=== PATIENT | female | born 1945 | race Caucasian/White ===

== ENCOUNTER → 2018-08-03 08:09 | Outpatient (CLI) | payer MEDICARE, OTHER, SELFPAY ==
[2018-08-03 09:37] LABS: Hemoglobin A1c 7.3 % (4.2-6.3)
[2018-08-03 10:04] LABS: ALB/GLOB Ratio 0.9 RATIO (0.9-2.4); AST(SGOT) 17 U/L (15-37); Alanine Aminotransfer ALT/SGPT 20 U/L (13-56); Albumin, Serum 3.6 g/dL (3.2-5.0); Alkaline Phosphatase 85 U/L (45-117); Anion Gap 10 (5-15); BUN 20 mg/dL (7-18); BUN/Creat Ratio 19.2 RATIO (10-20); Chloride 97 mmol/L (98-107); Cholesterol 151 mg/dL (200); Creatinine, Serum 1.04 mg/dL (0.55-1.02); EST Glomerular Filtration Rate 55 mL/min (>60); Est Glom Filt Rate - Afr Amer 67 mL/min (>60); Globulin 4.1 g/dL (2.2-4.2); Glucose 189 mg/dL (74-106); High Density Lipoprotein 61 mg/dL; Potassium 4.4 mmol/L (3.5-5.1); Protein, Total 7.7 g/dL (6.4-8.2); Sodium Level 135 mmol/L (136-145); Triglycerides 162 mg/dL; Very Low Density Lipoprotein 32 mg/dL (5-40)
== END ==
PROVIDERS: Family Provider Preventive Medicine Occupational Medicine; PCP Preventive Medicine Occupational Medicine; Referring Provider Preventive Medicine Occupational Medicine; Visit Provider Preventive Medicine Occupational Medicine
DX: E78.5 Hyperlipidemia, unspecified (principal); E11.9 Type 2 diabetes mellitus without complications; I10 Essential (primary) hypertension
CPT/HCPCS: 36415; 80053; 80061; 83036

== ENCOUNTER → 2018-08-27 09:27 | Outpatient (CLI) | payer MEDICARE, OTHER, SELFPAY ==
--- NOTE | 2018-08-27 09:50 | RAD_ITS ---
STUDY: X-RAY - ESOPHAGUS (BARIUM SWALLOW) WITH FLUOROSCOPY REASON FOR EXAM: Female, 73 years old. This patient. TECHNIQUE: 12 view(s) of the esophagus were obtained following swallowing of barium. FLUOROSCOPY TIME (if supplied): (0:47) minutes/seconds COMPARISON: Comparison is made with prior examination dated February 13, 2017. FINDINGS: There is no demonstrated esophageal foreign body. There is no demonstrated stricture or mucosal abnormality. Normal gastroesophageal junction, without a demonstrated hiatal hernia. The patient ingested a 12 mm tablet of barium without any difficulty. There is atherosclerotic calcification of the aortic arch with tortuosity of the descending aorta. Normal visualized pulmonary parenchyma. Normal visualized osseous structures of the thorax. RAD/Esophagus Only IMPRESSION: Normal plain film x-ray examination (barium swallow) of the esophagus. Electronically Signed: Holden Cruz MD at 14:11 EST Tel [phone], Service support ,
== END ==
PROVIDERS: Family Provider Preventive Medicine Occupational Medicine; PCP Preventive Medicine Occupational Medicine; Referring Provider Internal Medicine Gastroenterology; Visit Provider Internal Medicine Gastroenterology
DX: R13.10 Dysphagia, unspecified (principal)
CPT/HCPCS: 74220

== ENCOUNTER → 2018-10-26 07:43 | Outpatient (CLI) | payer MEDICARE, OTHER, SELFPAY ==
--- NOTE | 2018-10-26 17:30 | MRI_ITS ---
STUDY: MRI BRAIN WITHOUT CONTRAST REASON FOR EXAM: Female, 73 years old. Confusion and headaches for 2 months TECHNIQUE: Standardized multiplanar fat and water weighted pulse sequences were obtained. COMPARISON: January 09, 2012 FINDINGS: Mild atrophy and minor periventricular white matter ischemic changes without evidence for acute infarct.. Normal bilateral basal ganglia. Normal thalami. There is no extra-axial fluid accumulation. Normal flow voids within the major intracranial circulation suggesting patency by spin echo criteria. Normal sella turcica, pituitary gland, infundibular stalk, optic chiasm and hypothalamus. Normal tectal plate and pineal gland. Normal midbrain, bria and medulla. Normal cerebellum. Normal basal cisterns. Normal bilateral temporal bones. Normal bilateral internal auditory canals. Postsurgical changes of the orbits.. Minor mucosal thickening of the ethmoid air cells bilaterally. Incidental finding of mild mucosal thickening of the petrous apex Normal visualized soft tissue structures. Normal visualized upper cervical spine. No significant changes since prior study MRI/Brain without Contrast IMPRESSION: Minor periventricular white matter ischemic changes without evidence for acute infarct. Electronically Signed: Todd Jain MD at 18:29 EST , Service support ,
== END ==
PROVIDERS: Family Provider Preventive Medicine Occupational Medicine; PCP Preventive Medicine Occupational Medicine; Referring Provider Preventive Medicine Occupational Medicine; Visit Provider Preventive Medicine Occupational Medicine
DX: R41.0 Disorientation, unspecified (principal)
CPT/HCPCS: 70551

== ENCOUNTER → 2019-11-09 08:21 | Outpatient (CLI) | payer MEDICARE, OTHER, SELFPAY ==
[2019-11-09 09:12] LABS: Hematocrit 37.3 % (37-47); Hemoglobin 11.2 g/dL (12.0-15.0); Mean Corpuscular Hgb 30.4 pg (27.0-32.0); Mean Corpuscular Volume 101.1 fL (81-99); Mean Platelet Vol. 10.2 fl (6.2-12.0); Platelet Count 206 K/mm3 (150-450); RBC Distribution Width SD 51.6 fl (35.1-43.9); Red Blood Count 3.69 M/mm3 (4.2-5.4); White Blood Count 5.1 K/mm3 (4.4-11.0)
[2019-11-09 09:53] LABS: Hemoglobin A1c 6.4 % (4.2-6.3)
[2019-11-09 09:54] LABS: ALB/GLOB Ratio 0.9 RATIO (0.9-2.4); AST(SGOT) 12 U/L (15-37); Alanine Aminotransfer ALT/SGPT 14 U/L (13-56); Albumin, Serum 3.6 g/dL (3.2-5.0); Alkaline Phosphatase 75 U/L (45-117); Anion Gap 8 (5-15); BUN 39 mg/dL (7-18); BUN/Creat Ratio 16.5 RATIO (10-20); Calcium,Total 9.3 mg/dL (8.5-10.1); Chloride 107 mmol/L (98-107); Cholesterol 137 mg/dL (200); Creatinine, Serum 2.36 mg/dL (0.55-1.02); EST Glomerular Filtration Rate 21 mL/min (>60); Est Glom Filt Rate - Afr Amer 26 mL/min (>60); Globulin 3.8 g/dL (2.2-4.2); Glucose 73 mg/dL (74-106); High Density Lipoprotein 58 mg/dL; Potassium 4.9 mmol/L (3.5-5.1); Protein, Total 7.4 g/dL (6.4-8.2); Sodium Level 140 mmol/L (136-145); Thyroid Stim Hormone (TSH) 3.03 uIU/mL (0.358-3.74); Triglycerides 153 mg/dL; Very Low Density Lipoprotein 31 mg/dL (5-40)
== END ==
PROVIDERS: PCP Preventive Medicine Occupational Medicine; Referring Provider Preventive Medicine Occupational Medicine; Visit Provider Preventive Medicine Occupational Medicine
DX: E11.9 Type 2 diabetes mellitus without complications (principal); E78.5 Hyperlipidemia, unspecified; I10 Essential (primary) hypertension; R53.83 Other fatigue
CPT/HCPCS: 36415; 80053; 80061; 82043; 82570; 83036; 84443; 85027

== ENCOUNTER → 2019-12-22 13:50 | Outpatient (CLI) | payer MEDICARE, OTHER, SELFPAY ==
[2019-12-22 18:09] LABS: Albumin, Serum 3.6 g/dL (3.2-5.0); BUN 23 mg/dL (7-18); BUN/Creat Ratio 10.6 RATIO (10-20); Calcium,Total 8.7 mg/dL (8.5-10.1); Chloride 98 mmol/L (98-107); Creatinine, Serum 2.16 mg/dL (0.55-1.02); EST Glomerular Filtration Rate 24 mL/min (>60); Est Glom Filt Rate - Afr Amer 29 mL/min (>60); Glucose 440 mg/dL (74-106); Phosphorus 3.5 mg/dL (2.5-4.9); Potassium 5.5 mmol/L (3.5-5.1); Sodium Level 131 mmol/L (136-145)
== END ==
PROVIDERS: PCP Preventive Medicine Occupational Medicine; Visit Provider Internal Medicine Nephrology
DX: N17.9 Acute kidney failure, unspecified (principal)
CPT/HCPCS: 36415; 80069

== ENCOUNTER → 2020-01-04 08:08 | Outpatient (CLI) | payer MEDICARE, OTHER, SELFPAY ==
--- NOTE | 2020-01-04 08:53 | US_ITS ---
STUDY: RENAL ULTRASOUND - COMPLETE REASON FOR EXAM: Female, 74 years old. ACUTE ON CHRONIC RENAL FAILURE TECHNIQUE: Ultrasound evaluation of the kidneys was performed with real-time and static currie-scale imaging. COMPARISON: None. FINDINGS: RIGHT KIDNEY: Normal location of the right kidney, which is normal in size. The right kidney measures 10.5 cm x 5 cm x 4.4 cm. There is a normal cortex of the right kidney. The renal cortex measures 1.3 cm. There is no right renal mass or cyst. There are no right renal calculi. There is no right hydronephrosis. DISTAL RIGHT URETER: There is non-visualization of the distal right ureter. There is no demonstrated right ureterovesical junction calculus. There is no demonstrated right ureteral jet. LEFT KIDNEY: Normal location of the left kidney, which is normal in size. The left kidney measures 10.7 cm x 5.7 cm x 5.0 cm. There is a normal cortex of the left kidney. The renal cortex measures 1.3 cm. There is no left renal mass or cyst. There are no left renal calculi. There is no left hydronephrosis. DISTAL LEFT URETER: There is non-visualization of the distal left ureter. There is no demonstrated left ureterovesical junction calculus. There is no demonstrated left ureteral jet. BLADDER: The urinary bladder is not adequately distended for adequate visualization. US/Kidney and Bladder IMPRESSION: Normal ultrasound of the kidneys and urinary bladder. Electronically Signed: Holden Cruz, at 10:51 EDT , Service support ,
[2020-01-04 09:26] LABS: Anion Gap 9 (5-15); BUN 27 mg/dL (7-18); BUN/Creat Ratio 12.9 RATIO (10-20); Calcium,Total 9.3 mg/dL (8.5-10.1); Chloride 94 mmol/L (98-107); EST Glomerular Filtration Rate 25 mL/min (>60); Est Glom Filt Rate - Afr Amer 30 mL/min (>60); Glucose 398 mg/dL (74-106); Potassium 4.6 mmol/L (3.5-5.1); Sodium Level 130 mmol/L (136-145)
== END ==
PROVIDERS: PCP Preventive Medicine Occupational Medicine; Referring Provider Internal Medicine Nephrology; Visit Provider Internal Medicine Nephrology
DX: N17.9 Acute kidney failure, unspecified (principal); E87.5 Hyperkalemia
CPT/HCPCS: 36415; 76770; 80048

== ENCOUNTER 2020-01-16 17:24 | Inpatient (IN) | payer MEDICARE, OTHER, SELFPAY ==
[2020-01-16] VITALS (7 sets, daily range): BP systolic 114–213; BP diastolic 79–100; PULSE 95–105; RESP 16–18; TEMP 36.5–37.1; O2SAT 93–99; BMI 30.9; BMI 30.8
[2020-01-16 18:27] LABS: Bacteria 0 SEEN /hpf (None Seen); Mucous, Urine 0 SEEN /hpf (<or=2+); Red Blood Cells-Urine 0 SEEN /hpf (0-5); White Blood Cells 0 SEEN /hpf (0-5)
[2020-01-16 18:28] LABS: Absolute Lymphocyte Count 0.93 X10^3/uL (0.83-4.51); Absolute Neutrophil Count 7.2 X10^3/uL (2.0-7.7); Basophil# 0.03 X10^3/uL; Basophil% 0.3 % (0-1); Eosinophil# 0.11 X10^3/uL; Eosinophils% 1.2 % (0-5); Hematocrit 36.1 % (37-47); Hemoglobin 11.5 g/dL (12.0-15.0); Lymphocyte # 0.93 X10^3/ul (4.0); Lymphocyte % 10.4 % (19-41); Mean Corp Hgb Conc 31.9 g/dL (32-36); Mean Corpuscular Volume 97.3 fL (81-99); Mean Platelet Vol. 10.1 fl (6.2-12.0); Monocyte# 0.64 X10^3/uL; Monocyte% 7.1 % (0-10); NRBC Flagged by Analyzer 0 % (0-5); Neutrophil # 7.21 X10^3/uL (2.7-7.7); Neutrophil % 80.6 % (47-70); Platelet Count 214 K/mm3 (150-450); RBC Distribution Width CV 12.3 % (11.6-14.6); RBC Distribution Width SD 43.8 fl (35.1-43.9); Red Blood Count 3.71 M/mm3 (4.2-5.4)
[2020-01-16 18:39] LABS: Anion Gap 8 (5-15); BUN 23 mg/dL (7-18); BUN/Creat Ratio 11.4 RATIO (10-20); Calcium,Total 8.5 mg/dL (8.5-10.1); Chloride 85 mmol/L (98-107); Creatinine, Serum 2.01 mg/dL (0.55-1.02); EST Glomerular Filtration Rate 26 mL/min (>60); Est Glom Filt Rate - Afr Amer 31 mL/min (>60); Estimated Creatinine Clearance 24.24 ml/min; Glucose 224 mg/dL (74-106); Sodium Level 121 mmol/L (136-145)
[2020-01-16 18:51] LABS: Color, Urine Yellow (Yellow); Glucose, Dipstick 100 mg/dl (Normal); Ketone-Dipstick Negative (Negative); Leukocyte Esterase-Dipstick 25 /ul (Negative); Nitrite-Dipstick Negative (Negative); Occult Blood-Urine Negative /ul (Negative); Protein-Dipstick 15 mg/dl (Negative); Specific Gravity, Urine 1.005 (1.002-1.030); Urine Bilirubin Dipstick Negative (Negative); Urine Clarity Clear (Clear); Urine Urobilinogen Normal (Normal)
--- NOTE | 2020-01-16 19:11 | ED.DCSUM_ITS ---
- ER Visit Summary Date of Service: 01/16/20 Chief Complaint: Decreased urine output History of Present Illness: The patient is a 74 F with decreased urine output for several weeks. Her PCP told her she might end up on dialysis if she has continued kidney issues. She has no other associated symptoms currently. History of hypertension, hyperlipidemia, diabetes, GERD, COPD. Physical Examination: 213/100 otherwise vitals unremarkable. Alert and oriented. No acute distress. Otherwise exam normal. Test Results: Hemoglobin 11.5, sodium 121, chloride 85, glucose 224, BUN 23, creatinine 2.01. Urinalysis micro is still pending. Emergency Department Course and Treatment: Patient presents with chronic kidney disease and decreased urine output. Her BUN and creatinine were stable but her sodium was low, 121. Her previous low was 126. She has no other associated symptoms. She will need hospitalization and further evaluation. Hospitalist was contacted. Treatment Plan: As above Disposition: Admission Impression: CKD, hyponatremia This note was generated with [employer] dictation software. It may contain incorrect words, spelling, and punctuation that were not noted in review of the chart prior to signing ED Disposition - Plan for ED Patient: Referrals: Grady Mcekon DO [Primary Care Provider] -
--- NOTE | 2020-01-16 19:14 | HP.PCM_ITS ---
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 Diabetes mellitus complication status: with kidney complications (3) Hypertension Status: Chronic Qualifiers: Hypertension type: essential hypertension Qualified Code(s): I10 - Essential (primary) hypertension (4) Depression Status: Chronic Qualifiers: Depression Type: unspecified Qualified Code(s): F32.9 - Major depressive disorder, single episode, unspecified (5) CKD stage 4 due to type 1 diabetes mellitus Status: Chronic History of Present Illness Date of Admission: 01/16/20 Chief Complaint: Poor urine output - 1 and half weeks The patient is a 74 year old F with past medical history of CKD stage IV, follows with Dr. Jane Jay in the outpatient, hypertension, type II DM, depression who comes in with complains of poor urine output noted over the past 1 and half weeks. Patient, last saw Dr. Jay in December and a renal ultrasound was negative. She comes in because she has had very little urine output today. She denied any chest pain or dizziness or shortness of breath. She has a cough which feels like her allergies. No sick contact, no fevers or respiratory symptoms such as shortness of breath. Vitals in the ED showed temperature of 98.4F, heart rate 105, blood pressure was 213/100, respiratory rate was 17, SPO2 is 93% on room air. Her WBC is 9.0, Hb 11.5, Plt 214. Sodium was 121, down from 130, Potassium 5.0, chloride 85, bicarbonate 28, BUN 23, creatinine was 2.01 which was about her baseline. UA was unremarkable except for glucosuria. Past Medical History Past Medical History (Chronic Problems): Chronic Problems Diabetes mellitus (Chronic) Hypertension (Chronic) Depression (Chronic) CKD stage 4 due to type 1 diabetes mellitus (Chronic) Allergies No Known Allergies Allergy (Verified 01/16/20 17:26) Home Medications: Ambulatory Orders Medication Instructions Recorded Aspirin [Aspirin, Baby] 81 mg PO DAILY@0800 12/27/16 Bupropion HCl [Bupropion HCl Sr] 150 mg PO BID 12/27/16 Clopidogrel Bisulfate [Clopidogrel] 75 mg PO DAILY 12/27/16 Cyanocobalamin (Vitamin B-12) 1,000 mg PO DAILY 12/27/16 [Vitamin B-12] Ferrous Sulfate 140 mg PO DAILY 12/27/16 Glimepiride [Amaryl] 2 mg PO DAILY 12/27/16 Lovastatin 40 mg PO QHS 12/27/16 Montelukast [Singulair] 10 mg PO DAILY 12/27/16 Nabumetone [Relafen] 1,500 mg PO DAILY PRN 12/27/16 Pantoprazole Sodium [Protonix] 40 mg PO DAILY 12/27/16 Pioglitazone [Actos] 30 mg PO DAILY 12/27/16 Ranitidine [Zantac] 150 mg PO DAILY 12/27/16 Tiotropium [place] [Spiriva] 1 puff INHALATION DAILY 12/27/16 Trazodone HCl 150 mg PO QHS 12/27/16 Venlafaxine HCl [Venlafaxine HCl 225 mg PO DAILY 12/27/16 ER] metFORMIN HCl [Glucophage] 1,000 mg PO BID 12/27/16 metFORMIN HCl [Glucophage] 500 mg PO 1200 12/27/16 Albuterol Inhaler [Ventolin Hfa] 1 - 2 puff INHALATION Q4H PRN PRN 12/30/16 #1 inhaler Amlodipine [Norvasc] 2.5 mg PO DAILY #30 tablet 12/30/16 Docusate Sodium [Colace] 200 mg PO BID PRN PRN #30 capsule 12/30/16 Guaifenesin [Mucinex] 1,200 mg PO BID #14 tablet 12/30/16 Lidocaine [Lidoderm Patch] 1 patch TOPICAL DAILY #7 patch 12/30/16 Oxycodone HCl/Acetaminophen 1 tablet PO Q6H PRN PRN #10 tablet 12/30/16 [Percocet 5/325] Surgical History: - - in 1967 had iud infection with removal later 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 Denies: Anorexia, Chills, Fever, Malaise, Weakness, Weight Change Eyes: Denies: Blurred vision, Cataracts, Conjunctivae Inflammation, Pain, Redn ess, Vision Change HEENT: Denies: Difficulty Hearing, Difficulty Swallowing, Head Aches, Hearing Changes, Sinus Congestion, Sinus Drainage Cardiovascular: Denies: Chest Pain, Claudication, Orthopnea, Palpitations, Paroxysmal Noc. Dyspnea Respiratory: Reports: Cough. Denies: Hemoptysis, Shortness of breath at rest, Shortness of breath upon exertion, Sputum production Gastrointestinal: Denies: Abdominal Pain, Constipation, Hematemesis, Hematochezia, Nausea, Vomiting Genitourinary: Reports: - - poor urine output. Denies: Dysuria, Frequency Musculoskeletal: Denies: Joint Pain, Joint stiffness, Joint swelling, Joint Tenderness Skin: Denies: Rash, Wounds Neurological: Denies: Difficulty swallowing, Focal weakness, Numbness, Tingling Psychiatric: Denies: Anxiety, Depression, Homicidal Ideations, Suicidal Ideations Hematologic/ Lymphatic: Denies: Easy Bruising, Easy Bleeding VTE Information - Inpt Only VTE Present on Admission: No VTE Pharm Prophylaxis ordered?: Yes Patient Problems: Active and Suspected Problems Hyponatremia (Acute) - Physical Exam Vitals/I&O's: Vital Signs Temp Pulse Resp BP Pulse Ox 98.8 F 99 18 170/79 H 99 01/16/20 18:20 01/16/20 18:20 01/16/20 18:20 01/16/20 18:20 01/16/20 18:20 Oxygen Flow Rate (L/min) 3 Oxygen Delivery Method Nasal Cannula Weight: 89.4 kg Body Mass Index (BMI) 30.9 General: Alert, Oriented x3, Cooperative, No apparent distress HEENT: Atraumatic, PERRLA, EOMI, Normocephalic Oral: Moist Mucosa Neck: Supple Lungs: Clear to auscultation, Normal air movement Cardiovascular: Regular rate, Regular Rhythm, Normal S1, Normal S2, No murmurs Abdomen: Bowel Sounds Present, Soft, Non Tender, Non-Distended, No Hepato- splenomegaly Extremities: No edema Skin: No rashes, No breakdown Musculoskeletal: No Tenderness to Palpation of Joints or Extremities Lymphatic: No Cervical, Supraclavicular, or Inguinal Adenopathy Neurological: Cranial nerves II-XII grossly intact, Neuro grossly intact Psych/Mental Status: Normal Affect, Appropriate Laboratory Results 01/16/20 18:10: Urine Color Yellow, Urine Clarity Clear, Urine pH 7.0, Ur Specific [place] 1.005, Urine Protein 15 H, Urine Glucose (UA) 100 H, Urine Ketones Negative, Urine Occult Blood Negative, Urine Nitrite Negative, Urine Bilirubin Negative, Urine Urobilinogen Normal, Ur Leukocyte Esterase 25 H, Urine RBC Pending, Urine WBC Pending, Ur Squamous Epith Cells Pending, Urine Bacteria Pending, Urine Mucus Pending 01/16/20 18:16: WBC 9.0, RBC 3.71 L, Hgb 11.5 L, Hct 36.1 L, MCV 97.3, MCH 31.0, MCHC 31.9 L, RDW Std Deviation 43.8, RDW Coeff of Tessa 12.3, Plt Count 214, MPV 10.1, Immature Gran % (Auto) 0.400, Neut % (Auto) 80.6 H, Lymph % (Auto) 10.4 L, [place] % (Auto) 7.1, Eos % (Auto) 1.2, Baso % (Auto) 0.3, Absolute Neuts (auto) 7.2, Absolute Lymphs (auto) 0.93, Nucleated RBC % 0 01/16/20 18:16: Sodium 121 L, Potassium 5.0, Chloride 85 L, Carbon Dioxide 28.0, Anion Gap 8, BUN 23 H, Creatinine 2.01 H, Estim Creat Clear Calc 24.24, Est GFR (MDRD) Af Amer 31 L, Est GFR (MDRD) Non-Af 26 L, BUN/Creatinine Ratio 11.4, Gluc ose 224 H, Calcium 8.5 Assessment/Plan All Active Problems Hyponatremia (Acute) fall with rib pain (Acute) Bronchitis (Acute) 74 year old F with past medical history of CKD stage IV, follows with Dr. Jane Jay in the outpatient, hypertension, type II DM, depression who comes in with complains of poor urine output noted over the past 1 and half weeks. 1. Hyponatremia, admitting sodium is 121; serum sodium in December 2019 was 130 Associated with poor urine output, likely hypovolemic Recent renal ultrasound was unremarkable Will check a bladder scan Will check urine sodium, urine osmolarity, urine sodium, urine creatinine 2. CKD stage IV, Cr is 2.01, about the same, Nephrology consulted 3. Hypertension, initially elevated, likely due to anxiety, Controlled during cause of stay in ED Will continue home medications 4. Type DM, will hold home meds Continue on blood glucose checks with ISS 5. Depression, controlled, continue with home medications 6. DVT PPx -Lovenox Inpatient E&M: 63428 Init Hosp L2
[2020-01-16 19:16] LABS: Squamous Epithelial Cells - UA 0-5 SEEN /hpf (5-10)
--- NOTE | 2020-01-16 19:40 | RAD_ITS ---
HISTORY: cough, hyponatremia EXAM: XR Chest 1 View: COMPARISON: December 28, 2016 FINDINGS: # of images incl. 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 Lungs are adequately expanded. Some linear airspace disease at the left lung base is similar to the previous study and likely represents scar Heart is not enlarged. No acute osseous pathology perceived. Pulmonary vascularity is distinct. No effusions. RAD/Chest 1 View (Portable) IMPRESSION: No acute cardiopulmonary disease perceived. at 1956 Reported and signed by: Sarthak Kurtz MD Electronically Signed: Sarthak Kurtz MD at 19:56 EDT Tel , Service support ,
[2020-01-16 20:36] LABS: Osmolality, Serum 269 mOsm/KG (280-301)
[2020-01-16] MEDS: 0.9% Normal Saline 1,000 ML 75 ML IV (20:39)
[2020-01-16 20:53] LABS: Urine Sodium 27 mmol/L (Not Establ.)
[2020-01-16 21:20] LABS: Osmolality, Urine 144 mOsm/KG
[2020-01-16] MEDS: traZODone 50 MG Tablet 150 MG PO (22:04)
[2020-01-16] MEDS: Insulin Lispro 100 UNIT/ML INSULN.PEN SC (22:04)
[2020-01-16] MEDS: buPROPion (SR) 150 MG Tablet.SA PO (22:04)
[2020-01-16] MEDS: Montelukast 10 MG Tablet PO (22:04)
[2020-01-16 22:41] LABS: Bedside Glucose 229 mg/dL (70-110)
[2020-01-17] VITALS (12 sets, daily range): BP systolic 142–156; BP diastolic 59–73; PULSE 78–105; RESP 14–20; TEMP 36.6–36.8; O2SAT 95–98
--- NOTE | 2020-01-17 04:34 | NURSING ---
Completed straight cath at 0300 per orders. 1500 ml urine out. Pt tolerated procedure well. Raina,RN
[2020-01-17 06:04] LABS: Absolute Lymphocyte Count 1.26 X10^3/uL (0.83-4.51); Absolute Neutrophil Count 4.4 X10^3/uL (2.0-7.7); Basophil# 0.02 X10^3/uL; Basophil% 0.3 % (0-1); Eosinophil# 0.16 X10^3/uL; Eosinophils% 2.4 % (0-5); Hematocrit 34.6 % (37-47); Hemoglobin 11.2 g/dL (12.0-15.0); Lymphocyte # 1.26 X10^3/ul (4.0); Lymphocyte % 19.2 % (19-41); Mean Corp Hgb Conc 32.4 g/dL (32-36); Mean Corpuscular Hgb 31.5 pg (27.0-32.0); Mean Corpuscular Volume 97.2 fL (81-99); Mean Platelet Vol. 10.1 fl (6.2-12.0); Monocyte# 0.69 X10^3/uL; Monocyte% 10.5 % (0-10); NRBC Flagged by Analyzer 0 % (0-5); Neutrophil # 4.39 X10^3/uL (2.7-7.7); Neutrophil % 67.1 % (47-70); Platelet Count 193 K/mm3 (150-450); RBC Distribution Width CV 12.2 % (11.6-14.6); RBC Distribution Width SD 43.9 fl (35.1-43.9); Red Blood Count 3.56 M/mm3 (4.2-5.4); White Blood Count 6.6 K/mm3 (4.4-11.0)
[2020-01-17] MEDS: Insulin Lispro 100 UNIT/ML INSULN.PEN SC ×4 (06:31→22:39)
[2020-01-17 06:33] LABS: ALB/GLOB Ratio 0.9 RATIO (0.9-2.4); AST(SGOT) 17 U/L (15-37); Alanine Aminotransfer ALT/SGPT 14 U/L (13-56); Alkaline Phosphatase 97 U/L (45-117); Anion Gap 7 (5-15); BUN 22 mg/dL (7-18); BUN/Creat Ratio 12.9 RATIO (10-20); Calcium,Total 8.2 mg/dL (8.5-10.1); Chloride 96 mmol/L (98-107); EST Glomerular Filtration Rate 31 mL/min (>60); Est Glom Filt Rate - Afr Amer 38 mL/min (>60); Estimated Creatinine Clearance 28.66 ml/min; Globulin 3.4 g/dL (2.2-4.2); Glucose 172 mg/dL (74-106); Potassium 4.2 mmol/L (3.5-5.1); Protein, Total 6.4 g/dL (6.4-8.2); Sodium Level 130 mmol/L (136-145)
[2020-01-17 06:35] LABS: Bedside Glucose 180 mg/dL (70-110)
[2020-01-17] MEDS: Ipratropium 0.5 MG/2.5 ML SOLUTION INHALATION ×3 (07:16→18:52)
[2020-01-17] MEDS: Ferrous Sulfate 325 MG Tablet 650 MG PO (08:22)
[2020-01-17] MEDS: Aspirin 81 MG TAB.CHEW PO (08:22)
[2020-01-17] MEDS: Lactulose 20 GM/30 ML UDC 30 GM PO ×2 (09:35→11:03)
[2020-01-17] MEDS: 0.9% Normal Saline 1,000 ML 75 ML IV (09:38)
[2020-01-17] MEDS: Venlafaxine XR 75 MG Capsule 225 MG PO (09:38)
[2020-01-17] MEDS: Enoxaparin 30 MG/0.3 ML Syringe SC (09:38)
[2020-01-17] MEDS: amLODIPine 2.5 MG Tablet PO (09:38)
[2020-01-17] MEDS: Clopidogrel Bisulfate 75 MG Tablet PO (09:39)
[2020-01-17] MEDS: buPROPion (SR) 150 MG Tablet.SA PO ×2 (09:39→22:40)
[2020-01-17] MEDS: Cyanocobalamin 500 MCG Tablet 1000 MCG PO (09:39)
--- NOTE | 2020-01-17 10:13 | PN_ITS ---
Patient Problems: Active and Suspected Problems Hyponatremia (Acute) Subjective: Patient was seen and examined today, nursing approached me today and stated that the patient was retaining urine again, I have decided to place a Bangura in the patient and place her on Flomax. Patient states she drinks a great deal of water at home-she indicated to this examiner at least 6-24 ounce bottles of water. Patient's sodium today was 130, creatinine is now 1.7. - Physical Exam Vitals/I&O's: Vital Signs Temp Pulse Resp BP Pulse Ox 98.0 F 93 16 156/63 H 98 01/17/20 08:20 01/17/20 08:20 01/17/20 08:20 01/17/20 08:20 01/17/20 08:20 Oxygen Flow Rate (L/min) 3 Oxygen Delivery Method Nasal Cannula Weight: 87.3 kg Body Mass Index (BMI) 30.8 Intake and Output for Last 24 Hours 01/15/20 01/16/20 01/17/20 23:59 23:59 23:59 Intake Total 480 / 480 1213.75 / 1213.75 Output Total 300 / 300 1900 / 1900 Balance 180 / 180 -686.25 / -686.25 General: Alert, Oriented x3, Cooperative, No apparent distress, Well developed HEENT: Atraumatic, PERRLA, EOMI, Normocephalic Oral: Moist Mucosa Neck: Supple, No JVD, Trachea Midline, Thyroid Normal Size and Texture Lungs: Clear to auscultation, Normal air movement, No rhonchi, No wheeze Cardiovascular: Regular rate, Regular Rhythm, Normal S1, Normal S2, No murmurs, PMI Normal, No rub noted, No Gallop Abdomen: Bowel Sounds Present, Soft, Non Tender, Non-Distended Extremities: No clubbing, No cyanosis, No edema, Capillary Refill Less than 3 Seconds Skin: No rashes, No breakdown Musculoskeletal: No Tenderness to Palpation of Joints or Extremities Neurological: Cranial nerves II-XII grossly intact, Neuro grossly intact, Sensory exam intact to light touch and pain, Coordination normal Psych/Mental Status: Normal Affect, Appropriate, Alert and oriented to time, place, person, mood and affect Laboratory Results 01/16/20 18:10: Urine Color Yellow, Urine Clarity Clear, Urine pH 7.0, Ur Specific [place] 1.005, Urine Protein 15 H, Urine Glucose (UA) 100 H, Urine Ketones Negative, Urine Occult Blood Negative, Urine Nitrite Negative, Urine Bilirubin Negative, Urine Urobilinogen Normal, Ur Leukocyte Esterase 25 H, Urine RBC 0 SEEN, Urine WBC 0 SEEN, Ur Squamous Epith Cells 0-5 SEEN, Urine Bacteria 0 SEEN, Urine Mucus 0 SEEN 01/16/20 18:16: WBC 9.0, RBC 3.71 L, Hgb 11.5 L, Hct 36.1 L, MCV 97.3, MCH 31.0, MCHC 31.9 L, RDW Std Deviation 43.8, RDW Coeff of Tessa 12.3, Plt Count 214, MPV 10.1, Immature Gran % (Auto) 0.400, Neut % (Auto) 80.6 H, Lymph % (Auto) 10.4 L, [place] % (Auto) 7.1, Eos % (Auto) 1.2, Baso % (Auto) 0.3, Absolute Neuts (auto) 7.2, Absolute Lymphs (auto) 0.93, Nucleated RBC % 0 01/16/20 18:16: Sodium 121 L, Potassium 5.0, Chloride 85 L, Carbon Dioxide 28.0, Anion Gap 8, BUN 23 H, Creatinine 2.01 H, Estim Creat Clear Calc 24.24, Est GFR (MDRD) Af Amer 31 L, Est GFR (MDRD) Non-Af 26 L, BUN/Creatinine Ratio 11.4, Glucose 224 H, Calcium 8.5 01/16/20 18:16: Serum Osmolality 269 L 01/16/20 20:33: Ur Random Sodium 27 01/16/20 20:33: Urine Osmolality 144, Urine Creatinine 16.30 01/16/20 22:01: POC Glucose 229 H 01/17/20 05:30: WBC 6.6, RBC 3.56 L, Hgb 11.2 L, Hct 34.6 L, MCV 97.2, MCH 31.5, MCHC 32.4, RDW Std Deviation 43.9, RDW Coeff of [place] 12.2, Plt Count 193, MPV 10.1, Immature Gran % (Auto) 0.500, Neut % (Auto) 67.1, Lymph % (Auto) 19.2, [place] % (Auto) 10.5 H, Eos % (Auto) 2.4, Baso % (Auto) 0.3, Absolute Neuts (auto) 4.4, Absolute Lymphs (auto) 1.26, Nucleated RBC % 0 01/17/20 05:30: Sodium 130 L, Potassium 4.2, Chloride 96 L, Carbon Dioxide 27.0, Anion Gap 7, BUN 22 H, Creatinine 1.70 H, Estim Creat Clear Calc 28.66, Est GFR (MDRD) Af Amer 38 L, Est GFR (MDRD) Non-Af 31 L, BUN/Creatinine Ratio 12.9, Glucose 172 H, Calcium 8.2 L, Total Bilirubin 0.20, AST 17, ALT 14, Alkaline Phosphatase 97, Total Protein 6.4, Albumin 3.0 L, Globulin 3.4, Albumin/Globulin Ratio 0.9 01/17/20 06:30: POC Glucose 180 H Current Medications Acetaminophen (Tylenol) 650 mg PO Q6H PRN PRN PRN Reason: Pain Score 1-10/Temp > 100.7 F Amlodipine Besylate (Norvasc) 2.5 mg PO DAILY [facility] Last Admin: 01/17/20 09:38 Dose: 2.5 mg Documented by: Aspirin (Aspirin, Baby) 81 mg PO DAILY@0800 [facility] Last Admin: 01/17/20 08:22 Dose: 81 mg Documented by: Bupropion HCl (Wellbutrin Sr (150mg Tablets)) 150 mg PO BID [facility] Last Admin: 01/17/20 09:39 Dose: 150 mg Documented by: Clopidogrel Bisulfate (Plavix) 75 mg PO DAILY [facility] Last Admin: 01/17/20 09:39 Dose: 75 mg Documented by: Cyanocobalamin (Vitamin B12) 1,000 mcg PO DAILY [facility] Last Admin: 01/17/20 09:39 Dose: 1,000 mcg Documented by: Dextrose (D50w Syringe) 0 gm IV X1 PRN; Protocol PRN Reason: Hypoglycemia Enoxaparin Sodium (Lovenox) 30 mg SC DAILY [facility] Last Admin: 01/17/20 09:38 Dose: 30 mg Documented by: Ferrous Sulfate (Ferrous Sulfate) 650 mg PO DAILYCM [facility] Last Admin: 01/17/20 08:22 Dose: 650 mg Documented by: Glucagon () 1 mg IM .X1 PRN PRN Reason: Hypoglycemia Sodium Chloride () 1,000 mls @ 75 mls/hr IV .[id number] [facility] Stop: 01/17/20 15:46 Last Admin: 01/17/20 09:38 Dose: 75 mls/hr Documented by: Insulin Human Lispro (Humalog Kwikpen (Bkc)) 0 unit SC ACHS [facility]; Protocol Last Admin: 01/17/20 06:31 Dose: 1 units Documented by: Ipratropium [place] (Atrovent) 0.5 mg INHALATION Q6HWA.RT [facility] Last Admin: 01/17/20 07:16 Dose: 0.5 mg Documented by: Lactulose (Chronulac, Cephulac) 30 gm PO X1 ONE Stop: 01/17/20 11:31 Montelukast Sodium (Singulair) 10 mg PO QHS [facility] Last Admin: 01/16/20 22:04 Dose: 10 mg Documented by: Ondansetron HCl (Zofran) 4 mg IV Q8H PRN PRN PRN Reason: NAUSEA/VOMITING Sodium Chloride () 10 - 40 ml IV UD PRN PRN Reason: SALINE FLUSH Tamsulosin HCl (Flomax) 0.8 mg PO DAILY@1730 [facility] Trazodone HCl (Desyrel) 150 mg PO QHS [facility] Last Admin: 01/16/20 22:04 Dose: 150 mg Documented by: Venlafaxine HCl (Effexor Xr) 225 mg PO DAILY [facility] Last Admin: 01/17/20 09:38 Dose: 225 mg Documented by: Medical Necessity - Tobacco Use Smoking Status: Former smoker Assessment/Plan All Active Problems Hyponatremia (Acute) fall with rib pain (Resolved) Bronchitis (Resolved) #1 hyponatremia-possibly secondary to excessive water intake, continue present treatment at this time, nephrology will be seeing patient #2 chronic kidney disease stage III secondary to type 2 diabetes #3 type 2 diabetes-continue to monitor blood sugars #4 cerebrovascular disease-patient states that she has had a past history of a stroke, patient takes Plavix and aspirin #5 urinary retention-etiology unclear, I have placed the patient on Flomax, her Bangura will remain in at this time #6 chronic depression #7 chronic hypoxic respiratory failure secondary to COPD #8 COPD Inpatient E&M: [id number] [facility] Hosp L2
[2020-01-17 11:40] LABS: Bedside Glucose 434 mg/dL (70-110)
--- NOTE | 2020-01-17 11:56 | PCM.CONS.R ---
Consultation - Renal 01/17/20 PCP/ Referring MD: Requesting physician: Dr Ribeiro Primary care physician: Grady Mckeon DO Reason for Consultation:: hyponatremia, BENITO on ckd stage 3 - History of Present Illness History of Present Illness: The patient is a 74 year old F seen on initial consult in office on 12/22/19 for BENITO on CKD stage 3 admitted for decreased urine output for 4-5 days prior to admit. She has baseline creatinine 1.0 in 2018 increased to 2.36 on 11/09/19. Renal US from 01/05 did not show hydronephrosis. Sugars were elevated as outpt with thirst, urinary frequency, blurred vision. She was instructed to stop her nabumetone and meformin and f/u with pcp regarding elevatede sugars. Sodium was 130 on 01/03 with BS 398. Sodium down to 121 on admit improved to 130 today with saline drip. She admit to burning with urination. Denied fever, chills, change in appetite. Denies cough, shortness of breath but wears portable oxygen chronically. She has DM2, HTN, HPL, COPD and TIA x3. Her memory is poor. Creatinine on admit 2.0 down to 1.7 today with iv hydration. She has an indwelling bernstein for high residual of 1500cc with straight cath urine. - Allergies Allergies: Allergies No Known Allergies Allergy (Verified 01/16/20 17:26) - Current Medications Current Medications: Current Medications Acetaminophen (Tylenol) 650 mg PO Q6H PRN PRN PRN Reason: Pain Score 1-10/Temp > 100.7 F Amlodipine Besylate (Norvasc) 2.5 mg PO DAILY [facility] Last Admin: 01/17/20 09:38 Dose: 2.5 mg Documented by: Aspirin (Aspirin, Baby) 81 mg PO DAILY@0800 [facility] Last Admin: 01/17/20 08:22 Dose: 81 mg Documented by: Bupropion HCl (Wellbutrin Sr (150mg Tablets)) 150 mg PO BID [facility] Last Admin: 01/17/20 09:39 Dose: 150 mg Documented by: Clopidogrel Bisulfate (Plavix) 75 mg PO DAILY [facility] Last Admin: 01/17/20 09:39 Dose: 75 mg Documented by: Cyanocobalamin (Vitamin B12) 1,000 mcg PO DAILY [facility] Last Admin: 01/17/20 09:39 Dose: 1,000 mcg Documented by: Dextrose (D50w Syringe) 0 gm IV X1 PRN; Protocol PRN Reason: Hypoglycemia Enoxaparin Sodium (Lovenox) 30 mg SC DAILY [facility] Last Admin: 01/17/20 09:38 Dose: 30 mg Documented by: Ferrous Sulfate (Ferrous Sulfate) 650 mg PO DAILYCM [facility] Last Admin: 01/17/20 08:22 Dose: 650 mg Documented by: Glucagon () 1 mg IM .X1 PRN PRN Reason: Hypoglycemia Sodium Chloride () 1,000 mls @ 75 mls/hr IV .[id number] [facility] Stop: 01/17/20 15:46 Last Admin: 01/17/20 09:38 Dose: 75 mls/hr Documented by: Insulin Human Lispro (Humalog Kwikpen (Bkc)) 0 unit SC ACHS [facility]; Protocol Last Admin: 01/17/20 11:02 Dose: 4 units Documented by: Ipratropium [place] (Atrovent) 0.5 mg INHALATION Q6HWA.RT [facility] Last Admin: 01/17/20 07:16 Dose: 0.5 mg Documented by: Montelukast Sodium (Singulair) 10 mg PO QHS [facility] Last Admin: 01/16/20 22:04 Dose: 10 mg Documented by: Ondansetron HCl (Zofran) 4 mg IV Q8H PRN PRN PRN Reason: NAUSEA/VOMITING Sodium Chloride () 10 - 40 ml IV UD PRN PRN Reason: SALINE FLUSH Tamsulosin HCl (Flomax) 0.8 mg PO DAILY@1730 [facility] Trazodone HCl (Desyrel) 150 mg PO QHS [facility] Last Admin: 01/16/20 22:04 Dose: 150 mg Documented by: Venlafaxine HCl (Effexor Xr) 225 mg PO DAILY [facility] Last Admin: 01/17/20 09:38 Dose: 225 mg Documented by: - Past Medical History Past Medical History (Chronic Problems): Chronic Problems Diabetes mellitus (Chronic) Hypertension (Chronic) Depression (Chronic) CKD stage 4 due to type 1 diabetes mellitus (Chronic) - Past Surgical History Surgical History: - - in 1968 had iud infection with removal later - Social History Smoking Status: Former smoker - Family History Maternal History Items: Diabetes, Heart Disease Sibling History Items: - - sister with back cancer Paternal History Items: Diabetes, Heart Disease Review of Systems Constitutional: Reports: Weakness. Denies: Anorexia, Chills, Fever Eyes: Reports: Vision Change - recent blurred vision with elevated sugars HEENT: Denies: Head Aches Cardiovascular: Denies: Chest Pain, Syncope Respiratory: Reports: - - wears portable oxygen chronically. Denies: Cough, Shortness of Breath Gastrointestinal: Denies: Abdominal Pain, Nausea, Vomiting Genitourinary: Reports: Dysuria, - - decreased urine output Musculoskeletal: Reports: - - no swelling Skin: Denies: Rash Neurological: Reports: - - hx TIA. Denies: Tremor, Seizures Psychiatric: Reports: Anxiety, Depression Hematologic/ Lymphatic: Reports: Anemia Patient Problems: Active and Suspected Problems Hyponatremia (Acute) - Physical Exam Vitals/I&O's: Vital Signs Temp Pulse Resp BP Pulse Ox 98.0 F 93 16 156/63 H 98 01/17/20 08:20 01/17/20 08:20 01/17/20 08:20 01/17/20 08:20 01/17/20 08:20 Oxygen Flow Rate (L/min) 4 Oxygen Delivery Method Nasal Cannula Weight: 87.3 kg Body Mass Index (BMI) 30.8 Intake and Output for Last 24 Hours 01/15/20 01/16/20 01/17/20 23:59 23:59 23:59 Intake Total 480 / 480 1213.75 / 1213.75 Output Total 300 / 300 1900 / 1900 Balance 180 / 180 -686.25 / -686.25 General: Alert, Oriented x3, Cooperative, No apparent distress HEENT: PERRLA, EOMI Lungs: Clear to auscultation Cardiovascular: Regular rate Abdomen: Bowel Sounds Present, Soft, Non Tender, Non-Distended Extremities: No edema Laboratory Results 01/16/20 18:10: Urine Color Yellow, Urine Clarity Clear, Urine pH 7.0, Ur Specific [place] 1.005, Urine Protein 15 H, Urine Glucose (UA) 100 H, Urine Ketones Negative, Urine Occult Blood Negative, Urine Nitrite Negative, Urine Bilirubin Negative, Urine Urobilinogen Normal, Ur Leukocyte Esterase 25 H, Urine RBC 0 SEEN, Urine WBC 0 SEEN, Ur Squamous Epith Cells 0-5 SEEN, Urine Bacteria 0 SEEN, Urine Mucus 0 SEEN 01/16/20 18:16: WBC 9.0, RBC 3.71 L, Hgb 11.5 L, Hct 36.1 L, MCV 97.3, MCH 31.0, MCHC 31.9 L, RDW Std Deviation 43.8, RDW Coeff of Tessa 12.3, Plt Count 214, MPV 10.1, Immature Gran % (Auto) 0.400, Neut % (Auto) 80.6 H, Lymph % (Auto) 10.4 L, [place] % (Auto) 7.1, Eos % (Auto) 1.2, Baso % (Auto) 0.3, Absolute Neuts (auto) 7.2, Absolute Lymphs (auto) 0.93, Nucleated RBC % 0 01/16/20 18:16: Sodium 121 L, Potassium 5.0, Chloride 85 L, Carbon Dioxide 28.0, Anion Gap 8, BUN 23 H, Creatinine 2.01 H, Estim Creat Clear Calc 24.24, Est GFR (MDRD) Af Amer 31 L, Est GFR (MDRD) Non-Af 26 L, BUN/Creatinine Ratio 11.4, Glucose 224 H, Calcium 8.5 01/16/20 18:16: Serum Osmolality 269 L 01/16/20 20:33: Ur Random Sodium 27 01/16/20 20:33: Urine Osmolality 144, Urine Creatinine 16.30 01/16/20 22:01: POC Glucose 229 H 01/17/20 05:30: WBC 6.6, RBC 3.56 L, Hgb 11.2 L, Hct 34.6 L, MCV 97.2, MCH 31.5, MCHC 32.4, RDW Std Deviation 43.9, RDW Coeff of [place] 12.2, Plt Count 193, MPV 10.1, Immature Gran % (Auto) 0.500, Neut % (Auto) 67.1, Lymph % (Auto) 19.2, [place] % (Auto) 10.5 H, Eos % (Auto) 2.4, Baso % (Auto) 0.3, Absolute Neuts (auto) 4.4, Absolute Lymphs (auto) 1.26, Nucleated RBC % 0 01/17/20 05:30: Sodium 130 L, Potassium 4.2, Chloride 96 L, Carbon Dioxide 27.0, Anion Gap 7, BUN 22 H, Creatinine 1.70 H, Estim Creat Clear Calc 28.66, Est GFR (MDRD) Af Amer 38 L, Est GFR (MDRD) Non-Af 31 L, BUN/Creatinine Ratio 12.9, Glucose 172 H, Calcium 8.2 L, Total Bilirubin 0.20, AST 17, ALT 14, Alkaline Phosphatase 97, Total Protein 6.4, Albumin 3.0 L, Globulin 3.4, Albumin/Globulin Ratio 0.9 01/17/20 06:30: POC Glucose 180 H 01/17/20 11:00: POC Glucose 434 H Current Medications Acetaminophen (Tylenol) 650 mg PO Q6H PRN PRN PRN Reason: Pain Score 1-10/Temp > 100.7 F Amlodipine Besylate (Norvasc) 2.5 mg PO DAILY [facility] Last Admin: 01/17/20 09:38 Dose: 2.5 mg Documented by: Aspirin (Aspirin, Baby) 81 mg PO DAILY@0800 [facility] Last Admin: 01/17/20 08:22 Dose: 81 mg Documented by: Bupropion HCl (Wellbutrin Sr (150mg Tablets)) 150 mg PO BID [facility] Last Admin: 01/17/20 09:39 Dose: 150 mg Documented by: Clopidogrel Bisulfate (Plavix) 75 mg PO DAILY [facility] Last Admin: 01/17/20 09:39 Dose: 75 mg Documented by: Cyanocobalamin (Vitamin B12) 1,000 mcg PO DAILY [facility] Last Admin: 01/17/20 09:39 Dose: 1,000 mcg Documented by: Dextrose (D50w Syringe) 0 gm IV X1 PRN; Protocol PRN Reason: Hypoglycemia Enoxaparin Sodium (Lovenox) 30 mg SC DAILY [facility] Last Admin: 01/17/20 09:38 Dose: 30 mg Documented by: Ferrous Sulfate (Ferrous Sulfate) 650 mg PO DAILYCM [facility] Last Admin: 01/17/20 08:22 Dose: 650 mg Documented by: Glucagon () 1 mg IM .X1 PRN PRN Reason: Hypoglycemia Sodium Chloride () 1,000 mls @ 75 mls/hr IV .[id number] [facility] Stop: 01/17/20 15:46 Last Admin: 01/17/20 09:38 Dose: 75 mls/hr Documented by: Insulin Human Lispro (Humalog Kwikpen (Bkc)) 0 unit SC ACHS [facility]; Protocol Last Admin: 01/17/20 11:02 Dose: 4 units Documented by: Ipratropium [place] (Atrovent) 0.5 mg INHALATION Q6HWA.RT [facility] Last Admin: 01/17/20 07:16 Dose: 0.5 mg Documented by: Montelukast Sodium (Singulair) 10 mg PO QHS [facility] Last Admin: 01/16/20 22:04 Dose: 10 mg Documented by: Ondansetron HCl (Zofran) 4 mg IV Q8H PRN PRN PRN Reason: NAUSEA/VOMITING Sodium Chloride () 10 - 40 ml IV UD PRN PRN Reason: SALINE FLUSH Tamsulosin HCl (Flomax) 0.8 mg PO DAILY@1730 [facility] Trazodone HCl (Desyrel) 150 mg PO QHS [facility] Last Admin: 01/16/20 22:04 Dose: 150 mg Documented by: Venlafaxine HCl (Effexor Xr) 225 mg PO DAILY [facility] Last Admin: 01/17/20 09:38 Dose: 225 mg Documented by: Assessment/Plan All Active Problems Hyponatremia (Acute) fall with rib pain (Resolved) Bronchitis (Resolved) 1. BENITO on CKD Stage 3. Creatinine improved to 1.7 with iv hydration. off metformin and NSAID. Episode of high residual with straight cath urine 1500cc. Started on flomax 0.8mg daily. Repeat labs in am. Renal US on 01/03 without hydro and normal size kidneys. 2. Hyponatremia with urine sodium 27 on normal saline. Sodium improved from 121 to 130 today. Likely due to pseudohyponatremia from elevated sugars and urinary retention. 3. DM2 remain off metformin due to CKD 4. HTN stable on amlodipine. Currently off lisinopril. 6. Anemia hgb stable
--- NOTE | 2020-01-17 12:15 | CASEMGMT ---
MIRZA HODGES assessment: Face to Face with patient for initial transition planning/care coordination assessment. MIRZA HODGES introduced self and role at [facility], pt voices understanding and consents to assessment at this time. Pt is sitting up in bed in no distress at this time. Pt is A/Ox4 at this time and answers all questions appropriately at this time. Care providers, pharmacy, and demographics verified at this time. Presentation: Pt states no urge to [id number] and decreased output for at least the last week, pt very anxious Admitting dx: Hyponatremia PCP: Grady Mckeon Specialists: Pt states no current specialists. Preferred [facility]acy: [facility] Insurance: [facility] A/B, [employer] Prescription Benefit: [facility] D Living Will/HPOA: Pt states has LW/HPOA and is aware that they are not on file at [facility] at this time. Pt states that her , Jony Guardado, is HPOA. LNOK: Jony Guardado, Living Arrangements: Pt states lives with on main level of 2 story home and states no concerns at home at this time. Pt states is independent with ADL's. Transportation: Pt states drives self and states no transportation concerns at this time. DME/HHC: Pt states has the following DME: cane, walker, grab bars, shower chair, and 3liters home oxygen thru [facility]. pt states no need for any further DME at this time. Pt states no hx of HHC or SNF in the past. Pt states no concerns with going home at time of discharge. Pt states is retired. Pt states does not smoke or drink ETOH. Pt states no further concerns/needs at this time. CM to follow for any further discharge planning/needs. Advised pt to ask for CM if any further questions/concerns/needs arise, voices understanding. Pt Goal: Home Plan: [place] MIRZA HODGES
[2020-01-17] MEDS: Tamsulosin HCl 0.4 MG Capsule 0.8 MG PO (16:13)
[2020-01-17] MEDS: Acetaminophen 325 MG Tablet 650 MG PO (16:24)
[2020-01-17 16:51] LABS: Bedside Glucose 199 mg/dL (70-110)
[2020-01-17] MEDS: traZODone 50 MG Tablet 150 MG PO (22:39)
[2020-01-17] MEDS: Montelukast 10 MG Tablet PO (22:39)
[2020-01-17 23:16] LABS: Bedside Glucose 287 mg/dL (70-110)
[2020-01-18 02:59] VITALS: BP 142/69; PULSE 106; RESP 16; TEMP 36.6; O2SAT 95
[2020-01-18 03:04] VITALS: PULSE 101
[2020-01-18 06:05] LABS: Albumin, Serum 3.2 g/dL (3.2-5.0); BUN 16 mg/dL (7-18); BUN/Creat Ratio 9.9 RATIO (10-20); Calcium,Total 8.5 mg/dL (8.5-10.1); Chloride 98 mmol/L (98-107); Creatinine, Serum 1.61 mg/dL (0.55-1.02); EST Glomerular Filtration Rate 33 mL/min (>60); Est Glom Filt Rate - Afr Amer 40 mL/min (>60); Estimated Creatinine Clearance 30.26 ml/min; Glucose 255 mg/dL (74-106); Potassium 4.5 mmol/L (3.5-5.1); Sodium Level 131 mmol/L (136-145)
[2020-01-18] MEDS: Insulin Lispro 100 UNIT/ML INSULN.PEN SC (06:47)
[2020-01-18 06:53] VITALS: PULSE 104
[2020-01-18 07:41] VITALS: PULSE 102; RESP 18
[2020-01-18] MEDS: Ipratropium 0.5 MG/2.5 ML SOLUTION INHALATION (07:41)
--- NOTE | 2020-01-18 08:29 | DCINST_ITS ---
- Discharge Diagnoses Current Active Problems: Current Active and Chronic Problems Hyponatremia (Acute) Diabetes mellitus (Chronic) Hypertension (Chronic) Depression (Chronic) CKD stage 4 due to type 1 diabetes mellitus (Chronic) You will use the following diet at home:: Calorie/Carbohydrate Controlled (specify 1200, 1400, etc) - 1800 SAURABH Your food should be the consistency of: Regular Your liquids should be the consistency of: Regular/Thin Discharge Activity: Return to Normal Activity Weight Bearing Status: Full weight bearing Allergies/Adverse Reactions: Allergies No Known Allergies Allergy (Verified 01/16/20 17:26) Medications to take at Discharge Aspirin [Aspirin, Baby] 81 mg PO DAILY@0800 12/27/16 Bupropion HCl [Bupropion HCl Sr] 150 mg PO BID 12/27/16 Clopidogrel Bisulfate [Clopidogrel] 75 mg PO DAILY 12/27/16 Cyanocobalamin (Vitamin B-12) [Vitamin B-12] 1,000 mg PO DAILY 12/27/16 Ferrous Sulfate 140 mg PO DAILY 12/27/16 Glimepiride [Amaryl] 2 mg PO DAILY 12/27/16 Lovastatin 40 mg PO QHS 12/27/16 Montelukast [Singulair] 10 mg PO QHS 12/27/16 Tiotropium [place] [Spiriva] 1 puff INHALATION DAILY 12/27/16 Trazodone HCl 150 mg PO QHS 12/27/16 Venlafaxine HCl [Venlafaxine HCl ER] 225 mg PO DAILY 12/27/16 Albuterol Inhaler [Ventolin Hfa] 1 - 2 puff INHALATION Q4H PRN PRN #1 inhaler 12/30/16 Docusate Sodium [Colace] 200 mg PO BID PRN PRN #30 capsule 12/30/16 Amlodipine [Norvasc] 2.5 mg PO DAILY 01/16/20 Guaifenesin [Mucinex] 1,200 mg PO BID 01/16/20 Hydrocodon-Acetaminophen 5-325 1 tab PO 4X/DAY PRN 01/16/20 Montelukast [Singulair] 10 mg PO QHS tab 01/18/20 Pioglitazone [Actos] 15 mg PO DAILY@0800 #30 tab 01/18/20 Tamsulosin HCl [Flomax] 0.8 mg PO DAILY@1730 #60 cap 01/18/20 The following prescriptions were given: Pioglitazone [Actos] 15 mg PO DAILY@0800 #30 tab Transmission Status: Received by [facility]30 Tamsulosin HCl [Flomax] 0.8 mg PO DAILY@1730 #60 cap Transmission Status: Received by [facility] Primary Care Physician: Grady Mckeon DO [Primary Care Provider] - Please follow up with your Primary Care Physician in: IN 2 WEEKS Test Results: Test results from this visit will be discussed in further detail at your follow- up appointment, if applicable. Please Follow Up With: Jane Jay DO When: 1-2 WEEKS Please Follow Up With: Malik Berry MD When: NEXT WEEK DIRECTED
[2020-01-18 09:01] VITALS: BP 137/58; PULSE 101; RESP 18; TEMP 37.4; O2SAT 94
[2020-01-18] MEDS: amLODIPine 2.5 MG Tablet PO (09:06)
[2020-01-18] MEDS: Glimepiride 2 MG Tablet PO (09:06)
[2020-01-18] MEDS: Ferrous Sulfate 325 MG Tablet 650 MG PO (09:06)
[2020-01-18] MEDS: Pioglitazone Hydrochloride 15 MG Tablet PO (09:06)
[2020-01-18] MEDS: Cyanocobalamin 500 MCG Tablet 1000 MCG PO (09:06)
[2020-01-18] MEDS: Clopidogrel Bisulfate 75 MG Tablet PO (09:06)
[2020-01-18] MEDS: buPROPion (SR) 150 MG Tablet.SA PO (09:06)
[2020-01-18] MEDS: Aspirin 81 MG TAB.CHEW PO (09:06)
[2020-01-18] MEDS: Venlafaxine XR 75 MG Capsule 225 MG PO (09:06)
[2020-01-18] MEDS: Enoxaparin 30 MG/0.3 ML Syringe SC (09:07)
[2020-01-18 11:25] LABS: Bedside Glucose 244 mg/dL (70-110)
--- NOTE | 2020-01-18 17:20 | DS.PCM_ITS ---
Discharge Date and Diagnosis Date of Admission: 01/16/20 Date of Discharge: 01/18/20 - Primary Discharge Diagnosis #1 hyponatremia-etiology unknown #2 chronic kidney disease stage III secondary to type 2 diabetes #3 Acute kidney injury on a backdrop of chronic kidney disease stage III #4 cerebrovascular disease #5 urinary retention-etiology unclear #6 chronic depression #7 chronic hypoxic respiratory failure secondary to COPD #8 COPD #9 type 2 diabetes - Secondary Discharge Diagnosis Chronic Problems Diabetes mellitus (Chronic) Hypertension (Chronic) Depression (Chronic) CKD stage 4 due to type 1 diabetes mellitus (Chronic) Hospital Course and Treatment Operations: None Procedures: None Summary of Care Provided: The patient is a 74 year old F was seen in the emergency room at [facility] with complaints of decreased urinary output times several weeks. Work-up in the emergency room revealed a hemoglobin of 11.5, creatinine was elevated at 2, BUN was 23, glucose was 224, sodium was low at 121. Patient was admitted to PCU for hyponatremia and acute kidney injury on stage III chronic kidney disease. She was given IV fluids and her labs were monitored, she was seen in consultation by nephrology. The exact etiology of the hyponatremia was not definitely ascertained. Patient's sodium improved during her hospital stay, she had to have a [place] catheter placed due to urinary retention however. On 01/18/2020, patient was seen and examined: On examination she appeared in good health and spirits, she does not appear to be in any distress. Vital signs as documented. Skin warm and dry and without overt rashes. Neck without JVD, thyroid appears normal, trachea is midline, neck is supple. Lungs clear, normal air movement was noted. Heart exam notable for regular rhythm, normal sounds and absence of murmurs, rubs or gallops. Abdomen unremarkable and without evidence of organomegaly, masses, or abdominal aortic enlargement, bowel sounds are present in all 4 quadrants, no abdominal tenderness was noted. Extremities nonedematous, no cyanosis was noted, no clubbing was noted. Neuro: Cranial nerves II through XII are grossly intact, no focal motor deficits were noted, sensation to light touch and pinprick is intact, motor exam 5/5 throughout. Psych: Patient is alert and oriented x3, she does not appear anxious or depressed, she does not appear agitated. Patient appears stable for discharge on 01/18/2020, she was instructed to follow- up with urology and was discharged with a [place] catheter and a leg bag. - Physical Exam Vitals/I&O's: Vital Signs Temp Pulse Resp BP Pulse Ox 99.3 F H 101 H 18 137/58 H 94 01/18/20 09:01 01/18/20 09:01 01/18/20 09:01 01/18/20 09:01 01/18/20 09:01 Oxygen Flow Rate (L/min) 3 Oxygen Delivery Method Nasal Cannula Weight: 86.8 kg Body Mass Index (BMI) 30.8 Intake and Output for Last 24 Hours 01/16/20 01/17/20 01/18/20 23:59 23:59 23:59 Intake Total 480 / 480 2823.75 / 2823.75 760 / 760 Output Total 300 / 300 4950 / 4950 1450 / 1450 Balance 180 / 180 -2126.25 / -2126.25 -690 / -690 Microbiology Past 72 Hours 01/17/20 12:50 Urine Catheter - [place] Urine Culture - Preliminary Culture exhibits no growth. Laboratory Results 01/17/20 22:36: POC Glucose 287 H 01/18/20 05:12: Sodium 131 L, Potassium 4.5, Chloride 98, Carbon Dioxide 27.0, BUN 16, Creatinine 1.61 H, Estim Creat Clear Calc 30.26, Est GFR (MDRD) Af Amer 40 L, Est GFR (MDRD) Non-Af 33 L, BUN/Creatinine Ratio 9.9 L, Glucose 255 H, Calcium 8.5, Phosphorus 3.0, Albumin 3.2 01/18/20 06:46: POC Glucose 244 H Discharge Activity: Return to Normal Activity Weight Bearing Status: Full weight bearing Home Medications: Medications to take at Discharge Aspirin [Aspirin, Baby] 81 mg PO DAILY@0800 12/27/16 Bupropion HCl [Bupropion HCl Sr] 150 mg PO BID 12/27/16 Clopidogrel Bisulfate [Clopidogrel] 75 mg PO DAILY 12/27/16 Cyanocobalamin (Vitamin B-12) [Vitamin B-12] 1,000 mg PO DAILY 12/27/16 Ferrous Sulfate 140 mg PO DAILY 12/27/16 Glimepiride [Amaryl] 2 mg PO DAILY 12/27/16 Lovastatin 40 mg PO QHS 12/27/16 Montelukast [Singulair] 10 mg PO QHS 12/27/16 Tiotropium [place] [Spiriva] 1 puff INHALATION DAILY 12/27/16 Trazodone HCl 150 mg PO QHS 12/27/16 Venlafaxine HCl [Venlafaxine HCl ER] 225 mg PO DAILY 12/27/16 Albuterol Inhaler [Ventolin Hfa] 1 - 2 puff INHALATION Q4H PRN PRN #1 inhaler 12/30/16 Docusate Sodium [Colace] 200 mg PO BID PRN PRN #30 capsule 12/30/16 Amlodipine [Norvasc] 2.5 mg PO DAILY 01/16/20 Guaifenesin [Mucinex] 1,200 mg PO BID 01/16/20 Hydrocodon-Acetaminophen 5-325 1 tab PO 4X/DAY PRN 01/16/20 Montelukast [Singulair] 10 mg PO QHS tab 01/18/20 Pioglitazone [Actos] 15 mg PO DAILY@0800 #30 tab 01/18/20 Tamsulosin HCl [Flomax] 0.8 mg PO DAILY@1730 #60 cap 01/18/20 Following Prescrptions Were Given to Patient: Pioglitazone [Actos] 15 mg PO DAILY@0800 #30 tab Transmission Status: Received by [facility] [employer] #30 Tamsulosin HCl [Flomax] 0.8 mg PO DAILY@1730 #60 cap Transmission Status: Received by [facility] #30 Primary Care Physician: Grady Mckeon DO [Primary Care Provider] - Please follow up with your Primary Care Physician in: IN 2 WEEKS Please Follow Up With: Jane Jay DO When: 1-2 WEEKS Please Follow Up With: Grady Mckeon DO Please Follow Up With: Malik Berry MD When: NEXT WEEK DIRECTED Disposition: Home Minutes spent on discharge:: 31 Patient Condition:: Stable Medical Necessity - Tobacco Use Smoking Status: Former smoker Meaningful Use Info Meaningful Use Diagnoses (Choose all that apply): None applicable Inpatient E&M: [id number] [facility]
--- NOTE | 2020-01-19 14:49 | CASEMGMT ---
MIRZA HODGES Discharge Follow-Up Phone Call. Loli: Tal Strata: 3 Discharge Date: 01/18/20 Adm Dx: Hyponatremia Call to pt to inquire about how she has been doing since being discharged from the hospital. Pt stated, I've been doing good. No problems. Pt stated she has not picked up the new prescriptions from [facility] yet, but she plans on having someone pick those up today. She denies having any questions about any of her medications. She states someone reviewed the follow-up appts with her and she has no questions/concerns about the appts. She also denies having any questions about the discharge instructions and denies having any needs. MIRZA HODGES thanked pt for choosing [facility]. Suzette LOVE RN, CM
== END 2020-01-18 11:00 | disposition home or self-care (01) | DRG 641 ==
LOC: ED 17:53 → PCU 19:19
PROVIDERS: Internal Medicine Nephrology; Admitting Provider Internal Medicine; Emergency Provider Emergency Medicine; PCP Preventive Medicine Occupational Medicine; Visit Provider Internal Medicine
DX: E87.1 Hypo-osmolality and hyponatremia (principal); N17.9 Acute kidney failure, unspecified; J96.11 Chronic respiratory failure with hypoxia; I12.9 Hypertensive chronic kidney disease with stage 1 through stage 4 chronic kidney disease, or unspecified chronic kidney disease; E11.22 Type 2 diabetes mellitus with diabetic chronic kidney disease; N18.3 Chronic kidney disease, stage 3 (moderate); D63.1 Anemia in chronic kidney disease; I67.9 Cerebrovascular disease, unspecified; J44.9 Chronic obstructive pulmonary disease, unspecified; R33.9 Retention of urine, unspecified; E78.5 Hyperlipidemia, unspecified; K21.9 Gastro-esophageal reflux disease without esophagitis; F32.9 Major depressive disorder, single episode, unspecified; F41.9 Anxiety disorder, unspecified; Z79.02 Long term (current) use of antithrombotics/antiplatelets; Z79.84 Long term (current) use of oral hypoglycemic drugs; Z99.81 Dependence on supplemental oxygen; Z79.899 Other long term (current) drug therapy; Z87.891 Personal history of nicotine dependence; Z86.73 Personal history of transient ischemic attack (TIA), and cerebral infarction without residual deficits
CPT/HCPCS: 36415; 71045; 80048; 80053; 80069; 81001; 82570; 82962; 83930; 83935; 84300; 85025; 87086; 94640; 97161; 97166; 99284; J7030; A4216

== ENCOUNTER 2020-01-19 19:06 | Observation (INO) | payer MEDICARE, OTHER, SELFPAY ==
[2020-01-16 20:08] VITALS: BMI 30.8
[2020-01-19 19:07] VITALS: BP 198/66; PULSE 110; RESP 18; TEMP 36.7; O2SAT 90; BMI 29.7
[2020-01-19 19:36] VITALS: BP 161/66
[2020-01-19 20:28] LABS: Bacteria 0 SEEN /hpf (None Seen); Mucous, Urine 0 SEEN /hpf (<or=2+); White Blood Cells 0 SEEN /hpf (0-5)
[2020-01-19 20:36] LABS: Color, Urine Red (Yellow); Glucose, Dipstick 250 mg/dl (Normal); Ketone-Dipstick 5 mg/dl (Negative); Leukocyte Esterase-Dipstick Negative /ul (Negative); Nitrite-Dipstick Negative (Negative); Occult Blood-Urine 250 /ul (Negative); Protein-Dipstick 500 mg/dl (Negative); Urine Bilirubin Dipstick Negative (Negative); Urine Clarity Cloudy (Clear); Urine Urobilinogen Normal (Normal)
[2020-01-19 20:45] LABS: Absolute Lymphocyte Count 0.89 X10^3/uL (0.83-4.51); Basophil# 0.02 X10^3/uL; Basophil% 0.1 % (0-1); Eosinophil# 0.05 X10^3/uL; Eosinophils% 0.4 % (0-5); Hematocrit 34.3 % (37-47); Hemoglobin 10.9 g/dL (12.0-15.0); Lymphocyte # 0.89 X10^3/ul (4.0); Lymphocyte % 6.5 % (19-41); Mean Corp Hgb Conc 31.8 g/dL (32-36); Mean Corpuscular Hgb 31.6 pg (27.0-32.0); Mean Corpuscular Volume 99.4 fL (81-99); Mean Platelet Vol. 10.5 fl (6.2-12.0); Monocyte# 0.71 X10^3/uL; Monocyte% 5.2 % (0-10); NRBC Flagged by Analyzer 0 % (0-5); Neutrophil # 11.95 X10^3/uL (2.7-7.7); Neutrophil % 87.1 % (47-70); Platelet Count 204 K/mm3 (150-450); RBC Distribution Width CV 12.5 % (11.6-14.6); RBC Distribution Width SD 45.2 fl (35.1-43.9); Red Blood Count 3.45 M/mm3 (4.2-5.4); White Blood Count 13.7 K/mm3 (4.4-11.0)
[2020-01-19 20:56] LABS: Anion Gap 5 (5-15); BUN 21 mg/dL (7-18); BUN/Creat Ratio 10.9 RATIO (10-20); Calcium,Total 8.9 mg/dL (8.5-10.1); Chloride 92 mmol/L (98-107); Creatinine, Serum 1.92 mg/dL (0.55-1.02); EST Glomerular Filtration Rate 27 mL/min (>60); Est Glom Filt Rate - Afr Amer 33 mL/min (>60); Estimated Creatinine Clearance 25.38 ml/min; Glucose 296 mg/dL (74-106); Potassium 4.7 mmol/L (3.5-5.1); Sodium Level 125 mmol/L (136-145)
[2020-01-19 21:08] LABS: Amorphous Sediment 1+ URATE; Red Blood Cells-Urine > 100 SEEN /hpf (0-5); Squamous Epithelial Cells - UA 0-5 SEEN /hpf (5-10)
--- NOTE | 2020-01-19 21:52 | CT_ITS ---
STUDY: CT ABDOMEN AND PELVIS WITHOUT CONTRAST REASON FOR EXAM: Female, 74 years old. HEMATURIA, gross. Pt had bernstein catheter placed Friday. Hx of Type 1 diabetes, HTN, COPD and HLD RADIATION DOSAGE (If Supplied By Facility): CTDIvol = ( 21.87 ) mGy, DLP = ( 1516.15 ) mGycm TECHNIQUE: Transaxial images were obtained from the dome of the diaphragm to the symphysis pubis without oral contrast, and without intravenous contrast. Sagittal and coronal images were reconstructed. Individualized dose optimization techniques were used for this CT. COMPARISON: Chest radiograph 12/27/2016, prior renal ultrasound 01/04/2020. FINDINGS: There is scattered bilateral pulmonary scarring. There is a 4 mm pulmonary nodule within the right middle lobe. There is 4 mm left lower lobe pleural-based pulmonary nodule. This is a limited non-IV nonoral contrast study.. The visualized portions of the heart are within normal limits. Normal liver. Normal gallbladder and extrahepatic biliary system. Normal spleen. Normal pancreas. Normal bilateral adrenal glands. Normal right kidney. Normal left kidney. Normal visualized stomach. Normal small intestine. There is a large colonic fecal load with mild colonic distention within the cecum, ascending colon, transverse colon and proximal descending colon. The more distal colon is decompressed. The appendix is nonvisualized.. There are surgical clips in the pelvis. Moderate atherosclerotic plaques distal abdominal aorta and proximal common iliac arteries possible stenoses. Normal inferior vena cava. Normal retroperitoneum. Bernstein catheter within the bladder. Bladder is decompressed. There is fatty right inguinal hernia. Normal abdominal wall. There are significant multilevel degenerative changes lumbar spine, multilevel disc space narrowing, disc osteophyte complexes, central canal and foraminal stenosis. There is mild loss of height superior plate of L1 unchanged when compared to prior chest radiograph 12/27/2016. There are old right lower rib fractures. CT/Abdomen/Pelvis without Cont IMPRESSION: Limited non-IV and nonoral contrast study large colonic fecal load with mild colonic distention within the cecum, ascending colon, transverse colon and proximal descending colon likely secondary to fecal impaction. The more distal colon is decompressed Scattered pulmonary scarring Subcentimeter 4 mm pulmonary nodules right middle lobe and left lower lobe likely benign, six-month follow-up for stability recommended Surgical clips within the pelvis Moderate atherosclerotic plaques distal abdominal aorta and proximal common iliac arteries possible stenoses Bernstein within the catheter, the bladder is decompressed Fatty right inguinal hernia significant multilevel degenerative changes lumbar spine, multilevel disc space narrowing, disc osteophyte complexes, central canal and foraminal stenosis. There is mild loss of height superior plate of L1 unchanged when compared to prior chest radiograph 12/27/2016 Old right lower lateral rib fractures Electronically Signed: Grady Judge, at 22:37 EDT Tel , Service support ,
--- NOTE | 2020-01-19 22:01 | ED.VISSUMM ---
- ER Visit Summary Date of Service: 01/19/20 Chief Complaint: Hematuria History of Present Illness: The patient is a 74 F who presents with hematuria that began today. Patient states she was discharged from the hospital yesterday and had a catheter placed prior to being discharged. Patient states today she noted some bleeding from her catheter. Patient admits to some burning with her catheter. Patient denies any fevers or chills. Patient admits to a chronic cough but denies any shortness of breath. Patient admits to some chronic back pain. Patient denies any nausea or vomiting. Physical Examination: Vital signs are stable except for mild tachycardia of 110 and a slightly elevated blood pressure of 198/66. Patient is afebrile. Patient is in no acute distress. Oral mucosa is pink and moist. Neck is supple. Trachea is midline. There is no JVD. Heart was regular rate and rhythm. Lungs are clear and equal bilaterally. Abdomen is soft. Bowel sounds are normal. There is mild suprapubic tenderness. There is no rebound or guarding noted. Cranial nerves II through XII are intact. There are no focal motor or sensory deficits noted. Extremities are intact. There is no calf tenderness or edema. Test Results: CBC shows a leukocytosis of 13.7. Hemoglobin is 10.9 hematocrit is 34.3. Basic metabolic profile shows a sodium of 125 which is down from 131 when she was discharged. Chloride was 92. BUN was 21 and creatinine was 1.92. Urinalysis shows occult blood 250 with greater than [address] scan of the abdomen and pelvis was obtained. There is some constipation noted but there is no acute intra-abdominal process. This was interpreted by the radiologist and reviewed by myself. Emergency Department Course and Treatment: Patient was given IV fluids here. Patient was feeling better on reevaluation. However, given her increase in white blood cell count and decrease in sodium, I recommended admission to the hospital. Case was discussed with the hospitalist. Patient will be admitted for observation. Patient understood and was agreeable with the plan. All questions were answered. Disposition: Admit for observation Impression: 1. Hyponatremia 2. Leukocytosis This note was generated with [employer] software. It may contain incorrect words, spelling, and punctuation that were not noted in review of the chart prior to signing ED Disposition - Plan for ED Patient: Disposition: Acute Care Hospital [facility] Diagnosis: Hyponatremia, Leukocytosis Referrals: Grady Mckeon DO [Primary Care Provider] -
[2020-01-19] MEDS: 0.9% Normal Saline 1,000 ML 1000 ML IV (22:48)
[2020-01-19 22:55] VITALS: BP 153/102; PULSE 72; RESP 18; O2SAT 98
--- NOTE | 2020-01-19 23:05 | HP.PCM_ITS ---
Problem List (1) Hematuria Status: Acute Qualifiers: Hematuria type: unspecified type Qualified Code(s): R31.9 - Hematuria, unspecified (2) Hyponatremia Status: Acute (3) Urinary retention Status: Acute (4) Chronic constipation Status: Chronic (5) Chronic obstructive pulmonary disease (COPD) Status: Chronic Qualifiers: COPD type: unspecified COPD Qualified Code(s): J44.9 - Chronic obstructive pulmonary disease, unspecified (6) Chronic respiratory failure with hypoxia Status: Chronic (7) Former tobacco use Status: Chronic (8) CKD stage 4 due to type 1 diabetes mellitus Status: Chronic (9) Depression Status: Chronic Qualifiers: Depression Type: unspecified Qualified Code(s): F32.9 - Major depressive disorder, single episode, unspecified (10) Diabetes mellitus Status: Chronic Qualifiers: Diabetes mellitus type: type 2 Diabetes mellitus group home insulin use: without group home use Diabetes mellitus complication status: with kidney complications Chronic kidney disease stage: stage 4 (severe) (11) Hypertension Status: Chronic Qualifiers: Hypertension type: essential hypertension Qualified Code(s): I10 - Essential (primary) hypertension History of Present Illness Date of Admission: 01/19/20 Chief Complaint: Hematuria, Abdominal discomfort. The patient is a 74 y/o F w/ PMHx: Chronic Hypoxic Respiratory Failure with Chronic COPD (3L NC), Hx CVA on plavix, CKD stage IV, Chronic Hyponatremia, Chronic anemia, Obesity, Anxiety and Depression, Fe Deficiency anemia, Diabetes mellitus type II, Asthma with allergic rhinitis, HTN, HLD, GERD recently discharged 01/18/20 following evaluation for hyponatremia and BENITO on CKD stage IV with decreased urinary output with retention with bernstein catheter placed during this prior admission with onset worsening hematuria following discharge prompting return to the ED for evaluation. Patient notes chronic constipation issues and states that she has some abdominal cramping and discomfort associated with this. Work-up in the ED included T 98, heart rate initially 110 with improvement to 72, BP initially 198/66 with improvement to 153/102, respiratory rate initially 18 with 90% on 3 L nasal cannula with improvement to 98% on 3 L nasal cannula, CBC with WC 13.7, hemoglobin 10.9, platelet 204 with left shift with mild lymphopenia but absolute appropriate, BMP with sodium 125, chloride 92, BUN/creatinine 21/1.92, glucose 296, urinalysis with specific gravity 1.010, protein 500, glucose 250, ketone 5, occult blood 250, negative nitrite, negative leukocyte esterase, RBC greater than 100, 0 urine WBCs, [address] abdomen pelvis limited as a noncontrast study with large colonic fecal load with mild colonic distention within the cecum, ascending colon, transverse colon and proximal descending colon likely secondary to fecal impaction with the more distal colon decompressed, scattered pulmonary scarring with subcentimeter 4 6 mm pulmonary nodules right middle lobe and left lower lobe, surgical clips within the pelvis, moderate atherosclerotic plaques in the distal abdominal aorta and proximal common iliac arteries, Bernstein catheter in place with a decompressed bladder, fatty right inguinal hernia, significant multilevel generative disc disease in the lumbar spine with multilevel disc space narrowing, disc osteophyte complexes, central canal and foraminal stenosis, mild loss of height superior plate of L1 unchanged compared to prior, old right lower lateral rib fractures. In the ED patient ministered normal saline. Past Medical History Past Medical History (Chronic Problems): Chronic Problems Chronic obstructive pulmonary disease (COPD) (Chronic) Chronic respiratory failure with hypoxia (Chronic) Former tobacco use (Chronic) Chronic constipation (Chronic) Diabetes mellitus (Chronic) Hypertension (Chronic) Depression (Chronic) CKD stage 4 due to type 1 diabetes mellitus (Chronic) Allergies No Known Allergies Allergy (Verified 01/19/20 19:09) Home Medications: Ambulatory Orders Medication Instructions Recorded Aspirin [Aspirin, Baby] 81 mg PO DAILY@0800 12/27/16 Bupropion HCl [Bupropion HCl Sr] 150 mg PO BID 12/27/16 Clopidogrel Bisulfate [Clopidogrel] 75 mg PO DAILY 12/27/16 Cyanocobalamin (Vitamin B-12) 1,000 mg PO DAILY 12/27/16 [Vitamin B-12] Ferrous Sulfate 325 mg PO DAILY 12/27/16 Glimepiride [Amaryl] 2 mg PO DAILY 12/27/16 Lovastatin 40 mg PO QHS 12/27/16 Montelukast [Singulair] 10 mg PO QHS 12/27/16 Tiotropium [place] [Spiriva] 1 puff INHALATION DAILY 12/27/16 Trazodone HCl 150 mg PO QHS 12/27/16 Venlafaxine HCl [Venlafaxine HCl 150 mg PO DAILY 12/27/16 ER] Albuterol Inhaler [Ventolin Hfa] 1 - 2 puff INHALATION Q4H PRN PRN 12/30/16 #1 inhaler Docusate Sodium [Colace] 200 mg PO BID PRN PRN #30 capsule 12/30/16 Amlodipine [Norvasc] 2.5 mg PO DAILY 01/16/20 Guaifenesin [Mucinex] 1,200 mg PO BID 01/16/20 Hydrocodon-Acetaminophen 5-325 1 tab PO 4X/DAY PRN 01/16/20 Montelukast [Singulair] 10 mg PO QHS tab 01/18/20 Pioglitazone [Actos] 15 mg PO DAILY@0800 #30 tab 01/18/20 Tamsulosin HCl [Flomax] 0.8 mg PO DAILY@1730 #60 cap 01/18/20 Famotidine 20 mg PO BID 01/19/20 Surgical History: - - Remote history of an IUD with removal. Psychiatric History: Anxiety, Depression MARKETING COORDINATOR History: No pertinent MARKETING COORDINATOR history Lives: Spouse/ Significant Other - Patient lives at home with her . Smoking Status: Former smoker - Patient quit cigarette tobacco usage approximately 30 years prior with prior to this up to 2 pack/day cigarette tobacco usage since she was 17 years old. Tobacco Use: Non-smoker Alcohol: None Drugs: None - *Family History Maternal History Items: Diabetes, Heart Disease Sibling History Items: - - sister with back cancer Paternal History Items: Diabetes, Heart Disease Review of Systems Constitutional: Reports: Fatigue. Denies: Anorexia, Chills, Fever, Malaise, Weakness, Weight Change HEENT: Denies: Head Aches, Sinus Congestion, Sinus Drainage Cardiovascular: Denies: Chest Pain, Palpitations Respiratory: Reports: Shortness of breath upon exertion. Denies: Cough, Shortness of Breath, Shortness of breath at rest, Sputum production Gastrointestinal: Reports: Abdominal Pain, Constipation. Denies: Nausea, Vomiting Genitourinary: Reports: Hematuria. Denies: Dysuria Musculoskeletal: Reports: Joint Pain. Denies: Joint Tenderness Skin: Denies: Rash, Wounds Neurological: Denies: Numbness, Tingling, Focal weakness Psychiatric: Reports: Anxiety, Depression. Denies: Homicidal Ideations, Suicidal Ideations Hematologic/ Lymphatic: Reports: Anemia, Easy Bruising, Easy Bleeding VTE Information - Inpt Only VTE Present on Admission: No VTE Mechan Device Prophylaxis: SCD's VTE Pharm Prophylaxis ordered?: No Reason prophylaxis not ordered:: Medical Contraindication Patient Problems: Active and Suspected Problems Hematuria (Acute) Urinary retention (Acute) Subjective: Patient seated upright in ED bed, mildly fatigued appearance otherwise no acute distress. Objective: Physical Examination: General: awake, alert, oriented x 3 and cooperative, seated upright in the ED bed, no acute distress. Skin: normal color, turgor, no icterus, cyanosis. HEENT: AT/NC, EOMI, PERRLA, mildly dry MM, no carotid bruits or JVD noted. Lungs: Diminished breath sounds, greater bilateral bases, moderate effort, no rales, ronchi or wheezing. Heart: Regular rate and rhythm; no gallop, rub audible. Abdomen: soft, obese, mild generalized discomfort with palpation but no rebound or guarding, mildly hyperactive bowel sounds, not markedly distended, no HSM, Bernstein catheter in place with evident hematuria and some very small clots noted with decent urine output in the bag. Extremities: no cyanosis, clubbing, or edema. Neurological: patient awake, alert, oriented x 3; cognitive function is baseline intact; pupils equally reactive to light and accomodation; cranial nerves II- XII grossly normal, moving all 4 extremities, no focal deficits, strength mildly to moderately global decrease. Psychiatric: affect appears fatigued otherwise normal, no acute evidence of depressive or anxiety feelings. - Physical Exam Vitals/I&O's: Vital Signs Temp Pulse Resp BP Pulse Ox 98.0 F 72 18 153/102 H 98 01/19/20 19:07 01/19/20 22:55 01/19/20 22:55 01/19/20 22:55 01/19/20 22:55 Oxygen Flow Rate (L/min) 3 Oxygen Delivery Method Nasal Cannula Weight: 190 lb Body Mass Index (BMI) 29.7 Intake and Output for Last 24 Hours 01/17/20 01/18/20 01/19/20 23:59 23:59 23:59 Output Total 1500 / 1500 Balance -1500 / -1500 Laboratory Results 01/19/20 20:10: WBC 13.7 H, RBC 3.45 L, Hgb 10.9 L, Hct 34.3 L, MCV 99.4 H, MCH 31.6, MCHC 31.8 L, RDW Std Deviation 45.2 H, RDW Coeff of Tessa 12.5, Plt Count 204, MPV 10.5, Immature Gran % (Auto) 0.700, Neut % (Auto) 87.1 H, Lymph % (Auto) 6.5 L, [place] % (Auto) 5.2, Eos % (Auto) 0.4, Baso % (Auto) 0.1, Absolute Neuts (auto) 12.0 H, Absolute Lymphs (auto) 0.89, Nucleated RBC % 0 01/19/20 20:10: Sodium 125 L, Potassium 4.7, Chloride 92 L, Carbon Dioxide 28.0, Anion Gap 5, BUN 21 H, Creatinine 1.92 H, Estim Creat Clear Calc 25.38, Est GFR (MDRD) Af Amer 33 L, Est GFR (MDRD) Non-Af 27 L, BUN/Creatinine Ratio 10.9, Glucose 296 H, Calcium 8.9 01/19/20 20:20: Urine Color Red, Urine Clarity Cloudy, Urine pH 7.0, Ur Specific [place] 1.010, Urine Protein 500 H, Urine Glucose (UA) 250 H, Urine Ketones 5 H , Urine Occult Blood 250 H, Urine Nitrite Negative, Urine Bilirubin Negative, Urine Urobilinogen Normal, Ur Leukocyte Esterase Negative, Urine RBC > 100 SEEN, Urine WBC 0 SEEN, Ur Squamous Epith Cells 0-5 SEEN, Amorphous Sediment 1+ URATE, Urine Bacteria 0 SEEN, Urine Mucus 0 SEEN Current Medications Sodium Chloride () 1,000 mls @ 1,000 mls/hr IV .Q1H ONE Stop: 01/19/20 23:08 Last Admin: 01/19/20 22:48 Dose: 1,000 mls/hr Documented by: Assessment/Plan All Active Problems Hematuria (Acute) Urinary retention (Acute) Hyponatremia (Acute) fall with rib pain (Resolved) Bronchitis (Resolved) The patient is a 74 y/o F w/ PMHx: Chronic Hypoxic Respiratory Failure with Chronic COPD (3L NC), Hx CVA on plavix, CKD stage IV, Chronic Hyponatremia, Chronic anemia, Obesity, Anxiety and Depression, Fe Deficiency anemia, Diabetes mellitus type II, Asthma with allergic rhinitis, HTN, HLD, GERD recently discharged 01/18/20 following evaluation for hyponatremia and BENITO on CKD stage IV with decreased urinary output with retention with bernstein catheter placed during this prior admission with onset worsening hematuria following discharge prompting return to the ED for evaluation. 1. Acute hematuria status post recent Bernstein catheter placement with retention, unclear etiology: Urinalysis with evidence of hematuria, no obvious evidence of UTI, CT abdomen pelvis with no specific findings in the bladder, will admit to the medical surgical floor, noted small clots with flushing the ED however ongoing decent output with no retention but if any concerns and worsening clots will transition to 3-way catheter and continue irrigation to avoid recurrent retention, continue to monitor hematuria, hold her plavix and trend CBC, continue Flomax. PT/OT/case management consultations for discharge planning. 2. Acute on chronic hyponatremia, unclear etiology: Admission sodium 125, baseline appears 130-131, unclear specific etiology, will lightly hydrate and repeat BMP in the a.m, pending TSH, mag, recent evaluation during prior admission with urine osmolality 144, urine random sodium 27, urine creatinine 16.30. Patient follows with Dr. Jane Jay outpatient and may discuss case with her as unclear specific etiology for chronic mild hyponatremia sitter inpatient consultation if worsening. Recent renal ultrasound unremarkable. 3. Chronic constipation: Significant CT abdomen and pelvis findings, will maintain on aggressive bowel regimen, monitor I's and O's judiciously hydrating. 4. History CVA: We will hold patient Plavix given acute presentation as noted #1, continue hypertensive and diabetic regimen as well as statin therapy. 5. Chronic macrocytic anemia, iron deficiency anemia: Admission hemoglobin 10.9, baseline appears most recently 10-11, stable, trend with continued evaluation outpatient, continue iron supplementation. 6. Chronic Kidney Disease Stage III/IV: Admission BUN/Cr 21/1.92, baseline renal function most recently 1.6-2.1, appears similar, repeat BMP in AM. 7. Diabetes mellitus type II: Hold oral home regimen, ADA diet, accu checks w/ ISS. 8. Chronic Hypoxic Respiratory Failure with Chronic COPD: Will maintain on home oxygen supplementation, continue ATC duonebs, PRN albuterol, HOB, IS parameters. 9. Hypertension: Continue home regimen including Norvasc, PRN hydralazine. 10. Hyperlipidemia: Continue home statin regimen. 11. Anxiety and depression: We will continue patient home BuSpar, venlafaxine regimen. 12. GERD: We will maintain on famotidine. 13. Former tobacco use: Encouraged continued tobacco cessation. 14. DVT prophylaxis: SCDs, defer chemoprophylaxis given hematuria as noted. 15. CODE status: Patient HCPOA is not set up however living will is currently in place. Discussed CODE status at length including difference between FULL code, DNR-CCA and DNR-CC status. Following discussions about the differences in these status, requested DNR CCA, no intubation status. Advanced Care Planning Face to Face Time: 16 minutes. OBSV E&M: 05516 Initial observation care L3 Procedures: 60870 Advncd Care Plan 30 Min
[2020-01-20] VITALS (8 sets, daily range): BP systolic 137–156; BP diastolic 62–75; PULSE 80–101; RESP 12–20; TEMP 36.7–36.9; O2SAT 95–98; BMI 30.1
[2020-01-20] MEDS: 0.9% Normal Saline 1,000 ML 100 ML IV (06:21)
[2020-01-20] MEDS: Insulin Lispro 100 UNIT/ML INSULN.PEN SC ×2 (06:27→13:38)
[2020-01-20 06:36] LABS: Bedside Glucose 210 mg/dL (70-110)
[2020-01-20 06:53] LABS: Absolute Neutrophil Count 6.9 X10^3/uL (2.0-7.7); Basophil# 0.02 X10^3/uL; Basophil% 0.2 % (0-1); Eosinophil# 0.11 X10^3/uL; Eosinophils% 1.3 % (0-5); Hematocrit 32.6 % (37-47); Hemoglobin 10.4 g/dL (12.0-15.0); Lymphocyte % 9.5 % (19-41); Mean Corp Hgb Conc 31.9 g/dL (32-36); Monocyte# 0.61 X10^3/uL; Monocyte% 7.2 % (0-10); NRBC Flagged by Analyzer 0 % (0-5); Neutrophil # 6.85 X10^3/uL (2.7-7.7); Neutrophil % 81.4 % (47-70); Platelet Count 187 K/mm3 (150-450); RBC Distribution Width CV 12.4 % (11.6-14.6); RBC Distribution Width SD 44.6 fl (35.1-43.9); Red Blood Count 3.36 M/mm3 (4.2-5.4); White Blood Count 8.4 K/mm3 (4.4-11.0)
[2020-01-20] MEDS: Ipratropium/Albuterol Sulfate 3 ML AMPUL.NEB INHALATION ×2 (07:17→13:26)
[2020-01-20 07:40] LABS: ALB/GLOB Ratio 0.8 RATIO (0.9-2.4); AST(SGOT) 16 U/L (15-37); Alanine Aminotransfer ALT/SGPT 14 U/L (13-56); Alkaline Phosphatase 96 U/L (45-117); Anion Gap 5 (5-15); BUN 16 mg/dL (7-18); BUN/Creat Ratio 10.4 RATIO (10-20); Calcium,Total 8.5 mg/dL (8.5-10.1); Chloride 98 mmol/L (98-107); Creatinine, Serum 1.54 mg/dL (0.55-1.02); EST Glomerular Filtration Rate 35 mL/min (>60); Est Glom Filt Rate - Afr Amer 42 mL/min (>60); Estimated Creatinine Clearance 31.64 ml/min; Globulin 3.6 g/dL (2.2-4.2); Glucose 209 mg/dL (74-106); Potassium 4.3 mmol/L (3.5-5.1); Protein, Total 6.6 g/dL (6.4-8.2); Sodium Level 133 mmol/L (136-145)
[2020-01-20 08:14] LABS: Magnesium 2.1 mg/dL (1.6-2.6); Thyroid Stim Hormone (TSH) 1.74 uIU/mL (0.358-3.74)
[2020-01-20] MEDS: Famotidine 20 MG Tablet PO (09:55)
[2020-01-20] MEDS: Venlafaxine XR 150 MG Capsule PO (09:55)
[2020-01-20] MEDS: Glimepiride 4 MG Tablet PO (09:55)
[2020-01-20] MEDS: amLODIPine 2.5 MG Tablet PO (09:55)
[2020-01-20] MEDS: Pioglitazone Hydrochloride 30 MG Tablet PO (09:55)
[2020-01-20] MEDS: buPROPion (SR) 150 MG Tablet.SA PO (09:55)
--- NOTE | 2020-01-20 10:51 | PCM.DC ---
- Discharge Diagnoses Current Active Problems: Current Active and Chronic Problems Hematuria (Acute) Urinary retention (Acute) Chronic obstructive pulmonary disease (COPD) (Chronic) Chronic respiratory failure with hypoxia (Chronic) Former tobacco use (Chronic) Chronic constipation (Chronic) Hyponatremia (Acute) Leukocytosis (Acute) You will use the following diet at home:: Calorie/Carbohydrate Controlled (specify 1200, 1400, etc) - 1800 sam Your food should be the consistency of: Regular Your liquids should be the consistency of: Regular/Thin Discharge Activity: Return to Normal Activity Weight Bearing Status: Full weight bearing Allergies/Adverse Reactions: Allergies No Known Allergies Allergy (Verified 01/19/20 19:09) Medications to take at Discharge Aspirin [Aspirin, Baby] 81 mg PO DAILY@0800 12/27/16 Bupropion HCl [Bupropion HCl Sr] 150 mg PO BID 12/27/16 Cyanocobalamin (Vitamin B-12) [Vitamin B-12] 1,000 mg PO DAILY 12/27/16 Ferrous Sulfate 325 mg PO DAILY 12/27/16 Glimepiride [Amaryl] 2 mg PO DAILY 12/27/16 Lovastatin 40 mg PO QHS 12/27/16 Montelukast [Singulair] 10 mg PO QHS 12/27/16 Tiotropium [place] [Spiriva] 1 puff INHALATION DAILY 12/27/16 Trazodone HCl 150 mg PO QHS 12/27/16 Venlafaxine HCl [Venlafaxine HCl ER] 150 mg PO DAILY 12/27/16 Albuterol Inhaler [Ventolin Hfa] 1 - 2 puff INHALATION Q4H PRN PRN #1 inhaler 12/30/16 Docusate Sodium [Colace] 200 mg PO BID PRN PRN #30 capsule 12/30/16 Amlodipine [Norvasc] 2.5 mg PO DAILY 01/16/20 Guaifenesin [Mucinex] 1,200 mg PO BID 01/16/20 Hydrocodon-Acetaminophen 5-325 1 tab PO 4X/DAY PRN 01/16/20 Tamsulosin HCl [Flomax] 0.8 mg PO DAILY@1730 #60 cap 01/18/20 Famotidine 20 mg PO BID 01/19/20 Pioglitazone [Actos] 30 mg PO DAILY@0800 #0 tablet 01/20/20 Primary Care Physician: Grady Mckeon DO [Primary Care Provider] - Please follow up with your Primary Care Physician in: as scheduled Test Results: Test results from this visit will be discussed in further detail at your follow-up appointment, if applicable.
[2020-01-20 12:51] LABS: Bedside Glucose 359 mg/dL (70-110)
--- NOTE | 2020-01-20 13:22 | NURSING ---
spoke with Lisa on phone and went through d/c instructions per pts request. questions asked and answered.
--- NOTE | 2020-01-21 08:44 | PCM.DC.SUM ---
Discharge Date and Diagnosis Date of Admission: 01/19/20 Date of Discharge: 01/20/20 - Primary Discharge Diagnosis #1 hematuria secondary to indwelling Bangura catheter with an overlay of Plavix usage #2 hyponatremia-etiology unknown #3 type 2 diabetes #4 chronic hypoxic respiratory failure #5 chronic kidney disease stage III - Secondary Discharge Diagnosis Chronic Problems Chronic obstructive pulmonary disease (COPD) (Chronic) Chronic respiratory failure with hypoxia (Chronic) Former tobacco use (Chronic) Chronic constipation (Chronic) Diabetes mellitus (Chronic) Hypertension (Chronic) Depression (Chronic) CKD stage 4 due to type 1 diabetes mellitus (Chronic) Hospital Course and Treatment Operations: None Procedures: None Summary of Care Provided: The patient is a 74 year old F who was seen in the emergency room at [facility] with a chief complaint of hematuria, patient had recently been hospitalized at [facility] and had a Bangura catheter inserted due to urinary retention, she noted that there was blood in her Bangura bag and came to the emergency room for evaluation. Evaluation in the emergency room showed gross hematuria in her Bangura bag, this was felt to be secondary to her usage of Plavix at home and her Plavix was discontinued during her hospitalization. Patient was noted to be hyponatremic also. Patient was placed in observation status on PCU, she was given IV fluids and her sodium was rechecked and noted to be improved. Patient's hematuria improved, it was decided that we would try to remove her Bangura catheter and see if the patient could void without it-she had a good result with this with only minimal bladder residual after the Bangura was removed. On 01/20/2020, patient was seen and examined: On examination she appeared in good health and spirits, she does not appear to be in any distress. Vital signs as documented. Skin warm and dry and without overt rashes. Neck without JVD, thyroid appears normal, trachea is midline, neck is supple. Lungs clear, normal air movement was noted. Heart exam notable for regular rhythm, normal sounds and absence of murmurs, rubs or gallops. Abdomen unremarkable and without evidence of organomegaly, masses, or abdominal aortic enlargement, bowel sounds are present in all 4 quadrants, no abdominal tenderness was noted. Extremities nonedematous, no cyanosis was noted, no clubbing was noted. Neuro: Cranial nerves II through XII are grossly intact, no focal motor deficits were noted, sensation to light touch and pinprick is intact, motor exam 5/5 throughout. Psych: Patient is alert and oriented x3, she does not appear anxious or depressed, she does not appear agitated. On 01/20/2020, patient was seen and examined and felt to be in stable condition for discharge home - Physical Exam Vitals/I&O's: Vital Signs Temp Pulse Resp BP Pulse Ox 98.4 F 80 20 H 137/69 H 97 01/20/20 13:30 01/20/20 13:30 01/20/20 13:30 01/20/20 13:30 01/20/20 13:30 Oxygen Flow Rate (L/min) 3 Oxygen Delivery Method Nasal Cannula Weight: 87.1 kg Body Mass Index (BMI) 30.0 Intake and Output for Last 24 Hours 01/19/20 01/20/20 01/21/20 23:59 23:59 23:59 Intake Total 1565 / 1565 Output Total 1500 / 1500 2850 / 2850 Balance -1500 / -1500 -1285 / -1285 Laboratory Results 01/20/20 12:44: POC Glucose 359 H Discharge Activity: Return to Normal Activity Weight Bearing Status: Full weight bearing Home Medications: Medications to take at Discharge Aspirin [Aspirin, Baby] 81 mg PO DAILY@0800 12/27/16 Bupropion HCl [Bupropion HCl Sr] 150 mg PO BID 12/27/16 Cyanocobalamin (Vitamin B-12) [Vitamin B-12] 1,000 mg PO DAILY 12/27/16 Ferrous Sulfate 325 mg PO DAILY 12/27/16 Glimepiride [Amaryl] 2 mg PO DAILY 12/27/16 Lovastatin 40 mg PO QHS 12/27/16 Montelukast [Singulair] 10 mg PO QHS 12/27/16 Tiotropium [place] [Spiriva] 1 puff INHALATION DAILY 12/27/16 Trazodone HCl 150 mg PO QHS 12/27/16 Venlafaxine HCl [Venlafaxine HCl ER] 150 mg PO DAILY 12/27/16 Albuterol Inhaler [Ventolin Hfa] 1 - 2 puff INHALATION Q4H PRN PRN #1 inhaler 12/30/16 Docusate Sodium [Colace] 200 mg PO BID PRN PRN #30 capsule 12/30/16 Amlodipine [Norvasc] 2.5 mg PO DAILY 01/16/20 Guaifenesin [Mucinex] 1,200 mg PO BID 01/16/20 Hydrocodon-Acetaminophen 5-325 1 tab PO 4X/DAY PRN 01/16/20 Tamsulosin HCl [Flomax] 0.8 mg PO DAILY@1730 #60 cap 01/18/20 Famotidine 20 mg PO BID 01/19/20 Pioglitazone [Actos] 30 mg PO DAILY@0800 #0 tab 01/20/20 Primary Care Physician: Grady Mckeon DO [Primary Care Provider] - Please follow up with your Primary Care Physician in: as scheduled Disposition: Home Minutes spent on discharge:: 31 Patient Condition:: Stable Medical Necessity - Tobacco Use Smoking Status: Former smoker Tobacco Use: Non-smoker Meaningful Use Info Meaningful Use Diagnoses (Choose all that apply): None applicable OBSV E&M: 76978 Observation care discharge
== END 2020-01-20 10:52 | disposition home or self-care (01) ==
LOC: ED 23:18 → PCU 23:27
PROVIDERS: Admitting Provider Family Medicine; Emergency Provider Emergency Medicine; PCP Preventive Medicine Occupational Medicine; Visit Provider Internal Medicine
DX: R31.9 Hematuria, unspecified (principal); T45.525A Adverse effect of antithrombotic drugs, initial encounter; E87.1 Hypo-osmolality and hyponatremia; T83.83XA Hemorrhage due to genitourinary prosthetic devices, implants and grafts, initial encounter; Y73.8 Miscellaneous gastroenterology and urology devices associated with adverse incidents, not elsewhere classified; J96.11 Chronic respiratory failure with hypoxia; D72.829 Elevated white blood cell count, unspecified; J44.9 Chronic obstructive pulmonary disease, unspecified; E11.22 Type 2 diabetes mellitus with diabetic chronic kidney disease; N18.4 Chronic kidney disease, stage 4 (severe); Z87.891 Personal history of nicotine dependence; F32.9 Major depressive disorder, single episode, unspecified; I12.9 Hypertensive chronic kidney disease with stage 1 through stage 4 chronic kidney disease, or unspecified chronic kidney disease; Z79.899 Other long term (current) drug therapy; Z79.82 Long term (current) use of aspirin; Z79.02 Long term (current) use of antithrombotics/antiplatelets; Z79.84 Long term (current) use of oral hypoglycemic drugs; E66.9 Obesity, unspecified; Z68.30 Body mass index [BMI] 30.0-30.9, adult; Z71.3 Dietary counseling and surveillance; K59.09 Other constipation; D50.9 Iron deficiency anemia, unspecified
CPT/HCPCS: 36415; 74176; 80048; 80053; 81001; 82962; 83735; 84443; 85025; 94640; 96360; 96361; 97162; 97165; 99218; 99251; 99284; J7030; G0378; G0463

== ENCOUNTER → 2020-01-24 | Outpatient (CLI) | payer MEDICARE, OTHER, SELFPAY | END | disposition home or self-care (01) | LOC: LABSPEC 16:24 | PROVIDERS: PCP Preventive Medicine Occupational Medicine; Referring Provider Urology; Visit Provider Urology | DX: N39.0 Urinary tract infection, site not specified (principal) | CPT/HCPCS: 87077; 87086; 87088; 87186 ==

== ENCOUNTER → 2020-02-02 12:40 | Outpatient (CLI) | payer MEDICARE, OTHER, SELFPAY ==
[2020-02-02 13:26] LABS: Hemoglobin 9.9 g/dL (12.0-15.0); Mean Corp Hgb Conc 30.9 g/dL (32-36); Mean Corpuscular Hgb 31.1 pg (27.0-32.0); Mean Corpuscular Volume 100.6 fL (81-99); Mean Platelet Vol. 9.7 fl (6.2-12.0); Platelet Count 236 K/mm3 (150-450); RBC Distribution Width CV 12.7 % (11.6-14.6); RBC Distribution Width SD 47.3 fl (35.1-43.9); Red Blood Count 3.18 M/mm3 (4.2-5.4); White Blood Count 6.1 K/mm3 (4.4-11.0)
[2020-02-02 14:12] LABS: Albumin, Serum 3.3 g/dL (3.2-5.0); BUN 23 mg/dL (7-18); BUN/Creat Ratio 10.6 RATIO (10-20); Calcium,Total 8.2 mg/dL (8.5-10.1); Chloride 98 mmol/L (98-107); Creatinine, Serum 2.16 mg/dL (0.55-1.02); EST Glomerular Filtration Rate 24 mL/min (>60); Est Glom Filt Rate - Afr Amer 29 mL/min (>60); Glucose 349 mg/dL (74-106); Phosphorus 3.2 mg/dL (2.5-4.9); Potassium 5.5 mmol/L (3.5-5.1); Sodium Level 129 mmol/L (136-145)
== END ==
LOC: LAB.FUTURE 12:43 → LAB 02-03 03:05
PROVIDERS: PCP Preventive Medicine Occupational Medicine; Referring Provider Internal Medicine Nephrology; Visit Provider Internal Medicine Nephrology
DX: N17.9 Acute kidney failure, unspecified (principal)
CPT/HCPCS: 36415; 80069; 83970; 85027

== ENCOUNTER → 2020-02-23 07:39 | Outpatient (CLI) | payer MEDICARE, OTHER, SELFPAY ==
[2020-02-23 08:41] LABS: Protein:Creat Ratio 629 mg/g CRE (0-200)
[2020-02-23 08:56] LABS: Anion Gap 6 (5-15); BUN 23 mg/dL (7-18); BUN/Creat Ratio 13.2 RATIO (10-20); Calcium,Total 8.9 mg/dL (8.5-10.1); Chloride 90 mmol/L (98-107); Creatinine, Serum 1.74 mg/dL (0.55-1.02); EST Glomerular Filtration Rate 30 mL/min (>60); Est Glom Filt Rate - Afr Amer 37 mL/min (>60); Glucose 95 mg/dL (74-106); Sodium Level 126 mmol/L (136-145)
== END ==
PROVIDERS: PCP Preventive Medicine Occupational Medicine; Referring Provider Internal Medicine Nephrology; Visit Provider Internal Medicine Nephrology
DX: E11.22 Type 2 diabetes mellitus with diabetic chronic kidney disease (principal); N18.9 Chronic kidney disease, unspecified; E87.1 Hypo-osmolality and hyponatremia
CPT/HCPCS: 36415; 80048; 82570; 84156

== ENCOUNTER → 2020-03-23 08:02 | Outpatient (CLI) | payer MEDICARE, OTHER, SELFPAY ==
[2020-03-23 09:01] LABS: Anion Gap 6 (5-15); BUN 36 mg/dL (7-18); BUN/Creat Ratio 17.8 RATIO (10-20); Calcium,Total 9.1 mg/dL (8.5-10.1); Chloride 103 mmol/L (98-107); Creatinine, Serum 2.02 mg/dL (0.55-1.02); EST Glomerular Filtration Rate 26 mL/min (>60); Est Glom Filt Rate - Afr Amer 31 mL/min (>60); Glucose 172 mg/dL (74-106); Potassium 4.6 mmol/L (3.5-5.1); Sodium Level 139 mmol/L (136-145)
== END ==
PROVIDERS: PCP Preventive Medicine Occupational Medicine; Referring Provider Internal Medicine Nephrology; Visit Provider Internal Medicine Nephrology
DX: E87.1 Hypo-osmolality and hyponatremia (principal); E11.22 Type 2 diabetes mellitus with diabetic chronic kidney disease; N18.3 Chronic kidney disease, stage 3 (moderate)
CPT/HCPCS: 36415; 80048

== ENCOUNTER → 2020-04-19 07:49 | Outpatient (CLI) | payer MEDICARE, OTHER, SELFPAY ==
[2020-04-19 08:23] LABS: Albumin, Serum 3.2 g/dL (3.2-5.0); BUN 37 mg/dL (7-18); BUN/Creat Ratio 19.1 RATIO (10-20); Calcium,Total 8.7 mg/dL (8.5-10.1); Chloride 107 mmol/L (98-107); Creatinine, Serum 1.94 mg/dL (0.55-1.02); EST Glomerular Filtration Rate 27 mL/min (>60); Est Glom Filt Rate - Afr Amer 33 mL/min (>60); Glucose 82 mg/dL (74-106); Phosphorus 4.3 mg/dL (2.5-4.9); Potassium 4.6 mmol/L (3.5-5.1); Sodium Level 141 mmol/L (136-145)
[2020-04-19 09:29] LABS: Protein, Urine (Random) 6.3 mg/dL (<11.9); Protein:Creat Ratio 266 mg/g CRE (0-200)
== END ==
PROVIDERS: PCP Preventive Medicine Occupational Medicine; Referring Provider Internal Medicine Nephrology; Visit Provider Internal Medicine Nephrology
DX: E11.22 Type 2 diabetes mellitus with diabetic chronic kidney disease (principal); N18.3 Chronic kidney disease, stage 3 (moderate)
CPT/HCPCS: 36415; 80069; 82570; 84156

== ENCOUNTER 2020-07-19 09:47 | Emergency (ER) | payer MEDICARE, OTHER, SELFPAY ==
[2020-07-19 09:48] VITALS: BP 153/71; PULSE 79; RESP 16; TEMP 36.1; O2SAT 95; BMI 28.1
--- NOTE | 2020-07-19 10:02 | ED.VIS.INJ ---
History of Present Illness Chief Complaint: Lower Extremity Injury Informant: Patient Onset: Yesterday Mechanism/Context: Blunt Injury, Fall Quality of Pain: Dull, Aching Location: Anterior left knee Current Severity: Mild Maximum Severity: Severe Worsened by: Unable to bear weight Relieved by: Improved if elevated Associated Symptoms: Inability to ambulate. Negative for: Parasthesias, Weakness, Loss of function, Loss of consciousness, Amnesia Length of loss of consciousness: Not applicable Narrative: Patient elderly woman who states she was in the act of sitting down. Her daughter let the dog in. The dog hit her and she fell twisting her left knee. This occurred yesterday. She states she been unable to walk or bear weight and reason she presents. She denies head trauma. Denies neck pain. She denies paresthesia, anesthesia or motor weakness. She denies prior injury to the left lower extremity. She has no other complaints. Prior similar symptoms: No Recent Illness/Hospitalization: No - Past Medical History (1) CKD stage 4 due to type 1 diabetes mellitus Status: Chronic (2) Chronic obstructive pulmonary disease (COPD) Status: Chronic (3) Depression Status: Chronic (4) Hypertension Status: Chronic Past Medical History - Allergies and Home Meds Allergies/Adverse Reactions: Allergies No Known Allergies Allergy (Verified 07/19/20 09:48) Primary Care Physician: Grady Mckeon DO [Primary Care Provider] - Prior records reviewed: Yes Surgical History: - - Remote history of an IUD with removal. Lives: With Family Smoking Status: Former smoker Alcohol: Rare Drugs: None - Family History Maternal Family History: Reports: Diabetes, Heart Disease Sibling Family History: Reports: - - sister with back cancer Paternal Family History: Reports: Diabetes, Heart Disease Review of Systems Eyes: Denies: Visual changes - bilaterally, Blurred Vision - bilaterally ENT: Reports: - - No ringing in ears, drainage from ears or epistaxis. Cardiovascular: Denies: Chest pain, Palpitations Respiratory: Denies: Dyspnea, Dyspnea on exertion Gastrointestinal: Denies: Nausea, Vomiting, Diarrhea Genitourinary: Denies: Hematuria Musculoskeletal: Reports: Swelling, Extremity Pain. Denies: Neck pain, Back pain Neurological: Denies: Weakness, Parasthesia, Numbness Hematologic: Denies: Easy bruising, Easy bleeding Physical Exam Vital Signs/Narrative: Vital Signs Temp Pulse Resp BP Pulse Ox 07/19/20 09:48 97 F L 79 16 153/71 H 95 Inital Vital Signs reviewed: Yes General: Well nourished, Well developed Head: Normocephalic, Atraumatic Eyes: Perrl, EOMI. Negative for: Pale conjunctiva, Scleral icterus Neck: Nontender, Full ROM. Negative for: Spinal Tenderness, Paraspinal Tenderness Cardiovascular: Regular rate, Regular rhythm Respiratory: No distress Abdomen: - - There is no pain the patient the pelvis. Back: Nontender. Negative for: CVA Tenderness - Right, CVA Tenderness - Left, Spinal Tenderness Extremeties: Left knee is swollen compared to the right. The patella is not ballotable. There is no obvious effusion. There is joint line tenderness laterally. There is no pain the patient with the fibular head. She is able to extend to 180 degrees and flex to 90 degrees. Lockman's test is negative. Modified Ara's is negative. Skin: Normal color, No rash, No Trauma Neurological: Alert, Oriented x3, Cranial nerves II-XII grossly intact, Normal Strength, Normal Sensation Psychological: Normal affect - Glascow Coma Scale Eye Opening: Spontaneous Motor: Obeys Commands Verbal: Oriented Coma Scale Total: 15 Diagnostic/Tx/Re-eval Chest X-Ray - ED: Read by ED Physician, - - 4 view x-ray of the knee reveals no fracture, subluxation or dislocation. There is no effusion. There is no foreign body noted. 07/19/20 10:55 Knee 4 or More Views [RAD] Stat - Medical Decision Making Was obtained to evaluate for strain versus fracture. ED Disposition - Plan for ED Patient: Disposition: Home or Assisted Living Diagnosis: Strain of left knee and leg Instructions: ED Sprain Knee Referrals: Grady Mckeon DO [Primary Care Provider] - 3-5 Days if not improving Additional Instructions: 1. Elevate knee as needed 2. Apply ice 6-8 times per day. Apply ice for 20 to 30 minutes per application. 3. Take Tylenol for pain
--- NOTE | 2020-07-19 10:55 | RAD_ITS ---
STUDY: X-RAY - LEFT KNEE REASON FOR EXAM: Female, 74 years old. fell over dog, constant pain on lateral side of left knee, pt states feels like something moved in left knee TECHNIQUE: 4 view(s) of the knee. COMPARISON: None. FINDINGS: Normal visualized distal femur. Normal visualized proximal tibia and fibula. Normal proximal tibiofibular articulation. Normal medial femorotibial compartment. Normal lateral femorotibial compartment. Normal patellofemoral articulation. There is no demonstrated joint effusion. The soft tissue structures are unremarkable. RAD/Knee 4 or More Views IMPRESSION: No fracture or malalignment. Electronically Signed: Cisco Gamboa MD (Brooks) at 12:03 EDT , Service support ,
[2020-07-19 11:50] VITALS: BP 138/74; PULSE 71; RESP 18; O2SAT 96
== END 2020-07-19 11:51 | disposition home or self-care (01) ==
PROVIDERS: Emergency Provider Emergency Medicine; PCP Preventive Medicine Occupational Medicine
DX: S86.912A Strain of unspecified muscle(s) and tendon(s) at lower leg level, left leg, initial encounter (principal); Z87.892 Personal history of anaphylaxis; X50.1XXA Overexertion from prolonged static or awkward postures, initial encounter
CPT/HCPCS: 73564; 99282

== ENCOUNTER → 2020-08-24 08:01 | Outpatient (CLI) | payer MEDICARE, OTHER, SELFPAY ==
[2020-08-24 09:23] LABS: Albumin, Serum 3.5 g/dL (3.2-5.0); BUN 36 mg/dL (7-18); BUN/Creat Ratio 19.5 RATIO (10-20); Calcium,Total 8.9 mg/dL (8.5-10.1); Chloride 109 mmol/L (98-107); Creatinine, Serum 1.85 mg/dL (0.55-1.02); EST Glomerular Filtration Rate 28 mL/min (>60); Est Glom Filt Rate - Afr Amer 34 mL/min (>60); Glucose 59 mg/dL (74-106); Phosphorus 3.4 mg/dL (2.5-4.9); Potassium 4.7 mmol/L (3.5-5.1); Sodium Level 140 mmol/L (136-145)
== END ==
PROVIDERS: PCP Preventive Medicine Occupational Medicine; Referring Provider Internal Medicine Nephrology; Visit Provider Internal Medicine Nephrology
DX: N17.9 Acute kidney failure, unspecified (principal)
CPT/HCPCS: 36415; 80069

== ENCOUNTER 2020-12-19 15:44 | Outpatient (RCR) | payer MEDICARE, OTHER, SELFPAY ==
[2020-12-19] MEDS: COVID-19 VACC, MRNA(PFIZER)/PF 30 MCG/0.3 ML SYRINGE IM (16:32)
[2021-01-09] MEDS: COVID-19 VACC, MRNA(PFIZER)/PF 30 MCG/0.3 ML SYRINGE IM (15:23)
== END 2021-03-20 23:59 ==
LOC: IMMUN 15:44
PROVIDERS: PCP Preventive Medicine Occupational Medicine; Visit Provider Family Medicine
DX: Z23 Encounter for immunization (principal)
CPT/HCPCS: 0001A; 0002A; 91300

== ENCOUNTER → 2021-02-27 07:40 | Outpatient (CLI) | payer MEDICARE, OTHER, SELFPAY ==
[2021-02-27 08:35] LABS: Protein, Urine (Random) 34.4 mg/dL (<11.9); Protein:Creat Ratio 1284 mg/g CRE (0-200)
[2021-02-27 09:57] LABS: PTHIN 214.5 pg/mL (18.4-80.1)
== END ==
PROVIDERS: PCP Preventive Medicine Occupational Medicine; Referring Provider Internal Medicine Nephrology; Visit Provider Internal Medicine Nephrology
DX: E11.22 Type 2 diabetes mellitus with diabetic chronic kidney disease (principal); N18.4 Chronic kidney disease, stage 4 (severe)
CPT/HCPCS: 36415; 82570; 83970; 84156

== ENCOUNTER → 2021-03-07 11:40 | Outpatient (CLI) | payer MEDICARE, OTHER, SELFPAY ==
[2021-03-07 12:33] LABS: Albumin, Serum 3.1 g/dL (3.2-5.0); BUN 27 mg/dL (7-18); BUN/Creat Ratio 14.5 RATIO (10-20); Calcium,Total 8.3 mg/dL (8.5-10.1); Chloride 102 mmol/L (98-107); Creatinine, Serum 1.86 mg/dL (0.55-1.02); EST Glomerular Filtration Rate 28 mL/min (>60); Est Glom Filt Rate - Afr Amer 34 mL/min (>60); Glucose 258 mg/dL (74-106); Phosphorus 3.3 mg/dL (2.5-4.9); Potassium 5.6 mmol/L (3.5-5.1); Sodium Level 135 mmol/L (136-145)
== END ==
PROVIDERS: PCP Preventive Medicine Occupational Medicine; Visit Provider Internal Medicine Nephrology
DX: N18.4 Chronic kidney disease, stage 4 (severe) (principal)
CPT/HCPCS: 36415; 80069

== ENCOUNTER 2021-04-19 17:07 | Emergency (ER) | payer MEDICARE, OTHER, SELFPAY ==
[2021-04-19 17:08] VITALS: BP 161/84; PULSE 104; RESP 20; TEMP 36; O2SAT 94; BMI 32.7
[2021-04-19 17:45] LABS: Bedside Glucose 62 mg/dL (70-110)
--- NOTE | 2021-04-19 17:46 | EDS_ITS ---
HPI History of Present Illness Chief Complaint: Hypoglycemia Informant: patient Onset/Context/Timing Onset: Yesterday Context: Gradual Onset Timing: Waxes and wanes Quality: Shaky, facial numbness Location: Generalized Worsened by: Nothing Relieved by: Eating Associated Symptoms Associated Symptoms: Nausea Narrative Narrative: Patient presents with hyperglycemia that has been waxing and waning since yesterday. Patient states the lowest her blood sugar got was 54. Patient states she has been eating which helps. Patient states that sometime after she eats her blood sugar drops again. Patient denies any fevers or chills. Patient denies any recent infections. Patient admits to nausea but denies any vomiting. Patient states she is eating without difficulty. Patient denies any diarrhea. PFSH PFS Home Medications aspirin 81 mg PO DAILY@0800 12/27/16 [History Last Taken 01/19/20] bupropion HCl 150 mg PO BID 12/27/16 [History Last Taken 01/19/20] cyanocobalamin (vitamin B-12) [Vitamin B-12] 1,000 mg PO DAILY 12/27/16 [History Last Taken 01/19/20] glimepiride 2 mg PO BID 12/27/16 [History Last Taken 01/19/20] lovastatin 40 mg PO QHS 12/27/16 [History Last Taken 01/19/20] montelukast 10 mg PO DAILY 12/27/16 [History Last Taken 01/19/20] trazodone 150 mg PO QHS 12/27/16 [History Last Taken 01/19/20] venlafaxine 150 mg PO DAILY 12/27/16 [History Last Taken 01/19/20] albuterol sulfate [Ventolin HFA] 1 - 2 puff INHALATION Q4H PRN PRN #1 inhaler 12/30/16 [Rx Last Taken 01/19/20] Hydrocodon-Acetaminophen 5-325 1 tab PO 4X/DAY PRN 01/16/20 [History Last Taken Unknown] pioglitazone 30 mg PO DAILY@0800 #0 tab 01/20/20 [Rx Last Taken Unknown] bisoprolol fumarate 5 mg PO DINNER 04/19/21 [History Last Taken Unknown] ferrous sulfate [FeroSul] 325 mg PO DAILY 04/19/21 [History Last Taken Unknown] fluticasone furoate-vilanterol 1 inh INHALATION DAILY 04/19/21 [History Last Taken Unknown] [id number] [Trelegy Ellipta] 1 inh INHALATION DAILY 04/19/21 [History Last Taken Unknown] omeprazole 40 mg PO DAILY 04/19/21 [History Last Taken Unknown] Allergy/AdvReac Type Severity Reaction Status Date / Time No Known Allergies Allergy Verified 04/19/21 17:11 no surgical history Social History Smoking Status: Former smoker ROS ROS ED Constitutional Constitutional ED: Denies chills or fever(s) Eyes Eyes: Denies blurry vision or change in vision ENT ENT ED: Denies rhinorrhea or sore throat Cardiovascular Cardiovascular: Denies chest pain or palpitations Respiratory/Chest Respiratory/Chest: Denies cough or dyspnea Gastrointestinal Gastrointestinal: Reports nausea; Denies vomiting Genitourinary Genitourinary ED: Denies dysuria or hematuria Musculoskeletal Musculoskeletal: Reports back pain; Denies neck pain Integumentary Denies abscess or rash Neurologic Neurologic: Denies headache(s) or weakness Allergic/Immunologic Allergic/Immunologic ED: Denies mouth swelling or urticaria EXAM Physical Exam Const Vital Signs: 04/19/21 17:08 Temperature 96.8 F L Temperature Source Temporal Pulse Rate 104 H Respiratory Rate 20 H Blood Pressure 161/84 H Blood Pressure Mean 109 Pulse Ox 94 Oxygen Delivery Method Nasal Cannula Positive well nourished and well developed General Appearance ED: well developed HEENT Reports moist mucous membranes Neck supple and no JVD Resp normal respiratory effort and clear to auscultation bilaterally Cardio regular rate, regular rhythm and no murmurs GI normal to inspection, nondistended, normoactive bowel sounds and non-tender Palpation: soft Extremity normal to inspection General Extremety ED: Negative for edema or tenderness General Extremity: Negative for edema Neuro oriented x3, CN's II-XII intact bilaterally and no sensory deficits noted Sensorium / Orientation: alert Motor Exam: strength 5/5 throughout Psych mental status grossly normal Skin no rashes or lesions noted MDM MDM MDM Narrative Medical decision making narrative: Portable chest x-ray was obtained. There is one view. On my interpretation, there are some increased interstitial markings. There is borderline cardiomegaly. There is no effusion. Bony thorax is normal. Radiologist interpreted the x-ray and also notes that there could be interstitial markings due to pneumonia. Patient does not have any cough or fevers. Patient does not have any shortness of breath. CBC and comprehensive metabolic profile were obtained. Creatinine was slightly elevated at 1.40 but this is consistent with prior results. Glucose was 61. Patient was given a regular diet here. Urinalysis does not show any evidence of urinary tract infection. Patient was advised of her findings. Patient was instructed to eat a regular diet. Patient was instructed to stop taking her glimepiride since she is only on 2 mg daily. Patient was instructed to keep track of her blood sugars and follow-up with her primary care physician in 3 to 5 days. Patient understood and was agreeable with the plan. All questions were answered. Lab Data Labs: Laboratory Results - last 24 hr 04/19/21 04/19/21 04/19/21 17:26 17:40 17:40 WBC 6.3 RBC 4.16 L Hgb 12.2 Hct 41.4 MCV 99.5 H MCH 29.3 MCHC 29.5 L RDW Std Deviation 54.8 H RDW Coeff of Tessa 14.9 H Plt Count 225 MPV 9.8 Immature Gran % (Auto) 0.300 Neut % (Auto) 75.2 H Lymph % (Auto) 16.2 L [place] % (Auto) 7.3 Eos % (Auto) 0.8 Baso % (Auto) 0.2 Absolute Neuts (auto) 4.8 Absolute Lymphs (auto) 1.03 Nucleated RBC % 0 Sodium 133 L Potassium 4.8 Chloride 100 Carbon Dioxide 30.0 Anion Gap 3 L BUN 15 Creatinine 1.40 H Estim Creat Clear Calc 34.28 Est GFR (MDRD) Af Amer 47 L Est GFR (MDRD) Non-Af 39 L BUN/Creatinine Ratio 10.7 Glucose 61 L Calcium 8.3 L Total Bilirubin 0.30 AST 21 ALT 12 L Alkaline Phosphatase 94 Total Protein 7.5 Albumin 2.9 L Globulin 4.6 H Albumin/Globulin Ratio 0.6 L Urine Color Urine Clarity Urine pH Ur Specific [place] Urine Protein Urine Glucose (UA) Urine Ketones Urine Occult Blood Urine Nitrite Urine Bilirubin Urine Urobilinogen Ur Leukocyte Esterase Urine RBC Urine WBC Ur Squamous Epith Cells Amorphous Sediment Urine Bacteria Urine Mucus POC Glucose 62 L 07/08/21 07/08/21 18:25 18:39 WBC RBC Hgb Hct MCV MCH MCHC RDW Std Deviation RDW Coeff of [place]essa Plt Count MPV Immature Gran % (Auto) Neut % (Auto) Lymph % (Auto) [place] % (Auto) Eos % (Auto) Baso % (Auto) Absolute Neuts (auto) Absolute Lymphs (auto) Nucleated RBC % Sodium Potassium Chloride Carbon Dioxide Anion Gap BUN Creatinine Estim Creat Clear Calc Est GFR (MDRD) Af Amer Est GFR (MDRD) Non-Af BUN/Creatinine Ratio Glucose Calcium Total Bilirubin AST ALT Alkaline Phosphatase Total Protein Albumin Globulin Albumin/Globulin Ratio Urine Color Yellow Urine Clarity Clear Urine pH 7.0 Ur Specific [place] 1.005 Urine Protein 30 H Urine Glucose (UA) Normal Urine Ketones Negative Urine Occult Blood 10 H Urine Nitrite Negative Urine Bilirubin Negative Urine Urobilinogen Normal Ur Leukocyte Esterase Negative Urine RBC 0-5 SEEN Urine WBC 0 SEEN Ur Squamous Epith Cells 0-5 SEEN Amorphous Sediment 1+ PHOS Urine Bacteria 0 SEEN Urine Mucus 0 SEEN POC Glucose 101 Radiography Diagnostic Testing: Radiology Impression Chest X-Ray 04/19/21 17:55 IMPRESSION: Diffuse bilateral interstitial opacities may represent edema and/or infection. Left hilar adenopathy. Borderline cardiomegaly. Electronically Signed: Abdirizak Johnston MD at 18:38 EDT Tel , Service support , Discharge Plan Triage Chief Complaint: Hypoglycemia ED Provider: Santos Nolasco Dx/Rx/DC Orders Clinical Impression: Hypoglycemia Instructions: ED Hypoglycemia Oral Diabetic ... Prescriptions: No Action bupropion HCl 150 MG tablet sustained-release 12 hr 150 mg PO BID RF: 0 lovastatin 40 MG tablet 40 mg PO QHS RF: 0 venlafaxine 150 MG capsule,extended release 24hr 150 mg PO DAILY RF: 0 cyanocobalamin (vitamin B-12) [Vitamin B-12] 1,000 MCG tablet 1,000 mg PO DAILY RF: 0 glimepiride 2 MG tablet 2 mg PO BID RF: 0 trazodone 150 MG tablet 150 mg PO QHS RF: 0 aspirin 81 MG tablet,chewable 81 mg PO DAILY@0800 RF: 0 montelukast 10 MG tablet 10 mg PO DAILY RF: 0 albuterol sulfate [Ventolin HFA] 1 INHALER inhaler 1 - 2 puff inhalation Q4H PRN PRN (Reason: Sob &/Or Wheezing) Qty: 1 RF: 0 Hydrocodon-Acetaminophen 5-325 tablet 1 tab PO 4X/DAY PRN (Reason: back pain) RF: 0 pioglitazone 30 MG tablet 30 mg PO DAILY@0800 Qty: 0 RF: 0 omeprazole 40 mg capsule,delayed release(DR/EC) 40 mg PO DAILY RF: 0 bisoprolol fumarate 5 mg tablet 5 mg PO DINNER RF: 0 ferrous sulfate [FeroSul] 325 mg (65 mg iron) tablet 325 mg PO DAILY RF: 0 fluticasone furoate-vilanterol 100-25 mcg/dose Blister With Device 1 inh INHALATION DAILY RF: 0 Trelegy Ellipta 100-62.5-25 mcg blister with device 1 inh INHALATION DAILY RF: 0 Primary Care Provider: Grady Mckeon Referrals: Grady Mckeon DO [Primary Care Provider] - 3-5 Days Activity Restrictions/Additional Instructions: Stop taking your glimepiride. Check your blood sugars daily. Follow-up with your primary care physician in 3 to 5 days with results of your blood sugars. Disposition Disposition: Home, Self Care
--- NOTE | 2021-04-19 17:55 | RAD_ITS ---
INDICATION: Dyspnea EXAMINATION/TECHNIQUE: X-RAY - XR Chest 1 View COMPARISON: None. FINDINGS: Chronic lung changes. Diffuse bilateral interstitial opacities. Tortuous and calcified thoracic aorta. The heart is borderline enlarged. Left hilar adenopathy. No pleural effusion or pneumothorax. No acute osseous abnormalities. RAD/Chest 1 View (Portable) IMPRESSION: Diffuse bilateral interstitial opacities may represent edema and/or infection. Left hilar adenopathy. Borderline cardiomegaly. Electronically Signed: Abdirizak Johnston MD at 18:38 EDT Tel , Service support ,
[2021-04-19 18:10] LABS: Absolute Lymphocyte Count 1.03 X10^3/uL (0.83-4.51); Absolute Neutrophil Count 4.8 X10^3/uL (2.0-7.7); Basophil# 0.01 X10^3/uL; Basophil% 0.2 % (0-1); Eosinophil# 0.05 X10^3/uL; Eosinophils% 0.8 % (0-5); Hematocrit 41.4 % (37-47); Hemoglobin 12.2 g/dL (12.0-15.0); Lymphocyte # 1.03 X10^3/ul (0.83-4.51); Lymphocyte % 16.2 % (19-41); Mean Corp Hgb Conc 29.5 g/dL (32-36); Mean Corpuscular Hgb 29.3 pg (27.0-32.0); Mean Corpuscular Volume 99.5 fL (81-99); Mean Platelet Vol. 9.8 fl (6.2-12.0); Monocyte# 0.46 X10^3/uL; Monocyte% 7.3 % (0-10); NRBC Flagged by Analyzer 0 % (0-5); Neutrophil # 4.77 X10^3/uL (2.7-7.7); Neutrophil % 75.2 % (47-70); Platelet Count 225 K/mm3 (150-450); RBC Distribution Width CV 14.9 % (11.6-14.6); RBC Distribution Width SD 54.8 fl (35.1-43.9); Red Blood Count 4.16 M/mm3 (4.2-5.4); White Blood Count 6.3 K/mm3 (4.4-11.0)
[2021-04-19 18:11] LABS: ALB/GLOB Ratio 0.6 RATIO (0.9-2.4); AST(SGOT) 21 U/L (15-37); Alanine Aminotransfer ALT/SGPT 12 U/L (13-56); Albumin, Serum 2.9 g/dL (3.2-5.0); Alkaline Phosphatase 94 U/L (45-117); Anion Gap 3 (5-15); BUN 15 mg/dL (7-18); BUN/Creat Ratio 10.7 RATIO (10-20); Calcium,Total 8.3 mg/dL (8.5-10.1); Chloride 100 mmol/L (98-107); EST Glomerular Filtration Rate 39 mL/min (>60); Est Glom Filt Rate - Afr Amer 47 mL/min (>60); Estimated Creatinine Clearance 34.28 ml/min; Globulin 4.6 g/dL (2.2-4.2); Glucose 61 mg/dL (74-106); Potassium 4.8 mmol/L (3.5-5.1); Protein, Total 7.5 g/dL (6.4-8.2); Sodium Level 133 mmol/L (136-145)
[2021-04-19 18:40] LABS: Bacteria 0 SEEN /hpf (None Seen); Mucous, Urine 0 SEEN /hpf (<or=2+); White Blood Cells 0 SEEN /hpf (0-5)
[2021-04-19 18:42] LABS: Color, Urine Yellow (Yellow); Glucose, Dipstick Normal (Normal); Ketone-Dipstick Negative (Negative); Leukocyte Esterase-Dipstick Negative /ul (Negative); Nitrite-Dipstick Negative (Negative); Occult Blood-Urine 10 /ul (Negative); Protein-Dipstick 30 mg/dl (Negative); Specific Gravity, Urine 1.005 (1.002-1.030); Urine Bilirubin Dipstick Negative (Negative); Urine Clarity Clear (Clear); Urine Urobilinogen Normal (Normal)
[2021-04-19 18:46] LABS: Bedside Glucose 101 mg/dL (70-110)
[2021-04-19 19:04] LABS: Amorphous Sediment 1+ PHOS; Red Blood Cells-Urine 0-5 SEEN /hpf (0-5); Squamous Epithelial Cells - UA 0-5 SEEN /hpf (5-10)
[2021-04-19 19:30] VITALS: BP 172/81; PULSE 88; RESP 18; O2SAT 96
== END 2021-04-19 19:31 | disposition home or self-care (01) ==
PROVIDERS: Emergency Provider Emergency Medicine; PCP Preventive Medicine Occupational Medicine
DX: E16.2 Hypoglycemia, unspecified (principal); Z79.82 Long term (current) use of aspirin; Z79.84 Long term (current) use of oral hypoglycemic drugs; Z79.899 Other long term (current) drug therapy; Z87.891 Personal history of nicotine dependence
CPT/HCPCS: 71045; 80053; 81001; 82962; 85025; 99283; A4216

== ENCOUNTER → 2021-08-10 09:55 | Outpatient (CLI) | payer MEDICARE, OTHER, SELFPAY ==
[2021-08-10 10:36] LABS: Hematocrit 40.7 % (37-47); Hemoglobin 12.6 g/dL (12.0-15.0); Mean Corpuscular Hgb 30.7 pg (27.0-32.0); Mean Platelet Vol. 10.3 fl (6.2-12.0); Platelet Count 197 K/mm3 (150-450); RBC Distribution Width CV 14.8 % (11.6-14.6); RBC Distribution Width SD 53.7 fl (35.1-43.9); Red Blood Count 4.11 M/mm3 (4.2-5.4); White Blood Count 8.3 K/mm3 (4.4-11.0)
[2021-08-10 10:52] LABS: Protein, Urine (Random) 21.2 mg/dL (<11.9); Protein:Creat Ratio 981 mg/g CRE (0-200)
[2021-08-10 11:00] LABS: PTHIN 218.3 pg/mL (18.4-80.1)
[2021-08-10 11:05] LABS: Albumin, Serum 3.1 g/dL (3.2-5.0); BUN 32 mg/dL (7-18); Calcium,Total 8.8 mg/dL (8.5-10.1); Chloride 105 mmol/L (98-107); Creatinine, Serum 1.78 mg/dL (0.55-1.02); EST Glomerular Filtration Rate 30 mL/min (>60); Est Glom Filt Rate - Afr Amer 36 mL/min (>60); Ferritin 133 ng/mL (8-252); Glucose 75 mg/dL (74-106); Iron 85 ug/dL (50-170); Iron Binding Capacity,Total 239 ug/dL (250-450); Potassium 4.9 mmol/L (3.5-5.1); Sodium Level 139 mmol/L (136-145)
== END ==
PROVIDERS: PCP Preventive Medicine Occupational Medicine; Referring Provider Internal Medicine Nephrology; Visit Provider Internal Medicine Nephrology
DX: E11.22 Type 2 diabetes mellitus with diabetic chronic kidney disease (principal); N18.4 Chronic kidney disease, stage 4 (severe); D63.1 Anemia in chronic kidney disease
CPT/HCPCS: 36415; 80069; 82570; 82728; 83540; 83550; 83970; 84156; 85027

== ENCOUNTER → 2021-09-17 08:14 | Outpatient (CLI) | payer MEDICARE, OTHER, SELFPAY ==
[2021-09-17 09:17] LABS: Hemoglobin A1c 6.3 % (3.8-5.6)
[2021-09-17 09:46] LABS: Cholesterol 141 mg/dL (200); High Density Lipoprotein 52 mg/dL; Triglycerides 103 mg/dL; Very Low Density Lipoprotein 21 mg/dL (5-40)
== END ==
PROVIDERS: PCP Preventive Medicine Occupational Medicine; Referring Provider Internal Medicine Nephrology; Visit Provider Internal Medicine Nephrology
DX: E11.22 Type 2 diabetes mellitus with diabetic chronic kidney disease (principal); N18.9 Chronic kidney disease, unspecified; E78.5 Hyperlipidemia, unspecified
CPT/HCPCS: 36415; 80061; 83036

== ENCOUNTER 2022-01-26 16:00 | Inpatient (IN) | payer MEDICARE, SELFPAY ==
[2022-01-26] VITALS (7 sets, daily range): BP systolic 144–163; BP diastolic 62–88; PULSE 80–92; RESP 16–20; TEMP 35.9–36.4; O2SAT 90–99; BMI 33.5; BMI 32.3
[2022-01-26] MEDS: HYDROcodone Bitartrate/Apap 5/325 Tablet PO (16:24)
--- NOTE | 2022-01-26 16:30 | RAD_ITS ---
EXAM: XR LEFT ANKLE COMPLETE, 3 OR MORE VIEWS CLINICAL INDICATION: pain TECHNIQUE: Frontal, lateral and oblique views of the left ankle. This report was created using [employer] report generation technology. COMPARISON: None. FINDINGS: BONES/JOINTS: Obliquely oriented fracture of the distal fibula with approximately 5 mm of displacement and mild medial apical angulation. Transverse fractures at the base of the medial malleolus with approximately 6.8 mm of displacement. Longitudinal fracture of the distal, posterior tibia. Widening of the anterior medial tibiotalar articulation best seen on the oblique view. SOFT TISSUES: Diffuse soft tissue swelling. No radiopaque foreign body. RAD/Ankle min 3 Views IMPRESSION: Trimalleolar fracture with widening of the tibiotalar joint suggesting instability. Electronically Signed: Cisco Gamboa MD (Brooks) at 16:52 EDT Reading Location ID and State: [facility] / [place] , Service support ,
--- NOTE | 2022-01-26 16:43 | RAD_ITS ---
STUDY: X-RAY CHEST REASON FOR EXAM: Female, 76 years old. Ankle fracture, medical records TECHNIQUE: AP COMPARISON: 04/19/2021 FINDINGS: Pulmonary infiltrates evident on the prior study largely resolved with mild scattered fibrotic sequela. There is no demonstrated pleural abnormality. Normal size heart. Normal mediastinum and ninfa. Normal visualized pulmonary arteries. There is atherosclerotic calcification of the aortic arch with tortuosity. There is demineralization of the osseous structures. Normal visualized ribs, clavicles, and shoulders. There is no demonstrated abnormality of the visualized soft tissue structures of the upper abdomen. RAD/Chest 1 View (Portable) IMPRESSION: No acute cardiopulmonary process. Electronically Signed: Cisco Gamboa MD (Brooks) at 17:49 EDT ,
--- NOTE | 2022-01-26 16:44 | EKG12_ITS ---
Test Reason : CLEARANCE Blood Pressure : / mmHG Vent. Rate : 082 BPM Atrial Rate : 082 BPM P-R Int : 156 ms QRS Dur : 092 ms QT Int : 396 ms P-R-T Axes : 006 052 058 degrees QTc Int : 462 ms Normal sinus rhythm Normal ECG Confirmed by JULIAN MILLER, KEVIN ([id number]), movie editor JUDIE BARRIGA ([id number]) on 01/28/2022 12:55:04 PM Referred By: Confirmed By:KEVIN JORDAN MD
[2022-01-26 17:16] LABS: Absolute Lymphocyte Count 0.68 X10^3/uL (0.83-4.51); Absolute Neutrophil Count 5.8 X10^3/uL (2.0-7.7); Basophil# 0.02 X10^3/uL; Basophil% 0.3 % (0-1); Eosinophil# 0.09 X10^3/uL; Eosinophils% 1.3 % (0-5); Hematocrit 37.8 % (37-47); Lymphocyte # 0.68 X10^3/ul (0.83-4.51); Lymphocyte % 9.5 % (19-41); Mean Corp Hgb Conc 31.7 g/dL (32-36); Mean Corpuscular Hgb 31.5 pg (27.0-32.0); Mean Corpuscular Volume 99.2 fL (81-99); Mean Platelet Vol. 9.9 fl (6.2-12.0); Monocyte# 0.54 X10^3/uL; Monocyte% 7.5 % (0-10); NRBC Flagged by Analyzer 0 % (0-5); Neutrophil # 5.81 X10^3/uL (2.7-7.7); Neutrophil % 80.8 % (47-70); Platelet Count 235 K/mm3 (150-450); RBC Distribution Width CV 14.1 % (11.6-14.6); RBC Distribution Width SD 50.8 fl (35.1-43.9); Red Blood Count 3.81 M/mm3 (4.2-5.4); White Blood Count 7.2 K/mm3 (4.4-11.0)
--- NOTE | 2022-01-26 17:19 | EDS_ITS ---
HPI History of Present Illness Chief Complaint: Fall Narrative Narrative: 76-year-old female presenting with left ankle pain. She states she was walking in the yard and stepped into a hole she estimates to be about a foot and half deep. She felt a crack. She was unable to bear weight. She arrives by EMS. She denies any numbness or tingling. She denies other injury. No knee pain on the left. PFSH PFSH Home Medications aspirin 81 mg PO DAILY@0800 12/27/16 [History Last Taken 01/19/20] bupropion HCl 150 mg PO BID 12/27/16 [History Last Taken 01/19/20] cyanocobalamin (vitamin B-12) [Vitamin B-12] 1,000 mg PO DAILY 12/27/16 [History Last Taken 01/19/20] glimepiride 2 mg PO BID 12/27/16 [History Last Taken 01/19/20] lovastatin 40 mg PO QHS 12/27/16 [History Last Taken 01/19/20] montelukast 10 mg PO DAILY 12/27/16 [History Last Taken 01/19/20] trazodone 150 mg PO QHS 12/27/16 [History Last Taken 01/19/20] venlafaxine 150 mg PO DAILY 12/27/16 [History Last Taken 01/19/20] albuterol sulfate [Ventolin HFA] 1 - 2 puff INHALATION Q4H PRN PRN #1 inhaler 12/30/16 [Rx Last Taken 01/19/20] Hydrocodon-Acetaminophen 5-325 1 tab PO 4X/DAY PRN 01/16/20 [History Last Taken Unknown] pioglitazone 30 mg PO DAILY@0800 #0 tab 01/20/20 [Rx Last Taken Unknown] bisoprolol fumarate 5 mg PO DINNER 04/19/21 [History Last Taken Unknown] ferrous sulfate [FeroSul] 325 mg PO DAILY 04/19/21 [History Last Taken Unknown] fluticasone furoate-vilanterol 1 inh INHALATION DAILY 04/19/21 [History Last Taken Unknown] mgfzegnsklv-tdbftlpob-lcexueeb [Trelegy Ellipta] 1 inh INHALATION DAILY 04/19/21 [History Last Taken Unknown] omeprazole 40 mg PO DAILY 04/19/21 [History Last Taken Unknown] Allergy/AdvReac Type Severity Reaction Status Date / Time No Known Allergies Allergy Verified 04/19/21 17:11 Social History Smoking Status: Former smoker ROS ROS ED Constitutional Constitutional ED: Denies chills or fever(s) Eyes Eyes: Denies blurry vision or diplopia ENT ENT ED: Denies rhinorrhea Cardiovascular Cardiovascular: Denies chest pain or palpitations Respiratory/Chest Respiratory/Chest: Denies cough or dyspnea Gastrointestinal Gastrointestinal: Denies abdominal pain or nausea Genitourinary Genitourinary ED: Denies dysuria or hematuria Musculoskeletal Musculoskeletal: Reports other Details: Left ankle pain Integumentary Denies abscess or rash Neurologic Neurologic: Denies headache(s) or paresthesias Psychiatric Psychiatric: Denies anxiety or depression EXAM Physical Exam Const Vital Signs: 01/26/22 16:01 Temperature 97.6 F L Temperature Source Oral Pulse Rate 92 Respiratory Rate 16 Blood Pressure 149/88 H Blood Pressure Mean 108 Pulse Ox 93 Oxygen Delivery Method Nasal Cannula Oxygen Flow Rate (L/min) 3 Positive well nourished General Appearance ED: NAD HEENT Reports moist mucous membranes normocephalic and atraumatic Resp normal respiratory effort and clear to auscultation bilaterally Extremity Extremity Narrative: Tenderness palpation of the left ankle. There is swelling at the level of the medial and lateral malleolus. Most pain elicited anteriorly between the malleoli. DP/PT +2/4 and symmetric bilaterally. Sensation intact. No knee pain on the left. Psych mental status grossly normal Skin Rashes: no rashes MDM MDM MDM Narrative Medical decision making narrative: Patient with left ankle pain. Patient was given [place] for pain and she has obvious deformity of the left ankle with swelling. Left ankle x-ray on my interpretation shows a trimalleolar fracture. The radiologist does agree. Patient was initially given [place] and she has good control of her pain if she is resting. I spoke with Dr. Crump who felt the patient would likely benefit from surgery. At this point he plans to have the patient be admitted to the hospital to go to the OR on Friday. He did come to the emergency room and evaluated the patient bedside. I did obtain screening lab work which is unremarkable. Creatinine is baseline. No anemia or leukocytosis. I did obtain a CT of the lower extremity for surgical planning which does show a trimalleolar fracture. EKG on my interpretation shows normal sinus rhythm with a ventricular rate of 82 bpm without sign of ischemic change or dysrhythmia I performed conscious sedation with propofol for a total conscious sedation time of approximately 6 minutes. Patient tolerated this well. Lower extremity splinting was performed by Dr. Crump. Patient will be admitted to [facility] pending surgery. Impression: 1. Trimalleolar fracture 2. Mechanical fall Lab Data Attestation: I reviewed the patient's lab results. Labs: Laboratory Results - last 24 hr 01/26/22 01/26/22 17:10 17:10 WBC 7.2 RBC 3.81 L Hgb 12.0 Hct 37.8 MCV 99.2 H MCH 31.5 MCHC 31.7 L RDW Std Deviation 50.8 H RDW Coeff of Tessa 14.1 Plt Count 235 MPV 9.9 Immature Gran % (Auto) 0.600 Neut % (Auto) 80.8 H Lymph % (Auto) 9.5 L [place] % (Auto) 7.5 Eos % (Auto) 1.3 Baso % (Auto) 0.3 Absolute Neuts (auto) 5.8 Absolute Lymphs (auto) 0.68 L Nucleated RBC % 0 Sodium 135 L Potassium 5.3 H Chloride 103 Carbon Dioxide 27.0 Anion Gap 5 BUN 35 H Creatinine 2.05 H Estim Creat Clear Calc 23.06 Est GFR (MDRD) Af Amer 30 L Est GFR (MDRD) Non-Af 25 L BUN/Creatinine Ratio 17.1 Glucose 277 H Calcium 8.4 L Total Bilirubin 0.50 AST 14 L ALT 13 Alkaline Phosphatase 107 Total Protein 7.8 Albumin 3.0 L Globulin 4.8 H Albumin/Globulin Ratio 0.6 L Radiography Diagnostic Testing: Clinical Impression(s) from Imaging Studies Ankle X-Ray 01/26/22 16:30 IMPRESSION: Trimalleolar fracture with widening of the tibiotalar joint suggesting instability. Electronically Signed: Cisco Gamboa MD ([place]) at 16:52 EDT , Chest X-Ray 01/26/22 16:43 IMPRESSION: No acute cardiopulmonary process. Electronically Signed: Cisco Gamboa MD (Brooks) at 17:49 EDT , Lower Extremity CT 01/26/22 17:21 IMPRESSION: Trimalleolar fracture with tibiotalar joint widening. Electronically Signed: Cisco Gamboa MD (Brooks) at 18:26 EDT , Discharge Plan Triage Chief Complaint: Fall ED Provider: Nayan Veras Dx/Rx/DC Orders Primary Care Provider: Grady Mckeon
--- NOTE | 2022-01-26 17:21 | CT_ITS ---
EXAM: CT LEFT LOWER EXTREMITY WITHOUT INTRAVENOUS CONTRAST CLINICAL INDICATION: pain TECHNIQUE: Helically acquired images were obtained of the left lower extremity without intravenous contrast. 2-D reformats were performed by the technologist. This CT exam was performed using one or more of the following dose reduction techniques: automated exposure control, adjustment of the mA and/or kV according to patient size, and/or use of iterative reconstruction technique. This report was created using uTest report generation technology. RADIATION DOSE: CTDIvol = 15.35 mGy, DLP = 906.40 mGy-cm COMPARISON: Earlier today. FINDINGS: BONES/JOINTS: Obliquely oriented fracture of the distal fibula with approximately 11.1 mm of displacement and mild medial apical angulation. Transverse fractures at the base of the medial malleolus with approximately 5.6 mm of displacement. Longitudinal fracture of the distal, posterior tibia with approximately 9.2 mm of displacement. Widening of the anterior (image 40 series 601) and medial (image 43 series 602) tibiotalar articulation. No additional fracture of the tibia or fibula. SOFT TISSUES: Diffuse soft tissue swelling. No radiopaque foreign body. CT/Extremity Lower without Contra IMPRESSION: Trimalleolar fracture with tibiotalar joint widening. Electronically Signed: Cisco Gamboa MD (Brooks) at 18:26 EDT Reading Location ID and State: [facility] / MD , Service support ,
[2022-01-26 17:36] LABS: ALB/GLOB Ratio 0.6 RATIO (0.9-2.4); AST(SGOT) 14 U/L (15-37); Alanine Aminotransfer ALT/SGPT 13 U/L (13-56); Alkaline Phosphatase 107 U/L (45-117); Anion Gap 5 (5-15); BUN 35 mg/dL (7-18); BUN/Creat Ratio 17.1 RATIO (10-20); Calcium,Total 8.4 mg/dL (8.5-10.1); Chloride 103 mmol/L (98-107); Creatinine, Serum 2.05 mg/dL (0.55-1.02); EST Glomerular Filtration Rate 25 mL/min (>60); Est Glom Filt Rate - Afr Amer 30 mL/min (>60); Estimated Creatinine Clearance 23.06 ml/min; Globulin 4.8 g/dL (2.2-4.2); Glucose 277 mg/dL (74-106); Potassium 5.3 mmol/L (3.5-5.1); Protein, Total 7.8 g/dL (6.4-8.2); Sodium Level 135 mmol/L (136-145)
--- NOTE | 2022-01-26 18:09 | HP.PCM_ITS ---
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 She presents to ER with ankle pain and fracture. She has hx of diabetes and COPD. Patient declines any other injuries. No complaints of fever, chills, nausea or vomiting. PFSH Home Medications aspirin 81 mg PO DAILY@0800 12/27/16 [History Last Taken 01/19/20] bupropion HCl 150 mg PO BID 12/27/16 [History Last Taken 01/19/20] cyanocobalamin (vitamin B-12) [Vitamin B-12] 1,000 mg PO DAILY 12/27/16 [History Last Taken 01/19/20] glimepiride 2 mg PO BID 12/27/16 [History Last Taken 01/19/20] lovastatin 40 mg PO QHS 12/27/16 [History Last Taken 01/19/20] montelukast 10 mg PO DAILY 12/27/16 [History Last Taken 01/19/20] trazodone 150 mg PO QHS 12/27/16 [History Last Taken 01/19/20] venlafaxine 150 mg PO DAILY 12/27/16 [History Last Taken 01/19/20] albuterol sulfate [Ventolin HFA] 1 - 2 puff INHALATION Q4H PRN PRN #1 inhaler 12/30/16 [Rx Last Taken 01/19/20] Hydrocodon-Acetaminophen 5-325 1 tab PO 4X/DAY PRN 01/16/20 [History Last Taken Unknown] pioglitazone 30 mg PO DAILY@0800 #0 tab 01/20/20 [Rx Last Taken Unknown] bisoprolol fumarate 5 mg PO DINNER 04/19/21 [History Last Taken Unknown] ferrous sulfate [FeroSul] 325 mg PO DAILY 04/19/21 [History Last Taken Unknown] fluticasone furoate-vilanterol 1 inh INHALATION DAILY 04/19/21 [History Last Taken Unknown] [id number]-trrkjhbqv-egymcjxk [Trelegy Ellipta] 1 inh INHALATION DAILY 04/19/21 [History Last Taken Unknown] omeprazole 40 mg PO DAILY 04/19/21 [History Last Taken Unknown] Allergy/AdvReac Type Severity Reaction Status Date / Time No Known Allergies Allergy Verified 04/19/21 17:11 Social History Smoking Status: Former smoker Vital Signs Vital Signs Vital Signs: 01/26/22 16:01 Temperature 97.6 F L Temperature Source Oral Pulse Rate 92 Respiratory Rate 16 Blood Pressure 149/88 H Blood Pressure Mean 108 Pulse Ox 93 Oxygen Delivery Method Nasal Cannula Oxygen Flow Rate (L/min) 3 Weight Weight: 97 kg Body Mass Index (BMI) 33.5 Physical Exam Const alert, oriented x3 and no apparent distress Extremity Extremity Narrative: Left ankle fracture dislocation, no open lesions, no b listering, no cellulitis, no tissue loss, no erythema, no fluctuance, no visible abscess, no maloder, there is some ankle edema c/w normal findings from injury, calf is soft and supple, there is POP to the ankle c/w ankle fracture otherwise no other pain to the foot or ankle, no evidence of compartment syndrome, pedal pulses intact, CFT < 2 seconds to all toes with intact sensation, patient is abl e to move foot/ankle in all directions with intact muscles, but patient relates to ankle pain with this c/w injury. Results Lab / Micro Data Result Diagrams: 01/26/22 17:10 01/26/22 17:10 Labs: Laboratory Results - last 24 hr 01/26/22 17:10: WBC 7.2, RBC 3.81 L, Hgb 12.0, Hct 37.8, MCV 99.2 H, MCH 31.5, MCHC 31.7 L, RDW Std Deviation 50.8 H, RDW Coeff of Tessa 14.1, Plt Count 235, MPV 9.9, Immature Gran % (Auto) 0.600, Neut % (Auto) 80.8 H, Lymph % (Auto) 9.5 L, [place] % (Auto) 7.5, Eos % (Auto) 1.3, Baso % (Auto) 0.3, Absolute Neuts (auto) 5.8, Absolute Lymphs (auto) 0.68 L, Nucleated RBC % 0 01/26/22 17:10: Sodium 135 L, Potassium 5.3 H, Chloride 103, Carbon Dioxide 27.0, Anion Gap 5, BUN 35 H, Creatinine 2.05 H, Estim Creat Clear Calc 23.06, Est GFR (MDRD) Af Amer 30 L, Est GFR (MDRD) Non-Af 25 L, BUN/Creatinine Ratio 17.1, Glucose 277 H, Calcium 8.4 L, Total Bilirubin 0.50, AST 14 L, ALT 13, Alkaline Phosphatase 107, Total Protein 7.8, Albumin 3.0 L, Globulin 4.8 H, Albumin/Globulin Ratio 0.6 L Micro: Microbiology 01/26/22 16:59 Nasal Secretion SARS-CoV-2 Antigen (Rapid) - Final Radiology Impression Ankle X-Ray 01/26/22 16:30 IMPRESSION: Trimalleolar fracture with widening of the tibiotalar joint suggesting instability. Electronically Signed: Cisco Gamboa MD (Brooks) at 16:52 EDT , Chest X-Ray 01/26/22 16:43 IMPRESSION: No acute cardiopulmonary process. 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 Reviewed left ankle xrays and CT scan. After consent was obtained and patient reviewed and signed consent for and with Dr. Veras providing sedation left ankle closed reduction was preformed with application of well padded below knee posterior splint with heel offloaded. Keep clean, dry and intact. Will plan to admit patient for pain control and surgical intervention. Plan for surgery on left ankle on Friday or Friday this coming week pending medical clearance and OR availability. No weightbearing left foot. Keep left foot elevated. Pain management - Acetaminophen, Oxyir, Dilaudid. SCD right lower extremity. Lovenox 30mg subcutaneous daily. Consult medicine team for diabetes, COPD, and other medical problems.
[2022-01-26] MEDS: 0.9% Normal Saline 1,000 ML 999 ML IV (18:41)
[2022-01-26] MEDS: Propofol 200 MG/20 ML Vial IV BOLUS (18:41)
--- NOTE | 2022-01-26 18:54 | PN.HOSP_ITS ---
Subjective Subjective Patient is a 76-year-old female with a significant history of former smoker; CKD stage IIIb; COPD on home 3 to 4 L nasal cannula oxygen; type 2 diabetes; hypertension; depression and anxiety; previous CVA on aspirin who presents emergency department with left foot pain and diagnosed with a trimalleolar fracture of the left ankle. Reportedly patient was shoveling the whole in her yard. She stepped on the shovel to make a hole. She slipped and fell backwards and developed excruciating sharp pain in her left ankle. Her pain was so so severe that she could not move. Internal medicine service has been consulted by podiatry to help manage chronic medical conditions including diabetes mellitus type 2; COPD; hypertension; depression and anxiety. At the time of examination of patient's left ankle had been splinted and patient had received some pain medication. She reported the pain in her left ankle was tolerable. Objective Data Objective Data Vital Signs: Vital Signs Temp Pulse Resp BP Pulse Ox 97 F L 80 17 153/62 H 98 01/26/22 18:50 01/26/22 18:50 01/26/22 18:50 01/26/22 18:50 01/26/22 18:50 Oxygen Flow Rate (L/min) [4] 4 Oxygen Flow Rate (L/min) [3] 4 Oxygen Flow Rate (L/min) [1 ( 2 Initial Baseline)] Oxygen Flow Rate (L/min) 3 Oxygen Delivery Method [4] Nasal Cannula Oxygen Delivery Method [3] Nasal Cannula Oxygen Delivery Method [2] Nasal Cannula Oxygen Delivery Method [1 ( Nasal Cannula Initial Baseline)] Oxygen Delivery Method Nasal Cannula Weight: 97 kg Body Mass Index (BMI) 33.5 Lab / Micro Data Result Diagrams: 01/26/22 17:10 01/26/22 17:10 Labs: Laboratory Results - last 24 hr 01/26/22 17:10: WBC 7.2, RBC 3.81 L, Hgb 12.0, Hct 37.8, MCV 99.2 H, MCH 31.5, MCHC 31.7 L, RDW Std Deviation 50.8 H, RDW Coeff of Tessa 14.1, Plt Count 235, MPV 9.9, Immature Gran % (Auto) 0.600, Neut % (Auto) 80.8 H, Lymph % (Auto) 9.5 L, [place] % (Auto) 7.5, Eos % (Auto) 1.3, Baso % (Auto) 0.3, Absolute Neuts (auto) 5.8, Absolute Lymphs (auto) 0.68 L, Nucleated RBC % 0 01/26/22 17:10: Sodium 135 L, Potassium 5.3 H, Chloride 103, Carbon Dioxide 27.0, Anion Gap 5, BUN 35 H, Creatinine 2.05 H, Estim Creat Clear Calc 23.06, Est GFR (MDRD) Af Amer 30 L, Est GFR (MDRD) Non-Af 25 L, BUN/Creatinine Ratio 17.1, Glucose 277 H, Calcium 8.4 L, Total Bilirubin 0.50, AST 14 L, ALT 13, Alkaline Phosphatase 107, Total Protein 7.8, Albumin 3.0 L, Globulin 4.8 H, Albumin/Globulin Ratio 0.6 L Micro: Microbiology 01/26/22 16:59 Nasal Secretion SARS-CoV-2 Antigen (Rapid) - Final Radiography Diagnostic Testing: Radiology Impression Ankle X-Ray 01/26/22 16:30 IMPRESSION: Trimalleolar fracture with widening of the tibiotalar joint suggesting instability. Electronically Signed: Cisco Gamboa MD (Brooks) at 16:52 EDT , Chest X-Ray 01/26/22 16:43 IMPRESSION: No acute cardiopulmonary process. Electronically Signed: Cisco Gamboa MD (Brooks) at 17:49 EDT , Lower Extremity CT 01/26/22 17:21 IMPRESSION: Trimalleolar fracture with tibiotalar joint widening. Electronically Signed: Cisco Gamboa MD (Brooks) at 18:26 EDT , Physical Exam Narrative Physical exam: General: Well-nourished, well-developed. Head: Normocephalic, atraumatic, no tenderness Eyes: Vision is grossly intact. EOMI ENT, no trauma, moist mucous membranes, no rhinorrhea Neck: Nontender, full range of motion, no spinal tenderness, deformities, step- off CVS: Regular rate and rhythm. S1-S2 present. No murmur, gallop or rub. Respiratory : clear to auscultation bilaterally, chest wall nontender, no wheezing Abdomen: Soft, nontender, nondistended, normal bowel sounds, no masses : Deferred Back: Nontender, no CVA tenderness, no midline spinal tenderness, deformities, step-offs Extremities: Left ankle and left leg in a splint. Right leg and right foot with no edema, swelling or tenderness. Skin: Normal color, no trauma. Excoriation at the back of neck that patient attributes to scratching. Neuro: Alert, oriented, cranial nerves II through XII grossly intact. Psychiatry: Normal mood. Normal affect. Not depressed. Not anxious. Assessment & Plan Assessment/Plan (1) Trimalleolar fracture of ankle, closed: QUALIFIERS: Encounter type: initial encounter Laterality: left Qualified Code(s): S82.852A - Displaced trimalleolar fracture of left lower leg, initial encounter for closed fracture (2) Hypertension: QUALIFIERS: Hypertension type: essential hypertension Qualified Code(s): I10 - Essential (primary) hypertension (3) Diabetes mellitus: QUALIFIERS: Chronic kidney disease stage: stage 3 (moderate) Chronic kidney disease stage 3 subtype: stage 3b (GFR 30-44) Diabetes mellitus complication detail: with chronic kidney disease Diabetes mellitus complication status: with kidney complications Diabetes mellitus terminologist insulin use: without terminologist use Diabetes mellitus type: type 2 Qualified Code(s): E11.22 - Type 2 diabetes mellitus with diabetic chronic kidney disease; N18.32 - Chronic kidney disease, stage 3b PLAN: Trimalleolar fracture of left ankle, closed Left leg splinted by podiatry. Management by podiatry who is primary. EKG showed sinus rhythm; no ST or T wave abnormalities. Surgical score: Per ACS NSQIP surgical risk calculator patient is at the average risk of cardiac complications. Patient is above average risk of pneumonia; any complication or serious complication. Also patient is above average risk of surgical site infection; and readmission. Change level to telemetry MedSurg. Titrate pain medication by a pain score in the setting of chronic kidney disease. Started on oxycodone and Dilaudid as needed by podiatry. Home [place] for back pain on hold. Hyperkalemia Noted to have mildly elevated potassium of 5.3. Received IV saline bolus on presentation. Will trend BMP. Hypertension Blood pressure is not within goal Losartan continued. As needed hydralazine ordered. Trend blood pressure and adjust blood pressure medications. COPD on home 3 to 4 L nasal cannula oxygen. Home Trelegy continued. As needed albuterol continued. Continue oxygen supplementation to maintain oxygen saturation at least 90%. Diabetes mellitus type 2 with nephropathy. Patient with hyperglycemia on presentation Home oral hypoglycemic medication continued. Accu-Chek QA CHS with correction scale insulin ordered. CKD stage IIIb Stable. Trend BMP. DVT prophylaxis Lovenox for now per podiatry Charges/Coding Visit Charges Inpatient E&M: 24948 Subs Hosp L2
--- NOTE | 2022-01-26 19:00 | RAD_ITS ---
STUDY: X-RAY - LEFT ANKLE REASON FOR EXAM: Female, 76 years old. s/p closed reduction TECHNIQUE: 3 view(s) of the ankle. COMPARISON: Earlier today FINDINGS: Improved alignment of trimalleolar fracture as seen on x-ray/CT from earlier today. Lesser amount of tibiotalar joint widening. Normal visualized talus and calcaneus. The visualized subtalar, talonavicular, calcaneocuboid and tarsal articulations are normal. Diffuse soft tissue swelling. Cast material noted. RAD/Ankle min 3 Views IMPRESSION: Improved alignment of trimalleolar fracture. Electronically Signed: Cisco Gamboa MD (Brooks) at 19:18 EDT ,
[2022-01-26] MEDS: buPROPion (SR) 150 MG Tablet.SA PO (22:36)
[2022-01-26] MEDS: Atorvastatin Calcium 10 MG Tablet PO (22:36)
[2022-01-26] MEDS: traZODone 50 MG Tablet 150 MG PO (22:36)
[2022-01-26] MEDS: Acetaminophen 325 MG Tablet 650 MG PO (22:40)
[2022-01-26] MEDS: oxyCODONE 5 MG Tablet PO (22:40)
[2022-01-26] MEDS: Insulin Lispro 100 UNIT/ML INSULN.PEN SC (22:51)
[2022-01-26 23:00] LABS: Bedside Glucose 210 mg/dL (74-106)
[2022-01-27] VITALS (14 sets, daily range): BP systolic 135–157; BP diastolic 63–87; PULSE 75–98; RESP 17–18; TEMP 36.6–37.2; O2SAT 95–98
[2022-01-27] MEDS: oxyCODONE 5 MG Tablet PO ×5 (03:08→22:08)
[2022-01-27] MEDS: Enoxaparin 30 MG/0.3 ML Syringe SC (06:28)
[2022-01-27 06:30] LABS: Anion Gap 6 (5-15); BUN 31 mg/dL (7-18); BUN/Creat Ratio 18.8 RATIO (10-20); Calcium,Total 8.3 mg/dL (8.5-10.1); Chloride 107 mmol/L (98-107); Creatinine, Serum 1.65 mg/dL (0.55-1.02); EST Glomerular Filtration Rate 32 mL/min (>60); Est Glom Filt Rate - Afr Amer 39 mL/min (>60); Estimated Creatinine Clearance 28.65 ml/min; Glucose 78 mg/dL (74-106); Potassium 4.4 mmol/L (3.5-5.1); Sodium Level 137 mmol/L (136-145)
[2022-01-27 06:35] LABS: Bedside Glucose 87 mg/dL (74-106)
[2022-01-27] MEDS: Budesonide Respules 0.5 MG/2 ML AMPUL.NEB. INHALATION ×2 (07:11→19:50)
[2022-01-27] MEDS: Ipratropium/Albuterol Sulfate 3 ML AMPUL.NEB INHALATION ×3 (07:11→19:50)
[2022-01-27] MEDS: Acetaminophen 325 MG Tablet 650 MG PO ×2 (07:47→16:08)
[2022-01-27] MEDS: Glimepiride 2 MG Tablet PO (08:31)
[2022-01-27] MEDS: Cyanocobalamin 500 MCG Tablet 1000 MCG PO (08:31)
[2022-01-27] MEDS: Pantoprazole Sodium 40 MG Tablet PO (08:31)
[2022-01-27] MEDS: Montelukast 10 MG Tablet PO (08:31)
[2022-01-27] MEDS: Venlafaxine XR 150 MG Capsule PO (08:31)
[2022-01-27] MEDS: Losartan Potassium 25 MG Tablet PO (08:31)
[2022-01-27] MEDS: buPROPion (SR) 150 MG Tablet.SA PO ×2 (08:31→22:05)
[2022-01-27] MEDS: Loratadine 10 MG Tablet PO (08:31)
[2022-01-27] MEDS: Pioglitazone Hydrochloride 30 MG Tablet PO (08:31)
[2022-01-27] MEDS: Ferrous Sulfate 325 MG Tablet PO (08:31)
[2022-01-27] MEDS: Aspirin 81 MG TAB.CHEW PO (08:31)
[2022-01-27] MEDS: 0.9% Saline Lock 10 ML Syringe IV ×2 (10:11→18:46)
[2022-01-27] MEDS: HYDROmorphone 0.5 MG/0.5 ML SYRINGE IV (10:12)
--- NOTE | 2022-01-27 10:31 | PCM.PN.HOSP ---
Documented by User: Anthony BEAN 01/27/22 10:44 Subjective Subjective Patient is a 76-year-old female comfortably resting in bed, alert and oriented x3. Patient reports mild pain from her left ankle fracture, but reports that this is controlled. Denies chest pain, shortness of breath, palpitations, hemoptysis, sputum production, fever, chills, N/V/D. Objective Data Objective Data Vital Signs: Vital Signs Temp Pulse Resp BP Pulse Ox 99.0 F 97 18 157/87 H 95 01/27/22 07:46 01/27/22 07:46 01/27/22 07:46 01/27/22 07:46 01/27/22 07:46 Oxygen Flow Rate (L/min) [4] 4 Oxygen Flow Rate (L/min) [3] 4 Oxygen Flow Rate (L/min) [1 ( 2 Initial Baseline)] Oxygen Flow Rate (L/min) 3 Oxygen Delivery Method [4] Nasal Cannula Oxygen Delivery Method [3] Nasal Cannula Oxygen Delivery Method [2] Nasal Cannula Oxygen Delivery Method [1 ( Nasal Cannula Initial Baseline)] Oxygen Delivery Method Nasal Cannula Weight: 206 lb 5.643 oz Body Mass Index (BMI) 32.3 Intake & Output: Intake and Output for Last 24 Hours 01/25/22 01/26/22 01/27/22 23:59 23:59 23:59 Intake Total 1000 / 1000 Balance 1000 / 1000 Lab / Micro Data Result Diagrams: 01/26/22 17:10 01/27/22 05:20 Labs: Laboratory Results - last 24 hr 01/26/22 17:10: WBC 7.2, RBC 3.81 L, Hgb 12.0, Hct 37.8, MCV 99.2 H, MCH 31.5, MCHC 31.7 L, RDW Std Deviation 50.8 H, RDW Coeff of Tessa 14.1, Plt Count 235, MPV 9.9, Immature Gran % (Auto) 0.600, Neut % (Auto) 80.8 H, Lymph % (Auto) 9.5 L, [place] % (Auto) 7.5, Eos % (Auto) 1.3, Baso % (Auto) 0.3, Absolute Neuts (auto) 5.8, Absolute Lymphs (auto) 0.68 L, Nucleated RBC % 0 01/26/22 17:10: Sodium 135 L, Potassium 5.3 H, Chloride 103, Carbon Dioxide 27.0, Anion Gap 5, BUN 35 H, Creatinine 2.05 H, Estim Creat Clear Calc 23.06, Est GFR (MDRD) Af Amer 30 L, Est GFR (MDRD) Non-Af 25 L, BUN/Creatinine Ratio 17.1, Glucose 277 H, Calcium 8.4 L, Total Bilirubin 0.50, AST 14 L, ALT 13, Alkaline Phosphatase 107, Total Protein 7.8, Albumin 3.0 L, Globulin 4.8 H, Albumin/Globulin Ratio 0.6 L 01/26/22 22:32: POC Glucose 210 H 01/27/22 05:20: Sodium 137, Potassium 4.4, Chloride 107, Carbon Dioxide 24.0, Anion Gap 6, BUN 31 H, Creatinine 1.65 H, Estim Creat Clear Calc 28.65, Est GFR (MDRD) Af Amer 39 L, Est GFR (MDRD) Non-Af 32 L, BUN/Creatinine Ratio 18.8, Glucose 78, Calcium 8.3 L 01/27/22 05:20: Hemoglobin A1c 7.0 H 01/27/22 06:26: POC Glucose 87 Micro: Microbiology 01/26/22 16:59 Nasal Secretion SARS-CoV-2 Antigen (Rapid) - Final Radiography Diagnostic Testing: Radiology Impression Ankle X-Ray 01/26/22 16:30 IMPRESSION: Trimalleolar fracture with widening of the tibiotalar joint suggesting instability. Electronically Signed: Cisco Gamboa MD ([place]) at 16:52 EDT , Chest X-Ray 01/26/22 16:43 IMPRESSION: No acute cardiopulmonary process. Electronically Signed: Cisco Gamboa MD ([facility]) at 17:49 EDT , Lower Extremity CT 01/26/22 17:21 IMPRESSION: Trimalleolar fracture with tibiotalar joint widening. Electronically Signed: Cisco Gamboa MD ([facility]) at 18:26 EDT , Ankle X-Ray 01/26/22 19:00 IMPRESSION: Improved alignment of trimalleolar fracture. Electronically Signed: Cisco Gamboa MD ([facility]) at 19:18 EDT , Physical Exam Const alert, oriented x3 and no apparent distress HEENT head/scalp atraumatic and moist oral mucous membranes Head and Scalp: normocephalic Eyes PERRL and conjunctivae normal Neck no lymphadenopathy, supple and no JVD Resp normal respiratory effort, no retractions and no use of accessory muscles Resp Narrative: Currently satting 95% on 3 L via nasal cannula, which is patient baseline. Cardio regular rate, regular rhythm and no JVD GI normal to inspection, nondistended, normoactive bowel sounds and soft to palpation Extremity Extremity Narrative: Left lower extremity appropriately splinted and bandaged. Right lower extremity unremarkable. Skin no rashes or lesions noted, no wounds and no jaundice Neuro CN's II-XII intact bilaterally Psych affect normal Assessment & Plan Assessment/Plan (1) Trimalleolar fracture of ankle, closed: QUALIFIERS: Encounter type: initial encounter Laterality: left Qualified Code(s): S82.852A - Displaced trimalleolar fracture of left lower leg, initial encounter for closed fracture PLAN: Patient is a 76-year-old female who presents to the hospital medicine service on consult from podiatry who is the primary service for left trimalleolar ankle fracture. 1) COPD Not in acute exacerbation, currently satting 95% on 3 L via nasal cannula, which is patient baseline. Continue home montelukast and budesonide, bronchodilators ordered. Continue supplemental oxygen to maintain saturations above 90%. 2) HTN Elevated, not within goal. Continue losartan, as needed hydralazine ordered. 3) DM2 Home pioglitazone and glimepiride continued, Accu-Cheks with sliding-scale insulin ordered. 4) CKD stage IIIb Creatinine is 1.65, which is at baseline. 5) trimalleolar fracture of the left ankle Left leg splinted by podiatry in the ED. Plan is for left ankle surgery on 01/28 or 01/29, management per podiatry. DVT prophylaxis - Lovenox Patient seen by Anthony Hyde PA-C, under the supervision of Dr. Jay. Time spent on patient care: 9 minutes.. Documented by User: Dr. Ying Jay DO 01/27/22 13:03 Subjective Subjective This patient was seen in conjunction with GENEVA Hinkle. The following is representation my independent history and physical examination. Please see below for addendum above. Patient reports that her pain is controlled with the pain medication. She is on her baseline oxygen of 3 L. She denies any current respiratory issues. She has no history of heart issues. Surgical plans are for the next 24 to 48 hours. Objective Data Lab / Micro Data Result Diagrams: 01/26/22 17:10 01/27/22 05:20 Physical Exam Const Constitutional Narrative: Obese older white female sitting up in bed currently on 3 L nasal cannula, appears comfortable and nontoxic, eating breakfast and watching television. Exam Limitations: no limitations Nutritional Appearance: obese HEENT head/scalp atraumatic, moist oral mucous membranes and oropharynx normal HEENT Narrative: Dentures in place, Mallampati 2, no thrush Head and Scalp: normocephalic Resp normal respiratory effort, no retractions, no use of accessory muscles and clear to auscultation bilaterally Resp Narrative: Diffusely diminished without any adventitious sounds, no signs of respiratory distress Auscultation: Negative for crackles, rales, rhonchi or wheezes Cardio regular rate, regular rhythm, S1 normal heart sound, S2 normal heart sound, no murmurs, no rub, no gallops, no clicks and no JVD GI normal to inspection, nondistended, normoactive bowel sounds, soft to palpation, non-tender and non-distended; Negative for hepatosplenomegaly Extremity no clubbing, cyanosis or edema Extremity Narrative: Left lower extremity and posterior splint, cap refill is 2+ bilateral lower extremities Neuro oriented x3, moves all extremities and no focal motor deficits Sensorium / Orientation: awake and alert Speech: speech normal Assessment & Plan Assessment/Plan (1) Trimalleolar fracture of ankle, closed: QUALIFIERS: Encounter type: initial encounter Laterality: left Qualified Code(s): S82.852A - Displaced trimalleolar fracture of left lower leg, initial encounter for closed fracture PLAN: Assessment: Left lower extremity trimalleolar fracture DM-2 COPD with chronic O2 dependence Hypertension CKD stage IIIb Hyperlipidemia GERD Depression Plan: -Preoperative EKG reviewed without any ST-T wave changes and currently in normal sinus rhythm -Preoperative risk calculator performed and on chart -Patient is on baseline oxygen at 3 L -Continue oral diabetic meds -Hemoglobin A1c is 7.0 -Fasting blood sugar was 78 this morning -We will start sliding scale insulin with meals -PT/OT consultation -Anticipate patient will be nonweightbearing for some time after surgery -We will likely need placement at discharge as there is limited assistance at home and her is blind -Case management consult in place Charges/Coding Visit Charges Inpatient E&M: 60662 Subs Hosp L2
--- NOTE | 2022-01-27 11:01 | PCM.PROGNOTE ---
Subjective Subjective Patient was seen this morning for follow up on left ankle fracture. He is resting in bed, she relates there is pain to the ankle and the pain medication only helps for a little bit. No complaints of fever, chills, nausea, vomiting, or calf pain. Objective Data Objective Data Vital Signs: Vital Signs Temp Pulse Resp BP Pulse Ox 99.0 F 97 18 157/87 H 95 01/27/22 07:46 01/27/22 07:46 01/27/22 07:46 01/27/22 07:46 01/27/22 07:46 Oxygen Flow Rate (L/min) [4] 4 Oxygen Flow Rate (L/min) [3] 4 Oxygen Flow Rate (L/min) [1 ( 2 Initial Baseline)] Oxygen Flow Rate (L/min) 3 Oxygen Delivery Method [4] Nasal Cannula Oxygen Delivery Method [3] Nasal Cannula Oxygen Delivery Method [2] Nasal Cannula Oxygen Delivery Method [1 ( Nasal Cannula Initial Baseline)] Oxygen Delivery Method Nasal Cannula Weight: 93.6 kg Body Mass Index (BMI) 32.3 Intake & Output: Intake and Output for Last 24 Hours 01/25/22 01/26/22 01/27/22 23:59 23:59 23:59 Intake Total 1000 / 1000 Balance 1000 / 1000 Lab / Micro Data Result Diagrams: 01/26/22 17:10 01/27/22 05:20 Labs: Laboratory Results - last 24 hr 01/26/22 17:10: WBC 7.2, RBC 3.81 L, Hgb 12.0, Hct 37.8, MCV 99.2 H, MCH 31.5, MCHC 31.7 L, RDW Std Deviation 50.8 H, RDW Coeff of Tessa 14.1, Plt Count 235, MPV 9.9, Immature Gran % (Auto) 0.600, Neut % (Auto) 80.8 H, Lymph % (Auto) 9.5 L, [place] % (Auto) 7.5, Eos % (Auto) 1.3, Baso % (Auto) 0.3, Absolute Neuts (auto) 5.8, Absolute Lymphs (auto) 0.68 L, Nucleated RBC % 0 01/26/22 17:10: Sodium 135 L, Potassium 5.3 H, Chloride 103, Carbon Dioxide 27.0, Anion Gap 5, BUN 35 H, Creatinine 2.05 H, Estim Creat Clear Calc 23.06, Est GFR (MDRD) Af Amer 30 L, Est GFR (MDRD) Non-Af 25 L, BUN/Creatinine Ratio 17.1, Glucose 277 H, Calcium 8.4 L, Total Bilirubin 0.50, AST 14 L, ALT 13, Alkaline Phosphatase 107, Total Protein 7.8, Albumin 3.0 L, Globulin 4.8 H, Albumin/Globulin Ratio 0.6 L 01/26/22 22:32: POC Glucose 210 H 01/27/22 05:20: Sodium 137, Potassium 4.4, Chloride 107, Carbon Dioxide 24.0, Anion Gap 6, BUN 31 H, Creatinine 1.65 H, Estim Creat Clear Calc 28.65, Est GFR (MDRD) Af Amer 39 L, Est GFR (MDRD) Non-Af 32 L, BUN/Creatinine Ratio 18.8, Glucose 78, Calcium 8.3 L 01/27/22 05:20: Hemoglobin A1c 7.0 H 01/27/22 06:26: POC Glucose 87 Micro: Microbiology 01/26/22 16:59 Nasal Secretion SARS-CoV-2 Antigen (Rapid) - Final Radiography Diagnostic Testing: Radiology Impression Ankle X-Ray 01/26/22 16:30 IMPRESSION: Trimalleolar fracture with widening of the tibiotalar joint suggesting instability. Electronically Signed: Cisco Gamboa MD ([facility]) at 16:52 EDT , Chest X-Ray 01/26/22 16:43 IMPRESSION: No acute cardiopulmonary process. Electronically Signed: Cisco Gamboa MD (Brooks) at 17:49 EDT , Lower Extremity CT 01/26/22 17:21 IMPRESSION: Trimalleolar fracture with tibiotalar joint widening. Electronically Signed: Cisco Gamboa MD (Brooks) at 18:26 EDT , Ankle X-Ray 01/26/22 19:00 IMPRESSION: Improved alignment of trimalleolar fracture. Electronically Signed: Cisco Gamboa MD (Brooks) at 19:18 EDT , Physical Exam Const alert, oriented x3 and no apparent distress Extremity Extremity Narrative: Splint clean, dry and intact to the left foot/ankle/leg, CFT <2 seconds to all toes with intact sensation left foot, no calf pain bilateral. Assessment & Plan Assessment/Plan (1) Closed left trimalleolar fracture: (2) Ankle pain, left: (3) Diabetes mellitus: QUALIFIERS: Diabetes mellitus type: type 2 Diabetes mellitus senior care insulin use: without assisted living nursing director use Diabetes mellitus complication status: with kidney complications Diabetes mellitus complication detail: with chronic kidney disease Chronic kidney disease stage: stage 3 (moderate) Chronic kidney disease stage 3 subtype: stage 3b (GFR 30-44) Qualified Code(s): E11.22 - Type 2 diabetes mellitus with diabetic chronic kidney disease; N18.32 - Chronic kidney disease, stage 3b PLAN: Evaluation performed. Reviewed left ankle xrays and CT scan. Plan for surgery on left ankle on Friday or Friday this coming week pending OR availability. No weightbearing left foot. Keep left foot elevated. 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 SCD right lower extremity. Lovenox 30mg subcutaneous daily. Medicine team on consult - appreciate assistance.
[2022-01-27] MEDS: Insulin Lispro 100 UNIT/ML INSULN.PEN SC ×2 (11:20→17:20)
[2022-01-27] MEDS: Magnesium Hydroxide 30 ML UDC 15 ML PO (11:25)
[2022-01-27] MEDS: Docusate Sodium 100 MG Capsule PO ×2 (11:25→22:05)
[2022-01-27 11:26] LABS: Bedside Glucose 333 mg/dL (74-106)
[2022-01-27 16:16] LABS: Bedside Glucose 201 mg/dL (74-106)
[2022-01-27] MEDS: Bisoprolol Fumarate 5 MG Tablet PO (17:19)
[2022-01-27] MEDS: HYDROmorphone 1 MG/ML Syringe IV (18:46)
[2022-01-27] MEDS: traZODone 50 MG Tablet 150 MG PO (22:04)
[2022-01-27] MEDS: Atorvastatin Calcium 10 MG Tablet PO (22:04)
[2022-01-27 22:25] LABS: Bedside Glucose 185 mg/dL (74-106)
[2022-01-28] VITALS (12 sets, daily range): BP systolic 128–169; BP diastolic 62–76; PULSE 85–113; RESP 16–20; TEMP 36.6–37.5; O2SAT 91–95
[2022-01-28 05:20] LABS: Absolute Lymphocyte Count 0.94 X10^3/uL (0.83-4.51); Absolute Neutrophil Count 6.1 X10^3/uL (2.0-7.7); Basophil# 0.03 X10^3/uL; Basophil% 0.4 % (0-1); Eosinophil# 0.07 X10^3/uL; Eosinophils% 0.9 % (0-5); Hematocrit 34.4 % (37-47); Hemoglobin 10.4 g/dL (12.0-15.0); Lymphocyte # 0.94 X10^3/ul (0.83-4.51); Lymphocyte % 11.9 % (19-41); Mean Corp Hgb Conc 30.2 g/dL (32-36); Mean Corpuscular Hgb 30.7 pg (27.0-32.0); Mean Corpuscular Volume 101.5 fL (81-99); Monocyte% 10.1 % (0-10); NRBC Flagged by Analyzer 0 % (0-5); Neutrophil # 6.06 X10^3/uL (2.7-7.7); Neutrophil % 76.3 % (47-70); Platelet Count 220 K/mm3 (150-450); RBC Distribution Width CV 14.1 % (11.6-14.6); RBC Distribution Width SD 51.7 fl (35.1-43.9); Red Blood Count 3.39 M/mm3 (4.2-5.4); White Blood Count 7.9 K/mm3 (4.4-11.0)
[2022-01-28 05:46] LABS: Anion Gap 5 (5-15); BUN 26 mg/dL (7-18); BUN/Creat Ratio 15.9 RATIO (10-20); Calcium,Total 8.3 mg/dL (8.5-10.1); Chloride 102 mmol/L (98-107); Creatinine, Serum 1.64 mg/dL (0.55-1.02); EST Glomerular Filtration Rate 32 mL/min (>60); Est Glom Filt Rate - Afr Amer 39 mL/min (>60); Estimated Creatinine Clearance 28.82 ml/min; Glucose 195 mg/dL (74-106); Potassium 5.7 mmol/L (3.5-5.1); Sodium Level 134 mmol/L (136-145)
[2022-01-28] MEDS: 0.9% Saline Lock 10 ML Syringe IV (06:37)
[2022-01-28] MEDS: HYDROmorphone 1 MG/ML Syringe IV (06:38)
[2022-01-28] MEDS: Insulin Lispro 100 UNIT/ML INSULN.PEN SC ×3 (06:40→16:11)
[2022-01-28] MEDS: Enoxaparin 30 MG/0.3 ML Syringe SC (06:41)
[2022-01-28] MEDS: Budesonide Respules 0.5 MG/2 ML AMPUL.NEB. INHALATION ×2 (06:45→19:30)
[2022-01-28] MEDS: Ipratropium/Albuterol Sulfate 3 ML AMPUL.NEB INHALATION ×3 (06:45→19:30)
[2022-01-28 06:46] LABS: Bedside Glucose 228 mg/dL (74-106)
[2022-01-28 08:03] LABS: Vitamin D,25 Hydroxy 26.6 ng/mL
--- NOTE | 2022-01-28 08:30 | PCM.PROGNOTE ---
Subjective Subjective Patient was seen this morning for follow up on left ankle fracture. She is resting comfortably in bed, relates to some ankle pain, but does appear controlled at this time. She has no complaints of fever, chills, nausea, vomiting or calf pain. No new complaints. Objective Data Objective Data Vital Signs: Vital Signs Temp Pulse Resp BP Pulse Ox 98.4 F 93 16 142/65 H 91 01/28/22 06:00 01/28/22 06:45 01/28/22 06:45 01/28/22 06:00 01/28/22 06:45 Oxygen Flow Rate (L/min) [4] 4 Oxygen Flow Rate (L/min) [3] 4 Oxygen Flow Rate (L/min) [1 ( 2 Initial Baseline)] Oxygen Flow Rate (L/min) 4 Oxygen Delivery Method [4] Nasal Cannula Oxygen Delivery Method [3] Nasal Cannula Oxygen Delivery Method [2] Nasal Cannula Oxygen Delivery Method [1 ( Nasal Cannula Initial Baseline)] Oxygen Delivery Method Nasal Cannula Weight: 93.6 kg Body Mass Index (BMI) 32.3 Intake & Output: Intake and Output for Last 24 Hours 01/26/22 01/27/22 01/28/22 23:59 23:59 23:59 Intake Total 1000 / 1000 1500 / 1500 Output Total 950 / 1750 1350 / 1350 Balance 1000 / 1000 550 / -250 -1350 / -1350 Lab / Micro Data Result Diagrams: 01/28/22 04:56 01/28/22 04:56 Labs: Laboratory Results - last 24 hr 01/27/22 05:20: Hemoglobin A1c 7.0 H 01/27/22 05:20: Vitamin D 25-Hydroxy 26.6 01/27/22 11:18: POC Glucose 333 H 01/27/22 16:11: POC Glucose 201 H 01/27/22 22:03: POC Glucose 185 H 01/28/22 04:56: WBC 7.9, RBC 3.39 L, Hgb 10.4 L, Hct 34.4 L, MCV 101.5 H, MCH 30.7, MCHC 30.2 L, RDW Std Deviation 51.7 H, RDW Coeff of Tessa 14.1, Plt Count 220, MPV 10.0, Immature Gran % (Auto) 0.400, Neut % (Auto) 76.3 H, Lymph % (Auto) 11.9 L, [place] % (Auto) 10.1 H, Eos % (Auto) 0.9, Baso % (Auto) 0.4, Absolute Neuts (auto) 6.1, Absolute Lymphs (auto) 0.94, Nucleated RBC % 0 01/28/22 04:56: Sodium 134 L, Potassium 5.7 H, Chloride 102, Carbon Dioxide 27.0, Anion Gap 5, BUN 26 H, Creatinine 1.64 H, Estim Creat Clear Calc 28.82, Est GFR (MDRD) Af Amer 39 L, Est GFR (MDRD) Non-Af 32 L, BUN/Creatinine Ratio 15.9, Glucose 195 H, Calcium 8.3 L 01/28/22 06:31: POC Glucose 228 H Micro: Microbiology 01/26/22 16:59 Nasal Secretion SARS-CoV-2 Antigen (Rapid) - Final Physical Exam Const alert, oriented x3 and no apparent distress Extremity Extremity Narrative: Splint clean, dry and intact to the left foot/ankle/leg, CFT <2 seconds to all toes with intact sensation left foot, no calf pain bilateral. Assessment & Plan Assessment/Plan (1) Closed left trimalleolar fracture: (2) Ankle pain, left: (3) Diabetes mellitus: QUALIFIERS: Diabetes mellitus type: type 2 Diabetes mellitus salvage determiner insulin use: without skilled nursing use Diabetes mellitus complication status: with kidney complications Diabetes mellitus complication detail: with chronic kidney disease Chronic kidney disease stage: stage 3 (moderate) Chronic kidney disease stage 3 subtype: stage 3b (GFR 30-44) Qualified Code(s): E11.22 - Type 2 diabetes mellitus with diabetic chronic kidney disease; N18.32 - Chronic kidney disease, stage 3b PLAN: Re-evaluation performed. Reviewed left ankle xrays and CT scan. Plan for surgery Friday (tomorrow) early afternoon. No weightbearing left foot. Keep left foot elevated. Pain management - Acetaminophen, Oxyir, Dilaudid. SCD right lower extremity. Lovenox 30mg subcutaneous daily - hold Lovenox tomorrow AM. Medicine team on consult - appreciate assistance.
[2022-01-28] MEDS: oxyCODONE 5 MG Tablet PO (09:08)
[2022-01-28] MEDS: Acetaminophen 325 MG Tablet 650 MG PO (09:08)
[2022-01-28] MEDS: Loratadine 10 MG Tablet PO (09:11)
[2022-01-28] MEDS: Ferrous Sulfate 325 MG Tablet PO (09:11)
[2022-01-28] MEDS: Aspirin 81 MG TAB.CHEW PO (09:11)
[2022-01-28] MEDS: Venlafaxine XR 150 MG Capsule PO (09:12)
[2022-01-28] MEDS: Docusate Sodium 100 MG Capsule PO ×2 (09:12→22:03)
[2022-01-28] MEDS: Pantoprazole Sodium 40 MG Tablet PO (09:12)
[2022-01-28] MEDS: Cyanocobalamin 500 MCG Tablet 1000 MCG PO (09:13)
[2022-01-28] MEDS: Montelukast 10 MG Tablet PO (09:13)
[2022-01-28] MEDS: buPROPion (SR) 150 MG Tablet.SA PO ×2 (09:14→22:03)
--- NOTE | 2022-01-28 11:06 | PN.HOSP_ITS ---
Subjective Subjective Patient seen and Ament. She had no active complaints and had an uneventful night. Review of systems otherwise negative. Her potassium is 5.7 today. Objective Data Objective Data Vital Signs: Vital Signs Temp Pulse Resp BP Pulse Ox 97.8 F 92 17 128/62 H 94 01/28/22 09:40 01/28/22 09:40 01/28/22 09:40 01/28/22 09:40 01/28/22 09:40 Oxygen Flow Rate (L/min) [4] 4 Oxygen Flow Rate (L/min) [3] 4 Oxygen Flow Rate (L/min) [1 ( 2 Initial Baseline)] Oxygen Flow Rate (L/min) 4 Oxygen Delivery Method [4] Nasal Cannula Oxygen Delivery Method [3] Nasal Cannula Oxygen Delivery Method [2] Nasal Cannula Oxygen Delivery Method [1 ( Nasal Cannula Initial Baseline)] Oxygen Delivery Method Nasal Cannula Weight: 206 lb 5.643 oz Body Mass Index (BMI) 32.3 Intake & Output: Intake and Output for Last 24 Hours 01/26/22 01/27/22 01/28/22 23:59 23:59 23:59 Intake Total 1000 / 1000 1500 / 1500 Output Total 950 / 1750 1350 / 1350 Balance 1000 / 1000 550 / -250 -1350 / -1350 Lab / Micro Data Result Diagrams: 01/28/22 04:56 01/28/22 04:56 Labs: Laboratory Results - last 24 hr 01/27/22 05:20: Vitamin D 25-Hydroxy 26.6 01/27/22 11:18: POC Glucose 333 H 01/27/22 16:11: POC Glucose 201 H 01/27/22 22:03: POC Glucose 185 H 01/28/22 04:56: WBC 7.9, RBC 3.39 L, Hgb 10.4 L, Hct 34.4 L, MCV 101.5 H, MCH 30.7, MCHC 30.2 L, RDW Std Deviation 51.7 H, RDW Coeff of Tessa 14.1, Plt Count 220, MPV 10.0, Immature Gran % (Auto) 0.400, Neut % (Auto) 76.3 H, Lymph % (Auto) 11.9 L, [place] % (Auto) 10.1 H, Eos % (Auto) 0.9, Baso % (Auto) 0.4, Absolute Neuts (auto) 6.1, Absolute Lymphs (auto) 0.94, Nucleated RBC % 0 01/28/22 04:56: Sodium 134 L, Potassium 5.7 H, Chloride 102, Carbon Dioxide 27.0, Anion Gap 5, BUN 26 H, Creatinine 1.64 H, Estim Creat Clear Calc 28.82, Est GFR (MDRD) Af Amer 39 L, Est GFR (MDRD) Non-Af 32 L, BUN/Creatinine Ratio 15.9, Glucose 195 H, Calcium 8.3 L 01/28/22 06:31: POC Glucose 228 H Micro: Microbiology 01/26/22 16:59 Nasal Secretion SARS-CoV-2 Antigen (Rapid) - Final Physical Exam Const alert, oriented x3 and no apparent distress Exam Limitations: no limitations HEENT head/scalp atraumatic and moist oral mucous membranes Head and Scalp: normocephalic Eyes PERRL, EOMs intact bilaterally and conjunctivae normal Neck no lymphadenopathy and supple Resp Resp Narrative: Mildly diminished breath sounds bibasally, no wheezes or crackles. On 4L of oxygen by nasal canula, which is her baseline. Cardio regular rate, regular rhythm, S1 normal heart sound, S2 normal heart sound and no murmurs GI normal to inspection, nondistended, normoactive bowel sounds, soft to palpation, non-tender and non-distended Extremity Extremity Narrative: LLE wrapped in bandage. Peripheral Pulses: Yes pulses 2+ throughout Neuro oriented x3, CN's II-XII intact bilaterally and moves all extremities Sensorium / Orientation: awake and alert Psych affect normal Assessment & Plan Assessment/Plan (1) Trimalleolar fracture of ankle, closed: QUALIFIERS: Encounter type: initial encounter Laterality: left Qualified Code(s): S82.852A - Displaced trimalleolar fracture of left lower leg, initial encounter for closed fracture (2) Hyperkalemia: PLAN: #Left ankle fracture * podiatry on board. * for surgery tomorrow afternoon * to keep left foot elevated and nonweight bearing * fall precautions * on tylenol, oxycodone and dilaudid for pain * #Hyperkalemia * Potassium is 5.7. Not hemolyzed. Hold losartan and give Kayexalate. Will monitor potassium level * #Hypertension * losartan on hold due to hyperkalemia * DVT prophylaxis: SCDs * * Charges/Coding Visit Charges Inpatient E&M: 11317 Subs Hosp L2
[2022-01-28] MEDS: Sodium Polystyrene Sulfonate 15 GM/60 ML UDC 30 GM PO (11:36)
[2022-01-28 12:05] LABS: Bedside Glucose 212 mg/dL (74-106)
--- NOTE | 2022-01-28 15:23 | CASEMGMT ---
MIRZA HODGES Assessment: Face to Face with pt for initial transition planning/care coordination assessment. MIRZA HODGES introduced self and role at [facility], pt voices understanding and consents to assessment. Pt is A/O x4 and answers all questions appropriately at this time. Pt lying in bed with grandson at bedside. Pt agreeable to complete assessment with grandson present. Care providers, pharmacy, and demographics verified/updated. Admitting Dx: ankle fx PCP:Linda Specialists: noman Jay Pharmacy: [facility] Insurance: [facility] Prescription Benefit: yes LW/HPOA: Pt states she has a LW/DPOA and her DPOA is her , Jony Guardado. Pt aware this is not on file at [facility] and she may bring in to be scanned into her chart. LNOK: Jony Guardado, ; Abi Zamudio, dtr Living Arrangements: Pt lives with in a two story house with a ramp to enter. Pt reports she was I in ADL's prior to this fx and denies concerns at home. States her grandson and dtr are very involved and available when she needs. Transportation: Pt drives self and denies concerns with transportation. DME/HHC/SNF: Pt has a quad cane, 2-3 FWW's, O2 at 3-4L cont through [place], pt has portable tank at [facility]. Pt denies hx of HHC or SNF stays. Discussed options at dc. Pt to have OR tomorrow. Pt states she will see how she does after surgery to determine plan. Pt designates her dtr Abi to discuss dc plans with. Pt states no further concerns/needs. CM to follow. Advised pt to ask CM if any further question/concerns/needs arise, voices understanding. Pt Goal: TBD pending course post surgery Plan: TBD pending course post surgery
[2022-01-28] MEDS: Bisoprolol Fumarate 5 MG Tablet PO (16:12)
[2022-01-28 16:30] LABS: Bedside Glucose 216 mg/dL (74-106)
[2022-01-28] MEDS: hydrALAZINE 20 MG/ML Vial 10 MG IV (19:51)
[2022-01-28] MEDS: Atorvastatin Calcium 10 MG Tablet PO (22:03)
[2022-01-28] MEDS: traZODone 50 MG Tablet 150 MG PO (22:03)
[2022-01-28 22:10] LABS: Bedside Glucose 289 mg/dL (74-106)
[2022-01-29] VITALS (22 sets, daily range): BP systolic 134–186; BP diastolic 50–87; PULSE 96–111; RESP 10–24; TEMP 36.7–37.3; O2SAT 86–97; BMI 32.3
[2022-01-29 04:26] LABS: Bedside Glucose 181 mg/dL (74-106)
[2022-01-29] MEDS: Ipratropium/Albuterol Sulfate 3 ML AMPUL.NEB INHALATION ×3 (07:09→19:18)
[2022-01-29] MEDS: Budesonide Respules 0.5 MG/2 ML AMPUL.NEB. INHALATION ×2 (07:09→19:18)
[2022-01-29 08:55] LABS: Anion Gap 6 (5-15); BUN 35 mg/dL (7-18); BUN/Creat Ratio 19.9 RATIO (10-20); Calcium,Total 8.5 mg/dL (8.5-10.1); Chloride 105 mmol/L (98-107); Creatinine, Serum 1.76 mg/dL (0.55-1.02); EST Glomerular Filtration Rate 30 mL/min (>60); Est Glom Filt Rate - Afr Amer 36 mL/min (>60); Estimated Creatinine Clearance 26.86 ml/min; Glucose 199 mg/dL (74-106); Sodium Level 137 mmol/L (136-145)
[2022-01-29 09:10] LABS: Bedside Glucose 191 mg/dL (74-106)
--- NOTE | 2022-01-29 11:03 | PN.HOSP_ITS ---
Documented by User: Anthony BEAN 01/29/22 11:16 Subjective Subjective Patient is a 76-year-old female comfortably resting in bed, alert and orient x3. Patient denies development of any new symptoms overnight. Does not appear in acute distress. Objective Data Objective Data Vital Signs: Vital Signs Temp Pulse Resp BP Pulse Ox 98.3 F 100 18 134/70 H 94 01/29/22 08:29 01/29/22 08:29 01/29/22 08:29 01/29/22 08:29 01/29/22 08:29 Oxygen Flow Rate (L/min) [4] 4 Oxygen Flow Rate (L/min) [3] 4 Oxygen Flow Rate (L/min) [1 ( 2 Initial Baseline)] Oxygen Flow Rate (L/min) 3 Oxygen Delivery Method [4] Nasal Cannula Oxygen Delivery Method [3] Nasal Cannula Oxygen Delivery Method [2] Nasal Cannula Oxygen Delivery Method [1 ( Nasal Cannula Initial Baseline)] Oxygen Delivery Method Nasal Cannula Weight: 206 lb 5.643 oz Body Mass Index (BMI) 32.3 Intake & Output: Intake and Output for Last 24 Hours 01/27/22 01/28/22 01/29/22 23:59 23:59 23:59 Intake Total 1500 / 1500 300 / 300 Output Total 950 / 1750 1650 / 2050 800 / 800 Balance 550 / -250 -1650 / -1750 -500 / -500 Lab / Micro Data Result Diagrams: 01/28/22 04:56 01/29/22 08:17 Labs: Laboratory Results - last 24 hr 01/28/22 11:41: POC Glucose 212 H 01/28/22 16:09: POC Glucose 216 H 01/28/22 22:01: POC Glucose 289 H 01/29/22 04:21: POC Glucose 181 H 01/29/22 08:17: Sodium 137, Potassium 5.0, Chloride 105, Carbon Dioxide 26.0, Anion Gap 6, BUN 35 H, Creatinine 1.76 H, Estim Creat Clear Calc 26.86, Est GFR (MDRD) Af Amer 36 L, Est GFR (MDRD) Non-Af 30 L, BUN/Creatinine Ratio 19.9, Glucose 199 H, Calcium 8.5 01/29/22 08:36: POC Glucose 191 H Micro: Microbiology 01/26/22 16:59 Nasal Secretion SARS-CoV-2 Antigen (Rapid) - Final Physical Exam Const alert, oriented x3 and no apparent distress HEENT head/scalp atraumatic and moist oral mucous membranes Head and Scalp: normocephalic Eyes PERRL, EOMs intact bilaterally and conjunctivae normal Neck no lymphadenopathy, supple and no JVD Resp normal respiratory effort, no retractions and no use of accessory muscles Cardio regular rate, regular rhythm and no JVD GI normal to inspection, nondistended, normoactive bowel sounds Extremity normal to inspection Skin no rashes or lesions noted Neuro CN's II-XII intact bilaterally Psych affect normal Assessment & Plan Assessment/Plan (1) Trimalleolar fracture of ankle, closed: QUALIFIERS: Encounter type: initial encounter Laterality: left Qualified Code(s): S82.852A - Displaced trimalleolar fracture of left lower leg, initial encounter for closed fracture PLAN: Patient is a 76-year-old female who presents to the hospital medicine service on consult from podiatry who is the primary service for left trimalleolar ankle fracture. 1) COPD Not in acute exacerbation, currently satting 95% on 3 L via nasal cannula, which is patient baseline. Continue home montelukast and budesonide, bronchodilators ordered. Continue supplemental oxygen to maintain saturations above 90%. 2) HTN Stable. Continue losartan, as needed hydralazine ordered. 3) DM2 Home pioglitazone and glimepiride continued, Accu-Cheks with sliding-scale insulin ordered. 4) CKD stage IIIb Creatinine is 1.7, which is at baseline. 5) trimalleolar fracture of the left ankle Left leg splinted by podiatry in the ED. patient is to undergo surgery today. Perioperative care per podiatry. DVT prophylaxis - Lovenox Patient seen by Anthony Hyde PA-C, under the supervision of Dr. Kirkland. Time spent on patient care: 7 minutes.. Documented by User: Dr. Bharati Kirkland MD 01/29/22 12:58 Objective Data Lab / Micro Data Result Diagrams: 01/28/22 04:56 01/29/22 08:17 Charges/Coding Addendum Addendum: Patient seen by Anthony Hyde PA-C under my supervision Patient seen and examined. She had no active complaints and feels well. Review of systems is otherwise negative. She is going for surgery today. O/E: Const alert, oriented x3 and no apparent distress General Appearance: cooperative HEENT normocephalic, head/scalp atraumatic, hearing grossly normal bilaterally and moist oral mucous membranes Eyes PERRL, EOMs intact bilaterally and conjunctivae normal Neck no lymphadenopathy, supple and no JVD Resp normal respiratory effort and clear to auscultation bilaterally Cardio regular rate, regular rhythm, S1 normal heart sound, S2 normal heart sound and no murmurs GI normal to inspection, nondistended, normoactive bowel sounds and soft to palpation Extremity normal to inspection, left ankle wrapped in bandage Skin no rashes or lesions noted Neuro oriented x3, CN's II-XII intact bilaterally and moves all extremities Sensorium / Orientation: awake and alert Psych affect normal Assessment and plan #Left ankle fracture * for surgery today * podiatry is on board * to keep foot elevated and nonweight beariing * fall precautions * on tylenol, oxycodone and dilaudid for pain * #Hyperkalemia: resolved. Losartan remains on hold. Potassium is 5. #Hypertension: losartan on hold due to hyperkalemia, which has now resolved. DVT prophylaxis: SCDs, lovenox Rest as per Anthony Hyde PA-C's note, which I have reviewed and endorsed. Total time spent on care of patient today: 16 mins with Anthony Hyde PA-C spending 7 mins on the care of the patient, making a total of 23 mins. Visit Charges Inpatient E&M: 76355 Subs Hosp L2
--- NOTE | 2022-01-29 12:07 | CASEMGMT ---
TC to [facility], pt O2 script is 3L continuous.
[2022-01-29 12:15] LABS: Bedside Glucose 228 mg/dL (74-106)
--- NOTE | 2022-01-29 13:16 | NURSING ---
PT OFF UNIT VIA BED FOR SURGERY
--- NOTE | 2022-01-29 13:24 | SUR.PREOP ---
THIS RN CALLED DR. ASCENCIO TO VERIFY IF HE WANTS AN ANTIBIOTIC ORDERED FOR THE PT, NO ANSWER LEFT A MESSAGE AND A CALL BACK NUMBER.
[2022-01-29] MEDS: Bupivacaine 0.5% PF 10 ML VIAL (13:35)
[2022-01-29] MEDS: Cefazolin 2 GM in 0.9% Normal Saline 100 ML IV (14:00)
--- NOTE | 2022-01-29 14:31 | RAD_ITS ---
STUDY: INTRAOPERATIVE FLUOROSCOPY TECHNIQUE: The examination was performed with referring physician in attendance. Under fluoroscopic observation, fluoroscopic images were obtained. Radiologist was not present for the study. Radiologist did not perform the procedure. This dictation is for documentation of the radiation dosage only. There is no interpretation of the images. TOTAL NUMBER OF IMAGES: 1 COMPARISON: None RADIATION DOSE: 2.72 mGy FLUOROSCOPY TIME: 168.7 seconds REASON FOR EXAM: FX Female, 76 years old. FINDINGS: There is a metal sideplate transfixing the distal fibula. There are cortical screws holding the plate in place. K wires in the fracture of the medial malleolus. RAD/Ankle 2 Views IMPRESSION: Fluoroscopic assistance images were obtained. Dictation for documentation purposes only. Electronically Signed: Juan M Prather MD at 17:13 EDT ,
--- NOTE | 2022-01-29 17:00 | PCM.OPRPT ---
Report of Operation Date of Procedure: 01/29/22 Pre-Operative Diagnosis: Trimalleolus ankle fracture, left Post-Operative Diagnosis: Same Surgery/Procedure Performed:: Open reduction internal fixation of left ankle fracture Surgeon: Todd Crump delivery driver/customer service: Ila Type of Anesthesia: General and Local Specimen's removed: None Estimated Blood Loss (mL): 10mL Description of Procedure: Indications: This is a year old female who sustained a left ankle fracture. Xrays and CT scan obtained, there was displaced ankle trimalleolar fracture. Patient elected to proceed with open reduction internal fixation of the fracture. The procedure was reviewed with her in detail. The rationale of the procedure was reviewed with her. The goals and the expectations were discussed and reviewed with her. The possible benefits vs risks and all potential complications were discussed and reviewed with the patient. The patient was advised the risks include but are not limited to pain, swelling, blood clots, numbness, loss of function, arthritis, disability, infection, nonhealing, delayed healing, wounds, chronic pain, loss of function, loss of limb, loss of life. The patient expressed understanding and agreement, and elected to proceed forward with the procedure. All of her questions were answered. The consent forms were reviewed with her and she freely signed it. No guarantees were given or implied. Operative Procedure: The patient was brought back to the operating room and was placed on the operating room table in the supine position. The patient was carefully secured to the operating room table with a safety belt around her waist. The patient received 2gg of IV Ancef for antibiotic prophylaxis. A well padded pneumatic tourniquet was applied around the left thigh. The left lower extremity was scrubbed, prepped, and draped in the usual aseptic fashion. The left foot/ankle was elevated for 3 minutes and the thigh pneumatic tourniquet was inflated to 300mmHg. The ankle was noted to be unstable. Using a 15 blade, a skin incision was made overlying the lateral malleolus. Careful dissection was completed down to the lateral malleolus fracture. The periosteum was left intact. There was an oblique comminuted lateral malleolus fracture. The fibula was brought out to length and was rotated back to normal position, it was stabilized with a bone clamp. The fracture was fixated using rigid open reduction internal fixation technique with 1 Arthrex a titanium distal fibular plate, which was applied across the fracture site using a total of five 2.7mm locking screws distally and four 3.5mm locking screws and one 3.5mm cortical screw proximally through the plate. The clamp was removed. There fracture was reduced, very stable, and in good position. This was confirmed visually as well as using intra operative fluoroscopy. Attention was directed to the medial malleolus. A skin incision was made overlying the medial malleolus using a 15 scalpel blade. Careful blunt dissection was completed down to the medial malleolus where the fracture was identified, it was displaced and comminuted. There was soft tissue inter position between the fracture fragments. This was composed of periosteum. The periosteum was moved out from in between the fracture fragments and the medial malleolus was reduced back manually into normal position. The medial malleolus fracture site was fixated - first attempted with 2 screws but due to the soft bone and comminuted nature of the fracture it was not stable so the screws were removed and site was fixated with 2 kwires. There fracture was reduced, stable, and in good position. This was confirmed visually as well as using intra operative fluoroscopy. There was noted to be some mild instability of the distal syndesmosis, and the syndesmosis was reduced, and fixated using one Arthrex Tightrope and appropriately tensioned. At this time, the distal ankle syndesmosis was stressed as well as with dorsiflexion external rotation stress test, and it was noted be be stable with no gapping present. The posterior malleolus was intact, properly aligned, and did not need to be fixated. At this time there was noted to be excellent stability to the ankle joint, range of motion was smooth and gliding normally. There was no popping, clicking, or crepitus present. Intraoperative fluoroscopy was used to check the site and it was noted fibular length and tib fib overlap was normal, ankle mortise with medial and lateral gutters in normal position/alignment with good positioning of the plate, screws, and tight rope. There was good bone to bone alignment of the fracture sites. There was excellent stability to the ankle / fracture site. The ankle was stressed under fluoroscopy and negative anterior drawer, normal talar tilt, no medial gutter gapping with external stress test, and no gapping or instability with Cotton test as noted above. The surgical site was flushed out with copious amounts of normal saline solution. The subcutaneous tissue was reapproximated using 2-0 Vicryl, and the skin was 3-0 Nylon. A dressing was applied which consisted of Betadine soaked adaptic, 4x4 gauze, Kerlix, webril, jose bandages, and well padded below knee posterior splint w/ heel offloaded. The pneumatic tourniquet was deflated and it was noted all hemostasis was achieved. There was immediate return of vascular flow to the foot/ankle, CFT < 2 seconds, and normal temperature present. Total tourniquet time was 120 minutes. Also of note, all vital structures, including all vital neurovascular and tendon structures were properly identified, protected and retracted as necessary. The patient tolerated the above procedure well and anesthesia well with no complications. The patient was transported to the recovery room in good condition and vital signs stable. Post op orders were placed, no weightbearing right foot, keep foot elevated. Keep dressing/splint clean, dry and intact. Patient will be followed as inpatient. Grafts/Implants Used: 1 arthrex plate and screws, 2 Kwires, 1 tightrope Complications None
--- NOTE | 2022-01-29 17:25 | RAD_ITS ---
EXAM: XR LEFT ANKLE COMPLETE, 3 OR MORE VIEWS CLINICAL INDICATION: post op TECHNIQUE: Frontal, lateral and oblique views of the left ankle. This report was created using [employer] report generation technology. COMPARISON: None. FINDINGS: BONES/JOINTS: There is a metal sideplate transfixing the distal fibula. There are cortical screws holding the plate in place. K wires in the fracture of the medial malleolus. Preservation of the joint space. No sclerotic or destructive changes observed. SOFT TISSUES: Unremarkable. No soft tissue swelling or gas. No radiopaque foreign body. RAD/Ankle min 3 Views IMPRESSION: Successful ORIF. Electronically Signed: Juan M Prather MD at 17:57 EDT ,
[2022-01-29 18:15] LABS: Bedside Glucose 297 mg/dL (74-106)
[2022-01-29] MEDS: oxyCODONE 5 MG Tablet PO ×2 (19:02→23:09)
[2022-01-29] MEDS: Bisoprolol Fumarate 5 MG Tablet PO (19:02)
[2022-01-29] MEDS: hydrALAZINE 20 MG/ML Vial 10 MG IV (20:44)
[2022-01-29] MEDS: Acetaminophen 325 MG Tablet 650 MG PO (20:44)
[2022-01-29] MEDS: 0.9% Saline Lock 10 ML Syringe IV (20:45)
[2022-01-29 21:21] LABS: Bedside Glucose 321 mg/dL (74-106)
[2022-01-29] MEDS: traZODone 50 MG Tablet 150 MG PO (21:34)
[2022-01-29] MEDS: buPROPion (SR) 150 MG Tablet.SA PO (21:34)
[2022-01-29] MEDS: Atorvastatin Calcium 10 MG Tablet PO (21:34)
[2022-01-29] MEDS: Docusate Sodium 100 MG Capsule PO (21:34)
[2022-01-29] MEDS: Insulin Lispro 100 UNIT/ML INSULN.PEN SC (21:35)
[2022-01-30] VITALS (16 sets, daily range): BP systolic 121–171; BP diastolic 53–77; PULSE 100–119; RESP 16–20; TEMP 36.7–37.4; O2SAT 92–100
[2022-01-30] MEDS: oxyCODONE 5 MG Tablet PO ×2 (04:50→09:55)
[2022-01-30] MEDS: Ipratropium/Albuterol Sulfate 3 ML AMPUL.NEB INHALATION ×3 (06:40→19:30)
[2022-01-30] MEDS: Budesonide Respules 0.5 MG/2 ML AMPUL.NEB. INHALATION ×2 (06:40→19:30)
[2022-01-30 06:46] LABS: Bedside Glucose 205 mg/dL (74-106)
[2022-01-30] MEDS: Acetaminophen 325 MG Tablet 650 MG PO (06:50)
[2022-01-30] MEDS: Insulin Lispro 100 UNIT/ML INSULN.PEN SC ×4 (06:51→21:24)
[2022-01-30] MEDS: 0.9% Saline Lock 10 ML Syringe IV ×3 (06:55→21:20)
[2022-01-30] MEDS: hydrALAZINE 20 MG/ML Vial 10 MG IV (06:55)
[2022-01-30] MEDS: Enoxaparin 30 MG/0.3 ML Syringe SC (06:57)
[2022-01-30] MEDS: Ferrous Sulfate 325 MG Tablet PO (08:20)
[2022-01-30] MEDS: Aspirin 81 MG TAB.CHEW PO (08:20)
[2022-01-30] MEDS: Loratadine 10 MG Tablet PO (08:21)
[2022-01-30] MEDS: Docusate Sodium 100 MG Capsule PO ×2 (08:21→21:25)
[2022-01-30] MEDS: Losartan Potassium 25 MG Tablet PO (08:22)
[2022-01-30] MEDS: Montelukast 10 MG Tablet PO (08:22)
[2022-01-30] MEDS: Pantoprazole Sodium 40 MG Tablet PO (08:22)
[2022-01-30] MEDS: Venlafaxine XR 150 MG Capsule PO (08:22)
[2022-01-30] MEDS: buPROPion (SR) 150 MG Tablet.SA PO ×2 (08:23→21:26)
[2022-01-30] MEDS: Cyanocobalamin 500 MCG Tablet 1000 MCG PO (08:23)
[2022-01-30] MEDS: Cholecalciferol (Vit D3) 125 MCG CAPSULE (5,000 UNITS) PO (08:24)
--- NOTE | 2022-01-30 10:20 | CASEMGMT ---
Social Work Note SW updated that recommendation is SNF as pt is two assist. SW in to speak with pt. SW introduced self and role at [facility]. Pt confirms she will need a SNF. Patient was provided a list of SNF providers including quality and resource use data and consistent with the patient?s preferred geographic region, medical needs, and insurance network. Pt states that he daughter Abi will be in to [facility] today and she will discuss with her SNF options. SW informed pt that this worker will check back in with pt later today regarding SNF options and encouraged pt to have three options for SNF. Pt states understanding. Plan: SNF pending acceptance and pre-cert Danika Bills INSTRUMENT CHECKER, STRAPPER
--- NOTE | 2022-01-30 11:44 | PN.HOSP_ITS ---
Documented by User: Anthony BEAN 01/30/22 11:54 Subjective Subjective Patient is a 76-year-old female resting in a chair, alert and orient x3. Patient does report some postoperative pain in her foot, but denies any chest pain, shortness of breath or palpitations. Patient denies any fevers, chills, difficulty urinating or N/V/D. Objective Data Objective Data Vital Signs: Vital Signs Temp Pulse Resp BP Pulse Ox 99.3 F H 119 H 20 H 123/53 H 94 01/30/22 07:25 01/30/22 07:53 01/30/22 07:25 01/30/22 07:25 01/30/22 06:48 Oxygen Flow Rate (L/min) [4] 4 Oxygen Flow Rate (L/min) [3] 4 Oxygen Flow Rate (L/min) [1 ( 2 Initial Baseline)] Oxygen Flow Rate (L/min) 3 Oxygen Delivery Method [4] Nasal Cannula Oxygen Delivery Method [3] Nasal Cannula Oxygen Delivery Method [2] Nasal Cannula Oxygen Delivery Method [1 ( Nasal Cannula Initial Baseline)] Oxygen Delivery Method Nasal Cannula Weight: 206 lb 5.643 oz Body Mass Index (BMI) 32.3 Intake & Output: Intake and Output for Last 24 Hours 01/28/22 01/29/22 01/30/22 23:59 23:59 23:59 Intake Total 765 / 765 355 / 355 Output Total 0 / 2049 1500 / 1500 500 / 500 Balance -1650 / -1750 -735 / -735 -145 / -145 Lab / Micro Data Result Diagrams: 01/28/22 04:56 01/29/22 08:17 Labs: Laboratory Results - last 24 hr 01/29/22 11:52: POC Glucose 228 H 01/29/22 18:09: POC Glucose 297 H 01/29/22 20:57: POC Glucose 321 H 01/30/22 06:38: POC Glucose 205 H Micro: Microbiology 01/26/22 16:59 Nasal Secretion SARS-CoV-2 Antigen (Rapid) - Final Radiography Diagnostic Testing: Radiology Impression Ankle X-Ray 01/29/22 14:31 IMPRESSION: Fluoroscopic assistance images were obtained. Dictation for documentation purposes only. Electronically Signed: Juan M Prather MD at 17:13 EDT , Ankle X-Ray 01/29/22 17:25 IMPRESSION: Successful ORIF. Electronically Signed: Juan M Prather MD at 17:57 EDT , Physical Exam Const alert, oriented x3 and no apparent distress HEENT head/scalp atraumatic and moist oral mucous membranes Head and Scalp: normocephalic Eyes PERRL and conjunctivae normal Neck no lymphadenopathy, supple and no JVD Resp normal respiratory effort, no retractions and no use of accessory muscles Cardio regular rate, regular rhythm and no JVD GI normal to inspection, nondistended, normoactive bowel sounds Extremity normal to inspection, full ROM and no clubbing, cyanosis or edema Skin no rashes or lesions noted Neuro CN's II-XII intact bilaterally Psych affect normal Assessment & Plan Assessment/Plan (1) Hyperkalemia: (2) Trimalleolar fracture of ankle, closed: QUALIFIERS: Encounter type: initial encounter Laterality: left Qualified Code(s): S82.852A - Displaced trimalleolar fracture of left lower leg, initial encounter for closed fracture PLAN: Patient is a 76-year-old female who presents to the hospital medicine service on consult from podiatry who is the primary service for left trimalleolar ankle fracture. 1) Tachycardia Consistent tachycardia since about 6 AM this morning, believe it is related to postoperative foot pain as patient is reporting as much. Patient denies chest pain, shortness of breath, palpitations, hemoptysis, sputum production, fever, chills, difficulty urinating or N/V/D. Appropriate pain medications have been ordered by podiatry, will administer as scheduled and continue to monitor. 2) HTN Stable. Continue losartan, as needed hydralazine ordered. 3) DM2 Home pioglitazone and glimepiride continued, Accu-Cheks with sliding-scale insulin ordered. 4) CKD stage IIIb Creatinine is 1.7, which is at baseline. 5) trimalleolar fracture of the left ankle Left leg splinted by podiatry in the ED. patient is to undergo surgery today. Perioperative care per podiatry. 6) COPD Not in acute exacerbation, currently satting 95% on 3 L via nasal cannula, which is patient baseline. Continue home montelukast and budesonide, bronchodilators ordered. Continue supplemental oxygen to maintain saturations above 90%. DVT prophylaxis - Lovenox Patient seen by Anthony Hyde PA-C, under the supervision of Dr. Kirkland. Time spent on patient care: 7 minutes.. Documented by User: Dr. Bharati Kirkland MD 01/30/22 13:12 Objective Data Lab / Micro Data Result Diagrams: 01/28/22 04:56 01/29/22 08:17 Charges/Coding Addendum Addendum: Patient seen by Anthony Hyde PA-C under my supervision Patient seen and examined. Today is POD 1 for ORIF of left ankle fracture. She complained of some pain. Review of systems is otherwise negative. O/E: Const alert, oriented x3 and no apparent distress General Appearance: cooperative HEENT normocephalic, head/scalp atraumatic, hearing grossly normal bilaterally and moist oral mucous membranes Eyes PERRL, EOMs intact bilaterally and conjunctivae normal Neck no lymphadenopathy, supple and no JVD Resp normal respiratory effort and clear to auscultation bilaterally Cardio regular rate, regular rhythm, S1 normal heart sound, S2 normal heart sound and no murmurs GI normal to inspection, nondistended, normoactive bowel sounds and soft to palpation Extremity normal to inspection, left ankle wrapped in bandage Skin no rashes or lesions noted Neuro oriented x3, CN's II-XII intact bilaterally and moves all extremities Sensorium / Orientation: awake and alert Psych affect normal Assessment and plan #Left ankle fracture * s/p ORIF of left ankle fracture. Today is POD 1 * on tylenol, oxycodone and dilaudid prn for pain * PT/OT on board. * Fall precautions * #Hyperkalemia: resolved #Hypertension; losartan on hold due to hyperkalemia DVT prophylaxis; lovenox. Disposition: will need placement as she is a 2 person assist, and so will need placement. Total time I spent on the care of the patient today is 22 mins, with Anthony Hyde PA-C spending 7 mins on the care of the patient, making a total of 29 mins Visit Charges Inpatient E&M: 52516 Subs Hosp L2
--- NOTE | 2022-01-30 11:53 | PN_ITS ---
Subjective Subjective Patient seen today for follow up on s/p left ankle ORIF. She is doing well, pain is controlled. No complaints, no complaints of fever, chills, nausea or vomiting. She is sitting up in shair. Objective Data Objective Data Vital Signs: Vital Signs Temp Pulse Resp BP Pulse Ox 99.3 F H 119 H 20 H 123/53 H 93 01/30/22 07:25 01/30/22 07:53 01/30/22 07:25 01/30/22 07:25 01/30/22 07:25 Oxygen Flow Rate (L/min) [4] 4 Oxygen Flow Rate (L/min) [3] 4 Oxygen Flow Rate (L/min) [1 ( 2 Initial Baseline)] Oxygen Flow Rate (L/min) 3 Oxygen Delivery Method [4] Nasal Cannula Oxygen Delivery Method [3] Nasal Cannula Oxygen Delivery Method [2] Nasal Cannula Oxygen Delivery Method [1 ( Nasal Cannula Initial Baseline)] Oxygen Delivery Method Nasal Cannula Weight: 93.6 kg Body Mass Index (BMI) 32.3 Intake & Output: Intake and Output for Last 24 Hours 01/28/22 01/29/22 01/30/22 23:59 23:59 23:59 Intake Total 765 / 765 355 / 355 Output Total 1650 / 2050 1500 / 1500 500 / 500 Balance -1650 / -1750 -735 / -735 -145 / -145 Lab / Micro Data Result Diagrams: 01/28/22 04:56 01/29/22 08:17 Labs: Laboratory Results - last 24 hr 01/29/22 11:52: POC Glucose 228 H 01/29/22 18:09: POC Glucose 297 H 01/29/22 20:57: POC Glucose 321 H 01/30/22 06:38: POC Glucose 205 H Micro: Microbiology 01/26/22 16:59 Nasal Secretion SARS-CoV-2 Antigen (Rapid) - Final Radiography Diagnostic Testing: Radiology Impression Ankle X-Ray 01/29/22 14:31 IMPRESSION: Fluoroscopic assistance images were obtained. Dictation for documentation purposes only. Electronically Signed: Juan M Prather MD at 17:13 EDT , Ankle X-Ray 01/29/22 17:25 IMPRESSION: Successful ORIF. Electronically Signed: Juan M Prather MD at 17:57 EDT , Physical Exam Const alert, oriented x3 and no apparent distress Extremity Extremity Narrative: Splint clean, dry and intact to the left foot/ankle/leg with no strikethrough, CFT <2 seconds to all toes with intact sensation left foot, no calf pain bilateral. Assessment & Plan Assessment/Plan (1) Closed left trimalleolar fracture: (2) Ankle pain, left: (3) Diabetes mellitus: QUALIFIERS: Diabetes mellitus type: type 2 Diabetes mellitus history faculty member insulin use: without senior care use Diabetes mellitus complication status: with kidney complications Diabetes mellitus complication detail: with chronic kidney disease Chronic kidney disease stage: stage 3 (moderate) Chronic kidney disease stage 3 subtype: stage 3b (GFR 30-44) Qualified Code(s): E11.22 - Type 2 diabetes mellitus with diabetic chronic kidney disease; N18.32 - Chronic kidney disease, stage 3b PLAN: s/p left ankle ORIF on 01/29/2022 - doing well, no evidence of complication. Reviewed post op xrays. No weightbearing left foot. Keep left foot elevated. Pain management - Acetaminophen, Oxyir, Dilaudid. SCD right lower extremity. Lovenox 30mg subcutaneous daily. Medicine team on consult - appreciate assistance. Ok to discharge to nursing facility when approved by insurance.
[2022-01-30 11:55] LABS: Bedside Glucose 425 mg/dL (74-106)
--- NOTE | 2022-01-30 12:07 | CASEMGMT ---
MIRZA HODGES in to pt room as pt nurse asked RN TRACIE to stop in. Pt in chair with dtr at bedside. Pt states she does not have anyone to take care of her at home. States she would like to go to [facility] TCU. Notified Nia EDWARDS. Pt dtr in agreement.
--- NOTE | 2022-01-30 12:17 | CASEMGMT ---
Addendum entered by Danika Bills 01/30/22 14:50: SW received message from [facility] with TCU stating they can accept pt and will submit for pre-cert. SW in to speak with pt. SW updated pt that TCU can accept pt pending pre-cert. Pt states understanding. Plan: TCU pending pre-cert. Original Note: Social Work Note SW updated that pt is requesting TCU. SW placed a call to [facility] with TCU and left message regarding referral. Plan: TCU pending acceptance and pre-cert Danika Bills STRIP CUTTER, ELECTRIC SCREW DRIVER OPERATOR
--- NOTE | 2022-01-30 16:31 | MDS.RN ---
This RN at the bedside with nursing clinical director. Pts pulse ox decreased to 52%, pts oxygen not in place at this time, pt unsure how it was removed. 4L NC Oxygen placed back on the patient, Pt A&ox3, respirations even and unlabored. Pts pulse ox improving to 94% on 4L NC oxygen. Pts HR elevated 121 bpm, Primary RN updated about pts pulse ox and heart rate.
[2022-01-30 17:10] LABS: Bedside Glucose 263 mg/dL (74-106)
[2022-01-30] MEDS: Bisoprolol Fumarate 5 MG Tablet PO (17:24)
--- NOTE | 2022-01-30 17:47 | NURSING ---
1700-pt placed back to bed via therapy and cont pulse ox on d/t pt taking o2 off accidentally and hypoxia. pt denies any needs of pain meds at this time. lt leg up on pillows.
[2022-01-30] MEDS: Atorvastatin Calcium 10 MG Tablet PO (21:25)
[2022-01-30] MEDS: traZODone 50 MG Tablet 150 MG PO (21:25)
[2022-01-30 21:36] LABS: Bedside Glucose 296 mg/dL (74-106)
[2022-01-31] VITALS (10 sets, daily range): BP systolic 115–143; BP diastolic 56–62; PULSE 88–102; RESP 16–18; TEMP 36.3–36.9; O2SAT 92–97
[2022-01-31] MEDS: Insulin Lispro 100 UNIT/ML INSULN.PEN SC ×2 (06:45→11:07)
[2022-01-31] MEDS: Enoxaparin 30 MG/0.3 ML Syringe SC (06:46)
[2022-01-31] MEDS: Acetaminophen 325 MG Tablet 650 MG PO (06:48)
[2022-01-31 06:56] LABS: Bedside Glucose 157 mg/dL (74-106)
[2022-01-31] MEDS: Ipratropium/Albuterol Sulfate 3 ML AMPUL.NEB INHALATION ×2 (07:21→13:33)
[2022-01-31] MEDS: Budesonide Respules 0.5 MG/2 ML AMPUL.NEB. INHALATION (07:21)
[2022-01-31 08:09] LABS: Anion Gap 5 (5-15); BUN 37 mg/dL (7-18); BUN/Creat Ratio 21.3 RATIO (10-20); Calcium,Total 8.3 mg/dL (8.5-10.1); Chloride 104 mmol/L (98-107); Creatinine, Serum 1.74 mg/dL (0.55-1.02); EST Glomerular Filtration Rate 30 mL/min (>60); Est Glom Filt Rate - Afr Amer 37 mL/min (>60); Estimated Creatinine Clearance 27.17 ml/min; Glucose 148 mg/dL (74-106); Potassium 4.4 mmol/L (3.5-5.1); Sodium Level 136 mmol/L (136-145)
[2022-01-31] MEDS: Pantoprazole Sodium 40 MG Tablet PO (09:49)
[2022-01-31] MEDS: Losartan Potassium 25 MG Tablet PO (09:50)
[2022-01-31] MEDS: Montelukast 10 MG Tablet PO (09:50)
[2022-01-31] MEDS: Cyanocobalamin 500 MCG Tablet 1000 MCG PO (09:50)
[2022-01-31] MEDS: Loratadine 10 MG Tablet PO (09:50)
[2022-01-31] MEDS: Venlafaxine XR 150 MG Capsule PO (09:50)
[2022-01-31] MEDS: Ferrous Sulfate 325 MG Tablet PO (09:50)
[2022-01-31] MEDS: Cholecalciferol (Vit D3) 125 MCG CAPSULE (5,000 UNITS) PO (09:50)
[2022-01-31] MEDS: buPROPion (SR) 150 MG Tablet.SA PO (09:50)
[2022-01-31] MEDS: Docusate Sodium 100 MG Capsule PO (09:50)
[2022-01-31] MEDS: Aspirin 81 MG TAB.CHEW PO (09:50)
[2022-01-31 11:15] LABS: Bedside Glucose 309 mg/dL (74-106)
--- NOTE | 2022-01-31 11:16 | TREXTCAR_ITS ---
Diet 01/29/22 16:59 Diet: Carbohydrate Controlled Is pt able to select menu?: Yes Routine Orders/Code Status Enema Type: Fleetz Enema Frequency: Daily PRN Suppository Type: Dulcolax 10mg Suppository Frequency: Daily PRN O2 Liters per Minute: 3 O2 Frequency: Continuous Keep PO Greater than or Equal to (%): 90 Routine Lab Work: - (weekly CBC, BMP) Code Status: Full Code Wound(s) LLE: Wound Type: Surgical Incision right AC: Wound Type: Puncture Suggestions for Active Care Change Position every (hours): 2 Times a day to sit in chair: 3 Therapies Weight Bearing: Non weight bearing (LLE) Extremity Affected:: Left Lower Physical Therapy: Eval and Treat Occupational Therapy: Eval and Treat Problem/Diagnosis (1) Closed left trimalleolar fracture: Status: Acute (2) Ankle pain, left: Status: Acute (3) Diabetes mellitus: Status: Chronic (4) Hyperkalemia: Status: Acute Allergies/Procedures Done in Hospital Allergies No Known Allergies Allergy (Verified 04/19/21 17:11) Procedures: - ( s/p left ankle ORIF on 01/29/2022 ) Type of Care/Length of Stay Estimated LOS: Convalescent Care Less Than 30 days Type of Care Needed: Skilled Rehab Potential: Good Prognosis: Good Additional Orders/Day of Discharge H&P will serve as current which was dated: 01/26/22 Day of Discharge: 01/31/22 Discharge Plan Admission Admit Date/Time: 01/26/22 17:59 Primary Reason for Your Visit: Closed left trimalleolar fracture Attending Provider: Bharati Kirkland Primary Care Provider: Grady Mckeon Consulting Providers: Kavin Mcclain Discharge Orders/Prescriptions Prescriptions: New docusate sodium 100 mg Capsule 100 mg PO BID Qty: 0 RF: 0 cholecalciferol (vitamin D3) 125 mcg (5,000 unit) Capsule 125 mcg PO DAILY Qty: 0 RF: 0 enoxaparin 30 mg/0.3 mL Syringe 30 mg subcut DAILY@0600 Qty: 0 RF: 0 Continued bupropion HCl 150 MG tablet sustained-release 12 hr 150 mg PO BID RF: 0 lovastatin 40 MG tablet 40 mg PO QHS RF: 0 venlafaxine 150 MG capsule,extended release 24hr 150 mg PO DAILY RF: 0 cyanocobalamin (vitamin B-12) [Vitamin B-12] 1,000 MCG tablet 1,000 mg PO DAILY RF: 0 glimepiride 2 MG tablet 2 mg PO BID RF: 0 trazodone 150 MG tablet 150 mg PO QHS RF: 0 aspirin 81 MG tablet,chewable 81 mg PO DAILY@0800 RF: 0 montelukast 10 MG tablet 10 mg PO DAILY RF: 0 albuterol sulfate [Ventolin HFA] 1 INHALER inhaler 1 - 2 puff inhalation Q4H PRN PRN (Reason: Sob &/Or Wheezing) Qty: 1 RF: 0 Hydrocodon-Acetaminophen 5-325 tablet 1 tab PO 4X/DAY PRN (Reason: back pain) RF: 0 omeprazole 40 mg capsule,delayed release(DR/EC) 40 mg PO DAILY RF: 0 bisoprolol fumarate 5 mg tablet 5 mg PO DINNER RF: 0 ferrous sulfate [FeroSul] 325 mg (65 mg iron) tablet 325 mg PO DAILY RF: 0 Trelegy Ellipta 100-62.5-25 mcg blister with device 1 inh INHALATION DAILY RF: 0 losartan 25 mg tablet 25 mg PO DAILY RF: 0 loratadine 10 mg Tablet 10 mg PO DAILY RF: 0 pioglitazone 30 MG tablet 30 mg PO DAILY@0800 RF: 0 Referrals / Follow Up: Todd Crump DPM [STAFF PHYSICIAN] - Within 2 Weeks Grady Mckeon DO [Primary Care Provider] - In 1 Week Disposition Disposition (needs filled in before D/C Order can be placed): [facility]-Way [facility]
--- NOTE | 2022-01-31 11:27 | PN.HOSP_ITS ---
Documented by User: Alka Chan NP, CARDIOVASCULAR DISEASE SPECIALIST-C 01/31/22 11:42 Subjective Subjective Patient seen and examined. Denies significant pain this morning. Denies other symptoms or complaints. Plan for transitional care unit pending insurance approval. Objective Data Objective Data Vital Signs: Vital Signs Temp Pulse Resp BP Pulse Ox 97.3 F L 88 18 115/62 92 01/31/22 09:40 01/31/22 09:40 01/31/22 09:40 01/31/22 09:40 01/31/22 09:40 Oxygen Flow Rate (L/min) [4] 4 Oxygen Flow Rate (L/min) [3] 4 Oxygen Flow Rate (L/min) [1 ( 2 Initial Baseline)] Oxygen Flow Rate (L/min) 3 Oxygen Delivery Method [4] Nasal Cannula Oxygen Delivery Method [3] Nasal Cannula Oxygen Delivery Method [2] Nasal Cannula Oxygen Delivery Method [1 ( Nasal Cannula Initial Baseline)] Oxygen Delivery Method Nasal Cannula Weight: 206 lb 5.643 oz Body Mass Index (BMI) 32.3 Intake & Output: Intake and Output for Last 24 Hours 01/29/22 01/30/22 01/31/22 23:59 23:59 23:59 Intake Total 765 / 765 710 / 710 100 / 100 Output Total 1500 / 1500 2350 / 2350 400 / 400 Balance -735 / -735 -1640 / -1640 -300 / -300 Lab / Micro Data Result Diagrams: 01/28/22 04:56 01/31/22 07:45 Labs: Laboratory Results - last 24 hr 01/30/22 11:47: POC Glucose 425 H 01/30/22 17:06: POC Glucose 263 H 01/30/22 21:23: POC Glucose 296 H 01/31/22 06:44: POC Glucose 157 H 01/31/22 07:45: Sodium 136, Potassium 4.4, Chloride 104, Carbon Dioxide 27.0, Anion Gap 5, BUN 37 H, Creatinine 1.74 H, Estim Creat Clear Calc 27.17, Est GFR (MDRD) Af Amer 37 L, Est GFR (MDRD) Non-Af 30 L, BUN/Creatinine Ratio 21.3 H, Glucose 148 H, Calcium 8.3 L 01/31/22 11:05: POC Glucose 309 H Micro: Microbiology 04/16/22 16:59 Nasal Secretion SARS-CoV-2 Antigen (Rapid) - Final Physical Exam Const alert, oriented x3 and no apparent distress Orientation / Consciousness: awake, oriented to person, oriented to place and oriented to time HEENT normocephalic and moist oral mucous membranes Eyes PERRL, EOMs intact bilaterally and conjunctivae normal Neck no lymphadenopathy Resp clear to auscultation bilaterally Auscultation: diminished lung sounds Cardio regular rate, regular rhythm and no murmurs Peripheral Pulses: pulses 2+ throughout GI normal to inspection, nondistended, normoactive bowel sounds, non-tender and non-distended Extremity normal to inspection Skin no rashes or lesions noted Lesions: no lesions Rashes: no rashes Trauma: no lacerations or abrasions Neuro CN's II-XII intact bilaterally, no focal motor deficits, no sensory deficits noted and deep tendon reflexes 2+ bilaterally Neuro Narrative: Left lower extremity dressing intact Psych mental status grossly normal and affect normal Assessment & Plan Assessment/Plan (1) Trimalleolar fracture of ankle, closed: QUALIFIERS: Encounter type: initial encounter Laterality: left Qualified Code(s): S82.852A - Displaced trimalleolar fracture of left lower leg, initial encounter for closed fracture PLAN: 1. Acute traumatic closed trimalleolar fracture-secondary to mechanical injury. Management per podiatry. TCU for rehab. PT/OT. Pain currently well controlled. Continue as needed Kathryn. 2. Postoperative tachycardia-likely secondary to pain. Resolved. 3. Chronic kidney disease stage IIIb-at baseline. 4. Type 2 diabetes mellitus- continue home oral regimen. Accu-Cheks with sliding scale insulin. 5. Hypertension-stable, continue losartan. 6. Chronic COPD with chronic hypoxic respiratory failure-wears supplemental oxygen at baseline. Continue home inhaler regimen/supplemental oxygen to maintain O2 above 90% 7. Anxiety/depression-on bupropion, venlafaxine. 8. Hyperlipidemia- continue statin. 9. GERD- continue PPI. DVT prophylaxis-Lovenox subcu This patient was seen by LILI Landaverde under the supervision of Dr. Kirkland. Discharge planning: Approved for transitional care unit. Stable for discharge from medical standpoint. Time spent examining patient, reviewing data and subsequent management of care: 12 minutes Documented by User: Dr. Bharati Kirkland MD 01/31/22 12:02 Objective Data Lab / Micro Data Result Diagrams: 01/28/22 04:56 01/31/22 07:45 Charges/Coding Addendum Addendum: Patient seen by Alka BAC under my supervision Patient seen and examined. She had no active complaints. Pain is well controlled. Review of systems is otherwise negative. O/E: Const alert, oriented x3 and no apparent distress General Appearance: cooperative HEENT normocephalic, head/scalp atraumatic, hearing grossly normal bilaterally and moist oral mucous membranes Eyes PERRL, EOMs intact bilaterally and conjunctivae normal Neck no lymphadenopathy, supple and no JVD Resp normal respiratory effort and clear to auscultation bilaterally Cardio regular rate, regular rhythm, S1 normal heart sound, S2 normal heart sound and no murmurs GI normal to inspection, nondistended, normoactive bowel sounds and soft to palpation Extremity normal to inspection, left ankle wrapped in bandage Skin no rashes or lesions noted Neuro oriented x3, CN's II-XII intact bilaterally and moves all extremities Sensorium / Orientation: awake and alert Psych affect normal Assessment and plan #Left ankle fracture * S/p open reduction and internal fixation. Today's postop day 2. * On Tylenol, oxycodone and Dilaudid as needed for pain * PT OT on board. Fall precautions. * #Hyperkalemia: Resolved #Hypertension: We will resume losartan DVT prophylaxis: Lovenox Disposition: Awaiting placement. Rest as per LILI Landaverde's notes which I reviewed and endorsed. Total time I spent on clinical care of patient: 18 mins with Alka Chan spending 12 mins, making a total of 30 mins. Visit Charges Inpatient E&M: 13350 Subs Hosp L2
--- NOTE | 2022-01-31 12:10 | CASEMGMT ---
Social Work Received call from Elisa in TCU and precert has been obtained from insurance and pt can admit today. SW updated physicians and pt is ready for discharge. Orders faxed to TCU. Pt notified and agreeable to discharge to TCU. Pt stating she will notify family of d/c plan today and does not want SW to notify them. Nursing updated that pt needs negative covid test and can then be discharged to TCU. DARION Archer
--- NOTE | 2022-01-31 13:25 | PCM.DC.SUM ---
Providers Date of Admission: 01/26/22 Primary Care Physician: Dr. Grady Mckeon DO Consultations 01/26/22 18:03 Consult: Hospitalist Routine Consulting Provider: Kavin Mcclain Reason for Consult: diabetes and other medical problems EMERGENT Consult: No MD Notified: Yes Date Notified: 01/26/22 Time Notified: 19:00 Method of Notification: Text Reason For Visit: ANKLE FRACTURE Diagnosis Discharge Diagnosis (1) Trimalleolar fracture of ankle, closed: Status: Acute Code(s): S82.853A - Displaced trimalleolar fracture of unspecified lower leg, initial encounter for closed fracture Qualifiers: Encounter type: initial encounter Laterality: left Qualified Code(s): S82.852A - Displaced trimalleolar fracture of left lower leg, initial encounter for closed fracture Medications at Discharge Home Medications aspirin 81 mg PO DAILY@0800 12/27/16 bupropion HCl 150 mg PO BID 12/27/16 cyanocobalamin (vitamin B-12) [Vitamin B-12] 1,000 mg PO DAILY 12/27/16 glimepiride 2 mg PO BID 12/27/16 lovastatin 40 mg PO QHS 12/27/16 montelukast 10 mg PO DAILY 12/27/16 trazodone 150 mg PO QHS 12/27/16 venlafaxine 150 mg PO DAILY 12/27/16 albuterol sulfate [Ventolin HFA] 1 - 2 puff INHALATION Q4H PRN PRN #1 inhaler 12/30/16 Hydrocodon-Acetaminophen 5-325 1 tab PO 4X/DAY PRN 01/16/20 Trelegy Ellipta 1 inh INHALATION DAILY 04/19/21 bisoprolol fumarate 5 mg PO DINNER 04/19/21 ferrous sulfate [FeroSul] 325 mg PO DAILY 04/19/21 omeprazole 40 mg PO DAILY 04/19/21 loratadine 10 mg PO DAILY 01/26/22 losartan 25 mg PO DAILY 01/26/22 pioglitazone 30 mg PO DAILY@0800 01/26/22 cholecalciferol (vitamin D3) 125 mcg PO DAILY #0 cap 01/31/22 docusate sodium 100 mg PO BID #0 cap 01/31/22 enoxaparin 30 mg SUBCUT DAILY@0600 #0 ml 01/31/22 Hospital Course Operations - (Left ankle ORIF) Summary of Care Provided Hospital Course: Patient was admitted for painful left ankle triamlleolar fracture on 01/26/22, she underwent ORIF on 01/29/2022 without complication. She had unremarkable hospital course. She will be discharged to TCU for rehab. Physical Exam Const alert, oriented x3 and no apparent distress Extremity Extremity Narrative: Splint left foot/ankle/leg clean, dry and intact with no evidence of complication. Weight / BMI Weight Weight: 93.6 kg Body Mass Index (BMI) 32.3 ABG / Lab / Microbiology Data Result Diagrams: 01/28/22 04:56 01/31/22 07:45 Laboratory: Laboratory Results - last 24 hr 01/30/22 17:06: POC Glucose 263 H 01/30/22 21:23: POC Glucose 296 H 01/31/22 06:44: POC Glucose 157 H 01/31/22 07:45: Sodium 136, Potassium 4.4, Chloride 104, Carbon Dioxide 27.0, Anion Gap 5, BUN 37 H, Creatinine 1.74 H, Estim Creat Clear Calc 27.17, Est GFR (MDRD) Af Amer 37 L, Est GFR (MDRD) Non-Af 30 L, BUN/Creatinine Ratio 21.3 H, Glucose 148 H, Calcium 8.3 L 01/31/22 11:05: POC Glucose 309 H Microbiology: Microbiology 01/31/22 12:00 Nasal Secretion SARS-CoV-2 Antigen (Rapid) - Final 01/26/22 16:59 Nasal Secretion SARS-CoV-2 Antigen (Rapid) - Final D/C Instructions Weight Bearing Status: No weight bearing (No weightbearing left foot) Keep extremity elevated above heart level: Left Leg (Keep left foot elevate for at least 50 minutes of every hour) Call your doctor if your incision/area has: Continuous Slow Oozing, Sudden Increased Bleeding, Increased Pain/ Swelling and Foul Smelling Discharge Call your doctor if you observe: Fever of 101 or Higher, Shortness of breath, Chest pain, Increased palpitations (irregular heartbeat) and Uncontrolled pain Change Dressing in: do not change dressing Remove Dressing in: leave in place till F/U Cleanse incision/area with: Do not get Incision Wet and Keep Dressing Clean & Dry Meaningful Use Info Meaningful Use Diagnoses (Choose all that apply): None applicable Discharge Plan Admission Admit Date/Time: 01/26/22 17:59 Primary Reason for Your Visit: Closed left trimalleolar fracture Attending Provider: Bharati Kirkland Primary Care Provider: Grady Mckeon Consulting Providers: Kavin Mcclain Discharge Orders/Prescriptions Prescriptions: New docusate sodium 100 mg Capsule 100 mg PO BID Qty: 0 RF: 0 cholecalciferol (vitamin D3) 125 mcg (5,000 unit) Capsule 125 mcg PO DAILY Qty: 0 RF: 0 enoxaparin 30 mg/0.3 mL Syringe 30 mg subcut DAILY@0600 Qty: 0 RF: 0 Continued bupropion HCl 150 MG tablet sustained-release 12 hr 150 mg PO BID RF: 0 lovastatin 40 MG tablet 40 mg PO QHS RF: 0 venlafaxine 150 MG capsule,extended release 24hr 150 mg PO DAILY RF: 0 cyanocobalamin (vitamin B-12) [Vitamin B-12] 1,000 MCG tablet 1,000 mg PO DAILY RF: 0 glimepiride 2 MG tablet 2 mg PO BID RF: 0 trazodone 150 MG tablet 150 mg PO QHS RF: 0 aspirin 81 MG tablet,chewable 81 mg PO DAILY@0800 RF: 0 montelukast 10 MG tablet 10 mg PO DAILY RF: 0 albuterol sulfate [Ventolin HFA] 1 INHALER inhaler 1 - 2 puff inhalation Q4H PRN PRN (Reason: Sob &/Or Wheezing) Qty: 1 RF: 0 Hydrocodon-Acetaminophen 5-325 tablet 1 tab PO 4X/DAY PRN (Reason: back pain) RF: 0 omeprazole 40 mg capsule,delayed release(DR/EC) 40 mg PO DAILY RF: 0 bisoprolol fumarate 5 mg tablet 5 mg PO DINNER RF: 0 ferrous sulfate [FeroSul] 325 mg (65 mg iron) tablet 325 mg PO DAILY RF: 0 Trelegy Ellipta 100-62.5-25 mcg blister with device 1 inh INHALATION DAILY RF: 0 losartan 25 mg tablet 25 mg PO DAILY RF: 0 loratadine 10 mg Tablet 10 mg PO DAILY RF: 0 pioglitazone 30 MG tablet 30 mg PO DAILY@0800 RF: 0 Referrals / Follow Up: Todd Crump DPM [STAFF PHYSICIAN] - Within 2 Weeks Grady Mckeon DO [Primary Care Provider] - In 1 Week Disposition Disposition (needs filled in before D/C Order can be placed[facility]
--- NOTE | 2022-01-31 14:29 | NURSING ---
Report called to MIRZA Hook in TCU. Patient okay to be transferred to TCU room 10
== END 2022-01-31 14:55 | disposition skilled nursing facility (03) | DRG 493 ==
LOC: ED 18:01 → MS3 18:46
PROVIDERS: Anesthesiology; Hospitalist; Internal Medicine; Admitting Provider Podiatrist; Emergency Provider Student in an Organized Health Care Education/Training Program; PCP Preventive Medicine Occupational Medicine; Visit Provider Student in an Organized Health Care Education/Training Program
PROC: 0QSH0ZZ Reposition Left Tibia, Open Approach (ICD-10-PCS; principal; 2022-01-29 13:40)
DX: S82.852A Displaced trimalleolar fracture of left lower leg, initial encounter for closed fracture (principal); J96.11 Chronic respiratory failure with hypoxia; E11.21 Type 2 diabetes mellitus with diabetic nephropathy; E11.65 Type 2 diabetes mellitus with hyperglycemia; E11.22 Type 2 diabetes mellitus with diabetic chronic kidney disease; J43.9 Emphysema, unspecified; E11.29 Type 2 diabetes mellitus with other diabetic kidney complication; N18.32 Chronic kidney disease, stage 3b; E78.5 Hyperlipidemia, unspecified; E87.5 Hyperkalemia; I12.9 Hypertensive chronic kidney disease with stage 1 through stage 4 chronic kidney disease, or unspecified chronic kidney disease; F41.9 Anxiety disorder, unspecified; K21.9 Gastro-esophageal reflux disease without esophagitis; W17.2XXA Fall into hole, initial encounter; F32.A Depression, unspecified; E66.9 Obesity, unspecified; R00.0 Tachycardia, unspecified; Z68.32 Body mass index [BMI] 32.0-32.9, adult; Z99.81 Dependence on supplemental oxygen; Z79.82 Long term (current) use of aspirin; Z79.84 Long term (current) use of oral hypoglycemic drugs; Z79.899 Other long term (current) drug therapy; Z87.891 Personal history of nicotine dependence; Z86.73 Personal history of transient ischemic attack (TIA), and cerebral infarction without residual deficits
CPT/HCPCS: 36415; 71045; 73600; 73610; 73700; 76000; 80048; 80053; 82306; 82962; 83036; 85025; 87426; 87811; 93005; 94640; 97110; 97162; 97166; 97530; 97535; 99251; 99285; C1713; J7030; A4216; G0463; J2405; J3490

== ENCOUNTER 2022-01-31 15:07 | Inpatient (IN) | payer MEDICARE, SELFPAY ==
[2022-01-31 15:14] VITALS: BP 141/55; PULSE 103; RESP 18; TEMP 36.2; O2SAT 96; BMI 32.8
[2022-01-31 15:16] VITALS: PULSE 103; O2SAT 96
[2022-01-31] MEDS: Fluticasone/Salmeterol 232-14 Inhaler 1 PUFF INHALATION (17:51)
[2022-01-31] MEDS: Glimepiride 2 MG Tablet PO (17:52)
[2022-01-31] MEDS: buPROPion (SR) 150 MG Tablet.SA PO (17:52)
[2022-01-31] MEDS: Docusate Sodium 100 MG Capsule PO (17:52)
[2022-01-31] MEDS: Bisoprolol Fumarate 5 MG Tablet PO (17:53)
--- NOTE | 2022-01-31 19:39 | HP.PCM_ITS ---
HPI - General General Date of Admission: 01/31/22 HPI Narrative 01/26/2022 WING LIN, is a 76 Female who presents to [facility] Emergency Department with fall. 01/26/2022 EKG normal sinus rhythm, normal EKG. Walking in yard, stepped in hole she dug to plant gonzalez, hurt left ankle, felt a crack. Unable to bear weight. Gilbert given, X-ray showed left ankle trimalleolar fracture. Dr. Crump consulted, CT left ankle done. 01/26/2022 Admit to Hospital. Prepare for surgery. Tylenol, oxycodone, Dilaudid for pain. Lovenox for DVT prophylaxis. IV fluids for hyperkalemia. 01/27/2022 Mild left ankle pain. Creatinine 1.65, baseline. 01/28/2022 K 5.7, hold Losartan, given Kayexalate. 01/29/2022 Comfortable. K 5.0 today. 01/29/2022 Dr. Crump performed open reduction internal fixation left ankle fracture. 01/30/2022 No pain. PT/OT for TCU. 01/31/2022 Admit to TCU with debility, here for rehabilitation, strengthening, prior to discharge home with . [facility] Medical History (Updated 01/31/22 @ 19:[address] Manoj Villatoro MD) Anxiety CKD (chronic kidney disease) COPD (chronic obstructive pulmonary disease) Depression Diabetes Emphysema of lung Former smoker Hypertension Stroke/cerebrovascular accident Home Medications aspirin 81 mg PO DAILY@0800 12/27/16 [History Last Taken 01/26/22] bupropion HCl 150 mg PO BID 12/27/16 [History Last Taken 01/26/22] cyanocobalamin (vitamin B-12) [Vitamin B-12] 1,000 mg PO DAILY 12/27/16 [History Last Taken 01/26/22] glimepiride 2 mg PO BID 12/27/16 [History Last Taken 01/26/22] lovastatin 40 mg PO QHS 12/27/16 [History Last Taken 01/25/22] montelukast 10 mg PO DAILY 12/27/16 [History Last Taken 01/26/22] trazodone 150 mg PO QHS 12/27/16 [History Last Taken 01/25/22] venlafaxine 150 mg PO DAILY 12/27/16 [History Last Taken 01/26/22] albuterol sulfate [Ventolin HFA] 1 - 2 puff INHALATION Q4H PRN PRN #1 inhaler 12/30/16 [Rx Last Taken 01/19/20] Hydrocodon-Acetaminophen 5-325 1 tab PO 4X/DAY PRN 01/16/20 [History Last Taken Unknown] Trelegy Ellipta 1 inh INHALATION DAILY 04/19/21 [History Last Taken Unknown] bisoprolol fumarate 5 mg PO DINNER 04/19/21 [History Last Taken 01/25/22] ferrous sulfate [FeroSul] 325 mg PO DAILY 04/19/21 [History Last Taken 01/26/22] omeprazole 40 mg PO DAILY 04/19/21 [History Last Taken 01/26/22] loratadine 10 mg PO DAILY 01/26/22 [History Last Taken 01/26/22] losartan 25 mg PO DAILY 01/26/22 [History Last Taken 01/26/22] pioglitazone 30 mg PO DAILY@0800 01/26/22 [History Last Taken 01/26/22] cholecalciferol (vitamin D3) 125 mcg PO DAILY 01/31/22 [History Last Taken Unknown] docusate sodium 100 mg PO BID 01/31/22 [History Last Taken Unknown] enoxaparin 30 mg SUBCUT DAILY@0600 01/31/22 [History Last Taken Unknown] Allergy/AdvReac Type Severity Reaction Status Date / Time No Known Allergies Allergy Verified 04/19/21 17:11 Surgical History (Updated 01/31/22 @ 19:[address] Manoj Villatoro MD) Status post open reduction with internal fixation (ORIF) of fracture of ankle Social History (Updated 01/31/22 @ 19:[address] Manoj Villatoro MD) household members: spouse Smoking Status: Former smoker alcohol intake: never substance use type: does not use ROS Constitutional Constitutional: Denies chills, fever(s) or weight gain ENT HEENT: Denies headache(s), nasal congestion or nasal discharge Cardiovascular Cardiovascular: Denies chest pain or palpitations Respiratory/Chest Respiratory/Chest: Denies cough, excessive phlegm production or shortness of breath with exertion Gastrointestinal Gastrointestinal: Denies abdominal pain, nausea or vomiting Genitourinary Genitourinary: Denies dysuria Musculoskeletal Musculoskeletal: Denies joint pain or joint swelling Integumentary Integumentary: Denies rash or wounds Neurologic Neurologic: Denies focal weakness, numbness or tingling Psychiatric Psychiatric: Denies anxiety, auditory hallucinations, depression, homicidal ideation or suicidal ideation Vital Signs Vital Signs Vital Signs: 01/31/22 15:14 01/31/22 15:16 Temperature 97.1 F L Temperature Source Temporal Pulse Rate 103 H 103 H Pulse Rhythm Regular Pulse Strength Normal (2+) Respiratory Rate 18 Respiratory Effort Normal Non-Labored Respiratory Depth Normal Respiratory Pattern Normal Blood Pressure 141/55 H Blood Pressure Mean 83 Blood Pressure Source Monitor Blood Pressure Position Sitting Blood Pressure Location Right Arm Pulse Ox 96 96 Oxygen Delivery Method Nasal Cannula Nasal Cannula Oxygen Flow Rate (L/min) 3 3 Weight Weight: 95.164 kg Body Mass Index (BMI) 32.8 Physical Exam Const alert General Appearance: cooperative HEENT normocephalic Eyes PERRL and EOMs intact bilaterally Neck supple, no JVD and no carotid bruits Resp normal respiratory effort, normal air movement and clear to auscultation bilaterally Cardio regular rate and regular rhythm GI normal to inspection, nondistended, normoactive bowel sounds, non-tender and non-distended Extremity normal capillary refill Extremity Narrative: Left lower extremity splint. General Extremity: Negative for edema Skin no rashes or lesions noted General Skin Exam: no breakdown Psych affect normal Appearance: appropriate Assessment & Plan Assessment/Plan (1) Debility: (2) Trimalleolar fracture of ankle, closed: QUALIFIERS: Encounter type: initial encounter Laterality: left Qualified Code(s): S82.852A - Displaced trimalleolar fracture of left lower leg, initial encounter for closed fracture (3) Acute kidney injury: (4) Hyperkalemia: (5) Diabetes mellitus: (6) Vitamin B12 deficiency: (7) Hyperlipidemia: (8) Insomnia: (9) Depression: (10) Iron deficiency anemia: (11) Gastroesophageal reflux disease: (12) Chronic obstructive pulmonary disease: (13) Chronic kidney disease, stage 3b: (14) Stroke: PLAN: 76 year old female with below past medical history hospitalized for left trimalleolar fracture, underwent ORIF left ankle 01/29/[address] Chris linn, complicated by acute kidney injury, hyperkalemia, admitted to TCU with debility, here for rehabilitation, strengthening, prior to discharge home with . * Debility - PT/OT. * Pain - Gilbert 5/325mg 4x/day prn pain (1-10). * Bowel - Miralax 17gm daily, Senna/colace 1 tablet bid, Dulcolax 10mg pr daily prn. * Adult immunization - Administer pneumonia vaccine, flu vaccine, covid19 vaccine as appropriate. * DVT prophylaxis - Lovenox 30mg sc daily. * Left ankle fracture s/p ORIF - Consult Dr. Crump to follow. * COPD - Advair 1 puff q12h, Incruse 1 puff daily, Albuterol 1-2 puff q4h prn, oxygen 3-4 liters per nasal cannula. * Stroke - Aspirin 81mg daily. * Hyperlipidemia - Atorvastatin 10mg qhs. * Hypertension - Bisoprolol 5mg daily, Losartan 25mg daily. * Depression - Wellbutrin SR 150mg bid, Venlafaxine XR 150mg daily, stable chronic senior care use, GDR not recommended. * Vitamin D deficiency - D3 125mcg daily. * Vitamin B12 deficiency - B12 1000mcg daily. * Iron deficiency anemia - Ferrous sulfate 325mg daily. * Diabetes Mellitus II Glimepiride 2mg bid, Pioglitazone 30mg daily. * Allergic rhinitis - Loratadine 10mg daily, Singulair 10mg qhs. * GERD - Pantoprazole 40mg daily. * Insomnia - Trazodone 150mg qhs, stable chronic furnace helper use, GDR not recommended.
[2022-01-31] MEDS: traZODone 50 MG Tablet 150 MG PO (20:10)
[2022-01-31] MEDS: HYDROcodone Bitartrate/Apap 5/325 Tablet PO (20:10)
[2022-01-31] MEDS: Atorvastatin Calcium 10 MG Tablet PO (20:11)
[2022-01-31] MEDS: Montelukast 10 MG Tablet PO (20:11)
[2022-02-01] MEDS: Umeclidinium Bromide Inhaler 1 PUFF INHALATION (05:45)
[2022-02-01] MEDS: Enoxaparin 30 MG/0.3 ML Syringe SC (05:46)
[2022-02-01] MEDS: Loratadine 10 MG Tablet PO (05:48)
[2022-02-01] MEDS: Losartan Potassium 25 MG Tablet PO (05:48)
[2022-02-01] MEDS: Cholecalciferol (Vit D3) 125 MCG CAPSULE (5,000 UNITS) PO (05:48)
[2022-02-01] MEDS: Fluticasone/Salmeterol 232-14 Inhaler 1 PUFF INHALATION ×2 (05:48→18:10)
[2022-02-01] MEDS: Venlafaxine XR 150 MG Capsule PO (05:48)
[2022-02-01] MEDS: buPROPion (SR) 150 MG Tablet.SA PO ×2 (05:48→18:05)
[2022-02-01] MEDS: Pantoprazole Sodium 40 MG Tablet PO (05:48)
[2022-02-01] MEDS: Cyanocobalamin 500 MCG Tablet 1000 MCG PO (05:48)
[2022-02-01] MEDS: Senna/Docusate Sodium 1 Tablet PO ×2 (05:52→18:05)
[2022-02-01] MEDS: Polyethylene Glycol 3350 17 GM PACKET PO (05:52)
[2022-02-01 05:53] LABS: Absolute Lymphocyte Count 0.93 X10^3/uL (0.83-4.51); Absolute Neutrophil Count 4.2 X10^3/uL (2.0-7.7); Basophil# 0.01 X10^3/uL; Basophil% 0.2 % (0-1); Eosinophil# 0.25 X10^3/uL; Eosinophils% 4.1 % (0-5); Hematocrit 27.2 % (37-47); Hemoglobin 8.1 g/dL (12.0-15.0); Lymphocyte # 0.93 X10^3/ul (0.83-4.51); Lymphocyte % 15.3 % (19-41); Mean Corp Hgb Conc 29.8 g/dL (32-36); Mean Corpuscular Hgb 30.5 pg (27.0-32.0); Mean Corpuscular Volume 102.3 fL (81-99); Mean Platelet Vol. 10.2 fl (6.2-12.0); Monocyte# 0.67 X10^3/uL; NRBC Flagged by Analyzer 0 % (0-5); Neutrophil # 4.18 X10^3/uL (2.7-7.7); Neutrophil % 68.7 % (47-70); Platelet Count 202 K/mm3 (150-450); RBC Distribution Width CV 13.6 % (11.6-14.6); RBC Distribution Width SD 51.5 fl (35.1-43.9); Red Blood Count 2.66 M/mm3 (4.2-5.4); White Blood Count 6.1 K/mm3 (4.4-11.0)
[2022-02-01 06:17] LABS: Anion Gap 4 (5-15); BUN 43 mg/dL (7-18); BUN/Creat Ratio 24.2 RATIO (10-20); Calcium,Total 7.8 mg/dL (8.5-10.1); Chloride 105 mmol/L (98-107); Creatinine, Serum 1.78 mg/dL (0.55-1.02); EST Glomerular Filtration Rate 30 mL/min (>60); Est Glom Filt Rate - Afr Amer 36 mL/min (>60); Estimated Creatinine Clearance 26.56 ml/min; Glucose 72 mg/dL (74-106); Sodium Level 138 mmol/L (136-145)
[2022-02-01 06:26] LABS: Bedside Glucose 61 mg/dL (74-106)
--- NOTE | 2022-02-01 08:07 | PHA.CONS1_ITS ---
Progress Note - Pharmacy Subjective: TCU ADMISSION Objective: Allergies No Known Allergies Allergy (Verified 04/19/21 17:11) Current Medications Generic Name Dose Route Start Last Admin Trade Name Reeceq PRN Reason Stop Dose Admin Hydrocodone Bitart/Acetaminophen 1 tablet 01/31/22 16:12 01/31/22 20:10 Hydrocodone Bitartrate/Apap 5/325 Tablet PO 1 tablet 4X/DAY PRN Administration Pain Score 1-10 Albuterol Sulfate 1 - 2 puff 01/31/22 15:33 Albuterol Sulfate 8 Gm Inhaler (60 Puffs) INHALATION Q4H PRN PRN Sob &/Or Wheezing Aspirin 81 mg 02/01/22 08:00 Aspirin 81 Mg Tab.Chew PO BREAKFAST [facility] Atorvastatin Calcium 10 mg 01/31/22 22:00 01/31/22 20:11 Atorvastatin Calcium 10 Mg Tablet PO 10 mg QHS [facility] Administration Bisacodyl 10 mg 01/31/22 15:51 Bisacodyl 10 Mg Suppository RC DAILY PRN CONSTIPATION Bisoprolol Fumarate 5 mg 01/31/22 17:00 01/31/22 17:53 Bisoprolol Fumarate 5 Mg Tablet PO 5 mg DINNER [facility] Administration Bupropion HCl 150 mg 01/31/22 18:00 02/01/22 05:48 Bupropion (Sr) 150 Mg Tablet.Sa PO 150 mg BID REG Administration Cholecalciferol 125 mcg 02/01/22 06:00 02/01/22 05:48 Cholecalciferol (Vit D3) 125 Mcg Capsule (5,000 Units) PO 125 mcg DAILY REG Administration Cyanocobalamin 1,000 mcg 02/01/22 06:00 02/01/22 05:48 Cyanocobalamin 500 Mcg Tablet PO 1,000 mcg DAILY [facility] Administration Enoxaparin Sodium 30 mg 02/01/22 06:00 02/01/22 05:46 Enoxaparin 30 Mg/0.3 Ml Syringe SC 30 mg DAILY@0600 [facility] Administration Ferrous Sulfate 325 mg 02/01/22 08:00 Ferrous Sulfate 325 Mg Tablet PO BREAKFAST [facility] Glimepiride 1 mg 02/01/22 08:00 Glimepiride 1 Mg Tablet PO BIDCM [facility] Loratadine 10 mg 02/01/22 06:00 02/01/22 05:48 Loratadine 10 Mg Tablet PO 10 mg DAILY REG Administration Losartan Potassium 25 mg 02/01/22 06:00 02/01/22 05:48 Losartan Potassium 25 Mg Tablet PO 25 mg DAILY REG Administration Montelukast Sodium 10 mg 01/31/22 22:00 01/31/22 20:11 Montelukast 10 Mg Tablet PO 10 mg QHS REG Administration Pantoprazole Sodium 40 mg 02/01/22 06:00 02/01/22 05:48 Pantoprazole Sodium 40 Mg Tablet PO 40 mg DAILY REG Administration Pioglitazone HCl 30 mg 02/01/22 08:00 Pioglitazone Hydrochloride 30 Mg Tablet PO BREAKFAST REG Polyethylene Glycol 17 gm 02/01/22 06:00 02/01/22 05:52 Polyethylene Glycol 3350 17 Gm Packet PO 17 gm DAILY REG Administration Fluticasone/Salmeterol 1 puff 01/31/22 18:00 02/01/22 05:48 Fluticasone/Salmeterol 232-14 Inhaler INHALATION 1 puff Q12 REG Administration Senna/Docusate Sodium 1 tablet 02/01/22 06:00 02/01/22 05:52 Senna/Docusate Sodium 1 Tablet PO 1 tablet BID REG Administration Sodium Chloride 10 - 40 ml 01/31/22 15:54 0.9% Saline Lock 10 Ml Syringe IV UD PRN SALINE FLUSH Trazodone HCl 150 mg 01/31/22 22:00 01/31/22 20:10 Trazodone 50 Mg Tablet PO 150 mg QHS REG Administration Tuberculin PPD 0.1 ml 02/01/22 10:00 Tuberculin,Purif.Prot.Deriv. 50 Tu/Ml Vial ID 02/01/22 10:01 X1 ONE Tuberculin PPD 0.1 ml 02/08/22 10:00 Tuberculin,Purif.Prot.Deriv. 50 Tu/Ml Vial ID 02/08/22 10:01 X1 ONE Umeclidinium [place] 1 puff 02/01/22 06:00 02/01/22 05:45 Umeclidinium [place] Inhaler INHALATION 1 puff DAILY REG Administration Venlafaxine HCl 150 mg 02/01/22 06:00 02/01/22 05:48 Venlafaxine Xr 150 Mg Capsule PO 150 mg DAILY REG Administration Problem List (Last Reviewed 01/31/22 @ 19:[address] Manoj Villatoro MD) Stroke (Acute) Chronic kidney disease, stage 3b (Acute) Chronic obstructive pulmonary disease (Chronic) Gastroesophageal reflux disease (Acute) Iron deficiency anemia (Acute) Depression (Acute) Insomnia (Acute) Hyperlipidemia (Acute) Vitamin B12 deficiency (Acute) Diabetes mellitus (Acute) Hyperkalemia (Acute) Acute kidney injury (Acute) Debility (Acute) Trimalleolar fracture of ankle, closed (Acute) Vital Signs Temp Pulse Resp BP Pulse Ox 97.1 F L 103 H 18 141/55 H 96 01/31/22 15:14 01/31/22 15:16 01/31/22 15:14 01/31/22 15:14 01/31/22 15:16 Oxygen Flow Rate (L/min) 3 Oxygen Delivery Method Nasal Cannula Weight: 95.164 kg Body Mass Index (BMI) 32.8 Sodium 138 mmol/L (136-145) 02/01/22 05:15 Potassium 4.0 mmol/L (3.5-5.1) 02/01/22 05:15 Chloride 105 mmol/L (98-107) 02/01/22 05:15 Carbon Dioxide 29.0 mmol/L (21.0-32.0) 02/01/22 05:15 Anion Gap 4 (5-15) L 02/01/22 05:15 BUN 43 mg/dL (7-18) H 02/01/22 05:15 Creatinine 1.78 mg/dL (0.55-1.02) H 02/01/22 05:15 Est GFR (MDRD) Af Amer 36 mL/min (>60) L 02/01/22 05:15 Est GFR (MDRD) Non-Af 30 mL/min (>60) L 02/01/22 05:15 BUN/Creatinine Ratio 24.2 RATIO (10-20) H 02/01/22 05:15 Glucose 72 mg/dL (74-106) L 02/01/22 05:15 Assessment/Plan: 1. Pain: hydrocodone/acetaminophen 5/325mg PO 4x/day PRN pain 1-10. Please continue to monitor for increased pain, PRN usage, constipation and respiratory depression. 2. DVT prophylaxis: enoxaparin 30mg SC daily. Please continue to monitor for S/S of bleeding/DVT, renal function, platelets (last 202,000) and hemoglobin (last 8.1g/dL). 3. Stroke/hypertension: aspirin 81mg PO DAILYCM, bisoprolol 5mg PO DINNER and losartan 25mg PO daily. Please continue to monitor for S/S of bleeding, hemoglobin, HR (last 103), BP (last 141/55) and renal function. 4. Hyperlipidemia: atorvastatin 10mg PO QHS. Please continue to monitor for muscle pain and lipid panel (last 09/17/21). 5. COPD: Advair 232/14mcg 1puff Q12, Incruse ellipta 1puff daily and albuterol inhaler 1-2puff Q4H PRN SOB and/or wheezing. Please continue to monitor for SOB/wheezing, PRN usage and HR. Please rinse mouth with water and spit out following advair administration to decrease the risk of thrush. 6. Diabetes mellitus II: glimepiride 1mg PO BIDCM (dose decreased this morning) and pioglitazone 30mg PO BREAKFAST. Please continue to monitor for S/S of hypoglycemia, glucose (last 61mg/dL), and hemoglobin A1c (last 8.1%). Patient with low glucose this morning, glimepiride dose decreased. 7. GERD: pantoprazole 40mg PO daily. Please continue to monitor for S/S of GERD and diarrhea. 8. Iron deficiency anemia: ferrous sulfate 325mg PO daily. Please continue to monitor hemoglobin, constipation and for dark stools. 9. Allergic rhinitis: loratadine 10mg PO daily and montelukast 10mg PO QHS. Please continue to monitor for S/S of allergies. *10. Vitamin B12 and D deficiencies: cholecalciferol 125mcg PO daily and cyanocobalamin 1000mcg PO daily. Please consider ordering a vitamin B12 level if clinically appropriate. Last level from 07/2015. Please continue to monitor vitamin D levels. Thanks. Psychotropic Medications: 1. Depression: bupropion SR 150mg PO BID and venlafaxine XR 150mg PO daily. Please see physician note regarding GDR. Thanks. 2. Insomnia: trazodone 150mg PO QHS. Please see physician note regarding GDR. Thanks. Unnecessary Medications: None Bowel Regimen: Miralax 17gm PO daily, senna/docusate 1T PO BID and bisacodyl 10mg RC daily PRN constipation. Please continue to monitor for S/S of constipation and PRN usage. Date of Note:: 02/01/22
[2022-02-01] MEDS: Aspirin 81 MG TAB.CHEW PO (08:39)
[2022-02-01] MEDS: Glimepiride 1 MG Tablet PO ×2 (08:39→18:05)
[2022-02-01] MEDS: Ferrous Sulfate 325 MG Tablet PO (08:39)
[2022-02-01 08:46] LABS: Bedside Glucose 196 mg/dL (74-106)
[2022-02-01] MEDS: Pioglitazone Hydrochloride 30 MG Tablet PO (10:38)
[2022-02-01] MEDS: HYDROcodone Bitartrate/Apap 5/325 Tablet PO ×2 (10:42→18:10)
[2022-02-01] MEDS: Tuberculin,Purif.prot.deriv. 50 TU/ML Vial 0.1 ML ID (11:55)
[2022-02-01 15:26] VITALS: BP 131/52; PULSE 82; RESP 16; TEMP 35.6; O2SAT 96
--- NOTE | 2022-02-01 15:59 | CASEMGMT ---
Social Work Met with patient for initial assessment. Introduced self and role. Pt wishes to have daughter as primary contact and as secondary. Pt lives at home with , but he is blind and cannot physically assist pt. Discussed code status and MOLST form. Pt wishes to be DNR-CCA, no intubation. Nursing notified. DNR form and MOLST signed, communicated to and placed in chart. Pt has living will, but no HCPOA. Pt would like to complete HCPOA and name daughter. SW to complete as time allows prior to DC. [facility] and continued stay is not guaranteed. The goal is for pt to return home with . Inquired about whom can assist since cannot. Pt states her dtr works 7 days on and 7 days off, so she can assist on her off days. Encouraged to think about what she will do on the days her dtr is working. Pt is NWB on LLE. Pt agreed. Care plan meeting scheduled with dtr on 02/06 and IDT will discuss further. SW to continue to follow. Adelia Armijo, ARC CUTTER [employer] OPTICS JOINTER
[2022-02-01] MEDS: Bisoprolol Fumarate 5 MG Tablet PO (18:05)
[2022-02-01 18:11] LABS: Bedside Glucose 115 mg/dL (74-106)
[2022-02-01 18:13] VITALS: BP 113/65; PULSE 87
[2022-02-01 20:08] VITALS: PULSE 84; RESP 16; O2SAT 95
[2022-02-01] MEDS: traZODone 50 MG Tablet 150 MG PO (21:24)
[2022-02-01] MEDS: Atorvastatin Calcium 10 MG Tablet PO (21:24)
[2022-02-01] MEDS: Nystatin Powder 15gm Bottle 1 APPLIC TOPICAL (21:25)
[2022-02-01] MEDS: Montelukast 10 MG Tablet PO (21:25)
[2022-02-01 21:36] LABS: Bedside Glucose 79 mg/dL (74-106)
[2022-02-02] MEDS: Polyethylene Glycol 3350 17 GM PACKET PO (05:56)
[2022-02-02] MEDS: Umeclidinium Bromide Inhaler 1 PUFF INHALATION (05:58)
[2022-02-02] MEDS: Cholecalciferol (Vit D3) 125 MCG CAPSULE (5,000 UNITS) PO (05:59)
[2022-02-02] MEDS: Losartan Potassium 25 MG Tablet PO (05:59)
[2022-02-02] MEDS: buPROPion (SR) 150 MG Tablet.SA PO ×2 (05:59→17:19)
[2022-02-02] MEDS: Venlafaxine XR 150 MG Capsule PO (06:00)
[2022-02-02] MEDS: Pantoprazole Sodium 40 MG Tablet PO (06:00)
[2022-02-02] MEDS: Cyanocobalamin 500 MCG Tablet 1000 MCG PO (06:00)
[2022-02-02] MEDS: Loratadine 10 MG Tablet PO (06:01)
[2022-02-02] MEDS: Fluticasone/Salmeterol 232-14 Inhaler 1 PUFF INHALATION ×2 (06:01→17:17)
[2022-02-02] MEDS: Nystatin Powder 15gm Bottle 1 APPLIC TOPICAL ×2 (06:02→17:17)
[2022-02-02] MEDS: Enoxaparin 30 MG/0.3 ML Syringe SC (06:03)
[2022-02-02] MEDS: Senna/Docusate Sodium 1 Tablet PO ×2 (06:03→17:18)
[2022-02-02 06:21] LABS: Bedside Glucose 45 mg/dL (74-106)
[2022-02-02 06:36] LABS: Bedside Glucose 47 mg/dL (74-106)
--- NOTE | 2022-02-02 06:36 | NURSING ---
Blood sugar 45 this AM, re-check w/ different machine was 47. Patient awake and appropriate, denies any symptoms. Provided juice with peanut butter and crackers. Stat lab draw ordered to verify result. Will monitor.
[2022-02-02 06:38] LABS: Glucose 53 mg/dL (74-106)
[2022-02-02 06:51] LABS: Bedside Glucose 64 mg/dL (74-106)
[2022-02-02 06:55] VITALS: O2SAT 91
[2022-02-02] MEDS: Ferrous Sulfate 325 MG Tablet PO (09:10)
[2022-02-02] MEDS: Aspirin 81 MG TAB.CHEW PO (09:10)
[2022-02-02] MEDS: Pioglitazone Hydrochloride 30 MG Tablet PO (09:10)
[2022-02-02] MEDS: Glimepiride 1 MG Tablet PO (09:10)
[2022-02-02 09:45] VITALS: RESP 16; O2SAT 96
[2022-02-02 14:10] VITALS: BP 116/61; PULSE 86; RESP 16; TEMP 36.5; O2SAT 98
[2022-02-02] MEDS: Bisoprolol Fumarate 5 MG Tablet PO (16:10)
[2022-02-02 21:21] LABS: Bedside Glucose 87 mg/dL (74-106)
[2022-02-02] MEDS: Atorvastatin Calcium 10 MG Tablet PO (22:25)
[2022-02-02] MEDS: Montelukast 10 MG Tablet PO (22:25)
[2022-02-02] MEDS: HYDROcodone Bitartrate/Apap 5/325 Tablet PO (22:25)
[2022-02-02] MEDS: traZODone 50 MG Tablet 150 MG PO (22:26)
[2022-02-03] MEDS: Polyethylene Glycol 3350 17 GM PACKET PO (05:19)
[2022-02-03] MEDS: buPROPion (SR) 150 MG Tablet.SA PO ×2 (05:20→17:19)
[2022-02-03] MEDS: Cyanocobalamin 500 MCG Tablet 1000 MCG PO (05:20)
[2022-02-03] MEDS: Losartan Potassium 25 MG Tablet PO (05:20)
[2022-02-03] MEDS: Loratadine 10 MG Tablet PO (05:20)
[2022-02-03] MEDS: Pantoprazole Sodium 40 MG Tablet PO (05:21)
[2022-02-03] MEDS: Cholecalciferol (Vit D3) 125 MCG CAPSULE (5,000 UNITS) PO (05:21)
[2022-02-03] MEDS: Senna/Docusate Sodium 1 Tablet PO ×2 (05:21→17:20)
[2022-02-03] MEDS: Venlafaxine XR 150 MG Capsule PO (05:21)
[2022-02-03] MEDS: Enoxaparin 30 MG/0.3 ML Syringe SC (05:21)
[2022-02-03] MEDS: Nystatin Powder 15gm Bottle 1 APPLIC TOPICAL ×2 (05:22→17:23)
[2022-02-03] MEDS: Umeclidinium Bromide Inhaler 1 PUFF INHALATION (05:26)
[2022-02-03] MEDS: Fluticasone/Salmeterol 232-14 Inhaler 1 PUFF INHALATION ×2 (05:26→17:19)
[2022-02-03 05:56] VITALS: BP 134/77; PULSE 79
[2022-02-03 06:25] LABS: Bedside Glucose 58 mg/dL (74-106)
[2022-02-03] MEDS: Pioglitazone Hydrochloride 30 MG Tablet PO (07:58)
[2022-02-03] MEDS: Ferrous Sulfate 325 MG Tablet PO (07:59)
[2022-02-03] MEDS: Aspirin 81 MG TAB.CHEW PO (07:59)
[2022-02-03 11:51] LABS: Bedside Glucose 217 mg/dL (74-106)
[2022-02-03 14:23] VITALS: O2SAT 96
[2022-02-03 14:49] VITALS: BP 147/60; PULSE 76; RESP 20; TEMP 36.8; O2SAT 99
[2022-02-03] MEDS: Bisoprolol Fumarate 5 MG Tablet PO (18:06)
[2022-02-03 18:36] LABS: Bedside Glucose 153 mg/dL (74-106)
[2022-02-03] MEDS: HYDROcodone Bitartrate/Apap 5/325 Tablet PO (21:13)
[2022-02-03] MEDS: Montelukast 10 MG Tablet PO (21:13)
[2022-02-03] MEDS: Atorvastatin Calcium 10 MG Tablet PO (21:13)
[2022-02-03] MEDS: traZODone 50 MG Tablet 150 MG PO (21:13)
[2022-02-03 21:30] VITALS: O2SAT 95
[2022-02-03 21:30] LABS: Bedside Glucose 149 mg/dL (74-106)
[2022-02-04] MEDS: Cholecalciferol (Vit D3) 125 MCG CAPSULE (5,000 UNITS) PO (05:43)
[2022-02-04] MEDS: Venlafaxine XR 150 MG Capsule PO (05:43)
[2022-02-04] MEDS: Enoxaparin 30 MG/0.3 ML Syringe SC (05:43)
[2022-02-04] MEDS: Pantoprazole Sodium 40 MG Tablet PO (05:43)
[2022-02-04] MEDS: buPROPion (SR) 150 MG Tablet.SA PO ×2 (05:44→18:00)
[2022-02-04] MEDS: Nystatin Powder 15gm Bottle 1 APPLIC TOPICAL ×2 (05:44→18:01)
[2022-02-04] MEDS: Cyanocobalamin 500 MCG Tablet 1000 MCG PO (05:44)
[2022-02-04] MEDS: Loratadine 10 MG Tablet PO (05:44)
[2022-02-04] MEDS: Losartan Potassium 25 MG Tablet PO (05:45)
[2022-02-04] MEDS: Umeclidinium Bromide Inhaler 1 PUFF INHALATION (05:46)
[2022-02-04] MEDS: Fluticasone/Salmeterol 232-14 Inhaler 1 PUFF INHALATION ×2 (05:47→18:01)
[2022-02-04 05:49] VITALS: BP 132/50; PULSE 80
[2022-02-04 06:21] LABS: Bedside Glucose 143 mg/dL (74-106)
[2022-02-04] MEDS: Ferrous Sulfate 325 MG Tablet PO (07:54)
[2022-02-04] MEDS: Pioglitazone Hydrochloride 30 MG Tablet PO (07:54)
[2022-02-04] MEDS: Aspirin 81 MG TAB.CHEW PO (07:54)
[2022-02-04 15:58] VITALS: BP 142/58; PULSE 82; RESP 16; TEMP 36.1; O2SAT 92
[2022-02-04] MEDS: Senna/Docusate Sodium 1 Tablet PO (18:00)
[2022-02-04] MEDS: Bisoprolol Fumarate 5 MG Tablet PO (18:00)
[2022-02-04] MEDS: HYDROcodone Bitartrate/Apap 5/325 Tablet PO (18:00)
[2022-02-04] MEDS: traZODone 50 MG Tablet 150 MG PO (21:19)
[2022-02-04] MEDS: Atorvastatin Calcium 10 MG Tablet PO (21:19)
[2022-02-04] MEDS: Montelukast 10 MG Tablet PO (21:19)
[2022-02-04 21:21] LABS: Bedside Glucose 194 mg/dL (74-106)
[2022-02-05] MEDS: Enoxaparin 30 MG/0.3 ML Syringe SC (06:15)
[2022-02-05] MEDS: Umeclidinium Bromide Inhaler 1 PUFF INHALATION (06:16)
[2022-02-05] MEDS: Polyethylene Glycol 3350 17 GM PACKET PO (06:18)
[2022-02-05] MEDS: Losartan Potassium 25 MG Tablet PO (06:19)
[2022-02-05] MEDS: Senna/Docusate Sodium 1 Tablet PO ×2 (06:19→16:54)
[2022-02-05] MEDS: Venlafaxine XR 150 MG Capsule PO (06:19)
[2022-02-05 06:20] LABS: Bedside Glucose 151 mg/dL (74-106)
[2022-02-05] MEDS: Cholecalciferol (Vit D3) 125 MCG CAPSULE (5,000 UNITS) PO (06:20)
[2022-02-05] MEDS: Cyanocobalamin 500 MCG Tablet 1000 MCG PO (06:20)
[2022-02-05] MEDS: buPROPion (SR) 150 MG Tablet.SA PO ×2 (06:20→16:54)
[2022-02-05] MEDS: Loratadine 10 MG Tablet PO (06:20)
[2022-02-05] MEDS: Pantoprazole Sodium 40 MG Tablet PO (06:20)
[2022-02-05] MEDS: Fluticasone/Salmeterol 232-14 Inhaler 1 PUFF INHALATION ×2 (06:20→16:54)
[2022-02-05] MEDS: Nystatin Powder 15gm Bottle 1 APPLIC TOPICAL ×2 (06:21→16:54)
[2022-02-05 06:24] VITALS: BP 145/53; PULSE 80
[2022-02-05 06:38] VITALS: O2SAT 97
[2022-02-05] MEDS: Pioglitazone Hydrochloride 30 MG Tablet PO (08:07)
[2022-02-05] MEDS: Aspirin 81 MG TAB.CHEW PO (08:07)
[2022-02-05] MEDS: Ferrous Sulfate 325 MG Tablet PO (08:07)
[2022-02-05 10:56] LABS: Bedside Glucose 256 mg/dL (74-106)
--- NOTE | 2022-02-05 12:00 | PN_ITS ---
Subjective Subjective This is a 76-year-old female seen bedside resting comfortably in a reclining chair with feet elevated status post ORIF of the left ankle 01/29/2022. She denies any constitutional symptoms. She denies any pain to her left lower extremity. She denies any cramping in the calf muscle. She has no other complaints today. Objective Data Objective Data Vital Signs: Vital Signs Temp Pulse Resp BP Pulse Ox 96.9 F L 80 16 145/53 H 97 02/04/22 15:58 02/05/22 06:24 02/04/22 15:58 02/05/22 06:24 02/05/22 06:38 Oxygen Flow Rate (L/min) 3 Oxygen Delivery Method Nasal Cannula Weight: 92.986 kg Body Mass Index (BMI) 32.8 Intake & Output: Intake and Output for Last 24 Hours 02/03/22 02/04/22 02/05/22 23:59 23:59 23:59 Intake Total 720 / 720 960 / 960 360 / 360 Balance 720 / 720 960 / 960 360 / 360 Lab / Micro Data Result Diagrams: 02/01/22 05:15 02/02/22 06:15 Labs: Laboratory Results - last 24 hr 02/04/22 21:14: POC Glucose 194 H 02/05/22 06:14: POC Glucose 151 H 02/05/22 10:51: POC Glucose 256 H Physical Exam Const alert, oriented x3 and no apparent distress General Appearance: cooperative and comfortable HEENT normocephalic Eyes General Eye: normal appearance of both eyes Neck General: normal visual inspection Lymph Lymphatic: no lymphadenopathy noted and no lymphedema noted Resp normal respiratory effort Cardio regular rate and regular rhythm Extremity General Extremity: Negative for calf tenderness Peripheral Pulses: Yes posterior tibial pulses present and dorsalis pedis pulses present Skin no rashes or lesions noted and no jaundice Skin Narrative: Sutures intact at medial and lateral ankle surgical wounds well coapted with no localized signs of infection. Slight nonpitting edema to the dorsal aspect of the foot and rani-ankle. Neuro oriented x3 and moves all extremities Assessment & Plan Assessment/Plan (1) Ankle pain, left: (2) Diabetes mellitus: (3) Chronic obstructive pulmonary disease: (4) Chronic kidney disease, stage 3b: (5) Debility: (6) Depression: (7) Hyperlipidemia: (8) Displaced trimalleolar fracture of left lower leg, subsequent encounter for closed fracture with routine healing: PLAN: This is a 79-year-old female who is status post ORIF of the left ankle performed on 01/29/[address] Crump. POD# 7. She is admitted to TCU for rehabilitation prior to discharge home. Patient seen and evaluated Incision site inspected sutures intact and incision site well coapted. No localized signs of infection. No cramping in the calf muscle or shortness of breath. Surgical site of the left lower extremity demonstrates minimal edema and is progressing well in her healing progress. She is to continue to elevate the lower extremities for edema control and apply a pillow under her left leg. She is to keep her dressings clean dry and intact. She is to remain nonweightbearing to her left lower extremity with assistance of a walker for ambulation and transfer to bed. Dr. Villatoro is following for medical management, this is greatly appreciated. Podiatry will continue to follow during her postoperative period. When she is ready for discharge home she will follow-up in office with Dr. Crump for continued postsurgical care. Please call for any questions Dr. Jared Robert Jr. D.P.M. [facility] [phone] Note: Flamsred speech recognition papier mache' molder software was used to create portio ns of this document. Sound-alike and misspelled words, as well as other papier mache' molder errors may be contained in the documentation.
[2022-02-05 14:29] VITALS: BP 144/68; PULSE 78; RESP 16; TEMP 36.3; O2SAT 94
--- NOTE | 2022-02-05 15:49 | NURSING ---
pt consent for covid booster went over and signed per pt.
[2022-02-05 16:36] LABS: Bedside Glucose 205 mg/dL (74-106)
[2022-02-05] MEDS: Bisoprolol Fumarate 5 MG Tablet PO (16:53)
[2022-02-05] MEDS: COVID-19 VACC, MRNA(PFIZER)/PF 30 MCG/0.3 ML SYRINGE IM (16:53)
[2022-02-05] MEDS: traZODone 50 MG Tablet 150 MG PO (20:46)
[2022-02-05] MEDS: Montelukast 10 MG Tablet PO (20:46)
[2022-02-05] MEDS: Atorvastatin Calcium 10 MG Tablet PO (20:46)
[2022-02-05 20:49] VITALS: PULSE 78; RESP 16; O2SAT 95
[2022-02-05 21:06] LABS: Bedside Glucose 133 mg/dL (74-106)
[2022-02-06 05:29] VITALS: BP 159/72; PULSE 82
[2022-02-06] MEDS: Umeclidinium Bromide Inhaler 1 PUFF INHALATION (05:30)
[2022-02-06] MEDS: Enoxaparin 30 MG/0.3 ML Syringe SC (05:31)
[2022-02-06] MEDS: Polyethylene Glycol 3350 17 GM PACKET PO (05:32)
[2022-02-06] MEDS: Losartan Potassium 25 MG Tablet PO (05:33)
[2022-02-06] MEDS: Venlafaxine XR 150 MG Capsule PO (05:33)
[2022-02-06] MEDS: Loratadine 10 MG Tablet PO (05:33)
[2022-02-06] MEDS: buPROPion (SR) 150 MG Tablet.SA PO ×2 (05:34→17:51)
[2022-02-06] MEDS: Cyanocobalamin 500 MCG Tablet 1000 MCG PO (05:34)
[2022-02-06] MEDS: Pantoprazole Sodium 40 MG Tablet PO (05:34)
[2022-02-06] MEDS: Senna/Docusate Sodium 1 Tablet PO ×2 (05:34→17:51)
[2022-02-06] MEDS: Cholecalciferol (Vit D3) 125 MCG CAPSULE (5,000 UNITS) PO (05:34)
[2022-02-06] MEDS: Fluticasone/Salmeterol 232-14 Inhaler 1 PUFF INHALATION ×2 (05:34→17:51)
[2022-02-06] MEDS: Nystatin Powder 15gm Bottle 1 APPLIC TOPICAL ×2 (05:36→17:52)
[2022-02-06 06:20] LABS: Bedside Glucose 155 mg/dL (74-106)
[2022-02-06 06:43] VITALS: O2SAT 94
[2022-02-06] MEDS: Pioglitazone Hydrochloride 30 MG Tablet PO (08:04)
[2022-02-06] MEDS: Aspirin 81 MG TAB.CHEW PO (08:05)
[2022-02-06] MEDS: Ferrous Sulfate 325 MG Tablet PO (08:05)
--- NOTE | 2022-02-06 10:25 | CASEMGMT ---
Addendum entered by Adelia Armijo 02/06/22 13:37: Correction: NRD 02/07 Original Note: Social Work IDT met with patient and dtr for care plan meeting. Discussed patient's progress in PT/OT and nursing. Pt making progress. Explained [employer] insurance with NRD 03/09 and continued stay is not guaranteed. Pt has a ramp to enter. Lives at home with but is blind. Inquired about safe DC plan. Pt was seen by yesterday and is to continue with NWBS - time unknown. 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 Provided nonskilled HHC list to supplement. Offered therapy family with dtr and grandson. Dtr to contact to schedule after speaking with grandson. SW to continue to follow. BERE AlbarranW
--- NOTE | 2022-02-06 12:04 | NURSING ---
Completed pain interview for JOHNSON 02/07/22
--- NOTE | 2022-02-06 14:19 | NS ---
Completed Dietary MDS assessment for JOHNSON 02/07/22.
[2022-02-06 15:02] VITALS: BP 142/68; PULSE 68; RESP 16; TEMP 36.6; O2SAT 92
--- NOTE | 2022-02-06 15:17 | CASEMGMT ---
Social Work BIMS and PHQ-9 completed for MDS assessment. Adelia Armijo, TAX SPECIALIST GLOBAL CATEGORY MANAGER
[2022-02-06] MEDS: Bisoprolol Fumarate 5 MG Tablet PO (17:51)
[2022-02-06 17:54] VITALS: BP 162/70; PULSE 78
[2022-02-06] MEDS: Atorvastatin Calcium 10 MG Tablet PO (20:20)
[2022-02-06] MEDS: Montelukast 10 MG Tablet PO (20:20)
[2022-02-06] MEDS: traZODone 50 MG Tablet 150 MG PO (20:21)
[2022-02-06 21:31] LABS: Bedside Glucose 174 mg/dL (74-106)
[2022-02-07] MEDS: Umeclidinium Bromide Inhaler 1 PUFF INHALATION (05:46)
[2022-02-07] MEDS: Enoxaparin 30 MG/0.3 ML Syringe SC (05:46)
[2022-02-07] MEDS: Fluticasone/Salmeterol 232-14 Inhaler 1 PUFF INHALATION ×2 (05:46→17:06)
[2022-02-07] MEDS: Polyethylene Glycol 3350 17 GM PACKET PO (05:46)
[2022-02-07] MEDS: Cholecalciferol (Vit D3) 125 MCG CAPSULE (5,000 UNITS) PO (05:47)
[2022-02-07] MEDS: Cyanocobalamin 500 MCG Tablet 1000 MCG PO (05:47)
[2022-02-07] MEDS: Senna/Docusate Sodium 1 Tablet PO ×2 (05:47→17:06)
[2022-02-07] MEDS: buPROPion (SR) 150 MG Tablet.SA PO ×2 (05:47→17:06)
[2022-02-07] MEDS: Venlafaxine XR 150 MG Capsule PO (05:48)
[2022-02-07] MEDS: Losartan Potassium 25 MG Tablet PO (05:48)
[2022-02-07] MEDS: Pantoprazole Sodium 40 MG Tablet PO (05:48)
[2022-02-07] MEDS: Loratadine 10 MG Tablet PO (05:49)
[2022-02-07] MEDS: Nystatin Powder 15gm Bottle 1 APPLIC TOPICAL (05:57)
[2022-02-07 06:21] LABS: Bedside Glucose 188 mg/dL (74-106)
[2022-02-07] MEDS: Aspirin 81 MG TAB.CHEW PO (08:11)
[2022-02-07] MEDS: Pioglitazone Hydrochloride 30 MG Tablet PO (08:11)
[2022-02-07] MEDS: Ferrous Sulfate 325 MG Tablet PO (08:11)
[2022-02-07 15:09] VITALS: BP 156/65; PULSE 77; RESP 17; TEMP 36.4; O2SAT 97
[2022-02-07 16:52] VITALS: O2SAT 97
[2022-02-07] MEDS: Bisoprolol Fumarate 5 MG Tablet PO (17:06)
[2022-02-07] MEDS: traZODone 50 MG Tablet 150 MG PO (20:27)
[2022-02-07] MEDS: Atorvastatin Calcium 10 MG Tablet PO (20:27)
[2022-02-07] MEDS: Montelukast 10 MG Tablet PO (20:27)
[2022-02-07 21:50] LABS: Bedside Glucose 174 mg/dL (74-106)
[2022-02-07 22:59] VITALS: PULSE 85; RESP 16; O2SAT 92
[2022-02-08 05:59] LABS: Absolute Lymphocyte Count 1.09 X10^3/uL (0.83-4.51); Absolute Neutrophil Count 5.1 X10^3/uL (2.0-7.7); Basophil# 0.03 X10^3/uL; Basophil% 0.4 % (0-1); Eosinophil# 0.23 X10^3/uL; Eosinophils% 3.2 % (0-5); Hemoglobin 8.6 g/dL (12.0-15.0); Lymphocyte # 1.09 X10^3/ul (0.83-4.51); Lymphocyte % 15.2 % (19-41); Mean Corp Hgb Conc 30.7 g/dL (32-36); Mean Corpuscular Volume 97.6 fL (81-99); Mean Platelet Vol. 10.3 fl (6.2-12.0); Monocyte# 0.63 X10^3/uL; Monocyte% 8.8 % (0-10); NRBC Flagged by Analyzer 0 % (0-5); Neutrophil # 5.06 X10^3/uL (2.7-7.7); Neutrophil % 70.9 % (47-70); Platelet Count 313 K/mm3 (150-450); RBC Distribution Width CV 13.2 % (11.6-14.6); RBC Distribution Width SD 47.3 fl (35.1-43.9); Red Blood Count 2.87 M/mm3 (4.2-5.4); White Blood Count 7.2 K/mm3 (4.4-11.0)
[2022-02-08 06:15] LABS: Bedside Glucose 176 mg/dL (74-106)
[2022-02-08] MEDS: Umeclidinium Bromide Inhaler 1 PUFF INHALATION (06:22)
[2022-02-08] MEDS: Loratadine 10 MG Tablet PO (06:23)
[2022-02-08] MEDS: Enoxaparin 30 MG/0.3 ML Syringe SC (06:23)
[2022-02-08] MEDS: Fluticasone/Salmeterol 232-14 Inhaler 1 PUFF INHALATION ×2 (06:23→17:17)
[2022-02-08] MEDS: Senna/Docusate Sodium 1 Tablet PO ×2 (06:23→17:17)
[2022-02-08] MEDS: Pantoprazole Sodium 40 MG Tablet PO (06:23)
[2022-02-08] MEDS: Venlafaxine XR 150 MG Capsule PO (06:23)
[2022-02-08] MEDS: Cholecalciferol (Vit D3) 125 MCG CAPSULE (5,000 UNITS) PO (06:23)
[2022-02-08] MEDS: buPROPion (SR) 150 MG Tablet.SA PO ×2 (06:23→17:16)
[2022-02-08] MEDS: Cyanocobalamin 500 MCG Tablet 1000 MCG PO (06:23)
[2022-02-08] MEDS: Losartan Potassium 25 MG Tablet PO (06:23)
[2022-02-08] MEDS: Polyethylene Glycol 3350 17 GM PACKET PO (06:24)
[2022-02-08] MEDS: Nystatin Powder 15gm Bottle 1 APPLIC TOPICAL ×2 (06:33→17:17)
[2022-02-08 06:39] VITALS: BP 139/61; PULSE 72
[2022-02-08 07:01] LABS: Anion Gap 5 (5-15); BUN 46 mg/dL (7-18); Calcium,Total 8.7 mg/dL (8.5-10.1); Chloride 103 mmol/L (98-107); Glucose 191 mg/dL (74-106); Potassium 5.7 mmol/L (3.5-5.1); Sodium Level 135 mmol/L (136-145)
[2022-02-08] MEDS: Pioglitazone Hydrochloride 30 MG Tablet PO (07:58)
[2022-02-08] MEDS: Ferrous Sulfate 325 MG Tablet PO (07:58)
[2022-02-08] MEDS: Aspirin 81 MG TAB.CHEW PO (07:58)
[2022-02-08 10:00] VITALS: PULSE 80; RESP 18; O2SAT 96
[2022-02-08] MEDS: Tuberculin,Purif.prot.deriv. 50 TU/ML Vial 0.1 ML ID (11:01)
[2022-02-08] MEDS: Sodium Polystyrene Sulfonate 15 GM/60 ML UDC 30 GM PO (11:01)
--- NOTE | 2022-02-08 11:28 | CASEMGMT ---
Addendum entered by Adelia Armijo 02/08/22 15:48: Dtr returned call. Pt and family spoke and are electing SNF private pay. Provided rates for TCU and other SNFs. Dtr states she can afford a SNF. Encouraged to choose SNFs in network with insurance for part B therapies and once she is skillable again. Provided in-network list with Medicare data to pt in room. Dtr appreciative and will notify SW of choices. SW to continue to follow. Original Note: Social Work Left message with dtr to follow up on DC planning. Will await return phone call. BERE AlbarranW
[2022-02-08 14:10] VITALS: BP 152/67; PULSE 75; RESP 18; TEMP 36.3; O2SAT 94
[2022-02-08 15:30] VITALS: O2SAT 94
[2022-02-08 15:31] LABS: BUN/Creat Ratio 49.5 RATIO (10-20); Creatinine, Serum 0.93 mg/dL (0.55-1.02); EST Glomerular Filtration Rate 62 mL/min (>60); Est Glom Filt Rate - Afr Amer 75 mL/min (>60); Estimated Creatinine Clearance 50.83 ml/min
[2022-02-08] MEDS: Bisoprolol Fumarate 5 MG Tablet PO (17:16)
[2022-02-08] MEDS: Montelukast 10 MG Tablet PO (21:25)
[2022-02-08] MEDS: Atorvastatin Calcium 10 MG Tablet PO (21:26)
[2022-02-08] MEDS: traZODone 50 MG Tablet 150 MG PO (21:26)
[2022-02-09 00:36] LABS: Bedside Glucose 196 mg/dL (74-106)
[2022-02-09 05:59] LABS: Anion Gap 4 (5-15); BUN 45 mg/dL (7-18); BUN/Creat Ratio 26.9 RATIO (10-20); Calcium,Total 8.4 mg/dL (8.5-10.1); Chloride 104 mmol/L (98-107); Creatinine, Serum 1.67 mg/dL (0.55-1.02); EST Glomerular Filtration Rate 32 mL/min (>60); Est Glom Filt Rate - Afr Amer 38 mL/min (>60); Estimated Creatinine Clearance 28.31 ml/min; Glucose 215 mg/dL (74-106); Sodium Level 136 mmol/L (136-145)
[2022-02-09] MEDS: Enoxaparin 30 MG/0.3 ML Syringe SC (06:12)
[2022-02-09] MEDS: Cholecalciferol (Vit D3) 125 MCG CAPSULE (5,000 UNITS) PO (06:13)
[2022-02-09] MEDS: Loratadine 10 MG Tablet PO (06:13)
[2022-02-09] MEDS: buPROPion (SR) 150 MG Tablet.SA PO ×2 (06:13→17:17)
[2022-02-09] MEDS: Cyanocobalamin 500 MCG Tablet 1000 MCG PO (06:13)
[2022-02-09] MEDS: Venlafaxine XR 150 MG Capsule PO (06:13)
[2022-02-09] MEDS: Senna/Docusate Sodium 1 Tablet PO (06:13)
[2022-02-09] MEDS: Pantoprazole Sodium 40 MG Tablet PO (06:13)
[2022-02-09] MEDS: Polyethylene Glycol 3350 17 GM PACKET PO (06:14)
[2022-02-09] MEDS: Nystatin Powder 15gm Bottle 1 APPLIC TOPICAL (06:14)
[2022-02-09] MEDS: Fluticasone/Salmeterol 232-14 Inhaler 1 PUFF INHALATION ×2 (06:15→17:16)
[2022-02-09] MEDS: Umeclidinium Bromide Inhaler 1 PUFF INHALATION (06:15)
[2022-02-09] MEDS: Losartan Potassium 25 MG Tablet PO (06:16)
[2022-02-09 06:21] LABS: Bedside Glucose 205 mg/dL (74-106)
[2022-02-09] MEDS: Pioglitazone Hydrochloride 30 MG Tablet PO (09:14)
[2022-02-09] MEDS: Ferrous Sulfate 325 MG Tablet PO (09:14)
[2022-02-09] MEDS: Aspirin 81 MG TAB.CHEW PO (09:14)
[2022-02-09 16:00] VITALS: BP 168/70; PULSE 79; RESP 16; TEMP 36.4; O2SAT 93
[2022-02-09] MEDS: Bisoprolol Fumarate 5 MG Tablet PO (17:17)
[2022-02-09] MEDS: traZODone 50 MG Tablet 150 MG PO (21:16)
[2022-02-09] MEDS: Atorvastatin Calcium 10 MG Tablet PO (21:16)
[2022-02-09] MEDS: Montelukast 10 MG Tablet PO (21:16)
[2022-02-09] MEDS: HYDROcodone Bitartrate/Apap 5/325 Tablet PO (21:17)
[2022-02-09 21:21] LABS: Bedside Glucose 214 mg/dL (74-106)
[2022-02-10] MEDS: Fluticasone/Salmeterol 232-14 Inhaler 1 PUFF INHALATION ×2 (05:52→16:55)
[2022-02-10] MEDS: Polyethylene Glycol 3350 17 GM PACKET PO (05:52)
[2022-02-10] MEDS: Umeclidinium Bromide Inhaler 1 PUFF INHALATION (05:52)
[2022-02-10] MEDS: Cholecalciferol (Vit D3) 125 MCG CAPSULE (5,000 UNITS) PO (05:53)
[2022-02-10] MEDS: Venlafaxine XR 150 MG Capsule PO (05:53)
[2022-02-10] MEDS: Losartan Potassium 25 MG Tablet PO (05:54)
[2022-02-10] MEDS: Loratadine 10 MG Tablet PO (05:54)
[2022-02-10] MEDS: Enoxaparin 30 MG/0.3 ML Syringe SC (05:54)
[2022-02-10] MEDS: buPROPion (SR) 150 MG Tablet.SA PO ×2 (05:55→16:55)
[2022-02-10] MEDS: Pantoprazole Sodium 40 MG Tablet PO (05:55)
[2022-02-10] MEDS: Senna/Docusate Sodium 1 Tablet PO ×2 (05:55→16:55)
[2022-02-10] MEDS: Cyanocobalamin 500 MCG Tablet 1000 MCG PO (05:56)
[2022-02-10 06:01] VITALS: BP 148/61; PULSE 74
[2022-02-10 06:20] LABS: Bedside Glucose 159 mg/dL (74-106)
[2022-02-10] MEDS: Aspirin 81 MG TAB.CHEW PO (08:05)
[2022-02-10] MEDS: Ferrous Sulfate 325 MG Tablet PO (08:05)
[2022-02-10] MEDS: Pioglitazone Hydrochloride 30 MG Tablet PO (08:05)
[2022-02-10 08:10] LABS: Anion Gap 4 (5-15); BUN 36 mg/dL (7-18); BUN/Creat Ratio 22.6 RATIO (10-20); Calcium,Total 8.3 mg/dL (8.5-10.1); Chloride 103 mmol/L (98-107); Creatinine, Serum 1.59 mg/dL (0.55-1.02); EST Glomerular Filtration Rate 34 mL/min (>60); Est Glom Filt Rate - Afr Amer 41 mL/min (>60); Estimated Creatinine Clearance 29.73 ml/min; Glucose 190 mg/dL (74-106); Potassium 4.7 mmol/L (3.5-5.1); Sodium Level 137 mmol/L (136-145)
[2022-02-10 14:53] VITALS: PULSE 77; RESP 16; O2SAT 96
[2022-02-10 15:01] VITALS: BP 137/62; PULSE 76; RESP 187; TEMP 36.3; O2SAT 96
[2022-02-10] MEDS: Bisoprolol Fumarate 5 MG Tablet PO (17:20)
[2022-02-10 21:26] LABS: Bedside Glucose 195 mg/dL (74-106)
[2022-02-10] MEDS: Montelukast 10 MG Tablet PO (21:48)
[2022-02-10] MEDS: traZODone 50 MG Tablet 150 MG PO (21:48)
[2022-02-10] MEDS: Atorvastatin Calcium 10 MG Tablet PO (21:49)
[2022-02-11] MEDS: Fluticasone/Salmeterol 232-14 Inhaler 1 PUFF INHALATION ×2 (05:55→17:15)
[2022-02-11] MEDS: Umeclidinium Bromide Inhaler 1 PUFF INHALATION (05:55)
[2022-02-11] MEDS: Enoxaparin 30 MG/0.3 ML Syringe SC (05:55)
[2022-02-11] MEDS: Polyethylene Glycol 3350 17 GM PACKET PO (05:56)
[2022-02-11] MEDS: Cholecalciferol (Vit D3) 125 MCG CAPSULE (5,000 UNITS) PO (05:57)
[2022-02-11] MEDS: buPROPion (SR) 150 MG Tablet.SA PO ×2 (05:57→17:15)
[2022-02-11] MEDS: Losartan Potassium 25 MG Tablet PO (05:57)
[2022-02-11] MEDS: Pantoprazole Sodium 40 MG Tablet PO (05:57)
[2022-02-11] MEDS: Loratadine 10 MG Tablet PO (05:57)
[2022-02-11] MEDS: Venlafaxine XR 150 MG Capsule PO (05:57)
[2022-02-11] MEDS: Senna/Docusate Sodium 1 Tablet PO ×2 (05:57→17:15)
[2022-02-11] MEDS: Cyanocobalamin 500 MCG Tablet 1000 MCG PO (05:58)
[2022-02-11 06:02] VITALS: BP 148/56; PULSE 83
[2022-02-11 06:20] LABS: Bedside Glucose 171 mg/dL (74-106)
[2022-02-11] MEDS: Aspirin 81 MG TAB.CHEW PO (08:13)
[2022-02-11] MEDS: Pioglitazone Hydrochloride 30 MG Tablet PO (08:13)
[2022-02-11] MEDS: Ferrous Sulfate 325 MG Tablet PO (08:14)
[2022-02-11 14:56] VITALS: BP 153/73; PULSE 78; RESP 16; TEMP 36.4; O2SAT 96
[2022-02-11] MEDS: Bisoprolol Fumarate 5 MG Tablet PO (17:15)
[2022-02-11 19:39] VITALS: PULSE 78; RESP 18
[2022-02-11 21:15] LABS: Bedside Glucose 195 mg/dL (74-106)
[2022-02-11] MEDS: Atorvastatin Calcium 10 MG Tablet PO (21:58)
[2022-02-11] MEDS: Montelukast 10 MG Tablet PO (21:58)
[2022-02-11] MEDS: traZODone 50 MG Tablet 150 MG PO (21:58)
[2022-02-12] MEDS: Loratadine 10 MG Tablet PO (06:24)
[2022-02-12] MEDS: Polyethylene Glycol 3350 17 GM PACKET PO (06:24)
[2022-02-12] MEDS: Losartan Potassium 25 MG Tablet PO (06:24)
[2022-02-12] MEDS: Enoxaparin 30 MG/0.3 ML Syringe SC (06:24)
[2022-02-12 06:25] LABS: Bedside Glucose 193 mg/dL (74-106)
[2022-02-12] MEDS: Cyanocobalamin 500 MCG Tablet 1000 MCG PO (06:25)
[2022-02-12] MEDS: Cholecalciferol (Vit D3) 125 MCG CAPSULE (5,000 UNITS) PO (06:25)
[2022-02-12] MEDS: Pantoprazole Sodium 40 MG Tablet PO (06:25)
[2022-02-12] MEDS: Venlafaxine XR 150 MG Capsule PO (06:25)
[2022-02-12] MEDS: Senna/Docusate Sodium 1 Tablet PO ×2 (06:25→17:40)
[2022-02-12] MEDS: buPROPion (SR) 150 MG Tablet.SA PO ×2 (06:25→17:40)
[2022-02-12] MEDS: Fluticasone/Salmeterol 232-14 Inhaler 1 PUFF INHALATION ×2 (06:26→17:39)
[2022-02-12] MEDS: Umeclidinium Bromide Inhaler 1 PUFF INHALATION (06:30)
[2022-02-12] MEDS: Ferrous Sulfate 325 MG Tablet PO (08:55)
[2022-02-12] MEDS: Aspirin 81 MG TAB.CHEW PO (08:55)
[2022-02-12] MEDS: Pioglitazone Hydrochloride 30 MG Tablet PO (08:55)
[2022-02-12 11:16] VITALS: O2SAT 3
[2022-02-12 15:49] VITALS: BP 142/69; PULSE 78; RESP 16; TEMP 36.6; O2SAT 94
--- NOTE | 2022-02-12 16:40 | CASEMGMT ---
Social Work Contacted dtr to follow up on SNFs. Dtr requested referrals to [facility] and [place]. Referrals made. SW to continue to follow. Adelia Armijo, INSULATION BLOWER TECH BRAZER TESTER
[2022-02-12] MEDS: Bisoprolol Fumarate 5 MG Tablet PO (17:41)
[2022-02-12 17:42] VITALS: BP 128/65
[2022-02-12 17:45] VITALS: O2SAT 94
[2022-02-12] MEDS: traZODone 50 MG Tablet 150 MG PO (21:12)
[2022-02-12] MEDS: Atorvastatin Calcium 10 MG Tablet PO (21:12)
[2022-02-12] MEDS: Montelukast 10 MG Tablet PO (21:13)
[2022-02-12 21:20] LABS: Bedside Glucose 175 mg/dL (74-106)
[2022-02-13] MEDS: Enoxaparin 30 MG/0.3 ML Syringe SC (06:10)
[2022-02-13] MEDS: Umeclidinium Bromide Inhaler 1 PUFF INHALATION (06:10)
[2022-02-13] MEDS: Loratadine 10 MG Tablet PO (06:13)
[2022-02-13] MEDS: buPROPion (SR) 150 MG Tablet.SA PO ×2 (06:13→18:20)
[2022-02-13] MEDS: Cholecalciferol (Vit D3) 125 MCG CAPSULE (5,000 UNITS) PO (06:13)
[2022-02-13] MEDS: Pantoprazole Sodium 40 MG Tablet PO (06:13)
[2022-02-13] MEDS: Losartan Potassium 25 MG Tablet PO (06:13)
[2022-02-13] MEDS: Polyethylene Glycol 3350 17 GM PACKET PO (06:13)
[2022-02-13] MEDS: Venlafaxine XR 150 MG Capsule PO (06:13)
[2022-02-13] MEDS: Cyanocobalamin 500 MCG Tablet 1000 MCG PO (06:14)
[2022-02-13] MEDS: Senna/Docusate Sodium 1 Tablet PO ×2 (06:14→18:20)
[2022-02-13] MEDS: Fluticasone/Salmeterol 232-14 Inhaler 1 PUFF INHALATION ×2 (06:16→18:19)
[2022-02-13 06:18] VITALS: BP 145/73; PULSE 75
[2022-02-13 07:50] LABS: Bedside Glucose 175 mg/dL (74-106)
[2022-02-13 07:50] LABS: Bedside Glucose 173 mg/dL (74-106)
[2022-02-13 08:00] VITALS: O2SAT 95
[2022-02-13] MEDS: Aspirin 81 MG TAB.CHEW PO (08:04)
[2022-02-13] MEDS: Pioglitazone Hydrochloride 30 MG Tablet PO (08:04)
[2022-02-13] MEDS: Ferrous Sulfate 325 MG Tablet PO (08:04)
--- NOTE | 2022-02-13 10:27 | NURSING ---
Framing Machine Tender Note: Interview and section F of MDS complete.
--- NOTE | 2022-02-13 12:26 | MDS.RN ---
Information for the mds was obtained from review of the clinical record, interview of resident, staff, and direct observation of resident's care.
--- NOTE | 2022-02-13 15:33 | CASEMGMT ---
Social Work [facility] is not in-network with [facility] and pt does not have any OON benefits. [facility] can accept pt with 30 days private pay upfront. Contacted dtr to update on above. Dtr and (in background of phone call) agreeable to pricing and placement. Dtr requesting Received notification that insurance issued LCD 02/15, DC 02/16. Notified [facility] and dtr. Both agreeable. Scheduled w/c transport through [facility] at 11 AM. PASRR completed. Plan: DC to [facility], nonskilled, Part B therapies 02/16 BERE AlbarranW
[2022-02-13 15:34] VITALS: BP 164/71; PULSE 79; RESP 18; TEMP 36.8; O2SAT 95
--- NOTE | 2022-02-13 17:23 | CASEMGMT ---
Social Work Completed HCPOA with pt. Pt named, carmel Alex, as HCPOA. Original and copy provided to pt. Copies placed on chart. Adelia Armijo, SUPERVISOR ASSEMBLING CASTING AND PASTING SUPERVISOR
[2022-02-13] MEDS: Bisoprolol Fumarate 5 MG Tablet PO (18:20)
[2022-02-13 18:21] VITALS: BP 157/57
--- NOTE | 2022-02-13 19:48 | PCM.DC.SUM ---
Providers Date of Admission: 01/31/22 Primary Care Physician: Dr. Grady Mckeon, DO Consultations 01/31/22 20:13 Consult: Podiatry Routine Consulting Provider: Todd Crump Reason for Consult: Left ankle fracture s/p ORIF. EMERGENT Consult: No MD Notified: Yes Date Notified: 01/31/22 Time Notified: 20:13 Method of Notification: Answering Service Reason For Visit: L ANKLE FRACTURE Diagnosis Discharge Diagnosis (1) Ankle pain, left: Status: Resolved Code(s): M25.572 - Pain in left ankle and joints of left foot (2) Diabetes mellitus: Status: Acute Code(s): E11.9 - Type 2 diabetes mellitus without complications (3) Chronic obstructive pulmonary disease: Status: Chronic Code(s): J44.9 - Chronic obstructive pulmonary disease, unspecified (4) Chronic kidney disease, stage 3b: Status: Acute Code(s): N18.32 - Chronic kidney disease, stage 3b (5) Debility: Status: Acute Code(s): R53.81 - Other malaise (6) Depression: Status: Acute Code(s): F32.A - Depression, unspecified (7) Hyperlipidemia: Status: Acute Code(s): E78.5 - Hyperlipidemia, unspecified (8) Displaced trimalleolar fracture of left lower leg, subsequent encounter for closed fracture with routine healing: Status: Acute Code(s): S82.852D - Displaced trimalleolar fracture of left lower leg, subsequent encounter for closed fracture with routine healing Medications at Discharge Home Medications aspirin 81 mg PO DAILY@0800 12/27/16 bupropion HCl 150 mg PO BID 12/27/16 cyanocobalamin (vitamin B-12) [Vitamin B-12] 1,000 mg PO DAILY 12/27/16 lovastatin 40 mg PO QHS 12/27/16 montelukast 10 mg PO DAILY 12/27/16 trazodone 150 mg PO QHS 12/27/16 venlafaxine 150 mg PO DAILY 12/27/16 albuterol sulfate [Ventolin HFA] 1 - 2 puff INHALATION Q4H PRN PRN #1 inhaler 12/30/16 Trelegy Ellipta 1 inh INHALATION DAILY 04/19/21 bisoprolol fumarate 5 mg PO DINNER 04/19/21 ferrous sulfate [FeroSul] 325 mg PO DAILY 04/19/21 omeprazole 40 mg PO DAILY 04/19/21 loratadine 10 mg PO DAILY 01/26/22 losartan 25 mg PO DAILY 01/26/22 pioglitazone 30 mg PO DAILY@0800 01/26/22 cholecalciferol (vitamin D3) 125 mcg PO DAILY 01/31/22 enoxaparin 30 mg SUBCUT DAILY@0600 01/31/22 Hospital Course Operations - (ORIF left ankle.) Procedures None Summary of Care Provided Minutes Spent on Discharge: 35 Hospital Course: 76 year old female with below past medical history hospitalized for left trimalleolar fracture, underwent ORIF left ankle 01/29/[address] Crump, complicated by acute kidney injury, hyperkalemia, admitted to TCU with debility, here for rehabilitation, strengthening, prior to discharge home with . Discharge to [facility], nonskilled, private pay. Physical Exam Const alert General Appearance: cooperative HEENT normocephalic Eyes PERRL and EOMs intact bilaterally Neck supple, no JVD and no carotid bruits Resp normal respiratory effort, normal air movement and clear to auscultation bilaterally Cardio regular rate and regular rhythm GI normal to inspection, nondistended, normoactive bowel sounds, non-tender and non-distended Extremity normal capillary refill Extremity Narrative: Left lower extremity splint. General Extremity: Negative for edema Skin no rashes or lesions noted General Skin Exam: no breakdown Psych affect normal Appearance: appropriate Weight / BMI Weight Weight: 94.347 kg Body Mass Index (BMI) 32.8 ABG / Lab / Microbiology Data Result Diagrams: 02/08/22 05:10 02/10/22 07:00 Laboratory: Laboratory Results - last 24 hr 02/12/22 21:16: POC Glucose 175 H 02/13/22 06:08: POC Glucose 175 H 02/13/22 06:16: POC Glucose 173 H Microbiology: Microbiology 02/07/22 12:00 Nasal Secretion SARS-CoV-2 Antigen (Rapid) - Final D/C Instructions Discharge Diet: No restrictions Discharge Activity: Return to Normal Activity, May Not Shower and Use Walker Weight Bearing Status: No weight bearing (Left lower extremity.) Call your doctor if you observe: Fever of 101 or Higher, Inability to urinate, Inability to have a bowel movement, Shortness of breath, Dizziness, Fainting spells, Swelling in the ankles, Chest pain and Uncontrolled pain Additional Instructions: Discharge to [facility], nonskilled, private pay. Please Follow Up With: Todd Crump DPM When: As scheduled. Meaningful Use Info Meaningful Use Diagnoses (Choose all that apply): None applicable Discharge Plan Admission Admit Date/Time: 01/31/22 15:07 Primary Reason for Your Visit: Debility. Attending Provider: Manoj Villatoro Chi Primary Care Provider: Grady Mckeon Consulting Providers: Todd Crump Instructions Additional Instructions / Restrictions: Discharge to [facility], nonskilled, private pay. Discharge Orders/Prescriptions Prescriptions: Continued bupropion HCl 150 MG tablet sustained-release 12 hr 150 mg PO BID RF: 0 lovastatin 40 MG tablet 40 mg PO QHS RF: 0 venlafaxine 150 MG capsule,extended release 24hr 150 mg PO DAILY RF: 0 cyanocobalamin (vitamin B-12) [Vitamin B-12] 1,000 MCG tablet 1,000 mg PO DAILY RF: 0 trazodone 150 MG tablet 150 mg PO QHS RF: 0 aspirin 81 MG tablet,chewable 81 mg PO DAILY@0800 RF: 0 montelukast 10 MG tablet 10 mg PO DAILY RF: 0 albuterol sulfate [Ventolin HFA] 1 INHALER inhaler 1 - 2 puff inhalation Q4H PRN PRN (Reason: Sob &/Or Wheezing) Qty: 1 RF: 0 omeprazole 40 mg capsule,delayed release(DR/EC) 40 mg PO DAILY RF: 0 bisoprolol fumarate 5 mg tablet 5 mg PO DINNER RF: 0 ferrous sulfate [FeroSul] 325 mg (65 mg iron) tablet 325 mg PO DAILY RF: 0 Trelegy Ellipta 100-62.5-25 mcg blister with device 1 inh INHALATION DAILY RF: 0 losartan 25 mg tablet 25 mg PO DAILY RF: 0 loratadine 10 mg Tablet 10 mg PO DAILY RF: 0 pioglitazone 30 MG tablet 30 mg PO DAILY@0800 RF: 0 cholecalciferol (vitamin D3) 125 mcg (5,000 unit) capsule 125 mcg PO DAILY RF: 0 enoxaparin 30 mg/0.3 mL syringe 30 mg subcut DAILY@0600 RF: 0 Discontinued glimepiride 2 MG tablet 2 mg PO BID RF: 0 Hydrocodon-Acetaminophen 5-325 tablet 1 tab PO 4X/DAY PRN (Reason: Pain) RF: 0 docusate sodium 100 mg capsule 100 mg PO BID RF: 0 Referrals / Follow Up: Todd Crump DPM [STAFF PHYSICIAN] - Grady Mckeon DO [Primary Care Provider] - Disposition Disposition (needs filled in before D/C Order can be placed): NonSkilled NH/Intermed Care
--- NOTE | 2022-02-13 19:54 | PCM.TXEXTCAR ---
Diet 01/31/22 16:05 Diet: Carbohydrate Controlled Food consistency:: Regular Liquid Consistency:: Regular/Thin Dietary Modifications:: Potassium Restricted Is pt able to select menu?: Yes Routine Orders/Code Status Code Status: DNRCC-A (No intubation.) Wound(s) left ankle frature: Wound Type: Surgical Incision Dressing Change: Changed by MD SIMMONS: Wound Type: small abrasions/scabbed sternum: Wound Type: Abrasion left lateral upper arm: Wound Type: scabbed abrasion Therapies Weight Bearing: Non weight bearing (Left lower extremity.) Problem/Diagnosis (1) Ankle pain, left: Status: Resolved (2) Diabetes mellitus: Status: Acute (3) Chronic obstructive pulmonary disease: Status: Chronic (4) Chronic kidney disease, stage 3b: Status: Acute (5) Debility: Status: Acute (6) Depression: Status: Acute (7) Hyperlipidemia: Status: Acute (8) Displaced trimalleolar fracture of left lower leg, subsequent encounter for closed fracture with routine healing: Status: Acute Allergies/Procedures Done in Hospital Allergies No Known Allergies Allergy (Verified 04/19/21 17:11) Procedures: None Type of Care/Length of Stay Estimated LOS: More Than 30 Days Type of Care Needed: Intermediate Rehab Potential: Good Prognosis: Good Additional Orders/Day of Discharge Additional Orders: part B therapies Day of Discharge: 02/16/22 Dietary and Speech Recommendations Dietitian Recommendations/Changes: Continue CHO controlled diet; will continue potassium restriction per Res request due to history of CKD Follow Up Care Please follow up with your Primary Care Physician in: Grady Mckeon DO Please Follow Up With: Todd Crump DPM When: 2 weeks Discharge Plan Admission Admit Date/Time: 01/31/22 15:07 Primary Reason for Your Visit: Debility. Attending Provider: Manoj Villatoro Chi Primary Care Provider: Grady Mckeon Consulting Providers: Todd Crump Instructions Additional Instructions / Restrictions: Discharge to [facility], nonskilled, private pay. Discharge Orders/Prescriptions Prescriptions: Continued bupropion HCl 150 MG tablet sustained-release 12 hr 150 mg PO BID RF: 0 lovastatin 40 MG tablet 40 mg PO QHS RF: 0 venlafaxine 150 MG capsule,extended release 24hr 150 mg PO DAILY RF: 0 cyanocobalamin (vitamin B-12) [Vitamin B-12] 1,000 MCG tablet 1,000 mg PO DAILY RF: 0 trazodone 150 MG tablet 150 mg PO QHS RF: 0 aspirin 81 MG tablet,chewable 81 mg PO DAILY@0800 RF: 0 montelukast 10 MG tablet 10 mg PO DAILY RF: 0 albuterol sulfate [Ventolin HFA] 1 INHALER inhaler 1 - 2 puff inhalation Q4H PRN PRN (Reason: Sob &/Or Wheezing) Qty: 1 RF: 0 omeprazole 40 mg capsule,delayed release(DR/EC) 40 mg PO DAILY RF: 0 bisoprolol fumarate 5 mg tablet 5 mg PO DINNER RF: 0 ferrous sulfate [FeroSul] 325 mg (65 mg iron) tablet 325 mg PO DAILY RF: 0 Trelegy Ellipta 100-62.5-25 mcg blister with device 1 inh INHALATION DAILY RF: 0 losartan 25 mg tablet 25 mg PO DAILY RF: 0 loratadine 10 mg Tablet 10 mg PO DAILY RF: 0 pioglitazone 30 MG tablet 30 mg PO DAILY@0800 RF: 0 cholecalciferol (vitamin D3) 125 mcg (5,000 unit) capsule 125 mcg PO DAILY RF: 0 enoxaparin 30 mg/0.3 mL syringe 30 mg subcut DAILY@0600 RF: 0 Discontinued glimepiride 2 MG tablet 2 mg PO BID RF: 0 Hydrocodon-Acetaminophen 5-325 tablet 1 tab PO 4X/DAY PRN (Reason: Pain) RF: 0 docusate sodium 100 mg capsule 100 mg PO BID RF: 0 Referrals / Follow Up: Todd Crump DPM [STAFF PHYSICIAN] - Grady Mckeon DO [Primary Care Provider] - Disposition Disposition (needs filled in before D/C Order can be placed): NonSkilled NH/Intermed Care
[2022-02-13] MEDS: traZODone 50 MG Tablet 150 MG PO (21:14)
[2022-02-13] MEDS: Atorvastatin Calcium 10 MG Tablet PO (21:14)
[2022-02-13 21:15] VITALS: PULSE 68; RESP 16; O2SAT 96
[2022-02-13] MEDS: Montelukast 10 MG Tablet PO (21:15)
[2022-02-13 21:56] LABS: Bedside Glucose 178 mg/dL (74-106)
[2022-02-14 05:29] VITALS: BP 137/59; PULSE 74
[2022-02-14] MEDS: Enoxaparin 30 MG/0.3 ML Syringe SC (05:30)
[2022-02-14] MEDS: Fluticasone/Salmeterol 232-14 Inhaler 1 PUFF INHALATION ×2 (05:30→17:39)
[2022-02-14] MEDS: Umeclidinium Bromide Inhaler 1 PUFF INHALATION (05:31)
[2022-02-14] MEDS: Polyethylene Glycol 3350 17 GM PACKET PO (05:32)
[2022-02-14] MEDS: Venlafaxine XR 150 MG Capsule PO (05:33)
[2022-02-14] MEDS: Senna/Docusate Sodium 1 Tablet PO ×2 (05:33→17:39)
[2022-02-14] MEDS: Cyanocobalamin 500 MCG Tablet 1000 MCG PO (05:33)
[2022-02-14] MEDS: Pantoprazole Sodium 40 MG Tablet PO (05:33)
[2022-02-14] MEDS: Loratadine 10 MG Tablet PO (05:33)
[2022-02-14] MEDS: Losartan Potassium 25 MG Tablet PO (05:33)
[2022-02-14] MEDS: Cholecalciferol (Vit D3) 125 MCG CAPSULE (5,000 UNITS) PO (05:34)
[2022-02-14] MEDS: buPROPion (SR) 150 MG Tablet.SA PO ×2 (05:34→17:39)
[2022-02-14 06:30] LABS: Bedside Glucose 150 mg/dL (74-106)
[2022-02-14] MEDS: Pioglitazone Hydrochloride 30 MG Tablet PO (08:08)
[2022-02-14] MEDS: Ferrous Sulfate 325 MG Tablet PO (08:08)
[2022-02-14] MEDS: Aspirin 81 MG TAB.CHEW PO (08:08)
[2022-02-14 10:00] VITALS: PULSE 63; RESP 18; O2SAT 96
--- NOTE | 2022-02-14 13:35 | PCM.PROGNOTE ---
Objective Data Objective Data Vital Signs: Vital Signs Temp Pulse Resp BP Pulse Ox 98.2 F 63 18 137/59 H 96 02/13/22 15:34 02/14/22 10:00 02/14/22 10:00 02/14/22 05:29 02/14/22 10:00 Oxygen Flow Rate (L/min) 3 Oxygen Delivery Method Room Air Weight: 94.347 kg Body Mass Index (BMI) 32.8 Intake & Output: Intake and Output for Last 24 Hours 02/12/22 02/13/22 02/14/22 23:59 23:59 23:59 Intake Total 1200 / 1200 1140 / 1140 1060 / 1060 Balance 1200 / 1200 1140 / 1140 1060 / 1060 Lab / Micro Data Result Diagrams: 02/08/22 05:10 02/10/22 07:00 Labs: Laboratory Results - last 24 hr 02/13/22 21:53: POC Glucose 178 H 02/14/22 06:18: POC Glucose 150 H Micro: Microbiology 02/07/22 12:00 Nasal Secretion SARS-CoV-2 Antigen (Rapid) - Final Physical Exam Const alert, oriented x3 and no apparent distress General Appearance: cooperative and comfortable HEENT normocephalic Eyes General Eye: normal appearance of both eyes Neck General: normal visual inspection Lymph Lymphatic: no lymphadenopathy noted and no lymphedema noted Resp normal respiratory effort Cardio regular rate and regular rhythm Extremity General Extremity: Negative for calf tenderness Skin no rashes or lesions noted and no jaundice Skin Narrative: Sutures intact at medial and lateral ankle surgical wounds well coapted with no localized signs of infection. Slight nonpitting edema to the dorsal aspect of the foot and rani-ankle. Neuro oriented x3 and moves all extremities Assessment & Plan Assessment/Plan (1) Ankle pain, left: (2) Diabetes mellitus: (3) Chronic obstructive pulmonary disease: (4) Chronic kidney disease, stage 3b: (5) Debility: (6) Depression: (7) Hyperlipidemia: (8) Displaced trimalleolar fracture of left lower leg, subsequent encounter for closed fracture with routine healing: PLAN: This is a 79-year-old female who is status post ORIF of the left ankle performed on 01/29/[address] Crump. POD# 16. She is admitted to TCU for rehabilitation prior to discharge home. Patient seen and evaluated Incision site inspected sutures intact and incision site well coapted. No localized signs of infection. No cramping in the calf muscle or shortness of breath. Surgical site of the left lower extremity demonstrates minimal edema and is progressing well in her healing progress. She is to continue to elevate the lower extremities for edema control and apply a pillow under her left leg. She is to keep her dressings clean dry and intact. She is to remain nonweightbearing to her left lower extremity with assistance of a walker for ambulation and transfer to bed. Dr. Villatoro is following for medical management, this is greatly appreciated. Patient tolerating physical therapy well, edema improving, will plan for suture removal upon dc in 1 week. Podiatry will continue to follow during her postoperative period. When she is ready for discharge home she will follow-up in office with Dr. Crump for continued postsurgical care. Please call for any questions Jr. Josselyn Jasmine.P.M. [facility] [phone] Note: [employer] speech recognition groundwater programs director software was used to create portions of this document. Sound-alike and misspelled words, as well as other groundwater programs director errors may be contained in the documentation.
--- NOTE | 2022-02-14 13:36 | CASEMGMT ---
Social Work BIMS and PHQ-9 completed for MDS assessment. Adelia Armijo, SLITTER SCORER CUT OFF OPERATOR EXPERT WITNESS
[2022-02-14 14:49] VITALS: BP 147/68; PULSE 77; RESP 14; TEMP 36.4; O2SAT 96
[2022-02-14] MEDS: Bisoprolol Fumarate 5 MG Tablet PO (17:39)
[2022-02-14 21:26] LABS: Bedside Glucose 208 mg/dL (74-106)
[2022-02-14] MEDS: Montelukast 10 MG Tablet PO (21:46)
[2022-02-14] MEDS: traZODone 50 MG Tablet 150 MG PO (21:47)
[2022-02-14] MEDS: Atorvastatin Calcium 10 MG Tablet PO (21:47)
[2022-02-15 05:39] LABS: Absolute Lymphocyte Count 1.11 X10^3/uL (0.83-4.51); Absolute Neutrophil Count 5.1 X10^3/uL (2.0-7.7); Basophil# 0.03 X10^3/uL; Basophil% 0.4 % (0-1); Eosinophils% 2.7 % (0-5); Hematocrit 28.4 % (37-47); Hemoglobin 8.6 g/dL (12.0-15.0); Lymphocyte # 1.11 X10^3/ul (0.83-4.51); Lymphocyte % 15.2 % (19-41); Mean Corp Hgb Conc 30.3 g/dL (32-36); Mean Corpuscular Hgb 30.3 pg (27.0-32.0); NRBC Flagged by Analyzer 0 % (0-5); Neutrophil # 5.08 X10^3/uL (2.7-7.7); Neutrophil % 69.7 % (47-70); Platelet Count 309 K/mm3 (150-450); RBC Distribution Width CV 13.2 % (11.6-14.6); RBC Distribution Width SD 48.4 fl (35.1-43.9); Red Blood Count 2.84 M/mm3 (4.2-5.4); White Blood Count 7.3 K/mm3 (4.4-11.0)
[2022-02-15] MEDS: Polyethylene Glycol 3350 17 GM PACKET PO (05:58)
[2022-02-15] MEDS: Fluticasone/Salmeterol 232-14 Inhaler 1 PUFF INHALATION ×2 (05:58→16:32)
[2022-02-15] MEDS: Losartan Potassium 25 MG Tablet PO (05:58)
[2022-02-15] MEDS: Loratadine 10 MG Tablet PO (05:58)
[2022-02-15] MEDS: Enoxaparin 30 MG/0.3 ML Syringe SC (05:58)
[2022-02-15] MEDS: Umeclidinium Bromide Inhaler 1 PUFF INHALATION (05:58)
[2022-02-15] MEDS: buPROPion (SR) 150 MG Tablet.SA PO ×2 (05:58→16:32)
[2022-02-15] MEDS: Cyanocobalamin 500 MCG Tablet 1000 MCG PO (05:59)
[2022-02-15] MEDS: Pantoprazole Sodium 40 MG Tablet PO (05:59)
[2022-02-15] MEDS: Venlafaxine XR 150 MG Capsule PO (05:59)
[2022-02-15] MEDS: Cholecalciferol (Vit D3) 125 MCG CAPSULE (5,000 UNITS) PO (05:59)
[2022-02-15] MEDS: Senna/Docusate Sodium 1 Tablet PO ×2 (05:59→16:32)
[2022-02-15 06:07] LABS: Anion Gap 4 (5-15); BUN 33 mg/dL (7-18); BUN/Creat Ratio 19.6 RATIO (10-20); Calcium,Total 8.2 mg/dL (8.5-10.1); Chloride 103 mmol/L (98-107); Creatinine, Serum 1.68 mg/dL (0.55-1.02); EST Glomerular Filtration Rate 32 mL/min (>60); Est Glom Filt Rate - Afr Amer 38 mL/min (>60); Estimated Creatinine Clearance 28.14 ml/min; Glucose 165 mg/dL (74-106); Sodium Level 136 mmol/L (136-145)
[2022-02-15] MEDS: Ferrous Sulfate 325 MG Tablet PO (08:48)
[2022-02-15] MEDS: Pioglitazone Hydrochloride 30 MG Tablet PO (08:48)
[2022-02-15] MEDS: Aspirin 81 MG TAB.CHEW PO (08:48)
[2022-02-15 14:04] VITALS: O2SAT 96
[2022-02-15 16:00] VITALS: BP 161/70; PULSE 75; RESP 16; TEMP 36.6; O2SAT 94
[2022-02-15] MEDS: Bisoprolol Fumarate 5 MG Tablet PO (16:32)
[2022-02-15 21:25] LABS: Bedside Glucose 163 mg/dL (74-106)
[2022-02-15] MEDS: traZODone 50 MG Tablet 150 MG PO (21:35)
[2022-02-15] MEDS: Montelukast 10 MG Tablet PO (21:35)
[2022-02-15] MEDS: Atorvastatin Calcium 10 MG Tablet PO (21:35)
[2022-02-15 22:58] VITALS: PULSE 85; RESP 18; O2SAT 98
[2022-02-16] MEDS: Umeclidinium Bromide Inhaler 1 PUFF INHALATION (06:10)
[2022-02-16] MEDS: Fluticasone/Salmeterol 232-14 Inhaler 1 PUFF INHALATION (06:10)
[2022-02-16] MEDS: Enoxaparin 30 MG/0.3 ML Syringe SC (06:13)
[2022-02-16] MEDS: Senna/Docusate Sodium 1 Tablet PO (06:13)
[2022-02-16] MEDS: Polyethylene Glycol 3350 17 GM PACKET PO (06:13)
[2022-02-16] MEDS: Losartan Potassium 25 MG Tablet PO (06:14)
[2022-02-16] MEDS: buPROPion (SR) 150 MG Tablet.SA PO (06:14)
[2022-02-16] MEDS: Loratadine 10 MG Tablet PO (06:14)
[2022-02-16] MEDS: Pantoprazole Sodium 40 MG Tablet PO (06:14)
[2022-02-16] MEDS: Cyanocobalamin 500 MCG Tablet 1000 MCG PO (06:14)
[2022-02-16] MEDS: Venlafaxine XR 150 MG Capsule PO (06:14)
[2022-02-16] MEDS: Cholecalciferol (Vit D3) 125 MCG CAPSULE (5,000 UNITS) PO (06:14)
[2022-02-16 06:16] LABS: Bedside Glucose 197 mg/dL (74-106)
[2022-02-16 07:04] VITALS: PULSE 73; RESP 18; O2SAT 93
[2022-02-16 07:09] VITALS: BP 143/59; PULSE 73; RESP 18; TEMP 36.9; O2SAT 93
[2022-02-16] MEDS: Pioglitazone Hydrochloride 30 MG Tablet PO (07:42)
[2022-02-16] MEDS: Ferrous Sulfate 325 MG Tablet PO (07:42)
[2022-02-16] MEDS: Aspirin 81 MG TAB.CHEW PO (07:42)
== END 2022-02-16 11:00 | disposition intermediate care facility (04) | DRG 561 ==
PROVIDERS: Admitting Provider Family Medicine Geriatric Medicine; PCP Preventive Medicine Occupational Medicine; Visit Provider Family Medicine Geriatric Medicine
DX: S82.852D Displaced trimalleolar fracture of left lower leg, subsequent encounter for closed fracture with routine healing (principal); E11.22 Type 2 diabetes mellitus with diabetic chronic kidney disease; D50.9 Iron deficiency anemia, unspecified; E53.8 Deficiency of other specified B group vitamins; E55.9 Vitamin D deficiency, unspecified; J43.9 Emphysema, unspecified; N18.32 Chronic kidney disease, stage 3b; E78.5 Hyperlipidemia, unspecified; I12.9 Hypertensive chronic kidney disease with stage 1 through stage 4 chronic kidney disease, or unspecified chronic kidney disease; K21.9 Gastro-esophageal reflux disease without esophagitis; W17.2XXD Fall into hole, subsequent encounter; F32.A Depression, unspecified; Z87.891 Personal history of nicotine dependence; Z79.82 Long term (current) use of aspirin; Z79.84 Long term (current) use of oral hypoglycemic drugs; Z79.899 Other long term (current) drug therapy; Z23 Encounter for immunization
CPT/HCPCS: 0004A; 36415; 80048; 82947; 82962; 85025; 87426; 91300; 97110; 97116; 97162; 97166; 97530; 97535; 97802

== ENCOUNTER → 2022-05-28 | Outpatient (CLI) | payer MEDICARE, SELFPAY ==
[2022-05-28 09:51] LABS: Hematocrit 41.1 % (37-47); Hemoglobin 12.1 g/dL (12.0-15.0); Mean Corp Hgb Conc 29.4 g/dL (32-36); Mean Platelet Vol. 11.1 fl (6.2-12.0); Platelet Count 190 K/mm3 (150-450); RBC Distribution Width CV 14.5 % (11.6-14.6); RBC Distribution Width SD 54.4 fl (35.1-43.9); Red Blood Count 4.03 M/mm3 (4.2-5.4); White Blood Count 8.1 K/mm3 (4.4-11.0)
[2022-05-28 10:21] LABS: PTHIN 198.8 pg/mL (18.4-80.1)
[2022-05-28 10:36] LABS: Albumin, Serum 3.1 g/dL (3.2-5.0); BUN 26 mg/dL (7-18); BUN/Creat Ratio 14.4 RATIO (10-20); Calcium,Total 8.7 mg/dL (8.5-10.1); Chloride 107 mmol/L (98-107); EST Glomerular Filtration Rate 29 mL/min (>60); Est Glom Filt Rate - Afr Amer 35 mL/min (>60); Glucose 113 mg/dL (74-106); Phosphorus 3.7 mg/dL (2.5-4.9); Potassium 5.2 mmol/L (3.5-5.1); Sodium Level 139 mmol/L (136-145)
== END | disposition home or self-care (01) ==
PROVIDERS: PCP Preventive Medicine Occupational Medicine; Visit Provider Internal Medicine Nephrology
DX: N18.4 Chronic kidney disease, stage 4 (severe) (principal)
CPT/HCPCS: 36415; 80069; 83970; 85027

== ENCOUNTER → 2022-06-11 | Outpatient (CLI) | payer MEDICARE, SELFPAY ==
[2022-06-11 11:34] LABS: Anion Gap 8 (5-15); BUN 27 mg/dL (7-18); BUN/Creat Ratio 15.1 RATIO (10-20); Calcium,Total 8.9 mg/dL (8.5-10.1); Chloride 104 mmol/L (98-107); Creatinine, Serum 1.79 mg/dL (0.55-1.02); EST Glomerular Filtration Rate 29 mL/min (>60); Est Glom Filt Rate - Afr Amer 35 mL/min (>60); Glucose 120 mg/dL (74-106); Potassium 5.5 mmol/L (3.5-5.1); Sodium Level 137 mmol/L (136-145)
== END | disposition home or self-care (01) ==
LOC: LAB 08:37
PROVIDERS: PCP Preventive Medicine Occupational Medicine; Visit Provider Internal Medicine Nephrology
DX: N18.4 Chronic kidney disease, stage 4 (severe) (principal); E78.2 Mixed hyperlipidemia
CPT/HCPCS: 36415; 80048

== ENCOUNTER → 2022-09-10 | Outpatient (CLI) | payer MEDICARE, SELFPAY ==
[2022-09-10 09:45] LABS: Hematocrit 36.1 % (37-47); Mean Corp Hgb Conc 30.5 g/dL (32-36); Mean Corpuscular Hgb 31.1 pg (27.0-32.0); Mean Platelet Vol. 10.4 fl (6.2-12.0); Platelet Count 178 K/mm3 (150-450); RBC Distribution Width CV 15.3 % (11.6-14.6); RBC Distribution Width SD 57.9 fl (35.1-43.9); Red Blood Count 3.54 M/mm3 (4.2-5.4); White Blood Count 8.1 K/mm3 (4.4-11.0)
[2022-09-10 09:49] LABS: Protein, Urine (Random) 58.5 mg/dL (<11.9); Protein:Creat Ratio 2191 mg/g CRE (0-200)
[2022-09-10 10:08] LABS: PTHIN 275.1 pg/mL (18.4-80.1)
[2022-09-10 10:14] LABS: BUN 34 mg/dL (7-18); BUN/Creat Ratio 18.6 RATIO (10-20); Calcium,Total 8.5 mg/dL (8.5-10.1); Chloride 107 mmol/L (98-107); Creatinine, Serum 1.83 mg/dL (0.55-1.02); EST Glomerular Filtration Rate 29 mL/min (>60); Est Glom Filt Rate - Afr Amer 35 mL/min (>60); Glucose 112 mg/dL (74-106); Phosphorus 4.4 mg/dL (2.5-4.9); Potassium 5.6 mmol/L (3.5-5.1); Sodium Level 138 mmol/L (136-145)
== END | disposition home or self-care (01) ==
PROVIDERS: PCP Preventive Medicine Occupational Medicine; Referring Provider Internal Medicine Nephrology; Visit Provider Internal Medicine Nephrology
DX: N25.81 Secondary hyperparathyroidism of renal origin (principal); E11.22 Type 2 diabetes mellitus with diabetic chronic kidney disease; N18.4 Chronic kidney disease, stage 4 (severe); D50.9 Iron deficiency anemia, unspecified
CPT/HCPCS: 36415; 80069; 82570; 83970; 84156; 85027

== ENCOUNTER → 2022-09-17 | Outpatient (CLI) | payer MEDICARE, SELFPAY ==
[2022-09-17 13:37] LABS: Anion Gap 3 (5-15); BUN 29 mg/dL (7-18); BUN/Creat Ratio 15.7 RATIO (10-20); Calcium,Total 8.6 mg/dL (8.5-10.1); Chloride 107 mmol/L (98-107); Creatinine, Serum 1.85 mg/dL (0.55-1.02); EST Glomerular Filtration Rate 28 mL/min (>60); Est Glom Filt Rate - Afr Amer 34 mL/min (>60); Glucose 228 mg/dL (74-106); Potassium 4.2 mmol/L (3.5-5.1); Sodium Level 138 mmol/L (136-145)
== END | disposition home or self-care (01) ==
LOC: POLAB3 11:15
PROVIDERS: PCP Preventive Medicine Occupational Medicine; Visit Provider Internal Medicine Nephrology
DX: E11.22 Type 2 diabetes mellitus with diabetic chronic kidney disease (principal); N18.4 Chronic kidney disease, stage 4 (severe)
CPT/HCPCS: 36415; 80048

== ENCOUNTER → 2022-10-21 | Outpatient (CLI) | payer MEDICARE, SELFPAY ==
--- NOTE | 2022-10-21 13:54 | CT_ITS ---
STUDY: LOW DOSE CT LUNG CANCER SCREENING REASON FOR EXAM: Female, 77 years old. 2 1/2 pack per day smoker x20-25 years, nonsmoker x15-16 years RADIATION DOSAGE (If Supplied By Facility): CTDIvol = ( 3.02 ) mGy, DLP = ( 106.46 ) mGy TECHNIQUE: No contrast was administered. Low dose technique was utilized (average mAS-38 and kVp 120). 1.25 mm axial source images with a slice interval of 1.25-mm were reconstructed in lung windows. 2.5 mm axial source images with a slice interval of 2.5-mm were reconstructed in lung windows. 5.0 mm axial source images with a slice interval of 5.0-mm were reconstructed in soft tissue windows. COMPARISON: None. FINDINGS: Lung windows show underlying emphysema with bleb formation throughout both lung magaña. Chronic interstitial changes noted in both lung magaña with evidence of chronic bronchitis and pleural thickening. No organized infiltrate or suspicious noncalcified mass or nodule. Soft tissue windows show normal-appearing thyroid gland. There are borderline enlarged mediastinal lymph nodes measuring up to 1.21 cm in short axis dimension. No pleural or pericardial effusions, there are calcified coronary vessels. Bony structures show degenerative change. Limited cuts through the upper abdomen do not show suspicious abnormality CT/Low Dose CT Lung Screening IMPRESSION: Lung-RADS category 2 - Continue annual screening with LDCT in 12 months. IMPORTANT NOTES FOR USE: ACR Lung-RADS Version 1.1 Assessment Categories Release Date: 2018 Category: Coded 0-4 bases on nodule(s) with highest degree of suspicion. Negative screen is defined as categories 1 and 2; a positive screen is defined as categories 3 and 4. Category 3 and 4A nodules that are unchanged on interval CT should be coded as category 2, and individuals returned to screening in 12 months. Category 4X: Category 3 or 4 nodules with additional imaging findings that increase the suspicion of lung cancer, such as spiculation, GG that doubles in size in 1 year, enlarged lymph notes, etc. Category Modifiers: S (significant finding unrelated to lung cancer) Electronically Signed: Max Rubio MD at 14:32 EST Reading Location ID and State: [facility] / [place] , Service support ,
== END | disposition home or self-care (01) ==
LOC: CT 13:52
PROVIDERS: PCP Preventive Medicine Occupational Medicine; Visit Provider Preventive Medicine Occupational Medicine
DX: Z12.2 Encounter for screening for malignant neoplasm of respiratory organs (principal); F17.210 Nicotine dependence, cigarettes, uncomplicated
CPT/HCPCS: 71271

== ENCOUNTER → 2022-12-30 | Outpatient (CLI) | payer MEDICARE, SELFPAY ==
[2022-12-30 10:55] LABS: Hematocrit 36.9 % (37-47); Hemoglobin 11.2 g/dL (12.0-15.0); Mean Corp Hgb Conc 30.4 g/dL (32-36); Mean Corpuscular Hgb 30.2 pg (27.0-32.0); Mean Corpuscular Volume 99.5 fL (81-99); Mean Platelet Vol. 9.5 fl (6.2-12.0); Platelet Count 343 K/mm3 (150-450); RBC Distribution Width CV 13.1 % (11.6-14.6); RBC Distribution Width SD 47.5 fl (35.1-43.9); Red Blood Count 3.71 M/mm3 (4.2-5.4); White Blood Count 12.1 K/mm3 (4.4-11.0)
[2022-12-30 11:15] LABS: Albumin, Serum 2.6 g/dL (3.2-5.0); BUN 31 mg/dL (7-18); BUN/Creat Ratio 16.5 RATIO (10-20); Chloride 105 mmol/L (98-107); Creatinine, Serum 1.88 mg/dL (0.55-1.02); EST Glomerular Filtration Rate 28 mL/min (>60); Est Glom Filt Rate - Afr Amer 33 mL/min (>60); Glucose 167 mg/dL (74-106); Phosphorus 3.9 mg/dL (2.5-4.9); Potassium 5.4 mmol/L (3.5-5.1); Sodium Level 137 mmol/L (136-145)
== END | disposition home or self-care (01) ==
LOC: LAB 09:53
PROVIDERS: PCP Preventive Medicine Occupational Medicine; Referring Provider Internal Medicine Nephrology; Visit Provider Internal Medicine Nephrology
DX: N18.4 Chronic kidney disease, stage 4 (severe) (principal); D50.9 Iron deficiency anemia, unspecified
CPT/HCPCS: 36415; 80069; 85027

== ENCOUNTER → 2023-01-07 | Outpatient (CLI) | payer MEDICARE, SELFPAY ==
[2023-01-07 13:02] LABS: Potassium 5.3 mmol/L (3.5-5.1)
== END | disposition home or self-care (01) ==
PROVIDERS: PCP Preventive Medicine Occupational Medicine; Referring Provider Internal Medicine Nephrology; Visit Provider Internal Medicine Nephrology
DX: E87.5 Hyperkalemia (principal)
CPT/HCPCS: 36415; 84132

== ENCOUNTER 2023-03-15 11:30 | Emergency (ER) | payer MEDICARE, SELFPAY ==
[2023-03-15 11:31] VITALS: BP 105/90; PULSE 90; RESP 18; TEMP 36.7; O2SAT 82
--- NOTE | 2023-03-15 11:42 | RAD_ITS ---
INDICATION: pain EXAMINATION/TECHNIQUE: X-RAY - LEFT XR Knee Complete 4 Views or More 4 VIEWS COMPARISON: FINDINGS: SOFT TISSUES: No soft tissue swelling or gas. No radiopaque foreign body. BONES/JOINTS: No acute fracture or subluxation.. Normal alignment. There are mild degenerative changes of the medial compartment. No sclerotic or destructive changes observed. RAD/Knee 4 or More Views IMPRESSION: Degenerative changes. Electronically Signed: Rhoda Morrow MD at 12:06 EDT ,
--- NOTE | 2023-03-15 11:44 | EX.ED.DYSGE1 ---
HPI <GENEVA Dukes - Last Filed: 03/15/23 14:47> History of Present Illness Chief Complaint: Lower Extremity Injury Narrative Narrative: 3 days ago patient was walking into her camper and both knees gave out and she landed on bilateral knees. No head injury. She is having persistent left knee pain. She is ambulatory. No weakness numbness or tingling. PFSH <GENEVA Dukes - Last Filed: 03/15/23 14:47> [facility] Medical History (Updated 03/15/23 @ 12:21 by GENEVA Dukes) Anxiety CKD (chronic kidney disease) COPD (chronic obstructive pulmonary disease) Depression Diabetes Diabetes mellitus Emphysema of lung Former smoker Hypertension Hypertension Stroke/cerebrovascular accident Medical History no medical history Home Medications aspirin 81 mg chewable tablet 81 mg PO DAILY@0800 Heart health 12/27/16 [History Last Taken 01/26/22] bupropion HCl 150 mg tablet,12 hr sustained-release 150 mg PO BID mental health 12/27/16 [History Last Taken 01/26/22] cyanocobalamin (vitamin B-12) 1,000 mcg tablet (Vitamin B-12) 1,000 mg PO DAILY supplement 12/27/16 [History Last Taken 01/26/22] lovastatin 40 mg tablet 40 mg PO QHS cholesterol 12/27/16 [History Last Taken 01/25/22] montelukast 10 mg tablet 10 mg PO DAILY allergies 12/27/16 [History Last Taken 01/26/22] trazodone 150 mg tablet 150 mg PO QHS insomnia 12/27/16 [History Last Taken 01/25/22] venlafaxine 150 mg capsule,extended release 24 hr 150 mg PO DAILY depression 12/27/16 [History Last Taken 01/26/22] albuterol sulfate 90 mcg/actuation aerosol inhaler (Ventolin HFA) 1 - 2 puff inhalation Q4H PRN PRN Sob &/Or Wheezing ##1 12/30/16 [Rx Last Taken 01/19/20] bisoprolol fumarate 5 mg tablet 5 mg PO DINNER blood pressure 04/19/21 [History Last Taken 01/25/22] ferrous sulfate 325 mg (65 mg iron) tablet (FeroSul) 325 mg PO DAILY supplement 04/19/21 [History Last Taken 01/26/22] fluticasone fur. 100 mcg-umeclid 62.5 mcg-vilant 25 mcg inhalat.powder (Trelegy Ellipta) 1 inh inhalation DAILY copd 04/19/21 [History Last Taken Unknown] omeprazole 40 mg capsule,delayed release 40 mg PO DAILY GERD 04/19/21 [History Last Taken 01/26/22] loratadine 10 mg tablet 10 mg PO DAILY allergies 01/26/22 [History Last Taken 01/26/22] losartan 25 mg tablet 25 mg PO DAILY hypertension 01/26/22 [History Last Taken 01/26/22] pioglitazone 30 mg tablet 30 mg PO DAILY@0800 diabetes 01/26/22 [History Last Taken 01/26/22] cholecalciferol (vitamin D3) 125 mcg (5,000 unit) capsule 125 mcg PO DAILY Supplement 01/31/22 [History Last Taken Unknown] enoxaparin 30 mg/0.3 mL subcutaneous syringe 30 mg subcut DAILY@0600 Blood thinner 01/31/22 [History Last Taken Unknown] Allergy/AdvReac Type Severity Reaction Status Date / Time No Known Allergies Allergy Verified 03/15/23 11:33 Surgical History Status post open reduction with internal fixation (ORIF) of fracture of ankle Social History (Updated 01/31/22 @ 19:[address] Manoj Villatoro MD) household members: spouse Smoking Status: Former smoker alcohol intake: never substance use type: does not use ROS <GENEVA Dukes - Last Filed: 03/15/23 14:47> ROS ED ROS Narrative Constitutional: Negative for fever, chills, malaise. Neuro: Negative for motor/sensory dysfunction. Skin: Negative for wound. Musc: Positive for left knee pain, swelling, trauma. EXAM <GENEVA Dukes - Last Filed: 03/15/23 14:47> Physical Exam Narrative Exam Narrative: CONST: Patient sitting in no acute distress. EYES: Normal inspection. NECK: Normal inspection. RESP: No respiratory distress, CTAB. CVS: Regular rate and rhythm, no murmur, no gallop. SKIN: Color normal, no rash, warm, dry, intact. EXTREMITIES: Mild left knee effusion and slight tenderness over the lateral joint line. No deformity or crepitus. Patella is midline. No palpable deformity of the quadriceps or patellar tendon. Extension intact. No laxity with anterior posterior drawer or varus or valgus stress. Negative modified Ara's. Normal sensation and 2+ PT pulse. NEURO: Oriented x4. PSYCH: Normal affect. Const Vital Signs: 03/15/23 11:31 Temperature 98.1 F Temperature Source Temporal Pulse Rate 90 Respiratory Rate 18 Blood Pressure 105/90 H Blood Pressure Mean 95 Pulse Ox 82 Oxygen Delivery Method Room Air <Dr. Marilou Brennan DO - Last Filed: 03/15/23 17:02> Physical Exam Const Vital Signs: 03/15/23 11:31 Temperature 98.1 F Temperature Source Temporal Pulse Rate 90 Respiratory Rate 18 Blood Pressure 105/90 H Blood Pressure Mean 95 Pulse Ox 82 Oxygen Delivery Method Room Air MDM <GENEVA Dukes - Last Filed: 03/15/23 14:47> [facility] Narrative Medical decision making narrative: Patient had mechanical fall in the left knee. She has a small effusion and lateral joint tenderness. Full range of motion with stable knee. No evidence of ligamentous injury. Neurovascularly intact. X-ray shows no acute findings. She was given an Jorge Luis wrap and is ambulatory. She is on chronic oxycodone and can follow-up with her primary care or orthopedic physician. She was discharged in stable condition. Differential: Knee contusion, osteoarthritis flare, ligamentous or meniscal injury, fracture Radiography Diagnostic Testing: Clinical Impression(s) from Imaging Studies Knee X-Ray 03/15/23 11:42 IMPRESSION: Degenerative changes. Electronically Signed: Rhoda Morrow MD at 12:06 EDT , ED attending interpretation of left knee shows no acute fracture or dislocation, joint space narrowing. <Dr. Marilou Brennan DO - Last Filed: 03/15/23 17:02> [facility] Narrative Medical decision making narrative: Patient had mechanical fall in the left knee. She has a small effusion and lateral joint tenderness. Full range of motion with stable knee. No evidence of ligamentous injury. Neurovascularly intact. X-ray shows no acute findings. She was given an Jorge Luis wrap and is ambulatory. She is on chronic oxycodone and can follow-up with her primary care or orthopedic physician. She was discharged in stable condition. Differential: Knee contusion, osteoarthritis flare, ligamentous or meniscal injury, fracture I have personally performed a face to face assessment of the patient and have reviewed the LIV Note. I performed a substantive portion of the visit including all aspects of the following. My stallworth findings include: History is patient is a 77-year-old female with history of chronic knee pain, chronic pain, osteoporosis and COPD with chronic respiratory failure on 3 L of oxygen at baseline. She presenting with continued left knee pain after a fall 1 week ago. States she fell on both knees after they gave out however her left has continued to hurt. It is worse with ambulation. Of note patient did not come to the hospital with her oxygen so she was hypoxic upon arrival. She was placed back on her nasal cannula and when I checked her O2 it was 99% during my evaluation. Patient was ambulated in the emergency room did not go below 90%. She does not complain of any respiratory symptoms and feels like she is at her baseline. X-ray of the knee is obtained to rule out any occult fracture given her continued pain. X-ray interpreted myself as well as radiology shows degenerative changes but no acute fracture, specifically there is no tibial plateau fracture my evaluation. She does not have a physical exam or significant pain on exam consistent with this either. Patient be given an Jorge Luis wrap and does have an orthopedist that she will follow-up with. She does not recall the name at this time but she does know the address and will contact them. Patient given return precautions. Discharged home in stable condition. Other additions or changes: [None] Radiography Diagnostic Testing: Clinical Impression(s) from Imaging Studies Knee X-Ray 03/15/23 11:42 IMPRESSION: Degenerative changes. Electronically Signed: Rhoda Morrow MD at 12:06 EDT , Discharge Plan Triage Chief Complaint: Lower Extremity Injury ED Midlevel Provider: Carlyn Salmon ED Provider: Marilou Brennan Dx/Rx/DC Orders Clinical Impression: Acute pain of left knee, Osteoarthritis Instructions: ED RICE Prescriptions: No Action bupropion HCl 150 MG tablet sustained-release 12 hr 150 mg PO BID Label Comments: DEPRESSION lovastatin 40 MG tablet 40 mg PO QHS Label Comments: REDUCES CHOLESTEROL venlafaxine 150 MG capsule,extended release 24hr 150 mg PO DAILY Label Comments: MOOD cyanocobalamin (vitamin B-12) [Vitamin B-12] 1,000 MCG tablet 1,000 mg PO DAILY Label Comments: VITAMIN SUPPLEMENT trazodone 150 MG tablet 150 mg PO QHS Label Comments: SLEEP aspirin 81 MG tablet,chewable 81 mg PO DAILY@0800 Label Comments: HEALTH MAINTENANCE montelukast 10 MG tablet 10 mg PO DAILY Label Comments: ALLERGIES albuterol sulfate [Ventolin HFA] 1 INHALER inhaler 1 - 2 puff inhalation Q4H PRN PRN (Reason: Sob &/Or Wheezing) Qty: 1 0RF omeprazole 40 mg capsule,delayed release(DR/EC) 40 mg PO DAILY bisoprolol fumarate 5 mg tablet 5 mg PO DINNER ferrous sulfate [FeroSul] 325 mg (65 mg iron) tablet 325 mg PO DAILY Label Comments: TAKE 1 TABLET EVERY DAY Trelegy Ellipta 100-62.5-25 mcg blister with device 1 inh INHALATION DAILY losartan 25 mg tablet 25 mg PO DAILY Label Comments: Take 1 tablet every day by oral route for 30 days. loratadine 10 mg Tablet 10 mg PO DAILY pioglitazone 30 MG tablet 30 mg PO DAILY@0800 cholecalciferol (vitamin D3) 125 mcg (5,000 unit) capsule 125 mcg PO DAILY enoxaparin 30 mg/0.3 mL syringe 30 mg subcut DAILY@0600 Primary Care Provider: Grady Mckeon Referrals: Grady Mckeon DO [Primary Care Provider] - Activity Restrictions/Additional Instructions: Rest, ice, elevate your leg to decrease swelling. You can keep it compressed with Jorge Luis bandage. Follow-up with your orthopedic doctor and take your pain meds at home. Disposition Disposition: Home, Self Care Discharge Date/Time: 03/15/23 12:46
[2023-03-15 12:25] VITALS: BMI 32.3
[2023-03-15 12:30] VITALS: O2SAT 92
[2023-03-15 12:44] VITALS: BMI 33.3
== END 2023-03-15 12:46 | disposition home or self-care (01) ==
PROVIDERS: Emergency Provider Emergency Medicine; PCP Preventive Medicine Occupational Medicine; Visit Provider Emergency Medicine
DX: M17.12 Unilateral primary osteoarthritis, left knee (principal); J43.9 Emphysema, unspecified; E11.22 Type 2 diabetes mellitus with diabetic chronic kidney disease; J96.10 Chronic respiratory failure, unspecified whether with hypoxia or hypercapnia; G89.29 Other chronic pain; N18.9 Chronic kidney disease, unspecified; I12.9 Hypertensive chronic kidney disease with stage 1 through stage 4 chronic kidney disease, or unspecified chronic kidney disease; Z99.81 Dependence on supplemental oxygen; Z79.82 Long term (current) use of aspirin; Z79.84 Long term (current) use of oral hypoglycemic drugs; Z79.899 Other long term (current) drug therapy; Z86.73 Personal history of transient ischemic attack (TIA), and cerebral infarction without residual deficits; Z87.891 Personal history of nicotine dependence
CPT/HCPCS: 73564; 99282

== ENCOUNTER → 2023-06-30 | Outpatient (CLI) | payer MEDICARE, SELFPAY ==
[2023-06-30 10:32] LABS: Protein, Urine (Random) 81.6 mg/dL (<11.9); Protein:Creat Ratio 2473 mg/g CRE (0-200)
[2023-06-30 10:44] LABS: Albumin, Serum 2.8 g/dL (3.2-5.0); BUN 24 mg/dL (7-18); BUN/Creat Ratio 14.1 RATIO (10-20); Calcium,Total 8.9 mg/dL (8.5-10.1); Chloride 104 mmol/L (98-107); EST Glomerular Filtration Rate 31 mL/min (>60); Est Glom Filt Rate - Afr Amer 38 mL/min (>60); Glucose 132 mg/dL (74-106); Phosphorus 4.1 mg/dL (2.5-4.9); Potassium 4.8 mmol/L (3.5-5.1); Sodium Level 138 mmol/L (136-145)
[2023-06-30 10:45] LABS: PTHIN 268.6 pg/mL (18.4-80.1)
[2023-06-30 10:48] LABS: Vitamin D,25 Hydroxy 30.2 ng/mL
== END | disposition home or self-care (01) ==
LOC: LAB 09:57
PROVIDERS: PCP Preventive Medicine Occupational Medicine; Referring Provider Internal Medicine Nephrology; Visit Provider Internal Medicine Nephrology
DX: E11.22 Type 2 diabetes mellitus with diabetic chronic kidney disease (principal); N18.4 Chronic kidney disease, stage 4 (severe); E21.1 Secondary hyperparathyroidism, not elsewhere classified
CPT/HCPCS: 36415; 80069; 82306; 82570; 83970; 84156

== ENCOUNTER 2023-07-28 19:08 | Inpatient (IN) | payer MEDICARE, SELFPAY ==
[2023-07-28] VITALS (18 sets, daily range): BP systolic 127–189; BP diastolic 72–105; PULSE 124–132; RESP 20–30; TEMP 37.2–38.5; O2SAT 86–96; BMI 31.7; BMI 31.2
--- NOTE | 2023-07-28 19:23 | EKG12_ITS ---
Test Reason : SHORTNESS OF BREATH Blood Pressure : / mmHG Vent. Rate : 136 BPM Atrial Rate : 136 BPM P-R Int : 160 ms QRS Dur : 102 ms QT Int : 296 ms P-R-T Axes : 000 094 068 degrees QTc Int : 445 ms Sinus tachycardia Rightward axis Borderline ECG When compared with ECG of 26-JAN-2022 17:06, Vent. rate has increased BY 54 BPM T wave amplitude has decreased in Inferior leads Nonspecific T wave abnormality now evident in Lateral leads Confirmed by EDDIE MILLER, ANA ([id number]), purchasing expeditor CHICO MARRUFO ([id number]) on 07/30/2023 2:28:10 PM Referred By: JAMARCUS Confirmed By:ANA MORGAN MD
--- NOTE | 2023-07-28 19:27 | EDS_ITS ---
HPI <GENEVA Dukes - Last Filed: 07/28/23 20:46> History of Present Illness Chief Complaint: Shortness of Breath Narrative Narrative: 78-year-old female with PMH of HTN, HLD, DM2, COPD on baseline 3 L O2, CVA, CKD was brought in for altered mental status. She was with her daughter yesterday and after leaving she was missing since 11 PM. [place] and was confused. She was brought in by EMS and was 66% on room air. She reports increased cough with sputum production this week. No fever or chills. No chest pain. She lives with her who is blind. Her family member is here providing history stating she seems more confused than usual. PFSH <GENEVA Dukes - Last Filed: 07/28/23 20:46> [facility] Medical History (Updated 07/28/23 @ 21:[address] Tacho Moffett MD) Anxiety CKD (chronic kidney disease) COPD (chronic obstructive pulmonary disease) Depression Diabetes Diabetes mellitus Emphysema of lung Former smoker Hypertension Hypertension Stroke/cerebrovascular accident Home Medications aspirin 81 mg chewable tablet 81 mg PO DAILY@0800 Heart health 12/27/16 [History Last Taken 07/28/23] bupropion HCl 150 mg tablet,12 hr sustained-release 150 mg PO BID mental health 12/27/16 [History Last Taken 07/28/23] cyanocobalamin (vitamin B-12) 1,000 mcg tablet (Vitamin B-12) 1,000 mg PO DAILY supplement 12/27/16 [History Last Taken 07/28/23] lovastatin 40 mg tablet 40 mg PO QHS cholesterol 12/27/16 [History Last Taken 07/27/23] montelukast 10 mg tablet 10 mg PO DAILY allergies 12/27/16 [History Last Taken 07/28/23] trazodone 150 mg tablet 150 mg PO QHS insomnia 12/27/16 [History Last Taken 07/27/23] venlafaxine 150 mg capsule,extended release 24 hr 150 mg PO DAILY depression 12/27/16 [History Last Taken 07/28/23] albuterol sulfate 90 mcg/actuation aerosol inhaler (Ventolin HFA) 1 - 2 puff inhalation Q4H PRN PRN Sob &/Or Wheezing ##1 12/30/16 [Rx Last Taken 01/19/20] bisoprolol fumarate 5 mg tablet 5 mg PO DINNER blood pressure 04/19/21 [History Last Taken 07/27/23] ferrous sulfate 325 mg (65 mg iron) tablet (FeroSul) 325 mg PO DAILY supplement 04/19/21 [History Last Taken 07/28/23] omeprazole 40 mg capsule,delayed release 40 mg PO DAILY GERD 04/19/21 [History Last Taken 07/28/23] losartan 25 mg tablet 25 mg PO DAILY hypertension 01/26/22 [History Last Taken 07/28/23] pioglitazone 30 mg tablet 30 mg PO DAILY@0800 diabetes 01/26/22 [History Last Taken 07/28/23] cholecalciferol (vitamin D3) 125 mcg (5,000 unit) capsule 125 mcg PO DAILY Supplement 01/31/22 [History Last Taken 07/28/23] glimepiride 2 mg tablet 2 mg PO BID 07/28/23 [History Last Taken 07/28/23] oxycodone-acetaminophen 5 mg-325 mg tablet 1 tab PO Q12H PRN pain 07/28/23 [History Last Taken 07/28/23] Allergy/AdvReac Type Severity Reaction Status Date / Time No Known Allergies Allergy Verified 07/28/23 19:09 Surgical History Status post open reduction with internal fixation (ORIF) of fracture of ankle Social History (Updated 01/31/22 @ 19:[address] Manoj Villatoro MD) household members: spouse Smoking Status: Former smoker alcohol intake: never substance use type: does not use ROS <GENEVA Dukes - Last Filed: 07/28/23 20:46> ROS ED ROS Narrative Constitutional: Negative for fever, chills, malaise. CVS: Negative for chest pain, syncope. Respiratory: Positive for shortness of breath, cough. GI: Negative for abdominal pain, nausea, vomiting, diarrhea. : Negative for dysuria. Neuro: Negative for headache. EXAM <GENEVA Dukes - Last Filed: 07/28/23 20:46> Physical Exam Narrative Exam Narrative: CONST: Patient sitting in no acute distress. EYES: Normal inspection. NECK: Normal inspection. RESP: Tachypneic around 30/minute, lung sounds diminished with faint wheeze. CVS: Rapid but regular rhythm, no murmur, no gallop. ABD: Soft and nontender, no guarding or rebound, nondistended. SKIN: Color normal, no rash, warm, dry, intact. EXTREMITIES: Normal appearance, no pedal edema. NEURO: Alert to self, place, and age. Did not know year. Face symmetric, moving all extremities. PSYCH: Normal affect. Const Vital Signs: 07/28/23 19:11 07/28/23 19:19 07/28/23 20:00 Temperature 101.3 F H 100.3 F H Temperature Source Temporal Temporal Pulse Rate 125 H 131 H Respiratory Rate 30 H 29 H Respiratory Effort Short of Breath Labored Accessory Muscle Use Respiratory Depth Shallow Respiratory Pattern Tachypnea Blood Pressure 189/93 H 172/105 H Blood Pressure Mean 125 127 Pulse Ox 86 90 Oxygen Delivery Method Nasal Cannula Nasal Cannula Nasal Cannula Oxygen Flow Rate (L/min) 3 3 4 07/28/23 20:10 07/28/23 20:10 07/28/23 20:10 Temperature Temperature Source Pulse Rate 130 H 131 H Respiratory Rate 26 H 26 H Respiratory Effort Respiratory Depth Respiratory Pattern Tachypnea Blood Pressure Blood Pressure Mean Pulse Ox 93 90 Oxygen Delivery Method Nasal Cannula Oxygen Flow Rate (L/min) 4 07/28/23 20:20 07/28/23 20:29 07/28/23 20:29 Temperature Temperature Source Pulse Rate 131 H 132 H Respiratory Rate 27 H 28 H Respiratory Effort Respiratory Depth Respiratory Pattern Tachypnea Blood Pressure Blood Pressure Mean Pulse Ox 92 96 Oxygen Delivery Method Nasal Cannula Oxygen Flow Rate (L/min) 4 07/28/23 20:30 07/28/23 20:40 07/28/23 20:50 Temperature Temperature Source Pulse Rate 130 H 132 H 131 H Respiratory Rate 24 H 21 H 22 H Respiratory Effort Respiratory Depth Respiratory Pattern Blood Pressure Blood Pressure Mean Pulse Ox 95 94 Oxygen Delivery Method Oxygen Flow Rate (L/min) 07/28/23 21:00 07/28/23 21:10 07/28/23 21:20 Temperature Temperature Source Pulse Rate Respiratory Rate Respiratory Effort Respiratory Depth Respiratory Pattern Blood Pressure 163/103 H Blood Pressure Mean 121 Pulse Ox 93 91 Oxygen Delivery Method Oxygen Flow Rate (L/min) <Dr. Tacho Moffett MD - Last Filed: 07/28/23 21:41> Physical Exam Const Vital Signs: 07/28/23 19:11 07/28/23 19:19 07/28/23 20:00 Temperature 101.3 F H 100.3 F H Temperature Source Temporal Temporal Pulse Rate 125 H 131 H Respiratory Rate 30 H 29 H Respiratory Effort Short of Breath Labored Accessory Muscle Use Respiratory Depth Shallow Respiratory Pattern Tachypnea Blood Pressure 189/93 H 172/105 H Blood Pressure Mean 125 127 Pulse Ox 86 90 Oxygen Delivery Method Nasal Cannula Nasal Cannula Nasal Cannula Oxygen Flow Rate (L/min) 3 3 4 07/28/23 20:10 07/28/23 20:10 07/28/23 20:10 Temperature Temperature Source Pulse Rate 130 H 131 H Respiratory Rate 26 H 26 H Respiratory Effort Respiratory Depth Respiratory Pattern Tachypnea Blood Pressure Blood Pressure Mean Pulse Ox 93 90 Oxygen Delivery Method Nasal Cannula Oxygen Flow Rate (L/min) 4 07/28/23 20:20 07/28/23 20:29 07/28/23 20:29 Temperature Temperature Source Pulse Rate 131 H 132 H Respiratory Rate 27 H 28 H Respiratory Effort Respiratory Depth Respiratory Pattern Tachypnea Blood Pressure Blood Pressure Mean Pulse Ox 92 96 Oxygen Delivery Method Nasal Cannula Oxygen Flow Rate (L/min) 4 07/28/23 20:30 07/28/23 20:40 07/28/23 20:50 Temperature Temperature Source Pulse Rate 130 H 132 H 131 H Respiratory Rate 24 H 21 H 22 H Respiratory Effort Respiratory Depth Respiratory Pattern Blood Pressure Blood Pressure Mean Pulse Ox 95 94 Oxygen Delivery Method Oxygen Flow Rate (L/min) 07/28/23 21:00 07/28/23 21:10 07/28/23 21:20 Temperature Temperature Source Pulse Rate Respiratory Rate Respiratory Effort Respiratory Depth Respiratory Pattern Blood Pressure 163/103 H Blood Pressure Mean 121 Pulse Ox 93 91 Oxygen Delivery Method Oxygen Flow Rate (L/min) MDM <GENEVA Dukes - Last Filed: 07/28/23 20:46> [facility] MDM Narrative Medical decision making narrative: History gathered from: Patient, family member and EMS Patient has had a cough for about a week. Has history of COPD on chronic 3 L O2. She was missing for about 24 hours and found off her chronic oxygen around 66% on room air. She was brought in by EMS and initially was tachycardic and tachypneic. Temporal scanner showed temp of 101.3, oral temp 100.3. She is tachycardic but regular. Lung sounds diminished with a faint wheezing which increased after aerosols concerning for COPD exacerbation. Sepsis protocol was initiated. She already received Solu-Medrol from EMS and was given IV fluids and Tylenol in the ED. Labs show white count of 14.6, hemoglobin 12.7, sodium 130, potassium 5.6, creatinine of 2.31 higher than previous (1.7). She was given IV Rocephin and Zithromax to cover community-acquired pneumonia. CXR noted diffuse interstitial prominence similar to previous but cannot exclude pneumonia. ED provider review of 1 view chest x-ray showed cardiomegaly, concern for bilateral infiltrates and elevation of left hemidiaphragm. With fever and cough and negative COVID/flu swabs she was treated with antibiotics. After she had been on 3 L O2 blood gas was obtained shows normal pH of 7.396, CO2 20.4, O2 61, bicarb 17.4. She is now more awake and alert and is on 4 L O2. Case will be discussed with the hospitalist for admission. Differential: pneumonia, COPD exacerbation, viral illness, lack of oxygen causing altered mental status Consults: Hospitalist I have personally performed a face to face assessment of the patient and have reviewed the LIV Note. I performed a substantive portion of the visit including all aspects of the following. My stallworth findings include: History: History is from patient and family. Evidently the patient has been coughing for a few days to a week. Not really bringing up much sputum. She does have a history of COPD but this is worse than normal. No known fevers although she has 1 here. She was evidently camping with the family. She left the campsite about 11:00 yesterday morning. They finally found her tonight. She is on 3 L of oxygen and did not have her oxygen. She was very confused but she is much more awake now. Saturations are down in the 60% range. Patient does admit that she just feels bad. She denies pain to me though. Exam: Patient is now awake and alert. But she is tachycardic. Mildly tachypneic. But saturations are about 8890% on oxygen now. She does have diffuse expiratory wheezing and some coarse rhonchi bilaterally. Abdomen is nontender. Medical Decision Making: She has clinically improved since she was found. She is evidently much more alert now. Patient CBC shows high white count of 14.6. Hemoglobin platelets are normal. Patient's electrolytes show some mildly high potassium. Creatinine is elevated over baseline. Likely as she has not drank since yesterday. Glucose is also high. Patient's troponin is normal at 23. Patient's lactate is pending. If patient's urine is cloudy but only 0-5 white cells. My independent interpretation of her single AP chest x-ray shows bilateral infiltrate. Relatively dense infiltrate on the left with elevated hemidiaphragm. X-rays final reading is pending. Patient will be given breathing treatments, steroids, antibiotics and fluids. She will need to be admitted. Lab Data Labs: Laboratory Results - last 24 hr 07/28/23 07/28/23 07/28/23 19:00 19:22 19:35 WBC 14.6 H RBC 4.25 Hgb 12.7 Hct 42.4 MCV 99.8 H MCH 29.9 MCHC 30.0 L RDW Std Deviation 54.9 H RDW Coeff of Tessa 14.9 H Plt Count 354 MPV 10.3 Immature Gran % (Auto) 0.500 Neut % (Auto) 87.7 H Lymph % (Auto) 4.7 L [place] % (Auto) 6.7 Eos % (Auto) 0.1 Baso % (Auto) 0.3 Absolute Neuts (auto) 12.7 H Absolute Lymphs (auto) 0.69 L Nucleated RBC % 0 Sodium 130 L Potassium 5.6 H Chloride 98 Carbon Dioxide 21.0 Anion Gap 11 BUN 29 H Creatinine 2.31 H Estim Creat Clear Calc 19.09 Est GFR (MDRD) Af Amer 26 L Est GFR (MDRD) Non-Af 22 L BUN/Creatinine Ratio 12.6 Glucose 260 H Lactic Acid Calcium 8.5 Troponin I High Sens 23 Urine Color Yellow Urine Clarity Sl. Cloudy Urine pH 5.0 Ur Specific [place] 1.020 Urine Protein 500 H Urine Glucose (UA) Normal Urine Ketones 5 H Urine Occult Blood 50 H Urine Nitrite Negative Urine Bilirubin 1 H Urine Urobilinogen 4 H Ur Leukocyte Esterase 25 H Urine RBC 0-5 SEEN Urine WBC 0-5 SEEN Ur Squamous Epith Cells 0 SEEN Amorphous Sediment 1+ Urine Bacteria 0 SEEN Urine Mucus 0 SEEN POC Glucose 241 H 10/16/23 19:53 WBC RBC Hgb Hct MCV MCH MCHC RDW Std Deviation RDW Coeff of Tessa Plt Count MPV Immature Gran % (Auto) Neut % (Auto) Lymph % (Auto) [place] % (Auto) Eos % (Auto) Baso % (Auto) Absolute Neuts (auto) Absolute Lymphs (auto) Nucleated RBC % Sodium Potassium Chloride Carbon Dioxide Anion Gap BUN Creatinine Estim Creat Clear Calc Est GFR (MDRD) Af Amer Est GFR (MDRD) Non-Af BUN/Creatinine Ratio Glucose Lactic Acid 2.0 Calcium Troponin I High Sens Urine Color Urine Clarity Urine pH Ur Specific [place] Urine Protein Urine Glucose (UA) Urine Ketones Urine Occult Blood Urine Nitrite Urine Bilirubin Urine Urobilinogen Ur Leukocyte Esterase Urine RBC Urine WBC Ur Squamous Epith Cells Amorphous Sediment Urine Bacteria Urine Mucus POC Glucose ABG Data ABG results: ABG 07/28/23 20:16 Specimen Type ART Sample Site L Radial pH 7.40 Bicarbonate Actual 17.4 L Total CO2 18 Base Excess -7 L O2 Saturation 92 L ABG pCO2 28.4 L ABG pO2 61 L Ed Test Positive O2 Delivery Device Cannula Vent Mode Not entered Radiography Diagnostic Testing: Clinical Impression(s) from Imaging Studies Chest X-Ray 07/28/23 19:45 IMPRESSION: Diffuse interstitial prominence is again identified similar to the prior examination perhaps indicating interstitial edema and/or other chronic interstitial changes. Superimposed pneumonia cannot be excluded. Electronically Signed: Phong Franco DO at 20:29 EDT , <Dr. Tacho Moffett MD - Last Filed: 07/28/23 21:41> [facility] MDM Narrative Medical decision making narrative: I have personally performed a face to face assessment of the patient and have reviewed the LIV Note. I performed a substantive portion of the visit including all aspects of the following. My stallworth findings include: History: History is from patient and family. Evidently the patient has been coughing for a few days to a week. Not really bringing up much sputum. She does have a history of COPD but this is worse than normal. No known fevers although she has 1 here. She was evidently camping with the family. She left the campsite about 11:00 yesterday morning. They finally found her tonight. She is on 3 L of oxygen and did not have her oxygen. She was very confused but she is much more awake now. Saturations are down in the 60% range. Patient does admit that she just feels bad. She denies pain to me though. Exam: Patient is now awake and alert. But she is tachycardic. Mildly tachypneic. But saturations are about 8890% on oxygen now. She does have di ffuse expiratory wheezing and some coarse rhonchi bilaterally. Abdomen is nontender. Medical Decision Making: She has clinically improved since she was found. She is evidently much more alert now. Patient CBC shows high white count of 14.6. Hemoglobin platelets are normal. Patient's electrolytes show some mildly high potassium. Creatinine is elevated over baseline. Likely as she has not drank since yesterday. Glucose is also high. Patient's troponin is normal at 23. Patient's lactate is pending. If patient's urine is cloudy but only 0-5 white cells. My independent interpretation of her single AP chest x-ray shows bilateral infiltrate. Relatively dense infiltrate on the left with elevated hemidiaphragm. X-rays final reading is pending. Patient will be given breathing treatments, steroids, antibiotics and fluids. She will need to be admitted. Lab Data Attestation: I reviewed the patient's lab results. Labs: Laboratory Results - last 24 hr 07/28/23 07/28/23 07/28/23 19:00 19:22 19:35 WBC 14.6 H RBC 4.25 Hgb 12.7 Hct 42.4 MCV 99.8 H MCH 29.9 MCHC 30.0 L RDW Std Deviation 54.9 H RDW Coeff of Tessa 14.9 H Plt Count 354 MPV 10.3 Immature Gran % (Auto) 0.500 Neut % (Auto) 87.7 H Lymph % (Auto) 4.7 L [place] % (Auto) 6.7 Eos % (Auto) 0.1 Baso % (Auto) 0.3 Absolute Neuts (auto) 12.7 H Absolute Lymphs (auto) 0.69 L Nucleated RBC % 0 Sodium 130 L Potassium 5.6 H Chloride 98 Carbon Dioxide 21.0 Anion Gap 11 BUN 29 H Creatinine 2.31 H Estim Creat Clear Calc 19.09 Est GFR (MDRD) Af Amer 26 L Est GFR (MDRD) Non-Af 22 L BUN/Creatinine Ratio 12.6 Glucose 260 H Lactic Acid Calcium 8.5 Troponin I High Sens 23 Urine Color Yellow Urine Clarity Sl. Cloudy Urine pH 5.0 Ur Specific [place] 1.020 Urine Protein 500 H Urine Glucose (UA) Normal Urine Ketones 5 H Urine Occult Blood 50 H Urine Nitrite Negative Urine Bilirubin 1 H Urine Urobilinogen 4 H Ur Leukocyte Esterase 25 H Urine RBC 0-5 SEEN Urine WBC 0-5 SEEN Ur Squamous Epith Cells 0 SEEN Amorphous Sediment 1+ Urine Bacteria 0 SEEN Urine Mucus 0 SEEN POC Glucose 241 H 07/28/23 19:53 WBC RBC Hgb Hct MCV MCH MCHC RDW Std Deviation RDW Coeff of Tessa Plt Count MPV Immature Gran % (Auto) Neut % (Auto) Lymph % (Auto) [place] % (Auto) Eos % (Auto) Baso % (Auto) Absolute Neuts (auto) Absolute Lymphs (auto) Nucleated RBC % Sodium Potassium Chloride Carbon Dioxide Anion Gap BUN Creatinine Estim Creat Clear Calc Est GFR (MDRD) Af Amer Est GFR (MDRD) Non-Af BUN/Creatinine Ratio Glucose Lactic Acid 2.0 Calcium Troponin I High Sens Urine Color Urine Clarity Urine pH Ur Specific [place] Urine Protein Urine Glucose (UA) Urine Ketones Urine Occult Blood Urine Nitrite Urine Bilirubin Urine Urobilinogen Ur Leukocyte Esterase Urine RBC Urine WBC Ur Squamous Epith Cells Amorphous Sediment Urine Bacteria Urine Mucus POC Glucose ABG Data ABG results: ABG 07/28/23 20:16 Specimen Type ART Sample Site L Radial pH 7.40 Bicarbonate Actual 17.4 L Total CO2 18 Base Excess -7 L O2 Saturation 92 L ABG pCO2 28.4 L ABG pO2 61 L Ed Test Positive O2 Delivery Device Cannula Vent Mode Not entered Radiography Diagnostic Testing: Clinical Impression(s) from Imaging Studies Chest X-Ray 07/28/23 19:45 IMPRESSION: Diffuse interstitial prominence is again identified similar to the prior examination perhaps indicating interstitial edema and/or other chronic interstitial changes. Superimposed pneumonia cannot be excluded. Electronically Signed: Phong Franco DO at 20:29 EDT , Discharge Plan Triage Chief Complaint: Shortness of Breath ED Midlevel Provider: Carlyn Salmon ED Provider: Tacho Moffett Dx/Rx/DC Orders Clinical Impression: Acute kidney injury, Community acquired pneumonia, Acute exacerbation of chronic obstructive pulmonary disease, Hypoxia Prescriptions: No Action bupropion HCl 150 MG tablet sustained-release 12 hr 150 mg PO BID Patient Comments: DEPRESSION lovastatin 40 MG tablet 40 mg PO QHS Patient Comments: REDUCES CHOLESTEROL venlafaxine 150 MG capsule,extended release 24hr 150 mg PO DAILY Patient Comments: MOOD cyanocobalamin (vitamin B-12) [Vitamin B-12] 1,000 MCG tablet 1,000 mg PO DAILY Patient Comments: VITAMIN SUPPLEMENT trazodone 150 MG tablet 150 mg PO QHS Patient Comments: SLEEP aspirin 81 MG tablet,chewable 81 mg PO DAILY@0800 Patient Comments: HEALTH MAINTENANCE montelukast 10 MG tablet 10 mg PO DAILY Patient Comments: ALLERGIES albuterol sulfate [Ventolin HFA] 1 INHALER inhaler 1 - 2 puff inhalation Q4H PRN PRN (Reason: Sob &/Or Wheezing) Qty: 1 0RF omeprazole 40 mg capsule,delayed release(DR/EC) 40 mg PO DAILY bisoprolol fumarate 5 mg tablet 5 mg PO DINNER ferrous sulfate [FeroSul] 325 mg (65 mg iron) tablet 325 mg PO DAILY Patient Comments: TAKE 1 TABLET EVERY DAY losartan 25 mg tablet 25 mg PO DAILY Patient Comments: Take 1 tablet every day by oral route for 30 days. pioglitazone 30 MG tablet 30 mg PO DAILY@0800 cholecalciferol (vitamin D3) 125 mcg (5,000 unit) capsule 125 mcg PO DAILY glimepiride 2 mg tablet 2 mg PO BID Patient Comments: TAKE 1 TABLET BY MOUTH TWICE DAILY oxycodone-acetaminophen 5-325 mg tablet 1 tab PO Q12H PRN (Reason: pain) Patient Comments: TAKE 1 TABLET BY MOUTH EVERY 12 HOURS NEEDED FOR PAIN FOR 30 DAYS Primary Care Provider: Grady Mckeon Referrals: Grady Mckeon DO [Primary Care Provider] -
--- NOTE | 2023-07-28 19:30 | CM.ED ---
Social Work SW performed chart review; LW and HCPOA documents on file as of 2021. Patient's HCPOA is patient's daughter Abi with no alternates listed. Umu BLACKBURN, ELIJAH
[2023-07-28 19:37] LABS: Absolute Lymphocyte Count 0.69 X10^3/uL (0.83-4.51); Absolute Neutrophil Count 12.7 X10^3/uL (2.0-7.7); Basophil# 0.05 X10^3/uL; Basophil% 0.3 % (0-1); Eosinophil# 0.02 X10^3/uL; Eosinophils% 0.1 % (0-5); Hematocrit 42.4 % (37-47); Hemoglobin 12.7 g/dL (12.0-15.0); Lymphocyte # 0.69 X10^3/ul (0.83-4.51); Lymphocyte % 4.7 % (19-41); Mean Corpuscular Hgb 29.9 pg (27.0-32.0); Mean Corpuscular Volume 99.8 fL (81-99); Mean Platelet Vol. 10.3 fl (6.2-12.0); Monocyte# 0.98 X10^3/uL; Monocyte% 6.7 % (0-10); NRBC Flagged by Analyzer 0 % (0-5); Neutrophil # 12.74 X10^3/uL (2.7-7.7); Neutrophil % 87.7 % (47-70); Platelet Count 354 K/mm3 (150-450); RBC Distribution Width CV 14.9 % (11.6-14.6); RBC Distribution Width SD 54.9 fl (35.1-43.9); Red Blood Count 4.25 M/mm3 (4.2-5.4); White Blood Count 14.6 K/mm3 (4.4-11.0)
[2023-07-28 19:45] LABS: Bacteria 0 SEEN /hpf (None Seen); Color, Urine Yellow (Yellow); Glucose, Dipstick Normal (Normal); Ketone-Dipstick 5 mg/dl (Negative); Leukocyte Esterase-Dipstick 25 /ul (Negative); Mucous, Urine 0 SEEN /hpf (<or=2+); Nitrite-Dipstick Negative (Negative); Occult Blood-Urine 50 /ul (Negative); Protein-Dipstick 500 mg/dl (Negative); Squamous Epithelial Cells - UA 0 SEEN /hpf (5-10); Urine Clarity Sl. Cloudy (Clear); Urine Urobilinogen 4 mg/dl (Normal)
[2023-07-28 19:45] LABS: Bedside Glucose 241 mg/dL (74-106)
--- NOTE | 2023-07-28 19:45 | RAD_ITS ---
EXAM: XR CHEST, 1 VIEW CLINICAL INDICATION: dyspnea TECHNIQUE: Frontal view of the chest. COMPARISON: 01/26/2022 FINDINGS: LUNGS AND PLEURAL SPACES: Diffuse interstitial prominence is again identified similar to the prior examination perhaps indicating interstitial edema and/or other chronic interstitial changes. Superimposed pneumonia cannot be excluded. No pneumothorax. No effusion. HEART: No significant abnormality. Cardiac silhouette not enlarged. MEDIASTINUM: Central airways and mediastinal contour are unremarkable. BONES/JOINTS: No significant abnormality. SOFT TISSUES: No significant abnormality. VASCULATURE: Atherosclerosis. RAD/Chest 1 View (Portable) IMPRESSION: Diffuse interstitial prominence is again identified similar to the prior examination perhaps indicating interstitial edema and/or other chronic interstitial changes. Superimposed pneumonia cannot be excluded. Electronically Signed: Phong Franco DO at 20:29 EDT ,
[2023-07-28 19:49] LABS: Urine Bilirubin Dipstick 1 mg/dL (Negative)
[2023-07-28 19:55] LABS: Amorphous Sediment 1+; Red Blood Cells-Urine 0-5 SEEN /hpf (0-5); White Blood Cells 0-5 SEEN /hpf (0-5)
[2023-07-28 19:56] LABS: Anion Gap 11 (5-15); BUN 29 mg/dL (7-18); BUN/Creat Ratio 12.6 RATIO (10-20); Calcium,Total 8.5 mg/dL (8.5-10.1); Chloride 98 mmol/L (98-107); Creatinine, Serum 2.31 mg/dL (0.55-1.02); EST Glomerular Filtration Rate 22 mL/min (>60); Est Glom Filt Rate - Afr Amer 26 mL/min (>60); Estimated Creatinine Clearance 19.09 ml/min; Glucose 260 mg/dL (74-106); Potassium 5.6 mmol/L (3.5-5.1); Sodium Level 130 mmol/L (136-145); Troponin-I HS 23 pg/mL (3.0-54.0)
[2023-07-28 20:20] LABS: Allen Test Positive; Base Excess -7 mmol/L (-2 to +2); Bicarbonate 17.4 mmol/L (22-26); Blood Gas Specimen Type ART; Mode Not entered; O2 Delivery Device Cannula; PO2 61 mmHG (75-100); SITE L Radial; SO2 92 % (95-99); Total Carbon Dioxide 18 mmol/L; pCO2 28.4 mmHg (35-45)
[2023-07-28] MEDS: Ipratropium/Albuterol Sulfate 3 ML AMPUL.NEB INHALATION (20:23)
[2023-07-28] MEDS: Albuterol 2.5 MG/3 ML VIAL.NEB. INHALATION (20:26)
[2023-07-28] MEDS: Ceftriaxone 2 GM in 0.9% Normal Saline (50mL MB+) 50 ML IV (20:33)
[2023-07-28] MEDS: 0.9% Normal Saline (1000mL) 1,000 ML 999 ML IV (20:34)
[2023-07-28] MEDS: Acetaminophen 500 MG Tablet 1000 MG PO (21:18)
[2023-07-28] MEDS: Azithromycin 500 MG in Dextrose 5%-Water (250mL Bag) 250 ML 250 MG IV (21:18)
--- NOTE | 2023-07-28 21:38 | PCM.HP.STD ---
HPI - General General Date of Admission: 07/28/23 Date of Service: 07/28/23 Chief Complaint: Confusion HPI Narrative WING LIN, is a 78 F significant history of COPD and diabetes mellitus who presents to the emergency department with confusion. Patient [place] she did not go home. She was reported missing to the police. Patient was later found with a car parked [place] without her routine oxygen. When paramedics found her her oxygen saturation on room air was 66%. At baseline patient uses 3 L of nasal cannula oxygen. On presentation to the ED she was placed on 4 L. Reportedly patient was wheezing and she had a cough. Her temperature was 100.4. Patient was tachycardic. White count was elevated at 14.6. Potassium was 5.6 and she was in BENITO. Patient was given steroids by paramedics. Patient cannot confirm the above history except she stated that she was in the hospital because she has a lot of problems including her sugar. However upon prodding she admits that she has been coughing and she has a green sputum with her cough. Also she admits being short of breath. The emergency department chest x-ray showed infiltrates. [facility] Medical History Anxiety CKD (chronic kidney disease) COPD (chronic obstructive pulmonary disease) Depression Diabetes Diabetes mellitus Emphysema of lung Former smoker Hypertension Hypertension Stroke/cerebrovascular accident Home Medications aspirin 81 mg chewable tablet 81 mg PO DAILY@0800 Heart health 12/27/16 [History Last Taken 07/28/23] bupropion HCl 150 mg tablet,12 hr sustained-release 150 mg PO BID mental health 12/27/16 [History Last Taken 07/28/23] cyanocobalamin (vitamin B-12) 1,000 mcg tablet (Vitamin B-12) 1,000 mg PO DAILY supplement 12/27/16 [History Last Taken 07/28/23] lovastatin 40 mg tablet 40 mg PO QHS cholesterol 12/27/16 [History Last Taken 07/27/23] montelukast 10 mg tablet 10 mg PO DAILY allergies 12/27/16 [History Last Taken 07/28/23] trazodone 150 mg tablet 150 mg PO QHS insomnia 12/27/16 [History Last Taken 07/27/23] venlafaxine 150 mg capsule,extended release 24 hr 150 mg PO DAILY depression 12/27/16 [History Last Taken 07/28/23] albuterol sulfate 90 mcg/actuation aerosol inhaler (Ventolin HFA) 1 - 2 puff inhalation Q4H PRN PRN Sob &/Or Wheezing ##1 12/30/16 [Rx Last Taken 01/19/20] bisoprolol fumarate 5 mg tablet 5 mg PO DINNER blood pressure 04/19/21 [History Last Taken 07/27/23] ferrous sulfate 325 mg (65 mg iron) tablet (FeroSul) 325 mg PO DAILY supplement 04/19/21 [History Last Taken 07/28/23] omeprazole 40 mg capsule,delayed release 40 mg PO DAILY GERD 04/19/21 [History Last Taken 07/28/23] losartan 25 mg tablet 25 mg PO DAILY hypertension 01/26/22 [History Last Taken 07/28/23] pioglitazone 30 mg tablet 30 mg PO DAILY@0800 diabetes 01/26/22 [History Last Taken 07/28/23] cholecalciferol (vitamin D3) 125 mcg (5,000 unit) capsule 125 mcg PO DAILY Supplement 01/31/22 [History Last Taken 07/28/23] glimepiride 2 mg tablet 2 mg PO BID 07/28/23 [History Last Taken 07/28/23] oxycodone-acetaminophen 5 mg-325 mg tablet 1 tab PO Q12H PRN pain 07/28/23 [History Last Taken 07/28/23] Allergy/AdvReac Type Severity Reaction Status Date / Time No Known Allergies Allergy Verified 07/28/23 19:09 Family History Other Diabetes Heart disease Surgical History Status post open reduction with internal fixation (ORIF) of fracture of ankle Social History household members: spouse Smoking Status: Former smoker alcohol intake: never substance use type: does not use ROS ROS Narrative Pertinent positives and pertinent negatives as noted in HPI. All other systems were reviewed and are negative Vital Signs Vital Signs Vital Signs: 07/28/23 19:11 07/28/23 19:19 07/28/23 20:00 Temperature 101.3 F H 100.3 F H Temperature Source Temporal Temporal Pulse Rate 125 H 131 H Respiratory Rate 30 H 29 H Respiratory Effort Short of Breath Labored Accessory Muscle Use Respiratory Depth Shallow Respiratory Pattern Tachypnea Blood Pressure 189/93 H 172/105 H Blood Pressure Mean 125 127 Pulse Ox 86 90 Oxygen Delivery Method Nasal Cannula Nasal Cannula Nasal Cannula Oxygen Flow Rate (L/min) 3 3 4 07/28/23 20:10 07/28/23 20:10 07/28/23 20:10 Temperature Temperature Source Pulse Rate 130 H 131 H Respiratory Rate 26 H 26 H Respiratory Effort Respiratory Depth Respiratory Pattern Tachypnea Blood Pressure Blood Pressure Mean Pulse Ox 93 90 Oxygen Delivery Method Nasal Cannula Oxygen Flow Rate (L/min) 4 07/28/23 20:20 07/28/23 20:29 07/28/23 20:29 Temperature Temperature Source Pulse Rate 131 H 132 H Respiratory Rate 27 H 28 H Respiratory Effort Respiratory Depth Respiratory Pattern Tachypnea Blood Pressure Blood Pressure Mean Pulse Ox 92 96 Oxygen Delivery Method Nasal Cannula Oxygen Flow Rate (L/min) 4 07/28/23 20:30 07/28/23 20:40 07/28/23 20:50 Temperature Temperature Source Pulse Rate 130 H 132 H 131 H Respiratory Rate 24 H 21 H 22 H Respiratory Effort Respiratory Depth Respiratory Pattern Blood Pressure Blood Pressure Mean Pulse Ox 95 94 Oxygen Delivery Method Oxygen Flow Rate (L/min) 07/28/23 21:00 07/28/23 21:10 07/28/23 21:20 Temperature Temperature Source Pulse Rate Respiratory Rate Respiratory Effort Respiratory Depth Respiratory Pattern Blood Pressure 163/103 H Blood Pressure Mean 121 Pulse Ox 93 91 Oxygen Delivery Method Oxygen Flow Rate (L/min) Weight Weight: 91.8 kg Body Mass Index (BMI) 31.7 Physical Exam Narrative Physical exam: General: Well-nourished, well-developed. Head: Normocephalic, atraumatic, no tenderness Eyes: Vision is grossly intact. EOMI ENT, no trauma, moist mucous membranes, no rhinorrhea Neck: Nontender, No thyromegaly. CVS: Tachycardia S1-S2 present. No murmur, gallop or rub. Respiratory : Tachypnea; wheezing and rhonchi Abdomen: Soft, nontender, nondistended, normal bowel sounds, no masses : Deferred Back: Nontender, no CVA tenderness, no midline spinal tenderness, deformities, step-offs Extremities: Nontender full range of motion, no trauma Skin: Normal color, no trauma, abrasions Neuro: Alert, oriented, cranial nerves II through XII grossly intact. Psychiatry: Normal mood. Normal affect. Results Lab / Micro Data 07/29/23 05:29 07/29/23 05:29 Labs: Laboratory Results - last 24 hr 07/28/23 19:00: WBC 14.6 H, RBC 4.25, Hgb 12.7, Hct 42.4, MCV 99.8 H, MCH 29.9, MCHC 30.0 L, RDW Std Deviation 54.9 H, RDW Coeff of Tessa 14.9 H, Plt Count 354, MPV 10.3, Immature Gran % (Auto) 0.500, Neut % (Auto) 87.7 H, Lymph % (Auto) 4.7 L, [place] % (Auto) 6.7, Eos % (Auto) 0.1, Baso % (Auto) 0.3, Absolute Neuts (auto) 12.7 H, Absolute Lymphs (auto) 0.69 L, Nucleated RBC % 0, Sodium 130 L, Potassium 5.6 H, Chloride 98, Carbon Dioxide 21.0, Anion Gap 11, BUN 29 H, Creatinine 2.31 H, Estim Creat Clear Calc 19.09, Est GFR (MDRD) Af Amer 26 L, Est GFR (MDRD) Non-Af 22 L, BUN/Creatinine Ratio 12.6, Glucose 260 H, Calcium 8.5, Troponin I High Sens 23 07/28/23 19:22: POC Glucose 241 H 07/28/23 19:35: Urine Color Yellow, Urine Clarity Sl. Cloudy, Urine pH 5.0, Ur Specific [place] 1.020, Urine Protein 500 H, Urine Glucose (UA) Normal, Urine Ketones 5 H, Urine Occult Blood 50 H, Urine Nitrite Negative, Urine Bilirubin 1 H, Urine Urobilinogen 4 H, Ur Leukocyte Esterase 25 H, Urine RBC 0-5 SEEN, Urine WBC 0-5 SEEN, Ur Squamous Epith Cells 0 SEEN, Amorphous Sediment 1+, Urine Bacteria 0 SEEN, Urine Mucus 0 SEEN 07/28/23 19:53: Lactic Acid 2.0 Micro: Microbiology 07/28/23 19:20 Nasal Secretion SARS-CoV-2 & FLU Antigen (Rapid) - Final ABG Data ABG results: ABG 07/28/23 20:16 Specimen Type ART Sample Site L Radial pH 7.40 Bicarbonate Actual 17.4 L Total CO2 18 Base Excess -7 L O2 Saturation 92 L ABG pCO2 28.4 L ABG pO2 61 L Ed Test Positive O2 Delivery Device Cannula Vent Mode Not entered Radiology Impression Chest X-Ray 07/28/23 19:45 IMPRESSION: Diffuse interstitial prominence is again identified similar to the prior examination perhaps indicating interstitial edema and/or other chronic interstitial changes. Superimposed pneumonia cannot be excluded. Electronically Signed: Phong Franco DO at 20:29 EDT , Assessment & Plan Assessment/Plan (1) Sepsis: QUALIFIERS: Sepsis type: sepsis due to unspecified organism Sepsis acute organ dysfunction status: with acute organ dysfunction Severe sepsis acute organ dysfunction type: acute renal failure Acute renal failure type: unspecified Severe sepsis shock status: without septic shock Qualified Code(s): A41.9 - Sepsis, unspecified organism; R65.20 - Severe sepsis without septic shock; N17.9 - Acute kidney failure, unspecified (2) Community acquired pneumonia: QUALIFIERS: Laterality: unspecified laterality Qualified Code(s): J18.9 - Pneumonia, unspecified organism (3) Acute kidney injury: (4) Diabetes mellitus: QUALIFIERS: Diabetes mellitus type: type 2 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 SIRS criteria: Tmax of 101.3 on presentation Respiratory rate maximum of 30 Heart rate more than 90 (maximum of 132 on presentation) WBC more than 12,000 (white count of 14,600 on presentation) organ dysfunction: Creatinine more than 2 Lactic acid borderline at 2 Impression of chest x-ray by radiology: Diffuse interstitial prominence. Superimposed pneumonia cannot be excluded. Independent interpretation of chest x-ray by hospitalist: Agrees with radiology interpretation. Ceftriaxone and azithromycin started at the emergency department and continued. Blood culture x2 ordered at the emergency department, follow up. Streptococcus pneumoniae antigen and Legionella urine antigen ordered. SARS-CoV-2 and flu antigen ordered and returned negative. Acute COPD exacerbation Blood gas showed pH of 7.40. A PCO2 of 28.4; PO2 of 61 With tachycardia scheduled albuterol could not be ordered. Ipratropium nebulization scheduled.. Albuterol ordered. Give Solu-Medrol by squad. Solu-Medrol IV [id number] ordered. Mucinex ordered Chronic respiratory failure Mildly worsening as patient usually requires 3 L of oxygen but was requiring 4 L on presentation. BENITO CKD stage IIIb Creatinine presentation was 2.31. Baseline creatinine is around 1.8. Gentle IV hydration. Avoid nephrotoxins. Home losartan. 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 Diabetes mellitus with nephropathy Blood glucose not within goal. Glimepiride continued. Actos continued. Accu-Chek correction scale insulin ordered. Hypertension Blood pressure is not within goal Home blood pressure medication continued. Home losartan held for BENITO. Trend blood pressure and adjust blood pressure medications. DVT prophylaxis Subcutaneous heparin ordered. Time spent in the patient's overall evaluation,decision-making process, review of diagnostic data, adjustment of management, discussion with other providers, nursing and ancillary staff involved in patient's care documentation, 70 minutes. Charges/Coding Visit Charges Inpatient E&M: 07406 In Hosp L3
[2023-07-28] MEDS: buPROPion (SR) 150 MG Tablet.SA PO (23:39)
[2023-07-28] MEDS: traZODone 50 MG Tablet 150 MG PO (23:39)
[2023-07-28] MEDS: Atorvastatin Calcium 10 MG Tablet PO (23:39)
[2023-07-28] MEDS: Heparin Injection (Vial) 5,000 UNIT/ML VIAL 5000 UNIT SC (23:40)
[2023-07-28] MEDS: 0.9% Normal Saline (1000mL) 1,000 ML 75 ML IV (23:41)
[2023-07-28] MEDS: Insulin Lispro 100 UNIT/ML INSULN.PEN SC (23:52)
[2023-07-28 23:59] LABS: Reflex Lactate? Y
[2023-07-29] VITALS (10 sets, daily range): BP systolic 134–148; BP diastolic 68–93; PULSE 93–109; RESP 17–20; TEMP 36.5–37.1; O2SAT 92–100
[2023-07-29 00:08] LABS: Bedside Glucose 304 mg/dL (74-106)
[2023-07-29] MEDS: Ipratropium 0.5 MG/2.5 ML SOLUTION INHALATION ×4 (00:15→19:23)
[2023-07-29 00:52] LABS: Lactic Acid 1.5 mmol/L (0.4-1.9)
[2023-07-29] MEDS: guaiFENesin 600 MG Tablet PO ×3 (03:41→21:07)
[2023-07-29] MEDS: MethylPREDNISolone 125 MG/2 ML Vial 60 MG IV ×3 (06:10→21:10)
[2023-07-29] MEDS: Insulin Lispro 100 UNIT/ML INSULN.PEN SC ×3 (06:14→21:06)
[2023-07-29 06:23] LABS: Absolute Lymphocyte Count 0.43 X10^3/uL (0.83-4.51); Absolute Neutrophil Count 14.5 X10^3/uL (2.0-7.7); Basophil# 0.02 X10^3/uL; Basophil% 0.1 % (0-1); Hematocrit 33.8 % (37-47); Hemoglobin 10.4 g/dL (12.0-15.0); Lymphocyte # 0.43 X10^3/ul (0.83-4.51); Lymphocyte % 2.8 % (19-41); Mean Corp Hgb Conc 30.8 g/dL (32-36); Mean Corpuscular Hgb 30.4 pg (27.0-32.0); Mean Corpuscular Volume 98.8 fL (81-99); Mean Platelet Vol. 10.2 fl (6.2-12.0); Monocyte# 0.51 X10^3/uL; Monocyte% 3.3 % (0-10); NRBC Flagged by Analyzer 0 % (0-5); Neutrophil # 14.45 X10^3/uL (2.7-7.7); Neutrophil % 93.1 % (47-70); POSITIVE DIFFERENTIAL YES; Platelet Count 243 K/mm3 (150-450); RBC Distribution Width CV 14.6 % (11.6-14.6); RBC Distribution Width SD 53.1 fl (35.1-43.9); Red Blood Count 3.42 M/mm3 (4.2-5.4); White Blood Count 15.5 K/mm3 (4.4-11.0)
[2023-07-29 06:28] LABS: Differential Indicated SCAN CRITERIA MET
[2023-07-29 06:45] LABS: Bedside Glucose 239 mg/dL (74-106)
[2023-07-29 07:01] LABS: Anion Gap 7 (5-15); BUN 28 mg/dL (7-18); BUN/Creat Ratio 13.5 RATIO (10-20); Calcium,Total 7.6 mg/dL (8.5-10.1); Chloride 103 mmol/L (98-107); Creatinine, Serum 2.08 mg/dL (0.55-1.02); EST Glomerular Filtration Rate 25 mL/min (>60); Est Glom Filt Rate - Afr Amer 30 mL/min (>60); Estimated Creatinine Clearance 22.03 ml/min; Glucose 268 mg/dL (74-106); Potassium 4.9 mmol/L (3.5-5.1); Sodium Level 133 mmol/L (136-145)
[2023-07-29] MEDS: Cyanocobalamin 500 MCG Tablet 1000 MCG PO (08:59)
[2023-07-29] MEDS: Ferrous Sulfate 325 MG Tablet PO (08:59)
[2023-07-29] MEDS: Pioglitazone Hydrochloride 30 MG Tablet PO (08:59)
[2023-07-29] MEDS: Aspirin 81 MG TAB.CHEW PO (08:59)
[2023-07-29] MEDS: Glimepiride 2 MG Tablet PO (08:59)
[2023-07-29] MEDS: Venlafaxine XR 150 MG Capsule PO (09:00)
[2023-07-29] MEDS: Montelukast 10 MG Tablet PO (09:00)
[2023-07-29] MEDS: Cholecalciferol (Vit D3) 125 MCG CAPSULE (5,000 UNITS) PO (09:00)
[2023-07-29] MEDS: Pantoprazole Sodium 40 MG Tablet PO (09:00)
[2023-07-29] MEDS: buPROPion (SR) 150 MG Tablet.SA PO ×2 (09:00→21:08)
[2023-07-29] MEDS: Heparin Injection (Vial) 5,000 UNIT/ML VIAL 5000 UNIT SC ×2 (09:01→21:11)
[2023-07-29] MEDS: Ensure Plus High Protein 120 ML LIQUID PO (09:17)
--- NOTE | 2023-07-29 11:20 | WOUNDNOTE ---
wound photo: left lateral leg above ankle
--- NOTE | 2023-07-29 11:40 | CASEMGMT ---
Addendum entered by Silvina Whiting 07/29/23 17:00: E-mail received from Pratik @ [facility] Palliative. They are scheduled to meet w/pt and step-dtr tomorrow/Fri @ 9 AM @ [facility]. Original Note: RN?CM?HAIR DESIGNER?CM?to room to meet with patient for initial transition planning/care coordination?assessment.?RN?CM?introduced self and role at [facility].? Pt voices understanding and consents to?assessment?at this time.? Pt resting in bed in no distress at this time.?Dtr, Abi, and step-dtr, Barbie, @ bedside and pt agreeable to them being present during assessment. Pt is A/O at this time and answers all questions appropriately.?? Care providers, pharmacy, and demographics verified/updated at this time w/pt and family. PCP: Dr Mckeon Specialists: Dr Jay nephvaishali. Pt had an appt scheduled for today. Family state they have cx'd this appt and will call to reschedule it. Preferred Pharmacy: [facility] @ discharge, otherwise, [facility] Insurance: [facility] Prescription Benefit: yes LW/HPOA: Pt states she has a LW and HCPOA and her POA is her , Jony Guardado. LNOK: Jony Guardado, ; Abi Zamudio, dtr; Barbie Townsend, kaushik-dtr Living Arrangements: Pt lives with in a two story house with a ramp to enter. Family reports she was I in ADL's prior to hospitalization, stating she was managing her own medications, and getting her own groceries. Abi and Barbie both state pt has plenty of help, stating , Barbie, Abi, and pt's nephew all can assist w/care as needed. Transportation: Pt drives self and denies concerns with transportation. Family. DME: Pt has a shower chair, BSC, RTS, hospital bed, W/C, functioning glucometer w/supplies, quad cane, 2-3 FWW's, rollator, O2 at 3 cont through [employer] (verified). Pt has a concentrator and portable O2 tank, which family state they can bring in for pt to go home on. Pt has a pulse ox, but they are not sure where it is. Family state they can afford to purchase another one if they cannot locate pt's. Family report pt has all medications needed @ home. HHC/SNF: Pt has been to [facility] TCU in the past. Discussed discharge planning and options, including SNF and HHC. Pt and family state they do not want pt to go to a SNF, stating they want her to discharge home and they state they can help take care of pt. Questions answered re: HHC. They state they would like [facility] and do not want a list of other HHC options. They state, if [facility] unable to accept her, then they would take a list at that time. Family made aware, if wound care is needed, that [facility] nurse only comes about once/week to complete this. They state they are willing to learn/do wound care, if needed. They ask for Barbie to be the social contact worker to set up C appts. Call to Chula @ [facility] and referral made for SN and PT/OT. She was made aware Barbie is to be the social contact worker. Palliative Care: Discussed Palliative care and questions answered. Pt and family interested in a referral. Order received from Dr Argueta and referral sent to [facility] via e-mail. Pt wishes to return home and states has no concerns with going home at time of discharge.? CM?to follow for any increase in home oxygen needs and any further discharge planning/needs.? Pt and family voice no further concerns/needs at this time.? Advised them to ask for?CM?if any further questions/concerns/needs arise.? They voice understanding. PLAN:??Home w/HHC and family support. Suzette CONDEN?RN?CM
[2023-07-29 11:51] LABS: Bedside Glucose 310 mg/dL (74-106)
--- NOTE | 2023-07-29 12:36 | CASEMGMT ---
Discharge Planning HH referral sent via [facility] to [facility]. Maylin Lang, Discharge Planning Asst.
[2023-07-29] MEDS: 0.9% Normal Saline (1000mL) 1,000 ML 75 ML IV (12:51)
[2023-07-29] MEDS: Senna/Docusate Sodium 1 Tablet 2 TABLET PO (14:01)
--- NOTE | 2023-07-29 16:59 | PCM.PN.HOSP ---
Reason for Visit Reason for Visit: Diagnoses Sepsis, unspecified organism (07/28/23) Type 2 diabetes mellitus with hyperglycemia (07/28/23) Pneumonia, unspecified organism (07/28/23) Acute kidney failure, unspecified (07/28/23) Severe sepsis without septic shock (07/28/23) Subjective Subjective Patient seen at bedside this morning. Lying comfortably in bed, conversing normally, no acute distress. Satting in low 90s on 3 L nasal cannula, notably is on 3 L nasal cannula at home. She currently denies any shortness of breath at rest. Patient states that her breathing feels much improved after several breathing treatments overnight. She does report mild body aches. Denies any fevers or chills. Reports cough with green sputum production. Denies any chest pain. Denies any abdominal pain or discomfort. Answering all questions appropriately as morning. No other acute concerns. Objective Data Objective Data Vital Signs: Vital Signs Temp Pulse Resp BP Pulse Ox O2 Del Method O2 Flow Rate 98.0 F 99 17 134/74 H 94 Nasal Cannula 3 07/29/23 15:15 07/29/23 15:15 07/29/23 15:15 07/29/23 15:15 07/29/23 15:15 07/29/23 15:21 07/29/23 16:29 FiO2 94 07/29/23 15:21 Oxygen Flow Rate (L/min) 3 Oxygen Delivery Method Nasal Cannula Weight: 90.5 kg Body Mass Index (BMI) 31.2 Intake & Output: Intake and Output for Last 24 Hours 07/27/23 07/28/23 07/29/23 23:59 23:59 23:59 Intake Total 1305 / 1305 987.5 / 987.5 Output Total 200 / 200 Balance 1305 / 1305 787.5 / 787.5 Lab / Micro Data 07/29/23 05:29 07/29/23 05:29 Labs: Laboratory Results - last 24 hr 07/28/23 19:00: WBC 14.6 H, RBC 4.25, Hgb 12.7, Hct 42.4, MCV 99.8 H, MCH 29.9, MCHC 30.0 L, RDW Std Deviation 54.9 H, RDW Coeff of Tessa 14.9 H, Plt Count 354, MPV 10.3, Immature Gran % (Auto) 0.500, Neut % (Auto) 87.7 H, Lymph % (Auto) 4.7 L, [place] % (Auto) 6.7, Eos % (Auto) 0.1, Baso % (Auto) 0.3, Absolute Neuts (auto) 12.7 H, Absolute Lymphs (auto) 0.69 L, Nucleated RBC % 0, Sodium 130 L, Potassium 5.6 H, Chloride 98, Carbon Dioxide 21.0, Anion Gap 11, BUN 29 H, Creatinine 2.31 H, Estim Creat Clear Calc 19.09, Est GFR (MDRD) Af Amer 26 L, Est GFR (MDRD) Non-Af 22 L, BUN/Creatinine Ratio 12.6, Glucose 260 H, Calcium 8.5, Troponin I High Sens 23 07/28/23 19:22: POC Glucose 241 H 07/28/23 19:35: Urine Color Yellow, Urine Clarity Sl. Cloudy, Urine pH 5.0, Ur Specific [place] 1.020, Urine Protein 500 H, Urine Glucose (UA) Normal, Urine Ketones 5 H, Urine Occult Blood 50 H, Urine Nitrite Negative, Urine Bilirubin 1 H, Urine Urobilinogen 4 H, Ur Leukocyte Esterase 25 H, Urine RBC 0-5 SEEN, Urine WBC 0-5 SEEN, Ur Squamous Epith Cells 0 SEEN, Amorphous Sediment 1+, Urine Bacteria 0 SEEN, Urine Mucus 0 SEEN 07/28/23 19:53: Lactic Acid 2.0 07/28/23 23:44: POC Glucose 304 H 07/29/23 00:17: Lactic Acid 1.5 07/29/23 05:29: WBC 15.5 H, RBC 3.42 L, Hgb 10.4 L, Hct 33.8 L, MCV 98.8, MCH 30.4, MCHC 30.8 L, RDW Std Deviation 53.1 H, RDW Coeff of Tessa 14.6, Plt Count 243, MPV 10.2, Immature Gran % (Auto) 0.700, Neut % (Auto) 93.1 H, Lymph % (Auto) 2.8 L, [place] % (Auto) 3.3, Eos % (Auto) 0.0, Baso % (Auto) 0.1, Absolute Neuts (auto) 14.5 H, Absolute Lymphs (auto) 0.43 L, Nucleated RBC % 0, Sodium 133 L, Potassium 4.9, Chloride 103, Carbon Dioxide 23.0, Anion Gap 7, BUN 28 H, Creatinine 2.08 H, Estim Creat Clear Calc 22.03, Est GFR (MDRD) Af Amer 30 L, Est GFR (MDRD) Non-Af 25 L, BUN/Creatinine Ratio 13.5, Glucose 268 H, Calcium 7.6 L 07/29/23 06:12: POC Glucose 239 H 07/29/23 11:30: POC Glucose 310 H Micro: Microbiology 07/28/23 19:35 Urine Catheter - Catheter Legionella Antigen - Final 07/28/23 19:35 Urine Catheter - Catheter Streptococcus pneumoniae Antigen (M - Final 07/28/23 19:20 Nasal Secretion SARS-CoV-2 & FLU Antigen (Rapid) - Final ABG Data ABG results: ABG 07/28/23 20:16 Specimen Type ART Sample Site L Radial pH 7.40 Bicarbonate Actual 17.4 L Total CO2 18 Base Excess -7 L O2 Saturation 92 L ABG pCO2 28.4 L ABG pO2 61 L Ed Test Positive O2 Delivery Device Cannula Vent Mode Not entered Radiography Diagnostic Testing: Radiology Impression Chest X-Ray 07/28/23 19:45 IMPRESSION: Diffuse interstitial prominence is again identified similar to the prior examination perhaps indicating interstitial edema and/or other chronic interstitial changes. Superimposed pneumonia cannot be excluded. Electronically Signed: Phong Franco DO at 20:29 EDT , Physical Exam Const alert, oriented x3 and no apparent distress Constitutional Narrative: Elderly female, chronically ill-appearing, obese, laying comfortably in bed, conversing normally, no acute distress. General Appearance: cooperative and comfortable HEENT normocephalic, head/scalp atraumatic, hearing grossly normal bilaterally, nasal mucous membranes and turbinates normal and moist oral mucous membranes Eyes PERRL, EOMs intact bilaterally and conjunctivae normal Neck full ROM, no lymphadenopathy and supple Lymph Lymphatic: no lymphadenopathy noted Chest inspection of chest normal Resp Resp Narrative: Satting in low 90s on 3 L nasal cannula, no increased work of breathing noted. Mild wheezes noted bilaterally in upper airways. No crackles noted. Cardio regular rate, regular rhythm, no murmurs and peripheral pulses 2+ throughout GI normal to inspection, nondistended, normoactive bowel sounds, soft to palpation, non-tender and non-distended Back/Spine normal ROM Extremity normal to inspection, full ROM and no pedal edema Skin no rashes or lesions noted Psych mental status grossly normal Assessment & Plan Assessment/Plan (1) Acute exacerbation of chronic obstructive pulmonary disease: PLAN: Plan Patient is a 78 female with history of COPD on home 3 L nasal cannula, former smoker, CVA with no residual deficits, type 2 diabetes, hypertension and anxiety/depression who presented to [facility] ED on 07/28/2023 with significant hypoxia. 1. Acute on chronic hypoxic respiratory failure, acute exacerbation of COPD, community-acquired pneumonia with unknown organism, sepsis without shock Met sepsis criteria on admission with Tmax of 101.3 on presentation, RR maximum of 30, heart rate 1 3 to presentation, WBC count 14.6 K, creatinine greater than 2 and lactic acid borderline at 2. Very likely secondary to community-acquired pneumonia in setting of known COPD. Chest x-ray on admit showed diffuse interstitial prominence, superimposed pneumonia cannot be excluded. [place] [employer] with oxygen saturations in mid 60s on room air, had run out of her home oxygen. Significant wheezing on admission. Initiated on ceftriaxone, azithromycin, steroids, scheduled DuoNebs on admission with significant improvement, now satting in low 90s on home 3 L nasal cannula. COVID and flu negative. Urine antigens negative. ? Continue ceftriaxone, azithromycin, steroids, scheduled DuoNebs for now. Monitor CBC daily. Sputum culture and blood cultures pending. Continue home montelukast. 2. BENITO on CKD IIIb Presumed prerenal BENITO in setting of recent poor p.o. intake and mild hypokalemia. Creatinine 2.31 on admit, baseline creatinine around 1.7-1.8. Creatinine improved to 2.08 on 07/29. ? Monitor BMP daily. Treatment as above. 3. Chronic debility Patient lives at home with her spouse, who is blind at baseline. Patient has fairly good functional status at home, is able to drive herself places, manage no medications to get her own groceries. She also notably has plenty of help from her daughters and nephew. ? PT/OT/case management following. Patient has been to TCU in the past, family reporting they want patient to go home on discharge with [facility] home health care. Palliative care consult also placed per family request. Chronic medical conditions: ? Type 2 diabetes: On home glimepiride and pioglitazone. Sliding scale insulin while inpatient. ? Hypertension: Continue home bisoprolol, lisinopril held given BENITO as noted above, restart as able. ? Anxiety/depression: Continue home venlafaxine, bupropion, trazodone at night. ? History of CVA: Continue home aspirin and statin. DVT prophylaxis: Heparin subcu CODE STATUS: Full code, verified Expected disposition: Home with home health care, 1 to 2 days Total clinical time spent by myself addressing the patient's medical issues, reviewing all the data, and collaborating with patient's care team: 35 minutes. Charges/Coding Visit Charges Inpatient E&M: 46345 Subs Hosp L2
[2023-07-29 17:09] LABS: Bedside Glucose 132 mg/dL (74-106)
[2023-07-29] MEDS: Bisoprolol Fumarate 5 MG Tablet PO (17:27)
[2023-07-29] MEDS: Calcium Carbonate 500 MG Tablet PO ×2 (17:56→21:25)
[2023-07-29] MEDS: Acetaminophen 325 MG Tablet 650 MG PO (17:56)
[2023-07-29] MEDS: Albuterol 2.5 MG/3 ML VIAL.NEB. INHALATION (19:23)
[2023-07-29] MEDS: Ceftriaxone 2 GM in 0.9% Normal Saline (50mL MB+) 50 ML IV (20:58)
[2023-07-29] MEDS: traZODone 50 MG Tablet 150 MG PO (21:07)
[2023-07-29] MEDS: Atorvastatin Calcium 10 MG Tablet PO (21:08)
[2023-07-29 21:32] LABS: Bedside Glucose 228 mg/dL (74-106)
[2023-07-29] MEDS: Azithromycin 500 MG in Dextrose 5%-Water (250mL Bag) 250 ML 250 MG IV (22:06)
[2023-07-30] MEDS: 0.9% Normal Saline (1000mL) 1,000 ML 75 ML IV (02:21)
[2023-07-30 04:00] VITALS: PULSE 100; RESP 18; O2SAT 95
[2023-07-30 04:11] VITALS: BP 157/92; PULSE 97; RESP 18; TEMP 36.1; O2SAT 95
[2023-07-30] MEDS: Insulin Lispro 100 UNIT/ML INSULN.PEN SC ×2 (06:47→12:04)
[2023-07-30] MEDS: MethylPREDNISolone 125 MG/2 ML Vial 60 MG IV ×2 (06:48→14:31)
[2023-07-30 07:06] LABS: Bedside Glucose 185 mg/dL (74-106)
[2023-07-30 07:42] VITALS: PULSE 103; RESP 22; O2SAT 92
[2023-07-30] MEDS: Ipratropium 0.5 MG/2.5 ML SOLUTION INHALATION (07:42)
[2023-07-30] MEDS: Cyanocobalamin 500 MCG Tablet 1000 MCG PO (08:15)
[2023-07-30] MEDS: guaiFENesin 600 MG Tablet PO (08:15)
[2023-07-30] MEDS: Aspirin 81 MG TAB.CHEW PO (08:15)
[2023-07-30] MEDS: Ferrous Sulfate 325 MG Tablet PO (08:15)
[2023-07-30] MEDS: Senna/Docusate Sodium 1 Tablet 2 TABLET PO (08:15)
[2023-07-30] MEDS: Montelukast 10 MG Tablet PO (08:16)
[2023-07-30] MEDS: Venlafaxine XR 150 MG Capsule PO (08:16)
[2023-07-30] MEDS: buPROPion (SR) 150 MG Tablet.SA PO (08:16)
[2023-07-30] MEDS: Pantoprazole Sodium 40 MG Tablet PO (08:16)
[2023-07-30] MEDS: Heparin Injection (Vial) 5,000 UNIT/ML VIAL 5000 UNIT SC (08:16)
[2023-07-30] MEDS: Cholecalciferol (Vit D3) 125 MCG CAPSULE (5,000 UNITS) PO (08:16)
[2023-07-30] MEDS: Calcium Carbonate 500 MG Tablet PO (08:20)
[2023-07-30 09:01] LABS: Hematocrit 36.6 % (37-47); Hemoglobin 11.2 g/dL (12.0-15.0); Mean Corp Hgb Conc 30.6 g/dL (32-36); Mean Corpuscular Hgb 29.7 pg (27.0-32.0); Mean Corpuscular Volume 97.1 fL (81-99); Mean Platelet Vol. 10.3 fl (6.2-12.0); Platelet Count 273 K/mm3 (150-450); RBC Distribution Width CV 14.9 % (11.6-14.6); RBC Distribution Width SD 53.1 fl (35.1-43.9); Red Blood Count 3.77 M/mm3 (4.2-5.4); White Blood Count 13.7 K/mm3 (4.4-11.0)
[2023-07-30 09:20] VITALS: BP 159/74; PULSE 102; RESP 18; TEMP 36.5; O2SAT 97
[2023-07-30 09:28] LABS: Anion Gap 8 (5-15); BUN 37 mg/dL (7-18); BUN/Creat Ratio 20.1 RATIO (10-20); Calcium,Total 8.1 mg/dL (8.5-10.1); Chloride 105 mmol/L (98-107); Creatinine, Serum 1.84 mg/dL (0.55-1.02); EST Glomerular Filtration Rate 28 mL/min (>60); Est Glom Filt Rate - Afr Amer 34 mL/min (>60); Glucose 216 mg/dL (74-106); Potassium 4.9 mmol/L (3.5-5.1); Sodium Level 134 mmol/L (136-145)
[2023-07-30 12:23] LABS: Bedside Glucose 222 mg/dL (74-106)
--- NOTE | 2023-07-30 13:11 | DCINST_ITS ---
Discharge Instructions Diet Discharge Diet: No restrictions Activity Discharge Activity: Return to Normal Activity Weight Bearing Status: Full weight bearing Follow Up Care Please Follow Up With: Grady Mckeon DO When: 1 to 2 weeks Test Results: Test results from this visit will be discussed in further detail at your follow- up appointment, if applicable. Pending Tests Upon Discharge: None Discharge Plan Admission Admit Date/Time: 07/28/23 21:25 Attending Provider: Antoni Argueta Primary Care Provider: Grady Mckeon Consulting Providers: Kavin Mcclain Instructions Additional Instructions / Restrictions: Please take azithromycin 500 mg and prednisone 40 mg for 3 more days each for your pneumonia and COPD exacerbation. Continue all other home medications as previously prescribed. Follow-up with your primary care doctor in the next 1 to 2 weeks. The palliative care office will call to schedule an appointment with you soon. Discharge Orders/Prescriptions Prescriptions: New azithromycin 500 mg tablet 500 mg PO DAILY 3 Days Qty: 3 0RF prednisone 20 mg tablet 40 mg PO DAILY 3 Days Qty: 6 0RF Continued bupropion HCl 150 MG tablet sustained-release 12 hr 150 mg PO BID Patient Comments: DEPRESSION lovastatin 40 MG tablet 40 mg PO QHS Patient Comments: REDUCES CHOLESTEROL venlafaxine 150 MG capsule,extended release 24hr 150 mg PO DAILY Patient Comments: MOOD cyanocobalamin (vitamin B-12) [Vitamin B-12] 1,000 MCG tablet 1,000 mg PO DAILY Patient Comments: VITAMIN SUPPLEMENT trazodone 150 MG tablet 150 mg PO QHS Patient Comments: SLEEP aspirin 81 MG tablet,chewable 81 mg PO DAILY@0800 Patient Comments: HEALTH MAINTENANCE montelukast 10 MG tablet 10 mg PO DAILY Patient Comments: ALLERGIES albuterol sulfate [Ventolin HFA] 1 INHALER inhaler 1 - 2 puff inhalation Q4H PRN PRN (Reason: Sob &/Or Wheezing) Qty: 1 0RF omeprazole 40 mg capsule,delayed release(DR/EC) 40 mg PO DAILY bisoprolol fumarate 5 mg tablet 5 mg PO DINNER ferrous sulfate [FeroSul] 325 mg (65 mg iron) tablet 325 mg PO DAILY Patient Comments: TAKE 1 TABLET EVERY DAY losartan 25 mg tablet 25 mg PO DAILY Patient Comments: Take 1 tablet every day by oral route for 30 days. pioglitazone 30 MG tablet 30 mg PO DAILY@0800 cholecalciferol (vitamin D3) 125 mcg (5,000 unit) capsule 125 mcg PO DAILY glimepiride 2 mg tablet 2 mg PO BID Patient Comments: TAKE 1 TABLET BY MOUTH TWICE DAILY oxycodone-acetaminophen 5-325 mg tablet 1 tab PO Q12H PRN (Reason: pain) Patient Comments: TAKE 1 TABLET BY MOUTH EVERY 12 HOURS NEEDED FOR PAIN FOR 30 DAYS Referrals / Follow Up: Grady Mckeon DO [Primary Care Provider] - Disposition Disposition (needs filled in before D/C Order can be placed): Home Health Service
--- NOTE | 2023-07-30 13:15 | PCM.DC.SUM ---
Providers Date of Admission: 07/28/23 Date of Discharge: 07/30/23 Primary Care Physician: Dr. Grady Mckeon, Consultations 07/29/23 07:11 Consult: Onc/Wound/part time receptionist Routine Comment: Reason for Consult:: left ankle wound Reason For Visit: SEPSIS SECONDARY TO PNEUMONIA, COPD EXACERBATION Diagnosis Discharge Diagnosis (1) Acute exacerbation of chronic obstructive pulmonary disease: Status: Chronic Code(s): J44.1 - Chronic obstructive pulmonary disease with (acute) exacerbation Medications at Discharge Home Medications aspirin 81 mg chewable tablet 81 mg PO DAILY@0800 Heart health 12/27/16 bupropion HCl 150 mg tablet,12 hr sustained-release 150 mg PO BID mental health 12/27/16 cyanocobalamin (vitamin B-12) 1,000 mcg tablet (Vitamin B-12) 1,000 mg PO DAILY supplement 12/27/16 lovastatin 40 mg tablet 40 mg PO QHS cholesterol 12/27/16 montelukast 10 mg tablet 10 mg PO DAILY allergies 12/27/16 trazodone 150 mg tablet 150 mg PO QHS insomnia 12/27/16 venlafaxine 150 mg capsule,extended release 24 hr 150 mg PO DAILY depression 12/27/16 albuterol sulfate 90 mcg/actuation aerosol inhaler (Ventolin HFA) 1 - 2 puff inhalation Q4H PRN PRN Sob &/Or Wheezing ##1 12/30/16 bisoprolol fumarate 5 mg tablet 5 mg PO DINNER blood pressure 04/19/21 ferrous sulfate 325 mg (65 mg iron) tablet (FeroSul) 325 mg PO DAILY supplement 04/19/21 omeprazole 40 mg capsule,delayed release 40 mg PO DAILY GERD 04/19/21 losartan 25 mg tablet 25 mg PO DAILY hypertension 01/26/22 pioglitazone 30 mg tablet 30 mg PO DAILY@0800 diabetes 01/26/22 cholecalciferol (vitamin D3) 125 mcg (5,000 unit) capsule 125 mcg PO DAILY Supplement 01/31/22 glimepiride 2 mg tablet 2 mg PO BID diabetes 07/28/23 oxycodone-acetaminophen 5 mg-325 mg tablet 1 tab PO Q12H PRN pain 07/28/23 azithromycin 500 mg tablet 500 mg PO DAILY 3 days #3 tabs 07/30/23 cefdinir 300 mg capsule 300 mg PO BID #10 caps 07/30/23 prednisone 20 mg tablet 40 mg (2 x 20 mg) PO DAILY 3 days #6 tabs 07/30/23 Hospital Course Operations None Procedures - (Chest x-ray) Summary of Care Provided Minutes Spent on Discharge: 38 Hospital Course: Patient is a 78 female with history of COPD on home 3 L nasal cannula, former smoker, CVA with no residual deficits, type 2 diabetes, hypertension and anxiety/depression who presented to [facility] ED on 07/28/2023 with significant hypoxia. Hospital course with multiple medical conditions addressed as noted below. Acute on chronic hypoxic respiratory failure, improved; acute exacerbation of COPD; community-acquired pneumonia with unknown organism; sepsis without shock, improved: Patient met sepsis criteria on admission with Tmax of 101.3 on presentation, RR maximum of 30, heart rate 1 3 to presentation, WBC count 14.6 K, creatinine greater than 2 and lactic acid borderline at 2. Very likely secondary to community-acquired pneumonia in setting of known COPD. Chest x-ray on admit showed diffuse interstitial prominence, superimposed pneumonia cannot be excluded. Patient was found in parked car at [place] with oxygen saturations in mid 60s on room air, had run out of her home oxygen. Significant wheezing on admission. Initiated on ceftriaxone, azithromycin, steroids, scheduled DuoNebs on admission with significant improvement. COVID and flu negative. Urine antigens negative. Sputum and blood cultures also negative. Patient was stable on her home amount of oxygen by discharge. Prescribed azithromycin 500 mg and prednisone 40 mg each for 3 more days to complete 5-day courses on discharge. Continued home long-acting inhalers and short acting inhaler as needed. BENITO on CKD 3B, improved: Presumed prerenal BENITO in setting of recent poor p.o. intake and mild hypokalemia. Creatinine 2.31 on admit, baseline creatinine around 1.7-1.8. Creatinine improved to 1.8 on discharge. Chronic debility: Patient lives at home with her spouse, who is blind at baseline. Patient has fairly good functional status at home, is able to drive herself places, manage her own medications and is able to get her own groceries. She also notably has plenty of help from her daughters and nephew. PT/OT/case management followed. Patient already had home oxygen and home health care set up. Was stable for home with home health care on discharge. Patient family requested a palliative care consultation, however they were unable to meet with palliative care while inpatient and we recommend establishing an appointment with them in the outpatient setting. Discharge diagnoses: ? Acute on chronic hypoxic respiratory failure, improved ? Acute exacerbation of COPD ? Negative for pneumonia with unknown organism ? Sepsis without shock, improved ? BENITO on CKD 3B, resolved ? Chronic debility ? Type 2 diabetes ? Hypertension ? Anxiety/depression ? History of CVA Total clinical time spent by myself addressing the patient's medical issues, reviewing all the data, and collaborating with patient's care team: 38 minutes. Physical Exam Const alert, oriented x3 and no apparent distress Constitutional Narrative: Elderly female, chronically ill-appearing, obese, laying comfortably in bed, conversing normally, no acute distress. General Appearance: cooperative and comfortable HEENT normocephalic, head/scalp atraumatic, hearing grossly normal bilaterally, nasal mucous membranes and turbinates normal and moist oral mucous membranes Eyes PERRL, EOMs intact bilaterally and conjunctivae normal Neck full ROM, no lymphadenopathy and supple Lymph Lymphatic: no lymphadenopathy noted Chest inspection of chest normal Resp Resp Narrative: Satting in low 90s on 3 L nasal cannula, no increased work of breathing noted. Mild wheezes noted bilaterally in upper airways. No crackles noted. Cardio regular rate, regular rhythm, no murmurs and peripheral pulses 2+ throughout GI normal to inspection, nondistended, normoactive bowel sounds, soft to palpation, non-tender and non-distended Back/Spine normal ROM Extremity normal to inspection, full ROM and no pedal edema Skin no rashes or lesions noted Psych mental status grossly normal Weight / BMI Weight Weight: 90.5 kg Body Mass Index (BMI) 31.2 ABG / Lab / Microbiology Data 07/30/23 08:47 07/30/23 08:47 Laboratory: Laboratory Results - last 24 hr 07/29/23 16:43: POC Glucose 132 H 07/29/23 21:04: POC Glucose 228 H 07/30/23 06:46: POC Glucose 185 H 07/30/23 08:47: WBC 13.7 H, RBC 3.77 L, Hgb 11.2 L, Hct 36.6 L, MCV 97.1, MCH 29.7, MCHC 30.6 L, RDW Std Deviation 53.1 H, RDW Coeff of Tessa 14.9 H, Plt Count 273, MPV 10.3, Sodium 134 L, Potassium 4.9, Chloride 105, Carbon Dioxide 21.0, Anion Gap 8, BUN 37 H, Creatinine 1.84 H, Estim Creat Clear Calc 24.90, Est GFR (MDRD) Af Amer 34 L, Est GFR (MDRD) Non-Af 28 L, BUN/Creatinine Ratio 20.1 H, Glucose 216 H, Calcium 8.1 L 07/30/23 12:02: POC Glucose 222 H Microbiology: Microbiology 07/29/23 04:00 Wound - Ankle Gram Stain - Final 07/29/23 04:00 Wound - Ankle Wound Culture - Preliminary Staphylococcus aureus 07/28/23 19:35 Urine Catheter - Catheter Legionella Antigen - Final 07/28/23 19:35 Urine Catheter - Catheter Streptococcus pneumoniae Antigen (M - Final 07/28/23 19:20 Nasal Secretion SARS-CoV-2 & FLU Antigen (Rapid) - Final D/C Instructions Discharge Diet: No restrictions Weight Bearing Status: Full weight bearing Pending Tests Upon Discharge: None Please Follow Up With: Grady Mckeon DO When: 1 to 2 weeks Meaningful Use Info Meaningful Use Diagnoses (Choose all that apply): None applicable Discharge Plan Admission Admit Date/Time: 07/28/23 21:25 Attending Provider: Antoni Argueta Primary Care Provider: Grady Mckeon Consulting Providers: Kavin Mcclain Instructions Additional Instructions / Restrictions: Please take azithromycin 500 mg and prednisone 40 mg for 3 more days each for your pneumonia and COPD exacerbation. Continue all other home medications as previously prescribed. Follow-up with your primary care doctor in the next 1 to 2 weeks. The palliative care office will call to schedule an appointment with you soon. Discharge Orders/Prescriptions Prescriptions: New azithromycin 500 mg tablet 500 mg PO DAILY 3 Days Qty: 3 0RF prednisone 20 mg tablet 40 mg PO DAILY 3 Days Qty: 6 0RF cefdinir 300 mg capsule 300 mg PO BID Qty: 10 0RF Continued bupropion HCl 150 MG tablet sustained-release 12 hr 150 mg PO BID Patient Comments: DEPRESSION lovastatin 40 MG tablet 40 mg PO QHS Patient Comments: REDUCES CHOLESTEROL venlafaxine 150 MG capsule,extended release 24hr 150 mg PO DAILY Patient Comments: MOOD cyanocobalamin (vitamin B-12) [Vitamin B-12] 1,000 MCG tablet 1,000 mg PO DAILY Patient Comments: VITAMIN SUPPLEMENT trazodone 150 MG tablet 150 mg PO QHS Patient Comments: SLEEP aspirin 81 MG tablet,chewable 81 mg PO DAILY@0800 Patient Comments: HEALTH MAINTENANCE montelukast 10 MG tablet 10 mg PO DAILY Patient Comments: ALLERGIES albuterol sulfate [Ventolin HFA] 1 INHALER inhaler 1 - 2 puff inhalation Q4H PRN PRN (Reason: Sob &/Or Wheezing) Qty: 1 0RF omeprazole 40 mg capsule,delayed release(DR/EC) 40 mg PO DAILY bisoprolol fumarate 5 mg tablet 5 mg PO DINNER ferrous sulfate [FeroSul] 325 mg (65 mg iron) tablet 325 mg PO DAILY Patient Comments: TAKE 1 TABLET EVERY DAY losartan 25 mg tablet 25 mg PO DAILY Patient Comments: Take 1 tablet every day by oral route for 30 days. pioglitazone 30 MG tablet 30 mg PO DAILY@0800 cholecalciferol (vitamin D3) 125 mcg (5,000 unit) capsule 125 mcg PO DAILY glimepiride 2 mg tablet 2 mg PO BID Patient Comments: TAKE 1 TABLET BY MOUTH TWICE DAILY oxycodone-acetaminophen 5-325 mg tablet 1 tab PO Q12H PRN (Reason: pain) Patient Comments: TAKE 1 TABLET BY MOUTH EVERY 12 HOURS NEEDED FOR PAIN FOR 30 DAYS Referrals / Follow Up: Grady Mckeon DO [Primary Care Provider] - 08/05/23 1:30 pm Disposition Disposition (needs filled in before D/C Order can be placed): Home Health Service Charges/Coding Visit Charges Inpatient E&M: 17149 Disch Hosp >30min
[2023-07-30 15:11] VITALS: BP 143/80; PULSE 102; RESP 18; TEMP 36.8; O2SAT 95
--- NOTE | 2023-07-30 17:00 | CASEMGMT ---
MIRZA HODGES NOTE: Received e-mail from Pratik @ [facility] palliative, stating that daughter called in and cancelled the palliative referral for 07/30. She also stated daughter did agree to a call in a couple weeks to see how she is doing and if they are interested in palliative services at that time. Suzette LOVE RN CM
== END 2023-07-30 17:23 | disposition home health service (06) | DRG 871 ==
LOC: ED 20:15 → PCU 21:41
PROVIDERS: Physician Assistant; Admitting Provider Hospitalist; Emergency Provider Emergency Medicine; PCP Preventive Medicine Occupational Medicine; Visit Provider Hospitalist
DX: A41.9 Sepsis, unspecified organism (principal); J18.9 Pneumonia, unspecified organism; J96.21 Acute and chronic respiratory failure with hypoxia; N17.9 Acute kidney failure, unspecified; E11.22 Type 2 diabetes mellitus with diabetic chronic kidney disease; J43.9 Emphysema, unspecified; N18.32 Chronic kidney disease, stage 3b; E11.65 Type 2 diabetes mellitus with hyperglycemia; R65.20 Severe sepsis without septic shock; I12.9 Hypertensive chronic kidney disease with stage 1 through stage 4 chronic kidney disease, or unspecified chronic kidney disease; F32.A Depression, unspecified; E78.5 Hyperlipidemia, unspecified; E87.6 Hypokalemia; F41.9 Anxiety disorder, unspecified; R53.81 Other malaise; Z11.52 Encounter for screening for COVID-19; Z79.82 Long term (current) use of aspirin; Z79.84 Long term (current) use of oral hypoglycemic drugs; Z99.81 Dependence on supplemental oxygen; Z86.73 Personal history of transient ischemic attack (TIA), and cerebral infarction without residual deficits; Z87.891 Personal history of nicotine dependence
CPT/HCPCS: 36415; 36600; 71045; 80048; 81001; 82803; 82962; 83605; 84484; 85025; 85027; 87040; 87070; 87077; 87186; 87205; 87428; 87449; 93005; 94640; 97116; 97162; 97166; 97530; 97535; 97802; 99285; J7030; P9612; A4216; J0696

== ENCOUNTER → 2023-11-11 | Outpatient (CLI) | payer MEDICARE, SELFPAY ==
--- OUTSIDE RECORDS SUMMARY | 2023-11-11 10:54 | XMS RPT_ITS | CCD ---
Author Name Unknown Address [address] [place] [id number] Organization [facility] Care Team Providers Care Clinical Psychologist Private Practice Name Role Phone AVILA BURKE Antony Unavailable Unavailable DANILO ONEILL Unavailable Unavailable DANILO ONEILL Unavailable Unavailable DANILO ONEILL DO Attending Unavailable DANILO ONEILL DO Primary Care Unavailable Problems Active Problems Problem Classification Problem Date Documented Da te Episodic/Chronic Unclassified (1 source) Unknown / UNK(Unknown) Onset: 04-12-2017 Past or Other Problems Problem Classification Problem Date Documented Da te Episodic/Chronic Unclassified (1 source) ACCIDENTAL FALL//WRIST PAIN Onset: 04-12-2017 Results Test Name Value Interpretation Reference Range Facil ity Encounters Encounter Date Encounter Type Care Provider Facility Start: 09-24-2022 ambulatory DANILO ONEILL DO Facil ity:A Start: 04-12-2017 End: 04-12-2017 Emergency department patient visit BURKEIVY GRAMAJO Facility:[facility] Payers Date Payer Category Payer Private Health Insurance 101 [id number] 2017 Private Health Insurance [id number] Unknown [id number] Summary Purpose Family History No Family History Records FoundNo Family History Records Found Advance Directives No Advanced Directives Records FoundNo Advanced Directives Records Found Additional Source Comments INFORMATION SOURCE (unrecogn ized section and content) DATE CREATED AUTHOR AUTHOR'S NELIA MARSH 03/24/2023 [facility] [place] ([place]) FOR RECORDS PERTAINING TO PATIENTS WHO ARE OR HAVE BEEN ENROLLED IN A CHEMICAL DEPENDENCY/SUBSTANCEABUSE PROGRAM, SOME INFORMATION MAY BE OMITTED. This clinical summary was aggregated from multiple sources. Caution should be exercised in using it in the provision of clinical care. This summary normalizes information from multiple sources, and as a consequence, information in this document may materially change the coding, format and clinical context of patient data. In addition, data may be omitted in some cases. CLINICAL DECISIONS SHOULD BE BASED ON THE PRIMARY CLINICAL RECORDS. [facility]. provides no warranty or guarantee of the accuracy or completeness of information in this document.
[2023-11-11 11:23] LABS: Anion Gap 3 (5-15); BUN 25 mg/dL (7-18); BUN/Creat Ratio 16.6 RATIO (10-20); Calcium,Total 9.1 mg/dL (8.5-10.1); Chloride 109 mmol/L (98-107); Creatinine, Serum 1.51 mg/dL (0.55-1.02); EST Glomerular Filtration Rate 36 mL/min (>60); Est Glom Filt Rate - Afr Amer 43 mL/min (>60); Glucose 133 mg/dL (74-106); Potassium 5.3 mmol/L (3.5-5.1); Sodium Level 137 mmol/L (136-145)
== END | disposition home or self-care (01) ==
LOC: LAB 10:22
PROVIDERS: PCP Preventive Medicine Occupational Medicine; Referring Provider Internal Medicine Nephrology; Visit Provider Internal Medicine Nephrology
DX: N18.4 Chronic kidney disease, stage 4 (severe) (principal)
CPT/HCPCS: 36415; 80048

== ENCOUNTER → 2023-11-18 | Outpatient (CLI) | payer MEDICARE, SELFPAY ==
[2023-11-18 15:24] LABS: Hematocrit 30.5 % (37-47); Hemoglobin 8.8 g/dL (12.0-15.0); Mean Corp Hgb Conc 28.9 g/dL (32-36); Mean Corpuscular Volume 100.7 fL (81-99); Mean Platelet Vol. 11.1 fl (6.2-12.0); Platelet Count 145 K/mm3 (150-450); RBC Distribution Width CV 15.1 % (11.6-14.6); RBC Distribution Width SD 55.8 fl (35.1-43.9); Red Blood Count 3.03 M/mm3 (4.2-5.4); White Blood Count 6.6 K/mm3 (4.4-11.0)
[2023-11-18 15:39] LABS: Vitamin D,25 Hydroxy 63.5 ng/mL
[2023-11-18 15:52] LABS: PTHIN 111.4 pg/mL (18.4-80.1)
== END | disposition home or self-care (01) ==
LOC: POLAB3 13:38
PROVIDERS: PCP Preventive Medicine Occupational Medicine; Visit Provider Internal Medicine Nephrology
DX: N18.32 Chronic kidney disease, stage 3b (principal); E21.1 Secondary hyperparathyroidism, not elsewhere classified; D50.9 Iron deficiency anemia, unspecified
CPT/HCPCS: 36415; 82306; 83970; 85027

== ENCOUNTER 2024-02-29 13:01 | Inpatient (IN) | payer MEDICARE, SELFPAY ==
[2024-02-29] VITALS (10 sets, daily range): BP systolic 139–161; BP diastolic 68–86; PULSE 78–105; RESP 16–18; TEMP 36.2–37; O2SAT 85–99; BMI 21.9; BMI 26.4
--- NOTE | 2024-02-29 13:37 | EDS_ITS ---
HPI HPI - GI History of Present Illness Chief Complaint: Abd Pain Informant: patient Narrative Narrative: 78-year-old female presenting to the emergency room with 3 to 4 days of right upper quadrant epigastric pain. She describes it as sharp and intermittent. No vomiting or diarrhea. She states she has not had a bowel movement for 1 week. She denies any fevers. She denies any symptoms like this before. Pain is nonradiating in nature. She has a history of COPD is oxygen dependent between 3 to 4 L. She denies any change in breathing or cough. She denies any jaundice. No known liver issues. No urinary symptoms. [facility] Medical History Diabetes mellitus Anxiety Depression Former smoker Stroke/cerebrovascular accident Hypertension CKD (chronic kidney disease) Diabetes Emphysema of lung COPD (chronic obstructive pulmonary disease) Hypertension Diabetes mellitus Home Medications ?Medication ?Instructions ?Recorded ?Last Taken ?Type aspirin 81 mg chewable tablet 81 mg PO DAILY@0800 Heart health 12/27/16 07/28/23 History bupropion HCl 150 mg tablet,12 hr 150 mg PO BID mental health 12/27/16 07/28/23 History sustained-release cyanocobalamin (vitamin B-12) 1,000 mg PO DAILY supplement 12/27/16 07/28/23 History 1,000 mcg tablet (Vitamin B-12) lovastatin 40 mg tablet 40 mg PO QHS cholesterol 12/27/16 07/27/23 History montelukast 10 mg tablet 10 mg PO DAILY allergies 12/27/16 07/28/23 History trazodone 150 mg tablet 150 mg PO QHS insomnia 12/27/16 07/27/23 History venlafaxine 150 mg 150 mg PO DAILY depression 12/27/16 07/28/23 History capsule,extended release 24 hr albuterol sulfate 90 mcg/actuation 1 - 2 puff inhalation Q4H PRN PRN 12/30/16 01/19/20 Rx aerosol inhaler (Ventolin HFA) Sob &/Or Wheezing ##1 bisoprolol fumarate 5 mg tablet 5 mg PO DINNER blood pressure 04/19/21 07/27/23 History ferrous sulfate 325 mg (65 mg 325 mg PO DAILY supplement 04/19/21 07/28/23 History iron) tablet (FeroSul) losartan 25 mg tablet 25 mg PO DAILY hypertension 01/26/22 07/28/23 History pioglitazone 30 mg tablet 30 mg PO DAILY@0800 diabetes 01/26/22 07/28/23 History cholecalciferol (vitamin D3) 125 125 mcg PO DAILY Supplement 01/31/22 07/28/23 History mcg (5,000 unit) capsule glimepiride 2 mg tablet 2 mg PO BID diabetes 07/28/23 07/28/23 History oxycodone-acetaminophen 5 mg-325 1 tab PO Q12H PRN back pain 07/28/23 07/28/23 History mg tablet aripiprazole 10 mg tablet 10 mg PO DAILY 02/29/24 Unknown History esomeprazole magnesium 40 mg 40 mg PO DAILY 02/29/24 Unknown History capsule,delayed release nystatin 100,000 unit/gram topical 1 applic topical BID UNDER BREAST 02/29/24 Unknown History cream Allergy/AdvReac Type Severity Reaction Status Date / Time No Known Allergies Allergy Verified 02/29/24 13:06 Family History Other Diabetes Heart disease Surgical History Status post open reduction with internal fixation (ORIF) of fracture of ankle Social History household members: spouse Smoking Status: Former smoker alcohol intake: never substance use type: does not use ROS ROS ED Constitutional Constitutional ED: Denies chills, fever(s) or weight loss Eyes Eyes: Denies change in vision or diplopia ENT ENT ED: Denies ear pain, rhinorrhea or sore throat Cardiovascular Cardiovascular: Denies chest pain, orthopnea, palpitations or racing heartbeat Respiratory/Chest Respiratory/Chest: Denies cough, dyspnea or orthopnea Gastrointestinal Gastrointestinal: Reports abdominal pain and constipation; Denies diarrhea, nausea or vomiting Genitourinary Genitourinary ED: Denies dysuria, hematuria or urinary frequency Musculoskeletal Musculoskeletal: Denies arthralgias, back pain, myalgias or neck pain Integumentary Reports other Details: Itchy skin ; Denies abscess or rash Neurologic Neurologic: Denies headache(s) or weakness Psychiatric Psychiatric: Denies anxiety, depression, suicidal ideation or suicidal thoughts Endocrine Endocrinology: Denies polydipsia, polyphagia or polyuria Hematologic/Lymphatic Hematologic/Lymphatic: Reports other Allergic/Immunologic Allergic/Immunologic ED: Denies mouth swelling, tongue swelling or urticaria EXAM Physical Exam Const Vital Signs: 02/29/24 13:02 02/29/24 14:06 02/29/24 15:00 Temperature 97.4 F L Temperature Source Temporal Pulse Rate 105 H 95 92 Respiratory Rate 18 16 18 Respiratory Effort Respiratory Pattern Blood Pressure 158/74 H 161/78 H 139/85 H Blood Pressure Mean 102 105 103 Pulse Ox 85 98 96 Oxygen Delivery Method Nasal Cannula Nasal Cannula Oxygen Flow Rate (L/min) 4 3 02/29/24 15:33 02/29/24 16:00 02/29/24 16:39 Temperature Temperature Source Pulse Rate 80 78 Respiratory Rate 16 16 Respiratory Effort Short of Breath Respiratory Pattern Normal Blood Pressure 146/86 H 143/80 H Blood Pressure Mean 106 101 Pulse Ox 99 98 Oxygen Delivery Method Room Air Room Air Oxygen Flow Rate (L/min) Positive well nourished and well developed General Appearance ED: well developed HEENT Reports normocephalic, head/scalp atraumatic and moist mucous membranes Eyes PERRL and EOMs intact bilaterally General Eye ED: Yes scleral icterus Neck no lymphadenopathy, supple and no JVD Resp normal respiratory effort Auscultation: wheezes throughout (Faint expiratory wheezes are heard b ilaterally. Patient states that this is not abnormal for her) Cardio regular rate, regular rhythm and no murmurs Rate: tachycardic GI GI Narrative: Patient reports tenderness to palpation along the transverse colon. There are very active bowel sounds. The abdomen is soft. No guarding or rebound. Inspection: Negative for abdominal distention Auscultation: normoactive bowel sounds Palpation: soft and tender; Negative for guarding, rigid, hepatomegaly, splenomegaly, hernia or mass Back/Spine no CVA tenderness and normal ROM Extremity normal to inspection General Extremety ED: Negative for edema General Extremity: Negative for edema Neuro oriented x3 and CN's II-XII intact bilaterally Sensorium / Orientation: alert Motor Exam: strength 5/5 throughout Psych mental status grossly normal Mood & Affect: Negative for depressed or tearful Skin no rashes or lesions noted and no wounds General Skin Exam: jaundice MDM MDM MDM Narrative Medical decision making narrative: Differential diagnosis includes but not limited to colitis, cholecystitis/choledocholithiasis, pancreatitis, malignancy, enteritis acute hepatitis. White count returned slightly elevated at 12 hemoglobin 10.9 and platelet count 226. Creatinine 2.06 with a BUN of 41. Elevated liver enzymes of AST and ALT of 211 283 respectively. ALK Amy of 697. Lipase of 81 total bilirubin of 6 with a direct bilirubin 4.58. A gallbladder ultrasound was obtained which demonstrates a common bile duct at 0.54 mm. There is cholelithiasis. Case was discussed with general surgery who is requested a CT abdomen pelvis. The read by radiology is consistent with choledocholithiasis with a distal common bile duct stone. My independent interpretation of the plain film chest x-ray is no acute process. Patient received IV fluids Dilaudid Zofran and Zosyn. Our plan is admission to hospital for further care. History & Record Review Discussion w/independent historian: Patient Additional record(s) reviewed:: Prior ED visit and Prior labs Lab Data Attestation: I reviewed the patient's lab results. Labs: Laboratory Results - last 24 hr 02/29/24 02/29/24 13:41 16:35 WBC 12.0 H RBC 3.58 L Hgb 10.9 L Hct 34.4 L MCV 96.1 MCH 30.4 MCHC 31.7 L RDW Std Deviation 49.3 H RDW Coeff of Tessa 14.1 Plt Count 226 MPV 10.2 Immature Gran % (Auto) 2.300 H Neut % (Auto) 89.1 H Lymph % (Auto) 3.0 L Atkinson % (Auto) 5.2 Eos % (Auto) 0.1 Baso % (Auto) 0.3 Absolute Neuts (auto) 10.7 H Absolute Lymphs (auto) 0.36 L Nucleated RBC % 0 Sodium 127 L Potassium 4.6 Chloride 99 Carbon Dioxide 21.0 Anion Gap 7 BUN 41 H Creatinine 2.06 H Estim Creat Clear Calc 22.24 Est GFR (MDRD) Af Amer 30 L Est GFR (MDRD) Non-Af 25 L BUN/Creatinine Ratio 19.9 Glucose 349 H Calcium 9.0 Total Bilirubin 6.00 H Direct Bilirubin 4.58 H AST 211 H ALT 283 H Alkaline Phosphatase 697 H Total Protein 7.1 Albumin 2.4 L Globulin 4.7 H Lipase 81 H POC Glucose 253 H Radiography Diagnostic Testing: Clinical Impression(s) from Imaging Studies Chest X-Ray 02/29/24 13:55 IMPRESSION: There are no acute findings. Electronically Signed: Juan M Prather MD at 14:14 EDT , Gallbladder Ultrasound 02/29/24 14:14 IMPRESSION: GALLSTONES Note: Renal size measurements and size measurements of other organs etc may vary depending on modality and nuclear plant equipment operator dependent variations in measurements. (i.e. Measuring a kidney on an US does not correlate with an exact same measurement on a CT.) Electronically Signed: Juan M Prather MD at 15:30 EDT , Abdomen/Pelvis CT 02/29/24 16:12 IMPRESSION: (NOT LISTED IN ORDER OF SIGNIFICANCE) Choledocholithiasis. Bilateral pneumonia. There is a solitary gallstone. Constipation. Other findings as above. Electronically Signed: Juan M Prather MD at 16:55 EDT , Management Discussion w/another healthcare provider: Hospitalist (Dr. Rodríguez) and Environmental Projects Advisor (Dr. Nagel) Discharge Plan Dx/Rx/DC Orders Clinical Impression: Jaundice, Choledocholithiasis, Abdominal pain, acute, Chronic obstructive pulmonary disease (COPD), CKD stage 4 due to type 1 diabetes mellitus Disposition Disposition: [facility]
[2024-02-29] MEDS: Ondansetron 4 MG/2 ML Vial IV (13:44)
[2024-02-29] MEDS: Morphine 4 MG/ML Syringe 2 MG IV (13:44)
[2024-02-29] MEDS: 0.9% Normal Saline (1000mL) 1,000 ML 999 ML IV (13:44)
[2024-02-29 13:48] LABS: Absolute Lymphocyte Count 0.36 X10^3/uL (0.83-4.51); Absolute Neutrophil Count 10.7 X10^3/uL (2.0-7.7); Basophil# 0.04 X10^3/uL; Basophil% 0.3 % (0-1); Eosinophil# 0.01 X10^3/uL; Eosinophils% 0.1 % (0-5); Hematocrit 34.4 % (37-47); Hemoglobin 10.9 g/dL (12.0-15.0); Lymphocyte # 0.36 X10^3/ul (0.83-4.51); Mean Corp Hgb Conc 31.7 g/dL (32-36); Mean Corpuscular Hgb 30.4 pg (27.0-32.0); Mean Corpuscular Volume 96.1 fL (81-99); Mean Platelet Vol. 10.2 fl (6.2-12.0); Monocyte# 0.62 X10^3/uL; Monocyte% 5.2 % (0-10); NRBC Flagged by Analyzer 0 % (0-5); Neutrophil # 10.66 X10^3/uL (2.7-7.7); Neutrophil % 89.1 % (47-70); POSITIVE DIFFERENTIAL YES; Platelet Count 226 K/mm3 (150-450); RBC Distribution Width CV 14.1 % (11.6-14.6); RBC Distribution Width SD 49.3 fl (35.1-43.9); Red Blood Count 3.58 M/mm3 (4.2-5.4)
--- NOTE | 2024-02-29 13:55 | RAD_ITS ---
STUDY: XR Chest 1 View 02/29/2024 1:52 PM REASON FOR EXAM: Female, 78 years old. copd COMPARISON: None TECHNIQUE: XR Chest 1 View FINDINGS: There is no demonstrated pleural abnormality. Normal heart size. Normal mediastinum. Normal ninfa. Prominent appearing increased interstitial lung markings. Normal visualized pulmonary arteries. There is atherosclerotic calcification of the aortic arch with tortuosity. There are diffuse degenerative changes of the visualized thoracic spine. There is degenerative osteoarthritis of the bilateral shoulders. There are no acute findings of the upper abdomen. RAD/Chest 1 View (Portable) IMPRESSION: There are no acute findings. Electronically Signed: Juan M Prather MD at 14:14 EDT ,
[2024-02-29 14:10] LABS: AST(SGOT) 211 U/L (15-37); Alanine Aminotransfer ALT/SGPT 283 U/L (13-56); Albumin, Serum 2.4 g/dL (3.2-5.0); Alkaline Phosphatase 697 U/L (45-117); Anion Gap 7 (5-15); BUN 41 mg/dL (7-18); BUN/Creat Ratio 19.9 RATIO (10-20); Bilirubin, Direct 4.58 mg/dL (0.00-0.30); Chloride 99 mmol/L (98-107); Creatinine, Serum 2.06 mg/dL (0.55-1.02); EST Glomerular Filtration Rate 25 mL/min (>60); Est Glom Filt Rate - Afr Amer 30 mL/min (>60); Estimated Creatinine Clearance 22.24 ml/min; Globulin 4.7 g/dL (2.2-4.2); Glucose 349 mg/dL (74-106); Lipase 81 U/L (13-75); Potassium 4.6 mmol/L (3.5-5.1); Protein, Total 7.1 g/dL (6.4-8.2); Sodium Level 127 mmol/L (136-145)
--- NOTE | 2024-02-29 14:14 | US_ITS ---
STUDY: ABDOMINAL ULTRASOUND - RIGHT UPPER QUADRANT REASON FOR VISIT: Female, 78 years old. ABDOMEN PAIN abdominal pain elevated LFTs TECHNIQUE: Ultrasound evaluation of the right upper quadrant was performed with real-time and static brunner-scale imaging. TECHNICAL QUALITY: Adequate. COMPARISON: None FINDINGS: Liver: There is normal echogenicity of the liver. The bile ducts are within normal limits. There is hepatic color flow. The direction of portal flow is hepatopetal. There is no demonstrated mass lesion. Gallbladder: Normal distended gallbladder. The gallbladder wall measures 4 mm. There is a negative sonographic Nixon''s sign. There is no pericholecystic fluid. There is a solitary echogenic gallstone within the gallbladder. Common Bile Duct (C.B.D.): The common bile duct measures ( in mm): 5.4 Pancreas: Normal size of the head, body of the pancreas. There is normal echogenicity of the pancreas. There is no demonstrated pancreatic mass or cyst. Right Kidney: Normal size of the right kidney. The right kidney measures 8.2 cm. . Normal renal cortex. There is no demonstrated renal mass or cyst. There is no right hydronephrosis. Aorta: It is not visualized. There is too much overlying bowel gas. . US/Gallbladder IMPRESSION: GALLSTONES Note: Renal size measurements and size measurements of other organs etc may vary depending on modality and [employer] operator dependent variations in measurements. (i.e. Measuring a kidney on an US does not correlate with an exact same measurement on a CT.) Electronically Signed: Juan M Prather MD at 15:30 EDT ,
[2024-02-29] MEDS: Piperacil/Tazobactam 4.5 GM in 0.9% Normal Saline (100mL MB+) 100 ML IV (15:39)
[2024-02-29] MEDS: HYDROmorphone 0.5 MG/0.5 ML SYRINGE IV (15:53)
--- NOTE | 2024-02-29 16:12 | CT_ITS ---
STUDY: CT Abdomen And Pelvis W/ Contrast Injection 02/29/2024 4:52 PM REASON FOR EXAM: Female, 78 years old. Abdominal pain PAIN Individualized dose optimization techniques were used for this CT. COMPARISON: None. TECHNIQUE: CT Abdomen And Pelvis W/ Contrast Injection IV 60mL [id number] FINDINGS: There are atherosclerotic calcifications of visualized coronary arteries. Bilateral lower lobe infiltrates. Degenerative findings in the hips. Normal liver. Single stone in the dependent portion of the gallbladder measuring 13 mm. Normal spleen. There is diffuse atrophy of the pancreas. There is dilation of the common bile duct. A common bile duct stone is noted measuring 14 mm. This is in the distal common bile duct. The CBD diameter is 10 mm. Normal bilateral adrenal glands. No acute findings of the right kidney. No acute findings of the left kidney. Normal visualized stomach. Normal small intestine. Stool throughout the colon. There is non-visualization of the appendix. There are calcifications of the abdominal aorta. This is consistent for atherosclerotic disease. There is NO abdominal aortic aneurysm. Vascular workup can be obtained based on clinical correlation. Normal inferior vena cava. Subcentimeter mesenteric lymph nodes. Normal urinary bladder. There is atrophy of the uterus. There is a right-sided inguinal hernia containing adipose tissue. There are diffuse degenerative changes of the visualized lumbar spine. There is bilateral neural foraminal stenosis at L4-5 and L5-S1. CT/Abdomen/Pelvis W IV Cont ONLY IMPRESSION: (NOT LISTED IN ORDER OF SIGNIFICANCE) Choledocholithiasis. Bilateral pneumonia. There is a solitary gallstone. Constipation. Other findings as above. Electronically Signed: Juan M Prather MD at 16:55 EDT ,
[2024-02-29 16:55] LABS: Bedside Glucose 253 mg/dL (74-106)
--- NOTE | 2024-02-29 17:02 | PCM.HP.STD ---
HPI - General General Date of Admission: 02/29/24 Date of Service: 02/29/24 Chief Complaint: Abdominal pain. HPI Narrative The patient is a 78 y/o F w/ PMHx: Chronic anemia, CKD stage IV per GFR trending, Anxiety and Depression, Diabetes mellitus type II, COPD w/ Chronic Hypoxic Respiratory Failure (4L NC), Former tobacco use, Hx TIA/CVA, HTN, HLD who presents to the [facility] ED on 02/29/24 with history of 3 to 4 days of epigastric and right upper quadrant discomfort noted to be sharp, intermittent with nausea with no emesis or loose stools with unfortunately last bowel movement approximately 1 week prior with no fevers or chills with no previous symptoms like this previously and noted to be nonradiating in nature. She notes her pain currently in the ED upon evaluation is more dull aching specifically noting 2-3 out of 10 in severity but after she has eaten especially things fatty she notes the pain was worse and more sharp in nature rating it 6-8 out of 10 in severity. Workup in the ED included T97.4, heart 105, BP 158/74, respiratory rate 18, initially 85% on 4 L nasal cannula noted to chronically be on 4L, most recent repeat vitals heart rate 95, BP 161/78, respiratory rate 16, 98% on 3 L nasal cannula, CBC with WBC 12, hemoglobin 10.9, MCV 96.1, platelet 226 with left shift and lymphopenia, CMP with sodium 127, BUN/creatinine 41/2.06, GFR 25, glucose 349, T. bili 6.0, D bili 4.58, AST/LT 211/23, alk phos 697, lipase 81, chest x-ray with no acute cardiopulmonary findings, GB US with noted distended gallbladder with wall measuring 4 mm, negative sonographic Nixon sign with no pericholecystic fluid however there is solitary echoic gallstone within the gallbladder, common bile duct measures 5.4 mm, CT abdomen and pelvis with choledocholithiasis, solitary gallstone, evidence of constipation and bilateral lower lobe infiltrates. In the ED patient ministered 1 L normal saline, morphine 2 mg IV x 1, Zofran 4 mg IV x 1, Dilaudid 0.5 mg IV x 1 and IV Zosyn 4.5 g IV x 1. ED reviewed case with Dr. Nagel. [facility] Medical History (Updated 02/29/24 @ 17:[address] Marsha Rodríguez MD) Iron deficiency anemia Chronic anemia CKD (chronic kidney disease), stage IV Chronic hypoxic respiratory failure, on home oxygen therapy Hyperlipidemia Anxiety and depression Diabetes mellitus Former smoker Stroke/cerebrovascular accident Hypertension CKD (chronic kidney disease) Emphysema of lung COPD (chronic obstructive pulmonary disease) Home Medications ?Medication ?Instructions ?Recorded ?Last Taken ?Type aspirin 81 mg chewable tablet 81 mg PO DAILY@0800 Heart health 12/27/16 07/28/23 History bupropion HCl 150 mg tablet,12 hr 150 mg PO BID mental health 12/27/16 07/28/23 History sustained-release cyanocobalamin (vitamin B-12) 1,000 mg PO DAILY supplement 12/27/16 07/28/23 History 1,000 mcg tablet (Vitamin B-12) lovastatin 40 mg tablet 40 mg PO QHS cholesterol 12/27/16 07/27/23 History montelukast 10 mg tablet 10 mg PO DAILY allergies 12/27/16 07/28/23 History trazodone 150 mg tablet 150 mg PO QHS insomnia 12/27/16 07/27/23 History venlafaxine 150 mg 150 mg PO DAILY depression 12/27/16 07/28/23 History capsule,extended release 24 hr albuterol sulfate 90 mcg/actuation 1 - 2 puff inhalation Q4H PRN PRN 12/30/16 01/19/20 Rx aerosol inhaler (Ventolin HFA) Sob &/Or Wheezing ##1 bisoprolol fumarate 5 mg tablet 5 mg PO DINNER blood pressure 04/19/21 07/27/23 History ferrous sulfate 325 mg (65 mg 325 mg PO DAILY supplement 04/19/21 07/28/23 History iron) tablet (FeroSul) losartan 25 mg tablet 25 mg PO DAILY hypertension 01/26/22 07/28/23 History pioglitazone 30 mg tablet 30 mg PO DAILY@0800 diabetes 01/26/22 07/28/23 History cholecalciferol (vitamin D3) 125 125 mcg PO DAILY Supplement 01/31/22 07/28/23 History mcg (5,000 unit) capsule glimepiride 2 mg tablet 2 mg PO BID diabetes 07/28/23 07/28/23 History oxycodone-acetaminophen 5 mg-325 1 tab PO Q12H PRN back pain 07/28/23 07/28/23 History mg tablet aripiprazole 10 mg tablet 10 mg PO DAILY 02/29/24 Unknown History esomeprazole magnesium 40 mg 40 mg PO DAILY 02/29/24 Unknown History capsule,delayed release nystatin 100,000 unit/gram topical 1 applic topical BID UNDER BREAST 02/29/24 Unknown History cream Allergy/AdvReac Type Severity Reaction Status Date / Time No Known Allergies Allergy Verified 02/29/24 13:06 Family History Mother Diabetes Heart disease Hypertension Father Diabetes Heart disease Hypertension Surgical History Status post open reduction with internal fixation (ORIF) of fracture of ankle Social History household members: spouse Smoking Status: Former smoker how long ago did patient quit smoking: Smoked 2 ppd until ~ 10 years ago since teen until quit. alcohol intake: never substance use type: does not use ROS ROS Narrative Admission Review of Systems: CONSTITUTIONAL: No weight loss, fever, chills, + weakness or fatigue. HEENT: Eyes: No visual loss, blurred vision, double vision or yellow sclerae. Ears, Nose, Throat: No hearing loss, sneezing, congestion, runny nose or sore throat. SKIN: No rash or itching, lesions, wounds except + very staged ecchymoses, abrasions, bilateral lower extremity stasis skin changes. CARDIOVASCULAR: No chest pain, chest pressure or chest discomfort, palpitations, edema, orthopnea, syncopal events. RESPIRATORY: No shortness of breath, cough or sputum, wheezing, hemoptysis. GASTROINTESTINAL: + Anorexia, nausea without emesis, abdominal pain, constipation. No diarrhea, melena, BRBPR. GENITOURINARY: No dysuria, frequency, urgency or retention. NEUROLOGICAL: No headache, dizziness, syncope, paralysis, ataxia, numbness or tingling in the extremities, focal weakness, change in bowel or bladder control, seizure. MUSCULOSKELETAL: + muscle, back pain, joint pain or stiffness. HEMATOLOGIC: + Chronic anemia, easy bleeding/bruising. LYMPHATICS: No enlarged nodes. No history of splenectomy. PSYCHIATRIC: + History of anxiety and depression. ENDOCRINOLOGIC: No reports of sweating, cold or heat intolerance. No polyuria or polydipsia. ALLERGIES: + History of allergic rhinitis. Vital Signs Vital Signs Vital Signs: 02/29/24 13:02 02/29/24 14:06 02/29/24 15:00 Temperature 97.4 F L Temperature Source Temporal Pulse Rate 105 H 95 92 Respiratory Rate 18 16 18 Respiratory Effort Respiratory Pattern Blood Pressure 158/74 H 161/78 H 139/85 H Blood Pressure Mean 102 105 103 Pulse Ox 85 98 96 Oxygen Delivery Method Nasal Cannula Nasal Cannula Oxygen Flow Rate (L/min) 4 3 02/29/24 15:33 02/29/24 16:00 02/29/24 16:39 Temperature Temperature Source Pulse Rate 80 78 Respiratory Rate 16 16 Respiratory Effort Short of Breath Respiratory Pattern Normal Blood Pressure 146/86 H 143/80 H Blood Pressure Mean 106 101 Pulse Ox 99 98 Oxygen Delivery Method Room Air Room Air Oxygen Flow Rate (L/min) Weight Weight: 140 lb Body Mass Index (BMI) 21.9 Physical Exam Narrative Physical Examination: General: Awake, alert, oriented x 3 and cooperative, seated upright in the ED bed, fatigued, notes currently abdominal pain primarily right upper quadrant rated 2-3 out of 10, dull aching. Skin: Normal color, normal turgor, no icterus, no cyanosis except for occasional staged ecchymoses, abrasion, mild bilateral lower extremity venous stasis skin changes. HEENT: AT/NC, EOMI, PERRLA, dry MM, no carotid bruits or JVD noted. Lungs: Significantly diminished, greater bases, appropriate effort, no evidence of distress, crackles throughout which patient reports is chronic, no rhonchi or wheezing currently. Heart: Regular rate and rhythm; no gallop, rub audible. Abdomen: Soft, discomfort to right upper quadrant palpation but no significant rebound or guarding, no marked distention evident, hyperactive BS, no appreciated HSM. Extremities: No cyanosis, no clubbing, mild peripheral ankle edema noted, see skin. Neurological: Patient awake, alert, oriented as noted, cognitive function intact; pupils equally reactive to light and accommodation, cranial nerves grossly normal, moving all 4 extremities, no focal deficits, strength moderately to severely globally decreased secondary to acute presentation complaints. Psychiatric: Affect appears fatigued, no acute evidence of depressive or anxiety feelings but does have underlying history. Results Lab / Micro Data 02/29/24 13:41 02/29/24 13:41 Labs: Laboratory Results - last 24 hr 02/29/24 13:41: WBC 12.0 H, RBC 3.58 L, Hgb 10.9 L, Hct 34.4 L, MCV 96.1, MCH 30.4, MCHC 31.7 L, RDW Std Deviation 49.3 H, RDW Coeff of Tessa 14.1, Plt Count 226, MPV 10.2, Immature Gran % (Auto) 2.300 H, Neut % (Auto) 89.1 H, Lymph % (Auto) 3.0 L, [place] % (Auto) 5.2, Eos % (Auto) 0.1, Baso % (Auto) 0.3, Absolute Neuts (auto) 10.7 H, Absolute Lymphs (auto) 0.36 L, Nucleated RBC % 0, Sodium 127 L, Potassium 4.6, Chloride 99, Carbon Dioxide 21.0, Anion Gap 7, BUN 41 H, Creatinine 2.06 H, Estim Creat Clear Calc 22.24, Est GFR (MDRD) Af Amer 30 L, Est GFR (MDRD) Non-Af 25 L, BUN/Creatinine Ratio 19.9, Glucose 349 H, Calcium 9.0, Total Bilirubin 6.00 H, Direct Bilirubin 4.58 H, AST 211 H, ALT 283 H, Alkaline Phosphatase 697 H, Total Protein 7.1, Albumin 2.4 L, Globulin 4.7 H, Lipase 81 H 02/29/24 16:35: POC Glucose 253 H Imaging Radiology Impression Chest X-Ray 02/29/24 13:55 IMPRESSION: There are no acute findings. Electronically Signed: Juan M Prather MD at 14:14 EDT , Gallbladder Ultrasound 02/29/24 14:14 IMPRESSION: GALLSTONES Note: Renal size measurements and size measurements of other organs etc may vary depending on modality and insole toe snipping machine operator dependent variations in measurements. (i.e. Measuring a kidney on an US does not correlate with an exact same measurement on a CT.) Electronically Signed: Juan M Prather MD at 15:30 EDT , Abdomen/Pelvis CT 02/29/24 16:12 IMPRESSION: (NOT LISTED IN ORDER OF SIGNIFICANCE) Choledocholithiasis. Bilateral pneumonia. There is a solitary gallstone. Constipation. Other findings as above. Electronically Signed: Juan M Prather MD at 16:55 EDT , Assessment & Plan Assessment/Plan (1) Choledocholithiasis: PLAN: Plan The patient is a 78 y/o F w/ PMHx: Chronic anemia, CKD stage IV per GFR trending, Anxiety and Depression, Diabetes mellitus type II, COPD w/ Chronic Hypoxic Respiratory Failure (4L NC), Former tobacco use, Hx TIA/CVA, HTN, HLD who presents to the [facility] ED on 02/29/24 with history of 3 to 4 days of epigastric and right upper quadrant discomfort noted to be sharp, intermittent with nausea with no emesis or loose stools with unfortunately last bowel movement approximately 1 week prior with no fevers or chills with no previous symptoms like this previously and noted to be nonradiating in nature. #1. Abdominal pain and Acute hyperbilirubinemia, transaminitis and mildly elevated lipase secondary to Suspected Acute Choledocholithasis in addition to questionable bilateral lower lobe pneumonia/infiltrates: Admission CMP with T. bili 6.0, D bili 4.58, AST/LT 211/23, alk phos 697, lipase 81, unfortunately most recent CMP noted previously in 2021 and previous to this normal, will admit to medical surgical floor, maintain on IVFs, NPO with bowel rest, IV Zosyn to be cautious, IV PPI, IV/po pain control, trend lipase, CMP and lipase. As noted will maintain on ATC budesonide therapy, as needed albuterol, MRSA screen requested, encourage head of bed and I-S, requested sputum culture, full respiratory viral panel, urine antigens and procalcitonin. Gastroenterology and general surgery consulted and following. #2. Acute hyponatremia, suspected hypovolemic component given above-noted presentation number 1: Admission sodium 127, chloride 99, will continue judicious hydration and repeat CMP in AM. #3. Chronic COPD with chronic hypoxic respiratory failure (4L NC) with allergic rhinitis: Will maintain on oxygen with wean as tolerated to home oxygen supplementation, will hold home inhaler in the interim placed on ATC budesonide therapy, PRN albuterol, HOB, IS parameters, continue patient home montelukast regimen. #4. Chronic Kidney Disease Stage IV per GFR trending: Admission BUN/Cr 41/2.06, GFR 25, baseline renal function primarily 1.5-2.0 although has vacillated, most recent previous presentation 11/11/2023 creatinine 1.51 but prior to this 07/30/2023 creatinine 1.84, repeat BMP in AM. #5. Chronic normocytic anemia/iron deficiency anemia: Admission hemoglobin 10.9, MCV 96.1, baseline hemoglobin noted previously primarily 10-12, most recently previous 11/18/2023 acutely hemoglobin 8.8 but prior to this 11.2, will continue to trend CBC, continue iron supplementation. #6. Anxiety and depression: Given significant hyperbilirubinemia and transaminitis we will temporarily hold patient home Wellbutrin, venlafaxine, aripiprazole and trazodone regimen with resumption if clinically CMP is improving. #7. History CVA/TIA: Given planned OR temporarily hold asa and restart once cleared per surgery, holding statin given significant liver function changes as noted, continue hypertensive regimen as BP and renal function allow, temporarily holding oral diabetic regimen with alteration as noted. #8. Hypertension: Continue home regimen including bisoprolol, losartan with hold parameters as needed, PRN hydralazine. #9. Hyperlipidemia: Given significant liver function impairment we will temporarily hold statin therapy, resume once clinically appropriate. #10. Diabetes mellitus type II: Hold oral home regimen, given presentation will maintain n.p.o. status, accu checks w/ ISS. #11. Former tobacco use: Encourage continued tobacco cessation. #12. GERD: Will maintain on IV PPI. #13. DVT prophylaxis: SCDs, hold chemoprophylaxis given likely needed intervention as noted above. #14. CODE status: Patient HCPOA is her and living will is currently in place. Discussed CODE status at length including difference between FULL code, DNR-CCA and DNR-CC status. Following discussions about the differences in these status, requested DNR-CCA with allowance of intubation. Advanced Care Planning Face to Face Time: 16 minutes. Charges/Coding Visit Charges Inpatient E&M: 79773 Init Hosp L3 Procedures Hospitalists Procedures: 80593 Advncd Care Plan 30 Min
[2024-02-29 18:02] LABS: Magnesium 1.5 mg/dL (1.6-2.6)
[2024-02-29] MEDS: 0.9% Normal Saline (1000mL) 1,000 ML 100 ML IV (18:15)
[2024-02-29] MEDS: Insulin Lispro 100 UNIT/ML INSULN.PEN SC (18:51)
[2024-02-29] MEDS: Pantoprazole Sodium 40 MG in 0.9% Normal Saline (100mL MB+) 100 ML 330 MG IV (18:51)
[2024-02-29 19:07] LABS: Bedside Glucose 181 mg/dL (74-106)
[2024-02-29 22:11] LABS: Procalcitonin 1.06 ng/mL (0.00-0.09)
[2024-02-29 22:23] LABS: M R Staph aureus DNA By PCR Negative (Negative); Probe Check PASS; Specimen Processing Control PASS
[2024-02-29] MEDS: Piperacil/Tazobactam 3.375 GM in 0.9% Normal Saline (50mL MB+) 50 ML IV (22:37)
[2024-02-29 23:02] LABS: Bedside Glucose 133 mg/dL (74-106)
--- NOTE | 2024-02-29 23:30 | EX.PCM.CON.G ---
HPI Consult Data Date of Consult: 02/29/24 HPI Narrative Reason for Consultation: Choledocholithiasis HPI Narrative: WING LIN, is a 78 F who presents to the [facility] ED on 02/29/24 with history of 3 to 4 days of epigastric and right upper quadrant discomfort noted to be sharp, intermittent with nausea with no emesis or loose stools with unfortunately last bowel movement approximately 1 week prior with no fevers or chills with no previous symptoms like this previously and noted to be nonradiating in nature. She notes her pain currently in the ED upon evaluation is more dull aching specifically noting 2-3 out of 10 in severity but after she has eaten especially things fatty she notes the pain was worse and more sharp in nature rating it 6-8 out of 10 in severity. Workup in the ED included T97.4, heart 105, BP 158/74, respiratory rate 18, initially 85% on 4 L nasal cannula noted to chronically be on 4L, most recent repeat vitals heart rate 95, BP 161/78, respiratory rate 16, 98% on 3 L nasal cannula Labs: CBC with WBC 12, hemoglobin 10.9, MCV 96.1, platelet 226 with left shift and lymphopenia, CMP with sodium 127, BUN/creatinine 41/2.06, GFR 25, glucose 349, T. bili 6.0, D bili 4.58, AST/LT 211/23, alk phos 697, lipase 81 chest x-ray : with no acute cardiopulmonary findings GB US : with noted distended gallbladder with wall measuring 4 mm, negative sonographic Nixon sign with no pericholecystic fluid however there is solitary echoic gallstone within the gallbladder, common bile duct measures 5.[address] abdomen and pelvis: with choledocholithiasis, solitary gallstone, evidence of constipation and bilateral lower lobe infiltrates. [facility] Medical History (Updated 02/29/24 @ 17:[address] Marsha Rodríguez MD) Iron deficiency anemia Chronic anemia CKD (chronic kidney disease), stage IV Chronic hypoxic respiratory failure, on home oxygen therapy Hyperlipidemia Anxiety and depression Diabetes mellitus Former smoker Stroke/cerebrovascular accident Hypertension CKD (chronic kidney disease) Emphysema of lung COPD (chronic obstructive pulmonary disease) Home Medications ?Medication ?Instructions ?Recorded ?Last Taken ?Type aspirin 81 mg chewable tablet 81 mg PO DAILY@0800 [facility] 12/27/16 07/28/23 History bupropion HCl 150 mg tablet,12 hr 150 mg PO BID mental health 12/27/16 07/28/23 History sustained-release cyanocobalamin (vitamin B-12) 1,000 mg PO DAILY supplement 12/27/16 07/28/23 History 1,000 mcg tablet (Vitamin B-12) lovastatin 40 mg tablet 40 mg PO QHS cholesterol 12/27/16 07/27/23 History montelukast 10 mg tablet 10 mg PO DAILY allergies 12/27/16 07/28/23 History trazodone 150 mg tablet 150 mg PO QHS insomnia 12/27/16 07/27/23 History venlafaxine 150 mg 150 mg PO DAILY depression 12/27/16 07/28/23 History capsule,extended release 24 hr albuterol sulfate 90 mcg/actuation 1 - 2 puff inhalation Q4H PRN PRN 12/30/16 01/19/20 Rx aerosol inhaler (Ventolin HFA) Sob &/Or Wheezing ##1 bisoprolol fumarate 5 mg tablet 5 mg PO DINNER blood pressure 04/19/21 07/27/23 History ferrous sulfate 325 mg (65 mg 325 mg PO DAILY supplement 04/19/21 07/28/23 History iron) tablet (FeroSul) losartan 25 mg tablet 25 mg PO DAILY hypertension 01/26/22 07/28/23 History pioglitazone 30 mg tablet 30 mg PO DAILY@0800 diabetes 01/26/22 07/28/23 History cholecalciferol (vitamin D3) 125 125 mcg PO DAILY Supplement 01/31/22 07/28/23 History mcg (5,000 unit) capsule oxycodone-acetaminophen 5 mg-325 1 tab PO Q12H PRN back pain 07/28/23 07/28/23 History mg tablet aripiprazole 10 mg tablet 10 mg PO DAILY 02/29/24 Unknown History esomeprazole magnesium 40 mg 40 mg PO DAILY 02/29/24 Unknown History capsule,delayed release nystatin 100,000 unit/gram topical 1 applic topical BID UNDER BREAST 02/29/24 Unknown History cream Allergy/AdvReac Type Severity Reaction Status Date / Time No Known Allergies Allergy Verified 02/29/24 13:06 Family History Mother Diabetes Heart disease Hypertension Father Diabetes Heart disease Hypertension Surgical History Status post open reduction with internal fixation (ORIF) of fracture of ankle Social History household members: spouse Smoking Status: Former smoker how long ago did patient quit smoking: Smoked 2 ppd until ~ 10 years ago since teen until quit. alcohol intake: never substance use type: does not use ROS Constitutional Constitutional: Reports anorexia Eyes Eyes: Denies change in vision ENT HEENT: Denies dysphagia Cardiovascular Cardiovascular: Denies chest pain Respiratory/Chest Respiratory/Chest: Reports shortness of breath at rest; Denies productive cough Gastrointestinal Gastrointestinal: Reports abdominal pain and nausea Genitourinary Genitourinary: Denies hematuria Musculoskeletal Musculoskeletal: Denies joint swelling Integumentary Integumentary: Denies jaundice Neurologic Neurologic: Denies focal weakness Psychiatric Psychiatric: Denies depression Hematologic/Lymphatic Hematologic/Lymphatic: Denies easy bleeding Physical Exam Narrative Physical Examination: General: Awake, alert, oriented x 3 and cooperative, seated upright in the ED bed, fatigued, notes currently abdominal pain primarily right upper quadrant rated 2-3 out of 10, dull aching. Skin: Normal color, normal turgor, no icterus, no cyanosis except for occasional staged ecchymoses, abrasion, mild bilateral lower extremity venous stasis skin changes. HEENT: AT/NC, EOMI, PERRLA, dry MM, no carotid bruits or JVD noted. Lungs: Significantly diminished, greater bases, appropriate effort, no evidence of distress, crackles throughout which patient reports is chronic, no rhonchi or wheezing currently. Heart: Regular rate and rhythm; no gallop, rub audible. Abdomen: Soft, discomfort to right upper quadrant palpation but no significant rebound or guarding, no marked distention evident, hyperactive BS, no appreciated HSM. Extremities: No cyanosis, no clubbing, mild peripheral ankle edema noted, see skin. Neurological: Patient awake, alert, oriented as noted, cognitive function intact; pupils equally reactive to light and accommodation, cranial nerves grossly normal, moving all 4 extremities, no focal deficits, strength moderately to severely globally decreased secondary to acute presentation complaints. Psychiatric: Affect appears fatigued, no acute evidence of depressive or anxiety feelings but does have underlying history. Lab / Micro Data 03/01/24 04:47 03/01/24 04:47 Labs: Laboratory Results - last 24 hr 02/29/24 13:41: Magnesium 1.5 L 02/29/24 16:35: POC Glucose 253 H 02/29/24 18:45: POC Glucose 181 H 02/29/24 20:00: MRSA (PCR) Negative 02/29/24 21:40: Procalcitonin 1.06 H 02/29/24 22:42: POC Glucose 133 H 03/01/24 04:47: WBC 10.6, RBC 3.29 L, Hgb 10.1 L, Hct 31.3 L, MCV 95.1, MCH 30.7, MCHC 32.3, RDW Std Deviation 49.8 H, RDW Coeff of Tessa 14.3, Plt Count 245, MPV 10.5, Immature Gran % (Auto) 2.000 H, Neut % (Auto) 82.6 H, Lymph % (Auto) 7.3 L, [place] % (Auto) 7.2, Eos % (Auto) 0.6, Baso % (Auto) 0.3, Absolute Neuts (auto) 8.8 H, Absolute Lymphs (auto) 0.78 L, Nucleated RBC % 0, Sodium 135 L, Potassium 4.3, Chloride 107, Carbon Dioxide 21.0, Anion Gap 7, BUN 34 H, Creatinine 1.65 H, Estim Creat Clear Calc 30.33, Est GFR (MDRD) Af Amer 39 L, Est GFR (MDRD) Non-Af 32 L, BUN/Creatinine Ratio 20.6 H, Glucose 144 H, Calcium 8.7, Total Bilirubin 4.30 H, Direct Bilirubin 3.63 H, AST 259 H, ALT 259 H, Alkaline Phosphatase 676 H, Total Protein 6.4, Albumin 2.2 L, Globulin 4.2, Lipase 57 03/01/24 05:18: POC Glucose 141 H 03/01/24 12:52: POC Glucose 148 H Micro: Microbiology 02/29/24 20:55 Mucosa - Nasopharyngeal Respiratory Panel (PCR) - Final 02/29/24 20:00 Urine, Clean Catch Streptococcus pneumoniae Antigen (M - Final 02/29/24 20:00 Urine, Clean Catch Legionella Antigen - Final Imaging Radiology Impression Abdomen/Pelvis CT 02/29/24 16:12 IMPRESSION: (NOT LISTED IN ORDER OF SIGNIFICANCE) Choledocholithiasis. Bilateral pneumonia. There is a solitary gallstone. Constipation. Other findings as above. Electronically Signed: Juan M Prather MD at 16:55 EDT , Assessment & Plan Assessment/Plan (1) Choledocholithiasis: PLAN: Plan 78 y/o F who presents to the [facility] ED on 02/29/24 with history of 3 to 4 days of epigastric and right upper quadrant discomfort noted to be sharp, intermittent with nausea with no emesis or loose stools with unfortunately last bowel movement approximately 1 week prior with no fevers or chills with no previous symptoms like this previously and noted to be nonradiating in nature. Abdominal pain and Acute hyperbilirubinemia, transaminitis and mildly elevated lipase secondary to Suspected Acute Choledocholithasis. She will need to undergo ERCP for evaluation of the hepatobiliary system. She was explained alternatives, risk, benefits include not withstanding bleeding, infection, sepsis, perforation, need for emergent urgent . She will have an ASA of 3. -CMP with T. bili 6.0, D bili 4.58, AST/LT 211/23, alk phos 697, lipase 81, unfortunately most recent CMP noted previously in 2021 and previous to this normal, will admit to medical surgical floor, maintain on IVFs, NPO with bowel rest, IV Zosyn to be cautious, IV PPI, IV/po pain control, trend lipase, CMP and lipase. Charges/Coding Visit Charges Inpatient E&M: 48086 Init Hosp L3
[2024-03-01] VITALS (20 sets, daily range): BP systolic 111–210; BP diastolic 57–95; PULSE 71–123; RESP 14–16; TEMP 36.1–37.1; O2SAT 14–99; BMI 26.2
[2024-03-01] MEDS: 0.9% Saline Lock 10 ML Syringe IV (05:11)
[2024-03-01] MEDS: Piperacil/Tazobactam 3.375 GM in 0.9% Normal Saline (50mL MB+) 50 ML IV ×3 (05:11→22:20)
[2024-03-01] MEDS: oxyCODONE 5 MG Tablet PO ×2 (05:15→09:16)
[2024-03-01 05:40] LABS: Bedside Glucose 141 mg/dL (74-106)
[2024-03-01 05:57] LABS: Absolute Lymphocyte Count 0.78 X10^3/uL (0.83-4.51); Absolute Neutrophil Count 8.8 X10^3/uL (2.0-7.7); Basophil# 0.03 X10^3/uL; Basophil% 0.3 % (0-1); Eosinophil# 0.06 X10^3/uL; Eosinophils% 0.6 % (0-5); Hematocrit 31.3 % (37-47); Hemoglobin 10.1 g/dL (12.0-15.0); Lymphocyte # 0.78 X10^3/ul (0.83-4.51); Lymphocyte % 7.3 % (19-41); Mean Corp Hgb Conc 32.3 g/dL (32-36); Mean Corpuscular Hgb 30.7 pg (27.0-32.0); Mean Corpuscular Volume 95.1 fL (81-99); Mean Platelet Vol. 10.5 fl (6.2-12.0); Monocyte# 0.77 X10^3/uL; Monocyte% 7.2 % (0-10); NRBC Flagged by Analyzer 0 % (0-5); Neutrophil # 8.79 X10^3/uL (2.7-7.7); Neutrophil % 82.6 % (47-70); Platelet Count 245 K/mm3 (150-450); RBC Distribution Width CV 14.3 % (11.6-14.6); RBC Distribution Width SD 49.8 fl (35.1-43.9); Red Blood Count 3.29 M/mm3 (4.2-5.4); White Blood Count 10.6 K/mm3 (4.4-11.0)
[2024-03-01] MEDS: 0.9% Normal Saline (1000mL) 1,000 ML 100 ML IV (06:36)
--- NOTE | 2024-03-01 06:41 | EX.PCM.CON.S ---
Assessment & Plan Assessment/Plan (1) Choledocholithiasis: (2) Choledocholithiasis: (3) Jaundice: (4) Hypoxia: PLAN: Plan Patient is currently n.p.o./IV fluids. LFTs are pending hopefully patient will get ERCP today. Continue Zosyn IV Did discuss with patient 2 options for taking care of the gallbladder including laparoscopic cholecystectomy or cholecystostomy tube with interval cholecystectomy. Patient does chronically have COPD on 3 to 4 L nasal cannula denies any changes to her oxygenation needs recently. CT questions bilateral infiltrates however patient denies any productive cough. But patient has not been eating well for 4 to 5 days and even before that per patient. Reviewed the anatomy with the patient and discussed the procedure: laparoscopic cholecystectomy with possible cholangiograms, possible open. Review risks including but not limited to bleeding, infection, hernia, bile leak, retained gallstones requiring another procedure ERCP- Endoscopic Retrograde Cholangiopancreatography, injury to another organ (bile ducts, common bile duct, small bowel, etc.) and conversion to an open procedure. All questions were answered. Mahsa Nagel M.D. Pager: [phone] [facility] [address] [place] [address], [facility], [address] [place] [address] Office: [phone] HPI Consult Data Date of Consult: 03/01/24 HPI Narrative HPI Narrative: WING LIN, is a 78 F who presents due to abdominal pain and anorexia and jaundice x 4 to 5 days. Patient states she is having abdominal pain about 4 to 5 days ago. Did not initially noticed the jaundice. But was not really able to eat well at that time. Patient also states even prior to that she was not eating that well. Patient ultrasound the gallbladder showed thickened gallbladder wall 4 mm and a solitary gallstone her labs showed elevated LFTs thus a CT abdomen pelvis was done which showed choledocholithiasis as well as cholelithiasis?total bili was 6 on admit with elevated AST and ALT/alk phos. Patient denies any abdominal surgeries. Patient is on 81 mg aspirin due to previous stroke with no residual effects per patient. Patient is chronically on 3 to 4 L nasal cannula at home. Patient states it has stayed the same and not increased recently. Patient CT also question some bilateral infiltrates. Patient denies any productive cough. Patient was started on Zosyn IV. COUNTS INCLUDE 234 BEDS AT THE [facility] Medical History (Updated 02/29/24 @ 17:[address] Marsha Rodríguez MD) Iron deficiency anemia Chronic anemia CKD (chronic kidney disease), stage IV Chronic hypoxic respiratory failure, on home oxygen therapy Hyperlipidemia Anxiety and depression Diabetes mellitus Former smoker Stroke/cerebrovascular accident Hypertension CKD (chronic kidney disease) Emphysema of lung COPD (chronic obstructive pulmonary disease) Home Medications ?Medication ?Instructions ?Recorded ?Last Taken ?Type aspirin 81 mg chewable tablet 81 mg PO DAILY@0800 Heart health 12/27/16 07/28/23 History bupropion HCl 150 mg tablet,12 hr 150 mg PO BID mental health 12/27/16 07/28/23 History sustained-release cyanocobalamin (vitamin B-12) 1,000 mg PO DAILY supplement 12/27/16 07/28/23 History 1,000 mcg tablet (Vitamin B-12) lovastatin 40 mg tablet 40 mg PO QHS cholesterol 12/27/16 07/27/23 History montelukast 10 mg tablet 10 mg PO DAILY allergies 12/27/16 07/28/23 History trazodone 150 mg tablet 150 mg PO QHS insomnia 12/27/16 07/27/23 History venlafaxine 150 mg 150 mg PO DAILY depression 12/27/16 07/28/23 History capsule,extended release 24 hr albuterol sulfate 90 mcg/actuation 1 - 2 puff inhalation Q4H PRN PRN 12/30/16 01/19/20 Rx aerosol inhaler (Ventolin HFA) Sob &/Or Wheezing ##1 bisoprolol fumarate 5 mg tablet 5 mg PO DINNER blood pressure 04/19/21 07/27/23 History ferrous sulfate 325 mg (65 mg 325 mg PO DAILY supplement 04/19/21 07/28/23 History iron) tablet (FeroSul) losartan 25 mg tablet 25 mg PO DAILY hypertension 01/26/22 07/28/23 History pioglitazone 30 mg tablet 30 mg PO DAILY@0800 diabetes 01/26/22 07/28/23 History cholecalciferol (vitamin D3) 125 125 mcg PO DAILY Supplement 01/31/22 07/28/23 History mcg (5,000 unit) capsule oxycodone-acetaminophen 5 mg-325 1 tab PO Q12H PRN back pain 07/28/23 07/28/23 History mg tablet aripiprazole 10 mg tablet 10 mg PO DAILY 02/29/24 Unknown History esomeprazole magnesium 40 mg 40 mg PO DAILY 02/29/24 Unknown History capsule,delayed release nystatin 100,000 unit/gram topical 1 applic topical BID UNDER BREAST 02/29/24 Unknown History cream Allergy/AdvReac Type Severity Reaction Status Date / Time No Known Allergies Allergy Verified 02/29/24 13:06 Family History Mother Diabetes Heart disease Hypertension Father Diabetes Heart disease Hypertension Surgical History Status post open reduction with internal fixation (ORIF) of fracture of ankle Social History household members: spouse Smoking Status: Former smoker how long ago did patient quit smoking: Smoked 2 ppd until ~ 10 years ago since teen until quit. alcohol intake: never substance use type: does not use ROS Constitutional Constitutional: Reports anorexia Eyes Eyes: Denies change in vision ENT HEENT: Denies dysphagia Cardiovascular Cardiovascular: Denies chest pain Respiratory/Chest Respiratory/Chest: Reports shortness of breath at rest; Denies productive cough Gastrointestinal Gastrointestinal: Reports abdominal pain and nausea Genitourinary Genitourinary: Denies hematuria Musculoskeletal Musculoskeletal: Denies joint swelling Integumentary Integumentary: Denies jaundice Neurologic Neurologic: Denies focal weakness Psychiatric Psychiatric: Denies depression Hematologic/Lymphatic Hematologic/Lymphatic: Denies easy bleeding Physical Exam Const alert, oriented x3 and no apparent distress HEENT normocephalic and head/scalp atraumatic Resp normal respiratory effort Cardio regular rate GI soft to palpation; Negative for non-distended Palpation: tender epigastric and other (Right mid abdomen, no peritoneal signs); Negative for guarding Extremity no clubbing, cyanosis or edema Neuro CN's II-XII intact bilaterally Psych mental status grossly normal Lab / Micro Data 03/01/24 04:47 03/01/24 04:47 Labs: Laboratory Results - last 24 hr 02/29/24 13:41: WBC 12.0 H, RBC 3.58 L, Hgb 10.9 L, Hct 34.4 L, MCV 96.1, MCH 30.4, MCHC 31.7 L, RDW Std Deviation 49.3 H, RDW Coeff of Tessa 14.1, Plt Count 226, MPV 10.2, Immature Gran % (Auto) 2.300 H, Neut % (Auto) 89.1 H, Lymph % (Auto) 3.0 L, Platte % (Auto) 5.2, Eos % (Auto) 0.1, Baso % (Auto) 0.3, Absolute Neuts (auto) 10.7 H, Absolute Lymphs (auto) 0.36 L, Nucleated RBC % 0, Sodium 127 L, Potassium 4.6, Chloride 99, Carbon Dioxide 21.0, Anion Gap 7, BUN 41 H, Creatinine 2.06 H, Estim Creat Clear Calc 22.24, Est GFR (MDRD) Af Amer 30 L, Est GFR (MDRD) Non-Af 25 L, BUN/Creatinine Ratio 19.9, Glucose 349 H, Calcium 9.0, Magnesium 1.5 L, Total Bilirubin 6.00 H, Direct Bilirubin 4.58 H, AST 211 H, ALT 283 H, Alkaline Phosphatase 697 H, Total Protein 7.1, Albumin 2.4 L, Globulin 4.7 H, Lipase 81 H 02/29/24 16:35: POC Glucose 253 H 02/29/24 18:45: POC Glucose 181 H 02/29/24 20:00: MRSA (PCR) Negative 02/29/24 21:40: Procalcitonin 1.06 H 02/29/24 22:42: POC Glucose 133 H 03/01/24 04:47: WBC 10.6, RBC 3.29 L, Hgb 10.1 L, Hct 31.3 L, MCV 95.1, MCH 30.7, MCHC 32.3, RDW Std Deviation 49.8 H, RDW Coeff of Tessa 14.3, Plt Count 245, MPV 10.5, Immature Gran % (Auto) 2.000 H, Neut % (Auto) 82.6 H, Lymph % (Auto) 7.3 L, Platte % (Auto) 7.2, Eos % (Auto) 0.6, Baso % (Auto) 0.3, Absolute Neuts (auto) 8.8 H, Absolute Lymphs (auto) 0.78 L, Nucleated RBC % 0 03/01/24 05:18: POC Glucose 141 H Micro: Microbiology 02/29/24 20:55 Mucosa - Nasopharyngeal Respiratory Panel (PCR) - Final 02/29/24 20:00 Urine, Clean Catch Streptococcus pneumoniae Antigen (M - Final 02/29/24 20:00 Urine, Clean Catch Legionella Antigen - Final Imaging Radiology Impression Chest X-Ray 02/29/24 13:55 IMPRESSION: There are no acute findings. Electronically Signed: Juan M Prather MD at 14:14 EDT , Gallbladder Ultrasound 02/29/24 14:14 IMPRESSION: GALLSTONES Note: Renal size measurements and size measurements of other organs etc may vary depending on modality and annealing oven operator dependent variations in measurements. (i.e. Measuring a kidney on an US does not correlate with an exact same measurement on a CT.) Electronically Signed: Juan M Prather MD at 15:30 EDT , Abdomen/Pelvis CT 02/29/24 16:12 IMPRESSION: (NOT LISTED IN ORDER OF SIGNIFICANCE) Choledocholithiasis. Bilateral pneumonia. There is a solitary gallstone. Constipation. Other findings as above. Electronically Signed: Juan M rPather MD at 16:55 EDT , Charges/Coding Visit Charges Inpatient E&M: 40878 Init Hosp L3
[2024-03-01] MEDS: Budesonide Respules 0.5 MG/2 ML AMPUL.NEB. INHALATION ×2 (06:42→20:04)
[2024-03-01 06:57] LABS: AST(SGOT) 259 U/L (15-37); Alanine Aminotransfer ALT/SGPT 259 U/L (13-56); Albumin, Serum 2.2 g/dL (3.2-5.0); Alkaline Phosphatase 676 U/L (45-117); Anion Gap 7 (5-15); BUN 34 mg/dL (7-18); BUN/Creat Ratio 20.6 RATIO (10-20); Bilirubin, Direct 3.63 mg/dL (0.00-0.30); Calcium,Total 8.7 mg/dL (8.5-10.1); Chloride 107 mmol/L (98-107); Creatinine, Serum 1.65 mg/dL (0.55-1.02); EST Glomerular Filtration Rate 32 mL/min (>60); Est Glom Filt Rate - Afr Amer 39 mL/min (>60); Estimated Creatinine Clearance 30.33 ml/min; Globulin 4.2 g/dL (2.2-4.2); Glucose 144 mg/dL (74-106); Lipase 57 U/L (13-75); Potassium 4.3 mmol/L (3.5-5.1); Protein, Total 6.4 g/dL (6.4-8.2); Sodium Level 135 mmol/L (136-145)
[2024-03-01] MEDS: Losartan Potassium 25 MG Tablet PO (09:13)
[2024-03-01] MEDS: Ferrous Sulfate 325 MG Tablet PO (09:13)
[2024-03-01] MEDS: Magnesium Sulfate 2 GM in Dextrose 5%-Water (100mL Bag) 100 ML IV (09:13)
[2024-03-01] MEDS: Montelukast 10 MG Tablet PO (09:13)
[2024-03-01] MEDS: Acetaminophen 325 MG Tablet 650 MG PO ×2 (09:17→18:44)
--- NOTE | 2024-03-01 09:45 | CASEMGMT ---
RN?CM?SKIN LIFTER BACON?CM?to room to meet with patient for initial transition planning/care coordination?assessment.?RN?CM?introduced self and role at [facility].? Pt voices understanding and consents to?assessment?at this time.? Pt resting in bed in no distress at this time. Pt is A/O at this time and answers all questions appropriately.?? Care providers, pharmacy, and demographics verified/updated at this time w/pt and family. PCP: Dr Mckeon Specialists: Dr Jay nephvaishali. Preferred Pharmacy: [facility] Insurance: [facility] Prescription Benefit: yes LW/HPOA: Pt states she has a LW and HCPOA and her POA is her , Jony Guardado. LNOK: Jony Guardado, ; 3 daughters: Abi, Lisa, and Joan. Barbie Townsend, step-dtr Living Arrangements: Pt lives with in a two story house with a ramp to enter. FFSU. Pt states she is independent w/ADL's, manages her own medications, and does most other home mgnt tasks. does his own laundry. Pt states supportive family that would assist, if needed. Transportation: Pt drives self and denies concerns with transportation. does not drive. Family will take her home @ me. DME: Pt has a shower chair, BSC, RTS, W/C, functioning glucometer w/supplies, quad cane, FWW, rollator, pulse ox, O2 through [facility] that she wears 3-4 l/m continuously. Call to [facility], current orders are 4 l/m contin. Pt has a concentrator and portable O2 tank, which she states is currently w/her in her room for her to go home on. Pt reports she has all medications needed @ home. She is interested in medical alert info. Dalia, MS3 RN TRACIE, aware. HHC/SNF: Pt has been to [facility]CU and has had [facility] in the pat. Discussed discharge planning. Pt would like to discharge home and declines need for HHC or OP therapy. Palliative Care: Referral to Palliative was made last admission, , but daughter cx'd the appt that was scheduled. Pt states dtr did not feel she needed it. Pt made aware to let CM know if she changes her mind and is interested in Palliative referral. She voices understanding. Pt wishes to return home and states has no concerns with going home at time of discharge.? CM?to follow for any increase in home oxygen needs and any further discharge planning/needs.? Pt and voices no further concerns/needs at this time.? Advised her to ask for?CM?if any further questions/concerns/needs arise.? She voices understanding. PLAN:??Home w/discharge plans in place. . Suzette CONDEN?RN?CM
[2024-03-01] MEDS: Pantoprazole Sodium 40 MG in 0.9% Normal Saline (100mL MB+) 100 ML 330 MG IV ×2 (10:32→20:28)
--- NOTE | 2024-03-01 12:58 | CASEMGMT ---
Social Work- Pt has HCPOA in chart. DARION Baker
[2024-03-01 13:21] LABS: Bedside Glucose 148 mg/dL (74-106)
--- NOTE | 2024-03-01 13:23 | PN.HOSP_ITS ---
Reason for Visit Reason for Visit: Abdominal pain Subjective Subjective Mrs. Prado is a 78-year-old white female who presented to the emergency department at [facility] on 02/29/2024 with a chief complaint of epigastric pain that had been ongoing for 3 to 4 days prior to presentation. She also reported it was radiating to the right upper quadrant and was sharp with intermittent nausea associated but no emesis. She is passing flatus and her last bowel movement was approximately 1 week prior to presentation. She does have a history of chronic hypoxic respiratory failure and is on 3 to 4 L of oxygen at baseline. Patient noted on presentation that she specifically has worsening symptoms after she eats fatty food. Vital signs on presentation showed a temperature of 97.4, heart rate 105, blood pressure was 158/74, respiratory was 18 oxygen saturation was initially 85% 4 L nasal cannula but then improved to 98% on 3 L nasal cannula. CBC showed a mild leukocytosis with a white count of 12.0 and a left shift was present with an 89.1% neutrophilia. She had a mild anemia at 10.9 and this appears to be close to her baseline. She had mild hyponatremia with a sodium of 127, BENITO with a serum creatinine of 2.06 and a BUN of 41. Blood glucose level was 349 on presentation. Her bilirubin was 6 with a direct bilirubin of 4.58 and an AST of 211 with an ALT of 283. Her alkaline phosphatase was 697. Lipase was 81 with repeat at 57. A procalcitonin was obtained and found to be 1.06. Chest x-ray showed no acute findings. Gallbladder ultrasound showed gallstones. CT of the abdomen pelvis showed choledocholithiasis with bilateral lower lobe consolidation showing atelectasis versus infiltrates, 1 solitary gallstone and constipation. She was admitted to medical floor with consultation to gastroenterology and general surgery. Plan is for an ERCP and probable cholecystectomy while hospitalized. Patient states she is feeling better today with the assistance of pain medication. Acknowledges that she is waiting for an ERCP and did discuss things this morning with general surgery. Has no complaints at this time. Objective Data Objective Data Vital Signs: Vital Signs Temp Pulse Resp BP Pulse Ox O2 Del Method O2 Flow Rate 98.0 F 96 16 179/75 H 92 Nasal Cannula 3 03/01/24 09:03 03/01/24 09:03 03/01/24 09:03 03/01/24 09:03 03/01/24 12:04 03/01/24 09:07 03/01/24 12:04 Oxygen Flow Rate (L/min) 3 Oxygen Delivery Method Nasal Cannula Weight: 75.8 kg Body Mass Index (BMI) 26.2 Intake & Output: Intake and Output for Last 24 Hours 02/28/24 02/29/24 03/01/24 23:59 23:59 23:59 Intake Total 1210 / 1210 1210 / 1210 Output Total 400 / 400 400 / 400 Balance 810 / 810 810 / 810 Lab / Micro Data 03/01/24 04:47 03/01/24 04:47 Labs: Laboratory Results - last 24 hr 02/29/24 13:41: WBC 12.0 H, RBC 3.58 L, Hgb 10.9 L, Hct 34.4 L, MCV 96.1, MCH 30.4, MCHC 31.7 L, RDW Std Deviation 49.3 H, RDW Coeff of Tessa 14.1, Plt Count 226, MPV 10.2, Immature Gran % (Auto) 2.300 H, Neut % (Auto) 89.1 H, Lymph % (Auto) 3.0 L, Rapides % (Auto) 5.2, Eos % (Auto) 0.1, Baso % (Auto) 0.3, Absolute Neuts (auto) 10.7 H, Absolute Lymphs (auto) 0.36 L, Nucleated RBC % 0, Sodium 127 L, Potassium 4.6, Chloride 99, Carbon Dioxide 21.0, Anion Gap 7, BUN 41 H, C reatinine 2.06 H, Estim Creat Clear Calc 22.24, Est GFR (MDRD) Af Amer 30 L, Est GFR (MDRD) Non-Af 25 L, BUN/Creatinine Ratio 19.9, Glucose 349 H, Calcium 9.0, M agnesium 1.5 L, Total Bilirubin 6.00 H, Direct Bilirubin 4.58 H, AST 211 H, ALT 283 H, Alkaline Phosphatase 697 H, Total Protein 7.1, Albumin 2.4 L, Globulin 4.7 H, Lipase 81 H 02/29/24 16:35: POC Glucose 253 H 02/29/24 18:45: POC Glucose 181 H 02/29/24 20:00: MRSA (PCR) Negative 02/29/24 21:40: Procalcitonin 1.06 H 02/29/24 22:42: POC Glucose 133 H 03/01/24 04:47: WBC 10.6, RBC 3.29 L, Hgb 10.1 L, Hct 31.3 L, MCV 95.1, MCH 30.7, MCHC 32.3, RDW Std Deviation 49.8 H, RDW Coeff of Tessa 14.3, Plt Count 245, MPV 10.5, Immature Gran % (Auto) 2.000 H, Neut % (Auto) 82.6 H, Lymph % (Auto) 7.3 L, Rapides % (Auto) 7.2, Eos % (Auto) 0.6, Baso % (Auto) 0.3, Absolute Neuts (auto) 8.8 H, Absolute Lymphs (auto) 0.78 L, Nucleated RBC % 0, Sodium 135 L, Potassium 4.3, Chloride 107, Carbon Dioxide 21.0, Anion Gap 7, BUN 34 H, C reatinine 1.65 H, Estim Creat Clear Calc 30.33, Est GFR (MDRD) Af Amer 39 L, Est GFR (MDRD) Non-Af 32 L, BUN/Creatinine Ratio 20.6 H, Glucose 144 H, Calcium 8.7, Total Bilirubin 4.30 H, Direct Bilirubin 3.63 H, AST 259 H, ALT 259 H, Alkaline Phosphatase 676 H, Total Protein 6.4, Albumin 2.2 L, Globulin 4.2, Lipase 57 03/01/24 05:18: POC Glucose 141 H 03/01/24 12:52: POC Glucose 148 H Micro: Microbiology 02/29/24 20:55 Mucosa - Nasopharyngeal Respiratory Panel (PCR) - Final 02/29/24 20:00 Urine, Clean Catch Streptococcus pneumoniae Antigen (M - Final 02/29/24 20:00 Urine, Clean Catch Legionella Antigen - Final Radiography Diagnostic Testing: Radiology Impression Chest X-Ray 02/29/24 13:55 IMPRESSION: There are no acute findings. Electronically Signed: Juan M Prather MD at 14:14 EDT Reading Location ID and State: [facility] / [place] , Service support , Gallbladder Ultrasound 02/29/24 14:14 IMPRESSION: GALLSTONES Note: Renal size measurements and size measurements of other organs etc may vary depending on modality and winch operator dependent variations in measurements. (i.e. Measuring a kidney on an US does not correlate with an exact same measurement on a CT.) Electronically Signed: Juan M Prather MD at 15:30 EDT , Abdomen/Pelvis CT 02/29/24 16:12 IMPRESSION: (NOT LISTED IN ORDER OF SIGNIFICANCE) Choledocholithiasis. Bilateral pneumonia. There is a solitary gallstone. Constipation. Other findings as above. Electronically Signed: Juan M Prather MD at 16:55 EDT , Physical Exam Const alert, oriented x3, no apparent distress and well nourished Constitutional Narrative: Elderly, white female, sitting up in a chair at the bedside, patient appears comfortable and nontoxic, watching television HEENT head/scalp atraumatic and moist oral mucous membranes Head and Scalp: normocephalic Eyes PERRL, EOMs intact bilaterally and conjunctivae normal Eyes Narrative: Mild scleral icterus Resp normal respiratory effort, no retractions, no use of accessory muscles and clear to auscultation bilaterally Auscultation: Negative for rales, rhonchi or wheezes Cardio regular rate, regular rhythm, S1 normal heart sound, S2 normal heart sound, no murmurs, no rub, no gallops and no clicks GI normal to inspection, nondistended, normoactive bowel sounds and soft to palpation; Negative for non-tender GI Narrative: Tenderness noted in the epigastrium and right upper quadrant Extremity no clubbing, cyanosis or edema Extremity Narrative: Pedal pulses are 2+ Neuro oriented x3, moves all extremities and no focal motor deficits Speech: speech normal Psych affect normal Psych Narrative: Eye contact is good, patient is very pleasant, interacts appropriately Assessment & Plan Assessment/Plan (1) Abdominal pain, acute: (2) Choledocholithiasis: PLAN: Plan Abdominal pain/nausea secondary to choledocholithiasis -Transaminases remain elevated -Plan is for ERCP later today -Continue IV fluids -Continue n.p.o. -Continue IV Zosyn for now -General surgery following and probable cholecystectomy later once stone has been removed Acute transaminitis/hyperbilirubinemia -Secondary to the above -Should resolve once choledocholithiasis has been addressed -Repeat lab in a.m. Acute hyponatremia -127 on presentation -Now up to 135 with hydration -Continue IV fluids -Repeat lab in a.m. Chronic normocytic anemia -Does take iron for history of iron deficiency -Hemoglobin is stable -Continue to monitor BENITO on CKD stage IIIb Serum creatinine on presentation was 2.06 and baseline appears to be between 1.5 and 1.8 -Down to 1.65 today -Continue IV fluids while n.p.o. -Acute issue likely related dehydration with abdominal pain and nausea -Avoid nephrotoxins as able -Continue to monitor closely Chronic hypoxic respiratory failure secondary to COPD -Baseline dependence on 4 L -No change in oxygen requirement and despite read on CT of the abdomen pelvis pneumonia very unlikely -Hold home inhalers -Continue budesonide therapy -As needed albuterol -I-S -Continue home Singulair Allergic rhinitis -Continue home Singulair History of stroke/TIA -Hold aspirin for procedures and restart following Hyperlipidemia -Statin on hold due to transaminitis and will restart after liver functions improve Hypertension -Continue home regimen with beta-nancie and losartan -As needed hydralazine DM-2 -On orals at baseline-hold -Accu-Cheks and SSI ordered every 6 for now -Transition to before meals and at bedtime once we can start p.o. diet Depression/anxiety -Restart home medication watch liver functions closely History of tobacco abuse -Remote -Continue ongoing cessation DVT prophylaxis -Chemoprophylaxis on hold due to need for intervention -SCDs ordered CODE STATUS -DNR CCA okay for short-term intubation Charges/Coding Visit Charges Inpatient E&M: 64260 Subs Hosp L2
[2024-03-01] MEDS: 0.9% Normal Saline (1000mL) 1,000 ML 15 ML IV (14:35)
--- NOTE | 2024-03-01 15:35 | RAD_ITS ---
HISTORY: ERCP COMPARISON: CT February 29, 2024 TECHNIQUE: A total of 12 fluoroscopic images were saved without a radiologist present. FINDINGS: Images demonstrate fluoroscopic support for stent placement and ERCP Total fluoroscopy time: 80 seconds Cumulative air kerma: 21.29 mGy RAD/ERCP Biliary/Pancreas IMPRESSION: Fluoroscopic assistance for ERCP with biliary stent placement . Please see operative report for additional information. Electronically Signed: Zeyad Chapin MD at 4:46 EDT ,
--- NOTE | 2024-03-01 16:27 | OP.ERCP_ITS ---
Patient Name: Martha Johnson Procedure Date: 03/01/2024 3:38 PM Date of : 1945 Age: 78 Procedure: ERCP Indications: Bile duct stone(s) Providers: Kamron Nguyen DO Medicines: Monitored Anesthesia Care Patient Profile: This is a 78 year old female. This is a 78 year old female. Refer to note in patient chart for documentation of history and physical. Patient has symptoms of acute right upper quadrant abdominal pain and acute jaundice. Complications: No immediate complications. Procedure: Pre-Anesthesia Assessment: - Prior to the procedure, a History and Physical was performed, and patient medications and allergies were reviewed. The patient is competent. The risks and benefits of the procedure and the sedation options and risks were discussed with the patient. All questions were answered and informed consent was obtained. Patient identification and proposed procedure were verified by the book solicitor in the pre-procedure area. Mental Status Examination: alert and oriented. Respiratory Examination: clear to auscultation. CV Examination: normal. Prophylactic Antibiotics: The patient requires prophylactic antibiotics for the planned ERCP in an obstructed bile duct. The patient received antibiotic therapy before the procedure. Prior Anticoagulants: The patient has taken no anticoagulant or antiplatelet agents. ASA Grade Assessment: III - A patient with severe systemic disease. After reviewing the risks and benefits, the patient was deemed in satisfactory condition to undergo the procedure. The anesthesia plan was to use general anesthesia. Immediately prior to administration of medications, the patient was re-assessed for adequacy to receive sedatives. The heart rate, respiratory rate, oxygen saturations, blood pressure, adequacy of pulmonary ventilation, and response to care were monitored throughout the procedure. The physical status of the patient was re-assessed after the procedure. After obtaining informed consent, the scope was passed under direct vision. Throughout the procedure, the patient's blood pressure, pulse, and oxygen saturations were monitored continuously. The Duodenoscope was introduced through the mouth, and advanced to the duodenum and used to inject contrast into the bile duct and ventral pancreatic duct. The ERCP was accomplished without difficulty. The patient tolerated the procedure well. Scope In: 3:56:57 PM Scope Out: 4:16:40 PM Total Procedure Duration Time 0 hours 19 minutes 43 seconds Findings: The employment adjudicator film was normal. The esophagus was successfully intubated under direct vision. The scope was advanced to a normal major papilla in the descending duodenum without detailed examination of the pharynx, larynx and associated structures, and upper GI tract. The upper GI tract was grossly normal. The bile duct was deeply cannulated with the short-nosed traction sphincterotome. Contrast was injected. I personally interpreted the bile duct and pancreatic duct images. There was brisk flow of contrast through the ducts. Image quality was adequate. Contrast extended to the entire biliary tree. Opacification of the entire biliary tree except for the cystic duct and gallbladder was successful. The maximum diameter of the ducts was 13 mm. The biliary orifice was stenotic. This appeared benign. A wire was passed into the ventral pancreatic duct. A 4 mm ventral pancreatic sphincterotomy was made with a traction (standard) sphincterotome using ERBE electrocautery. Moderate bleeding from the sphincterotomy stopped within 5 minutes. To discover objects, the biliary tree was swept with a 12 mm balloon starting at the bifurcation. Sludge was swept from the duct. Two stones were removed. One stone remained. One 5 Fr by 7 cm temporary stent was placed 5 cm into the ventral pancreatic duct. Clear fluid flowed through the stent. The stent was in good position. One 10 Fr by 7 cm temporary stent was placed 5 cm into the common bile duct. Bile flowed through the stent. The stent was in good position. Impression: - Biliary papillary stenosis, benign. - Choledocholithiasis was found. Partial removal was accomplished with balloon extraction; a stent was inserted. - A pancreatic sphincterotomy was performed. - The biliary tree was swept. - One temporary stent was placed into the ventral pancreatic duct. - One temporary stent was placed into the common bile duct. Procedure Code(s): --- Professional --- 01166, Endoscopic retrograde cholangiopancreatography (ERCP); with placement of endoscopic stent into biliary or pancreatic duct, including pre- and post-dilation and guide wire passage, when performed, including sphincterotomy, when performed, each stent [id number], 59, Endoscopic retrograde cholangiopancreatography (ERCP); with placement of endoscopic stent into biliary or pancreatic duct, including pre- and post-dilation and guide wire passage, when performed, including sphincterotomy, when performed, each stent [id number], Endoscopic retrograde cholangiopancreatography (ERCP); with removal of calculi/debris from biliary/pancreatic duct(s) 59057, 26, Combined endoscopic catheterization of the biliary and pancreatic ductal systems, radiological supervision and interpretation CPT copyright 2021 [employer]. All rights reserved. The codes documented in this report are preliminary and upon supervisor engraving review may be revised to meet current compliance requirements. Kamron Nguyen DO 03/01/2024 4:27:19 PM This report has been signed electronically. Number of Addenda: 0 Note Initiated On: 03/01/2024 3:38 PM
--- NOTE | 2024-03-01 16:27 | OP.CCLET_ITS ---
03/01/2024 Grady Mckeon [address] [place] [address] Re : ERCP procedure for Martha Johnson Dear Dr. Mckeon This procedure was performed on Friday, March 01, 2024. My impressions and recommendations are as follows: Impressions : - Biliary papillary stenosis, benign. - Choledocholithiasis was found. Partial removal was accomplished with balloon extraction; a stent was inserted. - A pancreatic sphincterotomy was performed. - The biliary tree was swept. - One temporary stent was placed into the ventral pancreatic duct. - One temporary stent was placed into the common bile duct. Recommendations : My findings are described in the full procedure note, which is enclosed. If I can be of further assistance, please feel free to contact me at . Sincerely, Kamron Nguyen, 03/01/2024 4:27:19 PM This report has been signed electronically.
[2024-03-01 17:27] LABS: Allen Test Positive; Base Excess -9 mmol/L (-2 to +2); Bicarbonate 22.9 mmol/L (22-26); Blood Gas Specimen Type ART; Mode Not entered; O2 Delivery Device Cannula; PO2 81 mmHG (75-100); SITE R Radial; SO2 86 % (95-99); Time Given 17:25:48; Total Carbon Dioxide 26 mmol/L; pCO2 97.9 mmHg (35-45); pH 6.98 (7.35-7.45)
--- NOTE | 2024-03-01 17:27 | SUR.PHASEI ---
ANESTHESIA CALLED AT 1647, pt lung sounds dec, HR 120s, Systolic in 190s. pt will open eyes when talked to, but does not follow commands.
--- NOTE | 2024-03-01 17:36 | SUR.PHASEI ---
1650 ANESTHESIA AT BEDSIDE, HYDRALAZINE ORDERED AND GIVEN. [address] NAVARRO. PT SHORTLY AROUSED. HR DECREASING, SPO2 INC, BP DEC AT THIS TIME. SEE PACU SCORE.
[2024-03-01 18:11] LABS: Base Excess -10 mmol/L (-2 to +2); Bicarbonate 18.6 mmol/L (22-26); Blood Gas Specimen Type ART; Mode Not entered; O2 Delivery Device Cannula; PO2 68 mmHG (75-100); SITE L Brach; SO2 89 % (95-99); Time Given 18:09:27; Total Carbon Dioxide 20 mmol/L; pCO2 47.8 mmHg (35-45)
--- NOTE | 2024-03-01 18:11 | SUR.PHASEI ---
ABGS RECHECKED, PH 7.[address] GARCIA AWARE. NO FURTHER ORDERS. PT OK TO GO TO [facility].
[2024-03-01] MEDS: Bisoprolol Fumarate 5 MG Tablet PO (18:44)
[2024-03-01] MEDS: Lactulose 20 GM/30 ML UDC PO (22:20)
[2024-03-01] MEDS: Insulin Lispro 100 UNIT/ML INSULN.PEN SC (22:32)
[2024-03-01 22:58] LABS: Bedside Glucose 190 mg/dL (74-106)
[2024-03-02] VITALS (19 sets, daily range): BP systolic 122–181; BP diastolic 55–75; PULSE 71–91; RESP 15–16; TEMP 36.3–37.1; O2SAT 90–97; BMI 26.2
[2024-03-02] MEDS: Piperacil/Tazobactam 3.375 GM in 0.9% Normal Saline (50mL MB+) 50 ML IV ×3 (04:44→22:58)
--- NOTE | 2024-03-02 06:00 | EKG12_ITS ---
Test Reason : PRE OP Blood Pressure : / mmHG Vent. Rate : 081 BPM Atrial Rate : 081 BPM P-R Int : 176 ms QRS Dur : 098 ms QT Int : 410 ms P-R-T Axes : -29 074 047 degrees QTc Int : 476 ms Normal sinus rhythm Normal ECG Confirmed by Jared Menjivar ([id number]), editor news JUDIE BARRIGA ([id number]) on 03/03/2024 8:57:39 AM Referred By: JOSE Confirmed By:Jared Menjivar
[2024-03-02 06:14] LABS: Bedside Glucose 123 mg/dL (74-106)
[2024-03-02 06:37] LABS: Absolute Lymphocyte Count 0.96 X10^3/uL (0.83-4.51); Basophil# 0.05 X10^3/uL; Basophil% 0.6 % (0-1); Eosinophil# 0.21 X10^3/uL; Eosinophils% 2.6 % (0-5); Hematocrit 29.9 % (37-47); Hemoglobin 9.5 g/dL (12.0-15.0); Lymphocyte # 0.96 X10^3/ul (0.83-4.51); Lymphocyte % 11.9 % (19-41); Mean Corp Hgb Conc 31.8 g/dL (32-36); Mean Corpuscular Volume 97.7 fL (81-99); Mean Platelet Vol. 10.4 fl (6.2-12.0); Monocyte# 0.59 X10^3/uL; Monocyte% 7.3 % (0-10); NRBC Flagged by Analyzer 0 % (0-5); Neutrophil # 6.02 X10^3/uL (2.7-7.7); Neutrophil % 74.4 % (47-70); Platelet Count 259 K/mm3 (150-450); RBC Distribution Width CV 14.6 % (11.6-14.6); RBC Distribution Width SD 51.8 fl (35.1-43.9); Red Blood Count 3.06 M/mm3 (4.2-5.4); White Blood Count 8.1 K/mm3 (4.4-11.0)
[2024-03-02 07:19] LABS: ALB/GLOB Ratio 0.5 RATIO (0.9-2.4); AST(SGOT) 99 U/L (15-37); Alanine Aminotransfer ALT/SGPT 165 U/L (13-56); Albumin, Serum 2.1 g/dL (3.2-5.0); Alkaline Phosphatase 526 U/L (45-117); Anion Gap 10 (5-15); BUN 36 mg/dL (7-18); BUN/Creat Ratio 17.2 RATIO (10-20); Calcium,Total 8.3 mg/dL (8.5-10.1); Chloride 108 mmol/L (98-107); Creatinine, Serum 2.09 mg/dL (0.55-1.02); EST Glomerular Filtration Rate 24 mL/min (>60); Est Glom Filt Rate - Afr Amer 30 mL/min (>60); Estimated Creatinine Clearance 23.93 ml/min; Glucose 108 mg/dL (74-106); Magnesium 2.1 mg/dL (1.6-2.6); Phosphorus 4.7 mg/dL (2.5-4.9); Potassium 4.2 mmol/L (3.5-5.1); Protein, Total 6.1 g/dL (6.4-8.2); Sodium Level 137 mmol/L (136-145)
--- NOTE | 2024-03-02 07:19 | PN.GI_ITS ---
Subjective Subjective Patient underwent ERCP yesterday for acute obstructive jaundice. She was discovered to have choledocholithiasis. Choledocholithiasis was removed and biliary stent was placed. She is scheduled to undergo cholecystectomy today. Objective Data Objective Data Vital Signs: Vital Signs Temp Pulse Resp BP Pulse Ox O2 Del Method O2 Flow Rate 97.6 F L 86 16 154/58 H 95 Nasal Cannula 3 03/02/24 16:14 03/02/24 16:14 03/02/24 16:14 03/02/24 16:14 03/02/24 16:14 03/02/24 16:14 03/02/24 16:14 FiO2 4 03/01/24 17:30 Oxygen Flow Rate (L/min) 3 Oxygen Delivery Method Nasal Cannula Weight: 166 lb 14.239 oz Body Mass Index (BMI) 26.2 Intake & Output: Intake and Output for Last 24 Hours 02/29/24 03/01/24 03/02/24 23:59 23:59 23:59 Intake Total 1210 / 1210 2474 / 2674 460 / 460 Output Total 400 / 400 400 / 400 550 / 550 Balance 810 / 810 2074 / 2274 -90 / -90 Lab / Micro Data 03/02/24 05:12 03/02/24 05:12 Labs: Laboratory Results - last 24 hr 03/01/24 22:31: POC Glucose 190 H 03/02/24 04:49: POC Glucose 123 H 03/02/24 05:12: WBC 8.1, RBC 3.06 L, Hgb 9.5 L, Hct 29.9 L, MCV 97.7, MCH 31.0, MCHC 31.8 L, RDW Std Deviation 51.8 H, RDW Coeff of Tessa 14.6, Plt Count 259, MPV 10.4, Immature Gran % (Auto) 3.200 H, Neut % (Auto) 74.4 H, Lymph % (Auto) 11.9 L, [place] % (Auto) 7.3, Eos % (Auto) 2.6, Baso % (Auto) 0.6, Absolute Neuts (auto) 6.0, Absolute Lymphs (auto) 0.96, Nucleated RBC % 0, Sodium 137, Potassium 4.2, Chloride 108 H, Carbon Dioxide 19.0 L, Anion Gap 10, BUN 36 H, Creatinine 2.09 H , Estim Creat Clear Calc 23.93, Est GFR (MDRD) Af Amer 30 L, Est GFR (MDRD) Non- Af 24 L, BUN/Creatinine Ratio 17.2, Glucose 108 H, Hemoglobin A1c 5.9 H, Calcium 8.3 L, Phosphorus 4.7, Magnesium 2.1, Total Bilirubin 1.70 H, AST 99 H, ALT 165 H, Alkaline Phosphatase 526 H, Troponin I High Sens 18, Total Protein 6.1 L, A lbumin 2.1 L, Globulin 4.0, Albumin/Globulin Ratio 0.5 L 03/02/24 12:00: POC Glucose 119 H Micro: Microbiology 02/29/24 20:55 Mucosa - Nasopharyngeal Respiratory Panel (PCR) - Final 02/29/24 20:00 Urine, Clean Catch Streptococcus pneumoniae Antigen (M - Final 02/29/24 20:00 Urine, Clean Catch Legionella Antigen - Final ABG Data ABG results: ABG 03/01/24 03/01/24 17:23 18:07 Specimen Type ART ART Sample Site R Radial L Brach pH 6.98 L* 7.20 L Bicarbonate Actual 22.9 18.6 L Total CO2 26 20 Base Excess -9 L -10 L O2 Saturation 86 L 89 L O2 % 6.0 3.0 ABG pCO2 97.9 H* 47.8 H ABG pO2 81 68 L Ed Test Positive O2 Delivery Device Cannula Cannula Vent Mode Not entered Not entered Crit Call To/Read Back Yes Yes Blood Gas Notified [facility] Blood Gas Notified Time 17:25:48 18:09:27 Radiography Diagnostic Testing: Radiology Impression Endo Retro Cholangiopancreatogram 03/01/24 15:35 IMPRESSION: Fluoroscopic assistance for ERCP with biliary stent placement . Please see operative report for additional information. Electronically Signed: Zeyad Chapin MD at 4:46 EDT , Physical Exam Const alert, oriented x3, no apparent distress, average body habitus and well nourished HEENT head/scalp atraumatic and moist oral mucous membranes Head and Scalp: normocephalic Eyes Eyes Narrative: Mild scleral icterus Resp normal respiratory effort, no retractions, no use of accessory muscles and clear to auscultation bilaterally Resp Narrative: Diffusely diminished but clear Auscultation: Negative for rales, rhonchi or wheezes Cardio regular rate, regular rhythm, S1 normal heart sound, S2 normal heart sound, no murmurs, no rub, no gallops and no clicks GI normal to inspection, nondistended, normoactive bowel sounds, soft to palpation and non-tender GI Narrative: Tenderness has resolved Extremity no clubbing, cyanosis or edema Extremity Narrative: Pedal pulses are 2+ Neuro oriented x3, moves all extremities and no focal motor deficits Speech: speech normal Psych affect normal Psych Narrative: Eye contact is good, patient is very pleasant, interacts appropriately Assessment & Plan Assessment/Plan (1) Choledocholithiasis: (2) Abdominal pain, acute: (3) Jaundice: PLAN: Plan 78-year-old with past medical history of CKD, COPD, GERD who presents with abdominal pain and discovered to have obstructive jaundice secondary to choledocholithiasis. -Status post ERCP with stone removal postop day 1 -Patient is doing well and is ready to undergo cholecystectomy. -If patient does okay with cholecystectomy she can be DC'd to home with follow- up as an outpatient for stent removal. Charges/Coding Visit Charges Inpatient E&M: 19241 Subs Hosp L3
[2024-03-02] MEDS: Budesonide Respules 0.5 MG/2 ML AMPUL.NEB. INHALATION ×2 (07:38→20:35)
--- NOTE | 2024-03-02 07:50 | PN.SURG_ITS ---
Subjective Subjective Status post ERCP yesterday with stent placement some stones removed still has residual stone per note. Patient denies any abdominal pain. LFTs improved. Objective Data Objective Data Vital Signs: Vital Signs Temp Pulse Resp BP Pulse Ox O2 Del Method O2 Flow Rate 98.2 F 83 16 130/66 H 96 Nasal Cannula 3 03/02/24 06:25 03/02/24 07:39 03/02/24 07:39 03/02/24 06:25 03/02/24 07:39 03/02/24 07:39 03/02/24 07:39 FiO2 4 03/01/24 17:30 Oxygen Flow Rate (L/min) 3 Oxygen Delivery Method Nasal Cannula Weight: 166 lb 14.239 oz Body Mass Index (BMI) 26.2 Intake & Output: Intake and Output for Last 24 Hours 02/29/24 03/01/24 03/02/24 23:59 23:59 23:59 Intake Total 1210 / 1210 2474 / 2674 250 / 250 Output Total 400 / 400 400 / 400 550 / 550 Balance 810 / 810 2074 / 2274 -300 / -300 Lab / Micro Data 03/02/24 05:12 03/02/24 05:12 Labs: Laboratory Results - last 24 hr 03/01/24 12:52: POC Glucose 148 H 03/01/24 22:31: POC Glucose 190 H 03/02/24 04:49: POC Glucose 123 H 03/02/24 05:12: WBC 8.1, RBC 3.06 L, Hgb 9.5 L, Hct 29.9 L, MCV 97.7, MCH 31.0, MCHC 31.8 L, RDW Std Deviation 51.8 H, RDW Coeff of Tessa 14.6, Plt Count 259, MPV 10.4, Immature Gran % (Auto) 3.200 H, Neut % (Auto) 74.4 H, Lymph % (Auto) 11.9 L, [place] % (Auto) 7.3, Eos % (Auto) 2.6, Baso % (Auto) 0.6, Absolute Neuts (auto) 6.0, Absolute Lymphs (auto) 0.96, Nucleated RBC % 0, Sodium 137, Potassium 4.2, Chloride 108 H, Carbon Dioxide 19.0 L, Anion Gap 10, BUN 36 H, Creatinine 2.09 H , Estim Creat Clear Calc 23.93, Est GFR (MDRD) Af Amer 30 L, Est GFR (MDRD) Non- Af 24 L, BUN/Creatinine Ratio 17.2, Glucose 108 H, Calcium 8.3 L, Phosphorus 4.7, Magnesium 2.1, Total Bilirubin 1.70 H, AST 99 H, ALT 165 H, Alkaline Phosphatase 526 H, Total Protein 6.1 L, Albumin 2.1 L, Globulin 4.0, A lbumin/Globulin Ratio 0.5 L Micro: Microbiology 02/29/24 20:55 Mucosa - Nasopharyngeal Respiratory Panel (PCR) - Final 02/29/24 20:00 Urine, Clean Catch Streptococcus pneumoniae Antigen (M - Final 02/29/24 20:00 Urine, Clean Catch Legionella Antigen - Final ABG Data ABG results: ABG 03/01/24 03/01/24 17:23 18:07 Specimen Type ART ART Sample Site R Radial L Brach pH 6.98 L* 7.20 L Bicarbonate Actual 22.9 18.6 L Total CO2 26 20 Base Excess -9 L -10 L O2 Saturation 86 L 89 L O2 % 6.0 3.0 ABG pCO2 97.9 H* 47.8 H ABG pO2 81 68 L Ed Test Positive O2 Delivery Device Cannula Cannula Vent Mode Not entered Not entered Crit Call To/Read Back Yes Yes Blood Gas Notified [facility] Blood Gas Notified Time 17:25:48 18:09:27 Radiography Diagnostic Testing: Radiology Impression Endo Retro Cholangiopancreatogram 03/01/24 15:35 IMPRESSION: Fluoroscopic assistance for ERCP with biliary stent placement . Please see operative report for additional information. Electronically Signed: Zeyad Chapin MD at 4:46 EDT , Physical Exam Const oriented x3 and no apparent distress Resp Resp Narrative: Patient currently getting breathing treatment Cardio regular rate GI soft to palpation and non-tender Inspection: Negative for abdominal distention Assessment & Plan Assessment/Plan (1) Choledocholithiasis: (2) Choledocholithiasis: (3) Jaundice: (4) Hypoxia: PLAN: Plan Patient n.p.o./IV fluids. Plan for laparoscopic cholecystectomy today. Reviewed the anatomy with the patient and discussed the procedure: laparoscopic cholecystectomy with possible cholangiograms, possible open. Review risks including but not limited to bleeding, infection, hernia, bile leak, retained gallstones requiring another procedure ERCP- Endoscopic Retrograde Cholangiopancreatography, injury to another organ (bile ducts, common bile duct, small bowel, etc.) and conversion to an open procedure. All questions were answered. Patient CT was likely atelectasis patient is not having productive cough for infiltrates nor has her oxygenation needs increased. Mahsa Nagel M.D. Pager: [phone] [facility] [address] [place] [address], [address] [place] [address] Office: [phone]
[2024-03-02 10:26] LABS: Hemoglobin A1c 5.9 % (3.8-5.6)
--- NOTE | 2024-03-02 10:50 | CASEMGMT ---
RN CM into pt room, pt provided with medic alert information handouts at this time. Pt states she feels well with her performance with therapy today. She denies needing any further therapy post dc. She is aware that after surgery if she should change her mind to notify the RN TRACIE. Pt denies further needs at this time.
--- NOTE | 2024-03-02 11:06 | PN.HOSP_ITS ---
Reason for Visit Reason for Visit: Abdominal pain Subjective Subjective Patient states her abdominal pain is resolved since her ERCP yesterday. Anxiously awaiting her cholecystectomy later today. We did discuss that if all goes well and she tolerated diet well she may be able to go home tomorrow. She seems pleased with this. No complaints at this time. Objective Data Objective Data Vital Signs: Vital Signs Temp Pulse Resp BP Pulse Ox O2 Del Method O2 Flow Rate 98.2 F 83 16 130/66 H 94 Nasal Cannula 3 03/02/24 06:25 03/02/24 07:39 03/02/24 07:39 03/02/24 06:25 03/02/24 09:17 03/02/24 07:39 03/02/24 09:28 FiO2 4 03/01/24 17:30 Oxygen Flow Rate (L/min) 3 Oxygen Delivery Method Nasal Cannula Weight: 75.7 kg Body Mass Index (BMI) 26.2 Intake & Output: Intake and Output for Last 24 Hours 02/29/24 03/01/24 03/02/24 23:59 23:59 23:59 Intake Total 1210 / 1210 2474 / 2674 250 / 250 Output Total 400 / 400 400 / 400 550 / 550 Balance 810 / 810 2074 / 2274 -300 / -300 Lab / Micro Data 03/02/24 05:12 03/02/24 05:12 Labs: Laboratory Results - last 24 hr 03/01/24 12:52: POC Glucose 148 H 03/01/24 22:31: POC Glucose 190 H 03/02/24 04:49: POC Glucose 123 H 03/02/24 05:12: WBC 8.1, RBC 3.06 L, Hgb 9.5 L, Hct 29.9 L, MCV 97.7, MCH 31.0, MCHC 31.8 L, RDW Std Deviation 51.8 H, RDW Coeff of Tessa 14.6, Plt Count 259, MPV 10.4, Immature Gran % (Auto) 3.200 H, Neut % (Auto) 74.4 H, Lymph % (Auto) 11.9 L, [place] % (Auto) 7.3, Eos % (Auto) 2.6, Baso % (Auto) 0.6, Absolute Neuts (auto) 6.0, Absolute Lymphs (auto) 0.96, Nucleated RBC % 0, Sodium 137, Potassium 4.2, Chloride 108 H, Carbon Dioxide 19.0 L, Anion Gap 10, BUN 36 H, Creatinine 2.09 H , Estim Creat Clear Calc 23.93, Est GFR (MDRD) Af Amer 30 L, Est GFR (MDRD) Non- Af 24 L, BUN/Creatinine Ratio 17.2, Glucose 108 H, Hemoglobin A1c 5.9 H, Calcium 8.3 L, Phosphorus 4.7, Magnesium 2.1, Total Bilirubin 1.70 H, AST 99 H, ALT 165 H, Alkaline Phosphatase 526 H, Total Protein 6.1 L, Albumin 2.1 L, Globulin 4.0, Albumin/Globulin Ratio 0.5 L Micro: Microbiology 02/29/24 20:55 Mucosa - Nasopharyngeal Respiratory Panel (PCR) - Final 02/29/24 20:00 Urine, Clean Catch Streptococcus pneumoniae Antigen (M - Final 02/29/24 20:00 Urine, Clean Catch Legionella Antigen - Final ABG Data ABG results: ABG 03/01/24 03/01/24 17:23 18:07 Specimen Type ART ART Sample Site R Radial L Brach pH 6.98 L* 7.20 L Bicarbonate Actual 22.9 18.6 L Total CO2 26 20 Base Excess -9 L -10 L O2 Saturation 86 L 89 L O2 % 6.0 3.0 ABG pCO2 97.9 H* 47.8 H ABG pO2 81 68 L Ed Test Positive O2 Delivery Device Cannula Cannula Vent Mode Not entered Not entered Crit Call To/Read Back Yes Yes Blood Gas Notified [facility] Blood Gas Notified Time 17:25:48 18:09:27 Radiography Diagnostic Testing: Radiology Impression Endo Retro Cholangiopancreatogram 03/01/24 15:35 IMPRESSION: Fluoroscopic assistance for ERCP with biliary stent placement . Please see operative report for additional information. Electronically Signed: Zeyad Chapin MD at 4:46 EDT , Physical Exam Const alert, oriented x3, no apparent distress, average body habitus and well nourished Constitutional Narrative: Elderly, white female, sitting up on the bedside commode, patient appears comfortable and nontoxic, appears older than stated age HEENT head/scalp atraumatic and moist oral mucous membranes Head and Scalp: normocephalic Eyes Eyes Narrative: Mild scleral icterus Resp normal respiratory effort, no retractions, no use of accessory muscles and clear to auscultation bilaterally Resp Narrative: Diffusely diminished but clear Auscultation: Negative for rales, rhonchi or wheezes Cardio regular rate, regular rhythm, S1 normal heart sound, S2 normal heart sound, no murmurs, no rub, no gallops and no clicks GI normal to inspection, nondistended, normoactive bowel sounds, soft to palpation and non-tender GI Narrative: Tenderness has resolved Extremity no clubbing, cyanosis or edema Extremity Narrative: Pedal pulses are 2+ Neuro oriented x3, moves all extremities and no focal motor deficits Speech: speech normal Psych affect normal Psych Narrative: Eye contact is good, patient is very pleasant, interacts appropriately Assessment & Plan Assessment/Plan (1) Abdominal pain, acute: (2) Choledocholithiasis: PLAN: Plan Abdominal pain/nausea secondary to choledocholithiasis -Transaminases remain elevated -ERCP was done on 03/01/2024 and she was found to have biliary papillary stenosis that appeared to be benign, choledocholithiasis with partial removal accomplished with balloon extraction and stent insertion, pancreatic sphincterotomy was performed and the biliary tree was swept. There was also a stent placed in the ventral pancreatic duct -Plan is for cholecystectomy today with Dr. Nagel -Continue n.p.o. -Continue IV Zosyn -Appreciate GI/general surgery input Acute transaminitis/hyperbilirubinemia -Alk phos and transaminases including AST and ALT are both dropping -Bilirubin is normalizing currently at 1.7 down from 6.0 on admission Acute hyponatremia - resolved Chronic normocytic anemia -Does take iron for history of iron deficiency -Hemoglobin remained stable -Continue to monitor BENITO on CKD stage IIIb -Serum creatinine on presentation was 2.06 and baseline appears to be between 1.5 and 1.8 -Down to 1.65 yesterday back up to 2.09 today likely related to anesthesia -Continue to monitor -Will run LR at 75 cc/h -Avoid nephrotoxins as able -Continue to monitor closely Chronic hypoxic respiratory failure secondary to COPD -Baseline dependence on 3-4 L -No change in oxygen requirement and despite read on CT of the abdomen pelvis pneumonia very unlikely -Hold home inhalers -Continue budesonide therapy -As needed albuterol -I-S -Continue home Singulair Allergic rhinitis -Continue home Singulair History of stroke/TIA -Hold aspirin for procedures and restart following Hyperlipidemia -Restart home statin with improvement in liver functions Hypertension -Continue home regimen with beta-nancie and losartan -As needed hydralazine DM-2 -On orals at baseline-hold -Hemoglobin A1c is 5.9 indicating good glycemic control with oral agents as an outpatient -Accu-Cheks and SSI ordered every 6 for now -Transition to before meals and at bedtime once we can start p.o. diet Depression/anxiety -Continue home medications History of tobacco abuse -Remote -Continue ongoing cessation DVT prophylaxis -Chemoprophylaxis on hold due to need for intervention -SCDs ordered CODE STATUS -DNR CCA okay for short-term intubation Charges/Coding Visit Charges Inpatient E&M: 19513 Subs Hosp L2
[2024-03-02] MEDS: Pantoprazole Sodium 40 MG in 0.9% Normal Saline (100mL MB+) 100 ML 330 MG IV ×2 (11:45→21:34)
[2024-03-02 12:30] LABS: Bedside Glucose 119 mg/dL (74-106)
--- NOTE | 2024-03-02 12:30 | RAD_ITS ---
INDICATION: LAPAROSCOPIC, CHOLECYSTECTOMY WITH IOC EXAMINATION/TECHNIQUE: 30 limited spot intraoperative films are presented for evaluation. Total Fluoroscopic Time: 5.3 seconds AND number of Fluoroscopic Images: 30 OR Radiation dosage index: 0.09207 gGym2. COMPARISON: Prior study dated: 03/01/2024 FINDINGS: There is injection of contrast into the cystic duct which partially fills the common bile duct. A biliary stent is in place. Contrast is not seen flowing into the duodenum on this sequence. There is narrowing of the lumen seen at the level of the mid duct where there is no further passage. RAD/Cholangiogram/ O R,Initial IMPRESSION: Intraoperative cholangiogram with biliary stent in place. Please refer to operative report for further information. Electronically Signed: Tra Wilson MD at 7:14 EDT ,
[2024-03-02 13:19] LABS: Troponin-I HS 18 pg/mL (3.0-54.0)
--- NOTE | 2024-03-02 13:30 | GALL_PTH ---
PATIENT: WING LIN LOC: MS3 U#:[id number] AGE/SX: 78/F ROOM: [facility] [place] RE02/29/[address]: Dr. Ying Jay DO : 1945 BED: 1 DIS: 03/03/2024 SPEC #: [id number] RECD: 03/02/24 16:24 STATUS: MARK REGeremias #: [id number] WILLIAM: 03/02/24 13:[address]: Mahsa Nagel DEPT: SURGICAL PATHOLOGY RECD BY: Radha Lowe ENTERED: 03/03/24 08:35 SP TYPE: GALLBLADDE OT DR: MD Dr. Ying Bonilla DO Dr. Robert Lindsay, DO Dr. Tamera Robotham, MD Tissues: Gallbladder, NOS Procedures: Surgery Specimen Level III Comments: @ Ordering doctor for SUIII edited from to @ by PREMA at 03/03/24913 @ Submitting doctor edited from to @ by PREMA at 03/03/2414 HEADER OPERATION: Laparoscopic, cholecystectomy with IOC PRE-OP DIAGNOSIS: Choledocholithiasis TISSUE SUBMITTED: Gallbladder MICROSCOPIC DIAGNOSIS Gallbladder, cholecystectomy: Acute and chronic cholecystitis, cholelithiasis. Rokitansky-Aschoff sinuses. AM/mr 03/04/2024 MICROSCOPIC DESCRIPTION Slides are reviewed. GROSS DESCRIPTION Received is one container labeled with the patient's name and designated gallbladder. The specimen consists of a gallbladder measuring 5.0 x 3.0 x 2.0 cm. The external surface is smooth and glistening. Focally, it is granular, hemorrhagic and contains cautery artifact. The lumen of the gallbladder contains yellow-green mucoid bile and a single oval dark batista-black calculus ranging in size from 2.0 cm in greatest dimension. The mucosa is bile-stained and without any mass lesions. The gallbladder wall averages 0.2 cm in thickness and is free of mass lesions. Descriptive Catalog Librarian sections of the gallbladder and the cystic duct at margin of resection are submitted in one cassette. / AM:mr 03/03/24 TC:2 CPT: 31705a6
[2024-03-02] MEDS: Lactated Ringers 1,000 ML 75 ML IV (14:09)
--- NOTE | 2024-03-02 14:38 | OP.PCM_ITS ---
Report of Operation Date of Procedure: 03/02/24 Pre-Operative Diagnosis: Cholelithiasis, choledocholithiasis status post ERCP Post-Operative Diagnosis: Same Surgery/Procedure Performed:: Laparoscopic cholecystectomy with cholangiogram Surgeon: Mahsa Nagel marine propulsion technician: Torito Munoz Type of Anesthesia: General/Supplemental Anesthesiologist: Antonio Dodson Special Medications: Zosyn 3.375 g IV every 8 on the floor given in for choledocholithiasis and cholelithiasis Specimen's removed: gallbladder and stone Estimated Blood Loss (mL): 20 cc Description of Procedure: Indications: this is a 78 year-old female who developed abdominal pain/nausea/vomiting and on workup was found to have cholelithiasis, with a normal common bile duct. Laparoscopic cholecystectomy was elected. Description procedure: The patient was placed on operating table in supine position. A timeout was completed verifying correct patient, procedure, site, position and special equipment prior to beginning procedure. General Anesthesia was induced. The abdomen was prepped and draped in usual sterile fashion. An incision was made in the natural skin line above the umbilicus. The fascia was elevated and incised. The peritoneum was elevated and incised. Entry into the peritoneum was confirmed visually and no bowel was noted in the vicinity of the incision. Bruno trocar was placed. The abdomen was insufflated with carbon dioxide to a pressure of 12-15 mmHg. Patient tolerated insufflation well. The laparoscope was then inserted and abdomen inspected. No injuries from initial trocar placement were noted. Additional trochars were then inserted in the following locations 5 mm trocar in the epigastrium and 2 more 5 mm trochars along the right costal margin. The abdomen was inspected no abnormalities were found. The table is placed in reverse Trendelenburg position with the right side up. The dome of the gallbladder was grasped with atraumatic grasper passed through the lateral port and retracted over the dome of the liver. Infundibulum was then grasped with atraumatic grasper through the midclavicular port and retracted to the right lower quadrant. This maneuver exposed Calot's triangle. The peritoneum overlying the gallbladder infundibulum was then incised and cystic duct and artery identified and circumferentially dissected. Maria catheter was used for cholangiograms. The cholangiogram showed filling of the cystic duct to the common bile duct but also filled gallbladder-CBD stent seen. The cystic duct and artery were then doubly clipped and divided close to the gallbladder. The gallbladder then dissected from its peritoneal attachments by electrocautery. Hemostasis was checked and the gallbladder and contained stones were removed using the endoscopic retrieval bag through the umbilical port. The gallbladder is passed off table as specimen. The gallbladder fossa was irrigated with saline and erbe was used for hemostasis of gallbladder fossa. There is no evidence of bleeding from the gallbladder fossa or cystic artery leakage of bile from the cystic duct stump. Secondary trochars removed under direct vision. No bleeding was noted the trocar sites. The laparoscope was withdrawn and umbilical trocar removed. The abdomen was allowed to collapse. The fascia of the 12 mm trocar was closed with a [id number] 0 Vicryl suture. The skin was closed with sutures of 4-0 Monocryl and Steri-Strips. The patient was extubated. The patient tolerated procedure well and was taken to the postanesthesia care unit in stable condition. Complications none
[2024-03-02] MEDS: Bupivacaine Mpf 0.5% 30 ML VIAL (14:40)
--- NOTE | 2024-03-02 14:44 | DCINST_ITS ---
Discharge Instructions Diet Discharge Diet: Light diet - advance as tolerated Activity Discharge Activity: May Not Drive (while taking narcotic pain medications.) May shower in (days): 1 Lifting Restrictions: no lifting >20 lbs x 2 wks, no strenuous exercise for 4 wks Dressing / Incision Call your doctor if your incision/area has: Continuous Slow Oozing, Sudden Increased Bleeding, Increased Pain/ Swelling, Increased Redness, Foul Smelling Discharge and Swelling at the incision site Call your doctor if you observe: Fever of 101 or Higher Remove Dressing in: 2 days Cleanse incision/area with: Soap & Water Additional Dressing/Incision Instructions:: Steri-Strips will fall off in 7 to 10 days, if they do not fall off okay to remove after 10 days. Follow Up Care Please Follow Up With: Mahsa Nagel MD When: Call the office for a follow-up appointment 2 weeks; after 5 PM and on the weekends call [phone] with any concerns. Test Results: Test results from this visit will be discussed in further detail at your follow- up appointment, if applicable. Discharge Plan Admission Admit Date/Time: 02/29/24 17:06 Attending Provider: Ying Jay Primary Care Provider: Grady Mckeon Consulting Providers: Mahsa Nagel; Marsha Rodríguez Discharge Orders/Prescriptions Prescriptions: Held aspirin 81 MG tablet,chewable 81 mg PO DAILY@0800 Hold Instructions: Resume on 03/05/24. Patient Comments: HEALTH MAINTENANCE No Action bupropion HCl 150 MG tablet sustained-release 12 hr 150 mg PO BID Patient Comments: DEPRESSION lovastatin 40 MG tablet 40 mg PO QHS Patient Comments: REDUCES CHOLESTEROL venlafaxine 150 MG capsule,extended release 24hr 150 mg PO DAILY Patient Comments: MOOD cyanocobalamin (vitamin B-12) [Vitamin B-12] 1,000 MCG tablet 1,000 mg PO DAILY Patient Comments: VITAMIN SUPPLEMENT trazodone 150 MG tablet 150 mg PO QHS Patient Comments: SLEEP montelukast 10 MG tablet 10 mg PO DAILY Patient Comments: ALLERGIES albuterol sulfate [Ventolin HFA] 1 INHALER inhaler 1 - 2 puff inhalation Q4H PRN PRN (Reason: Sob &/Or Wheezing) Qty: 1 0RF bisoprolol fumarate 5 mg tablet 5 mg PO DINNER ferrous sulfate [FeroSul] 325 mg (65 mg iron) tablet 325 mg PO DAILY Patient Comments: TAKE 1 TABLET EVERY DAY losartan 25 mg tablet 25 mg PO DAILY Patient Comments: Take 1 tablet every day by oral route for 30 days. pioglitazone 30 MG tablet 30 mg PO DAILY@0800 cholecalciferol (vitamin D3) 125 mcg (5,000 unit) capsule 125 mcg PO DAILY oxycodone-acetaminophen 5-325 mg tablet 1 tab PO Q12H PRN (Reason: back pain) Patient Comments: TAKE 1 TABLET BY MOUTH EVERY 12 HOURS NEEDED FOR PAIN FOR 30 DAYS esomeprazole magnesium 40 mg capsule,delayed release(DR/EC) 40 mg PO DAILY aripiprazole 10 mg tablet 10 mg PO DAILY nystatin 100,000 unit/gram cream 1 applic topical BID Referrals / Follow Up: Grady Mckeon DO [Primary Care Provider] -
--- NOTE | 2024-03-02 15:26 | SUR.PHASEI ---
zosyn given in OR; see anesthesia charting
[2024-03-02] MEDS: Ferrous Sulfate 325 MG Tablet PO (16:28)
[2024-03-02] MEDS: Losartan Potassium 25 MG Tablet PO (16:28)
[2024-03-02] MEDS: Montelukast 10 MG Tablet PO (16:29)
[2024-03-02] MEDS: Polyethylene Glycol 3350 17 GM PACKET PO ×2 (16:29→22:55)
[2024-03-02] MEDS: Bisoprolol Fumarate 5 MG Tablet PO (16:30)
[2024-03-02] MEDS: Lactulose 20 GM/30 ML UDC PO (16:34)
[2024-03-02] MEDS: Insulin Lispro 100 UNIT/ML INSULN.PEN SC ×2 (16:59→23:10)
[2024-03-02 17:26] LABS: Bedside Glucose 215 mg/dL (74-106)
[2024-03-02] MEDS: oxyCODONE 5 MG Tablet PO (19:51)
[2024-03-02] MEDS: 0.9% Normal Saline (250mL Bag) 250 ML 15 ML IV (22:00)
[2024-03-02] MEDS: buPROPion (SR) 150 MG Tablet.SA PO (22:55)
[2024-03-02] MEDS: Atorvastatin Calcium 20 MG Tablet PO (22:55)
[2024-03-02] MEDS: traZODone 100 MG Tablet 150 MG PO (22:55)
[2024-03-02 23:33] LABS: Bedside Glucose 200 mg/dL (74-106)
[2024-03-03 00:14] VITALS: BMI 26.2
[2024-03-03 01:48] VITALS: BP 160/84; PULSE 99; RESP 15; TEMP 36.9; O2SAT 97
[2024-03-03] MEDS: Acetaminophen 325 MG Tablet 650 MG PO ×3 (01:59→13:55)
[2024-03-03 03:05] VITALS: RESP 15
[2024-03-03 03:07] VITALS: BMI 26.2
[2024-03-03 05:22] VITALS: BMI 25.7
[2024-03-03] MEDS: Piperacil/Tazobactam 3.375 GM in 0.9% Normal Saline (50mL MB+) 50 ML IV (06:27)
[2024-03-03 06:43] LABS: Hematocrit 32.1 % (37-47); Hemoglobin 9.9 g/dL (12.0-15.0); Mean Corp Hgb Conc 30.8 g/dL (32-36); Mean Corpuscular Hgb 30.4 pg (27.0-32.0); Mean Corpuscular Volume 98.5 fL (81-99); Mean Platelet Vol. 10.1 fl (6.2-12.0); Platelet Count 289 K/mm3 (150-450); RBC Distribution Width CV 14.5 % (11.6-14.6); Red Blood Count 3.26 M/mm3 (4.2-5.4); White Blood Count 9.7 K/mm3 (4.4-11.0)
[2024-03-03] MEDS: Budesonide Respules 0.5 MG/2 ML AMPUL.NEB. INHALATION (07:11)
[2024-03-03 07:12] VITALS: PULSE 79; RESP 18; O2SAT 99
[2024-03-03 07:17] LABS: Bedside Glucose 122 mg/dL (74-106)
[2024-03-03 07:20] LABS: ALB/GLOB Ratio 0.5 RATIO (0.9-2.4); AST(SGOT) 73 U/L (15-37); Alanine Aminotransfer ALT/SGPT 142 U/L (13-56); Albumin, Serum 2.3 g/dL (3.2-5.0); Alkaline Phosphatase 486 U/L (45-117); Anion Gap 9 (5-15); BUN 33 mg/dL (7-18); BUN/Creat Ratio 16.9 RATIO (10-20); Calcium,Total 8.7 mg/dL (8.5-10.1); Chloride 108 mmol/L (98-107); Creatinine, Serum 1.95 mg/dL (0.55-1.02); EST Glomerular Filtration Rate 26 mL/min (>60); Est Glom Filt Rate - Afr Amer 32 mL/min (>60); Estimated Creatinine Clearance 24.92 ml/min; Globulin 4.5 g/dL (2.2-4.2); Glucose 143 mg/dL (74-106); Potassium 4.9 mmol/L (3.5-5.1); Protein, Total 6.8 g/dL (6.4-8.2); Sodium Level 134 mmol/L (136-145)
--- NOTE | 2024-03-03 07:52 | PCM.PN.SRG ---
Subjective Subjective Patient is a 78 y/o F I am following for in conjunction with Dr. Nagel. She notes minimal amount of incisional soreness. She denies nausea, vomiting, fever. She is tolerating her current diet. Patients labs were reviewed. LFTs continue to decrease. Objective Data Objective Data Vital Signs: Vital Signs Temp Pulse Resp BP Pulse Ox O2 Del Method O2 Flow Rate 98.4 F 99 15 160/84 H 97 Nasal Cannula 3 03/03/24 01:48 03/03/24 01:48 03/03/24 03:05 03/03/24 01:48 03/03/24 01:48 03/03/24 03:05 03/03/24 03:05 FiO2 4 03/01/24 17:30 Oxygen Flow Rate (L/min) 3 Oxygen Delivery Method Nasal Cannula Weight: 164 lb 0.383 oz Body Mass Index (BMI) 25.7 Intake & Output: Intake and Output for Last 24 Hours 03/01/24 03/02/24 03/03/24 23:59 23:59 23:59 Intake Total 2474 / 2674 570 / 970 750 / 750 Output Total 400 / 400 850 / 850 600 / 600 Balance 2074 / 2274 -280 / 120 150 / 150 Lab / Micro Data 03/03/24 06:09 03/03/24 06:09 Labs: Laboratory Results - last 24 hr 03/02/24 05:12: Hemoglobin A1c 5.9 H, Troponin I High Sens 18 03/02/24 12:00: POC Glucose 119 H 03/02/24 16:57: POC Glucose 215 H 03/02/24 23:08: POC Glucose 200 H 03/03/24 06:09: WBC 9.7, RBC 3.26 L, Hgb 9.9 L, Hct 32.1 L, MCV 98.5, MCH 30.4, MCHC 30.8 L, RDW Std Deviation 52.0 H, RDW Coeff of Tessa 14.5, Plt Count 289, MPV 10.1, Sodium 134 L, Potassium 4.9, Chloride 108 H, Carbon Dioxide 17.0 L, Anion Gap 9, BUN 33 H, Creatinine 1.95 H, Estim Creat Clear Calc 24.92, Est GFR (MDRD) Af Amer 32 L, Est GFR (MDRD) Non-Af 26 L, BUN/Creatinine Ratio 16.9, Glucose 143 H, Calcium 8.7, Total Bilirubin 1.30 H, AST 73 H, ALT 142 H, Alkaline Phosphatase 486 H, Total Protein 6.8, Albumin 2.3 L, Globulin 4.5 H, Albumin/Globulin Ratio 0.5 L 03/03/24 06:58: POC Glucose 122 H Micro: Microbiology 02/29/24 20:55 Mucosa - Nasopharyngeal Respiratory Panel (PCR) - Final 02/29/24 20:00 Urine, Clean Catch Streptococcus pneumoniae Antigen (M - Final 02/29/24 20:00 Urine, Clean Catch Legionella Antigen - Final Radiography Diagnostic Testing: Radiology Impression Cholangiogram 03/02/24 12:30 IMPRESSION: Intraoperative cholangiogram with biliary stent in place. Please refer to operative report for further information. Electronically Signed: Tra Wilson MD at 7:14 EDT Reading Location ID and State: [facility] / [place] Tel , Service support , Physical Exam GI GI Narrative: Abdomen- soft, minimal tenderness at the incision sites. Incisions c/d/i. No erythema or infection noted. Op-sites intact Assessment & Plan Assessment/Plan (1) Choledocholithiasis: PLAN: I am following this patient in conjunction with Dr. Nagel. Patient is ready for discharge Follow-up in [address] Nagel Patient will also need an appointment with Dr. Nguyen as an outpatient as patient continues to have stones and 2 stents placed Charges/Coding Visit Charges Inpatient E&M: 43293 Subs Hosp L1 (no charge; post-op)
--- NOTE | 2024-03-03 07:57 | PN.GI_ITS ---
Subjective Subjective Patient underwent ERCP and cholecystectomy. She does not have any abdominal pain at this time. This is postop day 2 status post ERCP and postop day 1 status postcholecystectomy Objective Data Objective Data Vital Signs: Vital Signs Temp Pulse Resp BP Pulse Ox O2 Del Method O2 Flow Rate 97.5 F L 81 18 183/80 H 98 Nasal Cannula 3 03/03/24 13:53 03/03/24 13:53 03/03/24 13:53 03/03/24 13:53 03/03/24 13:53 03/03/24 13:53 03/03/24 13:53 FiO2 4 03/01/24 17:30 Oxygen Flow Rate (L/min) 3 Oxygen Delivery Method Nasal Cannula Weight: 164 lb 0.383 oz Body Mass Index (BMI) 25.7 Intake & Output: Intake and Output for Last 24 Hours 03/01/24 03/02/24 03/03/24 23:59 23:59 23:59 Intake Total 2474 / 2674 570 / 970 2675.50 / 2675.50 Output Total 400 / 400 850 / 850 1200 / 1200 Balance 2074 / 2274 -280 / 120 1475.50 / 1475.50 Lab / Micro Data 03/03/24 06:09 03/03/24 06:09 Labs: Laboratory Results - last 24 hr 03/02/24 23:08: POC Glucose 200 H 03/03/24 06:09: WBC 9.7, RBC 3.26 L, Hgb 9.9 L, Hct 32.1 L, MCV 98.5, MCH 30.4, MCHC 30.8 L, RDW Std Deviation 52.0 H, RDW Coeff of Tessa 14.5, Plt Count 289, MPV 10.1, Sodium 134 L, Potassium 4.9, Chloride 108 H, Carbon Dioxide 17.0 L, Anion Gap 9, BUN 33 H, Creatinine 1.95 H, Estim Creat Clear Calc 24.92, Est GFR (MDRD) Af Amer 32 L, Est GFR (MDRD) Non-Af 26 L, BUN/Creatinine Ratio 16.9, Glucose 143 H, Calcium 8.7, Total Bilirubin 1.30 H, AST 73 H, ALT 142 H, Alkaline Phosphatase 486 H, Total Protein 6.8, Albumin 2.3 L, Globulin 4.5 H, A lbumin/Globulin Ratio 0.5 L 03/03/24 06:58: POC Glucose 122 H Micro: Microbiology 02/29/24 20:55 Mucosa - Nasopharyngeal Respiratory Panel (PCR) - Final 02/29/24 20:00 Urine, Clean Catch Streptococcus pneumoniae Antigen (M - Final 02/29/24 20:00 Urine, Clean Catch Legionella Antigen - Final Radiography Diagnostic Testing: Radiology Impression Cholangiogram 03/02/24 12:30 IMPRESSION: Intraoperative cholangiogram with biliary stent in place. Please refer to operative report for further information. Electronically Signed: Tra Wilson MD at 7:14 EDT Reading Location ID and State: [address] [place] [address] Tel , Service support , Physical Exam Const alert, oriented x3, no apparent distress, average body habitus, no limitations and well nourished Constitutional Narrative: Elderly, white female, sitting up in a chair at the bedside, nursing and therapy at the bedside, patient appears comfortable and nontoxic, appears older than stated age General Appearance: cooperative, comfortable, well kempt and well developed Orientation / Consciousness: awake, oriented to person, oriented to place and oriented to time Exam Limitations: no limitations HEENT normocephalic, head/scalp atraumatic and moist oral mucous membranes; Negative for hearing grossly normal bilaterally HEENT Narrative: Mallampati 2, no thrush, mild hearing loss Eyes PERRL, EOMs intact bilaterally and conjunctivae normal Eyes Narrative: No scleral icterus Neck no lymphadenopathy and supple Neck Narrative: Trachea midline, no thyroid enlargement Resp normal respiratory effort, no retractions, no use of accessory muscles and clear to auscultation bilaterally Resp Narrative: Diffusely diminished but clear Auscultation: Negative for rales, rhonchi or wheezes Cardio regular rate, regular rhythm, S1 normal heart sound, S2 normal heart sound, no murmurs, no rub, no gallops and no clicks GI normal to inspection, nondistended, normoactive bowel sounds and soft to palpation GI Narrative: Mild diffuse tenderness secondary to postop Extremity no clubbing, cyanosis or edema Extremity Narrative: Pedal pulses are 2+ Skin no rashes or lesions noted, skin turgor normal and no jaundice Neuro oriented x3, CN's II-XII intact bilaterally, moves all extremities and no focal motor deficits Speech: speech normal Psych affect normal Psych Narrative: Eye contact is good, patient is very pleasant, interacts appropriately Assessment & Plan Assessment/Plan (1) Choledocholithiasis: (2) Abdominal pain, acute: (3) Jaundice: PLAN: Plan 78-year-old with past medical history of CKD, COPD, GERD who presents with abdominal pain and discovered to have obstructive jaundice secondary to choledocholithiasis. -Status post ERCP with stone removal postop day 1 -Patient is doing well and is ready to undergo cholecystectomy. -If patient does okay with cholecystectomy she can be DC'd to home with follow- up as an outpatient for stent removal. Charges/Coding Visit Charges Inpatient E&M: 58763 Subs Hosp L2
[2024-03-03 08:25] VITALS: BP 180/72; PULSE 82; RESP 18; TEMP 36.6; O2SAT 97
[2024-03-03] MEDS: Polyethylene Glycol 3350 17 GM PACKET PO (08:30)
[2024-03-03] MEDS: oxyCODONE 5 MG Tablet PO ×2 (08:30→13:55)
[2024-03-03] MEDS: ARIPiprazole 10 MG Tablet PO (08:30)
[2024-03-03] MEDS: buPROPion (SR) 150 MG Tablet.SA PO (08:30)
[2024-03-03] MEDS: guaiFENesin 10 ML UDC (200MG/10ML) 20 ML PO (08:30)
[2024-03-03] MEDS: Venlafaxine XR 150 MG Capsule PO (08:30)
[2024-03-03] MEDS: Ferrous Sulfate 325 MG Tablet PO (08:32)
[2024-03-03] MEDS: Losartan Potassium 25 MG Tablet PO (08:32)
[2024-03-03] MEDS: Montelukast 10 MG Tablet PO (08:32)
[2024-03-03 10:25] VITALS: O2SAT 96
[2024-03-03] MEDS: Pantoprazole Sodium 40 MG in 0.9% Normal Saline (100mL MB+) 100 ML 330 MG IV (10:35)
--- NOTE | 2024-03-03 11:30 | PCM.DC.SUM ---
Providers Date of Admission: 02/29/24 Date of Discharge: 03/03/24 Primary Care Physician: Dr. Grady Mckeon, Consultations 02/29/24 18:02 Consult: Gastroenterology Routine Consulting Provider: [facility] Reason for Consult: choledocholithasis for ERCP EMERGENT Consult: No Notified: Yes Date Notified: 02/29/24 Time Notified: 17:10 Method of Notification: Verbal Consult: General Surgery Routine Consulting Provider: Mahsa Nagel Reason for Consult: choledocholithasis EMERGENT Consult: No Notified: Yes Date Notified: 02/29/24 Time Notified: 17:10 Method of Notification: ED Physician Initiated Reason For Visit: ACUTE CHOLEDOCHOLITHASIS Diagnosis Discharge Diagnosis (1) Choledocholithiasis: Status: Acute Code(s): K80.50 - Calculus of bile duct without cholangitis or cholecystitis without obstruction Medications at Discharge Home Medications aspirin 81 mg chewable tablet 81 mg PO DAILY@0800 Heart health 12/27/16 bupropion HCl 150 mg tablet,12 hr sustained-release 150 mg PO BID mental health 12/27/16 cyanocobalamin (vitamin B-12) 1,000 mcg tablet (Vitamin B-12) 1,000 mg PO DAILY supplement 12/27/16 lovastatin 40 mg tablet 40 mg PO QHS cholesterol 12/27/16 montelukast 10 mg tablet 10 mg PO DAILY allergies 12/27/16 trazodone 150 mg tablet 150 mg PO QHS insomnia 12/27/16 venlafaxine 150 mg capsule,extended release 24 hr 150 mg PO DAILY depression 12/27/16 albuterol sulfate 90 mcg/actuation aerosol inhaler (Ventolin HFA) 1 - 2 puff inhalation Q4H PRN PRN Sob &/Or Wheezing ##1 12/30/16 bisoprolol fumarate 5 mg tablet 5 mg PO DINNER blood pressure 04/19/21 ferrous sulfate 325 mg (65 mg iron) tablet (FeroSul) 325 mg PO DAILY supplement 04/19/21 pioglitazone 30 mg tablet 30 mg PO DAILY@0800 diabetes 01/26/22 cholecalciferol (vitamin D3) 125 mcg (5,000 unit) capsule 125 mcg PO DAILY Supplement 01/31/22 oxycodone-acetaminophen 5 mg-325 mg tablet 1 tab PO Q12H PRN back pain 07/28/23 aripiprazole 10 mg tablet 10 mg PO DAILY 02/29/24 esomeprazole magnesium 40 mg capsule,delayed release 40 mg PO DAILY 02/29/24 nystatin 100,000 unit/gram topical cream 1 applic topical BID UNDER BREAST 02/29/24 acetaminophen 500 mg tablet (Tylenol Extra Strength) 1,000 mg (2 x 500 mg) PO Q6H 5 days #40 tabs 03/03/24 losartan 50 mg tablet 50 mg PO DAILY #30 tabs 03/03/24 oxycodone 5 mg tablet 5 mg PO Q6H PRN pain 3 days #12 tabs 03/03/24 Hospital Course Operations cholecystecomy (With cholangiogram) and ERCP Procedures EKG and - (Chest x-ray/gallbladder ultrasound/CT abdomen and pelvis) Summary of Care Provided Minutes Spent on Discharge: 40 Hospital Course: Mrs. Guardado is a 78-year-old white female who presented to the emergency department at [facility] on 02/29/2024 with a chief complaint of epigastric pain that had been ongoing for 3 to 4 days prior to presentation. She also reported it was radiating to the right upper quadrant and was sharp with intermittent nausea associated but no emesis. She is passing flatus and her last bowel movement was approximately 1 week prior to presentation. She does have a history of chronic hypoxic respiratory failure and is on 3 to 4 L of oxygen at baseline. Patient noted on presentation that she specifically has worsening symptoms after she eats fatty food. Vital signs on presentation showed a temperature of 97.4, heart rate 105, blood pressure was 158/74, respiratory was 18 oxygen saturation was initially 85% 4 L nasal cannula but then improved to 98% on 3 L nasal cannula. CBC showed a mild leukocytosis with a white count of 12.0 and a left shift was present with an 89.1% neutrophilia. She had a mild anemia at 10.9 and this appears to be close to her baseline. She had mild hyponatremia with a sodium of 127, BENIOT with a serum creatinine of 2.06 and a BUN of 41. Blood glucose level was 349 on presentation. Her bilirubin was 6 with a direct bilirubin of 4.58 and an AST of 211 with an ALT of 283. Her alkaline phosphatase was 697. Lipase was 81 with repeat at 57. A procalcitonin was obtained and found to be 1.06. Chest x-ray showed no acute findings. Gallbladder ultrasound showed gallstones. CT of the abdomen pelvis showed choledocholithiasis with bilateral lower lobe consolidation showing atelectasis versus infiltrates, 1 solitary gallstone and constipation. She was admitted to medical floor with consultation to gastroenterology and general surgery and started on Zosyn. 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 She did well with this procedure and her bilirubin and transaminases improved. She was then taken for cholecystectomy on 03/02/2024. Procedure was able to be done laparoscopically and a cholangiogram was performed at the time of the procedure. Cholangiogram noted biliary stent in place. Patient did well intraoperatively and postoperatively and was able to be started on a regular diet. Her pain was well-controlled with as needed Tylenol and oxycodone. She was evaluated by general surgery and they felt from their standpoint she was safe to be discharged home. We did note during her hospitalization that her blood pressure was fairly consistently elevated despite her home antihypertensive regimen so her home dose of losartan was increased from 25 to 50 mg a new prescription was written for this at the time of discharge in addition to her 3-day supply of oxycodone. I have asked her to follow-up with her primary care physician within the next week for blood pressure check and post hospital visit given her blood pressure goal is 130/80 and she was substantially higher than this during her hospital course. Her bilirubin had trended down to 1.3 at the time of discharge, AST 73, ALT 142 and alk phos was down to 486 and patient was asymptomatic. She will have a follow-up with Dr. Nguyen that was scheduled for her on 05/11/[address] Nagel. The patient is to call and be seen within the next 2 weeks for postsurgical follow-up. General surgery asked that we hold her aspirin until 03/05/2024. Patient was discharged home in stable condition on her home oxygen at 3 L on 03/03/2024. Discharge diagnoses: Abdominal pain/nausea-resolved Choledocholithiasis Acute cholecystitis Acute hyponatremia-resolved Transaminitis-resolving Hyperbilirubinemia-resolving Chronic normocytic anemia BENITO-resolved CKD stage IIIb Chronic hypoxic respiratory failure COPD Allergic rhinitis History of stroke/TIA Hyperlipidemia Hypertension DM-2 Anxiety Depression History of tobacco abuse Physical Exam Const alert, oriented x3, no apparent distress, average body habitus, no limitations and well nourished Constitutional Narrative: Elderly, white female, sitting up in a chair at the bedside, nursing and therapy at the bedside, patient appears comfortable and nontoxic, appears older than stated age General Appearance: cooperative, comfortable, well kempt and well developed Orientation / Consciousness: awake, oriented to person, oriented to place and oriented to time Exam Limitations: no limitations HEENT normocephalic, head/scalp atraumatic and moist oral mucous membranes; Negative for hearing grossly normal bilaterally HEENT Narrative: Mallampati 2, no thrush, mild hearing loss Eyes PERRL, EOMs intact bilaterally and conjunctivae normal Eyes Narrative: No scleral icterus Neck no lymphadenopathy and supple Neck Narrative: Trachea midline, no thyroid enlargement Resp normal respiratory effort, no retractions, no use of accessory muscles and clear to auscultation bilaterally Resp Narrative: Diffusely diminished but clear Auscultation: Negative for rales, rhonchi or wheezes Cardio regular rate, regular rhythm, S1 normal heart sound, S2 normal heart sound, no murmurs, no rub, no gallops and no clicks GI normal to inspection, nondistended, normoactive bowel sounds and soft to palpation GI Narrative: Mild diffuse tenderness secondary to postop Extremity no clubbing, cyanosis or edema Extremity Narrative: Pedal pulses are 2+ Skin no rashes or lesions noted, skin turgor normal and no jaundice Neuro oriented x3, CN's II-XII intact bilaterally, moves all extremities and no focal motor deficits Speech: speech normal Psych affect normal Psych Narrative: Eye contact is good, patient is very pleasant, interacts appropriately Weight / BMI Weight Weight: 74.4 kg Body Mass Index (BMI) 25.7 ABG / Lab / Microbiology Data 03/03/24 06:09 03/03/24 06:09 Laboratory: Laboratory Results - last 24 hr 03/02/24 05:12: Troponin I High Sens 18 03/02/24 12:00: POC Glucose 119 H 03/02/24 16:57: POC Glucose 215 H 03/02/24 23:08: POC Glucose 200 H 03/03/24 06:09: WBC 9.7, RBC 3.26 L, Hgb 9.9 L, Hct 32.1 L, MCV 98.5, MCH 30.4, MCHC 30.8 L, RDW Std Deviation 52.0 H, RDW Coeff of Tessa 14.5, Plt Count 289, MPV 10.1, Sodium 134 L, Potassium 4.9, Chloride 108 H, Carbon Dioxide 17.0 L, Anion Gap 9, BUN 33 H, Creatinine 1.95 H, Estim Creat Clear Calc 24.92, Est GFR (MDRD) Af Amer 32 L, Est GFR (MDRD) Non-Af 26 L, BUN/Creatinine Ratio 16.9, Glucose 143 H, Calcium 8.7, Total Bilirubin 1.30 H, AST 73 H, ALT 142 H, Alkaline Phosphatase 486 H, Total Protein 6.8, Albumin 2.3 L, Globulin 4.5 H, Albumin/Globulin Ratio 0.5 L 03/03/24 06:58: POC Glucose 122 H Microbiology: Microbiology 02/29/24 20:55 Mucosa - Nasopharyngeal Respiratory Panel (PCR) - Final 02/29/24 20:00 Urine, Clean Catch Streptococcus pneumoniae Antigen (M - Final 02/29/24 20:00 Urine, Clean Catch Legionella Antigen - Final Radiography Diagnostic Testing: Radiology Impression Cholangiogram 03/02/24 12:30 IMPRESSION: Intraoperative cholangiogram with biliary stent in place. Please refer to operative report for further information. Electronically Signed: Tra Wilson MD at 7:14 EDT Reading Location ID and State: [facility] Tel , Service support , D/C Instructions Discharge Diet: Light diet - advance as tolerated May shower in (days): 1 Call your doctor if your incision/area has: Continuous Slow Oozing, Sudden Increased Bleeding, Increased Pain/ Swelling, Increased Redness, Foul Smelling Discharge and Swelling at the incision site Call your doctor if you observe: Fever of 101 or Higher Cleanse incision/area with: Soap & Water Additional Dressing/Incision Instructions: Steri-Strips will fall off in 7 to 10 days, if they do not fall off okay to remove after 10 days. Please Follow Up With: Mahsa Nagel MD When: Call the office for a follow-up appointment 2 weeks; after 5 PM and on the weekends call [phone] with any concerns. Meaningful Use Info Meaningful Use Meaningful Use Diagnoses (Choose all that apply): None applicable Ischemic Stroke Statin Dosing Therapy Reference: STATIN DOSE THERAPY REFERENCE: * Patients > 75 years receive moderate or high dose statin therapy. * Patients 75 years or YOUNGER should receive HIGH intensity statin dose unless contraindicated. You will be required to document reason for non-treatment if statin daily dose does not meet guidelines. HIGH DOSE STATIN THERAPY DAILY Atorvastatin > than or = to 40 mg Rosuvastatin > than or = to 20 mg Amlodipine + Atorvastatin > than or = to 2.5/40 mg Ezetimibe + Simvastatin 10/80 mg Simvastatin 80mg Discharge Plan Admission Admit Date/Time: 02/29/24 17:06 Primary Reason for Your Visit: Abdominal pain Attending Provider: Ying Jay Primary Care Provider: Grady Mckeon Consulting Providers: Mahsa Nagel; Marsha Rodríguez Instructions Additional Instructions / Restrictions: 1. Your blood pressure was noted to be elevated while you are hospitalized despite being on your home medications. We increased your losartan from 25 mg to 50 mg daily. Please see your primary care physician within the next week for a blood pressure check. Your goal blood pressure should be less than 130/80. Discharge Orders/Prescriptions Prescriptions: New oxycodone 5 mg Tablet 5 mg PO Q6H PRN (Reason: pain) 3 Days Qty: 12 0RF losartan 50 mg tablet 50 mg PO DAILY Qty: 30 1RF acetaminophen [Tylenol Extra Strength] 500 mg tablet 1,000 mg PO Q6H 5 Days Qty: 40 0RF Continued bupropion HCl 150 MG tablet sustained-release 12 hr 150 mg PO BID Patient Comments: DEPRESSION lovastatin 40 MG tablet 40 mg PO QHS Patient Comments: REDUCES CHOLESTEROL venlafaxine 150 MG capsule,extended release 24hr 150 mg PO DAILY Patient Comments: MOOD cyanocobalamin (vitamin B-12) [Vitamin B-12] 1,000 MCG tablet 1,000 mg PO DAILY Patient Comments: VITAMIN SUPPLEMENT trazodone 150 MG tablet 150 mg PO QHS Patient Comments: SLEEP montelukast 10 MG tablet 10 mg PO DAILY Patient Comments: ALLERGIES albuterol sulfate [Ventolin HFA] 1 INHALER inhaler 1 - 2 puff inhalation Q4H PRN PRN (Reason: Sob &/Or Wheezing) Qty: 1 0RF bisoprolol fumarate 5 mg tablet 5 mg PO DINNER ferrous sulfate [FeroSul] 325 mg (65 mg iron) tablet 325 mg PO DAILY Patient Comments: TAKE 1 TABLET EVERY DAY pioglitazone 30 MG tablet 30 mg PO DAILY@0800 cholecalciferol (vitamin D3) 125 mcg (5,000 unit) capsule 125 mcg PO DAILY esomeprazole magnesium 40 mg capsule,delayed release(DR/EC) 40 mg PO DAILY aripiprazole 10 mg tablet 10 mg PO DAILY nystatin 100,000 unit/gram cream 1 applic topical BID Held aspirin 81 MG tablet,chewable 81 mg PO DAILY@0800 Hold Instructions: Resume on 03/05/24. Patient Comments: HEALTH MAINTENANCE oxycodone-acetaminophen 5-325 mg tablet 1 tab PO Q12H PRN (Reason: back pain) Hold Instructions: until off of oxycodone Patient Comments: TAKE 1 TABLET BY MOUTH EVERY 12 HOURS NEEDED FOR PAIN FOR 30 DAYS Discontinued losartan 25 mg tablet 25 mg PO DAILY Patient Comments: Take 1 tablet every day by oral route for 30 days. Referrals / Follow Up: Kamron Nguyen DO [Med Staff - Active Staff] - 05/11/24 8:00 am Grady Mckeon DO [Primary Care Provider] - Within 1 Week (Hospital follow-up and blood pressure check) Mahsa Nagel MD [Med Staff - Active Staff] - Within 2 Weeks (Please call office to schedule appointment) Disposition Disposition (needs filled in before D/C Order can be placed): Home, Self Care Charges/Coding Visit Charges Inpatient E&M: 55713 Disch Hosp >30min
--- NOTE | 2024-03-03 11:54 | CASEMGMT ---
Pt worked with therapy this morning and feels she did well. Pt denies any homegoing needs at this time.
[2024-03-03 13:52] VITALS: BMI 26.2
[2024-03-03 13:53] VITALS: BP 183/80; PULSE 81; RESP 18; TEMP 36.4; O2SAT 98
--- NOTE | 2024-03-05 07:26 | NURSING ---
ADDENDUM TO PACU SCORE 03/01/24 @ 1645: SPO2 WAS 90% ON 15 L SIMPLE MASK.
== END 2024-03-03 15:18 | disposition home or self-care (01) | DRG 418 ==
LOC: ED 17:15 → MS3 17:26
PROVIDERS: Anesthesiology; Internal Medicine Gastroenterology; Surgery; Admitting Provider Family Medicine; Emergency Provider Emergency Medicine; PCP Preventive Medicine Occupational Medicine; Visit Provider Internal Medicine
PROC: 0FC98ZZ Extirpation of Matter from Common Bile Duct, Via Natural or Artificial Opening Endoscopic (ICD-10-PCS; CPT 43260; principal; 2024-03-01 13:50)
PROC: 0FT44ZZ Resection of Gallbladder, Percutaneous Endoscopic Approach (ICD-10-PCS; CPT 47610; principal; 2024-03-02 13:10)
DX: K80.63 Calculus of gallbladder and bile duct with acute cholecystitis with obstruction (principal); J96.11 Chronic respiratory failure with hypoxia; N17.9 Acute kidney failure, unspecified; E87.1 Hypo-osmolality and hyponatremia; D63.1 Anemia in chronic kidney disease; E11.22 Type 2 diabetes mellitus with diabetic chronic kidney disease; N18.32 Chronic kidney disease, stage 3b; J44.9 Chronic obstructive pulmonary disease, unspecified; E11.65 Type 2 diabetes mellitus with hyperglycemia; I12.9 Hypertensive chronic kidney disease with stage 1 through stage 4 chronic kidney disease, or unspecified chronic kidney disease; F32.A Depression, unspecified; D50.9 Iron deficiency anemia, unspecified; E78.5 Hyperlipidemia, unspecified; F41.9 Anxiety disorder, unspecified; J30.9 Allergic rhinitis, unspecified; K21.9 Gastro-esophageal reflux disease without esophagitis; Z66 Do not resuscitate; Z99.81 Dependence on supplemental oxygen; Z79.82 Long term (current) use of aspirin; Z79.84 Long term (current) use of oral hypoglycemic drugs; Z79.899 Other long term (current) drug therapy; Z86.73 Personal history of transient ischemic attack (TIA), and cerebral infarction without residual deficits; Z87.891 Personal history of nicotine dependence
CPT/HCPCS: 36415; 36600; 71045; 74177; 74300; 74330; 76000; 76705; 80048; 80053; 80076; 82803; 82962; 83036; 83690; 83735; 84100; 84145; 84484; 85025; 85027; 87449; 87633; 87641; 88304; 93005; 94640; 94668; 94762; 97162; 97166; 97530; 97535; 99285; J7030; J7050; J7120; Q9967; A4216; J2405

== ENCOUNTER → 2024-03-26 | Outpatient (CLI) | payer MEDICARE, SELFPAY ==
[2024-03-26 09:52] LABS: ALB/GLOB Ratio 0.6 RATIO (0.9-2.4); AST(SGOT) 22 U/L (15-37); Alanine Aminotransfer ALT/SGPT 17 U/L (13-56); Albumin, Serum 2.9 g/dL (3.2-5.0); Alkaline Phosphatase 203 U/L (45-117); Anion Gap 3 (5-15); BUN 34 mg/dL (7-18); Calcium,Total 9.1 mg/dL (8.5-10.1); Chloride 108 mmol/L (98-107); EST Glomerular Filtration Rate 31 mL/min (>60); Est Glom Filt Rate - Afr Amer 37 mL/min (>60); Globulin 4.5 g/dL (2.2-4.2); Glucose 150 mg/dL (74-106); Potassium 5.1 mmol/L (3.5-5.1); Protein, Total 7.4 g/dL (6.4-8.2); Sodium Level 137 mmol/L (136-145)
== END | disposition home or self-care (01) ==
LOC: LAB 08:58
PROVIDERS: PCP Preventive Medicine Occupational Medicine; Referring Provider Nurse Practitioner Family; Visit Provider Nurse Practitioner Family
DX: I12.9 Hypertensive chronic kidney disease with stage 1 through stage 4 chronic kidney disease, or unspecified chronic kidney disease (principal); N18.32 Chronic kidney disease, stage 3b
CPT/HCPCS: 36415; 80053

== ENCOUNTER → 2024-04-23 | Outpatient (CLI) | payer MEDICARE, SELFPAY ==
[2024-04-23 09:39] LABS: Hemoglobin 10.3 g/dL (12.0-15.0); Mean Corp Hgb Conc 31.2 g/dL (32-36); Mean Corpuscular Hgb 30.4 pg (27.0-32.0); Mean Corpuscular Volume 97.3 fL (81-99); Platelet Count 176 K/mm3 (150-450); RBC Distribution Width CV 14.2 % (11.6-14.6); RBC Distribution Width SD 50.5 fl (35.1-43.9); Red Blood Count 3.39 M/mm3 (4.2-5.4); White Blood Count 6.1 K/mm3 (4.4-11.0)
[2024-04-23 10:00] LABS: Albumin, Serum 2.9 g/dL (3.2-5.0); BUN 43 mg/dL (7-18); BUN/Creat Ratio 23.4 RATIO (10-20); Calcium,Total 9.2 mg/dL (8.5-10.1); Chloride 108 mmol/L (98-107); Creatinine, Serum 1.84 mg/dL (0.55-1.02); EST Glomerular Filtration Rate 28 mL/min (>60); Est Glom Filt Rate - Afr Amer 34 mL/min (>60); Glucose 115 mg/dL (74-106); Phosphorus 3.7 mg/dL (2.5-4.9); Potassium 4.7 mmol/L (3.5-5.1); Sodium Level 137 mmol/L (136-145)
[2024-04-23 10:02] LABS: PTHIN 68.7 pg/mL (18.4-80.1)
== END | disposition home or self-care (01) ==
LOC: LAB.FUTURE 08:43 → LAB 08:44
PROVIDERS: PCP Preventive Medicine Occupational Medicine; Referring Provider Internal Medicine Nephrology; Visit Provider Internal Medicine Nephrology
DX: E11.22 Type 2 diabetes mellitus with diabetic chronic kidney disease (principal); D50.9 Iron deficiency anemia, unspecified; E21.1 Secondary hyperparathyroidism, not elsewhere classified
CPT/HCPCS: 36415; 80069; 83970; 85027

== ENCOUNTER 2024-05-27 09:36 | Day surgery (SDC) | payer MEDICARE, SELFPAY ==
[2024-05-27] VITALS (7 sets, daily range): BP systolic 113–162; BP diastolic 51–90; PULSE 85–93; RESP 16–18; TEMP 36.4–36.6; O2SAT 95–99; BMI 26.4
--- NOTE | 2024-05-27 | FLU_PTH ---
PATIENT: WING LIN LOC: EN U#:[id number] AGE/SX: 78/F ROOM: RE05/27/[address]: Dr. Kamron Nguyen DO : 1945 BED: DIS: 05/27/2024 SPEC #: [id number] RECD: 05/27/24 13:31 STATUS: MARK JOSE ALEJANDRO #: [id number] WILLIAM: 05/27/24 00:[address]: Kamron Nguyen DEPT: CYTOLOGY RECD BY: Alvarez Caba ENTERED: 05/27/24 13:33 SP TYPE: Fluid OTHR DR: Dr. Grady Mckeon DO Tissues: A - Biliary tract, NOS B - Pancreatic duct, NOS Procedures: Special Stain Group II Surgery Specimen Level IV Cytospin Fluid HEADER OPERATION: ERCP, stent pull PRE-OP DIAGNOSIS: History laparoscopic cholecystectomy, choledocholithiasis TISSUE SUBMITTED: A- Biliary stent for cytology, B- Pancreatic stent for cytology DIAGNOSIS CYTOLOGY A. Biliary stent for cytology (cytospin and cellblock): Negative for malignant cells. B. Pancreatic stent for cytology (cytospin and cellblock): Negative for malignant cells. SJ/mr 05/28/2024 COMMENT Clinical correlation and appropriate follow up are necessary. CYTOLOGY STUDY Slides are reviewed. CYTOLOGY GROSS A. Received is 1 black stent with 0.2 yellow-brown thick material labeled with the patient's name and and designated per the requisition as Biliary stent. Submitted for cytology preparation including cell block. B. Received is 1 black stent with 0.1 ml of white thick material labeled with the patient's name and and designated per the requisition as Pancreatic stent. Submitted for cytology preparation including cell block. Mr 05/28/2024 TC:5 CPT: 52024q1,11732p7
--- NOTE | 2024-05-27 09:51 | EKG12_ITS ---
Test Reason : PREOP Blood Pressure : / mmHG Vent. Rate : 086 BPM Atrial Rate : 086 BPM P-R Int : 196 ms QRS Dur : 090 ms QT Int : 368 ms P-R-T Axes : 062 055 047 degrees QTc Int : 440 ms Normal sinus rhythm Normal ECG When compared with ECG of 02-MAR-2024 05:13, T wave inversion no longer evident in Anterior leads Confirmed by Jared Menjivar ([id number]), commissioning editor CHICO MARRUFO ([id number]) on 06/11/2024 6:43:02 AM Referred By: Grady Mckeon Confirmed By:Jared Menjivar
--- NOTE | 2024-05-27 09:57 | PCM.PRE.AN2 ---
ASA Classification* ASA Classification ASA Classification: 3 Assessment & Plan Anesthesia* Anesthesia Assessment Anesthesia Assessment: Discussed sedation and/or anesthesia options, risks, benefits, and alternatives with patient/parents/legal guardian/POA. Questions invited. The patient/parents/legal guardian/POA seems to understand and agrees to proceed with anesthesia plan. Reviewed the physical assessment, medical history, allergy history and patient home medications list prior to surgery/procedure/anesthetic and documented any changes. Performed airway and anesthesia risk assessments. Anesthesia Type Anesthesia Type: General (see written pre-anesthesia record for full assessment) Anesthesia Focused Assessment* Airway Assessment Mouth opens: >3 cm Mallampati Score: II Focused Labs Anesthesia Preop lab: CBC WBC 6.1 K/mm3 (4.4-11.0) 04/23/24 08:55 RBC 3.39 M/mm3 (4.2-5.4) L 04/23/24 08:55 Hgb 10.3 g/dL (12.0-15.0) L 04/23/24 08:55 Hct 33.0 % (37-47) L 04/23/24 08:55 Plt Count 176 K/mm3 (150-450) 04/23/24 08:55 CHEMISTRY Potassium 4.7 mmol/L (3.5-5.1) 04/23/24 08:55 Sodium 137 mmol/L (136-145) 04/23/24 08:55 Magnesium 2.1 mg/dL (1.6-2.6) 03/02/24 05:12 Phosphorus 3.7 mg/dL (2.5-4.9) 04/23/24 08:55 BUN 43 mg/dL (7-18) H 04/23/24 08:55 Creatinine 1.84 mg/dL (0.55-1.02) H 04/23/24 08:55 Glucose 115 mg/dL (74-106) H 04/23/24 08:55 POC Glucose 122 mg/dL (74-106) H 03/03/24 06:58 TSH 1.74 uIU/mL (0.358-3.74) 01/20/20 06:20 COAG Pre-Assessment Diagnosis/Proposed Procedure Planned Operative Procedure(s): ERCP STENT REMOVAL Anesthesia History Anesthesia History - congressional aide: Anesthesia History - congressional aide Hx Hospitalization Yes: 02/202405/25/24 09:56 Any Problems With Anesthesia No 05/25/24 09:56 Cholinesterase deficiency No 05/25/24 09:56 You/Your Family Experience No 05/25/24 09:56 fever (hyperthermia) with Relationship Recent Exposure to Contagious No 03/02/24 04:52 Disease Does patient have nerve No 05/25/24 09:56 stimulator Patient instructed to have device shut off --Does patient have Pacemaker or ICD? When Was Last Pacemaker Check QUESTION #4 FULL TEXT: You/Your Family Experience fever (hyperthermia) with Anesthesia Last Oral Intake Last Oral intake: Last Oral Intake NPO since Meds taken in AM with sips of water? Meds patient instructed to take am of surgery PONV PONV - congressional aide: PONV - congressional aide Female Yes 05/25/24 09:56 HX of Motion Sickness No 05/25/24 09:56 HX of N/V After Surgery No 05/25/24 09:56 Non-Smoker Yes 05/25/24 09:56 Duration of Surgery greater Yes 05/25/24 09:56 than 60 minutes Number of Risk Factors 3 05/25/24 09:56 PONV Score Moderate Risk 05/25/24 09:56 Height & Weight Height & Weight: Anesthesia: Height & Weight Height 5 ft 6.93 in 03/02/24 11:49 Respiratory Assessment Respiratory Assessment - congressional aide: Respiratory Tract Infection Hx - congressional aide Hx Respiratory Tract Infection No 05/25/24 09:56 STOP Sleep Apnea STOP Sleep Apnea - congressional aide: STOP Sleep Apnea - congressional aide Hx Hypertension Yes: CONTROLLED WITH MED 05/25/24 09:56 Hx Sleep Apnea No 05/25/24 09:56 CPAP BIPAP Do you snore loudly (louder Yes 05/25/24 09:56 than talking or can be heard Do you often feel tired/ Yes 05/25/24 09:56 fatigued/ sleepy during daytime? Has anyone observed you stop No 05/25/24 09:56 breathing during sleep? STOP Results Positive 05/25/24 09:56 QUESTION #5 FULL TEXT : Do you snore loudly (louder than talking or can be heard through closed doors)? Tobacco Use History Tobacco Use History - congressional aide: Tobacco Use History - congressional aide Tobacco Use Non-smoker 02/27/21 07:36 Smoking Status Former smoker 05/25/24 09:56 Hx Tobacco Use No 05/25/24 09:56 Years Smoking Packs Smoked per Day Smoking Cessation Date was Yes - quit smoking within 15 05/25/24 09:56 within the last 15 years years Hx Smoking Cessation Date 10/13/12 05/25/24 09:56 Hx Smoking Cessation No 05/25/24 09:56 Counseling Hematologic Medial History Hematologic Hx - congressional aide: Hematologic Medical Hx - psychiatric registered nurse Hx of Blood Transfusion No 05/25/24 09:56 Hx of Transfusion in last 3 No 05/25/24 09:56 Months Date of Last Transfusion (if within last 3 months) Ever experience any problems No 05/25/24 09:56 with transfusion(s)? Specify any problems Hx of Preganancy in last 3 No 05/25/24 09:56 Months Nurse Filling Out Transfusion DSCHRIBER 05/25/24 09:56 & Questions: Date: 05/25/24 05/25/24 09:56 Time: 09:58 05/25/24 09:56 Patient unable to answer at this time (ie. confused, unrespo /Reproduction History /Reproductive History - congressional aide: /Reproductive Hx- congressional aide Hx Now No 05/25/24 09:56 Gestational Age (in weeks): EDC: Hx Hx Para Hx Section SAB No 05/25/24 09:56 [facility] Medical History (Updated 05/25/24 @ 10:05 by Destiney Vazquez) Wears glasses Wears dentures Diabetes Walker as ambulation aid Arthritis Hepatitis High cholesterol Easy bruising Back pain Syncope Dietary restriction History of hiatal hernia Gastric reflux On home oxygen therapy Shortness of breath on exertion Leg cramps History of pain when walking History of edema History of irregular heartbeat CKD (chronic kidney disease), stage IV Chronic hypoxic respiratory failure, on home oxygen therapy Anxiety and depression Chronic obstructive pulmonary disease Iron deficiency anemia Hyperlipidemia Diabetes mellitus Former smoker Stroke/cerebrovascular accident Hypertension Emphysema of lung CKD stage 4 due to type 1 diabetes mellitus Home Medications ?Medication ?Instructions ?Recorded ?Last Taken ?Type aspirin 81 mg chewable tablet 81 mg PO DAILY@0800 Heart health 12/27/16 07/28/23 History bupropion HCl 150 mg tablet,12 hr 150 mg PO BID mental health 12/27/16 07/28/23 History sustained-release cyanocobalamin (vitamin B-12) 1,000 mg PO DAILY supplement 12/27/16 07/28/23 History 1,000 mcg tablet (Vitamin B-12) lovastatin 40 mg tablet 40 mg PO QHS cholesterol 12/27/16 07/27/23 History montelukast 10 mg tablet 10 mg PO DAILY allergies 12/27/16 07/28/23 History trazodone 150 mg tablet 150 mg PO QHS insomnia 12/27/16 07/27/23 History venlafaxine 150 mg 150 mg PO DAILY depression 12/27/16 07/28/23 History capsule,extended release 24 hr albuterol sulfate 90 mcg/actuation 1 - 2 puff inhalation Q4H PRN PRN 12/30/16 01/19/20 Rx aerosol inhaler (Ventolin HFA) Sob &/Or Wheezing ##1 bisoprolol fumarate 5 mg tablet 5 mg PO DINNER blood pressure 04/19/21 07/27/23 History pioglitazone 30 mg tablet 30 mg PO DAILY@0800 diabetes 01/26/22 07/28/23 History oxycodone-acetaminophen 5 mg-325 1 tab PO Q12H PRN back pain 07/28/23 07/28/23 History mg tablet aripiprazole 10 mg tablet 10 mg PO DAILY 02/29/24 Unknown History esomeprazole magnesium 40 mg 40 mg PO DAILY 02/29/24 Unknown History capsule,delayed release losartan 50 mg tablet 50 mg PO DAILY #30 tabs 03/03/24 Unknown Rx glimepiride 2 mg tablet 2 mg PO BID 05/11/24 Unknown History Allergy/AdvReac Type Severity Reaction Status Date / Time No Known Allergies Allergy Verified 05/25/24 09:51 Family History Mother Diabetes Heart disease Hypertension Father Diabetes Heart disease Hypertension Surgical History (Updated 05/25/24 @ 10:05 by Destiney Vazquez) History of ERCP Hx laparoscopic cholecystectomy Status post open reduction with internal fixation (ORIF) of fracture of ankle Social History household members: spouse Smoking Status: Former smoker how long ago did patient quit smoking: Smoked 2 ppd until ~ 10 years ago since teen until quit. alcohol intake: never substance use type: does not use Review of Systems (Anesthesia) ROS Narrative System reviewed and no additional complaints, except as documented.
[2024-05-27] MEDS: Lactated Ringers 1,000 ML 15 ML IV (10:24)
[2024-05-27 10:42] LABS: Bedside Glucose 87 mg/dL (74-106)
--- NOTE | 2024-05-27 11:16 | HP.PCM_ITS ---
History and Physical Date of Admission: 05/27/24 WING LIN, is a 78 F who presents to the office today for [facility] hospitalization 02.29.24 - 03.03.24 abd pain - RUQ sharp and intermittent. Has not had a bm in 1 week abd/pelvis 02.29.24 Choledocholithiasis. Bilateral pneumonia. There is a solitary gallstone. Constipation. Other findings as above. ERCP 03.01.24 Biliary papillary stenosis, benign. Choledocholithiasis was found. Partial removal was accomplished with balloon extraction; a stent was inserted. A pancreatic sphincterotomy was performed. The biliary tree was swept. One temporary stent was placed into the ventral pancreatic duct. One temporary stent was placed into the common bile duct. Cholecystectomy 03.02.24 *BGI established 05.11.24 pt reports that she is feeling well since having her gall bladder removed. Pt reports continued constipation; having a hard bm every 3-4 days; denies blood in the stool. Denies other GI symptoms of concern. Exam Const General: cooperative and comfortable Nutritional Appearance: average body habitus and well nourished HENMT Head: normal to inspection Ears: hearing grossly normal bilaterally Nose: external nose normal Face and sinus: normal facial exam Mouth: oral mucosae normal Throat: posterior oropharynx normal Eyes General: appearance normal, both eyes and all related structures Neck Neck: normal visual inspection Chest Chest palpation & inspection: normal inspection of the chest and normal palpation of entire chest wall Resp Effort & Inspection: normal respiratory effort Auscultation: Bilateral: Clear to Auscultation Cardio Palpation: normal PMI Rate: regular rate Rhythm: regular rhythm GI Inspection: normal to inspection Auscultation: normal bowel sounds Percussion: normal to percussion Palpation: no hepatosplenomegaly Skin General: no rashes or lesions noted Neuro General: patient alert Extrem General: normal to inspection Psych Affect: normal affect Assessment and Plan Assessment and Plan (1) Hx laparoscopic cholecystectomy: Status: Acute (2) Choledocholithiasis: Status: Resolved Plan: 78-year-old with COPD on 3 L oxygen at baseline, CKD who arrives here status post ERCP with stone removal and stent placement and status post cholecystectomy. She is doing very well. She is not having any nausea, vomiting or diarrhea status post gallbladder removal. Her urine is back to normal color. Her stools are normal color. She has not been back in the hospital since being discharged. Recommendations: -ERCP with stent removal or replacement for distal biliary stricture I have examined the patient and the H&P has been reviewed. There are no clinical changes since date of exam.
--- NOTE | 2024-05-27 11:40 | RAD_ITS ---
EXAM: ERCP CLINICAL INDICATION: PAIN TECHNIQUE: Endoscopy and cannulation were carried out by the referring physician. Fluoroscopic images of ERCP were obtained. Fluoroscopy time: 63 seconds. Number of fluoroscopic images: 10. Radiation dose: 13.63 mGy COMPARISON: No relevant prior studies available. FINDINGS: The common bile duct is mildly dilated. Multiple filling defects are seen in some of the images which may be due to retained stones or air bubbles. Images were obtained for documentation. No radiologist was present. RAD/ERCP Biliary/Pancreas IMPRESSION: ERCP as described above. Electronically Signed: Johny Sykes MD at 13:20 EDT ,
--- NOTE | 2024-05-27 12:07 | OP.ERCP_ITS ---
Patient Name: Martha Johnson Procedure Date: 05/27/2024 11:17 AM Date of : 1945 Age: 78 Procedure: ERCP Indications: Biliary stent removal, Pancreatic stent removal Providers: Kamron Nguyen DO Referring MD: Kamron Nguyen DO Medicines: Monitored Anesthesia Care Patient Profile: This is a 78 year old female. Refer to note in patient chart for documentation of history and physical. Patient has symptoms of acute dyspepsia and chronic jaundice. Complications: No immediate complications. Procedure: Pre-Anesthesia Assessment: - Prior to the procedure, a History and Physical was performed, and patient medications and allergies were reviewed. The patient is competent. The risks and benefits of the procedure and the sedation options and risks were discussed with the patient. All questions were answered and informed consent was obtained. Patient identification and proposed procedure were verified by the physician in the pre-procedure area. Mental Status Examination: alert and oriented. Airway Examination: normal oropharyngeal airway and neck mobility. Respiratory Examination: clear to auscultation. CV Examination: normal. Prophylactic Antibiotics: The patient does not require prophylactic antibiotics. Prior Anticoagulants: The patient has taken no anticoagulant or antiplatelet agents. ASA Grade Assessment: III - A patient with severe systemic disease. After reviewing the risks and benefits, the patient was deemed in satisfactory condition to undergo the procedure. The anesthesia plan was to use general anesthesia. Immediately prior to administration of medications, the patient was re-assessed for adequacy to receive sedatives. The heart rate, respiratory rate, oxygen saturations, blood pressure, adequacy of pulmonary ventilation, and response to care were monitored throughout the procedure. The physical status of the patient was re-assessed after the procedure. After obtaining informed consent, the scope was passed under direct vision. Throughout the procedure, the patient's blood pressure, pulse, and oxygen saturations were monitored continuously. The Duodenoscope was introduced through the mouth, and advanced to the duodenum and used to inject contrast into the bile duct and ventral pancreatic duct. The ERCP was accomplished without difficulty. The patient tolerated the procedure well. Scope In: 11:44:43 AM Scope Out: 11:56:25 AM Total Procedure Duration Time 0 hours 11 minutes 42 seconds Findings: The tree scout film was normal. The esophagus was successfully intubated under direct vision. The scope was advanced to a normal major papilla in the descending duodenum without detailed examination of the pharynx, larynx and associated structures, and upper GI tract. The upper GI tract was grossly normal. The bile duct was deeply cannulated with the short-nosed traction sphincterotome. Contrast was injected. I personally interpreted the bile duct and pancreatic duct images. There was brisk flow of contrast through the ducts. Image quality was adequate. Contrast extended to the entire biliary tree. Opacification of the entire biliary tree except for the cystic duct and gallbladder was successful. The maximum diameter of the ducts was 12 mm. The lower third of the main bile duct contained one stone, which was 6 mm in diameter. The entire biliary tree except for the cystic duct and gallbladder were moderately dilated and diffusely dilated, with a stone causing an obstruction. The largest diameter was 12 mm. A cholecystectomy had been performed. A long 0.025 inch Jagwire was passed into the biliary tree. A 5 mm biliary sphincterotomy was made with a traction (standard) sphincterotome using ERBE electrocautery. There was no post-sphincterotomy bleeding. The biliary tree was swept with a 12 mm balloon starting at the bifurcation. Sludge was swept from the duct. All stones were removed. One stent was removed from the biliary tree using a snare and sent for cytology. The stent was found to be partially occluded via the water column test. One stent was removed from the pancreatic duct using a snare and sent for cytology. Dilation of the left main hepatic duct with 7 Fr catheter dilator was successful. Impression: - The biliary system were moderately dilated, with a stone causing an obstruction. - The patient has had a cholecystectomy. - Choledocholithiasis was found. Complete removal was accomplished by biliary sphincterotomy and balloon extraction. - A biliary sphincterotomy was performed. - The biliary tree was swept. - One stent was removed from the biliary tree. Procedure Code(s): --- Professional --- 62422, Endoscopic retrograde cholangiopancreatography (ERCP); with removal of foreign body(s) or stent(s) from biliary/pancreatic duct(s) 05215, Endoscopic retrograde cholangiopancreatography (ERCP); with removal of calculi/debris from biliary/pancreatic duct(s) 73256, Endoscopic retrograde cholangiopancreatography (ERCP); with sphincterotomy/papillotomy 90907, 26, Combined endoscopic catheterization of the biliary and pancreatic ductal systems, radiological supervision and interpretation 86927, Unlisted procedure, biliary tract CPT copyright 2021 [employer]. All rights reserved. The codes documented in this report are preliminary and upon system engineer review may be revised to meet current compliance requirements. Kamron Nguyen DO 05/27/2024 12:07:29 PM This report has been signed electronically. Number of Addenda: 0 Note Initiated On: 05/27/2024 11:17 AM
--- NOTE | 2024-05-27 12:07 | OP.CCLET_ITS ---
05/27/2024 Grady Mckeon [address] [place] [address] Re : ERCP procedure for Martha Johnson Dear Dr. Mckeon This procedure was performed on May. My impressions and recommendations are as follows: Impressions : - The biliary system were moderately dilated, with a stone causing an obstruction. - The patient has had a cholecystectomy. - Choledocholithiasis was found. Complete removal was accomplished by biliary sphincterotomy and balloon extraction. - A biliary sphincterotomy was performed. - The biliary tree was swept. - One stent was removed from the biliary tree. Recommendations : My findings are described in the full procedure note, which is enclosed. If I can be of further assistance, please feel free to contact me at . Sincerely, Kamron Nguyen, 05/27/2024 12:07:29 PM This report has been signed electronically.
--- NOTE | 2024-05-27 12:21 | PCM.POST.ANE ---
Anesthesia: Postop Eval I Current Vital Signs Temperature: 97.5 F Pulse Rate: 88 Blood Pressure: 134/51 Respiratory Rate: 18 Pulse Ox: 99 Oxygen Delivery Method: Nasal Cannula Oxygen Flow Rate (L/min): 3 Assessment Airway patent: Yes Spontaneous unlabored respirations: Yes Mental status: Awake and Calm nausea: No Vomiting: No Anesthesia Complication: No Fluid Hydration Crystalloid volume administer (ml): 900 Total IV fluid infused: 900 Progress Note Anesthesia document: Postop Eval 1 completed: Yes
--- NOTE | 2024-05-27 14:37 | PCM.POSTANE2 ---
Anesthesia Postop Eval I Sum Postop Eval Completion status Anesthesia document: Postop Eval 1 completed: Yes Anesthesia Postop Eval I Summary Anesthesia Postop Eval I Summary: Anesthesia Postop Eval I: Assessment Summary Airway patent Yes 05/27/24 12:21 [email or web address] Spontaneous unlabored Yes 05/27/24 12:21 [email or web address] respirations Mental status Awake,Calm 05/27/24 12:21 [email or web address] nausea No 05/27/24 12:21 [email or web address] Vomiting No 05/27/24 12:21 [email or web address] Anesthesia Postop Eval I: Fluid Summary Crystalloid volume administer 900 05/27/24 12:21 [email or web address] (ml) Colloids volume administered ( ml) Blood Product volume administered (ml) Total IV fluid infused 900 05/27/24 12:21 [email or web address] Anesthesia Postop Eval I: Summary Notes Anesthesia Complication No 05/27/24 12:21 [email or web address] Anesthesia Complication Comment: Post-operative progress note Anesthesia: Postop Eval II Evaluation Mental status: Awake and Calm Pain Level: 0 nausea: No Vomiting: No Complications Anesthesia Complication: No
== END 2024-05-27 12:58 | disposition home or self-care (01) ==
LOC: EN 09:37 → AC 09:40
PROVIDERS: PCP Preventive Medicine Occupational Medicine; Referring Provider Preventive Medicine Occupational Medicine; Visit Provider Internal Medicine Gastroenterology
PROC: (CPT 43260; principal; 2024-05-27 10:40)
DX: K80.51 Calculus of bile duct without cholangitis or cholecystitis with obstruction (principal); J96.11 Chronic respiratory failure with hypoxia; J44.9 Chronic obstructive pulmonary disease, unspecified; E10.22 Type 1 diabetes mellitus with diabetic chronic kidney disease; N18.32 Chronic kidney disease, stage 3b; I12.9 Hypertensive chronic kidney disease with stage 1 through stage 4 chronic kidney disease, or unspecified chronic kidney disease; E78.00 Pure hypercholesterolemia, unspecified; K21.9 Gastro-esophageal reflux disease without esophagitis; F32.A Depression, unspecified; F41.9 Anxiety disorder, unspecified; Z90.49 Acquired absence of other specified parts of digestive tract; Z99.81 Dependence on supplemental oxygen; Z79.82 Long term (current) use of aspirin; Z79.84 Long term (current) use of oral hypoglycemic drugs; Z79.899 Other long term (current) drug therapy; Z86.73 Personal history of transient ischemic attack (TIA), and cerebral infarction without residual deficits; Z87.891 Personal history of nicotine dependence
CPT/HCPCS: 43275; 43264; 74330; 76000; 82962; 88108; 88305; 88313; 93005; J7120; J2405

== ENCOUNTER → 2024-08-16 | Outpatient (CLI) | payer MEDICARE, SELFPAY ==
[2024-08-16 10:51] LABS: Hematocrit 33.2 % (37-47); Hemoglobin 10.1 g/dL (12.0-15.0); Mean Corp Hgb Conc 30.4 g/dL (32-36); Mean Corpuscular Hgb 31.2 pg (27.0-32.0); Mean Corpuscular Volume 102.5 fL (81-99); Mean Platelet Vol. 9.8 fl (6.2-12.0); Platelet Count 195 K/mm3 (150-450); RBC Distribution Width CV 13.6 % (11.6-14.6); RBC Distribution Width SD 51.8 fl (35.1-43.9); Red Blood Count 3.24 M/mm3 (4.2-5.4)
[2024-08-16 10:57] LABS: Protein, Urine (Random) 24.9 mg/dL (<11.9); Protein:Creat Ratio 750 mg/g CRE (0-200)
[2024-08-16 11:06] LABS: PTHIN 115.2 pg/mL (18.4-80.1)
[2024-08-16 11:09] LABS: Albumin, Serum 3.2 g/dL (3.2-5.0); BUN 29 mg/dL (7-18); BUN/Creat Ratio 16.9 RATIO (10-20); Chloride 108 mmol/L (98-107); Creatinine, Serum 1.72 mg/dL (0.55-1.02); EST Glomerular Filtration Rate 31 mL/min (>60); Est Glom Filt Rate - Afr Amer 37 mL/min (>60); Glucose 116 mg/dL (74-106); Phosphorus 3.7 mg/dL (2.5-4.9); Potassium 5.6 mmol/L (3.5-5.1); Sodium Level 139 mmol/L (136-145)
== END | disposition home or self-care (01) ==
LOC: LAB 09:01
PROVIDERS: PCP Preventive Medicine Occupational Medicine; Referring Provider Internal Medicine Nephrology; Visit Provider Internal Medicine Nephrology
DX: E11.22 Type 2 diabetes mellitus with diabetic chronic kidney disease (principal); N18.32 Chronic kidney disease, stage 3b; D50.9 Iron deficiency anemia, unspecified; E21.1 Secondary hyperparathyroidism, not elsewhere classified
CPT/HCPCS: 36415; 80069; 82570; 83970; 84156; 85027

== ENCOUNTER → 2024-08-23 | Outpatient (CLI) | payer MEDICARE, SELFPAY ==
[2024-08-23 11:23] LABS: Anion Gap 6 (5-15); BUN 37 mg/dL (7-18); BUN/Creat Ratio 19.4 RATIO (10-20); Calcium,Total 9.1 mg/dL (8.5-10.1); Chloride 109 mmol/L (98-107); Creatinine, Serum 1.91 mg/dL (0.55-1.02); EST Glomerular Filtration Rate 27 mL/min (>60); Est Glom Filt Rate - Afr Amer 33 mL/min (>60); Glucose 139 mg/dL (74-106); Potassium 4.5 mmol/L (3.5-5.1); Sodium Level 140 mmol/L (136-145)
== END | disposition home or self-care (01) ==
PROVIDERS: PCP Preventive Medicine Occupational Medicine; Referring Provider Internal Medicine Nephrology; Visit Provider Internal Medicine Nephrology
DX: E87.5 Hyperkalemia (principal)
CPT/HCPCS: 36415; 80048

== ENCOUNTER → 2024-12-17 | Outpatient (CLI) | payer MEDICARE, SELFPAY ==
[2024-12-17 10:23] LABS: Hematocrit 29.7 % (37-47); Hemoglobin 9.3 g/dL (12.0-15.0); Mean Corp Hgb Conc 31.3 g/dL (32-36); Mean Corpuscular Hgb 31.6 pg (27.0-32.0); Mean Platelet Vol. 9.4 fl (6.2-12.0); Platelet Count 215 K/mm3 (150-450); RBC Distribution Width CV 13.8 % (11.6-14.6); RBC Distribution Width SD 50.9 fl (35.1-43.9); Red Blood Count 2.94 M/mm3 (4.2-5.4); White Blood Count 7.1 K/mm3 (4.4-11.0)
[2024-12-17 11:09] LABS: Albumin, Serum 3.8 g/dL (3.4-4.8); Anion Gap 13 (5-15); BUN 34 mg/dL (4-19); BUN/Creat Ratio 17.9 RATIO (10-20); Calcium,Total 9.2 mg/dL (7.6-11.0); Chloride 106 mmol/L (98-108); Creatinine, Serum 1.88 mg/dL (0.70-1.20); EST Glomerular Filtration Rate 27 (>60); Glucose 112 mg/dL (70-99); Phosphorus 3.8 mg/dL (2.7-4.5); Potassium 5.6 mmol/L (3.3-5.1); Sodium Level 141 mmol/L (133-145)
[2024-12-17 23:16] LABS: Microalbumin:Creatinine Ratio 3202.6 mg/g CRE
== END | disposition home or self-care (01) ==
PROVIDERS: PCP Preventive Medicine Occupational Medicine; Referring Provider Internal Medicine Nephrology; Visit Provider Internal Medicine Nephrology
DX: E11.22 Type 2 diabetes mellitus with diabetic chronic kidney disease (principal); N18.32 Chronic kidney disease, stage 3b; E87.5 Hyperkalemia
CPT/HCPCS: 36415; 80069; 82043; 82570; 85027

== ENCOUNTER → 2024-12-24 | Outpatient (CLI) | payer MEDICARE, SELFPAY ==
[2024-12-24 11:57] LABS: PTHIN 172 pg/mL (11-61)
[2024-12-24 12:00] LABS: Anion Gap 13 (5-15); BUN 30 mg/dL (4-19); BUN/Creat Ratio 16.1 RATIO (10-20); Calcium,Total 8.9 mg/dL (7.6-11.0); Carbon Dioxide 21.7 mmol/L (21.0-32.0); Chloride 105 mmol/L (98-108); Creatinine, Serum 1.88 mg/dL (0.70-1.20); EST Glomerular Filtration Rate 27 (>60); Glucose 131 mg/dL (70-99); Potassium 4.8 mmol/L (3.3-5.1); Sodium Level 140 mmol/L (133-145)
== END | disposition home or self-care (01) ==
LOC: LAB 11:03
PROVIDERS: PCP Preventive Medicine Occupational Medicine; Referring Provider Internal Medicine Nephrology; Visit Provider Internal Medicine Nephrology
DX: E87.5 Hyperkalemia (principal); N25.81 Secondary hyperparathyroidism of renal origin
CPT/HCPCS: 36415; 80048; 83970

== ENCOUNTER 2025-07-22 12:11 | Inpatient (IN) | payer MEDICARE, SELFPAY ==
[2025-07-22] VITALS (34 sets, daily range): BP systolic 68–179; BP diastolic 56–114; PULSE 98–121; RESP 12–29; TEMP 36.3–37.7; O2SAT 94–100; BMI 27.3; BMI 28.5
--- NOTE | 2025-07-22 12:17 | RAD_ITS ---
PROCEDURE: CHEST 1 VIEW (PORTABLE) 07/22/2025 REASON FOR EXAM: SOB TECHNIQUE: Frontal view of the chest. FINDINGS: Normal-sized cardiac silhouette. Normal-appearing pulmonary vasculature. Blunting of the left lateral costophrenic angle could be due to scarring or small effusion. No definite right pleural effusion, however opacifications are identified in the right mid and lower lung [place] including along the right heart border causing partial obscuration. Left lung is grossly clear. Calcific aortic atherosclerosis. Tortuous aorta. No definite hilar or mediastinal abnormality. RAD/Chest 1 View (Portable) IMPRESSION: Findings in the mid and lower right lung suggesting possible pneumonia, with po ssible underlying fibrosis/scarring. Follow-up PA and lateral chest exam is recommended. Scarring versus small effusion the in the lateral left lung base. Tortuous calcific aortic atherosclerosis. Reading Location: [facility]
--- NOTE | 2025-07-22 12:21 | ED.VIS.DYS ---
HPI History of Present Illness Chief Complaint: Shortness of Breath Narrative Narrative: Patient is a 80-year-old female presenting to the emergency department in respiratory distress. Patient states that she has been sick for the past few days. Reports URI symptoms including cough, fatigue and sore throat. Patient states that she started to feel short of breath at this time as well. She does have a past medical history of COPD on baseline 4 L nasal cannula, CHF, CKD, hyponatremia. She states that she has been trying to use her inhalers at home with no relief. EMS reports when they got there they placed her on a nonrebreather initially with no significant improvement and then placed her on CPAP. [facility] Medical History Wears glasses Wears dentures Diabetes Walker as ambulation aid Arthritis Hepatitis High cholesterol Easy bruising Back pain Syncope Dietary restriction History of hiatal hernia Gastric reflux On home oxygen therapy Shortness of breath on exertion Leg cramps History of pain when walking History of edema History of irregular heartbeat CKD (chronic kidney disease), stage IV Chronic hypoxic respiratory failure, on home oxygen therapy Anxiety and depression Chronic obstructive pulmonary disease Iron deficiency anemia Hyperlipidemia Diabetes mellitus Former smoker Stroke/cerebrovascular accident Hypertension Emphysema of lung CKD stage 4 due to type 1 diabetes mellitus Home Medications ?Medication ?Instructions ?Recorded ?Last Taken ?Type aspirin 81 mg chewable tablet 81 mg PO DAILY@0800 Heart health 12/27/16 07/28/23 History bupropion HCl 150 mg tablet,12 hr 150 mg PO BID mental health 12/27/16 07/28/23 History sustained-release cyanocobalamin (vitamin B-12) 1,000 mg PO DAILY supplement 12/27/16 07/28/23 History 1,000 mcg tablet (Vitamin B-12) lovastatin 40 mg tablet 40 mg PO QHS cholesterol 12/27/16 07/27/23 History montelukast 10 mg tablet 10 mg PO DAILY allergies 12/27/16 07/28/23 History trazodone 150 mg tablet 150 mg PO QHS insomnia 12/27/16 07/27/23 History venlafaxine 150 mg 150 mg PO DAILY depression 12/27/16 07/28/23 History capsule,extended release 24 hr albuterol sulfate 90 mcg/actuation 1 - 2 puff inhalation Q4H PRN PRN 12/30/16 01/19/20 Rx aerosol inhaler (Ventolin HFA) Sob &/Or Wheezing ##1 bisoprolol fumarate 5 mg tablet 5 mg PO DINNER blood pressure 04/19/21 07/27/23 History pioglitazone 30 mg tablet 30 mg PO DAILY@0800 diabetes 01/26/22 07/28/23 History oxycodone-acetaminophen 5 mg-325 1 tab PO Q12H PRN back pain 07/28/23 07/28/23 History mg tablet aripiprazole 10 mg tablet 10 mg PO DAILY 02/29/24 Unknown History esomeprazole magnesium 40 mg 40 mg PO DAILY 02/29/24 Unknown History capsule,delayed release losartan 50 mg tablet 50 mg PO DAILY #30 tabs 03/03/24 Unknown Rx glimepiride 2 mg tablet 2 mg PO BID 05/11/24 Unknown History Allergy/AdvReac Type Severity Reaction Status Date / Time No Known Allergies Allergy Verified 07/22/25 13:19 Family History Mother Diabetes Heart disease Hypertension Father Diabetes Heart disease Hypertension Surgical History History of ERCP Hx laparoscopic cholecystectomy Status post open reduction with internal fixation (ORIF) of fracture of ankle Social History household members: spouse Smoking Status: Former smoker how long ago did patient quit smoking: Smoked 2 ppd until ~ 10 years ago since teen until quit. alcohol intake: never substance use type: does not use ROS ROS ED ROS Narrative see HPI EXAM Physical Exam Narrative Exam Narrative: Vital signs: Reviewed General: Alert and oriented x 3. Acute respiratory distress HEENT: Head is normocephalic and atraumatic, sinuses nontender, pupils equal round and reactive. Nares are patent. Oropharynx and throat exams normal. No oropharyngeal trauma. Neck: Supple without lymphadenopathy nontender. There is a large healing bruise to the right anterior neck. There is no tenderness to palpation of this area. There is no expanding hematoma. There is no pulsatile mass. Trachea is midline. Phonation is normal. No midline cervical spinal tenderness to palpation. No step-offs or deformities. Cardiovascular: Tachycardic rate and regular rhythm, no murmurs. No rubs or gallops. Normal S1 and S2 Respiratory: Clear to auscultation bilaterally. No wheezes, rales, rhonchi Chest: Chest wall is atraumatic and nontender to palpation. No crepitus, ecchymosis or erythema. Abdominal: Soft and nontender. Normal bowel sounds. No guarding or rebound. Nonsurgical abdomen Extremities: Bilateral 2+ pitting edema in the lower extremities. No erythema or warmth. No tenderness to palpation of the calves. No tenderness. No bruising. Normal range of motion. Normal sensation. Neurological: Cranial nerves II through XII are grossly intact. Normal strength and sensation. Normal cerebellar function The rest of the physical exam is unremarkable Const Vital Signs: 07/22/25 12:11 07/22/25 12:11 07/22/25 12:15 Temperature 99.8 F H Temperature Source Axillary Pulse Rate 121 H 110 H Respiratory Rate 21 H 29 H Respiratory Effort Short of Breath Labored Accessory Muscle Use Respiratory Depth Normal Respiratory Pattern Normal Stridor Blood Pressure 134/75 H Blood Pressure Mean 94 Pulse Ox 98 97 Oxygen Delivery Method Bi-pap Bi-pap Oxygen Flow Rate (L/min) Fraction of Inspired Oxygen (FIO2) 45 07/22/25 12:17 07/22/25 12:30 07/22/25 12:36 Temperature 99.8 F H Temperature Source Axillary Pulse Rate 115 H 109 H 110 H Respiratory Rate 23 H 25 H 25 H Respiratory Effort Respiratory Depth Respiratory Pattern Stridor Blood Pressure 134/75 H Blood Pressure Mean 94 Pulse Ox 97 94 Oxygen Delivery Method Bi-pap Oxygen Flow Rate (L/min) Fraction of Inspired Oxygen (FIO2) 45 07/22/25 12:41 07/22/25 13:00 07/22/25 13:11 Temperature Temperature Source Pulse Rate 119 H 113 H Respiratory Rate 24 H 18 Respiratory Effort Respiratory Depth Respiratory Pattern Blood Pressure 145/75 H 125/64 H Blood Pressure Mean 98 84 Pulse Ox 95 96 Oxygen Delivery Method Bi-pap Bi-pap Oxygen Flow Rate (L/min) Fraction of Inspired Oxygen (FIO2) 40 07/22/25 13:30 07/22/25 14:00 07/22/25 14:30 Temperature 98.9 F 98.7 F Temperature Source Core Core Pulse Rate 110 H 117 H 112 H Respiratory Rate 23 H 20 H 20 H Respiratory Effort Respiratory Depth Respiratory Pattern Blood Pressure 124/67 H 130/58 H 126/70 H Blood Pressure Mean 82 80 88 Pulse Ox 97 98 100 Oxygen Delivery Method Bi-pap Oxygen Flow Rate (L/min) Fraction of Inspired Oxygen (FIO2) 07/22/25 14:30 07/22/25 15:00 07/22/25 15:00 Temperature 98.5 F Temperature Source Core Pulse Rate 111 H 110 H 110 H Respiratory Rate 16 20 H 21 H Respiratory Effort Respiratory Depth Respiratory Pattern Blood Pressure 126/70 H 68/56 L Blood Pressure Mean 86 60 Pulse Ox 100 100 99 Oxygen Delivery Method Bi-pap Oxygen Flow Rate (L/min) Fraction of Inspired Oxygen (FIO2) 35 07/22/25 15:00 07/22/25 15:17 07/22/25 15:38 Temperature 98.4 F 98.4 F Temperature Source Core Core Pulse Rate 103 H 102 H Respiratory Rate 19 H 20 H Respiratory Effort Respiratory Depth Respiratory Pattern Blood Pressure 68/56 L 139/114 H Blood Pressure Mean 61 124 Pulse Ox 99 98 Oxygen Delivery Method Nasal Cannula Oxygen Flow Rate (L/min) 4 Fraction of Inspired Oxygen (FIO2) 07/22/25 15:45 07/22/25 15:45 07/22/25 16:00 Temperature 98.4 F 98.4 F Temperature Source Core Core Pulse Rate 109 H 100 Respiratory Rate 20 H 19 H Respiratory Effort Respiratory Depth Respiratory Pattern Blood Pressure 130/70 H 130/70 H 142/76 H Blood Pressure Mean 86 86 94 Pulse Ox 97 98 Oxygen Delivery Method Oxygen Flow Rate (L/min) Fraction of Inspired Oxygen (FIO2) 07/22/25 16:16 07/22/25 16:30 07/22/25 17:00 Temperature 98.4 F 98.3 F Temperature Source Core Core Pulse Rate 107 H 111 H 117 H Respiratory Rate 25 H 19 H 15 Respiratory Effort Respiratory Depth Respiratory Pattern Stridor Blood Pressure 149/78 H 156/77 H Blood Pressure Mean 97 100 Pulse Ox 97 100 99 Oxygen Delivery Method Oxygen Flow Rate (L/min) Fraction of Inspired Oxygen (FIO2) 35 MDM MDM MDM Narrative Medical decision making narrative: Patient is a 80-year-old female presenting to the emergency department for respiratory distress. Patient was seen and examined. She arrives on CPAP which was switched to BiPAP once here. She is tachypneic, tachycardic and speaking in short sentences. Diffuse wheezing heard on physical exam. 3 DuoNebs and Solu-Medrol given for possible COPD exacerbation. Differential includes but is not limited to: COPD exacerbation, CHF, pneumonia, less likely PE, pneumothorax, ACS. flash pulmonary edema given normal blood pressure EKG with poor baseline however appears to be sinus tachycardia with no ischemic changes. No dysrhythmia. ABG was initially ordered which shows respiratory acidosis, pCO2 of 58 with a pH is 7.17. This was obtained when patient was first placed on BiPAP. Reviewing I think this was likely obtained venously. Will repeat 1 in 30 minutes from the initial. Given patient's initial vitals and her feeling unwell the past few days, concern for possible sepsis. Blood cultures x 2 obtained. Rocephin and azithromycin given for probable respiratory source of infection. I will hold off on fluids at this time given the patient has bilateral lower extremity edema and I have concern for possible CHF as well causing her respiratory distress. CBC with a leukocytosis of 17 and chronic anemia of 9.1. CMP with worsening kidney function from baseline with BUN of 50 and creatinine of 2.04. Mild hyperkalemia of 5.4. EKG with no findings of hyperkalemia. Lactic within normal limits. Urinalysis with no evidence of urinary tract infection. Initial troponin of 40 which I would expect with her kidney disease. BNP elevated at 5405. Repeat blood gas with much improvement, normal pCO2 and pO2 with a pH of 7.3. SO2 of 95% portable chest x-ray was reviewed by myself. There is left-sided blunting of the costophrenic angle and cephalization noted. Radiology read with findings in the mid and lower right lung suggesting possible pneumonia with possible underlying fibrosis or scarring. Scarring versus small effusion in the left lateral lung base. Initially I did order CT imaging of the patient's chest to rule out pulmonary embolism however lower on my differential. Once reviewing the patient's labs this was canceled given her GFR. I do think the patient's clinical presentation is consistent with pneumonia and a COPD exacerbation. If the patient has further decline would consider imaging at that time. Patient and daughter at bedside were updated on the lab and imaging findings and the need for admission. All questions were answered. I did discuss patient's CODE STATUS with her given she is on BiPAP. She is alert and oriented x 3 and has capacity to make her own medical decisions at this time. She is full code. Patient evaluated by hospitalist, Dr. Argueta, he asked that the patient have a CTA chest done to evaluate for PE. This was ordered. In addition, CT soft tissue was added on to evaluate her neck given the large bruise on her right sided anterior neck and already obtaining imaging with contrast. CTA chest shows cardiomegaly and bilateral pleural effusions. Airspace opacities in the lower lungs that may represent atelectasis or pneumonia. Dilated esophagus with ingested material consistent with GERD. No evidence of pulmonary embolism. CT neck shows no acute or active inflammatory process identified in the neck. No neck mass or cervical lymphadenopathy. Fluid and air-filled dilatation of the visualized esophagus, may reflect achalasia. Mild-moderate biapical pulmonary emphysema. 8 mm nodule in the left upper lobe. Multiple nonspecific enlarged upper mediastinal lymph nodes; see separate CT thorax report. Multiple small subcentimeter thyroid nodules/cysts. Patient admitted for further management of her pneumonia and COPD exacerbation. Clinical impression: Acute hypoxic respiratory failure Pneumonia BENITO History & Record Review Discussion w/independent historian: Patient and Family Lab Data Attestation: I reviewed the patient's lab results. Labs: Laboratory Results - last 24 hr 07/22/25 07/22/25 07/22/25 12:32 13:09 15:23 WBC 17.0 H RBC 2.90 L Hgb 9.1 L Hct 28.8 L MCV 99.3 H MCH 31.4 MCHC 31.6 L RDW Std Deviation 49.3 H RDW Coeff of Tessa 13.5 Plt Count 230 MPV 9.4 Immature Gran % (Auto) 1.000 H Neut % (Auto) 87.3 H Lymph % (Auto) 4.4 L Starke % (Auto) 6.7 Eos % (Auto) 0.4 Baso % (Auto) 0.2 Absolute Neuts (auto) 14.8 H Absolute Lymphs (auto) 0.75 L Nucleated RBC % 0 Sodium 133 Potassium 5.4 H Chloride 102 Carbon Dioxide 19.0 L Anion Gap 12 BUN 50 H Creatinine 2.04 H Estim Creat Clear Calc 24.23 L Est GFR (MDRD) Non-Af 24 L BUN/Creatinine Ratio 24.5 H Glucose 232 H Hemoglobin A1c 6.4 H Lactic Acid < 1.0 Calcium 8.6 Total Bilirubin 0.40 AST 55 H ALT 30 Alkaline Phosphatase 132 H Troponin T High Sens 40 H Troponin T Hi Sens 2 Hr 39 H Troponin T Hi Sens 4Hr NT pro BNP II 5405 H Total Protein 7.1 Albumin 3.3 L Globulin 3.9 Albumin/Globulin Ratio 0.8 L Procalcitonin Urine Color Yellow Urine Clarity Clear Urine pH 6.0 Ur Specific [place] 1.015 Urine Protein 100 H Urine Glucose (UA) Normal Urine Ketones Negative Urine Occult Blood 10 H Urine Nitrite Negative Urine Bilirubin Negative Urine Urobilinogen 1 H Ur Leukocyte Esterase 25 H Urine RBC 0 SEEN Urine WBC 0 SEEN Ur Squamous Epith Cells 0 SEEN Urine Bacteria 0 SEEN Urine Mucus 0 SEEN 07/22/25 16:33 WBC RBC Hgb Hct MCV MCH MCHC RDW Std Deviation RDW Coeff of Tessa Plt Count MPV Immature Gran % (Auto) Neut % (Auto) Lymph % (Auto) [place] % (Auto) Eos % (Auto) Baso % (Auto) Absolute Neuts (auto) Absolute Lymphs (auto) Nucleated RBC % Sodium Potassium Chloride Carbon Dioxide Anion Gap BUN Creatinine Estim Creat Clear Calc Est GFR (MDRD) Non-Af BUN/Creatinine Ratio Glucose Hemoglobin A1c Lactic Acid Calcium Total Bilirubin AST ALT Alkaline Phosphatase Troponin T High Sens Troponin T Hi Sens 2 Hr Troponin T Hi Sens 4Hr 38 H NT pro BNP II Total Protein Albumin Globulin Albumin/Globulin Ratio Procalcitonin 0.68 H Urine Color Urine Clarity Urine pH Ur Specific [place] Urine Protein Urine Glucose (UA) Urine Ketones Urine Occult Blood Urine Nitrite Urine Bilirubin Urine Urobilinogen Ur Leukocyte Esterase Urine RBC Urine WBC Ur Squamous Epith Cells Urine Bacteria Urine Mucus ABG Data ABG results: ABG 07/22/25 07/22/25 12:43 13:27 Specimen Type SARAH ART Sample Site L Radial R Brach pH 7.18 L* 7.31 L Bicarbonate Actual 21.7 L 20.0 L Total CO2 24 21 Base Excess -7 L -6 L O2 Saturation 83 L 95 O2 % 45.0 40.0 ABG pCO2 58.7 H 39.6 ABG pO2 60 L 82 Ed Test Positive O2 Delivery Device BiPAP BiPAP Vent Mode Not entered Not entered Crit Call To/Read Back Yes Blood Gas Notified Whom DR. RAYMOND Clinical Comments 15 6 15 6 Radiography Chest X-Ray - ED: 2 View, Read by ED Physician and Left Effusion Diagnostic Testing: Clinical Impression(s) from Imaging Studies Chest X-Ray 07/22/25 12:17 IMPRESSION: Findings in the mid and lower right lung suggesting possible pneumonia, with possible underlying fibrosis/scarring. Follow-up PA and lateral chest exam is recommended. Scarring versus small effusion the in the lateral left lung base. Tortuous calcific aortic atherosclerosis. [facility] 07/22/25 14:28 IMPRESSION: Cardiomegaly and bilateral pleural effusions may be suggestive of CHF. Airspace opacities in the lower lungs may represent atelectasis or pneumonia. Dilated esophagus with ingested material consistent with gastroesophageal reflux. Follow-up with outpatient barium swallow can be helpful for further evaluation. No evidence of pulmonary embolism. Reading Location: [facility] Soft Tissue Neck CT 07/22/25 14:28 IMPRESSION: 1. No acute or active inflammatory process identified in the neck. 2. No neck mass or cervical lymphadenopathy. 3. Fluid and air-filled dilatation of the visualized esophagus, may reflect achalasia. 4. Mild-moderate biapical pulmonary emphysema. 8 mm nodule in the left upper lobe. Multiple nonspecific enlarged upper mediastinal lymph nodes; see separate CT thorax report. 5. Multiple small subcentimeter thyroid nodules/cysts. Reading Location: [id number] Discharge Plan Disposition Disposition: Acute Care Hospital [facility] Discharge Date/Time: 07/22/25 18:31
[2025-07-22 12:43] LABS: Hematocrit 28.8 % (37-47); Hemoglobin 9.1 g/dL (12.0-15.0); Immature Granulocytes Count 0.170 X10^3/uL (0.0-0.0); Mean Corp Hgb Conc 31.6 g/dL (32-36); Mean Corpuscular Volume 99.3 fL (81-99); Mean Platelet Vol. 9.4 fl (6.2-12.0); NRBC Flagged by Analyzer 0 % (0-5); Platelet Count 230 K/mm3 (150-450); RBC Distribution Width CV 13.5 % (11.6-14.6); RBC Distribution Width SD 49.3 fl (35.1-43.9); Red Blood Count 2.90 M/mm3 (4.2-5.4); White Blood Count 17.0 K/mm3 (4.4-11.0)
[2025-07-22 12:48] LABS: Allen Test Positive; Base Excess -7 mmol/L (-2 to +2); Comment 15 6; FI02 45.0; PO2 60 mmHG (75-100); SITE L Radial; SO2 83 % (95-99)
[2025-07-22] MEDS: Ceftriaxone 2 GM in 0.9% Normal Saline (50mL MB+) 50 ML IV (13:10)
[2025-07-22 13:13] LABS: Mucous, Urine 0 SEEN /hpf (<or=2+); Red Blood Cells-Urine 0 SEEN /hpf (0-5); Squamous Epithelial Cells - UA 0 SEEN /hpf (5-10)
[2025-07-22 13:16] LABS: Color, Urine Yellow (Yellow); Glucose, Dipstick Normal (Normal); Ketone-Dipstick Negative (Negative); Leukocyte Esterase-Dipstick 25 /ul (Negative); Nitrite-Dipstick Negative (Negative); Occult Blood-Urine 10 /ul (Negative); Protein-Dipstick 100 mg/dl (Negative); Specific Gravity, Urine 1.015 (1.002-1.030); Urine Bilirubin Dipstick Negative (Negative)
[2025-07-22 13:17] LABS: Pro- Brain NATRIURETIC PEPTIDE 5405 pg/mL (<=1800); Troponin T High Sensitivity 40 ng/L (<=14)
[2025-07-22 13:20] LABS: AST(SGOT) 55 U/L (<=31); Alanine Aminotransfer ALT/SGPT 30 U/L (<=34); Albumin, Serum 3.3 g/dL (3.4-4.8); Alkaline Phosphatase 132 U/L (35-104); Anion Gap 12 (5-15); BUN 50 mg/dL (4-19); BUN/Creat Ratio 24.5 RATIO (10-20); Calcium,Total 8.6 mg/dL (7.6-11.0); Carbon Dioxide 19.0 mmol/L (21.0-32.0); Chloride 102 mmol/L (98-108); Estimated Creatinine Clearance 24.23 ml/min (50-250); Globulin 3.9 g/dL (2.2-4.2); Glucose 232 mg/dL (70-99); Potassium 5.4 mmol/L (3.3-5.1)
[2025-07-22 13:31] LABS: Base Excess -6 mmol/L (-2 to +2); Comment 15 6; FI02 40.0; PO2 82 mmHG (75-100); SITE R Brach; SO2 95 % (95-99)
[2025-07-22] MEDS: Azithromycin 500 MG in 0.9% Normal Saline (250mL Bag) 250 ML 250 MG IV (14:09)
--- NOTE | 2025-07-22 14:11 | PCM.HP.STD ---
HPI - General General Date of Admission: 07/22/25 Date of Service: 07/22/25 Chief Complaint: Worsening shortness of breath HPI Narrative WING LIN, is a 80 F who presented to [facility] ED on 07/22/2025 with worsening shortness of breath. Medical history significant for COPD with chronic respiratory failure on home 4 L nasal cannula, CKD stage IIIb, history of CVA, chronic debility, anxiety/depression, type 2 diabetes mellitus, hypertension and hyperlipidemia. Patient lives at home alone, daughter lives nearby. Patient arrived to the ED today in respiratory distress. ABG showed pH 7.18, pCO2 58, pO2 60 on nasal cannula. She was placed on BiPAP shortly after this. She was noted to have wheezing on exam so she was given multiple rounds of DuoNebs and a dose of IV Solu-Medrol and a dose of IV Lasix. CTA chest showed no PE, did show cardiomegaly with bilateral pleural effusions CHF as well as airspace opacities in the lower lungs concerning for atelectasis versus pneumonia; also showed a dilated esophagus with ingested material consistent with GERD. Patient had bruising noted on her neck so CT soft tissue neck was also done and showed no concerns the neck but did show fluid and air-filled dilatation of the visualized esophagus concerning for achalasia. Repeat ABG after 1 hour on BiPAP at low O2 settings showed pH 7.31, pCO2 39, pO2 82. She was able to be taken off BiPAP and put back on 4 L nasal cannula and was satting in the mid 90s. Given concern for COPD and CHF exacerbations as well as possible dysphagia with concern for aspiration ammonia, hospitalist was contacted for admission. I saw the patient at bedside in the ED, daughter was present. Patient was still on BiPAP when I saw her. She was breathing comfortably and maintaining appropriate oxygen saturations. Patient was alert and making appropriate eye contact and answering some questions appropriately but was not able to expound upon her answers much. Daughter helped with the history. Daughter notes that patient had a fall at home about 2 weeks ago and has had generalized weakness since then. Daughter has been living at the patient's house for the past 2 weeks. She notes that the patient has been getting up with assistance to go to the bathroom and then going back to either her chair or bed without doing much else. No recent infectious contacts that they are aware of. Daughter does note the patient has had swallowing issues for some time now. She has had difficulty getting food and drink to go down into her stomach and often has regurgitation episodes. No emeka aspiration events that daughter is aware of. Has been taking home medications as prescribed. No other acute concerns currently. Will be admitted for further management. [facility] Medical History (Updated 07/22/25 @ 21:[address] Antoni Argueta, DO) Wears glasses Wears dentures Diabetes Walker as ambulation aid Arthritis Hepatitis High cholesterol Easy bruising Back pain Syncope Dietary restriction History of hiatal hernia Gastric reflux On home oxygen therapy Shortness of breath on exertion Leg cramps History of pain when walking History of edema History of irregular heartbeat CKD (chronic kidney disease), stage IV Chronic hypoxic respiratory failure, on home oxygen therapy Anxiety and depression Chronic obstructive pulmonary disease Iron deficiency anemia Hyperlipidemia Diabetes mellitus Former smoker Stroke/cerebrovascular accident Hypertension Emphysema of lung CKD stage 4 due to type 1 diabetes mellitus Home Medications ?Medication ?Instructions ?Recorded ?Last Taken ?Type aspirin 81 mg chewable tablet 81 mg PO DAILY@0800 Heart health 12/27/16 07/28/23 History bupropion HCl 150 mg tablet,12 hr 150 mg PO BID mental health 12/27/16 07/28/23 History sustained-release cyanocobalamin (vitamin B-12) 1,000 mg PO DAILY supplement 12/27/16 07/28/23 History 1,000 mcg tablet (Vitamin B-12) lovastatin 40 mg tablet 40 mg PO QHS cholesterol 12/27/16 07/27/23 History montelukast 10 mg tablet 10 mg PO DAILY allergies 12/27/16 07/28/23 History trazodone 150 mg tablet 150 mg PO QHS insomnia 12/27/16 07/27/23 History venlafaxine 150 mg 150 mg PO DAILY depression 12/27/16 07/28/23 History capsule,extended release 24 hr albuterol sulfate 90 mcg/actuation 1 - 2 puff inhalation Q4H PRN PRN 12/30/16 01/19/20 Rx aerosol inhaler (Ventolin HFA) Sob &/Or Wheezing ##1 bisoprolol fumarate 5 mg tablet 5 mg PO DINNER blood pressure 04/19/21 07/27/23 History pioglitazone 30 mg tablet 30 mg PO DAILY@0800 diabetes 01/26/22 07/28/23 History oxycodone-acetaminophen 5 mg-325 1 tab PO Q12H PRN back pain 07/28/23 07/28/23 History mg tablet aripiprazole 10 mg tablet 10 mg PO DAILY 02/29/24 Unknown History esomeprazole magnesium 40 mg 40 mg PO DAILY 02/29/24 Unknown History capsule,delayed release losartan 50 mg tablet 50 mg PO DAILY #30 tabs 03/03/24 Unknown Rx glimepiride 2 mg tablet 2 mg PO BID 05/11/24 Unknown History Allergy/AdvReac Type Severity Reaction Status Date / Time No Known Allergies Allergy Verified 07/22/25 13:19 Family History Mother Diabetes Heart disease Hypertension Father Diabetes Heart disease Hypertension Surgical History (Updated 05/25/24 @ 10:05 by Destiney Vazquez) History of ERCP Hx laparoscopic cholecystectomy Status post open reduction with internal fixation (ORIF) of fracture of ankle Social History household members: spouse Smoking Status: Former smoker how long ago did patient quit smoking: Smoked 2 ppd until ~ 10 years ago since teen until quit. alcohol intake: never substance use type: does not use ROS Constitutional Constitutional: Reports fatigue and weakness; Denies chills or fever(s) Eyes Eyes: Denies change in vision Cardiovascular Cardiovascular: Denies chest pain Respiratory/Chest Respiratory/Chest: Reports cough, shortness of breath at rest and wheezing; Denies productive cough or shortness of breath with exertion Gastrointestinal Gastrointestinal: Denies abdominal pain, nausea or vomiting Genitourinary Genitourinary: Denies dysuria Musculoskeletal Musculoskeletal: Denies arthralgias or myalgias Neurologic Neurologic: Denies dizziness, focal weakness, headache(s), numbness or tingling Vital Signs Vital Signs Vital Signs: 07/22/25 12:11 07/22/25 12:11 07/22/25 12:15 Temperature 99.8 F H Temperature Source Axillary Pulse Rate 121 H Respiratory Rate 21 H 29 H Respiratory Effort Short of Breath Labored Accessory Muscle Use Respiratory Depth Normal Respiratory Pattern Normal Stridor Blood Pressure 134/75 H Blood Pressure Mean 94 Pulse Ox 98 97 Oxygen Delivery Method Bi-pap Bi-pap Fraction of Inspired Oxygen (FIO2) 45 07/22/25 12:17 07/22/25 12:30 07/22/25 12:41 Temperature 99.8 F H Temperature Source Axillary Pulse Rate 115 H 119 H Respiratory Rate 23 H 25 H 24 H Respiratory Effort Respiratory Depth Respiratory Pattern Stridor Blood Pressure 134/75 H 145/75 H Blood Pressure Mean 94 98 Pulse Ox 97 94 95 Oxygen Delivery Method Bi-pap Bi-pap Fraction of Inspired Oxygen (FIO2) 45 07/22/25 13:11 07/22/25 13:30 07/22/25 14:00 Temperature 98.9 F 98.7 F Temperature Source Core Core Pulse Rate 113 H 110 H 117 H Respiratory Rate 18 23 H 20 H Respiratory Effort Respiratory Depth Respiratory Pattern Blood Pressure 125/64 H 124/67 H 130/58 H Blood Pressure Mean 84 82 80 Pulse Ox 96 97 98 Oxygen Delivery Method Bi-pap Fraction of Inspired Oxygen (FIO2) Weight Weight: 79.2 kg Body Mass Index (BMI) 27.3 Physical Exam Const alert, no apparent distress and average body habitus Constitutional Narrative: Elderly female, breathing comfortably on BiPAP, fatigued and weak appearing, alert and answering some questions with short appropriate responses but with some delayed responses as well, otherwise sitting back in bed and in no acute distress. General Appearance: cooperative and comfortable HEENT normocephalic, head/scalp atraumatic, hearing grossly normal bilaterally, nasal mucous membranes and turbinates normal and moist oral mucous membranes HEENT Narrative: BiPAP in place. Eyes PERRL, EOMs intact bilaterally and conjunctivae normal Neck Neck Narrative: Bruising noted on the right side of the neck presumed from recent fall. Chest inspection of chest normal Resp normal respiratory effort and no use of accessory muscles Resp Narrative: Breathing comfortably on BiPAP. Mild wheezing noted in upper airways bilaterally and crackles noted in low to mid lung zones bilaterally. Cardio no murmurs and peripheral pulses 2+ throughout Cardio Narrative: Tachycardic, regular rhythm. GI normal to inspection, nondistended, normoactive bowel sounds, soft to palpation, non-tender and non-distended Back/Spine normal ROM Extremity full ROM Extremity Narrative: +1-2 lower extremity nonpitting edema noted. Skin no rashes or lesions noted Neuro moves all extremities and no focal motor deficits Neuro Narrative: Generalized lower extremity weakness noted. Psych Psych Narrative: Flat affect. Results Lab / Micro Data 07/22/25 12:32 07/22/25 12:32 Labs: Laboratory Results - last 24 hr 07/22/25 12:32: WBC 17.0 H, RBC 2.90 L, Hgb 9.1 L, Hct 28.8 L, MCV 99.3 H, MCH 31.4, MCHC 31.6 L, RDW Std Deviation 49.3 H, RDW Coeff of Tessa 13.5, Plt Count 230, MPV 9.4, Immature Gran % (Auto) 1.000 H, Neut % (Auto) 87.3 H, Lymph % (Auto) 4.4 L, Wright % (Auto) 6.7, Eos % (Auto) 0.4, Baso % (Auto) 0.2, Absolute Neuts (auto) 14.8 H, Absolute Lymphs (auto) 0.75 L, Nucleated RBC % 0, Sodium 133, Potassium 5.4 H, Chloride 102, Carbon Dioxide 19.0 L, Anion Gap 12, BUN 50 H, Creatinine 2.04 H, Estim Creat Clear Calc 24.23 L, Est GFR (MDRD) Non-Af 24 L, BUN/Creatinine Ratio 24.5 H, Glucose 232 H, Lactic Acid < 1.0, Calcium 8.6, Total Bilirubin 0.40, AST 55 H, ALT 30, Alkaline Phosphatase 132 H, Troponin T High Sens 40 H, NT pro BNP II 5405 H, Total Protein 7.1, Albumin 3.3 L, Globulin 3.9, Albumin/Globulin Ratio 0.8 L 07/22/25 13:09: Urine Color Yellow, Urine Clarity Clear, Urine pH 6.0, Ur Specific [place] 1.015, Urine Protein 100 H, Urine Glucose (UA) Normal, Urine Ketones Negative, Urine Occult Blood 10 H, Urine Nitrite Negative, Urine Bilirubin Negative, Urine Urobilinogen 1 H, Ur Leukocyte Esterase 25 H, Urine RBC 0 SEEN, Urine WBC 0 SEEN, Ur Squamous Epith Cells 0 SEEN, Urine Bacteria 0 SEEN, Urine Mucus 0 SEEN Micro: Microbiology 07/22/25 12:30 Mucosa - Nose SARS-CoV-2, Influenza & RSV (PCR) - Final ABG Data ABG results: ABG 07/22/25 07/22/25 12:43 13:27 Specimen Type ART ART Sample Site L Radial R Brach pH 7.18 L* 7.31 L Bicarbonate Actual 21.7 L 20.0 L Total CO2 24 21 Base Excess -7 L -6 L O2 Saturation 83 L 95 O2 % 45.0 40.0 ABG pCO2 58.7 H 39.6 ABG pO2 60 L 82 Ed Test Positive O2 Delivery Device BiPAP BiPAP Vent Mode Not entered Not entered Crit Call To/Read Back Yes Clinical Comments 15 6 15 6 Imaging Radiology Impression Chest X-Ray 07/22/25 12:17 IMPRESSION: Findings in the mid and lower right lung suggesting possible pneumonia, with possible underlying fibrosis/scarring. Follow-up PA and lateral chest exam is recommended. Scarring versus small effusion the in the lateral left lung base. Tortuous calcific aortic atherosclerosis. Reading Location: [facility] Assessment & Plan Assessment/Plan (1) Acute on chronic respiratory failure with hypoxia and hypercapnia: PLAN: Plan Patient is a 80-year-old female who presented to [facility] ED on 07/22/2025 with worsening shortness of breath. 1. Acute on chronic hypoxic and hypercapnic respiratory failure suspected secondary to COPD and CHF exacerbations with concern for aspiration pneumonia ? Admit under inpatient status to PCU. On 4 L nasal cannula at baseline. Was requiring BiPAP on admission for acute respiratory distress. Initial ABG with pH 7.18, pCO2 59, pO2 60 on 6 L nasal cannula; improved to pH 7.31, pCO2 39, pO2 82 on BiPAP with improved work of breathing. Seems multifactorial secondary to COPD exacerbation, new onset heart failure exacerbation with pulmonary edema and possible aspiration pneumonia in setting of dysphagia with possible achalasia as below. CTA chest showed no PE, did show cardiomegaly with bilateral pleural effusions and airspace opacities in the lower lungs concerning for atelectasis versus pneumonia. BNP 5405. COVID/flu/RSV negative. Procalcitonin elevated at 0.68. Will treat with scheduled DuoNebs, IV steroids, IV Zosyn and IV Lasix 40 mg twice daily for now. Echocardiogram ordered. Full respiratory PCR panel and sputum culture ordered. Wean supplemental oxygen as able. 2. Mildly elevated creatinine in setting of CKD stage IIIb, mild hyperkalemia ? Creatinine 2.04 on admit, baseline around 1.7-1.9. Potassium 5.4. No hyperkalemic changes on EKG. Suspect secondary to mild degree of cardiorenal syndrome due to CHF exacerbation as above. Treating with IV Lasix as above, monitor daily BMP and urine output. 3. Dysphagia with concern for achalasia, history of GERD ? Speech therapy and GI consulted. CTA chest showed a dilated esophagus with ingesta material consistent with gastroesophageal reflux, and CT soft tissue neck showed fluid and air-filled dilatation of the visualized esophagus concerning for achalasia. Will keep n.p.o. at this time. Appreciate speech therapy and GI recommendations. Will treat with IV PPI daily while patient remains NPO. 4. Acute on chronic debility with recent mechanical fall ? PT/OT/case management consulted. Patient lives at home alone, daughter lives close by. Daughter noted the patient had a mechanical fall about 2 weeks ago at home. Did not hit her head but does have bruising on her neck noted from this. Patient has been primarily in bed or in a chair and only gets up with assistance to use the restroom since then. Has needed home health care in the past but does not appear she has needed SNF placement. Appreciate therapy recommendations. Chronic medical conditions: ? Type 2 diabetes mellitus: Glucose 232 on admit. Most recent A1c 5.9% in February 2024. Repeat A1c ordered. Will treat with sliding scale insulin every 6 hours for now with patient n.p.o. Hold home pioglitazone and glimepiride. ? Hypertension, hyperlipidemia, history of CVA: Hypertensive to the 150s to 160s systolic on admit. Continue home bisoprolol, losartan, aspirin and statin. ? Anxiety/depression: Stable. Continue home bupropion, aripiprazole and venlafaxine. ? Chronic anemia: Hemoglobin 9.1 on admit, stable at baseline. DVT prophylaxis: Heparin subcu CODE STATUS: Full code, verified Expected disposition: TBD Total clinical time spent by myself addressing the patient's medical issues, reviewing all the data, and collaborating with patient's care team: 84 minutes. Charges/Coding Visit Charges Inpatient E&M: 04390 Init Hosp L3
--- NOTE | 2025-07-22 14:28 | CT_ITS ---
PROCEDURE: CTA CHEST W/WO CONTRAST 07/22/2025 REASON FOR EXAM: RULE OUT PE TECHNIQUE: Procedure Code: [id number] Modality: CT Procedure: CTA CHEST W/WO CONTRAST Multiplanar Sagittal and Coronal images were obtained. CONTRAST: Isovue 370 VOLUME: 90 mL One or more dose reduction techniques were used (e.g., Automated exposure control, adjustment of the mA and/or kV according to patient size, use of iterative reconstruction technique). RADIATION DOSE SUMMARY: CTDlvol: 9.77 mGy DLP: 1003.03 mGycm COMPARISON: None. # of known CTs in the past 12 months: None. # of known Cardiac Nuclear Medicine Studies in the past 12 months: None. FINDINGS: Thoracic Aorta: Atherosclerotic calcifications. No aneurysm. No dissection. Heart: Moderate cardiomegaly. Atherosclerotic calcifications of the coronary arteries. Mediastinum: Dilated esophagus with ingested material. No esophageal wall thickening. Pulmonary Vessels: No evidence of pulmonary embolism. Hardware: Unremarkable. Lymph nodes: No lymphadenopathy. Lungs and Airways: Centrilobular pulmonary emphysema mostly in the upper lobes. Bilateral moderate pleural effusions with airspace opacities may represent CHF or pulmonary edema. Pleura: Bilateral moderate pleural effusions. Upper Abdomen: Disc Bones: No acute bony abnormalities. CT/CTA Chest W/WO Contrast IMPRESSION: Cardiomegaly and bilateral pleural effusions may be suggestive of CHF. Airspac e opacities in the lower lungs may represent atelectasis or pneumonia. Dilated esophagus with ingested material consistent with gastroesophageal reflu x. Follow-up with outpatient barium swallow can be helpful for further evaluation. No evidence of pulmonary embolism. Reading Location: [facility]
--- NOTE | 2025-07-22 14:28 | CT_ITS ---
PROCEDURE: CT SOFT TISSUE NECK WITH CONTRAST 07/22/2025 REASON FOR EXAM: BRUISING TECHNIQUE: Procedure Code: CTNEW Modality: CT Procedure: SOFT TISSUE NECK WITH CONTRAST CONTRAST: Isovue 370 VOLUME: 90 mL One or more dose reduction techniques were used (e.g., Automated exposure control, adjustment of the mA and/or kV according to patient size, use of iterative reconstruction technique). RADIATION DOSE SUMMARY: DLP: 1003.03 mGycm COMPARISON: None available. FINDINGS: Fluid and air-filled dilatation of the visualized upper esophagus, suggestive of achalasia. Mild-moderate centrilobular pulmonary emphysema. 8 mm left upper lobe pulmonary nodule. Multiple enlarged visualized upper mediastinal lymph nodes, nonspecific Heterogeneous thyroid with multiple small subcentimeter hypodense nodules/cysts. Grossly normal symmetric appearance of the major salivary glands. No cervical mass lesion or lymphadenopathy. The airway is patent and midline. Grossly unremarkable orbits. Prior bilateral cataract surgery. Imaged major vascular structures are patent. Partial retropharyngeal course of the bilateral carotid arteries, and mild atherosclerotic plaque at the carotid artery bifurcations without evidence for high-grade stenosis. No aneurysm or dissection is evident. No acute or aggressive osseous abnormality. Edentulous maxilla and mandible. Multilevel degenerative changes of the spine with slight reversal of the normal cervical lordosis. Qualitative osteopenia. Well- aerated paranasal sinuses and bilateral mastoid air cells. CT/Soft Tissue Neck WITH Contrast IMPRESSION: 1. No acute or active inflammatory process identified in the neck. 2. No neck mass or cervical lymphadenopathy. 3. Fluid and air-filled dilatation of the visualized esophagus, may reflect ach alasia. 4. Mild-moderate biapical pulmonary emphysema. 8 mm nodule in the left upper l obe. Multiple nonspecific enlarged upper mediastinal lymph nodes; see separate CT thorax report. 5. Multiple small subcentimeter thyroid nodules/cysts. Reading Location: [id number]
[2025-07-22 15:52] LABS: Troponin T High Sens 2 HR 39 ng/L (<=14)
--- NOTE | 2025-07-22 17:07 | ED.RN ---
when this rn attempts to complete pt home med list, pt and daughter did not bring a copy in. pts dtr to bring a copy of med list when she comes back in to visit the patient
[2025-07-22 17:08] LABS: Troponin T High Sens 4 HR 38 ng/L (<=14)
--- NOTE | 2025-07-22 17:21 | ECHOCS_ITS ---
Reason For Study Reason For Study: CHF Procedure This was a 2D Doppler, Color Flow transthoracic echocardiogram. Technically difficult study. Echo done with patient supine and on the Vent. Contrast injection was used. Exam performed portable in ICU/CCU. Left Ventricle Normal LV size. Mild concentric left ventricular hypertrophy. The left ventricular ejection fraction is 70 %. Stage 1 diastolic dysfunction. Right Ventricle Normal right ventricle. Atria The left atrium is moderately enlarged. Normal right atrium. Mitral Valve Mild mitral annular calcification. Tricuspid Valve Normal tricuspid valve. Aortic Valve The aortic valve is not well visualized in the short axis view. There is no aortic stenosis. No aortic valve insufficiency. Pulmonic Valve The pulmonic valve is not well visualized. Great Vessels The aortic root is not well visualized. Pericardium/Pleural No pericardial effusion. Medication Diluted definity 1.5ml given slow IV push to enhance endocardial definition. MMode/2D Measurements & Calculations LVIDd: 4.1 cm IVSd: 1.1 cm LVOT diam: 2.0 cm LVIDs: 2.8 cm LVPWd: 1.2 cm RVDd: 3.4 cm FS: 33.0 % LVOT area: 3.2 cm2 LA dimension: 4.6 cm LAV(MOD-sp4): 67.4 ml LVAd ap4: 29.3 cm2 LVLd ap4: 7.7 cm EDV(MOD-sp4): 93.8 ml EDV(sp4-el): 95.3 ml LVAs ap4: 15.2 cm2 LVLs ap4: 6.2 cm ESV(MOD-sp4): 32.5 ml ESV(sp4-el): 31.8 ml EF(MOD-sp4): 65.3 % EF(sp4-el): 66.6 % SV(MOD-sp4): 61.2 ml SV(sp4-el): 63.5 ml LA A4 area: 23.9 cm2 SI(MOD-sp4): 32.1 ml/m2 RA A4 area: 15.8 cm2 TAPSE: 2.0 cm Time Measurements MV dec time: 0.23 sec Doppler Measurements & Calculations MV E max acosta: 117.0 cm/sec Lat Peak E' Acosta: 6.3 cm/sec Med Peak E' Acosta: 6.8 cm/sec MV A max acosta: 74.4 cm/sec E/E' lat: 18.5 E/E' med: 17.3 MV E/A: 1.6 MV V2 max: 129.7 cm/sec MV P1/2t max acosta: 130.9 cm/sec Ao V2 max: 161.1 cm/sec MV max P.7 mmHg MV P1/2t: 86.4 msec Ao max P.4 mmHg MV V2 mean: 71.3 cm/sec MV dec slope: 443.6 cm/sec2 Ao V2 mean: 98.3 cm/sec MV mean P.5 mmHg MVA(P1/2t): 2.5 cm2 Ao mean P.6 mmHg MV V2 VTI: 35.4 cm Ao V2 VTI: 31.7 cm MVA(VTI): 1.8 cm2 AV (velocity ratio): 0.64 RENETTA(I,D): 2.0 cm2 RENETTA(V,D): 2.0 cm2 LV V1 max: 101.6 cm/sec SV(LVOT): 65.0 ml LV V1 max P.1 mmHg LV V1 mean P.7 mmHg LV V1 mean: 60.0 cm/sec LV V1 VTI: 20.4 cm ECHO/Echo Complete W/ Contrast Interpretation Summary Technically difficult study. Mild concentric left ventricular hypertrophy. The left ventricular ejection fraction is 70 %. Stage 1 diastolic dysfunction. The left atrium is moderately enlarged. Mild mitral annular calcification. Ordering Physician: Antoni Argueta Performed By: Philippe Dias RCS
[2025-07-22 18:15] LABS: Procalcitonin 0.68 ng/mL (<=0.10)
--- NOTE | 2025-07-22 18:45 | NURSING ---
Patient came up from ED with clothing cut off and laying under the patient. Explained to the patient that her clothing was cut off and would need clothes at discharge. Patient states she understands.
--- NOTE | 2025-07-22 19:36 | CON.PCM.GI_ITS ---
HPI Consult Data Date of Consult: 07/22/25 HPI Narrative Reason for Consultation: Abnormal CT scan HPI Narrative: WING LIN, is aa 80-year-old female with a past medical history of chronic obstructive pulmonary disease with emphysema requiring 4 L of oxygen at home, congestive heart failure , chronic kidney disease , and chronic hyponatremia. She presents to the emergency department with increased respiratory distress and shortness of breath that began a few days ago. Her symptoms are preceded by upper respiratory infection ( symptoms, including a cough, fatigue, and sore throat. She has a history of gastroesophageal reflux and was evaluated by gastroenterology due to a dilated esophagus with retained material, raising suspicion for achalasia causing aspiration pneumonia. The patient reports worsening cough and increasing difficulty breathing that are not relieved by her usual home oxygen.? I took care of her last year when she presented with painful jaundice and was discovered to have choledocholithiasis and underwent an ERCP with stone removal. * Chest X-ray (CXR):?Infiltrates consistent with pneumonia, often in dependent lung segments, diffuse infiltrates, or signs of heart failure exacerbation . * CT Chest:?More sensitive than CXR for infiltrates and can reveal dilated esophagus. [facility] Medical History (Updated 07/22/25 @ 19:[address] Lundy Friend, DO) Wears glasses Wears dentures Diabetes Walker as ambulation aid Arthritis Hepatitis High cholesterol Easy bruising Back pain Syncope Dietary restriction History of hiatal hernia Gastric reflux On home oxygen therapy Shortness of breath on exertion Leg cramps History of pain when walking History of edema History of irregular heartbeat CKD (chronic kidney disease), stage IV Chronic hypoxic respiratory failure, on home oxygen therapy Anxiety and depression Chronic obstructive pulmonary disease Iron deficiency anemia Hyperlipidemia Diabetes mellitus Former smoker Stroke/cerebrovascular accident Hypertension Emphysema of lung CKD stage 4 due to type 1 diabetes mellitus Home Medications ?Medication ?Instructions ?Recorded ?Last Taken ?Type aspirin 81 mg chewable tablet 81 mg PO DAILY@0800 Hear t health 12/27/16 07/28/23 History bupropion HCl 150 mg tablet,12 hr 150 mg PO BID mental health 12/27/16 07/28/23 History sustained-release cyanocobalamin (vitamin B-12) 1,000 mg PO DAILY supple ment 12/27/16 07/28/23 History 1,000 mcg tablet (Vitamin B-12) lovastatin 40 mg tablet 40 mg PO QHS cholesterol 07/27/23 History montelukast 10 mg tablet 10 mg PO DAILY allergies 07/28/23 History trazodone 150 mg tablet 150 mg PO QHS insomnia 12/2707/27/23 History venlafaxine 150 mg 150 mg PO DAILY depression 0 12/27/16 07/28/23 History capsule,extended release 24 hr albuterol sulfate 90 mcg/actuation 1 - 2 puff inhalati on Q4H PRN PRN 12/30/16 01/19/20 Rx aerosol inhaler (Ventolin HFA) Sob &/Or Wheezing ##1 bisoprolol fumarate 5 mg tablet 5 mg PO DINNER blood p ressure 04/19/21 07/27/23 History pioglitazone 30 mg tablet 30 mg PO DAILY@0800 diabetes 01/26/22 07/28/23 History oxycodone-acetaminophen 5 mg-325 1 tab PO Q12H PRN diogo k pain 07/28/23 07/28/23 History mg tablet
--- NOTE | 2025-07-22 19:36 | EX.PCM.CON.G ---
HPI Consult Data Date of Consult: 07/22/25 HPI Narrative Reason for Consultation: Abnormal CT scan HPI Narrative: WING LIN, is aa 80-year-old female with a past medical history of chronic obstructive pulmonary disease with emphysema requiring 4 L of oxygen at home, congestive heart failure , chronic kidney disease , and chronic hyponatremia. She presents to the emergency department with increased respiratory distress and shortness of breath that began a few days ago. Her symptoms are preceded by upper respiratory infection ( symptoms, including a cough, fatigue, and sore throat. She has a history of gastroesophageal reflux and was evaluated by gastroenterology due to a dilated esophagus with retained material, raising suspicion for achalasia causing aspiration pneumonia. The patient reports worsening cough and increasing difficulty breathing that are not relieved by her usual home oxygen.? I took care of her last year when she presented with painful jaundice and was discovered to have choledocholithiasis and underwent an ERCP with stone removal. Chest X-ray (CXR):?Infiltrates consistent with pneumonia, often in dependent lung segments, diffuse infiltrates, or signs of heart failure exacerbation . CT Chest:?More sensitive than CXR for infiltrates and can reveal dilated esophagus. [facility] Medical History (Updated 07/22/25 @ 19:[address] Lundy Friend, DO) Wears glasses Wears dentures Diabetes Walker as ambulation aid Arthritis Hepatitis High cholesterol Easy bruising Back pain Syncope Dietary restriction History of hiatal hernia Gastric reflux On home oxygen therapy Shortness of breath on exertion Leg cramps History of pain when walking History of edema History of irregular heartbeat CKD (chronic kidney disease), stage IV Chronic hypoxic respiratory failure, on home oxygen therapy Anxiety and depression Chronic obstructive pulmonary disease Iron deficiency anemia Hyperlipidemia Diabetes mellitus Former smoker Stroke/cerebrovascular accident Hypertension Emphysema of lung CKD stage 4 due to type 1 diabetes mellitus Home Medications ?Medication ?Instructions ?Recorded ?Last Taken ?Type aspirin 81 mg chewable tablet 81 mg PO DAILY@0800 Heart health 12/27/16 07/28/23 History bupropion HCl 150 mg tablet,12 hr 150 mg PO BID mental health 12/27/16 07/28/23 History sustained-release cyanocobalamin (vitamin B-12) 1,000 mg PO DAILY supplement 12/27/16 07/28/23 History 1,000 mcg tablet (Vitamin B-12) lovastatin 40 mg tablet 40 mg PO QHS cholesterol 12/27/16 07/27/23 History montelukast 10 mg tablet 10 mg PO DAILY allergies 12/27/16 07/28/23 History trazodone 150 mg tablet 150 mg PO QHS insomnia 12/27/16 07/27/23 History venlafaxine 150 mg 150 mg PO DAILY depression 12/27/16 07/28/23 History capsule,extended release 24 hr albuterol sulfate 90 mcg/actuation 1 - 2 puff inhalation Q4H PRN PRN 12/30/16 01/19/20 Rx aerosol inhaler (Ventolin HFA) Sob &/Or Wheezing ##1 bisoprolol fumarate 5 mg tablet 5 mg PO DINNER blood pressure 04/19/21 07/27/23 History pioglitazone 30 mg tablet 30 mg PO DAILY@0800 diabetes 01/26/22 07/28/23 History oxycodone-acetaminophen 5 mg-325 1 tab PO Q12H PRN back pain 07/28/23 07/28/23 History mg tablet aripiprazole 10 mg tablet 10 mg PO DAILY 02/29/24 Unknown History esomeprazole magnesium 40 mg 40 mg PO DAILY 02/29/24 Unknown History capsule,delayed release losartan 50 mg tablet 50 mg PO DAILY #30 tabs 03/03/24 Unknown Rx glimepiride 2 mg tablet 2 mg PO BID 05/11/24 Unknown History Allergy/AdvReac Type Severity Reaction Status Date / Time No Known Allergies Allergy Verified 07/22/25 13:19 Family History Mother Diabetes Heart disease Hypertension Father Diabetes Heart disease Hypertension Surgical History (Updated 05/25/24 @ 10:05 by Destiney Vazquez) History of ERCP Hx laparoscopic cholecystectomy Status post open reduction with internal fixation (ORIF) of fracture of ankle Social History household members: spouse Smoking Status: Former smoker how long ago did patient quit smoking: Smoked 2 ppd until ~ 10 years ago since teen until quit. alcohol intake: never substance use type: does not use ROS Constitutional Constitutional: Reports fatigue and weakness; Denies chills or fever(s) Eyes Eyes: Denies change in vision Cardiovascular Cardiovascular: Denies chest pain Respiratory/Chest Respiratory/Chest: Reports cough, shortness of breath at rest and wheezing; Denies productive cough or shortness of breath with exertion Gastrointestinal Gastrointestinal: Denies abdominal pain, nausea or vomiting Genitourinary Genitourinary: Denies dysuria Musculoskeletal Musculoskeletal: Denies arthralgias or myalgias Neurologic Neurologic: Denies dizziness, focal weakness, headache(s), numbness or tingling Physical Exam Const alert, no apparent distress and average body habitus Constitutional Narrative: breathing on BiPAP, General Appearance: cooperative and comfortable HEENT normocephalic, head/scalp atraumatic, hearing grossly normal bilaterally, nasal mucous membranes and turbinates normal and moist oral mucous membranes HEENT Narrative: BiPAP in place. Eyes PERRL, EOMs intact bilaterally and conjunctivae normal Neck Neck Narrative: Bruising noted on the right side of the neck presumed from recent fall. Chest inspection of chest normal Resp normal respiratory effort and no use of accessory muscles Resp Narrative: Breathing comfortably on BiPAP. Mild wheezing noted in upper airways bilaterally and crackles noted in low to mid lung zones bilaterally. Cardio no murmurs and peripheral pulses 2+ throughout Cardio Narrative: Tachycardic, regular rhythm. GI normal to inspection, nondistended, normoactive bowel sounds, soft to palpation, non-tender and non-distended Back/Spine normal ROM Extremity full ROM Extremity Narrative: +1-2 lower extremity nonpitting edema noted. Skin no rashes or lesions noted Neuro moves all extremities and no focal motor deficits Neuro Narrative: Generalized lower extremity weakness noted. Psych Psych Narrative: Flat affect. Lab / Micro Data 07/22/25 12:32 07/22/25 12:32 Labs: Laboratory Results - last 24 hr 07/22/25 12:32: WBC 17.0 H, RBC 2.90 L, Hgb 9.1 L, Hct 28.8 L, MCV 99.3 H, MCH 31.4, MCHC 31.6 L, RDW Std Deviation 49.3 H, RDW Coeff of Tessa 13.5, Plt Count 230, MPV 9.4, Immature Gran % (Auto) 1.000 H, Neut % (Auto) 87.3 H, Lymph % (Auto) 4.4 L, [place] % (Auto) 6.7, Eos % (Auto) 0.4, Baso % (Auto) 0.2, Absolute Neuts (auto) 14.8 H, Absolute Lymphs (auto) 0.75 L, Nucleated RBC % 0, Sodium 133, Potassium 5.4 H, Chloride 102, Carbon Dioxide 19.0 L, Anion Gap 12, BUN 50 H, Creatinine 2.04 H, Estim Creat Clear Calc 24.23 L, Est GFR (MDRD) Non-Af 24 L, BUN/Creatinine Ratio 24.5 H, Glucose 232 H, Lactic Acid < 1.0, Calcium 8.6, Total Bilirubin 0.40, AST 55 H, ALT 30, Alkaline Phosphatase 132 H, Troponin T High Sens 40 H, NT pro BNP II 5405 H, Total Protein 7.1, Albumin 3.3 L, Globulin 3.9, Albumin/Globulin Ratio 0.8 L 07/22/25 13:09: Urine Color Yellow, Urine Clarity Clear, Urine pH 6.0, Ur Specific [place] 1.015, Urine Protein 100 H, Urine Glucose (UA) Normal, Urine Ketones Negative, Urine Occult Blood 10 H, Urine Nitrite Negative, Urine Bilirubin Negative, Urine Urobilinogen 1 H, Ur Leukocyte Esterase 25 H, Urine RBC 0 SEEN, Urine WBC 0 SEEN, Ur Squamous Epith Cells 0 SEEN, Urine Bacteria 0 SEEN, Urine Mucus 0 SEEN 07/22/25 15:23: Troponin T Hi Sens 2 Hr 39 H 07/22/25 16:33: Troponin T Hi Sens 4Hr 38 H, Procalcitonin 0.68 H Micro: Microbiology 07/22/25 12:30 Mucosa - Nose SARS-CoV-2, Influenza & RSV (PCR) - Final ABG Data ABG results: ABG 07/22/25 07/22/25 12:43 13:27 Specimen Type SARAH ART Sample Site L Radial R Brach pH 7.18 L* 7.31 L Bicarbonate Actual 21.7 L 20.0 L Total CO2 24 21 Base Excess -7 L -6 L O2 Saturation 83 L 95 O2 % 45.0 40.0 ABG pCO2 58.7 H 39.6 ABG pO2 60 L 82 Ed Test Positive O2 Delivery Device BiPAP BiPAP Vent Mode Not entered Not entered Crit Call To/Read Back Yes Blood Gas Notified Whom DR. RAYMOND Clinical Comments 15 6 15 6 Imaging Radiology Impression Chest X-Ray 07/22/25 12:17 IMPRESSION: Findings in the mid and lower right lung suggesting possible pneumonia, with possible underlying fibrosis/scarring. Follow-up PA and lateral chest exam is recommended. Scarring versus small effusion the in the lateral left lung base. Tortuous calcific aortic atherosclerosis. Reading Location: [facility] Chest CTA 07/22/25 14:28 IMPRESSION: Cardiomegaly and bilateral pleural effusions may be suggestive of CHF. Airspace opacities in the lower lungs may represent atelectasis or pneumonia. Dilated esophagus with ingested material consistent with gastroesophageal reflux. Follow-up with outpatient barium swallow can be helpful for further evaluation. No evidence of pulmonary embolism. Reading Location: [facility] Soft Tissue Neck CT 07/22/25 14:28 IMPRESSION: 1. No acute or active inflammatory process identified in the neck. 2. No neck mass or cervical lymphadenopathy. 3. Fluid and air-filled dilatation of the visualized esophagus, may reflect achalasia. 4. Mild-moderate biapical pulmonary emphysema. 8 mm nodule in the left upper lobe. Multiple nonspecific enlarged upper mediastinal lymph nodes; see separate CT thorax report. 5. Multiple small subcentimeter thyroid nodules/cysts. Reading Location: [id number] Assessment & Plan Assessment/Plan (1) Gastroesophageal reflux disease: (2) Stroke: (3) Dysphagia: PLAN: 80-year-old female presents with acute respiratory distress likely from multifactorial causes, most prominently?aspiration pneumonia?superimposed on a?COPD exacerbation?and potentially?acute decompensated heart failure. The patient's underlying GERD and suspected achalasia are significant risk factors for recurrent aspiration, which can be triggered by URI symptoms or impaired consciousness. The chronic hyponatremia is likely secondary to her advanced CHF and CKD, and is associated with increased morbidity.? Differential Diagnoses: Aspiration Pneumonia:?High clinical suspicion based on history of GERD, suspected achalasia, and recent URI. The dilated esophagus with retained material is a stallworth finding. COPD Exacerbation:?Worsening respiratory symptoms on a background of severe COPD is a common presentation. Congestive Heart Failure Exacerbation:?Respiratory distress in a patient with a history of CHF raises concern for fluid overload, though the URI and aspiration history point away from this as the sole cause. Acute Bacterial Pneumonia (non-aspiration):?A standard community-acquired pneumonia could be the cause of her URI-like symptoms and respiratory distress. Pulmonary Embolism (PE):?Must be considered in the differential for any patient with acute respiratory distress, particularly with comorbidities.? Plan Respiratory Support:?Continuous oxygen therapy, possibly escalating to non-invasive ventilation (BiPAP/CPAP) or intubation if needed. Antibiotics:?Empiric antibiotics covering aspiration pneumonia. Monitoring:?Continuous cardiac and oxygen saturation monitoring. Positioning:?Place patient in a semi-recumbent position to minimize further aspiration risk. Diagnostics: CXR/CT:?Obtain imaging to confirm pneumonia, evaluate for CHF, and assess esophageal dilation. Swallowing Evaluation:?Consider consult with a speech-language pathologist for a formal swallow study to assess for dysphagia and confirm aspiration risk. Therapeutics: Gastroenterology: Patient will need to undergo an EGD while she can get off of BiPAP for therapeutic treatment of esophageal dysphagia with possible esophageal dilation plus or minus Botox. ?Definitive diagnosis of achalasia via manometry and esophagram once the patient is stable. Aspiration Prevention:?Modify diet to soft or pureed foods, and ensure upright positioning for meals. Consider enteral feeding if severe dysphagia persists. Charges/Coding Visit Charges Inpatient E&M: 18929 Init Hosp L3
--- NOTE | 2025-07-22 21:05 | NURSING ---
Report was given to MIRZA Keller in preparation for transfer to ICU level care.
[2025-07-22] MEDS: 0.9% Saline Lock 10 ML Syringe IV (21:19)
--- NOTE | 2025-07-22 22:02 | PCM.OP.PRO2 ---
Procedures Hospitalists Procedures: 24101 Insert Emergency Airway Bedside Procedural Bedside Procedure Information Date of Procedure: 07/22/25 Pre-Procedure Diagnosis: Acute respiratory failure Post-Procedure Diagnosis: Acute respiratory failure Procedure Performed:: Endotracheal intubation anesthesia resident: No Procedure Time Out: : Procedure Start Time: Procedure Stop Time: : Special Medications: Etomidate 30 mg, Versed 4 mg Description of procedure: Patient with evidence of respiratory distress. Was intubated in standard fashion with visualization of the vocal cords with glide scope and passage of the ETT. There were copious secretions from the esophagus noted during intubation that were actively suctioned. Positioning verified via auscultation and end-tidal CO2 monitor. OG tube placed with assistance of glide scope after ET tube placement. Chest x-ray and KUB ordered to confirm placement of ET tube and OG tube. Camera Storage Clerk consulted for assistance with ventilator management. Complications Complications: No
--- NOTE | 2025-07-22 22:05 | RAD_ITS ---
PROCEDURE: CHEST 1 VIEW (PORTABLE) 07/22/2025 REASON FOR EXAM: ETT PLACEMENT TECHNIQUE: Frontal view of the chest. COMPARISON: Earlier on the same day. FINDINGS: Since the previous study, the patient has been intubated, with the tip of the ET tube approximately 4.5 cm above the rhona, however evaluation is limited due to overlying opacities. An enteric tube is also in place with its tip in the distal esophagus. Recommend advancing the enteric tube at least 10 cm. Stable appearance of the heart and lungs with patchy and reticular opacities bilaterally. RAD/Chest 1 View (Portable) IMPRESSION: As above. Reading Location: [id number]
--- NOTE | 2025-07-22 22:05 | PCM.HOSP.N ---
Hospitalist Note Called to patient bedside around 9 PM by nursing staff and respiratory therapy. Patient had been on 4 L nasal cannula for period of time but developed increased work of breathing and stridor. On my evaluation, patient had significant rhonchorous breath sounds noted in the upper airways. On further chart review, I suspect that the significant contents in her esophagus are exerting pressure on the airway. Patient was placed back on BiPAP and had some improvement in work of breathing but continued to have stridorous breath sounds. Given these findings, decision was made to move patient up to the ICU and proceed with endotracheal intubation for airway protection and for acute respiratory distress. I obtained consent from the patient at the bedside. I also spoke with patient's daughter Abi over the phone prior to the intubation. Patient was noted to have significant secretions during intubation presume secondary to esophagus contents. OGT was placed after intubation and set to suction with adequate removal of esophageal contents. See intubation note for further details.
[2025-07-22] MEDS: Propofol 10MG/Ml 1,000 MG/100 ML Bottle 5 MG CONT INF (22:11)
--- NOTE | 2025-07-22 22:26 | NURSING ---
Pt came up to ICU at 2129. Time out called by Dr. Argueta at 2140. 30 mg of etomidate given at 2141. 2mg of versed given at 2141. Restraints applied at 5. 2mg versed given at 2147. OG placed at 2152. 7.5 ETT 23 @ [facility]. CXR and KUB ordered.
[2025-07-22] MEDS: fentaNYL drip 100 ML 2.5 MCG CONT INF (23:04)
--- NOTE | 2025-07-22 23:10 | RAD_ITS ---
PROCEDURE: CHEST 1 VIEW (PORTABLE) 07/22/2025 REASON FOR EXAM: OG LINE PLACEMENT TECHNIQUE: Frontal view of the chest. COMPARISON: 07/22/2025. FINDINGS: Orogastric tube is coiled within the region of the esophagus. Reticular opacities of the partially visualized lungs. RAD/Chest 1 View (Portable) IMPRESSION: Improperly positioned orogastric tube. Reading Location: [id number]
[2025-07-22] MEDS: Pantoprazole Sodium 40 MG in 0.9% Normal Saline (100mL MB+) 100 ML 300 MG IV (23:16)
[2025-07-22] MEDS: Midazolam 2 MG/2 ML Syringe 4 MG IV (23:16)
[2025-07-22] MEDS: Chlorhexidine 15 ML PO (23:17)
--- NOTE | 2025-07-22 23:31 | PCM.HOSP.N ---
Hospitalist Note OGT placed using Glidescope to measured depth. CXR/KUB demonstrated tip in distal esophagus, advised nrsg staff to advance and repeat KUB. Repeat KUB demonstrated OGT at GEJ, with side port within esophagus. Posterior oropharynx visualized with light and tongue depression, no coiling of OGT noted. Suspect OGT is possibly coiled within the esophagus prior to reaching GEJ. Advised nrsg staff to leave OGT clamped at this time.
[2025-07-22 23:38] LABS: Base Excess -4 mmol/L (-2 to +2); FI02 50.0; PEEP 10; PO2 151 mmHG (75-100); RR 16; SITE L Radial; SO2 99 % (95-99)
[2025-07-23] VITALS (35 sets, daily range): BP systolic 106–168; BP diastolic 45–84; PULSE 70–101; RESP 16–21; TEMP 35.7–36.2; O2SAT 95–98; BMI 28.7
[2025-07-23] MEDS: Heparin Injection (Vial) 5,000 UNIT/ML VIAL 5000 UNIT SC ×4 (00:11→21:42)
[2025-07-23] MEDS: Piperacil/Tazobactam 3.375 GM in 0.9% Normal Saline (50mL MB+) 50 ML IV ×4 (00:11→21:40)
[2025-07-23] MEDS: 0.9% Saline Lock 10 ML Syringe IV (00:20)
--- NOTE | 2025-07-23 01:13 | CPS ---
pt was taken off bipap at 07/22 and placed on nasal o2 at 4L satting high 90's. after aerosol and resp panel were done pt started coughing more and became more and more stridorous. RN notified. spo2 dropped to 85% on nasal o2 so RT put pt back on bipap temporarily and then called .
[2025-07-23 04:58] LABS: Hematocrit 29.4 % (37-47); Hemoglobin 9.4 g/dL (12.0-15.0); Mean Corp Hgb Conc 32.0 g/dL (32-36); Mean Corpuscular Volume 95.1 fL (81-99); Mean Platelet Vol. 9.6 fl (6.2-12.0); Platelet Count 254 K/mm3 (150-450); RBC Distribution Width CV 13.5 % (11.6-14.6); RBC Distribution Width SD 46.9 fl (35.1-43.9); Red Blood Count 3.09 M/mm3 (4.2-5.4); White Blood Count 15.9 K/mm3 (4.4-11.0)
--- NOTE | 2025-07-23 05:26 | PCMCONS.TICU ---
HPI Consult Data Date of Consult: 07/23/25 HPI Narrative Reason for Consultation: Intubated HPI Narrative: WING LIN, is a 80 F who presents for Dysphagia. Patient found to have Achalasia therefore GI was consulted and patient was admitted to floor. Patient was on 4L NC at home but patient was having respiratory distress therefore BiPAP was tried initially but patient continued to worsen therefore patient was transferred to ICU and intubated. PMHx: COPD on 4L NC O2, CHF, CKD, CVA, DM, HTN, HLD, Anxiety/depression. [facility] Medical History Wears glasses Wears dentures Diabetes Walker as ambulation aid Arthritis Hepatitis High cholesterol Easy bruising Back pain Syncope Dietary restriction History of hiatal hernia Gastric reflux On home oxygen therapy Shortness of breath on exertion Leg cramps History of pain when walking History of edema History of irregular heartbeat CKD (chronic kidney disease), stage IV Chronic hypoxic respiratory failure, on home oxygen therapy Anxiety and depression Chronic obstructive pulmonary disease Iron deficiency anemia Hyperlipidemia Diabetes mellitus Former smoker Stroke/cerebrovascular accident Hypertension Emphysema of lung CKD stage 4 due to type 1 diabetes mellitus Home Medications ?Medication ?Instructions ?Recorded ?Last Taken ?Type aspirin 81 mg chewable tablet 81 mg PO DAILY@0800 Heart health 12/27/16 07/28/23 History bupropion HCl 150 mg tablet,12 hr 150 mg PO BID mental health 12/27/16 07/28/23 History sustained-release cyanocobalamin (vitamin B-12) 1,000 mg PO DAILY supplement 12/27/16 07/28/23 History 1,000 mcg tablet (Vitamin B-12) lovastatin 40 mg tablet 40 mg PO QHS cholesterol 12/27/16 07/27/23 History montelukast 10 mg tablet 10 mg PO DAILY allergies 12/27/16 07/28/23 History trazodone 150 mg tablet 150 mg PO QHS insomnia 12/27/16 07/27/23 History venlafaxine 150 mg 150 mg PO DAILY depression 12/27/16 07/28/23 History capsule,extended release 24 hr albuterol sulfate 90 mcg/actuation 1 - 2 puff inhalation Q4H PRN PRN 12/30/16 01/19/20 Rx aerosol inhaler (Ventolin HFA) Sob &/Or Wheezing ##1 bisoprolol fumarate 5 mg tablet 5 mg PO DINNER blood pressure 04/19/21 07/27/23 History pioglitazone 30 mg tablet 30 mg PO DAILY@0800 diabetes 01/26/22 07/28/23 History oxycodone-acetaminophen 5 mg-325 1 tab PO Q12H PRN back pain 07/28/23 07/28/23 History mg tablet aripiprazole 10 mg tablet 10 mg PO DAILY 02/29/24 Unknown History esomeprazole magnesium 40 mg 40 mg PO DAILY 02/29/24 Unknown History capsule,delayed release losartan 50 mg tablet 50 mg PO DAILY #30 tabs 03/03/24 Unknown Rx glimepiride 2 mg tablet 2 mg PO BID 05/11/24 Unknown History Allergy/AdvReac Type Severity Reaction Status Date / Time No Known Allergies Allergy Verified 07/22/25 13:19 Family History Mother Diabetes Heart disease Hypertension Father Diabetes Heart disease Hypertension Surgical History History of ERCP Hx laparoscopic cholecystectomy Status post open reduction with internal fixation (ORIF) of fracture of ankle Social History household members: spouse Smoking Status: Former smoker how long ago did patient quit smoking: Smoked 2 ppd until ~ 10 years ago since teen until quit. alcohol intake: never substance use type: does not use Objective Data Objective Data Vital Signs: Vital Signs Last response Temperature 36.0 C L 07/23/25 03:00 Temperature Source Core 07/23/25 03:00 Pulse Rate 94 07/23/25 05:15 Respiratory Rate 17 07/23/25 04:38 Respiratory Effort Mechanically Ventilated 07/23/25 00:00 Respiratory Depth Normal 07/23/25 00:00 Respiratory Pattern Normal 07/23/25 00:00 Blood Pressure 152/61 H 07/23/25 03:00 Blood Pressure Mean 91 07/23/25 03:00 Blood Pressure Source Monitor 07/22/25 22:00 Blood Pressure Position Semi-Fowlers 07/22/25 22:00 Blood Pressure Location Left Arm 07/22/25 22:00 Pulse Ox 97 07/23/25 05:15 Oxygen Delivery Method Mechanical Ventilator 07/23/25 03:00 Oxygen Flow Rate (L/min) 4 07/22/25 21:16 Fraction of Inspired Oxygen (FIO2) 35 07/23/25 03:00 I&O: I&O Last 24 Hours 07/22/25 07/22/25 07/23/25 11:59 23:59 11:59 Intake Total 419.85 / 426.08 142.03 / 142.03 Output Total 575 / 575 Balance 419.85 / -148.92 -432.97 / -432.97 I&O: Total Stay 07/22/25 12:11 thru 07/23/25 04:57 Intake Total 561.88 Output Total 575 Balance -13.12 Ventilator:: AC/VC - 30%/ RR 16, PEEP 8 to 5, VT 400 Current Meds Ordered / Administered: Current meds ordered / Administered Generic Name Dose Route Start Last Admin Trade Name Freq PRN Reason Stop Dose Admin Acetaminophen 650 mg 07/22/25 18:32 Acetaminophen 325 Mg Tablet PO Q6H PRN PRN Pain 1-10 Or Fever>100.7 Albuterol/Ipratropium 3 ml 07/22/25 18:32 07/22/25 20:50 Ipratropium/Albuterol Sulfate 3 Ml Ampul.Neb INHALATION 3 ml Q6HWA.RT REG Administration Aripiprazole 10 mg 07/23/25 10:00 Aripiprazole 10 Mg Tablet PO DAILY [facility] Protocol Aspirin 81 mg 07/23/25 08:00 Aspirin 81 Mg Tab.Chew PO DAILY@0800 [facility] Atorvastatin Calcium 10 mg 07/22/25 22:00 07/23/25 00:12 Atorvastatin Calcium 10 Mg Tablet PO Not Given QHS [facility] Bisoprolol Fumarate 5 mg 07/23/25 17:00 Bisoprolol Fumarate 5 Mg Tablet PO DINNER [facility] Bupropion HCl 150 mg 07/22/25 22:00 07/23/25 00:12 Bupropion (Sr) 150 Mg Tablet.Sa PO Not Given BID [facility] Chlorhexidine Gluconate 15 ml 07/22/25 22:00 07/22/25 23:17 Chlorhexidine 15 Ml PO 15 ml BID REG Administration Cyanocobalamin 1,000 mcg 07/23/25 10:00 Cyanocobalamin 500 Mcg Tablet PO DAILY [facility] Fentanyl Citrate 50 mcg 07/22/25 21:59 Fentanyl 100 Mcg/2 Ml Ampul IV Q2H PRN PRN Pain >/= 4/10 or CPOT>/= 3/8 Furosemide 40 mg 07/22/25 18:32 07/22/25 21:18 Furosemide 40 Mg/4 Ml Vial IV 40 mg BIDLX REG Administration Protocol Glucagon 1 mg 07/22/25 21:04 Glucagon 1 Mg/Ml Syringe IM X1 PRN Hypoglycemia Protocol Heparin Sodium (Porcine) 5,000 unit 07/22/25 22:00 07/23/25 00:11 Heparin Injection (Vial) 5,000 Unit/Ml Vial SC 5,000 unit Q8 REG Administration Hydralazine HCl 10 mg 07/22/25 21:08 Hydralazine 20 Mg/Ml Vial IV Q4H PRN PRN SBP GREATER THAN 170 Protocol Sodium Chloride 250 mls @ 15 mls/hr 07/22/25 18:33 IV .[id number] PRN Saline Flush Sodium Chloride 250 mls @ 15 mls/hr 07/22/25 18:33 IV .[id number] PRN Additional IVPB Infusion Piperacillin Sod/Tazobactam 50 mls @ 12.5 mls/hr 07/22/25 22:00 07/23/25 04:15 Sod 3.375 gm/ Sodium Chloride IV Infused Q8 REG Infusion Dextrose 250 mls @ 0 mls/hr 07/22/25 21:04 Dextrose 10%-Water IV .Q0M PRN HYPOGLYCEMIA Protocol As Directed Pantoprazole Sodium 40 mg/ 100 mls @ 300 mls/hr 07/22/25 21:05 07/22/25 23:45 Sodium Chloride IV Infused Q24 REG Infusion Propofol 1,000 mg in 100 mls @ 4.97 mls/hr 07/22/25 22:00 07/23/25 04:30 Diprivan CONT INF 25 mcg/kg/min .Q12H REG 12.4 mls/hr Protocol Titration 10 MCG/KG/MIN Fentanyl 100 mls @ 2.5 mls/hr 07/22/25 22:55 07/23/25 04:00 CONT INF 50 mcg/hr UD REG 5 mls/hr Protocol Titration 25 MCG/HR Influenza Virus Vaccine 180 mcg 07/23/25 10:00 Flu Vaccine High Dose 25-26(65yr Up) 180 Mcg/0.5 Ml Syringe IM 07/23/25 10:01 .ONCE ONE Insulin Human Lispro 0 unit 07/22/25 22:00 07/23/25 00:11 Insulin Lispro 100 Unit/Ml Insuln.Pen SC 6 u ACHS [facility] Administration Protocol Losartan Potassium 50 mg 07/23/25 10:00 Losartan Potassium 50 Mg Tablet PO DAILY [facility] Protocol Methylprednisolone Sodium Succinate 40 mg 07/23/25 06:00 Methylprednisolone Sod Succ 40 Mg/Ml Vial IV Q8 [facility] Montelukast Sodium 10 mg 07/23/25 10:00 Montelukast 10 Mg Tablet PO DAILY [facility] Nystatin 1 applic 07/22/25 22:00 07/23/25 00:12 Nystatin Powder 15gm Bottle TOPICAL 1 applic BID [facility] Administration Protocol Ondansetron HCl 4 mg 07/22/25 18:32 Ondansetron 4 Mg/2 Ml Vial IV Q8H PRN PRN NAUSEA/VOMITING Sodium Chloride 10 - 40 ml 07/22/25 18:33 07/23/25 00:20 0.9% Saline Lock 10 Ml Syringe IV 30 ml UD PRN Administration SALINE FLUSH Trazodone HCl 150 mg 07/22/25 21:08 Trazodone 50 Mg Tablet PO QHS PRN sleep Venlafaxine HCl 150 mg 07/23/25 10:00 Venlafaxine Xr 150 Mg Capsule PO DAILY [facility] Physical Exam Narrative PHYSICAL EXAMINATION General: no acute distress; Intubated and sedated HEENT: PERRL; Anicteric Sclera; No thyromegaly, JVD, Lymphadenopathy Cardiovascular: Regular Rate and Rhythm; No murmurs, rubs, gallops; no displaced PMI Respiratory: no crackles, wheezes, or rhonchi Abdominal: Non-tender; Non-distended; Active BS x 4; No Hepatosplenomegaly Extremities: Warm, well perfused; No clubbing, cyanosis, edema; capillary refill < 2sec Neurological: Unable to perform Lab / Micro Data 07/23/25 04:50 07/22/25 12:32 Labs: Laboratory Results - last 24 hr 07/22/25 12:32: WBC 17.0 H, RBC 2.90 L, Hgb 9.1 L, Hct 28.8 L, MCV 99.3 H, MCH 31.4, MCHC 31.6 L, RDW Std Deviation 49.3 H, RDW Coeff of Tessa 13.5, Plt Count 230, MPV 9.4, Immature Gran % (Auto) 1.000 H, Neut % (Auto) 87.3 H, Lymph % (Auto) 4.4 L, Bryan % (Auto) 6.7, Eos % (Auto) 0.4, Baso % (Auto) 0.2, Absolute Neuts (auto) 14.8 H, Absolute Lymphs (auto) 0.75 L, Nucleated RBC % 0, Sodium 133, Potassium 5.4 H, Chloride 102, Carbon Dioxide 19.0 L, Anion Gap 12, BUN 50 H, Creatinine 2.04 H, Estim Creat Clear Calc 24.23 L, Est GFR (MDRD) Non-Af 24 L, BUN/Creatinine Ratio 24.5 H, Glucose 232 H, Hemoglobin A1c 6.4 H, Lactic Acid < 1.0, Calcium 8.6, Total Bilirubin 0.40, AST 55 H, ALT 30, Alkaline Phosphatase 132 H, Troponin T High Sens 40 H, NT pro BNP II 5405 H, Total Protein 7.1, Albumin 3.3 L, Globulin 3.9, Albumin/Globulin Ratio 0.8 L 07/22/25 13:09: Urine Color Yellow, Urine Clarity Clear, Urine pH 6.0, Ur Specific [place] 1.015, Urine Protein 100 H, Urine Glucose (UA) Normal, Urine Ketones Negative, Urine Occult Blood 10 H, Urine Nitrite Negative, Urine Bilirubin Negative, Urine Urobilinogen 1 H, Ur Leukocyte Esterase 25 H, Urine RBC 0 SEEN, Urine WBC 0 SEEN, Ur Squamous Epith Cells 0 SEEN, Urine Bacteria 0 SEEN, Urine Mucus 0 SEEN 07/22/25 15:23: Troponin T Hi Sens 2 Hr 39 H 07/22/25 16:33: Troponin T Hi Sens 4Hr 38 H, Procalcitonin 0.68 H 07/23/25 00:08: POC Glucose 320 H 07/23/25 04:50: WBC 15.9 H, RBC 3.09 L, Hgb 9.4 L, Hct 29.4 L, MCV 95.1, MCH 30.4, MCHC 32.0, RDW Std Deviation 46.9 H, RDW Coeff of Tessa 13.5, Plt Count 254, MPV 9.6 Micro: Microbiology 07/22/25 12:30 Mucosa - Nose SARS-CoV-2, Influenza & RSV (PCR) - Final ABG Data ABG results: ABG 07/22/25 07/22/25 07/22/25 12:43 13:27 23:34 Specimen Type SARAH ART ART Sample Site L Radial R Brach L Radial pH 7.18 L* 7.31 L 7.41 Bicarbonate Actual 21.7 L 20.0 L 20.4 L Total CO2 24 21 21 Base Excess -7 L -6 L -4 L O2 Saturation 83 L 95 99 O2 % 45.0 40.0 50.0 ABG pCO2 58.7 H 39.6 32.4 L ABG pO2 60 L 82 151 H Ed Test Positive N/A Respiration Rate 16 O2 Delivery Device BiPAP BiPAP Adult Vent Vent Mode Not entered Not entered AC Tidal Volume 400.0 POC PEEP 10 Crit Call To/Read Back Yes Blood Gas Notified Whom DR. RAYMOND Clinical Comments 15 6 15 6 Imaging Radiology Impression Chest X-Ray 07/22/25 12:17 IMPRESSION: Findings in the mid and lower right lung suggesting possible pneumonia, with possible underlying fibrosis/scarring. Follow-up PA and lateral chest exam is recommended. Scarring versus small effusion the in the lateral left lung base. Tortuous calcific aortic atherosclerosis. Reading [facility] Chest CTA 07/22/25 14:28 IMPRESSION: Cardiomegaly and bilateral pleural effusions may be suggestive of CHF. Airspace opacities in the lower lungs may represent atelectasis or pneumonia. Dilated esophagus with ingested material consistent with gastroesophageal reflux. Follow-up with outpatient barium swallow can be helpful for further evaluation. No evidence of pulmonary embolism. Reading Location: [id number] Soft Tissue Neck CT 07/22/25 14:28 IMPRESSION: 1. No acute or active inflammatory process identified in the neck. 2. No neck mass or cervical lymphadenopathy. 3. Fluid and air-filled dilatation of the visualized esophagus, may reflect achalasia. 4. Mild-moderate biapical pulmonary emphysema. 8 mm nodule in the left upper lobe. Multiple nonspecific enlarged upper mediastinal lymph nodes; see separate CT thorax report. 5. Multiple small subcentimeter thyroid nodules/cysts. Reading Location: [id number] Chest X-Ray 07/22/25 22:05 IMPRESSION: As above. Reading Location: [id number] Chest X-Ray 07/22/25 23:10 IMPRESSION: Improperly positioned orogastric tube. Reading Location: [id number] Assessment and Plan . Assessment and plan: #Acute respiratory failure, Hypoxia and hypercapnia -Continue Mechanical ventilation -Lung protective ventilation.? Focus will be to keep the tidal volume at 6 mL/kg ideal body weight.? Attempt will be made to keep the driving pressure less than 15 and the PEEP will be adjusted accordingly. -Plateau pressures, auto peeping will be monitored. -Keep plat pressure 30 and less -Target plateau < 30 and driving pressure < 15 if able to -Tidal volume at 6-8 mL/kg ideal body weight - ABCDEF bundle -Daily ABG and CXR -Ventilatory changes depending on ABG and Ventilatory pressures -Will target RASS of -2 sedation -Wean FiO2 first to 60% then wean PEEP as applicable -SAT and SBT when applicable -Duonebs q6hrs #Pneumonia - Mostlikely Aspiration -Blood cultures, sputum cultures -Monitor Lactic acid -IV abx-Zosyn -Check COVID/Flu A/B pending -Check urine legionella and strep pneumoniae #Achalasia -GI consulted -Will need EGD and dilatation #COPD -Start on Duonebs -Consider Brovana and Budesonide #DM, HTN, HLD, CVA, CHF, Anxiety and Depression -Restart home meds but can not be given via NG tube therefore consider converting to IV meds DVT px - SCD's for now, hold chemoprophylaxis in anticipation of EGD in am. Critical Care Time: 64mins The entirety of this encounter was done via Telemedicine
[2025-07-23 05:35] LABS: Anion Gap 16 (5-15); BUN 58 mg/dL (4-19); BUN/Creat Ratio 26.7 RATIO (10-20); Calcium,Total 8.7 mg/dL (7.6-11.0); Carbon Dioxide 17.6 mmol/L (21.0-32.0); Chloride 100 mmol/L (98-108); Estimated Creatinine Clearance 23.18 ml/min (50-250); Glucose 362 mg/dL (70-99); Potassium 5.0 mmol/L (3.3-5.1)
--- NOTE | 2025-07-23 05:50 | US_ITS ---
PROCEDURE: KIDNEY AND BLADDER 07/23/2025 REASON FOR EXAM: BENITO TECHNIQUE: Procedure Code: USKI Modality: US Procedure: KIDNEY AND BLADDER COMPARISON: None FINDINGS: Right kidney is atrophic and measures 8.3 x 4.1 x 4.0 cm. No echogenic renal calculi. No hydronephrosis. Left kidney is atrophic and measures 9.0 x 4.1 x 4.9 cm. No echogenic renal calculi. No hydronephrosis. [place] catheter is in place. Urinary bladder distended volume is 308 mL. Urinary bladder wall is mildly diffusely thickened, measuring 0.8 cm thickness. Bilateral distal ureters and ureteral jets are not visualized. US/Kidney and Bladder IMPRESSION: 1. Bilateral renal atrophy. No hydronephrosis. Reading Location: [id number]
[2025-07-23] MEDS: Propofol 10MG/Ml 1,000 MG/100 ML Bottle 12.4 MG CONT INF ×3 (06:14→20:47)
[2025-07-23 06:43] LABS: CPK Total, Creatine Kinase 33 U/L (24-195); Triglycerides 78 mg/dL
--- NOTE | 2025-07-23 06:52 | PN.HOSP_ITS ---
Reason for Visit Chief Complaint: Worsening shortness of breath Subjective Subjective No issues overnight. FiO2 is 30%. CT of the chest does show dilated esophagus with ingested material consistent with GERD. I am concerned for esophageal stricture/narrowing/malignancy and GI is consulted. We were not able to pass her OG as it was continually getting coiled in the esophagus. Objective Data Objective Data Vital Signs: Vital Signs Temp Pulse Resp BP Pulse Ox O2 Del Method O2 Flow Rate 96.5 F L 81 16 140/62 H 95 Mechanical Ventilator 4 07/23/25 04:00 07/23/25 06:00 07/23/25 06:00 07/23/25 06:00 07/23/25 06:00 07/23/25 06:00 07/22/25 21:16 FiO2 30 07/23/25 06:00 Oxygen Flow Rate (L/min) 4 Oxygen Delivery Method Mechanical Ventilator Weight: 83 kg Body Mass Index (BMI) 28.7 Intake & Output: Intake and Output for Last 24 Hours 07/21/25 07/22/25 07/23/25 23:59 23:59 23:59 Intake Total 419.85 / 426.08 163.73 / 163.73 Output Total 925 / 925 Balance 419.85 / -148.92 -761.27 / -761.27 Lab / Micro Data 07/23/25 04:50 07/23/25 04:50 Labs: Laboratory Results - last 24 hr 07/22/25 12:32: WBC 17.0 H, RBC 2.90 L, Hgb 9.1 L, Hct 28.8 L, MCV 99.3 H, MCH 31.4, MCHC 31.6 L, RDW Std Deviation 49.3 H, RDW Coeff of Tessa 13.5, Plt Count 230, MPV 9.4, Immature Gran % (Auto) 1.000 H, Neut % (Auto) 87.3 H, Lymph % (Auto) 4.4 L, [place] % (Auto) 6.7, Eos % (Auto) 0.4, Baso % (Auto) 0.2, Absolute Neuts (auto) 14.8 H, Absolute Lymphs (auto) 0.75 L, Nucleated RBC % 0, Sodium 133, Potassium 5.4 H, Chloride 102, Carbon Dioxide 19.0 L, Anion Gap 12, BUN 50 H, Creatinine 2.04 H, Estim Creat Clear Calc 24.23 L, Est GFR (MDRD) Non-Af 24 L , BUN/Creatinine Ratio 24.5 H, Glucose 232 H, Hemoglobin A1c 6.4 H, Lactic Acid < 1.0, Calcium 8.6, Total Bilirubin 0.40, AST 55 H, ALT 30, Alkaline Phosphatase 132 H, Troponin T High Sens 40 H, NT pro BNP II 5405 H, Total Protein 7.1, A lbumin 3.3 L, Globulin 3.9, Albumin/Globulin Ratio 0.8 L 07/22/25 13:09: Urine Color Yellow, Urine Clarity Clear, Urine pH 6.0, Ur Specific [place] 1.015, Urine Protein 100 H, Urine Glucose (UA) Normal, Urine Ketones Negative, Urine Occult Blood 10 H, Urine Nitrite Negative, Urine Bilirubin Negative, Urine Urobilinogen 1 H, Ur Leukocyte Esterase 25 H, Urine RBC 0 SEEN, Urine WBC 0 SEEN, Ur Squamous Epith Cells 0 SEEN, Urine Bacteria 0 SEEN, Urine Mucus 0 SEEN 07/22/25 15:23: Troponin T Hi Sens 2 Hr 39 H 07/22/25 16:33: Troponin T Hi Sens 4Hr 38 H, Procalcitonin 0.68 H 07/23/25 00:08: POC Glucose 320 H 07/23/25 04:50: WBC 15.9 H, RBC 3.09 L, Hgb 9.4 L, Hct 29.4 L, MCV 95.1, MCH 30.4, MCHC 32.0, RDW Std Deviation 46.9 H, RDW Coeff of Tessa 13.5, Plt Count 254, MPV 9.6, Sodium 134, Potassium 5.0, Chloride 100, Carbon Dioxide 17.6 L, Anion Gap 16 H, BUN 58 H, Creatinine 2.18 H, Estim Creat Clear Calc 23.18 L, Est GFR (MDRD) Non-Af 22 L, BUN/Creatinine Ratio 26.7 H, Glucose 362 H, Calcium 8.7, Total Creatine Kinase 33, Triglycerides 78 Micro: Microbiology 07/22/25 12:30 Mucosa - Nose SARS-CoV-2, Influenza & RSV (PCR) - Final ABG Data ABG results: ABG 07/22/25 07/22/25 07/22/25 12:43 13:27 23:34 Specimen Type SARAH ART ART Sample Site L Radial R Brach L Radial pH 7.18 L* 7.31 L 7.41 Bicarbonate Actual 21.7 L 20.0 L 20.4 L Total CO2 24 21 21 Base Excess -7 L -6 L -4 L O2 Saturation 83 L 95 99 O2 % 45.0 40.0 50.0 ABG pCO2 58.7 H 39.6 32.4 L ABG pO2 60 L 82 151 H Ed Test Positive N/A Respiration Rate 16 O2 Delivery Device BiPAP BiPAP Adult Vent Vent Mode Not entered Not entered AC Tidal Volume 400.0 POC PEEP 10 Crit Call To/Read Back Yes Blood Gas Notified Whom DR. RAYMOND Clinical Comments 15 6 15 6 Radiography Diagnostic Testing: Radiology Impression Chest X-Ray 07/22/25 12:17 IMPRESSION: Findings in the mid and lower right lung suggesting possible pneumonia, with possible underlying fibrosis/scarring. Follow-up PA and lateral chest exam is recommended. Scarring versus small effusion the in the lateral left lung base. Tortuous calcific aortic atherosclerosis. Reading [facility] Chest [facility]A 07/22/25 14:28 IMPRESSION: Cardiomegaly and bilateral pleural effusions may be suggestive of CHF. Airspace opacities in the lower lungs may represent atelectasis or pneumonia. Dilated esophagus with ingested material consistent with gastroesophageal reflux. Follow-up with outpatient barium swallow can be helpful for further evaluation. No evidence of pulmonary embolism. Reading Location: [id number] Soft Tissue Neck CT 07/22/25 14:28 IMPRESSION: 1. No acute or active inflammatory process identified in the neck. 2. No neck mass or cervical lymphadenopathy. 3. Fluid and air-filled dilatation of the visualized esophagus, may reflect achalasia. 4. Mild-moderate biapical pulmonary emphysema. 8 mm nodule in the left upper lobe. Multiple nonspecific enlarged upper mediastinal lymph nodes; see separate CT thorax report. 5. Multiple small subcentimeter thyroid nodules/cysts. Reading Location: [id number] Chest X-Ray 07/22/25 22:05 IMPRESSION: As above. Reading Location: [facility] Chest X-Ray 07/22/25 23:10 IMPRESSION: Improperly positioned orogastric tube. Reading Location: [address] Physical Exam Const no apparent distress Constitutional Narrative: Elderly, white female, lying in bed, intubated and sedated, on ventilator, appears comfortable, does not look toxic HEENT head/scalp atraumatic HEENT Narrative: ET tube and OG are in place Head and Scalp: normocephalic Eyes Eyes Narrative: Pupils are pinpoint from fentanyl Neck supple Neck Narrative: Trachea is midline Resp no retractions, no use of accessory muscles and No clear to auscultation bilaterally Resp Narrative: Diminished with few crackles at bases bilaterally, currently on a ventilator Auscultation: crackles; Negative for rhonchi or wheezes Cardio regular rate, regular rhythm, S1 normal heart sound, S2 normal heart sound, no murmurs, no rub, no gallops and no clicks GI normal to inspection, nondistended, normoactive bowel sounds, soft to palpation and non-tender Extremity no clubbing, cyanosis or edema Extremity Narrative: 2+ pedal and radial pulses Neuro Neuro Narrative: Patient is intubated and sedated Psych Psych Narrative: Unable to assess as patient is intubated and sedated, currently calm on sedation Assessment & Plan Assessment/Plan (1) Acute on chronic respiratory failure with hypoxia and hypercapnia: (2) Dysphagia: (3) Esophageal dysmotility: PLAN: Plan Acute on chronic hypoxic and hypercapnic respiratory failure-multifactorial - Initially admitted to PCU on BiPAP but ABG showed significant respiratory distress and she required intubation - Procalcitonin is slightly elevated so there is concern for aspiration pneumonia in conjunction with findings on CT of the chest - Currently intubated sedated with intubation on 07/22/2025 - Also seems to have some pulmonary edema with an elevated BNP at 5405 - Patient oxygen dependent due to COPD at baseline on 4 L - Continue scheduled DuoNebs - Continue IV steroids - Continue Zosyn - Continue Lasix - Echocardiogram is pending - Sputum, blood, and urine cultures are pending - Respiratory viral panel and COVID/flu/RSV are all negative - Pulm critical care is following Dysphagia/concern for achalasia/GERD - GI consulted as patient was noted to have air-fluid levels in the esophagus on the CT of her chest with subsequent suspected aspiration pneumonia as part of her respiratory failure etiology - Will need EGD - Continue PPI as ordered - Speech therapy to evaluate once extubated Hyperkalemia - Resolved Elevated serum creatinine on CKD stage IIIb - Serum creatinine on presentation was 2.06 and baseline appears to be between 1.7-1.9 recently - Serum creatinine 2.04 on admission and 2.18 today - Continue to monitor - Avoid nephrotoxins as able - Continue to monitor closely Anion gap metabolic acidosis - Was normal on presentation - Patient not on Jardiance or Farxiga - If patient with acidosis on ABG will assess lactate and beta hydroxybutyrate as blood sugar is elevated however highly doubt DKA - If ABG is unremarkable will obtain repeat lab in a.m. without further workup - question if this is a spurious lab finding Acute on chronic debility with recent mechanical fall - Patient lives alone at baseline but daughter lives close - Patient has had issues with movement since her fall 2 weeks ago - PT/OT is consulted - Case management/social work consultation for assistance with discharge planning Chronic normocytic anemia -Restart home iron supplementation -Hemoglobin remained stable and in her baseline of 9-10 -Continue to monitor Chronic hypoxic respiratory failure secondary to COPD -Baseline dependence on 4 L continuous -Hold home inhalers -Continue budesonide therapy -As needed albuterol -I-S -Continue Singulair Allergic rhinitis -Continue home Singulair History of stroke/TIA -Continue aspirin Hyperlipidemia -Continue statin Hypertension - Continue home antihypertensives - As needed hydralazine DM-2 - On orals at baseline-hold - A1c is 6.4 - Blood sugars markedly elevated due to steroid use so we will add basal insulin 15 units - continue sliding scale but increase to high-dose sliding scale - Accu-Cheks and SSI ordered every 6 for now Depression/anxiety - Continue home medications History of tobacco abuse - Remote - Continue ongoing cessation DVT prophylaxis - Continue subcu heparin CODE STATUS - Full Code Charges/Coding Visit Charges Inpatient E&M: 80182 Subs Hosp L2
[2025-07-23] MEDS: Chlorhexidine 15 ML PO ×2 (08:27→21:38)
--- NOTE | 2025-07-23 09:45 | CASEMGMT ---
MIRZA HODGES Assessment: Face to Face with pt for initial transition planning/care coordination assessment. MIRZA HODGES introduced self and role at [facility], pt on vent but shook her head yes. Pt dtr Abi who is POA present in room. Pt aware that MIRZA HODGES will ask Abi questions for assessment. Care providers, pharmacy, and demographics verified/updated. Admitting Dx: acute respiratory failure to COPD/CHF exac Strata Score: 2 PCP:Adam Specialists:noman Jay Pharmacy: [facility] Insurance: [facility] Prescription Benefit: yes LNOK: Abi Robb, dtr; Barbie Townsend, dtr Living Arrangements: Pt lives alone in a two story home with FFSU. Pt has a ramp to enter home. carmel Alex has been staying with pt for the last 2 wks since pt fell. Pt typically is I in ADL/IADLs prior to fall. Abi and nephew obtain pt groceries for her. Pt does own meals and laundry. Transportation: Pt has driven for a couple of years. Abi transports pt. DME:oxygen through [facility] with portability, BSC, BGM with sufficient strips and lancets, shower chair, canes, walker, w/c HHC/SNF: Pt has had HHC in the past but dtr cannot remember name of agency. Pt has been to [place]. Pt dtr states the goal is for pt to return home. She states she will kick my butt if she goes to a senior care. She states she has portability for pt for oxygen that can be brought in upon dc. Dtr states pt fell approx 2 wks ago trying to get her oxygen tanks sorted and put away after delivery. Pt tripped over her O2 tubing. Abi very tearful through assessment. She states I hope we can pull through. Provided box of tissues for her and asked if she wanted to speak to SW corporate ethics officer CM to let the nurse know. Pt states no further concerns/needs. CM to follow. Advised pt to ask CM if any further questions/concerns/needs arise, voices understanding. Pt Dtr Goal:Home Plan: TBD pending extubation, therapy evals and course of hospitalization. O2 needs verified. Radha BLUE CM
[2025-07-23] MEDS: Pantoprazole Sodium 40 MG in 0.9% Normal Saline (100mL MB+) 100 ML 300 MG IV (11:29)
[2025-07-23 12:43] LABS: Base Excess -4 mmol/L (-2 to +2); FI02 30.0; PEEP 5; PO2 84 mmHG (75-100); RR 16; SITE L Radial; SO2 96 % (95-99)
[2025-07-23] MEDS: Insulin Glargine-YFGN 100 UNIT/ML Pen 15 UNIT SC (12:54)
--- NOTE | 2025-07-23 13:27 | PCM.PN.TICU ---
Objective Data Objective Data Vital Signs: Vital Signs Last response Temperature 35.8 C L 07/23/25 12:00 Temperature Source Core 07/23/25 12:00 Pulse Rate 70 07/23/25 12:29 Pulse Strength Normal (2+) 07/23/25 10:00 Respiratory Rate 16 07/23/25 12:29 Respiratory Effort Mechanically Ventilated 07/23/25 08:00 Respiratory Depth Normal 07/23/25 08:00 Respiratory Pattern Normal 07/23/25 12:29 Blood Pressure 118/52 L 07/23/25 12:00 Blood Pressure Mean 74 07/23/25 12:00 Blood Pressure Source Monitor 07/23/25 12:00 Blood Pressure Position Semi-Fowlers 07/23/25 12:00 Blood Pressure Location Right Arm 07/23/25 12:00 Pulse Ox 96 07/23/25 12:29 Oxygen Delivery Method Mechanical Ventilator 07/23/25 12:00 Oxygen Flow Rate (L/min) 4 07/22/25 21:16 Fraction of Inspired Oxygen (FIO2) 30 07/23/25 12:00 I&O: I&O Last 24 Hours 07/22/25 07/23/25 07/23/25 23:59 11:59 23:59 Intake Total 419.85 / 426.08 397.84 / 415.24 17.4 / 415.24 Output Total 925 / 925 Balance 419.85 / -148.92 -527.16 / -509.76 17.4 / -509.76 I&O: Total Stay 07/22/25 12:11 thru 07/23/25 12:00 Intake Total 835.09 Output Total 925 Balance -89.91 Current Meds Ordered / Administered: Current meds ordered / Administered Generic Name Dose Route Start Last Admin Trade Name Freq PRN Reason Stop Dose Admin Acetaminophen 650 mg 07/22/25 18:32 Acetaminophen 325 Mg Tablet PO Q6H PRN PRN Pain 1-10 Or Fever>100.7 Albuterol/Ipratropium 3 ml 07/22/25 18:32 07/23/25 12:29 Ipratropium/Albuterol Sulfate 3 Ml Ampul.Neb INHALATION 3 ml Q6HWA.RT REG Administration Aripiprazole 10 mg 07/23/25 10:00 07/23/25 10:19 Aripiprazole 10 Mg Tablet PO Not Given DAILY [facility] Protocol Aspirin 81 mg 07/23/25 08:00 07/23/25 08:21 Aspirin 81 Mg Tab.Chew PO Not Given DAILY@0800 [facility] Atorvastatin Calcium 10 mg 07/22/25 22:00 07/23/25 00:12 Atorvastatin Calcium 10 Mg Tablet PO Not Given QHS [facility] Bisoprolol Fumarate 5 mg 07/23/25 17:00 Bisoprolol Fumarate 5 Mg Tablet PO DINNER [facility] Bupropion HCl 150 mg 07/22/25 22:00 07/23/25 10:22 Bupropion (Sr) 150 Mg Tablet.Sa PO Not Given BID [facility] Chlorhexidine Gluconate 15 ml 07/22/25 22:00 07/23/25 08:27 Chlorhexidine 15 Ml PO 15 ml BID [facility] Administration Cholecalciferol 125 mcg 07/24/25 10:00 Cholecalciferol (Vit D3) 125 Mcg Capsule (5,000 Units) PO DAILY [facility] Cyanocobalamin 1,000 mcg 07/23/25 10:00 07/23/25 10:22 Cyanocobalamin 500 Mcg Tablet PO Not Given DAILY [facility] Fentanyl Citrate 50 mcg 07/22/25 21:59 Fentanyl 100 Mcg/2 Ml Ampul IV Q2H PRN PRN Pain >/= 4/10 or CPOT>/= 3/8 Ferrous Sulfate 325 mg 07/23/25 12:00 07/23/25 11:45 Ferrous Sulfate 325 Mg Tablet PO Not Given 1200,1700 [facility] Furosemide 40 mg 07/22/25 18:32 07/23/25 10:23 Furosemide 40 Mg/4 Ml Vial IV 40 mg BIDLX [facility] Administration Protocol Glucagon 1 mg 07/22/25 21:04 Glucagon 1 Mg/Ml Syringe IM X1 PRN Hypoglycemia Protocol Heparin Sodium (Porcine) 5,000 unit 07/22/25 22:00 07/23/25 06:12 Heparin Injection (Vial) 5,000 Unit/Ml Vial SC 5,000 unit Q8 [facility] Administration Hydralazine HCl 10 mg 07/22/25 21:08 Hydralazine 20 Mg/Ml Vial IV Q4H PRN PRN SBP GREATER THAN 170 Protocol Sodium Chloride 250 mls @ 15 mls/hr 07/22/25 18:33 IV .[id number] PRN Saline Flush Sodium Chloride 250 mls @ 15 mls/hr 07/22/25 18:33 IV .[id number] PRN Additional IVPB Infusion Piperacillin Sod/Tazobactam 50 mls @ 12.5 mls/hr 07/22/25 22:00 07/23/25 10:28 Sod 3.375 gm/ Sodium Chloride IV Infused Q8 REG Infusion Dextrose 250 mls @ 0 mls/hr 07/22/25 21:04 Dextrose 10%-Water IV .Q0M PRN HYPOGLYCEMIA Protocol As Directed Pantoprazole Sodium 40 mg/ 100 mls @ 300 mls/hr 07/22/25 21:05 07/23/25 11:51 Sodium Chloride IV Infused Q24 REG Infusion Propofol 1,000 mg in 100 mls @ 4.97 mls/hr 07/22/25 22:00 07/23/25 12:00 Diprivan CONT INF 25 mcg/kg/min .Q12H REG 12.4 mls/hr Protocol Titration 10 MCG/KG/MIN Fentanyl 100 mls @ 2.5 mls/hr 07/22/25 22:55 07/23/25 12:00 CONT INF 50 mcg/hr UD REG 5 mls/hr Protocol Titration 25 MCG/HR Influenza Virus Vaccine 180 mcg 07/25/25 10:00 Flu Vaccine High Dose 25-26(65yr Up) 180 Mcg/0.5 Ml Syringe IM 07/25/25 10:01 .ONCE ONE Insulin Glargine 15 unit 07/23/25 11:15 07/23/25 12:54 Insulin Glargine-Yfgn 100 Unit/Ml Pen SC 15 unit DAILY REG Administration Insulin Human Lispro 0 unit 07/23/25 12:00 07/23/25 12:21 Insulin Lispro 100 Unit/Ml Insuln.Pen SC Not Given Q6 REG Protocol Losartan Potassium 50 mg 07/23/25 10:00 07/23/25 10:20 Losartan Potassium 50 Mg Tablet PO Not Given DAILY [facility] Protocol Methylprednisolone Sodium Succinate 40 mg 07/23/25 06:00 07/23/25 06:13 Methylprednisolone Sod Succ 40 Mg/Ml Vial IV 40 mg Q8 REG Administration Montelukast Sodium 10 mg 07/23/25 10:00 07/23/25 10:21 Montelukast 10 Mg Tablet PO Not Given DAILY REG Nystatin 1 applic 07/22/25 22:00 07/23/25 10:28 Nystatin Powder 15gm Bottle TOPICAL 1 applic BID [facility] Administration Protocol Ondansetron HCl 4 mg 07/22/25 18:32 Ondansetron 4 Mg/2 Ml Vial IV Q8H PRN PRN NAUSEA/VOMITING Sodium Chloride 10 - 40 ml 07/22/25 18:33 07/23/25 00:20 0.9% Saline Lock 10 Ml Syringe IV 30 ml UD PRN Administration SALINE FLUSH Trazodone HCl 150 mg 07/22/25 21:08 Trazodone 50 Mg Tablet PO QHS PRN sleep Venlafaxine HCl 150 mg 07/23/25 10:00 07/23/25 10:21 Venlafaxine Xr 150 Mg Capsule PO Not Given DAILY [facility] Lab / Micro Data 07/23/25 04:50 07/23/25 04:50 Labs: Laboratory Results - last 24 hr 07/22/25 12:32: Hemoglobin A1c 6.4 H 07/22/25 13:09: Urine Color Yellow, Urine Clarity Clear, Urine pH 6.0, Ur Specific [place] 1.015, Urine Protein 100 H, Urine Glucose (UA) Normal, Urine Ketones Negative, Urine Occult Blood 10 H, Urine Nitrite Negative, Urine Bilirubin Negative, Urine Urobilinogen 1 H, Ur Leukocyte Esterase 25 H, Urine RBC 0 SEEN, Urine WBC 0 SEEN, Ur Squamous Epith Cells 0 SEEN, Urine Bacteria 0 SEEN, Urine Mucus 0 SEEN 07/22/25 15:23: Troponin T Hi Sens 2 Hr 39 H 07/22/25 16:33: Troponin T Hi Sens 4Hr 38 H, Procalcitonin 0.68 H 07/23/25 00:08: POC Glucose 320 H 07/23/25 04:50: WBC 15.9 H, RBC 3.09 L, Hgb 9.4 L, Hct 29.4 L, MCV 95.1, MCH 30.4, MCHC 32.0, RDW Std Deviation 46.9 H, RDW Coeff of Tessa 13.5, Plt Count 254, MPV 9.6, Sodium 134, Potassium 5.0, Chloride 100, Carbon Dioxide 17.6 L, Anion Gap 16 H, BUN 58 H, Creatinine 2.18 H, Estim Creat Clear Calc 23.18 L, Est GFR (MDRD) Non-Af 22 L, BUN/Creatinine Ratio 26.7 H, Glucose 362 H, Calcium 8.7, Total Creatine Kinase 33, Triglycerides 78 07/23/25 08:24: POC Glucose 313 H 07/23/25 11:27: POC Glucose 246 H Micro: Microbiology 07/22/25 20:49 Mucosa - Nasopharyngeal Respiratory Panel (PCR) - Final 07/22/25 12:30 Mucosa - Nose SARS-CoV-2, Influenza & RSV (PCR) - Final ABG Data ABG results: ABG 07/22/25 07/22/25 07/22/25 12:43 13:27 23:34 Specimen Type SARAH ART ART Sample Site R Brach L Radial pH 7.31 L 7.41 Bicarbonate Actual 20.0 L 20.4 L Total CO2 21 21 Base Excess -6 L -4 L O2 Saturation 95 99 O2 % 40.0 50.0 ABG pCO2 39.6 32.4 L ABG pO2 82 151 H Ed Test N/A Respiration Rate 16 O2 Delivery Device BiPAP Adult Vent Vent Mode Not entered AC Tidal Volume 400.0 POC PEEP 10 Blood Gas Notified Whom DR. RAYMOND Clinical Comments 15 6 07/23/25 12:41 Specimen Type ART Sample Site L Radial pH 7.36 Bicarbonate Actual 22.0 Total CO2 23 Base Excess -4 L O2 Saturation 96 O2 % 30.0 ABG pCO2 39.2 ABG pO2 84 Ed Test Respiration Rate 16 O2 Delivery Device Adult Vent Vent Mode AC Tidal Volume 400.0 POC PEEP 5 Blood Gas Notified Whom Clinical Comments Imaging Radiology Impression Chest CTA 07/22/25 14:28 IMPRESSION: Cardiomegaly and bilateral pleural effusions may be suggestive of CHF. Airspace opacities in the lower lungs may represent atelectasis or pneumonia. Dilated esophagus with ingested material consistent with gastroesophageal reflux. Follow-up with outpatient barium swallow can be helpful for further evaluation. No evidence of pulmonary embolism. Reading Location: [facility] Soft Tissue Neck CT 07/22/25 14:28 IMPRESSION: 1. No acute or active inflammatory process identified in the neck. 2. No neck mass or cervical lymphadenopathy. 3. Fluid and air-filled dilatation of the visualized esophagus, may reflect achalasia. 4. Mild-moderate biapical pulmonary emphysema. 8 mm nodule in the left upper lobe. Multiple nonspecific enlarged upper mediastinal lymph nodes; see separate CT thorax report. 5. Multiple small subcentimeter thyroid nodules/cysts. Reading Location: [id number] Echocardiogram 07/22/25 17:21 Interpretation Summary Technically difficult study. Mild concentric left ventricular hypertrophy. The left ventricular ejection fraction is 70 %. Stage 1 diastolic dysfunction. The left atrium is moderately enlarged. Mild mitral annular calcification. Ordering Physician: Antoni Argueta Performed By: Philippe Dias RCS Chest X-Ray 07/22/25 22:05 IMPRESSION: As above. Reading Location: [facility] Chest X-Ray 07/22/25 23:10 IMPRESSION: Improperly positioned orogastric tube. Reading Location: [address] Assessment and Plan . Assessment and plan: Patient seen and examined Chart and data reviewed She is sedated - NAD HD stable Modest MV requirement Imaging reviewed Difficulty passing OGT into stomach Will plan to leave her sedated w/ MV support in order to facilitate easy EGD whenever planned The entirety of this encounter was done via Telemedicine
[2025-07-23] MEDS: fentaNYL drip 100 ML 5 MCG CONT INF (14:11)
[2025-07-24] VITALS (38 sets, daily range): BP systolic 101–125; BP diastolic 46–98; PULSE 81–150; RESP 16–18; TEMP 36.2–36.5; O2SAT 94–98; BMI 29.6
[2025-07-24] MEDS: Propofol 10MG/Ml 1,000 MG/100 ML Bottle 12.4 MG CONT INF ×4 (03:00→22:31)
[2025-07-24 03:59] LABS: Hematocrit 25.1 % (37-47); Hemoglobin 8.2 g/dL (12.0-15.0); Immature Granulocytes Count 0.160 X10^3/uL (0.0-0.0); Mean Corp Hgb Conc 32.7 g/dL (32-36); Mean Corpuscular Volume 93.0 fL (81-99); Mean Platelet Vol. 9.7 fl (6.2-12.0); NRBC Flagged by Analyzer 0 % (0-5); POSITIVE DIFFERENTIAL YES; Platelet Count 254 K/mm3 (150-450); RBC Distribution Width CV 13.4 % (11.6-14.6); RBC Distribution Width SD 45.9 fl (35.1-43.9); Red Blood Count 2.70 M/mm3 (4.2-5.4); White Blood Count 15.2 K/mm3 (4.4-11.0)
[2025-07-24 04:26] LABS: AST(SGOT) 56 U/L (<=31); Alanine Aminotransfer ALT/SGPT 39 U/L (<=34); Albumin, Serum 2.7 g/dL (3.4-4.8); Alkaline Phosphatase 101 U/L (35-104); Anion Gap 16 (5-15); BUN 70 mg/dL (4-19); BUN/Creat Ratio 27.3 RATIO (10-20); Calcium,Total 8.5 mg/dL (7.6-11.0); Carbon Dioxide 17.5 mmol/L (21.0-32.0); Chloride 104 mmol/L (98-108); Estimated Creatinine Clearance 19.66 ml/min (50-250); Globulin 3.5 g/dL (2.2-4.2); Glucose 241 mg/dL (70-99); Magnesium 1.9 mg/dL (1.5-2.2); Potassium 4.4 mmol/L (3.3-5.1)
[2025-07-24] MEDS: Piperacil/Tazobactam 3.375 GM in 0.9% Normal Saline (50mL MB+) 50 ML IV ×3 (05:55→22:27)
[2025-07-24] MEDS: Heparin Injection (Vial) 5,000 UNIT/ML VIAL 5000 UNIT SC (05:55)
--- NOTE | 2025-07-24 06:34 | EKG12_ITS ---
Test Reason : Blood Pressure : */* mmHG Vent. Rate : 143 BPM Atrial Rate : * BPM P-R Int : * ms QRS Dur : 88 ms QT Int : 270 ms P-R-T Axes : * 63 46 degrees QTcB Int : 416 ms Critical Test Result: High HR Atrial fibrillation with rapid ventricular response Abnormal ECG No previous ECGs available Confirmed by EDDIE MILLER, ANA ([id number]), manager editorial CHICO MARRUFO ([id number]) on 07/26/2025 7:58:29 AM Referred By: Confirmed By: ANA MORGAN MD
--- NOTE | 2025-07-24 06:55 | PN.HOSP_ITS ---
Reason for Visit Chief Complaint: Worsening shortness of breath Subjective Subjective No specific issues overnight. This morning went into rapid heart rate and EKG shows A-fib with RVR. This is a new diagnosis. Will go ahead and start anticoagulation. Amiodarone drip started Objective Data Objective Data Vital Signs: Vital Signs Temp Pulse Resp BP Pulse Ox O2 Del Method O2 Flow Rate 97.2 F L 84 16 122/56 H 96 Mechanical Ventilator 4 07/24/25 04:00 07/24/25 06:00 07/24/25 06:00 07/24/25 06:00 07/24/25 06:00 07/24/25 06:00 07/22/25 21:16 FiO2 30 07/24/25 06:00 Oxygen Flow Rate (L/min) 4 Oxygen Delivery Method Mechanical Ventilator Weight: 85.8 kg Body Mass Index (BMI) 29.6 Intake & Output: Intake and Output for Last 24 Hours 07/22/25 07/23/25 07/24/25 23:59 23:59 23:59 Intake Total 419.85 / 426.08 656.64 / 674.04 171.8 / 171.8 Output Total 2049 / 2049 350 / 350 Balance 419.85 / -148.92 -1393.36 / -1375.96 -178.2 / -178.2 Lab / Micro Data 07/24/25 11:35 07/24/25 03:44 Labs: Laboratory Results - last 24 hr 07/23/25 08:24: POC Glucose 313 H 07/23/25 11:27: POC Glucose 246 H 07/23/25 18:19: POC Glucose 276 H 07/23/25 23:54: POC Glucose 189 H 07/24/25 03:44: WBC 15.2 H, RBC 2.70 L, Hgb 8.2 L, Hct 25.1 L, MCV 93.0, MCH 30.4, MCHC 32.7, RDW Std Deviation 45.9 H, RDW Coeff of Tessa 13.4, Plt Count 254, MPV 9.7, Immature Gran % (Auto) 1.100 H, Neut % (Auto) 94.3 H, Lymph % (Auto) 2.0 L, Ness % (Auto) 2.5, Eos % (Auto) 0.0, Baso % (Auto) 0.1, Absolute Neuts (auto) 14.3 H, Absolute Lymphs (auto) 0.30 L, Nucleated RBC % 0, Sodium 137, Potassium 4.4, Chloride 104, Carbon Dioxide 17.5 L, Anion Gap 16 H, BUN 70 H, C reatinine 2.57 H, Estim Creat Clear Calc 19.66 L, Est GFR (MDRD) Non-Af 18 L, B UN/Creatinine Ratio 27.3 H, Glucose 241 H, Calcium 8.5, Phosphorus 5.0 H, Magnesium 1.9, Total Bilirubin 0.20, AST 56 H, ALT 39 H, Alkaline Phosphatase 101, Total Protein 6.2, Albumin 2.7 L, Globulin 3.5, Albumin/Globulin Ratio 0.8 L 07/24/25 05:53: POC Glucose 194 H Micro: Microbiology 07/22/25 20:49 Mucosa - Nasopharyngeal Respiratory Panel (PCR) - Final 07/22/25 12:30 Mucosa - Nose SARS-CoV-2, Influenza & RSV (PCR) - Final ABG Data ABG results: ABG 07/23/25 12:41 Specimen Type ART Sample Site L Radial pH 7.36 Bicarbonate Actual 22.0 Total CO2 23 Base Excess -4 L O2 Saturation 96 O2 % 30.0 ABG pCO2 39.2 ABG pO2 84 Respiration Rate 16 O2 Delivery Device Adult Vent Vent Mode AC Tidal Volume 400.0 POC PEEP 5 Radiography Diagnostic Testing: Radiology Impression Echocardiogram 07/22/25 17:21 Interpretation Summary Technically difficult study. Mild concentric left ventricular hypertrophy. The left ventricular ejection fraction is 70 %. Stage 1 diastolic dysfunction. The left atrium is moderately enlarged. Mild mitral annular calcification. Ordering Physician: Antoni Argueta Performed By: Philippe Dias RCS Renal Ultrasound 07/23/25 05:50 IMPRESSION: 1. Bilateral renal atrophy. No hydronephrosis. Reading Location: [facility] Physical Exam Const no apparent distress and average body habitus Constitutional Narrative: Elderly, white female, lying in bed, intubated and sedated, on ventilator, appears comfortable, does not look toxic HEENT normocephalic, head/scalp atraumatic and moist oral mucous membranes HEENT Narrative: ET tube in place Eyes PERRL Eyes Narrative: Pupils are reactive to light, conjunctiva is mildly pale bilaterally, no scleral icterus Neck supple Neck Narrative: Trachea is midline, patient with ecchymosis under the right 10th mid chin area from unclear etiology as this was present on admission Resp normal respiratory effort, no retractions, no use of accessory muscles and clear to auscultation bilaterally Resp Narrative: Diminished diffusely but clear at this time Auscultation: Negative for crackles, rhonchi or wheezes Cardio S1 normal heart sound, S2 normal heart sound, no murmurs, no rub, no gallops and no clicks Cardio Narrative: Irregularly irregular rhythm, tachycardic GI normal to inspection, nondistended, normoactive bowel sounds, soft to palpation and non-tender Extremity no clubbing, cyanosis or edema Extremity Narrative: 2+ pedal and radial pulses Skin Skin Narrative: Ecchymosis as noted above, skin slightly pale otherwise, multiple excoriations on bilateral lower extremities with no signs of infection with most of them being scabbed Neuro Neuro Narrative: Patient is intubated and sedated Psych Psych Narrative: Unable to assess as patient is intubated and sedated, currently calm on sedation Assessment & Plan Assessment/Plan (1) Acute on chronic respiratory failure with hypoxia and hypercapnia: (2) Dysphagia: (3) Esophageal dysmotility: (4) Paroxysmal atrial fibrillation with RVR: PLAN: Plan Acute on chronic hypoxic and hypercapnic respiratory failure-multifactorial - Initially admitted to PCU on BiPAP but ABG showed significant respiratory distress and she required intubation - Procalcitonin is slightly elevated so there is concern for aspiration pneumonia in conjunction with findings on CT of the chest - Currently intubated sedated with intubation on 07/22/2025 - Also seems to have some pulmonary edema with an elevated BNP at 5405 - Patient oxygen dependent due to COPD at baseline on 4 L - Continue scheduled DuoNebs - Continue IV steroids - Continue Zosyn - Continue Lasix - Echocardiogram is pending - Sputum, blood, and urine cultures are pending - Respiratory viral panel and COVID/flu/RSV are all negative - Pulm critical care is following Dysphagia/concern for achalasia/GERD - GI consulted as patient was noted to have air-fluid levels in the esophagus on the CT of her chest with subsequent suspected aspiration pneumonia as part of her respiratory failure etiology - Will need EGD - Continue PPI as ordered - Speech therapy to evaluate once extubated New onset A-fib with RVR - Heart rates in the 140s to 160s - Start amiodarone bolus and 150 mg x 1 dose and then drip - Start heparin drip for now with procedures planned for tomorrow and patient ultimately will need to be transition to [facility] -Hemoglobin is stable but will monitor - Echocardiogram already done yesterday and showed an EF of 70% with stage I diastolic dysfunction and moderate enlargement of the left atrium with no significant valvular abnormalities. - Check a.m. TSH Elevated serum creatinine on CKD stage IIIb - Serum creatinine on presentation was 2.06 and baseline appears to be between 1.7-1.9 recently - Serum creatinine 2.04 on admission and has trended up with diuretics so we will discontinue IV Lasix and monitor - Renal ultrasound done and no significant abnormalities noted at this time - Continue to monitor - Avoid nephrotoxins as able - Continue to monitor closely - No need for nephrology at this time but will continue to monitor kidney function - Repeat lab in a.m. Anion gap metabolic acidosis - Remains present - ABG obtained and patient was not acidotic - Monitor clinically at this time - question if this is a spurious lab finding--> bicarb on ABG was 22 Acute on chronic debility with recent mechanical fall - Patient lives alone at baseline but daughter lives close - Patient has had issues with movement since her fall 2 weeks ago - PT/OT is consulted and will work with patient more when she is extubated - Case management/social work consultation for assistance with discharge planning Chronic normocytic anemia -Restart home iron supplementation -Hemoglobin remained stable and in her baseline of 9-10 -Has dropped slightly but shows stability so we will go ahead and start heparin drip for now but need to watch closely -Repeat CBC in a.m. Chronic hypoxic respiratory failure secondary to COPD -Baseline dependence on 4 L continuous -Hold home inhalers -Continue budesonide therapy -As needed albuterol -I-S -Continue Singulair Allergic rhinitis -Continue home Singulair History of stroke/TIA - Discontinue aspirin with initiation of heparin and then transition to Eliquis Hyperlipidemia -Continue statin Hypertension - Continue home antihypertensives - As needed hydralazine DM-2 - On orals at baseline-hold - A1c is 6.4 - Blood sugars remain elevated despite initiation of basal insulin yesterday so will increase to Lantus 25 units - Continue SSI - Accu-Cheks and SSI ordered every 6 for now Depression/anxiety - Continue home medications History of tobacco abuse - Remote - Continue ongoing cessation DVT prophylaxis - Continue subcu heparin CODE STATUS - Full Code Charges/Coding Visit Charges Inpatient E&M: 44246 Subs Hosp L3
[2025-07-24] MEDS: Amiodarone 150 MG in Dextrose 5%-Water (100mL Bag) 100 ML 600 MG IV BOLUS (07:50)
[2025-07-24] MEDS: Amiodarone 360 MG in Dextrose 5% Viaflo Bag 192.8 ML 33.3 MG CONT INF (08:51)
[2025-07-24] MEDS: Chlorhexidine 15 ML PO ×2 (08:56→22:27)
--- NOTE | 2025-07-24 10:33 | PN.CC_ITS ---
Objective Data Objective Data Vital Signs: Vital Signs Last response 3 Temperature 36.4 C L 07/24/25 08:00 Temperature Source Core 07/24/25 08:00 Pulse Rate 133 H 07/24/25 09:04 Pulse Strength Normal (2+) 07/23/25 22:00 Respiratory Rate 16 07/24/25 09:04 Respiratory Effort Mechanically Ventilated 07/24/25 08:00 Respiratory Depth Normal 07/24/25 08:00 Respiratory Pattern Normal 07/24/25 08:00 Blood Pressure 114/71 07/24/25 09:00 Blood Pressure Mean 85 07/24/25 09:00 Blood Pressure Source Monitor 07/24/25 09:00 Blood Pressure Position Semi-Fowlers 07/24/25 09:00 Blood Pressure Location Right Arm 07/24/25 09:00 Pulse Ox 95 07/24/25 09:04 Oxygen Delivery Method Mechanical Ventilator 07/24/25 09:00 Oxygen Flow Rate (L/min) 4 07/22/25 21:16 Fraction of Inspired Oxygen (FIO2) 30 07/24/25 09:00 I&O: I&O Last 24 Hours 3 07/23/25 07/23/25 07/24/25 11:59 23:59 11:59 Intake Total 397.84 / 674.04 258.80 / 674.04 327.0 / 327.0 Output Total 920 1125 / 2050 350 / 350 Balance -527.16 / -1375.96 -866.20 / -1375.96 -23.0 / -23.0 I&O: Total Stay 3 07/22/25 12:11 thru 07/24/25 09:00 Intake Total 1403.49 Output Total 2400 Balance -996.51 Current Meds Ordered / Administered: Current meds ordered / Administered 3 Generic Name Dose Route Start Last Admin Trade Name Freq PRN Reason Stop Dose Admin Acetaminophen 650 mg 07/22/25 18:32 Acetaminophen 325 Mg Tablet PO Q6H PRN PRN Pain 1-10 Or Fever>100.7 Albuterol/Ipratropium 3 ml 07/22/25 18:32 07/24/25 07:31 Ipratropium/Albuterol Sulfate 3 Ml Ampul.Neb INHALATION 3 ml Q6HWA.RT REG Administration Aripiprazole 10 mg 07/23/25 10:00 07/24/25 08:56 Aripiprazole 10 Mg Tablet PO Not Given DAILY [facility] Protocol Aspirin 81 mg 07/23/25 08:00 07/24/25 07:52 Aspirin 81 Mg Tab.Chew PO Not Given DAILY@0800 [facility] Atorvastatin Calcium 10 mg 07/22/25 22:00 07/23/25 21:42 Atorvastatin Calcium 10 Mg Tablet PO Not Given QHS [facility] Bisoprolol Fumarate 5 mg 07/23/25 17:00 07/23/25 16:16 Bisoprolol Fumarate 5 Mg Tablet PO Not Given DINNER [facility] Bupropion HCl 150 mg 07/22/25 22:00 07/24/25 08:58 Bupropion (Sr) 150 Mg Tablet.Sa PO Not Given BID [facility] Chlorhexidine Gluconate 15 ml 07/22/25 22:00 07/24/25 08:56 Chlorhexidine 15 Ml PO 15 ml BID [facility] Administration Cholecalciferol 125 mcg 07/24/25 10:00 07/24/25 08:57 Cholecalciferol (Vit D3) 125 Mcg Capsule (5,000 Units) PO Not Given DAILY [facility] Cyanocobalamin 1,000 mcg 07/23/25 10:00 07/24/25 08:57 Cyanocobalamin 500 Mcg Tablet PO Not Given DAILY [facility] Fentanyl Citrate 50 mcg 07/22/25 21:59 Fentanyl 100 Mcg/2 Ml Ampul IV Q2H PRN PRN Pain >/= 4/10 or CPOT>/= 3/8 Ferrous Sulfate 325 mg 07/23/25 12:00 07/23/25 16:16 Ferrous Sulfate 325 Mg Tablet PO Not Given 1200,1700 [facility] Glucagon 1 mg 07/22/25 21:04 Glucagon 1 Mg/Ml Syringe IM X1 PRN Hypoglycemia Protocol Heparin Sodium (Porcine) 5,000 unit 07/22/25 22:00 07/24/25 05:55 Heparin Injection (Vial) 5,000 Unit/Ml Vial SC 5,000 unit Q8 [facility] Administration Hydralazine HCl 10 mg 07/22/25 21:08 Hydralazine 20 Mg/Ml Vial IV Q4H PRN PRN SBP GREATER THAN 170 Protocol Sodium Chloride 250 mls @ 15 mls/hr 07/22/25 18:33 IV .[id number] PRN Saline Flush Sodium Chloride 250 mls @ 15 mls/hr 07/22/25 18:33 IV .[id number] PRN Additional IVPB Infusion Piperacillin Sod/Tazobactam 50 mls @ 12.5 mls/hr 07/22/25 22:00 07/24/25 05:55 Sod 3.375 gm/ Sodium Chloride IV 12.5 mls/hr Q8 REG Administration Dextrose 250 mls @ 0 mls/hr 07/22/25 21:04 Dextrose 10%-Water IV .Q0M PRN HYPOGLYCEMIA Protocol As Directed Pantoprazole Sodium 40 mg/ 100 mls @ 300 mls/hr 07/22/25 21:05 07/23/25 11:51 Sodium Chloride IV Infused Q24 REG Infusion Propofol 1,000 mg in 100 mls @ 4.97 mls/hr 07/22/25 22:00 07/24/25 09:00 Diprivan CONT INF 25 mcg/kg/min .Q12H REG 12.4 mls/hr Protocol Titration 10 MCG/KG/MIN Fentanyl 100 mls @ 2.5 mls/hr 07/22/25 22:55 07/24/25 09:00 CONT INF 50 mcg/hr UD REG 5 mls/hr Protocol Titration 25 MCG/HR Amiodarone HCl 360 mg/ 200 mls @ 33.333 mls/hr 07/24/25 07:30 07/24/25 08:51 Dextrose CONT INF 07/24/25 13:29 1 mg/min .Q6H REG 33.3 mls/hr 1 MG/MIN Administration Amiodarone HCl 360 mg/ 200 mls @ 16.667 mls/hr 07/24/25 13:30 Dextrose CONT INF 07/25/25 07:29 .Q12H REG 0.5 MG/MIN Influenza Virus Vaccine 180 mcg 07/25/25 10:00 Flu Vaccine High Dose 25-26(65yr Up) 180 Mcg/0.5 Ml Syringe IM 07/25/25 10:01 .ONCE ONE Insulin Glargine 25 unit 07/24/25 10:00 Insulin Glargine-Yfgn 100 Unit/Ml Pen SC DAILY REG Insulin Human Lispro 0 unit 07/23/25 12:00 07/24/25 05:54 Insulin Lispro 100 Unit/Ml Insuln.Pen SC 3 u Q6 REG Administration Protocol Losartan Potassium 50 mg 07/23/25 10:00 07/24/25 08:56 Losartan Potassium 50 Mg Tablet PO Not Given DAILY [facility] Protocol Methylprednisolone Sodium Succinate 40 mg 07/23/25 06:00 07/24/25 05:55 Methylprednisolone Sod Succ 40 Mg/Ml Vial IV 40 mg Q8 REG Administration Montelukast Sodium 10 mg 07/23/25 10:00 07/24/25 08:57 Montelukast 10 Mg Tablet PO Not Given DAILY [facility] Nystatin 1 applic 07/22/25 22:00 07/23/25 21:39 Nystatin Powder 15gm Bottle TOPICAL 1 applic BID [facility] Administration Protocol Ondansetron HCl 4 mg 07/22/25 18:32 Ondansetron 4 Mg/2 Ml Vial IV Q8H PRN PRN NAUSEA/VOMITING Sodium Chloride 10 - 40 ml 07/22/25 18:33 07/23/25 00:20 0.9% Saline Lock 10 Ml Syringe IV 30 ml UD PRN Administration SALINE FLUSH Trazodone HCl 150 mg 07/22/25 21:08 Trazodone 50 Mg Tablet PO QHS PRN sleep Venlafaxine HCl 150 mg 07/23/25 10:00 07/24/25 08:57 Venlafaxine Xr 150 Mg Capsule PO Not Given DAILY [facility] Lab / Micro Data 07/24/25 11:35 07/24/25 03:44 Labs: Laboratory Results - last 24 hr 07/23/25 11:27: POC Glucose 246 H 07/23/25 18:19: POC Glucose 276 H 07/23/25 23:54: POC Glucose 189 H 07/24/25 03:44: WBC 15.2 H, RBC 2.70 L, Hgb 8.2 L, Hct 25.1 L, MCV 93.0, MCH 30.4, MCHC 32.7, RDW Std Deviation 45.9 H, RDW Coeff of Tessa 13.4, Plt Count 254, MPV 9.7, Immature Gran % (Auto) 1.100 H, Neut % (Auto) 94.3 H, Lymph % (Auto) 2.0 L, Sunflower % (Auto) 2.5, Eos % (Auto) 0.0, Baso % (Auto) 0.1, Absolute Neuts (auto) 14.3 H, Absolute Lymphs (auto) 0.30 L, Nucleated RBC % 0, Sodium 137, Potassium 4.4, Chloride 104, Carbon Dioxide 17.5 L, Anion Gap 16 H, BUN 70 H, C reatinine 2.57 H, Estim Creat Clear Calc 19.66 L, Est GFR (MDRD) Non-Af 18 L, B UN/Creatinine Ratio 27.3 H, Glucose 241 H, Calcium 8.5, Phosphorus 5.0 H, Magnesium 1.9, Total Bilirubin 0.20, AST 56 H, ALT 39 H, Alkaline Phosphatase 101, Total Protein 6.2, Albumin 2.7 L, Globulin 3.5, Albumin/Globulin Ratio 0.8 L 07/24/25 05:53: POC Glucose 194 H Micro: Microbiology 07/22/25 22:05 Sputum, Induced/Lukens Respiratory Culture - Preliminary Appears to be normal respiratory michelle. Further studies to follow. 07/22/25 13:09 Urine, Catheterized Urine Culture - Final Culture exhibits no growth. 07/22/25 20:49 Mucosa - Nasopharyngeal Respiratory Panel (PCR) - Final ABG Data ABG results: ABG 07/23/25 12:41 Specimen Type ART Sample Site L Radial pH 7.36 Bicarbonate Actual 22.0 Total CO2 23 Base Excess -4 L O2 Saturation 96 O2 % 30.0 ABG pCO2 39.2 ABG pO2 84 Respiration Rate 16 O2 Delivery Device Adult Vent Vent Mode AC Tidal Volume 400.0 POC PEEP 5 Imaging Radiology Impression Echocardiogram 07/22/25 17:21 Interpretation Summary Technically difficult study. Mild concentric left ventricular hypertrophy. The left ventricular ejection fraction is 70 %. Stage 1 diastolic dysfunction. The left atrium is moderately enlarged. Mild mitral annular calcification. Ordering Physician: Antoni Argueta Performed By: Philippe Dias RCS Renal Ultrasound 07/23/25 05:50 IMPRESSION: 1. Bilateral renal atrophy. No hydronephrosis. Reading Location: [id number] Assessment and Plan . Assessment and plan: 80 F who presents for Dysphagia. Patient found to have Achalasia therefore GI was consulted and patient was admitted to floor. Patient was on 4L NC at home but patient was having respiratory distress therefore BiPAP was tried initially but patient continued to worsen therefore patient was transferred to ICU and intubated. 07/24/25 Patient seen and examined. Chart and data reviewed. She is sedated - appears comfortable Now in AF w/ tachycardia - amiodarone infusing - TTE reveals LVH, dilated LA, normal LVSF UOP adequate, but creatinine elevated today MV 6-7 LPM, PIP OK, modest O2 requirement EGD pending EXAM GEN sedated VS as above HEENT CLINT NECK supple COR irreg, fast CHEST coarse ABD soft EXT minimal edema SKIN w/d PANFILO sedated ASSESSMENT/PLAN 1. Acute respiratory failure requiring MV support 2. 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 Emphysema / former tobacco use 4. BENITO - non-oliguric 5. Anemia 6. DM 7. AF w/ tachycardia -MV support -sedation/analgesia -amiodarone infusing -stop beta agonist -continue short course steroids -receiving IV ABX -EGD pending -sq insulin -follow renal function closely -sq UFH for VTE prophylaxis Critical Care Time: 50 minutes The entirety of this encounter was done via Telemedicine
[2025-07-24] MEDS: fentaNYL drip 100 ML 5 MCG CONT INF (10:50)
[2025-07-24] MEDS: Insulin Glargine-YFGN 100 UNIT/ML Pen 25 UNIT SC (10:59)
[2025-07-24] MEDS: Pantoprazole Sodium 40 MG in 0.9% Normal Saline (100mL MB+) 100 ML 300 MG IV (11:05)
[2025-07-24 11:57] LABS: Hemoglobin 8.5 g/dL (12.0-15.0)
[2025-07-24 12:39] LABS: Hematocrit 25.6 % (37-47); Immature Granulocytes Count 0.100 X10^3/uL (0.0-0.0); Mean Corp Hgb Conc 33.6 g/dL (32-36); Mean Corpuscular Volume 94.1 fL (81-99); Mean Platelet Vol. 10.1 fl (6.2-12.0); NRBC Flagged by Analyzer 0.1 % (0-5); POSITIVE DIFFERENTIAL YES; Platelet Count 267 K/mm3 (150-450); RBC Distribution Width CV 13.6 % (11.6-14.6); RBC Distribution Width SD 46.6 fl (35.1-43.9); Red Blood Count 2.72 M/mm3 (4.2-5.4); White Blood Count 14.6 K/mm3 (4.4-11.0)
[2025-07-24] MEDS: Ipratropium 0.5 MG/2.5 ML SOLUTION INHALATION (12:41)
[2025-07-24 12:48] LABS: Prothrombin Time (Protime)PT. 14.7 SECONDS (11.7-14.9)
[2025-07-24 12:49] LABS: Partial Thromboplast Time 28.4 Seconds (24.1-36.2)
[2025-07-24] MEDS: HEPARIN/D5w 25,000 UNITS 25,000 UNITS/250 ML IV.SOLN. 12.9 UNITS CONT INF (14:01)
[2025-07-24] MEDS: Amiodarone 360 MG in Dextrose 5% Viaflo Bag 192.8 ML 16.7 MG CONT INF (15:12)
[2025-07-24] MEDS: 0.9% Saline Lock 10 ML Syringe IV ×2 (18:06→22:27)
[2025-07-24] MEDS: Lactated Ringers 1,000 ML 999 ML IV (18:42)
[2025-07-24 20:15] LABS: Partial Thromboplast Time 144.6 Seconds (24.1-36.2)
[2025-07-25] VITALS (34 sets, daily range): BP systolic 102–142; BP diastolic 47–89; PULSE 94–130; RESP 16; TEMP 36.4–36.9; O2SAT 95–100; BMI 29.3
[2025-07-25] MEDS: Propofol 10MG/Ml 1,000 MG/100 ML Bottle 12.4 MG CONT INF (01:35)
[2025-07-25 02:06] LABS: Partial Thromboplast Time 99.9 Seconds (24.1-36.2)
[2025-07-25] MEDS: 0.9% Saline Lock 10 ML Syringe IV ×3 (03:11→06:51)
[2025-07-25] MEDS: Amiodarone 360 MG in Dextrose 5% Viaflo Bag 192.8 ML 16.7 MG CONT INF ×2 (03:17→18:09)
[2025-07-25 03:30] LABS: Hematocrit 26.3 % (37-47); Hemoglobin 8.5 g/dL (12.0-15.0); Immature Granulocytes Count 0.200 X10^3/uL (0.0-0.0); Mean Corp Hgb Conc 32.3 g/dL (32-36); Mean Corpuscular Volume 92.9 fL (81-99); Mean Platelet Vol. 9.8 fl (6.2-12.0); NRBC Flagged by Analyzer 0.1 % (0-5); POSITIVE DIFFERENTIAL YES; Platelet Count 300 K/mm3 (150-450); RBC Distribution Width CV 13.5 % (11.6-14.6); RBC Distribution Width SD 46.2 fl (35.1-43.9); Red Blood Count 2.83 M/mm3 (4.2-5.4); White Blood Count 13.5 K/mm3 (4.4-11.0)
[2025-07-25 04:37] LABS: AST(SGOT) 34 U/L (<=31); Alanine Aminotransfer ALT/SGPT 32 U/L (<=34); Albumin, Serum 2.7 g/dL (3.4-4.8); Alkaline Phosphatase 103 U/L (35-104); Anion Gap 13 (5-15); BUN 80 mg/dL (4-19); BUN/Creat Ratio 32.4 RATIO (10-20); Calcium,Total 8.4 mg/dL (7.6-11.0); Carbon Dioxide 18.8 mmol/L (21.0-32.0); Chloride 105 mmol/L (98-108); Estimated Creatinine Clearance 20.58 ml/min (50-250); Globulin 3.4 g/dL (2.2-4.2); Glucose 189 mg/dL (70-99); Potassium 4.7 mmol/L (3.3-5.1)
--- NOTE | 2025-07-25 05:05 | RAD_ITS ---
PROCEDURE: CHEST 1 VIEW (PORTABLE) 07/25/2025 REASON FOR EXAM: ARF TECHNIQUE: Frontal view of the chest. COMPARISON: July 22, 2025 FINDINGS: There is an ET tube in position with its tip 5.4 cm above the level of the rhona. There is an enteric tube seen with loops in the esophagus in the chest and its tip at the GE junction, unchanged. There is cardiomegaly with central vascular congestion and congestive changes. A trace left pleural effusion appears unchanged. There is no pneumothorax. There is no acute bony abnormality. Aortic calcifications are visible. RAD/Chest 1 View (Portable) IMPRESSION: Tubes and lines in position. There is cardiomegaly with central vascular congestion and congestive changes. Reading Location: [facility]
[2025-07-25 06:02] LABS: Allen Test Positive; Base Excess -3 mmol/L (-2 to +2); FI02 30.0; PEEP 5; PO2 118 mmHG (75-100); RR 16; SITE R Radial; SO2 99 % (95-99)
[2025-07-25] MEDS: Piperacil/Tazobactam 3.375 GM in 0.9% Normal Saline (50mL MB+) 50 ML IV ×3 (06:38→22:00)
[2025-07-25] MEDS: fentaNYL drip 100 ML 5 MCG CONT INF (06:51)
--- NOTE | 2025-07-25 07:28 | PCM.PN.INT ---
Assessment & Plan Assessment/Plan (1) Acute on chronic respiratory failure with hypoxia and hypercapnia: PLAN: Plan RECOMMENDATIONS: 1. Continue assist-control mode of mechanical ventilation. Wean FiO2 and PEEP as tolerated. 2. Continue propofol and fentanyl for sedation. 3. Continue bronchodilators and steroids. 4. Stop heparin drip 6 hours prior to planned endoscopic procedure tomorrow. 5. Tentative plans for upper endoscopy tomorrow afternoon. 6. Will hold off on potential extubation until endoscopic evaluation is completed. 7. Continue appropriate GI prophylaxis. IMPRESSIONS: 1. Acute on chronic combined respiratory failure Most likely related to COPD exacerbation in the setting of aspiration pneumonia. The patient is at high risk for further aspiration events given her history of dysphagia and concern for achalasia. For now, the patient will be continued on assist-control mode of mechanical ventilation. Antimicrobials will be continued to complete 7 days of therapy. Will continue scheduled bronchodilators and steroids. Ultimately, we will hold off on proceeding with any trials of extubation until the patient endoscopic workup has been completed tomorrow. 2. History of dysphagia/GERD/questionable achalasia Gastroenterology consulted with tentative plans for endoscopic evaluation tomorrow. Continue PPI therapy in the interim. 3. Atrial fibrillation with RVR Continue weight-based heparin infusion for now. Plan to hold heparin 6 hours prior to planned endoscopic evaluation tomorrow. Echocardiogram revealed intact, normal systolic function. 4. History of chronic kidney disease/anemia/allergic rhinitis/history of CVA/hypertension/diabetes mellitus/tobacco dependency Complicates care, management, recovery and prognosis. Continue supportive measures as noted above. TIME: 38 minutes of critical care time, independent of procedures, was spent addressing the patient's acute on chronic combined respiratory failure, history of dysphagia, atrial fibrillation with RVR, review of all data and collaboration with the care team. Subjective Subjective The patient was seen and examined at the bedside this morning. Events from the last 24 hours have been reviewed. The patient is currently afebrile, hemodynamically stable and maintaining appropriate oxygen saturations on assist-control mode mechanical ventilation with an FiO2 requirement of 30% and PEEP of 5. The patient is currently sedated on propofol and fentanyl. White blood cell count was noted to be 13,000. Hemoglobin and platelet count are stable. Arterial blood gas was notable for a pH of 7.48 with a pCO2 of 27 and pO2 of 118. Creatinine is elevated at 2.48. The patient remains on a heparin infusion. I did call and speak with Dr. Nguyen of gastroenterology regarding the feasibility of EGD prior to extubation. The patient is tentatively scheduled for upper endoscopy tomorrow afternoon. He did ask that the heparin be stopped 6 hours prior to the procedure. The patient will remain intubated until the endoscopic evaluation has been completed. Objective Data Objective Data The patient's most recent lab work, culture data and imaging studies have all been personally reviewed. Surface echocardiogram demonstrated mild concentric LVH with an ejection fraction of 70% and stage I diastolic dysfunction. Infectious workup has been unrevealing to date. Vital Signs: Vital Signs Temp Pulse Resp BP Pulse Ox O2 Del Method O2 Flow Rate 98.2 F 113 H 16 109/68 96 Mechanical Ventilator 4 07/25/25 07:00 07/25/25 07:00 07/25/25 07:00 07/25/25 07:00 07/25/25 07:00 07/25/25 07:00 07/22/25 21:16 FiO2 30 07/25/25 07:00 Oxygen Flow Rate (L/min) 4 Oxygen Delivery Method Mechanical Ventilator Weight: 186 lb 15.232 oz Body Mass Index (BMI) 29.3 Intake & Output: Intake and Output for Last 24 Hours 07/23/25 07/24/25 07/25/25 23:59 23:59 23:59 Intake Total 656.64 / 674.04 2048.19 / 2065.59 428.14 / 428.14 Output Total 2049 / 2049 735 / 735 700 / 700 Balance -1393.36 / -1375.96 1313.19 / 1330.59 -271.86 / -271.86 Lab / Micro Data Attestation: I reviewed the patient's lab results. 07/25/25 03:20 07/25/25 03:20 Labs: Laboratory Results - last 24 hr 07/24/25 10:57: POC Glucose 228 H 07/24/25 11:35: WBC 14.6 H, RBC 2.72 L, Hgb 8.5 L, Hct 25.6 L, MCV 94.1, MCH 31.6, MCHC 33.6, RDW Std Deviation 46.6 H, RDW Coeff of Tessa 13.6, Plt Count 267, MPV 10.1, Immature Gran % (Auto) 0.700, Neut % (Auto) 94.8 H, Lymph % (Auto) 2.2 L, [place] % (Auto) 2.2, Eos % (Auto) 0.0, Baso % (Auto) 0.1, Absolute Neuts (auto) 13.8 H, Absolute Lymphs (auto) 0.32 L, Nucleated RBC % 0.1 07/24/25 12:25: PT 14.7, INR 1.1, APTT 28.4 07/24/25 18:04: POC Glucose 172 H 07/24/25 19:49: APTT 144.6 H* 07/25/25 00:09: POC Glucose 157 H 07/25/25 01:45: APTT 99.9 H* 07/25/25 03:20: WBC 13.5 H, RBC 2.83 L, Hgb 8.5 L, Hct 26.3 L, MCV 92.9, MCH 30.0, MCHC 32.3, RDW Std Deviation 46.2 H, RDW Coeff of Tessa 13.5, Plt Count 300, MPV 9.8, Immature Gran % (Auto) 1.500 H, Neut % (Auto) 92.5 H, Lymph % (Auto) 3.5 L, [place] % (Auto) 2.4, Eos % (Auto) 0.0, Baso % (Auto) 0.1, Absolute Neuts (auto) 12.5 H, Absolute Lymphs (auto) 0.47 L, Nucleated RBC % 0.1, Sodium 136, Potassium 4.7, Chloride 105, Carbon Dioxide 18.8 L, Anion Gap 13, BUN 80 H, Creatinine 2.48 H, Estim Creat Clear Calc 20.58 L, Est GFR (MDRD) Non-Af 19 L, BUN/Creatinine Ratio 32.4 H, Glucose 189 H, Calcium 8.4, Total Bilirubin 0.19, AST 34 H, ALT 32, Alkaline Phosphatase 103, Total Protein 6.1, Albumin 2.7 L, Globulin 3.4, Albumin/Globulin Ratio 0.8 L Micro: Microbiology 07/22/25 22:05 Sputum, Induced/Lukens Gram Stain - Final 07/22/25 22:05 Sputum, Induced/Lukens Respiratory Culture - Preliminary Appears to be normal respiratory michelle. Further studies to follow. 07/22/25 12:32 Blood Culture (Wb) - Anticubital Left Blood Culture - Preliminary No growth in 48 hours. 07/22/25 12:32 Blood Culture (Wb) - Anticubital Right Blood Culture - Preliminary No growth in 48 hours. 07/22/25 13:09 Urine, Catheterized Urine Culture - Final Culture exhibits no growth. 07/22/25 20:49 Mucosa - Nasopharyngeal Respiratory Panel (PCR) - Final 07/22/25 12:30 Mucosa - Nose SARS-CoV-2, Influenza & RSV (PCR) - Final ABG Data ABG results: ABG 07/25/25 05:58 Specimen Type ART Sample Site R Radial pH 7.48 H Bicarbonate Actual 20.4 L Total CO2 21 Base Excess -3 L O2 Saturation 99 O2 % 30.0 ABG pCO2 27.1 L ABG pO2 118 H Ed Test Positive Respiration Rate 16 O2 Delivery Device Adult Vent Vent Mode AC Tidal Volume 400.0 POC PEEP 5 Radiography Diagnostic Testing: Radiology Impression Chest X-Ray 07/25/25 05:05 IMPRESSION: Tubes and lines in position. There is cardiomegaly with central vascular congestion and congestive changes. Reading [facility] Physical Exam Const Constitutional Narrative: Intubated, sedated and mechanically ventilated. HEENT normocephalic and head/scalp atraumatic Mouth: endotracheal tube in place and OG tube in place Eyes EOMs intact bilaterally and conjunctivae normal Neck supple General: trachea midline Chest inspection of chest normal Resp Auscultation: diminished lung sounds; Negative for rales, rhonchi or wheezes Cardio S1 normal heart sound and S2 normal heart sound Rate: tachycardic Rhythm: abnormal rhythm GI normal to inspection, nondistended, normoactive bowel sounds Extremity no clubbing, cyanosis or edema Skin no rashes or lesions noted Neuro Sensorium / Orientation: sedated on vent Charges/Coding Procedures Hospitalists Procedures: 90045 Critical Care 1st Hr
--- NOTE | 2025-07-25 08:03 | PN.HOSP_ITS ---
Reason for Visit Chief Complaint: Worsening shortness of breath Objective Data Objective Data Vital Signs: Vital Signs Temp Pulse Resp BP Pulse Ox O2 Del Method O2 Flow Rate 98.2 F 113 H 16 109/68 96 Mechanical Ventilator 4 07/25/25 07:00 07/25/25 07:00 07/25/25 07:00 07/25/25 07:00 07/25/25 07:00 07/25/25 07:00 07/22/25 21:16 FiO2 30 07/25/25 07:00 Oxygen Flow Rate (L/min) 4 Oxygen Delivery Method Mechanical Ventilator Weight: 84.8 kg Body Mass Index (BMI) 29.3 Intake & Output: Intake and Output for Last 24 Hours 07/23/25 07/24/25 07/25/25 23:59 23:59 23:59 Intake Total 656.64 / 674.04 2048.19 / 2065.59 428.14 / 428.14 Output Total 2049 / 2049 735 / 735 700 / 700 Balance -1393.36 / -1375.96 1313.19 / 1330.59 -271.86 / -271.86 Lab / Micro Data 07/25/25 03:20 07/25/25 03:20 Labs: Laboratory Results - last 24 hr 07/24/25 10:57: POC Glucose 228 H 07/24/25 11:35: WBC 14.6 H, RBC 2.72 L, Hgb 8.5 L, Hct 25.6 L, MCV 94.1, MCH 31.6, MCHC 33.6, RDW Std Deviation 46.6 H, RDW Coeff of Tessa 13.6, Plt Count 267, MPV 10.1, Immature Gran % (Auto) 0.700, Neut % (Auto) 94.8 H, Lymph % (Auto) 2.2 L, [place] % (Auto) 2.2, Eos % (Auto) 0.0, Baso % (Auto) 0.1, Absolute Neuts (auto) 13.8 H, Absolute Lymphs (auto) 0.32 L, Nucleated RBC % 0.1 07/24/25 12:25: PT 14.7, INR 1.1, APTT 28.4 07/24/25 18:04: POC Glucose 172 H 07/24/25 19:49: APTT 144.6 H* 07/25/25 00:09: POC Glucose 157 H 07/25/25 01:45: APTT 99.9 H* 07/25/25 03:20: WBC 13.5 H, RBC 2.83 L, Hgb 8.5 L, Hct 26.3 L, MCV 92.9, MCH 30.0, MCHC 32.3, RDW Std Deviation 46.2 H, RDW Coeff of Tessa 13.5, Plt Count 300, MPV 9.8, Immature Gran % (Auto) 1.500 H, Neut % (Auto) 92.5 H, Lymph % (Auto) 3.5 L, [place] % (Auto) 2.4, Eos % (Auto) 0.0, Baso % (Auto) 0.1, Absolute Neuts (auto) 12.5 H, Absolute Lymphs (auto) 0.47 L, Nucleated RBC % 0.1, Sodium 136, Potassium 4.7, Chloride 105, Carbon Dioxide 18.8 L, Anion Gap 13, BUN 80 H, C reatinine 2.48 H, Estim Creat Clear Calc 20.58 L, Est GFR (MDRD) Non-Af 19 L, B UN/Creatinine Ratio 32.4 H, Glucose 189 H, Calcium 8.4, Total Bilirubin 0.19, A ST 34 H, ALT 32, Alkaline Phosphatase 103, Total Protein 6.1, Albumin 2.7 L, Globulin 3.4, Albumin/Globulin Ratio 0.8 L Micro: Microbiology 07/22/25 22:05 Sputum, Induced/Lukens Gram Stain - Final 07/22/25 22:05 Sputum, Induced/Lukens Respiratory Culture - Preliminary Appears to be normal respiratory michelle. Further studies to follow. 07/22/25 12:32 Blood Culture (Wb) - Anticubital Left Blood Culture - Preliminary No growth in 48 hours. 07/22/25 12:32 Blood Culture (Wb) - Anticubital Right Blood Culture - Preliminary No growth in 48 hours. 07/22/25 13:09 Urine, Catheterized Urine Culture - Final Culture exhibits no growth. 07/22/25 20:49 Mucosa - Nasopharyngeal Respiratory Panel (PCR) - Final 07/22/25 12:30 Mucosa - Nose SARS-CoV-2, Influenza & RSV (PCR) - Final ABG Data ABG results: ABG 07/25/25 05:58 Specimen Type ART Sample Site R Radial pH 7.48 H Bicarbonate Actual 20.4 L Total CO2 21 Base Excess -3 L O2 Saturation 99 O2 % 30.0 ABG pCO2 27.1 L ABG pO2 118 H Ed Test Positive Respiration Rate 16 O2 Delivery Device Adult Vent Vent Mode AC Tidal Volume 400.0 POC PEEP 5 Radiography Diagnostic Testing: Radiology Impression Chest X-Ray 07/25/25 05:05 IMPRESSION: Tubes and lines in position. There is cardiomegaly with central vascular congestion and congestive changes. Reading [facility] Assessment & Plan Assessment/Plan (1) Acute on chronic respiratory failure with hypoxia and hypercapnia: (2) Dysphagia: (3) Esophageal dysmotility: (4) Paroxysmal atrial fibrillation with RVR: PLAN: Plan Acute on chronic hypoxic and hypercapnic respiratory failure-multifactorial - Initially admitted to PCU on BiPAP but ABG showed significant respiratory distress and she required intubation - Procalcitonin is slightly elevated so there is concern for aspiration pneumonia in conjunction with findings on CT of the chest - Currently intubated sedated with intubation on 07/22/2025 - Also seems to have some pulmonary edema with an elevated BNP at 5405 - Patient oxygen dependent due to COPD at baseline on 4 L - Continue scheduled DuoNebs - Continue IV steroids - Continue Zosyn - Continue Lasix - Echocardiogram is pending - Sputum, blood, and urine cultures are pending - Respiratory viral panel and COVID/flu/RSV are all negative - Pulm critical care is following Dysphagia/concern for achalasia/GERD - GI consulted as patient was noted to have air-fluid levels in the esophagus on the CT of her chest with subsequent suspected aspiration pneumonia as part of her respiratory failure etiology - Will need EGD - Continue PPI as ordered - Speech therapy to evaluate once extubated New onset A-fib with RVR - Heart rates in the 140s to 160s - Start amiodarone bolus and 150 mg x 1 dose and then drip - Start heparin drip for now with procedures planned for tomorrow and patient ultimately will need to be transition to Eliquis -Hemoglobin is stable but will monitor - Echocardiogram already done yesterday and showed an EF of 70% with stage I diastolic dysfunction and moderate enlargement of the left atrium with no significant valvular abnormalities. - Check a.m. TSH Elevated serum creatinine on CKD stage IIIb - Serum creatinine on presentation was 2.06 and baseline appears to be between 1.7-1.9 recently - Serum creatinine 2.04 on admission and has trended up with diuretics so we will discontinue IV Lasix and monitor - Renal ultrasound done and no significant abnormalities noted at this time - Continue to monitor - Avoid nephrotoxins as able - Continue to monitor closely - No need for nephrology at this time but will continue to monitor kidney function - Repeat lab in a.m. Anion gap metabolic acidosis - Remains present - ABG obtained and patient was not acidotic - Monitor clinically at this time - question if this is a spurious lab finding--> bicarb on ABG was 22 Acute on chronic debility with recent mechanical fall - Patient lives alone at baseline but daughter lives close - Patient has had issues with movement since her fall 2 weeks ago - PT/OT is consulted and will work with patient more when she is extubated - Case management/social work consultation for assistance with discharge planning Chronic normocytic anemia -Restart home iron supplementation -Hemoglobin remained stable and in her baseline of 9-10 -Has dropped slightly but shows stability so we will go ahead and start heparin drip for now but need to watch closely -Repeat CBC in a.m. Chronic hypoxic respiratory failure secondary to COPD -Baseline dependence on 4 L continuous -Hold home inhalers -Continue budesonide therapy -As needed albuterol -I-S -Continue Singulair Allergic rhinitis -Continue home Singulair History of stroke/TIA - Discontinue aspirin with initiation of heparin and then transition to Eliquis Hyperlipidemia -Continue statin Hypertension - Continue home antihypertensives - As needed hydralazine DM-2 - On orals at baseline-hold - A1c is 6.4 - Blood sugars remain elevated despite initiation of basal insulin yesterday so will increase to Lantus 25 units - Continue SSI - Accu-Cheks and SSI ordered every 6 for now Depression/anxiety - Continue home medications History of tobacco abuse - Remote - Continue ongoing cessation DVT prophylaxis - Continue subcu heparin CODE STATUS - Full Code
--- NOTE | 2025-07-25 08:03 | PCM.PN.HOSP ---
Reason for Visit Chief Complaint: Worsening shortness of breath Subjective Subjective Patient is a 80-year-old lady who presented to the emergency department in respiratory distress. Was initially placed on BiPAP however clinical condition deteriorated resulting in patient being intubated and admitted to the intensive care unit. CT of the scan showed dilated esophagus with air-fluid levels GI subsequently consulted Objective Data Objective Data Vital Signs: Vital Signs Temp Pulse Resp BP Pulse Ox O2 Del Method O2 Flow Rate 98.2 F 113 H 16 109/68 96 Mechanical Ventilator 4 07/25/25 07:00 07/25/25 07:00 07/25/25 07:00 07/25/25 07:00 07/25/25 07:00 07/25/25 07:00 07/22/25 21:16 FiO2 30 07/25/25 07:00 Oxygen Flow Rate (L/min) 4 Oxygen Delivery Method Mechanical Ventilator Weight: 84.8 kg Body Mass Index (BMI) 29.3 Intake & Output: Intake and Output for Last 24 Hours 07/23/25 07/24/25 07/25/25 23:59 23:59 23:59 Intake Total 656.64 / 674.04 2048.19 / 2065.59 428.14 / 428.14 Output Total 2049 / 2049 735 / 735 700 / 700 Balance -1393.36 / -1375.96 1313.19 / 1330.59 -271.86 / -271.86 Lab / Micro Data 07/25/25 03:20 07/25/25 03:20 Labs: Laboratory Results - last 24 hr 07/24/25 10:57: POC Glucose 228 H 07/24/25 11:35: WBC 14.6 H, RBC 2.72 L, Hgb 8.5 L, Hct 25.6 L, MCV 94.1, MCH 31.6, MCHC 33.6, RDW Std Deviation 46.6 H, RDW Coeff of Tessa 13.6, Plt Count 267, MPV 10.1, Immature Gran % (Auto) 0.700, Neut % (Auto) 94.8 H, Lymph % (Auto) 2.2 L, [place] % (Auto) 2.2, Eos % (Auto) 0.0, Baso % (Auto) 0.1, Absolute Neuts (auto) 13.8 H, Absolute Lymphs (auto) 0.32 L, Nucleated RBC % 0.1 07/24/25 12:25: PT 14.7, INR 1.1, APTT 28.4 07/24/25 18:04: POC Glucose 172 H 07/24/25 19:49: APTT 144.6 H* 07/25/25 00:09: POC Glucose 157 H 07/25/25 01:45: APTT 99.9 H* 07/25/25 03:20: WBC 13.5 H, RBC 2.83 L, Hgb 8.5 L, Hct 26.3 L, MCV 92.9, MCH 30.0, MCHC 32.3, RDW Std Deviation 46.2 H, RDW Coeff of Tessa 13.5, Plt Count 300, MPV 9.8, Immature Gran % (Auto) 1.500 H, Neut % (Auto) 92.5 H, Lymph % (Auto) 3.5 L, [place] % (Auto) 2.4, Eos % (Auto) 0.0, Baso % (Auto) 0.1, Absolute Neuts (auto) 12.5 H, Absolute Lymphs (auto) 0.47 L, Nucleated RBC % 0.1, Sodium 136, Potassium 4.7, Chloride 105, Carbon Dioxide 18.8 L, Anion Gap 13, BUN 80 H, Creatinine 2.48 H, Estim Creat Clear Calc 20.58 L, Est GFR (MDRD) Non-Af 19 L, BUN/Creatinine Ratio 32.4 H, Glucose 189 H, Calcium 8.4, Total Bilirubin 0.19, AST 34 H, ALT 32, Alkaline Phosphatase 103, Total Protein 6.1, Albumin 2.7 L, Globulin 3.4, Albumin/Globulin Ratio 0.8 L Micro: Microbiology 07/22/25 22:05 Sputum, Induced/Lukens Gram Stain - Final 07/22/25 22:05 Sputum, Induced/Lukens Respiratory Culture - Preliminary Appears to be normal respiratory michelle. Further studies to follow. 07/22/25 12:32 Blood Culture (Wb) - Anticubital Left Blood Culture - Preliminary No growth in 48 hours. 07/22/25 12:32 Blood Culture (Wb) - Anticubital Right Blood Culture - Preliminary No growth in 48 hours. 07/22/25 13:09 Urine, Catheterized Urine Culture - Final Culture exhibits no growth. 07/22/25 20:49 Mucosa - Nasopharyngeal Respiratory Panel (PCR) - Final 07/22/25 12:30 Mucosa - Nose SARS-CoV-2, Influenza & RSV (PCR) - Final ABG Data ABG results: ABG 07/25/25 05:58 Specimen Type ART Sample Site R Radial pH 7.48 H Bicarbonate Actual 20.4 L Total CO2 21 Base Excess -3 L O2 Saturation 99 O2 % 30.0 ABG pCO2 27.1 L ABG pO2 118 H Ed Test Positive Respiration Rate 16 O2 Delivery Device Adult Vent Vent Mode AC Tidal Volume 400.0 POC PEEP 5 Radiography Diagnostic Testing: Radiology Impression Chest X-Ray 07/25/25 05:05 IMPRESSION: Tubes and lines in position. There is cardiomegaly with central vascular congestion and congestive changes. Reading [facility] Physical Exam Narrative GENERAL: Sedated on the vent HEENT: Atraumatic; ET tube in place EYES; Anicteric, Normal Conjunctiva NECK; supple, normal thyroid, RESPIRATORY: Diminished to auscultation CARDIOVASCULAR: Regular S1 S2, GI: soft, normoactive bowel sounds, : No Renal angle tenderness; EXTREMITIES: No edema, no clubbing, MUSCULOSKELETAL: no muscle wasting NEURO: Unable to assess patient sedated in the vent SKIN: Excoriations of lower extremities Assessment & Plan Assessment/Plan (1) Acute on chronic respiratory failure with hypoxia and hypercapnia: (2) Dysphagia: (3) Esophageal dysmotility: (4) Paroxysmal atrial fibrillation with RVR: PLAN: Plan Patient is a 80-year-old lady who presented to the emergency department in respiratory distress. Was initially placed on BiPAP however clinical condition deteriorated resulting in patient being intubated and admitted to the intensive care unit. CT of the scan showed dilated esophagus with air-fluid levels GI subsequently consulted 1. Acute on chronic hypoxic and hypercapnic respiratory failure ? Multifactorial including aspiration pneumonia as well as congestive heart failure. Patient was initially managed with noninvasive ventilation BiPAP however respiratory status continued to deteriorate resulting in patient being intubated on 07/22/2025. 2. Suspected aspiration pneumonia based on CT finding of severely dilated esophagus. CT again demonstrated airspace opacities in lower lungs consistent with pneumonia. Patient remains on Zosyn 3. Dilated esophagus ? With concern for achalasia. CT obtained on 07/22/2025 demonstrated dilated esophagus with ingested material consistent with gastroesophageal reflux. Patient is on PPI consult placed to GI plan is for patient to undergo endoscopy with intervention by Dr. Walker on 07/25/2025 4. Acute congestive heart failure with preserved ejection fraction ? Patient was managed with diuretic therapy with furosemide echo ordered today show Mild concentric left ventricular hypertrophy. The left ventricular ejection fraction is 70 %. Stage 1 diastolic dysfunction. The left atrium is moderately enlarged. Mild mitral annular calcification. 5. New onset A-fib with RVR - Heart rates in the 140s to 160s patient was started on amiodarone drip. Patient was placed on systemic anticoagulation with heparin with plans to transition to apixaban on discharge 6. Anemia ? Secondary to chronic disorder monitoring H&H and transfuse if patient becomes symptomatic or hemoglobin falls below 7 7. Acute kidney injury ? Superimposed on chronic kidney disease stage III. Baseline creatinine 1.88 creatinine on admission was 2.04. Patient creatinine peaked at 2.57. Kidney ultrasound did not show any abnormalities. Consult placed to nephrology 8. Acute on chronic debility with recent mechanical fall - Patient lives alone at baseline but daughter lives close; Patient has had issues with movement since her fall 2 weeks ago; PT/OT is consulted and will work with patient more when she is extubated - Case management/social work consultation for assistance with discharge planning 9. Chronic hypoxic respiratory failure secondary to COPD -Baseline dependence on 4 L continuous. 10. History of stroke/TIAs ? Patient is on antiplatelet therapy with aspirin 11. Dyslipidemia ?Patient is on statin therapy, continued at home dose 12. Essential hypertension ? Patient blood pressure control remains stable 13. Diabetes mellitus type 2 ? Patient oral hypoglycemic agent held on admission placed on long-acting insulin with sliding scale coverage 14. Depression with anxiety ? Plan is to resume home meds once patient has been extubated 15. DVT prophylaxis ? Patient is on heparin Time spent in the patient's overall evaluation,decision-making process, review of diagnostic data, adjustment of management, discussion with other providers, nursing nursing and ancillary staff involved in patient's care documentation, 55 Minutes Charges/Coding Visit Charges Inpatient E&M: 26544 [facility] L3
[2025-07-25] MEDS: Propofol 10MG/Ml 1,000 MG/100 ML Bottle 12.7 MG CONT INF ×3 (08:49→22:00)
[2025-07-25 08:56] LABS: Partial Thromboplast Time 63.1 Seconds (24.1-36.2)
[2025-07-25] MEDS: Insulin Glargine-YFGN 100 UNIT/ML Pen 25 UNIT SC (09:36)
[2025-07-25] MEDS: Pantoprazole Sodium 40 MG in 0.9% Normal Saline (100mL MB+) 100 ML 330 MG IV (09:41)
[2025-07-25] MEDS: CHLORHEXIDINE GLUC 2% CLOTH 1 EACH TOWELETTE TOPICAL (09:43)
[2025-07-25] MEDS: Chlorhexidine 15 ML PO ×2 (09:43→21:59)
[2025-07-25] MEDS: Ipratropium 0.5 MG/2.5 ML SOLUTION INHALATION ×2 (14:12→19:01)
[2025-07-25] MEDS: HEPARIN/D5w 25,000 UNITS 25,000 UNITS/250 ML IV.SOLN. 6.6 UNITS CONT INF (14:27)
[2025-07-25 14:32] LABS: Partial Thromboplast Time 73.9 Seconds (24.1-36.2)
--- NOTE | 2025-07-25 17:24 | PN_ITS ---
Progress Note 80-year-old female with a history of Chronic Obstructive Pulmonary Disease and Atrial Fibrillation with Rapid Ventricular Response (A-fib with RVR), currently intubated and sedated on a mechanical ventilator in the Intensive Care Unit . As the patient is unable to speak, subjective information is limited and is primarily gathered from medical records and available reports. No new patient (patient intubated and sedated) or family concerns were expressed. Physical Exam Narrative GENERAL: Sedated on the vent HEENT: Atraumatic; ET tube in place EYES; Anicteric, Normal Conjunctiva NECK; supple, normal thyroid, RESPIRATORY: Diminished to auscultation CARDIOVASCULAR: Regular S1 S2, GI: soft, normoactive bowel sounds, : No Renal angle tenderness; EXTREMITIES: No edema, no clubbing, MUSCULOSKELETAL: no muscle wasting NEURO: Unable to assess patient sedated in the vent SKIN: Excoriations of lower extremities Assessment & Plan Assessment/Plan (1) Paroxysmal atrial fibrillation with RVR: (2) Esophageal dysmotility: (3) Acute on chronic respiratory failure with hypoxia and hypercapnia: PLAN: 1. Status Post Intubation for Acute Respiratory Failure:?The patient is depen dent on mechanical ventilation, likely for a severe COPD exacerbation. Her COPD status is severe, making her vulnerable to respiratory decompensation. Progress is being made towards ventilator weaning, with respiratory parameters trending positively. 2. Fluid-Filled Esophagus:?The etiology remains unclear, but potential causes include esophageal motility disorders (such as achalasia), obstruction, or prolonged supine positioning due to sedation and intubation. The finding is significant due to the risk of aspiration, especially in an intubated and sedated patient. 3. Atrial Fibrillation with RVR:?The patient requires therapeutic anticoagulation due to her cardiac history. Her heart rate is currently controlled. The decision to hold the heparin for the procedure must weigh the risk of bleeding against the risk of thromboembolic events. 4. Pre-endoscopy Evaluation and Risk Assessment:?For an intubated and sedated patient on therapeutic heparin, an upper endoscopy is a higher-risk procedure. *?Bleeding Risk:?The heparin drip is a major bleeding risk factor. *?Airway Risk:?The intubation provides airway protection, but the procedure still carries risks of hemodynamic changes and potential for complications. *?Fluid-Filled Esophagus Risk:?The high volume of esophageal fluid increases the risk of aspiration despite intubation. Plan 1. Pulmonary: * Continue current ventilator settings as per monorail charger operator. 2. Gastroenterology: * Upper Endoscopy:?Scheduled for tomorrow to determine the cause of the fluid- filled esophagus and rule out obstruction, motility disorders, or mass. 3. Cardiology/Hematology: * Heparin Management:?Hold heparin drip 6 hours before the procedure, per protocol for intravenous unfractionated heparin. * Restart heparin drip post-procedure, as directed by the cardiology service, once hemostasis is ensured. Visit Charges Inpatient E&M: [id number] [place] [id number]
[2025-07-26] VITALS (35 sets, daily range): BP systolic 104–144; BP diastolic 66–99; PULSE 100–138; RESP 16–24; TEMP 36.6–37.1; O2SAT 96–100; BMI 29.4
[2025-07-26] MEDS: Ipratropium 0.5 MG/2.5 ML SOLUTION INHALATION ×4 (01:49→19:00)
[2025-07-26] MEDS: fentaNYL drip 100 ML 5 MCG CONT INF ×2 (04:47→21:47)
[2025-07-26 05:48] LABS: Hematocrit 28.9 % (37-47); Hemoglobin 9.3 g/dL (12.0-15.0); Mean Corp Hgb Conc 32.2 g/dL (32-36); Mean Corpuscular Volume 93.8 fL (81-99); Mean Platelet Vol. 9.7 fl (6.2-12.0); POSITIVE COUNT YES; POSITIVE MORPHOLOGY YES; Platelet Count 337 K/mm3 (150-450); RBC Distribution Width CV 13.4 % (11.6-14.6); RBC Distribution Width SD 46.2 fl (35.1-43.9); Red Blood Count 3.08 M/mm3 (4.2-5.4); White Blood Count 11.6 K/mm3 (4.4-11.0)
[2025-07-26 05:49] LABS: Differential Indicated MANUAL DIFF
[2025-07-26 06:12] LABS: Anion Gap 14 (5-15); BUN 83 mg/dL (4-19); BUN/Creat Ratio 34.4 RATIO (10-20); Calcium,Total 7.9 mg/dL (7.6-11.0); Carbon Dioxide 17.7 mmol/L (21.0-32.0); Chloride 106 mmol/L (98-108); Estimated Creatinine Clearance 21.15 ml/min (50-250); Glucose 185 mg/dL (70-99); Partial Thromboplast Time 93.9 Seconds (24.1-36.2); Potassium 4.7 mmol/L (3.3-5.1)
[2025-07-26 06:19] LABS: Neutrophil-Segmented 85 % (47-70); Total Cells Counted 100 (MANUAL DIFF)
[2025-07-26] MEDS: Piperacil/Tazobactam 3.375 GM in 0.9% Normal Saline (50mL MB+) 50 ML IV (06:19)
[2025-07-26] MEDS: Amiodarone 360 MG in Dextrose 5% Viaflo Bag 192.8 ML 16.7 MG CONT INF ×2 (06:20→17:15)
[2025-07-26 06:21] LABS: Anisocytosis 1+; Tear Drop Cell RARE
[2025-07-26] MEDS: Propofol 10MG/Ml 1,000 MG/100 ML Bottle 12.7 MG CONT INF (06:22)
--- NOTE | 2025-07-26 07:49 | PCM.PN.HOSP ---
Reason for Visit Chief Complaint: Worsening shortness of breath Subjective Subjective Patient remains on the vent easily arousable. Patient EGD scheduled for this a.m. Objective Data Objective Data Vital Signs: Vital Signs Temp Pulse Resp BP Pulse Ox O2 Del Method O2 Flow Rate 98.2 F 108 H 16 121/86 H 97 Mechanical Ventilator 4 07/26/25 04:00 07/26/25 06:58 07/26/25 06:58 07/26/25 06:00 07/26/25 06:58 07/26/25 06:00 07/22/25 21:16 FiO2 30 07/26/25 06:00 Oxygen Flow Rate (L/min) 4 Oxygen Delivery Method Mechanical Ventilator Weight: 85.3 kg Body Mass Index (BMI) 29.4 Intake & Output: Intake and Output for Last 24 Hours 07/24/25 07/25/25 07/26/25 23:59 23:59 23:59 Intake Total 2048.19 / 2065.59 1140.47 / 1140.47 394.25 / 394.25 Output Total 735 / 735 1200 / 1400 275 / 275 Balance 1313.19 / 1330.59 -59.53 / -259.53 119.25 / 119.25 Lab / Micro Data 07/26/25 05:33 07/26/25 05:33 Labs: Laboratory Results - last 24 hr 07/25/25 06:41: POC Glucose 183 H 07/25/25 08:15: APTT 63.1 H 07/25/25 11:20: POC Glucose 156 H 07/25/25 14:05: APTT 73.9 H 07/25/25 17:24: POC Glucose 141 H 07/26/25 00:13: POC Glucose 163 H 07/26/25 05:33: WBC 11.6 H, RBC 3.08 L, Hgb 9.3 L, Hct 28.9 L, MCV 93.8, MCH 30.2, MCHC 32.2, RDW Std Deviation 46.2 H, RDW Coeff of Tessa 13.4, Plt Count 337, MPV 9.7, Neut % (Auto) Not Reportable, Absolute Neuts (auto) 9.9 H, Absolute Lymphs (auto) 0.93, Total Counted 100, Neutrophils % (Manual) 85 H, Lymphocytes % (Manual) 8 L, Monocytes % (Manual) 5, Metamyelocytes % 1, Myelocytes % 1 H, Platelet Estimate ADEQUATE, Anisocytosis 1+, Tear Drop Cells RARE, Ovalocytes 2+, APTT 93.9 H*, Sodium 138, Potassium 4.7, Chloride 106, Carbon Dioxide 17.7 L, Anion Gap 14, BUN 83 H, Creatinine 2.42 H, Estim Creat Clear Calc 21.15 L, Est GFR (MDRD) Non-Af 20 L, BUN/Creatinine Ratio 34.4 H, Glucose 185 H, Calcium 7.9 Micro: Microbiology 07/22/25 22:05 Sputum, Induced/Lukens Gram Stain - Final 07/22/25 22:05 Sputum, Induced/Lukens Respiratory Culture - Final Mixed normal respiratory michelle. No Streptococcus pneumoniae, beta-hemolytic Streptococcus or Staphylococcus aureus isolated. 07/22/25 12:32 Blood Culture (Wb) - Anticubital Left Blood Culture - Preliminary No growth in 48 hours. 07/22/25 12:32 Blood Culture (Wb) - Anticubital Right Blood Culture - Preliminary No growth in 48 hours. 07/22/25 13:09 Urine, Catheterized Urine Culture - Final Culture exhibits no growth. 07/22/25 20:49 Mucosa - Nasopharyngeal Respiratory Panel (PCR) - Final 07/22/25 12:30 Mucosa - Nose SARS-CoV-2, Influenza & RSV (PCR) - Final Physical Exam Narrative GENERAL: Awake on the vent on the vent HEENT: Atraumatic; ET tube in place EYES; Anicteric, Normal Conjunctiva NECK; supple, normal thyroid, RESPIRATORY: Diminished to auscultation CARDIOVASCULAR: Regular S1 S2, GI: soft, normoactive bowel sounds, : No Renal angle tenderness; EXTREMITIES: No edema, no clubbing, MUSCULOSKELETAL: no muscle wasting NEURO: Awake on the vent able to follow simple commands SKIN: Excoriations of lower extremities Assessment & Plan Assessment/Plan (1) Acute on chronic respiratory failure with hypoxia and hypercapnia: (2) Dysphagia: (3) Esophageal dysmotility: (4) Paroxysmal atrial fibrillation with RVR: PLAN: Plan Patient is a 80-year-old lady who presented to the emergency department in respiratory distress. Was initially placed on BiPAP however clinical condition deteriorated resulting in patient being intubated and admitted to the intensive care unit. CT of the scan showed dilated esophagus with air-fluid levels GI subsequently consulted 1. Acute on chronic hypoxic and hypercapnic respiratory failure ? Multifactorial including aspiration pneumonia as well as congestive heart failure. Patient was initially managed with noninvasive ventilation BiPAP however respiratory status continued to deteriorate resulting in patient being intubated on 07/22/2025. ? 07/26/2025 patient remains awake on the vent with plans to undergo weaning trial following her EGD 2. Suspected aspiration pneumonia based on CT finding of severely dilated esophagus. CT again demonstrated airspace opacities in lower lungs consistent with pneumonia. Patient remains on Zosyn 3. Dilated esophagus ? With concern for achalasia. CT obtained on 07/22/2025 demonstrated dilated esophagus with ingested material consistent with gastroesophageal reflux. Patient is on PPI consult placed to GI plan is for patient to undergo endoscopy with intervention by Dr. Nguyen on 07/25/2025 ? 07/26/2025; patient EGD scheduled for this a.m. 4. Acute congestive heart failure with preserved ejection fraction ? Patient was managed with diuretic therapy with furosemide echo ordered today show Mild concentric left ventricular hypertrophy. The left ventricular ejection fraction is 70 %. Stage 1 diastolic dysfunction. The left atrium is moderately enlarged. Mild mitral annular calcification. 5. New onset A-fib with RVR - Heart rates in the 140s to 160s patient was started on amiodarone drip. Patient was placed on systemic anticoagulation with heparin with plans to transition to apixaban on discharge 6. Anemia ? Secondary to chronic disorder monitoring H&H and transfuse if patient becomes symptomatic or hemoglobin falls below 7 7. Acute kidney injury ? Superimposed on chronic kidney disease stage III. Baseline creatinine 1.88 creatinine on admission was 2.04. Patient creatinine peaked at 2.57. Kidney ultrasound did not show any abnormalities. Consult placed to nephrology 8. Acute on chronic debility with recent mechanical fall - Patient lives alone at baseline but daughter lives close; Patient has had issues with movement since her fall 2 weeks ago; PT/OT is consulted and will work with patient more when she is extubated - Case management/social work consultation for assistance with discharge planning 9. Chronic hypoxic respiratory failure secondary to COPD -Baseline dependence on 4 L continuous. 10. History of stroke/TIAs ? Patient is on antiplatelet therapy with aspirin 11. Dyslipidemia ?Patient is on statin therapy, continued at home dose 12. Essential hypertension ? Patient blood pressure control remains stable 13. Diabetes mellitus type 2 ? Patient oral hypoglycemic agent held on admission placed on long-acting insulin with sliding scale coverage 14. Depression with anxiety ? Plan is to resume home meds once patient has been extubated 15. DVT prophylaxis ? Patient is on heparin Time spent in the patient's overall evaluation,decision-making process, review of diagnostic data, adjustment of management, discussion with other providers, nursing nursing and ancillary staff involved in patient's care documentation, 50 Minutes Charges/Coding Visit Charges Inpatient E&M: [id number] [facility] L3
--- NOTE | 2025-07-26 07:58 | PCM.PN.INT ---
Assessment & Plan Assessment/Plan (1) Acute on chronic respiratory failure with hypoxia and hypercapnia: PLAN: Plan RECOMMENDATIONS: 1. Continue assist-control mode of mechanical ventilation. Wean FiO2 and PEEP as tolerated. 2. Continue propofol and fentanyl for sedation. 3. Continue bronchodilators and steroids. 4. Continue to hold heparin drip until endoscopic evaluation is completed. 5. Tentative plans for upper endoscopy this afternoon. 6. Plan to move forward with spontaneous awakening and breathing trial beginning tomorrow morning. 7. Continue appropriate GI prophylaxis. IMPRESSIONS: 1. Acute on chronic combined respiratory failure Most likely related to COPD exacerbation in the setting of aspiration pneumonia. The patient is at high risk for further aspiration events given her history of dysphagia and concern for achalasia. For now, the patient will be continued on assist-control mode of mechanical ventilation. Antimicrobials will be continued to complete 7 days of therapy. Will continue scheduled bronchodilators and steroids. Ultimately, we will hold off on proceeding with any trials of extubation until the patient endoscopic workup has been completed later today. 2. History of dysphagia/GERD/questionable achalasia Gastroenterology consulted with tentative plans for endoscopic evaluation today. Continue PPI therapy in the interim. 3. Atrial fibrillation with RVR Continue to hold heparin until endoscopic evaluation is completed. Echocardiogram revealed intact, normal systolic function. 4. History of chronic kidney disease/anemia/allergic rhinitis/history of CVA/hypertension/diabetes mellitus/tobacco dependency Complicates care, management, recovery and prognosis. Continue supportive measures as noted above. TIME: 32 minutes of critical care time, independent of procedures, was spent addressing the patient's acute on chronic combined respiratory failure, history of dysphagia, atrial fibrillation with RVR, review of all data and collaboration with the care team. Subjective Subjective The patient was seen and examined at the bedside this morning. Events from the last 24 hours have been reviewed. The patient is currently afebrile, hemodynamically stable and maintaining appropriate oxygen saturations on assist-control mode of mechanical ventilation with an FiO2 requirement of 30% and PEEP of 5. The patient's heparin drip is currently on hold, with tentative plans for endoscopic evaluation this afternoon. White blood cell count this morning was noted to be 11,000 with a hemoglobin of 9.3 g/dL. BUN and creatinine are elevated at 83 and 2.42, respectively. Objective Data Objective Data The patient's most recent lab work, culture data and imaging studies have all been personally reviewed. Surface echocardiogram demonstrated mild concentric LVH with an ejection fraction of 70% and stage I diastolic dysfunction. Infectious workup has been unrevealing to date. Vital Signs: Vital Signs Temp Pulse Resp BP Pulse Ox O2 Del Method O2 Flow Rate 98.2 F 108 H 16 121/86 H 97 Mechanical Ventilator 4 07/26/25 04:00 07/26/25 06:58 07/26/25 06:58 07/26/25 06:00 07/26/25 06:58 07/26/25 06:00 07/22/25 21:16 FiO2 30 07/26/25 06:00 Oxygen Flow Rate (L/min) 4 Oxygen Delivery Method Mechanical Ventilator Weight: 188 lb 0.869 oz Body Mass Index (BMI) 29.4 Intake & Output: Intake and Output for Last 24 Hours 07/24/25 07/25/25 07/26/25 23:59 23:59 23:59 Intake Total 2048.19 / 2065.59 1140.47 / 1140.47 394.25 / 394.25 Output Total 735 / 735 1200 / 1400 275 / 275 Balance 1313.19 / 1330.59 -59.53 / -259.53 119.25 / 119.25 Lab / Micro Data Attestation: I reviewed the patient's lab results. 07/26/25 05:33 07/26/25 05:33 Labs: Laboratory Results - last 24 hr 07/25/25 06:41: POC Glucose 183 H 07/25/25 08:15: APTT 63.1 H 07/25/25 11:20: POC Glucose 156 H 07/25/25 14:05: APTT 73.9 H 07/25/25 17:24: POC Glucose 141 H 07/26/25 00:13: POC Glucose 163 H 07/26/25 05:33: WBC 11.6 H, RBC 3.08 L, Hgb 9.3 L, Hct 28.9 L, MCV 93.8, MCH 30.2, MCHC 32.2, RDW Std Deviation 46.2 H, RDW Coeff of Tessa 13.4, Plt Count 337, MPV 9.7, Neut % (Auto) Not Reportable, Absolute Neuts (auto) 9.9 H, Absolute Lymphs (auto) 0.93, Total Counted 100, Neutrophils % (Manual) 85 H, Lymphocytes % (Manual) 8 L, Monocytes % (Manual) 5, Metamyelocytes % 1, Myelocytes % 1 H, Platelet Estimate ADEQUATE, Anisocytosis 1+, Tear Drop Cells RARE, Ovalocytes 2+, APTT 93.9 H*, Sodium 138, Potassium 4.7, Chloride 106, Carbon Dioxide 17.7 L, Anion Gap 14, BUN 83 H, Creatinine 2.42 H, Estim Creat Clear Calc 21.15 L, Est GFR (MDRD) Non-Af 20 L, BUN/Creatinine Ratio 34.4 H, Glucose 185 H, Calcium 7.9 Micro: Microbiology 07/22/25 22:05 Sputum, Induced/Lukens Gram Stain - Final 07/22/25 22:05 Sputum, Induced/Lukens Respiratory Culture - Final Mixed normal respiratory michelle. No Streptococcus pneumoniae, beta-hemolytic Streptococcus or Staphylococcus aureus isolated. 07/22/25 12:32 Blood Culture (Wb) - Anticubital Left Blood Culture - Preliminary No growth in 48 hours. 07/22/25 12:32 Blood Culture (Wb) - Anticubital Right Blood Culture - Preliminary No growth in 48 hours. 07/22/25 13:09 Urine, Catheterized Urine Culture - Final Culture exhibits no growth. 07/22/25 20:49 Mucosa - Nasopharyngeal Respiratory Panel (PCR) - Final 07/22/25 12:30 Mucosa - Nose SARS-CoV-2, Influenza & RSV (PCR) - Final ABG Data ABG results: ABG 07/25/25 05:58 Specimen Type ART Sample Site R Radial pH 7.48 H Bicarbonate Actual 20.4 L Total CO2 21 Base Excess -3 L O2 Saturation 99 O2 % 30.0 ABG pCO2 27.1 L ABG pO2 118 H Ed Test Positive Respiration Rate 16 O2 Delivery Device Adult Vent Vent Mode AC Tidal Volume 400.0 POC PEEP 5 Radiography Diagnostic Testing: Radiology Impression Chest X-Ray 07/25/25 05:05 IMPRESSION: Tubes and lines in position. There is cardiomegaly with central vascular congestion and congestive changes. Reading [facility] Physical Exam Const Constitutional Narrative: Intubated, sedated and mechanically ventilated. HEENT normocephalic and head/scalp atraumatic Mouth: endotracheal tube in place and OG tube in place Eyes EOMs intact bilaterally and conjunctivae normal Neck supple General: trachea midline Chest inspection of chest normal Resp Auscultation: diminished lung sounds; Negative for rales, rhonchi or wheezes Cardio S1 normal heart sound and S2 normal heart sound Rate: tachycardic Rhythm: abnormal rhythm GI normal to inspection, nondistended, normoactive bowel sounds Extremity no clubbing, cyanosis or edema Skin no rashes or lesions noted Neuro Sensorium / Orientation: sedated on vent Charges/Coding Procedures Hospitalists Procedures: 27421 Critical Care 1st Hr
[2025-07-26] MEDS: Chlorhexidine 15 ML PO ×2 (08:01→20:46)
[2025-07-26] MEDS: CHLORHEXIDINE GLUC 2% CLOTH 1 EACH TOWELETTE TOPICAL (08:27)
[2025-07-26] MEDS: Insulin Glargine-YFGN 100 UNIT/ML Pen 25 UNIT SC (09:37)
[2025-07-26] MEDS: Pantoprazole Sodium 40 MG in 0.9% Normal Saline (100mL MB+) 100 ML 300 MG IV (10:21)
[2025-07-26] MEDS: Propofol 10MG/Ml 1,000 MG/100 ML Bottle 10.2 MG CONT INF ×2 (13:43→20:43)
--- NOTE | 2025-07-26 15:04 | NURSING ---
Dr. Nguyen at bedside for EGD, order for reglan 10 mg IV x1 to be given now. Fentanyl increased during procedure due to elevated CPOT score. See med titrations.
--- NOTE | 2025-07-26 15:15 | EGD_PTH ---
PATIENT: WING LIN LOC: [facility] U#:[id number] AGE/SX: 80/F ROOM: [facility] RE07/22/[address]: Dr. Antoni Argueta DO : 1945 BED: 1 DIS: 08/05/2025 SPEC #: [id number] RECD: 07/27/25 07:38 STATUS: [facility] REQ #: [id number] WILLIAM: 07/26/25 15:[address]: Kamron Nguyen DEPT: SURGICAL PATHOLOGY RECD BY: Jerardo Ashley ENTERED: 07/27/25 10:15 SP TYPE: EGD BIOPSY OTHR DR: MD Dr. Ryan Calero MD Dr. Alexander Mosteller, DO Dr. Bruce Arthur, MD Dr. Derek Brown, DO Dr. David Kittoe, MD Dr. David P Myers, MD Dr. Edward Matheis, MD Dr. Gautam Baskaran, MD Dr. Yordanos Habtegebriel, MD Dr. Hemant Dand, MD Dr. Jose Ochoa, MD Dr. Justin Wong, MD Dr. Kimber Foust, MD Dr. Kathryn Lee, DO MD Dr. Catherine Centeno MD Dr. Prakash Chand, MD Dr. Pritam Ghosh, MD Dr. Pavan Irukulla, MD Dr. Saad Farooqi, MD Dr. Sukhdeep Dhesi, MD Dr. Yoan Harrison Dr., MD Dr. Timothy Fernstrom, DO MD Dr. Georges Felton MD Heather Evans, TUBE MOLDER FIBERGLASS-C Karlee Rodriguez, TUBE MOLDER FIBERGLASS-C TAYLORLILI DANIELLE PA Tissues: A - Esophagus, NOS Procedures: Surgery Specimen Level IV HEADER OPERATION: EGD with dilation in ICU, foreign body removal, biopsy PRE-OP DIAGNOSIS: Dysphagia, aspiration pneumonia TISSUE SUBMITTED: A- Distal esophagus biopsy MICROSCOPIC DIAGNOSIS A. Distal esophagus, biopsy: * Squamous mucosa negative for eosinophils. * Columnar mucosa negative for goblet cell metaplasia. MICROSCOPIC DESCRIPTION Slides are reviewed. GROSS DESCRIPTION A. Received in fixative is one container labeled with the patient's name and designated Distal esophagus biopsy. The specimen consists of three irregular fragments of batista tissue, each measuring 0.3 cm. The specimen is totally submitted in one cassette. NM 07/27/2025 CPT:15870
--- NOTE | 2025-07-26 15:56 | OP.PROVAT_ITS ---
07/26/2025 Federica Britt Re : Upper GI endoscopy procedure for Martha Johnson Dear Adam This procedure was performed on Saturday, July 26, 2025. My impressions and recommendations are as follows: Impressions : - Food in the esophagus. Removal was successful. - Benign-appearing esophageal stenosis. Dilated. - Abnormal esophageal motility, consistent with achalasia. - No gross lesions in the entire stomach. - Gastric stenosis was found at the pylorus. - No gross lesions in the duodenal bulb. Recommendations : - Return patient to ICU for ongoing care. - Resume previous diet. - Continue present medications. - Await pathology results. - Repeat upper endoscopy for retreatment. My findings are described in the full procedure note, which is enclosed. If I can be of further assistance, please feel free to contact me at . Sincerely, Kamron Nguyen, 07/26/2025 3:55:44 PM This report has been signed electronically.
--- NOTE | 2025-07-26 15:56 | OP.EGD_ITS ---
Patient Name: Martha Johnson Procedure Date: 07/26/2025 2:50 PM Date of : 1945 Age: 80 Procedure: Upper GI endoscopy Indications: Dysphagia Providers: Kamron Nguyen DO Medicines: Propofol total dose 200 mg IV Patient Profile: This is a 80 year old female. Refer to note in patient chart for documentation of history and physical. Patient has symptoms of dysphagia with both liquids and solids, acute regurgitation and acute vomiting. Complications: No immediate complications. Procedure: Pre-Anesthesia Assessment: - Prior to the procedure, a History and Physical was performed, and patient medications and allergies were reviewed. The patient is competent. The risks and benefits of the procedure and the sedation options and risks were discussed with the patient. All questions were answered and informed consent was obtained. Patient identification and proposed procedure were verified by the physician in the pre-procedure area. Mental Status Examination: alert and oriented. Airway Examination: normal oropharyngeal airway and neck mobility. Respiratory Examination: clear to auscultation. CV Examination: normal. Prophylactic Antibiotics: The patient does not require prophylactic antibiotics. Prior Anticoagulants: The patient has taken no anticoagulant or antiplatelet agents except for NSAID medication. ASA Grade Assessment: II - A patient with mild systemic disease. After reviewing the risks and benefits, the patient was deemed in satisfactory condition to undergo the procedure. The anesthesia plan was to use moderate sedation / analgesia (conscious sedation). Immediately prior to administration of medications, the patient was re-assessed for adequacy to receive sedatives. The heart rate, respiratory rate, oxygen saturations, blood pressure, adequacy of pulmonary ventilation, and response to care were monitored throughout the procedure. The physical status of the patient was re-assessed after the procedure. After obtaining informed consent, the endoscope was passed under direct vision. Throughout the procedure, the patient's blood pressure, pulse, and oxygen saturations were monitored continuously. The gastroscope was introduced through the mouth, and advanced to the third part of the duodenum. Small bowel enteroscopy was deemed necessary. The upper GI endoscopy was accomplished without difficulty. The patient tolerated the procedure well. Moderate Sedation: Moderate (conscious) sedation was personally administered by the endoscopist. The following parameters were monitored: oxygen saturation, heart rate, blood pressure, respiratory rate, EKG, adequacy of pulmonary ventilation, and response to care. Scope In: 2:59:29 PM Scope Out: 3:21:30 PM Total Procedure Duration Time 0 hours 22 minutes 1 second Findings: Food was found in the entire esophagus. Removal was accomplished with a Gonzalez net. One benign-appearing, intrinsic severe stenosis was found. This stenosis measured 6 cm (in length). The stenosis was traversed after dilation. A guidewire was placed and the scope was withdrawn. Dilation was performed with a Savary dilator with no resistance at 60 Fr. The dilation site was examined and showed moderate improvement in luminal narrowing. Estimated blood loss was minimal. Biopsies were taken with a cold forceps for histology. Verification of patient identification for the specimen was done. Estimated blood loss was minimal. Abnormal motility was noted in the lower third of the esophagus. The cricopharyngeus was abnormal. There is a decrease in motility of the esophageal body. The distal esophagus/lower esophageal sphincter is spastic, but gives up passage to the endoscope. No gross lesions were noted in the entire examined stomach. A 14 Fr orogastric tube was placed through the nares into the esophagus. Under endoscopic guidance, the tube was advanced into the stomach. Placement was confirmed by scope visualization. A benign-appearing, intrinsic moderate stenosis was found at the pylorus. This was traversed. No gross lesions were noted in the duodenal bulb. Impression: - Food in the esophagus. Removal was successful. - Benign-appearing esophageal stenosis. Dilated. - Abnormal esophageal motility, consistent with achalasia. - No gross lesions in the entire stomach. - Gastric stenosis was found at the pylorus. - No gross lesions in the duodenal bulb. Recommendation: - Return patient to ICU for ongoing care. - Resume previous diet. - Continue present medications. - Await pathology results. - Repeat upper endoscopy for retreatment. Procedure Code(s): --- Professional --- 75206, Small intestinal endoscopy, enteroscopy beyond second portion of duodenum, not including ileum; with removal of foreign body(s) 13526, 59,51, Esophagogastroduodenoscopy, flexible, transoral; with insertion of guide wire followed by passage of dilator(s) through esophagus over guide wire 77736, 59, Small intestinal endoscopy, enteroscopy beyond second portion of duodenum, not including ileum; with biopsy, single or multiple 52311, Unlisted procedure, small intestine CPT copyright 2022 [employer]. All rights reserved. The codes documented in this report are preliminary and upon oil developer review may be revised to meet current compliance requirements. Kamron Nguyen DO 07/26/2025 3:55:44 PM This report has been signed electronically. Number of Addenda: 0 Note Initiated On: 07/26/2025 2:50 PM
[2025-07-26] MEDS: Ampicillin/Sulbactam 3 GM in 0.9% Normal Saline (100mL MB+) 100 ML IV (21:39)
[2025-07-26] MEDS: 0.9% Saline Lock 10 ML Syringe IV (21:46)
[2025-07-27] VITALS (33 sets, daily range): BP systolic 90–161; BP diastolic 53–107; PULSE 110–169; RESP 12–30; TEMP 36.8–37.4; O2SAT 91–96
[2025-07-27] MEDS: 0.9% Saline Lock 10 ML Syringe IV ×3 (00:24→14:14)
--- NOTE | 2025-07-27 00:45 | NURSING ---
PT midnight BG check resulted at 51. This RN then administered D10 250ml bolus per Doris Jeffries NP. This RN rechecked BG 15 minutes after bolus which resulted in 124.
[2025-07-27] MEDS: Ipratropium 0.5 MG/2.5 ML SOLUTION INHALATION ×4 (01:10→19:11)
[2025-07-27] MEDS: CHLORHEXIDINE GLUC 2% CLOTH 1 EACH TOWELETTE TOPICAL (04:16)
[2025-07-27] MEDS: Propofol 10MG/Ml 1,000 MG/100 ML Bottle 10.2 MG CONT INF (04:16)
[2025-07-27] MEDS: Amiodarone 360 MG in Dextrose 5% Viaflo Bag 192.8 ML 16.7 MG CONT INF ×2 (05:10→18:23)
[2025-07-27 05:51] LABS: Hematocrit 29.8 % (37-47); Hemoglobin 9.7 g/dL (12.0-15.0); Mean Corp Hgb Conc 32.6 g/dL (32-36); Mean Corpuscular Volume 93.1 fL (81-99); Mean Platelet Vol. 9.5 fl (6.2-12.0); POSITIVE COUNT YES; POSITIVE MORPHOLOGY YES; Platelet Count 359 K/mm3 (150-450); RBC Distribution Width CV 13.5 % (11.6-14.6); RBC Distribution Width SD 46.5 fl (35.1-43.9); Red Blood Count 3.20 M/mm3 (4.2-5.4); White Blood Count 12.9 K/mm3 (4.4-11.0)
[2025-07-27 05:52] LABS: Differential Indicated MANUAL DIFF
[2025-07-27 06:04] LABS: Partial Thromboplast Time 25.8 Seconds (24.1-36.2)
[2025-07-27 06:07] LABS: Anion Gap 13 (5-15); BUN 92 mg/dL (4-19); BUN/Creat Ratio 35.3 RATIO (10-20); Calcium,Total 7.9 mg/dL (7.6-11.0); Carbon Dioxide 18.2 mmol/L (21.0-32.0); Chloride 104 mmol/L (98-108); Estimated Creatinine Clearance 19.94 ml/min (50-250); Glucose 179 mg/dL (70-99); Potassium 3.9 mmol/L (3.3-5.1)
[2025-07-27 07:18] LABS: Neutrophil-Segmented 74 % (47-70); Red Cell Morphology NORM C+C NORMAL (NORM C&C); Total Cells Counted 100 (MANUAL DIFF)
--- NOTE | 2025-07-27 07:22 | PCM.PN.HOSP ---
Reason for Visit Chief Complaint: Worsening shortness of breath Subjective Subjective Patient underwent EGD findings and procedures performed as documented below. Patient currently awake on the vent and undergoing weaning trial Objective Data Objective Data Vital Signs: Vital Signs Temp Pulse Resp BP Pulse Ox O2 Del Method O2 Flow Rate 98.7 F 133 H 17 149/101 H 94 Mechanical Ventilator 4 07/27/25 07:00 07/27/25 07:00 07/27/25 07:00 07/27/25 07:00 07/27/25 07:00 07/27/25 07:00 07/22/25 21:16 FiO2 30 07/27/25 07:00 Oxygen Flow Rate (L/min) 4 Oxygen Delivery Method Mechanical Ventilator Weight: 86.9 kg Body Mass Index (BMI) 30.0 Intake & Output: Intake and Output for Last 24 Hours 07/25/25 07/26/25 07/27/25 23:59 23:59 23:59 Intake Total 1140.47 / 1199.87 1197.05 / 1212.25 815.37 / 815.37 Output Total 1200 / 1400 650 / 650 Balance -59.53 / -200.13 547.05 / 562.25 815.37 / 815.37 Lab / Micro Data 07/27/25 05:40 07/27/25 05:40 Labs: Laboratory Results - last 24 hr 07/26/25 09:24: POC Glucose 176 H 07/26/25 11:28: POC Glucose 174 H 07/26/25 17:42: POC Glucose 124 H 07/27/25 00:01: POC Glucose 51 L 07/27/25 00:45: POC Glucose 123 H 07/27/25 05:13: POC Glucose 53 L 07/27/25 05:40: WBC 12.9 H, RBC 3.20 L, Hgb 9.7 L, Hct 29.8 L, MCV 93.1, MCH 30.3, MCHC 32.6, RDW Std Deviation 46.5 H, RDW Coeff of Tessa 13.5, Plt Count 359, MPV 9.5, Neut % (Auto) Not Reportable, Absolute Neuts (auto) 9.5 H, Absolute Lymphs (auto) 2.30, Total Counted 100, Neutrophils % (Manual) 74 H, Lymphocytes % (Manual) 18 L, Monocytes % (Manual) 3, Metamyelocytes % 4 H, Myelocytes % 1 H, Diff Path Review February, Platelet Estimate ADEQUATE, RBC Morphology NORM C+C, APTT 25.8, Sodium 135, Potassium 3.9, Chloride 104, Carbon Dioxide 18.2 L, Anion Gap 13, BUN 92 H, Creatinine 2.59 H, Estim Creat Clear Calc 19.94 L, Est GFR (MDRD) Non-Af 18 L, BUN/Creatinine Ratio 35.3 H, Glucose 179 H, Calcium 7.9 07/27/25 05:48: POC Glucose 147 H Micro: Microbiology 07/22/25 22:05 Sputum, Induced/Lukens Gram Stain - Final 07/22/25 22:05 Sputum, Induced/Lukens Respiratory Culture - Final Mixed normal respiratory michelle. No Streptococcus pneumoniae, beta-hemolytic Streptococcus or Staphylococcus aureus isolated. 07/22/25 12:32 Blood Culture (Wb) - Anticubital Left Blood Culture - Preliminary No growth in 48 hours. 07/22/25 12:32 Blood Culture (Wb) - Anticubital Right Blood Culture - Preliminary No growth in 48 hours. 07/22/25 13:09 Urine, Catheterized Urine Culture - Final Culture exhibits no growth. 07/22/25 20:49 Mucosa - Nasopharyngeal Respiratory Panel (PCR) - Final 07/22/25 12:30 Mucosa - Nose SARS-CoV-2, Influenza & RSV (PCR) - Final Physical Exam Narrative GENERAL: Awake on the vent on the vent HEENT: Atraumatic; ET tube in place EYES; Anicteric, Normal Conjunctiva NECK; supple, normal thyroid, RESPIRATORY: Diminished to auscultation CARDIOVASCULAR: Regular S1 S2, GI: soft, normoactive bowel sounds, : No Renal angle tenderness; EXTREMITIES: No edema, no clubbing, MUSCULOSKELETAL: no muscle wasting NEURO: Awake on the vent able to follow simple commands SKIN: Excoriations of lower extremities Assessment & Plan Assessment/Plan (1) Acute on chronic respiratory failure with hypoxia and hypercapnia: (2) Dysphagia: (3) Esophageal dysmotility: (4) Paroxysmal atrial fibrillation with RVR: PLAN: Plan Patient is a 80-year-old lady who presented to the emergency department in respiratory distress. Was initially placed on BiPAP however clinical condition deteriorated resulting in patient being intubated and admitted to the intensive care unit. CT of the scan showed dilated esophagus with air-fluid levels GI subsequently consulted 1. Acute on chronic hypoxic and hypercapnic respiratory failure ? Multifactorial including aspiration pneumonia as well as congestive heart failure. Patient was initially managed with noninvasive ventilation BiPAP however respiratory status continued to deteriorate resulting in patient being intubated on 07/22/2025. ? 07/26/2025 patient remains awake on the vent with plans to undergo weaning trial following her EGD ? 07/27/2025; awake on the vent currently undergoing weaning trial 2. Suspected aspiration pneumonia based on CT finding of severely dilated esophagus. CT again demonstrated airspace opacities in lower lungs consistent with pneumonia. Patient remains on Zosyn 3. Dilated esophagus ? With concern for achalasia. CT obtained on 07/22/2025 demonstrated dilated esophagus with ingested material consistent with gastroesophageal reflux. Patient is on PPI consult placed to GI plan is for patient to undergo endoscopy with intervention by Dr. Nguyen on 07/25/2025 ? 07/26/2025; patient EGD scheduled for this a.m. ? 07/27/2025; patient underwent EGD findings and procedures performed as below Impressions : - Food in the esophagus. Removal was successful. - Benign-appearing esophageal stenosis. Dilated. - Abnormal esophageal motility, consistent with achalasia. - No gross lesions in the entire stomach. - Gastric stenosis was found at the pylorus. - No gross lesions in the duodenal bulb. 4. Acute congestive heart failure with preserved ejection fraction ? Patient was managed with diuretic therapy with furosemide echo ordered today show Mild concentric left ventricular hypertrophy. The left ventricular ejection fraction is 70 %. Stage 1 diastolic dysfunction. The left atrium is moderately enlarged. Mild mitral annular calcification. 5. New onset A-fib with RVR - Heart rates in the 140s to 160s patient was started on amiodarone drip. Patient was placed on systemic anticoagulation with heparin with plans to transition to apixaban on discharge ? 07/27/2025; patient heart rate control still not optimal remains on amiodarone drip. Plan is to transition to p.o. once patient comes off the vent 6. Anemia ? Secondary to chronic disorder monitoring H&H and transfuse if patient becomes symptomatic or hemoglobin falls below 7 7. Acute kidney injury ? Superimposed on chronic kidney disease stage III. Baseline creatinine 1.88 creatinine on admission was 2.04. Patient creatinine peaked at 2.57. Kidney ultrasound did not show any abnormalities. Consult placed to nephrology 8. Acute on chronic debility with recent mechanical fall - Patient lives alone at baseline but daughter lives close; Patient has had issues with movement since her fall 2 weeks ago; PT/OT is consulted and will work with patient more when she is extubated - Case management/social work consultation for assistance with discharge planning 9. Chronic hypoxic respiratory failure secondary to COPD -Baseline dependence on 4 L continuous. 10. History of stroke/TIAs ? Patient is on antiplatelet therapy with aspirin 11. Dyslipidemia ?Patient is on statin therapy, continued at home dose 12. Essential hypertension ? Patient blood pressure control remains stable 13. Diabetes mellitus type 2 ? Patient oral hypoglycemic agent held on admission placed on long-acting insulin with sliding scale coverage 14. Depression with anxiety ? Plan is to resume home meds once patient has been extubated 15. DVT prophylaxis ? Patient is on heparin Time spent in the patient's overall evaluation,decision-making process, review of diagnostic data, adjustment of management, discussion with other providers, nursing nursing and ancillary staff involved in patient's care documentation, 52 Minutes Charges/Coding Visit Charges Inpatient E&M: 98007 Subs Hosp L3
--- NOTE | 2025-07-27 07:27 | PN.CC_ITS ---
Assessment & Plan Assessment/Plan (1) Acute on chronic respiratory failure with hypoxia and hypercapnia: PLAN: Plan RECOMMENDATIONS: 1. Proceed with a trial of extubation this morning. 2. Once extubated, wean supplemental oxygen to maintain saturations at or above 90%. 3. Continue scheduled bronchodilators. Okay to stop corticosteroids at this time. 4. Antibiotics to complete 7 days of therapy. 5. Speech therapy to evaluate the patient once extubated. 6. Continue amiodarone. 7. Encourage incentive spirometer use and mobilize patient as tolerated. IMPRESSIONS: 1. Acute on chronic combined respiratory failure Most likely related to COPD exacerbation in the setting of aspiration pneumonia. The patient is at high risk for further aspiration events given her history of dysphagia and concern for achalasia. The patient underwent upper endoscopy on July 26 and is status post esophageal dilation due to stenosis. The patient has improved from a respiratory perspective with antimicrobials, bronchodilators and steroids. She completed a spontaneous breathing trial this morning and will therefore be extubated. Once extubated, wean supplemental oxygen to maintain saturations at or above 90%. The patient will be continued on antibiotics to complete 7 days of therapy. Corticosteroids will be discontinued today. Recommend speech therapy evaluate the patient prior to advancement of diet, following extubation. 2. History of dysphagia/GERD/questionable achalasia and esophageal stenosis status post dilation Gastroenterology following to assist with medical management. 3. Atrial fibrillation with RVR Continue heparin infusion and amiodarone. Echocardiogram revealed intact, normal systolic function. 4. History of chronic kidney disease/anemia/allergic rhinitis/history of CVA/hypertension/diabetes mellitus/tobacco dependency Complicates care, management, recovery and prognosis. Continue supportive measures as noted above. PT/OT to work with the patient. TIME: 35 minutes of critical care time, independent of procedures, was spent addressing the patient's acute on chronic combined respiratory failure, history of dysphagia, atrial fibrillation with RVR, review of all data and collaboration with the care team. Subjective Subjective The patient was seen and examined at the bedside this morning. Events from the last 24 hours have been reviewed. The patient is currently afebrile, hemodynamically stable and maintaining appropriate oxygen saturations on assist- control mode of mechanical ventilation with an FiO2 requirement of 30% and PEEP of 5. The patient tolerated endoscopic evaluation yesterday without issue. She remains in atrial fibrillation with RVR. The patient is currently documented to be overall net +1.6 L for the hospitalization. White blood cell count was noted to be 13,000. Hemoglobin and platelet count are stable. Creatinine is elevated at 2.59. The patient was able to complete a spontaneous awakening trial this morning. She is alert and able to follow commands appropriately. Accordingly, the patient completed a spontaneous breathing trial without complication. Therefore, the patient was extubated. Objective Data Objective Data The patient's most recent lab work, culture data and imaging studies have all been personally reviewed. Surface echocardiogram demonstrated mild concentric LVH with an ejection fraction of 70% and stage I diastolic dysfunction. Infectious workup has been unrevealing to date. Vital Signs: Vital Signs Temp Pulse Resp BP Pulse Ox O2 Del Method O2 Flow Rate 98.7 F 121 H 18 149/101 H 94 Mechanical Ventilator 4 07/27/25 07:00 07/27/25 07:22 07/27/25 07:22 07/27/25 07:00 07/27/25 07:22 07/27/25 07:22 07/22/25 21:16 FiO2 30 07/27/25 07:22 Oxygen Flow Rate (L/min) 4 Oxygen Delivery Method Mechanical Ventilator Weight: 191 lb 9.307 oz Body Mass Index (BMI) 30.0 Intake & Output: Intake and Output for Last 24 Hours 07/25/25 07/26/25 07/27/25 23:59 23:59 23:59 Intake Total 1140.47 / 1199.87 1197.05 / 1212.25 815.37 / 815.37 Output Total 1200 / 1400 650 / 650 Balance -59.53 / -200.13 547.05 / 562.25 815.37 / 815.37 Lab / Micro Data Attestation: I reviewed the patient's lab results. 07/27/25 05:40 07/27/25 05:40 Labs: Laboratory Results - last 24 hr 07/26/25 09:24: POC Glucose 176 H 07/26/25 11:28: POC Glucose 174 H 07/26/25 17:42: POC Glucose 124 H 07/27/25 00:01: POC Glucose 51 L 07/27/25 00:45: POC Glucose 123 H 07/27/25 05:13: POC Glucose 53 L 07/27/25 05:40: WBC 12.9 H, RBC 3.20 L, Hgb 9.7 L, Hct 29.8 L, MCV 93.1, MCH 30.3, MCHC 32.6, RDW Std Deviation 46.5 H, RDW Coeff of Tessa 13.5, Plt Count 359, MPV 9.5, Neut % (Auto) Not Reportable, Absolute Neuts (auto) 9.5 H, Absolute Lymphs (auto) 2.30, Total Counted 100, Neutrophils % (Manual) 74 H, Lymphocytes % (Manual) 18 L, Monocytes % (Manual) 3, Metamyelocytes % 4 H, Myelocytes % 1 H, Diff Path Review February, Platelet Estimate ADEQUATE, RBC Morphology NORM C+C, APTT 25.8, Sodium 135, Potassium 3.9, Chloride 104, Carbon Dioxide 18.2 L, Anion Gap 13, BUN 92 H, Creatinine 2.59 H, Estim Creat Clear Calc 19.94 L, Est GFR (MDRD) Non-Af 18 L, BUN/Creatinine Ratio 35.3 H, Glucose 179 H, Calcium 7.9 07/27/25 05:48: POC Glucose 147 H Micro: Microbiology 07/22/25 22:05 Sputum, Induced/Lukens Gram Stain - Final 07/22/25 22:05 Sputum, Induced/Lukens Respiratory Culture - Final Mixed normal respiratory michelle. No Streptococcus pneumoniae, beta-hemolytic Streptococcus or Staphylococcus aureus isolated. 07/22/25 12:32 Blood Culture (Wb) - Anticubital Left Blood Culture - Preliminary No growth in 48 hours. 07/22/25 12:32 Blood Culture (Wb) - Anticubital Right Blood Culture - Preliminary No growth in 48 hours. 07/22/25 13:09 Urine, Catheterized Urine Culture - Final Culture exhibits no growth. 07/22/25 20:49 Mucosa - Nasopharyngeal Respiratory Panel (PCR) - Final 07/22/25 12:30 Mucosa - Nose SARS-CoV-2, Influenza & RSV (PCR) - Final ABG Data ABG results: ABG 07/25/25 05:58 Specimen Type ART Sample Site R Radial pH 7.48 H Bicarbonate Actual 20.4 L Total CO2 21 Base Excess -3 L O2 Saturation 99 O2 % 30.0 ABG pCO2 27.1 L ABG pO2 118 H Ed Test Positive Respiration Rate 16 O2 Delivery Device Adult Vent Vent Mode AC Tidal Volume 400.0 POC PEEP 5 Radiography Diagnostic Testing: Radiology Impression Chest X-Ray 07/25/25 05:05 IMPRESSION: Tubes and lines in position. There is cardiomegaly with central vascular congestion and congestive changes. Reading Location: [facility] Physical Exam Const Constitutional Narrative: Currently tolerating spontaneous mode of mechanical ventilation. General Appearance: patient mechanically ventilated HEENT normocephalic and head/scalp atraumatic Mouth: endotracheal tube in place and OG tube in place Eyes EOMs intact bilaterally and conjunctivae normal Neck supple General: trachea midline Chest inspection of chest normal Resp Auscultation: diminished lung sounds; Negative for rales, rhonchi or wheezes Cardio S1 normal heart sound and S2 normal heart sound Rate: tachycardic Rhythm: abnormal rhythm GI normal to inspection, nondistended, normoactive bowel sounds Extremity no clubbing, cyanosis or edema Skin no rashes or lesions noted Neuro Neuro Narrative: Alert and able to follow simple commands appropriately. Charges/Coding Procedures Hospitalists Procedures: 53504 Critical Care 1st Hr
[2025-07-27] MEDS: buPROPion (SR) 150 MG Tablet.SA PO (07:50)
[2025-07-27] MEDS: Cholecalciferol (Vit D3) 125 MCG CAPSULE (5,000 UNITS) PO (07:50)
--- NOTE | 2025-07-27 08:51 | NURSING ---
extubated at 08:40am By Felipa CHAPMAN. Tolerated well and is on 4L NC.
[2025-07-27] MEDS: Pantoprazole Sodium 40 MG in 0.9% Normal Saline (100mL MB+) 100 ML 300 MG IV (11:40)
[2025-07-27] MEDS: 0.9% Normal Saline (250mL Bag) 250 ML 15 ML IV (11:42)
[2025-07-27] MEDS: Ampicillin/Sulbactam 3 GM in 0.9% Normal Saline (100mL MB+) 100 ML IV ×2 (12:10→21:00)
[2025-07-27 13:19] LABS: Partial Thromboplast Time 33.4 Seconds (24.1-36.2)
[2025-07-27] MEDS: Heparin Nomogram Adjustment 5,000 UNIT/ML VIAL IV (14:14)
[2025-07-27] MEDS: Dext 5%-0.45% NS 1,000 ML 75 ML IV (14:18)
--- NOTE | 2025-07-27 16:44 | CASEMGMT ---
MIRZA HODGES NOTE: Pt 2 assist w/therapy today. MIRZA HODGES spoke w/pt's daughter, Abi, and she was made aware. She states she was in to see her mom today, but was not in the room when therapy worked w/her. MIRZA HODGES suggested she observe pt working w/therapy tomorrow to see how she is doing to help determine if she feels she can manage/take care of pt safely @ home. She states she plans to come in @ 9 AM tomorrow & would like to do that. She confirms she originally stated she would like to take pt home @ discharge, but states she has bad neuropathy in my feet and states it can be difficult for her at times. She states she may consider pt going to TCU @ discharge. Plan: MARTINA. Suzette LOVE RN, CM
--- NOTE | 2025-07-27 19:20 | PCM.HOSP.N ---
Hospitalist Note Due to increased incidences of hypoglycemia, changed fingerstick glucometer checks to q4h while strict NPO. Continue D5 1/2NS for IVF.
[2025-07-27 20:42] LABS: Partial Thromboplast Time 61.3 Seconds (24.1-36.2)
[2025-07-27 20:50] LABS: Glucose 73 mg/dL (70-99)
[2025-07-28] VITALS (29 sets, daily range): BP systolic 129–179; BP diastolic 64–139; PULSE 105–163; RESP 12–19; TEMP 36.7–37.5; O2SAT 91–99; BMI 29.8
[2025-07-28] MEDS: Ipratropium 0.5 MG/2.5 ML SOLUTION INHALATION ×3 (01:41→18:33)
[2025-07-28] MEDS: Dext 5%-0.45% NS 1,000 ML 75 ML IV ×2 (03:50→16:29)
[2025-07-28] MEDS: HEPARIN/D5w 25,000 UNITS 25,000 UNITS/250 ML IV.SOLN. 8.3 UNITS CONT INF (04:05)
[2025-07-28 04:56] LABS: Hematocrit 32.7 % (37-47); Hemoglobin 10.4 g/dL (12.0-15.0); Mean Corp Hgb Conc 31.8 g/dL (32-36); Mean Corpuscular Volume 95.3 fL (81-99); Mean Platelet Vol. 9.6 fl (6.2-12.0); POSITIVE COUNT YES; POSITIVE MORPHOLOGY YES; Platelet Count 376 K/mm3 (150-450); RBC Distribution Width CV 13.7 % (11.6-14.6); RBC Distribution Width SD 47.8 fl (35.1-43.9); Red Blood Count 3.43 M/mm3 (4.2-5.4); White Blood Count 19.3 K/mm3 (4.4-11.0)
[2025-07-28 05:01] LABS: Differential Indicated MANUAL DIFF
[2025-07-28 05:14] LABS: Anion Gap 15 (5-15); BUN 78 mg/dL (4-19); BUN/Creat Ratio 33.2 RATIO (10-20); Calcium,Total 7.9 mg/dL (7.6-11.0); Carbon Dioxide 15.3 mmol/L (21.0-32.0); Chloride 104 mmol/L (98-108); Estimated Creatinine Clearance 22.07 ml/min (50-250); Glucose 214 mg/dL (70-99); Potassium 3.9 mmol/L (3.3-5.1)
[2025-07-28 05:59] LABS: Partial Thromboplast Time 95.2 Seconds (24.1-36.2)
[2025-07-28 06:22] LABS: Neutrophil-Band 4 % (0-5); Neutrophil-Segmented 84 % (47-70); Total Cells Counted 100 (MANUAL DIFF)
[2025-07-28 06:26] LABS: Anisocytosis 1+; Polychromasia 1+; Vacuolated Cells 1+
[2025-07-28] MEDS: Amiodarone 360 MG in Dextrose 5% Viaflo Bag 192.8 ML 16.7 MG CONT INF ×2 (07:01→17:48)
--- NOTE | 2025-07-28 07:14 | PCM.PN.HOSP ---
Reason for Visit Chief Complaint: Worsening shortness of breath Subjective Subjective Patient was successfully weaned off the vent the day prior. Plan is for patient to undergo speech and swallow eval prior to resumption of oral diet Objective Data Objective Data Vital Signs: Vital Signs Temp Pulse Resp BP Pulse Ox O2 Del Method O2 Flow Rate 98.0 F 127 H 17 157/87 H 93 Nasal Cannula 4 07/28/25 02:00 07/28/25 06:00 07/28/25 06:00 07/28/25 06:00 07/28/25 06:00 07/28/25 06:00 07/28/25 06:00 FiO2 30 07/27/25 08:00 Oxygen Flow Rate (L/min) 4 Oxygen Delivery Method Nasal Cannula Weight: 86.2 kg Body Mass Index (BMI) 29.8 Intake & Output: Intake and Output for Last 24 Hours 07/26/25 07/27/25 07/28/25 23:59 23:59 23:59 Intake Total 1197.05 / 1212.25 1563.68 / 1563.68 Output Total 650 / 650 475 / 475 1999 / 1999 Balance 547.05 / 562.25 1541.08 / 1541.08 -436.32 / -436.32 Lab / Micro Data 07/28/25 04:44 07/28/25 04:44 Labs: Laboratory Results - last 24 hr 07/27/25 05:40: Absolute Neuts (auto) 9.5 H, Absolute Lymphs (auto) 2.30, Total Counted 100, Neutrophils % (Manual) 74 H, Lymphocytes % (Manual) 18 L, Monocytes % (Manual) 3, Metamyelocytes % 4 H, Myelocytes % 1 H, Diff Path Review February, Platelet Estimate ADEQUATE, RBC Morphology NORM C+C 07/27/25 12:10: POC Glucose 57 L 07/27/25 13:00: APTT 33.4 07/27/25 17:37: POC Glucose 45 L 07/27/25 18:18: POC Glucose 101 07/27/25 20:00: APTT 61.3 H, Glucose 73 07/28/25 00:30: POC Glucose 81 07/28/25 04:44: WBC 19.3 H, RBC 3.43 L, Hgb 10.4 L, Hct 32.7 L, MCV 95.3, MCH 30.3, MCHC 31.8 L, RDW Std Deviation 47.8 H, RDW Coeff of Tessa 13.7, Plt Count 376, MPV 9.6, Neut % (Auto) Not Reportable, Absolute Neuts (auto) 17.0 H, Absolute Lymphs (auto) 0.97, Total Counted 100, Neutrophils % (Manual) 84 H, Band Neutrophils % 4, Lymphocytes % (Manual) 5 L, Monocytes % (Manual) 2, Eosinophils % (Manual) 1, Metamyelocytes % 2 H, Myelocytes % 2 H, Toxic Vacuolation 1+, Platelet Estimate ADEQUATE, Polychromasia 1+, Anisocytosis 1+, Ovalocytes 2+, APTT 95.2 H*, Sodium 134, Potassium 3.9, Chloride 104, Carbon Dioxide 15.3 L, Anion Gap 15, BUN 78 H, Creatinine 2.34 H, Estim Creat Clear Calc 22.07 L, Est GFR (MDRD) Non-Af 21 L, BUN/Creatinine Ratio 33.2 H, Glucose 214 H, Calcium 7.9 07/28/25 06:01: POC Glucose 114 H Micro: Microbiology 07/22/25 12:32 Blood Culture (Wb) - Anticubital Left Blood Culture - Final No growth in 5 days. 07/22/25 12:32 Blood Culture (Wb) - Anticubital Right Blood Culture - Final No growth in 5 days. 07/22/25 22:05 Sputum, Induced/Lukens Gram Stain - Final 07/22/25 22:05 Sputum, Induced/Lukens Respiratory Culture - Final Mixed normal respiratory michelle. No Streptococcus pneumoniae, beta-hemolytic Streptococcus or Staphylococcus aureus isolated. 07/22/25 13:09 Urine, Catheterized Urine Culture - Final Culture exhibits no growth. 07/22/25 20:49 Mucosa - Nasopharyngeal Respiratory Panel (PCR) - Final 07/22/25 12:30 Mucosa - Nose SARS-CoV-2, Influenza & RSV (PCR) - Final Physical Exam Narrative GENERAL: cooperative HEENT: Atraumatic; normocephalic EYES; Anicteric, Normal Conjunctiva NECK; supple, normal thyroid, RESPIRATORY: Diminished to auscultation CARDIOVASCULAR: Regular S1 S2, GI: soft, normoactive bowel sounds, : No Renal angle tenderness; EXTREMITIES: No edema, no clubbing, MUSCULOSKELETAL: no muscle wasting NEURO: Awake; no lateralizing signs. SKIN: Excoriations on lower extremities PSYCH; Flat affect Assessment & Plan Assessment/Plan (1) Acute on chronic respiratory failure with hypoxia and hypercapnia: (2) Dysphagia: (3) Esophageal dysmotility: (4) Paroxysmal atrial fibrillation with RVR: PLAN: Plan Patient is a 80-year-old lady who presented to the emergency department in respiratory distress. Was initially placed on BiPAP however clinical condition deteriorated resulting in patient being intubated and admitted to the intensive care unit. CT of the scan showed dilated esophagus with air-fluid levels GI subsequently consulted 1. Acute on chronic hypoxic and hypercapnic respiratory failure ? Multifactorial including aspiration pneumonia as well as congestive heart failure. Patient was initially managed with noninvasive ventilation BiPAP however respiratory status continued to deteriorate resulting in patient being intubated on 07/22/2025. ? 07/26/2025 patient remains awake on the vent with plans to undergo weaning trial following her EGD ? 07/27/2025; awake on the vent currently undergoing weaning trial ?07/28/2025; patient was assessed with a weaned off the vent the day prior. 2. Suspected aspiration pneumonia based on CT finding of severely dilated esophagus. CT again demonstrated airspace opacities in lower lungs consistent with pneumonia. Patient remains on Zosyn 3. Dilated esophagus ? With concern for achalasia. CT obtained on 07/22/2025 demonstrated dilated esophagus with ingested material consistent with gastroesophageal reflux. Patient is on PPI consult placed to GI plan is for patient to undergo endoscopy with intervention by Dr. Nguyen on 07/25/2025 ? 07/26/2025; patient EGD scheduled for this a.m. ? 07/27/2025; patient underwent EGD findings and procedures performed as below Impressions : - Food in the esophagus. Removal was successful. - Benign-appearing esophageal stenosis. Dilated. - Abnormal esophageal motility, consistent with achalasia. - No gross lesions in the entire stomach. - Gastric stenosis was found at the pylorus. - No gross lesions in the duodenal bulb. 07/28/2025; patient scheduled to undergo speech and swallow eval 4. Acute congestive heart failure with preserved ejection fraction ? Patient was managed with diuretic therapy with furosemide echo ordered today show Mild concentric left ventricular hypertrophy. The left ventricular ejection fraction is 70 %. Stage 1 diastolic dysfunction. The left atrium is moderately enlarged. Mild mitral annular calcification. 5. New onset A-fib with RVR - Heart rates in the 140s to 160s patient was started on amiodarone drip. Patient was placed on systemic anticoagulation with heparin with plans to transition to apixaban on discharge ? 07/27/2025; patient heart rate control still not optimal remains on amiodarone drip. Plan is to transition to p.o. once patient comes off the vent ? 07/28/2025; patient remains on amiodarone drip plan is to transition to p.o. following patient's speech and swallow eval 6. Anemia ? Secondary to chronic disorder monitoring H&H and transfuse if patient becomes symptomatic or hemoglobin falls below 7 7. Acute kidney injury ? Superimposed on chronic kidney disease stage III. Baseline creatinine 1.88 creatinine on admission was 2.04. Patient creatinine peaked at 2.57. Kidney ultrasound did not show any abnormalities. Consult placed to nephrology ? 07/28/2025; patient kidney function remains elevated 8. Acute on chronic debility with recent mechanical fall - Patient lives alone at baseline but daughter lives close; Patient has had issues with movement since her fall 2 weeks ago; PT/OT is consulted and will work with patient more when she is extubated - Case management/social work consultation for assistance with discharge planning 9. Chronic hypoxic respiratory failure secondary to COPD -Baseline dependence on 4 L continuous. 10. History of stroke/TIAs ? Patient is on antiplatelet therapy with aspirin 11. Dyslipidemia ?Patient is on statin therapy, continued at home dose 12. Essential hypertension ? Patient blood pressure control remains stable 13. Diabetes mellitus type 2 ? Patient oral hypoglycemic agent held on admission placed on long-acting insulin with sliding scale coverage 14. Depression with anxiety ? Plan is to resume home meds once patient has been extubated 15. DVT prophylaxis ? Patient is on heparin Time spent in the patient's overall evaluation,decision-making process, review of diagnostic data, adjustment of management, discussion with other providers, nursing nursing and ancillary staff involved in patient's care documentation, 50 Minutes Charges/Coding Visit Charges Inpatient E&M: 59473 [facility] L3
--- NOTE | 2025-07-28 07:30 | PCM.PN.INT ---
Assessment & Plan Assessment/Plan (1) Acute on chronic respiratory failure with hypoxia and hypercapnia: PLAN: Plan RECOMMENDATIONS: 1. Supplemental oxygen to maintain saturations at or above 90%. 2. Continue scheduled Atrovent. 3. Antimicrobials to complete 7 days of therapy. 4. Continue amiodarone and heparin. 5. Tentative plans for modified barium swallow today. 6. Dietary advancement per speech therapy. 7. Encourage incentive spirometer use and mobilize patient as tolerated. IMPRESSIONS: 1. Acute on chronic combined respiratory failure Improved. Most likely related to COPD exacerbation in the setting of aspiration pneumonia. The patient is at high risk for further aspiration events given her history of dysphagia and concern for achalasia. The patient underwent upper endoscopy on July 26 and is status post esophageal dilation due to stenosis. The patient has improved from a respiratory perspective with antimicrobials, bronchodilators and steroids. Accordingly, the patient was able to be extubated on July 27. Plan to continue to wean supplemental oxygen to maintain saturations at or above 90%. She will be continued on antibiotics to complete 7 days of therapy. Will defer dietary advancement to speech therapy, with plans for modified barium swallow to be completed. 2. History of dysphagia/GERD/questionable achalasia and esophageal stenosis status post dilation Gastroenterology following to assist with medical management. 3. Atrial fibrillation with RVR Continue heparin infusion and amiodarone. Echocardiogram revealed intact, normal systolic function. Once the patient is able to tolerate p.o. intake, beta-nancie can be introduced. 4. History of chronic kidney disease/anemia/allergic rhinitis/history of CVA/hypertension/diabetes mellitus/tobacco dependency Complicates care, management, recovery and prognosis. Continue supportive measures as noted above. PT/OT to work with the patient. This note was generated with [email or web address] dictation software. It may contain incorrect words, spelling, and punctuation that were not noted in checking the note before signing. Subjective Subjective The patient was seen and examined at the bedside this morning. Events from the last 24 hours have been reviewed. The patient is currently afebrile, hemodynamically stable and maintaining appropriate oxygen saturations on 3 L/min via nasal cannula. The patient remains in atrial fibrillation. Her blood cell count is elevated at 19,000 with a hemoglobin of 10.4 g/dL and platelet count of 376,000. Creatinine is stable at 2.34. Objective Data Objective Data The patient's most recent lab work, culture data and imaging studies have all been personally reviewed. Surface echocardiogram demonstrated mild concentric LVH with an ejection fraction of 70% and stage I diastolic dysfunction. Infectious workup has been unrevealing to date. Vital Signs: Vital Signs Temp Pulse Resp BP Pulse Ox O2 Del Method O2 Flow Rate 98.0 F 127 H 17 157/87 H 93 Nasal Cannula 4 07/28/25 02:00 07/28/25 06:00 07/28/25 06:00 07/28/25 06:00 07/28/25 06:00 07/28/25 06:00 07/28/25 06:00 FiO2 30 07/27/25 08:00 Oxygen Flow Rate (L/min) 4 Oxygen Delivery Method Nasal Cannula Weight: 190 lb 0.615 oz Body Mass Index (BMI) 29.8 Intake & Output: Intake and Output for Last 24 Hours 07/26/25 07/27/25 07/28/25 23:59 23:59 23:59 Intake Total 1197.05 / 1212.25 1563.68 / 1563.68 Output Total 650 / 650 475 / 475 1999 / 1999 Balance 547.05 / 562.25 1541.08 / 1541.08 -436.32 / -436.32 Lab / Micro Data Attestation: I reviewed the patient's lab results. 07/28/25 04:44 07/28/25 04:44 Labs: Laboratory Results - last 24 hr 07/27/25 12:10: POC Glucose 57 L 07/27/25 13:00: APTT 33.4 07/27/25 17:37: POC Glucose 45 L 07/27/25 18:18: POC Glucose 101 07/27/25 20:00: APTT 61.3 H, Glucose 73 07/28/25 00:30: POC Glucose 81 07/28/25 04:44: WBC 19.3 H, RBC 3.43 L, Hgb 10.4 L, Hct 32.7 L, MCV 95.3, MCH 30.3, MCHC 31.8 L, RDW Std Deviation 47.8 H, RDW Coeff of Tessa 13.7, Plt Count 376, MPV 9.6, Neut % (Auto) Not Reportable, Absolute Neuts (auto) 17.0 H, Absolute Lymphs (auto) 0.97, Total Counted 100, Neutrophils % (Manual) 84 H, Band Neutrophils % 4, Lymphocytes % (Manual) 5 L, Monocytes % (Manual) 2, Eosinophils % (Manual) 1, Metamyelocytes % 2 H, Myelocytes % 2 H, Toxic Vacuolation 1+, Platelet Estimate ADEQUATE, Polychromasia 1+, Anisocytosis 1+, Ovalocytes 2+, APTT 95.2 H*, Sodium 134, Potassium 3.9, Chloride 104, Carbon Dioxide 15.3 L, Anion Gap 15, BUN 78 H, Creatinine 2.34 H, Estim Creat Clear Calc 22.07 L, Est GFR (MDRD) Non-Af 21 L, BUN/Creatinine Ratio 33.2 H, Glucose 214 H, Calcium 7.9 07/28/25 06:01: POC Glucose 114 H Micro: Microbiology 07/22/25 12:32 Blood Culture (Wb) - Anticubital Left Blood Culture - Final No growth in 5 days. 07/22/25 12:32 Blood Culture (Wb) - Anticubital Right Blood Culture - Final No growth in 5 days. 07/22/25 22:05 Sputum, Induced/Lukens Gram Stain - Final 07/22/25 22:05 Sputum, Induced/Lukens Respiratory Culture - Final Mixed normal respiratory michelle. No Streptococcus pneumoniae, beta-hemolytic Streptococcus or Staphylococcus aureus isolated. 07/22/25 13:09 Urine, Catheterized Urine Culture - Final Culture exhibits no growth. 07/22/25 20:49 Mucosa - Nasopharyngeal Respiratory Panel (PCR) - Final 07/22/25 12:30 Mucosa - Nose SARS-CoV-2, Influenza & RSV (PCR) - Final ABG Data ABG results: ABG 07/25/25 05:58 Specimen Type ART Sample Site R Radial pH 7.48 H Bicarbonate Actual 20.4 L Total CO2 21 Base Excess -3 L O2 Saturation 99 O2 % 30.0 ABG pCO2 27.1 L ABG pO2 118 H Ed Test Positive Respiration Rate 16 O2 Delivery Device Adult Vent Vent Mode AC Tidal Volume 400.0 POC PEEP 5 Radiography Diagnostic Testing: Radiology Impression Chest X-Ray 07/25/25 05:05 IMPRESSION: Tubes and lines in position. There is cardiomegaly with central vascular congestion and congestive changes. Reading Location: [facility] Physical Exam Const alert and no apparent distress General Appearance: cooperative HEENT normocephalic and head/scalp atraumatic Eyes EOMs intact bilaterally and conjunctivae normal Neck supple General: trachea midline Chest inspection of chest normal Resp Auscultation: diminished lung sounds; Negative for rales, rhonchi or wheezes Cardio S1 normal heart sound and S2 normal heart sound Rate: tachycardic Rhythm: abnormal rhythm GI normal to inspection, nondistended, normoactive bowel sounds Extremity no clubbing, cyanosis or edema Skin no rashes or lesions noted Neuro CN's II-XII intact bilaterally and no focal motor deficits Psych Mood & Affect: flat affect Charges/Coding Visit Charges Inpatient E&M: 83438 [facility] L3
[2025-07-28] MEDS: Ampicillin/Sulbactam 3 GM in 0.9% Normal Saline (100mL MB+) 100 ML IV ×2 (08:42→21:29)
[2025-07-28] MEDS: CHLORHEXIDINE GLUC 2% CLOTH 1 EACH TOWELETTE TOPICAL (09:41)
[2025-07-28] MEDS: 0.9% Saline Lock 10 ML Syringe IV ×2 (09:54→15:46)
--- NOTE | 2025-07-28 10:08 | CASEMGMT ---
Addendum entered by Silvina Whiting 07/28/25 11:52: Referral has been sent to [facility]. Per Delicia, procurement cost coordinator, she will review referral tomorrow, as pt is not medically ready today. Pt's most recent temp is 99.4 and she states pt would need to be fever free (less than 99.1) for 24 hrs without any antipyretic medications. Abi given SNF list that was prepared by Maylin to review. She was made aware to choose 2 other preferences in case [facility] unable to accept. Original Note: RN TRACIE NOTE: Daughter, Abi, in room visiting. RN CM to room. Abi states she feels pt is going to need some therapy after discharge from [facility] prior to returning home. She has spoken w/pt this morning & states they are both interested in her going to [facility]. They decline wanting list of other SNF options unless TCU unable to accept. Suzette LOVE RN CM
[2025-07-28] MEDS: Pantoprazole Sodium 40 MG in 0.9% Normal Saline (100mL MB+) 100 ML 300 MG IV (10:24)
--- NOTE | 2025-07-28 10:34 | CASEMGMT ---
Discharge Planning A list of?SNF providers including quality and resource use data and consistent with the patient's preferred geographic region, medical needs, and insurance network was created in [facility] Guide.? This list was provided to the RN TRACIE. Maylin Lang, Discharge Planning Asst.
--- NOTE | 2025-07-28 12:43 | ST.MBS ---
Modified Barium Swallow Patient Information Study Date: 07/28/25 Study Time: 13:00 Direct Billable Minutes: 110 Total Minutes procedure & reportin Diagnosis: Dysphagia R13.10; Chronic respiratory failure J96.11 Referring Physician: Jonel Lorenzo Reason for Referral: Assess swallow function, assess risk for aspiration, and determine recommendations for least restrictive diet textures and compensatory strategies to improve swallowing safety. Medical History: The patient w/ extensive PMH below presented to [facility] ED 07/22/25 w/ worsening shortness of breath. Medical history significant for COPD with chronic respiratory failure on home 4 L nasal cannula, CKD stage IIIb, history of CVA, chronic debility, anxiety/depression, type 2 diabetes mellitus, hypertension and hyperlipidemia. Patient lives at home alone, daughter lives nearby. Patient arrived to the ED today in respiratory distress. She was placed on BiPAP shortly after arrival. CTA chest showed no PE, did show cardiomegaly with bilateral pleural effusions CHF as well as airspace opacities in the lower lungs concerning for atelectasis versus pneumonia; also showed a dilated esophagus with ingested material consistent with GERD. Patient had bruising noted on her neck so CT soft tissue neck was also done and showed no concerns the neck but did show fluid and air-filled dilatation of the visualized esophagus concerning for achalasia. In the ED, she was able to be put back on 4 L nasal cannula and was satting in the mid 90s. Pt admitted for concern for COPD and CHF exacerbations, as well as possible dysphagia with concern for aspiration PNA. Daughter informed the physician that the patient has had swallowing issues for some time now w/ episodes of regurgitation. Respiratory status continued to worsen, and 07/23/2025 pt was intubated. EGD 07/26/2025 Impression: - Food in the esophagus. Removal was successful.- Benign-appearing esophageal stenosis. Dilated.- Abnormal esophageal motility, consistent with achalasia.- No gross lesions in the entire stomach.- Gastric stenosis was found at the pylorus. - No gross lesions in the duodenal bulb. Recommendation: - Return patient to ICU for ongoing care. - Resume previous diet. - Continue present medications. - Await pathology results. Pt was extubated 07/27/2025 in the morning. Pt was referred for ST consult to assess risk for aspiration and determine recommendations for LRD textures. BSE revealed no s/s of aspiration w/ limited liquid and applesauce trials; however, given PMH of esophageal dysphagia, COPD, CVA, and recent intubation, MINE EXPERT recommended NPO w/ limited sips/chips w/ plan for this MBSS prior to diet advancement to determine safest, LRD textures and to rule out concern for silent aspiration. Medical History (Updated 07/22/25 @ 21:[address] Antoni Argueta, DO) Wears glasses Wears dentures Diabetes Walker as ambulation aid Arthritis Hepatitis High cholesterol Easy bruising Back pain Syncope Dietary restriction History of hiatal hernia Gastric reflux On home oxygen therapy Shortness of breath on exertion Leg cramps History of pain when walking History of edema History of irregular heartbeat CKD (chronic kidney disease), stage IV Chronic hypoxic respiratory failure, on home oxygen therapy Anxiety and depression Chronic obstructive pulmonary disease Iron deficiency anemia Hyperlipidemia Diabetes mellitus Former smoker Stroke/cerebrovascular accident Hypertension Emphysema of lung CKD stage 4 due to type 1 diabetes mellitus Current Diet Ordered: NPO Dentition: Edentulous Respiratory Status: Oxygenating on Room Air Penetration-Aspiration Scale Penetration-Aspiration Scale: OBJECTIVE ASSESSMENT OF SWALLOW FUNCTION (QUANTITATIVE ? PER TRIAL): PENETRATION / ASPIRATION SCALE (AVENDANO): 1 = does not enter airway 2 = enters airway/above vocal folds/ejected 3 = enters airway/above vocal folds/not ejected 4 = enters airway/contacts vocal folds/ejected 5 = enters airway/contacts vocal folds/not ejected 6 = enters airway/below vocal folds/ejected 7 = enters airway/below vocal folds/not ejected despite effort 8 = enters airway/below vocal folds/no effort VIDEOFLOROSCOPIC SCALE SCORE (AVENDANO): Grade I = aspiration of material that has penetrated into the laryngeal vestibule, intact cough reflex Grade II = aspiration < 10 % of the bolus, intact cough reflex Grade III = aspiration of < 10 % of the bolus, reduced cough reflex or aspiration of > 10 % of the bolus, intact cough reflex Grade IV = aspiration of > 10 % of the bolus, reduced cough reflex Penetration-Aspiration Scale Score Thin Liquid via teaspoon: Result: 8= enters airway/below vocal folds/no effort Thin Liquid via teaspoon Trial 2: Result: 7= enters airways/below vocal folds/not ejected despite effort [employer] Thick Liquid via teaspoon: Result: 7= enters airways/below vocal folds/not ejected despite effort Honey Thick Liquid via teaspoon: Result: 2= enter airway/above vocal folds/ejected Pudding via teaspoon: Result: 1= does not enter airway Comment: Esophageal screen - Majority of the bolus cleared through the esophagus. Honey Thick Liquid via teaspoon Trial 2: Result: 1= does not enter airway Comment: Esophageal screen - Retention in the middle 1/3 of the esophagus w/ min retrograde flow. Oral Phase Labial Seal: Interlabial escape, no progression to anterior lip Tongue Control During Bolus Hold: Posterior escape of less than half of bolus Bolus Transport/Lingual Motion: Repetitive/disorganized tongue motion Oral Residue: Residue collection on oral structures Pharyngeal Phase Initiation of Pharyngeal Swallow: Bolus head in pyriforms Soft Palate Elevation: No bolus between soft palate and pharyngeal wall Laryngeal Elevation: Partial superior movement thyroid cart/partial apprx aryt-epig petiole Anterior Hyoid Excursion: Partial anterior movement Epiglottic Movement: Complete inversion Laryngeal Vestibule Closure at Height of Swallow: Incomplete; narrow column of air/contrast in laryngeal vestibule Pharyngeal Stripping Wave: Present - complete Pharyngoesophageal Segment Opening: Complete distension and complete duration; no obstruction of flow Tongue Base Retraction: Trace column of contrast between tongue base & post. pharyngeal wall Pharyngeal Residue: Trace residue within or on pharyngeal structures Esophageal Phase Esophageal Clearance: Esophageal retention w/ retrograde flow below pharyngoesophageal seg. Diagnosis/Impression Diagnosis: Moderate-severe oropharyngeal dysphagia R13.12 [facility] [place]: The oral phase is primarily marked by... -Decreased bolus control w/ loss of >1/2 of the liquids to the pyriform sinuses prior to swallow onset w/ thin by tsp trial 2. -Lingual pumping for A-P transport. -Mild-moderate oral residues, mostly in FOM. -Did not assess mastication. The study was ended early due to escalating HR after three instances of aspiration. The pharyngeal phase is primarily marked by... -Decreased airway closure during the swallow due to decreased anterior hyoid excursion and laryngeal elevation. -Silent aspiration of thin liquids by tsp. Overt aspiration of second sip of thin liquids by tsp and mildly thick liquids by tsp. The esophageal phase is primarily marked by... -Esophageal retention in the lower 1/3 of the esophagus w/ min retrograde flow w/ moderately (honey) thick liquids. Recommendations Diet: NPO (Critical meds crushed in applesauce that can't be given by IV; otherwise, strict NPO) Need for Skilled Speech Therapy Services: Yes Comment: -Trials of puree textures / moderately (honey) thick liquids w/ MINE EXPERT ONLY to consider diet advancement if good tolerance; however, recommend trialing cautiously due to achalasia and risk for reflux aspiration. -Train pt in oral motor and oropharyngeal exercise programs to improve labial seal, bolus control, A-P transport, and airway closure (lingual resistance, lingual coordination, lip press, CTAR, effortful, Rut). -Train staff and pt in thorough oral care routine. Education Completed: 1. Described result of evaluation. (MINE EXPERT reviewed results of MBSS w/ RN. RN had spoken w/ Dr. Chavez re: results of MBSS. He has contacted Dr. Nguyen re: PEG placement.) Status Active ST Patient: Active Contact Information [facility] Speech Therapy:: Natasha Bull M.A. [facility] Speech-Language Pathologist [facility] [address] [place] [address] [phone]
--- NOTE | 2025-07-28 14:45 | RAD_ITS ---
PROCEDURE: CXR FOR LINE PLACEMENT 07/28/2025 REASON FOR EXAM: PICC LINE PLACEMENT TECHNIQUE: Procedure Code: RADCXRLP Modality: DX Procedure: CXR FOR LINE PLACEMENT COMPARISON: July 25, 2025 FINDINGS: Hardware: Nasogastric tube and endotracheal tube have been removed. Right-sided PICC line has been introduced and the tip is seen over the superior vena cava. Lungs: Subsegmental atelectasis at the left lung base. Pleura: Scant pleural fluid left lung base. No pneumothorax Cardiac: Heart is mildly enlarged. Aorta is tortuous and atherosclerotic. RAD/CXR for Line Placement IMPRESSION: No pneumothorax following PICC line placement. Removal of endotracheal and jerry ogastric tubes. Reading Location: [id number]
[2025-07-28 14:53] LABS: Partial Thromboplast Time 169.4 Seconds (24.1-36.2)
--- NOTE | 2025-07-28 15:01 | NURSING ---
vacuum cleaner repair person petra PTT via PICC insertion in right upper arm, which was the same arm as the heparin drip that was infusing at the time of the blood draw. Repeat of the draw sent stat. New draw from the midline that was recently placed, heparin was confirmed off during repeat draw.
[2025-07-28 15:22] LABS: Partial Thromboplast Time 34.8 Seconds (24.1-36.2)
[2025-07-28] MEDS: Heparin Nomogram Adjustment 5,000 UNIT/ML VIAL IV (15:56)
--- NOTE | 2025-07-28 18:12 | PN_ITS ---
Progress Note 80-year-old lady with a history of achalasia. She was recently admitted to the Intensive Care Unit (ICU) for respiratory distress caused by a solid food impaction in her esophagus. She was initially managed with non-invasive ventilation (BiPAP), but her condition worsened, necessitating intubation. A computed tomography (CT) scan revealed a dilated esophagus with air-fluid levels. * Intervention:?An upper endoscopy was performed to remove the impacted food. Her clinical condition improved, allowing for successful extubation. * Relevant History:?Post-extubation, she underwent a swallowing study which identified severe oropharyngeal and esophageal dysphagia with aspiration, placing her at high risk for aspiration pneumonia. * Nutrition:?She requires an alternative method of nutrition due to her inability to safely swallow food or liquids. Physical Exam Const alert and no apparent distress General Appearance: cooperative HEENT normocephalic and head/scalp atraumatic Eyes EOMs intact bilaterally and conjunctivae normal Neck supple General: trachea midline Chest inspection of chest normal Resp Auscultation: diminished lung sounds; Negative for rales, rhonchi or wheezes Cardio S1 normal heart sound and S2 normal heart sound Rate: tachycardic Rhythm: abnormal rhythm GI normal to inspection, nondistended, normoactive bowel sounds Extremity no clubbing, cyanosis or edema Skin no rashes or lesions noted Neuro CN's II-XII intact bilaterally and no focal motor deficits Psych Mood & Affect: flat affect Assessment & Plan Assessment/Plan (1) Esophageal dysmotility: (2) Acute on chronic respiratory failure with hypoxia and hypercapnia: (3) Dysphagia: PLAN: Assessment * Severe dysphagia with aspiration:?The patient's inability to safely manage her secretions and consume food and fluids orally places her at significant risk for aspiration pneumonia. The oropharyngeal and esophageal components of her dysphagia contribute to this risk. * Achalasia:?The underlying achalasia, which caused the esophageal food impaction and subsequent respiratory failure, remains a long-term condition requiring management. * Nutritional risk:?The patient cannot maintain adequate nutrition or hydration through oral intake alone, necessitating alternative nutritional support. * Decision for PEG tube:?The risk of repeated aspiration outweighs the benefits of attempting oral intake, making a non-oral route for nutrition and hydration medically necessary. A PEG tube is an appropriate option for long-term enteral feeding. Plan * Proceed with PEG tube placement:?Placement of a percutaneous endoscopic gastrostomy tube is recommended for providing long-term nutrition and hydration. She is already on Unasyn so she should not need any antibiotics. * Nutritional Consultation:?Consult with a registered dietitian to establish an appropriate feeding regimen and formula once the PEG tube is placed. * Patient and Family Education:?Educate the patient and her family on the purpose of the PEG tube, the placement procedure, and subsequent care. Emphasize the importance of following the feeding plan to prevent complications. * Ongoing care: * Continue to monitor her respiratory status and ensure proper oral hygiene to minimize the risk of aspiration pneumonia. * Further discussion regarding long-term management of her achalasia? Visit Charges Inpatient E&M: 72044 [facility] Hosp L3
[2025-07-29] VITALS (32 sets, daily range): BP systolic 128–175; BP diastolic 76–156; PULSE 100–133; RESP 12–18; TEMP 36.2–37.3; O2SAT 90–98; BMI 29.8
[2025-07-29] MEDS: Ipratropium 0.5 MG/2.5 ML SOLUTION INHALATION ×3 (01:14→17:15)
[2025-07-29 04:59] LABS: Differential Indicated MANUAL DIFF; Hematocrit 30.4 % (37-47); Hemoglobin 9.8 g/dL (12.0-15.0); Mean Corp Hgb Conc 32.2 g/dL (32-36); Mean Corpuscular Volume 95.9 fL (81-99); Mean Platelet Vol. 9.8 fl (6.2-12.0); POSITIVE COUNT YES; POSITIVE MORPHOLOGY YES; Platelet Count 330 K/mm3 (150-450); RBC Distribution Width CV 13.7 % (11.6-14.6); RBC Distribution Width SD 47.9 fl (35.1-43.9); Red Blood Count 3.17 M/mm3 (4.2-5.4); White Blood Count 13.6 K/mm3 (4.4-11.0)
[2025-07-29 05:35] LABS: Anion Gap 11 (5-15); BUN 56 mg/dL (4-19); BUN/Creat Ratio 33.2 RATIO (10-20); Calcium,Total 8.7 mg/dL (7.6-11.0); Carbon Dioxide 19.3 mmol/L (21.0-32.0); Chloride 110 mmol/L (98-108); Estimated Creatinine Clearance 30.81 ml/min (50-250); Glucose 215 mg/dL (70-99); Neutrophil-Segmented 75 % (47-70); Potassium 3.8 mmol/L (3.3-5.1); Red Cell Morphology NORM C+C NORMAL (NORM C&C); Total Cells Counted 100 (MANUAL DIFF)
[2025-07-29] MEDS: 0.9% Saline Lock 10 ML Syringe IV ×5 (05:46→21:43)
[2025-07-29] MEDS: Dext 5%-0.45% NS 1,000 ML 75 ML IV ×2 (05:46→21:43)
[2025-07-29] MEDS: Amiodarone 360 MG in Dextrose 5% Viaflo Bag 192.8 ML 16.7 MG CONT INF (05:46)
[2025-07-29] MEDS: Pantoprazole Sodium 40 MG in 0.9% Normal Saline (100mL MB+) 100 ML 300 MG IV (08:08)
--- NOTE | 2025-07-29 08:17 | PN.HOSP_ITS ---
Reason for Visit Chief Complaint: Worsening shortness of breath Subjective Subjective Patient did fill her speech and swallow eval. Friend reconciled. Plan is for patient to undergo PEG tube placement Objective Data Objective Data Vital Signs: Vital Signs Temp Pulse Resp BP Pulse Ox O2 Del Method O2 Flow Rate 98.2 F 114 H 15 150/92 H 94 Nasal Cannula 4 07/29/25 04:00 07/29/25 07:00 07/29/25 07:00 07/29/25 07:00 07/29/25 07:00 07/29/25 07:00 07/29/25 07:00 FiO2 30 07/27/25 08:00 Oxygen Flow Rate (L/min) 4 Oxygen Delivery Method Nasal Cannula Weight: 86.5 kg Body Mass Index (BMI) 29.8 Intake & Output: Intake and Output for Last 24 Hours 07/27/25 07/28/25 07/29/25 23:59 23:59 23:59 Intake Total 2015. 3046.38 / 3046.38 1263.32 / 1263.32 Output Total 475 / 475 3375 / 3375 1850 / 1850 Balance 1541.08 / 1541.08 -328.62 / -328.62 -586.68 / -586.68 Lab / Micro Data 07/29/25 04:50 07/29/25 04:50 Labs: Laboratory Results - last 24 hr 07/28/25 10:31: POC Glucose 139 H 07/28/25 13:30: APTT 169.4 H* 07/28/25 14:08: POC Glucose 144 H 07/28/25 14:58: APTT 34.8 07/28/25 17:41: POC Glucose 185 H 07/28/25 23:37: POC Glucose 122 H 07/29/25 04:50: WBC 13.6 H, RBC 3.17 L, Hgb 9.8 L, Hct 30.4 L, MCV 95.9, MCH 30.9, MCHC 32.2, RDW Std Deviation 47.9 H, RDW Coeff of Tessa 13.7, Plt Count 330, MPV 9.8, Neut % (Auto) Not Reportable, Absolute Neuts (auto) 10.2 H, Absolute Lymphs (auto) 1.64, Total Counted 100, Neutrophils % (Manual) 75 H, Lymphocytes % (Manual) 12 L, Monocytes % (Manual) 2, Eosinophils % (Manual) 3, Metamyelocytes % 1, Myelocytes % 6 H, Promyelocytes % 1 H, Platelet Estimate ADEQUATE, RBC Morphology NORM C+C, Sodium 140, Potassium 3.8, Chloride 110 H, C arbon Dioxide 19.3 L, Anion Gap 11, BUN 56 H, Creatinine 1.67 H, Estim Creat Clear Calc 30.81 L, Est GFR (MDRD) Non-Af 31 L, BUN/Creatinine Ratio 33.2 H, G lucose 215 H, Calcium 8.7 07/29/25 05:49: POC Glucose 129 H Micro: Microbiology 07/22/25 12:32 Blood Culture (Wb) - Anticubital Left Blood Culture - Final No growth in 5 days. 07/22/25 12:32 Blood Culture (Wb) - Anticubital Right Blood Culture - Final No growth in 5 days. 07/22/25 22:05 Sputum, Induced/Lukens Gram Stain - Final 07/22/25 22:05 Sputum, Induced/Lukens Respiratory Culture - Final Mixed normal respiratory michelle. No Streptococcus pneumoniae, beta-hemolytic Streptococcus or Staphylococcus aureus isolated. 07/22/25 13:09 Urine, Catheterized Urine Culture - Final Culture exhibits no growth. 07/22/25 20:49 Mucosa - Nasopharyngeal Respiratory Panel (PCR) - Final 07/22/25 12:30 Mucosa - Nose SARS-CoV-2, Influenza & RSV (PCR) - Final Radiography Diagnostic Testing: Radiology Impression Chest X-Ray 07/28/25 14:45 IMPRESSION: No pneumothorax following PICC line placement. Removal of endotracheal and nasogastric tubes. Reading Location: [facility] Physical Exam Narrative GENERAL: cooperative HEENT: Atraumatic; normocephalic EYES; Anicteric, Normal Conjunctiva NECK; supple, normal thyroid, RESPIRATORY: Diminished to auscultation CARDIOVASCULAR: Regular S1 S2, GI: soft, normoactive bowel sounds, : No Renal angle tenderness; EXTREMITIES: No edema, no clubbing, MUSCULOSKELETAL: no muscle wasting NEURO: Awake; no lateralizing signs. SKIN: Excoriations on lower extremities PSYCH; Flat affect Assessment & Plan Assessment/Plan (1) Acute on chronic respiratory failure with hypoxia and hypercapnia: (2) Dysphagia: (3) Esophageal dysmotility: (4) Paroxysmal atrial fibrillation with RVR: PLAN: Plan Patient is a 80-year-old lady who presented to the emergency department in respiratory distress. Was initially placed on BiPAP however clinical condition deteriorated resulting in patient being intubated and admitted to the intensive care unit. CT of the scan showed dilated esophagus with air-fluid levels GI subsequently consulted 1. Acute on chronic hypoxic and hypercapnic respiratory failure ? Multifactorial including aspiration pneumonia as well as congestive heart failure. Patient was initially managed with noninvasive ventilation BiPAP however respiratory status continued to deteriorate resulting in patient being intubated on 07/22/2025. ? 07/26/2025 patient remains awake on the vent with plans to undergo weaning trial following her EGD ? 07/27/2025; awake on the vent currently undergoing weaning trial ?07/28/2025; patient was successfully weaned off the vent the day prior. ? 07/29/2025; patient remains on nasal cannula 2. Suspected aspiration pneumonia based on CT finding of severely dilated esophagus. CT again demonstrated airspace opacities in lower lungs consistent with pneumonia. Patient remains on Zosyn 3. Dilated esophagus ? With concern for achalasia. CT obtained on 07/22/2025 demonstrated dilated esophagus with ingested material consistent with gastroesophageal reflux. Patient is on PPI consult placed to GI plan is for patient to undergo endoscopy with intervention by Dr. Nguyen on 07/25/2025 ? 07/26/2025; patient EGD scheduled for this a.m. ? 07/27/2025; patient underwent EGD findings and procedures performed as below Impressions : - Food in the esophagus. Removal was successful. - Benign-appearing esophageal stenosis. Dilated. - Abnormal esophageal motility, consistent with achalasia. - No gross lesions in the entire stomach. - Gastric stenosis was found at the pylorus. - No gross lesions in the duodenal bulb. 07/28/2025; patient scheduled to undergo speech and swallow eval ? 07/29/2025; patient did feel her bedside swallow eval Dr. Nguyen recontacted plan is for patient to undergo PEG tube placement 4. Acute congestive heart failure with preserved ejection fraction ? Patient was managed with diuretic therapy with furosemide echo ordered today show Mild concentric left ventricular hypertrophy. The left ventricular ejection fraction is 70 %. Stage 1 diastolic dysfunction. The left atrium is moderately enlarged. Mild mitral annular calcification. 5. New onset A-fib with RVR - Heart rates in the 140s to 160s patient was started on amiodarone drip. Patient was placed on systemic anticoagulation with heparin with plans to transition to apixaban on discharge ? 07/27/2025; patient heart rate control still not optimal remains on amiodarone drip. Plan is to transition to p.o. once patient comes off the vent ? 07/28/2025; patient remains on amiodarone drip plan is to transition to p.o. following patient's speech and swallow eval ? 07/29/2025; discontinued amiodarone drip patient started on p.o. amiodarone 20 mg p.o. twice daily patient is on bisoprolol at night discontinued that started patient on metoprolol 25 mg twice daily 6. Anemia ? Secondary to chronic disorder monitoring H&H and transfuse if patient becomes symptomatic or hemoglobin falls below 7 7. Acute kidney injury ? Superimposed on chronic kidney disease stage III. Baseline creatinine 1.88 creatinine on admission was 2.04. Patient creatinine peaked at 2.57. Kidney ultrasound did not show any abnormalities. Consult placed to nephrology ? 07/28/2025; patient kidney function remains elevated 8. Acute on chronic debility with recent mechanical fall - Patient lives alone at baseline but daughter lives close; Patient has had issues with movement since her fall 2 weeks ago; PT/OT is consulted and will work with patient more when she is extubated - Case management/social work consultation for assistance with discharge planning 9. Chronic hypoxic respiratory failure secondary to COPD -Baseline dependence on 4 L continuous. 10. History of stroke/TIAs ? Patient is on antiplatelet therapy with aspirin 11. Dyslipidemia ?Patient is on statin therapy, continued at home dose 12. Essential hypertension ? Patient blood pressure control remains stable 13. Diabetes mellitus type 2 ? Patient oral hypoglycemic agent held on admission placed on long-acting insulin with sliding scale coverage 14. Depression with anxiety ? Plan is to resume home meds once patient has been extubated 15. DVT prophylaxis ? Patient is on heparin Time spent in the patient's overall evaluation,decision-making process, review of diagnostic data, adjustment of management, discussion with other providers, nursing nursing and ancillary staff involved in patient's care documentation, 36 Minutes Charges/Coding Visit Charges Inpatient E&M: 17564 Subs Hosp L2
--- NOTE | 2025-07-29 08:30 | PCM.PN.INT ---
Assessment & Plan Assessment/Plan (1) Acute on chronic respiratory failure with hypoxia and hypercapnia: PLAN: Plan RECOMMENDATIONS: 1. Supplemental oxygen to maintain saturations at or above 90%. 2. Continue scheduled Atrovent. 3. Proceed with PEG tube placement. 4. Continue amiodarone. Heparin on hold for possible procedure. 5. Encourage incentive spirometer use and mobilize patient as tolerated. 6. Will sign off from a critical care perspective. Please call with any additional questions. IMPRESSIONS: 1. Acute on chronic combined respiratory failure Improved. Most likely related to COPD exacerbation in the setting of aspiration pneumonia. The patient is at high risk for further aspiration events given her history of dysphagia and concern for achalasia. The patient underwent upper endoscopy on July 26 and is status post esophageal dilation due to stenosis. The patient has improved from a respiratory perspective with antimicrobials, bronchodilators and steroids. Accordingly, the patient was able to be extubated on July 27. Plan to continue to wean supplemental oxygen to maintain saturations at or above 90%. She will be continued on antibiotics to complete 7 days of therapy. Unfortunately, the patient failed her modified barium swallow and is at high risk for further aspiration events. Therefore, recommend proceeding with PEG tube placement to facilitate nutritional support. 2. History of dysphagia/GERD/questionable achalasia and esophageal stenosis status post dilation Gastroenterology following to assist with medical management. Tentative plans for PEG tube placement. 3. Atrial fibrillation with RVR Continue heparin infusion and amiodarone. Echocardiogram revealed intact, normal systolic function. Once the patient is able to tolerate p.o. intake, beta-nancie can be introduced. 4. History of chronic kidney disease/anemia/allergic rhinitis/history of CVA/hypertension/diabetes mellitus/tobacco dependency Complicates care, management, recovery and prognosis. Continue supportive measures as noted above. PT/OT to work with the patient. This note was generated with [employer] dictation software. It may contain incorrect words, spelling, and punctuation that were not noted in checking the note before signing. Subjective Subjective The patient was seen and examined at the bedside this morning. Events from the last 24 hours have been reviewed. The patient is currently afebrile, hemodynamically stable and maintaining appropriate oxygen saturations on 4 L/min via nasal cannula. Given the patient's results of her modified barium swallow with evidence of overt aspiration and recommendation for n.p.o., I did call and speak with gastroenterology regarding the feasibility of PEG tube placement. The patient remains in atrial fibrillation. She is documented to be overall net +1.5 L for the hospitalization. White blood cell count is mildly elevated at 13,000. Hemoglobin and platelet count are stable. Creatinine has improved at 1.67. Glucose levels have stabilized. Objective Data Objective Data The patient's most recent lab work, culture data and imaging studies have all been personally reviewed. Surface echocardiogram demonstrated mild concentric LVH with an ejection fraction of 70% and stage I diastolic dysfunction. Infectious workup has been unrevealing to date. Vital Signs: Vital Signs Temp Pulse Resp BP Pulse Ox O2 Del Method O2 Flow Rate 98.2 F 114 H 15 150/92 H 94 Nasal Cannula 4 07/29/25 04:00 07/29/25 07:00 07/29/25 07:00 07/29/25 07:00 07/29/25 07:00 07/29/25 07:00 07/29/25 07:00 FiO2 30 07/27/25 08:00 Oxygen Flow Rate (L/min) 4 Oxygen Delivery Method Nasal Cannula Weight: 190 lb 11.198 oz Body Mass Index (BMI) 29.8 Intake & Output: Intake and Output for Last 24 Hours 07/27/25 07/28/25 07/29/25 23:59 23:59 23:59 Intake Total 3046.38 / 3046.38 1308.41 / 1308.41 Output Total 475 / 475 3375 / 3375 1850 / 1850 Balance 1541.08 / 1541.08 -328.62 / -328.62 -541.59 / -541.59 Lab / Micro Data Attestation: I reviewed the patient's lab results. 07/29/25 04:50 07/29/25 04:50 Labs: Laboratory Results - last 24 hr 07/28/25 10:31: POC Glucose 139 H 07/28/25 13:30: APTT 169.4 H* 07/28/25 14:08: POC Glucose 144 H 07/28/25 14:58: APTT 34.8 07/28/25 17:41: POC Glucose 185 H 07/28/25 23:37: POC Glucose 122 H 07/29/25 04:50: WBC 13.6 H, RBC 3.17 L, Hgb 9.8 L, Hct 30.4 L, MCV 95.9, MCH 30.9, MCHC 32.2, RDW Std Deviation 47.9 H, RDW Coeff of Tessa 13.7, Plt Count 330, MPV 9.8, Neut % (Auto) Not Reportable, Absolute Neuts (auto) 10.2 H, Absolute Lymphs (auto) 1.64, Total Counted 100, Neutrophils % (Manual) 75 H, Lymphocytes % (Manual) 12 L, Monocytes % (Manual) 2, Eosinophils % (Manual) 3, Metamyelocytes % 1, Myelocytes % 6 H, Promyelocytes % 1 H, Platelet Estimate ADEQUATE, RBC Morphology NORM C+C, Sodium 140, Potassium 3.8, Chloride 110 H, Carbon Dioxide 19.3 L, Anion Gap 11, BUN 56 H, Creatinine 1.67 H, Estim Creat Clear Calc 30.81 L, Est GFR (MDRD) Non-Af 31 L, BUN/Creatinine Ratio 33.2 H, Glucose 215 H, Calcium 8.7 07/29/25 05:49: POC Glucose 129 H Micro: Microbiology 07/22/25 12:32 Blood Culture (Wb) - Anticubital Left Blood Culture - Final No growth in 5 days. 07/22/25 12:32 Blood Culture (Wb) - Anticubital Right Blood Culture - Final No growth in 5 days. 07/22/25 22:05 Sputum, Induced/Lukens Gram Stain - Final 07/22/25 22:05 Sputum, Induced/Lukens Respiratory Culture - Final Mixed normal respiratory michelle. No Streptococcus pneumoniae, beta-hemolytic Streptococcus or Staphylococcus aureus isolated. 07/22/25 13:09 Urine, Catheterized Urine Culture - Final Culture exhibits no growth. 07/22/25 20:49 Mucosa - Nasopharyngeal Respiratory Panel (PCR) - Final 07/22/25 12:30 Mucosa - Nose SARS-CoV-2, Influenza & RSV (PCR) - Final ABG Data ABG results: ABG 07/25/25 05:58 Specimen Type ART Sample Site R Radial pH 7.48 H Bicarbonate Actual 20.4 L Total CO2 21 Base Excess -3 L O2 Saturation 99 O2 % 30.0 ABG pCO2 27.1 L ABG pO2 118 H Ed Test Positive Respiration Rate 16 O2 Delivery Device Adult Vent Vent Mode AC Tidal Volume 400.0 POC PEEP 5 Radiography Diagnostic Testing: Radiology Impression Chest X-Ray 07/28/25 14:45 IMPRESSION: No pneumothorax following PICC line placement. Removal of endotracheal and nasogastric tubes. Reading Location: [id number] Physical Exam Const alert and no apparent distress General Appearance: cooperative HEENT normocephalic and head/scalp atraumatic Eyes EOMs intact bilaterally and conjunctivae normal Neck supple General: trachea midline Chest inspection of chest normal Resp Auscultation: diminished lung sounds; Negative for rales, rhonchi or wheezes Cardio S1 normal heart sound and S2 normal heart sound Rate: tachycardic Rhythm: abnormal rhythm GI normal to inspection, nondistended, normoactive bowel sounds Extremity no clubbing, cyanosis or edema Skin no rashes or lesions noted Neuro CN's II-XII intact bilaterally and no focal motor deficits Psych Mood & Affect: flat affect Charges/Coding Visit Charges Inpatient E&M: 27546 Subs Hosp L2
[2025-07-29] MEDS: Ampicillin/Sulbactam 3 GM in 0.9% Normal Saline (100mL MB+) 100 ML IV ×2 (08:48→21:42)
[2025-07-29] MEDS: CHLORHEXIDINE GLUC 2% CLOTH 1 EACH TOWELETTE TOPICAL (10:27)
--- NOTE | 2025-07-29 10:49 | CASEMGMT ---
Addendum entered by Silvina Whiting 07/29/25 16:15: Abi called this RN TRACIE. She states she spoke w/her sister and their 3rd preference is [facility]. Addendum entered by Silvina Whiting 07/29/25 15:49: Per Delicia @ [facility], they are not able to accept pt. Call placed to dtr, Abi. She states their next SNF preference is [facility]. They have not decided on a 3rd yet, but she will call her sister to discuss things further and call this RN CM back. erika Carlisle financial legal assistant, made aware to send referral to [facility] swing unit. Original Note: RN TRACIE NOTE: RN CM to room. Pt resting in bed, talking w/daughter, Abi, @ bedside. Abi states she has reviewed the SNF list and has been talking w/her sister and also w/pt. They are leaning towards [facility] swing bed unit as 2nd choice, if TCU unable to accept pt, but they are not certain on this yet. They will continue to discuss it and make a final decision. She is also aware to choose a 3rd facility as well. Suzette LOVE RN CM
[2025-07-29] MEDS: 0.9% Normal Saline (1000mL) 1,000 ML 15 ML IV (11:50)
--- NOTE | 2025-07-29 11:51 | PCM.PRE.AN2 ---
ASA Classification* ASA Classification ASA Classification: 4 Assessment & Plan Anesthesia* Anesthesia Assessment Anesthesia Assessment: Discussed sedation and/or anesthesia options, risks, benefits, and alternatives with patient/parents/legal guardian/POA. Questions invited. The patient/parents/legal guardian/POA seems to understand and agrees to proceed with anesthesia plan. Reviewed the physical assessment, medical history, allergy history and patient home medications list prior to surgery/procedure/anesthetic and documented any changes. Performed airway and anesthesia risk assessments. Anesthesia Type Anesthesia Type: MAC Anesthesia Focused Assessment* Temperature: 98.8 F Pulse Rate: 125 Blood Pressure: 137/103 Respiratory Rate: 18 Pulse Ox: 94 Oxygen Flow Rate (L/min): 4 Fraction of Inspired Oxygen (FIO2): 30 Airway Assessment Mouth opens: >3 cm Mallampati Score: II Labs Anesthesia Preop lab: CBC WBC, (4.4-11.0) 13.6 K/mm3 H Today, 04:50 RBC, (4.2-5.4) 3.17 M/mm3 L Today, 04:50 Hgb, (12.0-15.0) 9.8 g/dL L Today, 04:50 Hct, (37-47) 30.4 % L Today, 04:50 Plt Count, (150-450) 330 K/mm3 Today, 04:50 CHEMISTRY Potassium, (3.3-5.1) 3.8 mmol/L Today, 04:50 Sodium, (133-145) 140 mmol/L Today, 04:50 Magnesium, (1.5-2.2) 1.9 mg/dL 07/24/25, 03:44 Phosphorus, (2.7-4.5) 5.0 mg/dL H 07/24/25, 03:44 BUN, (4-19) 56 mg/dL H Today, 04:50 Creatinine, (0.70-1.20) 1.67 mg/dL H Today, 04:50 Glucose, (70-99) 215 mg/dL H Today, 04:50 POC Glucose, (74-106) 156 mg/dL H Today, 11:00 TSH, (0.358-3.74) 1.74 uIU/mL 01/20/20, 06:20 COAG PT, (11.7-14.9) 14.7 SECONDS 07/24/25, 12:25 Pre-Assessment Diagnosis/Proposed Procedure Planned Operative Procedure(s): peg Anesthesia History 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 When Was Last Pacemaker Check QUESTION #4 FULL TEXT: You/Your Family Experience fever (hyperthermia) with Anesthesia Last Oral Intake Last Oral intake: Last Oral Intake NPO since Meds taken in AM with sips of water? Meds patient instructed to take am of surgery PONV PONV - industrial waste treatment technician: PONV - industrial waste treatment technician Female HX of Motion Sickness HX of N/V After Surgery Non-Smoker Duration of Surgery greater than 60 minutes Number of Risk Factors PONV Score Height & Weight Height & Weight: Anesthesia: Height & Weight Height 5 ft 7 in 07/29/25 10:16 Weight: 86.5 kg 07/29/25 10:16 Body Mass Index (BMI) 29.8 07/29/25 05:57 Respiratory Assessment Respiratory Assessment - industrial waste treatment technician: Respiratory Tract Infection Hx - industrial waste treatment technician Hx Respiratory Tract Infection No 05/25/24 09:56 STOP Sleep Apnea STOP Sleep Apnea - industrial waste treatment technician: STOP Sleep Apnea - industrial waste treatment technician Hx Hypertension Yes: CONTROLLED WITH MED 07/27/25 15:26 Hx Sleep Apnea No 07/22/25 18:33 CPAP BIPAP Do you snore loudly (louder Yes 07/22/25 18:33 than talking or can be heard Do you often feel tired/ Yes 07/22/25 18:33 fatigued/ sleepy during daytime? Has anyone observed you stop No 07/22/25 18:33 breathing during sleep? STOP Results Positive 07/22/25 18:33 QUESTION #5 FULL TEXT : Do you snore loudly (louder than talking or can be heard through closed doors)? Tobacco Use History Tobacco Use History - industrial waste treatment technician: Tobacco Use History - industrial waste treatment technician Tobacco Use Non-smoker 02/27/21 07:36 Smoking Status Former smoker 07/22/25 18:33 Hx Tobacco Use No 07/22/25 18:33 Years Smoking Packs Smoked per Day Smoking Cessation Date was No - quit smoking greater 07/22/25 18:33 within the last 15 years than 15 years ago Hx Smoking Cessation Date 10/13/12 07/22/25 18:33 Hx Smoking Cessation No 07/22/25 18:33 Counseling Hematologic Medial History Hematologic Hx - industrial waste treatment technician: Hematologic Medical Hx - rn clinical documentation Hx of Blood Transfusion No 07/22/25 18:33 Hx of Transfusion in last 3 No 07/22/25 18:33 Months Date of Last Transfusion (if within last 3 months) Ever experience any problems No 07/22/25 18:33 with transfusion(s)? Specify any problems Hx of Preganancy in last 3 No 07/22/25 18:33 Months Nurse Filling Out Transfusion [email or web address] 07/22/25 18:33 & Questions: Date: 07/22/25 07/22/25 18:33 Time: 18:56 07/22/25 18:33 Patient unable to answer at this time (ie. confused, unrespo /Reproduction History /Reproductive History - industrial waste treatment technician: /Reproductive Hx- industrial waste treatment technician Hx Now Gestational Age (in weeks): EDC: Hx Hx Para Hx Section SAB No 05/25/24 09:56 Active Medications Active Medications: Current Medications Generic Name Dose Route Start Last Admin Trade Name Freq PRN Reason Stop Dose Admin Acetaminophen 650 mg 07/22/25 18:32 Acetaminophen 325 Mg Tablet PO Q6H PRN PRN Pain 1-10 Or Fever>100.7 Amiodarone HCl 200 mg 07/29/25 10:00 07/29/25 08:53 Amiodarone 200 Mg Tablet PO Not Given BID REG Aripiprazole 10 mg 07/23/25 10:00 07/29/25 10:27 Aripiprazole 10 Mg Tablet PO Not Given DAILY REG Protocol Atorvastatin Calcium 10 mg 07/22/25 22:00 07/28/25 21:25 Atorvastatin Calcium 10 Mg Tablet PO Not Given QHS REG Bupropion HCl 150 mg 07/22/25 22:00 07/29/25 08:51 Bupropion (Sr) 150 Mg Tablet.Sa PO Not Given BID REG Chlorhexidine Gluconate 1 each 07/25/25 10:00 07/29/25 10:27 Chlorhexidine Gluc 2% Cloth 1 Each [place] TOPICAL 1 each DAILY REG Administration Cholecalciferol 125 mcg 07/24/25 10:00 07/29/25 08:51 Cholecalciferol (Vit D3) 125 Mcg Capsule (5,000 Units) PO Not Given DAILY REG Cyanocobalamin 1,000 mcg 07/23/25 10:00 07/29/25 08:51 Cyanocobalamin 500 Mcg Tablet PO Not Given DAILY REG Fentanyl Citrate 50 mcg 07/22/25 21:59 Fentanyl 100 Mcg/2 Ml Ampul IV Q2H PRN PRN Pain >/= 4/10 or CPOT>/= 3/8 Ferrous Sulfate 325 mg 07/23/25 12:00 07/29/25 11:22 Ferrous Sulfate 325 Mg Tablet PO Not Given 1200,1700 REG Glucagon 1 mg 07/22/25 21:04 Glucagon 1 Mg/Ml Syringe IM X1 PRN Hypoglycemia Protocol Heparin Sodium (Porcine) 0 unit 07/24/25 12:07 07/28/25 15:56 Heparin Nomogram Adjustment 5,000 Unit/Ml Vial IV 3,000 unit UD PRN Administration Dose Adjustment Protocol Hydralazine HCl 10 mg 07/22/25 21:08 Hydralazine 20 Mg/Ml Vial IV Q4H PRN PRN SBP GREATER THAN 170 Protocol Sodium Chloride 250 mls @ 15 mls/hr 07/22/25 18:33 07/28/25 06:13 IV Infused .[id number] PRN Infusion Saline Flush Sodium Chloride 250 mls @ 15 mls/hr 07/22/25 18:33 IV .[id number] PRN Additional IVPB Infusion Dextrose 250 mls @ 0 mls/hr 07/22/25 21:04 07/27/25 21:40 Dextrose 10%-Water IV Infused .Q0M PRN Infusion HYPOGLYCEMIA Protocol As Directed Pantoprazole Sodium 40 mg/ 100 mls @ 300 mls/hr 07/22/25 21:05 07/29/25 08:35 Sodium Chloride IV Infused Q24 REG Infusion Ampicillin Sodium/Sulbactam 100 mls @ 150 mls/hr 07/26/25 22:00 07/29/25 09:30 Sodium 3 gm/ Sodium Chloride IV 07/29/25 22:01 Infused Q12 REG Infusion Dextrose/Sodium Chloride 1,000 mls @ 75 mls/hr 07/27/25 14:05 07/29/25 11:29 IV 0 mls/hr .[id number] REG Infusion Sodium Chloride 1,000 mls @ 15 mls/hr 07/29/25 11:40 07/29/25 11:50 IV 15 mls/hr .Q48H REG Administration Insulin Human Lispro 0 unit 07/23/25 12:00 07/29/25 11:25 Insulin Lispro 100 Unit/Ml Insuln.Pen SC 3 u Q6 REG Administration Protocol Ipratropium [place] 0.5 mg 07/24/25 12:00 07/29/25 06:52 Ipratropium 0.5 Mg/2.5 Ml Solution INHALATION 0.5 mg Q6H.RT REG Administration Losartan Potassium 50 mg 07/23/25 10:00 07/29/25 08:52 Losartan Potassium 50 Mg Tablet PO Not Given DAILY REG Protocol Metoprolol Tartrate 5 mg 07/29/25 12:00 07/29/25 10:56 Metoprolol Tartrate 5 Mg/5 Ml Vial IV 5 mg Q6 REG Administration Protocol Montelukast Sodium 10 mg 07/23/25 10:00 07/29/25 08:52 Montelukast 10 Mg Tablet PO Not Given DAILY REG Nystatin 1 applic 07/22/25 22:00 07/29/25 08:52 Nystatin Powder 15gm Bottle TOPICAL 1 applic BID [facility] Administration Protocol Ondansetron HCl 4 mg 07/22/25 18:32 Ondansetron 4 Mg/2 Ml Vial IV Q8H PRN PRN NAUSEA/VOMITING Sodium Chloride 10 - 40 ml 07/22/25 18:33 07/29/25 11:25 0.9% Saline Lock 10 Ml Syringe IV 10 ml UD PRN Administration SALINE FLUSH Trazodone HCl 150 mg 07/22/25 21:08 Trazodone 50 Mg Tablet PO QHS PRN sleep Venlafaxine HCl 150 mg 07/23/25 10:00 07/29/25 08:52 Venlafaxine Xr 150 Mg Capsule PO Not Given DAILY [facility] PFSH Medical History Wears glasses Wears dentures Diabetes Walker as ambulation aid Arthritis Hepatitis High cholesterol Easy bruising Back pain Syncope Dietary restriction History of hiatal hernia Gastric reflux On home oxygen therapy Shortness of breath on exertion Leg cramps History of pain when walking History of edema History of irregular heartbeat CKD (chronic kidney disease), stage IV Chronic hypoxic respiratory failure, on home oxygen therapy Anxiety and depression Chronic obstructive pulmonary disease Iron deficiency anemia Hyperlipidemia Diabetes mellitus Former smoker Stroke/cerebrovascular accident Hypertension Emphysema of lung CKD stage 4 due to type 1 diabetes mellitus Home Medications ?Medication ?Instructions ?Recorded ?Last Taken ?Type aspirin 81 mg chewable tablet 81 mg PO DAILY@0800 Heart health 12/27/16 07/28/23 History bupropion HCl 150 mg tablet,12 hr 150 mg PO BID mental health 12/27/16 07/28/23 History sustained-release cyanocobalamin (vitamin B-12) 1,000 mg PO DAILY supplement 12/27/16 07/28/23 History 1,000 mcg tablet (Vitamin B-12) lovastatin 40 mg tablet 40 mg PO QHS cholesterol 12/27/16 07/27/23 History montelukast 10 mg tablet 10 mg PO DAILY allergies 12/27/16 07/28/23 History trazodone 150 mg tablet 150 mg PO QHS insomnia 12/27/16 07/27/23 History venlafaxine 150 mg 150 mg PO DAILY depression 12/27/16 07/28/23 History capsule,extended release 24 hr albuterol sulfate 90 mcg/actuation 1 - 2 puff inhalation Q4H PRN PRN 12/30/16 01/19/20 Rx aerosol inhaler (Ventolin HFA) Sob &/Or Wheezing ##1 bisoprolol fumarate 5 mg tablet 5 mg PO DINNER blood pressure 04/19/21 07/27/23 History pioglitazone 30 mg tablet 30 mg PO DAILY@0800 diabetes 01/26/22 07/28/23 History oxycodone-acetaminophen 5 mg-325 1 tab PO Q12H PRN back pain 07/28/23 07/28/23 History mg tablet aripiprazole 10 mg tablet 10 mg PO DAILY mood 02/29/24 Unknown History esomeprazole magnesium 40 mg 40 mg PO DAILY acid reflux 02/29/24 Unknown History capsule,delayed release losartan 50 mg tablet 50 mg PO DAILY #30 tabs 03/03/24 Unknown Rx glimepiride 2 mg tablet 2 mg PO BID diabetes 05/11/24 Unknown History OXYGEN - Supplemental ([facility] hypoxia 07/23/25 Unknown History INFORMATIONAL USE ONLY) cholecalciferol (vitamin D3) 125 125 mcg PO DAILY supplement 07/23/25 Unknown History mcg (5,000 unit) capsule ferrous sulfate 325 mg (65 mg 325 mg PO BID supplement 07/23/25 Unknown History iron) tablet Allergy/AdvReac Type Severity Reaction Status Date / Time No Known Allergies Allergy Verified 07/22/25 13:19 Family History Mother Diabetes Heart disease Hypertension Father Diabetes Heart disease Hypertension Surgical History History of ERCP Hx laparoscopic cholecystectomy Status post open reduction with internal fixation (ORIF) of fracture of ankle Social History household members: spouse Smoking Status: Former smoker how long ago did patient quit smoking: Smoked 2 ppd until ~ 10 years ago since teen until quit. alcohol intake: never substance use type: does not use Review of Systems (Anesthesia) ROS Narrative System reviewed and no additional complaints, except as documented.
[2025-07-29] MEDS: Lidocaine 1% (5 ml sdv) 5 ML Vial IV (12:18)
--- NOTE | 2025-07-29 12:38 | PCM.POST.ANE ---
Anesthesia: Postop Eval I Current Vital Signs Temperature: 98 F Pulse Rate: 119 Blood Pressure: 150/76 Respiratory Rate: 16 Pulse Ox: 92 Oxygen Delivery Method: Nasal Cannula Oxygen Flow Rate (L/min): 4 Assessment Airway patent: Yes Spontaneous unlabored respirations: Yes Mental status: Awake and Calm nausea: No Vomiting: No Anesthesia Complication: No Fluid Hydration Crystalloid volume administer (ml): 400 Total IV fluid infused: 400 Progress Note Anesthesia document: Postop Eval 1 completed: Yes
--- NOTE | 2025-07-29 12:45 | OP.PROVAT_ITS ---
07/29/2025 Federica Britt Re : Upper GI endoscopy procedure for Martha Johnson Dear Adam This procedure was performed on Tuesday, July 29, 2025. My impressions and recommendations are as follows: Impressions : - Abnormal esophageal motility, consistent with achalasia. - Gastritis. - An endoscopically removable PEG placement was successfully completed. - No specimens collected. Recommendations : - Return patient to ICU for ongoing care. - Please follow the post-PEG recommendations. - Continue present medications. My findings are described in the full procedure note, which is enclosed. If I can be of further assistance, please feel free to contact me at . Sincerely, Kamron Nguyen, 07/29/2025 12:45:12 PM This report has been signed electronically.
--- NOTE | 2025-07-29 12:45 | OP.EGD_ITS ---
Patient Name: Martha Johnson Procedure Date: 07/29/2025 12:21 PM Date of : 1945 Age: 80 Procedure: Upper GI endoscopy Indications: Dysphagia Providers: Kamron Nguyen DO Medicines: Monitored Anesthesia Care Patient Profile: This is a 80 year old female. Refer to note in patient chart for documentation of history and physical. Patient has symptoms of dysphagia with both liquids and solids. Complications: No immediate complications. Procedure: Pre-Anesthesia Assessment: - Prior to the procedure, a History and Physical was performed, and patient medications and allergies were reviewed. The patient is competent. The risks and benefits of the procedure and the sedation options and risks were discussed with the patient. All questions were answered and informed consent was obtained. Patient identification and proposed procedure were verified by the physician in the pre-procedure area. Mental Status Examination: alert and oriented. Airway Examination: normal oropharyngeal airway and neck mobility. Respiratory Examination: clear to auscultation. CV Examination: normal. Prophylactic Antibiotics: The patient does not require prophylactic antibiotics. Prior Anticoagulants: The patient has taken no anticoagulant or antiplatelet agents except for NSAID medication. ASA Grade Assessment: II - A patient with mild systemic disease. After reviewing the risks and benefits, the patient was deemed in satisfactory condition to undergo the procedure. The anesthesia plan was to use monitored anesthesia care (MAC). Immediately prior to administration of medications, the patient was re-assessed for adequacy to receive sedatives. The heart rate, respiratory rate, oxygen saturations, blood pressure, adequacy of pulmonary ventilation, and response to care were monitored throughout the procedure. The physical status of the patient was re-assessed after the procedure. After obtaining informed consent, the endoscope was passed under direct vision. Throughout the procedure, the patient's blood pressure, pulse, and oxygen saturations were monitored continuously. The gastroscope was introduced through the mouth, and advanced to the second part of duodenum. The upper GI endoscopy was accomplished without difficulty. The patient tolerated the procedure well. Scope In: 12:24:40 PM Scope Out: 12:36:19 PM Total Procedure Duration Time 0 hours 11 minutes 39 seconds Findings: Abnormal motility was noted in the esophagus. The cricopharyngeus was abnormal. There is a decrease in motility of the esophageal body. The distal esophagus/lower esophageal sphincter is spastic, but gives up passage to the endoscope. Localized mild inflammation was found in the gastric body. The patient was placed in the supine position for PEG placement. The stomach was insufflated to appose gastric and abdominal traore. A site was located in the body of the stomach with excellent transillumination for placement. The abdominal wall was marked and prepped in a sterile manner. The area was anesthetized with 1 mL of 1% lidocaine. The trocar needle was introduced through the abdominal wall and into the stomach under direct endoscopic view. A snare was introduced through the endoscope and opened in the gastric lumen. The guide wire was passed through the trocar and into the open snare. The snare was closed around the guide wire. The endoscope and snare were removed, pulling the wire out through the mouth. A skin incision was made at the site of needle insertion. The endoscopically removable 20 Fr Bard gastrostomy tube was lubricated. The G-tube was tied to the guide wire and pulled through the mouth and into the stomach. The trocar needle was removed, and the gastrostomy tube was pulled out from the stomach through the skin. The external bumper was attached to the gastrostomy tube, and the tube was cut to remove the guide wire. The final position of the gastrostomy tube was confirmed by relook endoscopy, and skin marking noted to be 3 cm at the external bumper. The final tension and compression of the abdominal wall by the PEG tube and external bumper were checked and revealed that the bumper was loose and lightly touching the skin. The feeding tube was capped, and the tube site cleaned and dressed. Estimated blood loss was minimal. The exam of the duodenum was otherwise normal. Impression: - Abnormal esophageal motility, consistent with achalasia. - Gastritis. - An endoscopically removable PEG placement was successfully completed. - No specimens collected. Recommendation: - Return patient to ICU for ongoing care. - Please follow the post-PEG recommendations. - Continue present medications. Procedure Code(s): --- Professional --- 41207, Esophagogastroduodenoscopy, flexible, transoral; with directed placement of percutaneous gastrostomy tube CPT copyright 2021 [employer]. All rights reserved. The codes documented in this report are preliminary and upon [facility] [place] review may be revised to meet current compliance requirements. Kamron Nguyen DO 07/29/2025 12:45:12 PM This report has been signed electronically. Number of Addenda: 0 Note Initiated On: 07/29/2025 12:21 PM
--- NOTE | 2025-07-29 12:54 | POSTOPAN2_ITS ---
Anesthesia Postop Eval I Sum Postop Eval Completion status Anesthesia document: Postop Eval 1 completed: Yes Anesthesia Postop Eval I Summary Anesthesia Postop Eval I Summary: Anesthesia Postop Eval I: Assessment Summary Airway patent Yes 07/29/25 12:38 GOLF STUD [email or web address] Spontaneous unlabored Yes 07/29/25 12:38 GOLF STUD RIVETER.MDOT respirations Mental status Awake,Calm 07/29/25 12:38 GOLF STUD RIVETER.MDOT nausea No 07/29/25 12:38 GOLF STUD RIVETER.MDOT Vomiting No 07/29/25 12:38 GOLF STUD RIVETER.MDOT Anesthesia Postop Eval I: Fluid Summary Crystalloid volume administer 400 07/29/25 12:38 GOLF STUD RIVETER.MDOT (ml) Colloids volume administered ( ml) Blood Product volume administered (ml) Total IV fluid infused 400 07/29/25 12:38 GOLF STUD RIVETER.MDOT Anesthesia Postop Eval I: Summary Notes Anesthesia Complication No 07/29/25 12:38 GOLF STUD RIVETER.MDOT Anesthesia Complication Comment: Post-operative progress note Anesthesia: Postop Eval II Evaluation Mental status: Awake and Calm Pain Level: 0 nausea: No Vomiting: No Complications Anesthesia Complication: No
--- NOTE | 2025-07-29 12:54 | PCM.POSTANE2 ---
Anesthesia Postop Eval I Sum Postop Eval Completion status Anesthesia document: Postop Eval 1 completed: Yes Anesthesia Postop Eval I Summary Anesthesia Postop Eval I Summary: Anesthesia Postop Eval I: Assessment Summary Airway patent Yes 07/29/25 12:38 FIRST AID DIRECTOR.MDOT Spontaneous unlabored Yes 07/29/25 12:38 FIRST AID DIRECTOR.MDOT respirations Mental status Awake,Calm 07/29/25 12:38 FIRST AID DIRECTOR.MDOT nausea No 07/29/25 12:38 FIRST AID DIRECTOR.MDOT Vomiting No 07/29/25 12:38 FIRST AID DIRECTOR.MDOT Anesthesia Postop Eval I: Fluid Summary Crystalloid volume administer 400 07/29/25 12:38 FIRST AID DIRECTOR.MDOT (ml) Colloids volume administered ( ml) Blood Product volume administered (ml) Total IV fluid infused 400 07/29/25 12:38 FIRST AID DIRECTOR.MDOT Anesthesia Postop Eval I: Summary Notes Anesthesia Complication No 07/29/25 12:38 FIRST AID DIRECTOR.MDOT Anesthesia Complication Comment: Post-operative progress note Anesthesia: Postop Eval II Evaluation Mental status: Awake and Calm Pain Level: 0 nausea: No Vomiting: No Complications Anesthesia Complication: No
--- NOTE | 2025-07-29 13:16 | POSTOPAN2_ITS ---
Anesthesia Postop Eval I Sum Postop Eval Completion status Anesthesia document: Postop Eval 1 completed: Yes Anesthesia Postop Eval I Summary Anesthesia Postop Eval I Summary: Anesthesia Postop Eval I: Assessment Summary Airway patent Yes 07/29/25 12:38 POULTRY FEED SUPERVISOR.MDOT Spontaneous unlabored Yes 07/29/25 12:38 POULTRY FEED SUPERVISOR.MDOT respirations Mental status Awake,Calm 07/29/25 12:54 POULTRY FEED SUPERVISOR.MDOT nausea No 07/29/25 12:54 POULTRY FEED SUPERVISOR.MDOT Vomiting No 07/29/25 12:54 POULTRY FEED SUPERVISOR.MDOT Anesthesia Postop Eval I: Fluid Summary Crystalloid volume administer 400 07/29/25 12:38 POULTRY FEED SUPERVISOR.MDOT (ml) Colloids volume administered ( ml) Blood Product volume administered (ml) Total IV fluid infused 400 07/29/25 12:38 POULTRY FEED SUPERVISOR.MDOT Anesthesia Postop Eval I: Summary Notes Anesthesia Complication No 07/29/25 12:54 POULTRY FEED SUPERVISOR.MDOT Anesthesia Complication Comment: Post-operative progress note Anesthesia: Postop Eval II Evaluation Mental status: Awake Pain Level: 0 nausea: No Vomiting: No
--- NOTE | 2025-07-29 13:16 | PCM.POSTANE2 ---
Anesthesia Postop Eval I Sum Postop Eval Completion status Anesthesia document: Postop Eval 1 completed: Yes Anesthesia Postop Eval I Summary Anesthesia Postop Eval I Summary: Anesthesia Postop Eval I: Assessment Summary Airway patent Yes 07/29/25 12:38 GOLD WHEEL BLOCKER AND POLISHER.MDOT Spontaneous unlabored Yes 07/29/25 12:38 GOLD WHEEL BLOCKER AND POLISHER.MDOT respirations Mental status Awake,Calm 07/29/25 12:54 GOLD WHEEL BLOCKER AND POLISHER.MDOT nausea No 07/29/25 12:54 GOLD WHEEL BLOCKER AND POLISHER.MDOT Vomiting No 07/29/25 12:54 GOLD WHEEL BLOCKER AND POLISHER.MDOT Anesthesia Postop Eval I: Fluid Summary Crystalloid volume administer 400 07/29/25 12:38 GOLD WHEEL BLOCKER AND POLISHER.MDOT (ml) Colloids volume administered ( ml) Blood Product volume administered (ml) Total IV fluid infused 400 07/29/25 12:38 GOLD WHEEL BLOCKER AND POLISHER.MDOT Anesthesia Postop Eval I: Summary Notes Anesthesia Complication No 07/29/25 12:54 GOLD WHEEL BLOCKER AND POLISHER.MDOT Anesthesia Complication Comment: Post-operative progress note Anesthesia: Postop Eval II Evaluation Mental status: Awake Pain Level: 0 nausea: No Vomiting: No
[2025-07-29] MEDS: Cholecalciferol (Vit D3) 125 MCG CAPSULE (5,000 UNITS) PO (13:49)
--- NOTE | 2025-07-29 16:05 | CASEMGMT ---
Addendum entered by Maylin Lang 08/01/25 09:28: [facility] has accepted and will submit for precert. SW's updated Maylin Lang DC Planning Asst. Addendum entered by Maylin Lang 08/01/25 09:14: Requested clinical sent to [facility]. Referral remains pending. Maylin Lang DC Planning Asst. Original Note: Discharge Planning Referral sent to [facility]. Maylin Lang DC Planning Asst.
[2025-07-29] MEDS: APIXABAN 5 MG TABLET PO (21:42)
[2025-07-30] VITALS (10 sets, daily range): BP systolic 135–160; BP diastolic 66–96; PULSE 94–118; RESP 16–18; TEMP 36.3–36.9; O2SAT 94–98; BMI 29.2
[2025-07-30] MEDS: Ipratropium 0.5 MG/2.5 ML SOLUTION INHALATION ×3 (06:34→20:18)
[2025-07-30] MEDS: Dext 5%-0.45% NS 1,000 ML 75 ML IV (09:21)
[2025-07-30] MEDS: buPROPion (SR) 150 MG Tablet.SA PO ×2 (09:21→21:25)
[2025-07-30] MEDS: APIXABAN 5 MG TABLET GT ×2 (09:22→21:25)
[2025-07-30] MEDS: Cholecalciferol (Vit D3) 125 MCG CAPSULE (5,000 UNITS) GT (09:23)
[2025-07-30] MEDS: Pantoprazole Sodium 40 MG in 0.9% Normal Saline (100mL MB+) 100 ML 300 MG IV (09:36)
--- NOTE | 2025-07-30 10:02 | PN.HOSP_ITS ---
Reason for Visit Chief Complaint: Worsening shortness of breath Subjective Subjective Patient resting comfortably in chair, wakes up, still short of breath but reports it is at baseline, still having some cough with some sputum production, no she is at [facility] but when asked what year it was she repeated [facility] Objective Data Objective Data Vital Signs: Vital Signs Temp Pulse Resp BP Pulse Ox O2 Del Method O2 Flow Rate 97.5 F L 118 H 16 160/92 H 94 Nasal Cannula 4 07/30/25 02:00 07/30/25 06:35 07/30/25 06:35 07/30/25 02:00 07/30/25 06:35 07/30/25 06:35 07/30/25 06:35 FiO2 30 07/29/25 11:51 Oxygen Flow Rate (L/min) 4 Oxygen Delivery Method Nasal Cannula Weight: 84.7 kg Body Mass Index (BMI) 29.2 Intake & Output: Intake and Output for Last 24 Hours 07/28/25 07/29/25 07/30/25 23:59 23:59 23:59 Intake Total 3046.38 / 3046.38 2708.41 / 2708.41 872.5 / 872.5 Output Total 3375 / 3375 4101 / 4101 600 / 600 Balance -328.62 / -328.62 -1392.59 / -1392.59 272.5 / 272.5 Lab / Micro Data 07/29/25 04:50 07/29/25 04:50 Labs: Laboratory Results - last 24 hr 07/27/25 19:40: POC Glucose 73 L 07/27/25 19:50: POC Glucose 66 L 07/29/25 11:00: POC Glucose 156 H 07/29/25 17:04: POC Glucose 118 H 07/29/25 23:26: POC Glucose 135 H 07/30/25 05:52: POC Glucose 109 H Micro: Microbiology 07/22/25 12:32 Blood Culture (Wb) - Anticubital Left Blood Culture - Final No growth in 5 days. 07/22/25 12:32 Blood Culture (Wb) - Anticubital Right Blood Culture - Final No growth in 5 days. 07/22/25 22:05 Sputum, Induced/[place] Gram Stain - Final 07/22/25 22:05 Sputum, Induced/[place] Respiratory Culture - Final Mixed normal respiratory michelle. No Streptococcus pneumoniae, beta-hemolytic Streptococcus or Staphylococcus aureus isolated. 07/22/25 13:09 Urine, Catheterized Urine Culture - Final Culture exhibits no growth. 07/22/25 20:49 Mucosa - Nasopharyngeal Respiratory Panel (PCR) - Final 07/22/25 12:30 Mucosa - Nose SARS-CoV-2, Influenza & RSV (PCR) - Final Physical Exam Narrative General: Wakes up and answers questions though seems to be a little bit confused HEENT: Atraumatic, Eyes: Anicteric Neck: Supple Respiratory: Normal respiratory effort, diminished bilaterally Cardiovascular: Irregularly irregular, intermittently tachycardic GI: Soft, nontender, nondistended Extremities: No edema Musculoskeletal: Moving all extremities Neuro: No overt focal neurological deficits Skin: No rashes appreciated Psych: Cooperative Assessment & Plan Assessment/Plan (1) Acute on chronic respiratory failure with hypoxia and hypercapnia: PLAN: Plan 80-year-old female history of depression, GERD, diabetes, hypertension, CKD, COPD, CVA, chronic hypoxic respiratory failure on home O2 presented to [facility] ED 07/22/2025 with increasing shortness of breath. On arrival ABG showed pH 7.18, pCO2 58, pO2 60 on nasal cannula. She was subsequently placed on BiPAP and had CTA which showed no PE but did show cardiomegaly with bilateral pleural effusions and airspace opacities in lower lungs concerning for atelectasis versus pneumonia. Also showed dilated esophagus with ingested material consistent with GERD. Patient was given DuoNebs, IV Solu-Medrol, and a dose of IV Lasix and had improvement and was placed back on 4 L nasal cannula saturating in the mid 90s and hospitalist contacted for admission for concern for COPD and CHF exacerbations as well as possible dysphagia with aspiration pneumonia. Overnight however patient developed increased work of breathing again and patient placed back on BiPAP however continued to have increased work of breathing with stridorous breath sounds so patient was moved to the ICU and underwent endotracheal intubation. During intubation patient had copious secretions from her esophagus. # Acute hypoxic hypercapnic respiratory failure on chronic hypoxic respiratory failure suspected to be secondary to aspiration pneumonia - On arrival ABG showed pH 7.18, pCO2 58, pO2 60 on nasal cannula - CTA with bilateral pleural effusions and airspace opacities concerning for atelectasis versus pneumonia - Patient initially on BiPAP with improvement however patient was noted to have increased respiratory distress and required intubation 07/22/2025 with significant esophageal secretions noted during intubation - Suspect aspiration pneumonia - Patient placed on antibiotics - Ipratropium nebs -Slightly improved and was able to be extubated 07/27 - GI management for achalasia leading to aspiration as below # Dysphagia secondary to achalasia - Patient with concerns for dysphagia and scans showed esophageal contents on presentation -Additionally during intubation patient with significant esophageal secretions -GI consulted -Patient underwent EGD 07/26/2025 which showed food still in the esophagus with removal, esophageal stenosis which was dilated and abnormal esophageal motility consistent with achalasia, additionally gastric stenosis found at the pylorus -Despite dilation with EGD patient was still unable to manage secretions and maintain p.o. intake safely so patient had PEG tube placed 07/29/2025 -Nutrition consult # New onset with A-fib with RVR -Went into A-fib with RVR in the beginning of patient's hospitalization and she was started on amiodarone drip and anticoagulation -Echocardiogram had already been completed with stage I diastolic dysfunction, EF 70%, moderate large amount of left atrium with no significant valvular abnormalities -Patient transitioned to amiodarone due to and metoprolol and G-tube #Acute exacerbation of chronic heart failure with preserved ejection fraction -proBNP 5405 - CTA with bilateral pleural effusions - Patient received diuresis during hospitalization - Echocardiogram with stage I diastolic dysfunction and LVEF of 70 -Daily weights, I's and O's #Hx CVA - Patient to be switched to full dose anticoagulation given new onset A-fib # BENITO on CKD?BENITO resolved - Patient's baseline creatinine seems to be around 1.8, presentation was 2.04 however peaked at 2.59 on 07/27/2025 -Renal ultrasound obtained which showed bilateral generalized atrophy - This a.m. is 1.67 #Type 2 diabetes mellitus -Glucose checks and sliding scale insulin -Patient presently on D5, with lowest dose of sliding scale possible, patient has had some episodes of hypoglycemia, nutrition consult #Depression/anxiety -Continue home medications -May need to consider alternate psych regimen depending what will be able to be given down G-tube # Chronic hypoxic respiratory failure secondary to COPD -Patient presently on 4 L nasal cannula -Patient on ipratropium nebs and albuterol held due to patient's tachycardia #Hypertension - On beta-nancie and losartan # Debility -Will need SNF prior to discharge -Case management consult for discharge planning, SNF referrals have been made #DVT ppx: On full dose anticoagulation Gena Porter MD Time spent in the patient's overall evaluation, decision-making process, review of diagnostic data, adjustment of management, discussion with other providers, nursing and ancillary staff involved in patient's care documentation, 56 Minutes Charges/Coding Visit Charges Inpatient E&M: 01451 Subs Hosp L3
[2025-07-30] MEDS: Jevity 1.5 1,000 ML 20 ML GT (13:28)
[2025-07-30] MEDS: 0.9% Saline Lock 10 ML Syringe IV (18:06)
[2025-07-31] VITALS (10 sets, daily range): BP systolic 114–137; BP diastolic 49–84; PULSE 100–117; RESP 16–20; TEMP 36.4–37; O2SAT 94–98; BMI 29.1
[2025-07-31] MEDS: 0.9% Saline Lock 10 ML Syringe IV ×4 (03:32→18:15)
[2025-07-31 06:22] LABS: Hematocrit 29.4 % (37-47); Hemoglobin 9.2 g/dL (12.0-15.0); Mean Corp Hgb Conc 31.3 g/dL (32-36); Mean Corpuscular Volume 97.7 fL (81-99); Mean Platelet Vol. 10.0 fl (6.2-12.0); Platelet Count 317 K/mm3 (150-450); RBC Distribution Width CV 14.3 % (11.6-14.6); RBC Distribution Width SD 49.6 fl (35.1-43.9); Red Blood Count 3.01 M/mm3 (4.2-5.4); White Blood Count 11.9 K/mm3 (4.4-11.0)
[2025-07-31] MEDS: Ipratropium 0.5 MG/2.5 ML SOLUTION INHALATION ×3 (06:43→20:24)
[2025-07-31 06:47] LABS: Anion Gap 11 (5-15); BUN 29 mg/dL (4-19); BUN/Creat Ratio 20.2 RATIO (10-20); Calcium,Total 8.4 mg/dL (7.6-11.0); Carbon Dioxide 19.7 mmol/L (21.0-32.0); Chloride 110 mmol/L (98-108); Estimated Creatinine Clearance 35.35 ml/min (50-250); Glucose 240 mg/dL (70-99); Potassium 4.1 mmol/L (3.3-5.1)
[2025-07-31] MEDS: Cholecalciferol (Vit D3) 125 MCG CAPSULE (5,000 UNITS) GT (08:25)
[2025-07-31] MEDS: buPROPion (SR) 150 MG Tablet.SA PO ×2 (08:25→21:52)
[2025-07-31] MEDS: APIXABAN 5 MG TABLET GT ×2 (08:26→21:52)
[2025-07-31] MEDS: Pantoprazole Sodium 40 MG in 0.9% Normal Saline (100mL MB+) 100 ML 300 MG IV (09:48)
[2025-07-31] MEDS: 0.9% Normal Saline (250mL Bag) 250 ML 15 ML IV (09:49)
--- NOTE | 2025-07-31 15:20 | PN.HOSP_ITS ---
Reason for Visit Chief Complaint: Worsening shortness of breath Subjective Subjective Beginning to feel better today, breathing at baseline, little bit more awake and alert, tolerating tube feeds at goal Objective Data Objective Data Vital Signs: Vital Signs Temp Pulse Resp BP Pulse Ox O2 Del Method O2 Flow Rate 98.2 F 109 H 16 118/84 H 97 Nasal Cannula 4 07/31/25 09:50 07/31/25 13:13 07/31/25 13:13 07/31/25 09:50 07/31/25 09:50 07/31/25 09:50 07/31/25 12:00 FiO2 30 07/29/25 11:51 Oxygen Flow Rate (L/min) 4 Oxygen Delivery Method Nasal Cannula Weight: 84.3 kg Body Mass Index (BMI) 29.1 Intake & Output: Intake and Output for Last 24 Hours 07/29/25 07/30/25 07/31/25 23:59 23:59 23:59 Intake Total 2708.41 / 2708.41 2032.75 / 2032.75 693.42 / 693.42 Output Total 4101 / 4101 1655 / 1655 250 / 250 Balance -1392.59 / -1392.59 377.75 / 377.75 443.42 / 443.42 Lab / Micro Data 07/31/25 05:23 07/31/25 05:23 Labs: Laboratory Results - last 24 hr 07/30/25 18:04: POC Glucose 150 H 07/30/25 23:25: POC Glucose 109 H 07/31/25 05:23: WBC 11.9 H, RBC 3.01 L, Hgb 9.2 L, Hct 29.4 L, MCV 97.7, MCH 30.6, MCHC 31.3 L, RDW Std Deviation 49.6 H, RDW Coeff of Tessa 14.3, Plt Count 317, MPV 10.0, Sodium 140, Potassium 4.1, Chloride 110 H, Carbon Dioxide 19.7 L, Anion Gap 11, BUN 29 H, Creatinine 1.44 H, Estim Creat Clear Calc 35.35 L, Est GFR (MDRD) Non-Af 37 L, BUN/Creatinine Ratio 20.2 H, Glucose 240 H, Calcium 8.4 07/31/25 05:55: POC Glucose 238 H 07/31/25 11:23: POC Glucose 228 H Micro: Microbiology 07/22/25 12:32 Blood Culture (Wb) - Anticubital Left Blood Culture - Final No growth in 5 days. 07/22/25 12:32 Blood Culture (Wb) - Anticubital Right Blood Culture - Final No growth in 5 days. 07/22/25 22:05 Sputum, Induced/Lukens Gram Stain - Final 07/22/25 22:05 Sputum, Induced/Lukens Respiratory Culture - Final Mixed normal respiratory michelle. No Streptococcus pneumoniae, beta-hemolytic Streptococcus or Staphylococcus aureus isolated. 07/22/25 13:09 Urine, Catheterized Urine Culture - Final Culture exhibits no growth. 07/22/25 20:49 Mucosa - Nasopharyngeal Respiratory Panel (PCR) - Final 07/22/25 12:30 Mucosa - Nose SARS-CoV-2, Influenza & RSV (PCR) - Final Physical Exam Narrative General: Alert, answers questions appropriately, no acute distress HEENT: Atraumatic, normocephalic Eyes: Anicteric, normal conjunctiva, extraocular movements grossly intact Neck: Supple Respiratory: Fairly normal respiratory effort, slight crackles at the bases Cardiovascular: Low-grade tachycardia, irregular GI: Soft, nontender, nondistended Extremities: No edema, does have slight draining area on medial malleolus without any pus or significant erythema or purulence to suggest underlying active infection Musculoskeletal: Moving all extremities Neuro: No overt focal neurological deficits Skin: Chronic changes on lower extremity and area on medial malleolus on the left ankle as above Psych: Cooperative Assessment & Plan Assessment/Plan (1) Acute on chronic respiratory failure with hypoxia and hypercapnia: PLAN: Plan 80-year-old female history of depression, GERD, diabetes, hypertension, CKD, COPD, CVA, chronic hypoxic respiratory failure on home O2 presented to [facility] ED 07/22/2025 with increasing shortness of breath. On arrival ABG showed pH 7.18, pCO2 58, pO2 60 on nasal cannula. She was subsequently placed on BiPAP and had CTA which showed no PE but did show cardiomegaly with bilateral pleural effusions and airspace opacities in lower lungs concerning for atelectasis versus pneumonia. Also showed dilated esophagus with ingested material consistent with GERD. Patient was given DuoNebs, IV Solu-Medrol, and a dose of IV Lasix and had improvement and was placed back on 4 L nasal cannula saturating in the mid 90s and hospitalist contacted for admission for concern for COPD and CHF exacerbations as well as possible dysphagia with aspiration pneumonia. Overnight however patient developed increased work of breathing again and patient placed back on BiPAP however continued to have increased work of breathing with stridorous breath sounds so patient was moved to the ICU and underwent endotracheal intubation. During intubation patient had copious secretions from her esophagus. # Acute hypoxic hypercapnic respiratory failure on chronic hypoxic respiratory failure suspected to be secondary to aspiration pneumonia - On arrival ABG showed pH 7.18, pCO2 58, pO2 60 on nasal cannula - CTA with bilateral pleural effusions and airspace opacities concerning for atelectasis versus pneumonia - Patient initially on BiPAP with improvement however patient was noted to have increased respiratory distress and required intubation 07/22/2025 with significant esophageal secretions noted during intubation - Suspect aspiration pneumonia - Patient placed on antibiotics - Ipratropium nebs -Slightly improved and was able to be extubated 07/27 - GI management for achalasia leading to aspiration as below -07/31: Patient 94% on 4 L nasal cannula, tolerating PEG tube with tube feeds at goal, plan is for placement # Dysphagia secondary to achalasia - Patient with concerns for dysphagia and scans showed esophageal contents on presentation -Additionally during intubation patient with significant esophageal secretions -GI consulted -Patient underwent EGD 07/26/2025 which showed food still in the esophagus with removal, esophageal stenosis which was dilated and abnormal esophageal motility consistent with achalasia, additionally gastric stenosis found at the pylorus -Despite dilation with EGD patient was still unable to manage secretions and maintain p.o. intake safely so patient had PEG tube placed 07/29/2025 -Nutrition consult -07/31: Continue tube feeds, tolerating well at this time # New onset with A-fib with RVR -Went into A-fib with RVR in the beginning of patient's hospitalization and she was started on amiodarone drip and anticoagulation -Echocardiogram had already been completed with stage I diastolic dysfunction, EF 70%, moderate large amount of left atrium with no significant valvular abnormalities -Patient transitioned to amiodarone due to and metoprolol and G-tube -07/31: Did increase her metoprolol to 25 mg twice daily as she was still elevated around 110-120 at rest, does get more tachycardic with ambulation however patient is very deconditioned and feel this is physiologic tachycardia on top of her A-fib with baseline elevated rate, working on baseline rate and if heart rate increases with ambulation but returns to acceptable range at rest can likely keep medication the same, continue to monitor #Acute exacerbation of chronic heart failure with preserved ejection fraction?resolved -proBNP 5405 - CTA with bilateral pleural effusions - Patient received diuresis during hospitalization - Echocardiogram with stage I diastolic dysfunction and LVEF of 70 -Daily weights, I's and O's -07/31: Weight fairly stable at present, appears euvolemic, is not presently on any diuretics, continue to monitor volume status and adjust accordingly #Hx CVA - Patient to be switched to full dose anticoagulation given new onset A-fib -07/31: Patient on Eliquis, tolerating this well #Type 2 diabetes mellitus -Glucose checks and sliding scale insulin -Patient presently on D5, with lowest dose of sliding scale possible, patient has had some episodes of hypoglycemia, nutrition consult -07/31: Patient tolerating tube feeds, [id number] glucose 228, patient is on low-dose sliding scale but is easily become hypoglycemic, continues to have elevated sugars are up trends can increase sliding scale factor #Depression/anxiety -Continue home medications -May need to consider alternate psych regimen depending what will be able to be given down G-tube -07/31: Continue home Abilify and bupropion, patient has not been off of the Effexor as it has been on hold due to being n.p.o. # Chronic hypoxic respiratory failure secondary to COPD -Patient presently on 4 L nasal cannula -Patient on ipratropium nebs and albuterol held due to patient's tachycardia date saturating 94% on 4 L, patient feels breathing is at baseline, continue supportive care with ipratropium nebs #Hypertension - On beta-nancie and losartan -07/31: Most recent pressure 120/80, did increase metoprolol for heart rate, continue present management # Debility -Will need SNF prior to discharge -Case management consult for discharge planning, SNF referrals have been made -07/31: Discharge planning ongoing # BENITO on CKD?BENITO resolved - Patient's baseline creatinine seems to be around 1.8, presentation was 2.04 however peaked at 2.59 on 07/27/2025 -Renal ultrasound obtained which showed bilateral generalized atrophy - This a.m. is 1.67 -07/31: Continues to improve, creatinine 1.44 #DVT ppx: On full dose anticoagulation Gena Porter MD Charges/Coding Visit Charges Inpatient E&M: 26638 Subs Hosp L2
[2025-07-31] MEDS: Jevity 1.5 1,000 ML 50 ML GT (15:53)
[2025-08-01] VITALS (15 sets, daily range): BP systolic 129–153; BP diastolic 74–88; PULSE 72–125; RESP 16–22; TEMP 35.9–36.8; O2SAT 95–99; BMI 28.8
[2025-08-01 05:43] LABS: Hematocrit 27.5 % (37-47); Hemoglobin 8.5 g/dL (12.0-15.0); Mean Corp Hgb Conc 30.9 g/dL (32-36); Mean Corpuscular Volume 98.6 fL (81-99); Mean Platelet Vol. 9.8 fl (6.2-12.0); Platelet Count 273 K/mm3 (150-450); RBC Distribution Width CV 14.5 % (11.6-14.6); RBC Distribution Width SD 51.2 fl (35.1-43.9); Red Blood Count 2.79 M/mm3 (4.2-5.4); White Blood Count 10.1 K/mm3 (4.4-11.0)
[2025-08-01] MEDS: 0.9% Saline Lock 10 ML Syringe IV ×2 (06:05→09:51)
[2025-08-01 06:09] LABS: Anion Gap 9 (5-15); BUN 27 mg/dL (4-19); BUN/Creat Ratio 19.2 RATIO (10-20); Calcium,Total 8.3 mg/dL (7.6-11.0); Carbon Dioxide 21.6 mmol/L (21.0-32.0); Chloride 109 mmol/L (98-108); Estimated Creatinine Clearance 35.84 ml/min (50-250); Glucose 262 mg/dL (70-99); Potassium 4.1 mmol/L (3.3-5.1)
[2025-08-01] MEDS: Ipratropium 0.5 MG/2.5 ML SOLUTION INHALATION ×3 (07:09→19:25)
[2025-08-01] MEDS: Pantoprazole Sodium 40 MG in 0.9% Normal Saline (100mL MB+) 100 ML 300 MG IV (09:51)
[2025-08-01] MEDS: APIXABAN 5 MG TABLET GT ×2 (09:57→22:08)
[2025-08-01] MEDS: Cholecalciferol (Vit D3) 125 MCG CAPSULE (5,000 UNITS) GT (09:57)
--- NOTE | 2025-08-01 12:32 | PN.HOSP_ITS ---
Reason for Visit Chief Complaint: Worsening shortness of breath Subjective Subjective Saw patient at bedside this morning, daughter present. Patient was mildly fatigued appearing but otherwise sitting back comfortably in bedside chair, conversing normally, in no acute distress. Her main concern today was about being able to eat and I noted to her that we need to await further speech therapy recommendations prior to trialing any diet for her. She was understanding of this. No other acute concerns this morning. Objective Data Objective Data Vital Signs: Vital Signs Temp Pulse Resp BP Pulse Ox O2 Del Method O2 Flow Rate 98.3 F 72 20 H 141/74 H 97 Nasal Cannula 4 08/01/25 10:00 08/01/25 10:56 08/01/25 10:56 08/01/25 10:03 08/01/25 10:45 08/01/25 10:56 08/01/25 10:56 FiO2 30 07/29/25 11:51 Oxygen Flow Rate (L/min) 4 Oxygen Delivery Method Nasal Cannula Weight: 83.6 kg Body Mass Index (BMI) 28.8 Intake & Output: Intake and Output for Last 24 Hours 07/30/25 07/31/25 08/01/25 23:59 23:59 23:59 Intake Total 2032.75 / 2032.75 1698.25 / 1698.25 100 / 100 Output Total 1655 / 1655 750 / 750 1025 / 1025 Balance 377.75 / 377.75 948.25 / 948.25 -925 / -925 Lab / Micro Data 08/01/25 04:59 08/01/25 04:59 Labs: Laboratory Results - last 24 hr 07/31/25 18:02: POC Glucose 192 H 07/31/25 23:37: POC Glucose 212 H 08/01/25 04:59: WBC 10.1, RBC 2.79 L, Hgb 8.5 L, Hct 27.5 L, MCV 98.6, MCH 30.5, MCHC 30.9 L, RDW Std Deviation 51.2 H, RDW Coeff of Tessa 14.5, Plt Count 273, MPV 9.8, Sodium 140, Potassium 4.1, Chloride 109 H, Carbon Dioxide 21.6, Anion Gap 9, BUN 27 H, Creatinine 1.42 H, Estim Creat Clear Calc 35.84 L, Est GFR (MDRD) Non-Af 38 L, BUN/Creatinine Ratio 19.2, Glucose 262 H, Calcium 8.3 08/01/25 06:05: POC Glucose 256 H 08/01/25 11:56: POC Glucose 286 H Micro: Microbiology 07/22/25 12:32 Blood Culture (Wb) - Anticubital Left Blood Culture - Final No growth in 5 days. 07/22/25 12:32 Blood Culture (Wb) - Anticubital Right Blood Culture - Final No growth in 5 days. 07/22/25 22:05 Sputum, Induced/Lukens Gram Stain - Final 07/22/25 22:05 Sputum, Induced/Lukens Respiratory Culture - Final Mixed normal respiratory michelle. No Streptococcus pneumoniae, beta-hemolytic Streptococcus or Staphylococcus aureus isolated. 07/22/25 13:09 Urine, Catheterized Urine Culture - Final Culture exhibits no growth. 07/22/25 20:49 Mucosa - Nasopharyngeal Respiratory Panel (PCR) - Final 07/22/25 12:30 Mucosa - Nose SARS-CoV-2, Influenza & RSV (PCR) - Final Physical Exam Const alert, oriented x3, no apparent distress and average body habitus Constitutional Narrative: Pleasant elderly female, mildly fatigued appearing, otherwise sitting back comfortably in bed, conversing normally, in no acute distress. General Appearance: cooperative and comfortable HEENT normocephalic, head/scalp atraumatic, hearing grossly normal bilaterally, nasal mucous membranes and turbinates normal and moist oral mucous membranes Eyes PERRL, EOMs intact bilaterally and conjunctivae normal Neck full ROM Chest inspection of chest normal Resp normal respiratory effort, normal air movement, no use of accessory muscles and clear to auscultation bilaterally Cardio regular rate, regular rhythm, no murmurs and peripheral pulses 2+ throughout GI normal to inspection, nondistended, normoactive bowel sounds, soft to palpation, non-tender and non-distended GI Narrative: PEG tube in place, site appears clean and dry. Back/Spine normal ROM Extremity normal to inspection, full ROM and no pedal edema Skin no rashes or lesions noted Psych mental status grossly normal Assessment & Plan Assessment/Plan (1) Acute on chronic respiratory failure with hypoxia and hypercapnia: PLAN: Plan Patient is a 80-year-old female who presented to [facility] ED on 07/22/2025 with worsening shortness of breath. 1. 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 Blending Supervisor followed. On 4 L nasal cannula at baseline. Initial ABG with pH 7.18, pCO2 59, pO2 60 on 6 L nasal cannula. CTA chest with bilateral pleural effusions and opacities concerning for atelectasis versus pneumonia. Initially had improvement with BiPAP however was then noted to have increased respiratory distress and required intubation on the evening of admission. Significant esophageal secretions were noted during intubation. Patient was treated with IV antibiotics and scheduled DuoNebs with some improvement, was able to be extubated to nasal cannula on 07/27. Stable on home 4 L nasal cannula since 07/31. Continue home inhalers. 2. Dysphagia secondary to achalasia ? GI followed. Speech therapy following. Patient with concerns for dysphagia on admit and CT scan showed esophageal contents on presentation. Patient had significant esophageal secretions with intubation on admit as above. 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 Unfortunately despite dilation with EGD, patient was still unable to manage secretions and maintain p.o. intake safely so PEG tube was placed on 07/29. Tube feeds increased to goal by 07/31 and patient tolerating without issue. Patient with some improvement with speech therapy, okay for honey thick liquids by chad with staff only on 08/01. Medically stable for discharge, will need further speech therapy at rehab facility. 3. New onset A-fib with RVR ? Patient went into A-fib with RVR early on in the hospitalization requiring amiodarone drip and anticoagulation. Echo showed stage I diastolic dysfunction, EF 70%, monitor enlargement of left atrium, no significant valvular abnormalities. Patient was transition to amiodarone and metoprolol through the G-tube. Heart rate slightly elevated to the 110s to low 120s on 07/31 so metoprolol increased to 25 mg twice daily, then further uptitrated to 50 mg twice daily on 08/01. Continue to monitor telemetry and titrate medications as needed. Continue Eliquis that was started during this hospitalization. 4. Acute on chronic HFpEF, resolved ? CTA chest on admit with bilateral pleural effusions and echo with stage I diastolic dysfunction as above. Diuresed well during hospitalization. Euvolemic as of 07/31, no need for further diuretics at this time. Continue to monitor. 5. Acute on chronic debility with recent mechanical fall ? PT/OT/case management following. Patient lives at home alone, daughter lives close by. Patient with significant deconditioning during this prolonged hospitalization. Will need SNF placement on discharge. Medically ready for discharge on 08/01, awaiting placement. 6. BENITO on CKD3b, resolved ? Baseline creatinine appears to be around 1.4-1.6. Creatinine peaked at 2.59 during hospitalization, improved back to baseline by 07/31. Chronic medical conditions: ? Type 2 diabetes mellitus: Has had issues with intermittent hypoglycemia during hospitalization but blood sugars improved with tube feeds uptitrated to goal. Continue sliding scale insulin every 6 hours. Will plan to resume home glimepiride and pioglitazone on discharge. ? History of CVA, hypertension, hyperlipidemia: Continue losartan and metoprolol. On Eliquis as above. ? Anxiety/depression: Continue home venlafaxine and bupropion. ? Chronic anemia: Hemoglobin stable at baseline around 9 during hospitalization. DVT prophylaxis: Not indicated, on Eliquis CODE STATUS: Full code, verified Expected disposition: SNF, medically ready for discharge on 08/01, awaiting placement Total clinical time spent by myself addressing the patient's medical issues, reviewing all the data, and collaborating with patient's care team: 84 minutes. Charges/Coding Visit Charges Inpatient E&M: 14965 Subs Hosp L2
[2025-08-01] MEDS: Acetaminophen 650 MG/20 ML UDC GT (14:02)
[2025-08-01] MEDS: oxyCODONE Soln 5 MG/0.25 ML PO.SYRINGE PO (14:02)
[2025-08-01] MEDS: Jevity 1.5 1,000 ML 50 ML GT (14:57)
[2025-08-02] VITALS (11 sets, daily range): BP systolic 128–146; BP diastolic 71–89; PULSE 86–119; RESP 14–19; TEMP 36.1–36.7; O2SAT 96–99; BMI 29.0
[2025-08-02 06:08] LABS: Hematocrit 29.0 % (37-47); Hemoglobin 8.9 g/dL (12.0-15.0); Mean Corp Hgb Conc 30.7 g/dL (32-36); Mean Corpuscular Volume 99.7 fL (81-99); Mean Platelet Vol. 10.1 fl (6.2-12.0); Platelet Count 251 K/mm3 (150-450); RBC Distribution Width CV 14.6 % (11.6-14.6); RBC Distribution Width SD 51.9 fl (35.1-43.9); Red Blood Count 2.91 M/mm3 (4.2-5.4); White Blood Count 9.1 K/mm3 (4.4-11.0)
[2025-08-02 06:29] LABS: Anion Gap 10 (5-15); BUN 26 mg/dL (4-19); BUN/Creat Ratio 18.5 RATIO (10-20); Calcium,Total 8.4 mg/dL (7.6-11.0); Carbon Dioxide 21.9 mmol/L (21.0-32.0); Chloride 108 mmol/L (98-108); Estimated Creatinine Clearance 36.34 ml/min (50-250); Glucose 278 mg/dL (70-99); Potassium 4.2 mmol/L (3.3-5.1)
[2025-08-02] MEDS: Ipratropium 0.5 MG/2.5 ML SOLUTION INHALATION ×3 (06:40→19:20)
[2025-08-02] MEDS: APIXABAN 5 MG TABLET GT ×2 (09:04→20:43)
[2025-08-02] MEDS: Cholecalciferol (Vit D3) 125 MCG CAPSULE (5,000 UNITS) GT (09:05)
[2025-08-02] MEDS: Acetaminophen 650 MG/20 ML UDC GT ×2 (09:17→15:31)
[2025-08-02] MEDS: oxyCODONE Soln 5 MG/0.25 ML PO.SYRINGE PO (09:17)
[2025-08-02] MEDS: Pantoprazole Sodium 40 MG in 0.9% Normal Saline (100mL MB+) 100 ML 300 MG IV (09:18)
[2025-08-02] MEDS: 0.9% Saline Lock 10 ML Syringe IV ×2 (09:19→20:51)
[2025-08-02] MEDS: Jevity 1.5 1,000 ML 50 ML GT (09:50)
--- NOTE | 2025-08-02 11:52 | PN.HOSP_ITS ---
Reason for Visit Chief Complaint: Worsening shortness of breath Subjective Subjective Saw patient at bedside this morning. Patient was sitting back comfortably in bed, conversing normally, in no acute distress. Patient with no new concerns today. Objective Data Objective Data Vital Signs: Vital Signs Temp Pulse Resp BP Pulse Ox O2 Del Method O2 Flow Rate 97.8 F 119 H 16 146/89 H 96 Nasal Cannula 3 08/02/25 08:57 08/02/25 09:04 08/02/25 08:57 08/02/25 09:04 08/02/25 08:58 08/02/25 08:58 08/02/25 08:58 FiO2 30 07/29/25 11:51 Oxygen Flow Rate (L/min) 3 Oxygen Delivery Method Nasal Cannula Weight: 84.2 kg Body Mass Index (BMI) 29.0 Intake & Output: Intake and Output for Last 24 Hours 07/31/25 08/01/25 08/02/25 23:59 23:59 23:59 Intake Total 1698.25 / 1698.25 2035 / 2035 1194.17 / 1194.17 Output Total 750 / 750 1900 / 1900 700 / 700 Balance 948.25 / 948.25 135 / 135 494.17 / 494.17 Lab / Micro Data 08/02/25 04:59 08/02/25 04:59 Labs: Laboratory Results - last 24 hr 08/01/25 11:56: POC Glucose 286 H 08/01/25 15:57: POC Glucose 166 H 08/01/25 18:08: POC Glucose 244 H 08/01/25 23:19: POC Glucose 139 H 08/02/25 04:59: WBC 9.1, RBC 2.91 L, Hgb 8.9 L, Hct 29.0 L, MCV 99.7 H, MCH 30.6, MCHC 30.7 L, RDW Std Deviation 51.9 H, RDW Coeff of Tessa 14.6, Plt Count 251, MPV 10.1, Sodium 139, Potassium 4.2, Chloride 108, Carbon Dioxide 21.9, Anion Gap 10, BUN 26 H, Creatinine 1.40 H, Estim Creat Clear Calc 36.34 L, Est GFR (MDRD) Non-Af 38 L, BUN/Creatinine Ratio 18.5, Glucose 278 H, Calcium 8.4 08/02/25 05:35: POC Glucose 247 H Micro: Microbiology 07/22/25 12:32 Blood Culture (Wb) - Anticubital Left Blood Culture - Final No growth in 5 days. 07/22/25 12:32 Blood Culture (Wb) - Anticubital Right Blood Culture - Final No growth in 5 days. 07/22/25 22:05 Sputum, Induced/Lukens Gram Stain - Final 07/22/25 22:05 Sputum, Induced/Lukens Respiratory Culture - Final Mixed normal respiratory michelle. No Streptococcus pneumoniae, beta-hemolytic Streptococcus or Staphylococcus aureus isolated. 07/22/25 13:09 Urine, Catheterized Urine Culture - Final Culture exhibits no growth. 07/22/25 20:49 Mucosa - Nasopharyngeal Respiratory Panel (PCR) - Final 07/22/25 12:30 Mucosa - Nose SARS-CoV-2, Influenza & RSV (PCR) - Final Physical Exam Const alert, oriented x3, no apparent distress and average body habitus Constitutional Narrative: Pleasant elderly female, mildly fatigued appearing, otherwise sitting back comfortably in bed, conversing normally, in no acute distress. Stable. General Appearance: cooperative and comfortable HEENT normocephalic, head/scalp atraumatic, hearing grossly normal bilaterally, nasal mucous membranes and turbinates normal and moist oral mucous membranes Eyes PERRL, EOMs intact bilaterally and conjunctivae normal Neck full ROM Chest inspection of chest normal Resp normal respiratory effort, normal air movement, no use of accessory muscles and clear to auscultation bilaterally Cardio regular rate, regular rhythm, no murmurs and peripheral pulses 2+ throughout GI normal to inspection, nondistended, normoactive bowel sounds, soft to palpation, non-tender and non-distended GI Narrative: PEG tube in place, site appears clean and dry. Back/Spine normal ROM Extremity normal to inspection, full ROM and no pedal edema Skin no rashes or lesions noted Psych mental status grossly normal Assessment & Plan Assessment/Plan (1) Acute on chronic respiratory failure with hypoxia and hypercapnia: PLAN: Plan Patient is a 80-year-old female who presented to [facility] ED on 07/22/2025 with worsening shortness of breath. 1. 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 Apartment Coordinator followed. On 4 L nasal cannula at baseline. Initial ABG with pH 7.18, pCO2 59, pO2 60 on 6 L nasal cannula. CTA chest with bilateral pleural effusions and opacities concerning for atelectasis versus pneumonia. Initially had improvement with BiPAP however was then noted to have increased respiratory distress and required intubation on the evening of admission. Significant esophageal secretions were noted during intubation. Patient was treated with IV antibiotics and scheduled DuoNebs with some improvement, was able to be extubated to nasal cannula on 07/27. Stable on home 4 L nasal cannula since 07/31. Continue home inhalers. 2. Dysphagia secondary to achalasia ? GI followed. Speech therapy following. Patient with concerns for dysphagia on admit and CT scan showed esophageal contents on presentation. Patient had significant esophageal secretions with intubation on admit as above. 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 Unfortunately despite dilation with EGD, patient was still unable to manage secretions and maintain p.o. intake safely so PEG tube was placed on 07/29. Tube feeds increased to goal by 07/31 and patient tolerating without issue. Patient with some improvement with speech therapy, okay for honey thick liquids by chad with staff only on 08/01. Medically stable for discharge on 08/01, will need further speech therapy at rehab facility. 3. New onset A-fib with RVR ? Patient went into A-fib with RVR early on in the hospitalization requiring amiodarone drip and anticoagulation. Echo showed stage I diastolic dysfunction, EF 70%, monitor enlargement of left atrium, no significant valvular abnormalities. Patient was transition to amiodarone and metoprolol through the G-tube. Heart rate slightly elevated to the 110s to low 120s on 07/31 so metoprolol increased to 25 mg twice daily, then further uptitrated to 50 mg twice daily on 08/01. Continue to monitor telemetry and titrate medications as needed. Continue Eliquis that was started during this hospitalization. 4. Acute on chronic HFpEF, resolved ? CTA chest on admit with bilateral pleural effusions and echo with stage I diastolic dysfunction as above. Diuresed well during hospitalization. Euvolemic as of 07/31, no need for further diuretics at this time. Continue to monitor. 5. Acute on chronic debility with recent mechanical fall ? PT/OT/case management following. Patient lives at home alone, daughter lives close by. Patient with significant deconditioning during this prolonged hospitalization. Will need SNF placement on discharge. Medically ready for discharge on 08/01, awaiting placement. 6. BENITO on CKD3b, resolved ? Baseline creatinine appears to be around 1.4-1.6. Creatinine peaked at 2.59 during hospitalization, improved back to baseline by 07/31. Chronic medical conditions: ? Type 2 diabetes mellitus: Has had issues with intermittent hypoglycemia during hospitalization but blood sugars improved with tube feeds uptitrated to goal. Continue sliding scale insulin every 6 hours. Will plan to resume home glimepiride and pioglitazone on discharge. ? History of CVA, hypertension, hyperlipidemia: Continue losartan and metoprolol. On Eliquis as above. ? Anxiety/depression: Continue home venlafaxine and bupropion. ? Chronic anemia: Hemoglobin stable at baseline around 9 during hospitalization. DVT prophylaxis: Not indicated, on Eliquis CODE STATUS: Full code, verified Expected disposition: SNF, medically ready for discharge on 08/01, awaiting placement Total clinical time spent by myself addressing the patient's medical issues, reviewing all the data, and collaborating with patient's care team: 37 minutes. Charges/Coding Visit Charges Inpatient E&M: 99096 Subs Hosp L2
--- NOTE | 2025-08-02 15:47 | CHAPLAIN ---
Type of Pastoral Visit _x__ Initial Visit ___ Follow-up Visit ___ On-call Visit ___ General Patient Visit ___ Spiritual Assessment ___ Family Conference ___ Bereavement ___ Rapid Response ___ Code Blue ___ Other (describe below) Pastoral Care Referral From _x__ Patient ___ Family ___ Nurse ___ Physician ___ Edge Setter ___ Mold Tooler ___ Other (describe below) Sacrament/Intervention _x__ Active listening ___ Anointing ___ Judaism ___ Bereavement ___ Communion ___ Cata exploration ___ ___ Life review _x__ Prayer ___ Reconciliation ___ Sacrament of Sick _x__ Supportive presence ___ Wedding ___ Other (describe below) Pastoral Comments patient and family members are in the room; pt repeats desire of going home but acknowledging she needed to be here for help with health; pt was not active in a caodaism but welcomed a prayer for her support today; family giving emotional support
[2025-08-03] VITALS (11 sets, daily range): BP systolic 133–141; BP diastolic 86–101; PULSE 102–149; RESP 16–20; TEMP 36.3–36.8; O2SAT 93–98; BMI 28.7
[2025-08-03] MEDS: Ipratropium 0.5 MG/2.5 ML SOLUTION INHALATION ×3 (07:34→19:15)
--- NOTE | 2025-08-03 08:22 | CASEMGMT ---
Discharge Planning Updates sent to [facility] via [facility]. Precert remains pending. Maylin Lang DC Planning Asst.
[2025-08-03] MEDS: APIXABAN 5 MG TABLET GT ×2 (09:56→21:14)
[2025-08-03] MEDS: Pantoprazole Sodium 40 MG in 0.9% Normal Saline (100mL MB+) 100 ML 300 MG IV (09:57)
[2025-08-03] MEDS: Cholecalciferol (Vit D3) 125 MCG CAPSULE (5,000 UNITS) GT (09:57)
[2025-08-03] MEDS: buPROPion (SR) 150 MG Tablet.SA PO (09:57)
[2025-08-03] MEDS: 0.9% Saline Lock 10 ML Syringe IV ×2 (09:58→21:13)
[2025-08-03] MEDS: Jevity 1.5 1,000 ML 50 ML GT (09:58)
--- NOTE | 2025-08-03 11:48 | EX.PCM.PN.GI ---
Subjective Subjective - TF at goal of 50ml/hr - denies any pain - c/o mild tenderness/discomfort at PEG site - VSS Objective Data Objective Data Vital Signs: Vital Signs Temp Pulse Resp BP Pulse Ox O2 Del Method O2 Flow Rate 97.3 F L 149 H 16 141/101 H 96 Nasal Cannula 3 08/03/25 09:10 08/03/25 09:57 08/03/25 09:10 08/03/25 09:10 08/03/25 09:10 08/03/25 09:10 08/03/25 09:10 FiO2 30 07/29/25 11:51 Oxygen Flow Rate (L/min) 3 Oxygen Delivery Method Nasal Cannula Weight: 183 lb 6.793 oz Body Mass Index (BMI) 28.7 Intake & Output: Intake and Output for Last 24 Hours 08/01/25 08/02/25 08/03/25 23:59 23:59 23:59 Intake Total 2035 / 2035 2417.50 / 2417.50 646.67 / 646.67 Output Total 1900 / 1900 1600 / 1600 Balance 135 / 135 817.50 / 817.50 646.67 / 646.67 Lab / Micro Data Attestation: I reviewed the patient's lab results. 08/02/25 04:59 08/02/25 04:59 Labs: Laboratory Results - last 24 hr 08/02/25 11:45: POC Glucose 308 H 08/02/25 17:07: POC Glucose 153 H 08/03/25 00:12: POC Glucose 154 H 08/03/25 11:13: POC Glucose 221 H Micro: Microbiology 07/22/25 12:32 Blood Culture (Wb) - Anticubital Left Blood Culture - Final No growth in 5 days. 07/22/25 12:32 Blood Culture (Wb) - Anticubital Right Blood Culture - Final No growth in 5 days. 07/22/25 22:05 Sputum, Induced/Lukens Gram Stain - Final 07/22/25 22:05 Sputum, Induced/Lukens Respiratory Culture - Final Mixed normal respiratory michelle. No Streptococcus pneumoniae, beta-hemolytic Streptococcus or Staphylococcus aureus isolated. 07/22/25 13:09 Urine, Catheterized Urine Culture - Final Culture exhibits no growth. 07/22/25 20:49 Mucosa - Nasopharyngeal Respiratory Panel (PCR) - Final 07/22/25 12:30 Mucosa - Nose SARS-CoV-2, Influenza & RSV (PCR) - Final Physical Exam Const alert and no apparent distress Constitutional Narrative: Pleasant General Appearance: cooperative and comfortable HEENT normocephalic Eyes PERRL Resp normal respiratory effort Resp Narrative: 3L NC, CTA Effort and Inspection: able to speak in complete sentences GI normal to inspection, nondistended, normoactive bowel sounds, soft to palpation and non-tender GI Narrative: Jevity 1.2 infusing via PEG at goal of 50ml/hr, PEG site C/D/I, no erythema or drainage, no pain with palpation, BS+ x4 Rectal Exam: deferred Extremity Extremity Narrative: RUE PICC with occlusive dressing C/D/I Skin General Skin Exam: ecchymosis Psych Appearance: grossly normal Attitude: calm Activity / Motor Behavior: appropriate eye contact Speech: normal speech Memory / Cognition: memory grossly intact Assessment & Plan Assessment/Plan (1) Achalasia: PLAN: Plan 80-year-old female with a history of dysphagia secondary to achalasia, recently underwent EGD revealing achalasia with esophageal and pyloric stenosis, refractory to endoscopic dilation, requiring enteral nutrition via PEG. PEG tube placement performed 07/29/2025, mild postprocedural discomfort, no evidence of infection or complication. She reports mild discomfort at the PEG insertion site but denies abdominal pain, nausea, or vomiting. She is tolerating Jevity 1.5 at goal rate of 50 mL/hr. Chronic stable anemia (hemoglobin 8.9). Recommend continued routine follow-up for achalasia; patient is not a candidate for further definitive therapy due to poor oral intake and failed dilation. I have reviewed with Dr. Nguyen who advised possible outpatient esophageal manometry with consideration for Botox in the future. Note: [employer] speech recognition industrial welder software was used to create portions of this document. Sound-alike and misspelled words, as well as other industrial welder errors may be contained in the documentation.
--- NOTE | 2025-08-03 14:09 | PCM.PN.HOSP ---
Reason for Visit Chief Complaint: Worsening shortness of breath Subjective Subjective Saw patient at bedside this morning. Patient appeared similar today to previous days, was sitting back comfortably in bedside chair and in no acute distress. No new concerns this morning. Objective Data Objective Data Vital Signs: Vital Signs Temp Pulse Resp BP Pulse Ox O2 Del Method O2 Flow Rate 97.3 F L 104 H 18 141/101 H 96 Nasal Cannula 3 08/03/25 09:10 08/03/25 13:36 08/03/25 13:36 08/03/25 09:10 08/03/25 09:10 08/03/25 09:10 08/03/25 09:10 FiO2 30 07/29/25 11:51 Oxygen Flow Rate (L/min) 3 Oxygen Delivery Method Nasal Cannula Weight: 83.2 kg Body Mass Index (BMI) 28.7 Intake & Output: Intake and Output for Last 24 Hours 08/01/25 08/02/25 08/03/25 23:59 23:59 23:59 Intake Total 5 / 2034 2417.50 / 2417.50 646.67 / 646.67 Output Total 1900 / 1900 1600 / 1600 Balance 135 / 135 817.50 / 817.50 646.67 / 646.67 Lab / Micro Data 08/02/25 04:59 08/02/25 04:59 Labs: Laboratory Results - last 24 hr 08/02/25 17:07: POC Glucose 153 H 08/03/25 00:12: POC Glucose 154 H 08/03/25 11:13: POC Glucose 221 H Micro: Microbiology 07/22/25 12:32 Blood Culture (Wb) - Anticubital Left Blood Culture - Final No growth in 5 days. 07/22/25 12:32 Blood Culture (Wb) - Anticubital Right Blood Culture - Final No growth in 5 days. 07/22/25 22:05 Sputum, Induced/Lukens Gram Stain - Final 07/22/25 22:05 Sputum, Induced/Lukens Respiratory Culture - Final Mixed normal respiratory michelle. No Streptococcus pneumoniae, beta-hemolytic Streptococcus or Staphylococcus aureus isolated. 07/22/25 13:09 Urine, Catheterized Urine Culture - Final Culture exhibits no growth. 07/22/25 20:49 Mucosa - Nasopharyngeal Respiratory Panel (PCR) - Final 07/22/25 12:30 Mucosa - Nose SARS-CoV-2, Influenza & RSV (PCR) - Final Physical Exam Const alert, oriented x3, no apparent distress and average body habitus Constitutional Narrative: Pleasant elderly female, mildly fatigued appearing, otherwise sitting back comfortably in bed, conversing normally, in no acute distress. Stable. General Appearance: cooperative and comfortable HEENT normocephalic, head/scalp atraumatic, hearing grossly normal bilaterally, nasal mucous membranes and turbinates normal and moist oral mucous membranes Eyes PERRL, EOMs intact bilaterally and conjunctivae normal Neck full ROM Chest inspection of chest normal Resp normal respiratory effort, normal air movement, no use of accessory muscles and clear to auscultation bilaterally Cardio regular rate, regular rhythm, no murmurs and peripheral pulses 2+ throughout GI normal to inspection, nondistended, normoactive bowel sounds, soft to palpation, non-tender and non-distended GI Narrative: PEG tube in place, site appears clean and dry. Back/Spine normal ROM Extremity normal to inspection, full ROM and no pedal edema Skin no rashes or lesions noted Psych mental status grossly normal Assessment & Plan Assessment/Plan (1) Acute on chronic respiratory failure with hypoxia and hypercapnia: PLAN: Plan Patient is a 80-year-old female who presented to [facility] ED on 07/22/2025 with worsening shortness of breath. 1. 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 Lens Cleaner followed. On 4 L nasal cannula at baseline. Initial ABG with pH 7.18, pCO2 59, pO2 60 on 6 L nasal cannula. CTA chest with bilateral pleural effusions and opacities concerning for atelectasis versus pneumonia. Initially had improvement with BiPAP however was then noted to have increased respiratory distress and required intubation on the evening of admission. Significant esophageal secretions were noted during intubation. Patient was treated with IV antibiotics and scheduled DuoNebs with some improvement, was able to be extubated to nasal cannula on 07/27. Stable on home 4 L nasal cannula since 07/31. Continue home inhalers. 2. Dysphagia secondary to achalasia ? GI followed. Speech therapy following. Patient with concerns for dysphagia on admit and CT scan showed esophageal contents on presentation. Patient had significant esophageal secretions with intubation on admit as above. 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 Unfortunately despite dilation with EGD, patient was still unable to manage secretions and maintain p.o. intake safely so PEG tube was placed on 07/29. Tube feeds increased to goal by 07/31 and patient tolerating without issue. Patient with some improvement with speech therapy, okay for honey thick liquids by chad with staff only on 08/01. Medically stable for discharge on 08/01, will need further speech therapy at rehab facility. 3. New onset A-fib with RVR ? Patient went into A-fib with RVR early on in the hospitalization requiring amiodarone drip and anticoagulation. Echo showed stage I diastolic dysfunction, EF 70%, monitor enlargement of left atrium, no significant valvular abnormalities. Patient was transition to amiodarone and metoprolol through the G-tube. Heart rate slightly elevated to the 110s to low 120s on 07/31 so metoprolol increased to 25 mg twice daily, then further uptitrated to 50 mg twice daily on 08/01. Continue to monitor telemetry and titrate medications as needed. Continue Eliquis that was started during this hospitalization. 4. Acute on chronic HFpEF, resolved ? CTA chest on admit with bilateral pleural effusions and echo with stage I diastolic dysfunction as above. Diuresed well during hospitalization. Euvolemic as of 07/31, no need for further diuretics at this time. Continue to monitor. 5. Acute on chronic debility with recent mechanical fall ? PT/OT/case management following. Patient lives at home alone, daughter lives close by. Patient with significant deconditioning during this prolonged hospitalization. Will need SNF placement on discharge. Medically ready for discharge on 08/01, awaiting placement. 6. BENITO on CKD3b, resolved ? Baseline creatinine appears to be around 1.4-1.6. Creatinine peaked at 2.59 during hospitalization, improved back to baseline by 07/31. Chronic medical conditions: ? Type 2 diabetes mellitus: Has had issues with intermittent hypoglycemia during hospitalization but blood sugars improved with tube feeds uptitrated to goal. Continue sliding scale insulin every 6 hours. Will plan to resume home glimepiride and pioglitazone on discharge. ? History of CVA, hypertension, hyperlipidemia: Continue losartan and metoprolol. On Eliquis as above. ? Anxiety/depression: Continue home venlafaxine and bupropion. ? Chronic anemia: Hemoglobin stable at baseline around 9 during hospitalization. DVT prophylaxis: Not indicated, on Eliquis CODE STATUS: Full code, verified Expected disposition: SNF, medically ready for discharge on 08/01, awaiting placement Total clinical time spent by myself addressing the patient's medical issues, reviewing all the data, and collaborating with patient's care team: 36 minutes. Charges/Coding Visit Charges Inpatient E&M: 14418 Subs Hosp L2
--- NOTE | 2025-08-03 22:40 | PCM.HOSP.N ---
Hospitalist Note Bupropion HCl changed from SR form to IR so that it may be crushed and given per G-tube. She was on SR 150mg PO BID, changed to IR 100mg GT TID, so that she continues to receive the same daily amount.
[2025-08-04] VITALS (9 sets, daily range): BP systolic 110–139; BP diastolic 65–75; PULSE 105–118; RESP 17–19; TEMP 36.4–36.6; O2SAT 91–99; BMI 28.8
[2025-08-04] MEDS: Jevity 1.5 1,000 ML 55 ML GT (06:05)
[2025-08-04 06:18] LABS: Hematocrit 25.5 % (37-47); Hemoglobin 7.9 g/dL (12.0-15.0); Mean Corp Hgb Conc 31.0 g/dL (32-36); Mean Corpuscular Volume 98.5 fL (81-99); Mean Platelet Vol. 10.4 fl (6.2-12.0); Platelet Count 227 K/mm3 (150-450); RBC Distribution Width CV 14.3 % (11.6-14.6); RBC Distribution Width SD 49.9 fl (35.1-43.9); Red Blood Count 2.59 M/mm3 (4.2-5.4); White Blood Count 9.4 K/mm3 (4.4-11.0)
[2025-08-04 06:58] LABS: Anion Gap 9 (5-15); BUN 23 mg/dL (4-19); BUN/Creat Ratio 16.9 RATIO (10-20); Calcium,Total 8.2 mg/dL (7.6-11.0); Carbon Dioxide 26.2 mmol/L (21.0-32.0); Chloride 103 mmol/L (98-108); Estimated Creatinine Clearance 36.94 ml/min (50-250); Glucose 248 mg/dL (70-99); Potassium 5.0 mmol/L (3.3-5.1)
[2025-08-04] MEDS: Ipratropium 0.5 MG/2.5 ML SOLUTION INHALATION ×2 (07:35→19:15)
[2025-08-04] MEDS: Pantoprazole Sodium 40 MG in 0.9% Normal Saline (100mL MB+) 100 ML 300 MG IV (09:02)
[2025-08-04] MEDS: Cholecalciferol (Vit D3) 125 MCG CAPSULE (5,000 UNITS) GT (09:03)
[2025-08-04] MEDS: APIXABAN 5 MG TABLET GT ×2 (09:03→22:59)
[2025-08-04] MEDS: 0.9% Saline Lock 10 ML Syringe IV ×2 (09:05→23:00)
--- NOTE | 2025-08-04 10:16 | ST.MBS ---
Modified Barium Swallow Patient Information Study Date: 08/04/25 Study Time: 13:30 Direct Billable Minutes: 99 Total Minutes procedure & reportin Diagnosis: Dysphagia R13.10; Chronic respiratory failure J96.11 Referring Physician: Jonel Lorenzo Reason for Referral: Assess swallow function, assess risk for aspiration, and determine recommendations for least restrictive diet textures and compensatory strategies to improve swallowing safety. Medical History: The patient w/ extensive PMH below presented to [facility] ED 07/22/25 w/ worsening shortness of breath. Medical history significant for COPD with chronic respiratory failure on home 4 L nasal cannula, CKD stage IIIb, history of CVA, chronic debility, anxiety/depression, type 2 diabetes mellitus, hypertension and hyperlipidemia. Patient lives at home alone, daughter lives nearby. Patient arrived to the ED today in respiratory distress. She was placed on BiPAP shortly after arrival. CTA chest showed no PE, did show cardiomegaly with bilateral pleural effusions CHF as well as airspace opacities in the lower lungs concerning for atelectasis versus pneumonia; also showed a dilated esophagus with ingested material consistent with GERD. Patient had bruising noted on her neck so CT soft tissue neck was also done and showed no concerns the neck but did show fluid and air-filled dilatation of the visualized esophagus concerning for achalasia. In the ED, she was able to be put back on 4 L nasal cannula and was satting in the mid 90s. Pt admitted for concern for COPD and CHF exacerbations, as well as possible dysphagia with concern for aspiration PNA. Daughter informed the physician that the patient has had swallowing issues for some time now w/ episodes of regurgitation. Respiratory status continued to worsen, and 07/23/2025 pt was intubated. EGD 07/26/2025 Impression: - Food in the esophagus. Removal was successful.- Benign-appearing esophageal stenosis. Dilated.- Abnormal esophageal motility, consistent with achalasia.- No gross lesions in the entire stomach.- Gastric stenosis was found at the pylorus. - No gross lesions in the duodenal bulb. Recommendation: - Return patient to ICU for ongoing care. - Resume previous diet. - Continue present medications. - Await pathology results. Pt was extubated 07/27/2025 in the morning. Pt was referred for ST consult to assess risk for aspiration and determine recommendations for LRD textures. BSE revealed no s/s of aspiration w/ limited liquid and applesauce trials; however, given PMH of esophageal dysphagia, COPD, CVA, and recent intubation, NAIL MAKING MACHINE SETTER recommended NPO w/ limited sips/chips w/ plan for MBSS prior to diet advancement. MBSS 07/28/2025 revealed moderate-severe oropharyngeal dysphagia w/ aspiration of thin and mildly thick liquids by tsp and recommended strict NPO. PEG tube was subsequently placed. Pt is now tolerating trials of honey thickened liquids (4oz or less) w/ NAIL MAKING MACHINE SETTER and staff. NAIL MAKING MACHINE SETTER recommends this MBSS to re-assess swallow function and risk for aspiration to consider the patient for diet advancement. Medical History (Updated 07/22/25 @ 21:[address] Antoni Argueta, DO) Wears glasses Wears dentures Diabetes Walker as ambulation aid Arthritis Hepatitis High cholesterol Easy bruising Back pain Syncope Dietary restriction History of hiatal hernia Gastric reflux On home oxygen therapy Shortness of breath on exertion Leg cramps History of pain when walking History of edema History of irregular heartbeat CKD (chronic kidney disease), stage IV Chronic hypoxic respiratory failure, on home oxygen therapy Anxiety and depression Chronic obstructive pulmonary disease Iron deficiency anemia Hyperlipidemia Diabetes mellitus Former smoker Stroke/cerebrovascular accident Hypertension Emphysema of lung CKD stage 4 due to type 1 diabetes mellitus Current Diet Ordered: NPO Dentition: Edentulous Mental Status: Impaired (Some difficulty following command to take small sips) Respiratory Status: Oxygenating on Room Air Penetration-Aspiration Scale Penetration-Aspiration Scale: OBJECTIVE ASSESSMENT OF SWALLOW FUNCTION (QUANTITATIVE ? PER TRIAL): PENETRATION / ASPIRATION SCALE (AVENDANO): 1 = does not enter airway 2 = enters airway/above vocal folds/ejected 3 = enters airway/above vocal folds/not ejected 4 = enters airway/contacts vocal folds/ejected 5 = enters airway/contacts vocal folds/not ejected 6 = enters airway/below vocal folds/ejected 7 = enters airway/below vocal folds/not ejected despite effort 8 = enters airway/below vocal folds/no effort VIDEOFLOROSCOPIC SCALE SCORE (AVENDANO): Grade I = aspiration of material that has penetrated into the laryngeal vestibule, intact cough reflex Grade II = aspiration < 10 % of the bolus, intact cough reflex Grade III = aspiration of < 10 % of the bolus, reduced cough reflex or aspiration of > 10 % of the bolus, intact cough reflex Grade IV = aspiration of > 10 % of the bolus, reduced cough reflex Penetration-Aspiration Scale Score Honey Thick Liquid via teaspoon: Result: 1= does not enter airway [place] Thick Liquid via teaspoon: Result: 1= does not enter airway Thin Liquid via teaspoon: Result: 2= enter airway/above vocal folds/ejected Thin Liquid via teaspoon Trial 2: Result: 1= does not enter airway Thin Liquid via sequential sips: cup: Result: 5= enters airways/contacts vocal folds/not ejected Comment: Cued the patient for a small sip 2X before and during the trial [place] Thick Liquid via small single sip: cup: Result: 2= enter airway/above vocal folds/ejected Comment: Cued cough and re-swallow to attempt clearing thin liquid residues in the laryngeal vestibule from previous trial. Volitional cough = somewhat effective. Thin Liquid via single sip: straw: Result: 3= enters airways/above vocal folds/not ejected [place] Thick Liquid via small single sip: cup Trial 2: Result: 1= does not enter airway Pudding via teaspoon: Result: 1= does not enter airway Comment: Esophageal screen - Minimal retention in the lower esophagus. 1/4 Cookie: Result: 1= does not enter airway Comment: Esophageal screen - Minimal retention in the lower and middle esophagus. [place] Thick Liquid via single sip: straw: Result: 2= enter airway/above vocal folds/ejected Comment: Esophageal screen - Mild retention in the lower esophagus w/ retrograde flow to the middle esophagus. Thin Liquid via single sip: straw Effortful swallow: Result: 5= enters airways/contacts vocal folds/not ejected Thin Liquid via single sip: straw Chin tuck: Result: 1= does not enter airway Thin Liquid via single sip: straw Chin tuck Trial 2: Result: 5= enters airways/contacts vocal folds/not ejected Oral Phase Labial Seal: Interlabial escape, no progression to anterior lip Tongue Control During Bolus Hold: Posterior escape of greater than half of bolus Bolus Preparation/Mastication: Slow prolonged chewing/mashing with complete recollection Bolus Transport/Lingual Motion: Slowed tongue motion Oral Residue: Residue collection on oral structures Pharyngeal Phase Initiation of Pharyngeal Swallow: Bolus head in pyriforms Soft Palate Elevation: Trace column of contrast/air between soft palate and pharyngeal wall Laryngeal Elevation: Partial superior movement thyroid cart/partial apprx aryt-epig petiole Anterior Hyoid Excursion: Partial anterior movement Epiglottic Movement: Complete inversion Laryngeal Vestibule Closure at Height of Swallow: Incomplete; narrow column of air/contrast in laryngeal vestibule Pharyngeal Stripping Wave: Present - complete Pharyngoesophageal Segment Opening: Complete distension and complete duration; no obstruction of flow Tongue Base Retraction: Narrow column of contrast between tongue base & post. pharyngeal wall Pharyngeal Residue: Trace residue within or on pharyngeal structures Esophageal Phase Esophageal Clearance: Esophageal retention w/ retrograde flow below pharyngoesophageal seg. Diagnosis/Impression Diagnosis: Mild-moderate oropharyngeal dysphagia R13.12; Esophageal dysphagia R13.14 MBS Impressions: The oral phase is primarily marked by... -Decreased bolus control w/ loss of >1/2 of the liquids to the pyriform sinuses prior to swallow onset w/ sequential sips of thin liquids. -Slowed tongue motion for A-P transport. -Mild oral residues. -Slowed, but complete mastication of 1/4 cookie. The pharyngeal phase is primarily marked by... -Mild delay in swallow onset. -Decreased airway closure during the swallow due to decreased anterior hyoid excursion and laryngeal elevation. -Laryngeal penetration of thin liquids to the vocal folds w/o complete ejection placing the patient at risk for post prandial aspiration. No reflexive cough in response to laryngeal penetration to the vocal folds. Cued cough was somewhat effective in clearing penetrated contrast. The esophageal phase is primarily marked by... -Mild esophageal retention of cookie in the middle and lower esophagus. [place]/mildly thick liquid wash resulted in mild retention in the lower esophagus w/ retrograde flow to the middle esophagus. Recommendations Diet: Mildly Thick Liquids (Full Mildly/[place] Thick Liquid) Comment: Ok for medications whole in puree 1 at a time Compensatory Strategies: Small Bites, Small Sips, Slow Rate, Alternate bites/solids and sips/liquids, Sitting upright and Remain sitting upright for 30 minutes after PO intake Supervision: 1:1 Direct Supervision (For food and drink) Recommend Repeat Modified Barium Swallow: Yes (3-5 weeks after oropharyngeal strengthening to re-assess safety of swallow w/ thin liquids for potential diet advancement) Need for Skilled Speech Therapy Services: Yes Comment: Continue per acute POC for oropharyngeal strengthening and ongoing assessment of diet tolerance. Given hx of achalasia and vomiting of food/drink, NAIL MAKING MACHINE SETTER is recommending beginning on a full mildly thick liquid diet. If good diet tolerance of full mildly thick liquid diet, will trial soft solids for potential diet advancement to soft and bite size textures / mildly thick liquids in upcoming sessions. Education Completed: 1. Described result of evaluation., 2. Pt understands evaluation & agrees with goals and treatment plan. and 7. Pt requires further education on strategies & risks. Status Active ST Patient: Active Contact Information [facility] Speech Therapy:: Natasha Bull M.A. [facility]-NAIL MAKING MACHINE SETTER Speech-Language Pathologist [facility] [address] [place] [address] [email or web address] [phone]
[2025-08-04] MEDS: oxyCODONE Soln 5 MG/0.25 ML PO.SYRINGE PO ×2 (12:01→23:00)
--- NOTE | 2025-08-04 14:09 | PCM.PN.HOSP ---
Reason for Visit Chief Complaint: Worsening shortness of breath Subjective Subjective Saw patient at bedside this morning. Patient appeared similar today to previous days, no new concerns this morning. Objective Data Objective Data Vital Signs: Vital Signs Temp Pulse Resp BP Pulse Ox O2 Del Method O2 Flow Rate 97.9 F 105 H 17 110/66 96 Nasal Cannula 3 08/04/25 08:54 08/04/25 09:02 08/04/25 08:54 08/04/25 08:54 08/04/25 08:54 08/04/25 09:19 08/04/25 11:30 FiO2 30 07/29/25 11:51 Oxygen Flow Rate (L/min) 3 Oxygen Delivery Method Nasal Cannula Weight: 83.3 kg Body Mass Index (BMI) 28.8 Intake & Output: Intake and Output for Last 24 Hours 08/02/25 08/03/25 08/04/25 23:59 23:59 23:59 Intake Total 2417.50 / 2417.50 1333.59 / 1333.59 634.00 / 634.00 Output Total 1600 / 1600 1100 / 1100 Balance 817.50 / 817.50 1333.59 / 1333.59 -466.00 / -466.00 Lab / Micro Data 08/04/25 04:56 08/04/25 04:56 Labs: Laboratory Results - last 24 hr 07/27/25 05:40: Diff Path Review Reviewed 08/03/25 06:43: POC Glucose 298 H 08/03/25 17:21: POC Glucose 289 H 08/04/25 00:30: POC Glucose 266 H 08/04/25 04:56: WBC 9.4, RBC 2.59 L, Hgb 7.9 L, Hct 25.5 L, MCV 98.5, MCH 30.5, MCHC 31.0 L, RDW Std Deviation 49.9 H, RDW Coeff of Tessa 14.3, Plt Count 227, MPV 10.4, Sodium 138, Potassium 5.0, Chloride 103, Carbon Dioxide 26.2, Anion Gap 9, BUN 23 H, Creatinine 1.37 H, Estim Creat Clear Calc 36.94 L, Est GFR (MDRD) Non-Af 39 L, BUN/Creatinine Ratio 16.9, Glucose 248 H, Calcium 8.2 08/04/25 06:06: POC Glucose 279 H 08/04/25 11:54: POC Glucose 167 H Micro: Microbiology 07/22/25 12:32 Blood Culture (Wb) - Anticubital Left Blood Culture - Final No growth in 5 days. 07/22/25 12:32 Blood Culture (Wb) - Anticubital Right Blood Culture - Final No growth in 5 days. 07/22/25 22:05 Sputum, Induced/[place] Gram Stain - Final 07/22/25 22:05 Sputum, Induced/[place] Respiratory Culture - Final Mixed normal respiratory michelle. No Streptococcus pneumoniae, beta-hemolytic Streptococcus or Staphylococcus aureus isolated. 07/22/25 13:09 Urine, Catheterized Urine Culture - Final Culture exhibits no growth. 07/22/25 20:49 Mucosa - Nasopharyngeal Respiratory Panel (PCR) - Final 07/22/25 12:30 Mucosa - Nose SARS-CoV-2, Influenza & RSV (PCR) - Final Physical Exam Const alert, oriented x3, no apparent distress and average body habitus Constitutional Narrative: Pleasant elderly female, mildly fatigued appearing, otherwise sitting back comfortably in bed, conversing normally, in no acute distress. Stable. General Appearance: cooperative and comfortable HEENT normocephalic, head/scalp atraumatic, hearing grossly normal bilaterally, nasal mucous membranes and turbinates normal and moist oral mucous membranes Eyes PERRL, EOMs intact bilaterally and conjunctivae normal Neck full ROM Chest inspection of chest normal Resp normal respiratory effort, normal air movement, no use of accessory muscles and clear to auscultation bilaterally Cardio regular rate, regular rhythm, no murmurs and peripheral pulses 2+ throughout GI normal to inspection, nondistended, normoactive bowel sounds, soft to palpation, non-tender and non-distended GI Narrative: PEG tube in place, site appears clean and dry. Back/Spine normal ROM Extremity normal to inspection, full ROM and no pedal edema Skin no rashes or lesions noted Psych mental status grossly normal Assessment & Plan Assessment/Plan (1) Acute on chronic respiratory failure with hypoxia and hypercapnia: PLAN: Plan Patient is a 80-year-old female who presented to [facility] ED on 07/22/2025 with worsening shortness of breath. 1. 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 [place] followed. On 4 L nasal cannula at baseline. Initial ABG with pH 7.18, pCO2 59, pO2 60 on 6 L nasal cannula. CTA chest with bilateral pleural effusions and opacities concerning for atelectasis versus pneumonia. Initially had improvement with BiPAP however was then noted to have increased respiratory distress and required intubation on the evening of admission. Significant esophageal secretions were noted during intubation. Patient was treated with IV antibiotics and scheduled DuoNebs with some improvement, was able to be extubated to nasal cannula on 07/27. Stable on home 4 L nasal cannula since 07/31. Continue home inhalers. 2. Dysphagia secondary to achalasia ? GI followed. Speech therapy following. Patient with concerns for dysphagia on admit and CT scan showed esophageal contents on presentation. Patient had significant esophageal secretions with intubation on admit as above. 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 Unfortunately despite dilation with EGD, patient was still unable to manage secretions and maintain p.o. intake safely so PEG tube was placed on 07/29. Tube feeds increased to goal by 07/31 and patient tolerating without issue. Patient with some improvement with speech therapy, okay for honey thick liquids by chad with staff only on 08/01. Medically stable for discharge on 08/01, will need further speech therapy at rehab facility. 3. New onset A-fib with RVR ? Patient went into A-fib with RVR early on in the hospitalization requiring amiodarone drip and anticoagulation. Echo showed stage I diastolic dysfunction, EF 70%, monitor enlargement of left atrium, no significant valvular abnormalities. Patient was transition to amiodarone and metoprolol through the G-tube. Heart rate slightly elevated to the 110s to low 120s on 07/31 so metoprolol increased to 25 mg twice daily, then further uptitrated to 50 mg twice daily on 08/01. Continue to monitor telemetry and titrate medications as needed. Continue Eliquis that was started during this hospitalization. 4. Acute on chronic HFpEF, resolved ? CTA chest on admit with bilateral pleural effusions and echo with stage I diastolic dysfunction as above. Diuresed well during hospitalization. Euvolemic as of 07/31, no need for further diuretics at this time. Continue to monitor. 5. Acute on chronic debility with recent mechanical fall ? PT/OT/case management following. Patient lives at home alone, daughter lives close by. Patient with significant deconditioning during this prolonged hospitalization. Will need SNF placement on discharge. Medically ready for discharge on 08/01, awaiting placement. 6. BENITO on CKD3b, resolved ? Baseline creatinine appears to be around 1.4-1.6. Creatinine peaked at 2.59 during hospitalization, improved back to baseline by 07/31. Chronic medical conditions: ? Type 2 diabetes mellitus: Has had issues with intermittent hypoglycemia during hospitalization but blood sugars improved with tube feeds uptitrated to goal. Continue sliding scale insulin every 6 hours. Will plan to resume home glimepiride and pioglitazone on discharge. ? History of CVA, hypertension, hyperlipidemia: Continue losartan and metoprolol. On Eliquis as above. ? Anxiety/depression: Continue home venlafaxine and bupropion. ? Chronic anemia: Hemoglobin stable at baseline around 9 during hospitalization. DVT prophylaxis: Not indicated, on Eliquis CODE STATUS: Full code, verified Expected disposition: SNF, medically ready for discharge on 08/01, awaiting placement Total clinical time spent by myself addressing the patient's medical issues, reviewing all the data, and collaborating with patient's care team: 36 minutes. Charges/Coding Visit Charges Inpatient E&M: [id number] [facility] Hosp L2
[2025-08-05] VITALS (7 sets, daily range): BP systolic 92–135; BP diastolic 58–79; PULSE 98–112; RESP 16–18; TEMP 36.5–36.7; O2SAT 92–97; BMI 28.9
[2025-08-05] MEDS: Jevity 1.5 1,000 ML 40 ML GT (02:14)
[2025-08-05] MEDS: Ipratropium 0.5 MG/2.5 ML SOLUTION INHALATION (07:03)
--- NOTE | 2025-08-05 08:20 | CASEMGMT ---
Enrico Roldan has obtained auth to admit and will follow up on bed availability. RN CM updated. Maylin Lang DC Planning Asst.
[2025-08-05 08:55] LABS: Hematocrit 26.2 % (37-47); Hemoglobin 8.1 g/dL (12.0-15.0); Mean Corp Hgb Conc 30.9 g/dL (32-36); Mean Corpuscular Volume 98.1 fL (81-99); Mean Platelet Vol. 10.2 fl (6.2-12.0); Platelet Count 211 K/mm3 (150-450); RBC Distribution Width CV 14.3 % (11.6-14.6); RBC Distribution Width SD 50.6 fl (35.1-43.9); Red Blood Count 2.67 M/mm3 (4.2-5.4); White Blood Count 8.8 K/mm3 (4.4-11.0)
[2025-08-05] MEDS: APIXABAN 5 MG TABLET GT (09:25)
[2025-08-05] MEDS: Cholecalciferol (Vit D3) 125 MCG CAPSULE (5,000 UNITS) GT (09:27)
[2025-08-05] MEDS: Pantoprazole Sodium 40 MG in 0.9% Normal Saline (100mL MB+) 100 ML 300 MG IV (09:30)
[2025-08-05] MEDS: 0.9% Saline Lock 10 ML Syringe IV (09:31)
[2025-08-05 09:34] LABS: Anion Gap 7 (5-15); BUN 28 mg/dL (4-19); BUN/Creat Ratio 17.4 RATIO (10-20); Calcium,Total 8.2 mg/dL (7.6-11.0); Carbon Dioxide 27.7 mmol/L (21.0-32.0); Chloride 99 mmol/L (98-108); Estimated Creatinine Clearance 31.72 ml/min (50-250); Glucose 270 mg/dL (70-99); Potassium 5.5 mmol/L (3.3-5.1)
--- NOTE | 2025-08-05 10:08 | TREXTCAR_ITS ---
Diet Diet Order/Speech Therapy: INPATIENT Hospital Diet / Speech Therapy Order(s) 08/04/25 14:12 Diet: Full Liquid Liquid Consistency:: Medill/Mildly Thick Speech Therapy Comments: Direct supervision for food/drink Routine Orders/Code Status Code Status: Full Code DC O2, CPAP, BIPAP needs Home O2 Discharge instructions: Yes Type of respiratory needs?: Oxygen (4) Oxygen frequency: Continuous Continuous oxygen liters per minute: 4 Wound(s) ABDOMEN PEG INSERTION SITE: Wound Type: Surgical Incision Left inner ankle: Wound Type: Abrasion left outer ankle: Wound Type: Abrasion Therapies Weight Bearing: Full weight bearing Physical Therapy: Eval and Treat Occupational Therapy: Eval and Treat Speech Therapy: Eval and Treat Problem/Diagnosis (1) Acute on chronic respiratory failure with hypoxia and hypercapnia: Status: Chronic Code(s): J96.21 - Acute and chronic respiratory failure with hypoxia; J96.22 - Acute and chronic respiratory failure with hypercapnia Plan Patient is a 80-year-old female who presented to [facility] ED on 07/22/2025 with worsening shortness of breath. Hospital course as noted below. Patient discharged to SNF in stable condition on 08/05. 1. 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 Casting Machine Adjuster followed. On 4 L nasal cannula at baseline. Initial ABG with pH 7.18, pCO2 59, pO2 60 on 6 L nasal cannula. CTA chest with bilateral pleural effusions and opacities concerning for atelectasis versus pneumonia. Initially had improvement with BiPAP however was then noted to have increased respiratory distress and required intubation on the evening of admission. Significant esophageal secretions were noted during intubation. Patient was treated with IV antibiotics and scheduled DuoNebs with some improvement, was able to be extubated to nasal cannula on 07/27. Stable on home 4 L nasal cannula since 07/31. Continue home inhalers. 2. Dysphagia secondary to achalasia ? GI followed. Speech therapy followed. Patient with concerns for dysphagia on admit and CT scan showed esophageal contents on presentation. Patient had si gnificant esophageal secretions with intubation on admit as above. 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 Unfortunately despite dilation with EGD, patient was still unable to manage secretions and maintain p.o. intake safely so PEG tube was placed on 07/29. Tube feeds increased to goal by 07/31 and patient tolerating without issue. Patient with some improvement by discharge, okay for me full mildly/nectar thick liquid diet with one-to-one supervision. Will continue tube feeds on discharge to allow patient to meet caloric goals. Will need continued speech therapy on discharge. 3. New onset A-fib with RVR, improved ? Patient went into A-fib with RVR early on in the hospitalization requiring amiodarone drip and anticoagulation. Echo showed stage I diastolic dysfunction, EF 70%, monitor enlargement of left atrium, no significant valvular abnormalities. Patient was transition to amiodarone and metoprolol through the G-tube. Heart rate slightly elevated to the 110s to low 120s on 07/31 so metoprolol increased to 25 mg twice daily, then further uptitrated to 50 mg twice daily on 08/01. Heart rate remained much improved with this uptitration. Continue Eliquis that was started during this hospitalization. 4. Acute on chronic HFpEF, resolved ? CTA chest on admit with bilateral pleural effusions and echo with stage I diastolic dysfunction as above. Diuresed well during hospitalization. Euvolemic as of 07/31, no need for further diuretics. 5. Acute on chronic debility with recent mechanical fall ? PT/OT/case management followed. Patient lives at home alone, daughter lives close by. Patient with significant deconditioning during this prolonged hospitalization. Medically ready for discharge on 08/01, discharged to SNF in stable condition on 08/05. 6. BENITO on CKD3b, resolved ? Baseline creatinine appears to be around 1.4-1.6. Creatinine peaked at 2.59 during hospitalization, improved back to baseline by 07/31. Chronic medical conditions: ? Type 2 diabetes mellitus: Has had issues with intermittent hypoglycemia during hospitalization but blood sugars improved with tube feeds uptitrated to goal. Continue sliding scale insulin every 6 hours. Will plan to resume home glimepiride and pioglitazone on discharge. ? History of CVA, hypertension, hyperlipidemia: Continue losartan and metoprolol. On Eliquis as above. ? Anxiety/depression: Continue home venlafaxine and bupropion. ? Chronic anemia: Hemoglobin stable at baseline around 9 during hospitalization. Total clinical time spent by myself addressing the patient's medical issues, reviewing all the data, and collaborating with patient's care team: 42 minutes. Allergies/Procedures Done in Hospital Allergies No Known Allergies Allergy (Verified 07/22/25 13:19) Procedures: EKG, Intubation, Transthoracic Echo and - (Chest x-ray x 6, CTA chest, CT soft tissue neck, renal ultrasound, modified barium swallow study x 2) Type of Care/Length of Stay Estimated LOS: Convalescent Care Less Than 30 days Type of Care Needed: Skilled Rehab Potential: Fair Prognosis: Fair Additional Orders/Day of Discharge H&P will serve as current which was dated: 07/22/25 Day of Discharge: 08/05/25 Dietary and Speech Recommendations Dietitian Recommendations/Changes: 1. Recommend advanced diet as tolerated to cardiac per DURABLE MEDICAL EQUIPMENT REPAIRER recommendations. 2. Increase goal rate of Jevity 1.5 to 55ml/hr with 150 ml water flush every 4 hours. 3. Will monitor weight trends and labs. 4. Will make adjustments to tube feeding as needed. At time of discharge recommend Jevity 1.5Cal goal rate 55mL/hr with 150mL water flushes every 4 hours. For bolus feedings recommend Jevity 1.5Cal via PEG bolus 265mL 5 times daily with 90mL water flushes before and after each feeding to provide 1987 calories, 84g protein, and 1907mL total free water. Or bolus 220mL 6 times daily with 75mL before and after each feeding. Discharge Plan Admission Admit Date/Time: 07/22/25 17:16 Primary Reason for Your Visit: Shortness of breath Attending Provider: Antoni Argueta Primary Care Provider: TAYLOR TAYLOR Consulting Providers: Bulmaro Gandara; Kamron Nguyen; Doris Jeffries; Karlee Rodriguez; Shelby Dumont; Antoni Argueta; Ying Jay; Jonel Lorenzo; Gena Porter Discharge Orders/Prescriptions Prescriptions: New amiodarone 200 mg Tablet 200 mg G-tube BID 30 Days Qty: 60 0RF bupropion HCl 100 mg Tablet 100 mg G-tube TID 30 Days Qty: 90 0RF metoprolol tartrate 50 mg Tablet 50 mg G-tube BID 30 Days Qty: 60 0RF oxycodone 20 mg/mL Concentrate 5 mg PO BID PRN PRN (Reason: Pain Score 6-10) 30 Days Qty: 0 0RF Eliquis 5 mg Tablet 5 mg G-tube BID 30 Days Qty: 60 0RF IV with Additives Jevity 1.5 1000 ML 40 mls/hr GT Ordered By: Antoni Argueta DO Last Taken: 08/05/25 02:14 40 mls/hr Continued glimepiride 2 mg tablet 2 mg PO BID lovastatin 40 MG tablet 40 mg PO QHS Patient Comments: REDUCES CHOLESTEROL cyanocobalamin (vitamin B-12) [Vitamin B-12] 1,000 MCG tablet 1,000 mg PO DAILY Patient Comments: VITAMIN SUPPLEMENT trazodone 150 MG tablet 150 mg PO QHS Patient Comments: SLEEP montelukast 10 MG tablet 10 mg PO DAILY Patient Comments: ALLERGIES albuterol sulfate [Ventolin HFA] 1 INHALER inhaler 1 - 2 puff inhalation Q4H PRN PRN (Reason: Sob &/Or Wheezing) Qty: 1 0RF pioglitazone 30 MG tablet 30 mg PO DAILY@0800 esomeprazole magnesium 40 mg capsule,delayed release(DR/EC) 40 mg PO DAILY aripiprazole 10 mg tablet 10 mg PO DAILY losartan 50 mg tablet 50 mg PO DAILY Qty: 30 1RF OXYGEN - Supplemental ([facility] INFORMATIONAL USE ONLY) Patient Comments: per CM noted, DME through [facility], current orders are 4 l/m continuous cholecalciferol (vitamin D3) 125 mcg (5,000 unit) capsule 125 mcg PO DAILY Changed ferrous sulfate 325 mg (65 mg iron) tablet 325 mg PO DAILY 30 Days Qty: 30 0RF Discontinued bupropion HCl 150 MG tablet sustained-release 12 hr 150 mg PO BID Patient Comments: DEPRESSION venlafaxine 150 MG capsule,extended release 24hr 150 mg PO DAILY Patient Comments: MOOD aspirin 81 MG tablet,chewable 81 mg PO DAILY@0800 Patient Comments: HEALTH MAINTENANCE bisoprolol fumarate 5 mg tablet 5 mg PO DINNER oxycodone-acetaminophen 5-325 mg tablet 1 tab PO Q12H PRN (Reason: back pain) Patient Comments: TAKE 1 TABLET BY MOUTH EVERY 12 HOURS NEEDED FOR PAIN FOR 30 DAYS Referrals / Follow Up: Grady Mckeon DO [Non-Staff, Family Practice] TAYLOR TAYLOR NP-C [Primary Care Provider, Family Practice] Disposition Disposition (needs filled in before D/C Order can be placed): Care Home Facility
--- NOTE | 2025-08-05 10:20 | PCM.DC.SUM ---
Providers Date of Admission: 07/22/25 Date of Discharge: 08/05/25 Primary Care Physician: LILI STOREY Consultations 07/22/25 18:32 Consult: Gastroenterology Routine Consulting Provider: [facility] Reason for Consult: dysphagia, fluid/air-filled dilation of esophagus on CT, achalasia? EMERGENT Consult: No Notified: Yes Date Notified: 07/22/25 Time Notified: 18:35 Method of Notification: Text 07/22/25 22:10 Consult: Property Inspector / Pulmonary Medicine Routine Consulting Provider: Intensivists/Pulmonary Med Reason for Consult: acute respiratory failure EMERGENT Consult: No Notified: Yes Date Notified: 07/22/25 Time Notified: 04:57 Method of Notification: Answering Service Reason For Visit: ACUTE RESPIRATORY FAILURE TO COPD/CHC EXACERBATION Diagnosis Discharge Diagnosis (1) Acute on chronic respiratory failure with hypoxia and hypercapnia: Status: Chronic Code(s): J96.21 - Acute and chronic respiratory failure with hypoxia; J96.22 - Acute and chronic respiratory failure with hypercapnia Medications at Discharge Home Medications cyanocobalamin (vitamin B-12) 1,000 mcg tablet (Vitamin B-12) 1,000 mg PO DAILY supplement 12/27/16 lovastatin 40 mg tablet 40 mg PO QHS cholesterol 12/27/16 montelukast 10 mg tablet 10 mg PO DAILY allergies 12/27/16 trazodone 150 mg tablet 150 mg PO QHS insomnia 12/27/16 albuterol sulfate 90 mcg/actuation aerosol inhaler (Ventolin HFA) 1 - 2 puff inhalation Q4H PRN PRN Sob &/Or Wheezing ##1 12/30/16 pioglitazone 30 mg tablet 30 mg PO DAILY@0800 diabetes 01/26/22 aripiprazole 10 mg tablet 10 mg PO DAILY mood 02/29/24 esomeprazole magnesium 40 mg capsule,delayed release 40 mg PO DAILY acid reflux 02/29/24 losartan 50 mg tablet 50 mg PO DAILY #30 tabs 03/03/24 glimepiride 2 mg tablet 2 mg PO BID diabetes 05/11/24 OXYGEN - Supplemental ([facility] INFORMATIONAL USE ONLY) hypoxia 07/23/25 cholecalciferol (vitamin D3) 125 mcg (5,000 unit) capsule 125 mcg PO DAILY supplement 07/23/25 IV with Additives 40 mls/hr GT 08/05/25 amiodarone 200 mg tablet 200 mg G-tube BID 30 days #60 tabs 08/05/25 apixaban 5 mg tablet (Eliquis) 5 mg G-tube BID 30 days #60 tabs 08/05/25 bupropion HCl 100 mg tablet 100 mg G-tube TID 30 days #90 tabs 08/05/25 ferrous sulfate 325 mg (65 mg iron) tablet 325 mg PO DAILY supplement 30 days #30 tabs 08/05/25 metoprolol tartrate 50 mg tablet 50 mg G-tube BID 30 days #60 tabs 08/05/25 oxycodone 20 mg/mL oral concentrate 5 mg (0.25 mL) PO BID PRN PRN Pain Score 6-10 30 days #0 mL 08/05/25 Hospital Course Operations None Procedures EKG, Intubation, Modified Barium Swallow, PICC line placement, Transthoracic echo and - (Chest x-ray x 6, CTA chest, CT soft tissue neck, renal ultrasound) Summary of Care Provided Minutes Spent on Discharge: 42 Hospital Course: Patient is a 80-year-old female who presented to [facility] ED on 07/22/2025 with worsening shortness of breath. Hospital course as noted below. Patient discharged to SNF in stable condition on 08/05. 1. 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 Property Inspector followed. On 4 L nasal cannula at baseline. Initial ABG with pH 7.18, pCO2 59, pO2 60 on 6 L nasal cannula. CTA chest with bilateral pleural effusions and opacities concerning for atelectasis versus pneumonia. Initially had improvement with BiPAP however was then noted to have increased respiratory distress and required intubation on the evening of admission. Significant esophageal secretions were noted during intubation. Patient was treated with IV antibiotics and scheduled DuoNebs with some improvement, was able to be extubated to nasal cannula on 07/27. Stable on home 4 L nasal cannula since 07/31. Continue home inhalers. 2. Dysphagia secondary to achalasia ? GI followed. Speech therapy followed. Patient with concerns for dysphagia on admit and CT scan showed esophageal contents on presentation. Patient had significant esophageal secretions with intubation on admit as above. 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 Unfortunately despite dilation with EGD, patient was still unable to manage secretions and maintain p.o. intake safely so PEG tube was placed on 07/29. Tube feeds increased to goal by 07/31 and patient tolerating without issue. Patient with some improvement by discharge, okay for me full mildly/nectar thick liquid diet with one-to-one supervision. Will continue tube feeds on discharge to allow patient to meet caloric goals. Will need continued speech therapy on discharge. 3. New onset A-fib with RVR, improved ? Patient went into A-fib with RVR early on in the hospitalization requiring amiodarone drip and anticoagulation. Echo showed stage I diastolic dysfunction, EF 70%, monitor enlargement of left atrium, no significant valvular abnormalities. Patient was transition to amiodarone and metoprolol through the G-tube. Heart rate slightly elevated to the 110s to low 120s on 07/31 so metoprolol increased to 25 mg twice daily, then further uptitrated to 50 mg twice daily on 08/01. Heart rate remained much improved with this uptitration. Continue Eliquis that was started during this hospitalization. 4. Acute on chronic HFpEF, resolved ? CTA chest on admit with bilateral pleural effusions and echo with stage I diastolic dysfunction as above. Diuresed well during hospitalization. Euvolemic as of 07/31, no need for further diuretics. 5. Acute on chronic debility with recent mechanical fall ? PT/OT/case management followed. Patient lives at home alone, daughter lives close by. Patient with significant deconditioning during this prolonged hospitalization. Medically ready for discharge on 08/01, discharged to SNF in stable condition on 08/05. 6. BENITO on CKD3b, resolved ? Baseline creatinine appears to be around 1.4-1.6. Creatinine peaked at 2.59 during hospitalization, improved back to baseline by 07/31. Chronic medical conditions: ? Type 2 diabetes mellitus: Has had issues with intermittent hypoglycemia during hospitalization but blood sugars improved with tube feeds uptitrated to goal. Continue sliding scale insulin every 6 hours. Will plan to resume home glimepiride and pioglitazone on discharge. ? History of CVA, hypertension, hyperlipidemia: Continue losartan and metoprolol. On Eliquis as above. ? Anxiety/depression: Continue home venlafaxine and bupropion. ? Chronic anemia: Hemoglobin stable at baseline around 9 during hospitalization. Total clinical time spent by myself addressing the patient's medical issues, reviewing all the data, and collaborating with patient's care team: 42 minutes. Physical Exam Const alert, oriented x3, no apparent distress and average body habitus Constitutional Narrative: Pleasant elderly female, mildly fatigued appearing, otherwise sitting back comfortably in bed, conversing normally, in no acute distress. Stable. General Appearance: cooperative and comfortable HEENT normocephalic, head/scalp atraumatic, hearing grossly normal bilaterally, nasal mucous membranes and turbinates normal and moist oral mucous membranes Eyes PERRL, EOMs intact bilaterally and conjunctivae normal Neck full ROM Chest inspection of chest normal Resp normal respiratory effort, normal air movement, no use of accessory muscles and clear to auscultation bilaterally Cardio regular rate, regular rhythm, no murmurs and peripheral pulses 2+ throughout GI normal to inspection, nondistended, normoactive bowel sounds, soft to palpation, non-tender and non-distended GI Narrative: PEG tube in place, site appears clean and dry. Back/Spine normal ROM Extremity normal to inspection, full ROM and no pedal edema Skin no rashes or lesions noted Psych mental status grossly normal Weight / BMI Weight Weight: 83.8 kg Body Mass Index (BMI) 28.9 ABG / Lab / Microbiology Data 08/05/25 08:15 08/05/25 08:15 Laboratory: Laboratory Results - last 24 hr 08/04/25 08:59: POC Glucose 349 H 08/04/25 16:51: POC Glucose 167 H 08/04/25 23:19: POC Glucose 288 H 08/05/25 05:43: POC Glucose 199 H 08/05/25 08:15: WBC 8.8, RBC 2.67 L, Hgb 8.1 L, Hct 26.2 L, MCV 98.1, MCH 30.3, MCHC 30.9 L, RDW Std Deviation 50.6 H, RDW Coeff of Tessa 14.3, Plt Count 211, MPV 10.2, Sodium 134, Potassium 5.5 H, Chloride 99, Carbon Dioxide 27.7, Anion Gap 7, BUN 28 H, Creatinine 1.60 H, Estim Creat Clear Calc 31.72 L, Est GFR (MDRD) Non-Af 33 L, BUN/Creatinine Ratio 17.4, Glucose 270 H, Calcium 8.2 08/05/25 12:09: POC Glucose 325 H Microbiology: Microbiology 07/22/25 12:32 Blood Culture (Wb) - Anticubital Left Blood Culture - Final No growth in 5 days. 07/22/25 12:32 Blood Culture (Wb) - Anticubital Right Blood Culture - Final No growth in 5 days. 07/22/25 22:05 Sputum, Induced/Lukens Gram Stain - Final 07/22/25 22:05 Sputum, Induced/Lukens Respiratory Culture - Final Mixed normal respiratory michelle. No Streptococcus pneumoniae, beta-hemolytic Streptococcus or Staphylococcus aureus isolated. 07/22/25 13:09 Urine, Catheterized Urine Culture - Final Culture exhibits no growth. 07/22/25 20:49 Mucosa - Nasopharyngeal Respiratory Panel (PCR) - Final 07/22/25 12:30 Mucosa - Nose SARS-CoV-2, Influenza & RSV (PCR) - Final D/C Instructions DC O2, CPAP, BIPAP Needs Home O2 Discharge instructions: Yes Type of respiratory needs?: Oxygen (4) Oxygen frequency: Continuous Continuous oxygen liters per minute: 4 DC home with Oxygen: No Meaningful Use Info Meaningful Use Meaningful Use Diagnoses (Choose all that apply): None applicable Discharge Plan Admission Admit Date/Time: 07/22/25 17:16 Primary Reason for Your Visit: Shortness of breath Attending Provider: Antoni Argueta Primary Care Provider: TAYLOR TAYLOR Consulting Providers: Bulmaro Gandara; Kamron Nguyen; Doris Jeffries; Karlee Rodriguez; Shelby Dumont; Antoni Argueta; Ying Jay; Jonel Lorenzo; Gena Porter Discharge Orders/Prescriptions Prescriptions: New amiodarone 200 mg Tablet 200 mg G-tube BID 30 Days Qty: 60 0RF bupropion HCl 100 mg Tablet 100 mg G-tube TID 30 Days Qty: 90 0RF metoprolol tartrate 50 mg Tablet 50 mg G-tube BID 30 Days Qty: 60 0RF oxycodone 20 mg/mL Concentrate 5 mg PO BID PRN PRN (Reason: Pain Score 6-10) 30 Days Qty: 0 0RF Eliquis 5 mg Tablet 5 mg G-tube BID 30 Days Qty: 60 0RF IV with Additives Jevity 1.5 1000 ML 40 mls/hr GT Ordered By: Antoni Argueta DO Last Taken: 08/05/25 02:14 40 mls/hr Continued glimepiride 2 mg tablet 2 mg PO BID lovastatin 40 MG tablet 40 mg PO QHS Patient Comments: REDUCES CHOLESTEROL cyanocobalamin (vitamin B-12) [Vitamin B-12] 1,000 MCG tablet 1,000 mg PO DAILY Patient Comments: VITAMIN SUPPLEMENT trazodone 150 MG tablet 150 mg PO QHS Patient Comments: SLEEP montelukast 10 MG tablet 10 mg PO DAILY Patient Comments: ALLERGIES albuterol sulfate [Ventolin HFA] 1 INHALER inhaler 1 - 2 puff inhalation Q4H PRN PRN (Reason: Sob &/Or Wheezing) Qty: 1 0RF pioglitazone 30 MG tablet 30 mg PO DAILY@0800 esomeprazole magnesium 40 mg capsule,delayed release(DR/EC) 40 mg PO DAILY aripiprazole 10 mg tablet 10 mg PO DAILY losartan 50 mg tablet 50 mg PO DAILY Qty: 30 1RF OXYGEN - Supplemental ([facility] INFORMATIONAL USE ONLY) Patient Comments: per CM noted, DME through [facility], current orders are 4 l/m continuous cholecalciferol (vitamin D3) 125 mcg (5,000 unit) capsule 125 mcg PO DAILY Changed ferrous sulfate 325 mg (65 mg iron) tablet 325 mg PO DAILY 30 Days Qty: 30 0RF Discontinued bupropion HCl 150 MG tablet sustained-release 12 hr 150 mg PO BID Patient Comments: DEPRESSION venlafaxine 150 MG capsule,extended release 24hr 150 mg PO DAILY Patient Comments: MOOD aspirin 81 MG tablet,chewable 81 mg PO DAILY@0800 Patient Comments: HEALTH MAINTENANCE bisoprolol fumarate 5 mg tablet 5 mg PO DINNER oxycodone-acetaminophen 5-325 mg tablet 1 tab PO Q12H PRN (Reason: back pain) Patient Comments: TAKE 1 TABLET BY MOUTH EVERY 12 HOURS NEEDED FOR PAIN FOR 30 DAYS Referrals / Follow Up: Grady Mckeon DO [Non-Staff, Family Practice] TAYLOR TAYLOR NP-C [Primary Care Provider, Family Practice] Disposition Disposition (needs filled in before D/C Order can be placed): [facility] Charges/Coding Visit Charges Inpatient E&M: 74689 Disch Hosp >30min
--- NOTE | 2025-08-05 11:14 | PHA.DC.MR.R ---
Pharmacy [place] Med Reconciliation Pharmacy Service has performed discharge medication reconciliation for this patient. The patient's discharge medication list was reviewed for discrepancies and discrepancies were resolved. Medications at Discharge Home Medications cyanocobalamin (vitamin B-12) 1,000 mcg tablet (Vitamin B-12) 1,000 mg PO DAILY supplement 12/27/16 lovastatin 40 mg tablet 40 mg PO QHS cholesterol 12/27/16 montelukast 10 mg tablet 10 mg PO DAILY allergies 12/27/16 trazodone 150 mg tablet 150 mg PO QHS insomnia 12/27/16 albuterol sulfate 90 mcg/actuation aerosol inhaler (Ventolin HFA) 1 - 2 puff inhalation Q4H PRN PRN Sob &/Or Wheezing ##1 12/30/16 pioglitazone 30 mg tablet 30 mg PO DAILY@0800 diabetes 01/26/22 aripiprazole 10 mg tablet 10 mg PO DAILY mood 02/29/24 esomeprazole magnesium 40 mg capsule,delayed release 40 mg PO DAILY acid reflux 02/29/24 losartan 50 mg tablet 50 mg PO DAILY #30 tabs 03/03/24 glimepiride 2 mg tablet 2 mg PO BID diabetes 05/11/24 OXYGEN - Supplemental ([facility] INFORMATIONAL USE ONLY) hypoxia 07/23/25 cholecalciferol (vitamin D3) 125 mcg (5,000 unit) capsule 125 mcg PO DAILY supplement 07/23/25 IV with Additives 40 mls/hr GT 08/05/25 amiodarone 200 mg tablet 200 mg G-tube BID 30 days #60 tabs 08/05/25 apixaban 5 mg tablet (Eliquis) 5 mg G-tube BID 30 days #60 tabs 08/05/25 bupropion HCl 100 mg tablet 100 mg G-tube TID 30 days #90 tabs 08/05/25 ferrous sulfate 325 mg (65 mg iron) tablet 325 mg PO DAILY supplement 30 days #30 tabs 08/05/25 metoprolol tartrate 50 mg tablet 50 mg G-tube BID 30 days #60 tabs 08/05/25 oxycodone 20 mg/mL oral concentrate 5 mg (0.25 mL) PO BID PRN PRN Pain Score 6-10 30 days #0 mL 08/05/25
--- NOTE | 2025-08-05 11:26 | CASEMGMT ---
Discharge Planning Discharge orders, signed med list, and transport time sent via [facility] to [facility]. Physicians will transport pt by wheelchair at 2p. Nursing, SW, pt, and her daughter/HC POA (Abi) updated. Maylin Lang DC Planning Asst.
--- NOTE | 2025-08-05 11:47 | NURSING ---
Called in report to [facility], spoke with nurse Love at 11:44am.
== END 2025-08-05 15:48 | disposition skilled nursing facility (03) | DRG 207 ==
LOC: ED 14:12 → PCU 17:57 → ICU 07-23 05:51 → PCU 07-30 16:15
PROVIDERS: Internal Medicine; Internal Medicine Critical Care Medicine; Internal Medicine Gastroenterology; Admitting Provider Hospitalist; Emergency Provider Student in an Organized Health Care Education/Training Program; PCP Nurse Practitioner Family; Visit Provider Hospitalist
PROC: 0DJ08ZZ Inspection of Upper Intestinal Tract, Via Natural or Artificial Opening Endoscopic (ICD-10-PCS; CPT 43235; principal; 2025-07-26 15:10)
DX: J96.21 Acute and chronic respiratory failure with hypoxia (principal); J69.0 Pneumonitis due to inhalation of food and vomit; I50.33 Acute on chronic diastolic (congestive) heart failure; K31.1 Adult hypertrophic pyloric stenosis; E87.1 Hypo-osmolality and hyponatremia; J44.1 Chronic obstructive pulmonary disease with (acute) exacerbation; I13.0 Hypertensive heart and chronic kidney disease with heart failure and stage 1 through stage 4 chronic kidney disease, or unspecified chronic kidney disease; N17.9 Acute kidney failure, unspecified; K22.0 Achalasia of cardia; E11.22 Type 2 diabetes mellitus with diabetic chronic kidney disease; N18.32 Chronic kidney disease, stage 3b; F32.A Depression, unspecified; D50.9 Iron deficiency anemia, unspecified; I48.0 Paroxysmal atrial fibrillation; J96.22 Acute and chronic respiratory failure with hypercapnia; K22.2 Esophageal obstruction; E78.00 Pure hypercholesterolemia, unspecified; F41.9 Anxiety disorder, unspecified; E11.65 Type 2 diabetes mellitus with hyperglycemia; Z79.4 Long term (current) use of insulin; K21.9 Gastro-esophageal reflux disease without esophagitis; E87.5 Hyperkalemia; E11.649 Type 2 diabetes mellitus with hypoglycemia without coma; K29.70 Gastritis, unspecified, without bleeding; J30.9 Allergic rhinitis, unspecified; R53.81 Other malaise; Z79.01 Long term (current) use of anticoagulants; Z79.82 Long term (current) use of aspirin; Z79.84 Long term (current) use of oral hypoglycemic drugs; Z79.51 Long term (current) use of inhaled steroids; Z79.899 Other long term (current) drug therapy; Z87.891 Personal history of nicotine dependence; Z99.81 Dependence on supplemental oxygen; Z86.73 Personal history of transient ischemic attack (TIA), and cerebral infarction without residual deficits
CPT/HCPCS: 31500; 31720; 36415; 36569; 36600; 70491; 71045; 71275; 74230; 76770; 80048; 80053; 81001; 82550; 82803; 82947; 82962; 83036; 83605; 83735; 83880; 84100; 84145; 84478; 84484; 85018; 85025; 85027; 85610; 85730; 87040; 87070; 87086; 87205; 87631; 87633; 88305; 92526; 92611; 93005; 93306; 94002; 94003; 94640; 94660; 94668; 94762; 94799; 97110; 97116; 97162; 97166; 97530; 97535; 97802; 97803; 99252; 99285; Q9957; Q9967; A4216; C1769; C8929; G0463; J0295; J0696; J1938

== ENCOUNTER 2025-08-19 08:29 | Outpatient (CLI) | payer MEDICARE, SELFPAY ==
[2025-08-19] VITALS (8 sets, daily range): BP systolic 133–162; BP diastolic 59–71; PULSE 73–78; RESP 16–18; TEMP 35.7–36.4; O2SAT 92–97
== END 2025-08-19 23:59 | disposition home or self-care (01) ==
LOC: MEDOUTP 08:29
PROVIDERS: PCP Nurse Practitioner Family; Referring Provider Nurse Practitioner Adult Health; Visit Provider Nurse Practitioner Adult Health
DX: D64.9 Anemia, unspecified (principal)
CPT/HCPCS: 36430; 86850; 86900; 86901; P9016

== ENCOUNTER 2025-08-23 00:24 | Emergency (ER) | payer MEDICARE, SELFPAY ==
[2025-08-23] VITALS (9 sets, daily range): BP systolic 153–173; BP diastolic 74–82; PULSE 78–82; RESP 18–22; TEMP 36.4–36.7; O2SAT 80–98; BMI 30.6
--- NOTE | 2025-08-23 00:58 | RAD_ITS ---
PROCEDURE: CHEST 1 VIEW (PORTABLE) 08/23/2025 REASON FOR EXAM: DYSPNEA TECHNIQUE: Frontal view of the chest. COMPARISON: 07/28/2025. FINDINGS: Significant increase in pulmonary venous congestion. Significant increase in interstitial pulmonary congestion. Increased left pleural effusion. Increased passive atelectatic airspace disease of the left lower lobe. Right PICC line has been removed in the interim. Enlarged cardiac silhouette. Normal mediastinum and ninfa. Normal visualized pulmonary arteries. Atheromatous plaques of the visualized aortic arch and descending thoracic aorta. Diffuse spondylosis of the visualized thoracic spine. Normal visualized ribs, clavicles. Degenerative joint disease. There is no demonstrated abnormality of the visualized soft tissue structures of the upper abdomen. RAD/Chest 1 View (Portable) IMPRESSION: Significant increase in pulmonary venous congestion. Significant increase in interstitial pulmonary congestion. Increased left pleural effusion. Increased passive atelectatic airspace disease of the left lower lobe. Right PICC line has been removed in the interim. Enlarged cardiac silhouette. Reading [facility]
[2025-08-23 01:11] LABS: Hematocrit 31.7 % (37-47); Hemoglobin 9.7 g/dL (12.0-15.0); Immature Granulocytes Count 0.220 X10^3/uL (0.0-0.0); Mean Corp Hgb Conc 30.6 g/dL (32-36); Mean Corpuscular Volume 98.1 fL (81-99); Mean Platelet Vol. 9.7 fl (6.2-12.0); NRBC Flagged by Analyzer 0 % (0-5); Platelet Count 313 K/mm3 (150-450); RBC Distribution Width CV 15.5 % (11.6-14.6); RBC Distribution Width SD 55.2 fl (35.1-43.9); Red Blood Count 3.23 M/mm3 (4.2-5.4); White Blood Count 10.0 K/mm3 (4.4-11.0)
--- OUTSIDE RECORDS SUMMARY | 2025-08-23 01:34 | XMS RPT_ITS | CCD ---
Author Organization [facility]iniSy[facility] Care Team Providers Care Cake Batter Mixer Name Role Phone BURKE GRAMAJO Unavailable Unavailable DANILO ONEILL Unavailable Unavailable DANILO ONEILL Unavailable Unavailable Dr. Danilo Oneill Primary Care Provider Dr. Nayan Veras Emergency Provider Dr. Todd Crump Admit Provider Dr. Todd Crump Referring Provider Dr. Todd Crump Other Provider Dr. Kavin Mcclain Attending Provider Dr. Kavin Mcclain Other Provider Anthony Hernandez Attending Provider Unavailable Dr. Bharati Kirkland Attending Provider [phone] Dr. Bharati Kirkland Other Provider Dustin LOOP SEWER, LOOP SEWER-C [place] Attending Provider DANILO ONEILL DO Attending Unavailable DANILO ONEILL DO Primary Care Unavailable Dr. Danilo Oneill Primary Care Provider Dr. Tacho Moffett Emergency Provider Dr. Kavin Mcclain Admit Provider Dr. Kavin Mcclain Attending Provider [phone] Dr. Kavin Mcclain Other Provider Dr. Antoni Argueta Other Provider Dr. Antoni Argueta Attending Provider Dr. Danilo Oneill Primary Care Provider Dr. Tacho Moffett Emergency Provider Dr. Kavin Mcclain Admit Provider Dr. Kavin Mcclain Attending Provider Dr. Kavin Mcclain Other Provider Dr. Antoni Argueta Other Provider Dr. Antoni Argueta Attending Provider [phone] MAI BURROWS, DANILO Primary Care Physician Dr. Danilo Oneill DO Primary Care Provider [phone] Dr. Jane Jay DO Attending Provider [phone] Jane Jay DO Referring Provider BRANDON COMMERCIAL SUBCONTRACTOR-LOBSTER CATCHER, [facility] Primary Care Physician Lauren MILLER, Dr. العراقي Emergency Department Physici an Unavailable BRANDON LOOP SEWER-C, [facility] Primary Care Physician Dr. Antoni Argueta DO Admitting Physician Dr. Antoni Argueta DO Attending Physician Dr. Antoni Argueta DO Nurse Practitioner Juliocesar MILLER, Dr. Chamberlain Nurse Practitioner Dr. Kamron Nguyen DO Nurse Practitioner Mervin LOOP SEWER-CDoris Nurse Practitioner [phone] Michael LOOP SEWER-C, Karlee Nurse Practitioner Shelby Green Nurse Practitioner Dr. Ying Jay DO Nurse Practitioner Maura MILLER, Dr. Remy Nurse Practitioner Robles Porter MD, Dr. Avery Nurse Practitioner Dr. Antoni Argueta DO Referring Provider Dr. Kamron Nguyen DO Attending Physician [phone] Snow MILLER, Dr. Saenz Nurse Practitioner [phone] Zoraida MILLER, Dr. Davis Nurse Practitioner Federico MILLER, Dr. Bear Nurse Practitioner Scott DO, Dr. Thomas Nurse Practitioner [phone] Nita MILLER, Dr. Jonel Preston Nurse Practitioner [phone] Alba DO, Dr. Gonzalez Nurse Practitioner Unavailab daisy Yusuf MD, Dr. Herring Nurse Practitioner Argentina MILLER, Dr. King Nurse Practitioner Un available Zuri MILLER, Dr. Etienne Nurse Practitioner Yash MILLER, Dr. Farrell Nurse Practitioner Montrell MILLER, Dr. Burris Nurse Practitioner [phone] Александр MILLER, Dr. Ortiz Nurse Practitioner [phone] Teresita MILLER, Dr. Reddy Nurse Practitioner Unavailable Frank MILLER, Dr. Avila Nurse Practitioner [phone] Sarah MILLER, Dr. Patel Nurse Practitioner [phone] Jeffery MILLER, Dr. Faria Nurse Practitioner Unavail able Lela BURROWS, Dr. Pedro Nurse Practitioner Unavailable Kathy MILLER, Dr. Carrington Nurse Practitioner Unavailabl bharat Anton MD, Dr. Vidal Nurse Practitioner Eduardo Radford MD, Dr. Alexander Nurse Practitioner [phone] Darion BURROWS, Dr. Gallardo Nurse Practitioner Unavail able Aishwarya MILLER, Dr. Knowles Nurse Practitioner [phone] Roque MILLER, Dr. Carrera Nurse Practitioner Allison MILLER, Dr. Dos Santos Nurse Practitioner [phone] Lisandro DO, Dr. Vasquez Nurse Practitioner Tashia MILLER, Dr. Bradley Nurse Practitioner Raj MILLER, Dr. Milton Nurse Practitioner Agustin MILLER, Dr. Castillo Nurse Practitioner Unavaila oswaldo Odonnell DO, Dr. Cruz Nurse Practitioner [phone] Antonio MILLER, Dr. Marte Nurse Practitioner [phone], [address] Ramsay Nurse Practitioner Neto MILLER, Dr. Su Nurse Practitioner [phone] Pierre BURROWS, Dr. He Attending Physician Geo MILLER, Dr. Hdz Attending Physician Dr. William Chavez DO Attending Physician Maura MILLER, Dr. Remy Referring Provider Unavailsolange Lorenzo MD, Dr. Remy Attending Physician Unavail steve Porter MD, Dr. Avery Attending Physician Michael LOOP SEWER-C, Karlee Attending Physician [phone] VINCENZO MILLER FACP, ALINA Morgan Admitting Unavail steve SHEETS MD, CRISTINO Consulting Unavailable BRITTANY BURROWS, DR GUTIERREZ Attending Unavailable BRANDON LARKIN-DIANA, TAYLOR Primary Care Tremaine TAYLOR APRN-DIANA, TAYLOR Primary Care Unavai labdaisy TAYLOR APRN-DIANA, TAYLOR Attending JAIR Carcamo MD Consulting Unavailable BRITTANY BURROWS, DR GUTIERREZ Attending Unavailable KENNEN COMMERCIAL SUBCONTRACTOR-LOBSTER CATCHER, SHUKRI Reyes Admitting Unavai lable BRANDON COMMERCIAL SUBCONTRACTOR-LOBSTER CATCHER, TAYLOR Primary Care Unavai labdaisy TAYLOR, TAYLOR Primary Care Unavailable Alida Rinaldi NP Attending Unavailable Gentry LOOP SEWERAlida Referring Unavailable Danilo Oneill Primary Care Unavailable Jane Jay Referring Unavailable Jane Jay Attending Unavailable BRANDON, TAYLOR Primary Care Unavailable Jyotsna Ordonez Attending UnavailJonel Campoverde Attending Unavailable BRANDON, TAYLOR Primary Care Unavailable Antoni Argueta Admitting Unavailable Bulmaro Gandara Consulting Unavailable Kamron Nguyen Consulting Unavailable Doris Jeffries Consulting Unavailable Karlee Rodriguez Consulting Unavailable Shelby Dumont Consulting Unavailable Dany Adamson Consulting Unavailable Ryan Conway Consulting Unavailable Chema Caballero Consulting Unavailable William Chavez Consulting Unavailable Jonel Moya Consulting Unavailable Lisa Willis Consulting Unavailable Nima Yusuf Consulting Unavailable Fernando Elaine Consulting Unavailable Lowell Keating Consulting Unavailable Jami Berrios Consulting Unavailab daisy Stock, [place] Consulting Unavailable Angel Fountain Consulting Unavailable Barry Lo Consulting Unavailabl Austin Gauthier Consulting Unavailable Amanda Smith Consulting Unavailable Bienvenido Gil Consulting Unavailable Willis Vogel Consulting Unavailabl Zeb Ruano Consulting Unavailable Desean, Vidal Consulting Unavailable Catherine Radford Consulting Unavailable Paulina Orlando Consulting Unavailable Benson Neff Consulting Unavailable Deandre Nevarez Consulting Unavailable Allison, Levon Consulting Unavailable Dhetegan, Pedro Consulting Unavailable Mirna Lao Consulting Unavailable Yoan Anthony Consulting Unavailable Jonathan Velez Consulting Unavailable Anthony Odonnell Consulting Unavailable Estuardo Alvarez Consulting Unavailable Devendra Green Consulting UnavailGeorges Holt Consulting Unavailable Antoni Argueta Consulting Unavailable Ying Jay Consulting Unavailable Jonel Lorenzo Consulting Unavailable Antoni Argueta Attending Unavailable Gena Porter Consulting Unavailable Antoni Argueta Referring Unavailable Kamron Nguyen Attending Unavailable Jonel Lorenzo Referring Unavailable William Chavez Attending Unavailable Mai, Danilo Primary Care Unavailable BRANDON, TAYLOR Referring Unavailable BRANDON, TAYLRO Attending Unavailable Mai, Danilo Primary Care Unavailable BRANDONTAYLOR CHRISTINE Attending Unavailable Jonel Lorenzo Referring Unavailable BRANDON, TAYLOR Primary Care Unavailable Friend, Kamron Attending Unavailable Friend, Kamron Attending Unavailable Jonel Lorenzo Referring Unavailable BRANDON, TAYLOR Primary Care Unavailable BRANDON, TAYLOR Primary Care Unavailable Andreina Guardado Attending Unavailable Gena Porter Attending Unavailable Mai, Danilo Primary Care Unavailable Pierre Jane Referring Unavailable Jane Jay Attending Unavailable PierreJane Referring Unavailable Mai, Danilo Primary Care Unavailable Jane Jay Attending Unavailable Ying Jay Attending Unavailable BRANDON, TAYLOR Primary Care Unavailable Jyotsna Ordonez Attending Unavailabl e BRANDON, TAYLOR Primary Care Unavailable Jyotsna Ordonez Attending Unavailabl e BRANDON, TAYLOR Primary Care Unavailable Jane Jay Attending Unavailable Karlee Rodriguez Attending Unavailable Antoni Argueta Admitting Unavailable BRANDON, TAYLOR Primary Care Unavailable Antoni Argueta Attending Unavailable Bulmaro Gandara Consulting Unavailable Kamron Nguyen Consulting Unavailable Doris Jeffries Consulting Unavailable Karlee Rodriguez Consulting Unavailable Shelby Dumont Consulting Unavailable Antoni Argueta Consulting Unavailable Ying Jay Consulting Unavailable Jonel Lorenzo Consulting Unavailable Gena Porter Consulting Unavailable Medications Current Medications Medication Drug Class(es) Dates Sig (Normalized) Sig (Original) acetaminophen 325 mg / oxyCODONE hydrochloride 5 mg oral tablet (7 sources) Opioid Agonist Start: 07-28-2023 End: 08-05-2025 Start: 07-28-2023 Oxycodone-Acet aminophen 5-325 mg tablet Active 1 {tbl} PO Q12H as needed for back pain July 28, 2023 12:00am Start: 07-28-2023 take 1 tablet by fercho th every twelve hours Oxycodone-Acetaminophen Active 1 TABLET PO Q12H July 27, 2023 11:00pm Albuterol (20 sources) beta2-Adrenergic Agonist Start: 09-06-2024 take 2 puff(s) by inhalation every four hours as needed for wheezing Ventolin HFA MDI (90 mcg/inh) inhalation aerosol 2 puff(s), Inhalation, q4h, PRN as needed for wheezing, # 18 gram(s), 11 Refill(s), Pharmacy: [facility], COPD with exacerbation, 165, cm, 09/06/24 13:19:00 EST, Height, kg, 09/06/24 13:19:00 EST, Dosing Weight Start Date: 09/06/24 Status: Ordered Medication Dispense Status: Completed Quantity: 18.0 Unit: g Total Allowed Fills: 12 Fills Dispensed: 0 Indications: Chronic obstructive pulmonary disease with (acute) exacerbation; Start: 08-09-2019 take 2 puff(s) by in halation every four hours as needed for wheezing Ventolin HFA MDI (90 mcg/inh) inhalation aerosol 2 puff(s), Inhalation, q4h, PRN as needed for wheezing, # 18 gram(s), 5 Refill(s), Pharmacy: [email or web address]30, COPD with exacerbation Start Date: 08/09/19 Status: Ordered Start: 12-30-2016 take 1 puff(s) by in halation every four hours as needed Albuterol Sulfate (Ventolin Hfa) 1 INHALER inhaler Active 1 - 2 PUFF INHALATION EVERY 4 HOURS NEEDED December 30, 2016 11:14am Start: 12-30-2016 Start: 12-30-2016 Albuterol Sulf ate (Ventolin Hfa) 1 INHALER inhaler Active 1 - 2 NMA INHALATION EVERY 4 HOURS NEEDED as needed for Sob &/Or Wheezing December 30, 2016 12:00am Start: 12-30-2016 take 1 puff(s) by in halation every four hours as needed Albuterol Sulfate (Ventolin Hfa) 1 INHALER inhaler Active 1 - 2 PUFF INHALATION EVERY 4 HOURS NEEDED December 29, 2016 11:00pm Start: 12-30-2016 take 1 puff(s) by in halation every four hours as needed Albuterol Sulfate (Ventolin Hfa) 1 INHALER inhaler Active 1 - 2 PUFF INHALATION EVERY 4 HOURS NEEDED December 30, 2016 12:00am Albuterol / Ipratropium (1 source) Anticholinergic, beta2-Adrenergic Agonist Start: 08-13-2025 DuoNeb Dose = 3 mL, Inhalation, q2hRT, PRN Shortness of breath or wheezing, 0 Refill(s) Start Date: 08/13/25 Status: Ordered Medication Dispense Status: Completed Total Allowed Fills: 1 Fills Dispensed: 0 amiodarone hydrochloride 200 mg oral tablet (3 sources) Antiarrhythmic Start: 08-05-2025 amiodarone 200 mg oral tablet Dose : 200 mg = 1 tab(s), PEG, BIDM, 0 Refill(s) Start Date: 08/05/25 Status: Ordered Medication Dispense Status: Completed Total Allowed Fills: 1 Fills Dispensed: 0 Start: 08-05-2025 apixaban 5 mg oral tablet (3 sources) Factor Xa Inhibitor Start: 08-05-2025 Eliquis 5 mg oral tablet Dose : 5 mg = 1 tab(s), PEG, BID, 0 Refill(s), 59.1 Start Date: 08/05/25 Status: Ordered Medication Dispense Status: Completed Total Allowed Fills: 1 Fills Dispensed: 0 Start: 08-05-2025 ARIPiprazole 10 mg oral tablet (7 sources) Atypical Antipsychotic Start: 10-08-2023 End: 11-12-2025 Abilify 10 mg oral tablet Dose : 10 mg = 1 tab(s), Oral, qDay, # 90 tab(s), 1 Refill(s), Pharmacy: [facility] #30, 163, cm, 05/16/25 10:49:00 EDT, Height, kg, 05/16/25 10:49:00 EDT, Dosing Weight Start Date: 05/16/25 Stop Date: 11/12/25 Status: Ordered Medication Dispense Status: Completed Quantity: 90.0 Unit: tab(s) Total Allowed Fills: 2 Fills Dispensed: 0 aspirin 81 mg oral tablet (20 sources) Platelet Aggregation Inhibitor, Nonsteroidal Anti-inflammatory Drug Start: 05-16-2025 End: 11-12-2025 Aspirin Low Dose 81 mg oral tablet, chewable Dose : 81 mg = 1 tab(s), Chewed, qDay, # 90 tab(s), 1 Refill(s), Pharmacy: [facility] #30, 163, cm, 05/16/25 10:49:00 EDT, Height, kg, 05/16/25 10:49:00 EDT, Dosing Weight Start Date: 05/16/25 Stop Date: 11/12/25 Status: Ordered Medication Dispense Status: Completed Quantity: 90.0 Unit: tab(s) Total Allowed Fills: 2 Fills Dispensed: 0 Start: 06-05-2020 Aspirin Low Do se 81 mg oral tablet, chewable Dose : 81 mg = 1 tab(s), Chewed, qDay, 0 Refill(s) Start Date: 06/05/20 Status: Ordered Start: 12-27-2016 End: 08-05-2025 bisoprolol fumarate 5 mg ora l tablet (20 sources) beta-Adrenergic Nancie Start: 04-19-2021 End: 08-05-2025 Start: 04-19-2021 End: 11-12-2025 bisoprolol 5 mg oral tablet Dose : 5 mg = 1 tab(s), Oral, qPM, # 90 tab(s), 1 Refill(s), Pharmacy: [facility] #30, HTN (hypertension), 163, cm, 05/16/25 10:49:00 EDT, Height, kg, 05/16/25 10:49:00 EDT, Dosing Weight Start Date: 05/16/25 Stop Date: 11/12/25 Status: Ordered Medication Dispense Status: Completed Quantity: 90.0 Unit: tab(s) Total Allowed Fills: 2 Fills Dispensed: 0 Indications: Essential (primary) hypertension; Blood Glucose Test Machine (4 sources) Start: 09-10-2023 Blood Glucose Test Machine See Instructions, Dispense a One Touch glucometer, use as directed twice daily to test blood sugar. Diagnosis: E11.9, # 1 EA, 0 Refill(s), Pharmacy: [facility] #30, DM (diabetes mellitus), 168, cm, 08/12/23 10:36:00 EDT, Height, 86.3, kg, 08/12/23 10:36:00 EDT, Dosing Weight Start Date: 09/10/23 Status: Ordered Medication Dispense Status: Completed Quantity: 1.0 Unit: EA Total Allowed Fills: 1 Fills Dispensed: 0 Indications: Type 2 diabetes mellitus without complications; Start: 09-10-2023 Blood Glucose Test Machine See Instructions, Dispense a One Touch glucometer, use as directed twice daily to test blood sugar. Diagnosis: E11.9, # 1 EA, 0 Refill(s), Pharmacy: [facility] #30, DM (diabetes mellitus), 168, cm, 08/12/23 10:36:00 EDT, Height, 86.3, kg, 08/12/23 10:36:00 EDT, Dosing Weight Start Date: 09/10/23 Status: Ordered Breztri Aerosphere 160 mcg-9 mcg-4.8 mcg/inh inhalation aerosol (3 sources) Start: 05-16-2025 End: 11-07-2026 Breztri Aerosphere 160 mcg-9 mcg-4.8 mcg/inh inhalation aerosol Dose = 2 puff(s), Inhalation, BID, not to exceed 4 inhalations/day, # 10.7 gram(s), 5 Refill(s), Pharmacy: [facility] #30, COPD (chronic obstructive pulmonary disease), 163, cm, 05/16/25 10:49:00 EDT, Height, kg, 05/16/25 10:49:00 EDT, Dosing Weight Start Date: 05/16/25 Stop Date: 11/07/26 Status: Ordered Medication Dispense Status: Completed Quantity: 10.7 Unit: g Total Allowed Fills: 6 Fills Dispensed: 0 Indications: Panlobular emphysema; buPROPion hydrochloride 100 mg oral tablet (20 sources) Aminoketone Start: 08-05-2025 buPROPion 100 mg oral tablet Dose : 100 mg = 1 tab(s), PEG, BID, 0 Refill(s) Start Date: 08/05/25 Status: Ordered Medication Dispense Status: Completed Total Allowed Fills: 1 Fills Dispensed: 0 Start: 08-05-2025 Start: 12-27-2016 End: 08-05-2025 buPROPion 150 mg/12 hours (SR) oral tablet, extended release (2 sources) Start: 02-23-2025 End: 03-30-2026 take 1 tablet by mouth every hour, then take 1 tablet by mouth twice daily buPROPion 150 mg/12 hours (SR) oral tablet, extended release Dose : 150 mg = 1 tab(s), Oral, BID, # 200 tab(s), 3 Refill(s), Pharmacy: [facility] #30, 165, cm, 02/21/25 13:20:00 EDT, Height, kg, 02/21/25 13:20:00 EDT, Dosing Weight Start Date: 02/23/25 Stop Date: 03/30/26 Status: Ordered Medication Dispense Status: Completed Quantity: 200.0 Unit: tab(s) Total Allowed Fills: 4 Fills Dispensed: 0 Start: 12-02-2023 End: 01-05-2025 take 1 tablet by mouth every hour, then take 1 tablet by mouth twice daily buPROPion 150 mg/12 hours (SR) oral tablet, extended release Dose : 150 mg = 1 tab(s), Oral, BID, # 200 tab(s), 3 Refill(s), Pharmacy: [facility] #30, 167, cm, 12/02/23 15:42:00 EST, Height, kg, 12/02/23 15:42:00 EST, Dosing Weight Start Date: 12/02/23 Stop Date: 01/05/25 Status: Ordered cholecalciferol 0.125 mg ora l capsule (20 sources) Vitamin D Start: 07-23-2025 Start: 01-31-2022 End: 05-11-2024 DME MISCellaneous (4 sources) Start: 06-17-2024 DME MISCellane ous See Instructions, bilateral knee highcompression hose medium 20-30, # 1 EA, 0 Refill(s), Pharmacy: [facility]30, Peripheral edema, 165, cm, 06/17/24 13:29:00 EDT, Height, 78.2, kg, 06/17/24 13:29:00 EDT, Dosing Weight Start Date: 06/17/24 Status: Ordered Medication Dispense Status: Completed Quantity: 1.0 Unit: EA Total Allowed Fills: 1 Fills Dispensed: 0 Indications: Localized edema; Start: 06-17-2024 DME MISCellane ous See Instructions, bilateral knee highcompression hose medium 20-30, # 1 EA, 0 Refill(s), Pharmacy: [facility] #30, Peripheral edema, 165, cm, 06/17/24 13:29:00 EDT, Height, 78.2, kg, 06/17/24 13:29:00 EDT, Dosing Weight Start Date: 06/17/24 Status: Ordered doxycycline hyclate 100 mg oral tablet (1 source) Tetracycline-class Drug Start: 06-17-2024 End: 07-01-2024 doxycycline hyclate 100 mg oral tablet Dose : 100 mg = 1 tab(s), Oral, BID, X 14 day(s), # 28 tab(s), 0 Refill(s), 07/01/24 2:08:00 PM EDT, Pharmacy: [facility]30, Diabetic ulcer of left ankle, 165, cm, 06/17/24 13:29:00 EDT, Height, 78.2, kg, 06/17/24 13:29:00 EDT, Dosing Weight Start Date: 06/17/24 Stop Date: 07/01/24 Status: Ordered esomeprazole 40 mg delayed release oral capsule (7 sources) Proton Pump Inhibitor Start: 08-27-2023 End: 11-12-2025 esomeprazole 40 mg oral delayed release capsule Dose : 40 mg = 1 cap(s), Oral, qDay, # 90 cap(s), 1 Refill(s), Pharmacy: [facility]30, Hiatal hernia with GERD, 163, cm, 05/16/25 10:49:00 EDT, Height, kg, 05/16/25 10:49:00 EDT, Dosing Weight Start Date: 05/16/25 Stop Date: 11/12/25 Status: Ordered Medication Dispense Status: Completed Quantity: 90.0 Unit: cap(s) Total Allowed Fills: 2 Fills Dispensed: 0 Indications: Diaphragmatic hernia without obstruction or gangrene; ferrous sulfate 325 mg oral tablet (20 sources) Start: 08-05-2025 ferrous sulfat e 325 mg (65 mg elemental iron) oral tablet Dose : 325 mg = 1 tab(s), Oral, qDay, 0 Refill(s) Start Date: 08/05/25 Status: Ordered Medication Dispense Status: Completed Total Allowed Fills: 1 Fills Dispensed: 0 Start: 08-05-2025 Start: 07-23-2025 End: 08-05-2025 Start: 04-19-2021 End: 05-11-2024 Sdnmxmtemfz-Dqnbcjflw-Sotcmc er (18 sources) Anticholinergic, Corticosteroid, beta2-Adrenergic Agonist Start: 04-19-2021 Tbdmonyyokr-Pvmifeprd-Leewqn er (Trelegy Ellipta) 100-62.5-25 mcg blister with device Active 1 INH INHALATION DAILY April 19, 2021 6:00pm Start: 04-19-2021 End: 07-28-2023 Start: 04-19-2021 End: 07-28-2023 Epbgwjbgykv-Ifdacnazw-Lsfkbi er (Trelegy Ellipta) 100-62.5-25 mcg blister with device Discontinued 1 NMA INHALATION DAILY April 19, 2021 12:00am July 28, 2023 7:59pm Start: 04-19-2021 End: 07-28-2023 Jqbmjbvhhum-Hprbkjbnd-Zwrhsg er (Trelegy Ellipta) 100-62.5-25 mcg blister with device Discontinued 1 INH INHALATION DAILY April 18, 2021 11:00pm July 28, 2023 6:59pm Start: 04-19-2021 End: 10-16-2023 Qzyqpfcgnit-Thwiclomv-Xiryjl er (Trelegy Ellipta) 100-62.5-25 mcg blister with device Discontinued 1 INH INHALATION DAILY April 19, 2021 12:00am July 28, 2023 7:59pm Start: 04-19-2021 Fluticasone-Um eclidin-Vilanter (Trelegy Ellipta) 100-62.5-25 mcg blister with device Active 1 INH INHALATION DAILY April 18, 2021 11:00pm Start: 04-19-2021 Fluticasone-Um eclidin-Vilanter (Trelegy Ellipta) 100-62.5-25 mcg blister with device Active 1 INH INHALATION DAILY April 19, 2021 12:00am 30 actuat fluticasone furoate 0.1 mg/actuat / vilanterol 0.025 mg/actuat dry powder inhaler (1 source) Corticosteroid, beta2-Adrenergic Agonist Start: 04-19-2021 Fluticasone Furoate-Vilanterol Active 1 INH INHALATION DAILY April 19, 2021 6:00pm glimepiride 2 mg oral tablet (20 sources) Sulfonylurea Start: 05-11-2024 End: 11-12-2025 glimepiride 2 mg oral tablet Dose : 2 mg = 1 tab(s), Oral, BID, # 180 tab(s), 1 Refill(s), Pharmacy: [email or web address], 163, cm, 05/16/25 10:49:00 EDT, Height, kg, 05/16/25 10:49:00 EDT, Dosing Weight Start Date: 05/16/25 Stop Date: 11/12/25 Status: Ordered Medication Dispense Status: Completed Quantity: 180.0 Unit: tab(s) Total Allowed Fills: 2 Fills Dispensed: 0 Start: 07-28-2023 End: 02-29-2024 Start: 12-27-2016 End: 02-13-2022 Glucagon (1 source) Antihypoglycemic Agent Start: 08-13-2025 glucagon 1 mg/0.2 mL subcutaneous solution See Instructions, PRN for low blood sugar, 0.2 mL Subcutaneous AsDirected for hypoglycemia, # 2 EA, 1 Refill(s), other reason (Rx) Start Date: 08/13/25 Status: Ordered Medication Dispense Status: Completed Quantity: 2.0 Unit: EA Total Allowed Fills: 2 Fills Dispensed: 0 Hydrocodon-Acet aminophen 5-325 (15 sources) Start: 01-16-2020 take 1 tablet by mouth four times daily Hydrocodon-Acetamin ophen 5-325 Active 1 TABLET PO 4 TIMES DAILY January 16, 2020 8:02pm Start: 01-16-2020 End: 02-13-2022 take 1 tablet by mouth four times daily Hydrocodon-Acetaminophen 5-325 Discontinued 1 TABLET PO 4 TIMES DAILY January 15, 2020 11:00pm February 13, 2022 6:52pm Start: 01-16-2020 End: 02-13-2022 take 1 tablet by mouth four times daily Hydrocodon-Acetaminophen 5-325 Discontinued 1 TABLET PO 4 TIMES DAILY January 16, 2020 12:00am February 13, 2022 7:52pm Hypertonic Sodium Chloride 3% (Inhalation) (1 source) Start: 08-13-2025 Hypertonic Sodium Chloride 3% (Inhalation) 90 mg Dose = 3 mL, Inhalation, QIDRT, 0 Refill(s) Start Date: 08/13/25 Status: Ordered Medication Dispense Status: Completed Total Allowed Fills: 1 Fills Dispensed: 0 insulin glargine 100 unt/ml injectable solution (1 source) Insulin Analog Start: 08-13-2025 End: 09-12-2025 inject 1 dose by subcutaneous injection once daily Lantus 100 units/mL10 ml vial solution Dose : 5 unit(s) =, Subcutaneous, qDay, # 10 mL, 0 Refill(s), other reason (Rx) Start Date: 08/13/25 Stop Date: 09/12/25 Status: Ordered Medication Dispense Status: Completed Quantity: 10.0 Unit: mL Total Allowed Fills: 1 Fills Dispensed: 0 insulin lispro 100 unt/ml injectable solution (1 source) Insulin Analog Start: 08-13-2025 HumaLOG 100 units/mL injectable solution VIAL Sliding Scale, Subcutaneous, q6h, 201-250- 2 units 251-300-4 units 301-350-6 units 350-400-8 units >400, Call provider, # 10 mL, 0 Refill(s), other reason (Rx) Start Date: 08/13/25 Status: Ordered Medication Dispense Status: Completed Quantity: 10.0 Unit: mL Total Allowed Fills: 1 Fills Dispensed: 0 200 actuat ipratropium bromide 0.017 mg/actuat metered dose inhaler (5 sources) Anticholinergic Start: 09-06-2024 take 1 dose by inhalation four times daily Atrovent HFA 17 mcg/inh inhalation aerosol Dose = 2 puff(s), Inhalation, QID, # 3 EA, 3 Refill(s), Pharmacy: [facility]30, 165, cm, 09/06/24 13:19:00 EST, Height, kg, 09/06/24 13:19:00 EST, Dosing Weight Start Date: 09/06/24 Status: Ordered Medication Dispense Status: Completed Quantity: 3.0 Unit: EA Total Allowed Fills: 4 Fills Dispensed: 0 Start: 08-12-2023 take 1 dose by inhal ation four times daily ipratropium CFC free 17 mcg/inh inhalation aerosol Dose = 2 puff(s), Inhalation, QID, Replaces Rx for Trelegy, # 1 EA, 5 Refill(s), Pharmacy: [facility]30, COPD (chronic obstructive pulmonary disease), 167, cm, 02/18/24 12:56:00 EDT, Height, kg, 02/18/24 12:56:00 EDT, Dosing Weight Start Date: 03/04/24 Status: Ordered losartan potassium 50 mg oral tablet (20 sources) Angiotensin 2 Receptor Nancie Start: 03-03-2024 End: 11-12-2025 losartan 50 mg oral tablet Dose : 50 mg = 1 tab(s), Oral, qDay, # 90 tab(s), 1 Refill(s), Pharmacy: [facility]30, HTN (hypertension), 163, cm, 05/16/25 10:49:00 EDT, Height, kg, 05/16/25 10:49:00 EDT, Dosing Weight Start Date: 05/16/25 Stop Date: 11/12/25 Status: Ordered Medication Dispense Status: Completed Quantity: 90.0 Unit: tab(s) Total Allowed Fills: 2 Fills Dispensed: 0 Indications: Essential (primary) hypertension; Start: 01-26-2022 End: 03-03-2024 lovastatin 40 mg oral tablet (20 sources) HMG-CoA Reductase Inhibitor Start: 12-27-2016 End: 11-12-2025 lovastatin 40 mg oral tablet Dose : 40 mg = 1 tab(s), Oral, qHS, # 90 tab(s), 1 Refill(s), Pharmacy: [facility], 163, cm, 05/16/25 10:49:00 EDT, Height, kg, 05/16/25 10:49:00 EDT, Dosing Weight Start Date: 05/16/25 Stop Date: 11/12/25 Status: Ordered Medication Dispense Status: Completed Quantity: 90.0 Unit: tab(s) Total Allowed Fills: 2 Fills Dispensed: 0 Start: 12-27-2016 montelukast 10 mg oral tablet (20 sources) Leukotriene Receptor Antagonist Start: 12-27-2016 End: 11-12-2025 montelukast 10 mg oral tablet Dose : 10 mg = 1 tab(s), Oral, qDay, # 90 tab(s), 1 Refill(s), Pharmacy: [facility], 163, cm, 05/16/25 10:49:00 EDT, Height, kg, 05/16/25 10:49:00 EDT, Dosing Weight Start Date: 05/16/25 Stop Date: 11/12/25 Status: Ordered Medication Dispense Status: Completed Quantity: 90.0 Unit: tab(s) Total Allowed Fills: 2 Fills Dispensed: 0 oxyCODONE hydrochloride 20 mg/ml oral solution (5 sources) Opioid Agonist Start: 08-05-2025 oxyCODONE 20 m g/mL oral concentrate Dose : 5 mg = 0.25 mL, Oral, q12hr, PRN as needed for pain, 0 Refill(s), 59.1 Start Date: 08/05/25 Status: Ordered Medication Dispense Status: Completed Total Allowed Fills: 1 Fills Dispensed: 0 Start: 08-05-2025 Start: 03-03-2024 End: 05-25-2024 Pen needles 4 mm (4 sources) Start: 02-21-2020 Pen needles 4 mm See Instructions, Use 1 pen needle daily to inject basal insulin, # 100 EA, 3 Refill(s), Pharmacy: [facility], DM (diabetes mellitus), 170.2, cm, 02/21/20 10:47:00 EDT, Height, 81.8, kg, 02/21/20 10:47:00 EDT, Dosing Weight Start Date: 02/21/20 Status: Ordered Medication Dispense Status: Completed Quantity: 100.0 Unit: EA Total Allowed Fills: 4 Fills Dispensed: 0 Indications: Type 2 diabetes mellitus without complications; Start: 02-21-2020 Pen needles 4 mm See Instructions, Use 1 pen needle daily to inject basal insulin, # 100 EA, 3 Refill(s), Pharmacy: [facility], DM (diabetes mellitus), 170.2, cm, 02/21/20 10:47:00 EDT, Height, 81.8, kg, 02/21/20 10:47:00 EDT, Dosing Weight Start Date: 02/21/20 Status: Ordered pioglitazone 30 mg oral tablet (20 sources) Peroxisome Proliferator Receptor alpha Agonist, Peroxisome Proliferator Receptor gamma Agonist, Thiazolidinedione Start: 01-20-2020 End: 11-12-2025 pioglitazone 30 mg oral tablet Dose : 30 mg = 1 tab(s), Oral, Daily, # 90 tab(s), 1 Refill(s), Pharmacy: [facility], 163, cm, 05/16/25 10:49:00 EDT, Height, kg, 05/16/25 10:49:00 EDT, Dosing Weight Start Date: 05/16/25 Stop Date: 11/12/25 Status: Ordered Medication Dispense Status: Completed Quantity: 90.0 Unit: tab(s) Total Allowed Fills: 2 Fills Dispensed: 0 Start: 01-18-2020 End: 01-20-2020 Start: 12-27-2016 End: 01-18-2020 Start: 12-27-2016 End: 01-18-2020 take 0.5 tablet by mouth once daily in the morning Pioglitazone 30 MG tablet Discontinued 30 mg PO DAILY December 27, 2016 12:00am January 18, 2020 8:12am pt takes 1/2 pill in the morning and 1/2 pill in the evening. sodium chloride 1000 mg oral tablet (1 source) Start: 08-13-2025 sodium chlorid e 1000 mg oral tablet Dose : 1 gram(s) = 1 tab(s), Oral, BID, 0 Refill(s) Start Date: 08/13/25 Status: Ordered Medication Dispense Status: Completed Total Allowed Fills: 1 Fills Dispensed: 0 traZODone hydrochloride 150 mg oral tablet (20 sources) Serotonin Reuptake Inhibitor Start: 12-27-2016 End: 11-12-2025 traZODone 150 mg oral tablet Dose : 150 mg = 1 tab(s), Oral, qHS, # 90 tab(s), 1 Refill(s), Pharmacy: [facility], 163, cm, 05/16/25 10:49:00 EDT, Height, kg, 05/16/25 10:49:00 EDT, Dosing Weight Start Date: 05/16/25 Stop Date: 11/12/25 Status: Ordered Medication Dispense Status: Completed Quantity: 90.0 Unit: tab(s) Total Allowed Fills: 2 Fills Dispensed: 0 Start: 12-27-2016 24 hr venlafaxine 150 mg extended release oral capsule (20 sources) Serotonin and Norepinephrine Reuptake Inhibitor Start: 12-27-2016 End: 11-12-2025 venlafaxine 150 mg oral capsule, extended release Dose : 150 mg = 1 cap(s), Oral, qDay, # 90 cap(s), 1 Refill(s), Pharmacy: [facility], 163, cm, 05/16/25 10:49:00 EDT, Height, kg, 05/16/25 10:49:00 EDT, Dosing Weight Start Date: 05/16/25 Stop Date: 11/12/25 Status: Ordered Medication Dispense Status: Completed Quantity: 90.0 Unit: cap(s) Total Allowed Fills: 2 Fills Dispensed: 0 Vitamin B-12 1000 mcg oral tablet (4 sources) Start: 05-16-2025 End: 11-12-2025 Vitamin B-12 1000 mcg oral tablet Dose : 1,000 mcg = 1 tab(s), Oral, qDay, # 90 tab(s), 1 Refill(s), Pharmacy: [facility], 163, cm, 05/16/25 10:49:00 EDT, Height, kg, 05/16/25 10:49:00 EDT, Dosing Weight Start Date: 05/16/25 Stop Date: 11/12/25 Status: Ordered Medication Dispense Status: Completed Quantity: 90.0 Unit: tab(s) Total Allowed Fills: 2 Fills Dispensed: 0 Start: 05-31-2024 Vitamin B-12 1 000 mcg oral tablet Dose : 1,000 mcg = 1 tab(s), Oral, qDay, # 100 tab(s), 3 Refill(s), Pharmacy: [facility], 165, cm, 05/25/24 13:47:00 EDT, Height, kg, 05/25/24 13:47:00 EDT, Dosing Weight Start Date: 05/31/24 Status: Ordered vitamin b12 1 mg oral tablet (18 sources) Vitamin B12 Start: 12-27-2016 Vitamin D3 125 mcg (5000 intl units) oral capsule (3 sources) Start: 05-16-2025 End: 11-12-2025 take 1 capsule by mouth once, then take 1 capsule by mouth once daily Vitamin D3 125 mcg (5000 intl units) oral capsule Dose : 125 mcg = 1 cap(s), Oral, qDay, # 90 cap(s), 1 Refill(s), Pharmacy: [facility], Vitamin D deficiency, 163, cm, 05/16/25 10:49:00 EDT, Height, kg, 05/16/25 10:49:00 EDT, Dosing Weight Start Date: 05/16/25 Stop Date: 11/12/25 Status: Ordered Medication Dispense Status: Completed Quantity: 90.0 Unit: cap(s) Total Allowed Fills: 2 Fills Dispensed: 0 Indications: Vitamin D deficiency, unspecified; (2 sources) Start: 07-23-2025 Start: 01-16-2020 End: 02-13-2022 Completed/Discontinued Medications Medication Drug Class(es) Dates Sig (Normalized) Sig (Original) acetaminophen 500 mg oral tablet (3 sources) Start: 03-03-2024 End: 05-25-2024 acetaminophen 325 mg / HYDROcodone bitartrate 5 mg oral tablet (18 sources) Opioid Agonist Start: 12-27-2016 End: 12-30-2016 Start: 12-27-2016 End: 12-30-2016 Hydrocodone-Acetaminophen 1 EACH tablet Discontinued 1 {tbl} PO EVERY 6 HOURS as needed for Pain December 27, 2016 12:00am December 30, 2016 11:11am Start: 12-27-2016 End: 12-30-2016 take 1 tablet by mouth every six hours Hydrocodone-Acetaminophen Discontinued 1 TABLET PO EVERY 6 HOURS December 26, 2016 11:00pm December 30, 2016 10:11am amLODIPine 2.5 mg oral table t (18 sources) Dihydropyridine Calcium Channel Nancie Start: 12-30-2016 End: 01-16-2020 azithromycin 500 mg oral tablet (6 sources) Macrolide Antimicrobial Start: 07-30-2023 End: 02-29-2024 cefdinir 300 mg oral capsule (6 sources) Cephalosporin Antibacterial Start: 07-30-2023 End: 02-29-2024 clopidogrel 75 mg oral table t (18 sources) P2Y12 Platelet Inhibitor Start: 12-27-2016 End: 01-20-2020 docusate sodium 100 mg oral capsule (20 sources) Start: 01-31-2022 End: 02-13-2022 0.3 ml enoxaparin sodium 100 mg/ml prefilled syringe (20 sources) Low Molecular Weight Heparin Start: 01-31-2022 End: 07-28-2023 Start: 01-31-2022 End: 07-28-2023 Enoxaparin 30 mg/0.3 mL syri nge Discontinued 30 mg SC DAILY@0600 January 31, 2022 3:32pm July 28, 2023 7:59pm 12 hr guaiFENesin 1200 mg extended release oral tablet (18 sources) Start: 12-30-2016 End: 01-16-2020 Hydrocodon-Acetamin ophen 5-325 tablet (2 sources) Start: 01-16-2020 End: 02-13-2022 Hydrocodon-Acetamin ophen 5-325 tablet Discontinued 1 {tbl} PO 4 TIMES DAILY as needed for Pain January 16, 2020 12:00am February 13, 2022 7:52pm loratadine 10 mg oral tablet (17 sources) Start: 01-26-2022 End: 07-28-2023 metoprolol tartrate 50 mg oral tablet (9 sources) beta-Adrenergic Nancie Start: 08-12-2025 End: 08-13-2025 take 1 tablet by mouth in the evening metoprolol tartrate 50 mg oral tablet Start: 08/12/25 5:00:00 PM EDT, Dose = 50 mg, = 1 tab(s), PEG, 0, 08/09/25 10:59:00 EDT Start Date: 08/12/25 Stop Date: 08/12/25 Status: Completed Medication Dispense Status: Completed Total Allowed Fills: 1 Fills Dispensed: 0 Start: 08-05-2025 End: 08-09-2025 metoprolol tartrate 50 mg or al tablet Start: 08/09/25 8:00:00 AM EDT, Dose = 50 mg, = 1 tab(s), PEG, Hold if SBP (mmHg) Start Date: 08/09/25 Stop Date: 08/09/25 Status: Completed Medication Dispense Status: Completed Total Allowed Fills: 1 Fills Dispensed: 0 Start: 08-05-2025 nystatin [id number] unt/ml topic al cream (3 sources) Polyene Antifungal Start: 02-29-2024 End: 05-11-2024 Start: 02-29-2024 End: 05-11-2024 Nystatin 100,000 unit/gram c ream Discontinued 1 NMA TOPICAL TWICE A DAY February 29, 2024 12:00am May 11, 2024 8:12am omeprazole 40 mg delayed rel ease oral capsule (18 sources) Proton Pump Inhibitor Start: 04-19-2021 End: 02-29-2024 predniSONE 20 mg oral tablet (6 sources) Start: 07-30-2023 End: 02-29-2024 Start: 07-30-2023 take 40 mg by mouth once daily Prednisone Active 40 MG PO DAILY 6 3 July 29, 2023 11:00pm Problems Active Problems Problem Classification Problem Date Documented Da te Episodic/Chronic Abdominal hernia (3 sources) Diaphragmatic hernia; Translations: [Diaphragmatic hernia without obstruction or gangrene] Onset: 5 Episodic Abdominal pain (3 sources) Acute abdominal pain; Translations: [Unspecified abdominal pain] 03-10-2024 Episodic Acute and unspecified renal failure (20 sources) Injury of kidney; Translations: [Acute kidney failure, unspecified] Onset: 5 Episodic Acute cerebrovascular disease (19 sources) Cerebrovascular accident; Translations: [Cerebral infarction, unspecified] Onset: 5 Chronic Anxiety disorders (3 sources) Anxiety disorder; Translations: [Anxiety disorder, unspecified] Onset: 5 Chronic Biliary tract disease (6 sources) Common bile duct calculus; Translations: [Calculus of bile duct without cholangitis or cholecystitis without obstruction] 03-10-2024 Episodic Cardiac dysrhythmias (6 sources) Paroxysmal atrial fibrillation; Translations: [Paroxysmal atrial fibrillation with rapid ventricular response] Onset: 5 07-24-2025 Chronic Chronic kidney disease (20 sources) Chronic kidney disease stage 3B ; Translations: [Stage 3b chronic kidney disease] Onset: Chronic Chronic kidney disease (1 source) Chronic kidney disease; Translations: [Chronic kidney disease, stage 3b] Onset: Chronic obstructive pulmonary disease and bronchiectasis (20 sources) Chronic obstructive lung disease; Translations: [Chronic obstructive pulmonary disease, unspecified] Onset: Chronic Comment on above: INHALER PRN Chronic obstructive pulmonary disease and bronchiectasis (18 sources) Bronchitis; Translations: [Bronchitis, not specified as acute or chronic] 01-17-2020 Episodic Chronic ulcer of skin (1 source) Ankle ulcer 05-25-2024 Chronic Congestive heart failure; nonhypertensive (5 sources) Chronic diastolic heart failure; Translations: [Chronic diastolic (congestive) heart failure] Onset: Chronic Deficiency and other anemia (1 source) Anemia in chronic kidney disease; Translations: [Anemia in chronic kidney disease] Onset: Chronic Deficiency and other anemia (16 sources) Iron deficiency anemia; Translations: [Iron deficiency anemia, unspecified] 01-31-2022 Episodic Deficiency and other anemia (2 sources) Iron deficiency anemia, unspecified; Translations: [Iron deficiency anemia, unspecified] Onset: Episodic Deficiency and other anemia (1 source) Anemia; Translations: [Anemia, unspecified] Onset: Episodic Deficiency and other anemia (1 source) Anemia, unspecified; Translations: [Anemia, unspecified] Onset: Episodic Diabetes mellitus with complications (20 sources) 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; Translations: [Type 1 diabetes mellitus with diabetic chronic kidney disease] Onset: 5 01-19-2020 Chronic Diabetes mellitus without complication (20 sources) Diabetes mellitus; Translations: [Type 2 diabetes mellitus without complications] Onset: 5 Chronic Diseases of white blood cells (18 sources) Leukocytosis; Translations: [Elevated white blood cell count, unspecified] 01-20-2020 Chronic Disorders of lipid metabolism (20 sources) Hyperlipidemia; Translations: [Hyperlipidemia, unspecified] Onset: 5 Chronic Esophageal disorders (20 sources) Gastroesophageal reflux disease; Translations: [Gastro-esophageal reflux disease without esophagitis] Onset: 5 Chronic Esophageal disorders (7 sources) Achalasia of esophagus; Translations: [Achalasia of cardia] Onset: 5 08-03-2025 Episodic Essential hypertension (9 sources) Hypertensive disorder; Translations: [Essential (primary) hypertension] Onset: 5 Chronic Fracture of lower limb (20 sources) Closed trimalleolar fracture; Translations: [Displaced trimalleolar fracture of left lower leg, initial encounter for closed fracture] Episodic Genitourinary symptoms and ill-defined conditions (20 sources) Blood in urine; Translations: [Hematuria, unspecified] 07-19-2020 Episodic Hypertension with complications and secondary hypertension (1 source) Hypertensive heart and chronic kidney disease with heart failure and stage 1 through stage 4 chronic kidney disease, or unspecified chronic kidney disease; Translations: [Hypertensive heart and chronic kidney disease with heart failure and stage 1 through stage 4 chronic kidney disease, or unspecified chronic kidney disease] Onset: 5 Chronic Malaise and fatigue (20 sources) Asthenia; Translations: [Other malaise] Onset: 5 Episodic Mood disorders (20 sources) Depressive disorder; Translations: [Depression] Chronic Mood disorders (1 source) Mood disorders; Translations: [Depression, unspecified] Onset: 5 Nutritional deficiencies (8 sources) Vitamin D deficiency; Translations: [Vitamin D deficiency, unspecified] Onset: 5 08-26-2023 Chronic Osteoarthritis (13 sources) Osteoarthritis; Translations: [Unspecified osteoarthritis, unspecified site] 03-15-2023 Chronic Other aftercare (1 source) nursing home (current) use of anticoagulants; Translations: [terminal operations supervisor (current) use of anticoagulants] Onset: 5 Episodic Other aftercare (1 source) terminal operations supervisor (current) use of oral hypoglycemic drugs; Translations: [terminal operations supervisor (current) use of oral hypoglycemic drugs] Onset: 5 Episodic Other circulatory disease (1 source) Personal history of transient ischemic attack (TIA), and cerebral infarction without residual deficits; Translations: [Personal history of transient ischemic attack (TIA), and cerebral infarction without residual deficits] Onset: 5 Episodic Other endocrine disorders (19 sources) Hypoglycemia; Translations: [Hypoglycemia, unspecified] Onset: 5 04-19-2021 Chronic Other endocrine disorders (1 source) Hypoglycemia, unspecified; Translations: [Hypoglycemia, unspecified] Onset: 5 Chronic Other endocrine disorders (1 source) Syndrome of inappropriate secretion of antidiuretic hormone; Translations: [Syndrome of inappropriate secretion of antidiuretic hormone] Onset: 5 Chronic Other gastrointestinal disorders (20 sources) Chronic constipation; Translations: [Other constipation] 07-19-2020 Episodic Other gastrointestinal disorders (2 sources) Dysphagia; Translations: [Dysphagia, unspecified] 2025 Episodic Other gastrointestinal disorders (1 source) Dysphagia, unspecified; Translations: [Dysphagia, unspecified] Onset: 5 Episodic Other liver diseases (3 sources) Jaundice; Translations: [Unspecified jaundice] 03-10-2024 Episodic Other lower respiratory disease (7 sources) Hypoxia; Translations: [Hypoxemia] 07-28-2023 Episodic Other lower respiratory disease (4 sources) Hypoxemia; Translations: [Hypoxemia] 07-28-2023 Episodic Other nervous system disorders (1 source) Dysphasia; Translations: [Dysphasia] Onset: 5 Episodic Other nervous system disorders (1 source) Dysphasia; Translations: [Dysphasia] Onset: 5 Episodic Other non-traumatic joint disorders (18 sources) Ankle pain; Translations: [Pain in left ankle and joints of left foot] 02-08-2022 Episodic Other non-traumatic joint disorders (3 sources) Pain in left ankle and joints of left foot; Translations: [Pain in joint, ankle and foot] Episodic Other non-traumatic joint disorders (9 sources) Pain in left knee; Translations: [Acute pain of left knee] 03-15-2023 Episodic Other nutritional; endocrine; and metabolic disorders (3 sources) Body mass index 30+ - obesity 08-04-2025 Chronic Other nutritional; endocrine; and metabolic disorders (1 source) Hypomagnesemia; Translations: [Hypomagnesemia] Onset: Chronic Other skin disorders (4 sources) Inflammatory dermatosis 12-12-2020 Episodic Pneumonia (except that caused by tuberculosis or sexually transmitted disease) (11 sources) Community acquired pneumonia; Translations: [Pneumonia, unspecified organism] 07-28-2023 Episodic Residual codes; unclassified (19 sources) Insomnia; Translations: [Insomnia, unspecified] 01-31-2022 Episodic Residual codes; unclassified (2 sources) Insomnia, unspecified; Translations: [Insomnia, unspecified] Onset: Episodic Residual codes; unclassified (4 sources) Peripheral edema 06-17-2024 Episodic Respiratory failure; insufficiency; arrest (adult) (20 sources) Chronic hypoxemic respiratory failure; Translations: [Chronic respiratory failure with hypoxia] Onset: 5 07-19-2020 Chronic Septicemia (except in labor) (11 sources) Sepsis; Translations: [Sepsis, unspecified organism] 07-28-2023 Episodic Spondylosis; intervertebral disc disorders; other back problems (4 sources) Degeneration of lumbar intervertebral disc 11-26-2021 Chronic Spondylosis; intervertebral disc disorders; other back problems (4 sources) Low back pain 11-11-2023 Episodic Sprains and strains (18 sources) Strain of muscle of lower limb; Translations: [Strain of unspecified muscle(s) and tendon(s) at lower leg level, left leg, initial encounter] 07-20-2020 Episodic Substance-related disorders (4 sources) Cigarette smoker 08-12-2022 Chronic Transient cerebral ischemia (5 sources) Transient cerebral ischemia; Translations: [Transient cerebral ischemic attack, unspecified] Onset: 5 04-12-2017 Chronic Unclassified (1 source) Unknown / UNK(Unknown) Onset: 7 Unclassified (9 sources) Patient encounter status 05-16-2025 Past or Other Problems Problem Classification Problem Date Documented Da te Episodic/Chronic Fluid and electrolyte disorders (20 sources) Hyponatremia; Translations: [Hypo-osmolality and hyponatremia] Onset: 01-04-2025 Episodic Nutritional deficiencies (20 sources) Cobalamin deficiency; Translations: [Deficiency of other specified B group vitamins] Onset: 05-16-2025 Episodic Screening and history of mental health and substance abuse codes (20 sources) Ex-tobacco user; Translations: [Personal history of nicotine dependence] Onset: 05-23-2025 07-19-2020 Episodic Unclassified (1 source) ACCIDENTAL FALL//WRIST PAIN Onset: 04-12-2017 Unclassified (17 sources) fall with rib pain 01-17-2020 Results Test Name Value Interpretation Reference [facility] Normal [facility] Comment on above: Result Comment: [id number] AP RC TRANSFUSED 08/19/25 [id number] AP RC TRANSFUSED 08/19/25 1023 Performed By: #### B JUDY, BTS ####[facility] [id number] [place], [place], [id number] Type AND Screenon 08-19-2025 ABO and Rh group Nom (Bld) Blood group A Rh(D) positive Normal [facility] Comment on above: Order Comment: NRNYA Performed By: #### Yasir KIM, BTS ####[facility] [id number] [facility]. [place], [place], [id number] .Auto Diffon 08-13-2025 Basophil, Absolute 0.0 10 3/mcL Normal 0.0-0.3 [facility] Comment on above: Performed By: #### B MP, GFR #### [address] [address] Basophils/100 WBC (Bld) 0.3 % Normal 0.0-2.5 [facility] Comment on above: Performed By: #### B MP, GFR #### [address] [address] Eosinophil, Absolute 0.1 10 3/mcL Normal 0.0-0.7 [facility] Comment on above: Performed By: #### B MP, GFR #### [address] [address] Eosinophils/100 WBC (Bld) 0.8 % Normal 0.0-6.0 [facility] Comment on above: Performed By: #### B MP, GFR #### [facility] [address], [place] [address] Lymphocyte, Absolute 0.4 10 3/mcL Low 0.9-4.3 [facility] Comment on above: Performed By: #### B MP, GFR #### [facility] [address], [place] [address] Lymphocytes/100 WBC (Bld) 4.5 % Low 20.0-40.0 [facility] Comment on above: Performed By: #### B MP, GFR #### [id number] [place], [place] [address] Monocyte, Absolute 0.3 10 3/mcL Normal 0.1-1.4 [facility] Comment on above: Performed By: #### B MP, GFR #### [address] [place], [place] [address] Monocytes/100 WBC (Bld) 3.5 % Normal 2.0-13.0 [facility] Comment on above: Performed By: #### B MP, GFR #### [address] [address] Neutrophils/100 WBC (Bld) 90.9 % High 50.0-75.0 [facility] Comment on above: Performed By: #### B MP, GFR #### [address] [address] .GFRon 08-13-2025 Estimated Glomerular Filtration Rate 24 ml/min/1.73sqm Normal [facility] Comment on above: Result Comment: Stages of Chronic Kidney Disease (CKD) Stage Description eGFR(ml/min/1.73 sq.m.) CKD 1 Normal kidney function or >=90 normal kindney function with possible kidney damage (ex. Proteinuria) CKD 2 Kidney damage with mild loss 60-89 of kidney function CKD 3a Mild to moderate loss of kidney 45-59 function CKD 3b Moderate to severe loss of 30-44 of kindey function CKD 4 Severe loss of kidney function 15-29 CKD 5 Kidney failure <15 Note: (go live 2024) the eGFR calculation was updated to the 2020 CKD-EPI creatinine equation without a race factor to calculate the eGFR results. Performed By: #### B MP, GFR #### [address] [address] Estimated Glomerular Filtration Rate 24 ml/min/1.73sqm Normal [facility] Comment on above: Result Comment: Stages of Chronic Kidney Disease (CKD) Stage Description eGFR(ml/min/1.73 sq.m.) CKD 1 Normal kidney function or >=90 normal kindney function with possible kidney damage (ex. Proteinuria) CKD 2 Kidney damage with mild loss 60-89 of kidney function CKD 3a Mild to moderate loss of kidney 45-59 function CKD 3b Moderate to severe loss of 30-44 of kindey function CKD 4 Severe loss of kidney function 15-29 CKD 5 Kidney failure <15 Note: (go live 2024) the eGFR calculation was updated to the 2020 CKD-EPI creatinine equation without a race factor to calculate the eGFR results. Performed By: #### B MP, GFR #### [address] [address] .NEUABSon 08-13-2025 Neutrophil, Absolute 7.9 10 3/mcL Normal 2.3-8.1 [facility] Comment on above: Performed By: #### B MP, GFR #### [address] [address] BMPon 08-13-2025 BUN/Creatinine Ratio 37 ratio High 7-27 [facility] Comment on above: Performed By: #### B MP, GFR #### [address] [address] Calcium [Mass/Vol] 8.4 mg/dL Normal 8.4-10.2 [facility] Comment on above: Performed By: #### B MP, GFR #### [address] [address] Chloride [Moles/Vol] 92 mmol/L Low 98-107 [facility] Comment on above: Performed By: #### B MP, GFR #### [address] [address] CO2 [Moles/Vol] 34 mmol/L High 23-31 [facility] Comment on above: Performed By: #### B MP, GFR #### [address] [address] Creatinine [Mass/Vol] 2.07 mg/dL High 0.51-0.95 [facility] Comment on above: Performed By: #### B MP, GFR #### [address] [address] Electrolyte Balance 4.0 mEq/L Normal 4.0-15.0 [facility] Comment on above: Performed By: #### B MP, GFR #### [address] [address] Glucose [Mass/Vol] 46 mg/dL Critically abnormal 83-110 [facility] Comment on above: Performed By: #### B MP, GFR #### [address] [address] Potassium [Moles/Vol] 3.1 mmol/L Low 3.5-5.1 [facility] Comment on above: Performed By: #### B MP, GFR #### [address] [address] Sodium [Moles/Vol] 130 mmol/L Low 136-145 [facility] Comment on above: Performed By: #### B MP, GFR #### [address] [address] Urea nitrogen [Mass/Vol] 76 mg/dL High 7-18 [facility] Comment on above: Performed By: #### B MP, GFR #### [address] [address] BUN/Creatinine Ratio 36 ratio High 7-27 [facility] Comment on above: Performed By: #### B MP, GFR #### [address] [address] Calcium [Mass/Vol] 8.6 mg/dL Normal 8.4-10.2 [facility] Comment on above: Performed By: #### B MP, GFR #### [address] [address] Chloride [Moles/Vol] 90 mmol/L Low 98-107 [facility] Comment on above: Performed By: #### B MP, GFR #### [address] [address] CO2 [Moles/Vol] 33 mmol/L High 23-31 [facility] Comment on above: Performed By: #### B MP, GFR #### [address] [address] Creatinine [Mass/Vol] 2.06 mg/dL High 0.51-0.95 [facility] Comment on above: Performed By: #### B MP, GFR #### [address] [address] Electrolyte Balance 6.0 mEq/L Normal 4.0-15.0 [facility] Comment on above: Performed By: #### B MP, GFR #### [address] [address] Glucose [Mass/Vol] 264 mg/dL High 83-110 [facility] Comment on above: Performed By: #### B MP, GFR #### [address] [address] Potassium [Moles/Vol] 3.7 mmol/L Normal 3.5-5.1 [facility] Comment on above: Performed By: #### B MP, GFR #### [address] [address] Sodium [Moles/Vol] 129 mmol/L Low 136-145 [facility] Comment on above: Performed By: #### B MP, GFR #### [address] [address] Urea nitrogen [Mass/Vol] 75 mg/dL High 7-18 [facility] Comment on above: Performed By: #### B MP, GFR #### [address] [address] CBCon 08-13-2025 Erythrocyte distribution width (RBC) [Ratio] 14.5 % Normal 11.5-15.5 [facility] Comment on above: Performed By: #### A PANFILO, ADIFF, CBC, BMP, GFR, MG #### [place] [address] Hematocrit (Bld) [Volume fraction] 22.0 % Low 34.0-46.0 [facility] Comment on above: Performed By: #### A PANFILO, ADIFF, CBC, BMP, GFR, MG #### [place] [address] Hgb 7.4 G/dL Low 12.0-16.0 [facility] Comment on above: Performed By: #### A PANFILO, ADIFF, CBC, BMP, GFR, MG #### [place] [address] MCH (RBC) [Entitic mass] 31.4 pg Normal 27.0-33.0 [facility] Comment on above: Performed By: #### A PANFILO, ADIFF, CBC, BMP, GFR, MG #### [place] [address] MCHC 33.8 G/dL Normal 32.0-36.0 [facility] Comment on above: Performed By: #### A PANFILO, ADIFF, CBC, BMP, GFR, MG #### [place] [address] MCV (RBC) [Entitic vol] 92.9 fL Normal 80.0-99.0 [facility] Comment on above: Performed By: #### A PANFILO, ADIFF, CBC, BMP, GFR, MG #### [place] [address]47 Platelet 156 10 3/mcL Normal 150-450 [facility] Comment on above: Performed By: #### A PANFILO, ADIFF, CBC, BMP, GFR, MG #### [place] [address] Platelet mean volume (Bld) [Entitic vol] 9.2 fL Normal 6.6-10.5 [facility] Comment on above: Performed By: #### A PANFILO, ADIFF, CBC, BMP, GFR, MG #### [place] [address] [place], [place] [address] RBC 2.37 10 6/mcL Low 4.10-5.30 [facility] Comment on above: Performed By: #### A PANFILO, ADIFF, CBC, BMP, GFR, MG #### [place] [address] [place], [place] [address] WBC 8.7 10 3/mcL Normal 4.5-10.8 [facility] Comment on above: Performed By: #### A PANFILO, ADIFF, CBC, BMP, GFR, MG #### [place] [address] [place], [place] [address] GLUon 08-13-2025 Glucose [Mass/Vol] 109 mg/dL Normal 83-110 [facility] Comment on above: Performed By: #### G FR, ADIFF, ANEU, BMP, MG, CBC #### [address] [address] LABORATORYOrdered By: Kayy Anderson on 08-13-2025 Blood Glucose Testing Reason Routine (08/13/25 4:50 PM) [facility] Work Phone: Glucose [Mass/Vol] 106 mg/dL Normal 82 - 115 mg/dL [facility] Work Phone: LABORATORYOrdered By: SYSTEM SYSTEM on 08-13-2025 Glucose [Mass/Vol] 109 mg/dL Normal 83 - 110 mg/dL AO ADM SS Calcium [Mass/Vol] 8.4 mg/dL Normal 8.4 - 10. 2 mg/dL AO ADM SS Chloride [Moles/Vol] 92 mmol/L Low 98 - 10 7 mmol/L AO ADM SS CO2 [Moles/Vol] 34 mmol/L High 23 - 31 mmol/L AO ADM SS Creatinine [Mass/Vol] 2.07 mg/dL High 0.51 - 0.95 mg/dL AO ADM SS Electrolyte Balance 4.0 mEq/L Normal 4.0 - 15 .0 mEq/L AO ADM SS GLOMERULAR FILTRATION RATE/1.73 SQ M.PREDICTED:ARVRAT:PT:SE R/PLAS/BLD:QN:CREATININE -BASED FORMULA (CKD-EPI 2020) 24 ml/min/1.73sqm Invalid Interpretation Code AO Chemistry S Comment on above: Interpretive Data: Stages of Chronic Kidney Disease (CKD) Stage Description eGFR(ml/min/1.73 sq.m.) CKD 1 Normal kidney function or >=90 normal kindney function with possible kidney damage (ex. Proteinuria) CKD 2 Kidney damage with mild loss 60-89 of kidney function CKD 3a Mild to moderate loss of kidney 45-59 function CKD 3b Moderate to severe loss of 30-44 of kindey function CKD 4 Severe loss of kidney function 15-29 CKD 5 Kidney failure <15 Note: (go live 2024) the eGFR calculation was updated to the 2020 CKD-EPI creatinine equation without a race factor to calculate the eGFR results. Glucose [Mass/Vol] 46 mg/dL Invalid Interpretation Code 83 - 110 mg/dL AO ADM SS Potassium [Moles/Vol] 3.1 mmol/L Low 3.5 - 5.1 mmol/L AO ADM SS Sodium [Moles/Vol] 130 mmol/L Low 136 - 145 mmol/L AO ADM SS Urea nitrogen [Mass/Vol] 76 mg/dL High 7 - 18 mg/dL AO ADM SS Urea nitrogen/Creatinine [Mass ratio] 37 ratio High 7 - 27 ratio AO ADM SS Basophils (Bld) [#/Vol] 0.0 103/mcL Normal 0.0 - 0.3 10^3/mcL AO Workflow SS Basophils/100 WBC (Bld) 0.3 % Normal 0.0 - 2.5 % AO Workflow SS Calcium [Mass/Vol] 8.6 mg/dL Normal 8.4 - 10. 2 mg/dL AO ADM SS Chloride [Moles/Vol] 90 mmol/L Low 98 - 10 7 mmol/L AO ADM SS CO2 [Moles/Vol] 33 mmol/L High 23 - 31 mmol/L AO ADM SS Creatinine [Mass/Vol] 2.06 mg/dL High 0.51 - 0.95 mg/dL AO ADM SS Electrolyte Balance 6.0 mEq/L Normal 4.0 - 15 .0 mEq/L AO ADM SS Eosinophil, Absolute 0.1 103/mcL Normal 0.0 - 0 .7 10^3/mcL AO Workflow SS Eosinophils/100 WBC (Bld) 0.8 % Normal 0.0 - 6.0 % AO Workflow SS Erythrocyte distribution width (RBC) [Ratio] 14.5 % Normal 11.5 - 15.5 % AO Workflow SS GLOMERULAR FILTRATION RATE/1.73 SQ M.PREDICTED:ARVRAT:PT:SE R/PLAS/BLD:QN:CREATININE -BASED FORMULA (CKD-EPI 2020) 24 ml/min/1.73sqm Invalid Interpretation Code AO Chemistry S Comment on above: Interpretive Data: Stages of Chronic Kidney Disease (CKD) Stage Description eGFR(ml/min/1.73 sq.m.) CKD 1 Normal kidney function or >=90 normal kindney function with possible kidney damage (ex. Proteinuria) CKD 2 Kidney damage with mild loss 60-89 of kidney function CKD 3a Mild to moderate loss of kidney 45-59 function CKD 3b Moderate to severe loss of 30-44 of kindey function CKD 4 Severe loss of kidney function 15-29 CKD 5 Kidney failure <15 Note: (go live 2024) the eGFR calculation was updated to the 2020 CKD-EPI creatinine equation without a race factor to calculate the eGFR results. Glucose [Mass/Vol] 264 mg/dL High 83 - 110 mg/dL AO ADM SS Hematocrit (Bld) [Volume fraction] 22.0 % Low 34.0 - 46.0 % AO Workflow SS Hemoglobin (Bld) [Mass/Vol] 7.4 G/dL Low 12.0 - 16.0 G/dL AO Workflow SS Lymphocytes (Bld) [#/Vol] 0.4 103/mcL Low 0.9 - 4.3 10^3/mcL AO Workflow SS Lymphocytes/100 WBC (Bld) 4.5 % Low 20.0 - 40.0 % AO Workflow SS Magnesium [Mass/Vol] 2.6 mg/dL High 1.8 - 2 .4 mg/dL AO ADM SS MCH (RBC) [Entitic mass] 31.4 pg Normal 27. 0 - 33.0 pg AO Workflow SS MCHC 33.8 G/dL Normal 32.0 - 36.0 G/dL AO Workflow SS MCV (RBC) [Entitic vol] 92.9 fL Normal 80.0 - 99.0 fL AO Workflow SS Monocytes (Bld) [#/Vol] 0.3 103/mcL Normal 0.1 - 1.4 10^3/mcL AO Workflow SS Monocytes/100 WBC (Bld) 3.5 % Normal 2.0 - 13.0 % AO Workflow SS Neutrophils (Bld) [#/Vol] 7.9 103/mcL Normal 2.3 - 8.1 10^3/mcL AO Workflow SS Neutrophils/100 WBC (Bld) 90.9 % High 50.0 - 75.0 % AO Workflow SS Platelet mean volume (Bld) [Entitic vol] 9.2 fL Normal 6.6 - 10.5 fL AO Workflow SS Platelets (Bld) [#/Vol] 156 103/mcL Normal 150 - 450 10^3/mcL AO Workflow SS Potassium [Moles/Vol] 3.7 mmol/L Normal 3.5 - 5.1 mmol/L AO ADM SS RBC (Bld) [#/Vol] 2.37 106/mcL Low 4.10 - 5.3 0 10^6/mcL AO Workflow SS Sodium [Moles/Vol] 129 mmol/L Low 136 - 145 mmol/L AO ADM SS Urea nitrogen [Mass/Vol] 75 mg/dL High 7 - 18 mg/dL AO ADM SS Urea nitrogen/Creatinine [Mass ratio] 36 ratio High 7 - 27 ratio AO ADM SS WBC (Bld) [#/Vol] 8.7 103/mcL Normal 4.5 - 10.8 10^3/mcL AO Workflow SS LABORATORYOrdered By: Bree Uribe on 08-13-2025 Blood Glucose Testing Reason Symptoms of hypoglycemia (08/13/25 3:41 PM) [facility] Work Phone: Glucose [Mass/Vol] 109 mg/dL Normal 82 - 115 mg/dL [facility] Work Phone: Blood Glucose Testing Reason Routine (08/13/25 3:01 PM) [facility] Work Phone: Glucose [Mass/Vol] 143 mg/dL High 82 - 115 mg/dL [facility] Work Phone: MGon 08-13-2025 Magnesium [Mass/Vol] 2.6 mg/dL High 1.8-2.4 [facility] Comment on above: Performed By: #### B MP, GFR #### [address] [address] No Panel InformationOrdered By: Bree Uribe on 08-13-2025 Blood Glucose Interventions Administered agent to increase blood sugar, Notify physician (08/13/25 2:15 PM) [facility] Work Phone: .Auto Diffon 08-12-2025 Basophil, Absolute 0.0 10 3/mcL Normal 0.0-0.3 [facility] Comment on above: Performed By: #### G FR, ADIFF, ANEU, BMP, MG, CBC #### [address] [address] Basophils/100 WBC (Bld) 0.2 % Normal 0.0-2.5 [facility] Comment on above: Performed By: #### G FR, ADIFF, ANEU, BMP, MG, CBC #### [address] [address] Eosinophil, Absolute 0.2 10 3/mcL Normal 0.0-0.7 [facility] Comment on above: Performed By: #### G FR, ADIFF, ANEU, BMP, MG, CBC #### [address] [address] Eosinophils/100 WBC (Bld) 3.3 % Normal 0.0-6.0 [facility] Comment on above: Performed By: #### G FR, ADIFF, ANEU, BMP, MG, CBC #### [address] [address] Lymphocyte, Absolute 0.7 10 3/mcL Low 0.9-4.3 [facility] Comment on above: Performed By: #### G FR, ADIFF, ANEU, BMP, MG, CBC #### [address] [address] Lymphocytes/100 WBC (Bld) 9.4 % Low 20.0-40.0 [facility] Comment on above: Performed By: #### G FR, ADIFF, ANEU, BMP, MG, CBC #### [place] [address] [place], [place] [address] Monocyte, Absolute 0.4 10 3/mcL Normal 0.1-1.4 [facility] Comment on above: Performed By: #### G FR, ADIFF, ANEU, BMP, MG, CBC #### [address] [address] Monocytes/100 WBC (Bld) 5.9 % Normal 2.0-13.0 [facility] Comment on above: Performed By: #### G FR, ADIFF, ANEU, BMP, MG, CBC #### [address] [address] Neutrophils/100 WBC (Bld) 81.2 % High 50.0-75.0 [facility] Comment on above: Performed By: #### G FR, ADIFF, ANEU, BMP, MG, CBC #### [address] [address] .GFRon 08-12-2025 Estimated Glomerular Filtration Rate 23 ml/min/1.73sqm Normal [facility] Comment on above: Result Comment: Stages of Chronic Kidney Disease (CKD) Stage Description eGFR(ml/min/1.73 sq.m.) CKD 1 Normal kidney function or >=90 normal kindney function with possible kidney damage (ex. Proteinuria) CKD 2 Kidney damage with mild loss 60-89 of kidney function CKD 3a Mild to moderate loss of kidney 45-59 function CKD 3b Moderate to severe loss of 30-44 of kindey function CKD 4 Severe loss of kidney function 15-29 CKD 5 Kidney failure <15 Note: (go live 2024) the eGFR calculation was updated to the 2020 CKD-EPI creatinine equation without a race factor to calculate the eGFR results. Performed By: #### G FR, ADIFF, ANEU, BMP, MG, CBC #### [place] [address] [place], [place] [address] .NEUABSon 08-12-2025 Neutrophil, Absolute 5.8 10 3/mcL Normal 2.3-8.1 [facility] Comment on above: Performed By: #### G FR, ADIFF, ANEU, BMP, MG, CBC #### [address] [address] BGon 08-12-2025 Base excess Calc (Bld) [Moles/Vol] 2.4 mmol/L Normal [facility] Comment on above: Performed By: #### B G #### [address] [address] CO2 [Moles/Vol] 29.3 mmol/L Normal 22.0-30.0 [facility] Comment on above: Performed By: #### B G #### [address] [address] HCO3 (Bld) [Moles/Vol] 27.8 mmol/L Normal 21.0-29.0 [facility] Comment on above: Performed By: #### B G #### [address] [address] Oxygen (Bld) [Partial pressure] 82.6 mm[Hg] Normal 74.0-108.0 [facility] Comment on above: Performed By: #### B G #### [address] [address] Oxygen saturation in Blood 95.3 % Normal 92.0-96.0 [facility] Comment on above: Performed By: #### B G #### [address] [address] pCO2 47.9 mmHg High 32.0-46.0 [facility] Comment on above: Performed By: #### B G #### [address] [address] pH (Bld) 7.382 [pH] Normal 7.380-7.460 [facility] Comment on above: Performed By: #### B G #### [address] [address] BMPon 08-12-2025 BUN/Creatinine Ratio 31 ratio High 7-27 [facility] Comment on above: Performed By: #### G FR, ADIFF, ANEU, BMP, MG, CBC #### [address] [address] Calcium [Mass/Vol] 8.3 mg/dL Low 8.4-10.2 [facility] Comment on above: Performed By: #### G FR, ADIFF, ANEU, BMP, MG, CBC #### [address] [address] Chloride [Moles/Vol] 91 mmol/L Low 98-107 [facility] Comment on above: Performed By: #### G FR, ADIFF, ANEU, BMP, MG, CBC #### [address] [address] CO2 [Moles/Vol] 34 mmol/L High 23-31 [facility] Comment on above: Performed By: #### G FR, ADIFF, ANEU, BMP, MG, CBC #### [address] [address] Creatinine [Mass/Vol] 2.12 mg/dL High 0.51-0.95 [facility] Comment on above: Performed By: #### G FR, ADIFF, ANEU, BMP, MG, CBC #### [address] [address] Electrolyte Balance 5.0 mEq/L Normal 4.0-15.0 [facility] Comment on above: Performed By: #### G FR, ADIFF, ANEU, BMP, MG, CBC #### [address] [address] Glucose [Mass/Vol] 168 mg/dL High 83-110 [facility] Comment on above: Performed By: #### G FR, ADIFF, ANEU, BMP, MG, CBC #### [address] [address] Potassium [Moles/Vol] 3.3 mmol/L Low 3.5-5.1 [facility] Comment on above: Performed By: #### G FR, ADIFF, ANEU, BMP, MG, CBC #### [place] [address] Sodium [Moles/Vol] 130 mmol/L Low 136-145 [facility] Comment on above: Performed By: #### G FR, ADIFF, ANEU, BMP, MG, CBC #### [place] [address] Urea nitrogen [Mass/Vol] 66 mg/dL High 7-18 [facility] Comment on above: Performed By: #### G FR, ADIFF, ANEU, BMP, MG, CBC #### [place] [address] CBCon 08-12-2025 Erythrocyte distribution width (RBC) [Ratio] 14.5 % Normal 11.5-15.5 [facility] Comment on above: Performed By: #### G FR, ADIFF, ANEU, BMP, MG, CBC #### [place] [address] Hematocrit (Bld) [Volume fraction] 21.6 % Low 34.0-46.0 [facility] Comment on above: Performed By: #### G FR, ADIFF, ANEU, BMP, MG, CBC #### [place] [address] Hgb 7.3 G/dL Low 12.0-16.0 [facility] Comment on above: Performed By: #### G FR, ADIFF, ANEU, BMP, MG, CBC #### [place] [address] MCH (RBC) [Entitic mass] 31.3 pg Normal 27.0-33.0 [facility] Comment on above: Performed By: #### G FR, ADIFF, ANEU, BMP, MG, CBC #### [place] [address] MCHC 33.6 G/dL Normal 32.0-36.0 [facility] Comment on above: Performed By: #### G FR, ADIFF, ANEU, BMP, MG, CBC #### [place] [address] [place] [address] MCV (RBC) [Entitic vol] 93.2 fL Normal 80.0-99.0 [facility] Comment on above: Performed By: #### G FR, ADIFF, ANEU, BMP, MG, CBC #### [place] [address] Platelet 151 10 3/mcL Normal 150-450 [facility] Comment on above: Performed By: #### G FR, ADIFF, ANEU, BMP, MG, CBC #### [place] [address] Platelet mean volume (Bld) [Entitic vol] 9.1 fL Normal 6.6-10.5 [facility] Comment on above: Performed By: #### G FR, ADIFF, ANEU, BMP, MG, CBC #### [place] [address] RBC 2.32 10 6/mcL Low 4.10-5.30 [facility] Comment on above: Performed By: #### G FR, ADIFF, ANEU, BMP, MG, CBC #### [place] [address] WBC 7.1 10 3/mcL Normal 4.5-10.8 [facility] Comment on above: Performed By: #### G FR, ADIFF, ANEU, BMP, MG, CBC #### [place] [address] LABORATORYOrdered By: Tomas Villa on 08-12-2025 Osmolality (U) [Osmolality] 320 mosm/kg Low 390 - 1090 mOsm/kg Manual Chem SS Osmolality [Osmolality] 298 mosm/kg Normal 275 - 300 mOsm/kg Manual Chem SS LABORATORYOrdered By: SYSTEM SYSTEM on 08-12-2025 Sodium (U) [Moles/Vol] 38 mmol/L Invalid Interpretation Code AO ADM SS Basophils (Bld) [#/Vol] 0.0 103/mcL Normal 0.0 - 0.3 10^3/mcL AO Workflow SS Basophils/100 WBC (Bld) 0.2 % Normal 0.0 - 2.5 % AO Workflow SS Calcium [Mass/Vol] 8.3 mg/dL Low 8.4 - 10. 2 mg/dL AO ADM SS Chloride [Moles/Vol] 91 mmol/L Low 98 - 10 7 mmol/L AO ADM SS CO2 [Moles/Vol] 34 mmol/L High 23 - 31 mmol/L AO ADM SS Creatinine [Mass/Vol] 2.12 mg/dL High 0.51 - 0.95 mg/dL AO ADM SS Electrolyte Balance 5.0 mEq/L Normal 4.0 - 15 .0 mEq/L AO ADM SS Eosinophil, Absolute 0.2 103/mcL Normal 0.0 - 0 .7 10^3/mcL AO Workflow SS Eosinophils/100 WBC (Bld) 3.3 % Normal 0.0 - 6.0 % AO Workflow SS Erythrocyte distribution width (RBC) [Ratio] 14.5 % Normal 11.5 - 15.5 % AO Workflow SS GLOMERULAR FILTRATION RATE/1.73 SQ M.PREDICTED:ARVRAT:PT:SE R/PLAS/BLD:QN:CREATININE -BASED FORMULA (CKD-EPI 2020) 23 ml/min/1.73sqm Invalid Interpretation Code AO Chemistry S Comment on above: Interpretive Data: Stages of Chronic Kidney Disease (CKD) Stage Description eGFR(ml/min/1.73 sq.m.) CKD 1 Normal kidney function or >=90 normal kindney function with possible kidney damage (ex. Proteinuria) CKD 2 Kidney damage with mild loss 60-89 of kidney function CKD 3a Mild to moderate loss of kidney 45-59 function CKD 3b Moderate to severe loss of 30-44 of kindey function CKD 4 Severe loss of kidney function 15-29 CKD 5 Kidney failure <15 Note: (go live 2024) the eGFR calculation was updated to the 2020 CKD-EPI creatinine equation without a race factor to calculate the eGFR results. Hematocrit (Bld) [Volume fraction] 21.6 % Low 34.0 - 46.0 % AO Workflow SS Hemoglobin (Bld) [Mass/Vol] 7.3 G/dL Low 12.0 - 16.0 G/dL AO Workflow SS Lymphocytes (Bld) [#/Vol] 0.7 103/mcL Low 0.9 - 4.3 10^3/mcL AO Workflow SS Lymphocytes/100 WBC (Bld) 9.4 % Low 20.0 - 40.0 % AO Workflow SS Magnesium [Mass/Vol] 2.4 mg/dL Normal 1.8 - 2 .4 mg/dL AO ADM SS MCH (RBC) [Entitic mass] 31.3 pg Normal 27. 0 - 33.0 pg AO Workflow SS MCHC 33.6 G/dL Normal 32.0 - 36.0 G/dL AO Workflow SS MCV (RBC) [Entitic vol] 93.2 fL Normal 80.0 - 99.0 fL AO Workflow SS Monocytes (Bld) [#/Vol] 0.4 103/mcL Normal 0.1 - 1.4 10^3/mcL AO Workflow SS Monocytes/100 WBC (Bld) 5.9 % Normal 2.0 - 13.0 % AO Workflow SS Neutrophils (Bld) [#/Vol] 5.8 103/mcL Normal 2.3 - 8.1 10^3/mcL AO Workflow SS Neutrophils/100 WBC (Bld) 81.2 % High 50.0 - 75.0 % AO Workflow SS Platelet mean volume (Bld) [Entitic vol] 9.1 fL Normal 6.6 - 10.5 fL AO Workflow SS Platelets (Bld) [#/Vol] 151 103/mcL Normal 150 - 450 10^3/mcL AO Workflow SS Potassium [Moles/Vol] 3.3 mmol/L Low 3.5 - 5.1 mmol/L AO ADM SS RBC (Bld) [#/Vol] 2.32 106/mcL Low 4.10 - 5.3 0 10^6/mcL AO Workflow SS Sodium [Moles/Vol] 130 mmol/L Low 136 - 145 mmol/L AO ADM SS Urea nitrogen [Mass/Vol] 66 mg/dL High 7 - 18 mg/dL AO ADM SS Urea nitrogen/Creatinine [Mass ratio] 31 ratio High 7 - 27 ratio AO ADM SS WBC (Bld) [#/Vol] 7.1 103/mcL Normal 4.5 - 10.8 10^3/mcL AO Workflow SS LABORATORYOrdered By: Zeb hall on 08-12-2025 CO2 [Moles/Vol] 29.3 mmol/L Normal 22.0 - 30.0 mmol/L AO Rapid Comm SS HCO3 (Bld) [Moles/Vol] 27.8 mmol/L Normal 21.0 - 29.0 mmol/L AO Rapid Comm SS Oxygen (Bld) [Partial pressure] 82.6 mm[Hg] Normal 74.0 - 108.0 mm Hg AO Rapid Comm SS pCO2 47.9 mm[Hg] High 32.0 - 46.0 mm Hg AO Rapid Comm SS pH (Bld) 7.382 [pH] Normal 7.380 - 7.460 AO Rapid Comm SS Sodium [Moles/Vol] 2.4 mmol/L Invalid Interpretation Code AO Rapid Comm SS MGon 08-12-2025 Magnesium [Mass/Vol] 2.4 mg/dL Normal 1.8-2.4 [facility] Comment on above: Performed By: #### G FR, ADIFF, ANEU, BMP, MG, CBC #### [address] [address] NAURon 08-12-2025 Sodium [Moles/Vol] 38 mmol/L Normal [facility] Comment on above: Performed By: #### G FR, ADIFF, ANEU, BMP, MG, CBC #### [address] [address] OSMOSon 08-12-2025 Osmolality [Osmolality] 298 mosm/kg Normal 275-300 [facility] Comment on above: Performed By: #### G FR, ADIFF, ANEU, BMP, MG, CBC #### [address] [address] OSMOUon 08-12-2025 U Osmolality 320 mOsm/kg Low 390-1090 [facility] Comment on above: Performed By: #### G FR, ADIFF, ANEU, BMP, MG, CBC #### [address] [address] .Auto Diffon 08-11-2025 Basophil, Absolute 0.0 10 3/mcL Normal 0.0-0.3 [facility] Comment on above: Performed By: #### B MP, GFR #### [address] [address] Basophils/100 WBC (Bld) 0.3 % Normal 0.0-2.5 [facility] Comment on above: Performed By: #### B MP, GFR #### [address] [address] Eosinophil, Absolute 0.2 10 3/mcL Normal 0.0-0.7 [facility] Comment on above: Performed By: #### B MP, GFR #### [address] [address] Eosinophils/100 WBC (Bld) 3.2 % Normal 0.0-6.0 [facility] Comment on above: Performed By: #### B MP, GFR #### [address] [address] Lymphocyte, Absolute 0.6 10 3/mcL Low 0.9-4.3 [facility] Comment on above: Performed By: #### B MP, GFR #### [address] [address] Lymphocytes/100 WBC (Bld) 9.2 % Low 20.0-40.0 [facility] Comment on above: Performed By: #### B MP, GFR #### [address] [address] Monocyte, Absolute 0.3 10 3/mcL Normal 0.1-1.4 [facility] Comment on above: Performed By: #### B MP, GFR #### [address] [address] Monocytes/100 WBC (Bld) 5.0 % Normal 2.0-13.0 [facility] Comment on above: Performed By: #### B MP, GFR #### [address] [address] Neutrophils/100 WBC (Bld) 82.3 % High 50.0-75.0 [facility] Comment on above: Performed By: #### B MP, GFR #### [address] [address] .GFRon 08-11-2025 Estimated Glomerular Filtration Rate 23 ml/min/1.73sqm Normal [facility] Comment on above: Result Comment: Stages of Chronic Kidney Disease (CKD) Stage Description eGFR(ml/min/1.73 sq.m.) CKD 1 Normal kidney function or >=90 normal kindney function with possible kidney damage (ex. Proteinuria) CKD 2 Kidney damage with mild loss 60-89 of kidney function CKD 3a Mild to moderate loss of kidney 45-59 function CKD 3b Moderate to severe loss of 30-44 of kindey function CKD 4 Severe loss of kidney function 15-29 CKD 5 Kidney failure <15 Note: (go live 2024) the eGFR calculation was updated to the 2020 CKD-EPI creatinine equation without a race factor to calculate the eGFR results. Performed By: #### G FR, ADIFF, ANEU, BMP, MG, CBC #### [address] [id number] .NEUABSon 08-11-2025 Neutrophil, Absolute 5.7 10 3/mcL Normal 2.3-8.1 [facility] Comment on above: Performed By: #### G FR, ADIFF, ANEU, BMP, MG, CBC #### [address] [address] BMPon 08-11-2025 BUN/Creatinine Ratio 29 ratio High 7-27 [facility] Comment on above: Performed By: #### G FR, ADIFF, ANEU, BMP, MG, CBC #### [address] [address] Calcium [Mass/Vol] 8.3 mg/dL Low 8.4-10.2 [facility] Comment on above: Performed By: #### G FR, ADIFF, ANEU, BMP, MG, CBC #### [address] [address] Chloride [Moles/Vol] 92 mmol/L Low 98-107 [facility] Comment on above: Performed By: #### G FR, ADIFF, ANEU, BMP, MG, CBC #### [address] [address] CO2 [Moles/Vol] 34 mmol/L High 23-31 [facility] Comment on above: Performed By: #### G FR, ADIFF, ANEU, BMP, MG, CBC #### [address] [address] Creatinine [Mass/Vol] 2.11 mg/dL High 0.51-0.95 [facility] Comment on above: Performed By: #### G FR, ADIFF, ANEU, BMP, MG, CBC #### [address] [address] Electrolyte Balance 6.0 mEq/L Normal 4.0-15.0 [facility] Comment on above: Performed By: #### G FR, ADIFF, ANEU, BMP, MG, CBC #### [address] [address] Glucose [Mass/Vol] 198 mg/dL High 83-110 [facility] Comment on above: Performed By: #### G FR, ADIFF, ANEU, BMP, MG, CBC #### [address] [address] Potassium [Moles/Vol] 3.7 mmol/L Normal 3.5-5.1 [facility] Comment on above: Performed By: #### G FR, ADIFF, ANEU, BMP, MG, CBC #### [address] [address] Sodium [Moles/Vol] 132 mmol/L Low 136-145 [facility] Comment on above: Performed By: #### G FR, ADIFF, ANEU, BMP, MG, CBC #### [address] [address] Urea nitrogen [Mass/Vol] 61 mg/dL High 7-18 [facility] Comment on above: Performed By: #### G FR, ADIFF, ANEU, BMP, MG, CBC #### [address] [address] CBCon 08-11-2025 Erythrocyte distribution width (RBC) [Ratio] 14.6 % Normal 11.5-15.5 [facility] Comment on above: Performed By: #### B MP, GFR #### [address] [address] Hematocrit (Bld) [Volume fraction] 22.2 % Low 34.0-46.0 [facility] Comment on above: Performed By: #### B MP, GFR #### [address] [address] Hgb 7.6 G/dL Low 12.0-16.0 [facility] Comment on above: Performed By: #### B MP, GFR #### [address] [address] MCH (RBC) [Entitic mass] 31.5 pg Normal 27.0-33.0 [facility] Comment on above: Performed By: #### B MP, GFR #### [address] [address] MCHC 34.0 G/dL Normal 32.0-36.0 [facility] Comment on above: Performed By: #### B MP, GFR #### [address] [address] MCV (RBC) [Entitic vol] 92.7 fL Normal 80.0-99.0 [facility] Comment on above: Performed By: #### B MP, GFR #### [address] [address] Platelet 147 10 3/mcL Low 150-450 [facility] Comment on above: Performed By: #### B MP, GFR #### [address] [address] Platelet mean volume (Bld) [Entitic vol] 9.1 fL Normal 6.6-10.5 [facility] Comment on above: Performed By: #### B MP, GFR #### [address] [address] RBC 2.40 10 6/mcL Low 4.10-5.30 [facility] Comment on above: Performed By: #### B MP, GFR #### [address] [address] WBC 6.9 10 3/mcL Normal 4.5-10.8 [facility] Comment on above: Performed By: #### B MP, GFR #### [facility] [address] [place], [place] [address] LABORATORYOrdered By: SYSTEM SYSTEM on 08-11-2025 Basophils (Bld) [#/Vol] 0.0 103/mcL Normal 0.0 - 0.3 10^3/mcL AO Workflow SS Basophils/100 WBC (Bld) 0.3 % Normal 0.0 - 2.5 % AO Workflow SS Eosinophil, Absolute 0.2 103/mcL Normal 0.0 - 0 .7 10^3/mcL AO Workflow SS Eosinophils/100 WBC (Bld) 3.2 % Normal 0.0 - 6.0 % AO Workflow SS Erythrocyte distribution width (RBC) [Ratio] 14.6 % Normal 11.5 - 15.5 % AO Workflow SS Hematocrit (Bld) [Volume fraction] 22.2 % Low 34.0 - 46.0 % AO Workflow SS Hemoglobin (Bld) [Mass/Vol] 7.6 G/dL Low 12.0 - 16.0 G/dL AO Workflow SS Lymphocytes (Bld) [#/Vol] 0.6 103/mcL Low 0.9 - 4.3 10^3/mcL AO Workflow SS Lymphocytes/100 WBC (Bld) 9.2 % Low 20.0 - 40.0 % AO Workflow SS Magnesium [Mass/Vol] 2.5 mg/dL High 1.8 - 2 .4 mg/dL AO ADM SS MCH (RBC) [Entitic mass] 31.5 pg Normal 27. 0 - 33.0 pg AO Workflow SS MCHC 34.0 G/dL Normal 32.0 - 36.0 G/dL AO Workflow SS MCV (RBC) [Entitic vol] 92.7 fL Normal 80.0 - 99.0 fL AO Workflow SS Monocytes (Bld) [#/Vol] 0.3 103/mcL Normal 0.1 - 1.4 10^3/mcL AO Workflow SS Monocytes/100 WBC (Bld) 5.0 % Normal 2.0 - 13.0 % AO Workflow SS Neutrophils (Bld) [#/Vol] 5.7 103/mcL Normal 2.3 - 8.1 10^3/mcL AO Workflow SS Neutrophils/100 WBC (Bld) 82.3 % High 50.0 - 75.0 % AO Workflow SS Platelet mean volume (Bld) [Entitic vol] 9.1 fL Normal 6.6 - 10.5 fL AO Workflow SS Platelets (Bld) [#/Vol] 147 103/mcL Low 150 - 450 10^3/mcL AO Workflow SS RBC (Bld) [#/Vol] 2.40 106/mcL Low 4.10 - 5.3 0 10^6/mcL AO Workflow SS WBC (Bld) [#/Vol] 6.9 103/mcL Normal 4.5 - 10.8 10^3/mcL AO Workflow SS MGon 08-11-2025 Magnesium [Mass/Vol] 2.5 mg/dL High 1.8-2.4 [facility] Comment on above: Performed By: #### G FR, ADIFF, ANEU, BMP, MG, CBC #### [address] [address] XR CHEST 1 VIEWon 08-11-2025 XR CHEST 1 VIEW ORIGINAL EXAMINATION: ONE XRAY VIEW OF THE CHEST 08/11/2025 5:52 am COMPARISON: Chest x-ray 08/09/2025 HISTORY: ORDERING SYSTEM PROVIDED HISTORY: Reason for Exam: CHF FINDINGS: Cardiomediastinal contour stable. Similar appearing bilateral perihilar fullness and vascular prominence. Similar appearing diffuse interstitial haziness. No pneumothorax. Suspect small bilateral pleural effusions. No acute osseous abnormality. IMPRESSION: Grossly stable central vascular congestion and likely pulmonary edema. Small bilateral pleural effusions. I have personally reviewed the images of this examination, and agree with the resident's findings and interpretation. Interpreted by: Johnathan Edwards MD Preliminary Report By: Paddy May Electronically signed By Johnathan Edwards MD Dictated Date: 08/11/2025 5:58:38 AM Prelim Date: 08/11/2025 5:59:30 AM Sign Date: 08/11/2025 6:01:57 AM Ordering Provider: SHUKRI DAVID RP Normal [facility] .Auto Diffon 08-10-2025 Basophil, Absolute 0.0 10 3/mcL Normal 0.0-0.3 [facility] Comment on above: Performed By: #### G FR, ADIFF, ANEU, BMP, MG, CBC #### [address] [address] Basophils/100 WBC (Bld) 0.5 % Normal 0.0-2.5 [facility] Comment on above: Performed By: #### G FR, ADIFF, ANEU, BMP, MG, CBC #### [address] [address] Eosinophil, Absolute 0.2 10 3/mcL Normal 0.0-0.7 [facility] Comment on above: Performed By: #### G FR, ADIFF, ANEU, BMP, MG, CBC #### [address] [address] Eosinophils/100 WBC (Bld) 3.4 % Normal 0.0-6.0 [facility] Comment on above: Performed By: #### G FR, ADIFF, ANEU, BMP, MG, CBC #### [address] [address] Lymphocyte, Absolute 0.8 10 3/mcL Low 0.9-4.3 [facility] Comment on above: Performed By: #### G FR, ADIFF, ANEU, BMP, MG, CBC #### [address] [address] Lymphocytes/100 WBC (Bld) 13.3 % Low 20.0-40.0 [facility] Comment on above: Performed By: #### G FR, ADIFF, ANEU, BMP, MG, CBC #### [address] [address] Monocyte, Absolute 0.4 10 3/mcL Normal 0.1-1.4 [facility] Comment on above: Performed By: #### G FR, ADIFF, ANEU, BMP, MG, CBC #### [address] [address] Monocytes/100 WBC (Bld) 7.2 % Normal 2.0-13.0 [facility] Comment on above: Performed By: #### G FR, ADIFF, ANEU, BMP, MG, CBC #### [place] [address] [place], [place] [address] Neutrophils/100 WBC (Bld) 75.6 % High 50.0-75.0 [facility] Comment on above: Performed By: #### G FR, ADIFF, ANEU, BMP, MG, CBC #### [address] [address] .GFRon 08-10-2025 Estimated Glomerular Filtration Rate 24 ml/min/1.73sqm Normal [facility] Comment on above: Result Comment: Stages of Chronic Kidney Disease (CKD) Stage Description eGFR(ml/min/1.73 sq.m.) CKD 1 Normal kidney function or >=90 normal kindney function with possible kidney damage (ex. Proteinuria) CKD 2 Kidney damage with mild loss 60-89 of kidney function CKD 3a Mild to moderate loss of kidney 45-59 function CKD 3b Moderate to severe loss of 30-44 of kindey function CKD 4 Severe loss of kidney function 15-29 CKD 5 Kidney failure <15 Note: (go live 2024) the eGFR calculation was updated to the 2020 CKD-EPI creatinine equation without a race factor to calculate the eGFR results. Performed By: #### G FR, ADIFF, ANEU, BMP, MG, CBC #### [address] [address] .NEUABSon 08-10-2025 Neutrophil, Absolute 4.6 10 3/mcL Normal 2.3-8.1 [facility] Comment on above: Performed By: #### G FR, ADIFF, ANEU, BMP, MG, CBC #### [address] [address] BMPon 08-10-2025 BUN/Creatinine Ratio 23 ratio Normal 7-27 [facility] Comment on above: Performed By: #### G FR, ADIFF, ANEU, BMP, MG, CBC #### [address] [address] Calcium [Mass/Vol] 8.0 mg/dL Low 8.4-10.2 [facility] Comment on above: Performed By: #### G FR, ADIFF, ANEU, BMP, MG, CBC #### [place] [address] Chloride [Moles/Vol] 93 mmol/L Low 98-107 [facility] Comment on above: Performed By: #### G FR, ADIFF, ANEU, BMP, MG, CBC #### [place] [address] CO2 [Moles/Vol] 35 mmol/L High 23-31 [facility] Comment on above: Performed By: #### G FR, ADIFF, ANEU, BMP, MG, CBC #### [place] [address] Creatinine [Mass/Vol] 2.08 mg/dL High 0.51-0.95 [facility] Comment on above: Performed By: #### G FR, ADIFF, ANEU, BMP, MG, CBC #### [place] [address] Electrolyte Balance 6.0 mEq/L Normal 4.0-15.0 [facility] Comment on above: Performed By: #### G FR, ADIFF, ANEU, BMP, MG, CBC #### [place] [address] Glucose [Mass/Vol] 146 mg/dL High 83-110 [facility] Comment on above: Performed By: #### G FR, ADIFF, ANEU, BMP, MG, CBC #### [place] [address] Potassium [Moles/Vol] 4.8 mmol/L Normal 3.5-5.1 [facility] Comment on above: Performed By: #### G FR, ADIFF, ANEU, BMP, MG, CBC #### [place] [address] Sodium [Moles/Vol] 134 mmol/L Low 136-145 [facility] Comment on above: Performed By: #### G FR, ADIFF, ANEU, BMP, MG, CBC #### [address] [address] Urea nitrogen [Mass/Vol] 48 mg/dL High 7-18 [facility] Comment on above: Performed By: #### G FR, ADIFF, ANEU, BMP, MG, CBC #### [address] [address] CBCon 08-10-2025 Erythrocyte distribution width (RBC) [Ratio] 14.8 % Normal 11.5-15.5 [facility] Comment on above: Performed By: #### G FR, ADIFF, ANEU, BMP, MG, CBC #### [place] [address] Hematocrit (Bld) [Volume fraction] 22.0 % Low 34.0-46.0 [facility] Comment on above: Performed By: #### G FR, ADIFF, ANEU, BMP, MG, CBC #### [place] [address] Hgb 7.4 G/dL Low 12.0-16.0 [facility] Comment on above: Performed By: #### G FR, ADIFF, ANEU, BMP, MG, CBC #### [place] [address] MCH (RBC) [Entitic mass] 31.2 pg Normal 27.0-33.0 [facility] Comment on above: Performed By: #### G FR, ADIFF, ANEU, BMP, MG, CBC #### [place] [address] MCHC 33.4 G/dL Normal 32.0-36.0 [facility] Comment on above: Performed By: #### G FR, ADIFF, ANEU, BMP, MG, CBC #### [place] [address] MCV (RBC) [Entitic vol] 93.2 fL Normal 80.0-99.0 [facility] Comment on above: Performed By: #### G FR, ADIFF, ANEU, BMP, MG, CBC #### [address] [address] Platelet 134 10 3/mcL Low 150-450 [facility] Comment on above: Performed By: #### G FR, ADIFF, ANEU, BMP, MG, CBC #### [address] [address] Platelet mean volume (Bld) [Entitic vol] 8.5 fL Normal 6.6-10.5 [facility] Comment on above: Performed By: #### G FR, ADIFF, ANEU, BMP, MG, CBC #### [address] [address] RBC 2.36 10 6/mcL Low 4.10-5.30 [facility] Comment on above: Performed By: #### G FR, ADIFF, ANEU, BMP, MG, CBC #### [address] [address] WBC 6.1 10 3/mcL Normal 4.5-10.8 [facility] Comment on above: Performed By: #### G FR, ADIFF, ANEU, BMP, MG, CBC #### [address] [address] Marti 08-10-2025 Ferritin [Mass/Vol] 338.0 ng/mL High 8.0-252.0 [facility] Comment on above: Performed By: #### B MP, GFR #### [address] [address] FESon 08-10-2025 Iron [Mass/Vol] 48 ug/dL Low 50-170 [facility] Comment on above: Performed By: #### B MP, GFR #### [address] [address] Iron Sat 25 % Normal [facility] Comment on above: Performed By: #### B MP, GFR #### [address] [address] TIBC 193 mcg/dL Low 250-450 [facility] Comment on above: Performed By: #### B MP, GFR #### [address] [address] LABORATORYOrdered By: Judson Cruz on 08-10-2025 Blood Glucose Interventions Administered agent to increase blood sugar (08/10/25 9:37 PM) [facility] Work Phone: Blood Glucose Interventions Administered food/juice (08/10/25 9:07 PM) [facility] Work Phone: LABORATORYOrdered By: SYSTEM SYSTEM on 08-10-2025 Ferritin [Mass/Vol] 338.0 ng/mL High 8.0 - 25 2.0 ng/mL AO ADM SS Immature reticulocytes/Total reticulocytes (Bld) 0.56 IRF High 0.20 - 0.46 IRF AO Workflow SS Iron [Mass/Vol] 48 ug/dL Low 50 - 170 mcg/dL AO ADM SS Iron binding capacity [Mass/Vol] 193 mcg/dL Low 250 - 450 mcg/dL AO ADM SS Iron Sat 25 % Invalid Interpretation Code AO ADM SS Reticulocytes, Auto 3.1 % High 0.2 - 2.3 % AO W orkflow SS MGon 08-10-2025 Magnesium [Mass/Vol] 1.3 mg/dL Low 1.8-2.4 [facility] Comment on above: Performed By: #### G FR, ADIFF, ANEU, BMP, MG, CBC #### [address] [address] RETO (AO)on 08-10-2025 Immature Retic Fraction 0.56 IRF High 0.20-0.46 [facility] Comment on above: Performed By: #### B MP, GFR #### [address] [address] Reticulocytes, Auto 3.1 % High 0.2-2.3 [facility] Comment on above: Performed By: #### B MP, GFR #### [address] [address] .Auto Diffon 08-09-2025 Basophil, Absolute 0.0 10 3/mcL Normal 0.0-0.3 [facility] Comment on above: Performed By: #### B MP, GFR #### [address] [address] Basophils/100 WBC (Bld) 0.5 % Normal 0.0-2.5 [facility] Comment on above: Performed By: #### B MP, GFR #### [address] [address] Eosinophil, Absolute 0.1 10 3/mcL Normal 0.0-0.7 [facility] Comment on above: Performed By: #### B MP, GFR #### [address] [address] Eosinophils/100 WBC (Bld) 1.4 % Normal 0.0-6.0 [facility] Comment on above: Performed By: #### B MP, GFR #### [address] [address] Lymphocyte, Absolute 0.8 10 3/mcL Low 0.9-4.3 [facility] Comment on above: Performed By: #### B MP, GFR #### [address] [address] Lymphocytes/100 WBC (Bld) 12.5 % Low 20.0-40.0 [facility] Comment on above: Performed By: #### B MP, GFR #### [address] [address] Monocyte, Absolute 0.5 10 3/mcL Normal 0.1-1.4 [facility] Comment on above: Performed By: #### B MP, GFR #### [address] [address] Monocytes/100 WBC (Bld) 7.8 % Normal 2.0-13.0 [facility] Comment on above: Performed By: #### B MP, GFR #### [address] [address] Neutrophils/100 WBC (Bld) 77.8 % High 50.0-75.0 [facility] Comment on above: Performed By: #### B MP, GFR #### [address] [address] Basophil, Absolute 0.0 10 3/mcL Normal 0.0-0.3 [facility] Comment on above: Performed By: #### G FR, ADIFF, ANEU, BMP, MG, CBC #### [address] [address] Basophils/100 WBC (Bld) 0.3 % Normal 0.0-2.5 [facility] Comment on above: Performed By: #### G FR, ADIFF, ANEU, BMP, MG, CBC #### [address] [address] Eosinophil, Absolute 0.1 10 3/mcL Normal 0.0-0.7 [facility] Comment on above: Performed By: #### G FR, ADIFF, ANEU, BMP, MG, CBC #### [address] [address] Eosinophils/100 WBC (Bld) 1.8 % Normal 0.0-6.0 [facility] Comment on above: Performed By: #### G FR, ADIFF, ANEU, BMP, MG, CBC #### [address] [address] Lymphocyte, Absolute 0.9 10 3/mcL Normal 0.9-4.3 [facility] Comment on above: Performed By: #### G FR, ADIFF, ANEU, BMP, MG, CBC #### [address] [address] Lymphocytes/100 WBC (Bld) 14.0 % Low 20.0-40.0 [facility] Comment on above: Performed By: #### G FR, ADIFF, ANEU, BMP, MG, CBC #### [address] [address] Monocyte, Absolute 0.6 10 3/mcL Normal 0.1-1.4 [facility] Comment on above: Performed By: #### G FR, ADIFF, ANEU, BMP, MG, CBC #### [address] [address] Monocytes/100 WBC (Bld) 8.6 % Normal 2.0-13.0 [facility] Comment on above: Performed By: #### G FR, ADIFF, ANEU, BMP, MG, CBC #### [address] [address] Neutrophils/100 WBC (Bld) 75.3 % High 50.0-75.0 [facility] Comment on above: Performed By: #### G FR, ADIFF, ANEU, BMP, MG, CBC #### [address] [address] .GFRon 08-09-2025 Estimated Glomerular Filtration Rate 25 ml/min/1.73sqm Normal [facility] Comment on above: Result Comment: Stages of Chronic Kidney Disease (CKD) Stage Description eGFR(ml/min/1.73 sq.m.) CKD 1 Normal kidney function or >=90 normal kindney function with possible kidney damage (ex. Proteinuria) CKD 2 Kidney damage with mild loss 60-89 of kidney function CKD 3a Mild to moderate loss of kidney 45-59 function CKD 3b Moderate to severe loss of 30-44 of kindey function CKD 4 Severe loss of kidney function 15-29 CKD 5 Kidney failure <15 Note: (go live 2024) the eGFR calculation was updated to the 2020 CKD-EPI creatinine equation without a race factor to calculate the eGFR results. Performed By: #### G FR, ADIFF, ANEU, BMP, MG, CBC #### [address] [address] .NEUABSon 08-09-2025 Neutrophil, Absolute 5.2 10 3/mcL Normal 2.3-8.1 [facility] Comment on above: Performed By: #### B MP, GFR #### [address] [address] Neutrophil, Absolute 4.9 10 3/mcL Normal 2.3-8.1 [facility] Comment on above: Performed By: #### G FR, ADIFF, ANEU, BMP, MG, CBC #### [address] [address] BMPon 08-09-2025 BUN/Creatinine Ratio 21 ratio Normal 7-27 [facility] Comment on above: Performed By: #### G FR, ADIFF, ANEU, BMP, MG, CBC #### [address] [address] Calcium [Mass/Vol] 8.3 mg/dL Low 8.4-10.2 [facility] Comment on above: Performed By: #### G FR, ADIFF, ANEU, BMP, MG, CBC #### [address] [address] Chloride [Moles/Vol] 98 mmol/L Normal 98-107 [facility] Comment on above: Performed By: #### G FR, ADIFF, ANEU, BMP, MG, CBC #### [place] [address] CO2 [Moles/Vol] 35 mmol/L High 23-31 [facility] Comment on above: Performed By: #### G FR, ADIFF, ANEU, BMP, MG, CBC #### [address] [address] Creatinine [Mass/Vol] 1.99 mg/dL High 0.51-0.95 [facility] Comment on above: Performed By: #### G FR, ADIFF, ANEU, BMP, MG, CBC #### [address] [address] Electrolyte Balance 3.0 mEq/L Low 4.0-15.0 [facility] Comment on above: Performed By: #### G FR, ADIFF, ANEU, BMP, MG, CBC #### [address] [address] Glucose [Mass/Vol] 46 mg/dL Critically abnormal 83-110 [facility] Comment on above: Performed By: #### G FR, ADIFF, ANEU, BMP, MG, CBC #### [address] [address] Potassium [Moles/Vol] 5.6 mmol/L High 3.5-5.1 [facility] Comment on above: Performed By: #### G FR, ADIFF, ANEU, BMP, MG, CBC #### [address] [address] Sodium [Moles/Vol] 136 mmol/L Normal 136-145 [facility] Comment on above: Performed By: #### G FR, ADIFF, ANEU, BMP, MG, CBC #### [address] [address] Urea nitrogen [Mass/Vol] 41 mg/dL High 7-18 [facility] Comment on above: Performed By: #### G FR, ADIFF, ANEU, BMP, MG, CBC #### [address] [address] CBCon 08-09-2025 Erythrocyte distribution width (RBC) [Ratio] 15.0 % Normal 11.5-15.5 [facility] Comment on above: Performed By: #### B MP, GFR #### [address] [address] Hematocrit (Bld) [Volume fraction] 24.4 % Low 34.0-46.0 [facility] Comment on above: Performed By: #### B MP, GFR #### [address] [address] Hgb 8.0 G/dL Low 12.0-16.0 [facility] Comment on above: Performed By: #### B MP, GFR #### [address] [address] MCH (RBC) [Entitic mass] 31.4 pg Normal 27.0-33.0 [facility] Comment on above: Performed By: #### B MP, GFR #### [address] [address] MCHC 32.8 G/dL Normal 32.0-36.0 [facility] Comment on above: Performed By: #### B MP, GFR #### [address] [address] MCV (RBC) [Entitic vol] 95.7 fL Normal 80.0-99.0 [facility] Comment on above: Performed By: #### B MP, GFR #### [address] [address] Platelet 164 10 3/mcL Normal 150-450 [facility] Comment on above: Performed By: #### B MP, GFR #### [address] [address] Platelet mean volume (Bld) [Entitic vol] 9.0 fL Normal 6.6-10.5 [facility] Comment on above: Performed By: #### B MP, GFR #### [place] [address] RBC 2.55 10 6/mcL Low 4.10-5.30 [facility] Comment on above: Performed By: #### B MP, GFR #### [place] [address] WBC 6.7 10 3/mcL Normal 4.5-10.8 [facility] Comment on above: Performed By: #### B MP, GFR #### [address] [address] Erythrocyte distribution width (RBC) [Ratio] 15.0 % Normal 11.5-15.5 [facility] Comment on above: Performed By: #### G FR, ADIFF, ANEU, BMP, MG, CBC #### [address] [address] Hematocrit (Bld) [Volume fraction] 22.8 % Low 34.0-46.0 [facility] Comment on above: Performed By: #### G FR, ADIFF, ANEU, BMP, MG, CBC #### [address] [address] Hgb 7.6 G/dL Low 12.0-16.0 [facility] Comment on above: Performed By: #### G FR, ADIFF, ANEU, BMP, MG, CBC #### [address] [address] MCH (RBC) [Entitic mass] 31.2 pg Normal 27.0-33.0 [facility] Comment on above: Performed By: #### G FR, ADIFF, ANEU, BMP, MG, CBC #### [address] [address] MCHC 33.2 G/dL Normal 32.0-36.0 [facility] Comment on above: Performed By: #### G FR, ADIFF, ANEU, BMP, MG, CBC #### [place] [address] MCV (RBC) [Entitic vol] 94.0 fL Normal 80.0-99.0 [facility] Comment on above: Performed By: #### G FR, ADIFF, ANEU, BMP, MG, CBC #### [place] [address] Platelet 145 10 3/mcL Low 150-450 [facility] Comment on above: Performed By: #### G FR, ADIFF, ANEU, BMP, MG, CBC #### [place] [address] Platelet mean volume (Bld) [Entitic vol] 8.4 fL Normal 6.6-10.5 [facility] Comment on above: Performed By: #### G FR, ADIFF, ANEU, BMP, MG, CBC #### [place] [address] RBC 2.42 10 6/mcL Low 4.10-5.30 [facility] Comment on above: Performed By: #### G FR, ADIFF, ANEU, BMP, MG, CBC #### [place] [address] WBC 6.5 10 3/mcL Normal 4.5-10.8 [facility] Comment on above: Performed By: #### G FR, ADIFF, ANEU, BMP, MG, CBC #### [place] [id number] [place]ain 08-09-2025 Potassium [Moles/Vol] 4.9 mmol/L Normal 3.5-5.1 [facility] Comment on above: Performed By: #### B MP, GFR #### [address] [place] [address] [place], [place] [address] Potassium [Moles/Vol] 5.9 mmol/L High 3.5-5.1 [facility] Comment on above: Performed By: #### G FR, ADIFF, ANEU, BMP, MG, CBC #### [place] [address] [place], [place] [address] LABORATORYOrdered By: Lalito Agosto on 08-09-2025 Blood Glucose Testing Reason Routine (08/09/25 9:40 AM) [facility] Work Phone: Glucose [Mass/Vol] 124 mg/dL High 82 - 115 mg/dL [facility] Work Phone: Blood Glucose Testing Reason Routine (08/09/25 9:25 AM) [facility] Work Phone: Glucose [Mass/Vol] 135 mg/dL High 82 - 115 mg/dL [facility] Work Phone: Blood Glucose Testing Reason Routine (08/09/25 9:10 AM) [facility] Work Phone: Glucose [Mass/Vol] 131 mg/dL High 82 - 115 mg/dL [facility] Work Phone: LABORATORYOrdered By: Zachery Sandoval on 08-09-2025 Blood Glucose Interventions Administered agent to increase blood sugar (08/09/25 5:45 AM) [facility] Work Phone: LABORATORYOrdered By: SYSTEM SYSTEM on 08-09-2025 Basophils (Bld) [#/Vol] 0.0 103/mcL Normal 0.0 - 0.3 10^3/mcL AO Workflow SS Basophils/100 WBC (Bld) 0.3 % Normal 0.0 - 2.5 % AO Workflow SS Calcium [Mass/Vol] 8.3 mg/dL Low 8.4 - 10. 2 mg/dL AO ADM SS Chloride [Moles/Vol] 98 mmol/L Normal 98 - 10 7 mmol/L AO ADM SS CO2 [Moles/Vol] 35 mmol/L High 23 - 31 mmol/L AO ADM SS Creatinine [Mass/Vol] 1.99 mg/dL High 0.51 - 0.95 mg/dL AO ADM SS Electrolyte Balance 3.0 mEq/L Low 4.0 - 15 .0 mEq/L AO ADM SS Eosinophil, Absolute 0.1 103/mcL Normal 0.0 - 0 .7 10^3/mcL AO Workflow SS Eosinophils/100 WBC (Bld) 1.8 % Normal 0.0 - 6.0 % AO Workflow SS Erythrocyte distribution width (RBC) [Ratio] 15.0 % Normal 11.5 - 15.5 % AO Workflow SS GLOMERULAR FILTRATION RATE/1.73 SQ M.PREDICTED:ARVRAT:PT:SE R/PLAS/BLD:QN:CREATININE -BASED FORMULA (CKD-EPI 2020) 25 ml/min/1.73sqm Invalid Interpretation Code AO Chemistry S Comment on above: Interpretive Data: Stages of Chronic Kidney Disease (CKD) Stage Description eGFR(ml/min/1.73 sq.m.) CKD 1 Normal kidney function or >=90 normal kindney function with possible kidney damage (ex. Proteinuria) CKD 2 Kidney damage with mild loss 60-89 of kidney function CKD 3a Mild to moderate loss of kidney 45-59 function CKD 3b Moderate to severe loss of 30-44 of kindey function CKD 4 Severe loss of kidney function 15-29 CKD 5 Kidney failure <15 Note: (go live 2024) the eGFR calculation was updated to the 2020 CKD-EPI creatinine equation without a race factor to calculate the eGFR results. Glucose [Mass/Vol] 46 mg/dL Invalid Interpretation Code 83 - 110 mg/dL AO ADM SS Hematocrit (Bld) [Volume fraction] 22.8 % Low 34.0 - 46.0 % AO Workflow SS Hemoglobin (Bld) [Mass/Vol] 7.6 G/dL Low 12.0 - 16.0 G/dL AO Workflow SS Lymphocytes (Bld) [#/Vol] 0.9 103/mcL Normal 0.9 - 4.3 10^3/mcL AO Workflow SS Lymphocytes/100 WBC (Bld) 14.0 % Low 20.0 - 40.0 % AO Workflow SS MCH (RBC) [Entitic mass] 31.2 pg Normal 27. 0 - 33.0 pg AO Workflow SS MCHC 33.2 G/dL Normal 32.0 - 36.0 G/dL AO Workflow SS MCV (RBC) [Entitic vol] 94.0 fL Normal 80.0 - 99.0 fL AO Workflow SS Monocytes (Bld) [#/Vol] 0.6 103/mcL Normal 0.1 - 1.4 10^3/mcL AO Workflow SS Monocytes/100 WBC (Bld) 8.6 % Normal 2.0 - 13.0 % AO Workflow SS Natriuretic peptide.B prohormone N-Terminal [Mass/Vol] 4587 pg/mL High 0 - 450 pg/mL AO ADM SS Comment on above: Interpretive Data: N T-proBNP results of less than 300 pg/mL effectively rules out acute congestive heart failure with 99% negative predictive value. Neutrophils (Bld) [#/Vol] 4.9 103/mcL Normal 2.3 - 8.1 10^3/mcL AO Workflow SS Neutrophils/100 WBC (Bld) 75.3 % High 50.0 - 75.0 % AO Workflow SS Platelet mean volume (Bld) [Entitic vol] 8.4 fL Normal 6.6 - 10.5 fL AO Workflow SS Platelets (Bld) [#/Vol] 145 103/mcL Low 150 - 450 10^3/mcL AO Workflow SS Potassium [Moles/Vol] 5.6 mmol/L High 3.5 - 5.1 mmol/L AO ADM SS RBC (Bld) [#/Vol] 2.42 106/mcL Low 4.10 - 5.3 0 10^6/mcL AO Workflow SS Sodium [Moles/Vol] 136 mmol/L Normal 136 - 145 mmol/L AO ADM SS Urea nitrogen [Mass/Vol] 41 mg/dL High 7 - 18 mg/dL AO ADM SS Urea nitrogen/Creatinine [Mass ratio] 21 ratio Normal 7 - 27 ratio AO ADM SS WBC (Bld) [#/Vol] 6.5 103/mcL Normal 4.5 - 10.8 10^3/mcL AO Workflow SS No Panel InformationOrdered By: Doris Agosto on 08-09-2025 Blood Glucose Interventions Administered agent to increase blood sugar, Notify physician (08/09/25 8:27 AM) [facility] Work Phone: PBNPon 08-09-2025 Natriuretic peptide B (Bld) [Mass/Vol] 4587 pg/mL High 0-450 [facility] Comment on above: Result Comment: NT-p roBNP results of less than 300 pg/mL effectively rules out acute congestive heart failure with 99% negative predictive value. Performed By: #### G FR, ADIFF, ANEU, BMP, MG, CBC #### [facility] [address], [place] [address] XR CHEST 2 VIEWSon XR CHEST 2 VIEWS ORIGINAL HISTORY: CHF COMPARISON: Previous day FINDINGS: The lateral views are nondiagnostic. There is faint hazy opacification in the lower lung; this may be due in part to habitus. Pulmonary vasculature is normal to mildly congested. IMPRESSION: Mild vascular congestion. Interpreted by: Kavya Koehler MD Preliminary Report By: Kavya Koehler MD Electronically signed By Kavya Koehler MD Dictated Date: 08/09/2025 9:13:39 AM Prelim Date: 08/09/2025 9:16:33 AM Sign Date: 08/09/2025 9:16:33 AM Ordering Provider: SHUKRI DAVID RP [facility] .GFRon 08-08-2025 Estimated Glomerular Filtration Rate 28 ml/min/1.73sqm Normal [facility] Comment on above: Result Comment: Stages of Chronic Kidney Disease (CKD) Stage Description eGFR(ml/min/1.73 sq.m.) CKD 1 Normal kidney function or >=90 normal kindney function with possible kidney damage (ex. Proteinuria) CKD 2 Kidney damage with mild loss 60-89 of kidney function CKD 3a Mild to moderate loss of kidney 45-59 function CKD 3b Moderate to severe loss of 30-44 of kindey function CKD 4 Severe loss of kidney function 15-29 CKD 5 Kidney failure <15 Note: (go live 2024) the eGFR calculation was updated to the 2020 CKD-EPI creatinine equation without a race factor to calculate the eGFR results. Performed By: #### B MP, GFR #### [address] [address] A1Con 08-08-2025 Glucose [Mass/Vol] 154 mg/dL Normal [facility] Comment on above: Result Comment: Diane mated Average Glucose calculated by equation ((28.7xA1C)-46.7) Estimated average glucose (eAG) is a calculated value from Hemoglobin A1C and is customer relations representative of the average blood glucose level in the last 2-3 month period. Normal range: less than 114 mg/dL Performed By: #### G FR, ADIFF, ANEU, BMP, MG, CBC #### [address] [address] HbA1c (Bld) [Mass fraction] 7.0 % High 4.3-6.4 [facility] Comment on above: Performed By: #### G FR, ADIFF, ANEU, BMP, MG, CBC #### [address] [address] BMPon 08-08-2025 BUN/Creatinine Ratio 22 ratio Normal 05-08 [facility] Comment on above: Performed By: #### B MP, GFR #### [address] [address] Calcium [Mass/Vol] 8.6 mg/dL Normal 8.4-10.2 [facility] Comment on above: Performed By: #### B MP, GFR #### [address] [address] Chloride [Moles/Vol] 101 mmol/L Normal 98-107 [facility] Comment on above: Performed By: #### B MP, GFR #### [address] [address] CO2 [Moles/Vol] 34 mmol/L High 23-31 [facility] Comment on above: Performed By: #### B MP, GFR #### [address] [address] Creatinine [Mass/Vol] 1.79 mg/dL High 0.51-0.95 [facility] Comment on above: Performed By: #### B MP, GFR #### [address] [address] Electrolyte Balance 2.0 mEq/L Low 4.0-15.0 [facility] Comment on above: Performed By: #### B MP, GFR #### [address] [address] Glucose [Mass/Vol] 89 mg/dL Normal 83-110 [facility] Comment on above: Performed By: #### B MP, GFR #### [address] [address] Potassium [Moles/Vol] 6.0 mmol/L High 3.5-5.1 [facility] Comment on above: Performed By: #### B MP, GFR #### [address] [address] Sodium [Moles/Vol] 137 mmol/L Normal 136-145 [facility] Comment on above: Performed By: #### B MP, GFR #### [address] [address] Urea nitrogen [Mass/Vol] 40 mg/dL High 7-18 [facility] Comment on above: Performed By: #### B MP, GFR #### [address] [address] Basic Metabolic Profile (BMP )on 08-08-2025 BUN Normal -19 [facility] Comment on above: Result Comment: Canc elled via OM: Order cancelled - Patient discharged Performed By: #### L 500.2500 ####[facility] [address] [place], [place], [address] BUN/CRE Normal - [facility] Comment on above: Result Comment: Canc elled via OM: Order cancelled - Patient discharged Performed By: #### L 500.2500 ####[facility] [address] [place], [place], [id number] Calcium Normal 7.6-11.0 [facility] Comment on above: Result Comment: Canc elled via OM: Order cancelled - Patient discharged Performed By: #### L 500.2500 ####[facility] [address] [place], [address] CL Normal 98-108 [facility] Comment on above: Result Comment: Canc elled via OM: Order cancelled - Patient discharged Performed By: #### L 500.2500 ####[facility] [address] [place], [address] CO2 Normal 21.0-32.0 [facility] Comment on above: Result Comment: Canc elled via OM: Order cancelled - Patient discharged Performed By: #### L 500.2500 ####[facility] [address] [place], [address] CREAT,SERUM Normal 0.70-1.20 [facility] Comment on above: Result Comment: Canc elled via OM: Order cancelled - Patient discharged Performed By: #### L 500.2500 ####[facility] [address] [place], [address] eGFR Normal >60 [facility] Comment on above: Result Comment: Canc elled via OM: Order cancelled - Patient discharged Performed By: #### L 500.2500 ####[facility] [address] [place], [address] GAP Normal 5-15 [facility] Comment on above: Result Comment: Canc elled via OM: Order cancelled - Patient discharged Performed By: #### L 500.2500 ####[facility] [address] [place], [address] GLU Normal 70-99 [facility] Comment on above: Result Comment: Canc elled via OM: Order cancelled - Patient discharged Performed By: #### L 500.2500 ####[facility] [address] [place], [address] Potassium Normal 3.3-5.1 [facility] Comment on above: Result Comment: Canc elled via OM: Order cancelled - Patient discharged Performed By: #### L 500.2500 ####[facility] [address] [place], [address] Basic Metabolic Profile (BMP) Normal 133-145 [facility] Comment on above: Result Comment: Canc elled via OM: Order cancelled - Patient discharged Performed By: #### L 500.2500 ####[facility] [address] [place], [address] CBC-Complete Blood Cnt No Di ffon 08-08-2025 HCT Normal 37-47 [facility] Comment on above: Result Comment: Canc elled via OM: Order cancelled - Patient discharged Performed By: #### L 100.0500 ####[facility] [address] [place], [address] HGB Normal 12.0-15.0 [facility] Comment on above: Result Comment: Canc elled via OM: Order cancelled - Patient discharged Performed By: #### L 100.0500 ####[facility] [address] [place], [address] MCH Normal 27.0-32.0 [facility] Comment on above: Result Comment: Canc elled via OM: Order cancelled - Patient discharged Performed By: #### L 100.0500 ####[facility] [address] [place], [address] MCHC Normal 32-36 [facility] Comment on above: Result Comment: Canc elled via OM: Order cancelled - Patient discharged Performed By: #### L 100.0500 ####[facility] [address] [place], [address] MCV Normal 81-99 [facility] Comment on above: Result Comment: Canc elled via OM: Order cancelled - Patient discharged Performed By: #### L 100.0500 ####[facility] [address] [place], [address] PLT Normal 150-450 [facility] Comment on above: Result Comment: Canc elled via OM: Order cancelled - Patient discharged Performed By: #### L 100.0500 ####[facility] [address] [place], [address] RBC Normal 4.2-5.4 [facility] Comment on above: Result Comment: Canc elled via OM: Order cancelled - Patient discharged Performed By: #### L 100.0500 ####[facility] [address] [place], [address] RDW CV Normal 11.6-14.6 [facility] Comment on above: Result Comment: Canc elled via OM: Order cancelled - Patient discharged Performed By: #### L 100.0500 ####[facility] [address] [place], [address] RDW SD Normal 35.1-43.9 [facility] Comment on above: Result Comment: Canc elled via OM: Order cancelled - Patient discharged Performed By: #### L 100.0500 ####[facility] [address] [place], [address] WBC Normal 4.4-11.0 [facility] Comment on above: Result Comment: Canc elled via OM: Order cancelled - Patient discharged Performed By: #### L 100.0500 ####[facility] [address] [place], [address] KOrdered By: SYSTEM SYSTEM o n 08-08-2025 Potassium [Moles/Vol] 5.7 mmol/L High 3.5-5.1 AO ADM SS Comment on above: Performed By: #### B MP, GFR #### [facility] [address] [address] LABORATORYOrdered By: Zachery Sandoval on 08-08-2025 Blood Glucose Interventions Administered agent to increase blood sugar (08/08/25 10:57 PM) [facility] Work Phone: LABORATORYOrdered By: SYSTEM SYSTEM on 08-08-2025 Basophils (Bld) [#/Vol] 0.0 103/mcL Normal 0.0 - 0.3 10^3/mcL AO Workflow SS Basophils/100 WBC (Bld) 0.5 % Normal 0.0 - 2.5 % AO Workflow SS Calcium [Mass/Vol] 8.6 mg/dL Normal 8.4 - 10. 2 mg/dL AO ADM SS Chloride [Moles/Vol] 101 mmol/L Normal 98 - 10 7 mmol/L AO ADM SS CO2 [Moles/Vol] 34 mmol/L High 23 - 31 mmol/L AO ADM SS Creatinine [Mass/Vol] 1.79 mg/dL High 0.51 - 0.95 mg/dL AO ADM SS Electrolyte Balance 2.0 mEq/L Low 4.0 - 15 .0 mEq/L AO ADM SS Eosinophil, Absolute 0.1 103/mcL Normal 0.0 - 0 .7 10^3/mcL AO Workflow SS Eosinophils/100 WBC (Bld) 1.4 % Normal 0.0 - 6.0 % AO Workflow SS Erythrocyte distribution width (RBC) [Ratio] 15.0 % Normal 11.5 - 15.5 % AO Workflow SS GLOMERULAR FILTRATION RATE/1.73 SQ M.PREDICTED:ARVRAT:PT:SE R/PLAS/BLD:QN:CREATININE -BASED FORMULA (CKD-EPI 2020) 28 ml/min/1.73sqm Invalid Interpretation Code AO Chemistry S Comment on above: Interpretive Data: Stages of Chronic Kidney Disease (CKD) Stage Description eGFR(ml/min/1.73 sq.m.) CKD 1 Normal kidney function or >=90 normal kindney function with possible kidney damage (ex. Proteinuria) CKD 2 Kidney damage with mild loss 60-89 of kidney function CKD 3a Mild to moderate loss of kidney 45-59 function CKD 3b Moderate to severe loss of 30-44 of kindey function CKD 4 Severe loss of kidney function 15-29 CKD 5 Kidney failure <15 Note: (go live 2024) the eGFR calculation was updated to the 2020 CKD-EPI creatinine equation without a race factor to calculate the eGFR results. Glucose [Mass/Vol] 89 mg/dL Normal 83 - 110 mg/dL AO ADM SS Hematocrit (Bld) [Volume fraction] 24.4 % Low 34.0 - 46.0 % AO Workflow SS Hemoglobin (Bld) [Mass/Vol] 8.0 G/dL Low 12.0 - 16.0 G/dL AO Workflow SS Lymphocytes (Bld) [#/Vol] 0.8 103/mcL Low 0.9 - 4.3 10^3/mcL AO Workflow SS Lymphocytes/100 WBC (Bld) 12.5 % Low 20.0 - 40.0 % AO Workflow SS MCH (RBC) [Entitic mass] 31.4 pg Normal 27. 0 - 33.0 pg AO Workflow SS MCHC 32.8 G/dL Normal 32.0 - 36.0 G/dL AO Workflow SS MCV (RBC) [Entitic vol] 95.7 fL Normal 80.0 - 99.0 fL AO Workflow SS Monocytes (Bld) [#/Vol] 0.5 103/mcL Normal 0.1 - 1.4 10^3/mcL AO Workflow SS Monocytes/100 WBC (Bld) 7.8 % Normal 2.0 - 13.0 % AO Workflow SS Natriuretic peptide.B prohormone N-Terminal [Mass/Vol] 4604 pg/mL High 0 - 450 pg/mL AO ADM SS Comment on above: Interpretive Data: N T-proBNP results of less than 300 pg/mL effectively rules out acute congestive heart failure with 99% negative predictive value. Neutrophils (Bld) [#/Vol] 5.2 103/mcL Normal 2.3 - 8.1 10^3/mcL AO Workflow SS Neutrophils/100 WBC (Bld) 77.8 % High 50.0 - 75.0 % AO Workflow SS Platelet mean volume (Bld) [Entitic vol] 9.0 fL Normal 6.6 - 10.5 fL AO Workflow SS Platelets (Bld) [#/Vol] 164 103/mcL Normal 150 - 450 10^3/mcL AO Workflow SS Potassium [Moles/Vol] 6.0 mmol/L High 3.5 - 5.1 mmol/L AO ADM SS RBC (Bld) [#/Vol] 2.55 106/mcL Low 4.10 - 5.3 0 10^6/mcL AO Workflow SS Sodium [Moles/Vol] 137 mmol/L Normal 136 - 145 mmol/L AO ADM SS Urea nitrogen [Mass/Vol] 40 mg/dL High 7 - 18 mg/dL AO ADM SS Urea nitrogen/Creatinine [Mass ratio] 22 ratio Normal 7 - 27 ratio AO ADM SS WBC (Bld) [#/Vol] 6.7 103/mcL Normal 4.5 - 10.8 10^3/mcL AO Workflow SS Glucose [Mass/Vol] 154 mg/dL Invalid Interpretation Code AO Chemistry S Comment on above: Interpretive Data: E stimated average glucose (eAG) is a calculated value from Hemoglobin A1C and is customer relations representative of the average blood glucose level in the last 2-3 month period. Normal range: less than 114 mg/dL HbA1c (Bld) [Mass fraction] 7.0 % High 4.3 - 6.4 % AO ADM SS PBNPon 08-08-2025 Natriuretic peptide B (Bld) [Mass/Vol] 4604 pg/mL High 0-450 [facility] Comment on above: Result Comment: NT-p roBNP results of less than 300 pg/mL effectively rules out acute congestive heart failure with 99% negative predictive value. Performed By: #### B MP, GFR #### [facility] [address] [place] [id number] XR CHEST 1 VIEWon 08-08-2025 XR CHEST 1 VIEW ORIGINAL EXAMINATION: ONE XRAY VIEW OF THE CHEST08/08/2025 11:37 am Portable upright COMPARISON: 10/07/2017 HISTORY: ORDERING SYSTEM PROVIDED HISTORY: Reason for Exam: Abnormal breath sounds, FINDINGS: Heart appears enlarged probably exaggerated by projection also. Mild calcification of aorta. Interstitial and vascular prominence. No consolidation or significant pleural effusion. Left basilar density is probably summation artifact, small effusion not excluded. IMPRESSION: Interstitial edema pattern. Question small left pleural effusion. Interpreted by: Efrem Rodriguez MD Preliminary Report By: Efrem Rodriguez MD Electronically signed By Efrem Rodriguez MD Dictated Date: 08/08/2025 1:13:27 PM Prelim Date: 08/08/2025 1:14:13 PM Sign Date: 08/08/2025 1:14:13 PM Ordering Provider: SHUKRI DAVID RP Normal [facility] Basic Metabolic Profile (BMP )on 08-06-2025 BUN Normal 4-19 [facility] Comment on above: Result Comment: Canc elled via OM: Order cancelled - Patient discharged Performed By: #### L 500.2500 ####[facility] [address] [place], [address] Result Comment: Canc elled via OM: MD Ordered Performed By: #### L 500.2500, L100.0500 ####[facility] [address] [place], [address] BUN/CRE Normal 10-20 [facility] Comment on above: Result Comment: Canc elled via OM: Order cancelled - Patient discharged Performed By: #### L 500.2500 ####[facility] [address] [place], [address] Result Comment: Canc elled via OM: MD Ordered Performed By: #### L 500.2500, L100.0500 ####[facility] [address] [place], [address] Calcium Normal 7.6-11.0 [facility] Comment on above: Result Comment: Canc elled via OM: Order cancelled - Patient discharged Performed By: #### L 500.2500 ####[facility] [address] [place], [address] Result Comment: Canc elled via OM: MD Ordered Performed By: #### L 500.2500, L100.0500 ####[facility] [address] [place], [address] CL Normal 98-108 [facility] Comment on above: Result Comment: Canc elled via OM: Order cancelled - Patient discharged Performed By: #### L 500.2500 ####[facility] [address] [place], [address] Result Comment: Canc elled via OM: MD Ordered Performed By: #### L 500.2500, L100.0500 ####[facility] [address] [place], [address] CO2 Normal 21.0-32.0 [facility] Comment on above: Result Comment: Canc elled via OM: Order cancelled - Patient discharged Performed By: #### L 500.2500 ####[facility] [address] [place], [address] Result Comment: Canc elled via OM: MD Ordered Performed By: #### L 500.2500, L100.0500 ####[facility] [address] [place], [address] CREAT,SERUM Normal 0.70-1.20 [facility] Comment on above: Result Comment: Canc elled via OM: Order cancelled - Patient discharged Performed By: #### L 500.2500 ####[facility] [address] [place], [address] Result Comment: Canc elled via OM: MD Ordered Performed By: #### L 500.2500, L100.0500 ####[facility] [address] [place], [address] eGFR Normal >60 [facility] Comment on above: Result Comment: Canc elled via OM: Order cancelled - Patient discharged Performed By: #### L 500.2500 ####[facility] [address] [place], [address] Result Comment: Canc elled via OM: MD Ordered Performed By: #### L 500.2500, L100.0500 ####[facility] [address] [place], [address] GAP Normal 5-15 [facility] Comment on above: Result Comment: Canc elled via OM: Order cancelled - Patient discharged Performed By: #### L 500.2500 ####[facility] [address] [place], [address] Result Comment: Canc elled via OM: MD Ordered Performed By: #### L 500.2500, L100.0500 ####[facility] [address] [place], [address] GLU Normal 70-99 [facility] Comment on above: Result Comment: Canc elled via OM: Order cancelled - Patient discharged Performed By: #### L 500.2500 ####[facility] [address] [place], [address] Result Comment: Canc elled via OM: MD Ordered Performed By: #### L 500.2500, L100.0500 ####[facility] [address] [place], [address] Potassium Normal 3.3-5.1 [facility] Comment on above: Result Comment: Canc elled via OM: Order cancelled - Patient discharged Performed By: #### L 500.2500 ####[facility] [address] [place], [address] Result Comment: Canc elled via OM: MD Ordered Performed By: #### L 500.2500, L100.0500 ####[facility] [address] [place], [address] Basic Metabolic Profile (BMP) Normal 133-145 [facility] Comment on above: Result Comment: Canc elled via OM: Order cancelled - Patient discharged Performed By: #### L 500.2500 ####[facility] [address] [place], [address] Result Comment: Canc elled via OM: MD Ordered Performed By: #### L 500.2500, L100.0500 ####[facility] [address] [place], [address] CBC-Complete Blood Cnt No Di ffon 08-06-2025 HCT Normal 37-47 [facility] Comment on above: Result Comment: Canc elled via OM: Order cancelled - Patient discharged Performed By: #### L 100.0500 ####[facility] [address] [place], [address] HGB Normal 12.0-15.0 [facility] Comment on above: Result Comment: Canc elled via OM: Order cancelled - Patient discharged Performed By: #### L 100.0500 ####[facility] [address] [place], [address] MCH Normal 27.0-32.0 [facility] Comment on above: Result Comment: Canc elled via OM: Order cancelled - Patient discharged Performed By: #### L 100.0500 ####[facility] [address] [place], [address] MCHC Normal 32-36 [facility] Comment on above: Result Comment: Canc elled via OM: Order cancelled - Patient discharged Performed By: #### L 100.0500 ####[facility] [address] [place], [address] MCV Normal 81-99 [facility] Comment on above: Result Comment: Canc elled via OM: Order cancelled - Patient discharged Performed By: #### L 100.0500 ####[facility] [address] [place], [address] PLT Normal 150-450 [facility] Comment on above: Result Comment: Canc elled via OM: Order cancelled - Patient discharged Performed By: #### L 100.0500 ####[facility] [address] [place], [address] RBC Normal 4.2-5.4 [facility] Comment on above: Result Comment: Canc elled via OM: Order cancelled - Patient discharged Performed By: #### L 100.0500 ####[facility] [address] [place], [address] RDW CV Normal 11.6-14.6 [facility] Comment on above: Result Comment: Canc elled via OM: Order cancelled - Patient discharged Performed By: #### L 100.0500 ####[facility] [address] [place], [address] RDW SD Normal 35.1-43.9 [facility] Comment on above: Result Comment: Canc elled via OM: Order cancelled - Patient discharged Performed By: #### L 100.0500 ####[facility] [address] [place], [address] WBC Normal 4.4-11.0 [facility] Comment on above: Result Comment: Canc elled via OM: Order cancelled - Patient discharged Performed By: #### L 100.0500 ####[facility] [address] [place], [address] HCT Normal 37-47 [facility] Comment on above: Result Comment: Canc elled via OM: MD Ordered Performed By: #### L 500.2500, L100.0500 ####[facility] [address] [place], [address] HGB Normal 12.0-15.0 [facility] Comment on above: Result Comment: Canc elled via OM: MD Ordered Performed By: #### L 500.2500, L100.0500 ####[facility] [address] [place], [address] MCH Normal 27.0-32.0 [facility] Comment on above: Result Comment: Canc elled via OM: MD Ordered Performed By: #### L 500.2500, L100.0500 ####[facility] [address] [place], [address] MCHC Normal 32-36 [facility] Comment on above: Result Comment: Canc elled via OM: MD Ordered Performed By: #### L 500.2500, L100.0500 ####[facility] [address] [place], [address] MCV Normal 81-99 [facility] Comment on above: Result Comment: Canc elled via OM: MD Ordered Performed By: #### L 500.2500, L100.0500 ####[facility] [address] [place], [address] PLT Normal 150-450 [facility] Comment on above: Result Comment: Canc elled via OM: MD Ordered Performed By: #### L 500.2500, L100.0500 ####[facility] [facility] [address] [place], [address] RBC Normal 4.2-5.4 [facility] Comment on above: Result Comment: Canc elled via OM: MD Ordered Performed By: #### L 500.2500, L100.0500 ####[facility] [address] [place], [address] RDW CV Normal 11.6-14.6 [facility] Comment on above: Result Comment: Canc elled via OM: MD Ordered Performed By: #### L 500.2500, L100.0500 ####[facility] [address] [place], [address] RDW SD Normal 35.1-43.9 [facility] Comment on above: Result Comment: Canc elled via OM: MD Ordered Performed By: #### L 500.2500, L100.0500 ####[facility] [address] [place], [address] WBC Normal 4.4-11.0 [facility] Comment on above: Result Comment: Canc elled via OM: MD Ordered Performed By: #### L 500.2500, L100.0500 ####[facility] [address] [place], [address] Anion gap in Serum or Plasma Ordered By: Antoni Argueta on 08-05-2025 Anion gap [Moles/Vol] 7 mmol/L 02-24 [facility] BUN/creatinine ratioOrdered By: Antoni Argueta on 08-05-2025 Urea nitrogen/Creatinine [Mass ratio] 17.4 mg/mg 08-01 [facility] Basic Metabolic Profile (BMP )on 08-05-2025 BUN/CRE 17.4 RATIO Normal 08-01 [facility] Comment on above: Performed By: #### L 500.2500, L100.0500 ####[facility] [address] [place], [address] Calcium [Mass/Vol] 8.2 mg/dL Normal 7.6-11.0 [facility] Comment on above: Performed By: #### L 500.2500, L100.0500 ####[facility] [address] [place], [address] Chloride [Moles/Vol] 99 mmol/L Normal 98-[address] [facility] Comment on above: Performed By: #### L 500.2500, L100.0500 ####[facility] [address] [place], [address] CO2 [Moles/Vol] 27.7 mmol/L Normal 21.0-32.0 [facility] Comment on above: Performed By: #### L 500.2500, L100.0500 ####[facility] [address] [place], [address] Creatinine [Mass/Vol] 1.60 mg/dL High 0.70-1.20 [facility] Comment on above: Performed By: #### L 500.2500, L100.0500 ####[facility] [address] [place], [address] ECRCL 31.72 ml/min Low 50-250 [facility] Comment on above: Performed By: #### L 500.2500, L100.0500 ####[facility] [address] [place], [address] GAP 7 Normal 5-15 [facility] Comment on above: Performed By: #### L 500.2500, L100.0500 ####[facility] [address] [place], [address] GFR/1.73 sq M.predicted among non-blacks MDRD (S/P/Bld) [Vol rate/Area] 33 mL/min/{1.73_m2} Low >60 [facility] Comment on above: Result Comment: mL/m in/1.73m2 CKD-EPI Creatinine Equation (2020) Performed By: #### L 500.2500, L100.0500 ####[facility] [address] [place], [address] Glucose [Mass/Vol] 270 mg/dL High 70-99 [facility] Comment on above: Performed By: #### L 500.2500, L100.0500 ####[facility] [address] [place], [address] Potassium [Moles/Vol] 5.5 mmol/L High 3.3-5.1 [facility] Comment on above: Performed By: #### L 500.2500, L100.0500 ####[facility] [address] [place], [address] Sodium [Moles/Vol] 134 mmol/L Normal 133-145 [facility] Comment on above: Performed By: #### L 500.2500, L100.0500 ####[facility] [address] [place], [address] Urea nitrogen [Mass/Vol] 28 mg/dL High 4-19 [facility] Comment on above: Performed By: #### L 500.2500, L100.0500 ####[facility] [address] [place], [address] BUN Normal 4-19 [facility] Comment on above: Result Comment: Canc elled via OM: MD Ordered Performed By: #### L 100.0500, L500.2500 ####[facility] [address] [place], [address] BUN/CRE Normal 10-20 [facility] Comment on above: Result Comment: Canc elled via OM: MD Ordered Performed By: #### L 100.0500, L500.2500 ####[facility] [address] [place], [address] Calcium Normal 7.6-11.0 [facility] Comment on above: Result Comment: Canc elled via OM: MD Ordered Performed By: #### L 100.0500, L500.2500 ####[facility] [address] [place], [address] CL Normal 98-108 [facility] Comment on above: Result Comment: Canc elled via OM: MD Ordered Performed By: #### L 100.0500, L500.2500 ####[facility] [address] [place], [address] CO2 Normal 21.0-32.0 [facility] Comment on above: Result Comment: Canc elled via OM: MD Ordered Performed By: #### L 100.0500, L500.2500 ####[facility] [address] [place], [address] CREAT,SERUM Normal 0.70-1.20 [facility] Comment on above: Result Comment: Canc elled via OM: MD Ordered Performed By: #### L 100.0500, L500.2500 ####[facility] [address] [place], [address] eGFR Normal >60 [facility] Comment on above: Result Comment: Canc elled via OM: MD Ordered Performed By: #### L 100.0500, L500.2500 ####[facility] [address] [place], [address] GAP Normal 5-15 [facility] Comment on above: Result Comment: Canc elled via OM: MD Ordered Performed By: #### L 100.0500, L500.2500 ####[facility] [address] [place], [address] GLU Normal 70-99 [facility] Comment on above: Result Comment: Canc elled via OM: MD Ordered Performed By: #### L 100.0500, L500.2500 ####[facility] [address] [place], [address] Potassium Normal 3.3-5.1 [facility] Comment on above: Result Comment: Canc elled via OM: MD Ordered Performed By: #### L 100.0500, L500.2500 ####[facility] [address] [place], [address] Basic Metabolic Profile (BMP) Normal 133-145 [facility] Comment on above: Result Comment: Canc elled via OM: MD Ordered Performed By: #### L 100.0500, L500.2500 ####[facility] [address] [place], [address] Bedside Glucoseon 08-05-2025 FINGERSTICK GLU 325 mg/dL High 74-106 [facility] Comment on above: Result Comment: RANDAL GEMENT OF PATIENT CARE PER NURSING PROTOCOL Performed By: #### L 501.080 ####[facility] [address] [place], [address] FINGERSTICK GLU 199 mg/dL High 74-106 [facility] Comment on above: Result Comment: RANDAL GEMENT OF PATIENT CARE PER NURSING PROTOCOL Performed By: #### L 501.080 ####[facility] [address] [place], [address] FINGERSTICK GLU 349 mg/dL High 74-106 [facility] Comment on above: Result Comment: RANDAL CARTER OF PATIENT CARE PER NURSING PROTOCOL Performed By: #### L 501.080 ####[facility] [address] [place], [address] CBC-Complete Blood Cnt No Di ffon 08-05-2025 Erythrocyte distribution width (RBC) [Ratio] 14.3 % Normal 11.6-14.6 [facility] Comment on above: Performed By: #### L 500.2500, L100.0500 ####[facility] [address] [place], [address] Hematocrit (Bld) [Volume fraction] 26.2 % Low 37-47 [facility] Comment on above: Performed By: #### L 500.2500, L100.0500 ####[facility] [address] [place], [address] Hemoglobin (Bld) [Mass/Vol] 8.1 g/dL Low 12.0-15.0 [facility] Comment on above: Performed By: #### L 500.2500, L100.0500 ####[facility] [address] [place], [address] MCH (RBC) [Entitic mass] 30.3 pg Normal 27.0-32.0 [facility] Comment on above: Performed By: #### L 500.2500, L100.0500 ####[facility] [address] [place], [address] MCHC (RBC) [Mass/Vol] 30.9 g/dL Low 32-36 [facility] Comment on above: Performed By: #### L 500.2500, L100.0500 ####[facility] [address] [place], [address] MCV (RBC) [Entitic vol] 98.1 fL Normal 81-99 [facility] Comment on above: Performed By: #### L 500.2500, L100.0500 ####[facility] [address] [place], [address] Platelet mean volume (Bld) [Entitic vol] 10.2 fL Normal 6.2-12.0 [facility] Comment on above: Performed By: #### L 500.2500, L100.0500 ####[facility] [address] [place], [address] Platelets (Bld) [#/Vol] 211 10*3/uL Normal 150-450 [facility] Comment on above: Performed By: #### L 500.2500, L100.0500 ####[facility] [address] [place], [address] RBC (Bld) [#/Vol] 2.67 10*6/uL Low 4.2-5.4 [facility] Comment on above: Performed By: #### L 500.2500, L100.0500 ####[facility] [address] [place], [address] RDW SD 50.6 fl High 35.1-43.9 [facility] Comment on above: Performed By: #### L 500.2500, L100.0500 ####[facility] [address] [place], [address] WBC (Bld) [#/Vol] 8.8 10*3/uL Normal 4.4-11.0 [facility] Comment on above: Performed By: #### L 500.2500, L100.0500 ####[facility] [address] [place], [address] HCT Normal 37-47 [facility] Comment on above: Result Comment: Estefani falcon via OM: Ordered Performed By: #### L 100.0500, L500.2500 ####[facility] [address] [place], [address] HGB Normal 12.0-15.0 [facility] Comment on above: Result Comment: Canc elled via OM: MD Ordered Performed By: #### L 100.0500, L500.2500 ####[facility] [address] [place], [address] MCH Normal 27.0-32.0 [facility] Comment on above: Result Comment: Canc elled via OM: MD Ordered Performed By: #### L 100.0500, L500.2500 ####[facility] [address] [place], [address] MCHC Normal 32-36 [facility] Comment on above: Result Comment: Canc elled via OM: MD Ordered Performed By: #### L 100.0500, L500.2500 ####[facility] [address] [place], [address] MCV Normal 81-99 [facility] Comment on above: Result Comment: Canc elled via OM: MD Ordered Performed By: #### L 100.0500, L500.2500 ####[facility] [address] [place], [address] PLT Normal 150-450 [facility] Comment on above: Result Comment: Canc elled via OM: MD Ordered Performed By: #### L 100.0500, L500.2500 ####[facility] [address] [place], [address] RBC Normal 4.2-5.4 [facility] Comment on above: Result Comment: Canc elled via OM: MD Ordered Performed By: #### L 100.0500, L500.2500 ####[facility] [address] [place], [address] RDW CV Normal 11.6-14.6 [facility] Comment on above: Result Comment: Canc elled via OM: MD Ordered Performed By: #### L 100.0500, L500.2500 ####[facility] [address] [place], [address] RDW SD Normal 35.1-43.9 [facility] Comment on above: Result Comment: Canc elled via OM: MD Ordered Performed By: #### L 100.0500, L500.2500 ####[facility] [address] [place], [address] WBC Normal 4.4-11.0 [facility] Comment on above: Result Comment: Canc elled via OM: MD Ordered Performed By: #### L 100.0500, L500.2500 ####[facility] [address] [place], [address] Carbon dioxide, total [Moles /volume] in Central venous bloodOrdered By: Antoni Argueta on 08-05-2025 CO2 [Moles/Vol] 27.7 mmol/L 21.0-32.0 [facility] Chloride assayOrdered By: Agus Argueta on 08-05-2025 Chloride [Moles/Vol] 99 mmol/L 98-[address] [facility] Erythrocyte distribution wid th ratioOrdered By: Antoni Argueta on 08-05-2025 Erythrocyte distribution width (RBC) [Ratio] 14.3 % 11.6-14.6 [facility] Erythrocyte distribution wid th standard deviationOrdered By: Antoni Argueta on 08-05-2025 Erythrocyte distribution width (RBC) [Ratio] 50.6 fl High 35.1-43.9 [facility] Glomerular filtration rate ( GFR) estimation/1.73 sq m using serum, plasma, or whole bOrdered By: Antoni Argueta on 08-05-2025 GFR/1.73 sq M.predicted among non-blacks MDRD (S/P/Bld) [Vol rate/Area] 33 mL/min/{1.73_m2} Low >60 [facility] deOrdered By: Antoni Argueta on 08-05-2025 Glucose [Mass/Vol] 325 mg/dL High 74-106 [facility] Hematocrit Auto (Bld) [Volum e fraction]Ordered By: Antoni Argueta on 08-05-2025 Hematocrit (Bld) [Volume fraction] 26.2 % Low 37-47 [facility] Hemoglobin measurementOrdere d By: Antoni Argueta on 08-05-2025 Hemoglobin (Bld) [Mass/Vol] 8.1 g/dL Low 12.0-15.0 [facility] MCV (mean corpuscular volume ) determinationOrdered By: Antoni Argueta on 08-05-2025 MCV (RBC) [Entitic vol] 98.1 fL 81-99 [facility] Mean corpuscular hemoglobin (MCH) determinationOrdered By: Antoni Argueta on 08-05-2025 MCH (RBC) [Entitic mass] 30.3 pg 27.0-32.0 [facility] Platelet countOrdered By: Agus Argueta on 08-05-2025 Platelets (Bld) [#/Vol] 211 10*3/uL 150-450 [facility] Potassium measurement (mass/ volume)Ordered By: Antoni Argueta on 08-05-2025 Potassium (Unsp spec) [Mass/Vol] 5.5 mmol/L High 3.3-5.1 [facility] RBC Auto (Bld) [#/Vol]Ordere d By: Antoni Argueta on 08-05-2025 RBC (Bld) [#/Vol] 2.67 10*6/uL Low 4.2-5.4 [facility] Serum creatinine measurement (mass/volume)Ordered By: Antoni Argueta on 08-05-2025 Creatinine [Mass/Vol] 1.60 mg/dL High 0.70-1.20 [facility] Serum glucose measurement (m ass/volume)Ordered By: Antoni Argueta on 08-05-2025 Glucose [Mass/Vol] 270 mg/dL High 70-99 [facility] Serum or plasma calcium merritt urement (mass/volume)Ordered By: Antoni Argueta on 08-05-2025 Calcium [Mass/Vol] 8.2 mg/dL 7.6-11.0 [facility] Serum or plasma urea nitroge n measurement (mass/volume)Ordered By: Antoni Argueta on 08-05-2025 Urea nitrogen [Mass/Vol] 28 mg/dL High 4-19 [facility] Sodium levelOrdered By: Patrick Argueta on 08-05-2025 Sodium [Moles/Vol] 134 mmol/L 133-145 [facility] White blood cell (WBC) count Ordered By: Antoni Argueta on 08-05-2025 WBC (Bld) [#/Vol] 8.8 10*3/uL 4.4-11.0 [facility] Basic Metabolic Profile (BMP )on 08-04-2025 BUN/CRE 16.9 RATIO Normal 10-20 [facility] Comment on above: Performed By: #### L 500.2500 ####[facility] [address] [place], [address] Calcium [Mass/Vol] 8.2 mg/dL Normal 7.6-11.0 [facility] Comment on above: Performed By: #### L 500.2500 ####[facility] [address] [place], [address] Chloride [Moles/Vol] 103 mmol/L Normal 98-[address] [facility] Comment on above: Performed By: #### L 500.2500 ####[facility] [address] [place], [address] CO2 [Moles/Vol] 26.2 mmol/L Normal 21.0-32.0 [facility] Comment on above: Performed By: #### L 500.2500 ####[facility] [address] [place], [address] Creatinine [Mass/Vol] 1.37 mg/dL High 0.70-1.20 [facility] Comment on above: Performed By: #### L 500.2500 ####[facility] [address] [place], [address] ECRCL 36.94 ml/min Low 50-250 [facility] Comment on above: Performed By: #### L 500.2500 ####[facility] [address] [place], [address] GAP 9 Normal 5-15 [facility] Comment on above: Performed By: #### L 500.2500 ####[facility] [address] [place], [address] GFR/1.73 sq M.predicted among non-blacks MDRD (S/P/Bld) [Vol rate/Area] 39 mL/min/{1.73_m2} Low >60 [facility] Comment on above: Result Comment: mL/m in/1.73m2 CKD-EPI Creatinine Equation (2020) Performed By: #### L 500.2500 ####[facility] [address] [place], [address] Glucose [Mass/Vol] 248 mg/dL High 70-99 [facility] Comment on above: Performed By: #### L 500.2500 ####[facility] [address] [place], [address] Potassium [Moles/Vol] 5.0 mmol/L Normal 3.3-5.1 [facility] Comment on above: Performed By: #### L 500.2500 ####[facility] [address] [place], [address] Sodium [Moles/Vol] 138 mmol/L Normal 133-145 [facility] Comment on above: Performed By: #### L 500.2500 ####[facility] [address] [place], [address] Urea nitrogen [Mass/Vol] 23 mg/dL High 4-19 [facility] Comment on above: Performed By: #### L 500.2500 ####[facility] [address] [place], [address] BUN Normal 4-19 [facility] Comment on above: Result Comment: Estefani falcon via OM: Ordered Performed By: #### L 500.2500, L100.0500 ####[facility] [address] [place], [address] BUN/CRE Normal 10-20 [facility] Comment on above: Result Comment: Canc elled via OM: MD Ordered Performed By: #### L 500.2500, L100.0500 ####[facility] [address] [place], [address] Calcium Normal 7.6-11.0 [facility] Comment on above: Result Comment: Canc elled via OM: MD Ordered Performed By: #### L 500.2500, L100.0500 ####[facility] [address] [place], [address] CL Normal 98-108 [facility] Comment on above: Result Comment: Canc elled via OM: MD Ordered Performed By: #### L 500.2500, L100.0500 ####[facility] [address] [place], [address] CO2 Normal 21.0-32.0 [facility] Comment on above: Result Comment: Canc elled via OM: MD Ordered Performed By: #### L 500.2500, L100.0500 ####[facility] [address] [place], [address] CREAT,SERUM Normal 0.70-1.20 [facility] Comment on above: Result Comment: Canc elled via OM: MD Ordered Performed By: #### L 500.2500, L100.0500 ####[facility] [address] [place], [address] eGFR Normal >60 [facility] Comment on above: Result Comment: Canc elled via OM: MD Ordered Performed By: #### L 500.2500, L100.0500 ####[facility] [address] [place], [address] GAP Normal 5-15 [facility] Comment on above: Result Comment: Canc elled via OM: MD Ordered Performed By: #### L 500.2500, L100.0500 ####[facility] [address] [place], [address] GLU Normal 70-99 [facility] Comment on above: Result Comment: Canc elled via OM: MD Ordered Performed By: #### L 500.2500, L100.0500 ####[facility] [address] [place], [address] Potassium Normal 3.3-5.1 [facility] Comment on above: Result Comment: Canc elled via OM: MD Ordered Performed By: #### L 500.2500, L100.0500 ####[facility] [address] [place], [address] Basic Metabolic Profile (BMP) Normal 133-145 [facility] Comment on above: Result Comment: Canc elled via OM: MD Ordered Performed By: #### L 500.2500, L100.0500 ####[facility] [address] [place], [address] Bedside Glucoseon 08-04-2025 FINGERSTICK GLU 288 mg/dL High 74-106 [facility] Comment on above: Result Comment: RANDAL GEMENT OF PATIENT CARE PER NURSING PROTOCOL Performed By: #### L 501.080 ####[facility] [address] [place], [address] FINGERSTICK GLU 167 mg/dL High 74-106 [facility] Comment on above: Result Comment: RANDAL GEMENT OF PATIENT CARE PER NURSING PROTOCOL Performed By: #### L 501.080 ####[facility] [address] [place], [address] FINGERSTICK GLU 167 mg/dL High 74-106 [facility] Comment on above: Result Comment: RANDAL GEMENT OF PATIENT CARE PER NURSING PROTOCOL Performed By: #### L 501.080 ####[facility] [address] [place], [address] FINGERSTICK GLU 279 mg/dL High 74-106 [facility] Comment on above: Result Comment: RANDAL GEMENT OF PATIENT CARE PER NURSING PROTOCOL Performed By: #### L 501.080 ####[facility] [address] [place], [address] FINGERSTICK GLU 266 mg/dL High 74-106 [facility] Comment on above: Result Comment: RANDAL GEMENT OF PATIENT CARE PER NURSING PROTOCOL Performed By: #### L 501.080 ####[facility] [address] [place], [address] CBC-Complete Blood Cnt No Di ffon 08-04-2025 Erythrocyte distribution width (RBC) [Ratio] 14.3 % Normal 11.6-14.6 [facility] Comment on above: Performed By: #### L 100.0500 ####[facility] [address] [place], [address] Hematocrit (Bld) [Volume fraction] 25.5 % Low 37-47 [facility] Comment on above: Performed By: #### L 100.0500 ####[facility] [address] [place], [address] Hemoglobin (Bld) [Mass/Vol] 7.9 g/dL Low 12.0-15.0 [facility] Comment on above: Performed By: #### L 100.0500 ####[facility] [address] [place], [address] MCH (RBC) [Entitic mass] 30.5 pg Normal 27.0-32.0 [facility] Comment on above: Performed By: #### L 100.0500 ####[facility] [address] [place], [address] MCHC (RBC) [Mass/Vol] 31.0 g/dL Low 32-36 [facility] Comment on above: Performed By: #### L 100.0500 ####[facility] [address] [place], [address] MCV (RBC) [Entitic vol] 98.5 fL Normal 81-99 [facility] Comment on above: Performed By: #### L 100.0500 ####[facility] [address] [place], [address] Platelet mean volume (Bld) [Entitic vol] 10.4 fL Normal 6.2-12.0 [facility] Comment on above: Performed By: #### L 100.0500 ####[facility] [address] [place], [address] Platelets (Bld) [#/Vol] 227 10*3/uL Normal 150-450 [facility] Comment on above: Performed By: #### L 100.0500 ####[facility] [address] [place], [address] RBC (Bld) [#/Vol] 2.59 10*6/uL Low 4.2-5.4 [facility] Comment on above: Performed By: #### L 100.0500 ####[facility] [address] [place], [address] RDW SD 49.9 fl High 35.1-43.9 [facility] Comment on above: Performed By: #### L 100.0500 ####[facility] [address] [place], [address] WBC (Bld) [#/Vol] 9.4 10*3/uL Normal 4.4-11.0 [facility] Comment on above: Performed By: #### L 100.0500 ####[facility] [address] [place], [address] HCT Normal 37-47 [facility] Comment on above: Result Comment: Canc elled via OM: MD Ordered Performed By: #### L 500.2500, L100.0500 ####[facility] [address] [place], [address] HGB Normal 12.0-15.0 [facility] Comment on above: Result Comment: Canc elled via OM: MD Ordered Performed By: #### L 500.2500, L100.0500 ####[facility] [address] [place], [address] MCH Normal 27.0-32.0 [facility] Comment on above: Result Comment: Canc elled via OM: MD Ordered Performed By: #### L 500.2500, L100.0500 ####[facility] [address] [place], [address] MCHC Normal 32-36 [facility] Comment on above: Result Comment: Canc elled via OM: MD Ordered Performed By: #### L 500.2500, L100.0500 ####[facility] [address] [place], [address] MCV Normal 81-99 [facility] Comment on above: Result Comment: Canc elled via OM: MD Ordered Performed By: #### L 500.2500, L100.0500 ####[facility] [address] [place], [address] PLT Normal 150-450 [facility] Comment on above: Result Comment: Canc elled via OM: MD Ordered Performed By: #### L 500.2500, L100.0500 ####[facility] [address] [place], [address] RBC Normal 4.2-5.4 [facility] Comment on above: Result Comment: Canc elled via OM: MD Ordered Performed By: #### L 500.2500, L100.0500 ####[facility] [address] [place], [address] RDW CV Normal 11.6-14.6 [facility] Comment on above: Result Comment: Canc elled via OM: MD Ordered Performed By: #### L 500.2500, L100.0500 ####[facility] [address] [place], [address] RDW SD Normal 35.1-43.9 [facility] Comment on above: Result Comment: Canc elled via OM: MD Ordered Performed By: #### L 500.2500, L100.0500 ####[facility] [address] [place], [address] WBC Normal 4.4-11.0 [facility] Comment on above: Result Comment: Canc elled via OM: MD Ordered Performed By: #### L 500.2500, L100.0500 ####[facility] [address] [place], [address] Modified Barium Swallow Stud yon 08-04-2025 Modified Barium Swallow Study Normal [facility] Surgical pathology reportOrd ered By: Yasmin Tabares on 08-04-2025 Surgical pathology study [facility] Basic Metabolic Profile (BMP )on 08-03-2025 BUN Normal 4-19 [facility] Comment on above: Result Comment: Canc elled via OM: MD Ordered Performed By: #### L 500.2500, L100.0500 ####[facility] [address] [place], [address] BUN/CRE Normal 10-20 [facility] Comment on above: Result Comment: Canc elled via OM: MD Ordered Performed By: #### L 500.2500, L100.0500 ####[facility] [address] [place], [address] Calcium Normal 7.6-11.0 [facility] Comment on above: Result Comment: Canc elled via OM: MD Ordered Performed By: #### L 500.2500, L100.0500 ####[facility] [address] [place], [address] CL Normal 98-108 [facility] Comment on above: Result Comment: Canc elled via OM: MD Ordered Performed By: #### L 500.2500, L100.0500 ####[facility] [address] [place], [address] CO2 Normal 21.0-32.0 [facility] Comment on above: Result Comment: Canc elled via OM: MD Ordered Performed By: #### L 500.2500, L100.0500 ####[facility] [address] [place], [address] CREAT,SERUM Normal 0.70-1.20 [facility] Comment on above: Result Comment: Canc elled via OM: MD Ordered Performed By: #### L 500.2500, L100.0500 ####[facility] [address] [place], [address] eGFR Normal >60 [facility] Comment on above: Result Comment: Canc elled via OM: MD Ordered Performed By: #### L 500.2500, L100.0500 ####[facility] [address] [place], [address] GAP Normal 5-15 [facility] Comment on above: Result Comment: Canc elled via OM: MD Ordered Performed By: #### L 500.2500, L100.0500 ####[facility] [address] [place], [address] GLU Normal 70-99 [facility] Comment on above: Result Comment: Canc elled via OM: MD Ordered Performed By: #### L 500.2500, L100.0500 ####[facility] [address] [place], [address] Potassium Normal 3.3-5.1 [facility] Comment on above: Result Comment: Canc elled via OM: MD Ordered Performed By: #### L 500.2500, L100.0500 ####[facility] [address] [place], [address] Basic Metabolic Profile (BMP) Normal 133-145 [facility] Comment on above: Result Comment: Canc elled via OM: MD Ordered Performed By: #### L 500.2500, L100.0500 ####[facility] [address] [place], [address] Bedside Glucoseon 08-03-2025 FINGERSTICK GLU 289 mg/dL High 74-106 [facility] Comment on above: Result Comment: RANDAL GEMENT OF PATIENT CARE PER NURSING PROTOCOL Performed By: #### L 501.080 ####[facility] [address] [place], [address] FINGERSTICK GLU 298 mg/dL High 74-106 [facility] Comment on above: Result Comment: RANDAL GEMENT OF PATIENT CARE PER NURSING PROTOCOL Performed By: #### L 501.080 ####[facility] [address] [place], [address] FINGERSTICK GLU 221 mg/dL High 74-106 [facility] Comment on above: Result Comment: RANDAL GEMENT OF PATIENT CARE PER NURSING PROTOCOL Performed By: #### L 501.080 ####[facility] [address] [place], [address] FINGERSTICK GLU 154 mg/dL High 74-106 [facility] Comment on above: Result Comment: RANDAL GEMENT OF PATIENT CARE PER NURSING PROTOCOL Performed By: #### L 501.080 ####[facility] [address] [place], [address] CBC W/Diff, Automatedon - PATH REV Reviewed Normal [facility] Comment on above: Result Comment: SEE REPORT IN PATIENT'S EMR AMENDED REPORT 08/03/25 1419 PATH REV previously reported as: May foll Performed By: #### L 100.0100, L500.2500 ####[facility] [address] [place], [address] CBC-Complete Blood Cnt No Di ffon 08-03-2025 HCT Normal 37-47 [facility] Comment on above: Result Comment: Canc elled via OM: MD Ordered Performed By: #### L 500.2500, L100.0500 ####[facility] [address] [place], [address] HGB Normal 12.0-15.0 [facility] Comment on above: Result Comment: Canc elled via OM: MD Ordered Performed By: #### L 500.2500, L100.0500 ####[facility] [address] [place], [address] MCH Normal 27.0-32.0 [facility] Comment on above: Result Comment: Canc elled via OM: MD Ordered Performed By: #### L 500.2500, L100.0500 ####[facility] [address] [place], [address] MCHC Normal 32-36 [facility] Comment on above: Result Comment: Canc elled via OM: MD Ordered Performed By: #### L 500.2500, L100.0500 ####[facility] [address] [place], [address] MCV Normal 81-99 [facility] Comment on above: Result Comment: Canc elled via OM: MD Ordered Performed By: #### L 500.2500, L100.0500 ####[facility] [address] [place], [address] PLT Normal 150-450 [facility] Comment on above: Result Comment: Canc elled via OM: MD Ordered Performed By: #### L 500.2500, L100.0500 ####[facility] [address] [place], [address] RBC Normal 4.2-5.4 [facility] Comment on above: Result Comment: Canc elled via OM: MD Ordered Performed By: #### L 500.2500, L100.0500 ####[facility] [address] [place], [address] RDW CV Normal 11.6-14.6 [facility] Comment on above: Result Comment: Canc elled via OM: MD Ordered Performed By: #### L 500.2500, L100.0500 ####[facility] [address] [place], [address] RDW SD Normal 35.1-43.9 [facility] Comment on above: Result Comment: Canc elled via OM: MD Ordered Performed By: #### L 500.2500, L100.0500 ####[facility] [address] [place], [address] WBC Normal 4.4-11.0 [facility] Comment on above: Result Comment: Canc elled via OM: MD Ordered Performed By: #### L 500.2500, L100.0500 ####[facility] [address] [place], [address] MR/PN.GIon 08-03-2025 MR/PN.GI Normal [facility] Basic Metabolic Profile (BMP )on 08-02-2025 BUN/CRE 18.5 RATIO Normal 08-01 [facility] Comment on above: Performed By: #### L 500.2500 ####[facility] [address] [place], [address] Calcium [Mass/Vol] 8.4 mg/dL Normal 7.6-11.0 [facility] Comment on above: Performed By: #### L 500.2500 ####[facility] [address] [place], [address] Chloride [Moles/Vol] 108 mmol/L Normal 98-[address] [facility] Comment on above: Performed By: #### L 500.2500 ####[facility] [address] [place], [address] CO2 [Moles/Vol] 21.9 mmol/L Normal 21.0-32.0 [facility] Comment on above: Performed By: #### L 500.2500 ####[facility] [address] [place], [address] Creatinine [Mass/Vol] 1.40 mg/dL High 0.70-1.20 [facility] Comment on above: Performed By: #### L 500.2500 ####[facility] [address] [place], [address] ECRCL 36.34 ml/min Low 50-250 [facility] Comment on above: Performed By: #### L 500.2500 ####[facility] [address] [place], [address] GAP 10 Normal 5-15 [facility] Comment on above: Performed By: #### L 500.2500 ####[facility] [address] [place], [address] GFR/1.73 sq M.predicted among non-blacks MDRD (S/P/Bld) [Vol rate/Area] 38 mL/min/{1.73_m2} Low >60 [facility] Comment on above: Result Comment: mL/m in/1.73m2 CKD-EPI Creatinine Equation (2020) Performed By: #### L 500.2500 ####[facility] [address] [place], [address] Glucose [Mass/Vol] 278 mg/dL High 70-99 [facility] Comment on above: Performed By: #### L 500.2500 ####[facility] [address] [place], [address] Potassium [Moles/Vol] 4.2 mmol/L Normal 3.3-5.1 [facility] Comment on above: Performed By: #### L 500.2500 ####[facility] [address] [place], [address] Sodium [Moles/Vol] 139 mmol/L Normal 133-145 [facility] Comment on above: Performed By: #### L 500.2500 ####[facility] [address] [place], [address] Urea nitrogen [Mass/Vol] 26 mg/dL High 4-19 [facility] Comment on above: Performed By: #### L 500.2500 ####[facility] [address] [place], [address] BUN Normal 4-19 [facility] Comment on above: Result Comment: Canc elled via OM: MD Ordered Performed By: #### L 100.0500, L500.2500 ####[facility] [address] [place], [address] BUN/CRE Normal 10-20 [facility] Comment on above: Result Comment: Canc elled via OM: MD Ordered Performed By: #### L 100.0500, L500.2500 ####[facility] [address] [place], [address] Calcium Normal 7.6-11.0 [facility] Comment on above: Result Comment: Canc elled via OM: MD Ordered Performed By: #### L 100.0500, L500.2500 ####[facility] [address] [place], [address] CL Normal 98-108 [facility] Comment on above: Result Comment: Canc elled via OM: MD Ordered Performed By: #### L 100.0500, L500.2500 ####[facility] [address] [place], [address] CO2 Normal 21.0-32.0 [facility] Comment on above: Result Comment: Canc elled via OM: MD Ordered Performed By: #### L 100.0500, L500.2500 ####[facility] [address] [place], [address] CREAT,SERUM Normal 0.70-1.20 [facility] Comment on above: Result Comment: Canc elled via OM: MD Ordered Performed By: #### L 100.0500, L500.2500 ####[facility] [address] [place], [address] eGFR Normal >60 [facility] Comment on above: Result Comment: Canc elled via OM: MD Ordered Performed By: #### L 100.0500, L500.2500 ####[facility] [address] [place], [address] GAP Normal 5-15 [facility] Comment on above: Result Comment: Canc elled via OM: MD Ordered Performed By: #### L 100.0500, L500.2500 ####[facility] [address] [place], [address] GLU Normal 70-99 [facility] Comment on above: Result Comment: Canc elled via OM: MD Ordered Performed By: #### L 100.0500, L500.2500 ####[facility] [address] [place], [address] Potassium Normal 3.3-5.1 [facility] Comment on above: Result Comment: Canc elled via OM: MD Ordered Performed By: #### L 100.0500, L500.2500 ####[facility] [address] [place], [address] Basic Metabolic Profile (BMP) Normal 133-145 [facility] Comment on above: Result Comment: Canc elled via OM: MD Ordered Performed By: #### L 100.0500, L500.2500 ####[facility] [address] [place], [address] Bedside Glucoseon 08-02-2025 FINGERSTICK GLU 153 mg/dL High -106 [facility] Comment on above: Result Comment: RANDAL GEMENT OF PATIENT CARE PER NURSING PROTOCOL Performed By: #### L 501.080 ####[facility] [address] [place], [address] FINGERSTICK GLU 308 mg/dL High 74-106 [facility] Comment on above: Result Comment: RANDAL GEMENT OF PATIENT CARE PER NURSING PROTOCOL Performed By: #### L 501.080 ####[facility] [address] [place], [address] FINGERSTICK GLU 247 mg/dL High -[address] [place] [address] Comment on above: Result Comment: RANDAL GEMENT OF PATIENT CARE PER NURSING PROTOCOL Performed By: #### L 501.080 ####[facility] [address] [place], [address] FINGERSTICK GLU 139 mg/dL High [facility]106 [facility] Comment on above: Result Comment: RANDAL GEMENT OF PATIENT CARE PER NURSING PROTOCOL Performed By: #### L 501.080 ####[facility] [address] [place], [address] CBC-Complete Blood Cnt No Di ffon 08-02-2025 Erythrocyte distribution width (RBC) [Ratio] 14.6 % Normal 11.6-14.6 [facility] Comment on above: Performed By: #### L 100.0500 ####[facility] [address] [place], [address] Hematocrit (Bld) [Volume fraction] 29.0 % Low 37-47 [facility] Comment on above: Performed By: #### L 100.0500 ####[facility] [address] [place], [address] Hemoglobin (Bld) [Mass/Vol] 8.9 g/dL Low 12.0-15.0 [facility] Comment on above: Performed By: #### L 100.0500 ####[facility] [address] [place], [address] MCH (RBC) [Entitic mass] 30.6 pg Normal 27.0-32.0 [facility] Comment on above: Performed By: #### L 100.0500 ####[facility] [address] [place], [address] MCHC (RBC) [Mass/Vol] 30.7 g/dL Low 32-36 [facility] Comment on above: Performed By: #### L 100.0500 ####[facility] [address] [place], [address] MCV (RBC) [Entitic vol] 99.7 fL High 81-99 [facility] Comment on above: Performed By: #### L 100.0500 ####[facility] [address] [place], [address] Platelet mean volume (Bld) [Entitic vol] 10.1 fL Normal 6.2-12.0 [facility] Comment on above: Performed By: #### L 100.0500 ####[facility] [address] [place], [address] Platelets (Bld) [#/Vol] 251 10*3/uL Normal 150-450 [facility] Comment on above: Performed By: #### L 100.0500 ####[facility] [address] [place], [address] RBC (Bld) [#/Vol] 2.91 10*6/uL Low 4.2-5.4 [facility] Comment on above: Performed By: #### L 100.0500 ####[facility] [address] [place], [address] RDW SD 51.9 fl High 35.1-43.9 [facility] Comment on above: Performed By: #### L 100.0500 ####[facility] [address] [place], [address] WBC (Bld) [#/Vol] 9.1 10*3/uL Normal 4.4-11.0 [facility] Comment on above: Performed By: #### L 100.0500 ####[facility] [address] [place], [address] HCT Normal 37-47 [facility] Comment on above: Result Comment: Canc elled via OM: MD Ordered Performed By: #### L 100.0500, L500.2500 ####[facility] [address] [place], [address] HGB Normal 12.0-15.0 [facility] Comment on above: Result Comment: Canc elled via OM: MD Ordered Performed By: #### L 100.0500, L500.2500 ####[facility] [address] [place], [address] MCH Normal 27.0-32.0 [facility] Comment on above: Result Comment: Canc elled via OM: MD Ordered Performed By: #### L 100.0500, L500.2500 ####[facility] [address] [place], [address] MCHC Normal 32-36 [facility] Comment on above: Result Comment: Canc elled via OM: MD Ordered Performed By: #### L 100.0500, L500.2500 ####[facility] [address] [place], [address] MCV Normal 81-99 [facility] Comment on above: Result Comment: Canc elled via OM: MD Ordered Performed By: #### L 100.0500, L500.2500 ####[facility] [address] [place], [address] PLT Normal 150-450 [facility] Comment on above: Result Comment: Canc elled via OM: MD Ordered Performed By: #### L 100.0500, L500.2500 ####[facility] [address] [place], [address] RBC Normal 4.2-5.4 [facility] Comment on above: Result Comment: Canc elled via OM: MD Ordered Performed By: #### L 100.0500, L500.2500 ####[facility] [address] [place], [address] RDW CV Normal 11.6-14.6 [facility] Comment on above: Result Comment: Canc elled via OM: MD Ordered Performed By: #### L 100.0500, L500.2500 ####[facility] [address] [place], [address] RDW SD Normal 35.1-43.9 [facility] Comment on above: Result Comment: Canc elled via OM: MD Ordered Performed By: #### L 100.0500, L500.2500 ####[facility] [address] [place], [address] WBC Normal 4.4-11.0 [facility] Comment on above: Result Comment: Canc elled via OM: MD Ordered Performed By: #### L 100.0500, L500.2500 ####[facility] [address] [place], [address] Basic Metabolic Profile (BMP )on 08-01-2025 BUN/CRE 19.2 RATIO Normal 08-01 [facility] Comment on above: Performed By: #### L 500.2500, L100.0500 ####[facility] [address] [place], [address] Calcium [Mass/Vol] 8.3 mg/dL Normal 7.6-11.0 [facility] Comment on above: Performed By: #### L 500.2500, L100.0500 ####[facility] [address] [place], [address] Chloride [Moles/Vol] 109 mmol/L High 98-[address] [facility] Comment on above: Performed By: #### L 500.2500, L100.0500 ####[facility] [address] [place], [address] CO2 [Moles/Vol] 21.6 mmol/L Normal 21.0-32.0 [facility] Comment on above: Performed By: #### L 500.2500, L100.0500 ####[facility] [address] [place], [address] Creatinine [Mass/Vol] 1.42 mg/dL High 0.70-1.20 [facility] Comment on above: Performed By: #### L 500.2500, L100.0500 ####[facility] [address] [place], [address] ECRCL 35.84 ml/min Low 50-250 [facility] Comment on above: Performed By: #### L 500.2500, L100.0500 ####[facility] [address] [place], [address] GAP 9 Normal 5-15 [facility] Comment on above: Performed By: #### L 500.2500, L100.0500 ####[facility] [address] [place], [address] GFR/1.73 sq M.predicted among non-blacks MDRD (S/P/Bld) [Vol rate/Area] 38 mL/min/{1.73_m2} Low >60 [facility] Comment on above: Result Comment: mL/m in/1.73m2 CKD-EPI Creatinine Equation (2020) Performed By: #### L 500.2500, L100.0500 ####[facility] [address] [place], [address] Glucose [Mass/Vol] 262 mg/dL High 70-99 [facility] Comment on above: Performed By: #### L 500.2500, L100.0500 ####[facility] [address] [place], [address] Potassium [Moles/Vol] 4.1 mmol/L Normal 3.3-5.1 [facility] Comment on above: Performed By: #### L 500.2500, L100.0500 ####[facility] [address] [place], [address] Sodium [Moles/Vol] 140 mmol/L Normal 133-145 [facility] Comment on above: Performed By: #### L 500.2500, L100.0500 ####[facility] [address] [place], [address] Urea nitrogen [Mass/Vol] 27 mg/dL High 4-19 [facility] Comment on above: Performed By: #### L 500.2500, L100.0500 ####[facility] [address] [place], [address] Bedside Glucoseon 08-01-2025 FINGERSTICK GLU 244 mg/dL High 74-106 [facility] Comment on above: Result Comment: RANDAL GEMENT OF PATIENT CARE PER NURSING PROTOCOL Performed By: #### L 501.080 ####[facility] [address] [place], [address] FINGERSTICK GLU 166 mg/dL High 74-106 [facility] Comment on above: Result Comment: RANDAL GEMENT OF PATIENT CARE PER NURSING PROTOCOL Performed By: #### L 501.080 ####[facility] [address] [place], [address] FINGERSTICK GLU 286 mg/dL High 74-106 [facility] Comment on above: Result Comment: RANDAL GEMENT OF PATIENT CARE PER NURSING PROTOCOL Performed By: #### L 501.080 ####[facility] [address] [place], [address] FINGERSTICK GLU 256 mg/dL High 74-106 [facility] Comment on above: Result Comment: RANDAL GEMENT OF PATIENT CARE PER NURSING PROTOCOL Performed By: #### L 501.080 ####[facility] [address] [place], [address] FINGERSTICK GLU 212 mg/dL High 74-106 [facility] Comment on above: Result Comment: RANDAL GEMENT OF PATIENT CARE PER NURSING PROTOCOL Performed By: #### L 501.080 ####[facility] [address] [place], [address] CBC-Complete Blood Cnt No Di ffon 08-01-2025 Erythrocyte distribution width (RBC) [Ratio] 14.5 % Normal 11.6-14.6 [facility] Comment on above: Performed By: #### L 500.2500, L100.0500 ####[facility] [address] [place], [address] Hematocrit (Bld) [Volume fraction] 27.5 % Low 37-47 [facility] Comment on above: Performed By: #### L 500.2500, L100.0500 ####[facility] [address] [place], [address] Hemoglobin (Bld) [Mass/Vol] 8.5 g/dL Low 12.0-15.0 [facility] Comment on above: Performed By: #### L 500.2500, L100.0500 ####[facility] [address] [place], [address] MCH (RBC) [Entitic mass] 30.5 pg Normal 27.0-32.0 [facility] Comment on above: Performed By: #### L 500.2500, L100.0500 ####[facility] [address] [place], [address] MCHC (RBC) [Mass/Vol] 30.9 g/dL Low 32-36 [facility] Comment on above: Performed By: #### L 500.2500, L100.0500 ####[facility] [address] [place], [address] MCV (RBC) [Entitic vol] 98.6 fL Normal 81-99 [facility] Comment on above: Performed By: #### L 500.2500, L100.0500 ####[facility] [address] [place], [address] Platelet mean volume (Bld) [Entitic vol] 9.8 fL Normal 6.2-12.0 [facility] Comment on above: Performed By: #### L 500.2500, L100.0500 ####[facility] [address] [place], [address] Platelets (Bld) [#/Vol] 273 10*3/uL Normal 150-450 [facility] Comment on above: Performed By: #### L 500.2500, L100.0500 ####[facility] [address] [place], [address] RBC (Bld) [#/Vol] 2.79 10*6/uL Low 4.2-5.4 [facility] Comment on above: Performed By: #### L 500.2500, L100.0500 ####[facility] [address] [place], [address] RDW SD 51.2 fl High 35.1-43.9 [facility] Comment on above: Performed By: #### L 500.2500, L100.0500 ####[facility] [address] [place], [address] WBC (Bld) [#/Vol] 10.1 10*3/uL Normal 4.4-11.0 [facility] Comment on above: Performed By: #### L 500.2500, L100.0500 ####[facility] [address] [place], [address] Basic Metabolic Profile (BMP )on 07-31-2025 BUN/CRE 20.2 RATIO High 08-01 [facility] Comment on above: Performed By: #### L 100.0500, L500.2500 ####[facility] [address] [place], [address] Calcium [Mass/Vol] 8.4 mg/dL Normal 7.6-11.0 [facility] Comment on above: Performed By: #### L 100.0500, L500.2500 ####[facility] [address] [place], [address] Chloride [Moles/Vol] 110 mmol/L High 98-[address] [facility] Comment on above: Performed By: #### L 100.0500, L500.2500 ####[facility] [address] [place], [address] CO2 [Moles/Vol] 19.7 mmol/L Low 21.0-32.0 [facility] Comment on above: Performed By: #### L 100.0500, L500.2500 ####[facility] [address] [place], [address] Creatinine [Mass/Vol] 1.44 mg/dL High 0.70-1.20 [facility] Comment on above: Performed By: #### L 100.0500, L500.2500 ####[facility] [address] [place], [address] ECRCL 35.35 ml/min Low 50-250 [facility] Comment on above: Performed By: #### L 100.0500, L500.2500 ####[facility] [address] [place], [address] GAP 11 Normal 5-15 [facility] Comment on above: Performed By: #### L 100.0500, L500.2500 ####[facility] [address] [place], [address] GFR/1.73 sq M.predicted among non-blacks MDRD (S/P/Bld) [Vol rate/Area] 37 mL/min/{1.73_m2} Low >60 [facility] Comment on above: Result Comment: mL/m in/1.73m2 CKD-EPI Creatinine Equation (2020) Performed By: #### L 100.0500, L500.2500 ####[facility] [address] [place], [address] Glucose [Mass/Vol] 240 mg/dL High 70-99 [facility] Comment on above: Performed By: #### L 100.0500, L500.2500 ####[facility] [address] [place], [address] Potassium [Moles/Vol] 4.1 mmol/L Normal 3.3-5.1 [facility] Comment on above: Performed By: #### L 100.0500, L500.2500 ####[facility] [address] [place], [address] Sodium [Moles/Vol] 140 mmol/L Normal 133-145 [facility] Comment on above: Performed By: #### L 100.0500, L500.2500 ####[facility] [address] [place], [address] Urea nitrogen [Mass/Vol] 29 mg/dL High 4-19 [facility] Comment on above: Performed By: #### L 100.0500, L500.2500 ####[facility] [address] [place], [address] Bedside Glucoseon 07-31-2025 FINGERSTICK GLU 192 mg/dL High 74-106 [facility] Comment on above: Result Comment: RANDAL GEMENT OF PATIENT CARE PER NURSING PROTOCOL Performed By: #### L 501.080 ####[facility] [address] [place], [address] FINGERSTICK GLU 228 mg/dL High 74-106 [facility] Comment on above: Result Comment: RANDAL GEMENT OF PATIENT CARE PER NURSING PROTOCOL Performed By: #### L 501.080 ####[facility] [address] [place], [address] FINGERSTICK GLU 238 mg/dL High 74-106 [facility] Comment on above: Result Comment: RANDAL GEMENT OF PATIENT CARE PER NURSING PROTOCOL Performed By: #### L 501.080 ####[facility] [address] [place], [address] CBC-Complete Blood Cnt No Di ffon 07-31-2025 Erythrocyte distribution width (RBC) [Ratio] 14.3 % Normal 11.6-14.6 [facility] Comment on above: Performed By: #### L 100.0500, L500.2500 ####[facility] [address] [place], [address] Hematocrit (Bld) [Volume fraction] 29.4 % Low 37-47 [facility] Comment on above: Performed By: #### L 100.0500, L500.2500 ####[facility] [address] [place], [address] Hemoglobin (Bld) [Mass/Vol] 9.2 g/dL Low 12.0-15.0 [facility] Comment on above: Performed By: #### L 100.0500, L500.2500 ####[facility] [address] [place], [address] MCH (RBC) [Entitic mass] 30.6 pg Normal 27.0-32.0 [facility] Comment on above: Performed By: #### L 100.0500, L500.2500 ####[facility] [address] [place], [address] MCHC (RBC) [Mass/Vol] 31.3 g/dL Low 32-36 [facility] Comment on above: Performed By: #### L 100.0500, L500.2500 ####[facility] [address] [place], [address] MCV (RBC) [Entitic vol] 97.7 fL Normal 81-99 [facility] Comment on above: Performed By: #### L 100.0500, L500.2500 ####[facility] [address] [place], [address] Platelet mean volume (Bld) [Entitic vol] 10.0 fL Normal 6.2-12.0 [facility] Comment on above: Performed By: #### L 100.0500, L500.2500 ####[facility] [address] [place], [address] Platelets (Bld) [#/Vol] 317 10*3/uL Normal 150-450 [facility] Comment on above: Performed By: #### L 100.0500, L500.2500 ####[facility] [address] [place], [address] RBC (Bld) [#/Vol] 3.01 10*6/uL Low 4.2-5.4 [facility] Comment on above: Performed By: #### L 100.0500, L500.2500 ####[facility] [address] [place], [address] RDW SD 49.6 fl High 35.1-43.9 [facility] Comment on above: Performed By: #### L 100.0500, L500.2500 ####[facility] [address] [place], [address] WBC (Bld) [#/Vol] 11.9 10*3/uL High 4.4-11.0 [facility] Comment on above: Performed By: #### L 100.0500, L500.2500 ####[facility] [address] [place], [address] Bedside Glucoseon 07-30-2025 FINGERSTICK GLU 109 mg/dL High 74-106 [facility] Comment on above: Result Comment: RANDAL GEMENT OF PATIENT CARE PER NURSING PROTOCOL Performed By: #### L 501.080 ####[facility] [address] [place], [address] FINGERSTICK GLU 150 mg/dL High 74-106 [facility] Comment on above: Result Comment: RANDAL GEMENT OF PATIENT CARE PER NURSING PROTOCOL Performed By: #### L 501.080 ####[facility] [address] [place], [address] FINGERSTICK GLU 160 mg/dL High 74-106 [facility] Comment on above: Result Comment: RANDAL GEMENT OF PATIENT CARE PER NURSING PROTOCOL Performed By: #### L 501.080 ####[facility] [address] [place], [address] FINGERSTICK GLU 109 mg/dL High 74-106 [facility] Comment on above: Result Comment: RANDAL GEMENT OF PATIENT CARE PER NURSING PROTOCOL Performed By: #### L 501.080 ####[facility] [address] [place], [address] FINGERSTICK GLU 135 mg/dL High -106 [facility] Comment on above: Result Comment: RNADAL GEMENT OF PATIENT CARE PER NURSING PROTOCOL Performed By: #### L 501.080 ####[facility] [address] [place], [address] Absolute lymphocyte countOrd ered By: Doris Jeffries on 07-29-2025 Lymphocytes Auto (Unsp spec) [#/Vol] 1.64 10*3/uL 0.83-4.51 [facility] Basic Metabolic Profile (BMP )on 07-29-2025 BUN/CRE 33.2 RATIO High 10-20 [facility] Comment on above: Performed By: #### L 500.2500, L100.0100 ####[facility] [address] [place], [address] Calcium [Mass/Vol] 8.7 mg/dL Normal 7.6-11.0 [facility] Comment on above: Performed By: #### L 500.2500, L100.0100 ####[facility] [address] [place], [address] Chloride [Moles/Vol] 110 mmol/L High 98-[address] [facility] Comment on above: Performed By: #### L 500.2500, L100.0100 ####[facility] [address] [place], [address] CO2 [Moles/Vol] 19.3 mmol/L Low 21.0-32.0 [facility] Comment on above: Performed By: #### L 500.2500, L100.0100 ####[facility] [address] [place], [address] Creatinine [Mass/Vol] 1.67 mg/dL High 0.70-1.20 [facility] Comment on above: Performed By: #### L 500.2500, L100.0100 ####[facility] [address] [place], [address] ECRCL 30.81 ml/min Low 50-250 [facility] Comment on above: Performed By: #### L 500.2500, L100.0100 ####[facility] [address] [place], [address] GAP 11 Normal 5-15 [facility] Comment on above: Performed By: #### L 500.2500, L100.0100 ####[facility] [address] [place], [address] GFR/1.73 sq M.predicted among non-blacks MDRD (S/P/Bld) [Vol rate/Area] 31 mL/min/{1.73_m2} Low >60 [facility] Comment on above: Result Comment: mL/m in/1.73m2 CKD-EPI Creatinine Equation (2020) Performed By: #### L 500.2500, L100.0100 ####[facility] [address] [place], [address] Glucose [Mass/Vol] 215 mg/dL High 70-99 [facility] Comment on above: Performed By: #### L 500.2500, L100.0100 ####[facility] [address] [place], [address] Potassium [Moles/Vol] 3.8 mmol/L Normal 3.3-5.1 [facility] Comment on above: Performed By: #### L 500.2500, L100.0100 ####[facility] [address] [place], [address] Sodium [Moles/Vol] 140 mmol/L Normal 133-145 [facility] Comment on above: Performed By: #### L 500.2500, L100.0100 ####[facility] [address] [place], [address] Urea nitrogen [Mass/Vol] 56 mg/dL High 4-19 [facility] Comment on above: Performed By: #### L 500.2500, L100.0100 ####[facility] [address] [place], [address] Bedside Glucoseon 07-29-2025 FINGERSTICK GLU 118 mg/dL High 74-106 [facility] Comment on above: Result Comment: RANDAL GEMENT OF PATIENT CARE PER NURSING PROTOCOL Performed By: #### L 501.080 ####[facility] [address] [place], [address] FINGERSTICK GLU 66 mg/dL Low 74-106 [facility] Comment on above: Result Comment: RANDAL GEMENT OF PATIENT CARE PER NURSING PROTOCOL Performed By: #### L 501.080 ####[facility] [address] [place], [address] FINGERSTICK GLU 73 mg/dL Low 74-106 [facility] Comment on above: Result Comment: RANDAL GEMENT OF PATIENT CARE PER NURSING PROTOCOL Performed By: #### L 501.080 ####[facility] [address] [place], [address] FINGERSTICK GLU 156 mg/dL High 74-106 [facility] Comment on above: Result Comment: RANDAL GEMENT OF PATIENT CARE PER NURSING PROTOCOL Performed By: #### L 501.080 ####[facility] [address] [place], [address] FINGERSTICK GLU 167 mg/dL High 74-106 [facility] Comment on above: Result Comment: RANDAL GEMENT OF PATIENT CARE PER NURSING PROTOCOL Performed By: #### L 501.080 ####[facility] [address] [place], [address] FINGERSTICK GLU 129 mg/dL High 74-106 [facility] Comment on above: Result Comment: RANDAL GEMENT OF PATIENT CARE PER NURSING PROTOCOL Performed By: #### L 501.080 ####[facility] [address] [place], [address] FINGERSTICK GLU 122 mg/dL High 74-106 [facility] Comment on above: Result Comment: RANDAL GEMENT OF PATIENT CARE PER NURSING PROTOCOL Performed By: #### L 501.080 ####[facility] [address] [place], [address] Blood eosinophils/100 leukoc ytesOrdered By: Doris Jeffries on 07-29-2025 Eosinophils/100 WBC (Bld) 3 % 0-5 [facility] Blood lymphocytes/100 leukoc ytesOrdered By: Doris Jeffries on 07-29-2025 Lymphocytes/100 WBC (Bld) 12 % Low 19-41 [facility] Blood metamyelocytes/100 yadira kocytesOrdered By: Doris Jeffries on 07-29-2025 Metamyelocytes/100 WBC (Bld) 1 % 0-1 [facility] Blood monocytes/100 leukocyt esOrdered By: Doris Jeffries on 07-29-2025 Monocytes/100 WBC (Bld) 2 % 0-10 [facility] Blood promyelocytes/100 leuk ocytesOrdered By: Doris Jeffries on 07-29-2025 Promyelocytes/100 WBC (Bld) 1 % High 0-0 [facility] Blood segmented neutrophils/ 100 leukocytesOrdered By: Doris Jeffries on 07-29-2025 Segmented neutrophils/100 WBC (Bld) 75 % High 47-70 [facility] CBC W/Diff, Automatedon 07-13 Absolute Lymph 1.64 X10 3/uL Normal 0.83-4.51 [facility] Comment on above: Performed By: #### L 500.2500, L100.0100 ####[facility] [address] [place], [address] Absolute Neut 10.2 X10 3/uL High 2.0-7.7 [facility] Comment on above: Performed By: #### L 500.2500, L100.0100 ####[facility] [address] [place], [address] Eosinophils/100 WBC (Bld) 3 % Normal 0-5 [facility] Comment on above: Performed By: #### L 500.2500, L100.0100 ####[facility] [address] [place], [address] Lymphocytes (Bld) [#/Vol] 12 10*3/uL Low 19-41 [facility] Comment on above: Performed By: #### L 500.2500, L100.0100 ####[facility] [address] [place], [address] META 1 Normal 0-1 [facility] Comment on above: Performed By: #### L 500.2500, L100.0100 ####[facility] [address] [place], [address] Metamyelocytes/100 WBC (Bld) 6 % High 0-0 [facility] Comment on above: Performed By: #### L 500.2500, L100.0100 ####[facility] [address] [place], [address] MONOCYTE 2 Normal 0-10 [facility] Comment on above: Performed By: #### L 500.2500, L100.0100 ####[facility] [address] [place], [address] PLT EST ADEQUATE Normal ADEQ [facility] Comment on above: Performed By: #### L 500.2500, L100.0100 ####[facility] [address] [place], [address] PROMYELO 1 High 0-0 [facility] Comment on above: Performed By: #### L 500.2500, L100.0100 ####[facility] [address] [place], [address] RED CELL MORPH NORM C+C Normal NORM C C [facility] Comment on above: Performed By: #### L 500.2500, L100.0100 ####[facility] [address] [place], [address] SEGS 75 High 47-70 [facility] Comment on above: Performed By: #### L 500.2500, L100.0100 ####[facility] [address] [place], [address] TOTAL CELLS 100 Normal MANUAL DIFF [facility] Comment on above: Performed By: #### L 500.2500, L100.0100 ####[facility] [address] [place], [address] EGD Reporton 07-29-2025 EGD Report Normal [facility] Erythrocyte morphology asses smentOrdered By: Doris Jeffries on 07-29-2025 RBC morphology finding Nom (Bld) NORM C+C NORMAL NORM C&C [facility] MR/OP.PROVATon 07-29-2025 MR/OP.PROVAT Normal [facility] MR/POSTOP.ANEon 07-29-2025 MR/POSTOP.ANE Normal [facility] MR/IOVNZPOJ1ub 07-29-2025 MR/POSTOPAN2 Normal [facility] MR/POSTOPAN2 Normal [facility] Platelet estimateOrdered By: Doris Jeffries on 07-29-2025 Platelets LM Ql (Bld) ADEQUATE ADEQ [facility] Total cell countOrdered By: Drois Jeffries on 07-29-2025 Cells counted Molgen (Bld/Tiss) [#] 100 MANUAL DIFF [facility] Activated partial thrombopla stin time (aPTT) in platelet poor plasma by coagulation aOrdered By: Jonel Lorenzo on 07-28-2025 aPTT Coag (PPP) [Time] 34.8 s 24.1-36.2 [facility] Basic Metabolic Profile (BMP )on 07-28-2025 BUN/CRE 33.2 RATIO High 08-01 [facility] Comment on above: Performed By: #### L 100.0100, L500.2500 ####[facility] [address] [place], [address] Calcium [Mass/Vol] 7.9 mg/dL Normal 7.6-11.0 [facility] Comment on above: Performed By: #### L 100.0100, L500.2500 ####[facility] [address] [place], [address] Chloride [Moles/Vol] 104 mmol/L Normal 98-[address] [facility] Comment on above: Performed By: #### L 100.0100, L500.2500 ####[facility] [address] [place], [address] CO2 [Moles/Vol] 15.3 mmol/L Low 21.0-32.0 [facility] Comment on above: Performed By: #### L 100.0100, L500.2500 ####[facility] [address] [place], [address] Creatinine [Mass/Vol] 2.34 mg/dL High 0.70-1.20 [facility] Comment on above: Performed By: #### L 100.0100, L500.2500 ####[facility] [address] [place], [address] ECRCL 22.07 ml/min Low 50-250 [facility] Comment on above: Performed By: #### L 100.0100, L500.2500 ####[facility] [address] [place], [address] GAP 15 Normal 5-15 [facility] Comment on above: Performed By: #### L 100.0100, L500.2500 ####[facility] [address] [place], [address] GFR/1.73 sq M.predicted among non-blacks MDRD (S/P/Bld) [Vol rate/Area] 21 mL/min/{1.73_m2} Low >60 [facility] Comment on above: Result Comment: mL/m in/1.73m2 CKD-EPI Creatinine Equation (2020) Performed By: #### L 100.0100, L500.2500 ####[facility] [address] [place], [address] Glucose [Mass/Vol] 214 mg/dL High 70-99 [facility] Comment on above: Performed By: #### L 100.0100, L500.2500 ####[facility] [address] [place], [address] Potassium [Moles/Vol] 3.9 mmol/L Normal 3.3-5.1 [facility] Comment on above: Performed By: #### L 100.0100, L500.2500 ####[facility] [address] [place], [address] Sodium [Moles/Vol] 134 mmol/L Normal 133-145 [facility] Comment on above: Performed By: #### L 100.0100, L500.2500 ####[facility] [address] [place], [address] Urea nitrogen [Mass/Vol] 78 mg/dL High 4-19 [facility] Comment on above: Performed By: #### L 100.0100, L500.2500 ####[facility] [address] [place], [address] Bedside Glucoseon 07-28-2025 FINGERSTICK GLU 185 mg/dL High 74-106 [facility] Comment on above: Result Comment: RANDAL GEMENT OF PATIENT CARE PER NURSING PROTOCOL Performed By: #### L 501.080 ####[facility] [address] [place], [address] FINGERSTICK GLU 144 mg/dL High 74-106 [facility] Comment on above: Result Comment: RANDAL GEMENT OF PATIENT CARE PER NURSING PROTOCOL Performed By: #### L 501.080 ####[facility] [address] [place], [address] FINGERSTICK GLU 139 mg/dL High 74-106 [facility] Comment on above: Result Comment: RANDAL GEMENT OF PATIENT CARE PER NURSING PROTOCOL Performed By: #### L 501.080 ####[facility] [address] [place], [address] FINGERSTICK GLU 114 mg/dL High 74-106 [facility] Comment on above: Result Comment: RANDAL GEMENT OF PATIENT CARE PER NURSING PROTOCOL Performed By: #### L 501.080 ####[facility] [address] [place], [address] FINGERSTICK GLU 81 mg/dL Normal 74-106 [facility] Comment on above: Result Comment: RANDAL GEMENT OF PATIENT CARE PER NURSING PROTOCOL Performed By: #### L 501.080 ####[facility] [address] [place], [address] Blood band neutrophil count as percentage of total leukocytesOrdered By: Doirs Jeffries on 07-28-2025 Band form neutrophils/100 WBC (Bld) 4 % 0-5 [facility] Blood polychromasia detectio n by light microscopyOrdered By: Doris Jeffrise on 07-28-2025 Polychromasia LM Ql (Bld) 1+ [facility] Blood vacuolated neutrophils detection by light microscopyOrdered By: Doris Jeffries on 07-28-2025 Neutrophils.vacuolated LM Ql (Bld) 1+ [facility] CBC W/Diff, Automatedon 07-13-2024 Anisocytosis Ql (Bld) 1+ Normal [facility] Comment on above: Performed By: #### L 100.0100, L500.2500 ####[facility] [address] [place], [address] OVALOCYTE 2+ Normal [facility] Comment on above: Performed By: #### L 100.0100, L500.2500 ####[facility] [address] [place], [address] PLT EST ADEQUATE Normal ADEQ [facility] Comment on above: Performed By: #### L 100.0100, L500.2500 ####[facility] [address] [place], [address] POLYCHROMASIA 1+ Normal [facility] Comment on above: Performed By: #### L 100.0100, L500.2500 ####[facility] [address] [place], [address] VACUOLATE CELLS 1+ Normal [facility] Comment on above: Performed By: #### L 100.0100, L500.2500 ####[facility] [address] [place], [address] Absolute Lymph 0.97 X10 3/uL Normal 0.83-4.51 [facility] Comment on above: Performed By: #### L 100.0100, L500.2500 ####[facility] [address] [place], [address] Absolute Neut 17.0 X10 3/uL High 2.0-7.7 [facility] Comment on above: Performed By: #### L 100.0100, L500.2500 ####[facility] [address] [place], [address] BAND 4 Normal 0-5 [facility] Comment on above: Performed By: #### L 100.0100, L500.2500 ####[facility] [address] [place], [address] Eosinophils/100 WBC (Bld) 1 % Normal 0-5 [facility] Comment on above: Performed By: #### L 100.0100, L500.2500 ####[facility] [address] [place], [address] Lymphocytes (Bld) [#/Vol] 5 10*3/uL Low 19-41 [facility] Comment on above: Performed By: #### L 100.0100, L500.2500 ####[facility] [address] [place], [address] META 2 High 0-1 [facility] Comment on above: Performed By: #### L 100.0100, L500.2500 ####[facility] [address] [place], [address] Metamyelocytes/100 WBC (Bld) 2 % High 0-0 [facility] Comment on above: Performed By: #### L 100.0100, L500.2500 ####[facility] [address] [place], [address] MONOCYTE 2 Normal 0-10 [facility] Comment on above: Performed By: #### L 100.0100, L500.2500 ####[facility] [address] [place], [address] SEGS 84 High 47-70 [facility] Comment on above: Performed By: #### L 100.0100, L500.2500 ####[facility] [address] [place], [address] TOTAL CELLS 100 Normal MANUAL DIFF [facility] Comment on above: Performed By: #### L 100.0100, L500.2500 ####[facility] [address] [place], [address] CXR for Line Placementon CXR for Line Placement Normal [facility] Modified Barium Swallow Stud yon 07-28-2025 Modified Barium Swallow Study Normal [facility] No Panel InformationOrdered By: Doris Jeffries on 07-28-2025 1+ [facility] Ovalocyte detectionOrdered B y: Doris Jeffries on 07-28-2025 Ovalocytes LM Ql (Bld) 2+ [facility] Partial Thromboplast Timeon 07-28-2025 aPTT Coag (Bld) [Time] 34.8 s Normal 24.1-36.2 [facility] Comment on above: Performed By: #### L 300.4310 ####[facility] [address] [place], [address] aPTT Coag (Bld) [Time] 169.4 s Invalid Interpretation Code 24.1-36.2 [facility] Comment on above: Result Comment: CRIT ICAL VALUE CALLED TO SHAINA RN (ICU)07/28/25 1453 Zeyad Mcdonald.RESULTS READ BACK BY SAME. Performed By: #### L 300.4310 ####[facility] [address] [place], [address] aPTT Coag (Bld) [Time] 95.2 s Invalid Interpretation Code 24.1-36.2 [facility] Comment on above: Result Comment: CRIT ICAL VALUE CALLED TO ASHTYN BOMLEDHXS03/16/25 0559 Julia Lee.RESULTS READ BACK BY SAME. Performed By: #### L 300.4310 ####[facility] [address] [place], [address] Basic Metabolic Profile (BMP )on 07-27-2025 BUN/CRE 35.3 RATIO High 08-01 [facility] Comment on above: Performed By: #### L 100.0100, L500.2500 ####[facility] [address] [place], [address] Calcium [Mass/Vol] 7.9 mg/dL Normal 7.6-11.0 [facility] Comment on above: Performed By: #### L 100.0100, L500.2500 ####[facility] [address] [place], [address] Chloride [Moles/Vol] 104 mmol/L Normal 98-[address] [facility] Comment on above: Performed By: #### L 100.0100, L500.2500 ####[facility] [address] [place], [address] CO2 [Moles/Vol] 18.2 mmol/L Low 21.0-32.0 [facility] Comment on above: Performed By: #### L 100.0100, L500.2500 ####[facility] [address] [place], [address] Creatinine [Mass/Vol] 2.59 mg/dL High 0.70-1.20 [facility] Comment on above: Performed By: #### L 100.0100, L500.2500 ####[facility] [address] [place], [address] ECRCL 19.94 ml/min Low 50-250 [facility] Comment on above: Performed By: #### L 100.0100, L500.2500 ####[facility] [address] [place], [address] GAP 13 Normal 5-15 [facility] Comment on above: Performed By: #### L 100.0100, L500.2500 ####[facility] [address] [place], [address] GFR/1.73 sq M.predicted among non-blacks MDRD (S/P/Bld) [Vol rate/Area] 18 mL/min/{1.73_m2} Low >60 [facility] Comment on above: Result Comment: mL/m in/1.73m2 CKD-EPI Creatinine Equation (2020) Performed By: #### L 100.0100, L500.2500 ####[facility] [address] [place], [address] Glucose [Mass/Vol] 179 mg/dL High 70-99 [facility] Comment on above: Performed By: #### L 100.0100, L500.2500 ####[facility] [address] [place], [address] Potassium [Moles/Vol] 3.9 mmol/L Normal 3.3-5.1 [facility] Comment on above: Performed By: #### L 100.0100, L500.2500 ####[facility] [address] [place], [address] Sodium [Moles/Vol] 135 mmol/L Normal 133-145 [facility] Comment on above: Performed By: #### L 100.0100, L500.2500 ####[facility] [address] [place], [address] Urea nitrogen [Mass/Vol] 92 mg/dL High 4-19 [facility] Comment on above: Performed By: #### L 100.0100, L500.2500 ####[facility] [address] [place], [address] Bedside Glucoseon 07-27-2025 FINGERSTICK GLU 101 mg/dL Normal 74-106 [facility] Comment on above: Result Comment: RANDAL GEMENT OF PATIENT CARE PER NURSING PROTOCOL Performed By: #### L 501.080 ####[facility] [address] [place], [address] FINGERSTICK GLU 45 mg/dL Low 74-106 [facility] Comment on above: Result Comment: RANDAL GEMENT OF PATIENT CARE PER NURSING PROTOCOL Performed By: #### L 501.080 ####[facility] [address] [place], [address] FINGERSTICK GLU 57 mg/dL Low 74-106 [facility] Comment on above: Result Comment: RANDAL GEMENT OF PATIENT CARE PER NURSING PROTOCOL Performed By: #### L 501.080 ####[facility] [address] [place], [address] FINGERSTICK GLU 147 mg/dL High 74-106 [facility] Comment on above: Result Comment: RANDAL GEMENT OF PATIENT CARE PER NURSING PROTOCOL Performed By: #### L 501.080 ####[facility] [address] [place], [address] FINGERSTICK GLU 53 mg/dL Low 74-106 [facility] Comment on above: Result Comment: RANDAL GEMENT OF PATIENT CARE PER NURSING PROTOCOL Performed By: #### L 501.080 ####[facility] [address] [place], [address] FINGERSTICK GLU 123 mg/dL High 74-106 [facility] Comment on above: Result Comment: RANDAL GEMENT OF PATIENT CARE PER NURSING PROTOCOL Performed By: #### L 501.080 ####[facility] [address] [place], [address] FINGERSTICK GLU 51 mg/dL Low 74-106 [facility] Comment on above: Result Comment: RANDAL GEMENT OF PATIENT CARE PER NURSING PROTOCOL Performed By: #### L 501.080 ####[facility] [address] [place], [address] Culture, Blood (WB)on 2024 CUB Blood cultures x2, from two different sites No growth in 5 days. Normal [facility] Comment on above: Performed By: #### L 501.4021, M200.1000, L503.7505, L503.6005 ####[facility] [address] [place], [address] Glucoseon 07-27-2025 Glucose [Mass/Vol] 73 mg/dL Normal 70-99 [facility] Comment on above: Performed By: #### L 501.0100 ####[facility] [address] [place], [address] Partial Thromboplast Timeon 07-27-2025 aPTT Coag (Bld) [Time] 61.3 s High 24.1-36.2 [facility] Comment on above: Performed By: #### L 300.4310 ####[facility] [address] [place], [address] aPTT Coag (Bld) [Time] 33.4 s Normal 24.1-36.2 [facility] Comment on above: Performed By: #### L 300.4310 ####[facility] [address] [place], [address] aPTT Coag (Bld) [Time] 25.8 s Normal 24.1-36.2 [facility] Comment on above: Performed By: #### L 300.4310 ####[facility] [address] [place], [address] Review by pathologistOrdered By: Doris Jeffries on 07-27-2025 Pathologist review Deven (Unsp spec) [Interp] Reviewed [facility] Basic Metabolic Profile (BMP )on 07-26-2025 BUN/CRE 34.4 RATIO High 10-20 [facility] Comment on above: Performed By: #### L 500.2500 ####[facility] [address] [place], [address] Calcium [Mass/Vol] 7.9 mg/dL Normal 7.6-11.0 [facility] Comment on above: Performed By: #### L 500.2500 ####[facility] [address] [place], [address] Chloride [Moles/Vol] 106 mmol/L Normal 98-[address] [facility] Comment on above: Performed By: #### L 500.2500 ####[facility] [address] [place], [address] CO2 [Moles/Vol] 17.7 mmol/L Low 21.0-32.0 [facility] Comment on above: Performed By: #### L 500.2500 ####[facility] [address] [place], [address] Creatinine [Mass/Vol] 2.42 mg/dL High 0.70-1.20 [facility] Comment on above: Performed By: #### L 500.2500 ####[facility] [address] [place], [address] ECRCL 21.15 ml/min Low 50-250 [facility] Comment on above: Performed By: #### L 500.2500 ####[facility] [address] [place], [address] GAP 14 Normal 5-15 [facility] Comment on above: Performed By: #### L 500.2500 ####[facility] [address] [place], [address] GFR/1.73 sq M.predicted among non-blacks MDRD (S/P/Bld) [Vol rate/Area] 20 mL/min/{1.73_m2} Low >60 [facility] Comment on above: Result Comment: mL/m in/1.73m2 CKD-EPI Creatinine Equation (2020) Performed By: #### L 500.2500 ####[facility] [address] [place], [address] Glucose [Mass/Vol] 185 mg/dL High 70-99 [facility] Comment on above: Performed By: #### L 500.2500 ####[facility] [address] [place], [address] Potassium [Moles/Vol] 4.7 mmol/L Normal 3.3-5.1 [facility] Comment on above: Performed By: #### L 500.2500 ####[facility] [address] [place], [address] Sodium [Moles/Vol] 138 mmol/L Normal 133-145 [facility] Comment on above: Performed By: #### L 500.2500 ####[facility] [address] [place], [address] Urea nitrogen [Mass/Vol] 83 mg/dL High 4-19 [facility] Comment on above: Performed By: #### L 500.2500 ####[facility] [address] [place], [address] BUN Normal 4-19 [facility] Comment on above: Result Comment: DUPL ICATE ORDER Performed By: #### L 500.2500 ####[facility] [address] [place], [address] BUN/CRE Normal 10-20 [facility] Comment on above: Result Comment: DUPL ICATE ORDER Performed By: #### L 500.2500 ####[facility] [address] [place], [address] Calcium Normal 7.6-11.0 [facility] Comment on above: Result Comment: DUPL ICATE ORDER Performed By: #### L 500.2500 ####[facility] [address] [place], [address] CL Normal 98-108 [facility] Comment on above: Result Comment: DUPL ICATE ORDER Performed By: #### L 500.2500 ####[facility] [address] [place], [address] CO2 Normal 21.0-32.0 [facility] Comment on above: Result Comment: DUPL ICATE ORDER Performed By: #### L 500.2500 ####[facility] [address] [place], [address] CREAT,SERUM Normal 0.70-1.20 [facility] Comment on above: Result Comment: DUPL ICATE ORDER Performed By: #### L 500.2500 ####[facility] [address] [place], [address] eGFR Normal >60 [facility] Comment on above: Result Comment: DUPL ICATE ORDER Performed By: #### L 500.2500 ####[facility] [address] [place], [address] GAP Normal 5-15 [facility] Comment on above: Result Comment: DUPL ICATE ORDER Performed By: #### L 500.2500 ####[facility] [address] [place], [address] GLU Normal 70-99 [facility] Comment on above: Result Comment: DUPL ICATE ORDER Performed By: #### L 500.2500 ####[facility] [address] [place], [address] Potassium Normal 3.3-5.1 [facility] Comment on above: Result Comment: DUPL ICATE ORDER Performed By: #### L 500.2500 ####[facility] [address] [place], [address] Basic Metabolic Profile (BMP) Normal 133-145 [facility] Comment on above: Result Comment: DUPL ICATE ORDER Performed By: #### L 500.2500 ####[facility] [address] [place], [address] Bedside Glucoseon 07-26-2025 FINGERSTICK GLU 124 mg/dL High 74-106 [facility] Comment on above: Result Comment: RANDAL GEMENT OF PATIENT CARE PER NURSING PROTOCOL Performed By: #### L 501.080 ####[facility] [address] [place], [address] FINGERSTICK GLU 174 mg/dL High 74-106 [facility] Comment on above: Result Comment: RANDAL GEMENT OF PATIENT CARE PER NURSING PROTOCOL Performed By: #### L 501.080 ####[facility] [address] [place], [address] FINGERSTICK GLU 176 mg/dL High 74-106 [facility] Comment on above: Result Comment: RANDAL GEMENT OF PATIENT CARE PER NURSING PROTOCOL Performed By: #### L 501.080 ####[facility] [address] [place], [address] FINGERSTICK GLU 183 mg/dL High 74-106 [facility] Comment on above: Result Comment: RANDAL GEMENT OF PATIENT CARE PER NURSING PROTOCOL Performed By: #### L 501.080 ####[facility] [address] [place], [address] FINGERSTICK GLU 163 mg/dL High 74-106 [facility] Comment on above: Result Comment: RANDAL CARTER OF PATIENT CARE PER NURSING PROTOCOL Performed By: #### L 501.080 ####[facility] [address] [place], [address] CBC W/Diff, Automatedon 10- Anisocytosis Ql (Bld) 1+ Normal [facility] Comment on above: Performed By: #### L 100.0100 ####[facility] [address] [place], [address] OVALOCYTE 2+ Normal [facility] Comment on above: Performed By: #### L 100.0100 ####[facility] [address] [place], [address] PLT EST ADEQUATE Normal ADEQ [facility] Comment on above: Performed By: #### L 100.0100 ####[facility] [address] [place], [address] TEAR DROP RARE Normal [facility] Comment on above: Performed By: #### L 100.0100 ####[facility] [address] [place], [address] Absolute Lymph 0.93 X10 3/uL Normal 0.83-4.51 [facility] Comment on above: Performed By: #### L 100.0100 ####[facility] [address] [place], [address] Absolute Neut 9.9 X10 3/uL High 2.0-7.7 [facility] Comment on above: Performed By: #### L 100.0100 ####[facility] [address] [place], [address] Lymphocytes (Bld) [#/Vol] 8 10*3/uL Low 19-41 [facility] Comment on above: Performed By: #### L 100.0100 ####[facility] [address] [place], [address] META 1 Normal 0-1 [facility] Comment on above: Performed By: #### L 100.0100 ####[facility] [address] [place], [address] Metamyelocytes/100 WBC (Bld) 1 % High 0-0 [facility] Comment on above: Performed By: #### L 100.0100 ####[facility] [address] [place], [address] MONOCYTE 5 Normal 0-10 [facility] Comment on above: Performed By: #### L 100.0100 ####[facility] [address] [place], [address] SEGS 85 High 47-70 [facility] Comment on above: Performed By: #### L 100.0100 ####[facility] [address] [place], [address] TOTAL CELLS 100 Normal MANUAL DIFF [facility] Comment on above: Performed By: #### L 100.0100 ####[facility] [address] [place], [address] EGD Reporton 07-26-2025 EGD Report Normal [facility] Electrocardiogram reportOrde red By: Mauricio Garcia on 07-26-2025 EKG study [facility] Other Phone: MR/OP.PROVATon 07-26-2025 MR/OP.PROVAT Normal [facility] Partial Thromboplast Timeon 07-26-2025 aPTT Coag (Bld) [Time] 93.9 s Invalid Interpretation Code 24.1-36.2 [facility] Comment on above: Result Comment: CRIT ICAL VALUE CALLED TO JANIA RYANE1 0611 Julia Lee.RESULTS READ BACK BY SAME. Performed By: #### L 300.4310 ####[facility] [address] [place], [address] Surgery Specimen Level Aide 07-26-2025 Surgery Specimen Level IV Normal [facility] Comment on above: Performed By: #### P SUIV ####[facility] [address] [place], [address] Teardrop cell detectionOrder ed By: Kamron Nguyen on 07-26-2025 Dacrocytes LM Ql (Bld) RARE [facility] Assessment of wrist artery p atency prior to arterial punctureOrdered By: Ying Jay on 07-25-2025 Arterial patency Wrist artery --pre arterial puncture Positive [facility] Automated lymphocyte count a s percentage of total leukocytesOrdered By: Georges Duque on 07-25-2025 Lymphocytes/100 WBC Auto (Unsp spec) 3.5 % Low 19-41 [facility] Basophil percentageOrdered B y: Georges Duque on 07-25-2025 Basophils/100 WBC (Bld) 0.1 % 0-1 [facility] Bedside Glucoseon 07-25-2025 FINGERSTICK GLU 141 mg/dL High 74-106 [facility] Comment on above: Result Comment: RANDAL GEMENT OF PATIENT CARE PER NURSING PROTOCOL Performed By: #### L 501.080 ####[facility] [address] [place], [address] FINGERSTICK GLU 156 mg/dL High 74-106 [facility] Comment on above: Result Comment: RANDAL GEMENT OF PATIENT CARE PER NURSING PROTOCOL Performed By: #### L 501.080 ####[facility] [address] [place], [address] FINGERSTICK GLU 157 mg/dL High 74-106 [facility] Comment on above: Result Comment: RANDAL GEMENT OF PATIENT CARE PER NURSING PROTOCOL Performed By: #### L 501.080 ####[facility] [address] [place], [address] Bilirubin, totalOrdered By: Georges Duque on 07-25-2025 Bilirubin [Mass/Vol] 0.19 mg/dL 0.00-1.[address] [facility] Blood Gases by CPSon 025 MIRANDA TEST Positive Normal [facility] Comment on above: Performed By: #### L 9000.0800 ####[facility] [address] [place], [address] Base excess Calc (Bld) [Moles/Vol] -3 mmol/L Low -2 to +2 [facility] Comment on above: Performed By: #### L 9000.0800 ####[facility] [address] [place], [address] Blood Gas Type ART Normal [facility] Comment on above: Performed By: #### L 9000.0800 ####[facility] [address] [place], [address] CO2 [Moles/Vol] 21 mmol/L Normal [facility] Comment on above: Performed By: #### L 9000.0800 ####[facility] [address] [place], [address] FI02 30.0 Normal [facility] Comment on above: Performed By: #### L 9000.0800 ####[facility] [address] [place], [address] HCO3 (Bld) [Moles/Vol] 20.4 mmol/L Low 22-26 [facility] Comment on above: Performed By: #### L 9000.0800 ####[facility] [address] [place], [address] Mode AC Normal [facility] Comment on above: Performed By: #### L 9000.0800 ####[facility] [address] [place], [address] O2 Delivery Dev Adult Vent Normal [facility] Comment on above: Performed By: #### L 9000.0800 ####[facility] [address] [place], [address] pCO2 27.1 mmHg Low 35-45 [facility] Comment on above: Performed By: #### L 9000.0800 ####[facility] [address] [place], [address] PEEP 5 Normal [facility] Comment on above: Performed By: #### L 0.0800 ####[facility] [address] [place], [address] pH (Bld) 7.48 [pH] High 7.35-7.45 [facility] Comment on above: Performed By: #### L 9000.0800 ####[facility] [address] [place], [address] PO2 118 mmHG High 75-100 [facility] Comment on above: Performed By: #### L 0.0800 ####[facility] [address] [place], [address] RR 16 Normal [facility] Comment on above: Performed By: #### L 9000.0800 ####[facility] [address] [place], [address] SITE R Radial Normal [facility] Comment on above: Performed By: #### L 0.0800 ####[facility] [address] [place], [address] SO2 99 Normal 95-99 [facility] Comment on above: Performed By: #### L 0.0800 ####[facility] [address] [place], [address] Vt 400.0 mL Normal [facility] Comment on above: Performed By: #### L 9000.0800 ####[facility] [address] [place], [address] Blood base excess determinat ionOrdered By: Ying Jay on 07-25-2025 Base excess Calc (BldV) [Moles/Vol] -3 mmol/L Low -2-2 [facility] Blood bicarbonate measuremen tOrdered By: Ying Jay on 07-25-2025 HCO3 (Bld) [Moles/Vol] 20.4 mmol/L Low 22-26 [facility] CBC W/Diff, Automatedon 07-13 Absolute Neut Normal 2.0-7.7 [facility] Comment on above: Result Comment: DUPL ICATE- SEE H28 Performed By: #### L 100.0100 ####[facility] [address] [place], [address] HCT Normal 37-47 [facility] Comment on above: Result Comment: DUPL ICATE- SEE H28 Performed By: #### L 100.0100 ####[facility] [address] [place], [address] HGB Normal 12.0-15.0 [facility] Comment on above: Result Comment: DUPL ICATE- SEE H28 Performed By: #### L 100.0100 ####[facility] [address] [place], [address] MCH Normal 27.0-32.0 [facility] Comment on above: Result Comment: DUPL ICATE- SEE H28 Performed By: #### L 100.0100 ####[facility] [address] [place], [address] MCHC Normal 32-36 [facility] Comment on above: Result Comment: DUPL ICATE- SEE H28 Performed By: #### L 100.0100 ####[facility] [address] [place], [address] MCV Normal 81-99 [facility] Comment on above: Result Comment: DUPL ICATE- SEE H28 Performed By: #### L 100.0100 ####[facility] [address] [place], [address] NEUT% Normal 47-70 [facility] Comment on above: Result Comment: DUPL ICATE- SEE H28 Performed By: #### L 100.0100 ####[facility] [address] [place], [address] PLT Normal 150-450 [facility] Comment on above: Result Comment: DUPL ICATE- SEE H28 Performed By: #### L 100.0100 ####[facility] [address] [place], [address] RBC Normal 4.2-5.4 [facility] Comment on above: Result Comment: DUPL ICATE- SEE H28 Performed By: #### L 100.0100 ####[facility] [address] [place], [address] RDW CV Normal 11.6-14.6 [facility] Comment on above: Result Comment: DUPL ICATE- SEE H28 Performed By: #### L 100.0100 ####[facility] [address] [place], [address] RDW SD Normal 35.1-43.9 [facility] Comment on above: Result Comment: DUPL ICATE- SEE H28 Performed By: #### L 100.0100 ####[facility] [address] [place], [address] WBC Normal 4.4-11.0 [facility] Comment on above: Result Comment: DUPL ICATE- SEE H28 Performed By: #### L 100.0100 ####[facility] [address] [place], [address] Absolute Lymph 0.47 X10 3/uL Low 0.83-4.51 [facility] Comment on above: Performed By: #### L 500.4050, L100.0100 ####[facility] [address] [place], [address] Absolute Neut 12.5 X10 3/uL High 2.0-7.7 [facility] Comment on above: Performed By: #### L 500.4050, L100.0100 ####[facility] [address] [place], [address] Basophils/100 WBC (Bld) 0.1 % Normal 0-1 [facility] Comment on above: Performed By: #### L 500.4050, L100.0100 ####[facility] [address] [place], [address] Eosinophils/100 WBC (Bld) 0.0 % Normal 0-5 [facility] Comment on above: Performed By: #### L 500.4050, L100.0100 ####[facility] [address] [place], [address] Erythrocyte distribution width (RBC) [Ratio] 13.5 % Normal 11.6-14.6 [facility] Comment on above: Performed By: #### L 500.4050, L100.0100 ####[facility] [address] [place], [address] Hematocrit (Bld) [Volume fraction] 26.3 % Low 37-47 [facility] Comment on above: Performed By: #### L 500.4050, L100.0100 ####[facility] [address] [place], [address] Hemoglobin (Bld) [Mass/Vol] 8.5 g/dL Low 12.0-15.0 [facility] Comment on above: Performed By: #### L 500.4050, L100.0100 ####[facility] [address] [place], [address] IG% 1.500 High 0.0-0.9 [facility] Comment on above: Result Comment: IG% - Immature Granulocytes (promyelocytes, myelocytes andmetamyelocytes) > 1% indicates that a LEFT SHIFT is Present. Performed By: #### L 500.4050, L100.0100 ####[facility] [address] [place], [address] Lymphocytes/100 WBC (Bld) 3.5 % Low 19-41 [facility] Comment on above: Performed By: #### L 500.4050, L100.0100 ####[facility] [address] [place], [address] MCH (RBC) [Entitic mass] 30.0 pg Normal 27.0-32.0 [facility] Comment on above: Performed By: #### L 500.4050, L100.0100 ####[facility] [address] [place], [address] MCHC (RBC) [Mass/Vol] 32.3 g/dL Normal 32-36 [facility] Comment on above: Performed By: #### L 500.4050, L100.0100 ####[facility] [address] [place], [address] MCV (RBC) [Entitic vol] 92.9 fL Normal 81-99 [facility] Comment on above: Performed By: #### L 500.4050, L100.0100 ####[facility] [address] [place], [address] Monocytes/100 WBC (Bld) 2.4 % Normal 0-10 [facility] Comment on above: Performed By: #### L 500.4050, L100.0100 ####[facility] [address] [place], [address] Neutrophils/100 WBC (Bld) 92.5 % High 47-70 [facility] Comment on above: Performed By: #### L 500.4050, L100.0100 ####[facility] [address] [place], [address] Nucleated RBC (Bld) [#/Vol] 0.1 10*3/uL Normal 0-5 [facility] Comment on above: Performed By: #### L 500.4050, L100.0100 ####[facility] [address] [place], [address] Platelet mean volume (Bld) [Entitic vol] 9.8 fL Normal 6.2-12.0 [facility] Comment on above: Performed By: #### L 500.4050, L100.0100 ####[facility] [address] [place], [address] Platelets (Bld) [#/Vol] 300 10*3/uL Normal 150-450 [facility] Comment on above: Performed By: #### L 500.4050, L100.0100 ####[facility] [address] [place], [address] RBC (Bld) [#/Vol] 2.83 10*6/uL Low 4.2-5.4 [facility] Comment on above: Performed By: #### L 500.4050, L100.0100 ####[facility] [address] [place], [address] RDW SD 46.2 fl High 35.1-43.9 [facility] Comment on above: Performed By: #### L 500.4050, L100.0100 ####[facility] [address] [place], [address] WBC (Bld) [#/Vol] 13.5 10*3/uL High 4.4-11.0 [facility] Comment on above: Performed By: #### L 500.4050, L100.0100 ####[facility] [address] [place], [address] Chest 1 View (Portable)on Chest 1 View (Portable) Normal [facility] Comprehensive Metabolic Prof ilon 07-25-2025 Albumin [Mass/Vol] 2.7 g/dL Low 3.4-4.8 [facility] Comment on above: Performed By: #### L 500.4050, L100.0100 ####[facility] [address] [place], [address] Albumin/Globulin [Mass ratio] 0.8 {ratio} Low 0.9-2.4 [facility] Comment on above: Performed By: #### L 500.4050, L100.0100 ####[facility] [address] [place], [address] ALK PHOS 103 U/L Normal 35-104 [facility] Comment on above: Performed By: #### L 500.4050, L100.0100 ####[facility] [address] [place], [address] ALT [Catalytic activity/Vol] 32 U/L Normal <=34 [facility] Comment on above: Performed By: #### L 500.4050, L100.0100 ####[facility] [address] [place], [address] AST [Catalytic activity/Vol] 34 U/L High <=31 [facility] Comment on above: Performed By: #### L 500.4050, L100.0100 ####[facility] [address] [place], [address] Bilirubin [Mass/Vol] 0.19 mg/dL Normal 0.00-1.[address] [facility] Comment on above: Performed By: #### L 500.4050, L100.0100 ####[facility] [address] [place], [address] BUN/CRE 32.4 RATIO High 10-20 [facility] Comment on above: Performed By: #### L 500.4050, L100.0100 ####[facility] [address] [place], [address] Calcium [Mass/Vol] 8.4 mg/dL Normal 7.6-11.0 [facility] Comment on above: Performed By: #### L 500.4050, L100.0100 ####[facility] [address] [place], [address] Chloride [Moles/Vol] 105 mmol/L Normal 98-[address] [facility] Comment on above: Performed By: #### L 500.4050, L100.0100 ####[facility] [address] [place], [address] CO2 [Moles/Vol] 18.8 mmol/L Low 21.0-32.0 [facility] Comment on above: Performed By: #### L 500.4050, L100.0100 ####[facility] [address] [place], [address] Creatinine [Mass/Vol] 2.48 mg/dL High 0.70-1.20 [facility] Comment on above: Performed By: #### L 500.4050, L100.0100 ####[facility] [address] [place], [address] ECRCL 20.58 ml/min Low 50-250 [facility] Comment on above: Performed By: #### L 500.4050, L100.0100 ####[facility] [address] [place], [address] GAP 13 Normal 5-15 [facility] Comment on above: Performed By: #### L 500.4050, L100.0100 ####[facility] [address] [place], [address] GFR/1.73 sq M.predicted among non-blacks MDRD (S/P/Bld) [Vol rate/Area] 19 mL/min/{1.73_m2} Low >60 [facility] Comment on above: Result Comment: mL/m in/1.73m2 CKD-EPI Creatinine Equation (2020) Performed By: #### L 500.4050, L100.0100 ####[facility] [address] [place], [address] Globulin (S) [Mass/Vol] 3.4 g/dL Normal 2.2-4.2 [facility] Comment on above: Performed By: #### L 500.4050, L100.0100 ####[facility] [address] [place], [address] Glucose [Mass/Vol] 189 mg/dL High 70-99 [facility] Comment on above: Performed By: #### L 500.4050, L100.0100 ####[facility] [address] [place], [address] Potassium [Moles/Vol] 4.7 mmol/L Normal 3.3-5.1 [facility] Comment on above: Result Comment: Hemo lysis present, Results??could be affected.?? Performed By: #### L 500.4050, L100.0100 ####[facility] [address] [place], [address] Sodium [Moles/Vol] 136 mmol/L Normal 133-145 [facility] Comment on above: Performed By: #### L 500.4050, L100.0100 ####[facility] [address] [place], [address] T PROT 6.1 g/dL Normal 5.9-8.4 [facility] Comment on above: Performed By: #### L 500.4050, L100.0100 ####[facility] [address] [place], [address] Urea nitrogen [Mass/Vol] 80 mg/dL High 4-19 [facility] Comment on above: Performed By: #### L 500.4050, L100.0100 ####[facility] [address] [place], [address] Eosinophil percentageOrdered By: Georges Duque on 07-25-2025 Eosinophils/100 WBC (Bld) 0.0 % 0-5 [facility] Immature granulocytes/100 WB C Auto (Bld)Ordered By: Georges Duque on 07-25-2025 Immature granulocytes/100 WBC (Bld) 1.500 % High 0.0-0.9 [facility] Measurement, pHOrdered By: Catia Jay on 07-25-2025 pH (Unsp spec) 7.48 [pH] High 7.35-7.45 [facility] Monocyte percentageOrdered B y: Georges Duque on 07-25-2025 Monocytes/100 WBC (Bld) 2.4 % 0-10 [facility] No Panel InformationOrdered By: Ying Jay on 07-25-2025 ART [facility] R Radial [facility] AC [facility] Adult Vent [facility] 400.0 mL [facility] 16 [facility] 5 [facility] No Panel InformationOrdered By: Georges Duque on 07-25-2025 34 U/L High <32 [facility] Partial Thromboplast Timeon 07-25-2025 aPTT Coag (Bld) [Time] 73.9 s High 24.1-36.2 [facility] Comment on above: Performed By: #### L 300.9450 ####[facility] [address] [place], [address] aPTT Coag (Bld) [Time] 63.1 s High 24.1-36.2 [facility] Comment on above: Performed By: #### L 300.6030 ####[facility] [address] [place], [place], [address] aPTT Coag (Bld) [Time] 99.9 s Invalid Interpretation Code 24.1-36.2 [facility] Comment on above: Result Comment: CRIT ICAL VALUE CALLED TO [id number]/13/25 0206 Kraig Antony Tavares.RESULTS READ BACK BY SAME. Performed By: #### L 056.4314 ####[facility] [address] [place], [place], [address] Serum globulin measurementOr dered By: Georges Duque on 07-25-2025 Globulin (S) [Mass/Vol] 3.4 g/dL 2.2-4.2 [facility] Serum or plasma alanine mcgraw otransferase (ALT) measurementOrdered By: Georges Duque on 07-25-2025 ALT [Catalytic activity/Vol] 32 U/L <35 [facility] Serum or plasma albumin merritt urement (mass/volume)Ordered By: Georges Duque on 07-25-2025 Albumin [Mass/Vol] 2.7 g/dL Low 3.4-4.8 [facility] Serum or plasma albumin/glob ulin mass ratioOrdered By: Georges Duque on 07-25-2025 Albumin/Globulin [Mass ratio] 0.8 {ratio} Low 0.9-2.4 [facility] Serum or plasma alkaline fallon sphatase measurementOrdered By: Georges Duque on 07-25-2025 ALP [Catalytic activity/Vol] 103 U/L 35-104 [facility] Total carbon dioxide measure mentOrdered By: Ying Jay on 07-25-2025 CO2 [Moles/Vol] 21 mmol/L [facility] Total proteinOrdered By: Jose Duque on 07-25-2025 Protein [Mass/Vol] 6.1 g/dL 5.9-8.4 [facility] 12 Lead EKGon 07-24-2025 12 Lead EKG Normal [facility] Bedside Glucoseon 07-24-2025 FINGERSTICK GLU 172 mg/dL High 74-106 [facility] Comment on above: Result Comment: RANDAL CARTER OF PATIENT CARE PER NURSING PROTOCOL Performed By: #### L 501.080 ####[facility] [address] [place], [address] FINGERSTICK GLU 228 mg/dL High 74-106 [facility] Comment on above: Result Comment: RANDAL GEMENT OF PATIENT CARE PER NURSING PROTOCOL Performed By: #### L 501.080 ####[facility] [address] [place], [address] FINGERSTICK GLU 194 mg/dL High 74-106 [facility] Comment on above: Result Comment: RANDAL GEMENT OF PATIENT CARE PER NURSING PROTOCOL Performed By: #### L 501.080 ####[facility] [address] [place], [address] FINGERSTICK GLU 189 mg/dL High 74-106 [facility] Comment on above: Result Comment: RANDAL GEMENT OF PATIENT CARE PER NURSING PROTOCOL Performed By: #### L 501.080 ####[facility] [address] [place], [address] CBC W/Diff, Automatedon 10-1 2-2024 Absolute Lymph 0.32 X10 3/uL Low 0.83-4.51 [facility] Comment on above: Performed By: #### L 100.0100, L100.1300 ####[facility] [address] [place], [address] Absolute Neut 13.8 X10 3/uL High 2.0-7.7 [facility] Comment on above: Performed By: #### L 100.0100, L100.1300 ####[facility] [address] [place], [address] Basophils/100 WBC (Bld) 0.1 % Normal 0-1 [facility] Comment on above: Performed By: #### L 100.0100, L100.1300 ####[facility] [address] [place], [address] Eosinophils/100 WBC (Bld) 0.0 % Normal 0-5 [facility] Comment on above: Performed By: #### L 100.0100, L100.1300 ####[facility] [address] [place], [address] Erythrocyte distribution width (RBC) [Ratio] 13.6 % Normal 11.6-14.6 [facility] Comment on above: Performed By: #### L 100.0100, L100.1300 ####[facility] [address] [place], [address] Hematocrit (Bld) [Volume fraction] 25.6 % Low 37-47 [facility] Comment on above: Performed By: #### L 100.0100, L100.1300 ####[facility] [address] [place], [address] IG% 0.700 Normal 0.0-0.9 [facility] Comment on above: Result Comment: IG% - Immature Granulocytes (promyelocytes, myelocytes andmetamyelocytes) > 1% indicates that a LEFT SHIFT is Present. Performed By: #### L 100.0100, L100.1300 ####[facility] [address] [place], [address] Lymphocytes/100 WBC (Bld) 2.2 % Low 19-41 [facility] Comment on above: Performed By: #### L 100.0100, L100.1300 ####[facility] [address] [place], [address] MCH (RBC) [Entitic mass] 31.6 pg Normal 27.0-32.0 [facility] Comment on above: Performed By: #### L 100.0100, L100.1300 ####[facility] [address] [place], [address] MCHC (RBC) [Mass/Vol] 33.6 g/dL Normal 32-36 [facility] Comment on above: Performed By: #### L 100.0100, L100.1300 ####[facility] [address] [place], [address] MCV (RBC) [Entitic vol] 94.1 fL Normal 81-99 [facility] Comment on above: Performed By: #### L 100.0100, L100.1300 ####[facility] [address] [place], [address] Monocytes/100 WBC (Bld) 2.2 % Normal 0-10 [facility] Comment on above: Performed By: #### L 100.0100, L100.1300 ####[facility] [address] [place], [address] Neutrophils/100 WBC (Bld) 94.8 % High 47-70 [facility] Comment on above: Performed By: #### L 100.0100, L100.1300 ####[facility] [address] [place], [address] Nucleated RBC (Bld) [#/Vol] 0.1 10*3/uL Normal 0-5 [facility] Comment on above: Performed By: #### L 100.0100, L100.1300 ####[facility] [address] [place], [address] Platelet mean volume (Bld) [Entitic vol] 10.1 fL Normal 6.2-12.0 [facility] Comment on above: Performed By: #### L 100.0100, L100.1300 ####[facility] [address] [place], [address] Platelets (Bld) [#/Vol] 267 10*3/uL Normal 150-450 [facility] Comment on above: Performed By: #### L 100.0100, L100.1300 ####[facility] [address] [place], [address] RBC (Bld) [#/Vol] 2.72 10*6/uL Low 4.2-5.4 [facility] Comment on above: Performed By: #### L 100.0100, L100.1300 ####[facility] [address] [place], [address] RDW SD 46.6 fl High 35.1-43.9 [facility] Comment on above: Performed By: #### L 100.0100, L100.1300 ####[facility] [address] [place], [address] WBC (Bld) [#/Vol] 14.6 10*3/uL High 4.4-11.0 [facility] Comment on above: Performed By: #### L 100.0100, L100.1300 ####[facility] [address] [place], [address] Absolute Neut Normal 2.0-7.7 [facility] Comment on above: Order Comment: Comme nts: If not done in prior 24 hours Result Comment: ADDE D TO ORDER 1012 H49 Performed By: #### L 100.0100, L300.4310, L300.3900 ####[facility] [address] [place], [address] HCT Normal 37-47 [facility] Comment on above: Order Comment: Comme nts: If not done in prior 24 hours Result Comment: ADDE D TO ORDER 1012 H49 Performed By: #### L 100.0100, L300.4310, L300.3900 ####[facility] [address] [place], [address] HGB Normal 12.0-15.0 [facility] Comment on above: Order Comment: Comme nts: If not done in prior 24 hours Result Comment: ADDE D TO ORDER 1012 H49 Performed By: #### L 100.0100, L300.4310, L300.3900 ####[facility] [address] [place], [address] MCH Normal 27.0-32.0 [facility] Comment on above: Order Comment: Comme nts: If not done in prior 24 hours Result Comment: ADDE D TO ORDER 1012 H49 Performed By: #### L 100.0100, L300.4310, L300.3900 ####[facility] [address] [place], [address] MCHC Normal 32-36 [facility] Comment on above: Order Comment: Comme nts: If not done in prior 24 hours Result Comment: ADDE D TO ORDER 1012 H49 Performed By: #### L 100.0100, L300.4310, L300.3900 ####[facility] [address] [place], [address] MCV Normal 81-99 [facility] Comment on above: Order Comment: Comme nts: If not done in prior 24 hours Result Comment: ADDE D TO ORDER 1012 H49 Performed By: #### L 100.0100, L300.4310, L300.3900 ####[facility] [address] [place], [address] NEUT% Normal 47-70 [facility] Comment on above: Order Comment: Comme nts: If not done in prior 24 hours Result Comment: ADDE D TO ORDER 1012 H49 Performed By: #### L 100.0100, L300.4310, L300.3900 ####[facility] [address] [place], [address] PLT Normal 150-450 [facility] Comment on above: Order Comment: Comme nts: If not done in prior 24 hours Result Comment: ADDE D TO ORDER 1012 H49 Performed By: #### L 100.0100, L300.4310, L300.3900 ####[facility] [address] [place], [address] RBC Normal 4.2-5.4 [facility] Comment on above: Order Comment: Comme nts: If not done in prior 24 hours Result Comment: ADDE D TO ORDER 1012 H49 Performed By: #### L 100.0100, L300.4310, L300.3900 ####[facility] [address] [place], [address] RDW CV Normal 11.6-14.6 [facility] Comment on above: Order Comment: Comme nts: If not done in prior 24 hours Result Comment: ADDE D TO ORDER 1012 H49 Performed By: #### L 100.0100, L300.4310, L300.3900 ####[facility] [address] [place], [address] RDW SD Normal 35.1-43.9 [facility] Comment on above: Order Comment: Comme nts: If not done in prior 24 hours Result Comment: ADDE D TO ORDER 1012 H49 Performed By: #### L 100.0100, L300.4310, L300.3900 ####[facility] [address] [place], [address] WBC Normal 4.4-11.0 [facility] Comment on above: Order Comment: Comme nts: If not done in prior 24 hours Result Comment: ADDE D TO ORDER 1012 H49 Performed By: #### L 100.0100, L300.4310, L300.3900 ####[facility] [address] [place], [address] Absolute Lymph 0.30 X10 3/uL Low 0.83-4.51 [facility] Comment on above: Performed By: #### L 501.2300, L501.5200, L500.4050, L100.0100 ####[facility] [address] [place], [address] Absolute Neut 14.3 X10 3/uL High 2.0-7.7 [facility] Comment on above: Performed By: #### L 501.2300, L501.5200, L500.4050, L100.0100 ####[facility] [address] [place], [address] Basophils/100 WBC (Bld) 0.1 % Normal 0-1 [facility] Comment on above: Performed By: #### L 501.2300, L501.5200, L500.4050, L100.0100 ####[facility] [address] [place], [address] Eosinophils/100 WBC (Bld) 0.0 % Normal 0-5 [facility] Comment on above: Performed By: #### L 501.2300, L501.5200, L500.4050, L100.0100 ####[facility] [address] [place], [address] Erythrocyte distribution width (RBC) [Ratio] 13.4 % Normal 11.6-14.6 [facility] Comment on above: Performed By: #### L 501.2300, L501.5200, L500.4050, L100.0100 ####[facility] [address] [place], [address] Hematocrit (Bld) [Volume fraction] 25.1 % Low 37-47 [facility] Comment on above: Performed By: #### L 501.2300, L501.5200, L500.4050, L100.0100 ####[facility] [address] [place], [address] Hemoglobin (Bld) [Mass/Vol] 8.2 g/dL Low 12.0-15.0 [facility] Comment on above: Performed By: #### L 501.2300, L501.5200, L500.4050, L100.0100 ####[facility] [address] [place], [address] IG% 1.100 High 0.0-0.9 [facility] Comment on above: Result Comment: IG% - Immature Granulocytes (promyelocytes, myelocytes andmetamyelocytes) > 1% indicates that a LEFT SHIFT is Present. Performed By: #### L 501.2300, L501.5200, L500.4050, L100.0100 ####[facility] [address] [place], [address] Lymphocytes/100 WBC (Bld) 2.0 % Low 19-41 [facility] Comment on above: Performed By: #### L 501.2300, L501.5200, L500.4050, L100.0100 ####[facility] [address] [place], [address] MCH (RBC) [Entitic mass] 30.4 pg Normal 27.0-32.0 [facility] Comment on above: Performed By: #### L 501.2300, L501.5200, L500.4050, L100.0100 ####[facility] [address] [place], [address] MCHC (RBC) [Mass/Vol] 32.7 g/dL Normal 32-36 [facility] Comment on above: Performed By: #### L 501.2300, L501.5200, L500.4050, L100.0100 ####[facility] [address] [place], [address] MCV (RBC) [Entitic vol] 93.0 fL Normal 81-99 [facility] Comment on above: Performed By: #### L 501.2300, L501.5200, L500.4050, L100.0100 ####[facility] [address] [place], [address] Monocytes/100 WBC (Bld) 2.5 % Normal 0-10 [facility] Comment on above: Performed By: #### L 501.2300, L501.5200, L500.4050, L100.0100 ####[facility] [address] [place], [address] Neutrophils/100 WBC (Bld) 94.3 % High 47-70 [facility] Comment on above: Performed By: #### L 501.2300, L501.5200, L500.4050, L100.0100 ####[facility] [address] [place], [address] Nucleated RBC (Bld) [#/Vol] 0 10*3/uL Normal 0-5 [facility] Comment on above: Performed By: #### L 501.2300, L501.5200, L500.4050, L100.0100 ####[facility] [address] [place], [address] Platelet mean volume (Bld) [Entitic vol] 9.7 fL Normal 6.2-12.0 [facility] Comment on above: Performed By: #### L 501.2300, L501.5200, L500.4050, L100.0100 ####[facility] [address] [place], [address] Platelets (Bld) [#/Vol] 254 10*3/uL Normal 150-450 [facility] Comment on above: Performed By: #### L 501.2300, L501.5200, L500.4050, L100.0100 ####[facility] [address] [place], [address] RBC (Bld) [#/Vol] 2.70 10*6/uL Low 4.2-5.4 [facility] Comment on above: Performed By: #### L 501.2300, L501.5200, L500.4050, L100.0100 ####[facility] [address] [place], [address] RDW SD 45.9 fl High 35.1-43.9 [facility] Comment on above: Performed By: #### L 501.2300, L501.5200, L500.4050, L100.0100 ####[facility] [address] [place], [address] WBC (Bld) [#/Vol] 15.2 10*3/uL High 4.4-11.0 [facility] Comment on above: Performed By: #### L 501.2300, L501.5200, L500.4050, L100.0100 ####[facility] [address] [place], [address] Comprehensive Metabolic Prof il 07-24-2025 Albumin [Mass/Vol] 2.7 g/dL Low 3.4-4.8 [facility] Comment on above: Performed By: #### L 501.2300, L501.5200, L500.4050, L100.0100 ####[facility] [address] [place], [address] Albumin/Globulin [Mass ratio] 0.8 {ratio} Low 0.9-2.4 [facility] Comment on above: Performed By: #### L 501.2300, L501.5200, L500.4050, L100.0100 ####[facility] [address] [place], [address] ALK PHOS 101 U/L Normal 35-104 [facility] Comment on above: Performed By: #### L 501.2300, L501.5200, L500.4050, L100.0100 ####[facility] [address] [place], [address] ALT [Catalytic activity/Vol] 39 U/L High <=34 [facility] Comment on above: Performed By: #### L 501.2300, L501.5200, L500.4050, L100.0100 ####[facility] [address] [place], [address] AST [Catalytic activity/Vol] 56 U/L High <=31 [facility] Comment on above: Performed By: #### L 501.2300, L501.5200, L500.4050, L100.0100 ####[facility] [address] [place], [address] Bilirubin [Mass/Vol] 0.20 mg/dL Normal 0.00-1.[address] [facility] Comment on above: Performed By: #### L 501.2300, L501.5200, L500.4050, L100.0100 ####[facility] [address] [place], [address] BUN/CRE 27.3 RATIO High 10-20 [facility] Comment on above: Performed By: #### L 501.2300, L501.5200, L500.4050, L100.0100 ####[facility] [address] [place], [address] Calcium [Mass/Vol] 8.5 mg/dL Normal 7.6-11.0 [facility] Comment on above: Performed By: #### L 501.2300, L501.5200, L500.4050, L100.0100 ####[facility] [address] [place], [address] Chloride [Moles/Vol] 104 mmol/L Normal 98-[address] [facility] Comment on above: Performed By: #### L 501.2300, L501.5200, L500.4050, L100.0100 ####[facility] [address] [place], [address] CO2 [Moles/Vol] 17.5 mmol/L Low 21.0-32.0 [facility] Comment on above: Performed By: #### L 501.2300, L501.5200, L500.4050, L100.0100 ####[facility] [address] [place], [address] Creatinine [Mass/Vol] 2.57 mg/dL High 0.70-1.20 [facility] Comment on above: Performed By: #### L 501.2300, L501.5200, L500.4050, L100.0100 ####[facility] [address] [place], [address] ECRCL 19.66 ml/min Low 50-250 [facility] Comment on above: Performed By: #### L 501.2300, L501.5200, L500.4050, L100.0100 ####[facility] [address] [place], [address] GAP 16 High 5-15 [facility] Comment on above: Performed By: #### L 501.2300, L501.5200, L500.4050, L100.0100 ####[facility] [address] [place], [address] GFR/1.73 sq M.predicted among non-blacks MDRD (S/P/Bld) [Vol rate/Area] 18 mL/min/{1.73_m2} Low >60 [facility] Comment on above: Result Comment: mL/m in/1.73m2 CKD-EPI Creatinine Equation (2020) Performed By: #### L 501.2300, L501.5200, L500.4050, L100.0100 ####[facility] [address] [place], [address] Globulin (S) [Mass/Vol] 3.5 g/dL Normal 2.2-4.2 [facility] Comment on above: Performed By: #### L 501.2300, L501.5200, L500.4050, L100.0100 ####[facility] [address] [place], [address] Glucose [Mass/Vol] 241 mg/dL High 70-99 [facility] Comment on above: Performed By: #### L 501.2300, L501.5200, L500.4050, L100.0100 ####[facility] [address] [place], [address] Potassium [Moles/Vol] 4.4 mmol/L Normal 3.3-5.1 [facility] Comment on above: Performed By: #### L 501.2300, L501.5200, L500.4050, L100.0100 ####[facility] [address] [place], [address] Sodium [Moles/Vol] 137 mmol/L Normal 133-145 [facility] Comment on above: Performed By: #### L 501.2300, L501.5200, L500.4050, L100.0100 ####[facility] [address] [place], [address] T PROT 6.2 g/dL Normal 5.9-8.4 [facility] Comment on above: Performed By: #### L 501.2300, L501.5200, L500.4050, L100.0100 ####[facility] [address] [place], [address] Urea nitrogen [Mass/Vol] 70 mg/dL High 4-19 [facility] Comment on above: Performed By: #### L 501.2300, L501.5200, L500.4050, L100.0100 ####[facility] [address] [place], [address] Hemoglobinon 07-24-2025 Hemoglobin (Bld) [Mass/Vol] 8.5 g/dL Low 12.0-15.0 [facility] Comment on above: Performed By: #### L 100.0100, L100.1300 ####[facility] [address] [place], [address] Magnesiumon 07-24-2025 Magnesium [Mass/Vol] 1.9 mg/dL Normal 1.5-2.[address] [facility] Comment on above: Performed By: #### L 501.2300, L501.5200, L500.4050, L100.0100 ####[facility] [address] [place], [address] Magnesium measurement (mass/ volume)Ordered By: Ying Jay on 07-24-2025 Magnesium (Unsp spec) [Mass/Vol] 1.9 mg/dL 1.5-2.2 [facility] Partial Thromboplast Timeon 07-24-2025 aPTT Coag (Bld) [Time] 144.6 s Invalid Interpretation Code 24.1-36.2 [facility] Comment on above: Result Comment: CRIT ICAL VALUE CALLED TO MISAEL CORREIA07/24/252014 Lisy Dunn.RESULTS READ BACK BY SAME. Performed By: #### L 300.4310 ####[facility] [address] [place], [address] aPTT Coag (Bld) [Time] 28.4 s Normal 24.1-36.2 [facility] Comment on above: Order Comment: Comme nts: If not done in prior 24 hours Performed By: #### L 100.0100, L300.4310, L300.3900 ####[facility] [address] [place], [address] Phosphoruson 07-24-2025 Phosphate [Mass/Vol] 5.0 mg/dL High 2.7-4.[address] [facility] Comment on above: Performed By: #### L 501.2300, L501.5200, L500.4050, L100.0100 ####[facility] [address] [place], [address] Prothrombin Time w/INRon INR Coag (PPP) [Relative time] 1.1 {INR} Normal [facility] Comment on above: Order Comment: Comme nts: If not done in prior 24 hours Performed By: #### L 100.0100, L300.4310, L300.3900 ####[facility] [address] [place], [address] PT Coag (PPP) [Time] 14.7 s Normal 11.7-14.[address] [facility] Comment on above: Order Comment: Comme nts: If not done in prior 24 hours Performed By: #### L 100.0100, L300.4310, L300.3900 ####[facility] [address] [place], [address] Prothrombin timeOrdered By: Ying Jay on 07-24-2025 PT Coag (PPP) [Time] 14.7 s 11.7-14.[address] [facility] Basic Metabolic Profile (BMP )on 07-23-2025 BUN/CRE 26.7 RATIO High 08-01 [facility] Comment on above: Performed By: #### L 100.0500, L500.2500 ####[facility] [address] [place], [address] Calcium [Mass/Vol] 8.7 mg/dL Normal 7.6-11.0 [facility] Comment on above: Performed By: #### L 100.0500, L500.2500 ####[facility] [address] [place], [address] Chloride [Moles/Vol] 100 mmol/L Normal 98-[address] [facility] Comment on above: Performed By: #### L 100.0500, L500.2500 ####[facility] [address] [place], [address] CO2 [Moles/Vol] 17.6 mmol/L Low 21.0-32.0 [facility] Comment on above: Performed By: #### L 100.0500, L500.2500 ####[facility] [address] [place], [address] Creatinine [Mass/Vol] 2.18 mg/dL High 0.70-1.20 [facility] Comment on above: Performed By: #### L 100.0500, L500.2500 ####[facility] [address] [place], [address] ECRCL 23.18 ml/min Low 50-250 [facility] Comment on above: Performed By: #### L 100.0500, L500.2500 ####[facility] [address] [place], [address] GAP 16 High 5-15 [facility] Comment on above: Performed By: #### L 100.0500, L500.2500 ####[facility] [address] [place], [address] GFR/1.73 sq M.predicted among non-blacks MDRD (S/P/Bld) [Vol rate/Area] 22 mL/min/{1.73_m2} Low >60 [facility] Comment on above: Result Comment: mL/m in/1.73m2 CKD-EPI Creatinine Equation (2020) Performed By: #### L 100.0500, L500.2500 ####[facility] [address] [place], [address] Glucose [Mass/Vol] 362 mg/dL High 70-99 [facility] Comment on above: Performed By: #### L 100.0500, L500.2500 ####[facility] [address] [place], [address] Potassium [Moles/Vol] 5.0 mmol/L Normal 3.3-5.1 [facility] Comment on above: Performed By: #### L 100.0500, L500.2500 ####[facility] [address] [place], [address] Sodium [Moles/Vol] 134 mmol/L Normal 133-145 [facility] Comment on above: Performed By: #### L 100.0500, L500.2500 ####[facility] [address] [place], [address] Urea nitrogen [Mass/Vol] 58 mg/dL High 4-19 [facility] Comment on above: Performed By: #### L 100.0500, L500.2500 ####[facility] [address] [place], [address] Bedside Glucoseon 07-23-2025 FINGERSTICK GLU 276 mg/dL High 74-106 [facility] Comment on above: Result Comment: RANDAL GEMENT OF PATIENT CARE PER NURSING PROTOCOL Performed By: #### L 501.080 ####[facility] [address] [place], [address] FINGERSTICK GLU 246 mg/dL High 74-106 [facility] Comment on above: Result Comment: RANDAL GEMENT OF PATIENT CARE PER NURSING PROTOCOL Performed By: #### L 501.080 ####[facility] [address] [place], [address] FINGERSTICK GLU 313 mg/dL High 74-106 [facility] Comment on above: Result Comment: RANDAL GEMENT OF PATIENT CARE PER NURSING PROTOCOL Performed By: #### L 501.080 ####[facility] [address] [place], [address] FINGERSTICK GLU 320 mg/dL High 74-106 [facility] Comment on above: Result Comment: RANDAL GEMENT OF PATIENT CARE PER NURSING PROTOCOL Performed By: #### L 501.080 ####[facility] [address] [place], [address] Blood Gases by [facility] 025 Base excess Calc (Bld) [Moles/Vol] -4 mmol/L Low -2 to +2 [facility] Comment on above: Performed By: #### L 9000.0800 ####[facility] [address] [place], [address] Blood Gas Type ART Normal [facility] Comment on above: Performed By: #### L 9000.0800 ####[facility] [address] [place], [address] CO2 [Moles/Vol] 23 mmol/L Normal [facility] Comment on above: Performed By: #### L 9000.0800 ####[facility] [address] [place], [address] FI02 30.0 Normal [facility] Comment on above: Performed By: #### L 9000.0800 ####[facility] [address] [place], [address] HCO3 (Bld) [Moles/Vol] 22.0 mmol/L Normal 22-26 [facility] Comment on above: Performed By: #### L 9000.0800 ####[facility] [address] [place], [address] Mode AC Normal [facility] Comment on above: Performed By: #### L 9000.0800 ####[facility] [address] [place], [address] O2 Delivery Dev Adult Vent Normal [facility] Comment on above: Performed By: #### L 900.0800 ####[facility] [address] [place], [address] pCO2 39.2 mmHg Normal 35-45 [facility] Comment on above: Performed By: #### L 0.0800 ####[facility] [address] [place], [address] PEEP 5 Normal [facility] Comment on above: Performed By: #### L 9000.0800 ####[facility] [address] [place], [address] pH (Bld) 7.36 [pH] Normal 7.35-7.45 [facility] Comment on above: Performed By: #### L 9000.0800 ####[facility] [address] [place], [address] PO2 84 mmHG Normal 75-100 [facility] Comment on above: Performed By: #### L 9000.0800 ####[facility] [address] [place], [address] RR 16 Normal [facility] Comment on above: Performed By: #### L 9000.0800 ####[facility] [address] [place], [address] SITE L Radial Normal [facility] Comment on above: Performed By: #### L 9000.0800 ####[facility] [address] [place], [address] SO2 96 Normal 95-99 [facility] Comment on above: Performed By: #### L 9000.0800 ####[facility] [address] [place], [address] Vt 400.0 mL Normal [facility] Comment on above: Performed By: #### L 9000.0800 ####[facility] [address] [place], [address] CBC-Complete Blood Cnt No Di ffon 07-23-2025 Erythrocyte distribution width (RBC) [Ratio] 13.5 % Normal 11.6-14.6 [facility] Comment on above: Performed By: #### L 100.0500, L500.2500 ####[facility] [address] [place], [address] Hematocrit (Bld) [Volume fraction] 29.4 % Low 37-47 [facility] Comment on above: Performed By: #### L 100.0500, L500.2500 ####[facility] [address] [place], [address] Hemoglobin (Bld) [Mass/Vol] 9.4 g/dL Low 12.0-15.0 [facility] Comment on above: Performed By: #### L 100.0500, L500.2500 ####[facility] [address] [place], [address] MCH (RBC) [Entitic mass] 30.4 pg Normal 27.0-32.0 [facility] Comment on above: Performed By: #### L 100.0500, L500.2500 ####[facility] [address] [place], [address] MCHC (RBC) [Mass/Vol] 32.0 g/dL Normal 32-36 [facility] Comment on above: Performed By: #### L 100.0500, L500.2500 ####[facility] [address] [place], [address] MCV (RBC) [Entitic vol] 95.1 fL Normal 81-99 [facility] Comment on above: Performed By: #### L 100.0500, L500.2500 ####[facility] [address] [place], [address] Platelet mean volume (Bld) [Entitic vol] 9.6 fL Normal 6.2-12.0 [facility] Comment on above: Performed By: #### L 100.0500, L500.2500 ####[facility] [address] [place], [address] Platelets (Bld) [#/Vol] 254 10*3/uL Normal 150-450 [facility] Comment on above: Performed By: #### L 100.0500, L500.2500 ####[facility] [address] [place], [address] RBC (Bld) [#/Vol] 3.09 10*6/uL Low 4.2-5.4 [facility] Comment on above: Performed By: #### L 100.0500, L500.2500 ####[facility] [address] [place], [address] RDW SD 46.9 fl High 35.1-43.9 [facility] Comment on above: Performed By: #### L 100.0500, L500.2500 ####[facility] [address] [place], [address] WBC (Bld) [#/Vol] 15.9 10*3/uL High 4.4-11.0 [facility] Comment on above: Performed By: #### L 100.0500, L500.2500 ####[facility] [address] [place], [address] CPK Total, Creatine Kinaseon 07-23-2025 CPK TOTAL 33 U/L Normal 24-195 [facility] Comment on above: Order Comment: Comme nts: DC when propofol is d/c'd Performed By: #### L 501.5000, L501.3620 ####[facility] [address] [place], [address] Consultation - Intensiviston 07-23-2025 Consultation - Integrated Pest Management Technician Normal [facility] Echocardiogram study reportO rdered By: Andreina Guardado on 07-23-2025 Study report [facility] Work Phone: Kidney and Bladderon 025 Kidney and Bladder Normal [facility] RESPIRATORY PANEL MOLECULARo n 07-23-2025 RP PANEL Normal [facility] Comment on above: Performed By: #### M 100.638 ####[facility] [address] [place], [address] Respiratory Cultureon 2024 RESPC Mixed normal respiratory michelle. No Streptococcus pneumoniae, beta-hemolytic Streptococcus or Staphylococcus aureus isolated. Normal [facility] Comment on above: Performed By: #### M 100.2400, M100.2000 ####[facility] [address] [place], [address] Serum or plasma creatine kin ase activityOrdered By: Antoni Argueta on 07-23-2025 CK [Catalytic activity/Vol] 33 U/L 24-195 [facility] Triglycerideson 07-23-2025 Triglyceride [Mass/Vol] 78 mg/dL Normal [facility] Comment on above: Order Comment: Comme nts: DC when propofol is d/c'dDC when propofol is d/c'd Result Comment: The drugs N-Acetylcysteine and Metamizole may falselydepress this assay.Normal range: <150 mg/dLBorderline High: 150-199 mg/dLHigh: 200-499 mg/dLVery High: >500 mg/dL Performed By: #### L 501.5000, L501.3620 ####[facility] [address] [place], [address] Urine Cultureon 07-23-2025 URC Culture exhibits no growth. Normal [facility] Comment on above: Performed By: #### M 100.2200 ####[facility] [address] [place], [address] Bilirubin Test strip Ql (U)O rdered By: Dulce Maria Raymond on 2025 Bilirubin Ql (U) Negative Negative [facility] Blood Gases by CPSon 025 MIRANDA TEST N/A Normal [facility] Comment on above: Performed By: #### L 9000.0800 ####[facility] [address] [place], [address] Base excess Calc (Bld) [Moles/Vol] -4 mmol/L Low -2 to +2 [facility] Comment on above: Performed By: #### L 9000.0800 ####[facility] [address] [place], [address] Blood Gas Type ART Normal [facility] Comment on above: Performed By: #### L 9000.0800 ####[facility] [address] [place], [address] CO2 [Moles/Vol] 21 mmol/L Normal [facility] Comment on above: Performed By: #### L 9000.0800 ####[facility] [address] [place], [address] FI02 50.0 Normal [facility] Comment on above: Performed By: #### L 9000.0800 ####[facility] [address] [place], [address] HCO3 (Bld) [Moles/Vol] 20.4 mmol/L Low 22-26 [facility] Comment on above: Performed By: #### L 9000.0800 ####[facility] [address] [place], [address] Mode AC Normal [facility] Comment on above: Performed By: #### L 9000.0800 ####[facility] [address] [place], [address] O2 Delivery Dev Adult Vent Normal [facility] Comment on above: Performed By: #### L 9000.0800 ####[facility] [address] [place], [address] pCO2 32.4 mmHg Low 35-45 [facility] Comment on above: Performed By: #### L 9000.0800 ####[facility] [address] [place], [address] PEEP 10 Normal [facility] Comment on above: Performed By: #### L 9000.0800 ####[facility] [address] [place], [address] pH (Bld) 7.41 [pH] Normal 7.35-7.45 [facility] Comment on above: Performed By: #### L 9000.0800 ####[facility] [address] [place], [address] PO2 151 mmHG High 75-100 [facility] Comment on above: Performed By: #### L 9000.0800 ####[facility] [address] [place], [address] RR 16 Normal [facility] Comment on above: Performed By: #### L 9000.0800 ####[facility] [address] [place], [address] SITE L Radial Normal [facility] Comment on above: Performed By: #### L 0.0800 ####[facility] [address] [place], [address] SO2 99 Normal 95-99 [facility] Comment on above: Performed By: #### L 0.0800 ####[facility] [address] [place], [address] Vt 400.0 mL Normal [facility] Comment on above: Performed By: #### L 0.0800 ####[facility] [address] [place], [address] RAYMOND [facility] Comment on above: Performed By: #### L 9000.0800 ####[facility] [address] [place], [address] Base excess Calc (Bld) [Moles/Vol] -6 mmol/L Low -2 to +2 [facility] Comment on above: Performed By: #### L 8999.0800 ####[facility] [address] [place], [address] Blood Gas Type ART Normal [facility] Comment on above: Performed By: #### L 8999.08 ####[facility] [address] [place], [address] CO2 [Moles/Vol] 21 mmol/L Normal [facility] Comment on above: Performed By: #### L 8999.08 ####[facility] [address] [place], [address] Comment 15 6 Normal [facility] Comment on above: Performed By: #### L 8999.08 ####[facility] [address] [place], [address] FI02 40.0 Normal [facility] Comment on above: Performed By: #### L 8999.08 ####[facility] [address] [place], [address] HCO3 (Bld) [Moles/Vol] 20.0 mmol/L Low 22-26 [facility] Comment on above: Performed By: #### L 8999.0800 ####[facility] [address] [place], [address] Mode Not entered Normal [facility] Comment on above: Performed By: #### L 8999.08 ####[facility] [address] [place], [address] O2 Delivery Dev BiPAP Normal [facility] Comment on above: Performed By: #### L 8999.0800 ####[facility] [address] [place], [address] pCO2 39.6 mmHg Normal 35-45 [facility] Comment on above: Performed By: #### L 8999.0800 ####[facility] [address] [place], [address] pH (Bld) 7.31 [pH] Low 7.35-7.45 [facility] Comment on above: Performed By: #### L 9000.0800 ####[facility] [address] [place], [address] PO2 82 mmHG Normal 75-100 [facility] Comment on above: Performed By: #### L 9000.0800 ####[facility] [address] [place], [address] SITE R Brach Normal [facility] Comment on above: Performed By: #### L 9000.0800 ####[facility] [address] [place], [address] SO2 95 Normal 95-99 [facility] Comment on above: Performed By: #### L 9000.0800 ####[facility] [address] [place], [address] Blood cultureOrdered By: Chinyere Raymond on 2025 Bacteria identified Cx Nom (Bld) No growth in 5 days. [facility] CBC W/Diff, Automatedon 07-13 Absolute Lymph 0.75 X10 3/uL Low 0.83-4.51 [facility] Comment on above: Performed By: #### L 500.4050, L100.0100 ####[facility] [address] [place], [address] Absolute Neut 14.8 X10 3/uL High 2.0-7.7 [facility] Comment on above: Performed By: #### L 500.4050, L100.0100 ####[facility] [address] [place], [address] Basophils/100 WBC (Bld) 0.2 % Normal 0-1 [facility] Comment on above: Performed By: #### L 500.4050, L100.0100 ####[facility] [address] [place], [address] Eosinophils/100 WBC (Bld) 0.4 % Normal 0-5 [facility] Comment on above: Performed By: #### L 500.4050, L100.0100 ####[facility] [address] [place], [address] Erythrocyte distribution width (RBC) [Ratio] 13.5 % Normal 11.6-14.6 [facility] Comment on above: Performed By: #### L 500.4050, L100.0100 ####[facility] [address] [place], [address] Hematocrit (Bld) [Volume fraction] 28.8 % Low 37-47 [facility] Comment on above: Performed By: #### L 500.4050, L100.0100 ####[facility] [address] [place], [address] Hemoglobin (Bld) [Mass/Vol] 9.1 g/dL Low 12.0-15.0 [facility] Comment on above: Performed By: #### L 500.4050, L100.0100 ####[facility] [address] [place], [address] IG% 1.000 High 0.0-0.9 [facility] Comment on above: Result Comment: IG% - Immature Granulocytes (promyelocytes, myelocytes andmetamyelocytes) > 1% indicates that a LEFT SHIFT is Present. Performed By: #### L 500.4050, L100.0100 ####[facility] [address] [place], [address] Lymphocytes/100 WBC (Bld) 4.4 % Low 19-41 [facility] Comment on above: Performed By: #### L 500.4050, L100.0100 ####[facility] [address] [place], [address] MCH (RBC) [Entitic mass] 31.4 pg Normal 27.0-32.0 [facility] Comment on above: Performed By: #### L 500.4050, L100.0100 ####[facility] [address] [place], [address] MCHC (RBC) [Mass/Vol] 31.6 g/dL Low 32-36 [facility] Comment on above: Performed By: #### L 500.4050, L100.0100 ####[facility] [address] [place], [address] MCV (RBC) [Entitic vol] 99.3 fL High 81-99 [facility] Comment on above: Performed By: #### L 500.4050, L100.0100 ####[facility] [address] [place], [address] Monocytes/100 WBC (Bld) 6.7 % Normal 0-10 [facility] Comment on above: Performed By: #### L 500.4050, L100.0100 ####[facility] [address] [place], [address] Neutrophils/100 WBC (Bld) 87.3 % High 47-70 [facility] Comment on above: Performed By: #### L 500.4050, L100.0100 ####[facility] [address] [place], [address] Nucleated RBC (Bld) [#/Vol] 0 10*3/uL Normal 0-5 [facility] Comment on above: Performed By: #### L 500.4050, L100.0100 ####[facility] [address] [place], [address] Platelet mean volume (Bld) [Entitic vol] 9.4 fL Normal 6.2-12.0 [facility] Comment on above: Performed By: #### L 500.4050, L100.0100 ####[facility] [address] [place], [address] Platelets (Bld) [#/Vol] 230 10*3/uL Normal 150-450 [facility] Comment on above: Performed By: #### L 500.4050, L100.0100 ####[facility] [address] [place], [address] RBC (Bld) [#/Vol] 2.90 10*6/uL Low 4.2-5.4 [facility] Comment on above: Performed By: #### L 500.4050, L100.0100 ####[facility] [address] [place], [address] RDW SD 49.3 fl High 35.1-43.9 [facility] Comment on above: Performed By: #### L 500.4050, L100.0100 ####[facility] [address] [place], [address] WBC (Bld) [#/Vol] 17.0 10*3/uL High 4.4-11.0 [facility] Comment on above: Performed By: #### L 500.4050, L100.0100 ####[facility] [address] [place], [address] CTA Chest W/WO Contraston CTA Chest W/WO Contrast Normal [facility] Chest 1 View (Portable)on Chest 1 View (Portable) Normal [facility] Chest 1 View (Portable) Normal [facility] Chest 1 View (Portable) Normal [facility] Comprehensive Metabolic Prof ilon 2025 Albumin [Mass/Vol] 3.3 g/dL Low 3.4-4.8 [facility] Comment on above: Performed By: #### L 500.4050, L100.0100 ####[facility] [address] [place], [address] Albumin/Globulin [Mass ratio] 0.8 {ratio} Low 0.9-2.4 [facility] Comment on above: Performed By: #### L 500.4050, L100.0100 ####[facility] [address] [place], [address] ALK PHOS 132 U/L High 35-104 [facility] Comment on above: Performed By: #### L 500.4050, L100.0100 ####[facility] [address] [place], [address] ALT [Catalytic activity/Vol] 30 U/L Normal <=34 [facility] Comment on above: Performed By: #### L 500.4050, L100.0100 ####[facility] [address] [place], [address] AST [Catalytic activity/Vol] 55 U/L High <=31 [facility] Comment on above: Performed By: #### L 500.4050, L100.0100 ####[facility] [address] [place], [address] Bilirubin [Mass/Vol] 0.40 mg/dL Normal 0.00-1.[address] [facility] Comment on above: Performed By: #### L 500.4050, L100.0100 ####[facility] [address] [place], [address] BUN/CRE 24.5 RATIO High 10-20 [facility] Comment on above: Performed By: #### L 500.4050, L100.0100 ####[facility] [address] [place], [address] Calcium [Mass/Vol] 8.6 mg/dL Normal 7.6-11.0 [facility] Comment on above: Performed By: #### L 500.4050, L100.0100 ####[facility] [address] [place], [address] Chloride [Moles/Vol] 102 mmol/L Normal 98-[address] [facility] Comment on above: Performed By: #### L 500.4050, L100.0100 ####[facility] [address] [place], [address] CO2 [Moles/Vol] 19.0 mmol/L Low 21.0-32.0 [facility] Comment on above: Performed By: #### L 500.4050, L100.0100 ####[facility] [address] [place], [address] Creatinine [Mass/Vol] 2.04 mg/dL High 0.70-1.20 [facility] Comment on above: Performed By: #### L 500.4050, L100.0100 ####[facility] [address] [place], [address] ECRCL 24.23 ml/min Low 50-250 [facility] Comment on above: Performed By: #### L 500.4050, L100.0100 ####[facility] [address] [place], [address] GAP 12 Normal 5-15 [facility] Comment on above: Performed By: #### L 500.4050, L100.0100 ####[facility] [address] [place], [address] GFR/1.73 sq M.predicted among non-blacks MDRD (S/P/Bld) [Vol rate/Area] 24 mL/min/{1.73_m2} Low >60 [facility] Comment on above: Result Comment: mL/m in/1.73m2 CKD-EPI Creatinine Equation (2020) Performed By: #### L 500.4050, L100.0100 ####[facility] [address] [place], [address] Globulin (S) [Mass/Vol] 3.9 g/dL Normal 2.2-4.2 [facility] Comment on above: Performed By: #### L 500.4050, L100.0100 ####[facility] [address] [place], [address] Glucose [Mass/Vol] 232 mg/dL High 70-99 [facility] Comment on above: Performed By: #### L 500.4050, L100.0100 ####[facility] [address] [place], [address] Potassium [Moles/Vol] 5.4 mmol/L High 3.3-5.1 [facility] Comment on above: Performed By: #### L 500.4050, L100.0100 ####[facility] [address] [place], [address] Sodium [Moles/Vol] 133 mmol/L Normal 133-145 [facility] Comment on above: Performed By: #### L 500.4050, L100.0100 ####[facility] [address] [place], [address] T PROT 7.1 g/dL Normal 5.9-8.4 [facility] Comment on above: Performed By: #### L 500.4050, L100.0100 ####[facility] [address] [place], [address] Urea nitrogen [Mass/Vol] 50 mg/dL High 4-19 [facility] Comment on above: Performed By: #### L 500.4050, L100.0100 ####[facility] [address] [place], [address] Echo Complete W/ Contraston 2025 Echo Complete W/ Contrast Normal [facility] Emergency Department Summary on 2025 Emergency Department Summary Normal [facility] Gram stainOrdered By: Keturah Luis on 2025 Microscopic observation Gram stain Nom (Unsp spec) [facility] H AND P Exam - Hospitaliston 2025 H&P Exam - Hospitalist Normal [facility] Hemoglobin A1con 2025 HbA1c (Bld) [Mass fraction] 6.4 % High <=5.6 [facility] Comment on above: Result Comment: Norm al < 5.7 % Prediabetic 5.7 - 6.4 % Diabetic >or= 6.5 % Please note range changes. Performed By: #### L 501.9972 ####[facility] [address] [place], [place], [address] Hemoglobin A1c percentageOrd ered By: Antoni Argueta on 2025 HbA1c (Bld) [Mass fraction] 6.4 % High <5.7 [facility] Influenza virus A and B and SARS-CoV-2 (COVID-19) and Respiratory syncytial virus RNAOrdered By: Dulce Maria Raymond on 2025 SARS-CoV-2 (COVID-19) RNA KISHORE+probe Ql (Unsp spec) [facility] Ketones Test strip Ql (U)Ord ered By: Dulce Maria Raymond on 2025 Ketones Ql (U) Negative Negative [facility] L501.4021on 2025 Trop T High Sen 40 ng/L High <=14 [facility] Comment on above: Performed By: #### L 501.4021, M200.1000, L503.7505, L503.6005 ####[facility] [address] [place], [place], [address] L509.7001on 2025 Procalcitonin 0.68 ng/mL High <=0.10 [facility] Comment on above: Result Comment: Inte rpretation:<0.10-0.25 ng/mL: Antibiotic therapy discouraged. Bacterialinfection unlikely.0.25-0.50 ng/mL: Antibiotic therapy encouraged. Bacterialinfection possible.>0.50 ng/mL: Antibiotic therapy strongly encouraged.Suggestive of presence of bacterial infection.PCT should always be interpreted in the clinical context ofthe patient. Therefore, clinicians should use the PCTresults in conjunction with other laboratory findings andclinical signs of the patient. AMENDED REPORT 07/22/25 1815 Procalcitonin previously reported as: 0.67 H ng/mLInterpretation:<0.10-0.25 ng/mL: Antibiotic therapy discouraged. Bacterialinfection unlikely.0.25-0.50 ng/mL: Antibiotic therapy encouraged. Bacterialinfection possible.>0.50 ng/mL: Antibiotic therapy strongly encouraged.Suggestive of presence of bacterial infection.PCT should always be interpreted in the clinical context ofthe patient. Therefore, clinicians should use the PCTresults in conjunction with other laboratory findings andclinical signs of the patient. Performed By: #### L 509.7001 ####[facility] [address] [place], [address] Lactic Acidon 2025 Lactate [Moles/Vol] mmol/L Normal 0.0-2.0 [facility] Comment on above: Order Comment: Y Performed By: #### L 501.4021, M200.1000, L503.7505, L503.6005 ####[facility] [address] [place], [address] M100.678on 2025 M100.678 Pending SARS-CoV-2 (COVID 19) Negative INFLUENZA A Negative INFLUENZA B Negative RSV PCR Negative Normal [facility] Comment on above: Performed By: #### M 100.678 ####[facility] [address] [place], [address] MR/CON.PCM.GIon 2025 MR/CON.PCM.GI Normal [facility] Microbial respiratory cultur eOrdered By: Antoni Argueta on 2025 Microorganism identified Cx Nom (Unsp spec) or Staphylococcus aureus isolated. [facility] Mucus LM Ql (Urine sed)Order ed By: Dulce Maria Raymond on 2025 Mucus Ql (Urine sed) 0 SEEN /hpf [facility] Natriuretic peptide.B prohor mago N-Terminal [Mass/volume] in Serum or PlasmaOrdered By: Dulce Maria Raymond on 2025 Natriuretic peptide.B prohormone N-Terminal [Mass/Vol] 5405 pg/mL High <1800 [facility] Nitrite Test strip Ql (U)Ord ered By: Dulce Maria Raymond on 2025 Nitrite Ql (U) Negative Negative [facility] No Panel InformationOrdered By: Dulce Maria Raymond on 2025 [address] [facility] [address] RAYMOND [facility] Yes [facility] Pro- Brain NATRIURETIC PEPTI Varghese 2025 Natriuretic peptide B (Bld) [Mass/Vol] 5405 pg/mL High <=1800 [facility] Comment on above: Result Comment: Hear t Failure Unlikely: < 300 pg/mLHeart Failure Likely< 50 Years: > 450 pg/mL50-75 Years: > 900 pg/mL>75 Years: > 1800 pg/mL Performed By: #### L 501.4021, M200.1000, L503.7505, L503.6005 ####[facility] [address] [place], [address] Procalcitonin [Mass/volume] in Serum or Plasma by ImmunoassayOrdered By: Antoni Argueta on 2025 Procalcitonin IA [Mass/Vol] 0.68 ng/mL High <0.11 [facility] Procedure Reporton Procedure Report Normal [facility] Protein Test strip Ql (U)Ord ered By: Dulce Maria Raymond on 2025 Protein Ql (U) 100 mg/dl High Negative [facility] Respiratory pathogens detect ion panel by molecular detection methodOrdered By: Antoni Argueta on 2025 Respiratory pathogens DNA and RNA panel KISHORE+probe (Resp) [facility] Soft Tissue Neck WITH Contra ston 2025 Soft Tissue Neck WITH Contrast Normal [facility] Squamous epithelial cells de tection in urine sediment by light microscopyOrdered By: Dulce Maria Raymond on 2025 Epithelial cells.squamous LM Ql (Urine sed) 0 SEEN /hpf - [facility] Troponin T HS 2 HRon 025 Trop T High Sen 39 ng/L High <=14 [facility] Comment on above: Performed By: #### L 499.0042 ####[facility] [address] [place], [address] Troponin T HS 4 HRon 025 Trop T High Sen 38 ng/L High <=14 [facility] Comment on above: Performed By: #### L 499.0043 ####[facility] [address] [place], [address] Troponin T.cardiac [Mass/vol ume] in Serum or Plasma by High sensitivity methodOrdered By: Dulce Maria Raymond on 2025 Troponin T.cardiac High sensitivity method [Mass/Vol] 38 ng/L High <14 [facility] Troponin T.cardiac High sensitivity method [Mass/Vol] 39 ng/L High <14 [facility] Troponin T.cardiac High sensitivity method [Mass/Vol] 40 ng/L High <14 [facility] Urinalysis, Completeon 07-22 BACTERIA 0 SEEN Normal None Seen [facility] Comment on above: Order Comment: NICKIE TER SPECIMEN Performed By: #### L 400.0001 ####[facility] [address] [place], [address] EPI,SQUAMOUS 0 SEEN Normal -10 [facility] Comment on above: Order Comment: NICKIE TER SPECIMEN Performed By: #### L 400.0001 ####[facility] [address] [place], [address] Mucus Ql (Urine sed) 0 SEEN Normal [facility] Comment on above: Order Comment: NICKIE TER SPECIMEN Performed By: #### L 400.0001 ####[facility] [address] [place], [address] RBC 0 SEEN Normal 0-5 [facility] Comment on above: Order Comment: NICKIE TER SPECIMEN Performed By: #### L 400.0001 ####[facility] [address] [place], [place], [address] WBC 0 SEEN Normal 0-5 [facility] Comment on above: Order Comment: NICKIE TER SPECIMEN Performed By: #### L 400.0001 ####[facility] [address] [place], [place], [address] Urine clarityOrdered By: Chinyere Raymond on 2025 Clarity (U) Clear Clear [facility] Urine color determinationOrd ered By: Dulce Maria Raymond on 2025 Color (U) Yellow Yellow [facility] Urine cultureOrdered By: Chinyere Raymond on 2025 Bacteria identified Cx Nom (U) Culture exhibits no growth. [facility] Urine glucose detectionOrder ed By: Dulce Maria Raymond on 2025 Glucose Ql (U) Normal mg/dl Normal [facility] Urine leukocyte esterase det ection by dipstickOrdered By: Dulce Maria Raymond on 2025 Leukocyte esterase Test strip Ql (U) 25 /ul High Negative [facility] Urine pHOrdered By: Dulce Maria marlow on 2025 pH (U) 6.0 [pH] 5.0 - 8.0 [facility] Urine sediment bacteria coun t by microscopy (number/high power field)Ordered By: Dulce Maria Raymond on 2025 Bacteria LM.HPF (Urine sed) [#/Area] 0 /[HPF] None Seen [facility] Urine specific gravity measu rementOrdered By: Dulce Maria Raymond on 2025 Specific gravity (U) [Rel density] 1.015 1.002-1.030 [facility] Urine urobilinogen measureme ntOrdered By: Dulce Maria Raymond on 2025 Urobilinogen Ql (U) 1 mg/dl High Normal [facility] White blood cell countOrdere d By: Dulce Maria Raymond on 2025 White blood cell count 0 SEEN /hpf 0-5 [facility] BD BONE DENSITY DEXA AXIAL S Ping 05-23-2025 BD BONE DENSITY DEXA AXIAL SKELETON ORIGINAL EXAMINATION: BONE DENSITOMETRY 05/23/2025 11:40 am TECHNIQUE: A bone density dual x-ray absorptiometry (DEXA) scan was performed of the axial (e.g. hips, spine) and/or appendicular (e.g. radius) skeleton as appropriate. COMPARISON: None. HISTORY: Reason for Exam: Screening for osteoporosis. FINDINGS: T Score Left Femoral Neck: -2.2 Left Femoral Neck: 0.604 (g/cm2) T Score Left Hip: -2.6 Left Hip: 0.623 (g/cm2) T Score Lumbar Spine: -0.9 Lumbar Spine: 0.953 (g/cm2) FRAX: 10 year fracture risk assessment is not reported as some T-scores are at or below -2.5. The BHOF f/k/a NOF recommends that FDA-approved medical therapies be considered in post-menopausal women and men age >/= 50 years with a: * Hip or vertebral fracture, or * T-score of /= 20% for major osteoporotic fractures or * >/= 3% for hip fractures All treatment decisions require clinical judgement and consideration of individual patient factors, including patient preferences, comorbidities, previous drug use, risk factors not captured in the FRAX registered model (e.g., frailty, falls, vitamin D deficiency, increased bone turnover, interval significant decline in bone density) and possible under- or over-estimation of fracture risk by FRAX. IMPRESSION: Osteoporosis. I have personally reviewed the images of this examination and agree with the resident's findings and interpretation. Interpreted by: Megan Rainey MD Preliminary Report By: Lamberto Gonsalves Electronically signed By Megan Rainey MD Dictated Date: 05/23/2025 1:19:45 PM Prelim Date: 05/23/2025 2:24:13 PM Sign Date: 05/23/2025 2:24:13 PM Ordering Provider: TAYLOR Castillo [facility] Anion gap in Serum or Plasma Ordered By: Jane Jay on 12-24-2024 Anion gap [Moles/Vol] 13 mmol/L 5-15 [facility] BUN/creatinine ratioOrdered By: Jane Jay on 12-24-2024 Urea nitrogen/Creatinine [Mass ratio] 16.1 mg/mg 10- [facility] Basic Metabolic Profile (BMP )on 12-24-2024 BUN/CRE 16.1 RATIO Normal - [facility] Comment on above: Performed By: #### L 500.2500, L509.1000 ####[facility] [address] [place], [address] GAP 13 Normal 5-15 [facility] Comment on above: Performed By: #### L 500.2500, L509.1000 ####[facility] [address] [place], [address] GFR/1.73 sq M.predicted among non-blacks MDRD (S/P/Bld) [Vol rate/Area] 27 mL/min/{1.73_m2} Low >60 [facility] Comment on above: Result Comment: mL/m in/1.73m2 CKD-EPI Creatinine Equation (2020) Performed By: #### L 500.2500, L509.1000 ####[facility] [address] [place], [address] Carbon dioxide, total [Moles /volume] in Central venous bloodOrdered By: Jane Jay on 12-24-2024 CO2 [Moles/Vol] 21.7 mmol/L Normal 21.0-32.0 [facility] Comment on above: Performed By: #### L 500.2500, L509.1000 ####[facility] [address] [place], [address] Chloride assayOrdered By: Kelli Jay on 12-24-2024 Chloride [Moles/Vol] 105 mmol/L Normal 98-[address] [facility] Comment on above: Performed By: #### L 500.2500, L509.1000 ####[facility] [address] [place], [address] GFR/1.73 sq M.predicted jessi g non-blacks MDRD (S/P/Bld) [Vol rate/Area]Ordered By: Jane Jay on 12-24-2024 Estimated GFR (MDRD) Non-Af Amer 27 Low >60 [facility] Comment on above: mL/min/1.73m2 CKD-EP I Creatinine Equation (2020) PTH intactOrdered By: Laith Jay on 12-24-2024 Parathyroid Hormone (Intact) 172 pg/mL High [facility] PTHINon 12-24-2024 PTH 172 pg/mL High [facility] Comment on above: Performed By: #### L 500.2500, L509.1000 ####[facility] [address] [place], [address] Potassium measurement (mass/ volume)Ordered By: Jane Jay on 12-24-2024 Potassium [Moles/Vol] 4.8 mmol/L Normal 3.3-5.1 [facility] Comment on above: Performed By: #### L 500.2500, L509.1000 ####[facility] [address] [place], [address] Serum creatinine measurement (mass/volume)Ordered By: Jane Jay on 12-24-2024 Creatinine [Mass/Vol] 1.88 mg/dL High 0.70-1.20 [facility] Comment on above: Performed By: #### L 500.2500, L509.1000 ####[facility] [address] [place], [address] Serum glucose measurement (m ass/volume)Ordered By: Jane Jay on 12-24-2024 Glucose [Mass/Vol] 131 mg/dL High 70-99 [facility] Comment on above: Performed By: #### L 500.2500, L509.1000 ####[facility] [address] [place], [address] Serum or plasma calcium merritt urement (mass/volume)Ordered By: Jane Jay on 12-24-2024 Calcium [Mass/Vol] 8.9 mg/dL Normal 7.6-11.0 [facility] Comment on above: Performed By: #### L 500.2500, L509.1000 ####[facility] [address] [place], [address] Serum or plasma urea nitroge n measurement (mass/volume)Ordered By: Jane Jay on 12-24-2024 Urea nitrogen [Mass/Vol] 30 mg/dL High 4-19 [facility] Comment on above: Performed By: #### L 500.2500, L509.1000 ####[facility] [address] [place], [address] Sodium levelOrdered By: Connie Jay on 12-24-2024 Sodium [Moles/Vol] 140 mmol/L Normal 133-145 [facility] Comment on above: Performed By: #### L 500.2500, L509.1000 ####[facility] [address] [place], [address] Albumin DL <= 20 mg/L (U) [M ass/Vol]Ordered By: Jane Jay on 12-17-2024 Urine Random Microalbumin 147.0 mg/L NO RANGE EST. [facility] Anion gap in Serum or Plasma Ordered By: Jane Jay on 12-17-2024 Anion gap [Moles/Vol] 13 mmol/L 5-15 [facility] BUN/creatinine ratioOrdered By: Jane Jay on 12-17-2024 Urea nitrogen/Creatinine [Mass ratio] 17.9 mg/mg 10-20 [facility] CBC-Complete Blood Cnt No Di ffon 12-17-2024 Erythrocyte distribution width (RBC) [Ratio] 13.8 % Normal 11.6-14.6 [facility] Comment on above: Performed By: #### L 500.3600, L100.0500, L502.0250 ####[facility] [address] [place], [address] Hematocrit (Bld) [Volume fraction] 29.7 % Low 37-47 [facility] Comment on above: Performed By: #### L 500.3600, L100.0500, L502.0250 ####[facility] [address] [place], [address] Hemoglobin (Bld) [Mass/Vol] 9.3 g/dL Low 12.0-15.0 [facility] Comment on above: Performed By: #### L 500.3600, L100.0500, L502.0250 ####[facility] [address] [place], [address] MCH (RBC) [Entitic mass] 31.6 pg Normal 27.0-32.0 [facility] Comment on above: Performed By: #### L 500.3600, L100.0500, L502.0250 ####[facility] [address] [place], [address] MCHC (RBC) [Mass/Vol] 31.3 g/dL Low 32-36 [facility] Comment on above: Performed By: #### L 500.3600, L100.0500, L502.0250 ####[facility] [address] [place], [address] MCV (RBC) [Entitic vol] 101.0 fL High 81-99 [facility] Comment on above: Performed By: #### L 500.3600, L100.0500, L502.0250 ####[facility] [address] [place], [address] Platelet mean volume (Bld) [Entitic vol] 9.4 fL Normal 6.2-12.0 [facility] Comment on above: Performed By: #### L 500.3600, L100.0500, L502.0250 ####[facility] [address] [place], [address] Platelets (Bld) [#/Vol] 215 10*3/uL Normal 150-450 [facility] Comment on above: Performed By: #### L 500.3600, L100.0500, L502.0250 ####[facility] [address] [place], [address] RBC (Bld) [#/Vol] 2.94 10*6/uL Low 4.2-5.4 [facility] Comment on above: Performed By: #### L 500.3600, L100.0500, L502.0250 ####[facility] [address] [place], [address] RDW SD 50.9 fl High 35.1-43.9 [facility] Comment on above: Performed By: #### L 500.3600, L100.0500, L502.0250 ####[facility] [address] [place], [address] WBC (Bld) [#/Vol] 7.1 10*3/uL Normal 4.4-11.0 [facility] Comment on above: Performed By: #### L 500.3600, L100.0500, L502.0250 ####[facility] [address] [place], [address] Carbon dioxide, total [Moles /volume] in Central venous bloodOrdered By: Jane Jay on 12-17-2024 CO2 [Moles/Vol] 21.0 mmol/L 21.0-32.0 [facility] Chloride assayOrdered By: Kelli Jay on 12-17-2024 Chloride [Moles/Vol] 106 mmol/L 98-[address] [facility] Creatinine Unsp time (U) [Ma ss/Vol]Ordered By: Jane Jay on 12-17-2024 Creatinine (U) [Mass/Vol] 45.90 mg/dL 28-217 [facility] Erythrocyte distribution wid th ratioOrdered By: Jane Jay on 12-17-2024 Erythrocyte distribution width (RBC) [Ratio] 13.8 % 11.6-14.6 [facility] Erythrocyte distribution wid th standard deviationOrdered By: Jane Jay on 12-17-2024 Erythrocyte distribution width (RBC) [Entitic vol] 50.9 fL High 35.1-43.9 [facility] GFR/1.73 sq M.predicted jessi g non-blacks MDRD (S/P/Bld) [Vol rate/Area]Ordered By: Jane Jay on 12-17-2024 Estimated GFR (MDRD) Non-Af Amer 27 Low >60 [facility] Comment on above: mL/min/1.73m2 CKD-EP I Creatinine Equation (2020) Hematocrit Auto (Bld) [Volum e fraction]Ordered By: Jane Jay on 12-17-2024 Hematocrit (Bld) [Volume fraction] 29.7 % Low 37-47 [facility] Hemoglobin measurementOrdere d By: Jane Jay on 12-17-2024 Hemoglobin (Bld) [Mass/Vol] 9.3 g/dL Low 12.0-15.0 [facility] MCV (mean corpuscular volume ) determinationOrdered By: Jane Jay on 12-17-2024 MCV (RBC) [Entitic vol] 101.0 fL High 81-99 [facility] Mean corpuscular hemoglobin (MCH) determinationOrdered By: Jane Jay on 12-17-2024 MCH (RBC) [Entitic mass] 31.6 pg 27.0-32.0 [facility] Mean corpuscular hemoglobin concentration (MCHC) determinationOrdered By: Jane Jay on 12-17-2024 MCHC (RBC) [Mass/Vol] 31.3 g/dL Low 32-36 [facility] Mean platelet volume determi nationOrdered By: Jane Jay on 12-17-2024 Platelet mean volume (Bld) [Entitic vol] 9.4 fL 6.2-12.0 [facility] Microalb:Creat Ratio,Random URon 12-17-2024 Creatinine [Mass/Vol] 45.90 mg/dL Normal 28-217 [facility] Comment on above: Performed By: #### L 500.3600, L100.0500, L502.0250 ####[facility] [address] [place], [address] MALB:CREAT 3202.6 mg/g CRE Normal [facility] Comment on above: Performed By: #### L 500.3600, L100.0500, L502.0250 ####[facility] [address] [place], [address] MICROALBUMIN,UR 147.0 mg/L Normal NO RANGE EST. [facility] Comment on above: Performed By: #### L 500.3600, L100.0500, L502.0250 ####[facility] [address] [place], [address] Microalbumin/creat ratio urO rdered By: Jane Jay on 12-17-2024 Urine Microalbumin/Creatinine Ratio 3202.6 mg/g CRE [facility] Platelet countOrdered By: Kelli Jay on 12-17-2024 Platelets (Bld) [#/Vol] 215 10*3/uL 150-450 [facility] Potassium (Unsp spec) [Mass/ Vol]Ordered By: Jane Jay on 12-17-2024 Potassium [Moles/Vol] 5.6 mmol/L High 3.3-5.1 [facility] RBC Auto (Bld) [#/Vol]Ordere d By: Jane Jay on 12-17-2024 RBC (Bld) [#/Vol] 2.94 10*6/uL Low 4.2-5.4 [facility] Renal Profileon 12-17-2024 Albumin [Mass/Vol] 3.8 g/dL Normal 3.4-4.8 [facility] Comment on above: Performed By: #### L 500.3600, L100.0500, L502.0250 ####[facility] [address] [place], [address] BUN/CRE 17.9 RATIO Normal 10-20 [facility] Comment on above: Performed By: #### L 500.3600, L100.0500, L502.0250 ####[facility] [address] [place], [address] Calcium [Mass/Vol] 9.2 mg/dL Normal 7.6-11.0 [facility] Comment on above: Performed By: #### L 500.3600, L100.0500, L502.0250 ####[facility] [address] [place], [address] Chloride [Moles/Vol] 106 mmol/L Normal 98-[address] [facility] Comment on above: Performed By: #### L 500.3600, L100.0500, L502.0250 ####[facility] [address] [place], [address] CO2 [Moles/Vol] 21.0 mmol/L Normal 21.0-32.0 [facility] Comment on above: Performed By: #### L 500.3600, L100.0500, L502.0250 ####[facility] [address] [place], [address] Creatinine [Mass/Vol] 1.88 mg/dL High 0.70-1.20 [facility] Comment on above: Performed By: #### L 500.3600, L100.0500, L502.0250 ####[facility] [address] [place], [address] GAP 13 Normal 5-15 [facility] Comment on above: Performed By: #### L 500.3600, L100.0500, L502.0250 ####[facility] [address] [place], [address] GFR/1.73 sq M.predicted among non-blacks MDRD (S/P/Bld) [Vol rate/Area] 27 mL/min/{1.73_m2} Low >60 [facility] Comment on above: Result Comment: mL/m in/1.73m2 CKD-EPI Creatinine Equation (2020) Performed By: #### L 500.3600, L100.0500, L502.0250 ####[facility] [address] [place], [address] Glucose [Mass/Vol] 112 mg/dL High 70-99 [facility] Comment on above: Performed By: #### L 500.3600, L100.0500, L502.0250 ####[facility] [address] [place], [address] Phosphate [Mass/Vol] 3.8 mg/dL Normal 2.7-4.[address] [facility] Comment on above: Performed By: #### L 500.3600, L100.0500, L502.0250 ####[facility] [address] [place], [address] Potassium [Moles/Vol] 5.6 mmol/L High 3.3-5.1 [facility] Comment on above: Performed By: #### L 500.3600, L100.0500, L502.0250 ####[facility] [address] [place], [address] Sodium [Moles/Vol] 141 mmol/L Normal 133-145 [facility] Comment on above: Performed By: #### L 500.3600, L100.0500, L502.0250 ####[facility] [address] [place], [address] Urea nitrogen [Mass/Vol] 34 mg/dL High 4-19 [facility] Comment on above: Performed By: #### L 500.3600, L100.0500, L502.0250 ####[facility] [address] [place], [address] Serum creatinine measurement (mass/volume)Ordered By: Jane Jay on 12-17-2024 Creatinine [Mass/Vol] 1.88 mg/dL High 0.70-1.20 [facility] Serum glucose measurement (m ass/volume)Ordered By: Jane Jay on 12-17-2024 Glucose [Mass/Vol] 112 mg/dL High 70-99 [facility] Serum or plasma albumin merritt urement (mass/volume)Ordered By: Jane Jay on 12-17-2024 Albumin [Mass/Vol] 3.8 g/dL 3.4-4.8 [facility] Serum or plasma calcium merritt urement (mass/volume)Ordered By: Jane Jay on 12-17-2024 Calcium [Mass/Vol] 9.2 mg/dL 7.6-11.0 [facility] Serum or plasma urea nitroge n measurement (mass/volume)Ordered By: Jane Jay on 12-17-2024 Urea nitrogen [Mass/Vol] 34 mg/dL High 4-19 [facility] Serum phosphorus measurement Ordered By: Jane Jay on 12-17-2024 Phosphorus Level 3.8 mg/dL 2.7-4.5 [facility] Sodium levelOrdered By: Connie Jay on 12-17-2024 Sodium [Moles/Vol] 141 mmol/L 133-145 [facility] White blood cell (WBC) count Ordered By: Jane Jay on 12-17-2024 WBC (Bld) [#/Vol] 7.1 10*3/uL 4.4-11.0 [facility] Basic Metabolic Profile (BMP )on 08-23-2024 BUN/CRE 19.4 RATIO Normal 10-20 [facility] Comment on above: Performed By: #### L 500.2500 ####[facility] [address] [place], [address] CA,Total 9.1 mg/dL Normal 8.5-10.1 [facility] Comment on above: Performed By: #### L 500.2500 ####[facility] [address] [place], [address] Chloride [Moles/Vol] 109 mmol/L High 98-[address] [facility] Comment on above: Performed By: #### L 500.2500 ####[facility] [address] [place], [address] CO2 [Moles/Vol] 25.0 mmol/L Normal 21.0-32.0 [facility] Comment on above: Performed By: #### L 500.2500 ####[facility] [address] [place], [address] Creatinine [Mass/Vol] 1.91 mg/dL High 0.55-1.02 [facility] Comment on above: Result Comment: The validity of the calculated GFR GFRAA in patients over70 years has not been determined. Clinical correlation isessential. Performed By: #### L 500.2500 ####[facility] [address] [place], [address] EST GFR - AA 33 mL/min Low >60 [facility] Comment on above: Result Comment: Afri can [place] GFR Calc Performed By: #### L 500.2500 ####[facility] [address] [place], [address] GAP 6 Normal 5-15 [facility] Comment on above: Performed By: #### L 500.2500 ####[facility] [address] [place], [address] GFR/1.73 sq M.predicted among non-blacks MDRD (S/P/Bld) [Vol rate/Area] 27 mL/min/{1.73_m2} Low >60 [facility] Comment on above: Result Comment: Non- GFR Calc Performed By: #### L 500.2500 ####[facility] [address] [place], [address] Glucose [Mass/Vol] 139 mg/dL High 74-106 [facility] Comment on above: Result Comment: Fast ing Glucose result greater than or equal to 126 mg/dLsuggests DIABETES MELLITUS per A.D.A. criteria. Performed By: #### L 500.2500 ####[facility] [address] [place], [address] Potassium [Moles/Vol] 4.5 mmol/L Normal 3.5-5.1 [facility] Comment on above: Performed By: #### L 500.2500 ####[facility] [address] [place], [place], [address] Sodium [Moles/Vol] 140 mmol/L Normal 136-145 [facility] Comment on above: Performed By: #### L 500.2500 ####[facility] [address] [place], [place], [address] Urea nitrogen [Mass/Vol] 37 mg/dL High 7-18 [facility] Comment on above: Performed By: #### L 500.2500 ####[facility] [address] [place], [address] OXACILLIN:SUSC:PT:ISOLATE:OR DQN:MICon 06-17-2024 Oxacillin WILMAN [Susc] Few Staphylococcus aureus [facility] Work Phone: Oxacillin WILMAN [Susc]on 06-17 GS No organisms seen. [facility] Work Phone: Staphylococcus aureus Staphylococcus aureus [facility] Work Phone: Basophil percentageOrdered B y: Jane Jay on 11-18-2023 Hemoglobin (Bld) [Mass/Vol] 8.8 g/dL 12.0-15.0 [facility] WBC (Bld) [#/Vol] 6.6 10*3/uL 4.4-11.0 [facility] Determination of erythrocyte mean corpuscular volume (MCV)Ordered By: Jane Jay on 11-18-2023 MCV (RBC) [Entitic vol] 100.7 fL 81-99 [facility] Erythrocyte distribution wid th ratioOrdered By: Jane Jay on 11-18-2023 Erythrocyte distribution width (RBC) [Ratio] 15.1 % 11.6-14.6 [facility] Erythrocyte distribution wid th standard deviationOrdered By: Jane Jay on 11-18-2023 Erythrocyte distribution width (RBC) [Entitic vol] 55.8 fL 35.1-43.9 [facility] Hematocrit Auto (Bld) [Volum e fraction]Ordered By: Jane Jay on 11-18-2023 Hematocrit (Bld) [Volume fraction] 30.5 % 37-47 [facility] Laboratory - Hematology and Cell countsOrdered By: Jane Jay on 11-18-2023 MCH (RBC) [Entitic mass] 29.0 pg 27.0-32.0 [facility] MCHC (RBC) [Mass/Vol] 28.9 g/dL 32-36 [facility] Platelet mean volume (Bld) [Entitic vol] 11.1 fL 6.2-12.0 [facility] Platelets (Bld) [#/Vol] 145 10*3/uL 150-450 [facility] No Panel InformationOrdered By: Jane Jay on 11-18-2023 Parathyroid Hormone (Intact) 111.4 pg/mL 18.4-80.1 [facility] Vitamin D 25-Hydroxy 63.5 ng/mL [facility] Comment on above: Vitamin D 25(OH) Sta tus Range Deficiency <20 ng/mL (50nmol/L) Insufficiency 20 - 30 ng/mL (50 - 75 nmol/L) Sufficiency 30 - 100 ng/mL (75 - 250 nmol/L) Toxicity >100 ng/mL (>250 nmol/L) RBC Auto (Bld) [#/Vol]Ordere d By: Jane Jay on 11-18-2023 RBC (Bld) [#/Vol] 3.03 10*6/uL 4.2-5.4 [facility] Basophil percentageOrdered B y: Jane Jay on 11-11-2023 Chloride [Moles/Vol] 109 mmol/L 98-[address] [facility] Glucose [Mass/Vol] 133 mg/dL 74-106 [facility] Comment on above: Fasting Glucose resu lt greater than or equal to 126 mg/dL suggests DIABETES MELLITUS per A.D.A. criteria. Potassium [Moles/Vol] 5.3 mmol/L 3.5-5.1 [facility] Comment on above: Slight Hemolysis, Re sult may be falsely increased. Sodium [Moles/Vol] 137 mmol/L 136-145 [facility] Laboratory - Chemistry and C hemistry - challengeOrdered By: Jane Jay on 11-11-2023 CO2 [Moles/Vol] 25.0 mmol/L 21.0-32.0 [facility] Urea nitrogen/Creatinine [Mass ratio] 16.6 mg/mg 10-20 [facility] No Panel InformationOrdered By: Jane Jay on 11-11-2023 Estimated GFR (MDRD) Amer 43 mL/min >60 [facility] Comment on above: GFR Calc Estimated GFR (MDRD) Non-Af Amer 36 mL/min >60 [facility] Comment on above: Non- GFR Calc Serum or plasma calcium merritt urement (mass/volume)Ordered By: Jane Jay on 11-11-2023 Calcium [Mass/Vol] 9.1 mg/dL 8.5-10.1 [facility] Serum or plasma creatinine m easurement (mass/volume)Ordered By: Jane Jay on 11-11-2023 Creatinine [Mass/Vol] 1.51 mg/dL 0.55-1.02 [facility] Comment on above: The validity of the calculated GFR & GFRAA in patients over 70 years has not been determined. Clinical correlation is essential. Serum or plasma urea nitroge n measurement (mass/volume)Ordered By: Jane Jay on 11-11-2023 Urea nitrogen [Mass/Vol] 25 mg/dL - [facility] Thin prep Papanicolaou smear with manual screeningOrdered By: Jane Jay on 11-11-2023 Thin prep Papanicolaou smear with manual screening 3 5-15 [facility] Basophil percentageOrdered B y: Antoni Argueta on 07-30-2023 Chloride [Moles/Vol] 105 mmol/L 98-[address] [facility] Glucose [Mass/Vol] 216 mg/dL 74-106 [facility] Comment on above: Glucose result great er than or equal to 200 mg/dLsuggests DIABETES MELLITUS per A.D.A. criteria. Potassium [Moles/Vol] 4.9 mmol/L 3.5-5.1 [facility] Sodium [Moles/Vol] 134 mmol/L 136-145 [facility] WBC (Bld) [#/Vol] 13.7 10*3/uL 4.4-11.0 [facility] Blood erythrocytes count (nu mber/volume)Ordered By: Antoni Argueta on 07-30-2023 RBC (Bld) [#/Vol] 3.77 10*6/uL 4.2-5.4 [facility] Blood hemoglobin measurement (mass/volume)Ordered By: Antoni Argueta on 07-30-2023 Hemoglobin (Bld) [Mass/Vol] 11.2 g/dL 12.0-15.0 [facility] Blood platelet mean volumeOr dered By: Antoni Argueta on 07-30-2023 Platelet mean volume (Bld) [Entitic vol] 10.3 fL 6.2-12.0 [facility] Determination of erythrocyte mean corpuscular volume (MCV)Ordered By: Antoni Argueta on 07-30-2023 MCV (RBC) [Entitic vol] 97.1 fL 81-99 [facility] Glucose Glucometer (dC) [M ass/Vol]Ordered By: Antoni Argueta on 07-30-2023 Glucose [Mass/Vol] 222 mg/dL 74-106 [facility] Comment on above: MANAGEMENT OF PATIEN T CARE PER NURSING PROTOCOL Hematocrit Auto (Bld) [Volum e fraction]Ordered By: Antoni Argueta on 07-30-2023 Hematocrit (Bld) [Volume fraction] 36.6 % 37-47 [facility] Laboratory - Chemistry and C hemistry - challengeOrdered By: Antoni Argueta on 07-30-2023 CO2 [Moles/Vol] 21.0 mmol/L 21.0-32.0 [facility] Urea nitrogen/Creatinine [Mass ratio] 20.1 mg/mg 10-20 [facility] Laboratory - Hematology and Cell countsOrdered By: Antoni Argueta on 07-30-2023 Erythrocyte distribution width (RBC) [Entitic vol] 53.1 fL 35.1-43.9 [facility] Erythrocyte distribution width (RBC) [Ratio] 14.9 % 11.6-14.6 [facility] MCH (RBC) [Entitic mass] 29.7 pg 27.0-32.0 [facility] MCHC Auto (RBC) [Mass/Vol]Or dered By: Antoni Argueta on 07-30-2023 MCHC (RBC) [Mass/Vol] 30.6 g/dL 32-36 [facility] No Panel InformationOrdered By: Antoni Argueta on 07-30-2023 Estimated Creatinine Clearance Calc 24.90 ml/min [facility] Estimated GFR (MDRD) Amer 34 mL/min >60 [facility] Comment on above: GFR Calc Estimated GFR (MDRD) Non-Af Amer 28 mL/min >60 [facility] Comment on above: Non- GFR Calc Platelets bldOrdered By: Sita Argueta on 07-30-2023 Platelets (Bld) [#/Vol] 273 10*3/uL 150-450 [facility] Serum or plasma calcium merritt urement (mass/volume)Ordered By: Antoni Argueta on 07-30-2023 Calcium [Mass/Vol] 8.1 mg/dL 8.5-10.1 [facility] Serum or plasma creatinine m easurement (mass/volume)Ordered By: Antoni Argueta on 07-30-2023 Creatinine [Mass/Vol] 1.84 mg/dL 0.55-1.02 [facility] Comment on above: The validity of the calculated GFR & GFRAA in patients over 70 years has not been determined. Clinical correlation is essential. Serum or plasma urea nitroge n measurement (mass/volume)Ordered By: Antoni Argueta on 07-30-2023 Urea nitrogen [Mass/Vol] 37 mg/dL 7-18 [facility] Thin prep Papanicolaou smear with manual screeningOrdered By: Antoni Argueta on 07-30-2023 Thin prep Papanicolaou smear with manual screening 8 5-15 [facility] Absolute lymphocyte countOrd ered By: Kavin Mcclain on 07-29-2023 Lymphocytes Auto (Unsp spec) [#/Vol] 0.43 10*3/uL 0.83-4.51 [facility] Bacteria identified Cx Nom ( Wound)Ordered By: Kavin Mcclain on 07-29-2023 Wound Culture Staphylococcus aureus [facility] Basophil percentageOrdered B y: Kavin Mcclain on 07-29-2023 Basophils/100 WBC (Bld) 0.1 % 0-1 [facility] Eosinophils/100 WBC (Bld) 0.0 % 0-5 [facility] Neutrophils (Bld) [#/Vol] 14.5 10*3/uL 2.0-7.7 [facility] Neutrophils/100 WBC (Bld) 93.1 % 47-70 [facility] Basophil percentageOrdered B y: Tacho Moffett on 07-29-2023 Lactate [Moles/Vol] 1.5 mmol/L 0.4-2.0 [facility] Blood lymphocytes/100 leukoc ytesOrdered By: Kavin Mcclain on 07-29-2023 Lymphocytes/100 WBC (Bld) 2.8 % 19-41 [facility] Blood monocytes/100 leukocyt esOrdered By: Kavin Mcclain on 07-29-2023 Monocytes/100 WBC (Bld) 3.3 % 0-10 [facility] Gram stain for investigation of transfusion reactionOrdered By: Kavin Mcclain on 07-29-2023 Microscopic observation Gram stain Nom (Unsp spec) [facility] - Hematology and Cell countsOrdered By: Kavin Mcclain on 07-29-2023 Immature granulocytes/100 WBC (Bld) 0.700 % 0.0-0.9 [facility] Comment on above: IG% - Immature Granu locytes (promyelocytes, myelocytes and metamyelocytes) > 1% indicates that a LEFT SHIFT is Present. Nucleated RBC/100 WBC (Bld) [Ratio] 0 % 0-5 [facility] Absolute lymphocyte countOrd ered By: Carlyn Salmon on 07-28-2023 Lymphocytes Auto (Unsp spec) [#/Vol] 0.69 10*3/uL 0.83-4.51 [facility] Amorphous sediment detection in urine sediment by light microscopyOrdered By: Carlyn Salmon on 07-28-2023 Amorphous sediment LM Ql (Urine sed) 1+ [facility] Assessment of wrist artery p atency prior to arterial punctureOrdered By: Tacho Moffett on 07-28-2023 Arterial patency Wrist artery --pre arterial puncture Positive [facility] Base excessOrdered By: Tacho Moffett on 07-28-2023 Base excess Calc (BldV) [Moles/Vol] -7 mmol/L -2-2 [facility] Basophil percentageOrdered B y: Tacho Moffett on 07-28-2023 Basophil percentage 17.4 mmol/L 22-[address] [facility] Basophils/100 WBC (Bld) 92 % 95-99 [facility] Lactate [Moles/Vol] 2.0 mmol/L 0.4-2.0 [facility] Comment on above: Critical Result(s) C alled at: 20:41:18 07/28/2023 by: Majo Nieves to [email or web address]. Results read back by same. Basophil percentageOrdered B y: Carlyn Salmon on 07-28-2023 Basophil percentage 0-5 SEEN /hpf 0-5 [facility] Basophils/100 WBC (Bld) 0.3 % 0-1 [facility] Chloride [Moles/Vol] 98 mmol/L 98-[address] [facility] Eosinophils/100 WBC (Bld) 0.1 % 0-5 [facility] Glucose [Mass/Vol] 260 mg/dL 74-106 [facility] Comment on above: Glucose result great er than or equal to 200 mg/dLsuggests DIABETES MELLITUS per A.D.A. criteria. Neutrophils (Bld) [#/Vol] 12.7 10*3/uL 2.0-7.7 [facility] Neutrophils/100 WBC (Bld) 87.7 % 47-70 [facility] Potassium [Moles/Vol] 5.6 mmol/L 3.5-5.1 [facility] Sodium [Moles/Vol] 130 mmol/L 136-145 [facility] WBC (Bld) [#/Vol] 14.6 10*3/uL 4.4-11.0 [facility] Bilirubin Test strip Ql (U)O rdered By: Carlyn Salmon on 07-28-2023 Bilirubin Ql (U) 1 mg/dL Negative [facility] Comment on above: COLOR OF URINE MAY A FFECT DIPSTICK RESULTS. Blood erythrocytes count (nu mber/volume)Ordered By: Carlyn Salmon on 07-28-2023 RBC (Bld) [#/Vol] 4.25 10*6/uL 4.2-5.4 [facility] Blood hemoglobin measurement (mass/volume)Ordered By: Carlyn Salmon on 07-28-2023 Hemoglobin (Bld) [Mass/Vol] 12.7 g/dL 12.0-15.0 [facility] Blood lymphocytes/100 leukoc ytesOrdered By: Carlyn Salmon on 07-28-2023 Lymphocytes/100 WBC (Bld) 4.7 % 19-41 [facility] Blood monocytes/100 leukocyt esOrdered By: Carlyn Salmon on 07-28-2023 Monocytes/100 WBC (Bld) 6.7 % 0-10 [facility] Blood platelet mean volumeOr dered By: Carlyn Salmon on 07-28-2023 Platelet mean volume (Bld) [Entitic vol] 10.3 fL 6.2-12.0 [facility] CO2 (BldA) [Partial pressure ]Ordered By: Tacho Moffett on 07-28-2023 CO2 (Bld) [Partial pressure] 28.4 mm[Hg] 35-45 [facility] Determination of erythrocyte mean corpuscular volume (MCV)Ordered By: Carlyn Salmon on 07-28-2023 MCV (RBC) [Entitic vol] 99.8 fL 81-99 [facility] Glucose Glucometer (dC) [M ass/Vol]Ordered By: ED PROVIDER on 07-28-2023 Glucose [Mass/Vol] 241 mg/dL 74-106 [facility] Comment on above: MANAGEMENT OF PATIEN T CARE PER NURSING PROTOCOL Hematocrit Auto (Bld) [Volum e fraction]Ordered By: Carlyn Salmon on 07-28-2023 Hematocrit (Bld) [Volume fraction] 42.4 % 37-47 [facility] Influenza virus A and B and SARS-CoV-2 (COVID-19) Ag panel - Upper respiratory specimOrdered By: Carlyn Salmon on 07-28-2023 SARS-CoV-2 (COVID-19) RNA KISHORE+probe Ql (Resp) [facility] Ketones Test strip Ql (U)Ord ered By: Carlyn Salmon on 07-28-2023 Ketones Ql (U) 5 mg/dl Negative [facility] Laboratory - Chemistry and C hemistry - challengeOrdered By: Carlyn Salmon on 07-28-2023 CO2 [Moles/Vol] 21.0 mmol/L 21.0-32.0 [facility] Urea nitrogen/Creatinine [Mass ratio] 12.6 mg/mg 10-20 [facility] Laboratory - Hematology and Cell countsOrdered By: Carlyn Salmon on 07-28-2023 Erythrocyte distribution width (RBC) [Entitic vol] 54.9 fL 35.1-43.9 [facility] Erythrocyte distribution width (RBC) [Ratio] 14.9 % 11.6-14.6 [facility] Immature granulocytes/100 WBC (Bld) 0.500 % 0.0-0.9 [facility] Comment on above: IG% - Immature Granu locytes (promyelocytes, myelocytes and metamyelocytes) > 1% indicates that a LEFT SHIFT is Present. MCH (RBC) [Entitic mass] 29.9 pg 27.0-32.0 [facility] Nucleated RBC/100 WBC (Bld) [Ratio] 0 % 0-5 [facility] Laboratory - Microbiology an d Antimicrobial susceptibilityOrdered By: Tacho Moffett on 07-28-2023 Bacteria identified Cx Nom (Bld) No growth in 5 days. [facility] MCHC Auto (RBC) [Mass/Vol]Or dered By: Carlyn Salmon on 07-28-2023 MCHC (RBC) [Mass/Vol] 30.0 g/dL 32-36 [facility] Mucus LM Ql (Urine sed)Order ed By: Carlyn Salmon on 07-28-2023 Mucus Ql (Urine sed) 0 SEEN /hpf [facility] Nitrite Test strip Ql (U)Ord ered By: Carlyn Salmon on 07-28-2023 Nitrite Ql (U) Negative Negative [facility] No Panel InformationOrdered By: Kavin Mcclain on 07-28-2023 Streptococcus pneumoniae Antigen (M [facility] Streptococcus pneumoniae Antigen (M [facility] No Panel InformationOrdered By: Tacho Moffett on 07-28-2023 Blood Gas Sample Site L Radial [facility] Blood Gas Specimen Type ART [facility] Blood Gas Total CO2 18 mmol[facility]L [facility] Mode Not entered [facility] Oxygen Delivery Device Cannula [facility] No Panel InformationOrdered By: Carlyn Salmon on 07-28-2023 Estimated Creatinine Clearance Calc 19.09 ml/min [facility] Estimated GFR (MDRD) Amer 26 mL/min >60 [facility] Comment on above: GFR Calc Estimated GFR (MDRD) Non-Af Amer 22 mL/min >60 [facility] Comment on above: Non- GFR Calc Troponin I High Sensitivity 23 pg/mL 3.0-54.0 [facility] Comment on above: Please Note: [place] t Units and Gender Specific Reference Ranges. For more information see Policy Stat Procedure [place] High Sensitivity Troponin (TNIH) and attachments. Oxygen (BldA) [Partial press ure]Ordered By: Tacho Moffett on 07-28-2023 Oxygen (Bld) [Partial pressure] 61 mmHG 75-100 [facility] Platelets bldOrdered By: Honey Salmon on 07-28-2023 Platelets (Bld) [#/Vol] 354 10*3/uL 150-450 [facility] Protein Test strip Ql (U)Ord ered By: Carlyn Salmon on 07-28-2023 Protein Ql (U) 500 mg/dl Negative [facility] Serum or plasma calcium merritt urement (mass/volume)Ordered By: Carlyn Salmon on 07-28-2023 Calcium [Mass/Vol] 8.5 mg/dL 8.5-10.1 [facility] Serum or plasma creatinine m easurement (mass/volume)Ordered By: Carlyn Salmon on 07-28-2023 Creatinine [Mass/Vol] 2.31 mg/dL 0.55-1.02 [facility] Comment on above: The validity of the calculated GFR & GFRAA in patients over 70 years has not been determined. Clinical correlation is essential. Serum or plasma urea nitroge n measurement (mass/volume)Ordered By: Carlyn Salmon on 07-28-2023 Urea nitrogen [Mass/Vol] 29 mg/dL 7-18 [facility] Squamous epithelial cells de tection in urine sediment by light microscopyOrdered By: Carlyn Salmon on 07-28-2023 Epithelial cells.squamous LM Ql (Urine sed) 0 SEEN /hpf 5-10 [facility] Thin prep Papanicolaou smear with manual screeningOrdered By: Carlyn Salmon on 07-28-2023 Thin prep Papanicolaou smear with manual screening 11 5-15 [facility] Upper respiratory specimen i nfluenza A virus, influenza B virus, and severe acute respiratory syndromOrdered By: Carlyn Salmon on 07-28-2023 Upper respiratory specimen influenza A virus, influenza B virus, and severe acute respiratory syndrom [facility] Urine Legionella pneumophila antigen detectionOrdered By: Kavin Mcclain on 07-28-2023 L. pneumophila Ag Ql (U) [facility] L. pneumophila Ag Ql (U) [facility] Urine blood detectionOrdered By: Cralyn Salmon on 07-28-2023 RBC Ql (U) 50 /ul Negative [facility] RBC Ql (U) 0-5 SEEN /hpf 0-5 [facility] Urine clarityOrdered By: Honey Salmon on 07-28-2023 Clarity (U) Sl. Cloudy Clear [facility] Urine color determinationOrd ered By: Carlyn Salmon on 07-28-2023 Color (U) Yellow Yellow [facility] Urine glucose detectionOrder ed By: Carlyn Salmon on 07-28-2023 Glucose Ql (U) Normal mg/dl Normal [facility] Urine leukocyte esterase det ection by dipstickOrdered By: Carlyn Salmon on 07-28-2023 Leukocyte esterase Test strip Ql (U) 25 /ul Negative [facility] Urine pHOrdered By: Carlyn de la garza on 07-28-2023 pH (U) 5.0 [pH] 5.0 - 8.0 [facility] Urine sediment bacteria coun t by microscopy (number/high power field)Ordered By: Carlyn Salmon on 07-28-2023 Bacteria LM.HPF (Urine sed) [#/Area] 0 /[HPF] None Seen [facility] Urine specific gravity measu rementOrdered By: Carlyn Salmon on 07-28-2023 Specific gravity (U) [Rel density] 1.020 1.002-1.030 [facility] Urobilinogen Auto test strip Ql (U)Ordered By: Carlyn Salmon on 07-28-2023 Urobilinogen Ql (U) 4 mg/dl Normal [facility] pH measurementOrdered By: Salinas Ballard on 07-28-2023 pH (Unsp spec) 7.40 [pH] 7.35-7.45 [facility] Basophil percentageOrdered B y: Jane Jay on 06-30-2023 Basophil percentage 4.1 mg/dL 2.5-4.9 [facility] Chloride [Moles/Vol] 104 mmol/L 98-[address] [facility] Glucose [Mass/Vol] 132 mg/dL 74-106 [facility] Comment on above: Fasting Glucose resu lt greater than or equal to 126 mg/dL suggests DIABETES MELLITUS per A.D.A. criteria. Potassium [Moles/Vol] 4.8 mmol/L 3.5-5.1 [facility] Sodium [Moles/Vol] 138 mmol/L 136-145 [facility] Laboratory - Chemistry and C hemistry - challengeOrdered By: Jane Jay on 06-30-2023 CO2 [Moles/Vol] 27.0 mmol/L 21.0-32.0 [facility] Urea nitrogen/Creatinine [Mass ratio] 14.1 mg/mg 10-20 [facility] No Panel InformationOrdered By: Jane Jay on 06-30-2023 Estimated GFR (MDRD) Amer 38 mL/min >60 [facility] Comment on above: GFR Calc Estimated GFR (MDRD) Non-Af Amer 31 mL/min >60 [facility] Comment on above: Non- GFR Calc Parathyroid Hormone (Intact) 268.6 pg/mL 18.4-80.1 [facility] Vitamin D 25-Hydroxy 30.2 ng/mL [facility] Comment on above: Vitamin D 25(OH) Sta tus Range Deficiency <20 ng/mL (50nmol/L) Insufficiency 20 - 30 ng/mL (50 - 75 nmol/L) Sufficiency 30 - 100 ng/mL (75 - 250 nmol/L) Toxicity >100 ng/mL (>250 nmol/L) Serum or plasma albumin merritt urement (mass/volume)Ordered By: Jane Jay on 06-30-2023 Albumin [Mass/Vol] 2.8 g/dL 3.2-5.0 [facility] Serum or plasma calcium merritt urement (mass/volume)Ordered By: Jane Jay on 06-30-2023 Calcium [Mass/Vol] 8.9 mg/dL 8.5-10.1 [facility] Serum or plasma creatinine m easurement (mass/volume)Ordered By: Jane Jay on 06-30-2023 Creatinine [Mass/Vol] 1.70 mg/dL 0.55-1.02 [facility] Comment on above: The validity of the calculated GFR & GFRAA in patients over 70 years has not been determined. Clinical correlation is essential. Serum or plasma urea nitroge n measurement (mass/volume)Ordered By: Jane Jay on 06-30-2023 Urea nitrogen [Mass/Vol] 24 mg/dL 7-18 [facility] Urine creatinine measurement (mass/volume)Ordered By: Jane Jay on 06-30-2023 Creatinine (U) [Mass/Vol] 33.00 mg/dL NO RANGE EST. [facility] Urine protein measurement (m ass/volume)Ordered By: Jane Jay on 06-30-2023 Protein (U) [Mass/Vol] 81.6 mg/dL 0.0-11.8 [facility] Urine protein/creatinine mas s ratioOrdered By: Jane Jay on 06-30-2023 Protein/Creatinine (U) [Mass ratio] 2473 mg/g CRE 0-200 [facility] Basophil percentageOrdered B y: Dr. Jay on 01-07-2023 Potassium [Moles/Vol] 5.3 mmol/L 3.5-5.1 [facility] Basophil percentageOrdered B y: Dr. Jay on 12-30-2022 Basophil percentage 3.9 mg/dL 2.5-4.9 [facility] Chloride [Moles/Vol] 105 mmol/L 98-[address] [facility] Glucose [Mass/Vol] 167 mg/dL 74-106 [facility] Comment on above: Fasting Glucose resu lt greater than or equal to 126 mg/dL suggests DIABETES MELLITUS per A.D.A. criteria. Potassium [Moles/Vol] 5.4 mmol/L 3.5-5.1 [facility] Sodium [Moles/Vol] 137 mmol/L 136-145 [facility] WBC (Bld) [#/Vol] 12.1 10*3/uL 4.4-11.0 [facility] Blood erythrocytes count (nu mber/volume)Ordered By: Dr. Jay on 12-30-2022 RBC (Bld) [#/Vol] 3.71 10*6/uL 4.2-5.4 [facility] Blood hemoglobin measurement (mass/volume)Ordered By: Dr. Jay on 12-30-2022 Hemoglobin (Bld) [Mass/Vol] 11.2 g/dL 12.0-15.0 [facility] Blood platelet mean volumeOr dered By: Dr. Jay on 12-30-2022 Platelet mean volume (Bld) [Entitic vol] 9.5 fL 6.2-12.0 [facility] Determination of erythrocyte mean corpuscular volume (MCV)Ordered By: Dr. Jay on 12-30-2022 MCV (RBC) [Entitic vol] 99.5 fL 81-99 [facility] Hematocrit Auto (Bld) [Volum e fraction]Ordered By: Dr. Jay on 12-30-2022 Hematocrit (Bld) [Volume fraction] 36.9 % 37-47 [facility] Laboratory - Chemistry and C hemistry - challengeOrdered By: Dr. Jay on 12-30-2022 CO2 [Moles/Vol] 25.0 mmol/L 21.0-32.0 [facility] Urea nitrogen/Creatinine [Mass ratio] 16.5 mg/mg 10-20 [facility] Laboratory - Hematology and Cell countsOrdered By: Dr. Jay on 12-30-2022 Erythrocyte distribution width (RBC) [Entitic vol] 47.5 fL 35.1-43.9 [facility] Erythrocyte distribution width (RBC) [Ratio] 13.1 % 11.6-14.6 [facility] MCH (RBC) [Entitic mass] 30.2 pg 27.0-32.0 [facility] MCHC Auto (RBC) [Mass/Vol]Or dered By: Dr. Jay on 12-30-2022 MCHC (RBC) [Mass/Vol] 30.4 g/dL 32-36 [facility] No Panel InformationOrdered By: Dr. Jay on 12-30-2022 Estimated GFR (MDRD) Amer 33 mL/min >60 [facility] Comment on above: GFR Calc Estimated GFR (MDRD) Non-Af Amer 28 mL/min >60 [facility] Comment on above: Non- GFR Calc Platelets bldOrdered By: Dr. Jay on 12-30-2022 Platelets (Bld) [#/Vol] 343 10*3/uL 150-450 [facility] Serum or plasma albumin merritt urement (mass/volume)Ordered By: Dr. Jay on 12-30-2022 Albumin [Mass/Vol] 2.6 g/dL 3.2-5.0 [facility] Serum or plasma calcium merritt urement (mass/volume)Ordered By: Dr. Jay on 12-30-2022 Calcium [Mass/Vol] 9.0 mg/dL 8.5-10.1 [facility] Serum or plasma creatinine m easurement (mass/volume)Ordered By: Dr. Jay on 12-30-2022 Creatinine [Mass/Vol] 1.88 mg/dL 0.55-1.02 [facility] Comment on above: The validity of the calculated GFR & GFRAA in patients over 70 years has not been determined. Clinical correlation is essential. Serum or plasma urea nitroge n measurement (mass/volume)Ordered By: Dr. Jay on 12-30-2022 Urea nitrogen [Mass/Vol] 31 mg/dL 7-18 [facility] Basophil percentageOrdered B y: Dr. Jay on 09-17-2022 Chloride [Moles/Vol] 107 mmol/L 98-[address] [facility] Glucose [Mass/Vol] 228 mg/dL 74-106 [facility] Comment on above: Glucose result great er than or equal to 200 mg/dLsuggests DIABETES MELLITUS per A.D.A. criteria. Potassium [Moles/Vol] 4.2 mmol/L 3.5-5.1 [facility] Sodium [Moles/Vol] 138 mmol/L 136-145 [facility] Laboratory - Chemistry and C hemistry - challengeOrdered By: Dr. Jay on 09-17-2022 CO2 [Moles/Vol] 28.0 mmol/L 21.0-32.0 [facility] Urea nitrogen/Creatinine [Mass ratio] 15.7 mg/mg 10- [facility] No Panel InformationOrdered By: Dr. Jay on 09-17-2022 Estimated GFR (MDRD) Amer 34 mL/min >60 [facility] Comment on above: GFR Calc Estimated GFR (MDRD) Non-Af Amer 28 mL/min >60 [facility] Comment on above: Non- GFR Calc Serum or plasma calcium merritt urement (mass/volume)Ordered By: Dr. Jay on 09-17-2022 Calcium [Mass/Vol] 8.6 mg/dL 8.5-10.1 [facility] Serum or plasma creatinine m easurement (mass/volume)Ordered By: Dr. Jay on 09-17-2022 Creatinine [Mass/Vol] 1.85 mg/dL 0.55-1.02 [facility] Comment on above: The validity of the calculated GFR & GFRAA in patients over 70 years has not been determined. Clinical correlation is essential. Serum or plasma urea nitroge n measurement (mass/volume)Ordered By: Dr. Jay on 09-17-2022 Urea nitrogen [Mass/Vol] 29 mg/dL 7-18 [facility] Thin prep Papanicolaou smear with manual screeningOrdered By: Dr. Jay on 09-17-2022 Thin prep Papanicolaou smear with manual screening 3 5-15 [facility] Basophil percentageOrdered B y: Dr. Jay on 09-10-2022 Basophil percentage 4.4 mg/dL 2.5-4.9 [facility] Chloride [Moles/Vol] 107 mmol/L 98-[address] [facility] Glucose [Mass/Vol] 112 mg/dL 74-106 [facility] Comment on above: Fasting Glucose resu lt from 100 to 125 mg/dL suggests IMPAIRED HOMEOSTASIS per A.D.A. criteria. Potassium [Moles/Vol] 5.6 mmol/L 3.5-5.1 [facility] Sodium [Moles/Vol] 138 mmol/L 136-145 [facility] WBC (Bld) [#/Vol] 8.1 10*3/uL 4.4-11.0 [facility] Blood erythrocytes count (nu mber/volume)Ordered By: Dr. Jay on 09-10-2022 RBC (Bld) [#/Vol] 3.54 10*6/uL 4.2-5.4 [facility] Blood hemoglobin measurement (mass/volume)Ordered By: Dr. Jay on 09-10-2022 Hemoglobin (Bld) [Mass/Vol] 11.0 g/dL 12.0-15.0 [facility] Blood platelet mean volumeOr dered By: Dr. Jay on 09-10-2022 Platelet mean volume (Bld) [Entitic vol] 10.4 fL 6.2-12.0 [facility] Determination of erythrocyte mean corpuscular volume (MCV)Ordered By: Dr. Jay on 09-10-2022 MCV (RBC) [Entitic vol] 102.0 fL 81-99 [facility] Hematocrit Auto (Bld) [Volum e fraction]Ordered By: Dr. Jay on 09-10-2022 Hematocrit (Bld) [Volume fraction] 36.1 % 37-47 [facility] Laboratory - Chemistry and C hemistry - challengeOrdered By: Dr. Jay on 09-10-2022 CO2 [Moles/Vol] 25.0 mmol/L 21.0-32.0 [facility] Urea nitrogen/Creatinine [Mass ratio] 18.6 mg/mg 10-20 [facility] Laboratory - Hematology and Cell countsOrdered By: Dr. Jay on 09-10-2022 Erythrocyte distribution width (RBC) [Entitic vol] 57.9 fL 35.1-43.9 [facility] Erythrocyte distribution width (RBC) [Ratio] 15.3 % 11.6-14.6 [facility] MCH (RBC) [Entitic mass] 31.1 pg 27.0-32.0 [facility] MCHC Auto (RBC) [Mass/Vol]Or dered By: Dr. Jay on 09-10-2022 MCHC (RBC) [Mass/Vol] 30.5 g/dL 32-36 [facility] No Panel InformationOrdered By: Dr. Jay on 09-10-2022 Estimated GFR (MDRD) Amer 35 mL/min >60 [facility] Comment on above: GFR Calc Estimated GFR (MDRD) Non-Af Amer 29 mL/min >60 [facility] Comment on above: Non- GFR Calc Parathyroid Hormone (Intact) 275.1 pg/mL 18.4-80.1 [facility] Platelets bldOrdered By: Dr. Jay on 09-10-2022 Platelets (Bld) [#/Vol] 178 10*3/uL 150-450 [facility] Serum or plasma albumin merritt urement (mass/volume)Ordered By: Dr. Jay on 09-10-2022 Albumin [Mass/Vol] 3.0 g/dL 3.2-5.0 [facility] Serum or plasma calcium merritt urement (mass/volume)Ordered By: Dr. Jay on 09-10-2022 Calcium [Mass/Vol] 8.5 mg/dL 8.5-10.1 [facility] Serum or plasma creatinine m easurement (mass/volume)Ordered By: Dr. Jay on 09-10-2022 Creatinine [Mass/Vol] 1.83 mg/dL 0.55-1.02 [facility] Comment on above: The validity of the calculated GFR & GFRAA in patients over 70 years has not been determined. Clinical correlation is essential. Serum or plasma urea nitroge n measurement (mass/volume)Ordered By: Dr. aJy on 09-10-2022 Urea nitrogen [Mass/Vol] 34 mg/dL 7-18 [facility] Urine creatinine measurement (mass/volume)Ordered By: Dr. Jay on 09-10-2022 Creatinine (U) [Mass/Vol] 26.70 mg/dL NO RANGE EST. [facility] Urine protein measurement (m ass/volume)Ordered By: Dr. Jay on 09-10-2022 Protein (U) [Mass/Vol] 58.5 mg/dL 0.0-11.8 [facility] Urine protein/creatinine mas s ratioOrdered By: Dr. Jay on 09-10-2022 Protein/Creatinine (U) [Mass ratio] 2191 mg/g CRE 0-200 [facility] Basophil percentageon 2021 Chloride [Moles/Vol] 104 mmol/L 98-[address] [facility] Work Phone: Glucose [Mass/Vol] 120 mg/dL 74-106 [facility] Work Phone: Comment on above: Fasting Glucose resu lt from 100 to 125 mg/dL suggests IMPAIRED HOMEOSTASIS per A.D.A. criteria. Potassium [Moles/Vol] 5.5 mmol/L 3.5-5.1 [facility] Work Phone: Sodium [Moles/Vol] 137 mmol/L 136-145 [facility] Work Phone: Laboratory - Chemistry and C hemistry - challengeon 06-11-2022 CO2 [Moles/Vol] 25.0 mmol/L 21.0-32.0 [facility] Work Phone: Urea nitrogen/Creatinine [Mass ratio] 15.1 mg/mg 10-20 [facility] Work Phone: No Panel Informationon 06-11 Estimated GFR (MDRD) Amer 35 mL/min >60 [facility] Work Phone: Comment on above: GFR Calc Estimated GFR (MDRD) Non-Af Amer 29 mL/min >60 [facility] Work Phone: Comment on above: Non- GFR Calc Serum or plasma calcium merritt urement (mass/volume)on 06-11-2022 Calcium [Mass/Vol] 8.9 mg/dL 8.5-10.1 [facility] Work Phone: Serum or plasma creatinine m easurement (mass/volume)on 06-11-2022 Creatinine [Mass/Vol] 1.79 mg/dL 0.55-1.02 [facility] Work Phone: Comment on above: The validity of the calculated GFR & GFRAA in patients over 70 years has not been determined. Clinical correlation is essential. Serum or plasma urea nitroge n measurement (mass/volume)on 06-11-2022 Urea nitrogen [Mass/Vol] 27 mg/dL 7-18 [facility] Work Phone: [phone] Thin prep Papanicolaou smear with manual screeningon 06-11-2022 Thin prep Papanicolaou smear with manual screening 8 5-15 [facility] Work Phone: [phone] Basophil percentageon 2021 Basophil percentage 3.7 mg/dL 2.5-4.9 [facility] Work Phone: [phone] Chloride [Moles/Vol] 107 mmol/L 98-107 [facility] Work Phone: [phone] Glucose [Mass/Vol] 113 mg/dL 74-106 [facility] Work Phone: [phone] Comment on above: Fasting Glucose resu lt from 100 to 125 mg/dL suggests IMPAIRED HOMEOSTASIS per A.D.A. criteria. Potassium [Moles/Vol] 5.2 mmol/L 3.5-5.1 [facility] Work Phone: [phone] Sodium [Moles/Vol] 139 mmol/L 136-145 [facility] Work Phone: [phone] WBC (Bld) [#/Vol] 8.1 10*3/uL 4.4-11.0 [facility] Work Phone: [phone] Blood erythrocytes count (nu mber/volume)on 05-28-2022 RBC (Bld) [#/Vol] 4.03 10*6/uL 4.2-5.4 [facility] Work Phone: [phone] Blood hemoglobin measurement (mass/volume)on 05-28-2022 Hemoglobin (Bld) [Mass/Vol] 12.1 g/dL 12.0-15.0 [facility] Work Phone: [phone] Blood platelet mean volumeon 05-28-2022 Platelet mean volume (Bld) [Entitic vol] 11.1 fL 6.2-12.0 [facility] [facility] Work Phone: [phone] Determination of erythrocyte mean corpuscular volume (MCV)on 05-28-2022 MCV (RBC) [Entitic vol] 102.0 fL 81-99 [facility] Work Phone: [phone] Hematocrit Auto (Bld) [Volum e fraction]on 05-28-2022 Hematocrit (Bld) [Volume fraction] 41.1 % 37-47 [facility] Work Phone: [phone] Laboratory - Chemistry and C hemistry - challengeon 05-28-2022 CO2 [Moles/Vol] 23.0 mmol/L 21.0-32.0 [facility] Work Phone: Urea nitrogen/Creatinine [Mass ratio] 14.4 mg/mg 10-20 [facility] Work Phone: [phone] Laboratory - Hematology and Cell countson 05-28-2022 Erythrocyte distribution width (RBC) [Entitic vol] 54.4 fL 35.1-43.9 [facility] Work Phone: [phone] Erythrocyte distribution width (RBC) [Ratio] 14.5 % 11.6-14.6 [facility] Work Phone: [phone] MCH (RBC) [Entitic mass] 30.0 pg 27.0-32.0 [facility] Work Phone: MCHC Auto (RBC) [Mass/Vol]on 05-28-2022 MCHC (RBC) [Mass/Vol] 29.4 g/dL 32-36 [facility] Work Phone: No Panel Informationon 05-28 Estimated GFR (MDRD) Amer 35 mL/min >60 [facility] Work Phone: Comment on above: GFR Calc Estimated GFR (MDRD) Non-Af Amer 29 mL/min >60 [facility] Work Phone: Comment on above: Non- GFR Calc Parathyroid Hormone (Intact) 198.8 pg/mL 18.4-80.1 [facility] Work Phone: Platelets bldon 05-28-2022 Platelets (Bld) [#/Vol] 190 10*3/uL 150-450 [facility] Work Phone: [phone] Serum or plasma albumin merritt urement (mass/volume)on 05-28-2022 Albumin [Mass/Vol] 3.1 g/dL 3.2-5.0 [facility] Work Phone: [phone] Serum or plasma calcium merritt urement (mass/volume)on 05-28-2022 Calcium [Mass/Vol] 8.7 mg/dL 8.5-10.1 [facility] Work Phone: [phone] Serum or plasma creatinine m easurement (mass/volume)on 05-28-2022 Creatinine [Mass/Vol] 1.80 mg/dL 0.55-1.02 [facility] Work Phone: Comment on above: The validity of the calculated GFR & GFRAA in patients over 70 years has not been determined. Clinical correlation is essential. Serum or plasma urea nitroge n measurement (mass/volume)on 05-28-2022 Urea nitrogen [Mass/Vol] 26 mg/dL 7-18 [facility] Work Phone: Glucose Glucometer (BldC) [M ass/Vol]on 02-16-2022 Glucose [Mass/Vol] 197 mg/dL 74-106 [facility] Work Phone: Comment on above: MANAGEMENT OF PATIEN T CARE PER NURSING PROTOCOL Absolute lymphocyte counton 02-15-2022 Lymphocytes Auto (Unsp spec) [#/Vol] 1.11 10*3/uL 0.83-4.51 [facility] Work Phone: Basophil percentageon 2021 Basophils/100 WBC (Bld) 0.4 % 0-1 [facility] Work Phone: Chloride [Moles/Vol] 103 mmol/L 98-[address] [facility] Work Phone: Eosinophils/100 WBC (Bld) 2.7 % 0-5 [facility] Work Phone: Glucose [Mass/Vol] 165 mg/dL 74-106 [facility] Work Phone: Comment on above: Fasting Glucose resu lt greater than or equal to 126 mg/dL suggests DIABETES MELLITUS per A.D.A. criteria. Neutrophils (Bld) [#/Vol] 5.1 10*3/uL 2.0-7.7 [facility] Work Phone: Neutrophils/100 WBC (Bld) 69.7 % 47-70 [facility] Work Phone: Potassium [Moles/Vol] 5.0 mmol/L 3.5-5.1 [facility] Work Phone: Sodium [Moles/Vol] 136 mmol/L 136-145 [facility] Work Phone: [phone] WBC (Bld) [#/Vol] 7.3 10*3/uL 4.4-11.0 [facility] Work Phone: [phone] Blood erythrocytes count (nu mber/volume)on 02-15-2022 RBC (Bld) [#/Vol] 2.84 10*6/uL 4.2-5.4 [facility]: [phone] Blood hemoglobin measurement (mass/volume)on 02-15-2022 Hemoglobin (Bld) [Mass/Vol] 8.6 g/dL 12.0-15.0 [facility] Work Phone: [phone] Blood lymphocytes/100 leukoc yteson 02-15-2022 Lymphocytes/100 WBC (Bld) 15.2 % 19-41 [facility] Work Phone: [phone] Blood monocytes/100 leukocyt eson 02-15-2022 Monocytes/100 WBC (Bld) 11.0 % 0-10 [facility] Work Phone: [phone] Blood platelet mean volumeon 02-15-2022 Platelet mean volume (Bld) [Entitic vol] 10.0 fL 6.2-12.0 [facility] Work Phone: [phone] Determination of erythrocyte mean corpuscular volume (MCV)on 02-15-2022 MCV (RBC) [Entitic vol] 100.0 fL 81-99 [facility] Work Phone: [phone] Hematocrit Auto (Bld) [Volum e fraction]on 02-15-2022 Hematocrit (Bld) [Volume fraction] 28.4 % 37-47 [facility] Work Phone: [phone] Laboratory - Chemistry and C hemistry - challengeon 02-15-2022 CO2 [Moles/Vol] 29.0 mmol/L 21.0-32.0 [facility] Work Phone: [phone] Urea nitrogen/Creatinine [Mass ratio] 19.6 mg/mg 10-20 [facility] Work Phone: [phone] Laboratory - Hematology and Cell countson 02-15-2022 Erythrocyte distribution width (RBC) [Entitic vol] 48.4 fL 35.1-43.9 [facility] Work Phone: [phone] Erythrocyte distribution width (RBC) [Ratio] 13.2 % 11.6-14.6 [facility] Work Phone: [phone] Immature granulocytes/100 WBC (Bld) 1.000 % 0.0-0.9 [facility] Work Phone: [phone] Comment on above: IG% - Immature Granu locytes (promyelocytes, myelocytes and metamyelocytes) > 1% indicates that a LEFT SHIFT is Present. MCH (RBC) [Entitic mass] 30.3 pg 27.0-32.0 [facility] Work Phone: [phone] Nucleated RBC/100 WBC (Bld) [Ratio] 0 % 0-5 [facility] Work Phone: [phone] MCHC Auto (RBC) [Mass/Vol]on 02-15-2022 MCHC (RBC) [Mass/Vol] 30.3 g/dL 32-36 [facility] Work Phone: No Panel Informationon 02-15 Estimated Creatinine Clearance Calc 28.14 ml/min [facility] Work Phone: [phone] Estimated GFR (MDRD) Amer 38 mL/min >60 [facility] Work Phone: [phone] Comment on above: GFR Calc Estimated GFR (MDRD) Non-Af Amer 32 mL/min >60 [facility] Work Phone: [phone] Comment on above: Non- GFR Calc Platelets bldon 02-15-2022 Platelets (Bld) [#/Vol] 309 10*3/uL 150-450 [facility] Work Phone: [phone] Serum or plasma calcium merritt urement (mass/volume)on 02-15-2022 Calcium [Mass/Vol] 8.2 mg/dL 8.5-10.1 [facility] Work Phone: [phone] Serum or plasma creatinine m easurement (mass/volume)on 02-15-2022 Creatinine [Mass/Vol] 1.68 mg/dL 0.55-1.02 [facility] Work Phone: Comment on above: The validity of the calculated GFR & GFRAA in patients over 70 years has not been determined. Clinical correlation is essential. Serum or plasma urea nitroge n measurement (mass/volume)on 02-15-2022 Urea nitrogen [Mass/Vol] 33 mg/dL 7-18 [facility] Work Phone: Thin prep Papanicolaou smear with manual screeningon 02-15-2022 Thin prep Papanicolaou smear with manual screening 4 5-15 [facility] Work Phone: Basophil percentageon 2021 Chloride [Moles/Vol] 104 mmol/L 98-[address] [facility] Work Phone: Glucose [Mass/Vol] 148 mg/dL 74-106 [facility] Work Phone: Comment on above: Fasting Glucose resu lt greater than or equal to 126 mg/dL suggests DIABETES MELLITUS per A.D.A. criteria. Potassium [Moles/Vol] 4.4 mmol/L 3.5-5.1 [facility] Work Phone: Sodium [Moles/Vol] 136 mmol/L 136-145 [facility] Work Phone: Glucose Glucometer (BldC) [M ass/Vol]on 01-31-2022 Glucose [Mass/Vol] 309 mg/dL 74-106 [facility] Work Phone: Comment on above: MANAGEMENT OF PATIEN T CARE PER NURSING PROTOCOL Laboratory - Chemistry and C hemistry - challengeon 01-31-2022 CO2 [Moles/Vol] 27.0 mmol/L 21.0-32.0 [facility] Work Phone: Urea nitrogen/Creatinine [Mass ratio] 21.3 mg/mg 10-20 [facility] Work Phone: No Panel Informationon 01-31 Estimated Creatinine Clearance Calc 27.17 ml/min [facility] Work Phone: Estimated GFR (MDRD) Amer 37 mL/min >60 [facility] Work Phone: Comment on above: GFR Calc Estimated GFR (MDRD) Non-Af Amer 30 mL/min >60 [facility] Work Phone: Comment on above: Non- GFR Calc Serum or plasma calcium merritt urement (mass/volume)on 01-31-2022 Calcium [Mass/Vol] 8.3 mg/dL 8.5-10.1 [facility] Work Phone: Serum or plasma creatinine m easurement (mass/volume)on 01-31-2022 Creatinine [Mass/Vol] 1.74 mg/dL 0.55-1.02 [facility] Work Phone: Comment on above: The validity of the calculated GFR & GFRAA in patients over 70 years has not been determined. Clinical correlation is essential. Serum or plasma urea nitroge n measurement (mass/volume)on 01-31-2022 Urea nitrogen [Mass/Vol] 37 mg/dL 7-18 [facility] Work Phone: Thin prep Papanicolaou smear with manual screeningon 01-31-2022 Thin prep Papanicolaou smear with manual screening 5 5-15 [facility] Work Phone: Absolute lymphocyte counton 01-28-2022 Lymphocytes Auto (Unsp spec) [#/Vol] 0.94 10*3/uL 0.83-4.51 [facility] Work Phone: Basophil percentageon 2021 Basophils/100 WBC (Bld) 0.4 % 0-1 [facility] Work Phone: Eosinophils/100 WBC (Bld) 0.9 % 0-5 [facility] Work Phone: Neutrophils (Bld) [#/Vol] 6.1 10*3/uL 2.0-7.7 [facility] Work Phone: Neutrophils/100 WBC (Bld) 76.3 % 47-70 [facility] Work Phone: WBC (Bld) [#/Vol] 7.9 10*3/uL 4.4-11.0 [facility]: Blood erythrocytes count (nu mber/volume)on 01-28-2022 RBC (Bld) [#/Vol] 3.39 10*6/uL 4.2-5.4 [facility]: Blood hemoglobin measurement (mass/volume)on 01-28-2022 Hemoglobin (Bld) [Mass/Vol] 10.4 g/dL 12.0-15.0 [facility] Work Phone: [phone] Blood lymphocytes/100 leukoc yteson 01-28-2022 Lymphocytes/100 WBC (Bld) 11.9 % 19-41 [facility] Work Phone: [phone] Blood monocytes/100 leukocyt eson 01-28-2022 Monocytes/100 WBC (Bld) 10.1 % 0-10 [facility] Work Phone: Blood platelet mean volumeon 01-28-2022 Platelet mean volume (Bld) [Entitic vol] 10.0 fL 6.2-12.0 [facility] Work Phone: Determination of erythrocyte mean corpuscular volume (MCV)on 01-28-2022 MCV (RBC) [Entitic vol] 101.5 fL 81-99 [facility] Work Phone: [phone] Hematocrit Auto (Bld) [Volum e fraction]on 01-28-2022 Hematocrit (Bld) [Volume fraction] 34.4 % 37-47 [facility] Work Phone: Laboratory - Hematology and Cell countson 01-28-2022 Erythrocyte distribution width (RBC) [Entitic vol] 51.7 fL 35.1-43.9 [facility] Work Phone: [phone] Erythrocyte distribution width (RBC) [Ratio] 14.1 % 11.6-14.6 [facility] Work Phone: [phone] Immature granulocytes/100 WBC (Bld) 0.400 % 0.0-0.9 [facility] Work Phone: Comment on above: IG% - Immature Granu locytes (promyelocytes, myelocytes and metamyelocytes) > 1% indicates that a LEFT SHIFT is Present. MCH (RBC) [Entitic mass] 30.7 pg 27.0-32.0 [facility] Work Phone: Nucleated RBC/100 WBC (Bld) [Ratio] 0 % 0-5 [facility] Work Phone: MCHC Auto (RBC) [Mass/Vol]on 01-28-2022 MCHC (RBC) [Mass/Vol] 30.2 g/dL 32-36 [facility] Work Phone: Platelets bldon 01-28-2022 Platelets (Bld) [#/Vol] 220 10*3/uL 150-450 [facility] Work Phone: No Panel Informationon 01-27 Vitamin D 25-Hydroxy 26.6 ng/mL [facility] Work Phone: Comment on above: Vitamin D 25(OH) Sta tus Range Deficiency <20 ng/mL (50nmol/L) Insufficiency 20 - 30 ng/mL (50 - 75 nmol/L) Sufficiency 30 - 100 ng/mL (75 - 250 nmol/L) Toxicity >100 ng/mL (>250 nmol/L) Whole blood hemoglobin A1c/t otal hemoglobin ratio (mass fraction)on 01-27-2022 HbA1c (Bld) [Mass fraction] 7.0 % 3.8-5.6 [facility] Work Phone: Comment on above: Normal < 5.7 % Predi abetic 5.7 - 6.4 % Diabetic >or= 6.5 % Please note range changes. Absolute lymphocyte counton 01-26-2022 Lymphocytes Auto (Unsp spec) [#/Vol] 0.68 10*3/uL 0.83-4.51 [facility] Work Phone: Basophil percentageon 2021 Basophils/100 WBC (Bld) 0.3 % 0-1 [facility] Work Phone: Bilirubin [Mass/Vol] 0.50 mg/dL 0.20-1.[address] [facility] Work Phone: Comment on above: For patients on eltr ombopag therapy, use of Dimension [place] TBIL is not recommended. Chloride [Moles/Vol] 103 mmol/L 98-[address] [facility] Work Phone: Eosinophils/100 WBC (Bld) 1.3 % 0-5 [facility] Work Phone: Glucose [Mass/Vol] 277 mg/dL 74-106 [facility] Work Phone: Comment on above: Glucose result great er than or equal to 200 mg/dLsuggests DIABETES MELLITUS per A.D.A. criteria. Neutrophils (Bld) [#/Vol] 5.8 10*3/uL 2.0-7.7 [facility] Work Phone: Neutrophils/100 WBC (Bld) 80.8 % 47-70 [facility] Work Phone: Potassium [Moles/Vol] 5.3 mmol/L 3.5-5.1 [facility] Work Phone: Protein [Mass/Vol] 7.8 g/dL 6.4-8.2 [facility] Work Phone: Sodium [Moles/Vol] 135 mmol/L 136-145 [facility] Work Phone: WBC (Bld) [#/Vol] 7.2 10*3/uL 4.4-11.0 [facility] Work Phone: Blood erythrocytes count (nu mber/volume)on 01-26-2022 RBC (Bld) [#/Vol] 3.81 10*6/uL 4.2-5.4 [facility] Work Phone: Blood hemoglobin measurement (mass/volume)on 01-26-2022 Hemoglobin (Bld) [Mass/Vol] 12.0 g/dL 12.0-15.0 [facility] Work Phone: Blood lymphocytes/100 leukoc yteson 01-26-2022 Lymphocytes/100 WBC (Bld) 9.5 % 19-41 [facility] Work Phone: Blood monocytes/100 leukocyt eson 01-26-2022 Monocytes/100 WBC (Bld) 7.5 % 0-10 [facility] Work Phone: Blood platelet mean volumeon 01-26-2022 Platelet mean volume (Bld) [Entitic vol] 9.9 fL 6.2-12.0 [facility] Work Phone: Determination of erythrocyte mean corpuscular volume (MCV)on 01-26-2022 MCV (RBC) [Entitic vol] 99.2 fL 81-99 [facility] Work Phone: Hematocrit Auto (Bld) [Volum e fraction]on 01-26-2022 Hematocrit (Bld) [Volume fraction] 37.8 % 37-47 [facility] Work Phone: Laboratory - Chemistry and C hemistry - challengeon 01-26-2022 ALP [Catalytic activity/Vol] 107 U/L 45-117 [facility] Work Phone: ALT [Catalytic activity/Vol] 13 U/L 13-56 [facility] Work Phone: CO2 [Moles/Vol] 27.0 mmol/L 21.0-32.0 [facility] Work Phone: Globulin (S) [Mass/Vol] 4.8 g/dL 2.2-4.2 [facility] Work Phone: Urea nitrogen/Creatinine [Mass ratio] 17.1 mg/mg 10-20 [facility] Work Phone: Laboratory - Hematology and Cell countson 01-26-2022 Erythrocyte distribution width (RBC) [Entitic vol] 50.8 fL 35.1-43.9 [facility] Work Phone: Erythrocyte distribution width (RBC) [Ratio] 14.1 % 11.6-14.6 [facility] Work Phone: [phone] Immature granulocytes/100 WBC (Bld) 0.600 % 0.0-0.9 [facility] Work Phone: [phone] Comment on above: IG% - Immature Granu locytes (promyelocytes, myelocytes and metamyelocytes) > 1% indicates that a LEFT SHIFT is Present. MCH (RBC) [Entitic mass] 31.5 pg 27.0-32.0 [facility] Work Phone: [phone] Nucleated RBC/100 WBC (Bld) [Ratio] 0 % 0-5 [facility] Work Phone: [phone] MCHC Auto (RBC) [Mass/Vol]on 01-26-2022 MCHC (RBC) [Mass/Vol] 31.7 g/dL 32-36 [facility] Work Phone: No Panel Informationon 01-26 Estimated Creatinine Clearance Calc 23.06 ml/min [facility] Work Phone: [phone] Estimated GFR (MDRD) Amer 30 mL/min >60 [facility] Work Phone: [phone] Comment on above: GFR Calc Estimated GFR (MDRD) Non-Af Amer 25 mL/min >60 [facility] Work Phone: [phone] Comment on above: Non- GFR Calc Platelets bldon 01-26-2022 Platelets (Bld) [#/Vol] 235 10*3/uL 150-450 [facility] Work Phone: [phone] Serum or plasma albumin merritt urement (mass/volume)on 01-26-2022 Albumin [Mass/Vol] 3.0 g/dL 3.2-5.0 [facility] Work Phone: [phone] Serum or plasma albumin/glob ulin mass ratioon 01-26-2022 Albumin/Globulin [Mass ratio] 0.6 {ratio} 0.9-2.4 [facility] Work Phone: [phone] Serum or plasma calcium merritt urement (mass/volume)on 01-26-2022 Calcium [Mass/Vol] 8.4 mg/dL 8.5-10.1 [facility] Work Phone: Serum or plasma creatinine m easurement (mass/volume)on 01-26-2022 Creatinine [Mass/Vol] 2.05 mg/dL 0.55-1.02 [facility] Work Phone: Comment on above: The validity of the calculated GFR & GFRAA in patients over 70 years has not been determined. Clinical correlation is essential. Serum or plasma urea nitroge n measurement (mass/volume)on 01-26-2022 Urea nitrogen [Mass/Vol] 35 mg/dL 7-18 [facility] Work Phone: Thin prep Papanicolaou smear with manual screeningon 01-26-2022 Thin prep Papanicolaou smear with manual screening 14 U/L 15-37 [facility] Work Phone: Thin prep Papanicolaou smear with manual screening 5 5-15 [facility] Work Phone: [facility] Note on 04-12-2017 [facility] Note Normal Count Includes [facility] Patient Summary Documentson 04-12-2017 Patient Summary Documents Normal Count Includes [facility] XR WRIST COMPLETE LEFTon XR WRIST COMPLETE LEFT ORIGINAL *REP ORT CORRECTIONC ORRECTION: Suspect nondisplaced slightly impacted fracture distal radius with cortical defect along dorsal surface. TIME: 4:29 PM 04/12/2017 I have personally reviewed the images of this examination and edited the preliminary report. XR WRIST COMPLETE LEFT, 3 views CLINICAL STATEMENT: fall, patient tripped over dog and steps, posterior wrist pain and bruising COMPARISON: None FINDINGS: A ring obscures the mid shaft of the fourth proximal phalanx. There is triangular cartilage calcification in the wrist. Suspect slightly impacted fracture of dorsal aspect distal radius with cortical buckling and deformity on lateral view. IMPRESSION: Suspect acute slightly impacted fracture distal radius. Clinical correlation will be required. That at [facility] or something all that was noted that the second remains Interpreted By: Kavya De La Rosa MDPreliminary Report By: Mariam Winters DOElectronically Signed By: Kavya De La Rosa MD Dictated Date: 04/12/2017 4:19:13 PM Prelim Date: 04/12/2017 4:21:34 PM Sign Date: 04/12/2017 4:32:05 PM Normal Count Includes [facility] Vital Signs Date Time Vital Sign Value Performing Clinician Facility 08-13-2025 16:49-0400 Body temperature 97.52 [degF] SHUKRI DAVID [employer] [facility] 08-13-2025 16:49-0400 Diastolic Blood Pressure Non-Invasive 41 mm[Hg] SHUKRI DELGADILLOAnne [employer] [facility] 08-13-2025 16:49-0400 Heart rate 66 /min SHUKRI DELGADILLOAnne [employer] [facility] 08-13-2025 16:49-0400 Reason For Taking VItal Signs SHUKRI DELGADILLOAnne [employer] [facility] 08-13-2025 16:49-0400 Respiratory rate 16 /min SHUKRI DAVID [employer] [facility] 08-13-2025 16:49-0400 Systolic Blood Pressure Non-Invasive 138 mm[Hg] SHUKRI DAVID [employer] [facility] 08-13-2025 16:04-0400 Diastolic Blood Pressure Non-Invasive 41 mm[Hg] SHUKRI DELGADILLOAnne [employer] [facility] 08-13-2025 16:04-0400 Systolic Blood Pressure Non-Invasive 138 mm[Hg] SHUKRILORIE DELGADILLOAnne [employer] [facility] 08-13-2025 15:10-0400 Body weight 85.3 kg SHUKRI DELGADILLOAnne [employer] [facility] 08-13-2025 14:27-0400 Heart rate 67 /min SHUKRILORIE DELGADILLON [employer] [facility] 08-13-2025 14:27-0400 Respiratory rate 16 /min SHUKRILORIE DELGADILLON [employer] [facility] 08-13-2025 10:02-0400 Heart rate 70 /min SHUKRILORIE MELENDEZNEN [employer] [facility] 08-13-2025 10:02-0400 Respiratory rate 16 /min SHUKRILORIE MELENDEZNEN [employer] [facility] 08-13-2025 09:23-0400 Heart rate 70 /min SHURKILORIE DELGADILLON [employer] [facility] 08-13-2025 07:09-0400 Body temperature 98.6 [degF] SHUKRILORIE MELENDEZNEN [employer] [facility] 08-13-2025 07:09-0400 Diastolic Blood Pressure Non-Invasive 59 mm[Hg] SHUKRILORIE DELGADILLON [employer] [facility] 08-13-2025 07:09-0400 Reason For Taking VItal Signs SHUKRILORIE DELGADILLOAnne [employer] [facility] 08-13-2025 07:09-0400 Systolic Blood Pressure Non-Invasive 142 mm[Hg] SHUKRILORIE MELENDEZNEN [employer] [facility] 08-13-2025 03:50-0400 Body temperature 98.42 [degF] SHUKRILORIE MELENDEZNEN [employer] [facility] 08-13-2025 03:50-0400 Reason For Taking VItal Signs SHUKRILORIE MELENDEZNEN [employer] [facility] 08-12-2025 17:25-0400 Heart rate 78 /min SHUKRI DAVID [employer] [facility] 08-12-2025 11:02-0400 SaO2% (BldA) [Mass fraction] 95.3 % SHUKRILORIE DELGADILLON [employer] [facility] 08-12-2025 09:19-0400 Heart rate 70 /min SHUKRILORIE DELGADILLON [employer] [facility] 08-12-2025 08:09-0400 Heart rate 70 /min SHUKRILORIE DELGADILLON [employer] [facility] 08-12-2025 03:13-0400 Heart rate 69 /min SHUKRILORIE DELGADILLON [employer] [facility] 08-11-2025 22:31-0400 Heart rate 70 /min SHUKRI DAVID [employer] [facility] 08-09-2025 16:08-0400 Blood Pressure Location SHUKRILORIE DELGADILLON [employer] [facility] 08-09-2025 16:08-0400 Blood Pressure Method SHUKRILORIE DELGADILLON [employer] [facility] 08-09-2025 10:23-0400 Body height 170.2 cm SUHKRI DAVID [employer] [facility] 08-09-2025 10:23-0400 Body weight 28.34 kg/m2 SHUKRILORIE DELGADILLON [employer] [facility] 08-09-2025 10:23-0400 Body weight 82.1 kg SHUKRI DELGADILLON [employer] [facility] 08-09-2025 08:43-0400 Heart rate 82 /min ALINA LOYA MD FACP [facility] 08-09-2025 07:32-0400 Body temperature 97.88 [degF] ALINA LOYA MD FACP [facility] 08-09-2025 07:32-0400 Diastolic Blood Pressure Non-Invasive 48 mm[Hg] ALINA LOYA MD FACP [facility] 08-09-2025 07:32-0400 Heart rate 78 /min ALINA LOYA MD FACP [facility] 08-09-2025 07:32-0400 Reason For Taking VItal Signs ALINA LOYA MD FACP [facility] 08-09-2025 07:32-0400 Respiratory rate 18 /min ALINA LOYA MD FACP [facility] 08-09-2025 07:32-0400 Systolic Blood Pressure Non-Invasive 134 mm[Hg] ALINA LOYA MD FACP [facility] 08-09-2025 06:41-0400 Heart rate 80 /min ALINA LOYA MD FACP [facility] 08-09-2025 06:41-0400 Respiratory rate 18 /min ALINA LOYA MD FACP [facility] 08-08-2025 23:09-0400 Heart rate 78 /min ALINA LOYA MD FACP [facility] 08-08-2025 19:54-0400 Body temperature 97.7 [degF] ALINA LOYA MD FACP [facility] 08-08-2025 19:54-0400 Diastolic Blood Pressure Non-Invasive 62 mm[Hg] ALINA LOYA MD FACP [facility] 08-08-2025 19:54-0400 Heart rate 73 /min ALINA LOYA MD FACP [facility] 08-08-2025 19:54-0400 Reason For Taking VItal Signs ALINA LOYA MD FACP [facility] 08-08-2025 19:54-0400 Respiratory rate 20 /min ALINA LOYA MD FACP [facility] 08-08-2025 19:54-0400 Systolic Blood Pressure Non-Invasive 119 mm[Hg] ALINA LOYA MD FACP [facility] 08-08-2025 16:59-0400 Heart rate 81 /min ALINA LOYA MD FACP [facility] 08-08-2025 16:51-0400 Diastolic Blood Pressure Non-Invasive 73 mm[Hg] ALINA LOYA MD FACP [facility] 08-08-2025 16:51-0400 Systolic Blood Pressure Non-Invasive 116 mm[Hg] ALINA LOYA MD FACP [facility] 08-08-2025 09:44-0400 Heart rate 86 /min ALINA LOYA MD FACP [facility] 08-08-2025 07:56-0400 Body temperature 99.14 [degF] ALINA LOYA MD FACP [facility] 08-08-2025 07:56-0400 Reason For Taking VItal Signs ALINA LOYA MD FACP [facility] 08-08-2025 07:49-0400 Body weight 80.2 kg ALINA LOYA MD FACP [facility] 08-06-2025 18:16-0400 Body temperature 98.42 [degF] ALINA LOYA MD FACP [facility] 08-05-2025 16:32-0400 Body height 170.2 cm AILNA LOYA MD FACP [facility] 08-05-2025 16:32-0400 Body weight 59.1 kg ALINA LOYA MD FACP [facility] 08-05-2025 16:32-0400 Body weight 20.4 kg/m2 ALINA LOYA MD FACP [facility] 08-05-2025 12:14-0400 Body temperature 98 [degF] Dr. Dulce Maria Raymond MD [facility] 08-05-2025 12:14-0400 Diastolic blood pressure 79 mm[Hg] Dr. Dulce Maria Raymond MD [facility] 08-05-2025 12:14-0400 Heart rate 102 /min Dr. Dulce Maria Raymond MD [facility] 08-05-2025 12:14-0400 Inhaled oxygen flow rate 3 L/min Dr. Dulce Maria Raymond MD [facility] 08-05-2025 12:14-0400 Respiratory rate 16 /min Dr. Dulce Maria Raymond MD [facility] 08-05-2025 12:14-0400 SaO2% (BldA) [Mass fraction] 92 % Dr. Dulce Maria Raymond MD [facility] 08-05-2025 12:14-0400 Systolic blood pressure 135 mm[Hg] Dr. Dulce Maria Raymond MD [facility] 08-05-2025 06:00-0400 Body mass index (BMI) [Ratio] 28.9 kg/m2 Dr. Dulce Maria Raymond MD [facility] 08-05-2025 06:00-0400 Body weight 83.[address] Dulce Maria Raymond MD [facility] 08-03-2025 15:11-0400 Body height 170.[address] Dulce Maria Raymond MD [facility] 07-29-2025 11:51-0400 Inhaled oxygen concentration 30 % Dr. Dulce Maria Raymond MD [facility] 07-30-2023 15:11-0400 Body temperature 98.2 [degF] Dr. Danilo Oneill Work Phone: [facility] 07-30-2023 15:11-0400 Diastolic blood pressure 80 mm[Hg] Dr. Danilo Oneill Work Phone: [facility] 07-30-2023 15:11-0400 Heart rate 102 /min Dr. Danilo Oneill Work Phone: [facility] 07-30-2023 15:11-0400 Inhaled oxygen flow rate 3 L/min Dr. Danilo Oneill Work Phone: [facility] 07-30-2023 15:11-0400 Respiratory rate 18 /min Dr. Danilo Oneill Work Phone: [facility] 07-30-2023 15:11-0400 SaO2% (BldA) [Mass fraction] 95 % Dr. Danilo Oneill Work Phone: [facility] 07-30-2023 15:11-0400 Systolic blood pressure 143 mm[Hg] Dr. Danilo Oneill Work Phone: [facility] 07-29-2023 15:21-0400 Inhaled oxygen concentration 94 % Dr. Danilo Oneill Work Phone: [facility] 07-29-2023 10:02-0400 Body height 170.[address] Danilo Oneill Work Phone: [facility] 07-29-2023 10:02-0400 Body weight 90.[address] Danilo Oneill Work Phone: [facility] 07-28-2023 22:45-0400 Body mass index (BMI) [Ratio] 31.2 kg/m2 Dr. Danilo Oneill Work Phone: [facility] 07-28-2023 22:10-0400 SaO2% (BldA) [Mass fraction] 88 % [facility] 07-28-2023 22:00-0400 Diastolic blood pressure 78 mm[Hg] [facility] 07-28-2023 22:00-0400 Systolic blood pressure 127 mm[Hg] [facility] 07-28-2023 21:40-0400 Heart rate 132 /min [facility] 07-28-2023 21:40-0400 Respiratory rate 21 /min [facility] 07-28-2023 20:29-0400 Inhaled oxygen flow rate 4 L/min [facility] 07-28-2023 20:00-0400 Body temperature 100.3 [degF] [facility] 07-28-2023 19:11-0400 Body height 170 cm [facility] 07-28-2023 19:11-0400 Body mass index (BMI) [Ratio] 31.7 kg/m2 [facility] 07-28-2023 19:11-0400 Body weight 91.8 kg [facility] 03-15-2023 12:44-0400 Body mass index (BMI) [Ratio] 33.3 kg/m2 [facility] 03-15-2023 12:44-0400 Body weight 96.4 kg [facility] 03-15-2023 11:31-0400 Body height 170.18 cm [facility] 03-15-2023 11:31-0400 Body temperature 98.1 [degF] [facility] 03-15-2023 11:31-0400 Diastolic blood pressure 90 mm[Hg] [facility] 03-15-2023 11:31-0400 Heart rate 90 /min [facility] 03-15-2023 11:31-0400 Respiratory rate 18 /min [facility] 03-15-2023 11:31-0400 SaO2% (BldA) [Mass fraction] 82 % [facility] 03-15-2023 11:31-0400 Systolic blood pressure 105 mm[Hg] [facility] 02-16-2022 07:09-0400 Body temperature 98.5 [degF] [facility] Work Phone: 02-16-2022 07:09-0400 Diastolic blood pressure 59 mm[Hg] [facility] Work Phone: 02-16-2022 07:09-0400 Heart rate 73 /min [facility] Work Phone: 02-16-2022 07:09-0400 Inhaled oxygen flow rate 3 L/min [facility] Work Phone: 02-16-2022 07:09-0400 Respiratory rate 18 /min [facility] Work Phone: 02-16-2022 07:09-0400 SaO2% (BldA) [Mass fraction] 93 % [facility] Work Phone: 02-16-2022 07:09-0400 Systolic blood pressure 143 mm[Hg] [facility] Work Phone: 02-13-2022 13:37-0400 Body height 170.18 cm [facility] Work Phone: 02-13-2022 13:37-0400 Body weight 94.34 kg [facility] Work Phone: 01-31-2022 15:14-0400 Body mass index (BMI) [Ratio] 32.8 kg/m2 [facility] Work Phone: 01-31-2022 14:14-0400 Body temperature 98.1 [degF] Dr. Danilo Oneill Work Phone: [facility] Work Phone: 01-31-2022 14:14-0400 Diastolic blood pressure 56 mm[Hg] Dr. Danilo Oneill Work Phone: [facility] Work Phone: 01-31-2022 14:14-0400 Heart rate 99 /min Dr. Danilo Oneill Work Phone: [facility] Work Phone: 01-31-2022 14:14-0400 Respiratory rate 18 /min Dr. Danilo Oneill Work Phone: [facility] Work Phone: 01-31-2022 14:14-0400 SaO2% (BldA) [Mass fraction] 93 % Dr. Danilo Oneill Work Phone: [facility] Work Phone: 01-31-2022 14:14-0400 Systolic blood pressure 136 mm[Hg] Dr. Danilo Oneill Work Phone: [facility] Work Phone: 01-29-2022 06:56-0400 Body height 170.[address] Danilo Oneill Work Phone: [facility] Work Phone: 01-29-2022 06:56-0400 Body mass index (BMI) [Ratio] 32.3 kg/m2 Dr. Danilo Oneill Work Phone: [facility] Work Phone: 01-29-2022 06:56-0400 Body weight 93.[address] Danilo Oneill Work Phone: [facility] Work Phone: 01-26-2022 18:50-0400 Body temperature 97 [degF] [facility] Work Phone: 01-26-2022 18:50-0400 Diastolic blood pressure 62 mm[Hg] [facility] Work Phone: 01-26-2022 18:50-0400 Heart rate 80 /min [facility] Work Phone: 01-26-2022 18:50-0400 Respiratory rate 17 /min [facility] Work Phone: 01-26-2022 18:50-0400 SaO2% (BldA) [Mass fraction] 98 % [facility] Work Phone: 01-26-2022 18:50-0400 Systolic blood pressure 153 mm[Hg] [facility] Work Phone: 01-26-2022 16:01-0400 Body height 170.18 cm [facility] Work Phone: 01-26-2022 16:01-0400 Body mass index (BMI) [Ratio] 33.5 kg/m2 [facility] Work Phone: 01-26-2022 16:01-0400 Body weight 97 kg [facility] Work Phone: Encounters Encounter Date Encounter Type Care Provider Facility Start: 08-22-2025 ambulatory TAYLOR BRANDON Facilit y:[facility] Start: 08-19-2025 End: 08-19-2025 ambulatory TAYLOR BRANDON Facility:[facility] Start: 08-18-2025 ambulatory TAYLOR BRANDON Facilit y:[facility] Start: 08-15-2025 ambulatory TAYLOR BRANDON Facilit y:[facility] Start: 08-10-2025 ambulatory TAYLOR BRANDON Facilit y:[facility] Start: 08-09-2025 End: 08-13-2025 Evaluation and management of inpatient SHUKRILORIE MELENDEZGINA [employer] [facility] Start: 08-05-2025 End: 08-09-2025 Evaluation and management of inpatient ALINA LOYA MD FACP [facility] Start: 08-05-2025 Dr. Antoni Argueta [facility] Work Phone: Start: 08-04-2025 Dr. Antoni Argueta [facility] Work Phone: Start: 08-03-2025 Dr. Antoni Argueta [facility] Work Phone: Start: 08-03-2025 Karlee PEARSON - [facility] Start: 08-02-2025 Dr. Antoni Argueta [facility] Work Phone: Start: 08-01-2025 Dr. Antoni Argueta DO [facility] Work Phone: Start: 07-31-2025 Dr. Gena Porter MD [facility] Work Phone: Start: 07-30-2025 Dr. Gena Porter MD [facility] Work Phone: Start: 07-29-2025 ambulatory [facility] Start: 07-29-2025 Kamron Friend DO -[facility] Start: 07-29-2025 Dr. William Chavez DO -[facility] Start: 07-28-2025 Kamron Audubon DO -[facility] Start: 07-28-2025 Dr. William Chavez DO -[facility] -[facility] Start: 07-27-2025 Dr. William Chavez DO -[facility] Start: 07-26-2025 ambulatory Kamron Audubon Facility :[facility] Start: 07-26-2025 Kamron Audubon DO -[facility] Start: 07-26-2025 Dr. William Chavez DO -[facility] Start: 07-25-2025 [facility] DO -[facility] Start: 07-25-2025 Dr. Jonel Lorenzo MD [facility] Work Phone: Start: 07-24-2025 Dr. Ying Jay DO -[facility] Work Phone: Start: 07-23-2025 ambulatory TAYLOR TAYLOR Facilit y:[facility] Start: 07-23-2025 Dr. Andreina Guardado MD - [facility] Start: 2025 Kamron Friend DO -[facility] Start: 2025 ambulatory [facility] Facility:[facility] Start: 2025 End: 08-05-2025 Evaluation and management of inpatient Dr. Dulce Maria Raymond MD -Progressive Care Unit Start: 2025 End: 08-05-2025 Dr. Antoni Argueta DO -Progressive Care Unit Work Phone: Start: 06-11-2025 ambulatory [facility] Facility :[facility] Start: 05-23-2025 End: 05-23-2025 ambulatory TAYLOR BRANDON [employer] Facility:[facility] Start: 05-23-2025 End: 05-23-2025 Patient encounter procedure TAYLOR TAYLOR [employer] [facility] Start: 05-16-2025 ambulatory [facility] Facility :[facility] Start: 12-24-2024 End: 12-24-[address] Danilo Oneill DO Work Phone: [facility] Work Phone: Start: 12-24-2024 End: 12-24-[address] Jane Jay DO -Laboratory Work Phone: Start: 12-24-2024 End: 12-24-2024 ambulatory [facility] Facility:[facility] Start: 12-17-2024 End: 12-17-[address] Danilo Oneill DO Work Phone: [facility] Work Phone: Start: 12-17-2024 End: 12-17-[address] Jane Jay DO -Laboratory Work Phone: Start: 12-17-2024 End: 12-17-2024 ambulatory [facility] Facility:[facility] Start: 08-23-2024 End: 08-23-2024 ambulatory Jane Jay Facility:[facility] Start: 06-17-2024 End: 06-21-2024 Outreach Lab TAYLOR TAYLOR [employer] [facility] Start: 11-18-2023 End: 11-18-[address] Danilo Oneill Work Phone: [facility] Work Phone: Start: 11-18-2023 End: 11-18-[address] Danilo Oneill Work Phone: [facility]-Laboratory, Phy Office 3rd Flr Start: 11-11-2023 End: 11-11-[address] Danilo Oneill Work Phone: [facility] Work Phone: Start: 11-11-2023 End: 11-11-[address] Danilo Oneill Work Phone: [facility]-Laboratory Work Phone: Start: 07-30-2023 Non-patient / Non-visit Dr. Veronica Oneill Work Phone: [facility] Work Phone: Start: 07-29-2023 Non-patient / Non-visit Dr. Veronica Oneill Work Phone: [facility] Work Phone: Start: 07-28-2023 Non-patient / Non-visit Dr. Veronica Oneill Work Phone: [facility] Work Phone: Start: 07-28-2023 End: 07-30-2023 Evaluation and management of inpatient [facility]-Progressive Care Unit Work Phone: Start: 06-30-2023 End: 06-30-2023 ambulatory [facility] Work Phone: Start: 06-30-2023 End: 06-30-2023 Patient encounter procedure [facility]-Laboratory Work Phone: Start: 03-15-2023 End: 03-15-2023 Emergency department patient visit [facility]-Emergency Department Start: 01-07-2023 End: 01-07-2023 ambulatory [facility] Work Phone: Start: 01-07-2023 End: 01-07-2023 Patient encounter procedure [facility]-Laboratory Start: 12-30-2022 End: 12-30-2022 ambulatory [facility] Work Phone: Start: 12-30-2022 End: 12-30-2022 Patient encounter procedure [facility]-Laboratory Start: 10-21-2022 End: 10-21-2022 ambulatory [facility] Work Phone: Start: 10-21-2022 End: 10-21-2022 Patient encounter procedure [facility]-Cat Scan, [facility] Start: 09-24-2022 ambulatory DANILO ONEILL DO Facil ity:A Start: 09-17-2022 End: 09-17-2022 ambulatory [facility] Work Phone: Start: 09-17-2022 End: 09-17-2022 Patient encounter procedure [facility]-Laboratory, Phy Office 3rd Flr Start: 09-10-2022 End: 09-10-2022 ambulatory [facility] Work Phone: Start: 09-10-2022 End: 09-10-2022 Patient encounter procedure [facility]-Laboratory Start: 06-11-2022 End: 06-11-2022 ambulatory [facility] Work Phone: Start: 06-11-2022 End: 06-11-2022 Patient encounter procedure [facility]-Laboratory Start: 05-28-2022 End: 05-28-2022 Patient encounter procedure [facility]-Laboratory Start: 01-31-2022 End: 02-16-2022 Evaluation and management of inpatient [facility]-Transitional Care Unit Start: 01-31-2022 Non-patient / Non-visit Dr. Veronica Oneill Work Phone: [facility] Start: 01-30-2022 Non-patient / Non-visit Dr. Veronica Oneill Work Phone: [facility] Start: 01-29-2022 Non-patient / Non-visit Dr. Veronica Oneill Work Phone: [facility] Start: 01-28-2022 Non-patient / Non-visit Dr. Veronica Oneill Work Phone: [facility] Start: 01-27-2022 Non-patient / Non-visit Dr. Veronica Oneill Work Phone: [facility] Start: 01-26-2022 Non-patient / Non-visit Dr. Veronica Oneill Work Phone: [facility] Start: 01-26-2022 End: 01-31-2022 Evaluation and management of inpatient [facility]-Medical Surgical 3 Start: 04-12-2017 End: 04-12-2017 Emergency department patient visit BURKEIVY GRAMAJO Facility:[facility] Procedures Date Procedure Procedure Detail Performing Clinician Start: 08-05-[address] Dulce Maria Raymond MD Start: 08-05-2025 Mean corpuscular hemoglobin concentration determination Dr. Dulce Maria Raymond MD Start: 08-05-2025 Platelet mean volume determination Dr. Bharat Raymond MD Start: 08-04-[address] Dulce Maria Raymond MD Start: 07-29-[address] Dulce Maria navarrete MD Start: 07-29-2025 Myelocyte percent differential count Dr. Dulce Maria Raymond MD Start: 07-29-[address] Dulce Maria Raymond MD Start: 07-29-2025 Neutrophil percent differential count Dr. Dulce Maria Raymond MD Start: 07-28-2025 Plain chest X-ray Dr. Dulce Maria Raymond MD Start: 07-28-[address] Dulce Maria Raymond MD Start: 07-26-[address] Dulce Maria navarrete MD Start: 07-25-2025 Carbon dioxide measurement, partial pressure Dr. Dulce Maria Raymond MD Start: 07-25-2025 Measurement of partial pressure of oxygen in blood Dr. Dulce Maria Raymond MD Start: 07-25-[address] Dulce Maria Raymond MD Start: 07-25-[address] Dulce Mraia Raymond MD Start: 07-25-2025 Plain chest X-ray Dr. Dulce Maria Raymond MD Start: 07-25-2025 Nucleated red blood cell count procedure Dr. Dulce Maria Raymond MD Start: 07-24-2025 Calculation of international normalized ratio Dr. Dulce Maria Raymond MD Start: 07-24-2025 Serum inorganic phosphate measurement Dr. Dulce Maria Raymond MD Start: 07-23-2025 Us retroperitoneal real time w/image complete Dr. Dulce Maria Raymond MD Start: 07-23-[address] Dulce Maria antony MD Start: 2025 Plain chest X-ray Dr. Dulce Maria Ryamond MD Start: 2025 Plain chest X-ray Dr. Dulce Maria Raymond MD Start: 2025 CT angiography of chest with contrast Dr. Dulce Maria Raymond MD Start: 2025 CT of soft tissues of neck with contrast Dr. Dulce Maria Raymond MD Start: [address] Dulce Maria Raymond MD Start: [address] Dulce Maria Raymond MD Start: [address] Dulce Maria Raymond MD Start: [address] Dulce Maria Raymond MD Start: [address] Dulce Maria Raymond MD Start: 2025 Dr. Dulce Maria Raymond MD Start: 2025 Urine microscopy: red cells Dr. Dulce Maria marlow MD Start: 2025 Urnls dip stick/tablet reagent auto microscopy Dr. Dulce Maria Raymond MD Start: [address] Dulce Maria Raymond MD Start: 2025 Plain chest X-ray Dr. Dulce Maria Raymond MD Start: 07-29-2023 Investigation of transfusion reaction Dr. Danilo Oneill Work Phone: Start: 07-29-2023 Microbial culture, routine Dr. Danilo Oneill Work Phone: Start: 07-28-2023 Plain chest X-ray Start: 07-28-2023 Bacteria identified in Blood by Culture Dr. Danilo Oneill Work Phone: Start: 07-28-2023 Legionella pneumophila antigen assay Dr. Danilo Oneill Work Phone: Start: 07-28-2023 SARS-CoV-2 & FLU Antigen (Rapid) Start: 07-28-2023 Streptococcus pneumoniae Antigen (M Dr. Danilo Oneill Work Phone: Start: 07-28-[address] Danilo Oneill Work Phone: Start: 03-15-2023 Radiologic examination of knee Start: 10-21-2022 CT of chest Start: 01-31-2022 End: 01-31-[address] Danilo Oneill Work Phone: Start: 01-29-[address] Danilo Oneill Work Phone: Start: 01-29-[address] Danilo Oneill Work Phone: Start: 01-29-[address] Danilo Oneill Work Phone: Start: 01-29-2022 Open reduction with internal fixation Dr. Danilo Oneill Work Phone: Start: 01-26-2022 MRI of lower extremity Start: 01-26-2022 Plain chest X-ray Start: 01-26-2022 End: 01-26-2022 Radiography of ankle Start: 01-26-2022 End: 01-26-2022 Viral antigen assay History of cholecystectomy Statu s post cholecystectomy TAYLOR TAYLOR [employer] History of cholecystectomy Hx la paroscopic cholecystectomy Dr. Danilo Oneill DO Work Phone: Viral antigen assay Plan of Treatment Date Care Activity Detail Author Start: 08-05-2025 Patient discharge [facility] Start: 08-04-2025 Introduction of urinary catheter [facility] Start: 08-04-2025 [facility] Start: 08-01-2025 [facility] Start: 07-30-2025 Patient referral to dietitian [facility] Start: 07-30-2025 [facility] Start: 07-29-2025 Following clinical pathway protocol [facility] Start: 07-29-2025 Care planning and problem solving actions [facility] Start: 07-29-2025 Implementation of planned interventions [facility] Start: 07-29-2025 Notification of physician [facility] Start: 07-28-2025 End: 07-29-2025 [facility] Start: 07-28-2025 Care planning and problem solving actions [facility] Start: 07-28-2025 Care planning and problem solving actions [facility] Start: 07-28-2025 [facility] Start: 07-25-2025 Application of intermittent pneumatic compression device [facility] Start: 07-25-2025 [facility] Start: 07-23-2025 End: 07-24-2025 [facility] Start: 07-23-2025 Respiratory therapy [facility] Start: 07-23-2025 Care planning and problem solving actions [facility] Start: 2025 Determination of Palumbo Agitation Sedation Scale (RASS) score with assessment for d [facility] Start: 2025 Elevation of head of bed [facility] Start: 2025 Mouth care [facility] Start: 2025 Respiratory therapy [facility] Start: 2025 Tracheostomy care [facility] Start: 2025 Trial for daily interruption of sedation during mechanically assisted ventilation [facility] Start: 2025 End: 2025 [facility] Start: 2025 Care regimes management [facility] Start: 2025 End: 2025 Notification of physician [facility] Start: 2025 End: 2025 Following clinical pathway protocol [facility] Start: 2025 Ambulation without limitation [facility] Start: 2025 Assessment of risk of venous thromboembolism [facility] Start: 2025 Inhalation therapy procedure [facility] Start: 2025 Insertion of catheter into peripheral vein [facility] Start: 2025 Measuring intake and output [facility] Start: 2025 Oxygen therapy [facility] Start: 2025 Providing care according to standard [facility] Start: 2025 Referral for physical therapy [facility] Start: 2025 Referral to gastroenterology service [facility] Start: 2025 Referral to occupational therapist [facility] Start: 2025 Referral to service [facility] Start: 2025 Speech therapy assessment [facility] Start: 2025 [facility] Start: 2025 Admission procedure [facility] Start: 2025 End: 2025 [facility] Start: 07-30-2023 Patient discharge [facility] Start: 07-29-2023 Referral to service [facility] Start: 07-29-2023 Microbial culture, routine Wound Culture [facility] Start: 07-29-2023 Wound care [facility] Start: 07-29-2023 Referral to service [facility] Start: 07-29-2023 Verification routine [facility] Start: 07-29-2023 Bacteria identified in Sputum by Culture [facility] Start: 07-29-2023 Referral to occupational therapist [facility] Start: 07-29-2023 Referral to service [facility] Start: 07-29-2023 Consultation for treatment [facility] Start: 07-29-2023 [facility] Start: 07-28-2023 Following clinical pathway protocol [facility] Start: 07-28-2023 Assessment of risk of venous thromboembolism [facility] Start: 07-28-2023 Cardiac monitoring [facility] Start: 07-28-2023 Care regimes management [facility] Start: 07-28-2023 Catheterization of vein [facility] Start: 07-28-2023 Inhalation therapy procedure [facility] Start: 07-28-2023 Insertion of catheter into peripheral vein [facility] Start: 07-28-2023 Notification of physician [facility] Start: 07-28-2023 Oxygen therapy [facility] Start: 07-28-2023 Providing care according to standard [facility] Start: 07-28-2023 Provision of activity privileges [facility] Start: 07-28-2023 Referral to service [facility] Start: 07-28-2023 [facility] Start: 07-28-2023 Verification routine [facility] Start: 07-28-2023 Admission procedure [facility] Start: 07-28-2023 Hospital admission, emergency, from emergency room, medical nature [facility] Start: 07-28-2023 End: 07-28-2023 Blood culture [facility] Start: 07-28-2023 Streptococcus pneumoniae antigen assay [facility] Start: 07-28-2023 [facility] Start: 07-28-2023 Bacteria identified in Blood by Culture Blood Culture [facility] Start: 07-28-2023 Legionella Antigen Legionella Antigen [facility] Start: 07-28-2023 Streptococcus pneumoniae Antigen (M Streptococcus pneumoniae Antigen (M [facility] Start: 07-28-2023 Patient referral to dietitian [facility] Start: 02-16-[address] [facility] Work Phone: Start: 02-16-2022 Patient discharge [facility] Work Phone: Start: 02-15-2022 [facility] Work Phone: Start: 02-09-2022 [facility] Work Phone: Start: 02-01-[address] [facility] Work Phone: Start: 02-01-2022 Developing a treatment plan [facility] Work Phone: Start: 01-31-2022 Referral to resident hall director [facility] Work Phone: Start: 01-31-2022 Oxygen therapy [facility] Work Phone: Start: 01-31-2022 Following clinical pathway protocol [facility] Work Phone: Start: 01-31-2022 Admission procedure [facility] Work Phone: Start: 01-31-2022 Measuring intake and output [facility] Work Phone: Start: 01-31-2022 Patient referral to dietitian [facility] Work Phone: Start: 01-31-2022 Referral to occupational therapist [facility] Work Phone: Start: 01-31-2022 Referral to service [facility] Work Phone: Start: 01-31-[address] [facility] Work Phone: Start: 01-31-2022 End: 01-31-2022 [facility] Work Phone: Legionella pneumophi la Ag [Presence] in Urine [facility] Patient Education ED [facility] Work Phone: Patient referral [facility] Work Phone: Immunizations Immunization Date Immunization Notes Care Provider [facility] 08-06-2025 influenza, high dose seasonal, preservative-free ALINA LOYA MD FAC [facility] 07-24-2023 influenza virus vacc ine, unspecified formulation TAYLOR BRANDON [employer] SUBCONTRACTOR-LOBSTER CATCHER [facility] [employer] 07-24-2023 RSV vaccine, preF A- preF B, recombinant TAYLOR BRANDON [employer]ERCIAL SUBCONTRACTOR-LOBSTER CATCHER [facility] [employer] 08-06-2022 influenza virus vacc ine, unspecified formulation TAYLOR BRANDON COMMERCIAL SUBCONTRACTOR-LOBSTER CATCHER [facility] [employer] 02-05-2022 Covid (Pfizer) [facility] Comment on above: Result Comment: 2022: [id number] 07-14-2021 Covid (Pfizer) [facility] 07-14-2021 influenza virus vacc ine, unspecified formulation TAYLOR BRANDON COMMERCIAL SUBCONTRACTOR-LOBSTER CATCHER [facility] [employer] 07-14-2021 Influenza, high dose seasonal Dr. Danilo Oneill DO Work Phone: [facility] 07-14-2021 influenza, high dose seasonal, preservative-free [facility] 07-14-2021 Dr. Dulce Maria Raymond MD [facility] 01-09-2021 Covid (Pfizer) [facility] 12-19-2020 Covid (Pfizer) [facility] Comment on above: Result Comment: 2020: [id number] 08-05-2018 influenza virus vacc ine, unspecified formulation TAYLOR BRANDON COMMERCIAL SUBCONTRACTOR-LOBSTER CATCHER [facility] 07-02-2017 influenza virus vacc ine, unspecified formulation TAYLOR BRANDON COMMERCIAL SUBCONTRACTOR-LOBSTER CATCHER [facility] 04-12-2017 tetanus toxoid, redu wiliam diphtheria toxoid, and acellular pertussis vaccine, adsorbed TAYLOR BRANDON COMMERCIAL SUBCONTRACTOR-LOBSTER CATCHER [facility] 10-13-2016 influenza virus vacc ine, unspecified formulation TAYLOR BRANDON COMMERCIAL SUBCONTRACTOR-LOBSTER CATCHER [facility] 08-22-2016 influenza virus vacc ine, unspecified formulation TAYLOR BRANDON COMMERCIAL SUBCONTRACTOR-LOBSTER CATCHER [facility] 07-15-2016 Influenza virus vaccine [facility] 07-15-2016 Dr. Dulce Maria Raymond MD [facility] 10-13-2015 tetanus toxoid, redu wiliam diphtheria toxoid, and acellular pertussis vaccine, adsorbed [facility] 07-10-2015 influenza virus vacc ine, unspecified formulation TAYLOR BRANDON COMMERCIAL SUBCONTRACTOR-LOBSTER CATCHER [facility] 07-20-2014 influenza virus vacc ine, unspecified formulation TAYLOR BRANDON COMMERCIAL SUBCONTRACTOR-LOBSTER CATCHER [facility] 10-13-2013 pneumococcal polysaccharide vaccine, 23 valent [facility] 10-13-2012 influenza virus vacc ine, unspecified formulation TAYLOR TAYLOR [employer]CIAL SUBCONTRACTOR-LOBSTER CATCHER [facility] [place] 10-13-2011 pneumococcal conjuga te vaccine, 13 [facility] 09-25-2009 novel influenza-H1N1 -09, preservative-free, injectable [facility] Payers Date Payer Category Payer Medicare [id number] 2024 Self-pay [id number] 2024 Private Health Insurance [id number] 2022 Private Health Insurance [id number] 2017 Private Health Insurance [id number] 2011 Medicare [id number] 1945 Unknown [id number] 2.16.8 40.1.632175.3.579.2.627 1945 Unknown [id number] 2.16. 840.1.796969.3.579.2.627 1945 Unknown [id number] 2.16. 840.1.740162.3.579.2.627 1945 Unknown [id number] 2.16. 840.1.156959.3.579.2.627 Unknown [id number] 2.16.8 40.1.919348.3.579.2.462 Unknown [id number] 2.16.8 40.1.294543.3.579.2.462 Unknown [id number] 2.16.8 40.1.315223.3.579.2.462 Unknown [id number] 2.16.8 40.1.320783.3.579.2.462 Unknown [id number] 2.16.8 40.1.935044.3.579.2.462 Unknown [id number] 2.16.8 40.1.464604.3.579.2.462 Unknown [id number] 2.16.8 40.1.491111.3.579.2.462 Unknown [id number] 2.16.8 40.1.622645.3.579.2.462 Unknown [id number] 2.16.8 40.1.750316.3.579.2.462 Unknown [id number] 2.16.8 40.1.801681.3.579.2.462 Unknown [id number] 2.16.8 40.1.431538.3.579.2.462 Unknown [id number] 2.16.8 40.1.317252.3.579.2.462 Unknown [id number] 2.16.8 40.1.058093.3.579.2.462 Unknown [id number] 2.16.8 40.1.745346.3.579.2.462 Unknown [id number] 2.16.8 40.1.137745.3.579.2.462 Unknown [id number] 2.16.8 40.1.536812.3.579.2.462 Unknown [id number] 2.16.8 40.1.719900.3.579.2.462 Unknown [id number] 2.16.8 40.1.313681.3.579.2.462 Unknown [id number] 2.16.8 40.1.358359.3.579.2.462 Unknown [id number] 2.16.8 40.1.056074.3.579.2.462 Unknown [id number] 2.16.8 40.1.298734.3.579.2.462 Unknown [id number] 2.16.8 40.1.378805.3.579.2.462 Unknown [id number] 2.16.8 40.1.486661.3.579.2.462 Unknown [id number] 2.16.8 40.1.326267.3.579.2.462 Unknown [id number] 2.16.8 40.1.752403.3.579.2.462 Unknown [id number] 2.16.8 40.1.641852.3.579.2.462 Unknown [id number] 2.16.8 40.1.023455.3.579.2.462 Unknown [id number] 2.16.8 40.1.457474.3.579.2.462 Unknown [id number] 2.16.8 40.1.252170.3.579.2.462 Unknown [id number] 2.16.8 40.1.321650.3.579.2.462 Unknown [id number] 2.16.8 40.1.964487.3.579.2.462 Unknown [id number] 2.16.8 40.1.309350.3.579.2.462 Unknown [id number] 2.16.8 40.1.580556.3.579.2.462 Unknown [id number] 2.16.8 40.1.732571.3.579.2.462 Unknown [id number] 2.16.8 40.1.604492.3.579.2.462 Unknown [id number] 2.16.8 40.1.327375.3.579.2.462 Unknown [id number] 2.16.8 40.1.979969.3.579.2.462 Unknown [id number] 2.16.8 40.1.987931.3.579.2.462 Social History Date Type Detail Facility Start: 01-26-2022 End: 07-28-2023 Tobacco smoking status IDIS Unknown if ever smoked [facility] Start: 07-19-2020 None [facility] Start: 07-19-2020 With Family [facility] Start: 02-27-2021 Non-smoker [facility] Start: 1945 Sex Assigned At Female [facility] Start: 11-11-2023 End: 08-05-2025 Tobacco smoking status Ex-smoker (finding) [facility] Start: 04-07-2019 End: 12-30-2024 Sex Female (finding) [facility] Sexual Orientation [facility] Sex [facility] Sexual Sexually active: No. [facility] Start: 08-05-2025 End: 08-09-2025 Not applicable (qualifier value) [facility] Medical Equipment Procedure Code Equipment Code Equipment Original Text Equipment Identifier Dates Total cholecystectomy with exploration of common bile duct [id number] FDA Start: 03-02-2024 ORIF, ankle 1.35 MM KWIRE FDA Start: 01-29-2022 ORIF, ankle 3.5 LOCKING FDA Start: 01-29-2022 ORIF, ankle 3.5 LOCKING FDA Start: 01-29-2022 ORIF, ankle 3.5 LOCKING FDA Start: 01-29-2022 ORIF, ankle 3.5 LOCKING FDA Start: 01-29-2022 ORIF, ankle 6 HOLE DISTAL FIBULA LOCKING FDA Start: 01-29-2022 ORIF, ankle [id number] FDA Start: 01-29-2022 ORIF, ankle 1.35 MM KWIRE FDA Start: 01-29-2022 ORIF, ankle 3.0 ROGELIO LOCKING SCREW FDA Start: 01-29-2022 ORIF, ankle 3.0 ROGELIO LOCKING SCREW FDA Start: 01-29-2022 ORIF, ankle 3.0VAL LOCKING SCREW FDA Start: 01-29-2022 ORIF, ankle 3.0VAL LOCKING SCREW FDA Start: 01-29-2022 ORIF, ankle 3.0VAL LOCKING SCREW FDA Start: 01-29-2022 ORIF, ankle 3.5 CORTICAL FDA Start: 01-29-2022 ORIF, ankle 3.5 CORTICAL FDA Start: 01-29-2022 ORIF, ankle 1.35 MM KWIRE FDA Start: 01-29-2022 ORIF, ankle 3.5 LOCKING FDA Start: 01-29-2022 ORIF, ankle 3.5 LOCKING FDA Start: 01-29-2022 ORIF, ankle 3.5 LOCKING FDA Start: 01-29-2022 ORIF, ankle 3.5 LOCKING FDA Start: 01-29-2022 ORIF, ankle 6 HOLE DISTAL FIBULA LOCKING FDA Start: 01-29-2022 ORIF, ankle 1.35 MM KWIRE FDA Start: 01-29-2022 ORIF, ankle 3.0 ROGELIO LOCKING SCREW FDA Start: 01-29-2022 ORIF, ankle 3.0 ROGELIO LOCKING SCREW FDA Start: 01-29-2022 ORIF, ankle 3.0VAL LOCKING SCREW FDA Start: 01-29-2022 ORIF, ankle 3.0VAL LOCKING SCREW FDA Start: 01-29-2022 ORIF, ankle 3.0VAL LOCKING SCREW FDA Start: 01-29-2022 ORIF, ankle 3.5 CORTICAL FDA Start: 01-29-2022 ORIF, ankle 3.5 CORTICAL FDA Start: 01-29-2022 ORIF, ankle 1.35 MM KWIRE FDA Start: 01-29-2022 ORIF, ankle 3.5 LOCKING FDA Start: 01-29-2022 ORIF, ankle 3.5 LOCKING FDA Start: 01-29-2022 ORIF, ankle 3.5 LOCKING FDA Start: 01-29-2022 ORIF, ankle 3.5 LOCKING FDA Start: 01-29-2022 ORIF, ankle 6 HOLE DISTAL FIBULA LOCKING FDA Start: 01-29-2022 ORIF, ankle 1.35 MM KWIRE FDA Start: 01-29-2022 ORIF, ankle 3.0 ROGELIO LOCKING SCREW FDA Start: 01-29-2022 ORIF, ankle 3.0 ROGELIO LOCKING SCREW FDA Start: 01-29-2022 ORIF, ankle 3.0VAL LOCKING SCREW FDA Start: 01-29-2022 ORIF, ankle 3.0VAL LOCKING SCREW FDA Start: 01-29-2022 ORIF, ankle 3.0VAL LOCKING SCREW FDA Start: 01-29-2022 ORIF, ankle 3.5 CORTICAL FDA Start: 01-29-2022 ORIF, ankle 3.5 CORTICAL FDA Start: 01-29-2022 ORIF, ankle 1.35 MM KWIRE FDA Start: 01-29-2022 ORIF, ankle 3.5 LOCKING FDA Start: 01-29-2022 ORIF, ankle 3.5 LOCKING FDA Start: 01-29-2022 ORIF, ankle 3.5 LOCKING FDA Start: 01-29-2022 ORIF, ankle 3.5 LOCKING FDA Start: 01-29-2022 ORIF, ankle 6 HOLE DISTAL FIBULA LOCKING FDA Start: 01-29-2022 ORIF, ankle 1.35 MM KWIRE FDA Start: 01-29-2022 ORIF, ankle 3.0 ROGELIO LOCKING SCREW FDA Start: 01-29-2022 ORIF, ankle 3.0 ROGELIO LOCKING SCREW FDA Start: 01-29-2022 ORIF, ankle 3.0VAL LOCKING SCREW FDA Start: 01-29-2022 ORIF, ankle 3.0VAL LOCKING SCREW FDA Start: 01-29-2022 ORIF, ankle 3.0VAL LOCKING SCREW FDA Start: 01-29-2022 ORIF, ankle 3.5 CORTICAL FDA Start: 01-29-2022 ORIF, ankle 3.5 CORTICAL FDA Start: 01-29-2022 ORIF, ankle 1.35 MM KWIRE FDA Start: 01-29-2022 ORIF, ankle 3.5 LOCKING FDA Start: 01-29-2022 ORIF, ankle 3.5 LOCKING FDA Start: 01-29-2022 ORIF, ankle 3.5 LOCKING FDA Start: 01-29-2022 ORIF, ankle 3.5 LOCKING FDA Start: 01-29-2022 ORIF, ankle 6 HOLE DISTAL FIBULA LOCKING FDA Start: 01-29-2022 ORIF, ankle 1.35 MM KWIRE FDA Start: 01-29-2022 ORIF, ankle 3.0 ROGELIO LOCKING SCREW FDA Start: 01-29-2022 ORIF, ankle 3.0 ROGELIO LOCKING SCREW FDA Start: 01-29-2022 ORIF, ankle 3.0VAL LOCKING SCREW FDA Start: 01-29-2022 ORIF, ankle 3.0VAL LOCKING SCREW FDA Start: 01-29-2022 ORIF, ankle 3.0VAL LOCKING SCREW FDA Start: 01-29-2022 ORIF, ankle 3.5 CORTICAL FDA Start: 01-29-2022 ORIF, ankle 3.5 CORTICAL FDA Start: 01-29-2022 ORIF, ankle 1.35 MM KWIRE FDA Start: 01-29-2022 ORIF, ankle 3.5 LOCKING FDA Start: 01-29-2022 ORIF, ankle 3.5 LOCKING FDA Start: 01-29-2022 ORIF, ankle 3.5 LOCKING FDA Start: 01-29-2022 ORIF, ankle 3.5 LOCKING FDA Start: 01-29-2022 ORIF, ankle 6 HOLE DISTAL FIBULA LOCKING FDA Start: 01-29-2022 ORIF, ankle 1.35 MM KWIRE FDA Start: 01-29-2022 ORIF, ankle 3.0 ROGELIO LOCKING SCREW FDA Start: 01-29-2022 ORIF, ankle 3.0 ROGELIO LOCKING SCREW FDA Start: 01-29-2022 ORIF, ankle 3.0VAL LOCKING SCREW FDA Start: 01-29-2022 ORIF, ankle 3.0VAL LOCKING SCREW FDA Start: 01-29-2022 ORIF, ankle 3.0VAL LOCKING SCREW FDA Start: 01-29-2022 ORIF, ankle 3.5 CORTICAL FDA Start: 01-29-2022 ORIF, ankle 3.5 CORTICAL FDA Start: 01-29-2022 ORIF, ankle 1.35 MM KWIRE FDA Start: 01-29-2022 ORIF, ankle 3.5 LOCKING FDA Start: 01-29-2022 ORIF, ankle 3.5 LOCKING FDA Start: 01-29-2022 ORIF, ankle 3.5 LOCKING FDA Start: 01-29-2022 ORIF, ankle 3.5 LOCKING FDA Start: 01-29-2022 ORIF, ankle 6 HOLE DISTAL FIBULA LOCKING FDA Start: 01-29-2022 ORIF, ankle 1.35 MM KWIRE FDA Start: 01-29-2022 ORIF, ankle 3.0 ROGELIO LOCKING SCREW FDA Start: 01-29-2022 ORIF, ankle 3.0 ROGELIO LOCKING SCREW FDA Start: 01-29-2022 ORIF, ankle 3.0VAL LOCKING SCREW FDA Start: 01-29-2022 ORIF, ankle 3.0VAL LOCKING SCREW FDA Start: 01-29-2022 ORIF, ankle 3.0VAL LOCKING SCREW FDA Start: 01-29-2022 ORIF, ankle 3.5 CORTICAL FDA Start: 01-29-2022 ORIF, ankle 3.5 CORTICAL FDA Start: 01-29-2022 ORIF, ankle 1.35 MM KWIRE FDA Start: 01-29-2022 ORIF, ankle 3.5 LOCKING FDA Start: 01-29-2022 ORIF, ankle 3.5 LOCKING FDA Start: 01-29-2022 ORIF, ankle 3.5 LOCKING FDA Start: 01-29-2022 ORIF, ankle 3.5 LOCKING FDA Start: 01-29-2022 ORIF, ankle 6 HOLE DISTAL FIBULA LOCKING FDA Start: 01-29-2022 ORIF, ankle 1.35 MM KWIRE FDA Start: 01-29-2022 ORIF, ankle 3.0 ROGELIO LOCKING SCREW FDA Start: 01-29-2022 ORIF, ankle 3.0 ROGELIO LOCKING SCREW FDA Start: 01-29-2022 ORIF, ankle 3.0VAL LOCKING SCREW FDA Start: 01-29-2022 ORIF, ankle 3.0VAL LOCKING SCREW FDA Start: 01-29-2022 ORIF, ankle 3.0VAL LOCKING SCREW FDA Start: 01-29-2022 ORIF, ankle 3.5 CORTICAL FDA Start: 01-29-2022 ORIF, ankle 3.5 CORTICAL FDA Start: 01-29-2022 ORIF, ankle 1.35 MM KWIRE FDA Start: 01-29-2022 ORIF, ankle 3.5 LOCKING FDA Start: 01-29-2022 ORIF, ankle 3.5 LOCKING FDA Start: 01-29-2022 ORIF, ankle 3.5 LOCKING FDA Start: 01-29-2022 ORIF, ankle 3.5 LOCKING FDA Start: 01-29-2022 ORIF, ankle 6 HOLE DISTAL FIBULA LOCKING FDA Start: 01-29-2022 ORIF, ankle 1.35 MM KWIRE FDA Start: 01-29-2022 ORIF, ankle 3.0 ROGELIO LOCKING SCREW FDA Start: 01-29-2022 ORIF, ankle 3.0 ROGELIO LOCKING SCREW FDA Start: 01-29-2022 ORIF, ankle 3.0VAL LOCKING SCREW FDA Start: 01-29-2022 ORIF, ankle 3.0VAL LOCKING SCREW FDA Start: 01-29-2022 ORIF, ankle 3.0VAL LOCKING SCREW FDA Start: 01-29-2022 ORIF, ankle 3.5 CORTICAL FDA Start: 01-29-2022 ORIF, ankle 3.5 CORTICAL FDA Start: 01-29-2022 ORIF, ankle 1.35 MM KWIRE FDA Start: 01-29-2022 ORIF, ankle 3.5 LOCKING FDA Start: 01-29-2022 ORIF, ankle 3.5 LOCKING FDA Start: 01-29-2022 ORIF, ankle 3.5 LOCKING FDA Start: 01-29-2022 ORIF, ankle 3.5 LOCKING FDA Start: 01-29-2022 ORIF, ankle 6 HOLE DISTAL FIBULA LOCKING FDA Start: 01-29-2022 ORIF, ankle 1.35 MM KWIRE FDA Start: 01-29-2022 ORIF, ankle 3.0 ROGELIO LOCKING SCREW FDA Start: 01-29-2022 ORIF, ankle 3.0 ROGELIO LOCKING SCREW FDA Start: 01-29-2022 ORIF, ankle 3.0VAL LOCKING SCREW FDA Start: 01-29-2022 ORIF, ankle 3.0VAL LOCKING SCREW FDA Start: 01-29-2022 ORIF, ankle 3.0VAL LOCKING SCREW FDA Start: 01-29-2022 ORIF, ankle 3.5 CORTICAL FDA Start: 01-29-2022 ORIF, ankle 3.5 CORTICAL FDA Start: 01-29-2022 ORIF, ankle 1.35 MM KWIRE FDA Start: 01-29-2022 ORIF, ankle 3.5 LOCKING FDA Start: 01-29-2022 ORIF, ankle 3.5 LOCKING FDA Start: 01-29-2022 ORIF, ankle 3.5 LOCKING FDA Start: 01-29-2022 ORIF, ankle 3.5 LOCKING FDA Start: 01-29-2022 ORIF, ankle 6 HOLE DISTAL FIBULA LOCKING FDA Start: 01-29-2022 ORIF, ankle 1.35 MM KWIRE FDA Start: 01-29-2022 ORIF, ankle 3.0 ROGELIO LOCKING SCREW FDA Start: 01-29-2022 ORIF, ankle 3.0 ROGELIO LOCKING SCREW FDA Start: 01-29-2022 ORIF, ankle 3.0VAL LOCKING SCREW FDA Start: 01-29-2022 ORIF, ankle 3.0VAL LOCKING SCREW FDA Start: 01-29-2022 ORIF, ankle 3.0VAL LOCKING SCREW FDA Start: 01-29-2022 ORIF, ankle 3.5 CORTICAL FDA Start: 01-29-2022 ORIF, ankle 3.5 CORTICAL FDA Start: 01-29-2022 ORIF, ankle 1.35 MM KWIRE FDA Start: 01-29-2022 ORIF, ankle 3.5 LOCKING FDA Start: 01-29-2022 ORIF, ankle 3.5 LOCKING FDA Start: 01-29-2022 ORIF, ankle 3.5 LOCKING FDA Start: 01-29-2022 ORIF, ankle 3.5 LOCKING FDA Start: 01-29-2022 ORIF, ankle 6 HOLE DISTAL FIBULA LOCKING FDA Start: 01-29-2022 ORIF, ankle 1.35 MM KWIRE FDA Start: 01-29-2022 ORIF, ankle 3.0 ROGELIO LOCKING SCREW FDA Start: 01-29-2022 ORIF, ankle 3.0 ROGELIO LOCKING SCREW FDA Start: 01-29-2022 ORIF, ankle 3.0VAL LOCKING SCREW FDA Start: 01-29-2022 ORIF, ankle 3.0VAL LOCKING SCREW FDA Start: 01-29-2022 ORIF, ankle 3.0VAL LOCKING SCREW FDA Start: 01-29-2022 ORIF, ankle 3.5 CORTICAL FDA Start: 01-29-2022 ORIF, ankle 3.5 CORTICAL FDA Start: 01-29-2022 ORIF, ankle 1.35 MM KWIRE FDA Start: 01-29-2022 ORIF, ankle 3.5 LOCKING FDA Start: 01-29-2022 ORIF, ankle 3.5 LOCKING FDA Start: 01-29-2022 ORIF, ankle 3.5 LOCKING FDA Start: 01-29-2022 ORIF, ankle 3.5 LOCKING FDA Start: 01-29-2022 ORIF, ankle 6 HOLE DISTAL FIBULA LOCKING FDA Start: 01-29-2022 ORIF, ankle 1.35 MM KWIRE FDA Start: 01-29-2022 ORIF, ankle 3.0 ROGELIO LOCKING SCREW FDA Start: 01-29-2022 ORIF, ankle 3.0 ROGELIO LOCKING SCREW FDA Start: 01-29-2022 ORIF, ankle 3.0VAL LOCKING SCREW FDA Start: 01-29-2022 ORIF, ankle 3.0VAL LOCKING SCREW FDA Start: 01-29-2022 ORIF, ankle 3.0VAL LOCKING SCREW FDA Start: 01-29-2022 ORIF, ankle 3.5 CORTICAL FDA Start: 01-29-2022 ORIF, ankle 3.5 CORTICAL FDA Start: 01-29-2022 ORIF, ankle 1.35 MM KWIRE FDA Start: 01-29-2022 ORIF, ankle 3.5 LOCKING FDA Start: 01-29-2022 ORIF, ankle 3.5 LOCKING FDA Start: 01-29-2022 ORIF, ankle 3.5 LOCKING FDA Start: 01-29-2022 ORIF, ankle 3.5 LOCKING FDA Start: 01-29-2022 ORIF, ankle 6 HOLE DISTAL FIBULA LOCKING FDA Start: 01-29-2022 ORIF, ankle 1.35 MM KWIRE FDA Start: 01-29-2022 ORIF, ankle 3.0 ROGELIO LOCKING SCREW FDA Start: 01-29-2022 ORIF, ankle 3.0 ROGELIO LOCKING SCREW FDA Start: 01-29-2022 ORIF, ankle 3.0VAL LOCKING SCREW FDA Start: 01-29-2022 ORIF, ankle 3.0VAL LOCKING SCREW FDA Start: 01-29-2022 ORIF, ankle 3.0VAL LOCKING SCREW FDA Start: 01-29-2022 ORIF, ankle 3.5 CORTICAL FDA Start: 01-29-2022 ORIF, ankle 3.5 CORTICAL FDA Start: 01-29-2022 ORIF, ankle 1.35 MM KWIRE FDA Start: 01-29-2022 ORIF, ankle 3.5 LOCKING FDA Start: 01-29-2022 ORIF, ankle 3.5 LOCKING FDA Start: 01-29-2022 ORIF, ankle 3.5 LOCKING FDA Start: 01-29-2022 ORIF, ankle 3.5 LOCKING FDA Start: 01-29-2022 ORIF, ankle 6 HOLE DISTAL FIBULA LOCKING FDA Start: 01-29-2022 ORIF, ankle 1.35 MM KWIRE FDA Start: 01-29-2022 ORIF, ankle 3.0 ROGELIO LOCKING SCREW FDA Start: 01-29-2022 ORIF, ankle 3.0 ROGELIO LOCKING SCREW FDA Start: 01-29-2022 ORIF, ankle 3.0VAL LOCKING SCREW FDA Start: 01-29-2022 ORIF, ankle 3.0VAL LOCKING SCREW FDA Start: 01-29-2022 ORIF, ankle 3.0VAL LOCKING SCREW FDA Start: 01-29-2022 ORIF, ankle 3.5 CORTICAL FDA Start: 01-29-2022 ORIF, ankle 3.5 CORTICAL FDA Start: 01-29-2022 ORIF, ankle FDA Start: 01-29-2022 ORIF, ankle FDA Start: 01-29-2022 ORIF, ankle FDA Start: 01-29-2022 ORIF, ankle FDA Start: 01-29-2022 ORIF, ankle FDA Start: 01-29-2022 ORIF, ankle FDA Start: 01-29-2022 ORIF, ankle FDA Start: 01-29-2022 ORIF, ankle FDA Start: 01-29-2022 ORIF, ankle FDA Start: 01-29-2022 ORIF, ankle FDA Start: 01-29-2022 ORIF, ankle FDA Start: 01-29-2022 ORIF, ankle FDA Start: 01-29-2022 ORIF, ankle FDA Start: 01-29-2022 ORIF, ankle FDA Start: 01-29-2022 ERCP (endoscopic retrograde cholangiopancreatograph y) ([id number]) [id number] FDA Start: 03-01-2024 ERCP (endoscopic retrograde cholangiopancreatograph y) ()[id number] FDA Start: 03-01-2024 EGD, with monitored anesthesia care ()[id number] FDA Start: 07-29-2025 See Instructions , Dispense One Touch glucose test strips, #200, use 1 strip twice daily as directed to test blood sugar. Diagnosis: E11.9, # 200 EA, 3 Refill(s), Pharmacy: [id number], DM (diabetes mellitus), 165, cm, 05/25/24 13:47:00 EDT, Height, 75.2, kg, 05/25/24 13:47:00 EDT, Dosing Weight Start: 05-31-2024 See Instructions , Dispense One Touch glucose test strips, #200, use 1 strip twice daily as directed to test blood sugar. Diagnosis: E11.9, # 200 EA, 3 Refill(s), Pharmacy: [facility], DM (diabetes mellitus), 165, cm, 05/25/24 13:47:00 EDT, Height, 75.2, kg, 05/25/24 13:47:00 EDT, Dosing Weight Start: 05-31-2024 See Instructions , Dispense One Touch glucose test strips, #200, use 1 strip twice daily as directed to test blood sugar. Diagnosis: E11.9, # 200 EA, 3 Refill(s), Pharmacy: [facility], DM (diabetes mellitus), 163, cm, 05/16/25 10:49:00 EDT, Height, 83, kg, 05/16/25 10:49:00 EDT, Dosing Weight Start: 05-26-2025 See Instructions , Dispense One Touch glucose test strips, #200, use 1 strip twice daily as directed to test blood sugar. Diagnosis: E11.9, # 200 EA, 3 Refill(s), Pharmacy: [facility], DM (diabetes mellitus), 163, cm, 05/16/25 10:49:00 EDT, Height, 83, kg, 05/16/25 10:49:00 EDT, Dosing Weight Start: 05-26-2025 Goals Date Patient Goal Desired Activity /State Functional Status Date Assessment Result Facility 08-13-2025 Functional Status Other: 7AM-5PM [facility] 08-13-2025 Functional Status Returned to bed [facility] 08-13-2025 Functional Status [facility] 08-13-2025 [facility] 08-13-2025 Functional Status Room check performed [facility] 08-13-2025 Functional Status [facility] 08-13-2025 Functional Status [facility] 08-12-2025 Functional Status Yes [facility] 08-12-2025 [facility] 08[facility]12-2025 [facility]-12-[facility] 08-11-2025 Functional Status Supervised [facility] 08-11-2025 Functional Status Front wheeled [facility] 08-10-2025 Functional Status Assistive Device [facility] 08-10-2025 Functional Status [facility] 08-09-2025 Functional Status Positioning Repositione d back [facility] 08-09-2025 Functional Status 1st floor bedr oom, 1st floor bathroom [facility] 08-09-2025 Functional Status Sensory Deficits None [facility] 08-09-2025 Functional Status Maintained [facility] 08-09-2025 Functional Status Identified as high risk, Fall ID band on, Room located near nursing station, Bed alert on, Door open, Non-Slip footwear [facility] 08-09-2025 [facility] 08-09-2025 Functional Status [facility] 08-08-2025 Functional Status [facility] 08-08-2025 [facility] Functional Status Mod A [facility] 08-08-2025 Functional Status OT Toilet Transfers Mod A [facility] 08-08-2025 [facility] 08-08-2025 Functional Status [facility] 08-08-2025 [facility] 08-08-2025 Functional Status [facility] 08-08-2025 Functional Status Mod A [facility] 08-07-2025 Functional Status [facility] 08-07-2025 Functional Status [facility] 08-07-2025 [facility] 08-07-2025 Functional Status One assist [facility] 08-07-2025 [facility] 08-06-2025 Functional Status Single level h ome, 1st floor bedroom, 1st floor bathroom, 1st floor [facility] 08-06-2025 Functional Status [facility] 08-05-2025 Functional Status [facility] 08-05-2025 Functional status With Assist of 1 [facility] Work Phone: 08-03-2025 Functional status Ambulates [facility] Work Phone: 07-30-2023 Functional status Ambulates;Nagi r;Bathroom Privilege [facility] Work Phone: 02-16-2022 Functional status Activity Abili ty With Assist of 1 [facility] Work Phone: 02-14-2022 Functional status Patient Activity Bedres t [facility] Work Phone: 01-31-2022 Functional status Bedrest [facility] Work Phone: Mental Status Date Assessment Result Facility 08-12-2025 Mental Status [facility] 08-12-2025 Mental Status [facility] 08-12-2025 Mental [facility] 08-09-[facility]25 Mental Status Oriented x [facility] 08-08-2025 [facility] Status [facility] 08-08-[facility]25 Mental Status [facility] 08-07-2025 Mental Status [facility] 08-06-2025 Mental Status [facility] 08-06-2025 [facility] 08-05-2025 Cognitive function Voice/Name [facility] Work Phone: 07-30-2023 Cognitive function Voice/Name [facility] Work Phone: 02-16-2022 Cognitive function Voice/Name [facility] Work Phone: 01-31-2022 Cognitive function Voice/Name [facility] Work Phone: Clinical Notes 07-28-2023 to 08-13-2025 Note Date & Type Note Facility 08-13-2025 Hospital Discharg e instructions Patient Education 08/13/2025 16:21:38 How to Care for a Feeding Tube How to Care for a Feeding Tube A feeding tube is a soft, flexible tube through which medicine, water, and liquid food can be given. A person may have a feeding tube if she or he has trouble swallowing or cannot have food or medicine by mouth. Supplies needed to care for the tube site: Clean gloves. Clean washcloth, gauze pads, or soft paper towel. Cotton swabs. Skin barrier ointment or cream, such as petroleum jelly. Soap and water. Pre-cut foam pads or gauze for around the tube. Tube tape. Anchoring device (optional). How to care for the tube site 1.Have all supplies ready and available. 2.Wash your hands well. 3.Put on clean gloves. 4.If there is a foam pad or gauze under the tube stabilizing disc and it is soiled or moist or has been there for more than one day, replace it. 5.Check the skin around the tube site for redness, a rash, swelling, drainage, or extra tissue growth. If you notice any of these, call your health care provider. 6.Use water and soap to moisten gauze pads and cotton swabs. 7.Use the moistened cotton swabs to wipe the area closest to the tube, right near the opening in the abdomen (stoma). 8.Use the moistened gauze pads to wipe the surrounding skin. 9.Rinse with water. 10.Use a washcloth, dry gauze pad, or soft paper towel to dry the skin and stoma site. 11.If the skin is red, use a cotton swab to apply a skin barrier cream or ointment in a circular motion. The cream or ointment will help the wound to heal. Do not apply antibiotic ointments at the tube site. 12.Apply a new pre-cut foam pad or gauze around the tube. If there is no drainage, you can leave off the foam pads or gauze. 13.Secure the pre-cut foam pad or gauze with tape around the edges. 14.Use tape or an anchoring device to fasten the feeding tube to the skin for comfort or as directed. Alternate where you put the tape to avoid damaging the skin. 15.Position the person in a semi-upright position, at about a 30 45 degree angle. 16.Throw away used supplies. 17.Remove your gloves. 18.Wash your hands. Supplies needed to flush a feeding tube: Clean gloves. A clean 60 mL syringe that connects to the feeding tube. Towel. Sterile or purified water. Follow these guidelines: ?Use sterile water if: ?You have a weak immune system and have difficulty fighting off infections (are immunocompromised). ?You are unsure about the amount of chemical contaminants in purified or drinking water. ?Do not use fresh water found in lakes, george, reservoirs, or aquifers without treating or filtering first. ?To purify drinking water by boiling: ?Boil water for at least 1 minute. Keep a lid over the water while it boils. ?Allow the water to cool to room temperature before using. How to flush a feeding tube 1.Have all supplies ready and available. 2.Wash your hands well. 3.Put on clean gloves. 4.Draw up 30 mL of water into the syringe. 5.Before flushing, place the towel under the tube to catch any fluid leaks. 6.Kink the feeding tube while disconnecting it from the feeding-bag tubing or while removing the cap at the end of the tube. Kinking closes the tube and prevents fluid in the tube from spilling out. 7.Insert the tip of the syringe into the end of the feeding tube. 8.Release the kink. 9.Slowly inject the water. If you are unable to inject the water, the tip of the tube may be against the person's stomach, blocking fluid flow. To fix this problem, have the person with the feeding tube lie on his or her left side. Then, try injecting the water again. If there is resistance, do not use a lot of force to overcome it because this could cause the tube to tear. 10.Remove the syringe and replace the cap. 11.Throw away used supplies. 12.Remove your gloves. 13.Wash your hands. Follow these instructions at home: Caring for the tube If there is a foam pad or gauze under the tube stabilizing disc, change it every day and when it is soiled or moist. Do not apply antibiotic ointments at the tube site. Flushing the tube Do not use a syringe that is smaller than 60 mL. To prevent medicine from clogging the tube, flush the tube at all of these times: ?Before the person is given the first medicine. ?Between medicines. ?After the person is given the final medicine before starting a feeding. Do not mix medicines with formula or with other medicines. Thoroughly flush medicines through the tube so they do not mix with formula. Contact a health care provider if: The tube becomes blocked or clogged. You find any of these on the skin around the tube site: ?Redness. ?A rash. ?Swelling. ?Drainage. ?Extra tissue growth. Summary A feeding tube is a soft, flexible tube through which medicine, water, and liquid food can be given. A person may have a feeding tube if she or he has trouble swallowing or cannot have food or medicine by mouth. Follow instructions from your health care provider about daily care and flushing of the tube. Contact your health care provider if the tube becomes blocked or clogged, or if you notice swelling, drainage, or changes in skin around the tube site. This information is not intended to replace advice given to you by your health care provider. Make sure you discuss any questions you have with your health care provider. Document Released: 09/29/2006 Document Revised: 09/11/2018 Document Reviewed: 11/01/2017 [email or web address] Patient Education 2020 [employer] [facility] 08-13-2025 Note Discharge Instructions Thank you for allowing [facility] to assist you with your healthcare needs. The following is important discharge information regarding your hospital visit. Your Care Team [facility] Your Diagnosis Achalasia Acute exacerbation of chronic heart failure Chronic kidney disease (CKD), stage IV (severe) Chronic respiratory failure COPD (chronic obstructive pulmonary disease) Hiatal hernia with GERD Hypoglycemia Hypokalemia Hyponatremia Type 2 diabetes mellitus Vitamin D deficiency What to do next Instructions From Your Doctor For SNF BMP 08/15 and 08/18 for Hyponatremia and hypokalemia Low dose corrective sliding scale insulin. Check blood sugars PRN as blood sugars are very labile Fluid restriction of 1600ml/day- Concern for SIADH Daily weight at 0600, call for weight gain >3lbs in 24h Scheduled Follow-Up Appointments Appointment Type When With Where Contact Information StatusPC OV 11/14/2025 11:00 AM TAYLOR VIVAR APRN-LOBSTER CATCHER [facility] Confirmed The Following Activity and Diet Have Been Ordered for You Transfer of Care Activity - Ordered -- As instructed by therapy, 08/13/25 14:53:00 EDT Transfer of Care Diet - Ordered -- Type of Diet: Full Liquid Diet, Moderately Thick (Honey)-IDDSI-3, Pleasure feeding only, 08/13/25 14:53:00 EDT The Following Equipment Has Been Ordered for You Discharge Home Equipment Discharge Blood Glucose Monitoring - Ordered -- When to Test: *Other (specify in special instructions), Every 6 hours and PRN. Blood sugars are very labile. Discharge Tube Feeding (Tube Feeding on Discharge) - Ordered -- Nepro with Carb Steady, 45ml/hr continuous The Following Treatments Have Been Ordered for You Discharge Labs Transfer of Care Labwork - Ordered -- BMP, Hyponatremia, hypokalemia, Results Notify to: [facility] provider, Obtain BMP 08/15/25 and 08/18/25, 08/13/25 14:53:00 EDT Discharge Radiology No qualifying data available. Other Therapies Discharge Blood Glucose Monitoring - Ordered -- When to Test: *Other (specify in special instructions), Every 6 hours and PRN. Blood sugars are very labile. Transfer of Care OT - Ordered -- Reason for therapy: weakness, 08/13/25 14:53:00 EDT Transfer of Care PT - Ordered -- Reason for therapy: Weakness, 08/13/25 14:53:00 EDT Post Acute Orders Transfer of Care Admission Level of Care - Ordered -- Level of Care SNF, 08/13/25 14:53:31 EDT Transfer of Care Code Status - Ordered -- DNRCC-Arrest Do Not Intubate, Constant Order Transfer of Care Labwork - Ordered -- BMP, Hyponatremia, hypokalemia, Results Notify to: [facility] provider, Obtain BMP 08/15/25 and 08/18/25, 08/13/25 14:53:00 EDT Transfer of Care Orders Electronically Signed By - Ordered -- 08/13/25 14:53:00 EDT, SHUKRI DAVID APRN-DIANA Transfer of Care Oxygen Therapy - Ordered -- Oxygen (CONTINUOUS), Mobile in the Home, Nasal Cannula, 2 liters per minute, 999 month(s), 08/13/25 14:53:00 EDT Transfer of Care Prognosis - Ordered -- Fair, Patient Aware: Yes Transfer of Care Rehab Potential - Ordered -- Rehab potential fair, 08/13/25 14:53:31 EDT Allergies NKA Medications Please ask your primary doctor or pharmacist before taking any other medication not listed, including over the counter drugs, herbal medications, vitamins and or supplements as they may interact with your home medications. What How Much When Why Instructions Last Dose New albuterol-ipratropium (DuoNeb) 3 Milliliter by inhalation Every 2 Hours as needed for Shortness of breath or wheezing New glucagon (glucagon 1 mg/ 0.2 mL subcutaneous solution) See instructions Refills: 1 0.2 mL Subcutaneous AsDirected for hypoglycemia, As needed for for low blood sugar New insulin glargine (Lantus 100 units/ mL10 ml vial solution) 5 unit(s) Subcutaneous Once a day Duration: 30 Days 08/13 8 UNITS 9:21AM New insulin lispro (HumaLOG) (HumaLOG 100 units/ mL injectable solution VIAL) Sliding Scale Subcutaneous Every 6 hours 201-250- 2 units 251-300-4 units 301-350-6 units 350-400-8 units >400, Call provider 11/1 4units @ 1200 New sodium chloride (Hypertonic Sodium Chloride 3% (Inhalation)) 3 Milliliter by inhalation Four (4) times a day CONSTANT New sodium chloride (sodium chloride 1000 mg oral tablet) 1 tab(s) by mouth Two (2) times a day 08/13 9:17AM Unchanged albuterol (Ventolin HFA MDI (90 mcg/ inh) inhalation aerosol) 2 puff(s) by inhalation Every 4 hours as needed for as needed for wheezing COPD with exacerbation Unchanged amiodarone (amiodarone 200 mg oral tablet) 1 tab(s) PEG tube Twice daily with meals 08/13 9:17Am Unchanged apixaban (Eliquis 5 mg oral tablet) 1 tab(s) PEG tube Two (2) times a day 08/13 9:17AM Unchanged ARIPiprazole (Abilify 10 mg oral tablet) 1 tab(s) by mouth Once a day Duration: 90 Days 08/13 9:17AM Unchanged budesonide/ formoterol/ glycopyrrolate (Breztri Aerosphere 160 mcg-9 mcg-4.8 mcg/ inh inhalation aerosol) 2 puff(s) by inhalation Two (2) times a day COPD (chronic obstructive pulmonary disease) Duration: 90 Days not to exceed 4 inhalations/ day Unchanged buPROPion (buPROPion 100 mg oral tablet) 1 tab(s) PEG tube Two (2) times a day 08/13 9:17AM Unchanged cholecalciferol (Vitamin D3 125 mcg (5000 intl units) oral capsule) 1 cap by mouth Once a day Vitamin D deficiency Duration: 90 Days 08/13 9:17AM Unchanged cyanocobalamin (Vitamin B-12 1000 mcg oral tablet) 1 tab(s) by mouth Once a day Duration: 90 Days 08/13 9:17AM Unchanged DME (Blood Glucose Test Machine) See instructions DM (diabetes mellitus) Dispense a One Touch glucometer, use as directed twice daily to test blood sugar. Diagnosis: E11.9 N/A Unchanged DME (Blood Glucose Test Strips) See instructions DM (diabetes mellitus) Dispense One Touch glucose test strips, #200, use 1 strip twice daily as directed to test blood sugar. Diagnosis: E11.9 N/A Unchanged DME (DME MISCellaneous) See instructions Peripheral edema bilateral knee highcompression hose medium 20-30 N/A Unchanged DME (Pen needles 4 mm) See instructions DM (diabetes mellitus) Use 1 pen needle daily to inject basal insulin N/A Unchanged esomeprazole (esomeprazole 40 mg oral delayed release capsule) 1 cap by mouth Once a day Hiatal hernia with GERD Duration: Days 08/13 5:57AM Unchanged ferrous sulfate (ferrous sulfate 325 mg (65 mg elemental iron) oral tablet) 1 tab(s) by mouth Once a day 08/13 12:10 Unchanged ipratropium (Atrovent HFA 17 mcg/ inh inhalation aerosol) 2 puff(s) by inhalation Four (4) times a day Unchanged losartan (losartan 50 mg oral tablet) 1 tab(s) by mouth Once a day HTN (hypertension) Duration: 90 Days N/A Unchanged lovastatin (lovastatin 40 mg oral tablet) 1 tab(s) by mouth Daily at bedtime Duration: 08/12 9:27PM Unchanged metoprolol (metoprolol tartrate 50 mg oral tablet) 1 tab(s) PEG tube Two (2) times a day 08/13 9:23AM Unchanged montelukast (montelukast 10 mg oral tablet) 1 tab(s) by mouth Once a day Duration: 08/13 9:17AM Unchanged traZODone (traZODone 150 mg oral tablet) 1 tab(s) by mouth Daily at bedtime Duration: 90 Days N/A What How Much When Comments Stop Taking glimepiride (glimepiride 2 mg oral tablet) 1 tab(s) by mouth Two (2) times a day Duration: 90 Days Stop Taking oxyCODONE (oxyCODONE 20 mg/ mL oral concentrate) 0.25 Milliliter by mouth Every 12 hours as needed for as needed for pain Stop Taking pioglitazone (pioglitazone 30 mg oral tablet) 1 tab(s) by mouth Every day Duration: 90 Days Please take this list to your next doctor s visit. Bring all medications you take, including over the counter medications, herbals and other supplements with you to your doctor s visit. Patients and families are reminded to discard old lists and to update any records with all medication providers or retail pharmacies. Education Materials How to Care for a Feeding Tube A feeding tube is a soft, flexible tube through which medicine, water, and liquid food can be given. A person may have a feeding tube if she or he has trouble swallowing or cannot have food or medicine by mouth. Supplies needed to care for the tube site: Clean gloves. Clean washcloth, gauze pads, or soft paper towel. Cotton swabs. Skin barrier ointment or cream, such as petroleum jelly. Soap and water. Pre-cut foam pads or gauze for around the tube. Tube tape. Anchoring device (optional). How to care for the tube site 1. Have all supplies ready and available. 2. Wash your hands well. 3. Put on clean gloves. 4. If there is a foam pad or gauze under the tube stabilizing disc and it is soiled or moist or has been there for more than one day, replace it. 5. Check the skin around the tube site for redness, a rash, swelling, drainage, or extra tissue growth. If you notice any of these, call your health care provider. 6. Use water and soap to moisten gauze pads and cotton swabs. 7. Use the moistened cotton swabs to wipe the area closest to the tube, right near the opening in the abdomen (stoma). 8. Use the moistened gauze pads to wipe the surrounding skin. 9. Rinse with water. 10. Use a washcloth, dry gauze pad, or soft paper towel to dry the skin and stoma site. 11. If the skin is red, use a cotton swab to apply a skin barrier cream or ointment in a circular motion. The cream or ointment will help the wound to heal. Do not apply antibiotic ointments at the tube site. 12. Apply a new pre-cut foam pad or gauze around the tube. If there is no drainage, you can leave off the foam pads or gauze. 13. Secure the pre-cut foam pad or gauze with tape around the edges. 14. Use tape or an anchoring device to fasten the feeding tube to the skin for comfort or as directed. Alternate where you put the tape to avoid damaging the skin. 15. Position the person in a semi-upright position, at about a 30 45 degree angle. 16. Throw away used supplies. 17. Remove your gloves. 18. Wash your hands. Supplies needed to flush a feeding tube: Clean gloves. A clean 60 mL syringe that connects to the feeding tube. Towel. Sterile or purified water. Follow these guidelines: ? Use sterile water if: ? You have a weak immune system and have difficulty fighting off infections (are immunocompromised). ? You are unsure about the amount of chemical contaminants in purified or drinking water. ? Do not use fresh water found in lakes, george, reservoirs, or aquifers without treating or filtering first. ? To purify drinking water by boiling: ? Boil water for at least 1 minute. Keep a lid over the water while it boils. ? Allow the water to cool to room temperature before using. How to flush a feeding tube 1. Have all supplies ready and available. 2. Wash your hands well. 3. Put on clean gloves. 4. Draw up 30 mL of water into the syringe. 5. Before flushing, place the towel under the tube to catch any fluid leaks. 6. Kink the feeding tube while disconnecting it from the feeding-bag tubing or while removing the cap at the end of the tube. Kinking closes the tube and prevents fluid in the tube from spilling out. 7. Insert the tip of the syringe into the end of the feeding tube. 8. Release the kink. 9. Slowly inject the water. If you are unable to inject the water, the tip of the tube may be against the person's stomach, blocking fluid flow. To fix this problem, have the person with the feeding tube lie on his or her left side. Then, try injecting the water again. If there is resistance, do not use a lot of force to overcome it because this could cause the tube to tear. 10. Remove the syringe and replace the cap. 11. Throw away used supplies. 12. Remove your gloves. 13. Wash your hands. Follow these instructions at home: Caring for the tube If there is a foam pad or gauze under the tube stabilizing disc, change it every day and when it is soiled or moist. Do not apply antibiotic ointments at the tube site. Flushing the tube Do not use a syringe that is smaller than 60 mL. To prevent medicine from clogging the tube, flush the tube at all of these times: ? Before the person is given the first medicine. ? Between medicines. ? After the person is given the final medicine before starting a feeding. Do not mix medicines with formula or with other medicines. Thoroughly flush medicines through the tube so they do not mix with formula. Contact a health care provider if: The tube becomes blocked or clogged. You find any of these on the skin around the tube site: ? Redness. ? A rash. ? Swelling. ? Drainage. ? Extra tissue growth. Summary A feeding tube is a soft, flexible tube through which medicine, water, and liquid food can be given. A person may have a feeding tube if she or he has trouble swallowing or cannot have food or medicine by mouth. Follow instructions from your health care provider about daily care and flushing of the tube. Contact your health care provider if the tube becomes blocked or clogged, or if you notice swelling, drainage, or changes in skin around the tube site. This information is not intended to replace advice given to you by your health care provider. Make sure you discuss any questions you have with your health care provider. Document Released: 09/29/2006 Document Revised: 09/11/2018 Document Reviewed: 11/01/2017 [email or web address] Patient Education 2020 [employer]. Additional Information VACCINATE! IT SAVES LIVES! Members of the community who have not yet received the COVID-19 vaccine and would like to receive it can visit one of [facility] vaccine clinics. There are many vaccine clinic locations within the [facility]. For locations and available times, please visit [email or web address] gao.[email or web address] It is important to note that some COVID mobile vaccine clinics are held outdoors and may be canceled in rainy or stormy conditions. To learn more about pediatric vaccinations (ages 5-11), we invite you to visit the [facility] webpage. [email or web address] [email or web address] To learn more about the COVID-19 vaccine, we invite you to visit the CDC website for a list of frequently asked questions.https://www.cdc.gov/co ronavirus/2019-ncov/vaccines/faq .html [facility] Patient [facility] Access Instructions: Stay connected with your healthcare team and access your personal medical information anytime with the [facility] Patient Portal. Please follow the directions below to create your [facility] account: 1.Access the email account you provided upon registration to the hospital/physician office.2.Look for an invitation email from [facility].3.Open the email and access the invitation link: Accept Invitation to [facility].4.Fill in the required magaña to create your account. To access your account, visit [email or web address] or scan the [employer] code above. Click the blue button labeled "Access Patient Portal" and then log in with the username and password that you created in the steps above. You will be able to view your test results, lab results, a summary of your visits, upcoming appointments and more. There is also a convenient messaging option where you can send secure messages to your provider. In addition, you will have the ability to download any documents or summaries to your computer and/or send the information securely to a physician. Remember that your healthcare information is confidential, so carefully consider who you will allow to register on the [facility] [facility] Patient Portal for access to your information. You can also access the [place] [facility] Patient Portal on the [place] [facility] liv. Simply click on "Patient Portal" and then log into your account. If you would like to receive a full copy of your medical records, please contact the [facility] Medical Records Department by calling [phone], Friday through Friday between 8 a.m. and 4:30 p.m. HOW TO SAFELY DISPOSE OF PRESCRIPTION MEDICATIONS Please use one of the following methods to safely dispose of your unused medications. 1.Use a drug disposal kit: the drug disposal pouch allows you to safely discard your old and unused drugs. Ask your nurse to give you one when you are discharged.2.Visit a local take-back location: Many local pharmacies and police departments have programs that collect old and unwanted prescription drugs. Call your local pharmacy or go to http://bit.SportsBUZZ/7L5Ih3v to find one close to you.3.Make use of household items: Use cat litter or old coffee grounds to dispose medications if other options are not available. Mix your drugs with these household products, seal them in an airtight container and throw it into the garbage. Call [facility]: [phone] to be sure your drugs can be disposed of in this way. Some medicines may require a different approach.4.Never flush your medications down the toilet. IF YOU HAVE BEEN PRESCRIBED AN OPIOID FOR PAIN If you have been prescribed an opioid (such as hydrocodone, oxycodone or morphine), it is critical to understand the possible side effects and risks of opioid pain medications. Even when taken as directed, opioids can have several side effects including: Tolerance, meaning you might need to take more of a medication for the same pain relief. Nausea, vomiting and/or constipation. Sleepiness, dizziness, dry mouth, confusion, depression or itching. Physical dependence, meaning you have withdrawal symptoms when a medication is stopped, can develop within a few days. KNOW YOUR RESPONSIBILITIES It is important to know exactly how much and how often to take the opioid pain medications you are prescribed. Never take opioids in higher amounts or more often than prescribed. Do not combine opioids with alcohol or other drugs that cause drowsiness, such as benzodiazepines, also known as benzos, including diazepam and alprazolam, muscle relaxants or sleep aids. Never sell or share prescription opioids. This is illegal. Store opioids in a secure place and out of reach of others (including children, family, friends and visitors). The last page of this document has been signed and retained as a CHART COPY. Signatures Patient Education Materials How to Care for a Feeding Tube Medication Leaflets My discharge plan and instructions have been reviewed and explained to me and I,WING LIN understand my current condition and have read and understand these discharge instructions. I have received a written copy of the plan/instructions. If I have questions, I am aware that I should contact my doctor. Patient/Clinical Nursing Assistant Signature: Date/Time: Relationship to Patient: Witness Name/Signature: Date/Time: [facility] 08-12-2025 Note Date of Service 08/12/2025 Chief Complaint hyponatremia, hypokalemia Subjective Patient seen and evaluated this morning while resting in bed. She is is sleeping but awakens to name. She answers a few questions but returns to sleep again. Nursing concerned that she may be more lethargic today. ABGs done but were unremarkable. Sodium is 130 today, 131/132 corrected for hyperglycemia. Decreased free water to 180 ml q6 hours. Check urine sodium, urine osmolality and serum osmolality. Start sodium chloride 1000 mg BID via PEG. Pharmacy checked and stated that the sodium chloride can be dissolved in 120 cc distilled water and administered via PEG tube. Patient had mild hypokalemia today and this was replaced IV. Renal function is about the same as yesterday, 2.12 but BUN increased to 66. Lantus was changed to qam yesterday due to an episode of hypoglycemia in the morning. Her blood sugars were better today. Patient did get precert today for [facility] but, due to electrolyte abnormalities, held off on discharge for today. Precert is good until 08/18. Patient denies any complaints. All questions answered. Objective Vitals and Measurements T: 36.4 C (Oral) TMIN: 36.4 C (Oral) TMAX: 36.9 C (Oral) HR: 73 RR: 16 BP: 135/78 SpO2: 97% WT: 87.8 kg Intake and Output Last 24 hours Intake Free Water: 1300.00 Enteral Tube Flush: 300.00 Medication 310.00 Output Urine Voided 250.00 Stool Count 1.00 Urine Count 3.00 Total Summary Total Intake 1910.00 Total Output 250.00 Fluid Balance 1660.00 Physical Exam General: No acute distress. Patient is alert, chronically ill-appearing. Skin: No rash. Skin is warm, dry and intact. HEENT: Head is normocephalic, atraumatic. Pupils are equal, round and reactive. Neck: Supple. No lymphadenopathy, thyromegaly. Lungs: Bilaterally clear but diminished without crepitation or wheeze. Unlabored. Heart: Heart is regular rhythm, S1, S2. No murmurs, gallops or rubs. Abdomen: Abdomen is soft, nontender. Bowels sounds present in all quadrants. Extremities: No clubbing, cyanosis, or edema. Peripheral pulses palpable. No calf tenderness. Neurological: Patient is awake and alert to person, place and time. Drowsy but awakens to name. Following simple commands, moving all extremities. Weight Current Weight Dosing Weight: 82.1 kg (08/09/25) Current Weight: 87.8 kg (08/12/25) Current Weight: 84.3 kg (08/11/25) Medications Medications (30) Active Scheduled: (19) albuterol - ipratropium 2.5 mg-0.5 mg/3 mL Inhal Kendra UD 3 mL, Inhalation, QIDRT amiodarone 200 mg tablet 200 mg 1 tab(s), PEG, BIDM apixaban 5 mg tablet 5 mg 1 tab(s), PEG, BID ARIPiprazole 5 mg tablet 10 mg 2 tab(s), Oral, qDay atorvastatin 10 mg tablet 10 mg 1 tab(s), PEG, qDay budesonide 0.5 mg/2 mL Susp UD 0.5 mg 2 mL, Inhalation, BIDRT bupropion 100 mg Tablet 100 mg 1 tab(s), PEG, BID cholecalciferol 25 mcg tablet (Vit D3 1000 units) 125 mcg 5 tab(s), PEG, qDay cyanocobalamin 500 mcg Tablet 1,000 mcg 2 tab(s), PEG, qDay esomeprazole [address] capsule 40 mg 2 cap(s), PEG, qDay ferrous sulfate 325 mg Tablet 325 mg 1 tab(s), PEG, qDay insulin glargine 100 units/ml solution 8 unit(s) 0.08 mL, Subcutaneous, qDay insulin lispro 100 units/mL Soln COA (3 mL) Give 0-10 units/dose, Subcutaneous, achs iron sucrose 200 mg 10 mL, IV Piggyback, qDay metoprolol tartrate 50 mg tablet 50 mg 1 tab(s), PEG, BID montelukast 10 mg Tablet 10 mg 1 tab(s), Oral, qDay sodium chloride 1 gm Tablet 1 gram(s) 1 tab(s), Oral, BID sodium chloride 3% Inhalation Soln 4 mL 90 mg 3 mL, Inhalation, QIDRT traZODONE 50 mg Tablet 150 mg 3 tab(s), Oral, qHS Continuous: (0) PRN: (11) acetaminophen 325 mg Tablet 650 mg 2 tab(s), Oral, q4h acetaminophen 325 mg Tablet 650 mg 2 tab(s), Oral, q4h albuterol - ipratropium 2.5 mg-0.5 mg/3 mL Inhal Kendra UD 3 mL, Inhalation, q2hRT benzonatate 100 mg Capsule 100 mg 1 cap(s), Oral, TID calcium carbonate 500 mg Chewable 500 mg 1 tab(s), Chewed, TID dextrose 50% Solution Disp syringe 50 mL 25 gram(s) 50 mL, IV Push, AsDirected emollients (Desitin) 1 liv, Topical, AsDirected guaifenesin 100 mg/5 mL Liquid 120 mL 200 mg 10 mL, Oral, q4h melatonin 3 mg tablet 6 mg 2 tab(s), Oral, qHS ondansetron 2 mg/ 1 mL 2 mL INJ 4 mg 2 mL, IV Push, q4h oxycodone 5 mg tablet (immediate release) 5 mg 1 tab(s), PEG, q12hr Lab Results 08/12 05:19 WBC: 7.1 Hgb: 7.3 L Hct: 21.6 L Platelet: 151 Neutrophil %: 81.2 H Glucose Level: 168 H Sodium Level: 130 L Potassium Level: 3.3 L BUN: 66 H Creatinine Lvl (s): 2.12 H 08/11 05:16 WBC: 6.9 Hgb: 7.6 L Hct: 22.2 L Platelet: 147 L Neutrophil %: 82.3 H Glucose Level: 198 H Sodium Level: 132 L Potassium Level: 3.7 BUN: 61 H Creatinine Lvl (s): 2.11 H Imaging Results and Diagnostics XR Chest 1 View Result Date: August 11, 2025 Verified By: JERRY MILLER, JOHNATHAN Reyes CLINICAL STATEMENT: IMPRESSION: Grossly stable central vascular congestion and likely pulmonary edema. Small bilateral pleural effusions. I have personally reviewed the images of this examination, and agree with the resident's findings and interpretation. EKG No qualifying data available. Assessment/Plan 1. Hyponatremia New onset, 130 on labs today (131/132 adjusted for hyperglycemia). Decreased free water to 180 cc q6 hours. Check urine sodium, urine osmolality and serum osmolality. Urine sodium 38. Start sodium chloride 1000 mg BID via PEG. Per pharmacy, may dissolve in 120 cc distilled water and administer via PEG. Repeat BMP in the am. 2. Hypokalemia New onset, potassium 3.3. Administered potassium chloride 40 meq IV x 1. Repeat BMP in the am. 3. Acute exacerbation of chronic heart failure LVEF 70%, stage 1 diastolic dysfunction. This has improved. Will discontinue Lasix given worsening renal function. Monitor closely for signs of overload. Repeat chest x-ray in the morning - stable pulmonary edema. 4. COPD (chronic obstructive pulmonary disease) On baseline dose of 4L oxygen. Not in acute exacerbation. Continue inhaled bronchodilators. Patient has a loose cough with difficulty clearing sputum. Add inhaled hypertonic saline 4 times daily. 5. Chronic kidney disease (CKD), stage IV (severe) Patient follows with nephrology. 12/2024 creatinine was 1.8. Creatinine today is 2.12 with eGFR of 23. Lasix was discontinued due to worsening renal function. Repeat BMP in the am. 6. Chronic respiratory failure Chronic. Wears 4L of oxygen at home at all times. 7. Type 2 diabetes mellitus Chronic. ADA diet. Blood glucose goal of 180 or less and avoid hypoglycemia. 8. Hypoglycemia Patient has been having multiple hypoglycemic episodes. Pioglitazone and Glimepiride discontinued. Patient was receiving Lantus 8 units at bedtime but held Friday night due to blood sugar being 53. Blood sugar this morning 313. Will change Lantus to 8 units qam. Corrective sliding scale insulin. Hold off on restarting oral agents at this time. 9. Achalasia Patient may have full liquids that are honey thickened. Nepro at 45 mL/h. 200 mL of free water every 6 hours. anemia - likely of chronic disease. Hemoglobin 7.3 this am from 7.6 yesterday. Iron 48. Start Venofer 200 mg IV x 2 doses. Hypomagnesemia stable at 2.4 today. Atrial fibrillation rate controlled. Continue home medications. Weakness PT and OT consulted with recommendation for SNF. Patient has been accepted at [facility] and pre-CERT has been obtained. Precert good until 08/18. DVT prophylaxis: Apixaban. DNRCCA - do not intubate. Labs, diagnostic test and progress notes reviewed as noted in HPI. Plan of care discussed with patient. All questions answered. Patient verbalizes understanding and is agreeable with plan of care. This case was discussed with collaborating physician, Dr. Brenda Steiner. Anticipated Date of Discharge next 24 - 48 hours Time Spent 38 minutes spent reviewing past diagnostic tests, reviewing lab results, vital sign trends, medical history, reviewing medications and ordering home medications, examining patient, discussed plan of care with care team, collaborating with physician, and documenting in chart. Digitally Signed by CARLYN MURCIA on 08/12/2025 05:24 PM Digitally Signed by CARLYN MURCIA on 08/12/2025 05:28 PM [facility] 08-11-2025 Note Date of Service 08/11/2025 Chief Complaint multiple Subjective Patient seen and evaluated this morning while resting in her chair. She is very sleepy but awakens easily to her name. She states that she is feeling well this morning. She does not have any complaints but is not overly talkative. Patient aware that we are awaiting a precert for [facility]. She should be ready for discharge there today if we get a precert. Patient is agreeable to this plan. She denies any fever, chills, cough, shortness of breath, chest pain, abdominal pain, nausea or dysuria. All questions answered. Objective Vitals and Measurements T: 37.1 C (Oral) TMIN: 36.5 C (Oral) TMAX: 37.1 C (Oral) HR: 80 RR: 20 BP: 127/59 SpO2: 95% WT: 84.3 kg Intake and Output Last 24 hours Intake Free Water: 1000.00 Enteral Tube Flush: 100.00 Medication 172.00 Tube Feeding Intake 450.00 Oral Intake 120.00 Output Stool Count 1.00 Urine Count 5.00 Total Summary Total Intake 1842.00 Total Output 0.00 Fluid Balance 1842.00 Physical Exam General: No acute distress. Patient is alert, chronically ill-appearing. Skin: No rash. Skin is warm, dry and intact. HEENT: Head is normocephalic, atraumatic. Pupils are equal, round and reactive. Neck: Supple. No lymphadenopathy, thyromegaly. Lungs: Bilaterally clear but diminished without crepitation or wheeze. Unlabored. Heart: Heart is regular rhythm, S1, S2. No murmurs, gallops or rubs. Abdomen: Abdomen is soft, nontender. Bowels sounds present in all quadrants. PEG tube in place to LUQ. Extremities: No clubbing, cyanosis, or edema. Peripheral pulses palpable. No calf tenderness. Neurological: Patient is awake and alert to person, place and time. Following simple commands, moving all extremities. Weight Current Weight Dosing Weight: 82.1 kg (08/09/25) Current Weight: 84.3 kg (08/11/25) Current Weight: 82.5 kg (08/10/25) Medications Medications (28) Active Scheduled: (17) albuterol - ipratropium 2.5 mg-0.5 mg/3 mL Inhal Kendra UD 3 mL, Inhalation, QIDRT amiodarone 200 mg tablet 200 mg 1 tab(s), PEG, BIDM apixaban 5 mg tablet 5 mg 1 tab(s), PEG, BID ARIPiprazole 5 mg tablet 10 mg 2 tab(s), Oral, qDay atorvastatin 10 mg tablet 10 mg 1 tab(s), PEG, qDay budesonide 0.5 mg/2 mL Susp UD 0.5 mg 2 mL, Inhalation, BIDRT bupropion 100 mg Tablet 100 mg 1 tab(s), PEG, BID cholecalciferol 25 mcg tablet (Vit D3 1000 units) 125 mcg 5 tab(s), PEG, qDay cyanocobalamin 500 mcg Tablet 1,000 mcg 2 tab(s), PEG, qDay esomeprazole [address] capsule 40 mg 2 cap(s), PEG, qDay ferrous sulfate 325 mg Tablet 325 mg 1 tab(s), PEG, qDay insulin glargine 100 units/ml solution 8 unit(s) 0.08 mL, Subcutaneous, qHS insulin lispro 100 units/mL Soln COA (3 mL) Give 0-10 units/dose, Subcutaneous, achs metoprolol tartrate 50 mg tablet 50 mg 1 tab(s), PEG, BID montelukast 10 mg Tablet 10 mg 1 tab(s), Oral, qDay sodium chloride 3% Inhalation Soln 4 mL 90 mg 3 mL, Inhalation, QIDRT traZODONE 50 mg Tablet 150 mg 3 tab(s), Oral, qHS Continuous: (0) PRN: (11) acetaminophen 325 mg Tablet 650 mg 2 tab(s), Oral, q4h acetaminophen 325 mg Tablet 650 mg 2 tab(s), Oral, q4h albuterol - ipratropium 2.5 mg-0.5 mg/3 mL Inhal Kendra UD 3 mL, Inhalation, q2hRT benzonatate 100 mg Capsule 100 mg 1 cap(s), Oral, TID calcium carbonate 500 mg Chewable 500 mg 1 tab(s), Chewed, TID dextrose 50% Solution Disp syringe 50 mL 25 gram(s) 50 mL, IV Push, AsDirected emollients (Desitin) 1 liv, Topical, AsDirected guaifenesin 100 mg/5 mL Liquid 120 mL 200 mg 10 mL, Oral, q4h melatonin 3 mg tablet 6 mg 2 tab(s), Oral, qHS ondansetron 2 mg/ 1 mL 2 mL INJ 4 mg 2 mL, IV Push, q4h oxycodone 5 mg tablet (immediate release) 5 mg 1 tab(s), PEG, q12hr Lab Results 08/11 05:16 WBC: 6.9 Hgb: 7.6 L Hct: 22.2 L Platelet: 147 L Neutrophil %: 82.3 H Glucose Level: 198 H Sodium Level: 132 L Potassium Level: 3.7 BUN: 61 H Creatinine Lvl (s): 2.11 H 08/10 05:32 WBC: 6.1 Hgb: 7.4 L Hct: 22.0 L Platelet: 134 L Neutrophil %: 75.6 H Glucose Level: 146 H Sodium Level: 134 L Potassium Level: 4.8 BUN: 48 H Creatinine Lvl (s): 2.08 H Imaging Results and Diagnostics XR Chest 1 View Result Date: August 11, 2025 Verified By: JERRY MILLER, JOHNATHAN Reyes CLINICAL STATEMENT: IMPRESSION: Grossly stable central vascular congestion and likely pulmonary edema. Small bilateral pleural effusions. I have personally reviewed the images of this examination, and agree with the resident's findings and interpretation. EKG No qualifying data available. Assessment/Plan 1. Acute exacerbation of chronic heart failure LVEF 70%, stage 1 diastolic dysfunction. This has improved. Will discontinue Lasix given worsening renal function. Monitor closely for signs of overload. Repeat chest x-ray in the morning - stable pulmonary edema. 2. COPD (chronic obstructive pulmonary disease) On baseline dose of 4L oxygen. Not in acute exacerbation. Continue inhaled bronchodilators. Patient has a loose cough with difficulty clearing sputum. Add inhaled hypertonic saline 4 times daily. 3. Chronic kidney disease (CKD), stage IV (severe) Patient follows with nephrology. 12/2024 creatinine was 1.8. Creatinine today is 2.11 with eGFR of 23. Lasix was discontinued due to worsening renal function. Repeat BMP in the am. 4. Chronic respiratory failure Chronic. Wears 4L of oxygen at home at all times. 5. Type 2 diabetes mellitus Chronic. ADA diet. Blood glucose goal of 180 or less and avoid hypoglycemia. 6. Hypoglycemia Patient has been having multiple hypoglycemic episodes. Pioglitazone and Glimepiride discontinued. Patient was receiving Lantus 8 units at bedtime but held last night due to blood sugar being 53. Blood sugar this morning 313. Will change Lantus to 8 units qam. Corrective sliding scale insulin. Hold off on restarting oral agents at this time. 7. Hyperkalemia Resolved. Potassium 3.7 this am. 8. Achalasia Patient may have full liquids that are honey thickened. Nepro at 45 mL/h. 200 mL of free water every 6 hours. Hypomagnesemia magnesium sulfate 6 g IV x 1 yesterday. Magnesium 2.5 this am. Mild hyponatremia change free water to every 6 hours per dietitian recommendations. Atrial fibrillation rate controlled. Continue home medications. Weakness PT and OT consulted with recommendation for SNF. Patient has been accepted at [facility] and pre-CERT has been started. DVT prophylaxis: Apixaban. Code Status: DNRCC/DNI. Labs, diagnostic test and progress notes reviewed as noted in HPI. Plan of care discussed with patient. All questions answered. Patient verbalizes understanding and is agreeable with plan of care. This case was discussed with collaborating physician, Dr. Brenda Steiner. Anticipated Date of Discharge next 24 hours Time Spent 37 minutes spent reviewing past diagnostic tests, reviewing lab results, vital sign trends, medical history, reviewing medications and ordering home medications, examining patient, discussed plan of care with care team, collaborating with physician, and documenting in chart. Digitally Signed by CARLYN MURCIA on 08/11/2025 12:07 PM [facility] 08-11-2025 Note Exam Date Time Procedure Performing Provider Status 08/11/25 5:52 AM XR Chest 1 View JOHNATHAN EDWARDS MD; Auth (Verified) [id number] ORIGINAL EXAMINATION: ONE XRAY VIEW OF THE CHEST 08/11/2025 5:52 am COMPARISON: Chest x-ray 08/09/2025 HISTORY: ORDERING SYSTEM PROVIDED HISTORY: Reason for Exam: CHF FINDINGS: Cardiomediastinal contour stable. Similar appearing bilateral perihilar fullness and vascular prominence. Similar appearing diffuse interstitial haziness. No pneumothorax. Suspect small bilateral pleural effusions. No acute osseous abnormality. IMPRESSION: Grossly stable central vascular congestion and likely pulmonary edema. Small bilateral pleural effusions. I have personally reviewed the images of this examination, and agree with the resident's findings and interpretation. Interpreted by: Johnathan Edwards MD Preliminary Report By: Paddy May Electronically signed By Johnathan Edwards MD Dictated Date: 08/11/2025 5:58:38 AM Prelim Date: 08/11/2025 5:59:30 AM Sign Date: 08/11/2025 6:01:57 AM Ordering Provider: SHUKRI DAVID RP [facility]10-29-2025 Note Date of Service 08/10/2025 Chief Complaint Heart failure exacerbation Subjective 80-year-old female with a significant past medical history of COPD with chronic hypoxic respiratoryfailure requiring home O2 at 4 L nasal cannula at baseline, heart failure with preserved ejection fraction, chronic kidney disease stage IIIb, type 2 diabetes mellitus, stroke, hypertension,atrial fibrillilation anticoagulated on apixban, hyperlipidemia, anxiety, depression, chronic anemia, former smoker. Patient presented to [facility] ED 2025 with increasing dyspnea, fall. She was admitted to the hospital for acute on chronic hypoxic and hypercapnic respiratory failure secondary to COPD and CHF exacerbations with aspiration pneumonia. CTA of the chest showed bilateral pleural effusions and opacities concerning for atelectasis versus pneumonia. Initially she had improvement with BiPAP, however wasnoted to have increased respiratory distress requiring intubation on the evening of admission. She had significant esophageal secretions during intubation. She was treated with IV antibiotics and bron chodilators with some improvement. She was able to be extubated to nasal cannula on 07/27/2025. Shetransition back to her home O2 at 4 L nasal cannula on 07/31/2025. Subsequently, postextubation shewas noted to have dysphagia secondary to achalasia. Patient was noted to have significant esophageal secretions with intubation. EGD on 1013 was performed and showed food still in esophagus with removal, esophageal stenosis with dilatation, abnormal esophageal motility consistent with achalasia andgastric stenosis found at the pylorus. Unfortunately, despite dilatation with EGD, the patient was still unable to manage secretions and maintain adequate oral intake safely so PEG tube was placed on07/29/2025. She was transition to internal feedings and tolerating without issues. Her hospitalization was further complicated with new onset atrial fibrillation with RVR which required amiodarone drip and anticoagulation. Echocardiogram showed stage I diastolic dysfunction with LVEF of 70%. No sign ificant valvular abnormalities. Patient was transition to oral amiodarone, metoprolol, and apixabanand heart rate stabilized. During hospitalization patient experienced BENITO superimposed on chronic kidney disease. Baseline creatinine around 1.4-1.6. Her creatinine peaked at 2.5 however improved back to baseline by 07/31/2025. Patient was evaluated by PT OT and speech therapy. She lives home alonewith daughter close by. She was noted to have significant deconditioning due to prolonged hospitalization. Therapy recommended SNF placement on discharge. Patient was medically optimized and discharged to [facility] on 08/05/2025. Patient was having coarse crackles throughout. Chest x-ray showed vascular congestion. She was also hyperkalemic. She received IV Lasix and Lokelma. She was also having episodes of hypoglycemia. Lantus and oral agents were discontinued. Patient required 2-1/2 A of dextrose. She was still hypoglycemic. Given persistent hyperkalemia, hypoglycemia, fluid overload, BENITO, she was discharged from TCU and admitted to inpatient. She was continued on Lasix 40 mg IV twice daily. She diuresed and had improvement in lung sounds. Patient statesthat she feels much better today. Still having some difficulty clearing secretions when she coughs.She has remained afebrile and hemodynamically stable on her baseline dose of oxygen at 4 L. Blood sugars have improved and are trending up. Hemoglobin down to 7.4. Iron studies checked. Iron only slightly low at 48, saturation 25%, ferritin 338. Renal function still impaired with creatinine of 2.08and eGFR of 24. Magnesium low at 1.3. Objective Vitals and Measurements T: 36.8 C (Oral) TMIN: 36.5 C (Oral) TMAX: 37 C (Oral) HR: 76 (Apical) RR: 18 BP: 104/66 SpO2: 95% WT: 82.5 kg Intake and Output Last 24 hours Intake Free Water: 800.00 Medication 154.00 Tube Feeding Intake 1233.00 Output Stool Count 2.00 Urine Count 1.00 Total Summary Total Intake 2187.00 Total Output 0.00 Fluid Balance 2187.00 Physical Exam GEN: Appears chronically ill CHEST: Normal S1 and S2. Diminished ABD: Positive bowel sounds x 4 quads. Soft, nondistended, nontender. EXT: No significant deformity or joint abnormality. Trace edema BLE. Peripheral pulses intact. NEURO: Sensation grossly intact SKIN: Skin color normal PSYCH: The mental examination revealed the patient was alert and oriented to self Weight Current Weight Dosing Weight: 82.1 kg (08/09/25) Current Weight: 82.5 kg (08/10/25) Medications Medications (28) Active Scheduled: (17) albuterol - ipratropium 2.5 mg-0.5 mg/3 mL Inhal Kendra UD 3 mL, Inhalation, QIDRT amiodarone 200 mg tablet 200 mg 1 tab(s), PEG, BIDM apixaban 5 mg tablet 5 mg 1 tab(s), PEG, BID ARIPiprazole 5 mg tablet 10 mg 2 tab(s), Oral, qDay atorvastatin 10 mg tablet 10 mg 1 tab(s), PEG, qDay budesonide 0.5 mg/2 mL Susp UD 0.5 mg 2 mL, Inhalation, BIDRT bupropion 100 mg Tablet 100 mg 1 tab(s), PEG, BID cholecalciferol 25 mcg tablet (Vit D3 1000 units) 125 mcg 5 tab(s), PEG, qDay cyanocobalamin 500 mcg Tablet 1,000 mcg 2 tab(s), PEG, qDay esomeprazole [address] capsule 40 mg 2 cap(s), PEG, qDay ferrous sulfate 325 mg Tablet 325 mg 1 tab(s), PEG, qDay insulin glargine 100 units/ml solution 8 unit(s) 0.08 mL, Subcutaneous, qHS insulin lispro 100 units/mL Soln COA (3 mL) Give 0-10 units/dose, Subcutaneous, achs metoprolol tartrate 50 mg tablet 50 mg 1 tab(s), PEG, BID montelukast 10 mg Tablet 10 mg 1 tab(s), Oral, qDay sodium chloride 3% Inhalation Soln 4 mL 90 mg 3 mL, Inhalation, QIDRT traZODONE 50 mg Tablet 150 mg 3 tab(s), Oral, qHS Continuous: (0) PRN: (11) acetaminophen 325 mg Tablet 650 mg 2 tab(s), Oral, q4h acetaminophen 325 mg Tablet 650 mg 2 tab(s), Oral, q4h albuterol - ipratropium 2.5 mg-0.5 mg/3 mL Inhal Kendra UD 3 mL, Inhalation, q2hRT benzonatate 100 mg Capsule 100 mg 1 cap(s), Oral, TID calcium carbonate 500 mg Chewable 500 mg 1 tab(s), Chewed, TID dextrose 50% Solution Disp syringe 50 mL 25 gram(s) 50 mL, IV Push, AsDirected emollients (Desitin) 1 liv, Topical, AsDirected guaifenesin 100 mg/5 mL Liquid 120 mL 200 mg 10 mL, Oral, q4h melatonin 3 mg tablet 6 mg 2 tab(s), Oral, qHS ondansetron 2 mg/ 1 mL 2 mL INJ 4 mg 2 mL, IV Push, q4h oxycodone 5 mg tablet (immediate release) 5 mg 1 tab(s), PEG, q12hr Lab Results 08/10 05:32 WBC: 6.1 Hgb: 7.4 L Hct: 22.0 L Platelet: 134 L Neutrophil %: 75.6 H Glucose Level: 146 H Sodium Level: 134 L Potassium Level: 4.8 BUN: 48 H Creatinine Lvl (s): 2.08 H 08/09 18:49 Potassium Level: 4.9 08/09 12:17 Potassium Level: 5.9 H Assessment/Plan 1. Acute exacerbation of chronic heart failure 2. COPD (chronic obstructive pulmonary disease) 3. Chronic kidney disease (CKD), stage IV (severe) 4. Chronic respiratory failure 5. Type 2 diabetes mellitus 6. Hypoglycemia 7. Hyperkalemia 8. Achalasia Acute exacerbation of chronic heart failure- LVEF 70%, stage 1 diastolic dysfunction. This has improved. Will discontinue Lasix given worsening renal function. Monitor closely for signs of overload. Repeat chest x-ray in the morning. COPD with chronic respiratory failure- On baseline dose of 4L oxygen. Not in acute exacerbation. Continue inhaled bronchodilators. Patient has a loose cough with difficulty clearing sputum. Add inhaled hypertonic saline 4 times daily. CKD stage 3-patient follows with nephrology. 12/2024 creatinine was 1.8. Creatinine today is 2.08 with eGFR of 24. Lasix will be discontinued. Type 2 diabetes mellitus-patient has been having multiple hypoglycemic episodes. Pioglitazone and Glimepiride discontinued. Patient was receiving Lantus 10 units at at bedtime. Blood sugars are trending up. Corrective sliding scale insulin. Increase Lantus to 8 units nightly. Hold off on restartingoral agents at this time. Hyperkalemia-Lokelma 10 g 3 times daily x 24 hours. Potassium level improved at 4.8. Stop losartan.Discussed with dietitian for recommendations. Change tube feeding to Nepro. Achalasia-patient may have full liquids that are honey thickened. Nepro at 45 mL/h. 200 mL of free water every 4 hours. Hypomagnesemia magnesium sulfate 6 g IV x 1 Mild hyponatremia change free water to every 6 hours per dietitian recommendations. Atrial fibrillation rate controlled. Continue home medications. Weakness PT and OT consulted with recommendation for SNF. Patient has been accepted at [facility] and pre-CERT has been started. DVT prophylaxis: Apixaban Code Status: DNRCC/DNI Plan of care discussed with patient. All questions answered. Patient verbalizes understanding is agreeable to plan of care. This dictation was performed using voice recognition software and may include grammatical and/or spelling errors. Anticipated Date of Discharge 24 to 48 hours Time Spent 54 minutes Digitally Signed by SHUKRI DAVID on 08/10/2025 04:43 PM [facility]10-29-2025 Palliative care Consult note Date of Service 08/10/25 Palliative care consulted as a screen. Chart reviewed. Patient admitted to hospital for BENITO, hypoglycemia, and hyperkalemia. Pt is a DNRDNI. She lives in [place]. The patient does appear to benefit from palliative care at d/c as she has COPD and chronic hypoxic respiratory failure. Since she lives in [place], I would consult [facility] palliative care if the patient is interested in palliative care. Will cancel the screen. Digitally Signed by OLGA THAKKAR on 08/10/2025 09:05 AM [facility]10-28-2025 Note Date of Service 08/09/25 History of Present Illness 80-year-old female with a significant past medical history of COPD with chronic hypoxic respiratoryfailure requiring home O2 at 4 L nasal cannula at baseline, heart failure with preserved ejection fraction, chronic kidney disease stage IIIb, type 2 diabetes mellitus, stroke, hypertension,atrial fibrillilation anticoagulated on apixban, hyperlipidemia, anxiety, depression, chronic anemia, former smoker. Patient presented to [facility] ED 2025 with increasing dyspnea, fall. She was admitted to the hospital for acute on chronic hypoxic and hypercapnic respiratory failure secondary to COPD and CHF exacerbations with aspiration pneumonia. CTA of the chest showed bilateral pleural effusions and opacities concerning for atelectasis versus pneumonia. Initially she had improvement with BiPAP, however wasnoted to have increased respiratory distress requiring intubation on the evening of admission. She had significant esophageal secretions during intubation. She was treated with IV antibiotics and bron chodilators with some improvement. She was able to be extubated to nasal cannula on 07/27/2025. Shetransition back to her home O2 at 4 L nasal cannula on 07/31/2025. Subsequently, postextubation shewas noted to have dysphagia secondary to achalasia. Patient was noted to have significant esophageal secretions with intubation. EGD on 1013 was performed and showed food still in esophagus with removal, esophageal stenosis with dilatation, abnormal esophageal motility consistent with achalasia andgastric stenosis found at the pylorus. Unfortunately, despite dilatation with EGD, the patient was still unable to manage secretions and maintain adequate oral intake safely so PEG tube was placed on07/29/2025. She was transition to internal feedings and tolerating without issues. Her hospitalization was further complicated with new onset atrial fibrillation with RVR which required amiodarone drip and anticoagulation. Echocardiogram showed stage I diastolic dysfunction with LVEF of 70%. No sign ificant valvular abnormalities. Patient was transition to oral amiodarone, metoprolol, and apixabanand heart rate stabilized. During hospitalization patient experienced BENITO superimposed on chronic kidney disease. Baseline creatinine around 1.4-1.6. Her creatinine peaked at 2.5 however improved back to baseline by 07/31/2025. Patient was evaluated by PT OT and speech therapy. She lives home alonewith daughter close by. She was noted to have significant deconditioning due to prolonged hospitalization. Therapy recommended SNF placement on discharge. Patient was medically optimized and discharged to [facility] on 08/05/2025. Patient was having coarse crackles throughout. Chest x-ray showed vascular congestion. She was also hyperkalemic. She received IV Lasix and Lokelma. She was also having episodes of hypoglycemia. Lantus and oral agents were discontinued. Overnight patient required 1-1/2 Aof dextrose. She was still hypoglycemic this morning requiring a full amp of dextrose. Given persistent hyperkalemia, hypoglycemia, fluid overload, BENITO, she will be admitted as an inpatient. On exam today, pt denies any fever or chills. No headache or dizziness. Denies chest pain, palpitations. Admits loose cough, no sputum. Denies N/V/D/C. No melena/hematochezia. No dysuria or hematuria. No new paresthesias. Review of Systems See HPI for specific ROS. All other systems reviewed and negative. Physical Exam Vitals and Measurements T: 36.4 C (Oral) HR: 83 RR: 20 BP: 104/54 SpO2: 92% HT: 170.2 cm WT: 82.1 kg BMI: 28.34 Weight Dosing Weight: 82.1 kg (08/09/25) GEN: Appears chronically ill EYES: No conjunctival erythema, drainage. EOMI EARS: Hearing grossly intact. NOSE: No nasal discharge. THROAT: Oral cavity and pharynx pink and moist. CHEST: Normal S1 and S2. Coarse crackles throughout ABD: Positive bowel sounds x 4 quads. Soft, nondistended, nontender. EXT: No significant deformity or joint abnormality. Trace edema BLE. Peripheral pulses intact. NEURO: Sensation grossly intact SKIN: Skin color normal PSYCH: The mental examination revealed the patient was alert and oriented to self Lab Results 08/09 12:17 Potassium Level: 5.9 H Assessment/Plan 1. Acute exacerbation of chronic heart failure 2. COPD (chronic obstructive pulmonary disease) 3. Chronic kidney disease (CKD), stage IV (severe) 4. Chronic respiratory failure 5. Type 2 diabetes mellitus 6. Hypoglycemia 7. Hyperkalemia 8. Achalasia Acute exacerbation of chronic heart failure- LVEF 70%, stage 1 diastolic dysfunction. Lasix 40mg IVBID. Improvement in breath sounds this afternoon. COPD with chronic respiratory failure- On baseline dose of 4L oxygen. Not in acute exacerbation. Continue inhaled bronchodilators. CKD stage 3-patient follows with nephrology. 12/2024 creatinine was 1.8. Creatinine today is 1.99 with an eGFR of 25. Type 2 diabetes mellitus-patient has been having multiple hypoglycemic episodes. Pioglitazone and Glimepiride discontinued. Patient was receiving Lantus 10 units at at bedtime. Blood sugars are trending up. Will give Lantus 5 units at at bedtime. Corrective sliding scale insulin. Hyperkalemia-Lokelma 10 g 3 times daily x 24 hours. Stop losartan. Discussed with dietitian for recommendations. Change tube feeding to Nepro. Achalasia-patient may have full liquids that are honey thickened. Nepro at 45 mL/h. 200 mL of free water every 4 hours. DVT prophylaxis: Apixaban Code Status: DNRCC/DNI Plan of care discussed with patient. All questions answered. Patient verbalizes understanding is agreeable to plan of care. This dictation was performed using voice recognition software and may include grammatical and/or spelling errors. Problem List/Past Medical History Ongoing Bilateral primary osteoarthritis of knee BMI 31.0-31.9,adult Chronic constipation Chronic kidney disease (CKD), stage IV (severe) Chronic lumbar pain COPD (chronic obstructive pulmonary disease) Degenerative disc disease, lumbar Depressive disorder Fatigue Hiatal hernia with GERD HTN (hypertension) Hyperlipidemia Hypoxemic respiratory failure, chronic Insomnia Medicare annual wellness visit, subsequent Neurodermatitis Peripheral edema Screening for lung cancer Screening for osteoporosis Smoking greater than 40 pack years Status post cholecystectomy TIA (transient ischemic attack) Type 2 diabetes mellitus Vitamin B12 deficiency Vitamin D deficiency Historical Ankle fracture, left COPD with exacerbation Diabetic ulcer of left ankle UTI (urinary tract infection), bacterial Venous stasis ulcer of left ankle limited to breakdown of skin Procedure/Surgical History No qualifying data available. Medications Home Medications (23) Active Abilify 10 mg oral tablet 10 mg = 1 tab(s), Oral, qDay amiodarone 200 mg oral tablet 200 mg = 1 tab(s), PEG, BIDM Atrovent HFA 17 mcg/inh inhalation aerosol 2 puff(s), Inhalation, QID Blood Glucose Test Machine See Instructions Blood Glucose Test Strips See Instructions Breztri Aerosphere 160 mcg-9 mcg-4.8 mcg/inh inhalation aerosol 2 puff(s), Inhalation, BID buPROPion 100 mg oral tablet 100 mg = 1 tab(s), PEG, BID DME MISCellaneous See Instructions Eliquis 5 mg oral tablet 5 mg = 1 tab(s), PEG, BID esomeprazole 40 mg oral delayed release capsule 40 mg = 1 cap(s), Oral, qDay ferrous sulfate 325 mg (65 mg elemental iron) oral tablet 325 mg = 1 tab(s), Oral, qDay glimepiride 2 mg oral tablet 2 mg = 1 tab(s), Oral, BID losartan 50 mg oral tablet 50 mg = 1 tab(s), Oral, qDay lovastatin 40 mg oral tablet 40 mg = 1 tab(s), Oral, qHS metoprolol tartrate 50 mg oral tablet 50 mg = 1 tab(s), PEG, BID montelukast 10 mg oral tablet 10 mg = 1 tab(s), Oral, qDay oxyCODONE 20 mg/mL oral concentrate 5 mg = 0.25 mL, PRN, Oral, q12hr Pen needles 4 mm See Instructions pioglitazone 30 mg oral tablet 30 mg = 1 tab(s), Oral, Daily traZODone 150 mg oral tablet 150 mg = 1 tab(s), Oral, qHS Ventolin HFA MDI (90 mcg/inh) inhalation aerosol 2 puff(s), PRN, Inhalation, q4h Vitamin B-12 1000 mcg oral tablet 1,000 mcg = 1 tab(s), Oral, qDay Vitamin D3 125 mcg (5000 intl units) oral capsule 125 mcg = 1 cap(s), Oral, qDay Allergies NKA Social History Alcohol Use: Never., 02/21/2025 Use: Never., 11/11/2023 Use: Never., 05/07/2019 Employment/School Status: Retired., 02/21/2025 Status: Retired., 11/11/2023 Status: Retired., 02/01/2020 Exercise Home/Environment Living situation: Home/Independent. Lives In: [facility] home. Current Home Treatments Oxygen therapy. Financial concerns: No. Spouse Name: ., 02/21/2025 Living situation: Home/Independent., 11/11/2023 Primary Rejected Items Clerk: self, lives with elderly . Spouse Name: Jony., 10/14/2023 Nutrition/Health Type of diet: Diabetic. Appetite Good. Eating Difficulties None. Caffeine intake amount: half and half coffee-2 cups., 02/21/2025 Type of diet: Diabetic., 11/11/2023 Caffeine intake amount: decaf only., 10/14/2023 Sexual Sexually active: No., 11/11/2023 Substance Abuse Use: Never., 02/21/2025 Use: Never., 11/11/2023 Use: Never., 05/07/2019 Tobacco Nicotine Use: Former smoker, quit more than 30 days ago., 08/05/2025 Nicotine Use: Former smoker, quit more than 30 days ago. Exposure to Tobacco Smoke Lives in non-smoking home., 02/21/2025 Nicotine Use: Former smoker, quit more than 30 days ago., 11/11/2023 Family History Health Status Family Member(s) Family Member(s) Relationship: Mother, Age: 84 Years Relationship: Father, Age: 90 Years Immunizations pneumococcal 13-valent conjugate vaccine: 0 unknown unit (10/13/11) pneumococcal 23-valent vaccine(Pneumovax: 0 unknown unit (10/13/13) SARS-CoV-2 mRNA (tozinameran) vaccine: 30 unknown unit (02/05/22) SARS-CoV-2 mRNA (tozinameran) vaccine: 0.3 unknown unit (07/14/21) SARS-CoV-2 mRNA (tozinameran) vaccine: 30 unknown unit (01/09/21) SARS-CoV-2 mRNA (tozinameran) vaccine: 30 unknown unit (12/19/20) tetanus/diphtheria/pertussMUL.ORD![id number]: 0.5 mL (04/12/17) tetanus/diphtheria/pertussMUL.ORD![id number]: 0 unknown unit (10/13/15) Code Status Code Status - Ordered -- 08/09/25 11:08:00 EDT, DNRCC-Arrest Do Not Intubate, Constant Order Digitally Signed by SHUKRI DAVID APRN-DIANA on 08/09/2025 06:51 PM Digitally Signed by BRENDA STEINER DO on 08/10/2025 11:36 AM [facility]10-28-2025 Evaluation + Plan noteExtracted from: Title:History and Physical Author:SHUKRI DAVID APRN-DIANA Date:08/09/25 1. Acute exacerbation of chr onic heart failure 2. COPD (chronic obstructive pulmonary disease) 3. Chronic kidney disease (CKD), stage IV (severe) 4. Chronic respiratory failure 5. Type 2 diabetes mellitus 6. Hypoglycemia 7. Hyperkalemia 8. Achalasia Acute exacerbation of chronic heart failure- LVEF 70%, stage 1 diastolic dysfunction. Lasix 40mg IV BID. Improvement in breath sounds this afternoon. COPD with chronic respiratory failure- On baseline dose of 4L oxygen. Not in acute exacerbation. Continue inhaled bronchodilators. CKD stage 3-patient follows with nephrology. 12/2024 creatinine was 1.8. Creatinine today is 1.99 with an eGFR of 25. Type 2 diabetes mellitus-patient has been having multiple hypoglycemic episodes. Pioglitazone and Glimepiride discontinued. Patient was receiving Lantus 10 units at at bedtime. Blood sugars are trending up. Will give Lantus 5 units at at bedtime. Corrective sliding scale insulin. Hyperkalemia-Lokelma 10 g 3 times daily x 24 hours. Stop losartan. Discussed with dietitian for recommendations. Change tube feeding to Nepro. Achalasia-patient may have full liquids that are honey thickened. Nepro at 45 mL/h. 200 mL of free water every 4 hours. DVT prophylaxis: Apixaban Code Status: DNRCC/DNI Plan of care discussed with patient. All questions answered. Patient verbalizes understanding is agreeable to plan of care. This dictation was performed using voice recognition software and may include grammatical and/or spelling errors. Future Appointments Appointment Date:11/14/2025 11:00:00 AM Scheduled Provider:TAYLOR TAYLOR Location:[facility] Appointment Type:PC OV Future Scheduled Tests Laboratory* Vitamin B12 Level 11/16/25 * A1C Hemoglobin 11/16/25 * Complete Blood Count 11/16/25 * Lipid Profile 11/16/25 * Albumin/Creatinine Ratio, Random Urine 11/16/25 * Vitamin D Level 11/16/25 * Complete Metabolic Panel 11/16/25 Radiology* CT Low Dose Lung Cancer Screening (LDCT) 05/16/25 [facility] 10-28-2025 Hospital Discharge instructions Patient Education 08/09/2025 09:00:43 Weakness, [id number] Weakness Weakness is a lack of strength. You may feel weak all over your body (generalized), or you may feelweak in one part of your body (focal). There are many potential causes of weakness. Sometimes, the cause of your weakness may not be known. Some causes of weakness can be serious, so it is important to see your doctor. Follow these instructions at home: Activity Rest as needed. Try to get enough sleep. Most adults need 7 8 hours of sleep each night. Talk to your doctor about how much sleep you need each night. Do exercises, such as arm curls and leg raises, for 30 minutes at least 2 days a week or as told byyour doctor. Think about working with a physical therapist or sales trainer to help you get stronger. General instructions Take [id number] and prescription medicines only as told by your doctor. Eat a healthy, well-balanced diet. This includes: ?Proteins to build muscles, such as lean meats and fish. ?Fresh fruits and vegetables. ?Carbohydrates to boost energy, such as whole grains. Drink enough fluid to keep your pee (urine) pale yellow. Keep all follow-up visits as told by your doctor. This is important. Contact a doctor if: Your weakness does not get better or it gets worse. Your weakness affects your ability to: ?Think clearly. ?Do your normal daily activities. Get help right away if you: Have sudden weakness on one side of your face or body. Have chest pain. Have trouble breathing or shortness of breath. Have problems with your vision. Have trouble talking or swallowing. Have trouble standing or walking. Are light-headed. Pass out (lose consciousness). Summary Weakness is a lack of strength. You may feel weak all over your body or just in one part of your body. There are many potential causes of weakness. Sometimes, the cause of your weakness may not be known. Rest as needed, and try to get enough sleep. Most adults need 7 8 hours of sleep each night. Eat a healthy, well-balanced diet. This information is not intended to replace advice given to you by your health care provider. Make sure you discuss any questions you have with your health care provider. Document Released: 09/11/2009 Document Revised: 05/05/2019 Document Reviewed: 05/05/2019 [employer] Patient Education 2020 [employer]. Follow Up Care 08/05/2025 11:29:17 With:TAYLOR TAYLOR Address: [address] [facility] [place] [phone] When: Unknown [facility] 10-28-2025 Pastoral care Progress note Pastoral Care Note Entered On: 08/09/2025 9:24 EDT Performed On: 08/09/2025 9:22 EDT by Janak Lopez Pastoral Care Spiritual Care Visit Initiated by : [employer] Setter Type of Pastoral Visit : Initial visit Spiritual Care Reason for Visit : General Spiritual Assessment : Hopeful, Positive Image of God Spiritual Care Emotional Assessment : Accepting of Situation, Optimistic, Has Support Network Spiritual Care Intervention : Active listening, Words of Encouragement, Explore Emotional Needs, Prayer with Patient/Family Spiritual Outcomes : Focusing More on Positives, Set realistic goals Spiritual Plan of Care : Visit as Requested Pastoral Care Comments : patient reports on good family support and being hopeful about getting home again; pt is grateful for approval to be here for therapy and welcomes presence and prayer for support today; pt denies worries or needs Pastoral Care Visit Length : 10 minute(s) Janak Lopez - 08/09/2025 9:22 EDT Digitally Signed by Janak Lopez on 08/09/2025 09:22 AM [facility]10-28-2025 Note Discharge Instructions Thank you for allowing [facility] [place] to assist you with your healthcare needs. The following is importantdischarge information regarding your hospital visit. Your Care Team Shukri David CNP Your Diagnosis Achalasia of esophagus Anxiety and depression Asthenia Chronic anemia Chronic heart failure with preserved ejection fraction Chronic hypoxic respiratory failure COPD (chronic obstructive pulmonary disease) COPD without exacerbation Dysphasia Hiatal hernia with GERD HTN (hypertension) New onset atrial fibrillation Stage 3b chronic kidney disease (CKD) Type 2 diabetes mellitus Vitamin D deficiency What to do next Scheduled Follow-Up Appointments Appointment Type When With Where Contact Information StatusPC OV 11/14/2025 11:00 AM EST TAYLOR TAYLOR [facility] [place] Confirmed Follow Up Appointments Follow Up with TAYLOR TAYLOR Where:[address] [facility] [place] [phone] The Following Activity and Diet Have Been Ordered for You No qualifying data available. No qualifying data available. The Following Treatments Have Been Ordered for You Discharge Labs No qualifying data available. Discharge Radiology No qualifying data available. Other Therapies No qualifying data available. Post Acute Orders No qualifying data available. Allergies NKA Immunizations This Visit Given Vaccine Dateinfluenza virus vaccine, inactivated 08/06/2025 Medications Please ask your primary doctor or pharmacist before taking any other medication not listed, including over the counter drugs, herbal medications, vitamins and or supplements as they may interact withyour home medications. What How Much When Why Instructions Last Dose Unchanged albuterol (Ventolin HFA MDI (90 mcg/ inh) inhalation aerosol) 2 puff(s) by inhalation Every 4 hours as needed for as needed for wheezing COPD with exacerbation Unchanged amiodarone (amiodarone 200 mg oral tablet) 1 tab(s) PEG tube Twice daily with meals Unchanged apixaban (Eliquis 5 mg oral tablet) 1 tab(s) PEG tube Two (2) times a day Unchanged ARIPiprazole (Abilify 10 mg oral tablet) 1 tab(s) by mouth Once a day Duration: 90 Days Unchanged budesonide/ formoterol/ glycopyrrolate (Breztri Aerosphere 160 mcg-9 mcg-4.8 mcg/ inh inhalation aerosol) 2 puff(s) by inhalation Two (2) times a day COPD (chronic obstructive pulmonary disease) Duration: 90 Days not to exceed 4 inhalations/ day Unchanged buPROPion (buPROPion 100 mg oral tablet) 1 tab(s) PEG tube Two (2) times a day Unchanged cholecalciferol (Vitamin D3 125 mcg (5000 intl units) oral capsule) 1 cap by mouth Once a day Vitamin D deficiency Duration: 90 Days Unchanged cyanocobalamin (Vitamin B-12 1000 mcg oral tablet) 1 tab(s) by mouth Once a day Duration: 90 Days Unchanged DME (Blood Glucose Test Machine) See instructions DM (diabetes mellitus) Dispense a One Touch glucometer, use as directed twice daily to test blood sugar. Diagnosis: E11.9 Unchanged DME (Blood Glucose Test Strips) See instructions DM (diabetes mellitus) Dispense One Touch glucose test strips, #200, use 1 strip twice daily as directed to test blood sugar. Diagnosis: E11.9 Unchanged DME (DME MISCellaneous) See instructions Peripheral edema bilateral knee highcompression hose medium 20-30 Unchanged DME (Pen needles 4 mm) See instructions DM (diabetes mellitus) Use 1 pen needle daily to inject basal insulin Unchanged esomeprazole (esomeprazole 40 mg oral delayed release capsule) 1 cap by mouth Once a day Hiatal hernia with GERD Duration: 90 Days Unchanged ferrous sulfate (ferrous sulfate 325 mg (65 mg elemental iron) oral tablet) 1 tab(s) by mouth Once a day Unchanged glimepiride (glimepiride 2 mg oral tablet) 1 tab(s) by mouth Two (2) times a day Duration: 90 Days Unchanged ipratropium (Atrovent HFA 17 mcg/ inh inhalation aerosol) 2 puff(s) by inhalation Four (4) times a day Unchanged losartan (losartan 50 mg oral tablet) 1 tab(s) by mouth Once a day HTN (hypertension) Duration: 90 Days Unchanged lovastatin (lovastatin 40 mg oral tablet) 1 tab(s) by mouth Daily at bedtime Duration: 90 Days Unchanged metoprolol (metoprolol tartrate 50 mg oral tablet) 1 tab(s) PEG tube Two (2) times a day Unchanged montelukast (montelukast 10 mg oral tablet) 1 tab(s) by mouth Once a day Duration: 90 Days Unchanged oxyCODONE (oxyCODONE 20 mg/ mL oral concentrate) 0.25 Milliliter by mouth Every 12 hours as needed for as needed for pain Unchanged pioglitazone (pioglitazone 30 mg oral tablet) 1 tab(s) by mouth Every day Duration: 90 Days Unchanged traZODone (traZODone 150 mg oral tablet) 1 tab(s) by mouth Daily at bedtime Duration: 90 Days Please take this list to your next doctor s visit. Bring all medications you take, including over the counter medications, herbals and other supplements with you to your doctor s visit. Patients and families are reminded to discard old lists and to update any records with all medication providers or retail pharmacies. Education Materials Weakness Weakness is a lack of strength. You may feel weak all over your body (generalized), or you may feelweak in one part of your body (focal). There are many potential causes of weakness. Sometimes, the cause of your weakness may not be known. Some causes of weakness can be serious, so it is important to see your doctor. Follow these instructions at home: Activity Rest as needed. Try to get enough sleep. Most adults need 7 8 hours of sleep each night. Talk to your doctor about how much sleep you need each night. Do exercises, such as arm curls and leg raises, for 30 minutes at least 2 days a week or as told byyour doctor. Think about working with a physical therapist or sales trainer to help you get stronger. General instructions Take qkfo-ybt-verjlif and prescription medicines only as told by your doctor. Eat a healthy, well-balanced diet. This includes: ? Proteins to build muscles, such as lean meats and fish. ? Fresh fruits and vegetables. ? Carbohydrates to boost energy, such as whole grains. Drink enough fluid to keep your pee (urine) pale yellow. Keep all follow-up visits as told by your doctor. This is important. Contact a doctor if: Your weakness does not get better or it gets worse. Your weakness affects your ability to: ? Think clearly. ? Do your normal daily activities. Get help right away if you: Have sudden weakness on one side of your face or body. Have chest pain. Have trouble breathing or shortness of breath. Have problems with your vision. Have trouble talking or swallowing. Have trouble standing or walking. Are light-headed. Pass out (lose consciousness). Summary Weakness is a lack of strength. You may feel weak all over your body or just in one part of your body. There are many potential causes of weakness. Sometimes, the cause of your weakness may not be known. Rest as needed, and try to get enough sleep. Most adults need 7 8 hours of sleep each night. Eat a healthy, well-balanced diet. This information is not intended to replace advice given to you by your health care provider. Make sure you discuss any questions you have with your health care provider. Document Released: 09/11/2009 Document Revised: 05/05/2019 Document Reviewed: 05/05/2019 [employer] Patient Education 2020 [employer] Additional Information VACCINATE! IT SAVES LIVES! Members of the community who have not yet received the COVID-19 vaccine and would like to receive it can visit one of [facility] vaccine clinics. There are many vaccine clinic locations within the [facility]. For locations and available times, please visit [email or web address] It is important to note that some COVID mobile vaccine clinics are held outdoors and may be canceled in rainy or stormy conditions. To learn more about pediatric vaccinations (ages 5-11), we invite you to visit the [facility] webpage. [email or web address].akWipits.org/pages/[email or web address]-[email or web address]-[email or web address]-[email or web address] [email or web address] learn more about the COVID-19 vaccine, we invite you to visit the CDC website for a list of frequently asked questions.https://www.cdc.gov/coronavirus/2019-ncov/vaccines/faq.html [facility] Patient Portal Access Instructions: Stay connected with your healthcare team and access your personal medical information anytime with the [facility] Patient Portal. Please follow the directions below to create your [facility] account: 1.Access the email account you provided upon registration to the hospital/physician office.2.Look for an invitation email from [facility].3.Open the email and access the invitation link: AcceptInvitation to [facility].4.Fill in the required magaña to create your account. To access your account, visit [employer] or scan the QR code above. Click the bluebutton labeled "Access Patient Portal" and then log in with the username and password that you created in the steps above. You will be able to view your test results, lab results, a summary of your visits, upcoming appointments and more. There is also a convenient messaging option where you can send secure messages to your provider. In addition, you will have the ability to download any documentsor summaries to your computer and/or send the information securely to a physician. Remember that your healthcare information is confidential, so carefully consider who you will allowto register on the [facility] Patient Portal for access to your information. You can also access the [facility] Patient Portal on the [employer] [facility] [employer]. Simply click on "Patient Portal" and then log into your account. If you would like to receive a full copy of your medical records, please contact the [facility] Medical Records Department by calling [phone], Friday through Friday between 8 a.m. and 4:30 p.m. HOW TO SAFELY DISPOSE OF PRESCRIPTION MEDICATIONS Please use one of the following methods to safely dispose of your unused medications. 1.Use a drug disposal kit: the drug disposal pouch allows you to safely discard your old and unuseddrugs. Ask your nurse to give you one when you are discharged.2.Visit a local take-back location: Many local pharmacies and police departments have programs that collect old and unwanted prescriptiondrugs. Call your local pharmacy or go to http://eSight.SportsBUZZ/9U8Mn7o to find one close to you.3.Make use of household items: Use cat litter or old coffee grounds to dispose medications if other options arenot available. Mix your drugs with these household products, seal them in an airtight container andthrow it into the garbage. Call [facility]: [phone] to be sure your drugs can be disposed of in this way. Some medicines may require a different approach.4.Never flush your medications down the toilet. IF YOU HAVE BEEN PRESCRIBED AN OPIOID FOR PAIN If you have been prescribed an opioid (such as hydrocodone, oxycodone or morphine), it is critical to understand the possible side effects and risks of opioid pain medications. Even when taken as directed, opioids can have several side effects including: Tolerance, meaning you might need to take more of a medication for the same pain relief. Nausea, vomiting and/or constipation. Sleepiness, dizziness, dry mouth, confusion, depression or itching. Physical dependence, meaning you have withdrawal symptoms when a medication is stopped, can develop within a few days. KNOW YOUR RESPONSIBILITIES It is important to know exactly how much and how often to take the opioid pain medications you are prescribed. Never take opioids in higher amounts or more often than prescribed. Do not combine opioids with alcohol or other drugs that cause drowsiness, such as benzodiazepines, also known as benzos, including diazepam and alprazolam, muscle relaxants or sleep aids. Never sell or share prescription opioids. This is illegal. Store opioids in a secure place and out of reach of others (including children, family, friends and visitors). The last page of this document has been signed and retained as a CHART COPY. Signatures Patient Education Materials Weakness, Rxqa-ue-Imfj Medication Leaflets My discharge plan and instructions have been reviewed and explained to me and I,ORVILLEWING MANRIQUEZ understand my current condition and have read and understand these discharge instructions. I have received a written copy of the plan/instructions. If I have questions, I am aware that I should contact my doctor. Patient/Clinical Nursing Assistant Signature: Date/Time: Relationship to Patient: Witness Name/Signature: Date/Time: [facility]10-28-2025 Note* Exam Date Time Procedure Performing Provider Status 08/09/25 9:00 AM XR Chest 2 Views KAVYA KOEHLER MD; A [facility] (Verified) [id number] ORIGINAL HISTORY: CHF COMPARISON: Previous day FINDINGS: The lateral views are nondiagnostic. There is faint hazy opacification in the lower lung; this may be due in part to habitus. Pulmonary vasculature is normal to mildly congested. IMPRESSION: Mild vascular congestion. Interpreted by: Kavya Koehler MD Preliminary Report By: Kavay Koehler MD Electronically signed By Kavya Koehler MD Dictated Date: 08/09/2025 9:13:39 AM Prelim Date: 08/09/2025 9:16:33 AM Sign Date: 08/09/2025 9:16:33 AM Ordering Provider: SHUKRI DAVID RP [facility]10-27-2025 Note Date of Service 08/08/2025 Chief Complaint Asthenia Subjective 80-year-old female with a significant past medical history of COPD with chronic hypoxic respiratoryfailure requiring home O2 at 4 L nasal cannula at baseline, heart failure with preserved ejection fraction, chronic kidney disease stage IIIb, type 2 diabetes mellitus, stroke, hypertension, hyperlipidemia, anxiety, depression, chronic anemia, former smoker. Patient presented to [facility] ED 2025 with increasing dyspnea, fall. She was admitted to the hospital for acute on chronic hypoxic and hypercapnic respiratory failure secondary to COPD and CHF exacerbations with aspiration pneumonia. CTA of the chest showed bilateral pleural effusions and opacities concerning for atelectasis versus pneumonia. Initially she had improvement with BiPAP, however wasnoted to have increased respiratory distress requiring intubation on the evening of admission. She had significant esophageal secretions during intubation. She was treated with IV antibiotics and bron chodilators with some improvement. She was able to be extubated to nasal cannula on 07/27/2025. Shetransition back to her home O2 at 4 L nasal cannula on 07/31/2025. Subsequently, postextubation shewas noted to have dysphagia secondary to achalasia. Patient was noted to have significant esophageal secretions with intubation. EGD on 1013 was performed and showed food still in esophagus with removal, esophageal stenosis with dilatation, abnormal esophageal motility consistent with achalasia andgastric stenosis found at the pylorus. Unfortunately, despite dilatation with EGD, the patient was still unable to manage secretions and maintain adequate oral intake safely so PEG tube was placed on07/29/2025. She was transition to internal feedings and tolerating without issues. Her hospitalization was further complicated with new onset atrial fibrillation with RVR which required amiodarone drip and anticoagulation. Echocardiogram showed stage I diastolic dysfunction with LVEF of 70%. No sign ificant valvular abnormalities. Patient was transition to oral amiodarone, metoprolol, and apixabanand heart rate stabilized. During hospitalization patient experienced BENITO superimposed on chronic kidney disease. Baseline creatinine around 1.4-1.6. Her creatinine peaked at 2.5 however improved back to baseline by 07/31/2025. Patient was evaluated by PT OT and speech therapy. She lives home alonewith daughter close by. She was noted to have significant deconditioning due to prolonged hospitalization. Therapy recommended SNF placement on discharge. Patient was medically optimized and discharged to [facility] on 08/05/2025. Patient is on baseline dose of oxygen. Initially lungs were clear to auscultation and diminished. She was noted to have coarse crackles and then fine crackles today. Patient states she is unable to bring up any sputum. Previous imaging reviewed from [facility]. X-ray chest on 08/28 showed subsegmental atelectasis at the lung base. Scant pleural fluid in the left lung base. X-ray chest showed interstitial edema pattern with questionable small left pleural effusion. Patient is not having any increased. No fevers or chills. Objective Vitals and Measurements T: 37.3 C (Oral) TMIN: 36.8 C (Oral) TMAX: 37.3 C (Oral) HR: 85 RR: 22 BP: 123/67 SpO2: 93% WT: 80.2 kg Intake and Output Last 24 hours Intake Free Water: 620.00 Medication 10.00 Tube Feeding Intake 659.00 Output Urine Voided 350.00 Stool Count 2.00 Urine Count 3.00 Total Summary Total Intake 1289.00 Total Output 350.00 Fluid Balance 939.00 Physical Exam GEN: Appears chronically ill CHEST: Normal S1 and S2. Rhythm is regular. Clear to auscultation, without rales, rhonchi, wheezing. ABD: Positive bowel sounds x 4 quads. Soft, nondistended, nontender. EXT: No significant deformity or joint abnormality. Trace edema BLE. Peripheral pulses intact. NEURO: Sensation grossly intact SKIN: Skin color normal PSYCH: The mental examination revealed the patient was alert and oriented to self Weight Dosing Weight: 80.2 kg (08/08/25) Dosing Weight: 59.1 kg (08/05/25) Medications Medications (24) Active Scheduled: (18) amiodarone 200 mg tablet 200 mg 1 tab(s), PEG, BIDM apixaban 5 mg tablet 5 mg 1 tab(s), PEG, BID ARIPiprazole 5 mg tablet 10 mg 2 tab(s), PEG, qDay atorvastatin 10 mg tablet 10 mg 1 tab(s), PEG, qDay budesonide 0.25 mg/2 mL Susp UD 0.25 mg 2 mL, Inhalation, BIDRT bupropion 100 mg Tablet 100 mg 1 tab(s), PEG, BID cholecalciferol 125 mcg capsule (Vit D3 5000 unit(s)) 125 mcg 1 cap(s), PEG, qDay cyanocobalamin 500 mcg Tablet 1,000 mcg 2 tab(s), PEG, qDay esomeprazole [address] capsule 40 mg 2 cap(s), PEG, qDay ferrous sulfate 325 mg Tablet 325 mg 1 tab(s), PEG, qDay glimepiride 2 mg Tablet 2 mg 1 tab(s), PEG, BID insulin glargine 100 units/ml solution 10 unit(s) 0.1 mL, Subcutaneous, qHS insulin lispro 100 units/mL Soln COA (3 mL) Give 0-15 units/dose, Subcutaneous, q6h ipratropium 0.02% (0.5mg/2.5mL) UD 0.5 mg 2.5 mL, Inhalation, QIDRT losartan 50 mg tablet 50 mg 1 tab(s), PEG, qDay metoprolol tartrate 50 mg tablet 50 mg 1 tab(s), PEG, BID montelukast 10 mg Tablet 10 mg 1 tab(s), PEG, qPM traZODONE 50 mg Tablet 150 mg 3 tab(s), PEG, qHS Continuous: (0) PRN: (6) acetaminophen 325 mg Tablet 650 mg 2 tab(s), Oral, q4h albuterol - ipratropium 2.5 mg-0.5 mg/3 mL Inhal Kendra UD 3 mL, Inhalation, q2hRT albuterol 0.083% Soln UD (2.5mg/3 mL) 2.5 mg 3 mL, Inhalation, q4hRT dextrose 50% Solution Disp syringe 50 mL 12.5 gram(s) 25 mL, IV Push, AsDirected guaifenesin 100 mg/5 mL Liquid 120 mL 200 mg 10 mL, PEG, q4h oxycodone 5 mg tablet (immediate release) 5 mg 1 tab(s), PEG, q12hr Imaging Results and Diagnostics XR Chest 1 View Result Date: August 08, 2025 Verified By: EFREM RODRIGUEZ MD CLINICAL STATEMENT: IMPRESSION: Interstitial edema pattern. Question small left pleural effusion. Assessment/Plan 1. Asthenia 2. Achalasia of esophagus 3. COPD (chronic obstructive pulmonary disease) 4. Chronic hypoxic respiratory failure 5. Chronic heart failure with preserved ejection fraction 6. New onset atrial fibrillation 7. Type 2 diabetes mellitus Asthenia continue PT and OT Achalasia of esophagus continue PEG tube feedings. Speech therapy has been consulted. Prior to discharge from [facility] patient was evaluated by speech therapy with recommendations for honey thick liquids and supervision by staff for feedings. COPD continue inhaled bronchodilators, Acapella device, incentive spirometer. She is having difficulty clearing secretions. She has coarse crackles. Add as needed DuoNebs and one-time dose of inhaledhypertonic saline to see how she responds. Chronic hypoxic respiratory failure on baseline dose of 4 L via nasal cannula HFpEF patient is having coarse crackles throughout. Chest x-ray shows interstitial edema and pleural effusion. No valvular disease noted on echocardiogram. Will obtain CBC, BMP, BNP. Atrial fibrillation rate controlled. Continue home medications. Type 2 diabetes mellitus Patient is receiving tube feeds. Glucose this morning was 75. Blood sugarshave been labile. Discontinue pioglitazone. Hold afternoon dose of glimepiride. Continue Lantus. Corrective sliding scale insulin. DVT prophylaxis: Apixaban Code Status: DNR CCA/DNI Plan of care discussed with patient. All questions answered. Patient verbalizes understanding is agreeable to plan of care. This dictation was performed using voice recognition software and may include grammatical and/or spelling errors. CPT: 45653 Time Spent 42 minutes Digitally Signed by SHUKRI ADVID on 08/08/2025 03:34 PM [facility]10-27-2025 Note* Exam Date Time Procedure Performing Provider Status 08/08/25 11:37 AM XR Chest 1 View EFREM RODRIGUEZ MD; (Verified) [id number] ORIGINAL EXAMINATION: ONE XRAY VIEW OF THE CHEST08/08/2025 11:37 am Portable upright COMPARISON: 10/07/2017 HISTORY: ORDERING SYSTEM PROVIDED HISTORY: Reason for Exam: Abnormal breath sounds, FINDINGS: Heart appears enlarged probably exaggerated by projection also. Mild calcification of aorta. Interstitial and vascular prominence. No consolidation or significant pleural effusion. Left basilar density is probably summation artifact, small effusion not excluded. IMPRESSION: Interstitial edema pattern. Question small left pleural effusion. Interpreted by: Efrem Rodriguez MD Preliminary Report By: Efrem Rodirguez MD Electronically signed By Efrem Rodriguez MD Dictated Date: 08/08/2025 1:13:27 PM Prelim Date: 08/08/2025 1:14:13 PM Sign Date: 08/08/2025 1:14:13 PM Ordering Provider: SHUKRI DAVID [facility]10-27-2025 Nurse Progress note Speech therapy consult called. Digitally Signed by Doris Agosto RN on 08/08/2025 11:07 AM [facility]10-27-2025 Pastoral care Progress note Pastoral Care Note Entered On: 08/08/2025 9:43 EDT Performed On: 08/08/2025 9:43 EDT by Janak Lopez Pastoral Care Spiritual Care Intervention : Patient Asleep Janak Lopez - 08/08/2025 9:43 EDT Digitally Signed by Janak Lopez on 08/08/2025 09:43 AM [facility]10-25-2025 Nurse Progress note PT'S FAMILY EXPRESSED THAT THE PT. WAS ALLOWED TO HAVE HONEY THICKENED LIQUIDS AT [facility]. THE COMMERCIAL SUBCONTRACTOR AGREED THAT THIS WOULD BE ALLOWED. THIS NURSE PROVIDED COFFEE HONEY THICKENED LIQUIDS TO THE PATIENT AND EXPLAINED THAT SHE SHOULD TAKE SPOONFULS INSTEAD OF SIPS. PT. TOOK SPONNFULS INSTRUCTED. WILL CONTINUE TO MONITOR. Digitally Signed by Bree Uribe RN on 08/06/2025 01:29 PM [facility]10-24-2025 Note Date of Service 08/05/2025 Chief Complaint General weakness. History of Present Illness Ms. Lin is a 80-year-old female with a significant past medical history of COPD with chronic hypoxic respiratory failure requiring home O2 at 4 L nasal cannula at baseline, heart failure with preserved ejection fraction, chronic kidney disease stage IIIb, type 2 diabetes mellitus, stroke, hypertension, hyperlipidemia, anxiety, depression, chronic anemia, former smoker, that presented to [place] emergency department on 2025 with worsening shortness of breath, fall. She was admitted to the hospital for acute on chronic hypoxic and hypercapnic respiratory failure secondary to COPD and CHF exacerbations with aspiration pneumonia. CTA of the chest showed bilateral pleural effusions and opacities concerning for atelectasis versus pneumonia. Initially she had improvement with BiPAP, however was noted to have increased respiratory distress requiring intubation on the evening of admission. She had significant esophageal secretions during intubation. She was treated with IV antibiotics and bronchodilators with some improvement. She was able to be extubated to nasal cannula on 07/27/2025. She transition back to her home O2 at 4 L nasal cannula on 07/31/2025. Subsequently, postextubation she was noted to have dysphagia secondary to achalasia. Patient was noted to have significant esophageal secretions with intubation. EGD on 1013 was performed and showed food still in esophagus with removal, esophageal stenosis with dilatation, abnormal esophageal motility consistent with achalasia and gastric stenosis found at the pylorus. Unfortunately, despite dilatation with EGD, the patient was still unable to manage secretions and maintain adequate oral intakesafely so PEG tube was placed on 07/29/2025. She was transition to internal feedings and toleratingwithout issues. Her hospitalization was further complicated with new onset atrial fibrillation with RVR which required amiodarone drip and anticoagulation. Echocardiogram showed stage I diastolic dysfunction with LVEF of 70%. No significant valvular abnormalities. Patient was transition to oral amiodarone, metoprolol, and apixaban and heart rate stabilized. During hospitalization patient experienced BENITO superimposed on chronic kidney disease. Baseline creatinine around 1.4-1.6. Her creatinine peaked at 2.5 however improved back to baseline by 07/31/2025. Patient was evaluated by PT OT and speech therapy. She lives home alone with daughter close by. She was noted to have significant deconditioning due to prolonged hospitalization. Therapy recommending SNF placement on discharge. Patient was medically optimized and discharged to [facility] on 08/05/2025. Patient evaluated bedside, she is awake, alert, no acute distress. She denies pain or discomfort. No fever, chills, dizziness, lightheadedness, chest pain, palpitations, dyspnea, increased sputum production, nausea, vomiting, diarrhea, abdominal pain, or urinary complaints. Review of Systems All systems reviewed for pertinent positives and negatives and unremarkable as noted per HPI. Physical Exam Vitals and Measurements T: 36.7 C (Oral) TMIN: 36.3 C (Oral) TMAX: 36.7 C (Oral) HR: 86 RR: 18 BP: 124/64 SpO2: 94% HT: 170.2 cm WT: 59.1 kg BMI: 20.4 Weight Dosing Weight: 59.1 kg (08/05/25) CONSTITUTIONAL: Awake, alert, nontoxic in appearance, no acute distress. SKIN: [place], warm, dry. HEAD: Normocephalic, atraumatic. ENT: Pupils equal and reactive, EOMS intact. No icterus. Oral mucosa pink and moist. NECK: Supple, trachea midline. No JVD. HEART: Irregular, no murmur. LUNGS: Symmetric with respiration, even unlabored. Clear to auscultation. ABDOMEN: soft, nontender, with active bowel sounds in all 4 quadrants. PEG site intact without erythema, warmth, or drainage. EXTREMITIES: No edema, calves supple, non-tender. Distal pulses palpable. NEUROLOGICAL: No focal deficits, motor sensory is intact. PSYCHIATRIC: Alert oriented 4 with appropriate mood and affect. Assessment/Plan 1. Asthenia Acute, secondary to prolonged hospitalization. Consult PT/OT. Patient goal is to return home independently. 2. COPD without exacerbation COPD not in acute exacerbation. Patient's respiratory status appears at baseline. She is maintaining adequate O2 saturations on home O2 of 4 L. No wheezing, dyspnea, or increased sputum production. Continue supportive care. Encourage early mobility and lung expansion therapy. Resume home bronchodilators and inhaled corticosteroids 3. Chronic hypoxic respiratory failure Secondary to chronic COPD. Former tobacco use. Continue home oxygen as stated above. 4. Dysphasia Secondary to achalasia. Patient underwent EGD on 07/26/2025 which showed food still in esophagus with removal, esophageal stenosis was dilated, abnormal esophageal motility consistent with achalasia and gastric stenosis found at the pylorus. Despite dilatation with EGD the patient was still unable to manage secretions and maintain adequate p.o. safely. PEG tube was placed 07/29/2025. Will continue continuous enteral feedings with Jevity 1.2 with a goal of 65 mL/h. Free water 150 mL every 6 hours. The patient is strict n.p.o., however she was cleared by speech therapy at [facility] for honeythick liquids by chad with staff only on 08/01/2025 essentially for comfort. Will consult speech therapy for further recommendations. Appreciate their input. 5. Achalasia of esophagus As stated above. 6. New onset atrial fibrillation Rates are well-controlled. She denies chest pain, palpitations, or shortness of breath. Echocardiogram at [place] showed stage I diastolic dysfunction with LVEF of 70%. No significant valvular abnormalities. Will continue amiodarone, metoprolol, and apixaban. 7. Chronic heart failure with preserved ejection fraction Not in acute exacerbation. Was noted to be euvolemic as of 07/31/2025 with no need for further diuretics. She remains euvolemic on exam today. Continue beta- nancie. Encouraged 2 g sodium diet. 8. Stage 3b chronic kidney disease (CKD) Stable. BENITO superimposed on chronic kidney disease stage IIIb during her hospitalization. Baseline creatinine around 1.4-1.6. Creatinine peaked at 2.59 during hospitalization, improved back to baseline 07/31/2025. Will monitor BMP periodically as needed. Avoid nephrotoxic medications. 9. Non-insulin dependent type 2 diabetes mellitus Glycemic monitoring per protocol. Will resume home oral glycemic agents with low-dose corrective sliding scale every 6 hours while NPO. Glycemic goal less than 180. Avoid hypoglycemia. 10. Anxiety and depression Chronic, stable. Denies homicidal or suicidal ideation. Resume home dose of Abilify, bupropion, trazodone. 11. Chronic anemia All other chronic comorbidities including chronic anemia, stroke, hypertension, hyperlipidemia are stable. I will resume home medications including ARB and beta-nancie for hypertension. Plan of care was discussed the patient, questions answered, she is amenable to the plan. Case was discussed with my collaborating physician Dr. Cristino Sheets. This dictation was performed using voice recognition software and may include grammatical and or spelling errors. 73 minutes was spent reviewing acute hospital records including progress notes, H&P, discharge summary, consult notes, laboratory studies, diagnostic studies, reviewing ordering medications, interviewing and examining patient, and discussing with my collaborating physician. Problem List/Past Medical History Ongoing Bilateral primary osteoarthritis of knee BMI 31.0-31.9,adult Chronic constipation Chronic kidney disease (CKD), stage IV (severe) Chronic lumbar pain COPD (chronic obstructive pulmonary disease) Degenerative disc disease, lumbar Depressive disorder Fatigue Hiatal hernia with GERD HTN (hypertension) Hyperlipidemia Hypoxemic respiratory failure, chronic Insomnia Medicare annual wellness visit, subsequent Neurodermatitis Peripheral edema Screening for lung cancer Screening for osteoporosis Smoking greater than 40 pack years Status post cholecystectomy TIA (transient ischemic attack) Type 2 diabetes mellitus Vitamin B12 deficiency Vitamin D deficiency Historical Ankle fracture, left COPD with exacerbation Diabetic ulcer of left ankle UTI (urinary tract infection), bacterial Venous stasis ulcer of left ankle limited to breakdown of skin Procedure/Surgical History No qualifying data available. Medications Home Medications (23) Active Abilify 10 mg oral tablet 10 mg = 1 tab(s), Oral, qDay amiodarone 200 mg oral tablet 200 mg = 1 tab(s), PEG, BIDM Atrovent HFA 17 mcg/inh inhalation aerosol 2 puff(s), Inhalation, QID Blood Glucose Test Machine See Instructions Blood Glucose Test Strips See Instructions Breztri Aerosphere 160 mcg-9 mcg-4.8 mcg/inh inhalation aerosol 2 puff(s), Inhalation, BID buPROPion 100 mg oral tablet 100 mg = 1 tab(s), PEG, BID DME MISCellaneous See Instructions Eliquis 5 mg oral tablet 5 mg = 1 tab(s), PEG, BID esomeprazole 40 mg oral delayed release capsule 40 mg = 1 cap(s), Oral, qDay ferrous sulfate 325 mg (65 mg elemental iron) oral tablet 325 mg = 1 tab(s), Oral, qDay glimepiride 2 mg oral tablet 2 mg = 1 tab(s), Oral, BID losartan 50 mg oral tablet 50 mg = 1 tab(s), Oral, qDay lovastatin 40 mg oral tablet 40 mg = 1 tab(s), Oral, qHS metoprolol tartrate 50 mg oral tablet 50 mg = 1 tab(s), PEG, BID montelukast 10 mg oral tablet 10 mg = 1 tab(s), Oral, qDay oxyCODONE 20 mg/mL oral concentrate 5 mg = 0.25 mL, PRN, Oral, q12hr Pen needles 4 mm See Instructions pioglitazone 30 mg oral tablet 30 mg = 1 tab(s), Oral, Daily traZODone 150 mg oral tablet 150 mg = 1 tab(s), Oral, qHS Ventolin HFA MDI (90 mcg/inh) inhalation aerosol 2 puff(s), PRN, Inhalation, q4h Vitamin B-12 1000 mcg oral tablet 1,000 mcg = 1 tab(s), Oral, qDay Vitamin D3 125 mcg (5000 intl units) oral capsule 125 mcg = 1 cap(s), Oral, qDay Allergies NKA Social History Alcohol Use: Never., 02/21/2025 Use: Never., 11/11/2023 Use: Never., 05/07/2019 Employment/School Status: Retired., 02/21/2025 Status: Retired., 11/11/2023 Status: Retired., 02/01/2020 Exercise Home/Environment Living situation: Home/Independent. Lives In: Multilevel home. Current Home Treatments Oxygen therapy. Financial concerns: No. Spouse Name: ., 02/21/2025 Living situation: Home/Independent., 11/11/2023 Primary Rejected Items Clerk: self, lives with elderly . Spouse Name: Jony., 10/14/2023 Nutrition/Health Type of diet: Diabetic. Appetite Good. Eating Difficulties None. Caffeine intake amount: half and half coffee-2 cups., 02/21/2025 Type of diet: Diabetic., 11/11/2023 Caffeine intake amount: decaf only., 10/14/2023 Sexual Sexually active: No., 11/11/2023 Substance Abuse Use: Never., 02/21/2025 Use: Never., 11/11/2023 Use: Never., 05/07/2019 Tobacco Nicotine Use: Former smoker, quit more than 30 days ago., 08/05/2025 Nicotine Use: Former smoker, quit more than 30 days ago. Exposure to Tobacco Smoke Lives in non-smoking home., 02/21/2025 Nicotine Use: Former smoker, quit more than 30 days ago., 11/11/2023 Family History Health Status Family Member(s) Family Member(s) Relationship: Mother, Age: 84 Years Relationship: Father, Age: 90 Years Immunizations pneumococcal 13-valent conjugate vaccine: 0 unknown unit (10/13/11) pneumococcal 23-valent vaccine(Pneumovax: 0 unknown unit (10/13/13) SARS-CoV-2 mRNA (tozinameran) vaccine: 30 unknown unit (02/05/22) SARS-CoV-2 mRNA (tozinameran) vaccine: 0.3 unknown unit (07/14/21) SARS-CoV-2 mRNA (tozinameran) vaccine: 30 unknown unit (01/09/21) SARS-CoV-2 mRNA (tozinameran) vaccine: 30 unknown unit (12/19/20) tetanus/diphtheria/pertussMUL.ORD![id number]: 0.5 mL (04/12/17) tetanus/diphtheria/pertussMUL.ORD![id number]: 0 unknown unit (10/13/15) Code Status Code Status - Ordered -- 08/05/25 18:03:00 EDT, Full Code, Constant Order Digitally Signed by VIKTORIYA DUNCAN Marino AGACNP on 08/05/2025 09:08 PM [facility]10-24-2025 Procedure [facility]10-24-2025 Procedure [facility]10-24-2025 Procedure [facility]10-24-2025 Procedure [facility]10-24-2025 Evaluation + Plan noteExtracted from: Title:History and Physical Author:DUNCAN SADLER AGACNP Date:08/05/25 1. Asthenia Acute, secondary to prolonged hospitalization. Consult PT/OT. Patient goal is to return home independently. 2. COPD without exacerbation COPD not in acute exacerbation. Patient's respiratory status appears at baseline. She is maintaining adequate O2 saturations on home O2 of 4 L. No wheezing, dyspnea, or increased sputum production. Continue supportive care. Encourage early mobility and lung expansion therapy. Resume home bronchodilators and inhaled corticosteroids 3. Chronic hypoxic respiratory failure Secondary to chronic COPD. Former tobacco use. Continue home oxygen as stated above. 4. Dysphasia Secondary to achalasia. Patient underwent EGD on 07/26/2025 which showed food still in esophagus with removal, esophageal stenosis was dilated, abnormal esophageal motility consistent with achalasia and gastric stenosis found at the pylorus. Despite dilatation with EGD the patient was still unable to manage secretions and maintain adequate p.o. safely. PEG tube was placed 07/29/2025. Will continue continuous enteral feedings with Jevity 1.2 with a goal of 65 mL/h. Free water 150 mL every 6 hours. The patient is strict n.p.o., however she was cleared by speech therapy at [facility] for honey thick liquids by chad with staff only on 08/01/2025 essentially for comfort. Will consult speech therapy for further recommendations. Appreciate their input. 5. Achalasia of esophagus As stated above. 6. New onset atrial fibrillation Rates are well-controlled. She denies chest pain, palpitations, or shortness of breath. Echocardiogram at [place] showed stage I diastolic dysfunction with LVEF of 70%. No significant valvular abnormalities. Will continue amiodarone, metoprolol, and apixaban. 7. Chronic heart failure with preserved ejection fraction Not in acute exacerbation. Was noted to be euvolemic as of 07/31/2025 with no need for further diuretics. She remains euvolemic on exam today. Continue beta- nancie. Encouraged 2 g sodium diet. 8. Stage 3b chronic kidney disease (CKD) Stable. BENITO superimposed on chronic kidney disease stage IIIb during her hospitalization. Baseline creatinine around 1.4-1.6. Creatinine peaked at 2.59 during hospitalization, improved back to baseline 07/31/2025. Will monitor BMP periodically as needed. Avoid nephrotoxic medications. 9. Non-insulin dependent type 2 diabetes mellitus Glycemic monitoring per protocol. Will resume home oral glycemic agents with low-dose corrective sliding scale every 6 hours while NPO. Glycemic goal less than 180. Avoid hypoglycemia. 10. Anxiety and depression Chronic, stable. Denies homicidal or suicidal ideation. Resume home dose of Abilify, bupropion, trazodone. 11. Chronic anemia All other chronic comorbidities including chronic anemia, stroke, hypertension, hyperlipidemia are stable. I will resume home medications including ARB and beta-nancie for hypertension. Plan of care was discussed the patient, questions answered, she is amenable to the plan. Case was discussed with my collaborating physician Dr. Cristino Sheets. This dictation was performed using voice recognition software and may include grammatical and or spelling errors. 73 minutes was spent reviewing acute hospital records including progress notes, H&P, discharge summary, consult notes, laboratory studies, diagnostic studies, reviewing ordering medications, interviewing and examining patient, and discussing with my collaborating physician. Future Appointments Appointment Date:11/14/2025 11:00:00 AM Scheduled Provider:TAYLOR TAYLOR Location:[facility] Appointment Type:PC OV Future Scheduled Tests Laboratory* Vitamin B12 Level 11/16/25 * A1C Hemoglobin 11/16/25 * Complete Blood Count 11/16/25 * Lipid Profile 11/16/25 * Albumin/Creatinine Ratio, Random Urine 11/16/25 * Vitamin D Level 11/16/25 * Complete Metabolic Panel 11/16/25 Radiology* CT Low Dose Lung Cancer Screening (LDCT) 05/16/25 [facility] 10-24-2025 [facility]10-23-2025 Procedure [facility]2025 Procedure [facility]25 Radiology Diagnostic study [facility]10-13-2025 Radiology Diagnostic study [facility] 07-24-2025 NoteAcceptable Specimen? Acceptable Specimen(Evaluation not needed) Gram Stain 4+ Gram positive cocci 2+ Gram negative cocco bacillus No White Blood CellsWCleveland Clinic Fairview HospitalComment on above:Performed By: #### [id number], [id number] ####[facility] [address] [place], [phone] Radiology Diagnostic study note [facility]10-10-2025 Radiology Diagnostic study [facility]10-10-2025 Radiology Diagnostic study [facility]10-10-2025 Procedure [facility]10-10-2025 Radiology Diagnostic study [facility]10-10-2025 Radiology Diagnostic study [facility]10-10-2025 History and physical note Author Antoni Argueta [facility] Note Date/Time 2025 9 :08pm [facility] Medical Records Department [address] [place] [address] H&P Exam - Hospitalist 07/22/25 1411 MR#: [id number] Acct: [id number] Name: WING LIN Rep #:[id number] : 1945 80 From: Antoni luciano DO PCP: LILI STOREY Status:ADM IN Location: [place] [id number] HPI - General General Date of Admission: 07/22/25 Date of Service: 07/22/25 Chief Complaint: Worsening shortness of breath HPI Narrative WING LIN, is a 80 F who presented to [facility] ED on 2025 with worsening shortness of breath. Medical history significant for COPD with chronic respiratory failure on home 4 L nasal cannula, CKD stage IIIb,history of CVA, chronic debility, anxiety/depression, type 2 diabetes mellitus, hypertension and hyperlipidemia. Patient lives at home alone, daughter lives nearby. Patient arrived to the ED today in respiratory distress. ABG showed pH7.18, pCO2 58, pO2 60 on nasal cannula. She was placed on BiPAP shortly after this. She was noted to have wheezing on exam so she was given multiple rounds of DuoNebs and a dose of IV Solu-Medrol and a dose of IV Lasix. CTA chest showed no PE, did show cardiomegaly with bilateral pleural effusions CHF as wellas airspace opacities in the lower lungs concerning for atelectasis versus pneumonia; also showed a dilated esophagus with ingested material consistent with GERD. Patient had bruising noted on her neck so CT soft tissue neck was also done and showed no concerns the neck but did show fluid and air-filled dilatation of the visualized esophagus concerning for achalasia. Repeat ABG after 1 hour on BiPAP at low O2 settings showed pH 7.31, pCO2 39, pO2 82. She was able to be taken off BiPAP and put back on 4 L nasal cannula and was sattingin the mid 90s. Given concern for COPD and CHF exacerbations as well as possible dysphagia with concern for aspiration ammonia, hospitalist was contacted for admission. I saw the patient at bedside in the ED, daughter was present. Patient was stillon BiPAP when I saw her. She was breathing comfortably and maintaining appropriate oxygen saturations. Patient was alert and making appropriate eye contact and answering some questions appropriately but was not able to expound upon her answers much. Daughter helped with the history. Daughter notes that patient had a fall at home about 2 weeks ago and has had generalized weakness since then. Daughter has been living at the patient's house for the past 2 weeks. She notes that the patient has been getting up with assistance to go to the bathroom and then going back to either her chair or bed without doing much else. No recent infectious contacts that they are aware of. Daughter does notethe patient has had swallowing issues for some time now. She has had difficultygetting food and drink to go down into her stomach and often has regurgitation episodes. No emeka aspiration events that daughter is aware of. Has been taking home medications as prescribed. No other acute concerns currently. Willbe admitted for further management. [facility] Medical History (Updated 07/22/25 @ 21:[address] Antoni Argueta, DO) Wears glasses Wears dentures Diabetes Walker as ambulation aid Arthritis Hepatitis High cholesterol Easy bruising Back pain Syncope Dietary restriction History of hiatal hernia Gastric reflux On home oxygen therapy Shortness of breath on exertion Leg cramps History of pain when walking History of edema History of irregular heartbeat CKD (chronic kidney disease), stage IV Chronic hypoxic respiratory failure, on home oxygen therapy Anxiety and depression Chronic obstructive pulmonary disease Iron deficiency anemia Hyperlipidemia Diabetes mellitus Former smoker Stroke/cerebrovascular accident Hypertension Emphysema of lung CKD stage 4 due to type 1 diabetes mellitus Home Medications ?Medication ?Instructions ?Recorded ?Last Taken ?Type aspirin 81 mg chewable tablet 81 mg PO DAILY@0800 Hear t health 12/27/16 07/28/23 History bupropion HCl 150 mg tablet,12 hr 150 mg PO BID mental health 12/27/16 07/28/23 History sustained-release cyanocobalamin (vitamin B-12) 1,000 mg PO DAILY supple ment 12/27/16 07/28/23 History 1,000 mcg tablet (Vitamin B-12) lovastatin 40 mg tablet 40 mg PO QHS cholesterol 07/27/23 History montelukast 10 mg tablet 10 mg PO DAILY allergies 07/28/23 History trazodone 150 mg tablet 150 mg PO QHS insomnia 12/2707/27/23 History venlafaxine 150 mg 150 mg PO DAILY depression 0 12/27/16 07/28/23 History capsule,extended release 24 hr albuterol sulfate 90 mcg/actuation 1 - 2 puff inhalati on Q4H PRN PRN 12/30/16 01/19/20 Rx aerosol inhaler (Ventolin HFA) Sob &/Or Wheezing ##1 bisoprolol fumarate 5 mg tablet 5 mg PO DINNER blood p ressure 04/19/21 07/27/23 History pioglitazone 30 mg tablet 30 mg PO DAILY@0800 diabetes 01/26/22 07/28/23 History oxycodone-acetaminophen 5 mg-325 1 tab PO Q12H PRN diogo k pain 07/28/23 07/28/23 History mg tablet aripiprazole 10 mg tablet 10 mg PO DAILY 02/29/24 Unkn own History esomeprazole magnesium 40 mg 40 mg PO DAILY 02/29/24 U nknown History capsule,delayed release losartan 50 mg tablet 50 mg PO DAILY #30 tabs 02/11 12/06 Unknown Rx glimepiride 2 mg tablet 2 mg PO BID 05/11/24 Unknown History Allergy/AdvReac Type Severity Reaction Status Date / Time No Known Allergies Allergy Verified 07/22/25 13:19 Family History Mother Diabetes Heart disease Hypertension Father Diabetes Heart disease Hypertension Surgical History (Updated 05/25/24 @ 10:05 by Destiney Vazquez) History of ERCP Hx laparoscopic cholecystectomy Status post open reduction with internal fixation (ORIF) of fracture of ankle Social History household members: spouse Smoking Status: Former smoker how long ago did patient quit smoking: Smoked 2 ppd until ~ 10 years ago since teen until quit. alcohol intake: never substance use type: does not use ROS Constitutional Constitutional: Reports fatigue and weakness; Denies chills or fever(s) Eyes Eyes: Denies change in vision Cardiovascular Cardiovascular: Denies chest pain Respiratory/Chest Respiratory/Chest: Reports cough, shortness of breath at rest and wheezing; Denies productive cough or shortness of breath with exertion Gastrointestinal Gastrointestinal: Denies abdominal pain, nausea or vomiting Genitourinary Genitourinary: Denies dysuria Musculoskeletal Musculoskeletal: Denies arthralgias or myalgias Neurologic Neurologic: Denies dizziness, focal weakness, headache(s), numbness or tingling Vital Signs Vital Signs Vital Signs: 07/22/25 12:11 07/22/25 12:11 07/22/25 12:15 Temperature 99.8 F H Temperature Source Axillary Pulse Rate 121 H Respiratory Rate 21 H 29 H Respiratory Effort Short of Breath Labored Accessory Muscle Use Respiratory Depth Normal Respiratory Pattern Normal Stridor Blood Pressure 134/75 H Blood Pressure Mean 94 Pulse Ox 98 97 Oxygen Delivery Method Bi-pap Bi-pap Fraction of Inspired Oxygen (FIO2) 45 07/22/25 12:17 07/22/25 12:30 07/22/25 12:41 Temperature 99.8 F H Temperature Source Axillary Pulse Rate 115 H 119 H Respiratory Rate 23 H 25 H 24 H Respiratory Effort Respiratory Depth Respiratory Pattern Stridor Blood Pressure 134/75 H 145/75 H Blood Pressure Mean 94 98 Pulse Ox 97 94 95 Oxygen Delivery Method Bi-pap Bi-pap Fraction of Inspired Oxygen (FIO2) 45 07/22/25 13:11 07/22/25 13:30 07/22/25 14:00 Temperature 98.9 F 98.7 F Temperature Source Core Core Pulse Rate 113 H 110 H 117 H Respiratory Rate 18 23 H 20 H Respiratory Effort Respiratory Depth Respiratory Pattern Blood Pressure 125/64 H 124/67 H 130/58 H Blood Pressure Mean 84 82 80 Pulse Ox 96 97 98 Oxygen Delivery Method Bi-pap Fraction of Inspired Oxygen (FIO2) Weight Weight: 79.2 kg Body Mass Index (BMI) 27.3 Physical Exam Const alert, no apparent distress and average body habitus Constitutional Narrative: Elderly female, breathing comfortably on BiPAP, fatigued and weak appearing, alert and answering some questions with short appropriate responses but with some delayed responses as well, otherwise sitting back in bed and in no acute distress. General Appearance: cooperative and comfortable HEENT normocephalic, head/scalp atraumatic, hearing grossly normal bilaterally, nasal mucous membranes and turbinates normal and moist oral mucous membranes HEENT Narrative: BiPAP in place. Eyes PERRL, EOMs intact bilaterally and conjunctivae normal Neck Neck Narrative: Bruising noted on the right side of the neck presumed from recent fall. Chest inspection of chest normal Resp normal respiratory effort and no use of accessory muscles Resp Narrative: Breathing comfortably on BiPAP. Mild wheezing noted in upper airways bilaterally and crackles noted in low to mid lung zones bilaterally. Cardio no murmurs and peripheral pulses 2+ throughout Cardio Narrative: Tachycardic, regular rhythm. GI normal to inspection, nondistended, normoactive bowel sounds, soft to palpation,non-tender and non-distended Back/Spine normal ROM Extremity full ROM Extremity Narrative: +1-2 lower extremity nonpitting edema noted. Skin no rashes or lesions noted Neuro moves all extremities and no focal motor deficits Neuro Narrative: Generalized lower extremity weakness noted. Psych Psych Narrative: Flat affect. Results Lab / Micro Data 07/22/25 12:32 07/22/25 12:32 Labs: Laboratory Results - last 24 hr 07/22/25 12:32: WBC 17.0 H, RBC 2.90 L, Hgb 9.1 L, Hct 28.8 L, MCV 99.3 H, MCH 31.4, MCHC 31.6 L, RDW Std Deviation 49.3 H, RDW Coeff of Tessa 13.5, Plt Count 230, MPV 9.4, Immature Gran % (Auto) 1.000 H, Neut % (Auto) 87.3 H, Lymph % (Auto) 4.4 L, Travis % (Auto) 6.7, Eos % (Auto) 0.4, Baso % (Auto) 0.2, Absolute Neuts (auto) 14.8 H, Absolute Lymphs (auto) 0.75 L, Nucleated RBC % 0, Sodium 133, Potassium 5.4 H, Chloride 102, Carbon Dioxide 19.0 L, Anion Gap 12, BUN 50 H, Creatinine 2.04 H, Estim Creat Clear Calc 24.23 L, Est GFR (MDRD) Non-Af 24 L, BUN/Creatinine Ratio 24.5 H, Glucose 232 H, Lactic Acid < 1.0, Calcium 8.6, Total Bilirubin 0.40, AST 55 H, ALT 30, Alkaline Phosphatase 132 H, Troponin T High Sens 40 H, NT pro BNP II 5405 H, Total Protein 7.1, Albumin 3.3 L, Globulin3.9, Albumin/Globulin Ratio 0.8 L 07/22/25 13:09: Urine Color Yellow, Urine Clarity Clear, Urine pH 6.0, Ur Specific [place] 1.015, Urine Protein 100 H, Urine Glucose (UA) Normal, Urine Ketones Negative, Urine Occult Blood 10 H, Urine Nitrite Negative, Urine Bilirubin Negative, Urine Urobilinogen 1 H, Ur Leukocyte Esterase 25 H, Urine RBC 0 SEEN, Urine WBC 0 SEEN, Ur Squamous Epith Cells 0 SEEN, Urine Bacteria 0 SEEN, Urine Mucus 0 SEEN Micro: Microbiology 07/22/25 12:30 Mucosa - Nose SARS-CoV-2, Influenza & RSV (PCR) - Final ABG Data ABG results: ABG 07/22/25 07/22/25 12:43 13:27 Specimen Type ART ART Sample Site L Radial R Brach pH 7.18 L* 7.31 L Bicarbonate Actual 21.7 L 20.0 L Total CO2 24 21 Base Excess -7 L -6 L O2 Saturation 83 L 95 O2 % 45.0 40.0 ABG pCO2 58.7 H 39.6 ABG pO2 60 L 82 Miranda Test Positive O2 Delivery Device BiPAP BiPAP Vent Mode Not entered Not entered Crit Call To/Read Back Yes Clinical Comments 15 6 15 6 Imaging Radiology Impression Chest X-Ray 07/22/25 12:17 IMPRESSION: Findings in the mid and lower right lung suggesting possible pneumonia, with possible underlying fibrosis/scarring. Follow-up PA and lateral chest exam is recommended. Scarring versus small effusion the in the lateral left lung base. Tortuous calcific aortic atherosclerosis. Reading Location: [facility] Assessment & Plan Assessment/Plan (1) Acute on chronic respiratory failure with hypoxia and hypercapnia: PLAN: Plan Patient is a 80-year-old female who presented to [facility] ED on 2025 with worsening shortness of breath. 1. Acute on chronic hypoxic and hypercapnic respiratory failure suspected secondary to COPD and CHF exacerbations with concern for aspiration pneumonia ? Admit under inpatient status to PCU. On 4 L nasal cannula at baseline. Was requiring BiPAP on admission for acute respiratory distress. Initial ABG with pH 7.18, pCO2 59, pO2 60 on 6 L nasal cannula; improved to pH 7.31, pCO2 39, pO282 on BiPAP with improved work of breathing. Seems multifactorial secondary to COPD exacerbation, new onset heart failure exacerbation with pulmonary edema andpossible aspiration pneumonia in setting of dysphagia with possible achalasia asbelow. CTA chest showed no PE, did show cardiomegaly with bilateral pleural effusions and airspace opacities in the lower lungs concerning for atelectasis versus pneumonia. BNP 5405. COVID/flu/RSV negative. Procalcitonin elevated at0.68. Will treat with scheduled DuoNebs, IV steroids, IV Zosyn and IV Lasix 40 mg twice daily for now. Echocardiogram ordered. Full respiratory PCR panel andsputum culture ordered. Wean supplemental oxygen as able. 2. Mildly elevated creatinine in setting of CKD stage IIIb, mild hyperkalemia ? Creatinine 2.04 on admit, baseline around 1.7-1.9. Potassium 5.4. No hyperkalemic changes on EKG. Suspect secondary to mild degree of cardiorenal syndrome due to CHF exacerbation as above. Treating with IV Lasix as above, monitor daily BMP and urine output. 3. Dysphagia with concern for achalasia, history of GERD ? Speech therapy and GI consulted. CTA chest showed a dilated esophagus with ingesta material consistent with gastroesophageal reflux, and CT soft tissue neck showed fluid and air-filled dilatation of the visualized esophagus concerning for achalasia. Will keep n.p.o. at this time. Appreciate speech therapy and GI recommendations. Will treat with IV PPI daily while patient remains NPO. 4. Acute on chronic debility with recent mechanical fall ? PT/OT/case management consulted. Patient lives at home alone, daughter lives close by. Daughter noted the patient had a mechanical fall about 2 weeks ago athome. Did not hit her head but does have bruising on her neck noted from this. Patient has been primarily in bed or in a chair and only gets up with assistanceto use the restroom since then. Has needed home health care in the past but does not appear she has needed SNF placement. Appreciate therapy recommendations. Chronic medical conditions: ? Type 2 diabetes mellitus: Glucose 232 on admit. Most recent A1c 5.9% in February 2024. Repeat A1c ordered. Will treat with sliding scale insulin every 6 hours for now with patient n.p.o. Hold home pioglitazone and glimepiride. ? Hypertension, hyperlipidemia, history of CVA: Hypertensive to the 150s to 160ssystolic on admit. Continue home bisoprolol, losartan, aspirin and statin. ? Anxiety/depression: Stable. Continue home bupropion, aripiprazole and venlafaxine. ? Chronic anemia: Hemoglobin 9.1 on admit, stable at baseline. DVT prophylaxis: Heparin subcu CODE STATUS: Full code, verified Expected disposition: TBD Total clinical time spent by myself addressing the patient's medical issues, reviewing all the data, and collaborating with patient's care team: 84 minutes. Charges/Coding Visit Charges Inpatient E&M: 07491 Init Hosp L3 07/22/252107 <Electronically signed by Antoni Argueta DO> Cosigner Signature (if applicable): CC: LILI TAYLOR; Dr. Antoni Argueta DO~ Signed [facility] Work Phone: 1(590) 810-561710-10-2025 Discharge summary Author Dulce Maria Raymond [facility] Note Date/Time July 23, 2025 7 :16am [facility] Medical Records Department [address] [place] [address] Emergency Department Summary 07/22/25 MR#: [id number] Acct: [id number] Name: WING LIN Rep #:[id number] : 1945 [id number] From: Dulce Maria Raymond MD PCP: LILI STOREY Status:ADM IN Location: ICU ICU03-1 HPI History of Present Illness Chief Complaint: Shortness of Breath Narrative Narrative: Patient is a 80-year-old female presenting to the emergency department in respiratory distress. Patient states that she has been sick for the past few days. Reports URI symptoms including cough, fatigue and sore throat. Patient states that she started to feel short of breath at this time as well. She does have a past medical history of COPD on baseline 4 L nasal cannula, CHF, CKD, hyponatremia. She states that she has been trying to use her inhalers at home with no relief. EMS reports when they got there they placed her on a nonrebreather initially with no significant improvement and then placed her on CPAP. [facility] Medical History Wears glasses Wears dentures Diabetes Walker as ambulation aid Arthritis Hepatitis High cholesterol Easy bruising Back pain Syncope Dietary restriction History of hiatal hernia Gastric reflux On home oxygen therapy Shortness of breath on exertion Leg cramps History of pain when walking History of edema History of irregular heartbeat CKD (chronic kidney disease), stage IV Chronic hypoxic respiratory failure, on home oxygen therapy Anxiety and depression Chronic obstructive pulmonary disease Iron deficiency anemia Hyperlipidemia Diabetes mellitus Former smoker Stroke/cerebrovascular accident Hypertension Emphysema of lung CKD stage 4 due to type 1 diabetes mellitus Home Medications ?Medication ?Instructions ?Recorded ?Last Taken ?Type aspirin 81 mg chewable tablet 81 mg PO DAILY@0800 Hear t health 12/27/16 07/28/23 History bupropion HCl 150 mg tablet,12 hr 150 mg PO BID mental health 12/27/16 07/28/23 History sustained-release cyanocobalamin (vitamin B-12) 1,000 mg PO DAILY supple ment 12/27/16 07/28/23 History 1,000 mcg tablet (Vitamin B-12) lovastatin 40 mg tablet 40 mg PO QHS cholesterol 07/27/23 History montelukast 10 mg tablet 10 mg PO DAILY allergies 07/28/23 History trazodone 150 mg tablet 150 mg PO QHS insomnia 12/2707/27/23 History venlafaxine 150 mg 150 mg PO DAILY depression 0 12/27/16 07/28/23 History capsule,extended release 24 hr albuterol sulfate 90 mcg/actuation 1 - 2 puff inhalati on Q4H PRN PRN 12/30/16 01/19/20 Rx aerosol inhaler (Ventolin HFA) Sob &/Or Wheezing ##1 bisoprolol fumarate 5 mg tablet 5 mg PO DINNER blood p ressure 04/19/21 07/27/23 History pioglitazone 30 mg tablet 30 mg PO DAILY@0800 diabetes 01/26/22 07/28/23 History oxycodone-acetaminophen 5 mg-325 1 tab PO Q12H PRN diogo k pain 07/28/23 07/28/23 History mg tablet aripiprazole 10 mg tablet 10 mg PO DAILY 02/29/24 Unkn own History esomeprazole magnesium 40 mg 40 mg PO DAILY 02/29/24 U nknown History capsule,delayed release losartan 50 mg tablet 50 mg PO DAILY #30 tabs 02/11 12/06 Unknown Rx glimepiride 2 mg tablet 2 mg PO BID 05/11/24 Unknown History Allergy/AdvReac Type Severity Reaction Status Date / Time No Known Allergies Allergy Verified 07/22/25 13:19 Family History Mother Diabetes Heart disease Hypertension Father Diabetes Heart disease Hypertension Surgical History History of ERCP Hx laparoscopic cholecystectomy Status post open reduction with internal fixation (ORIF) of fracture of ankle Social History household members: spouse Smoking Status: Former smoker how long ago did patient quit smoking: Smoked 2 ppd until ~ 10 years ago since teen until quit. alcohol intake: never substance use type: does not use ROS ROS ED ROS Narrative see HPI EXAM Physical Exam Narrative Exam Narrative: Vital signs: Reviewed General: Alert and oriented x 3. Acute respiratory distress HEENT: Head is normocephalic and atraumatic, sinuses nontender, pupils equal round and reactive. Nares are patent. Oropharynx and throat exams normal. No oropharyngeal trauma. Neck: Supple without lymphadenopathy nontender. There is a large healing bruiseto the right anterior neck. There is no tenderness to palpation of this area. There is no expanding hematoma. There is no pulsatile mass. Trachea is midline. Phonation is normal. No midline cervical spinal tenderness to palpation. No step-offs or deformities. Cardiovascular: Tachycardic rate and regular rhythm, no murmurs. No rubs or gallops. Normal S1 and S2 Respiratory: Clear to auscultation bilaterally. No wheezes, rales, rhonchi Chest: Chest wall is atraumatic and nontender to palpation. No crepitus, ecchymosis or erythema. Abdominal: Soft and nontender. Normal bowel sounds. No guarding or rebound. Nonsurgical abdomen Extremities: Bilateral 2+ pitting edema in the lower extremities. No erythema or warmth. No tenderness to palpation of the calves. No tenderness. No bruising. Normal range of motion. Normal sensation. Neurological: Cranial nerves II through XII are grossly intact. Normal strengthand sensation. Normal cerebellar function The rest of the physical exam is unremarkable Const Vital Signs: 07/22/25 12:11 07/22/25 12:11 07/22/25 12:15 Temperature 99.8 F H Temperature Source Axillary Pulse Rate 121 H 110 H Respiratory Rate 21 H 29 H Respiratory Effort Short of Breath Labored Accessory Muscle Use Respiratory Depth Normal Respiratory Pattern Normal Stridor Blood Pressure 134/75 H Blood Pressure Mean 94 Pulse Ox 98 97 Oxygen Delivery Method Bi-pap Bi-pap Oxygen Flow Rate (L/min) Fraction of Inspired Oxygen (FIO2) 45 07/22/25 12:17 07/22/25 12:30 07/22/25 12:36 Temperature 99.8 F H Temperature Source Axillary Pulse Rate 115 H 109 H 110 H Respiratory Rate 23 H 25 H 25 H Respiratory Effort Respiratory Depth Respiratory Pattern Stridor Blood Pressure 134/75 H Blood Pressure Mean 94 Pulse Ox 97 94 Oxygen Delivery Method Bi-pap Oxygen Flow Rate (L/min) Fraction of Inspired Oxygen (FIO2) 45 07/22/25 12:41 07/22/25 13:00 07/22/25 13:11 Temperature Temperature Source Pulse Rate 119 H 113 H Respiratory Rate 24 H 18 Respiratory Effort Respiratory Depth Respiratory Pattern Blood Pressure 145/75 H 125/64 H Blood Pressure Mean 98 84 Pulse Ox 95 96 Oxygen Delivery Method Bi-pap Bi-pap Oxygen Flow Rate (L/min) Fraction of Inspired Oxygen (FIO2) 40 07/22/25 13:30 07/22/25 14:00 07/22/25 14:30 Temperature 98.9 F 98.7 F Temperature Source Core Core Pulse Rate 110 H 117 H 112 H Respiratory Rate 23 H 20 H 20 H Respiratory Effort Respiratory Depth Respiratory Pattern Blood Pressure 124/67 H 130/58 H 126/70 H Blood Pressure Mean 82 80 88 Pulse Ox 97 98 100 Oxygen Delivery Method Bi-pap Oxygen Flow Rate (L/min) Fraction of Inspired Oxygen (FIO2) 07/22/25 14:30 07/22/25 15:00 07/22/25 15:00 Temperature 98.5 F Temperature Source Core Pulse Rate 111 H 110 H 110 H Respiratory Rate 16 20 H 21 H Respiratory Effort Respiratory Depth Respiratory Pattern Blood Pressure 126/70 H 68/56 L Blood Pressure Mean 86 60 Pulse Ox 100 100 99 Oxygen Delivery Method Bi-pap Oxygen Flow Rate (L/min) Fraction of Inspired Oxygen (FIO2) 35 07/22/25 15:00 07/22/25 15:17 07/22/25 15:38 Temperature 98.4 F 98.4 F Temperature Source Core Core Pulse Rate 103 H 102 H Respiratory Rate 19 H 20 H Respiratory Effort Respiratory Depth Respiratory Pattern Blood Pressure 68/56 L 139/114 H Blood Pressure Mean 61 124 Pulse Ox 99 98 Oxygen Delivery Method Nasal Cannula Oxygen Flow Rate (L/min) 4 Fraction of Inspired Oxygen (FIO2) 07/22/25 15:45 07/22/25 15:45 07/22/25 16:00 Temperature 98.4 F 98.4 F Temperature Source Core Core Pulse Rate 109 H 100 Respiratory Rate 20 H 19 H Respiratory Effort Respiratory Depth Respiratory Pattern Blood Pressure 130/70 H 130/70 H 142/76 H Blood Pressure Mean 86 86 94 Pulse Ox 97 98 Oxygen Delivery Method Oxygen Flow Rate (L/min) Fraction of Inspired Oxygen (FIO2) 07/22/25 16:16 07/22/25 16:30 07/22/25 17:00 Temperature 98.4 F 98.3 F Temperature Source Core Core Pulse Rate 107 H 111 H 117 H Respiratory Rate 25 H 19 H 15 Respiratory Effort Respiratory Depth Respiratory Pattern Stridor Blood Pressure 149/78 H 156/77 H Blood Pressure Mean 97 100 Pulse Ox 97 100 99 Oxygen Delivery Method Oxygen Flow Rate (L/min) Fraction of Inspired Oxygen (FIO2) 35 MDM MDM MDM Narrative Medical decision making narrative: Patient is a 80-year-old female presenting to the emergency department for respiratory distress. Patient was seen and examined. She arrives on CPAP whichwas switched to BiPAP once here. She is tachypneic, tachycardic and speaking inshort sentences. Diffuse wheezing heard on physical exam. 3 DuoNebs and Solu-Medrol given for possible COPD exacerbation. Differential includes but is not limited to: COPD exacerbation, CHF, pneumonia, less likely PE, pneumothorax, ACS. flash pulmonary edema given normal blood pressure EKG with poor baseline however appears to be sinus tachycardia with no ischemic changes. No dysrhythmia. ABG was initially ordered which shows respiratory acidosis, pCO2 of 58 with a pH is 7.17. This was obtained when patient was first placed on BiPAP. Reviewing I think this was likely obtained venously. Will repeat 1 in 30 minutes from the initial. Given patient's initial vitals and her feeling unwell the past few days, concern for possible sepsis. Blood cultures x 2 obtained. Rocephin and azithromycin given for probable respiratorysource of infection. I will hold off on fluids at this time given the patient has bilateral lower extremity edema and I have concern for possible CHF as well causing her respiratory distress. CBC with a leukocytosis of 17 and chronic anemia of 9.1. CMP with worsening kidney function from baseline with BUN of 50 and creatinine of 2.04. Mild hyperkalemia of 5.4. EKG with no findings of hyperkalemia. Lactic within normal limits. Urinalysis with no evidence of urinary tract infection. Initial troponin of 40 which I would expect with her kidney disease. BNP elevated at 5405. Repeat blood gas with much improvement, normal pCO2 and pO2 with a pH of 7.3. SO2 of 95% portable chest x-ray was reviewed by myself. There is left-sided blunting of the costophrenic angle and cephalization noted. Radiology read with findings in the mid and lower right lung suggesting possible pneumonia with possible underlying fibrosis or scarring. Scarring versus small effusion in the left lateral lung base. Initially I did order CT imaging of the patient's chest to rule out pulmonary embolism however lower on my differential. Once reviewing the patient's labs this was canceled given her GFR. I do think the patient's clinical presentationis consistent with pneumonia and a COPD exacerbation. If the patient has further decline would consider imaging at that time. Patient and daughter at bedside were updated on the lab and imaging findings and the need for admission. All questions were answered. I did discuss patient's CODE STATUS with her given she is on BiPAP. She is alert and oriented x 3 and has capacity to make her own medical decisions at this time. She is full code. Patient evaluated by hospitalist, Dr. Argueta, he asked that the patient have a CTA chest done to evaluate for PE. This was ordered. In addition, CT soft tissue was added on to evaluate her neck given the large bruise on her right sided anterior neck and already obtaining imaging with contrast. CTA chest shows cardiomegaly and bilateral pleural effusions. Airspace opacities in the lower lungs that may represent atelectasis or pneumonia. Dilated esophagus withingested material consistent with GERD. No evidence of pulmonary embolism. CT neck shows no acute or active inflammatory process identified in the neck. No neck mass or cervical lymphadenopathy. Fluid and air-filled dilatation of the visualized esophagus, may reflect achalasia. Mild-moderate biapical pulmonary emphysema. 8 mm nodule in the left upper lobe. Multiple nonspecific enlarged upper mediastinal lymph nodes; see separate CT thorax report. Multiple small subcentimeter thyroid nodules/cysts. Patient admitted for further management of her pneumonia and COPD exacerbation. Clinical impression: Acute hypoxic respiratory failure Pneumonia BENITO History & Record Review Discussion w/independent historian: Patient and Family Lab Data Attestation: I reviewed the patient's lab results. Labs: Laboratory Results - last 24 hr 07/22/25 07/22/25 07/22/25 12:32 13:09 15:23 WBC 17.0 H RBC 2.90 L Hgb 9.1 L Hct 28.8 L MCV 99.3 H MCH 31.4 MCHC 31.6 L RDW Std Deviation 49.3 H RDW Coeff of Tessa 13.5 Plt Count 230 MPV 9.4 Immature Gran % (Auto) 1.000 H Neut % (Auto) 87.3 H Lymph % (Auto) 4.4 L Travis % (Auto) 6.7 Eos % (Auto) 0.4 Baso % (Auto) 0.2 Absolute Neuts (auto) 14.8 H Absolute Lymphs (auto) 0.75 L Nucleated RBC % 0 Sodium 133 Potassium 5.4 H Chloride 102 Carbon Dioxide 19.0 L Anion Gap 12 BUN 50 H Creatinine 2.04 H Estim Creat Clear Calc 24.23 L Est GFR (MDRD) Non-Af 24 L BUN/Creatinine Ratio 24.5 H Glucose 232 H Hemoglobin A1c 6.4 H Lactic Acid < 1.0 Calcium 8.6 Total Bilirubin 0.40 AST 55 H ALT 30 Alkaline Phosphatase 132 H Troponin T High Sens 40 H Troponin T Hi Sens 2 Hr 39 H Troponin T Hi Sens 4Hr NT pro BNP II 5405 H Total Protein 7.1 Albumin 3.3 L Globulin 3.9 Albumin/Globulin Ratio 0.8 L Procalcitonin Urine Color Yellow Urine Clarity Clear Urine pH 6.0 Ur Specific [place] 1.015 Urine Protein 100 H Urine Glucose (UA) Normal Urine Ketones Negative Urine Occult Blood 10 H Urine Nitrite Negative Urine Bilirubin Negative Urine Urobilinogen 1 H Ur Leukocyte Esterase 25 H Urine RBC 0 SEEN Urine WBC 0 SEEN Ur Squamous Epith Cells 0 SEEN Urine Bacteria 0 SEEN Urine Mucus 0 SEEN 07/22/25 16:33 WBC RBC Hgb Hct MCV MCH MCHC RDW Std Deviation RDW Coeff of Tessa Plt Count MPV Immature Gran % (Auto) Neut % (Auto) Lymph % (Auto) Travis % (Auto) Eos % (Auto) Baso % (Auto) Absolute Neuts (auto) Absolute Lymphs (auto) Nucleated RBC % Sodium Potassium Chloride Carbon Dioxide Anion Gap BUN Creatinine Estim Creat Clear Calc Est GFR (MDRD) Non-Af BUN/Creatinine Ratio Glucose Hemoglobin A1c Lactic Acid Calcium Total Bilirubin AST ALT Alkaline Phosphatase Troponin T High Sens Troponin T Hi Sens 2 Hr Troponin T Hi Sens 4Hr 38 H NT pro BNP II Total Protein Albumin Globulin Albumin/Globulin Ratio Procalcitonin 0.68 H Urine Color Urine Clarity Urine pH Ur Specific [place] Urine Protein Urine Glucose (UA) Urine Ketones Urine Occult Blood Urine Nitrite Urine Bilirubin Urine Urobilinogen Ur Leukocyte Esterase Urine RBC Urine WBC Ur Squamous Epith Cells Urine Bacteria Urine Mucus ABG Data ABG results: ABG 07/22/25 07/22/25 12:43 13:27 Specimen Type SARAH ART Sample Site L Radial R Brach pH 7.18 L* 7.31 L Bicarbonate Actual 21.7 L 20.0 L Total CO2 24 21 Base Excess -7 L -6 L O2 Saturation 83 L 95 O2 % 45.0 40.0 ABG pCO2 58.7 H 39.6 ABG pO2 60 L 82 Miranda Test Positive O2 Delivery Device BiPAP BiPAP Vent Mode Not entered Not entered Crit Call To/Read Back Yes Blood Gas Notified Whom DR. RAYMOND Clinical Comments 15 6 15 6 Radiography Chest X-Ray - ED: 2 View, Read by ED Physician and Left Effusion Diagnostic Testing: Clinical Impression(s) from Imaging Studies Chest X-Ray 07/22/25 12:17 IMPRESSION: Findings in the mid and lower right lung suggesting possible pneumonia, with possible underlying fibrosis/scarring. Follow-up PA and lateral chest exam is recommended. Scarring versus small effusion the in the lateral left lung base. Tortuous calcific aortic atherosclerosis. Reading Location: [facility] Chest CTA 07/22/25 14:28 IMPRESSION: Cardiomegaly and bilateral pleural effusions may be suggestive of CHF. Airspaceopacities in the lower lungs may represent atelectasis or pneumonia. Dilated esophagus with ingested material consistent with gastroesophageal reflux. Follow-up with outpatient barium swallow can be helpful for further evaluation. No evidence of pulmonary embolism. Reading Location: [id number] Soft Tissue Neck CT 07/22/25 14:28 IMPRESSION: 1. No acute or active inflammatory process identified in the neck. 2. No neck mass or cervical lymphadenopathy. 3. Fluid and air-filled dilatation of the visualized esophagus, may reflect achalasia. 4. Mild-moderate biapical pulmonary emphysema. 8 mm nodule in the left upper lobe. Multiple nonspecific enlarged upper mediastinal lymph nodes; see separate CT thorax report. 5. Multiple small subcentimeter thyroid nodules/cysts. Reading Location: [id number] Discharge Plan Disposition Disposition: Acute Care [facility] Discharge Date/Time: 07/22/25 18:31 What to do if you have Problems For any increased pain, shortness of breath, bleeding, nausea or vomiting, chestpain, or any unexpected problems, contact your Primary Care Provider. Call [facility] ([phone]) or report to the closest Emergency Room. Call 911 if necessary. 10/11/25 0716 <Electronically signed by Dulce Maria Raymond MD> Cosigner Signature (if applicable): CC: LILI TAYLOR ~ Signed [facility] Work Phone: 1(911) 532-996110-10-2025 Radiology Diagnostic study [facility]08-11-2025 Note* Exam Date Time Procedure Performing Provider Status 05/23/25 11:38 AM BD Bone Density DEXA Axial Skeleton MEGAN RAINEY MD; Auth (Verified) [id number] ORIGINAL EXAMINATION: BONE DENSITOMETRY 05/23/2025 11:40 am TECHNIQUE: A bone density dual x-ray absorptiometry (DEXA) scan was performed of the axial (e.g. hips, spine) and/or appendicular (e.g. radius) skeleton as appropriate. COMPARISON: None. HISTORY: Reason for Exam: Screening for osteoporosis. FINDINGS: T Score Left Femoral Neck: -2.2 Left Femoral Neck: 0.604 (g/cm2) T Score Left Hip: -2.6 Left Hip: 0.623 (g/cm2) T Score Lumbar Spine: -0.9 Lumbar Spine: 0.953 (g/cm2) FRAX: 10 year fracture risk assessment is not reported as some T-scores are at or below -2.5. The BHOF f/k/a NOF recommends that FDA-approved medical therapies be considered in post-menopausal women and men age >/= 50 years with a: * Hip or vertebral fracture, or * T-score of /= 20% for major osteoporotic fractures or * >/= 3% for hip fractures All treatment decisions require clinical judgement and consideration of individual patient factors, including patient preferences, comorbidities, previous drug use, risk factors not captured in the FRAX registered model (e.g., frailty, falls, vitamin D deficiency, increased bone turnover, interval significant decline in bone density) and possible under- or over-estimation of fracture risk by FRAX. IMPRESSION: Osteoporosis. I have personally reviewed the images of this examination and agree with the resident's findings and interpretation. Interpreted by: Megan Rainey MD Preliminary Report By: Lamberto Gonsalves Electronically signed By Megan Rainey MD Dictated Date: 05/23/2025 1:19:45 PM Prelim Date: 05/23/2025 2:24:13 PM Sign Date: 05/23/2025 2:24:13 PM Ordering Provider: TAYLOR TAYLOR [facility]10-18-2023 Discharge summary Author Antoni Argueta [facility] July 30, 2023 1:15pm Note Date/Time July 30, 2023 1 :11pm [facility] Medical Records Department [address] [place] [address] Instructions for Home/Discharge Instructions 07/30/23 1311 MR#: [id number] Acct: [id number] Name: WING LIN Rep #:[id number] : 1945 [id number] From: Antoni luciano DO PCP: Dr. Danilo Oneill DO Status:ADM IN Discharge Instructions Diet Discharge Diet: No restrictions Activity Discharge Activity: Return to Normal Activity Weight Bearing Status: Full weight bearing Follow Up Care Please Follow Up With: Danilo Oneill DO When: 1 to 2 weeks Test Results: Test results from this visit will be discussed in further detail at your follow- up appointment, if applicable. Pending Tests Upon Discharge: None Discharge Plan Admission Admit Date/Time: 07/28/23 21:25 Attending Provider: Antoni Argueta Primary Care Provider: Danilo Oneill Consulting Providers: Kavin Mcclain Instructions Additional Instructions / Restrictions: Please take azithromycin 500 mg and prednisone 40 mg for 3 more days each for your pneumonia and COPD exacerbation. Continue all other home medications as previously prescribed. Follow-up with your primary care doctor in the next 1 to2 weeks. The palliative care office will call to schedule an appointment with you soon. Discharge Orders/Prescriptions Prescriptions: New azithromycin 500 mg tablet 500 mg PO DAILY 3 Days Qty: 3 0RF prednisone 20 mg tablet 40 mg PO DAILY 3 Days Qty: 6 0RF Continued bupropion HCl 150 MG tablet sustained-release 12 hr 150 mg PO BID Patient Comments: DEPRESSION lovastatin 40 MG tablet 40 mg PO QHS Patient Comments: REDUCES CHOLESTEROL venlafaxine 150 MG capsule,extended release 24hr 150 mg PO DAILY Patient Comments: MOOD cyanocobalamin (vitamin B-12) [Vitamin B-12] 1,000 MCG tablet 1,000 mg PO DAILY Patient Comments: VITAMIN SUPPLEMENT trazodone 150 MG tablet 150 mg PO QHS Patient Comments: SLEEP aspirin 81 MG tablet,chewable 81 mg PO DAILY@0800 Patient Comments: HEALTH MAINTENANCE montelukast 10 MG tablet 10 mg PO DAILY Patient Comments: ALLERGIES albuterol sulfate [Ventolin HFA] 1 INHALER inhaler 1 - 2 puff inhalation Q4H PRN PRN (Reason: Sob &/Or Wheezing) Qty: 1 0RF omeprazole 40 mg capsule,delayed release(DR/EC) 40 mg PO DAILY bisoprolol fumarate 5 mg tablet 5 mg PO DINNER ferrous sulfate [FeroSul] 325 mg (65 mg iron) tablet 325 mg PO DAILY Patient Comments: TAKE 1 TABLET EVERY DAY losartan 25 mg tablet 25 mg PO DAILY Patient Comments: Take 1 tablet every day by oral route for 30 days. pioglitazone 30 MG tablet 30 mg PO DAILY@0800 cholecalciferol (vitamin D3) 125 mcg (5,000 unit) capsule 125 mcg PO DAILY glimepiride 2 mg tablet 2 mg PO BID Patient Comments: TAKE 1 TABLET BY MOUTH TWICE DAILY oxycodone-acetaminophen 5-325 mg tablet 1 tab PO Q12H PRN (Reason: pain) Patient Comments: TAKE 1 TABLET BY MOUTH EVERY 12 HOURS NEEDED FOR PAIN FOR 30 DAYS Referrals / Follow Up: Danilo Oneill DO [Primary Care Provider] - Disposition Disposition (needs filled in before D/C Order can be placed): Home Health Service 07/30/23 1315<Electronically signed by Antoni Argueta DO>Antoni Argueta DO CC: Dr. Kavin Mcclain MD; Dr. Danilo Oneill DO ~ Signed [facility] Work Phone: 1(308) 686-950310-17-2023 Progress note Author Antoni [facility] July 29, 2023 5:38pm Note Date/Time July 29, 2023 5 :02pm [facility] Medical Records Department [address] [place] [address] Progress Note - Hospitalist 07/29/23 1655 MR#: [id number] Acct: [id number] Name: WING LIN Rep #:[id number] : 1945 78 From: Antoni luciano DO PCP: Dr. Danilo Oneill DO Status:ADM IN Location: [address] 1 Reason for Visit Reason for Visit: Diagnoses Sepsis, unspecified organism (07/28/23) Type 2 diabetes mellitus with hyperglycemia (07/28/23) Pneumonia, unspecified organism (07/28/23) Acute kidney failure, unspecified (07/28/23) Severe sepsis without septic shock (07/28/23) Subjective Subjective Patient seen at bedside this morning. Lying comfortably in bed, conversing normally, no acute distress. Satting in low 90s on 3 L nasal cannula, notably is on 3 L nasal cannula at home. She currently denies any shortness of breath at rest. Patient states that her breathing feels much improved after several breathing treatments overnight. She does report mild body aches. Denies any fevers or chills. Reports cough with green sputum production. Denies any chestpain. Denies any abdominal pain or discomfort. Answering all questions appropriately as morning. No other acute concerns. Objective Data Objective Data Vital Signs: Vital Signs Temp Pulse Resp BP Pulse Ox O2 Del Method O2 Flow Rate 98.0 F 99 17 134/74 H 94 Nasal Cannula 3 07/29/23 15:15 07/29/23 15:15 07/29/23 15:15 07/29/23 15:15 07/29/23 15:15 07/29/23 15:21 07/29/23 16:29 FiO2 94 07/29/23 15:21 Oxygen Flow Rate (L/min) 3 Oxygen Delivery Method Nasal Cannula Weight: 90.5 kg Body Mass Index (BMI) 31.2 Intake & Output: Intake and Output for Last 24 Hours 07/27/23 07/28/23 07/29/23 23:59 23:59 23:59 Intake Total 1305 / 1305 987.5 / 987.5 Output Total 200 / 200 Balance 1305 / 1305 787.5 / 787.5 Lab / Micro Data 07/29/23 05:29 07/29/23 05:29 Labs: Laboratory Results - last 24 hr 07/28/23 19:00: WBC 14.6 H, RBC 4.25, Hgb 12.7, Hct 42.4, MCV 99.8 H, MCH 29.9, MCHC 30.0 L, RDW Std Deviation 54.9 H, RDW Coeff of Tessa 14.9 H, Plt Count 354, MPV 10.3, Immature Gran % (Auto) 0.500, Neut % (Auto) 87.7 H, Lymph % (Auto) 4.7L, Travis % (Auto) 6.7, Eos % (Auto) 0.1, Baso % (Auto) 0.3, Absolute Neuts (auto)12.7 H, Absolute Lymphs (auto) 0.69 L, Nucleated RBC % 0, Sodium 130 L, Potassium 5.6 H, Chloride 98, Carbon Dioxide 21.0, Anion Gap 11, BUN 29 H, Creatinine 2.31 H, Estim Creat Clear Calc 19.09, Est GFR (MDRD) Af Amer 26 L, Est GFR (MDRD) Non-Af 22 L, BUN/Creatinine Ratio 12.6, Glucose 260 H, Calcium 8.5, Troponin I High Sens 23 07/28/23 19:22: POC Glucose 241 H 07/28/23 19:35: Urine Color Yellow, Urine Clarity Sl. Cloudy, Urine pH 5.0, Ur Specific [place] 1.020, Urine Protein 500 H, Urine Glucose (UA) Normal, Urine Ketones 5 H, Urine Occult Blood 50 H, Urine Nitrite Negative, Urine Bilirubin 1 H, Urine Urobilinogen 4 H, Ur Leukocyte Esterase 25 H, Urine RBC 0-5 SEEN, UrineWBC 0-5 SEEN, Ur Squamous Epith Cells 0 SEEN, Amorphous Sediment 1+, Urine Bacteria 0 SEEN, Urine Mucus 0 SEEN 07/28/23 19:53: Lactic Acid 2.0 07/28/23 23:44: POC Glucose 304 H 07/29/23 00:17: Lactic Acid 1.5 07/29/23 05:29: WBC 15.5 H, RBC 3.42 L, Hgb 10.4 L, Hct 33.8 L, MCV 98.8, MCH 30.4, MCHC 30.8 L, RDW Std Deviation 53.1 H, RDW Coeff of Tessa 14.6, Plt Count 243, MPV 10.2, Immature Gran % (Auto) 0.700, Neut % (Auto) 93.1 H, Lymph % (Auto) 2.8 L, Travis % (Auto) 3.3, Eos % (Auto) 0.0, Baso % (Auto) 0.1, Absolute Neuts (auto) 14.5 H, Absolute Lymphs (auto) 0.43 L, Nucleated RBC % 0, Sodium 133 L, Potassium 4.9, Chloride 103, Carbon Dioxide 23.0, Anion Gap 7, BUN 28 H, Creatinine 2.08 H, Estim Creat Clear Calc 22.03, Est GFR (MDRD) Af Amer 30 L, Est GFR (MDRD) Non-Af 25 L, BUN/Creatinine Ratio 13.5, Glucose 268 H, Calcium 7.6 L 07/29/23 06:12: POC Glucose 239 H 07/29/23 11:30: POC Glucose 310 H Micro: Microbiology 07/28/23 19:35 Urine Catheter - Catheter Legionella Antigen - Final 07/28/23 19:35 Urine Catheter - Catheter Streptococcus pneumoniae Antigen (M- Final 07/28/23 19:20 Nasal Secretion SARS-CoV-2 & FLU Antigen (Rapid) - Final ABG Data ABG results: ABG 07/28/23 20:16 Specimen Type ART Sample Site L Radial pH 7.40 Bicarbonate Actual 17.4 L Total CO2 18 Base Excess -7 L O2 Saturation 92 L ABG pCO2 28.4 L ABG pO2 61 L Miranda Test Positive O2 Delivery Device Cannula Vent Mode Not entered Radiography Diagnostic Testing: Radiology Impression Chest X-Ray 07/28/23 19:45 IMPRESSION: Diffuse interstitial prominence is again identified similar to the prior examination perhaps indicating interstitial edema and/or other chronic interstitial changes. Superimposed pneumonia cannot be excluded. Electronically Signed: Phong Giovani Franco, DO at 20:29 EDT , Physical Exam Const alert, oriented x3 and no apparent distress Constitutional Narrative: Elderly female, chronically ill-appearing, obese, laying comfortably in bed, conversing normally, no acute distress. General Appearance: cooperative and comfortable HEENT normocephalic, head/scalp atraumatic, hearing grossly normal bilaterally, nasal mucous membranes and turbinates normal and moist oral mucous membranes Eyes PERRL, EOMs intact bilaterally and conjunctivae normal Neck full ROM, no lymphadenopathy and supple Lymph Lymphatic: no lymphadenopathy noted Chest inspection of chest normal Resp Resp Narrative: Satting in low 90s on 3 L nasal cannula, no increased work of breathing noted. Mild wheezes noted bilaterally in upper airways. No crackles noted. Cardio regular rate, regular rhythm, no murmurs and peripheral pulses 2+ throughout GI normal to inspection, nondistended, normoactive bowel sounds, soft to palpation,non-tender and non-distended Back/Spine normal ROM Extremity normal to inspection, full ROM and no pedal edema Skin no rashes or lesions noted Psych mental status grossly normal Assessment & Plan Assessment/Plan (1) Acute exacerbation of chronic obstructive pulmonary disease: PLAN: Plan Patient is a 78 female with history of COPD on home 3 L nasal cannula, former smoker, CVA with no residual deficits, type 2 diabetes, hypertension and anxiety/depression who presented to [facility] ED on 07/28/2023 with significant hypoxia. 1. Acute on chronic hypoxic respiratory failure, acute exacerbation of COPD, community-acquired pneumonia with unknown organism, sepsis without shock Met sepsis criteria on admission with Tmax of 101.3 on presentation, RR maximum of 30, heart rate 1 3 to presentation, WBC count 14.6 K, creatinine greater than2 and lactic acid borderline at 2. Very likely secondary to community-acquired pneumonia in setting of known COPD. Chest x-ray on admit showed diffuse interstitial prominence, superimposed pneumonia cannot be excluded. [place] mid 60s on room air, had run out of her home oxygen. Significant wheezing on admission. Initiated on ceftriaxone, azithromycin, steroids, scheduled DuoNebs on admissionwith significant improvement, now satting in low 90s on home 3 L nasal cannula. COVID and flu negative. Urine antigens negative. ? Continue ceftriaxone, azithromycin, steroids, scheduled DuoNebs for now. Monitor CBC daily. Sputum culture and blood cultures pending. Continue home montelukast. 2. BENITO on CKD IIIb Presumed prerenal BENITO in setting of recent poor p.o. intake and mild hypokalemia. Creatinine 2.31 on admit, baseline creatinine around 1.7-1.8. Creatinine improved to 2.08 on 07/29. ? Monitor BMP daily. Treatment as above. 3. Chronic debility Patient lives at home with her spouse, who is blind at baseline. Patient has fairly good functional status at home, is able to drive herself places, manage no medications to get her own groceries. She also notably has plenty of help from her daughters and nephew. ? PT/OT/case management following. Patient has been to TCU in the past, family reporting they want patient to go home on discharge with [facility] home health care. Palliative care consult also placed per family request. Chronic medical conditions: ? Type 2 diabetes: On home glimepiride and pioglitazone. Sliding scale insulin while inpatient. ? Hypertension: Continue home bisoprolol, lisinopril held given BENITO as noted above, restart as able. ? Anxiety/depression: Continue home venlafaxine, bupropion, trazodone at night. ? History of CVA: Continue home aspirin and statin. DVT prophylaxis: Heparin subcu CODE STATUS: Full code, verified Expected disposition: Home with home health care, 1 to 2 days Total clinical time spent by myself addressing the patient's medical issues, reviewing all the data, and collaborating with patient's care team: 35 minutes. Charges/Coding Visit Charges Inpatient E&M: 11036 Subs Hosp L2 07/29/238 <Electronically signed by Antoni Argueta DO> Cosigner Signature (if applicable): CC: ~ Signed [facility] Work Phone: 1(673) 230-926710-17-2023 History and physical note Author Kavin Mcclain [facility] July 29, 2023 10:01am Note Date/Time July 28, 2023 9 :39pm [facility] Medical Records Department [address] [place] [id number] H&P Exam - Hospitalist 07/28/232137 MR#: [id number] Acct: [id number] Name: WING LIN Rep #:[id number] : 1945 78 From: Kavin Mcclain MD PCP: Dr. Danilo Oneill DO Status:ADM IN Location: [id number] HPI - General General Date of Admission: 07/28/23 Date of Service: 07/28/23 Chief Complaint: Confusion HPI Narrative WING LIN, is a 78 F significant history of COPD and diabetes mellitus whopresents to the emergency department with confusion. Patient was [place] with his [place]. [place] [place] but she did not go home. Shewas reported missing to the police. Patient was later found with a car parked [place] [employer] without her routine oxygen. When paramedics found her her oxygen saturation on room air was 66%. At baseline patient uses 3 L of nasal cannula oxygen. On presentation to the ED she was placed on 4 L. Reportedly patient was wheezing and she had a cough. Her temperature was 100.4. Patient was tachycardic. White count was elevated at 14.6. Potassium was 5.6 and she was in BENITO. Patient was given steroids by paramedics. Patient cannot confirm the above history except she stated that she was in the hospital because she has a lot of problems including her sugar. However upon prodding she admits that she has been coughing and she has a green sputum with her cough. Also she admits being short of breath. The emergency department chest x-ray showed infiltrates. [facility] Medical History Anxiety CKD (chronic kidney disease) COPD (chronic obstructive pulmonary disease) Depression Diabetes Diabetes mellitus Emphysema of lung Former smoker Hypertension Hypertension Stroke/cerebrovascular accident Home Medications aspirin 81 mg chewable tablet 81 mg PO DAILY@0800 Heart health 12/27/16 [History Last Taken 07/28/23] bupropion HCl 150 mg tablet,12 hr sustained-release 150 mg PO BID mental health 12/27/16 [History Last Taken 07/28/23] cyanocobalamin (vitamin B-12) 1,000 mcg tablet (Vitamin B-12) 1,000 mg PO DAILY supplement 12/27/16 [History Last Taken 07/28/23] lovastatin 40 mg tablet 40 mg PO QHS cholesterol 12/27/16 [History Last Taken 07/27/23] montelukast 10 mg tablet 10 mg PO DAILY allergies 12/27/16 [History Last Taken 07/28/23] trazodone 150 mg tablet 150 mg PO QHS insomnia 12/27/16 [History Last Taken 07/27/23] venlafaxine 150 mg capsule,extended release 24 hr 150 mg PO DAILY depression 12/27/16 [History Last Taken 07/28/23] albuterol sulfate 90 mcg/actuation aerosol inhaler (Ventolin HFA) 1 - 2 puff inhalation Q4H PRN PRN Sob &/Or Wheezing ##1 12/30/16 [Rx Last Taken 01/19/20] bisoprolol fumarate 5 mg tablet 5 mg PO DINNER blood pressure 04/19/21 [History Last Taken 07/27/23] ferrous sulfate 325 mg (65 mg iron) tablet (FeroSul) 325 mg PO DAILY supplement 04/19/21 [History Last Taken 07/28/23] omeprazole 40 mg capsule,delayed release 40 mg PO DAILY GERD 04/19/21 [History Last Taken 07/28/23] losartan 25 mg tablet 25 mg PO DAILY hypertension 01/26/22 [History Last Taken 07/28/23] pioglitazone 30 mg tablet 30 mg PO DAILY@0800 diabetes 01/26/22 [History Last Taken 07/28/23] cholecalciferol (vitamin D3) 125 mcg (5,000 unit) capsule 125 mcg PO DAILY Supplement 01/31/22 [History Last Taken 07/28/23] glimepiride 2 mg tablet 2 mg PO BID 07/28/23 [History Last Taken 07/28/23] oxycodone-acetaminophen 5 mg-325 mg tablet 1 tab PO Q12H PRN pain 07/28/23 [History Last Taken 07/28/23] Allergy/AdvReac Type Severity Reaction Status Date / Time No Known Allergies Allergy Verified 07/28/23 19:09 Family History Other Diabetes Heart disease Surgical History Status post open reduction with internal fixation (ORIF) of fracture of ankle Social History household members: spouse Smoking Status: Former smoker alcohol intake: never substance use type: does not use ROS ROS Narrative Pertinent positives and pertinent negatives as noted in HPI. All other systems were reviewed and are negative Vital Signs Vital Signs Vital Signs: 07/28/23 19:11 07/28/23 19:19 07/28/23 20:00 Temperature 101.3 F H 100.3 F H Temperature Source Temporal Temporal Pulse Rate 125 H 131 H Respiratory Rate 30 H 29 H Respiratory Effort Short of Breath Labored Accessory Muscle Use Respiratory Depth Shallow Respiratory Pattern Tachypnea Blood Pressure 189/93 H 172/105 H Blood Pressure Mean 125 127 Pulse Ox 86 90 Oxygen Delivery Method Nasal Cannula Nasal Cannula Nasal Cannula Oxygen Flow Rate (L/min) 3 3 4 07/28/23 20:10 07/28/23 20:10 07/28/23 20:10 Temperature Temperature Source Pulse Rate 130 H 131 H Respiratory Rate 26 H 26 H Respiratory Effort Respiratory Depth Respiratory Pattern Tachypnea Blood Pressure Blood Pressure Mean Pulse Ox 93 90 Oxygen Delivery Method Nasal Cannula Oxygen Flow Rate (L/min) 4 07/28/23 20:20 07/28/23 20:29 07/28/23 20:29 Temperature Temperature Source Pulse Rate 131 H 132 H Respiratory Rate 27 H 28 H Respiratory Effort Respiratory Depth Respiratory Pattern Tachypnea Blood Pressure Blood Pressure Mean Pulse Ox 92 96 Oxygen Delivery Method Nasal Cannula Oxygen Flow Rate (L/min) 4 07/28/23 20:30 07/28/23 20:40 07/28/23 20:50 Temperature Temperature Source Pulse Rate 130 H 132 H 131 H Respiratory Rate 24 H 21 H 22 H Respiratory Effort Respiratory Depth Respiratory Pattern Blood Pressure Blood Pressure Mean Pulse Ox 95 94 Oxygen Delivery Method Oxygen Flow Rate (L/min) 07/28/23 21:00 07/28/23 21:10 07/28/23 21:20 Temperature Temperature Source Pulse Rate Respiratory Rate Respiratory Effort Respiratory Depth Respiratory Pattern Blood Pressure 163/103 H Blood Pressure Mean 121 Pulse Ox 93 91 Oxygen Delivery Method Oxygen Flow Rate (L/min) Weight Weight: 91.8 kg Body Mass Index (BMI) 31.7 Physical Exam Narrative Physical exam: General: Well-nourished, well-developed. Head: Normocephalic, atraumatic, no tenderness Eyes: Vision is grossly intact. EOMI ENT, no trauma, moist mucous membranes, no rhinorrhea Neck: Nontender, No thyromegaly. CVS: Tachycardia S1-S2 present. No murmur, gallop or rub. Respiratory : Tachypnea; wheezing and rhonchi Abdomen: Soft, nontender, nondistended, normal bowel sounds, no masses : Deferred Back: Nontender, no CVA tenderness, no midline spinal tenderness, deformities, step-offs Extremities: Nontender full range of motion, no trauma Skin: Normal color, no trauma, abrasions Neuro: Alert, oriented, cranial nerves II through XII grossly intact. Psychiatry: Normal mood. Normal affect. Results Lab / Micro Data 07/29/23 05:29 07/29/23 05:29 Labs: Laboratory Results - last 24 hr 07/28/23 19:00: WBC 14.6 H, RBC 4.25, Hgb 12.7, Hct 42.4, MCV 99.8 H, MCH 29.9, MCHC 30.0 L, RDW Std Deviation 54.9 H, RDW Coeff of Tessa 14.9 H, Plt Count 354, MPV 10.3, Immature Gran % (Auto) 0.500, Neut % (Auto) 87.7 H, Lymph % (Auto) 4.7L, Travis % (Auto) 6.7, Eos % (Auto) 0.1, Baso % (Auto) 0.3, Absolute Neuts (auto)12.7 H, Absolute Lymphs (auto) 0.69 L, Nucleated RBC % 0, Sodium 130 L, Potassium 5.6 H, Chloride 98, Carbon Dioxide 21.0, Anion Gap 11, BUN 29 H, Creatinine 2.31 H, Estim Creat Clear Calc 19.09, Est GFR (MDRD) Af Amer 26 L, Est GFR (MDRD) Non-Af 22 L, BUN/Creatinine Ratio 12.6, Glucose 260 H, Calcium 8.5, Troponin I High Sens 23 07/28/23 19:22: POC Glucose 241 H 07/28/23 19:35: Urine Color Yellow, Urine Clarity Sl. Cloudy, Urine pH 5.0, Ur Specific [place] 1.020, Urine Protein 500 H, Urine Glucose (UA) Normal, Urine Ketones 5 H, Urine Occult Blood 50 H, Urine Nitrite Negative, Urine Bilirubin 1 H, Urine Urobilinogen 4 H, Ur Leukocyte Esterase 25 H, Urine RBC 0-5 SEEN, UrineWBC 0-5 SEEN, Ur Squamous Epith Cells 0 SEEN, Amorphous Sediment 1+, Urine Bacteria 0 SEEN, Urine Mucus 0 SEEN 07/28/23 19:53: Lactic Acid 2.0 Micro: Microbiology 07/28/23 19:20 Nasal Secretion SARS-CoV-2 & FLU Antigen (Rapid) - Final ABG Data ABG results: ABG 07/28/23 20:16 Specimen Type ART Sample Site L Radial pH 7.40 Bicarbonate Actual 17.4 L Total CO2 18 Base Excess -7 L O2 Saturation 92 L ABG pCO2 28.4 L ABG pO2 61 L Miranda Test Positive O2 Delivery Device Cannula Vent Mode Not entered Radiology Impression Chest X-Ray 07/28/23 19:45 IMPRESSION: Diffuse interstitial prominence is again identified similar to the prior examination perhaps indicating interstitial edema and/or other chronic interstitial changes. Superimposed pneumonia cannot be excluded. Electronically Signed: Phong Franco, DO at 20:29 EDT , Assessment & Plan Assessment/Plan (1) Sepsis: QUALIFIERS: Sepsis type: sepsis due to unspecified organism Sepsis acute organ dysfunction status: with acute organ dysfunction Severe sepsis acute organ dysfunction type: acute renal failure Acute renal failure type: unspecified Severe sepsis shock status: without septic shock Qualified Code(s): A41.9 - Sepsis, unspecified organism; R65.20 - Severe sepsis without septic shock; N17.9 - Acute kidney failure, unspecified (2) Community acquired pneumonia: QUALIFIERS: Laterality: unspecified laterality Qualified Code(s):J18.9 - Pneumonia, unspecified organism (3) Acute kidney injury: (4) Diabetes mellitus: QUALIFIERS: Diabetes mellitus type: type 2 Diabetes mellitus fdc insulin use: without termite exterminator use Diabetes mellitus complication status: with hyperglycemia Qualified Code(s): E11.65 - Type 2 diabetes mellitus with hyperglycemia PLAN: Plan Sepsis secondary to pneumonia The patient presented with sepsis due to (pneumonia) with acute sepsis related organ dysfunction as evidenced by (BENITO). SIRS criteria: Tmax of 101.3 on presentation Respiratory rate maximum of 30 Heart rate more than 90 (maximum of 132 on presentation) WBC more than 12,000 (white count of 14,600 on presentation) organ dysfunction: Creatinine more than 2 Lactic acid borderline at 2 Impression of chest x-ray by radiology: Diffuse interstitial prominence. Superimposed pneumonia cannot be excluded. Independent interpretation of chest x-ray by hospitalist: Agrees with radiology interpretation. Ceftriaxone and azithromycin started at the emergency department and continued. Blood culture x2 ordered at the emergency department, follow up. Streptococcus pneumoniae antigen and Legionella urine antigen ordered. SARS-CoV-2 and flu antigen ordered and returned negative. Acute COPD exacerbation Blood gas showed pH of 7.40. A PCO2 of 28.4; PO2 of 61 With tachycardia scheduled albuterol could not be ordered. Ipratropium nebulization scheduled.. Albuterol ordered. Give Solu-Medrol by squad. Solu-Medrol IV [id number] ordered. Mucinex ordered Chronic respiratory failure Mildly worsening as patient usually requires 3 L of oxygen but was requiring 4 L on presentation. BENITO CKD stage IIIb Creatinine presentation was 2.31. Baseline creatinine is around 1.8. Gentle IVhydration. Avoid nephrotoxins. Home losartan. 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 Diabetes mellitus with nephropathy Blood glucose not within goal. Glimepiride continued. Actos continued. Accu-Chek correction scale insulin ordered. Hypertension Blood pressure is not within goal Home blood pressure medication continued. Home losartan held for BENITO. Trend blood pressure and adjust blood pressure medications. DVT prophylaxis Subcutaneous heparin ordered. Time spent in the patient's overall evaluation,decision-making process, review of diagnostic data, adjustment of management, discussion with other providers, nursing and ancillary staff involved in patient's care documentation, 70 minutes. Charges/Coding Visit Charges Inpatient E&M: 69195 Init Hosp L3 07/29/23 1001 <Electronically signed by Kavin Mcclain MD> Cosigner Signature (if applicable): CC: Dr. Kavin Mcclain MD; Dr. Danilo Oneill, DO~ Signed [facility] Work Phone: [phone]) 614-986710-16-2023 Discharge summary Author Tacho Moffett [facility] July 28, 2023 9:41pm Note Date/Time July 28, 2023 7 :28pm [facility] Medical Records Department [address] [place] [address] Emergency Department Summary 07/28/23 MR#: [id number] Acct: [id number] Name: WING LIN Rep #:[id number] : 1945 78 From: Carlyn BEAN PCP: Dr. Danilo Oneill, Status:REG ER Location: ED HPI <GENEVA Dukes - Last Filed: 07/28/23 20:46> History of Present Illness Chief Complaint: Shortness of Breath Narrative Narrative: 78-year-old female with PMH of HTN, HLD, DM2, COPD on baseline 3 L O2, CVA, CKD was brought in for altered mental status. She was with her daughter yesterday and after leaving she was missing since 11 PM. [place] and was confused. She was brought in by EMS and was 66% on room air. She reports increased cough withsputum production this week. No fever or chills. No chest pain. She lives with her who is blind. Her family member is here providing history stating she seems more confused than usual. [facility] <GENEVA Dukes - Last Filed: 07/28/23 20:46> [facility] Medical History (Updated 07/28/23 @ 21:[address] Tacho Moffett MD) Anxiety CKD (chronic kidney disease) COPD (chronic obstructive pulmonary disease) Depression Diabetes Diabetes mellitus Emphysema of lung Former smoker Hypertension Hypertension Stroke/cerebrovascular accident Home Medications aspirin 81 mg chewable tablet 81 mg PO DAILY@0800 Heart health 12/27/16 [History Last Taken 07/28/23] bupropion HCl 150 mg tablet,12 hr sustained-release 150 mg PO BID mental health 12/27/16 [History Last Taken 07/28/23] cyanocobalamin (vitamin B-12) 1,000 mcg tablet (Vitamin B-12) 1,000 mg PO DAILY supplement 12/27/16 [History Last Taken 07/28/23] lovastatin 40 mg tablet 40 mg PO QHS cholesterol 12/27/16 [History Last Taken 07/27/23] montelukast 10 mg tablet 10 mg PO DAILY allergies 12/27/16 [History Last Taken 07/28/23] trazodone 150 mg tablet 150 mg PO QHS insomnia 12/27/16 [History Last Taken 07/27/23] venlafaxine 150 mg capsule,extended release 24 hr 150 mg PO DAILY depression 12/27/16 [History Last Taken 07/28/23] albuterol sulfate 90 mcg/actuation aerosol inhaler (Ventolin HFA) 1 - 2 puff inhalation Q4H PRN PRN Sob &/Or Wheezing ##1 12/30/16 [Rx Last Taken 01/19/20] bisoprolol fumarate 5 mg tablet 5 mg PO DINNER blood pressure 04/19/21 [History Last Taken 07/27/23] ferrous sulfate 325 mg (65 mg iron) tablet (FeroSul) 325 mg PO DAILY supplement 04/19/21 [History Last Taken 07/28/23] omeprazole 40 mg capsule,delayed release 40 mg PO DAILY GERD 04/19/21 [History Last Taken 07/28/23] losartan 25 mg tablet 25 mg PO DAILY hypertension 01/26/22 [History Last Taken 07/28/23] pioglitazone 30 mg tablet 30 mg PO DAILY@0800 diabetes 01/26/22 [History Last Taken 07/28/23] cholecalciferol (vitamin D3) 125 mcg (5,000 unit) capsule 125 mcg PO DAILY Supplement 01/31/22 [History Last Taken 07/28/23] glimepiride 2 mg tablet 2 mg PO BID 07/28/23 [History Last Taken 07/28/23] oxycodone-acetaminophen 5 mg-325 mg tablet 1 tab PO Q12H PRN pain 07/28/23 [History Last Taken 07/28/23] Allergy/AdvReac Type Severity Reaction Status Date / Time No Known Allergies Allergy Verified 07/28/23 19:09 Surgical History Status post open reduction with internal fixation (ORIF) of fracture of ankle Social History (Updated 01/31/22 @ 19:[address] Manoj Villatoro MD) household members: spouse Smoking Status: Former smoker alcohol intake: never substance use type: does not use ROS <GENEVA Dukes - Last Filed: 07/28/23 20:46> ROS ED ROS Narrative Constitutional: Negative for fever, chills, malaise. CVS: Negative for chest pain, syncope. Respiratory: Positive for shortness of breath, cough. GI: Negative for abdominal pain, nausea, vomiting, diarrhea. : Negative for dysuria. Neuro: Negative for headache. EXAM <GENEVA Dukes - Last Filed: 07/28/23 20:46> Physical Exam Narrative Exam Narrative: CONST: Patient sitting in no acute distress. EYES: Normal inspection. NECK: Normal inspection. RESP: Tachypneic around 30/minute, lung sounds diminished with faint wheeze. CVS: Rapid but regular rhythm, no murmur, no gallop. ABD: Soft and nontender, no guarding or rebound, nondistended. SKIN: Color normal, no rash, warm, dry, intact. EXTREMITIES: Normal appearance, no pedal edema. NEURO: Alert to self, place, and age. Did not know year. Face symmetric, moving all extremities. PSYCH: Normal affect. Const Vital Signs: 07/28/23 19:11 07/28/23 19:19 07/28/23 20:00 Temperature 101.3 F H 100.3 F H Temperature Source Temporal Temporal Pulse Rate 125 H 131 H Respiratory Rate 30 H 29 H Respiratory Effort Short of Breath Labored Accessory Muscle Use Respiratory Depth Shallow Respiratory Pattern Tachypnea Blood Pressure 189/93 H 172/105 H Blood Pressure Mean 125 127 Pulse Ox 86 90 Oxygen Delivery Method Nasal Cannula Nasal Cannula Nasal Cannula Oxygen Flow Rate (L/min) 3 3 4 07/28/23 20:10 07/28/23 20:10 07/28/23 20:10 Temperature Temperature Source Pulse Rate 130 H 131 H Respiratory Rate 26 H 26 H Respiratory Effort Respiratory Depth Respiratory Pattern Tachypnea Blood Pressure Blood Pressure Mean Pulse Ox 93 90 Oxygen Delivery Method Nasal Cannula Oxygen Flow Rate (L/min) 4 07/28/23 20:20 07/28/23 20:29 07/28/23 20:29 Temperature Temperature Source Pulse Rate 131 H 132 H Respiratory Rate 27 H 28 H Respiratory Effort Respiratory Depth Respiratory Pattern Tachypnea Blood Pressure Blood Pressure Mean Pulse Ox 92 96 Oxygen Delivery Method Nasal Cannula Oxygen Flow Rate (L/min) 4 07/28/23 20:30 07/28/23 20:40 07/28/23 20:50 Temperature Temperature Source Pulse Rate 130 H 132 H 131 H Respiratory Rate 24 H 21 H 22 H Respiratory Effort Respiratory Depth Respiratory Pattern Blood Pressure Blood Pressure Mean Pulse Ox 95 94 Oxygen Delivery Method Oxygen Flow Rate (L/min) 07/28/23 21:00 07/28/23 21:10 07/28/23 21:20 Temperature Temperature Source Pulse Rate Respiratory Rate Respiratory Effort Respiratory Depth Respiratory Pattern Blood Pressure 163/103 H Blood Pressure Mean 121 Pulse Ox 93 91 Oxygen Delivery Method Oxygen Flow Rate (L/min) <Dr. Tacho Moffett MD - Last Filed: 07/28/23 21:41> Physical Exam Const Vital Signs: 07/28/23 19:11 07/28/23 19:19 07/28/23 20:00 Temperature 101.3 F H 100.3 F H Temperature Source Temporal Temporal Pulse Rate 125 H 131 H Respiratory Rate 30 H 29 H Respiratory Effort Short of Breath Labored Accessory Muscle Use Respiratory Depth Shallow Respiratory Pattern Tachypnea Blood Pressure 189/93 H 172/105 H Blood Pressure Mean 125 127 Pulse Ox 86 90 Oxygen Delivery Method Nasal Cannula Nasal Cannula Nasal Cannula Oxygen Flow Rate (L/min) 3 3 4 07/28/23 20:10 07/28/23 20:10 07/28/23 20:10 Temperature Temperature Source Pulse Rate 130 H 131 H Respiratory Rate 26 H 26 H Respiratory Effort Respiratory Depth Respiratory Pattern Tachypnea Blood Pressure Blood Pressure Mean Pulse Ox 93 90 Oxygen Delivery Method Nasal Cannula Oxygen Flow Rate (L/min) 4 07/28/23 20:20 07/28/23 20:29 07/28/23 20:29 Temperature Temperature Source Pulse Rate 131 H 132 H Respiratory Rate 27 H 28 H Respiratory Effort Respiratory Depth Respiratory Pattern Tachypnea Blood Pressure Blood Pressure Mean Pulse Ox 92 96 Oxygen Delivery Method Nasal Cannula Oxygen Flow Rate (L/min) 4 07/28/23 20:30 07/28/23 20:40 07/28/23 20:50 Temperature Temperature Source Pulse Rate 130 H 132 H 131 H Respiratory Rate 24 H 21 H 22 H Respiratory Effort Respiratory Depth Respiratory Pattern Blood Pressure Blood Pressure Mean Pulse Ox 95 94 Oxygen Delivery Method Oxygen Flow Rate (L/min) 07/28/23 21:00 07/28/23 21:10 07/28/23 21:20 Temperature Temperature Source Pulse Rate Respiratory Rate Respiratory Effort Respiratory Depth Respiratory Pattern Blood Pressure 163/103 H Blood Pressure Mean 121 Pulse Ox 93 91 Oxygen Delivery Method Oxygen Flow Rate (L/min) MDM <GENEVA Dukes - Last Filed: 07/28/23 20:46> [facility] Narrative Medical decision making narrative: History gathered from: Patient, family member and EMS Patient has had a cough for about a week. Has history of COPD on chronic 3 L O2. She was missing for about 24 hours and found off her chronic oxygen around 66% on room air. She was brought in by EMS and initially was tachycardic and tachypneic. Temporal scanner showed temp of 101.3, oral temp 100.3. She is tachycardic but regular. Lung sounds diminished with a faint wheezing which increased after aerosols concerning for COPD exacerbation. Sepsis protocol was initiated. She already received Solu- Medrol from EMS and was given IV fluids and Tylenol in the ED. Labs show white count of 14.6, hemoglobin 12.7, sodium 130, potassium 5.6, creatinine of 2.31 higher than previous (1.7). She was given IV Rocephin and Zithromax to cover community- acquired pneumonia. CXR noteddiffuse interstitial prominence similar to previous but cannot exclude pneumonia. ED provider review of 1 view chest x-ray showed cardiomegaly, concern for bilateral infiltrates and elevation of left hemidiaphragm. With fever and cough and negative COVID/flu swabs she was treated with antibiotics. After she had been on 3 L O2 blood gas was obtained shows normal pH of 7.396, CO2 20.4, O2 61, bicarb 17.4. She is now more awake and alert and is on 4 L O2. Case will be discussed with the hospitalist for admission. Differential: pneumonia, COPD exacerbation, viral illness, lack of oxygen causing altered mental status Consults: Hospitalist I have personally performed a face to face assessment of the patient and have reviewed the LIV Note. I performed a substantive portion of the visit including all aspects of the following. My stallworth findings include: History: History is from patient and family. Evidently the patient has been coughing for a few days to a week. Not really bringing up much sputum. She does have a history of COPD but this is worse than normal. No known fevers although she has 1 here. She was evidently camping with the family. She left the campsite about 11:00 yesterday morning. They finally found her tonight. She is on 3 L of oxygen and did not have her oxygen. She was very confused but she is much more awake now. Saturations are down in the 60% range. Patient does admit that she just feels bad. She denies pain to me though. Exam: Patient is now awake and alert. But she is tachycardic. Mildly tachypneic. But saturations are about 8890% on oxygen now. She does have diffuse expiratory wheezing and some coarse rhonchi bilaterally. Abdomen is nontender. Medical Decision Making: She has clinically improved since she was found. She is evidently much more alert now. Patient CBC shows high white count of 14.6. Hemoglobin platelets are normal. Patient's electrolytes show some mildly high potassium. Creatinine is elevated over baseline. Likely as she has not drank since yesterday. Glucose is also high. Patient's troponin is normal at 23. Patient's lactate is pending. If patient's urine is cloudy but only 0-5 white cells. My independent interpretation of her single AP chest x-ray shows bilateral infiltrate. Relatively dense infiltrate on the left with elevated hemidiaphragm. X-rays final reading is pending. Patient will be given breathing treatments, steroids, antibiotics and fluids. She will need to be admitted. Lab Data Labs: Laboratory Results - last 24 hr 07/28/23 07/28/23 07/28/23 19:00 19:22 19:35 WBC 14.6 H RBC 4.25 Hgb 12.7 Hct 42.4 MCV 99.8 H MCH 29.9 MCHC 30.0 L RDW Std Deviation 54.9 H RDW Coeff of Tessa 14.9 H Plt Count 354 MPV 10.3 Immature Gran % (Auto) 0.500 Neut % (Auto) 87.7 H Lymph % (Auto) 4.7 L Travis % (Auto) 6.7 Eos % (Auto) 0.1 Baso % (Auto) 0.3 Absolute Neuts (auto) 12.7 H Absolute Lymphs (auto) 0.69 L Nucleated RBC % 0 Sodium 130 L Potassium 5.6 H Chloride 98 Carbon Dioxide 21.0 Anion Gap 11 BUN 29 H Creatinine 2.31 H Estim Creat Clear Calc 19.09 Est GFR (MDRD) Af Amer 26 L Est GFR (MDRD) Non-Af 22 L BUN/Creatinine Ratio 12.6 Glucose 260 H Lactic Acid Calcium 8.5 Troponin I High Sens 23 Urine Color Yellow Urine Clarity Sl. Cloudy Urine pH 5.0 Ur Specific [place] 1.020 Urine Protein 500 H Urine Glucose (UA) Normal Urine Ketones 5 H Urine Occult Blood 50 H Urine Nitrite Negative Urine Bilirubin 1 H Urine Urobilinogen 4 H Ur Leukocyte Esterase 25 H Urine RBC 0-5 SEEN Urine WBC 0-5 SEEN Ur Squamous Epith Cells 0 SEEN Amorphous Sediment 1+ Urine Bacteria 0 SEEN Urine Mucus 0 SEEN POC Glucose 241 H 07/28/23 19:53 WBC RBC Hgb Hct MCV MCH MCHC RDW Std Deviation RDW Coeff of Tessa Plt Count MPV Immature Gran % (Auto) Neut % (Auto) Lymph % (Auto) Travis % (Auto) Eos % (Auto) Baso % (Auto) Absolute Neuts (auto) Absolute Lymphs (auto) Nucleated RBC % Sodium Potassium Chloride Carbon Dioxide Anion Gap BUN Creatinine Estim Creat Clear Calc Est GFR (MDRD) Af Amer Est GFR (MDRD) Non-Af BUN/Creatinine Ratio Glucose Lactic Acid 2.0 Calcium Troponin I High Sens Urine Color Urine Clarity Urine pH Ur Specific [place] Urine Protein Urine Glucose (UA) Urine Ketones Urine Occult Blood Urine Nitrite Urine Bilirubin Urine Urobilinogen Ur Leukocyte Esterase Urine RBC Urine WBC Ur Squamous Epith Cells Amorphous Sediment Urine Bacteria Urine Mucus POC Glucose ABG Data ABG results: ABG 07/28/23 20:16 Specimen Type ART Sample Site L Radial pH 7.40 Bicarbonate Actual 17.4 L Total CO2 18 Base Excess -7 L O2 Saturation 92 L ABG pCO2 28.4 L ABG pO2 61 L Miranda Test Positive O2 Delivery Device Cannula Vent Mode Not entered Radiography Diagnostic Testing: Clinical Impression(s) from Imaging Studies Chest X-Ray 07/28/23 19:45 IMPRESSION: Diffuse interstitial prominence is again identified similar to the prior examination perhaps indicating interstitial edema and/or other chronic interstitial changes. Superimposed pneumonia cannot be excluded. Electronically Signed: Phong Franco, at 20:29 EDT , <Dr. Tacho Moffett MD - Last Filed: 07/28/23 21:41> [facility] Narrative Medical decision making narrative: I have personally performed a face to face assessment of the patient and have reviewed the LIV Note. I performed a substantive portion of the visit including all aspects of the following. My stallworth findings include: History: History is from patient and family. Evidently the patient has been coughing for a few days to a week. Not really bringing up much sputum. She does have a history of COPD but this is worse than normal. No known fevers although she has 1 here. She was evidently camping with the family. She left the campsite about 11:00 yesterday morning. They finally found her tonight. She is on 3 L of oxygen and did not have her oxygen. She was very confused but she is much more awake now. Saturations are down in the 60% range. Patient does admit that she just feels bad. She denies pain to me though. Exam: Patient is now awake and alert. But she is tachycardic. Mildly tachypneic. But saturations are about 8890% on oxygen now. She does have diffuse expiratory wheezing and some coarse rhonchi bilaterally. Abdomen is nontender. Medical Decision Making: She has clinically improved since she was found. She is evidently much more alert now. Patient CBC shows high white count of 14.6. Hemoglobin platelets are normal. Patient's electrolytes show some mildly high potassium. Creatinine is elevated over baseline. Likely as she has not drank since yesterday. Glucose is also high. Patient's troponin is normal at 23. Patient's lactate is pending. If patient's urine is cloudy but only 0-5 white cells. My independent interpretation of her single AP chest x-ray shows bilateral infiltrate. Relatively dense infiltrate on the left with elevated hemidiaphragm. X-rays final reading is pending. Patient will be given breathing treatments, steroids, antibiotics and fluids. She will need to be admitted. Lab Data Attestation: I reviewed the patient's lab results. Labs: Laboratory Results - last 24 hr 07/28/23 07/28/23 07/28/23 19:00 19:22 19:35 WBC 14.6 H RBC 4.25 Hgb 12.7 Hct 42.4 MCV 99.8 H MCH 29.9 MCHC 30.0 L RDW Std Deviation 54.9 H RDW Coeff of Tessa 14.9 H Plt Count 354 MPV 10.3 Immature Gran % (Auto) 0.500 Neut % (Auto) 87.7 H Lymph % (Auto) 4.7 L Travis % (Auto) 6.7 Eos % (Auto) 0.1 Baso % (Auto) 0.3 Absolute Neuts (auto) 12.7 H Absolute Lymphs (auto) 0.69 L Nucleated RBC % 0 Sodium 130 L Potassium 5.6 H Chloride 98 Carbon Dioxide 21.0 Anion Gap 11 BUN 29 H Creatinine 2.31 H Estim Creat Clear Calc 19.09 Est GFR (MDRD) Af Amer 26 L Est GFR (MDRD) Non-Af 22 L BUN/Creatinine Ratio 12.6 Glucose 260 H Lactic Acid Calcium 8.5 Troponin I High Sens 23 Urine Color Yellow Urine Clarity Sl. Cloudy Urine pH 5.0 Ur Specific [place] 1.020 Urine Protein 500 H Urine Glucose (UA) Normal Urine Ketones 5 H Urine Occult Blood 50 H Urine Nitrite Negative Urine Bilirubin 1 H Urine Urobilinogen 4 H Ur Leukocyte Esterase 25 H Urine RBC 0-5 SEEN Urine WBC 0-5 SEEN Ur Squamous Epith Cells 0 SEEN Amorphous Sediment 1+ Urine Bacteria 0 SEEN Urine Mucus 0 SEEN POC Glucose 241 H 07/28/23 19:53 WBC RBC Hgb Hct MCV MCH MCHC RDW Std Deviation RDW Coeff of Tessa Plt Count MPV Immature Gran % (Auto) Neut % (Auto) Lymph % (Auto) Travis % (Auto) Eos % (Auto) Baso % (Auto) Absolute Neuts (auto) Absolute Lymphs (auto) Nucleated RBC % Sodium Potassium Chloride Carbon Dioxide Anion Gap BUN Creatinine Estim Creat Clear Calc Est GFR (MDRD) Af Amer Est GFR (MDRD) Non-Af BUN/Creatinine Ratio Glucose Lactic Acid 2.0 Calcium Troponin I High Sens Urine Color Urine Clarity Urine pH Ur Specific [place] Urine Protein Urine Glucose (UA) Urine Ketones Urine Occult Blood Urine Nitrite Urine Bilirubin Urine Urobilinogen Ur Leukocyte Esterase Urine RBC Urine WBC Ur Squamous Epith Cells Amorphous Sediment Urine Bacteria Urine Mucus POC Glucose ABG Data ABG results: ABG 07/28/23 20:16 Specimen Type ART Sample Site L Radial pH 7.40 Bicarbonate Actual 17.4 L Total CO2 18 Base Excess -7 L O2 Saturation 92 L ABG pCO2 28.4 L ABG pO2 61 L Miranda Test Positive O2 Delivery Device Cannula Vent Mode Not entered Radiography Diagnostic Testing: Clinical Impression(s) from Imaging Studies Chest X-Ray 07/28/23 19:45 IMPRESSION: Diffuse interstitial prominence is again identified similar to the prior examination perhaps indicating interstitial edema and/or other chronic interstitial changes. Superimposed pneumonia cannot be excluded. Electronically Signed: Phong Franco DO at 20:29 EDT , Discharge Plan Triage Chief Complaint: Shortness of Breath ED Midlevel Provider: Carlyn Salmon ED Provider: Listerman,Peter Dx/Rx/DC Orders Clinical Impression: Acute kidney injury, Community acquired pneumonia, Acute exacerbation of chronic obstructive pulmonary disease, Hypoxia Prescriptions: No Action bupropion HCl 150 MG tablet sustained-release 12 hr 150 mg PO BID Patient Comments: DEPRESSION lovastatin 40 MG tablet 40 mg PO QHS Patient Comments: REDUCES CHOLESTEROL venlafaxine 150 MG capsule,extended release 24hr 150 mg PO DAILY Patient Comments: MOOD cyanocobalamin (vitamin B-12) [Vitamin B-12] 1,000 MCG tablet 1,000 mg PO DAILY Patient Comments: VITAMIN SUPPLEMENT trazodone 150 MG tablet 150 mg PO QHS Patient Comments: SLEEP aspirin 81 MG tablet,chewable 81 mg PO DAILY@0800 Patient Comments: HEALTH MAINTENANCE montelukast 10 MG tablet 10 mg PO DAILY Patient Comments: ALLERGIES albuterol sulfate [Ventolin HFA] 1 INHALER inhaler 1 - 2 puff inhalation Q4H PRN PRN (Reason: Sob &/Or Wheezing) Qty: 1 0RF omeprazole 40 mg capsule,delayed release(DR/EC) 40 mg PO DAILY bisoprolol fumarate 5 mg tablet 5 mg PO DINNER ferrous sulfate [FeroSul] 325 mg (65 mg iron) tablet 325 mg PO DAILY Patient Comments: TAKE 1 TABLET EVERY DAY losartan 25 mg tablet 25 mg PO DAILY Patient Comments: Take 1 tablet every day by oral route for 30 days. pioglitazone 30 MG tablet 30 mg PO DAILY@0800 cholecalciferol (vitamin D3) 125 mcg (5,000 unit) capsule 125 mcg PO DAILY glimepiride 2 mg tablet 2 mg PO BID Patient Comments: TAKE 1 TABLET BY MOUTH TWICE DAILY oxycodone-acetaminophen 5-325 mg tablet 1 tab PO Q12H PRN (Reason: pain) Patient Comments: TAKE 1 TABLET BY MOUTH EVERY 12 HOURS NEEDED FOR PAIN FOR 30 DAYS Primary Care Provider: Danilo Oneill Referrals: Danilo Oneill, [Primary Care Provider] - What to do if you have Problems For any increased pain, shortness of breath, bleeding, nausea or vomiting, chestpain, or any unexpected problems, contact your Primary Care Provider. Call [facility] ([phone]) or report to the closest Emergency Room. Call 911 if necessary. 07/28/232045 <Electronically signed by Carlyn BEAN> Cosigner Signature (if applicable): 10/16/23 2141 <Electronically signed by Tacho Moffett MD> CC: Dr. Danilo Oneill, DO ~ Signed [facility] Work Phone: [phone] Discharge summary Author Tacho Moffett [facility] July 28, 2023 9:41pm Note Date/Time July 28, 2023 7 :28pm [facility] Medical Records Department [address] [place] [address] Emergency Department Summary 07/28/23 MR#: [id number] Acct: [id number] Name: WING LIN Rep #:[id number] : [id number] 78 From: Carlyn BEAN PCP: Dr. Danilo Oneill DO Status:REG ER Location: ED HPI <GENEVA Dukes - Last Filed: 07/28/23 20:46> History of Present Illness Chief Complaint: Shortness of Breath Narrative Narrative: 78-year-old female with PMH of HTN, HLD, DM2, COPD on baseline 3 L O2, CVA, CKD was brought in for altered mental status. She was with her daughter yesterday and after leaving she was missing since 11 PM. [place] and was confused. She was brought in by EMS and was 66% on room air. She reports increased cough withsputum production this week. No fever or chills. No chest pain. She lives with her who is blind. Her family member is here providing history stating she seems more confused than usual. PFSH <GENEVA Dukes - Last Filed: 07/28/23 20:46> PFSH Medical History (Updated 07/28/23 @ 21:[address] Tacho Moffett MD) Anxiety CKD (chronic kidney disease) COPD (chronic obstructive pulmonary disease) Depression Diabetes Diabetes mellitus Emphysema of lung Former smoker Hypertension Hypertension Stroke/cerebrovascular accident Home Medications aspirin 81 mg chewable tablet 81 mg PO DAILY@0800 Heart health 12/27/16 [History Last Taken 07/28/23] bupropion HCl 150 mg tablet,12 hr sustained-release 150 mg PO BID mental health 12/27/16 [History Last Taken 07/28/23] cyanocobalamin (vitamin B-12) 1,000 mcg tablet (Vitamin B-12) 1,000 mg PO DAILY supplement 12/27/16 [History Last Taken 07/28/23] lovastatin 40 mg tablet 40 mg PO QHS cholesterol 12/27/16 [History Last Taken 07/27/23] montelukast 10 mg tablet 10 mg PO DAILY allergies 12/27/16 [History Last Taken 07/28/23] trazodone 150 mg tablet 150 mg PO QHS insomnia 12/27/16 [History Last Taken 07/27/23] venlafaxine 150 mg capsule,extended release 24 hr 150 mg PO DAILY depression 12/27/16 [History Last Taken 07/28/23] albuterol sulfate 90 mcg/actuation aerosol inhaler (Ventolin HFA) 1 - 2 puff inhalation Q4H PRN PRN Sob &/Or Wheezing ##1 12/30/16 [Rx Last Taken 01/19/20] bisoprolol fumarate 5 mg tablet 5 mg PO DINNER blood pressure 04/19/21 [History Last Taken 07/27/23] ferrous sulfate 325 mg (65 mg iron) tablet (FeroSul) 325 mg PO DAILY supplement 04/19/21 [History Last Taken 07/28/23] omeprazole 40 mg capsule,delayed release 40 mg PO DAILY GERD 04/19/21 [History Last Taken 07/28/23] losartan 25 mg tablet 25 mg PO DAILY hypertension 01/26/22 [History Last Taken 07/28/23] pioglitazone 30 mg tablet 30 mg PO DAILY@0800 diabetes 01/26/22 [History Last Taken 07/28/23] cholecalciferol (vitamin D3) 125 mcg (5,000 unit) capsule 125 mcg PO DAILY Supplement 01/31/22 [History Last Taken 07/28/23] glimepiride 2 mg tablet 2 mg PO BID 07/28/23 [History Last Taken 07/28/23] oxycodone-acetaminophen 5 mg-325 mg tablet 1 tab PO Q12H PRN pain 07/28/23 [History Last Taken 07/28/23] Allergy/AdvReac Type Severity Reaction Status Date / Time No Known Allergies Allergy Verified 07/28/23 19:09 Surgical History Status post open reduction with internal fixation (ORIF) of fracture of ankle Social History (Updated 01/31/22 @ 19:[address] Manoj Villatoro MD) household members: spouse Smoking Status: Former smoker alcohol intake: never substance use type: does not use ROS <GENEVA Dukes - Last Filed: 07/28/23 20:46> ROS ED ROS Narrative Constitutional: Negative for fever, chills, malaise. CVS: Negative for chest pain, syncope. Respiratory: Positive for shortness of breath, cough. GI: Negative for abdominal pain, nausea, vomiting, diarrhea. : Negative for dysuria. Neuro: Negative for headache. EXAM <GENEVA Dukes - Last Filed: 07/28/23 20:46> Physical Exam Narrative Exam Narrative: CONST: Patient sitting in no acute distress. EYES: Normal inspection. NECK: Normal inspection. RESP: Tachypneic around 30/minute, lung sounds diminished with faint wheeze. CVS: Rapid but regular rhythm, no murmur, no gallop. ABD: Soft and nontender, no guarding or rebound, nondistended. SKIN: Color normal, no rash, warm, dry, intact. EXTREMITIES: Normal appearance, no pedal edema. NEURO: Alert to self, place, and age. Did not know year. Face symmetric, moving all extremities. PSYCH: Normal affect. Const Vital Signs: 07/28/23 19:11 07/28/23 19:19 07/28/23 20:00 Temperature 101.3 F H 100.3 F H Temperature Source Temporal Temporal Pulse Rate 125 H 131 H Respiratory Rate 30 H 29 H Respiratory Effort Short of Breath Labored Accessory Muscle Use Respiratory Depth Shallow Respiratory Pattern Tachypnea Blood Pressure 189/93 H 172/105 H Blood Pressure Mean 125 127 Pulse Ox 86 90 Oxygen Delivery Method Nasal Cannula Nasal Cannula Nasal Cannula Oxygen Flow Rate (L/min) 3 3 4 07/28/23 20:10 07/28/23 20:10 07/28/23 20:10 Temperature Temperature Source Pulse Rate 130 H 131 H Respiratory Rate 26 H 26 H Respiratory Effort Respiratory Depth Respiratory Pattern Tachypnea Blood Pressure Blood Pressure Mean Pulse Ox 93 90 Oxygen Delivery Method Nasal Cannula Oxygen Flow Rate (L/min) 4 07/28/23 20:20 07/28/23 20:29 07/28/23 20:29 Temperature Temperature Source Pulse Rate 131 H 132 H Respiratory Rate 27 H 28 H Respiratory Effort Respiratory Depth Respiratory Pattern Tachypnea Blood Pressure Blood Pressure Mean Pulse Ox 92 96 Oxygen Delivery Method Nasal Cannula Oxygen Flow Rate (L/min) 4 07/28/23 20:30 07/28/23 20:40 07/28/23 20:50 Temperature Temperature Source Pulse Rate 130 H 132 H 131 H Respiratory Rate 24 H 21 H 22 H Respiratory Effort Respiratory Depth Respiratory Pattern Blood Pressure Blood Pressure Mean Pulse Ox 95 94 Oxygen Delivery Method Oxygen Flow Rate (L/min) 07/28/23 21:00 07/28/23 21:10 07/28/23 21:20 Temperature Temperature Source Pulse Rate Respiratory Rate Respiratory Effort Respiratory Depth Respiratory Pattern Blood Pressure 163/103 H Blood Pressure Mean 121 Pulse Ox 93 91 Oxygen Delivery Method Oxygen Flow Rate (L/min) <Dr. Tacho Moffett MD - Last Filed: 07/28/23 21:41> Physical Exam Const Vital Signs: 07/28/23 19:11 07/28/23 19:19 07/28/23 20:00 Temperature 101.3 F H 100.3 F H Temperature Source Temporal Temporal Pulse Rate 125 H 131 H Respiratory Rate 30 H 29 H Respiratory Effort Short of Breath Labored Accessory Muscle Use Respiratory Depth Shallow Respiratory Pattern Tachypnea Blood Pressure 189/93 H 172/105 H Blood Pressure Mean 125 127 Pulse Ox 86 90 Oxygen Delivery Method Nasal Cannula Nasal Cannula Nasal Cannula Oxygen Flow Rate (L/min) 3 3 4 07/28/23 20:10 07/28/23 20:10 07/28/23 20:10 Temperature Temperature Source Pulse Rate 130 H 131 H Respiratory Rate 26 H 26 H Respiratory Effort Respiratory Depth Respiratory Pattern Tachypnea Blood Pressure Blood Pressure Mean Pulse Ox 93 90 Oxygen Delivery Method Nasal Cannula Oxygen Flow Rate (L/min) 4 07/28/23 20:20 07/28/23 20:29 07/28/23 20:29 Temperature Temperature Source Pulse Rate 131 H 132 H Respiratory Rate 27 H 28 H Respiratory Effort Respiratory Depth Respiratory Pattern Tachypnea Blood Pressure Blood Pressure Mean Pulse Ox 92 96 Oxygen Delivery Method Nasal Cannula Oxygen Flow Rate (L/min) 4 07/28/23 20:30 07/28/23 20:40 07/28/23 20:50 Temperature Temperature Source Pulse Rate 130 H 132 H 131 H Respiratory Rate 24 H 21 H 22 H Respiratory Effort Respiratory Depth Respiratory Pattern Blood Pressure Blood Pressure Mean Pulse Ox 95 94 Oxygen Delivery Method Oxygen Flow Rate (L/min) 07/28/23 21:00 07/28/23 21:10 07/28/23 21:20 Temperature Temperature Source Pulse Rate Respiratory Rate Respiratory Effort Respiratory Depth Respiratory Pattern Blood Pressure 163/103 H Blood Pressure Mean 121 Pulse Ox 93 91 Oxygen Delivery Method Oxygen Flow Rate (L/min) [facility] <GENEVA Dukes - Last Filed: 07/28/23 20:46> [facility] Narrative Medical decision making narrative: History gathered from: Patient, family member and EMS Patient has had a cough for about a week. Has history of COPD on chronic 3 L O2. She was missing for about 24 hours and found off her chronic oxygen around 66% on room air. She was brought in by EMS and initially was tachycardic and tachypneic. Temporal scanner showed temp of 101.3, oral temp 100.3. She is tachycardic but regular. Lung sounds diminished with a faint wheezing which increased after aerosols concerning for COPD exacerbation. Sepsis protocol was initiated. She already received Solu- Medrol from EMS and was given IV fluids and Tylenol in the ED. Labs show white count of 14.6, hemoglobin 12.7, sodium 130, potassium 5.6, creatinine of 2.31 higher than previous (1.7). She was given IV Rocephin and Zithromax to cover community- acquired pneumonia. CXR noteddiffuse interstitial prominence similar to previous but cannot exclude pneumonia. ED provider review of 1 view chest x-ray showed cardiomegaly, concern for bilateral infiltrates and elevation of left hemidiaphragm. With fever and cough and negative COVID/flu swabs she was treated with antibiotics. After she had been on 3 L O2 blood gas was obtained shows normal pH of 7.396, CO2 20.4, O2 61, bicarb 17.4. She is now more awake and alert and is on 4 L O2. Case will be discussed with the hospitalist for admission. Differential: pneumonia, COPD exacerbation, viral illness, lack of oxygen causing altered mental status Consults: Hospitalist I have personally performed a face to face assessment of the patient and have reviewed the LIV Note. I performed a substantive portion of the visit including all aspects of the following. My stallworth findings include: History: History is from patient and family. Evidently the patient has been coughing for a few days to a week. Not really bringing up much sputum. She does have a history of COPD but this is worse than normal. No known fevers although she has 1 here. She was evidently camping with the family. She left the campsite about 11:00 yesterday morning. They finally found her tonight. She is on 3 L of oxygen and did not have her oxygen. She was very confused but she is much more awake now. Saturations are down in the 60% range. Patient does admit that she just feels bad. She denies pain to me though. Exam: Patient is now awake and alert. But she is tachycardic. Mildly tachypneic. But saturations are about 8890% on oxygen now. She does have diffuse expiratory wheezing and some coarse rhonchi bilaterally. Abdomen is nontender. Medical Decision Making: She has clinically improved since she was found. She is evidently much more alert now. Patient CBC shows high white count of 14.6. Hemoglobin platelets are normal. Patient's electrolytes show some mildly high potassium. Creatinine is elevated over baseline. Likely as she has not drank since yesterday. Glucose is also high. Patient's troponin is normal at 23. Patient's lactate is pending. If patient's urine is cloudy but only 0-5 white cells. My independent interpretation of her single AP chest x-ray shows bilateral infiltrate. Relatively dense infiltrate on the left with elevated hemidiaphragm. X-rays final reading is pending. Patient will be given breathing treatments, steroids, antibiotics and fluids. She will need to be admitted. Lab Data Labs: Laboratory Results - last 24 hr 07/28/23 07/28/23 07/28/23 19:00 19:22 19:35 WBC 14.6 H RBC 4.25 Hgb 12.7 Hct 42.4 MCV 99.8 H MCH 29.9 MCHC 30.0 L RDW Std Deviation 54.9 H RDW Coeff of Tessa 14.9 H Plt Count 354 MPV 10.3 Immature Gran % (Auto) 0.500 Neut % (Auto) 87.7 H Lymph % (Auto) 4.7 L Travis % (Auto) 6.7 Eos % (Auto) 0.1 Baso % (Auto) 0.3 Absolute Neuts (auto) 12.7 H Absolute Lymphs (auto) 0.69 L Nucleated RBC % 0 Sodium 130 L Potassium 5.6 H Chloride 98 Carbon Dioxide 21.0 Anion Gap 11 BUN 29 H Creatinine 2.31 H Estim Creat Clear Calc 19.09 Est GFR (MDRD) Af Amer 26 L Est GFR (MDRD) Non-Af 22 L BUN/Creatinine Ratio 12.6 Glucose 260 H Lactic Acid Calcium 8.5 Troponin I High Sens 23 Urine Color Yellow Urine Clarity Sl. Cloudy Urine pH 5.0 Ur Specific [place] 1.020 Urine Protein 500 H Urine Glucose (UA) Normal Urine Ketones 5 H Urine Occult Blood 50 H Urine Nitrite Negative Urine Bilirubin 1 H Urine Urobilinogen 4 H Ur Leukocyte Esterase 25 H Urine RBC 0-5 SEEN Urine WBC 0-5 SEEN Ur Squamous Epith Cells 0 SEEN Amorphous Sediment 1+ Urine Bacteria 0 SEEN Urine Mucus 0 SEEN POC Glucose 241 H 07/28/23 19:53 WBC RBC Hgb Hct MCV MCH MCHC RDW Std Deviation RDW Coeff of Tessa Plt Count MPV Immature Gran % (Auto) Neut % (Auto) Lymph % (Auto) Travis % (Auto) Eos % (Auto) Baso % (Auto) Absolute Neuts (auto) Absolute Lymphs (auto) Nucleated RBC % Sodium Potassium Chloride Carbon Dioxide Anion Gap BUN Creatinine Estim Creat Clear Calc Est GFR (MDRD) Af Amer Est GFR (MDRD) Non-Af BUN/Creatinine Ratio Glucose Lactic Acid 2.0 Calcium Troponin I High Sens Urine Color Urine Clarity Urine pH Ur Specific [place] Urine Protein Urine Glucose (UA) Urine Ketones Urine Occult Blood Urine Nitrite Urine Bilirubin Urine Urobilinogen Ur Leukocyte Esterase Urine RBC Urine WBC Ur Squamous Epith Cells Amorphous Sediment Urine Bacteria Urine Mucus POC Glucose ABG Data ABG results: ABG 07/28/23 20:16 Specimen Type ART Sample Site L Radial pH 7.40 Bicarbonate Actual 17.4 L Total CO2 18 Base Excess -7 L O2 Saturation 92 L ABG pCO2 28.4 L ABG pO2 61 L Miranda Test Positive O2 Delivery Device Cannula Vent Mode Not entered Radiography Diagnostic Testing: Clinical Impression(s) from Imaging Studies Chest X-Ray 07/28/23 19:45 IMPRESSION: Diffuse interstitial prominence is again identified similar to the prior examination perhaps indicating interstitial edema and/or other chronic interstitial changes. Superimposed pneumonia cannot be excluded. Electronically Signed: Phong Franco, at 20:29 EDT , <Dr. Tacho Moffett MD - Last Filed: 07/28/23 21:41> [facility] MDM Narrative Medical decision making narrative: I have personally performed a face to face assessment of the patient and have reviewed the LIV Note. I performed a substantive portion of the visit including all aspects of the following. My stallworth findings include: History: History is from patient and family. Evidently the patient has been coughing for a few days to a week. Not really bringing up much sputum. She does have a history of COPD but this is worse than normal. No known fevers although she has 1 here. She was evidently camping with the family. She left the campsite about 11:00 yesterday morning. They finally found her tonight. She is on 3 L of oxygen and did not have her oxygen. She was very confused but she is much more awake now. Saturations are down in the 60% range. Patient does admit that she just feels bad. She denies pain to me though. Exam: Patient is now awake and alert. But she is tachycardic. Mildly tachypneic. But saturations are about 8890% on oxygen now. She does have diffuse expiratory wheezing and some coarse rhonchi bilaterally. Abdomen is nontender. Medical Decision Making: She has clinically improved since she was found. She is evidently much more alert now. Patient CBC shows high white count of 14.6. Hemoglobin platelets are normal. Patient's electrolytes show some mildly high potassium. Creatinine is elevated over baseline. Likely as she has not drank since yesterday. Glucose is also high. Patient's troponin is normal at 23. Patient's lactate is pending. If patient's urine is cloudy but only 0-5 white cells. My independent interpretation of her single AP chest x-ray shows bilateral infiltrate. Relatively dense infiltrate on the left with elevated hemidiaphragm. X-rays final reading is pending. Patient will be given breathing treatments, steroids, antibiotics and fluids. She will need to be admitted. Lab Data Attestation: I reviewed the patient's lab results. Labs: Laboratory Results - last 24 hr 07/28/23 07/28/23 07/28/23 19:00 19:22 19:35 WBC 14.6 H RBC 4.25 Hgb 12.7 Hct 42.4 MCV 99.8 H MCH 29.9 MCHC 30.0 L RDW Std Deviation 54.9 H RDW Coeff of Tessa 14.9 H Plt Count 354 MPV 10.3 Immature Gran % (Auto) 0.500 Neut % (Auto) 87.7 H Lymph % (Auto) 4.7 L Travis % (Auto) 6.7 Eos % (Auto) 0.1 Baso % (Auto) 0.3 Absolute Neuts (auto) 12.7 H Absolute Lymphs (auto) 0.69 L Nucleated RBC % 0 Sodium 130 L Potassium 5.6 H Chloride 98 Carbon Dioxide 21.0 Anion Gap 11 BUN 29 H Creatinine 2.31 H Estim Creat Clear Calc 19.09 Est GFR (MDRD) Af Amer 26 L Est GFR (MDRD) Non-Af 22 L BUN/Creatinine Ratio 12.6 Glucose 260 H Lactic Acid Calcium 8.5 Troponin I High Sens 23 Urine Color Yellow Urine Clarity Sl. Cloudy Urine pH 5.0 Ur Specific [place] 1.020 Urine Protein 500 H Urine Glucose (UA) Normal Urine Ketones 5 H Urine Occult Blood 50 H Urine Nitrite Negative Urine Bilirubin 1 H Urine Urobilinogen 4 H Ur Leukocyte Esterase 25 H Urine RBC 0-5 SEEN Urine WBC 0-5 SEEN Ur Squamous Epith Cells 0 SEEN Amorphous Sediment 1+ Urine Bacteria 0 SEEN Urine Mucus 0 SEEN POC Glucose 241 H 07/28/23 19:53 WBC RBC Hgb Hct MCV MCH MCHC RDW Std Deviation RDW Coeff of Tessa Plt Count MPV Immature Gran % (Auto) Neut % (Auto) Lymph % (Auto) Travis % (Auto) Eos % (Auto) Baso % (Auto) Absolute Neuts (auto) Absolute Lymphs (auto) Nucleated RBC % Sodium Potassium Chloride Carbon Dioxide Anion Gap BUN Creatinine Estim Creat Clear Calc Est GFR (MDRD) Af Amer Est GFR (MDRD) Non-Af BUN/Creatinine Ratio Glucose Lactic Acid 2.0 Calcium Troponin I High Sens Urine Color Urine Clarity Urine pH Ur Specific [place] Urine Protein Urine Glucose (UA) Urine Ketones Urine Occult Blood Urine Nitrite Urine Bilirubin Urine Urobilinogen Ur Leukocyte Esterase Urine RBC Urine WBC Ur Squamous Epith Cells Amorphous Sediment Urine Bacteria Urine Mucus POC Glucose ABG Data ABG results: ABG 07/28/23 20:16 Specimen Type ART Sample Site L Radial pH 7.40 Bicarbonate Actual 17.4 L Total CO2 18 Base Excess -7 L O2 Saturation 92 L ABG pCO2 28.4 L ABG pO2 61 L Miranda Test Positive O2 Delivery Device Cannula Vent Mode Not entered Radiography Diagnostic Testing: Clinical Impression(s) from Imaging Studies Chest X-Ray 07/28/23 19:45 IMPRESSION: Diffuse interstitial prominence is again identified similar to the prior examination perhaps indicating interstitial edema and/or other chronic interstitial changes. Superimposed pneumonia cannot be excluded. Electronically Signed: Phong Franco DO at 20:29 EDT , Discharge Plan Triage Chief Complaint: Shortness of Breath ED Midlevel Provider: Carlyn Salmon ED Provider: Tacho Moffett Dx/Rx/DC Orders Clinical Impression: Acute kidney injury, Community acquired pneumonia, Acute exacerbation of chronic obstructive pulmonary disease, Hypoxia Prescriptions: No Action bupropion HCl 150 MG tablet sustained-release 12 hr 150 mg PO BID Patient Comments: DEPRESSION lovastatin 40 MG tablet 40 mg PO QHS Patient Comments: REDUCES CHOLESTEROL venlafaxine 150 MG capsule,extended release 24hr 150 mg PO DAILY Patient Comments: MOOD cyanocobalamin (vitamin B-12) [Vitamin B-12] 1,000 MCG tablet 1,000 mg PO DAILY Patient Comments: VITAMIN SUPPLEMENT trazodone 150 MG tablet 150 mg PO QHS Patient Comments: SLEEP aspirin 81 MG tablet,chewable 81 mg PO DAILY@0800 Patient Comments: HEALTH MAINTENANCE montelukast 10 MG tablet 10 mg PO DAILY Patient Comments: ALLERGIES albuterol sulfate [Ventolin HFA] 1 INHALER inhaler 1 - 2 puff inhalation Q4H PRN PRN (Reason: Sob &/Or Wheezing) Qty: 1 0RF omeprazole 40 mg capsule,delayed release(DR/EC) 40 mg PO DAILY bisoprolol fumarate 5 mg tablet 5 mg PO DINNER ferrous sulfate [FeroSul] 325 mg (65 mg iron) tablet 325 mg PO DAILY Patient Comments: TAKE 1 TABLET EVERY DAY losartan 25 mg tablet 25 mg PO DAILY Patient Comments: Take 1 tablet every day by oral route for 30 days. pioglitazone 30 MG tablet 30 mg PO DAILY@0800 cholecalciferol (vitamin D3) 125 mcg (5,000 unit) capsule 125 mcg PO DAILY glimepiride 2 mg tablet 2 mg PO BID Patient Comments: TAKE 1 TABLET BY MOUTH TWICE DAILY oxycodone-acetaminophen 5-325 mg tablet 1 tab PO Q12H PRN (Reason: pain) Patient Comments: TAKE 1 TABLET BY MOUTH EVERY 12 HOURS NEEDED FOR PAIN FOR 30 DAYS Primary Care Provider: Danilo Oneill Referrals: Danilo Oneill DO [Primary Care Provider] - What to do if you have Problems For any increased pain, shortness of breath, bleeding, nausea or vomiting, chestpain, or any unexpected problems, contact your Primary Care Provider. Call [facility] ([phone]) or report to the closest Emergency Room. Call 911 if necessary. 07/28/232045 <Electronically signed by Carlyn BEAN> Cosigner Signature (if applicable): 07/28/232140 <Electronically signed by Tacho Moffett MD> CC: Dr. Danilo Oneill DO ~ Signed [facility] Work Phone: Consult note Author Kamron Friend [facility] Note Date/Time July 25, 2025 8 :34am [facility] Medical Records Department [address] [place] [address] Consultation - GI 07/22/251935 MR#: [id number] Acct: [id number] Name: WING LIN Rep #:[id number] : [id number] From: Kamron Nguyen DO PCP: LILI STOREY Status:ADM IN Location: ICU ICU03-1 HPI Consult Data Date of Consult: 07/22/25 HPI Narrative Reason for Consultation: Abnormal CT scan HPI Narrative: WING LIN, is aa 80-year-old female with a past medical history of chronicobstructive pulmonary disease with emphysema requiring 4 L of oxygen at home, congestive heart failure , chronic kidney disease , and chronic hyponatremia. She presents to the emergency department with increased respiratory distress and shortness of breath that began a few days ago. Her symptoms are preceded by upper respiratory infection ( symptoms, including a cough, fatigue, and sore throat. She has a history of gastroesophageal reflux and was evaluated by gastroenterology due to a dilated esophagus with retained material, raising suspicion for achalasia causing aspiration pneumonia. The patient reports worsening cough and increasing difficulty breathing that are not relieved by herusual home oxygen.? I took care of her last year when she presented with painfuljaundice and was discovered to have choledocholithiasis and underwent an ERCP with stone removal. * Chest X-ray (CXR):?Infiltrates consistent with pneumonia, often in dependent lung segments, diffuse infiltrates, or signs of heart failure exacerbation . * CT Chest:?More sensitive than CXR for infiltrates and can reveal dilated esophagus. [facility] Medical History (Updated 07/22/25 @ 19:[address] Lundy Friend, DO) Wears glasses Wears dentures Diabetes Walker as ambulation aid Arthritis Hepatitis High cholesterol Easy bruising Back pain Syncope Dietary restriction History of hiatal hernia Gastric reflux On home oxygen therapy Shortness of breath on exertion Leg cramps History of pain when walking History of edema History of irregular heartbeat CKD (chronic kidney disease), stage IV Chronic hypoxic respiratory failure, on home oxygen therapy Anxiety and depression Chronic obstructive pulmonary disease Iron deficiency anemia Hyperlipidemia Diabetes mellitus Former smoker Stroke/cerebrovascular accident Hypertension Emphysema of lung CKD stage 4 due to type 1 diabetes mellitus Home Medications ?Medication ?Instructions ?Recorded ?Last Taken ?Type aspirin 81 mg chewable tablet 81 mg PO DAILY@0800 Hear t health 12/27/16 07/28/23 History bupropion HCl 150 mg tablet,12 hr 150 mg PO BID mental health 12/27/16 07/28/23 History sustained-release cyanocobalamin (vitamin B-12) 1,000 mg PO DAILY supple ment 12/27/16 07/28/23 History 1,000 mcg tablet (Vitamin B-12) lovastatin 40 mg tablet 40 mg PO QHS cholesterol 07/27/23 History montelukast 10 mg tablet 10 mg PO DAILY allergies 07/28/23 History trazodone 150 mg tablet 150 mg PO QHS insomnia 12/2707/27/23 History venlafaxine 150 mg 150 mg PO DAILY depression 0 12/27/16 07/28/23 History capsule,extended release 24 hr albuterol sulfate 90 mcg/actuation 1 - 2 puff inhalati on Q4H PRN PRN 12/30/16 01/19/20 Rx aerosol inhaler (Ventolin HFA) Sob &/Or Wheezing ##1 bisoprolol fumarate 5 mg tablet 5 mg PO DINNER blood p ressure 04/19/21 07/27/23 History pioglitazone 30 mg tablet 30 mg PO DAILY@0800 diabetes 01/26/22 07/28/23 History oxycodone-acetaminophen 5 mg-325 1 tab PO Q12H PRN diogo k pain 07/28/23 07/28/23 History mg tablet aripiprazole 10 mg tablet 10 mg PO DAILY 02/29/24 Unkn own History esomeprazole magnesium 40 mg 40 mg PO DAILY 02/29/24 U nknown History capsule,delayed release losartan 50 mg tablet 50 mg PO DAILY #30 tabs 02/11 12/06 Unknown Rx glimepiride 2 mg tablet 2 mg PO BID 05/11/24 Unknown History Allergy/AdvReac Type Severity Reaction Status Date / Time No Known Allergies Allergy Verified 07/22/25 13:19 Family History Mother Diabetes Heart disease Hypertension Father Diabetes Heart disease Hypertension Surgical History (Updated 05/25/24 @ 10:05 by Destiney Vazquez) History of ERCP Hx laparoscopic cholecystectomy Status post open reduction with internal fixation (ORIF) of fracture of ankle Social History household members: spouse Smoking Status: Former smoker how long ago did patient quit smoking: Smoked 2 ppd until ~ 10 years ago since teen until quit. alcohol intake: never substance use type: does not use ROS Constitutional Constitutional: Reports fatigue and weakness; Denies chills or fever(s) Eyes Eyes: Denies change in vision Cardiovascular Cardiovascular: Denies chest pain Respiratory/Chest Respiratory/Chest: Reports cough, shortness of breath at rest and wheezing; Denies productive cough or shortness of breath with exertion Gastrointestinal Gastrointestinal: Denies abdominal pain, nausea or vomiting Genitourinary Genitourinary: Denies dysuria Musculoskeletal Musculoskeletal: Denies arthralgias or myalgias Neurologic Neurologic: Denies dizziness, focal weakness, headache(s), numbness or tingling Physical Exam Const alert, no apparent distress and average body habitus Constitutional Narrative: breathing on BiPAP, General Appearance: cooperative and comfortable HEENT normocephalic, head/scalp atraumatic, hearing grossly normal bilaterally, nasal mucous membranes and turbinates normal and moist oral mucous membranes HEENT Narrative: BiPAP in place. Eyes PERRL, EOMs intact bilaterally and conjunctivae normal Neck Neck Narrative: Bruising noted on the right side of the neck presumed from recent fall. Chest inspection of chest normal Resp normal respiratory effort and no use of accessory muscles Resp Narrative: Breathing comfortably on BiPAP. Mild wheezing noted in upper airways bilaterally and crackles noted in low to mid lung zones bilaterally. Cardio no murmurs and peripheral pulses 2+ throughout Cardio Narrative: Tachycardic, regular rhythm. GI normal to inspection, nondistended, normoactive bowel sounds, soft to palpation,non-tender and non-distended Back/Spine normal ROM Extremity full ROM Extremity Narrative: +1-2 lower extremity nonpitting edema noted. Skin no rashes or lesions noted Neuro moves all extremities and no focal motor deficits Neuro Narrative: Generalized lower extremity weakness noted. Psych Psych Narrative: Flat affect. Lab / Micro Data 07/22/25 12:32 07/22/25 12:32 Labs: Laboratory Results - last 24 hr 07/22/25 12:32: WBC 17.0 H, RBC 2.90 L, Hgb 9.1 L, Hct 28.8 L, MCV 99.3 H, MCH 31.4, MCHC 31.6 L, RDW Std Deviation 49.3 H, RDW Coeff of Tessa 13.5, Plt Count 230, MPV 9.4, Immature Gran % (Auto) 1.000 H, Neut % (Auto) 87.3 H, Lymph % (Auto) 4.4 L, Travis % (Auto) 6.7, Eos % (Auto) 0.4, Baso % (Auto) 0.2, Absolute Neuts (auto) 14.8 H, Absolute Lymphs (auto) 0.75 L, Nucleated RBC % 0, Sodium 133, Potassium 5.4 H, Chloride 102, Carbon Dioxide 19.0 L, Anion Gap 12, BUN 50 H, Creatinine 2.04 H, Estim Creat Clear Calc 24.23 L, Est GFR (MDRD) Non-Af 24 L, BUN/Creatinine Ratio 24.5 H, Glucose 232 H, Lactic Acid < 1.0, Calcium 8.6, Total Bilirubin 0.40, AST 55 H, ALT 30, Alkaline Phosphatase 132 H, Troponin T High Sens 40 H, NT pro BNP II 5405 H, Total Protein 7.1, Albumin 3.3 L, Globulin3.9, Albumin/Globulin Ratio 0.8 L 07/22/25 13:09: Urine Color Yellow, Urine Clarity Clear, Urine pH 6.0, Ur Specific [place] 1.015, Urine Protein 100 H, Urine Glucose (UA) Normal, Urine Ketones Negative, Urine Occult Blood 10 H, Urine Nitrite Negative, Urine Bilirubin Negative, Urine Urobilinogen 1 H, Ur Leukocyte Esterase 25 H, Urine RBC 0 SEEN, Urine WBC 0 SEEN, Ur Squamous Epith Cells 0 SEEN, Urine Bacteria 0 SEEN, Urine Mucus 0 SEEN 07/22/25 15:23: Troponin T Hi Sens 2 Hr 39 H 07/22/25 16:33: Troponin T Hi Sens 4Hr 38 H, Procalcitonin 0.68 H Micro: Microbiology 07/22/25 12:30 Mucosa - Nose SARS-CoV-2, Influenza & RSV (PCR) - Final ABG Data ABG results: ABG 07/22/25 07/22/25 12:43 13:27 Specimen Type SARAH ART Sample Site L Radial R Brach pH 7.18 L* 7.31 L Bicarbonate Actual 21.7 L 20.0 L Total CO2 24 21 Base Excess -7 L -6 L O2 Saturation 83 L 95 O2 % 45.0 40.0 ABG pCO2 58.7 H 39.6 ABG pO2 60 L 82 Miranda Test Positive O2 Delivery Device BiPAP BiPAP Vent Mode Not entered Not entered Crit Call To/Read Back Yes Blood Gas Notified Whom DR. RAYMOND Clinical Comments 15 6 15 6 Imaging Radiology Impression Chest X-Ray 07/22/25 12:17 IMPRESSION: Findings in the mid and lower right lung suggesting possible pneumonia, with possible underlying fibrosis/scarring. Follow-up PA and lateral chest exam is recommended. Scarring versus small effusion the in the lateral left lung base. Tortuous calcific aortic atherosclerosis. Reading Location: [facility] Chest CTA 07/22/25 14:28 IMPRESSION: Cardiomegaly and bilateral pleural effusions may be suggestive of CHF. Airspaceopacities in the lower lungs may represent atelectasis or pneumonia. Dilated esophagus with ingested material consistent with gastroesophageal reflux. Follow-up with outpatient barium swallow can be helpful for further evaluation. No evidence of pulmonary embolism. Reading Location: [id number] Soft Tissue Neck CT 07/22/25 14:28 IMPRESSION: 1. No acute or active inflammatory process identified in the neck. 2. No neck mass or cervical lymphadenopathy. 3. Fluid and air-filled dilatation of the visualized esophagus, may reflect achalasia. 4. Mild-moderate biapical pulmonary emphysema. 8 mm nodule in the left upper lobe. Multiple nonspecific enlarged upper mediastinal lymph nodes; see separate CT thorax report. 5. Multiple small subcentimeter thyroid nodules/cysts. Reading Location: [id number] Assessment & Plan Assessment/Plan (1) Gastroesophageal reflux disease: (2) Stroke: (3) Dysphagia: PLAN: 80-year-old female presents with acute respiratory distress likely from multifactorial causes, most prominently?aspiration pneumonia?superimposed on a?COPD exacerbation?and potentially?acute decompensated heart failure. The patient's underlying GERD and suspected achalasia are significant risk factors for recurrent aspiration, which can be triggered by URI symptoms or impaired consciousness. The chronic hyponatremia is likely secondary to her advanced CHF and CKD, and is associated with increased morbidity.? Differential Diagnoses: * Aspiration Pneumonia:?High clinical suspicion based on history of GERD, suspected achalasia, and recent URI. The dilated esophagus with retained material is a stallworth finding. * COPD Exacerbation:?Worsening respiratory symptoms on a background of severe COPD is a common presentation. * Congestive Heart Failure Exacerbation:?Respiratory distress in a patient with a history of CHF raises concern for fluid overload, though the URI and aspiration history point away from this as the sole cause. * Acute Bacterial Pneumonia (non-aspiration):?A standard community-acquired pneumonia could be the cause of her URI-like symptoms and respiratory distress. * Pulmonary Embolism (PE):?Must be considered in the differential for any patient with acute respiratory distress, particularly with comorbidities.? Plan * Respiratory Support:?Continuous oxygen therapy, possibly escalating to non- invasive ventilation (BiPAP/CPAP) or intubation if needed. * Antibiotics:?Empiric antibiotics covering aspiration pneumonia. * Monitoring:?Continuous cardiac and oxygen saturation monitoring. * Positioning:?Place patient in a semi-recumbent position to minimize further aspiration risk. Diagnostics: * CXR/CT:?Obtain imaging to confirm pneumonia, evaluate for CHF, and assess esophageal dilation. * Swallowing Evaluation:?Consider consult with a speech-language pathologist for a formal swallow study to assess for dysphagia and confirm aspiration risk. Therapeutics: * Gastroenterology: Patient will need to undergo an EGD while she can get off of BiPAP for therapeutic treatment of esophageal dysphagia with possible esophageal dilation plus or minus Botox. ?Definitive diagnosis of achalasia via manometry and esophagram once the patient is stable. * Aspiration Prevention:?Modify diet to soft or pureed foods, and ensure upright positioning for meals. Consider enteral feeding if severe dysphagia persists. Charges/Coding Visit Charges Inpatient E&M: 71479 Init Hosp L3 07/25/25 0834 <Electronically signed by Kamron Friend DO> Cosigner Signature (if applicable): CC: LILI TAYLOR~ Signed [facility] Work Phone: Consult note Author Deandre Nevarez [facility] Note Date/Time July 23, 2025 5 :47am [facility] Medical Records Department [address] [place] [id number] Consultation - Integrated Pest Management Technician 07/23/25 0526 MR#: [id number] Acct: [id number] Name: WING LIN Rep #:[id number] : [id number] From: Deandre Nevarez MD PCP: LILI STOREY Status:ADM IN Location: ICU ICU03-1 HPI Consult Data Date of Consult: 07/23/25 HPI Narrative Reason for Consultation: Intubated HPI Narrative: WING LIN, is a 80 F who presents for Dysphagia. Patient found to have Achalasia therefore GI was consulted and patient was admitted to floor. Patient was on 4L NC at home but patient was having respiratory distress therefore BiPAPwas tried initially but patient continued to worsen therefore patient was transferred to ICU and intubated. PMHx: COPD on 4L NC O2, CHF, CKD, CVA, DM, HTN, HLD, Anxiety/depression. [facility] Medical History Wears glasses Wears dentures Diabetes Walker as ambulation aid Arthritis Hepatitis High cholesterol Easy bruising Back pain Syncope Dietary restriction History of hiatal hernia Gastric reflux On home oxygen therapy Shortness of breath on exertion Leg cramps History of pain when walking History of edema History of irregular heartbeat CKD (chronic kidney disease), stage IV Chronic hypoxic respiratory failure, on home oxygen therapy Anxiety and depression Chronic obstructive pulmonary disease Iron deficiency anemia Hyperlipidemia Diabetes mellitus Former smoker Stroke/cerebrovascular accident Hypertension Emphysema of lung CKD stage 4 due to type 1 diabetes mellitus Home Medications ?Medication ?Instructions ?Recorded ?Last Taken ?Type aspirin 81 mg chewable tablet 81 mg PO DAILY@0800 Hear t health 12/27/16 07/28/23 History bupropion HCl 150 mg tablet,12 hr 150 mg PO BID mental health 12/27/16 07/28/23 History sustained-release cyanocobalamin (vitamin B-12) 1,000 mg PO DAILY supple ment 12/27/16 07/28/23 History 1,000 mcg tablet (Vitamin B-12) lovastatin 40 mg tablet 40 mg PO QHS cholesterol 07/27/23 History montelukast 10 mg tablet 10 mg PO DAILY allergies 07/28/23 History trazodone 150 mg tablet 150 mg PO QHS insomnia 12/2707/27/23 History venlafaxine 150 mg 150 mg PO DAILY depression 0 12/27/16 07/28/23 History capsule,extended release 24 hr albuterol sulfate 90 mcg/actuation 1 - 2 puff inhalati on Q4H PRN PRN 12/30/16 01/19/20 Rx aerosol inhaler (Ventolin HFA) Sob &/Or Wheezing ##1 bisoprolol fumarate 5 mg tablet 5 mg PO DINNER blood p ressure 04/19/21 07/27/23 History pioglitazone 30 mg tablet 30 mg PO DAILY@0800 diabetes 01/26/22 07/28/23 History oxycodone-acetaminophen 5 mg-325 1 tab PO Q12H PRN diogo k pain 07/28/23 07/28/23 History mg tablet aripiprazole 10 mg tablet 10 mg PO DAILY 02/29/24 Unkn own History esomeprazole magnesium 40 mg 40 mg PO DAILY 02/29/24 U nknown History capsule,delayed release losartan 50 mg tablet 50 mg PO DAILY #30 tabs 02/11 12/06 Unknown Rx glimepiride 2 mg tablet 2 mg PO BID 05/11/24 Unknown History Allergy/AdvReac Type Severity Reaction Status Date / Time No Known Allergies Allergy Verified 07/22/25 13:19 Family History Mother Diabetes Heart disease Hypertension Father Diabetes Heart disease Hypertension Surgical History History of ERCP Hx laparoscopic cholecystectomy Status post open reduction with internal fixation (ORIF) of fracture of ankle Social History household members: spouse Smoking Status: Former smoker how long ago did patient quit smoking: Smoked 2 ppd until ~ 10 years ago since teen until quit. alcohol intake: never substance use type: does not use Objective Data Objective Data Vital Signs: Vital Signs Last response 3 Temperature 36.0 C L 07/23/25 03:00 Temperature Source Core 07/23/25 03:00 Pulse Rate 94 07/23/25 05:15 Respiratory Rate 17 07/23/25 04:38 Respiratory Effort Mechanically Ventilated 07/23/25 00:00 Respiratory Depth Normal 07/23/25 00:00 Respiratory Pattern Normal 07/23/25 00:00 Blood Pressure 152/61 H 07/23/25 03:00 Blood Pressure Mean 91 07/23/25 03:00 Blood Pressure Source Monitor 07/22/25 22:00 Blood Pressure Position Semi-Fowlers 07/22/25 22:00 Blood Pressure Location Left Arm 07/22/25 22:00 Pulse Ox 97 07/23/25 05:15 Oxygen Delivery Method Mechanical Ventilator 07/23/25 03:00 Oxygen Flow Rate (L/min) 4 07/22/25 21:16 Fraction of Inspired Oxygen (FIO2) 35 07/23/25 03:00 I&O: I&O Last 24 Hours 3 07/22/25 07/22/25 07/23/25 11:59 23:59 11:59 Intake Total 419.85 / 426.08 142.03 / 142.03 Output Total 575 / 575 Balance 419.85 / -148.92 -432.97 / -432.97 I&O: Total Stay 3 07/22/25 12:11 thru 07/23/25 04:57 Intake Total 561.88 Output Total 575 Balance -13.12 Ventilator:: AC/VC - 30%/ RR 16, PEEP 8 to 5, VT 400 Current Meds Ordered / Administered: Current meds ordered / Administered 3 Generic Name Dose Route Start Last Admin Trade Name Freq PRN Reason Stop Dose Admin Acetaminophen 650 mg 07/22/25 18:32 Acetaminophen 325 Mg Tablet PO Q6H PRN PRN Pain 1-10 Or Fever>100.7 Albuterol/Ipratropium 3 ml 07/22/25 18:32 07/22/25 20:50 Ipratropium/Albuterol Sulfate 3 Ml Ampul.Neb INHALATION 3 ml Q6HWA.RT REG Administration Aripiprazole 10 mg 07/23/25 10:00 Aripiprazole 10 Mg Tablet PO DAILY [facility] Protocol Aspirin 81 mg 07/23/25 08:00 Aspirin 81 Mg Tab.Chew PO DAILY@0800 REG Atorvastatin Calcium 10 mg 07/22/25 22:00 07/23/25 00:12 Atorvastatin Calcium 10 Mg Tablet PO Not Given QHS [facility] Bisoprolol Fumarate 5 mg 07/23/25 17:00 Bisoprolol Fumarate 5 Mg Tablet PO DINNER [facility] Bupropion HCl 150 mg 07/22/25 22:00 07/23/25 00:12 Bupropion (Sr) 150 Mg Tablet.Sa PO Not Given BID REG Chlorhexidine Gluconate 15 ml 07/22/25 22:00 07/22/25 23:17 Chlorhexidine 15 Ml PO 15 ml BID REG Administration Cyanocobalamin 1,000 mcg 07/23/25 10:00 Cyanocobalamin 500 Mcg Tablet PO DAILY [facility] Fentanyl Citrate 50 mcg 07/22/25 21:59 Fentanyl 100 Mcg/2 Ml Ampul IV Q2H PRN PRN Pain >/= 4/10 or CPOT>/= 3/8 Furosemide 40 mg 07/22/25 18:32 07/22/25 21:18 Furosemide 40 Mg/4 Ml Vial IV 40 mg BIDLX REG Administration Protocol Glucagon 1 mg 07/22/25 21:04 Glucagon 1 Mg/Ml Syringe IM X1 PRN Hypoglycemia Protocol Heparin Sodium (Porcine) 5,000 unit 07/22/25 22:00 07/23/25 00:11 Heparin Injection (Vial) 5,000 Unit/Ml Vial SC 5,000 unit Q8 REG Administration Hydralazine HCl 10 mg 07/22/25 21:08 Hydralazine 20 Mg/Ml Vial IV Q4H PRN PRN SBP GREATER THAN 170 Protocol Sodium Chloride 250 mls @ 15 mls/hr 07/22/25 18:33 IV .[id number] PRN Saline Flush Sodium Chloride 250 mls @ 15 mls/hr 07/22/25 18:33 IV .[id number] PRN Additional IVPB Infusion Piperacillin Sod/Tazobactam 50 mls @ 12.5 mls/hr 07/22/25 22:00 07/23/25 04:15 Sod 3.375 gm/ Sodium Chloride IV Infused Q8 REG Infusion Dextrose 250 mls @ 0 mls/hr 07/22/25 21:04 Dextrose 10%-Water IV .Q0M PRN HYPOGLYCEMIA Protocol As Directed Pantoprazole Sodium 40 mg/ 100 mls @ 300 mls/hr 07/22/25 21:05 07/22/25 23:45 Sodium Chloride IV Infused Q24 REG Infusion Propofol 1,000 mg in 100 mls @ 4.97 mls/hr 07/22/25 22:00 07/23/25 04:30 Diprivan CONT INF 25 mcg/kg/min .Q12H REG 12.4 mls/hr Protocol Titration 10 MCG/KG/MIN Fentanyl 100 mls @ 2.5 mls/hr 07/22/25 22:55 07/23/25 04:00 CONT INF 50 mcg/hr UD REG 5 mls/hr Protocol Titration 25 MCG/HR Influenza Virus Vaccine 180 mcg 07/23/25 10:00 Flu Vaccine High Dose 25-26(65yr Up) 180 Mcg/0.5 Ml Syringe IM 07/23/25 10:01 .ONCE ONE Insulin Human Lispro 0 unit 07/22/25 22:00 07/23/25 00:11 Insulin Lispro 100 Unit/Ml Insuln.Pen SC 6 u ACHS [facility] Administration Protocol Losartan Potassium 50 mg 07/23/25 10:00 Losartan Potassium 50 Mg Tablet PO DAILY [facility] Protocol Methylprednisolone Sodium Succinate 40 mg 07/23/25 06:00 Methylprednisolone Sod Succ 40 Mg/Ml Vial IV Q8 REG Montelukast Sodium 10 mg 07/23/25 10:00 Montelukast 10 Mg Tablet PO DAILY [facility] Nystatin 1 applic 07/22/25 22:00 07/23/25 00:12 Nystatin Powder 15gm Bottle TOPICAL 1 applic BID [facility] Administration Protocol Ondansetron HCl 4 mg 07/22/25 18:32 Ondansetron 4 Mg/2 Ml Vial IV Q8H PRN PRN NAUSEA/VOMITING Sodium Chloride 10 - 40 ml 07/22/25 18:33 07/23/25 00:20 0.9% Saline Lock 10 Ml Syringe IV 30 ml UD PRN Administration SALINE FLUSH Trazodone HCl 150 mg 07/22/25 21:08 Trazodone 50 Mg Tablet PO QHS PRN sleep Venlafaxine HCl 150 mg 07/23/25 10:00 Venlafaxine Xr 150 Mg Capsule PO DAILY [facility] Physical Exam Narrative PHYSICAL EXAMINATION General: no acute distress; Intubated and sedated HEENT: PERRL; Anicteric Sclera; No thyromegaly, JVD, Lymphadenopathy Cardiovascular: Regular Rate and Rhythm; No murmurs, rubs, gallops; no displacedPMI Respiratory: no crackles, wheezes, or rhonchi Abdominal: Non-tender; Non-distended; Active BS x 4; No Hepatosplenomegaly Extremities: Warm, well perfused; No clubbing, cyanosis, edema; capillary refill< 2sec Neurological: Unable to perform Lab / Micro Data 07/23/25 04:50 07/22/25 12:32 Labs: Laboratory Results - last 24 hr 07/22/25 12:32: WBC 17.0 H, RBC 2.90 L, Hgb 9.1 L, Hct 28.8 L, MCV 99.3 H, MCH 31.4, MCHC 31.6 L, RDW Std Deviation 49.3 H, RDW Coeff of Tessa 13.5, Plt Count 230, MPV 9.4, Immature Gran % (Auto) 1.000 H, Neut % (Auto) 87.3 H, Lymph % (Auto) 4.4 L, Travis % (Auto) 6.7, Eos % (Auto) 0.4, Baso % (Auto) 0.2, Absolute Neuts (auto) 14.8 H, Absolute Lymphs (auto) 0.75 L, Nucleated RBC % 0, Sodium 133, Potassium 5.4 H, Chloride 102, Carbon Dioxide 19.0 L, Anion Gap 12, BUN 50 H, Creatinine 2.04 H, Estim Creat Clear Calc 24.23 L, Est GFR (MDRD) Non-Af 24 L, BUN/Creatinine Ratio 24.5 H, Glucose 232 H, Hemoglobin A1c 6.4 H, Lactic Acid < 1.0, Calcium 8.6, Total Bilirubin 0.40, AST 55 H, ALT 30, Alkaline [id number] H, Troponin T High Sens 40 H, NT pro BNP II 5405 H, Total Protein 7.1, Albumin 3.3 L, Globulin 3.9, Albumin/Globulin Ratio 0.8 L 07/22/25 13:09: Urine Color Yellow, Urine Clarity Clear, Urine pH 6.0, Ur Specific [place] 1.015, Urine Protein 100 H, Urine Glucose (UA) Normal, Urine Ketones Negative, Urine Occult Blood 10 H, Urine Nitrite Negative, Urine Bilirubin Negative, Urine Urobilinogen 1 H, Ur Leukocyte Esterase 25 H, Urine RBC 0 SEEN, Urine WBC 0 SEEN, Ur Squamous Epith Cells 0 SEEN, Urine Bacteria 0 SEEN, Urine Mucus 0 SEEN 07/22/25 15:23: Troponin T Hi Sens 2 Hr 39 H 07/22/25 16:33: Troponin T Hi Sens 4Hr 38 H, Procalcitonin 0.68 H 07/23/25 00:08: POC Glucose 320 H 07/23/25 04:50: WBC 15.9 H, RBC 3.09 L, Hgb 9.4 L, Hct 29.4 L, MCV 95.1, MCH 30.4, MCHC 32.0, RDW Std Deviation 46.9 H, RDW Coeff of Tessa 13.5, Plt Count 254,MPV 9.6 Micro: Microbiology 07/22/25 12:30 Mucosa - Nose SARS-CoV-2, Influenza & RSV (PCR) - Final ABG Data ABG results: ABG 1007/22/25 07/22/25 12:43 13:27 23:34 Specimen Type SARAH ART ART Sample Site L Radial R Brach L Radial pH 7.18 L* 7.31 L 7.41 Bicarbonate Actual 21.7 L 20.0 L 20.4 L Total CO2 24 21 21 Base Excess -7 L -6 L -4 L O2 Saturation 83 L 95 99 O2 % 45.0 40.0 50.0 ABG pCO2 58.7 H 39.6 32.4 L ABG pO2 60 L 82 151 H Miranda Test Positive N/A Respiration Rate 16 O2 Delivery Device BiPAP BiPAP Adult Vent Vent Mode Not entered Not entered AC Tidal Volume 400.0 POC PEEP 10 Crit Call To/Read Back Yes Blood Gas Notified Whom DR. RAYMOND Clinical Comments 15 6 15 6 Imaging Radiology Impression Chest X-Ray 07/22/25 12:17 IMPRESSION: Findings in the mid and lower right lung suggesting possible pneumonia, with possible underlying fibrosis/scarring. Follow-up PA and lateral chest exam is recommended. Scarring versus small effusion the in the lateral left lung base. Tortuous calcific aortic atherosclerosis. Reading Location: [facility] Chest CTA 07/22/25 14:28 IMPRESSION: Cardiomegaly and bilateral pleural effusions may be suggestive of CHF. Airspaceopacities in the lower lungs may represent atelectasis or pneumonia. Dilated esophagus with ingested material consistent with gastroesophageal reflux. Follow-up with outpatient barium swallow can be helpful for further evaluation. No evidence of pulmonary embolism. Reading Location: [id number] Soft Tissue Neck CT 07/22/25 14:28 IMPRESSION: 1. No acute or active inflammatory process identified in the neck. 2. No neck mass or cervical lymphadenopathy. 3. Fluid and air-filled dilatation of the visualized esophagus, may reflect achalasia. 4. Mild-moderate biapical pulmonary emphysema. 8 mm nodule in the left upper lobe. Multiple nonspecific enlarged upper mediastinal lymph nodes; see separate CT thorax report. 5. Multiple small subcentimeter thyroid nodules/cysts. Reading Location: [id number] Chest X-Ray 07/22/25 22:05 IMPRESSION: As above. Reading Location: [id number] Chest X-Ray 07/22/25 23:10 IMPRESSION: Improperly positioned orogastric tube. Reading Location: [address] Assessment and Plan . Assessment and plan: #Acute respiratory failure, Hypoxia and hypercapnia -Continue Mechanical ventilation -Lung protective ventilation.? Focus will be to keep the tidal volume at 6 mL/kgideal body weight.? Attempt will be made to keep the driving pressure less than 15 and the PEEP will be adjusted accordingly. -Plateau pressures, auto peeping will be monitored. -Keep plat pressure 30 and less -Target plateau < 30 and driving pressure < 15 if able to -Tidal volume at 6-8 mL/kg ideal body weight - ABCDEF bundle -Daily ABG and CXR -Ventilatory changes depending on ABG and Ventilatory pressures -Will target RASS of -2 sedation -Wean FiO2 first to 60% then wean PEEP as applicable -SAT and SBT when applicable -Duonebs q6hrs #Pneumonia - Mostlikely Aspiration -Blood cultures, sputum cultures -Monitor Lactic acid -IV abx-Zosyn -Check COVID/Flu A/B pending -Check urine legionella and strep pneumoniae #Achalasia -GI consulted -Will need EGD and dilatation #COPD -Start on Duonebs -Consider Brovana and Budesonide #DM, HTN, HLD, CVA, CHF, Anxiety and Depression -Restart home meds but can not be given via NG tube therefore consider converting to IV meds DVT px - SCD's for now, hold chemoprophylaxis in anticipation of EGD in am. Critical Care Time: 64mins The entirety of this encounter was done via Telemedicine 07/23/25 0547 <Electronically signed by Deandre Nevarez MD> Cosigner Signature (if applicable): CC: LILI TAYLOR~ Signed [facility] Work Phone: Consult note Author Santos Leonard [facility] Note Date/Time August 05, 2025 3 :48pm [facility] Medical Records Department [address] [place] [address] Pre-Anesthesia Evaluation 07/29/25 1151 MR#: [id number] Acct: [id number] Name: WING LIN Rep #:[id number] : 1945 80 From: Santos Leonard MD PCP: LILI STOREY Status:ADM IN Y Race: C Location: ICU ICU -1 ASA Classification* ASA Classification ASA Classification: 4 Assessment & Plan Anesthesia* Anesthesia Assessment Anesthesia Assessment: Discussed sedation and/or anesthesia options, risks, benefits, and alternatives with patient/parents/legal guardian/POA. Questions invited. The patient/parents/legal guardian/POA seems to understand and agrees to proceedwith anesthesia plan. Reviewed the physical assessment, medical history, allergy history and patient home medications list prior to surgery/procedure/anesthetic and documented any changes. Performed airway and anesthesia risk assessments. Anesthesia Type Anesthesia Type: MAC Anesthesia Focused Assessment* Temperature: 98.8 F Pulse Rate: 125 Blood Pressure: 137/103 Respiratory Rate: 18 Pulse Ox: 94 Oxygen Flow Rate (L/min): 4 Fraction of Inspired Oxygen (FIO2): 30 Airway Assessment Mouth opens: >3 cm Mallampati Score: II Labs Anesthesia Preop lab: CBC WBC, (4.4-11.0) 13.6 K/mm3 H Today, 04:50 RBC, (4.2-5.4) 3.17 M/mm3 L Today, 04:50 Hgb, (12.0-15.0) 9.8 g/dL L Today, 04:50 Hct, (37-47) 30.4 % L Today, 04:50 Plt Count, (150-450) 330 K/mm3 Today, 04:50 CHEMISTRY Potassium, (3.3-5.1) 3.8 mmol/L Today, 04:50 Sodium, (133-145) 140 mmol/L Today, 04:50 Magnesium, (1.5-2.2) 1.9 mg/dL 07/24/25, 03:44 Phosphorus, (2.7-4.5) 5.0 mg/dL H 07/24/25, 03:44 BUN, (4-19) 56 mg/dL H Today, 04:50 Creatinine, (0.70-1.20) 1.67 mg/dL H Today, 04:50 Glucose, (70-99) 215 mg/dL H Today, 04:50 POC Glucose, (74-106) 156 mg/dL H Today, 11:00 TSH, (0.358-3.74) 1.74 uIU/mL 01/20/20, 06:20 COAG PT, (11.7-14.9) 14.7 SECONDS 07/24/25, 12:25 Pre-Assessment Diagnosis/Proposed Procedure Planned Operative Procedure(s): peg Anesthesia History 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 When Was Last Pacemaker Check QUESTION #4 FULL TEXT: You/Your Family Experience fever (hyperthermia) with Anesthesia Last Oral Intake Last Oral intake: Last Oral Intake NPO since Meds taken in AM with sips of water? 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 Has anyone observed you stop No 07/22/25 18:33 breathing during sleep? STOP Results Positive 07/22/25 18:33 QUESTION #5 FULL TEXT : Do you snore loudly (louder than talking or can be heard through closed doors)? 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 Specify any problems Hx of Preganancy in last 3 No 07/22/25 18:33 Months Nurse Filling Out Transfusion JASON 07/22/25 18:33 & Questions: Date: 07/22/25 07/22/25 18:33 Time: 18:56 07/22/25 18:33 Patient unable to answer at this time (ie. confused, unrespo /Reproduction History /Reproductive History - minibus driver: /Reproductive Hx- minibus driver Hx Now Gestational Age (in weeks): EDC: Hx Hx Para Hx Section SAB No 05/25/24 09:56 Active Medications Active Medications: Current Medications Generic Name Dose Route Start Last Admin Trade Name Freq PRN Reason Stop Dose Admin Acetaminophen 650 mg 07/22/25 18:32 Acetaminophen 325 Mg Tablet PO Q6H PRN PRN Pain 1-10 Or Fever>100.7 Amiodarone HCl 200 mg 07/29/25 10:00 07/29/25 08:53 Amiodarone 200 Mg Tablet PO Not Given BID [facility] Aripiprazole 10 mg 07/23/25 10:00 07/29/25 10:27 Aripiprazole 10 Mg Tablet PO Not Given DAILY [facility] Protocol Atorvastatin Calcium 10 mg 07/22/25 22:00 07/28/25 21:25 Atorvastatin Calcium 10 Mg Tablet PO Not Given QHS [facility] Bupropion HCl 150 mg 07/22/25 22:00 07/29/25 08:51 Bupropion (Sr) 150 Mg Tablet.Sa PO Not Given BID [facility] Chlorhexidine Gluconate 1 each 07/25/25 10:00 07/29/25 10:27 Chlorhexidine Gluc 2% Cloth 1 Each Towelette TOPICAL 1 each DAILY REG Administration Cholecalciferol 125 mcg 07/24/25 10:00 07/29/25 08:51 Cholecalciferol (Vit D3) 125 Mcg Capsule (5,000 Units) PO Not Given DAILY [facility] Cyanocobalamin 1,000 mcg 07/23/25 10:00 07/29/25 08:51 Cyanocobalamin 500 Mcg Tablet PO Not Given DAILY [facility] Fentanyl Citrate 50 mcg 07/22/25 21:59 Fentanyl 100 Mcg/2 Ml Ampul IV Q2H PRN PRN Pain >/= 4/10 or CPOT>/= 3/8 Ferrous Sulfate 325 mg 07/23/25 12:00 07/29/25 11:22 Ferrous Sulfate 325 Mg Tablet PO Not Given 1200,1700 [facility] Glucagon 1 mg 07/22/25 21:04 Glucagon 1 Mg/Ml Syringe IM X1 PRN Hypoglycemia Protocol Heparin Sodium (Porcine) 0 unit 07/24/25 12:07 07/28/25 15:56 Heparin Nomogram Adjustment 5,000 Unit/Ml Vial IV 3,000 unit UD PRN Administration Dose Adjustment Protocol Hydralazine HCl 10 mg 07/22/25 21:08 Hydralazine 20 Mg/Ml Vial IV Q4H PRN PRN SBP GREATER THAN 170 Protocol Sodium Chloride 250 mls @ 15 mls/hr 07/22/25 18:33 07/28/25 06:13 IV Infused .[id number] PRN Infusion Saline Flush Sodium Chloride 250 mls @ 15 mls/hr 07/22/25 18:33 IV .[id number] PRN Additional IVPB Infusion Dextrose 250 mls @ 0 mls/hr 07/22/25 21:04 07/27/25 21:40 Dextrose 10%-Water IV Infused .Q0M PRN Infusion HYPOGLYCEMIA Protocol As Directed Pantoprazole Sodium 40 mg/ 100 mls @ 300 mls/hr 07/22/25 21:05 07/29/25 08:35 Sodium Chloride IV Infused Q24 REG Infusion Ampicillin Sodium/Sulbactam 100 mls @ 150 mls/hr 07/26/25 22:00 07/29/25 09:30 Sodium 3 gm/ Sodium Chloride IV 07/29/25 22:01 Infused Q12 REG Infusion Dextrose/Sodium Chloride 1,000 mls @ 75 mls/hr 07/27/25 14:05 07/29/25 11:29 IV 0 mls/hr .[id number] REG Infusion Sodium Chloride 1,000 mls @ 15 mls/hr 07/29/25 11:40 07/29/25 11:50 IV 15 mls/hr .Q48H REG Administration Insulin Human Lispro 0 unit 07/23/25 12:00 07/29/25 11:25 Insulin Lispro 100 Unit/Ml Insuln.Pen SC 3 u Q6 REG Administration Protocol Ipratropium Roggen 0.5 mg 07/24/25 12:00 07/29/25 06:52 Ipratropium 0.5 Mg/2.5 Ml Solution INHALATION 0.5 mg Q6H.RT REG Administration Losartan Potassium 50 mg 07/23/25 10:00 07/29/25 08:52 Losartan Potassium 50 Mg Tablet PO Not Given DAILY REG Protocol Metoprolol Tartrate 5 mg 07/29/25 12:00 07/29/25 10:56 Metoprolol Tartrate 5 Mg/5 Ml Vial IV 5 mg Q6 REG Administration Protocol Montelukast Sodium 10 mg 07/23/25 10:00 07/29/25 08:52 Montelukast 10 Mg Tablet PO Not Given DAILY REG Nystatin 1 applic 07/22/25 22:00 07/29/25 08:52 Nystatin Powder 15gm Bottle TOPICAL 1 applic BID REG Administration Protocol Ondansetron HCl 4 mg 07/22/25 18:32 Ondansetron 4 Mg/2 Ml Vial IV Q8H PRN PRN NAUSEA/VOMITING Sodium Chloride 10 - 40 ml 07/22/25 18:33 07/29/25 11:25 0.9% Saline Lock 10 Ml Syringe IV 10 ml UD PRN Administration SALINE FLUSH Trazodone HCl 150 mg 07/22/25 21:08 Trazodone 50 Mg Tablet PO QHS PRN sleep Venlafaxine HCl 150 mg 07/23/25 10:00 07/29/25 08:52 Venlafaxine Xr 150 Mg Capsule PO Not Given DAILY [facility] Medical History Wears glasses Wears dentures Diabetes Walker as ambulation aid Arthritis Hepatitis High cholesterol Easy bruising Back pain Syncope Dietary restriction History of hiatal hernia Gastric reflux On home oxygen therapy Shortness of breath on exertion Leg cramps History of pain when walking History of edema History of irregular heartbeat CKD (chronic kidney disease), stage IV Chronic hypoxic respiratory failure, on home oxygen therapy Anxiety and depression Chronic obstructive pulmonary disease Iron deficiency anemia Hyperlipidemia Diabetes mellitus Former smoker Stroke/cerebrovascular accident Hypertension Emphysema of lung CKD stage 4 due to type 1 diabetes mellitus Home Medications ?Medication ?Instructions ?Recorded ?Last Taken ?Type aspirin 81 mg chewable tablet 81 mg PO DAILY@0800 Hear t health 12/27/16 07/28/23 History bupropion HCl 150 mg tablet,12 hr 150 mg PO BID mental health 12/27/16 07/28/23 History sustained-release cyanocobalamin (vitamin B-12) 1,000 mg PO DAILY supple ment 12/27/16 07/28/23 History 1,000 mcg tablet (Vitamin B-12) lovastatin 40 mg tablet 40 mg PO QHS cholesterol 07/27/23 History montelukast 10 mg tablet 10 mg PO DAILY allergies 07/28/23 History trazodone 150 mg tablet 150 mg PO QHS insomnia 12/2707/27/23 History venlafaxine 150 mg 150 mg PO DAILY depression 0 12/27/16 07/28/23 History capsule,extended release 24 hr albuterol sulfate 90 mcg/actuation 1 - 2 puff inhalati on Q4H PRN PRN 12/30/16 01/19/20 Rx aerosol inhaler (Ventolin HFA) Sob &/Or Wheezing ##1 bisoprolol fumarate 5 mg tablet 5 mg PO DINNER blood p ressure 04/19/21 07/27/23 History pioglitazone 30 mg tablet 30 mg PO DAILY@0800 diabetes 01/26/22 07/28/23 History oxycodone-acetaminophen 5 mg-325 1 tab PO Q12H PRN diogo k pain 07/28/23 07/28/23 History mg tablet aripiprazole 10 mg tablet 10 mg PO DAILY mood 02/29/24 Unknown History esomeprazole magnesium 40 mg 40 mg PO DAILY acid reflu x 02/29/24 Unknown History capsule,delayed release losartan 50 mg tablet 50 mg PO DAILY #30 tabs 02/11 12/06 Unknown Rx glimepiride 2 mg tablet 2 mg PO BID diabetes 4 Unknown History OXYGEN - Supplemental ([facility] hypoxia 07/23/25 Unknown Hi story INFORMATIONAL USE ONLY) cholecalciferol (vitamin D3) 125 125 mcg PO DAILY supp lement 07/23/25 Unknown History mcg (5,000 unit) capsule ferrous sulfate 325 mg (65 mg 325 mg PO BID supplement 07/23/25 Unknown History iron) tablet Allergy/AdvReac Type Severity Reaction Status Date / Time No Known Allergies Allergy Verified 07/22/25 13:19 Family History Mother Diabetes Heart disease Hypertension Father Diabetes Heart disease Hypertension Surgical History History of ERCP Hx laparoscopic cholecystectomy Status post open reduction with internal fixation (ORIF) of fracture of ankle Social History household members: spouse Smoking Status: Former smoker how long ago did patient quit smoking: Smoked 2 ppd until ~ 10 years ago since teen until quit. alcohol intake: never substance use type: does not use Review of Systems (Anesthesia) ROS Narrative System reviewed and no additional complaints, except as documented. 07/29/25 1151 <Electronically signed by Santos Leonard MD> Date _ Santos Lyonignrosalba Signature: Date CC: ~ Signed [facility] Work Phone: Consult note Author Darwin Amador [facility] Note Date/Time August 05, 2025 3 :48pm [facility] Medical Records Department [address] [place] [id number] Anesthesia Postop Eval I 07/29/25 1238 MR#: [id number] Acct: [id number] Name: WING LIN Rep #:[id number] : 1945 80 From: Darwin ASENCIO PCP: LILI STOREY Status:ADM IN Y Race: C Location: ICU [place] [address] Anesthesia: Postop Eval I Current Vital Signs Temperature: 98 F Pulse Rate: 119 Blood Pressure: 150/76 Respiratory Rate: 16 Pulse Ox: 92 Oxygen Delivery Method: Nasal Cannula Oxygen Flow Rate (L/min): 4 Assessment Airway patent: Yes Spontaneous unlabored respirations: Yes Mental status: Awake and Calm nausea: No Vomiting: No Anesthesia Complication: No Fluid Hydration Crystalloid volume administer (ml): 400 Total IV fluid infused: 400 Progress Note Anesthesia document: Postop Eval 1 completed: Yes 07/29/25 1238 <Electronically signed by Darwin Amador CRNA> Date _ Darwin Gottlieb Signature: Date CC: ~ Signed [facility] Work Phone: Consult note Author Darwin Amador [facility] Note Date/Time August 05, 2025 3 :48pm [facility] Medical Records Department [address] [place] [address] Anesthesia Postop Eval II 07/29/25 1254 MR#: [id number] Acct: [id number] Name: WING LIN Rep #:[id number] : 1945 80 From: Darwin Morgan RNA PCP: LILI STOREY Status:ADM IN Y Race: C Location: ICU ICU03 -1 Anesthesia Postop Eval I Sum Postop Eval Completion status Anesthesia document: Postop Eval 1 completed: Yes Anesthesia Postop Eval I Summary Anesthesia Postop Eval I Summary: Anesthesia Postop Eval I: Assessment Summary Airway patent Yes 07/29/25 12:38 LEASING PROPERTY MANAGER.MDOT Spontaneous unlabored Yes 07/29/25 12:38 LEASING PROPERTY MANAGER.MDOT respirations Mental status Awake,Calm 07/29/25 12:38 LEASING PROPERTY MANAGER.MDOT nausea No 07/29/25 12:38 LEASING PROPERTY MANAGER.MDOT Vomiting No 07/29/25 12:38 LEASING PROPERTY MANAGER.MDOT Anesthesia Postop Eval I: Fluid Summary Crystalloid volume administer 400 07/29/25 12:38 LEASING PROPERTY MANAGER.MDOT (ml) Colloids volume administered ( ml) Blood Product volume administered (ml) Total IV fluid infused 400 07/29/25 12:38 LEASING PROPERTY MANAGER.MDOT Anesthesia Postop Eval I: Summary Notes Anesthesia Complication No 07/29/25 12:38 LEASING PROPERTY MANAGER.MDOT Anesthesia Complication Comment: Post-operative progress note Anesthesia: Postop Eval II Evaluation Mental status: Awake and Calm Pain Level: 0 nausea: No Vomiting: No Complications Anesthesia Complication: No 07/29/25 1254 <Electronically signed by Darwin Amador CRNA> Date _ Darwin Lyonignrosalba Signature: Date CC: ~ Signed [facility] Work Phone: Consult note Author Santos Leonard [facility] Note Date/Time August 05, 2025 3 :48pm [facility] Medical Records Department [address] [place] [address] Anesthesia Postop Eval II 07/29/25 1316 MR#: [id number] Acct: [id number] Name: WING LIN Rep #:[id number] : 1945 80 From: Santos Leonard MD PCP: LILI STOREY Status:ADM IN Y Race: C Location: ICU ICU03 -1 Anesthesia Postop Eval I Sum Postop Eval Completion status Anesthesia document: Postop Eval 1 completed: Yes Anesthesia Postop Eval I Summary Anesthesia Postop Eval I Summary: Anesthesia Postop Eval I: Assessment Summary Airway patent Yes 07/29/25 12:38 LEASING PROPERTY MANAGER.MDOT Spontaneous unlabored Yes 07/29/25 12:38 LEASING PROPERTY MANAGER.MDOT respirations Mental status Awake,Calm 07/29/25 12:54 LEASING PROPERTY MANAGER.MDOT nausea No 07/29/25 12:54 LEASING PROPERTY MANAGER.MDOT Vomiting No 07/29/25 12:54 LEASING PROPERTY MANAGER.MDOT Anesthesia Postop Eval I: Fluid Summary Crystalloid volume administer 400 07/29/25 12:38 LEASING PROPERTY MANAGER.MDOT (ml) Colloids volume administered ( ml) Blood Product volume administered (ml) Total IV fluid infused 400 07/29/25 12:38 LEASING PROPERTY MANAGER.MDOT Anesthesia Postop Eval I: Summary Notes Anesthesia Complication No 07/29/25 12:54 LEASING PROPERTY MANAGER.MDOT Anesthesia Complication Comment: Post-operative progress note Anesthesia: Postop Eval II Evaluation Mental status: Awake Pain Level: 0 nausea: No Vomiting: No 07/29/251315 <Electronically signed by Santos Leonard MD> Date _ Santos Leonard MD Cosigner Signature: Date CC: ~ Signed [facility] Work Phone: Consult note Author Leonidas Amezcua [facility] Note Date/Time August 05, 2025 3 :48pm [facility] Medical Records Department [address] [place] [address] Counseling Note - Pharmacy 08/05/25 1114 MR#: [id number] Acct: [id number] Name: WING LIN Rep #:[id number] : 1945 80 From: Leonidas Amezcua PCP: LILI STOREY Status:ADM IN Y Location: [place] [address] Pharmacy [place] Med Reconciliation Pharmacy Service has performed discharge medication reconciliation for this patient. The patient's discharge medication list was reviewed for discrepancies and discrepancies were resolved. Medications at Discharge Home Medications cyanocobalamin (vitamin B-12) 1,000 mcg tablet (Vitamin B-12) 1,000 mg PO DAILY supplement 12/27/16 lovastatin 40 mg tablet 40 mg PO QHS cholesterol 12/27/16 montelukast 10 mg tablet 10 mg PO DAILY allergies 12/27/16 trazodone 150 mg tablet 150 mg PO QHS insomnia 12/27/16 albuterol sulfate 90 mcg/actuation aerosol inhaler (Ventolin HFA) 1 - 2 puff inhalation Q4H PRN PRN Sob &/Or Wheezing ##1 12/30/16 pioglitazone 30 mg tablet 30 mg PO DAILY@0800 diabetes 01/26/22 aripiprazole 10 mg tablet 10 mg PO DAILY mood 02/29/24 esomeprazole magnesium 40 mg capsule,delayed release 40 mg PO DAILY acid reflux 02/29/24 losartan 50 mg tablet 50 mg PO DAILY #30 tabs 03/03/24 glimepiride 2 mg tablet 2 mg PO BID diabetes 05/11/24 OXYGEN - Supplemental ([facility] INFORMATIONAL USE ONLY) hypoxia 07/23/25 cholecalciferol (vitamin D3) 125 mcg (5,000 unit) capsule 125 mcg PO DAILY supplement 07/23/25 IV with Additives 40 mls/hr GT 08/05/25 amiodarone 200 mg tablet 200 mg G-tube BID 30 days #60 tabs 08/05/25 apixaban 5 mg tablet (Eliquis) 5 mg G-tube BID 30 days #60 tabs 08/05/25 bupropion HCl 100 mg tablet 100 mg G-tube TID 30 days #90 tabs 08/05/25 ferrous sulfate 325 mg (65 mg iron) tablet 325 mg PO DAILY supplement 30 days #30 tabs 08/05/25 metoprolol tartrate 50 mg tablet 50 mg G-tube BID 30 days #60 tabs 08/05/25 oxycodone 20 mg/mL oral concentrate 5 mg (0.25 mL) PO BID PRN PRN Pain Score 6- 10 30 days #0 mL 08/05/25 08/05/25 1114 <Electronically signed by Leonidas antony> Date _ Leonidas Lyonigner Signature (if applicable): Date CC: ~ Signed [facility] Work Phone: Discharge summary Author Antoni Argueta [facility] Note Date/Time August 05, 2025 1 0:18am [facility] Medical Records Department [address] [place] [address] Transfer to [facility] MR#: [id number] Acct: [id number] Name: WING LIN Rep #:[id number] : 1945 80 From: Antoni luciano DO PCP: LILI STOREY Status:ADM IN Certification of patient admission REQUIRED AT TIME OF ADMISSION. I CERTIFY THAT POST-HOSPITAL ECF SERVICES ARE REQUIRED TO BE GIVEN ON AN IN-PATIENT BASIS BECAUSE OF THE ABOVE NAMED PATIENT'S NEED FOR CORRECTION CARE ON A CONTINUING BASIS FOR THE CONDITION(S) FOR WHICH HE/SHE WAS RECEIVING IN-PATIENT HOSPITAL SERVICES PRIOR TO HIS/HER TRANSFER TO THE [facility]. 08/05/25 1018<Electronically signed by Antoni Argueta DO> Diet Diet Order/Speech Therapy: INPATIENT Hospital Diet / Speech Therapy Order(s) 08/04/25 14:12 Diet: Full Liquid Liquid Consistency:: [place]/Mildly Thick Speech Therapy Comments: Direct supervision for food/drink Routine Orders/Code Status Code Status: Full Code DC O2, CPAP, BIPAP needs Home O2 Discharge instructions: Yes Type of respiratory needs?: Oxygen (4) Oxygen frequency: Continuous Continuous oxygen liters per minute: 4 Wound(s) ABDOMEN PEG INSERTION SITE: Wound Type: Surgical Incision Left inner ankle: Wound Type: Abrasion left outer ankle: Wound Type: Abrasion Therapies Weight Bearing: Full weight bearing Physical Therapy: Eval and Treat Occupational Therapy: Eval and Treat Speech Therapy: Eval and Treat Problem/Diagnosis (1) Acute on chronic respiratory failure with hypoxia and hypercapnia: Status: Chronic Code(s): J96.21 - Acute and chronic respiratory failure with hypoxia; J96.22 - Acute and chronic respiratory failure with hypercapnia Plan Patient is a 80-year-old female who presented to [facility] ED on 2025 with worsening shortness of breath. Hospital course as noted below. Patient discharged to SNF in stable condition on 08/05. 1. 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 Integrated Pest Management Technician followed. On 4 L nasal cannula at baseline. Initial ABG with pH 7.18, pCO2 59, pO2 60 on 6 L nasal cannula. CTA chest with bilateral pleural effusions and opacities concerning for atelectasis versus pneumonia. Initially had improvement with BiPAP however was then noted to have increased respiratory distress and required intubation on the evening of admission. Significant esophageal secretions were noted during intubation. Patient was treated with IVantibiotics and scheduled DuoNebs with some improvement, was able to be extubated to nasal cannula on 07/27. Stable on home 4 L nasal cannula since 07/31. Continue home inhalers. 2. Dysphagia secondary to achalasia ? GI followed. Speech therapy followed. Patient with concerns for dysphagia onadmit and CT scan showed esophageal contents on presentation. Patient had significant esophageal secretions with intubation on admit as above. 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 Unfortunately despite dilation with EGD, patientwas still unable to manage secretions and maintain p.o. intake safely so PEG tube was placed on 07/29. Tube feeds increased to goal by 07/31 and patient tolerating without issue. Patient with some improvement by discharge, okay for me full mildly/nectar thick liquid diet with one-to-one supervision. Will continue tube feeds on discharge to allow patient to meet caloric goals. Will need continued speech therapy on discharge. 3. New onset A-fib with RVR, improved ? Patient went into A-fib with RVR early on in the hospitalization requiring amiodarone drip and anticoagulation. Echo showed stage I diastolic dysfunction,EF 70%, monitor enlargement of left atrium, no significant valvular abnormalities. Patient was transition to amiodarone and metoprolol through the G-tube. Heart rate slightly elevated to the 110s to low 120s on 07/31 so metoprolol increased to 25 mg twice daily, then further uptitrated to 50 mg twice daily on 08/01. Heart rate remained much improved with this uptitration. Continue Eliquis that was started during this hospitalization. 4. Acute on chronic HFpEF, resolved ? CTA chest on admit with bilateral pleural effusions and echo with stage I diastolic dysfunction as above. Diuresed well during hospitalization. Euvolemic as of 07/31, no need for further diuretics. 5. Acute on chronic debility with recent mechanical fall ? PT/OT/case management followed. Patient lives at home alone, daughter lives close by. Patient with significant deconditioning during this prolonged hospitalization. Medically ready for discharge on 08/01, discharged to SNF in stable condition on 08/05. 6. BENITO on CKD3b, resolved ? Baseline creatinine appears to be around 1.4-1.6. Creatinine peaked at 2.59 during hospitalization, improved back to baseline by 07/31. Chronic medical conditions: ? Type 2 diabetes mellitus: Has had issues with intermittent hypoglycemia duringhospitalization but blood sugars improved with tube feeds uptitrated to goal. Continue sliding scale insulin every 6 hours. Will plan to resume home glimepiride and pioglitazone on discharge. ? History of CVA, hypertension, hyperlipidemia: Continue losartan and metoprolol. On Eliquis as above. ? Anxiety/depression: Continue home venlafaxine and bupropion. ? Chronic anemia: Hemoglobin stable at baseline around 9 during hospitalization. Total clinical time spent by myself addressing the patient's medical issues, reviewing all the data, and collaborating with patient's care team: 42 minutes. Allergies/Procedures Done in Hospital Allergies No Known Allergies Allergy (Verified 07/22/25 13:19) Procedures: EKG, Intubation, Transthoracic Echo and - (Chest x-ray x 6, CTA chest, CT soft tissue neck, renal ultrasound, modified barium swallow study x 2) Type of Care/Length of Stay Estimated LOS: Convalescent Care Less Than 30 days Type of Care Needed: Skilled Rehab Potential: Fair Prognosis: Fair Additional Orders/Day of Discharge H&P will serve as current which was dated: 07/22/25 Day of Discharge: 08/05/25 Dietary and Speech Recommendations Dietitian Recommendations/Changes: 1. Recommend advanced diet as tolerated to cardiac per VASCULAR SURGERY PHYSICIAN recommendations. 2. Increase goal rate of Jevity 1.5 to 55ml/hr with 150 ml water flush every 4 hours. 3. Will monitor weight trends and labs. 4. Will make adjustments to tube feeding as needed. At time of discharge recommend Jevity 1.5Cal goal rate 55mL/hr with 150mL water flushes every 4 hours. For bolus feedings recommend Jevity 1.5Cal via PEG bolus 265mL 5 times daily with 90mL water flushes before and after each feeding to provide 1987 calories, 84g protein, and 1907mL total free water. Or bolus 220mL 6 times daily with 75mLbefore and after each feeding. Discharge Plan Admission Admit Date/Time: 07/22/25 17:16 Primary Reason for Your Visit: Shortness of breath Attending Provider: Antoni Argueta Primary Care Provider: TAYLOR TAYLOR Consulting Providers: Bulmaro Gandara; Kamron Nguyen; Doris Jeffries; Karlee Rodriguez; Shelby Dumont; Antoni Argueta; Ying Jay; Jonel Lorenzo; Gena Porter Discharge Orders/Prescriptions Prescriptions: New amiodarone 200 mg Tablet 200 mg G-tube BID 30 Days Qty: 60 0RF bupropion HCl 100 mg Tablet 100 mg G-tube TID 30 Days Qty: 90 0RF metoprolol tartrate 50 mg Tablet 50 mg G-tube BID 30 Days Qty: 60 0RF oxycodone 20 mg/mL Concentrate 5 mg PO BID PRN PRN (Reason: Pain Score 6-10) 30 Days Qty: 0 0RF Eliquis 5 mg Tablet 5 mg G-tube BID 30 Days Qty: 60 0RF IV with Additives Jevity 1.5 1000 ML 40 mls/hr GT Ordered By: Antoni Argueta DO Last Taken: 08/05/25 02:14 40 mls/hr Continued glimepiride 2 mg tablet 2 mg PO BID lovastatin 40 MG tablet 40 mg PO QHS Patient Comments: REDUCES CHOLESTEROL cyanocobalamin (vitamin B-12) [Vitamin B-12] 1,000 MCG tablet 1,000 mg PO DAILY Patient Comments: VITAMIN SUPPLEMENT trazodone 150 MG tablet 150 mg PO QHS Patient Comments: SLEEP montelukast 10 MG tablet 10 mg PO DAILY Patient Comments: ALLERGIES albuterol sulfate [Ventolin HFA] 1 INHALER inhaler 1 - 2 puff inhalation Q4H PRN PRN (Reason: Sob &/Or Wheezing) Qty: 1 0RF pioglitazone 30 MG tablet 30 mg PO DAILY@0800 esomeprazole magnesium 40 mg capsule,delayed release(DR/EC) 40 mg PO DAILY aripiprazole 10 mg tablet 10 mg PO DAILY losartan 50 mg tablet 50 mg PO DAILY Qty: 30 1RF OXYGEN - Supplemental ([facility] INFORMATIONAL USE ONLY) Patient Comments: per CM noted, DME through [facility], current orders are 4 l/m continuous cholecalciferol (vitamin D3) 125 mcg (5,000 unit) capsule 125 mcg PO DAILY Changed ferrous sulfate 325 mg (65 mg iron) tablet 325 mg PO DAILY 30 Days Qty: 30 0RF Discontinued bupropion HCl 150 MG tablet sustained-release 12 hr 150 mg PO BID Patient Comments: DEPRESSION venlafaxine 150 MG capsule,extended release 24hr 150 mg PO DAILY Patient Comments: MOOD aspirin 81 MG tablet,chewable 81 mg PO DAILY@0800 Patient Comments: HEALTH MAINTENANCE bisoprolol fumarate 5 mg tablet 5 mg PO DINNER oxycodone-acetaminophen 5-325 mg tablet 1 tab PO Q12H PRN (Reason: back pain) Patient Comments: TAKE 1 TABLET BY MOUTH EVERY 12 HOURS NEEDED FOR PAIN FOR 30 DAYS Referrals / Follow Up: Danilo Oneill DO [Non-Staff, Family Practice] TAYLOR TAYLOR NP-C [Primary Care Provider, Family Practice] Disposition Disposition (needs filled in before D/C Order can be placed): [facility] Facility 08/05/25 1018 <Electronically signed by Antoni Argueta DO> Cosigner Signature (if applicable): CC: LOOP SEWER-Eddie Jeffries; LILI TAYLOR; LOOP SEWERNirmala Rodriguez; Dr. Antoni Argueta DO; Dr. Jonel Lorenzo MD; Dr. Ying Jay DO; Dr. Gena Porter MD; Dr. Bulmaro Gandara MD; GENEVA Stock; Kamron Nguyen DO ~ [facility] Work Phone: Discharge summary Author Antoni Argueta [facility] Note Date/Time August 05, 2025 2 :02pm [facility] Medical Records Department [address] [place] [address] Discharge Summary 08/05/25 1020 MR#: [id number] Acct: [id number] Name: WING LIN Rep #:[id number] : 1945 80 From: Antoni luciano DO PCP: LILI STOREY Status:ADM IN Location: [address] Providers Date of Admission: 07/22/25 Date of Discharge: 08/05/25 Primary Care Physician: LILI STOREY Consultations 07/22/25 18:32 Consult: Gastroenterology Routine Consulting Provider: [facility] Reason for Consult: dysphagia, fluid/air-filled dilation of esophagus on CT, achalasia? EMERGENT Consult: No Notified: Yes Date Notified: 07/22/25 Time Notified: 18:35 Method of Notification: Text 07/22/25 22:10 Consult: Integrated Pest Management Technician / Pulmonary Medicine Routine Consulting Provider: Intensivists/Pulmonary Med Reason for Consult: acute respiratory failure EMERGENT Consult: No Notified: Yes Date Notified: 07/22/25 Time Notified: 04:57 Method of Notification: Answering Service Reason For Visit: ACUTE RESPIRATORY FAILURE TO COPD/CHC EXACERBATION Diagnosis Discharge Diagnosis (1) Acute on chronic respiratory failure with hypoxia and hypercapnia: Status: Chronic Code(s): J96.21 - Acute and chronic respiratory failure with hypoxia; J96.22 - Acute and chronic respiratory failure with hypercapnia Medications at Discharge Home Medications cyanocobalamin (vitamin B-12) 1,000 mcg tablet (Vitamin B-12) 1,000 mg PO DAILY supplement 12/27/16 lovastatin 40 mg tablet 40 mg PO QHS cholesterol 12/27/16 montelukast 10 mg tablet 10 mg PO DAILY allergies 12/27/16 trazodone 150 mg tablet 150 mg PO QHS insomnia 12/27/16 albuterol sulfate 90 mcg/actuation aerosol inhaler (Ventolin HFA) 1 - 2 puff inhalation Q4H PRN PRN Sob &/Or Wheezing ##1 12/30/16 pioglitazone 30 mg tablet 30 mg PO DAILY@0800 diabetes 01/26/22 aripiprazole 10 mg tablet 10 mg PO DAILY mood 02/29/24 esomeprazole magnesium 40 mg capsule,delayed release 40 mg PO DAILY acid reflux 02/29/24 losartan 50 mg tablet 50 mg PO DAILY #30 tabs 03/03/24 glimepiride 2 mg tablet 2 mg PO BID diabetes 05/11/24 OXYGEN - Supplemental ([facility] INFORMATIONAL USE ONLY) hypoxia 07/23/25 cholecalciferol (vitamin D3) 125 mcg (5,000 unit) capsule 125 mcg PO DAILY supplement 07/23/25 IV with Additives 40 mls/hr GT 08/05/25 amiodarone 200 mg tablet 200 mg G-tube BID 30 days #60 tabs 08/05/25 apixaban 5 mg tablet (Eliquis) 5 mg G-tube BID 30 days #60 tabs 08/05/25 bupropion HCl 100 mg tablet 100 mg G-tube TID 30 days #90 tabs 08/05/25 ferrous sulfate 325 mg (65 mg iron) tablet 325 mg PO DAILY supplement 30 days #30 tabs 08/05/25 metoprolol tartrate 50 mg tablet 50 mg G-tube BID 30 days #60 tabs 08/05/25 oxycodone 20 mg/mL oral concentrate 5 mg (0.25 mL) PO BID PRN PRN Pain Score 6- 10 30 days #0 mL 08/05/25 Hospital Course Operations None Procedures EKG, Intubation, Modified Barium Swallow, PICC line placement, Transthoracic echo and - (Chest x-ray x 6, CTA chest, CT soft tissue neck, renal ultrasound) Summary of Care Provided Minutes Spent on Discharge: 42 Hospital Course: Patient is a 80-year-old female who presented to [facility] ED on 2025 with worsening shortness of breath. Hospital course as noted below. Patient discharged to SNF in stable condition on 08/05. 1. 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 Integrated Pest Management Technician followed. On 4 L nasal cannula at baseline. Initial ABG with pH 7.18, pCO2 59, pO2 60 on 6 L nasal cannula. CTA chest with bilateral pleural effusions and opacities concerning for atelectasis versus pneumonia. Initially had improvement with BiPAP however was then noted to have increased respiratory distress and required intubation on the evening of admission. Significant esophageal secretions were noted during intubation. Patient was treated with IVantibiotics and scheduled DuoNebs with some improvement, was able to be extubated to nasal cannula on 07/27. Stable on home 4 L nasal cannula since 07/31. Continue home inhalers. 2. Dysphagia secondary to achalasia ? GI followed. Speech therapy followed. Patient with concerns for dysphagia onadmit and CT scan showed esophageal contents on presentation. Patient had significant esophageal secretions with intubation on admit as above. 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 Unfortunately despite dilation with EGD, patientwas still unable to manage secretions and maintain p.o. intake safely so PEG tube was placed on 07/29. Tube feeds increased to goal by 07/31 and patient tolerating without issue. Patient with some improvement by discharge, okay for me full mildly/nectar thick liquid diet with one-to-one supervision. Will continue tube feeds on discharge to allow patient to meet caloric goals. Will need continued speech therapy on discharge. 3. New onset A-fib with RVR, improved ? Patient went into A-fib with RVR early on in the hospitalization requiring amiodarone drip and anticoagulation. Echo showed stage I diastolic dysfunction,EF 70%, monitor enlargement of left atrium, no significant valvular abnormalities. Patient was transition to amiodarone and metoprolol through the G-tube. Heart rate slightly elevated to the 110s to low 120s on 07/31 so metoprolol increased to 25 mg twice daily, then further uptitrated to 50 mg twice daily on 08/01. Heart rate remained much improved with this uptitration. Continue Eliquis that was started during this hospitalization. 4. Acute on chronic HFpEF, resolved ? CTA chest on admit with bilateral pleural effusions and echo with stage I diastolic dysfunction as above. Diuresed well during hospitalization. Euvolemic as of 07/31, no need for further diuretics. 5. Acute on chronic debility with recent mechanical fall ? PT/OT/case management followed. Patient lives at home alone, daughter lives close by. Patient with significant deconditioning during this prolonged hospitalization. Medically ready for discharge on 08/01, discharged to SNF in stable condition on 08/05. 6. BENITO on CKD3b, resolved ? Baseline creatinine appears to be around 1.4-1.6. Creatinine peaked at 2.59 during hospitalization, improved back to baseline by 07/31. Chronic medical conditions: ? Type 2 diabetes mellitus: Has had issues with intermittent hypoglycemia duringhospitalization but blood sugars improved with tube feeds uptitrated to goal. Continue sliding scale insulin every 6 hours. Will plan to resume home glimepiride and pioglitazone on discharge. ? History of CVA, hypertension, hyperlipidemia: Continue losartan and metoprolol. On Eliquis as above. ? Anxiety/depression: Continue home venlafaxine and bupropion. ? Chronic anemia: Hemoglobin stable at baseline around 9 during hospitalization. Total clinical time spent by myself addressing the patient's medical issues, reviewing all the data, and collaborating with patient's care team: 42 minutes. Physical Exam Const alert, oriented x3, no apparent distress and average body habitus Constitutional Narrative: Pleasant elderly female, mildly fatigued appearing, otherwise sitting back comfortably in bed, conversing normally, in no acute distress. Stable. General Appearance: cooperative and comfortable HEENT normocephalic, head/scalp atraumatic, hearing grossly normal bilaterally, nasal mucous membranes and turbinates normal and moist oral mucous membranes Eyes PERRL, EOMs intact bilaterally and conjunctivae normal Neck full ROM Chest inspection of chest normal Resp normal respiratory effort, normal air movement, no use of accessory muscles and clear to auscultation bilaterally Cardio regular rate, regular rhythm, no murmurs and peripheral pulses 2+ throughout GI normal to inspection, nondistended, normoactive bowel sounds, soft to palpation,non-tender and non-distended GI Narrative: PEG tube in place, site appears clean and dry. Back/Spine normal ROM Extremity normal to inspection, full ROM and no pedal edema Skin no rashes or lesions noted Psych mental status grossly normal Weight / BMI Weight Weight: 83.8 kg Body Mass Index (BMI) 28.9 ABG / Lab / Microbiology Data 08/05/25 08:15 08/05/25 08:15 Laboratory: Laboratory Results - last 24 hr 08/04/25 08:59: POC Glucose 349 H 08/04/25 16:51: POC Glucose 167 H 08/04/25 23:19: POC Glucose 288 H 08/05/25 05:43: POC Glucose 199 H 08/05/25 08:15: WBC 8.8, RBC 2.67 L, Hgb 8.1 L, Hct 26.2 L, MCV 98.1, MCH 30.3, MCHC 30.9 L, RDW Std Deviation 50.6 H, RDW Coeff of Tessa 14.3, Plt Count 211, MPV10.2, Sodium 134, Potassium 5.5 H, Chloride 99, Carbon Dioxide 27.7, Anion Gap 7, BUN 28 H, Creatinine 1.60 H, Estim Creat Clear Calc 31.72 L, Est GFR (MDRD) Non-Af 33 L, BUN/Creatinine Ratio 17.4, Glucose 270 H, Calcium 8.2 08/05/25 12:09: POC Glucose 325 H Microbiology: Microbiology 07/22/25 12:32 Blood Culture (Wb) - Anticubital Left Blood Culture - Final No growth in 5 days. 07/22/25 12:32 Blood Culture (Wb) - Anticubital Right Blood Culture - Final No growth in 5 days. 07/22/25 22:05 Sputum, Induced/Lukens Gram Stain - Final 07/22/25 22:05 Sputum, Induced/Lukens Respiratory Culture - Final Mixed normal respiratory michelle. No Streptococcus pneumoniae, beta-hemolytic Streptococcus or Staphylococcus aureus isolated. 07/22/25 13:09 Urine, Catheterized Urine Culture - Final Culture exhibits no growth. 07/22/25 20:49 Mucosa - Nasopharyngeal Respiratory Panel (PCR) - Final 07/22/25 12:30 Mucosa - Nose SARS-CoV-2, Influenza & RSV (PCR) - Final D/C Instructions DC O2, CPAP, BIPAP Needs Home O2 Discharge instructions: Yes Type of respiratory needs?: Oxygen (4) Oxygen frequency: Continuous Continuous oxygen liters per minute: 4 DC home with Oxygen: No Meaningful Use Info Meaningful Use Meaningful Use Diagnoses (Choose all that apply): None applicable Discharge Plan Admission Admit Date/Time: 07/22/25 17:16 Primary Reason for Your Visit: Shortness of breath Attending Provider: Antoni Argueta Primary Care Provider: TAYLOR TAYLOR Consulting Providers: Bulmaro Gandara; Kamron Nguyen; Doris Jeffries; Karlee Rodriguez; Shelby Dumont; Antoni Argueta; Ying Jay; Jonel Lorenzo; Gena Porter Discharge Orders/Prescriptions Prescriptions: New amiodarone 200 mg Tablet 200 mg G-tube BID 30 Days Qty: 60 0RF bupropion HCl 100 mg Tablet 100 mg G-tube TID 30 Days Qty: 90 0RF metoprolol tartrate 50 mg Tablet 50 mg G-tube BID 30 Days Qty: 60 0RF oxycodone 20 mg/mL Concentrate 5 mg PO BID PRN PRN (Reason: Pain Score 6-10) 30 Days Qty: 0 0RF Eliquis 5 mg Tablet 5 mg G-tube BID 30 Days Qty: 60 0RF IV with Additives Jevity 1.5 1000 ML 40 mls/hr GT Ordered By: Antoni Argueta DO Last Taken: 08/05/25 02:14 40 mls/hr Continued glimepiride 2 mg tablet 2 mg PO BID lovastatin 40 MG tablet 40 mg PO QHS Patient Comments: REDUCES CHOLESTEROL cyanocobalamin (vitamin B-12) [Vitamin B-12] 1,000 MCG tablet 1,000 mg PO DAILY Patient Comments: VITAMIN SUPPLEMENT trazodone 150 MG tablet 150 mg PO QHS Patient Comments: SLEEP montelukast 10 MG tablet 10 mg PO DAILY Patient Comments: ALLERGIES albuterol sulfate [Ventolin HFA] 1 INHALER inhaler 1 - 2 puff inhalation Q4H PRN PRN (Reason: Sob &/Or Wheezing) Qty: 1 0RF pioglitazone 30 MG tablet 30 mg PO DAILY@0800 esomeprazole magnesium 40 mg capsule,delayed release(DR/EC) 40 mg PO DAILY aripiprazole 10 mg tablet 10 mg PO DAILY losartan 50 mg tablet 50 mg PO DAILY Qty: 30 1RF OXYGEN - Supplemental ([facility] INFORMATIONAL USE ONLY) Patient Comments: per CM noted, [facility] through [place], current orders are 4 l/m continuous cholecalciferol (vitamin D3) 125 mcg (5,000 unit) capsule 125 mcg PO DAILY Changed ferrous sulfate 325 mg (65 mg iron) tablet 325 mg PO DAILY 30 Days Qty: 30 0RF Discontinued bupropion HCl 150 MG tablet sustained-release 12 hr 150 mg PO BID Patient Comments: DEPRESSION venlafaxine 150 MG capsule,extended release 24hr 150 mg PO DAILY Patient Comments: MOOD aspirin 81 MG tablet,chewable 81 mg PO DAILY@0800 Patient Comments: HEALTH MAINTENANCE bisoprolol fumarate 5 mg tablet 5 mg PO DINNER oxycodone-acetaminophen 5-325 mg tablet 1 tab PO Q12H PRN (Reason: back pain) Patient Comments: TAKE 1 TABLET BY MOUTH EVERY 12 HOURS NEEDED FOR PAIN FOR 30 DAYS Referrals / Follow Up: Danilo Oneill DO [Non-Staff, Family Practice] TAYLOR TAYLOR NP-C [Primary Care Provider, [facility]] Disposition Disposition (needs filled in before D/C Order can be placed): [facility] Charges/Coding Visit Charges Inpatient E&M: 29192 Disch Hosp >30min 08/05/25 1402 <Electronically signed by Antoni Argueta DO> Cosigner Signature (if applicable): CC: LILI TAYLOR; Dr. Antoni Argueta DO~ Signed [facility] Work Phone: Evaluation + Plan note Future Appointments Appointment Date:06/30/2024 01:00:00 PM Scheduled Provider:TAYLOR TAYLOR Location:[facility] Appointment Type: OV Appointment Date:08/24/2024 01:30:00 PM Scheduled Provider:DANILO ONEILL DO Location:[facility] Appointment Type: OV [facility] Evaluation + Plan note Future Appointments Appointment Date:11/14/2025 11:00:00 AM Scheduled Provider:TAYLOR TAYLOR Location:[facility] Appointment Type: OV Future Scheduled Tests Laboratory* Vitamin B12 Level 11/16/25 * A1C Hemoglobin 11/16/25 * Complete Blood Count 11/16/25 * Lipid Profile 11/16/25 * Albumin/Creatinine Ratio, Random Urine 11/16/25 * Vitamin D Level 11/16/25 * Complete Metabolic Panel 11/16/25 Radiology* CT Low Dose Lung Cancer Screening (LDCT) 05/16/25 [facility] evaluation note* Diagnosis Onset Date Resolution Status Ankle pain, left acute Closed left trimalleolar fracture acute Diabetes mellitus chronic [facility] Work Phone: evaluation note* Diagnosis Onset Date Resolution Status Ankle pain, left acute Closed left trimalleolar fracture acute Hyperkalemia acute Trimalleolar fracture of ankle, closed acute Diabetes mellitus chronic Hypertension [facility] Work Phone: evaluation note* Diagnosis Onset Date Resolution Status Chronic kidney disease, stage 3b acute Debility acute Depression acute Diabetes mellitus acute [id number] acute Gastroesophageal reflux disease acute Hyperlipidemia acute Insomnia acute Iron deficiency anemia acute Stroke acute Vitamin B12 deficiency acute Chronic obstructive pulmonary disease chronic Acute kidney injury resolved Ankle pain, left resolved Hyperkalemia resolved Trimalleolar fracture of ankle, closed resolved [facility] Work Phone: evaluation noteNo assessment information available [facility] Work Phone: evalurgkkp note* Diagnosis Onset Date Resolution Status Acute kidney injury acute Community acquired pneumonia acute Diabetes mellitus acute Hypoxia acute Sepsis acute Acute exacerbation of chroni c obstructive pulmonary disease chronic [facility] Work Phone: evaluation note* Diagnosis Onset Date Resolution Status Hypoxia acute Acute exacerbation of chroni c obstructive pulmonary disease resolved Acute kidney injury resolved Community acquired pneumonia resolved Sepsis resolved [facility] Work Phone: evaluation note* Diagnosis Onset Date Resolution Status Admit Date Achalasia acute 2025 5:16pm Dysphagia acute 2025 5:16pm Esophageal dysmotility acute Oc tob2024 5:16pm Gastroesophageal reflux disease acut e 2025 5:16pm Paroxysmal atrial fibrillati on with RVR acute July 22 5:16pm Stroke acute 2025 5:16pm Acute on chronic respiratory failure with hypoxia and hypercapnia chronic July 22 5:16pm [facility] Work Phone: Hospital course Narrative No data available for this section [facility] Work Phone: Hospital Discharge instructions Additional Instructions Rest, ice, elevate your leg to decrease swelling. You can keep it compressed with Jorge Luis bandage. Follow-up with your orthopedic doctor and take your pain meds at home.[facility] Work Phone: Hospital Discharge instructions No data available for this section [facility] Hospital Discharge instructionsAdditional Instructions Date of Discharge: [facility] Work Phone: Progress note No data available for this section [facility] Progress note Author Antoni Argueta [facility] Note Date/Time 2025 1 0:10pm [facility] Medical Records Department [address] [place] [address] Progress Note - Hospitalist 07/22/252204 MR#: [id number] Acct: [id number] Name: WING LIN Rep #:[id number] : 1945 80 From: Antoni Menjivar rosalba BURROWS PCP: LILI STOREY Status:ADM IN Location: ICU ICU03-1 Hospitalist Note Called to patient bedside around 9 PM by nursing staff and respiratory therapy. Patient had been on 4 L nasal cannula for period of time but developed increasedwork of breathing and stridor. On my evaluation, patient had significant rhonchorous breath sounds noted in the upper airways. On further chart review, I suspect that the significant contents in her esophagus are exerting pressure on the airway. Patient was placed back on BiPAP and had some improvement in work of breathing but continued to have stridorous breath sounds. Given these findings, decision was made to move patient up to the ICU and proceed with endotracheal intubation for airway protection and for acute respiratory distress. I obtained consent from the patient at the bedside. I also spoke with patient's daughter Michelle over the phone prior to the intubation. Patient was noted to have significant secretions during intubation presume secondary to esophagus contents. OGT was placed after intubation and set to suction with adequate removal of esophageal contents. See intubation note for further details. 07/22/252209 <Electronically signed by Antoni Argueta DO> Cosigner Signature (if applicable): CC: ~ Signed [facility] Work Phone: P[employer] note Author Doris Jeffries [facility] Note Date/Time 2025 1 1:35pm [facility] Medical Records Department [address] [place] [address] Progress Note - Hospitalist 07/22/252330 MR#: [id number] Acct: [id number] Name: WING LIN Rep #:[id number] : 1945 80 From: Doris Lagos P-Eddie PCP: LILI STOREY Status:ADM IN Location: ICU ICU03-1 Hospitalist Note OGT placed using Glidescope to measured depth. CXR/KUB demonstrated tip in distal esophagus, advised nrsg staff to advance and repeat KUB. Repeat KUB demonstrated OGT at GEJ, with side port within esophagus. Posterior oropharynx visualized with light and tongue depression, no coiling of OGT noted.Suspect OGT is possibly coiled within the esophagus prior to reaching GEJ. Advised nrsg staff to leave OGT clamped at this time. 07/22/252334 <Electronically signed by Doris BAC> Cosigner Signature (if applicable): CC: ~ Signed [facility] Work Phone: Projuhep note Author Ying Jay [facility] Note Date/Time July 23, 2025 1 1:24am [facility] Medical Records Department [address] [place] [address] Progress Note - Hospitalist 07/23/25651 MR#: [id number] Acct: [id number] Name: WING LIN Rep #:[id number] : 1945 80 From: Ying Jay DO PCP: LILI STOREY Status:ADM IN Location: ICU ICU03-1 Reason for Visit Chief Complaint: Worsening shortness of breath Subjective Subjective No issues overnight. FiO2 is 30%. CT of the chest does show dilated esophagus with ingested material consistent with GERD. I am concerned for esophageal stricture/narrowing/malignancy and GI is consulted. We were not able to pass her OG as it was continually getting coiled in the esophagus. Objective Data Objective Data Vital Signs: Vital Signs Temp Pulse Resp BP Pulse Ox O2 Del Method O2 Flow Rate 96.5 F L 81 16 140/62 H 95 Mechanical Ventilator 4 07/23/25 04:00 07/23/25 06:00 07/23/25 06:00 07/23/25 06:00 07/23/25 06:00 07/23/25 06:00 07/22/25 21:16 FiO2 30 07/23/25 06:00 Oxygen Flow Rate (L/min) 4 Oxygen Delivery Method Mechanical Ventilator Weight: 83 kg Body Mass Index (BMI) 28.7 Intake & Output: Intake and Output for Last 24 Hours 07/21/25 07/22/25 07/23/25 23:59 23:59 23:59 Intake Total 419.85 / 426.08 163.73 / 163.73 Output Total 925 / 925 Balance 419.85 / -148.92 -761.27 / -761.27 Lab / Micro Data 07/23/25 04:50 07/23/25 04:50 Labs: Laboratory Results - last 24 hr 07/22/25 12:32: WBC 17.0 H, RBC 2.90 L, Hgb 9.1 L, Hct 28.8 L, MCV 99.3 H, MCH 31.4, MCHC 31.6 L, RDW Std Deviation 49.3 H, RDW Coeff of Tessa 13.5, Plt Count 230, MPV 9.4, Immature Gran % (Auto) 1.000 H, Neut % (Auto) 87.3 H, Lymph % (Auto) 4.4 L, Travis % (Auto) 6.7, Eos % (Auto) 0.4, Baso % (Auto) 0.2, Absolute Neuts (auto) 14.8 H, Absolute Lymphs (auto) 0.75 L, Nucleated RBC % 0, Sodium 133, Potassium 5.4 H, Chloride 102, Carbon Dioxide 19.0 L, Anion Gap 12, BUN 50 H, Creatinine 2.04 H, Estim Creat Clear Calc 24.23 L, Est GFR (MDRD) Non-Af 24 L, BUN/Creatinine Ratio 24.5 H, Glucose 232 H, Hemoglobin A1c 6.4 H, Lactic Acid < 1.0, Calcium 8.6, Total Bilirubin 0.40, AST 55 H, ALT 30, Alkaline [id number] H, Troponin T High Sens 40 H, NT pro BNP II 5405 H, Total Protein 7.1, Albumin 3.3 L, Globulin 3.9, Albumin/Globulin Ratio 0.8 L 07/22/25 13:09: Urine Color Yellow, Urine Clarity Clear, Urine pH 6.0, Ur Specific [place] 1.015, Urine Protein 100 H, Urine Glucose (UA) Normal, Urine Ketones Negative, Urine Occult Blood 10 H, Urine Nitrite Negative, Urine Bilirubin Negative, Urine Urobilinogen 1 H, Ur Leukocyte Esterase 25 H, Urine RBC 0 SEEN, Urine WBC 0 SEEN, Ur Squamous Epith Cells 0 SEEN, Urine Bacteria 0 SEEN, Urine Mucus 0 SEEN 07/22/25 15:23: Troponin T Hi Sens 2 Hr 39 H 07/22/25 16:33: Troponin T Hi Sens 4Hr 38 H, Procalcitonin 0.68 H 07/23/25 00:08: POC Glucose 320 H 07/23/25 04:50: WBC 15.9 H, RBC 3.09 L, Hgb 9.4 L, Hct 29.4 L, MCV 95.1, MCH 30.4, MCHC 32.0, RDW Std Deviation 46.9 H, RDW Coeff of Tessa 13.5, Plt Count 254,MPV 9.6, Sodium 134, Potassium 5.0, Chloride 100, Carbon Dioxide 17.6 L, Anion Gap 16 H, BUN 58 H, Creatinine 2.18 H, Estim Creat Clear Calc 23.18 L, Est GFR (MDRD) Non-Af 22 L, BUN/Creatinine Ratio 26.7 H, Glucose 362 H, Calcium 8.7, Total Creatine Kinase 33, Triglycerides 78 Micro: Microbiology 07/22/25 12:30 Mucosa - Nose SARS-CoV-2, Influenza & RSV (PCR) - Final ABG Data ABG results: ABG 07/22/25 07/22/25 07/22/25 12:43 13:27 23:34 Specimen Type SARAH ART ART Sample Site L Radial R Brach L Radial pH 7.18 L* 7.31 L 7.41 Bicarbonate Actual 21.7 L 20.0 L 20.4 L Total CO2 24 21 21 Base Excess -7 L -6 L -4 L O2 Saturation 83 L 95 99 O2 % 45.0 40.0 50.0 ABG pCO2 58.7 H 39.6 32.4 L ABG pO2 60 L 82 151 H Miranda Test Positive N/A Respiration Rate 16 O2 Delivery Device BiPAP BiPAP Adult Vent Vent Mode Not entered Not entered AC Tidal Volume 400.0 POC PEEP 10 Crit Call To/Read Back Yes Blood Gas Notified Whom DR. RAYMOND Clinical Comments 15 6 15 6 Radiography Diagnostic Testing: Radiology Impression Chest X-Ray 07/22/25 12:17 IMPRESSION: Findings in the mid and lower right lung suggesting possible pneumonia, with possible underlying fibrosis/scarring. Follow-up PA and lateral chest exam is recommended. Scarring versus small effusion the in the lateral left lung base. Tortuous calcific aortic atherosclerosis. Reading [facility] Chest CTA 07/22/25 14:28 IMPRESSION: Cardiomegaly and bilateral pleural effusions may be suggestive of CHF. Airspaceopacities in the lower lungs may represent atelectasis or pneumonia. Dilated esophagus with ingested material consistent with gastroesophageal reflux. Follow-up with outpatient barium swallow can be helpful for further evaluation. No evidence of pulmonary embolism. Reading Location: [facility] Soft Tissue Neck CT 07/22/25 14:28 IMPRESSION: 1. No acute or active inflammatory process identified in the neck. 2. No neck mass or cervical lymphadenopathy. 3. Fluid and air-filled dilatation of the visualized esophagus, may reflect achalasia. 4. Mild-moderate biapical pulmonary emphysema. 8 mm nodule in the left upper lobe. Multiple nonspecific enlarged upper mediastinal lymph nodes; see separate CT thorax report. 5. Multiple small subcentimeter thyroid nodules/cysts. Reading Location: [id number] Chest X-Ray 07/22/25 22:05 IMPRESSION: As above. Reading Location: [facility] Chest X-Ray 07/22/25 23:10 IMPRESSION: Improperly positioned orogastric tube. Reading Location: [address] Physical Exam Const no apparent distress Constitutional Narrative: Elderly, white female, lying in bed, intubated and sedated, on ventilator, appears comfortable, does not look toxic HEENT head/scalp atraumatic HEENT Narrative: ET tube and OG are in place Head and Scalp: normocephalic Eyes Eyes Narrative: Pupils are pinpoint from fentanyl Neck supple Neck Narrative: Trachea is midline Resp no retractions, no use of accessory muscles and No clear to auscultation bilaterally Resp Narrative: Diminished with few crackles at bases bilaterally, currently on a ventilator Auscultation: crackles; Negative for rhonchi or wheezes Cardio regular rate, regular rhythm, S1 normal heart sound, S2 normal heart sound, no murmurs, no rub, no gallops and no clicks GI normal to inspection, nondistended, normoactive bowel sounds, soft to palpation and non-tender Extremity no clubbing, cyanosis or edema Extremity Narrative: 2+ pedal and radial pulses Neuro Neuro Narrative: Patient is intubated and sedated Psych Psych Narrative: Unable to assess as patient is intubated and sedated, currently calm on sedation Assessment & Plan Assessment/Plan (1) Acute on chronic respiratory failure with hypoxia and hypercapnia: (2) Dysphagia: (3) Esophageal dysmotility: PLAN: Plan Acute on chronic hypoxic and hypercapnic respiratory failure-multifactorial - Initially admitted to PCU on BiPAP but ABG showed significant respiratory distress and she required intubation - Procalcitonin is slightly elevated so there is concern for aspiration pneumonia in conjunction with findings on CT of the chest - Currently intubated sedated with intubation on 2025 - Also seems to have some pulmonary edema with an elevated BNP at 5405 - Patient oxygen dependent due to COPD at baseline on 4 L - Continue scheduled DuoNebs - Continue IV steroids - Continue Zosyn - Continue Lasix - Echocardiogram is pending - Sputum, blood, and urine cultures are pending - Respiratory viral panel and COVID/flu/RSV are all negative - Pulm critical care is following Dysphagia/concern for achalasia/GERD - GI consulted as patient was noted to have air-fluid levels in the esophagus onthe CT of her chest with subsequent suspected aspiration pneumonia as part of her respiratory failure etiology - Will need EGD - Continue PPI as ordered - Speech therapy to evaluate once extubated Hyperkalemia - Resolved Elevated serum creatinine on CKD stage IIIb - Serum creatinine on presentation was 2.06 and baseline appears to be between 1.7-1.9 recently - Serum creatinine 2.04 on admission and 2.18 today - Continue to monitor - Avoid nephrotoxins as able - Continue to monitor closely Anion gap metabolic acidosis - Was normal on presentation - Patient not on Jardiance or Farxiga - If patient with acidosis on ABG will assess lactate and beta hydroxybutyrate as blood sugar is elevated however highly doubt DKA - If ABG is unremarkable will obtain repeat lab in a.m. without further workup - question if this is a spurious lab finding Acute on chronic debility with recent mechanical fall - Patient lives alone at baseline but daughter lives close - Patient has had issues with movement since her fall 2 weeks ago - PT/OT is consulted - Case management/social work consultation for assistance with discharge planning Chronic normocytic anemia -Restart home iron supplementation -Hemoglobin remained stable and in her baseline of 9-10 -Continue to monitor Chronic hypoxic respiratory failure secondary to COPD -Baseline dependence on 4 L continuous -Hold home inhalers -Continue budesonide therapy -As needed albuterol -I-S -Continue Singulair Allergic rhinitis -Continue home Singulair History of stroke/TIA -Continue aspirin Hyperlipidemia -Continue statin Hypertension - Continue home antihypertensives - As needed hydralazine DM-2 - On orals at baseline-hold - A1c is 6.4 - Blood sugars markedly elevated due to steroid use so we will add basal [id number] units - continue sliding scale but increase to high-dose sliding scale - Accu-Cheks and SSI ordered every 6 for now Depression/anxiety - Continue home medications History of tobacco abuse - Remote - Continue ongoing cessation DVT prophylaxis - Continue subcu heparin CODE STATUS - Full Code Charges/Coding Visit Charges Inpatient E&M: 83227 Subs Hosp L2 07/23/25 1124 <Electronically signed by Ying Jay DO> Cosigner Signature (if applicable): CC: ~ Signed [facility] Work Phone: Progress note Author Georges Duque [facility] Note Date/Time July 23, 2025 1 :29pm [facility] Medical Records Department [address] [facility] [place] [address] Progress Note - Integrated Pest Management Technician 07/23/25 1327 MR#: [id number] Acct: [id number] Name: WING LIN Rep #:[id number] : [id number] 80 From: Georges Arcos PCP: LILI STOREY Status:ADM IN Location: ICU ICU03-1 Objective Data Objective Data Vital Signs: Vital Signs Last response 3 Temperature 35.8 C L 07/23/25 12:00 Temperature Source Core 07/23/25 12:00 Pulse Rate 70 07/23/25 12:29 Pulse Strength Normal (2+) 07/23/25 10:00 Respiratory Rate 16 07/23/25 12:29 Respiratory Effort Mechanically Ventilated 07/23/25 08:00 Respiratory Depth Normal 07/23/25 08:00 Respiratory Pattern Normal 07/23/25 12:29 Blood Pressure 118/52 L 07/23/25 12:00 Blood Pressure Mean 74 07/23/25 12:00 Blood Pressure Source Monitor 07/23/25 12:00 Blood Pressure Position Semi-Fowlers 07/23/25 12:00 Blood Pressure Location Right Arm 07/23/25 12:00 Pulse Ox 96 07/23/25 12:29 Oxygen Delivery Method Mechanical Ventilator 07/23/25 12:00 Oxygen Flow Rate (L/min) 4 07/22/25 21:16 Fraction of Inspired Oxygen (FIO2) 30 07/23/25 12:00 I&O: I&O Last 24 Hours 3 07/22/25 07/23/25 07/23/25 23:59 11:59 23:59 Intake Total 419.85 / 426.08 397.84 / 415.24 17.4 / 415.24 Output Total 925 / 925 Balance 419.85 / -148.92 -527.16 / -509.76 17.4 / -509.76 I&O: Total Stay 3 07/22/25 12:11 thru 07/23/25 12:00 Intake Total 835.09 Output Total 925 Balance -89.91 Current Meds Ordered / Administered: Current meds ordered / Administered 3 Generic Name Dose Route Start Last Admin Trade Name Freq PRN Reason Stop Dose Admin Acetaminophen 650 mg 07/22/25 18:32 Acetaminophen 325 Mg Tablet PO Q6H PRN PRN Pain 1-10 Or Fever>100.7 Albuterol/Ipratropium 3 ml 07/22/25 18:32 07/23/25 12:29 Ipratropium/Albuterol Sulfate 3 Ml Ampul.Neb INHALATION 3 ml Q6HWA.RT REG Administration Aripiprazole 10 mg 07/23/25 10:00 07/23/25 10:19 Aripiprazole 10 Mg Tablet PO Not Given DAILY [facility] Protocol Aspirin 81 mg 07/23/25 08:00 07/23/25 08:21 Aspirin 81 Mg Tab.Chew PO Not Given DAILY@0800 [facility] Atorvastatin Calcium 10 mg 07/22/25 22:00 07/23/25 00:12 Atorvastatin Calcium 10 Mg Tablet PO Not Given QHS [facility] Bisoprolol Fumarate 5 mg 07/23/25 17:00 Bisoprolol Fumarate 5 Mg Tablet PO DINNER [facility] Bupropion HCl 150 mg 07/22/25 22:00 07/23/25 10:22 Bupropion (Sr) 150 Mg Tablet.Sa PO Not Given BID [facility] Chlorhexidine Gluconate 15 ml 07/22/25 22:00 07/23/25 08:27 Chlorhexidine 15 Ml PO 15 ml BID REG Administration Cholecalciferol 125 mcg 07/24/25 10:00 Cholecalciferol (Vit D3) 125 Mcg Capsule (5,000 Units) PO DAILY [facility] Cyanocobalamin 1,000 mcg 07/23/25 10:00 07/23/25 10:22 Cyanocobalamin 500 Mcg Tablet PO Not Given DAILY [facility] Fentanyl Citrate 50 mcg 07/22/25 21:59 Fentanyl 100 Mcg/2 Ml Ampul IV Q2H PRN PRN Pain >/= 4/10 or CPOT>/= 3/8 Ferrous Sulfate 325 mg 07/23/25 12:00 07/23/25 11:45 Ferrous Sulfate 325 Mg Tablet PO Not Given 1200,1700 REG Furosemide 40 mg 07/22/25 18:32 07/23/25 10:23 Furosemide 40 Mg/4 Ml Vial IV 40 mg [id number] REG Administration Protocol Glucagon 1 mg 07/22/25 21:04 Glucagon 1 Mg/Ml Syringe IM X1 PRN Hypoglycemia Protocol Heparin Sodium (Porcine) 5,000 unit 07/22/25 22:00 07/23/25 06:12 Heparin Injection (Vial) 5,000 Unit/Ml Vial SC 5,000 unit Q8 REG Administration Hydralazine HCl 10 mg 07/22/25 21:08 Hydralazine 20 Mg/Ml Vial IV Q4H PRN PRN SBP GREATER THAN 170 Protocol Sodium Chloride 250 mls @ 15 mls/hr 07/22/25 18:33 IV .[id number] PRN Saline Flush Sodium Chloride 250 mls @ 15 mls/hr 07/22/25 18:33 IV .[id number] PRN Additional IVPB Infusion Piperacillin Sod/Tazobactam 50 mls @ 12.5 mls/hr 07/22/25 22:00 07/23/25 10:28 Sod 3.375 gm/ Sodium Chloride IV Infused Q8 REG Infusion Dextrose 250 mls @ 0 mls/hr 07/22/25 21:04 Dextrose 10%-Water IV .Q0M PRN HYPOGLYCEMIA Protocol As Directed Pantoprazole Sodium 40 mg/ 100 mls @ 300 mls/hr 07/22/25 21:05 07/23/25 11:51 Sodium Chloride IV Infused Q24 REG Infusion Propofol 1,000 mg in 100 mls @ 4.97 mls/hr 07/22/25 22:00 07/23/25 12:00 Diprivan CONT INF 25 mcg/kg/min .Q12H REG 12.4 mls/hr Protocol Titration 10 MCG/KG/MIN Fentanyl 100 mls @ 2.5 mls/hr 07/22/25 22:55 07/23/25 12:00 CONT INF 50 mcg/hr UD REG 5 mls/hr Protocol Titration 25 MCG/HR Influenza Virus Vaccine 180 mcg 07/25/25 10:00 Flu Vaccine High Dose 25-26(65yr Up) 180 Mcg/0.5 Ml Syringe IM 07/25/25 10:01 .ONCE ONE Insulin Glargine 15 unit 07/23/25 11:15 07/23/25 12:54 Insulin Glargine-Yfgn 100 Unit/Ml Pen SC 15 unit DAILY [facility] Administration Insulin Human Lispro 0 unit 07/23/25 12:00 07/23/25 12:21 Insulin Lispro 100 Unit/Ml Insuln.Pen SC Not Given Q6 [facility] Protocol Losartan Potassium 50 mg 07/23/25 10:00 07/23/25 10:20 Losartan Potassium 50 Mg Tablet PO Not Given DAILY [facility] Protocol Methylprednisolone Sodium Succinate 40 mg 07/23/25 06:00 07/23/25 06:13 Methylprednisolone Sod Succ 40 Mg/Ml Vial IV 40 mg Q8 [facility] Administration Montelukast Sodium 10 mg 07/23/25 10:00 07/23/25 10:21 Montelukast 10 Mg Tablet PO Not Given DAILY [facility] Nystatin 1 applic 07/22/25 22:00 07/23/25 10:28 Nystatin Powder 15gm Bottle TOPICAL 1 applic BID [facility] Administration Protocol Ondansetron HCl 4 mg 07/22/25 18:32 Ondansetron 4 Mg/2 Ml Vial IV Q8H PRN PRN NAUSEA/VOMITING Sodium Chloride 10 - 40 ml 07/22/25 18:33 07/23/25 00:20 0.9% Saline Lock 10 Ml Syringe IV 30 ml UD PRN Administration SALINE FLUSH Trazodone HCl 150 mg 07/22/25 21:08 Trazodone 50 Mg Tablet PO QHS PRN sleep Venlafaxine HCl 150 mg 07/23/25 10:00 07/23/25 10:21 Venlafaxine Xr 150 Mg Capsule PO Not Given DAILY [facility] Lab / Micro Data 07/23/25 04:50 07/23/25 04:50 Labs: Laboratory Results - last 24 hr 07/22/25 12:32: Hemoglobin A1c 6.4 H 07/22/25 13:09: Urine Color Yellow, Urine Clarity Clear, Urine pH 6.0, Ur Specific [place] 1.015, Urine Protein 100 H, Urine Glucose (UA) Normal, Urine Ketones Negative, Urine Occult Blood 10 H, Urine Nitrite Negative, Urine Bilirubin Negative, Urine Urobilinogen 1 H, Ur Leukocyte Esterase 25 H, Urine RBC 0 SEEN, Urine WBC 0 SEEN, Ur Squamous Epith Cells 0 SEEN, Urine Bacteria 0 SEEN, Urine Mucus 0 SEEN 07/22/25 15:23: Troponin T Hi Sens 2 Hr 39 H 07/22/25 16:33: Troponin T Hi Sens 4Hr 38 H, Procalcitonin 0.68 H 07/23/25 00:08: POC Glucose 320 H 07/23/25 04:50: WBC 15.9 H, RBC 3.09 L, Hgb 9.4 L, Hct 29.4 L, MCV 95.1, MCH 30.4, MCHC 32.0, RDW Std Deviation 46.9 H, RDW Coeff of Tessa 13.5, Plt Count 254,MPV 9.6, Sodium 134, Potassium 5.0, Chloride 100, Carbon Dioxide 17.6 L, Anion Gap 16 H, BUN 58 H, Creatinine 2.18 H, Estim Creat Clear Calc 23.18 L, Est GFR (MDRD) Non-Af 22 L, BUN/Creatinine Ratio 26.7 H, Glucose 362 H, Calcium 8.7, Total Creatine Kinase 33, Triglycerides 78 07/23/25 08:24: POC Glucose 313 H 07/23/25 11:27: POC Glucose 246 H Micro: Microbiology 07/22/25 20:49 Mucosa - Nasopharyngeal Respiratory Panel (PCR) - Final 07/22/25 12:30 Mucosa - Nose SARS-CoV-2, Influenza & RSV (PCR) - Final ABG Data ABG results: ABG 07/22/25 07/22/25 07/22/25 12:43 13:27 23:34 Specimen Type SARAH ART ART Sample Site R Brach L Radial pH 7.31 L 7.41 Bicarbonate Actual 20.0 L 20.4 L Total CO2 21 21 Base Excess -6 L -4 L O2 Saturation 95 99 O2 % 40.0 50.0 ABG pCO2 39.6 32.4 L ABG pO2 82 151 H Miranda Test N/A Respiration Rate 16 O2 Delivery Device BiPAP Adult Vent Vent Mode Not entered AC Tidal Volume 400.0 POC PEEP 10 Blood Gas Notified Whom DR. RAYMOND Clinical Comments 15 6 07/23/25 12:41 Specimen Type ART Sample Site L Radial pH 7.36 Bicarbonate Actual 22.0 Total CO2 23 Base Excess -4 L O2 Saturation 96 O2 % 30.0 ABG pCO2 39.2 ABG pO2 84 Miranda Test Respiration Rate 16 O2 Delivery Device Adult Vent Vent Mode AC Tidal Volume 400.0 POC PEEP 5 Blood Gas Notified Whom Clinical Comments Imaging Radiology Impression Chest CTA 07/22/25 14:28 IMPRESSION: Cardiomegaly and bilateral pleural effusions may be suggestive of CHF. Airspaceopacities in the lower lungs may represent atelectasis or pneumonia. Dilated esophagus with ingested material consistent with gastroesophageal reflux. Follow-up with outpatient barium swallow can be helpful for further evaluation. No evidence of pulmonary embolism. Reading Location: [facility] Soft Tissue Neck CT 07/22/25 14:28 IMPRESSION: 1. No acute or active inflammatory process identified in the neck. 2. No neck mass or cervical lymphadenopathy. 3. Fluid and air-filled dilatation of the visualized esophagus, may reflect achalasia. 4. Mild-moderate biapical pulmonary emphysema. 8 mm nodule in the left upper lobe. Multiple nonspecific enlarged upper mediastinal lymph nodes; see separate CT thorax report. 5. Multiple small subcentimeter thyroid nodules/cysts. Reading Location: [facility] Echocardiogram 07/22/25 17:21 Interpretation Summary Technically difficult study. Mild concentric left ventricular hypertrophy. The left ventricular ejection fraction is 70 %. Stage 1 diastolic dysfunction. The left atrium is moderately enlarged. Mild mitral annular calcification. Ordering Physician: Antoni Argueta Performed By: Philippe Dias RCS Chest X-Ray 07/22/25 22:05 IMPRESSION: As above. Reading Location: [facility] Chest X-Ray 07/22/25 23:10 IMPRESSION: Improperly positioned orogastric tube. Reading Location: [address] Assessment and Plan . Assessment and plan: Patient seen and examined Chart and data reviewed She is sedated - NAD HD stable Modest MV requirement Imaging reviewed Difficulty passing OGT into stomach Will plan to leave her sedated w/ MV support in order to facilitate easy EGD whenever planned The entirety of this encounter was done via Telemedicine 07/23/25 1329 <Electronically signed by Georges Duque MD> Cosigner Signature (if applicable): CC: ~ Signed [facility] Work Phone: Progress note Author Ying Jay [facility] Note Date/Time July 24, 2025 1 2:19pm [facility] Medical Records Department [address] [place] [address] Progress Note - Hospitalist 07/24/25 0655 MR#: [id number] Acct: [id number] Name: WING LIN Rep #:[id number] : 1945 80 From: Ying Jay DO PCP: LILI STOREY Status:ADM IN Location: ICU ICU03-1 Reason for Visit Chief Complaint: Worsening shortness of breath Subjective Subjective No specific issues overnight. This morning went into rapid heart rate and EKG shows A-fib with RVR. This is a new diagnosis. Will go ahead and start anticoagulation. Amiodarone drip started Objective Data Objective Data Vital Signs: Vital Signs Temp Pulse Resp BP Pulse Ox O2 Del Method O2 Flow Rate 97.2 F L 84 16 122/56 H 96 Mechanical Ventilator 4 07/24/25 04:00 07/24/25 06:00 07/24/25 06:00 07/24/25 06:00 07/24/25 06:00 07/24/25 06:00 07/22/25 21:16 FiO2 30 07/24/25 06:00 Oxygen Flow Rate (L/min) 4 Oxygen Delivery Method Mechanical Ventilator Weight: 85.8 kg Body Mass Index (BMI) 29.6 Intake & Output: Intake and Output for Last 24 Hours 07/22/25 07/23/25 07/24/25 23:59 23:59 23:59 Intake Total 419.85 / 426.08 656.64 / 674.04 171.8 / 171.8 Output Total 2049 / 2049 350 / 350 Balance 419.85 / -148.92 -1393.36 / -1375.96 -178.2 / -178.2 Lab / Micro Data 07/24/25 11:35 07/24/25 03:44 Labs: Laboratory Results - last 24 hr 07/23/25 08:24: POC Glucose 313 H 07/23/25 11:27: POC Glucose 246 H 07/23/25 18:19: POC Glucose 276 H 07/23/25 23:54: POC Glucose 189 H 07/24/25 03:44: WBC 15.2 H, RBC 2.70 L, Hgb 8.2 L, Hct 25.1 L, MCV 93.0, MCH 30.4, MCHC 32.7, RDW Std Deviation 45.9 H, RDW Coeff of Tessa 13.4, Plt Count 254,MPV 9.7, Immature Gran % (Auto) 1.100 H, Neut % (Auto) 94.3 H, Lymph % (Auto) 2.0 L, Travis % (Auto) 2.5, Eos % (Auto) 0.0, Baso % (Auto) 0.1, Absolute Neuts (auto) 14.3 H, Absolute Lymphs (auto) 0.30 L, Nucleated RBC % 0, Sodium 137, Potassium 4.4, Chloride 104, Carbon Dioxide 17.5 L, Anion Gap 16 H, BUN 70 H, Creatinine 2.57 H, Estim Creat Clear Calc 19.66 L, Est GFR (MDRD) Non-Af 18 L, BUN/Creatinine Ratio 27.3 H, Glucose 241 H, Calcium 8.5, Phosphorus 5.0 H, Magnesium 1.9, Total Bilirubin 0.20, AST 56 H, ALT 39 H, Alkaline Phosphatase 101, Total Protein 6.2, Albumin 2.7 L, Globulin 3.5, Albumin/Globulin Ratio 0.8 L 07/24/25 05:53: POC Glucose 194 H Micro: Microbiology 07/22/25 20:49 Mucosa - Nasopharyngeal Respiratory Panel (PCR) - Final 07/22/25 12:30 Mucosa - Nose SARS-CoV-2, Influenza & RSV (PCR) - Final ABG Data ABG results: ABG 07/23/25 12:41 Specimen Type ART Sample Site L Radial pH 7.36 Bicarbonate Actual 22.0 Total CO2 23 Base Excess -4 L O2 Saturation 96 O2 % 30.0 ABG pCO2 39.2 ABG pO2 84 Respiration Rate 16 O2 Delivery Device Adult Vent Vent Mode AC Tidal Volume 400.0 POC PEEP 5 Radiography Diagnostic Testing: Radiology Impression Echocardiogram 07/22/25 17:21 Interpretation Summary Technically difficult study. Mild concentric left ventricular hypertrophy. The left ventricular ejection fraction is 70 %. Stage 1 diastolic dysfunction. The left atrium is moderately enlarged. Mild mitral annular calcification. Ordering Physician: Antoni Argueta Performed By: Philippe Dias RCS Renal Ultrasound 07/23/25 05:50 IMPRESSION: 1. Bilateral renal atrophy. No hydronephrosis. Reading Location: [id number] Physical Exam Const no apparent distress and average body habitus Constitutional Narrative: Elderly, white female, lying in bed, intubated and sedated, on ventilator, appears comfortable, does not look toxic HEENT normocephalic, head/scalp atraumatic and moist oral mucous membranes HEENT Narrative: ET tube in place Eyes PERRL Eyes Narrative: Pupils are reactive to light, conjunctiva is mildly pale bilaterally, no scleralicterus Neck supple Neck Narrative: Trachea is midline, patient with ecchymosis under the right 10th mid chin area from unclear etiology as this was present on admission Resp normal respiratory effort, no retractions, no use of accessory muscles and clearto auscultation bilaterally Resp Narrative: Diminished diffusely but clear at this time Auscultation: Negative for crackles, rhonchi or wheezes Cardio S1 normal heart sound, S2 normal heart sound, no murmurs, no rub, no gallops andno clicks Cardio Narrative: Irregularly irregular rhythm, tachycardic GI normal to inspection, nondistended, normoactive bowel sounds, soft to palpation and non-tender Extremity no clubbing, cyanosis or edema Extremity Narrative: 2+ pedal and radial pulses Skin Skin Narrative: Ecchymosis as noted above, skin slightly pale otherwise, multiple excoriations on bilateral lower extremities with no signs of infection with most of them being scabbed Neuro Neuro Narrative: Patient is intubated and sedated Psych Psych Narrative: Unable to assess as patient is intubated and sedated, currently calm on sedation Assessment & Plan Assessment/Plan (1) Acute on chronic respiratory failure with hypoxia and hypercapnia: (2) Dysphagia: (3) Esophageal dysmotility: (4) Paroxysmal atrial fibrillation with RVR: PLAN: Plan Acute on chronic hypoxic and hypercapnic respiratory failure-multifactorial - Initially admitted to PCU on BiPAP but ABG showed significant respiratory distress and she required intubation - Procalcitonin is slightly elevated so there is concern for aspiration pneumonia in conjunction with findings on CT of the chest - Currently intubated sedated with intubation on 2025 - Also seems to have some pulmonary edema with an elevated BNP at 5405 - Patient oxygen dependent due to COPD at baseline on 4 L - Continue scheduled DuoNebs - Continue IV steroids - Continue Zosyn - Continue Lasix - Echocardiogram is pending - Sputum, blood, and urine cultures are pending - Respiratory viral panel and COVID/flu/RSV are all negative - Pulm critical care is following Dysphagia/concern for achalasia/GERD - GI consulted as patient was noted to have air-fluid levels in the esophagus onthe CT of her chest with subsequent suspected aspiration pneumonia as part of her respiratory failure etiology - Will need EGD - Continue PPI as ordered - Speech therapy to evaluate once extubated New onset A-fib with RVR - Heart rates in the 140s to 160s - Start amiodarone bolus and 150 mg x 1 dose and then drip - Start heparin drip for now with procedures planned for tomorrow and patient ultimately will need to be transition to Eliquis -Hemoglobin is stable but will monitor - Echocardiogram already done yesterday and showed an EF of 70% with stage I diastolic dysfunction and moderate enlargement of the left atrium with no significant valvular abnormalities. - Check a.m. TSH Elevated serum creatinine on CKD stage IIIb - Serum creatinine on presentation was 2.06 and baseline appears to be between 1.7-1.9 recently - Serum creatinine 2.04 on admission and has trended up with diuretics so we will discontinue IV Lasix and monitor - Renal ultrasound done and no significant abnormalities noted at this time - Continue to monitor - Avoid nephrotoxins as able - Continue to monitor closely - No need for nephrology at this time but will continue to monitor kidney function - Repeat lab in a.m. Anion gap metabolic acidosis - Remains present - ABG obtained and patient was not acidotic - Monitor clinically at this time - question if this is a spurious lab finding--> bicarb on ABG was 22 Acute on chronic debility with recent mechanical fall - Patient lives alone at baseline but daughter lives close - Patient has had issues with movement since her fall 2 weeks ago - PT/OT is consulted and will work with patient more when she is extubated - Case management/social work consultation for assistance with discharge planning Chronic normocytic anemia -Restart home iron supplementation -Hemoglobin remained stable and in her baseline of 9-10 -Has dropped slightly but shows stability so we will go ahead and start heparin drip for now but need to watch closely -Repeat CBC in a.m. Chronic hypoxic respiratory failure secondary to COPD -Baseline dependence on 4 L continuous -Hold home inhalers -Continue budesonide therapy -As needed albuterol -I-S -Continue Singulair Allergic rhinitis -Continue home Singulair History of stroke/TIA - Discontinue aspirin with initiation of heparin and then transition to Eliquis Hyperlipidemia -Continue statin Hypertension - Continue home antihypertensives - As needed hydralazine DM-2 - On orals at baseline-hold - A1c is 6.4 - Blood sugars remain elevated despite initiation of basal insulin yesterday so will increase to Lantus 25 units - Continue SSI - Accu-Cheks and SSI ordered every 6 for now Depression/anxiety - Continue home medications History of tobacco abuse - Remote - Continue ongoing cessation DVT prophylaxis - Continue subcu heparin CODE STATUS - Full Code Charges/Coding Visit Charges Inpatient E&M: 73563 Subs Hosp L3 07/24/25 1211 <Electronically signed by Ying Jay DO> Cosigner Signature (if applicable): CC: ~ Signed [facility] Work Phone: Progress note Author Georges [facility] Note Date/Time July 24, 2025 1 2:05pm [facility] Medical Records Department [address] [place] [address] Progress Note - Integrated Pest Management Technician 07/24/25 1033 MR#: [id number] Acct: [id number] Name: WING LIN Rep #:[id number] : 1945 80 From: Georges Arcos PCP: LILI STOREY Status:ADM IN Location: ICU ICU03-1 Objective Data Objective Data Vital Signs: Vital Signs Last response 3 Temperature 36.4 C L 07/24/25 08:00 Temperature Source Core 07/24/25 08:00 Pulse Rate 133 H 07/24/25 09:04 Pulse Strength Normal (2+) 07/23/25 22:00 Respiratory Rate 16 07/24/25 09:04 Respiratory Effort Mechanically Ventilated 07/24/25 08:00 Respiratory Depth Normal 07/24/25 08:00 Respiratory Pattern Normal 07/24/25 08:00 Blood Pressure 114/71 07/24/25 09:00 Blood Pressure Mean 85 07/24/25 09:00 Blood Pressure Source Monitor 07/24/25 09:00 Blood Pressure Position Semi-Fowlers 07/24/25 09:00 Blood Pressure Location Right Arm 07/24/25 09:00 Pulse Ox 95 07/24/25 09:04 Oxygen Delivery Method Mechanical Ventilator 07/24/25 09:00 Oxygen Flow Rate (L/min) 4 07/22/25 21:16 Fraction of Inspired Oxygen (FIO2) 30 07/24/25 09:00 I&O: I&O Last 24 Hours 3 07/23/25 07/23/25 07/24/25 11:59 23:59 11:59 Intake Total 397.84 / 674.04 258.80 / 674.04 327.0 / 327.0 Output Total 2049 350 / 350 Balance -527.16 / -1375.96 -866.20 / -1375.96 -23.0 / -23.0 I&O: Total Stay 3 07/22/25 12:11 thru 07/24/25 09:00 Intake Total 1403.49 Output Total 2400 Balance -996.51 Current Meds Ordered / Administered: Current meds ordered / Administered 3 Generic Name Dose Route Start Last Admin Trade Name Freq PRN Reason Stop Dose Admin Acetaminophen 650 mg 07/22/25 18:32 Acetaminophen 325 Mg Tablet PO Q6H PRN PRN Pain 1-10 Or Fever>100.7 Albuterol/Ipratropium 3 ml 07/22/25 18:32 07/24/25 07:31 Ipratropium/Albuterol Sulfate 3 Ml Ampul.Neb INHALATION 3 ml Q6HWA.RT [facility] Administration Aripiprazole 10 mg 07/23/25 10:00 07/24/25 08:56 Aripiprazole 10 Mg Tablet PO Not Given DAILY [facility] Protocol Aspirin 81 mg 07/23/25 08:00 07/24/25 07:52 Aspirin 81 Mg Tab.Chew PO Not Given DAILY@0800 [facility] Atorvastatin Calcium 10 mg 07/22/25 22:00 07/23/25 21:42 Atorvastatin Calcium 10 Mg Tablet PO Not Given QHS [facility] Bisoprolol Fumarate 5 mg 07/23/25 17:00 07/23/25 16:16 Bisoprolol Fumarate 5 Mg Tablet PO Not Given DINNER [facility] Bupropion HCl 150 mg 07/22/25 22:00 07/24/25 08:58 Bupropion (Sr) 150 Mg Tablet.Sa PO Not Given BID [facility] Chlorhexidine Gluconate 15 ml 07/22/25 22:00 07/24/25 08:56 Chlorhexidine 15 Ml PO 15 ml BID REG Administration Cholecalciferol 125 mcg 07/24/25 10:00 07/24/25 08:57 Cholecalciferol (Vit D3) 125 Mcg Capsule (5,000 Units) PO Not Given DAILY [facility] Cyanocobalamin 1,000 mcg 07/23/25 10:00 07/24/25 08:57 Cyanocobalamin 500 Mcg Tablet PO Not Given DAILY [facility] Fentanyl Citrate 50 mcg 07/22/25 21:59 Fentanyl 100 Mcg/2 Ml Ampul IV Q2H PRN PRN Pain >/= 4/10 or CPOT>/= 3/8 Ferrous Sulfate 325 mg 07/23/25 12:00 07/23/25 16:16 Ferrous Sulfate 325 Mg Tablet PO Not Given 1200,1700 [facility] Glucagon 1 mg 07/22/25 21:04 Glucagon 1 Mg/Ml Syringe IM X1 PRN Hypoglycemia Protocol Heparin Sodium (Porcine) 5,000 unit 07/22/25 22:00 07/24/25 05:55 Heparin Injection (Vial) 5,000 Unit/Ml Vial SC 5,000 unit Q8 REG Administration Hydralazine HCl 10 mg 07/22/25 21:08 Hydralazine 20 Mg/Ml Vial IV Q4H PRN PRN SBP GREATER THAN 170 Protocol Sodium Chloride 250 mls @ 15 mls/hr 07/22/25 18:33 IV .[id number] PRN Saline Flush Sodium Chloride 250 mls @ 15 mls/hr 07/22/25 18:33 IV .[id number] PRN Additional IVPB Infusion Piperacillin Sod/Tazobactam 50 mls @ 12.5 mls/hr 07/22/25 22:00 07/24/25 05:55 Sod 3.375 gm/ Sodium Chloride IV 12.5 mls/hr Q8 REG Administration Dextrose 250 mls @ 0 mls/hr 07/22/25 21:04 Dextrose 10%-Water IV .Q0M PRN HYPOGLYCEMIA Protocol As Directed Pantoprazole Sodium 40 mg/ 100 mls @ 300 mls/hr 07/22/25 21:05 07/23/25 11:51 Sodium Chloride IV Infused Q24 REG Infusion Propofol 1,000 mg in 100 mls @ 4.97 mls/hr 07/22/25 22:00 07/24/25 09:00 Diprivan CONT INF 25 mcg/kg/min .Q12H REG 12.4 mls/hr Protocol Titration 10 MCG/KG/MIN Fentanyl 100 mls @ 2.5 mls/hr 07/22/25 22:55 07/24/25 09:00 CONT INF 50 mcg/hr UD REG 5 mls/hr Protocol Titration 25 MCG/HR Amiodarone HCl 360 mg/ 200 mls @ 33.333 mls/hr 07/24/25 07:30 07/24/25 08:51 Dextrose CONT INF 07/24/25 13:29 1 mg/min .Q6H REG 33.3 mls/hr 1 MG/MIN Administration Amiodarone HCl 360 mg/ 200 mls @ 16.667 mls/hr 07/24/25 13:30 Dextrose CONT INF 07/25/25 07:29 .Q12H REG 0.5 MG/MIN Influenza Virus Vaccine 180 mcg 07/25/25 10:00 Flu Vaccine High Dose 25-26(65yr Up) 180 Mcg/0.5 Ml Syringe IM 07/25/25 10:01 .ONCE ONE Insulin Glargine 25 unit 07/24/25 10:00 Insulin Glargine-Yfgn 100 Unit/Ml Pen SC DAILY [facility] Insulin Human Lispro 0 unit 07/23/25 12:00 07/24/25 05:54 Insulin Lispro 100 Unit/Ml Insuln.Pen SC 3 u Q6 [facility] Administration Protocol Losartan Potassium 50 mg 07/23/25 10:00 07/24/25 08:56 Losartan Potassium 50 Mg Tablet PO Not Given DAILY [facility] Protocol Methylprednisolone Sodium Succinate 40 mg 07/23/25 06:00 07/24/25 05:55 Methylprednisolone Sod Succ 40 Mg/Ml Vial IV 40 mg Q8 [facility] Administration Montelukast Sodium 10 mg 07/23/25 10:00 07/24/25 08:57 Montelukast 10 Mg Tablet PO Not Given DAILY [facility] Nystatin 1 applic 07/22/25 22:00 07/23/25 21:39 Nystatin Powder 15gm Bottle TOPICAL 1 applic BID [facility] Administration Protocol Ondansetron HCl 4 mg 07/22/25 18:32 Ondansetron 4 Mg/2 Ml Vial IV Q8H PRN PRN NAUSEA/VOMITING Sodium Chloride 10 - 40 ml 07/22/25 18:33 07/23/25 00:20 0.9% Saline Lock 10 Ml Syringe IV 30 ml UD PRN Administration SALINE FLUSH Trazodone HCl 150 mg 07/22/25 21:08 Trazodone 50 Mg Tablet PO QHS PRN sleep Venlafaxine HCl 150 mg 07/23/25 10:00 07/24/25 08:57 Venlafaxine Xr 150 Mg Capsule PO Not Given DAILY [facility] Lab / Micro Data 07/24/25 11:35 07/24/25 03:44 Labs: Laboratory Results - last 24 hr 07/23/25 11:27: POC Glucose 246 H 07/23/25 18:19: POC Glucose 276 H 07/23/25 23:54: POC Glucose 189 H 07/24/25 03:44: WBC 15.2 H, RBC 2.70 L, Hgb 8.2 L, Hct 25.1 L, MCV 93.0, MCH 30.4, MCHC 32.7, RDW Std Deviation 45.9 H, RDW Coeff of Tessa 13.4, Plt Count 254,MPV 9.7, Immature Gran % (Auto) 1.100 H, Neut % (Auto) 94.3 H, Lymph % (Auto) 2.0 L, Travis % (Auto) 2.5, Eos % (Auto) 0.0, Baso % (Auto) 0.1, Absolute Neuts (auto) 14.3 H, Absolute Lymphs (auto) 0.30 L, Nucleated RBC % 0, Sodium 137, Potassium 4.4, Chloride 104, Carbon Dioxide 17.5 L, Anion Gap 16 H, BUN 70 H, Creatinine 2.57 H, Estim Creat Clear Calc 19.66 L, Est GFR (MDRD) Non-Af 18 L, BUN/Creatinine Ratio 27.3 H, Glucose 241 H, Calcium 8.5, Phosphorus 5.0 H, Magnesium 1.9, Total Bilirubin 0.20, AST 56 H, ALT 39 H, Alkaline Phosphatase 101, Total Protein 6.2, Albumin 2.7 L, Globulin 3.5, Albumin/Globulin Ratio 0.8 L 07/24/25 05:53: POC Glucose 194 H Micro: Microbiology 07/22/25 22:05 Sputum, Induced/Lukens Respiratory Culture - Preliminary Appears to be normal respiratory michelle. Further studies to follow. 07/22/25 13:09 Urine, Catheterized Urine Culture - Final Culture exhibits no growth. 07/22/25 20:49 Mucosa - Nasopharyngeal Respiratory Panel (PCR) - Final ABG Data ABG results: ABG 07/23/25 12:41 Specimen Type ART Sample Site L Radial pH 7.36 Bicarbonate Actual 22.0 Total CO2 23 Base Excess -4 L O2 Saturation 96 O2 % 30.0 ABG pCO2 39.2 ABG pO2 84 Respiration Rate 16 O2 Delivery Device Adult Vent Vent Mode AC Tidal Volume 400.0 POC PEEP 5 Imaging Radiology Impression Echocardiogram 07/22/25 17:21 Interpretation Summary Technically difficult study. Mild concentric left ventricular hypertrophy. The left ventricular ejection fraction is 70 %. Stage 1 diastolic dysfunction. The left atrium is moderately enlarged. Mild mitral annular calcification. Ordering Physician: Antoni Argueta Performed By: Philippe Dias RCS Renal Ultrasound 07/23/25 05:50 IMPRESSION: 1. Bilateral renal atrophy. No hydronephrosis. Reading Location: [facility] Assessment and Plan . Assessment and plan: 80 F who presents for Dysphagia. Patient found to have Achalasia therefore GI was consulted and patient was admitted to floor. Patient was on 4L NC at home but patient was having respiratory distress therefore BiPAP was tried initially but patient continued to worsen therefore patient was transferred to ICU and intubated. 07/24/25 Patient seen and examined. Chart and data reviewed. She is sedated - appears comfortable Now in AF w/ tachycardia - amiodarone infusing - TTE reveals LVH, dilated LA, normal LVSF UOP adequate, but creatinine elevated today MV 6-7 LPM, PIP OK, modest O2 requirement EGD pending EXAM GEN sedated VS as above HEENT CLINT NECK supple COR irreg, fast CHEST coarse ABD soft EXT minimal edema SKIN w/d PANFILO sedated ASSESSMENT/PLAN 1. Acute respiratory failure requiring MV support 2. 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 Emphysema / former tobacco use 4. BENITO - non-oliguric 5. Anemia 6. DM 7. AF w/ tachycardia -MV support -sedation/analgesia -amiodarone infusing -stop beta agonist -continue short course steroids -receiving IV ABX -EGD pending -sq insulin -follow renal function closely -sq UFH for VTE prophylaxis Critical Care Time: 50 minutes The entirety of this encounter was done via Telemedicine 07/24/25 1205 <Electronically signed by Georges Duque MD> Cosigner Signature (if applicable): CC: ~ Signed [facility] Work Phone: Progress note Author William Chavez [facility] Note Date/Time July 25, 2025 1 0:26am [facility] Medical Records Department [address] [place] [address] Progress Note - Integrated Pest Management Technician 07/25/25 0728 MR#: [id number] Acct: [id number] Name: WING LIN Rep #:[id number] : 1945 80 From: William Chavez DO PCP: LILI STOREY Status:ADM IN Location: ICU ICU03-1 Assessment & Plan Assessment/Plan (1) Acute on chronic respiratory failure with hypoxia and hypercapnia: PLAN: Plan RECOMMENDATIONS: 1. Continue assist-control mode of mechanical ventilation. Wean FiO2 and PEEP as tolerated. 2. Continue propofol and fentanyl for sedation. 3. Continue bronchodilators and steroids. 4. Stop heparin drip 6 hours prior to planned endoscopic procedure tomorrow. 5. Tentative plans for upper endoscopy tomorrow afternoon. 6. Will hold off on potential extubation until endoscopic evaluation is completed. 7. Continue appropriate GI prophylaxis. IMPRESSIONS: 1. Acute on chronic combined respiratory failure Most likely related to COPD exacerbation in the setting of aspiration pneumonia. The patient is at high risk for further aspiration events given her history of dysphagia and concern for achalasia. For now, the patient will be continued on assist- control mode of mechanical ventilation. Antimicrobials will be continuedto complete 7 days of therapy. Will continue scheduled bronchodilators and steroids. Ultimately, we will hold off on proceeding with any trials of extubation until the patient endoscopic workup has been completed tomorrow. 2. History of dysphagia/GERD/questionable achalasia Gastroenterology consulted with tentative plans for endoscopic evaluation tomorrow. Continue PPI therapy in the interim. 3. Atrial fibrillation with RVR Continue weight-based heparin infusion for now. Plan to hold heparin 6 hours prior to planned endoscopic evaluation tomorrow. Echocardiogram revealed intact, normal systolic function. 4. History of chronic kidney disease/anemia/allergic rhinitis/history of CVA/hypertension/diabetes mellitus/tobacco dependency Complicates care, management, recovery and prognosis. Continue supportive measures as noted above. TIME: 38 minutes of critical care time, independent of procedures, was spent addressing the patient's acute on chronic combined respiratory failure, history of dysphagia, atrial fibrillation with RVR, review of all data and collaborationwith the care team. Subjective Subjective The patient was seen and examined at the bedside this morning. Events from the last 24 hours have been reviewed. The patient is currently afebrile, hemodynamically stable and maintaining appropriate oxygen saturations on assist-control mode mechanical ventilation with an FiO2 requirement of 30% and PEEP of 5. The patient is currently sedated on propofol and fentanyl. White blood cellcount was noted to be 13,000. Hemoglobin and platelet count are stable. Arterial blood gas was notable for a pH of 7.48 with a pCO2 of 27 and pO2 of 118. Creatinine is elevated at 2.48. The patient remains on a heparin infusion. I did call and speak with Dr. Nguyen of gastroenterology regarding the feasibility of EGD prior to extubation. The patient is tentatively scheduled for upper endoscopy tomorrow afternoon. He did ask that the heparin be stopped 6 hours prior to the procedure. The patient will remain intubated until the endoscopic evaluation has been completed. Objective Data Objective Data The patient's most recent lab work, culture data and imaging studies have all been personally reviewed. Surface echocardiogram demonstrated mild concentric LVH with an ejection fraction of 70% and stage I diastolic dysfunction. Infectious workup has been unrevealing to date. Vital Signs: Vital Signs Temp Pulse Resp BP Pulse Ox O2 Del Method O2 Flow Rate 98.2 F 113 H 16 109/68 96 Mechanical Ventilator 4 07/25/25 07:00 07/25/25 07:00 07/25/25 07:00 07/25/25 07:00 07/25/25 07:00 07/25/25 07:00 07/22/25 21:16 FiO2 30 07/25/25 07:00 Oxygen Flow Rate (L/min) 4 Oxygen Delivery Method Mechanical Ventilator Weight: 186 lb 15.232 oz Body Mass Index (BMI) 29.3 Intake & Output: Intake and Output for Last 24 Hours 07/23/25 07/24/25 07/25/25 23:59 23:59 23:59 Intake Total 656.64 / 674.04 8.19 / 2064.59 428.14 / 428.14 Output Total 2049 735 / 735 700 / 700 Balance -1393.36 / -1375.96 1313.19 / 1330.59 -271.86 / -271.86 Lab / Micro Data Attestation: I reviewed the patient's lab results. 07/25/25 03:20 07/25/25 03:20 Labs: Laboratory Results - last 24 hr 07/24/25 10:57: POC Glucose 228 H 07/24/25 11:35: WBC 14.6 H, RBC 2.72 L, Hgb 8.5 L, Hct 25.6 L, MCV 94.1, MCH 31.6, MCHC 33.6, RDW Std Deviation 46.6 H, RDW Coeff of Tessa 13.6, Plt Count 267,MPV 10.1, Immature Gran % (Auto) 0.700, Neut % (Auto) 94.8 H, Lymph % (Auto) 2.2L, Travis % (Auto) 2.2, Eos % (Auto) 0.0, Baso % (Auto) 0.1, Absolute Neuts (auto)13.8 H, Absolute Lymphs (auto) 0.32 L, Nucleated RBC % 0.1 07/24/25 12:25: PT 14.7, INR 1.1, APTT 28.4 07/24/25 18:04: POC Glucose 172 H 07/24/25 19:49: APTT 144.6 H* 07/25/25 00:09: POC Glucose 157 H 07/25/25 01:45: APTT 99.9 H* 07/25/25 03:20: WBC 13.5 H, RBC 2.83 L, Hgb 8.5 L, Hct 26.3 L, MCV 92.9, MCH 30.0, MCHC 32.3, RDW Std Deviation 46.2 H, RDW Coeff of Tessa 13.5, Plt Count 300,MPV 9.8, Immature Gran % (Auto) 1.500 H, Neut % (Auto) 92.5 H, Lymph % (Auto) 3.5 L, Travis % (Auto) 2.4, Eos % (Auto) 0.0, Baso % (Auto) 0.1, Absolute Neuts (auto) 12.5 H, Absolute Lymphs (auto) 0.47 L, Nucleated RBC % 0.1, Sodium 136, Potassium 4.7, Chloride 105, Carbon Dioxide 18.8 L, Anion Gap 13, BUN 80 H, Creatinine 2.48 H, Estim Creat Clear Calc 20.58 L, Est GFR (MDRD) Non-Af 19 L, BUN/Creatinine Ratio 32.4 H, Glucose 189 H, Calcium 8.4, Total Bilirubin 0.19, AST 34 H, ALT 32, Alkaline Phosphatase 103, Total Protein 6.1, Albumin 2.7 L, Globulin 3.4, Albumin/Globulin Ratio 0.8 L Micro: Microbiology 07/22/25 22:05 Sputum, Induced/Lukens Gram Stain - Final 07/22/25 22:05 Sputum, Induced/Lukens Respiratory Culture - Preliminary Appears to be normal respiratory michelle. Further studies to follow. 07/22/25 12:32 Blood Culture (Wb) - Anticubital Left Blood Culture - Preliminary No growth in 48 hours. 07/22/25 12:32 Blood Culture (Wb) - Anticubital Right Blood Culture - Preliminary No growth in 48 hours. 07/22/25 13:09 Urine, Catheterized Urine Culture - Final Culture exhibits no growth. 07/22/25 20:49 Mucosa - Nasopharyngeal Respiratory Panel (PCR) - Final 07/22/25 12:30 Mucosa - Nose SARS-CoV-2, Influenza & RSV (PCR) - Final ABG Data ABG results: ABG 07/25/25 05:58 Specimen Type ART Sample Site R Radial pH 7.48 H Bicarbonate Actual 20.4 L Total CO2 21 Base Excess -3 L O2 Saturation 99 O2 % 30.0 ABG pCO2 27.1 L ABG pO2 118 H Miranda Test Positive Respiration Rate 16 O2 Delivery Device Adult Vent Vent Mode AC Tidal Volume 400.0 POC PEEP 5 Radiography Diagnostic Testing: Radiology Impression Chest X-Ray 07/25/25 05:05 IMPRESSION: Tubes and lines in position. There is cardiomegaly with central vascular congestion and congestive changes. Reading Location: [facility] Physical Exam Const Constitutional Narrative: Intubated, sedated and mechanically ventilated. HEENT normocephalic and head/scalp atraumatic Mouth: endotracheal tube in place and OG tube in place Eyes EOMs intact bilaterally and conjunctivae normal Neck supple General: trachea midline Chest inspection of chest normal Resp Auscultation: diminished lung sounds; Negative for rales, rhonchi or wheezes Cardio S1 normal heart sound and S2 normal heart sound Rate: tachycardic Rhythm: abnormal rhythm GI normal to inspection, nondistended, normoactive bowel sounds Extremity no clubbing, cyanosis or edema Skin no rashes or lesions noted Neuro Sensorium / Orientation: sedated on vent Charges/Coding Procedures Hospitalists Procedures: [id number] Critical Care 1st Hr 07/25/25 1026 <Electronically signed by William Chavez DO> Cosigner Signature (if applicable): CC: ~ Signed [facility] Work Phone: Progress note Author Jonel Lorenzo [facility] Note Date/Time July 25, 2025 9 :32am [facility] Medical Records Department [address] [facility] [place] [address] Progress Note - Hospitalist 07/25/25 0803 MR#: [id number] Acct: [id number] Name: WING LIN Rep #:[id number] : 1945 80 From: Jonel Lorenzo MD PCP: LILI STOREY Status:ADM IN Location: ICU ICU03-1 Reason for Visit Chief Complaint: Worsening shortness of breath Subjective Subjective Patient is a 80-year-old lady who presented to the emergency department in respiratory distress. Was initially placed on BiPAP however clinical condition deteriorated resulting in patient being intubated and admitted to the intensive care unit. CT of the scan showed dilated esophagus with air-fluid levels GI subsequently consulted Objective Data Objective Data Vital Signs: Vital Signs Temp Pulse Resp BP Pulse Ox O2 Del Method O2 Flow Rate 98.2 F 113 H 16 109/68 96 Mechanical Ventilator 4 07/25/25 07:00 07/25/25 07:00 07/25/25 07:00 07/25/25 07:00 07/25/25 07:00 07/25/25 07:00 07/22/25 21:16 FiO2 30 07/25/25 07:00 Oxygen Flow Rate (L/min) 4 Oxygen Delivery Method Mechanical Ventilator Weight: 84.8 kg Body Mass Index (BMI) 29.3 Intake & Output: Intake and Output for Last 24 Hours 07/23/25 07/24/25 07/25/25 23:59 23:59 23:59 Intake Total 656.64 / 674.04 8.19 / 2065.59 428.14 / 428.14 Output Total 2049 735 / 735 700 / 700 Balance -1393.36 / -1375.96 1313.19 / 1330.59 -271.86 / -271.86 Lab / Micro Data 07/25/25 03:20 07/25/25 03:20 Labs: Laboratory Results - last 24 hr 07/24/25 10:57: POC Glucose 228 H 07/24/25 11:35: WBC 14.6 H, RBC 2.72 L, Hgb 8.5 L, Hct 25.6 L, MCV 94.1, MCH 31.6, MCHC 33.6, RDW Std Deviation 46.6 H, RDW Coeff of Tessa 13.6, Plt Count 267,MPV 10.1, Immature Gran % (Auto) 0.700, Neut % (Auto) 94.8 H, Lymph % (Auto) 2.2L, Travis % (Auto) 2.2, Eos % (Auto) 0.0, Baso % (Auto) 0.1, Absolute Neuts (auto)13.8 H, Absolute Lymphs (auto) 0.32 L, Nucleated RBC % 0.1 07/24/25 12:25: PT 14.7, INR 1.1, APTT 28.4 07/24/25 18:04: POC Glucose 172 H 07/24/25 19:49: APTT 144.6 H* 07/25/25 00:09: POC Glucose 157 H 07/25/25 01:45: APTT 99.9 H* 07/25/25 03:20: WBC 13.5 H, RBC 2.83 L, Hgb 8.5 L, Hct 26.3 L, MCV 92.9, MCH 30.0, MCHC 32.3, RDW Std Deviation 46.2 H, RDW Coeff of Tessa 13.5, Plt Count 300,MPV 9.8, Immature Gran % (Auto) 1.500 H, Neut % (Auto) 92.5 H, Lymph % (Auto) 3.5 L, Travis % (Auto) 2.4, Eos % (Auto) 0.0, Baso % (Auto) 0.1, Absolute Neuts (auto) 12.5 H, Absolute Lymphs (auto) 0.47 L, Nucleated RBC % 0.1, Sodium 136, Potassium 4.7, Chloride 105, Carbon Dioxide 18.8 L, Anion Gap 13, BUN 80 H, Creatinine 2.48 H, Estim Creat Clear Calc 20.58 L, Est GFR (MDRD) Non-Af 19 L, BUN/Creatinine Ratio 32.4 H, Glucose 189 H, Calcium 8.4, Total Bilirubin 0.19, AST 34 H, ALT 32, Alkaline Phosphatase 103, Total Protein 6.1, Albumin 2.7 L, Globulin 3.4, Albumin/Globulin Ratio 0.8 L Micro: Microbiology 07/22/25 22:05 Sputum, Induced/Lukens Gram Stain - Final 07/22/25 22:05 Sputum, Induced/Lukens Respiratory Culture - Preliminary Appears to be normal respiratory michelle. Further studies to follow. 07/22/25 12:32 Blood Culture (Wb) - Anticubital Left Blood Culture - Preliminary No growth in 48 hours. 07/22/25 12:32 Blood Culture (Wb) - Anticubital Right Blood Culture - Preliminary No growth in 48 hours. 07/22/25 13:09 Urine, Catheterized Urine Culture - Final Culture exhibits no growth. 07/22/25 20:49 Mucosa - Nasopharyngeal Respiratory Panel (PCR) - Final 07/22/25 12:30 Mucosa - Nose SARS-CoV-2, Influenza & RSV (PCR) - Final ABG Data ABG results: ABG 07/25/25 05:58 Specimen Type ART Sample Site R Radial pH 7.48 H Bicarbonate Actual 20.4 L Total CO2 21 Base Excess -3 L O2 Saturation 99 O2 % 30.0 ABG pCO2 27.1 L ABG pO2 118 H Miranda Test Positive Respiration Rate 16 O2 Delivery Device Adult Vent Vent Mode AC Tidal Volume 400.0 POC PEEP 5 Radiography Diagnostic Testing: Radiology Impression Chest X-Ray 07/25/25 05:05 IMPRESSION: Tubes and lines in position. There is cardiomegaly with central vascular congestion and congestive changes. Reading Location: [facility] Physical Exam Narrative GENERAL: Sedated on the vent HEENT: Atraumatic; ET tube in place EYES; Anicteric, Normal Conjunctiva NECK; supple, normal thyroid, RESPIRATORY: Diminished to auscultation CARDIOVASCULAR: Regular S1 S2, GI: soft, normoactive bowel sounds, : No Renal angle tenderness; EXTREMITIES: No edema, no clubbing, MUSCULOSKELETAL: no muscle wasting NEURO: Unable to assess patient sedated in the vent SKIN: Excoriations of lower extremities Assessment & Plan Assessment/Plan (1) Acute on chronic respiratory failure with hypoxia and hypercapnia: (2) Dysphagia: (3) Esophageal dysmotility: (4) Paroxysmal atrial fibrillation with RVR: PLAN: Plan Patient is a 80-year-old lady who presented to the emergency department in respiratory distress. Was initially placed on BiPAP however clinical condition deteriorated resulting in patient being intubated and admitted to the intensive care unit. CT of the scan showed dilated esophagus with air-fluid levels GI subsequently consulted 1. Acute on chronic hypoxic and hypercapnic respiratory failure ? Multifactorial including aspiration pneumonia as well as congestive heart failure. Patient was initially managed with noninvasive ventilation BiPAP however respiratory status continued to deteriorate resulting in patient being intubated on 2025. 2. Suspected aspiration pneumonia based on CT finding of severely dilated esophagus. CT again demonstrated airspace opacities in lower lungs consistent with pneumonia. Patient remains onZosyn 3. Dilated esophagus ? With concern for achalasia. CT obtained on 2025 demonstrated dilated esophagus with ingested material consistent with gastroesophageal reflux. Patient is on PPI consult placed to GI plan is for patient to undergo endoscopy with intervention by Dr. Walker on 07/25/2025 4. Acute congestive heart failure with preserved ejection fraction ? Patient was managed with diuretic therapy with furosemide echo ordered today show Mild concentric left ventricular hypertrophy. The left ventricular ejection fraction is 70 %. Stage 1 diastolic dysfunction. The left atrium is moderately enlarged. Mild mitral annular calcification. 5. New onset A-fib with RVR - Heart rates in the 140s to 160s patient was started on amiodarone drip. Patient was placed on systemic anticoagulation with heparin with plans to transition to apixaban on discharge 6. Anemia ? Secondary to chronic disorder monitoring H&H and transfuse if patient becomes symptomatic or hemoglobin falls below 7 7. Acute kidney injury ? Superimposed on chronic kidney disease stage III. Baseline creatinine 1.88 creatinine on admission was 2.04. Patient creatinine peaked at 2.57. Kidney ultrasound did not show any abnormalities. Consult placed to nephrology 8. Acute on chronic debility with recent mechanical fall - Patient lives alone at baseline but daughter lives close; Patient has had issues with movement since her fall 2 weeks ago; PT/OT is consulted and will work with patient more when she is extubated - Case management/social work consultation for assistance with discharge planning 9. Chronic hypoxic respiratory failure secondary to COPD -Baseline dependence on 4 L continuous. 10. History of stroke/TIAs ? Patient is on antiplatelet therapy with aspirin 11. Dyslipidemia ?Patient is on statin therapy, continued at home dose 12. Essential hypertension ? Patient blood pressure control remains stable 13. Diabetes mellitus type 2 ? Patient oral hypoglycemic agent held on admission placed on long-acting insulin with sliding scale coverage 14. Depression with anxiety ? Plan is to resume home meds once patient has been extubated 15. DVT prophylaxis ? Patient is on heparin Time spent in the patient's overall evaluation,decision-making process, review of diagnostic data, adjustment of management, discussion with other providers, nursing nursing and ancillary staff involved in patient's care documentation, 55 Minutes Charges/Coding Visit Charges Inpatient E&M: 96206 [facility] Hosp 07/25/25 0932 <Electronically signed by Jonel Lorenzo MD> Cosigner Signature (if applicable): CC: ~ Signed [facility] Work Phone: Progress note Author Kamron Friend [facility] Note Date/Time July 25, 2025 5 :28pm [facility] Medical Records Department [address] [place] [address] Progress Note 07/25/25 1724 MR#: [id number] Acct: [id number] Name: WING LIN Rep #:[id number] : 1945 80 From: Kamron Ngyuen DO PCP: LILI STOREY Status:ADM IN Location: ICU ICU03-1 Progress Note 80-year-old female with a history of Chronic Obstructive Pulmonary Disease and Atrial Fibrillation with Rapid Ventricular Response (A-fib with RVR), currently intubated and sedated on a mechanical ventilator in the Intensive Care Unit . Asthe patient is unable to speak, subjective information is limited and is primarily gathered from medical records and available reports. No new patient (patient intubated and sedated) or family concerns were expressed. Physical Exam Narrative GENERAL: Sedated on the vent HEENT: Atraumatic; ET tube in place EYES; Anicteric, Normal Conjunctiva NECK; supple, normal thyroid, RESPIRATORY: Diminished to auscultation CARDIOVASCULAR: Regular S1 S2, GI: soft, normoactive bowel sounds, : No Renal angle tenderness; EXTREMITIES: No edema, no clubbing, MUSCULOSKELETAL: no muscle wasting NEURO: Unable to assess patient sedated in the vent SKIN: Excoriations of lower extremities Assessment & Plan Assessment/Plan (1) Paroxysmal atrial fibrillation with RVR: (2) Esophageal dysmotility: (3) Acute on chronic respiratory failure with hypoxia and hypercapnia: PLAN: 1. Status Post Intubation for Acute Respiratory Failure:?The patient is dependent on mechanical ventilation, likely for a severe COPD exacerbation. Her COPD status is severe, making her vulnerable to respiratory decompensation. Progress is being made towards ventilator weaning, with respiratory parameters trending positively. 2. Fluid-Filled Esophagus:?The etiology remains unclear, but potential causes include esophageal motility disorders (such as achalasia), obstruction, or prolonged supine positioning due to sedation and intubation. The finding is significant due to the risk of aspiration, especially in an intubated and sedated patient. 3. Atrial Fibrillation with RVR:?The patient requires therapeutic anticoagulation due to her cardiac history. Her heart rate is currently controlled. The decision to hold the heparin for the procedure must weigh the risk of bleeding against the risk of thromboembolic events. 4. Pre-endoscopy Evaluation and Risk Assessment:?For an intubated and sedated patient on therapeutic heparin, an upper endoscopy is a higher-risk procedure. *?Bleeding Risk:?The heparin drip is a major bleeding risk factor. *?Airway Risk:?The intubation provides airway protection, but the procedure still carries risks of hemodynamic changes and potential for complications. *?Fluid-Filled Esophagus Risk:?The high volume of esophageal fluid increases therisk of aspiration despite intubation. Plan 1. Pulmonary: * Continue current ventilator settings as per glass wool blanket machine feeder. 2. Gastroenterology: * Upper Endoscopy:?Scheduled for tomorrow to determine the cause of the fluid- filled esophagus and rule out obstruction, motility disorders, or mass. 3. Cardiology/Hematology: * Heparin Management:?Hold heparin drip 6 hours before the procedure, per protocol for intravenous unfractionated heparin. * Restart heparin drip post-procedure, as directed by the cardiology service, once hemostasis is ensured. Visit Charges Inpatient E&M: 66574 Subs Hosp L3 07/25/25 1728 <Electronically signed by Kamron Friend DO> Kamron Friend DO Cosigner Signature (if applicable): CC: ~ Signed [facility] Work Phone: Progress note Author Jonel Lorenzo [facility] Note Date/Time July 26, 2025 9 :04am [facility] Medical Records Department [address] [place] [address] Progress Note - Hospitalist 07/26/25 0749 MR#: [id number] Acct: [id number] Name: WING LIN Rep #:[id number] : 1945 80 From: Jonel Lorenzo MD PCP: LILI STOREY Status:ADM IN Location: ICU ICU03-1 Reason for Visit Chief Complaint: Worsening shortness of breath Subjective Subjective Patient remains on the vent easily arousable. Patient EGD scheduled for this a.m. Objective Data Objective Data Vital Signs: Vital Signs Temp Pulse Resp BP Pulse Ox O2 Del Method O2 Flow Rate 98.2 F 108 H 16 121/86 H 97 Mechanical Ventilator 4 07/26/25 04:00 07/26/25 06:58 07/26/25 06:58 07/26/25 06:00 07/26/25 06:58 07/26/25 06:00 07/22/25 21:16 FiO2 30 07/26/25 06:00 Oxygen Flow Rate (L/min) 4 Oxygen Delivery Method Mechanical Ventilator Weight: 85.3 kg Body Mass Index (BMI) 29.4 Intake & Output: Intake and Output for Last 24 Hours 07/24/25 07/25/25 07/26/25 23:59 23:59 23:59 Intake Total 2048.19 / 2065.59 1140.47 / 1140.47 394.25 / 394.25 Output Total 735 / 735 1200 / 1400 275 / 275 Balance 1313.19 / 1330.59 -59.53 / -259.53 119.25 / 119.25 Lab / Micro Data 07/26/25 05:33 07/26/25 05:33 Labs: Laboratory Results - last 24 hr 07/25/25 06:41: POC Glucose 183 H 07/25/25 08:15: APTT 63.1 H 07/25/25 11:20: POC Glucose 156 H 07/25/25 14:05: APTT 73.9 H 07/25/25 17:24: POC Glucose 141 H 07/26/25 00:13: POC Glucose 163 H 07/26/25 05:33: WBC 11.6 H, RBC 3.08 L, Hgb 9.3 L, Hct 28.9 L, MCV 93.8, MCH 30.2, MCHC 32.2, RDW Std Deviation 46.2 H, RDW Coeff of Tessa 13.4, Plt Count 337,MPV 9.7, Neut % (Auto) Not Reportable, Absolute Neuts (auto) 9.9 H, Absolute Lymphs (auto) 0.93, Total Counted 100, Neutrophils % (Manual) 85 H, Lymphocytes % (Manual) 8 L, Monocytes % (Manual) 5, Metamyelocytes % 1, Myelocytes % 1 H, Platelet Estimate ADEQUATE, Anisocytosis 1+, Tear Drop Cells RARE, Ovalocytes 2+, APTT 93.9 H*, Sodium 138, Potassium 4.7, Chloride 106, Carbon Dioxide 17.7 L, Anion Gap 14, BUN 83 H, Creatinine 2.42 H, Estim Creat Clear Calc 21.15 L, EstGFR (MDRD) Non-Af 20 L, BUN/Creatinine Ratio 34.4 H, Glucose 185 H, Calcium 7.9 Micro: Microbiology 07/22/25 22:05 Sputum, Induced/Lukens Gram Stain - Final 07/22/25 22:05 Sputum, Induced/Lukens Respiratory Culture - Final Mixed normal respiratory michelle. No Streptococcus pneumoniae, beta-hemolytic Streptococcus or Staphylococcus aureus isolated. 07/22/25 12:32 Blood Culture (Wb) - Anticubital Left Blood Culture - Preliminary No growth in 48 hours. 07/22/25 12:32 Blood Culture (Wb) - Anticubital Right Blood Culture - Preliminary No growth in 48 hours. 07/22/25 13:09 Urine, Catheterized Urine Culture - Final Culture exhibits no growth. 07/22/25 20:49 Mucosa - Nasopharyngeal Respiratory Panel (PCR) - Final 07/22/25 12:30 Mucosa - Nose SARS-CoV-2, Influenza & RSV (PCR) - Final Physical Exam Narrative GENERAL: Awake on the vent on the vent HEENT: Atraumatic; ET tube in place EYES; Anicteric, Normal Conjunctiva NECK; supple, normal thyroid, RESPIRATORY: Diminished to auscultation CARDIOVASCULAR: Regular S1 S2, GI: soft, normoactive bowel sounds, : No Renal angle tenderness; EXTREMITIES: No edema, no clubbing, MUSCULOSKELETAL: no muscle wasting NEURO: Awake on the vent able to follow simple commands SKIN: Excoriations of lower extremities Assessment & Plan Assessment/Plan (1) Acute on chronic respiratory failure with hypoxia and hypercapnia: (2) Dysphagia: (3) Esophageal dysmotility: (4) Paroxysmal atrial fibrillation with RVR: PLAN: Plan Patient is a 80-year-old lady who presented to the emergency department in respiratory distress. Was initially placed on BiPAP however clinical condition deteriorated resulting in patient being intubated and admitted to the intensive care unit. CT of the scan showed dilated esophagus with air-fluid levels GI subsequently consulted 1. Acute on chronic hypoxic and hypercapnic respiratory failure ? Multifactorial including aspiration pneumonia as well as congestive heart failure. Patient was initially managed with noninvasive ventilation BiPAP however respiratory status continued to deteriorate resulting in patient being intubated on 2025. ? 07/26/2025 patient remains awake on the vent with plans to undergo weaning trial following her EGD 2. Suspected aspiration pneumonia based on CT finding of severely dilated esophagus. CT again demonstrated airspace opacities in lower lungs consistent with pneumonia. Patient remains onZosyn 3. Dilated esophagus ? With concern for achalasia. CT obtained on 2025 demonstrated dilated esophagus with ingested material consistent with gastroesophageal reflux. Patient is on PPI consult placed to GI plan is for patient to undergo endoscopy with intervention by Dr. Nguyen on 07/25/2025 ? 07/26/2025; patient EGD scheduled for this a.m. 4. Acute congestive heart failure with preserved ejection fraction ? Patient was managed with diuretic therapy with furosemide echo ordered today show Mild concentric left ventricular hypertrophy. The left ventricular ejection fraction is 70 %. Stage 1 diastolic dysfunction. The left atrium is moderately enlarged. Mild mitral annular calcification. 5. New onset A-fib with RVR - Heart rates in the 140s to 160s patient was started on amiodarone drip. Patient was placed on systemic anticoagulation with heparin with plans to transition to apixaban on discharge 6. Anemia ? Secondary to chronic disorder monitoring H&H and transfuse if patient becomes symptomatic or hemoglobin falls below 7 7. Acute kidney injury ? Superimposed on chronic kidney disease stage III. Baseline creatinine 1.88 creatinine on admission was 2.04. Patient creatinine peaked at 2.57. Kidney ultrasound did not show any abnormalities. Consult placed to nephrology 8. Acute on chronic debility with recent mechanical fall - Patient lives alone at baseline but daughter lives close; Patient has had issues with movement since her fall 2 weeks ago; PT/OT is consulted and will work with patient more when she is extubated - Case management/social work consultation for assistance with discharge planning 9. Chronic hypoxic respiratory failure secondary to COPD -Baseline dependence on 4 L continuous. 10. History of stroke/TIAs ? Patient is on antiplatelet therapy with aspirin 11. Dyslipidemia ?Patient is on statin therapy, continued at home dose 12. Essential hypertension ? Patient blood pressure control remains stable 13. Diabetes mellitus type 2 ? Patient oral hypoglycemic agent held on admission placed on long-acting insulin with sliding scale coverage 14. Depression with anxiety ? Plan is to resume home meds once patient has been extubated 15. DVT prophylaxis ? Patient is on heparin Time spent in the patient's overall evaluation,decision-making process, review of diagnostic data, adjustment of management, discussion with other providers, nursing nursing and ancillary staff involved in patient's care documentation, 50 Minutes Charges/Coding Visit Charges Inpatient E&M: 77953 Subs Hosp L3 07/26/25 0904 <Electronically signed by Jonel Lorenzo MD> Cosigner Signature (if applicable): CC: ~ Signed [facility] Work Phone: Progress note Author William Chavez [facility] Note Date/Time July 26, 2025 1 0:09am [facility] Medical Records Department [address] [place] [address] Progress Note - Integrated Pest Management Technician 07/26/25 0758 MR#: [id number] Acct: [id number] Name: ORVILLEDECLANWING Rep #:[id number] : 1945 80 From: William Chavez DO PCP: LILI STOREY Status:ADM IN Location: ICU ICU03-1 Assessment & Plan Assessment/Plan (1) Acute on chronic respiratory failure with hypoxia and hypercapnia: PLAN: Plan RECOMMENDATIONS: 1. Continue assist-control mode of mechanical ventilation. Wean FiO2 and PEEP as tolerated. 2. Continue propofol and fentanyl for sedation. 3. Continue bronchodilators and steroids. 4. Continue to hold heparin drip until endoscopic evaluation is completed. 5. Tentative plans for upper endoscopy this afternoon. 6. Plan to move forward with spontaneous awakening and breathing trial beginning tomorrow morning. 7. Continue appropriate GI prophylaxis. IMPRESSIONS: 1. Acute on chronic combined respiratory failure Most likely related to COPD exacerbation in the setting of aspiration pneumonia. The patient is at high risk for further aspiration events given her history of dysphagia and concern for achalasia. For now, the patient will be continued on assist- control mode of mechanical ventilation. Antimicrobials will be continuedto complete 7 days of therapy. Will continue scheduled bronchodilators and steroids. Ultimately, we will hold off on proceeding with any trials of extubation until the patient endoscopic workup has been completed later today. 2. History of dysphagia/GERD/questionable achalasia Gastroenterology consulted with tentative plans for endoscopic evaluation today. Continue PPI therapy in the interim. 3. Atrial fibrillation with RVR Continue to hold heparin until endoscopic evaluation is completed. Echocardiogram revealed intact, normal systolic function. 4. History of chronic kidney disease/anemia/allergic rhinitis/history of CVA/hypertension/diabetes mellitus/tobacco dependency Complicates care, management, recovery and prognosis. Continue supportive measures as noted above. TIME: 32 minutes of critical care time, independent of procedures, was spent addressing the patient's acute on chronic combined respiratory failure, history of dysphagia, atrial fibrillation with RVR, review of all data and collaborationwith the care team. Subjective Subjective The patient was seen and examined at the bedside this morning. Events from the last 24 hours have been reviewed. The patient is currently afebrile, hemodynamically stable and maintaining appropriate oxygen saturations on assist-control mode of mechanical ventilation with an FiO2 requirement of 30% and PEEP of 5. The patient's heparin drip is currently on hold, with tentative plans forendoscopic evaluation this afternoon. White blood cell count this morning was noted to be 11,000 with a hemoglobin of 9.3 g/dL. BUN and creatinine are elevated at 83 and 2.42, respectively. Objective Data Objective Data The patient's most recent lab work, culture data and imaging studies have all been personally reviewed. Surface echocardiogram demonstrated mild concentric LVH with an ejection fraction of 70% and stage I diastolic dysfunction. Infectious workup has been unrevealing to date. Vital Signs: Vital Signs Temp Pulse Resp BP Pulse Ox O2 Del Method O2 Flow Rate 98.2 F 108 H 16 121/86 H 97 Mechanical Ventilator 4 07/26/25 04:00 07/26/25 06:58 07/26/25 06:58 07/26/25 06:00 07/26/25 06:58 07/26/25 06:00 07/22/25 21:16 FiO2 30 07/26/25 06:00 Oxygen Flow Rate (L/min) 4 Oxygen Delivery Method Mechanical Ventilator Weight: 188 lb 0.869 oz Body Mass Index (BMI) 29.4 Intake & Output: Intake and Output for Last 24 Hours 07/24/25 07/25/25 07/26/25 23:59 23:59 23:59 Intake Total 2048.19 / 2065.59 1140.47 / 1140.47 394.25 / 394.25 Output Total 735 / 735 1200 / 1400 275 / 275 Balance 1313.19 / 1330.59 -59.53 / -259.53 119.25 / 119.25 Lab / Micro Data Attestation: I reviewed the patient's lab results. 07/26/25 05:33 07/26/25 05:33 Labs: Laboratory Results - last 24 hr 07/25/25 06:41: POC Glucose 183 H 07/25/25 08:15: APTT 63.1 H 07/25/25 11:20: POC Glucose 156 H 07/25/25 14:05: APTT 73.9 H 07/25/25 17:24: POC Glucose 141 H 07/26/25 00:13: POC Glucose 163 H 07/26/25 05:33: WBC 11.6 H, RBC 3.08 L, Hgb 9.3 L, Hct 28.9 L, MCV 93.8, MCH 30.2, MCHC 32.2, RDW Std Deviation 46.2 H, RDW Coeff of Tessa 13.4, Plt Count 337,MPV 9.7, Neut % (Auto) Not Reportable, Absolute Neuts (auto) 9.9 H, Absolute Lymphs (auto) 0.93, Total Counted 100, Neutrophils % (Manual) 85 H, Lymphocytes % (Manual) 8 L, Monocytes % (Manual) 5, Metamyelocytes % 1, Myelocytes % 1 H, Platelet Estimate ADEQUATE, Anisocytosis 1+, Tear Drop Cells RARE, Ovalocytes 2+, APTT 93.9 H*, Sodium 138, Potassium 4.7, Chloride 106, Carbon Dioxide 17.7 L, Anion Gap 14, BUN 83 H, Creatinine 2.42 H, Estim Creat Clear Calc 21.15 L, EstGFR (MDRD) Non-Af 20 L, BUN/Creatinine Ratio 34.4 H, Glucose 185 H, Calcium 7.9 Micro: Microbiology 07/22/25 22:05 Sputum, Induced/Lukens Gram Stain - Final 07/22/25 22:05 Sputum, Induced/Lukens Respiratory Culture - Final Mixed normal respiratory michelle. No Streptococcus pneumoniae, beta-hemolytic Streptococcus or Staphylococcus aureus isolated. 07/22/25 12:32 Blood Culture (Wb) - Anticubital Left Blood Culture - Preliminary No growth in 48 hours. 07/22/25 12:32 Blood Culture (Wb) - Anticubital Right Blood Culture - Preliminary No growth in 48 hours. 07/22/25 13:09 Urine, Catheterized Urine Culture - Final Culture exhibits no growth. 07/22/25 20:49 Mucosa - Nasopharyngeal Respiratory Panel (PCR) - Final 07/22/25 12:30 Mucosa - Nose SARS-CoV-2, Influenza & RSV (PCR) - Final ABG Data ABG results: ABG 07/25/25 05:58 Specimen Type ART Sample Site R Radial pH 7.48 H Bicarbonate Actual 20.4 L Total CO2 21 Base Excess -3 L O2 Saturation 99 O2 % 30.0 ABG pCO2 27.1 L ABG pO2 118 H Miranda Test Positive Respiration Rate 16 O2 Delivery Device Adult Vent Vent Mode AC Tidal Volume 400.0 POC PEEP 5 Radiography Diagnostic Testing: Radiology Impression Chest X-Ray 07/25/25 05:05 IMPRESSION: Tubes and lines in position. There is cardiomegaly with central vascular congestion and congestive changes. Reading Location: [facility] Physical Exam Const Constitutional Narrative: Intubated, sedated and mechanically ventilated. HEENT normocephalic and head/scalp atraumatic Mouth: endotracheal tube in place and OG tube in place Eyes EOMs intact bilaterally and conjunctivae normal Neck supple General: trachea midline Chest inspection of chest normal Resp Auscultation: diminished lung sounds; Negative for rales, rhonchi or wheezes Cardio S1 normal heart sound and S2 normal heart sound Rate: tachycardic Rhythm: abnormal rhythm GI normal to inspection, nondistended, normoactive bowel sounds Extremity no clubbing, cyanosis or edema Skin no rashes or lesions noted Neuro Sensorium / Orientation: sedated on vent Charges/Coding Procedures Hospitalists Procedures: 53030 Critical Care 1st Hr 07/26/25 1009 <Electronically signed by William Chavez DO> Cosigner Signature (if applicable): CC: ~ Signed [facility] Work Phone: Progress note Author Jonel Lorenzo [facility] Note Date/Time July 27, 2025 7 :57am [facility] Medical Records Department [address] [place] [address] Progress Note - Hospitalist 07/27/25721 MR#: [id number] Acct: [id number] Name: WING LIN Rep #:[id number] : 1945 80 From: Jonel Lorenzo MD PCP: LILI STOREY Status:ADM IN Location: ICU ICU03-1 Reason for Visit Chief Complaint: Worsening shortness of breath Subjective Subjective Patient underwent EGD findings and procedures performed as documented below. Patient currently awake on the vent and undergoing weaning trial Objective Data Objective Data Vital Signs: Vital Signs Temp Pulse Resp BP Pulse Ox O2 Del Method O2 Flow Rate 98.7 F 133 H 17 149/101 H 94 Mechanical Ventilator 4 07/27/25 07:00 07/27/25 07:00 07/27/25 07:00 07/27/25 07:00 07/27/25 07:00 07/27/25 07:00 07/22/25 21:16 FiO2 30 07/27/25 07:00 Oxygen Flow Rate (L/min) 4 Oxygen Delivery Method Mechanical Ventilator Weight: 86.9 kg Body Mass Index (BMI) 30.0 Intake & Output: Intake and Output for Last 24 Hours 07/25/25 07/26/25 07/27/25 23:59 23:59 23:59 Intake Total 1140.47 / 1199.87 1197.05 / 1212.25 815.37 / 815.37 Output Total 1200 / 1400 650 / 650 Balance -59.53 / -200.13 547.05 / 562.25 815.37 / 815.37 Lab / Micro Data 07/27/25 05:40 07/27/25 05:40 Labs: Laboratory Results - last 24 hr 07/26/25 09:24: POC Glucose 176 H 07/26/25 11:28: POC Glucose 174 H 07/26/25 17:42: POC Glucose 124 H 07/27/25 00:01: POC Glucose 51 L 07/27/25 00:45: POC Glucose 123 H 07/27/25 05:13: POC Glucose 53 L 07/27/25 05:40: WBC 12.9 H, RBC 3.20 L, Hgb 9.7 L, Hct 29.8 L, MCV 93.1, MCH 30.3, MCHC 32.6, RDW Std Deviation 46.5 H, RDW Coeff of Tessa 13.5, Plt Count 359,MPV 9.5, Neut % (Auto) Not Reportable, Absolute Neuts (auto) 9.5 H, Absolute Lymphs (auto) 2.30, Total Counted 100, Neutrophils % (Manual) 74 H, Lymphocytes % (Manual) 18 L, Monocytes % (Manual) 3, Metamyelocytes % 4 H, Myelocytes % 1 H,Diff Path Review February, Platelet Estimate ADEQUATE, RBC Morphology NORM C+C, APTT 25.8, Sodium 135, Potassium 3.9, Chloride 104, Carbon Dioxide 18.2 L, AnionGap 13, BUN 92 H, Creatinine 2.59 H, Estim Creat Clear Calc 19.94 L, Est GFR (MDRD) Non-Af 18 L, BUN/Creatinine Ratio 35.3 H, Glucose 179 H, Calcium 7.9 07/27/25 05:48: POC Glucose 147 H Micro: Microbiology 07/22/25 22:05 Sputum, Induced/Lukens Gram Stain - Final 07/22/25 22:05 Sputum, Induced/Lukens Respiratory Culture - Final Mixed normal respiratory michelle. No Streptococcus pneumoniae, beta-hemolytic Streptococcus or Staphylococcus aureus isolated. 07/22/25 12:32 Blood Culture (Wb) - Anticubital Left Blood Culture - Preliminary No growth in 48 hours. 07/22/25 12:32 Blood Culture (Wb) - Anticubital Right Blood Culture - Preliminary No growth in 48 hours. 07/22/25 13:09 Urine, Catheterized Urine Culture - Final Culture exhibits no growth. 07/22/25 20:49 Mucosa - Nasopharyngeal Respiratory Panel (PCR) - Final 07/22/25 12:30 Mucosa - Nose SARS-CoV-2, Influenza & RSV (PCR) - Final Physical Exam Narrative GENERAL: Awake on the vent on the vent HEENT: Atraumatic; ET tube in place EYES; Anicteric, Normal Conjunctiva NECK; supple, normal thyroid, RESPIRATORY: Diminished to auscultation CARDIOVASCULAR: Regular S1 S2, GI: soft, normoactive bowel sounds, : No Renal angle tenderness; EXTREMITIES: No edema, no clubbing, MUSCULOSKELETAL: no muscle wasting NEURO: Awake on the vent able to follow simple commands SKIN: Excoriations of lower extremities Assessment & Plan Assessment/Plan (1) Acute on chronic respiratory failure with hypoxia and hypercapnia: (2) Dysphagia: (3) Esophageal dysmotility: (4) Paroxysmal atrial fibrillation with RVR: PLAN: Plan Patient is a 80-year-old lady who presented to the emergency department in respiratory distress. Was initially placed on BiPAP however clinical condition deteriorated resulting in patient being intubated and admitted to the intensive care unit. CT of the scan showed dilated esophagus with air-fluid levels GI subsequently consulted 1. Acute on chronic hypoxic and hypercapnic respiratory failure ? Multifactorial including aspiration pneumonia as well as congestive heart failure. Patient was initially managed with noninvasive ventilation BiPAP however respiratory status continued to deteriorate resulting in patient being intubated on 2025. ? 07/26/2025 patient remains awake on the vent with plans to undergo weaning trial following her EGD ? 07/27/2025; awake on the vent currently undergoing weaning trial 2. Suspected aspiration pneumonia based on CT finding of severely dilated esophagus. CT again demonstrated airspace opacities in lower lungs consistent with pneumonia. Patient remains onZosyn 3. Dilated esophagus ? With concern for achalasia. CT obtained on 2025 demonstrated dilated esophagus with ingested material consistent with gastroesophageal reflux. Patient is on PPI consult placed to GI plan is for patient to undergo endoscopy with intervention by Dr. Nguyen on 07/25/2025 ? 07/26/2025; patient EGD scheduled for this a.m. ? 07/27/2025; patient underwent EGD findings and procedures performed as below Impressions : - Food in the esophagus. Removal was successful. - Benign-appearing esophageal stenosis. Dilated. - Abnormal esophageal motility, consistent with achalasia. - No gross lesions in the entire stomach. - Gastric stenosis was found at the pylorus. - No gross lesions in the duodenal bulb. 4. Acute congestive heart failure with preserved ejection fraction ? Patient was managed with diuretic therapy with furosemide echo ordered today show Mild concentric left ventricular hypertrophy. The left ventricular ejection fraction is 70 %. Stage 1 diastolic dysfunction. The left atrium is moderately enlarged. Mild mitral annular calcification. 5. New onset A-fib with RVR - Heart rates in the 140s to 160s patient was started on amiodarone drip. Patient was placed on systemic anticoagulation with heparin with plans to transition to apixaban on discharge ? 07/27/2025; patient heart rate control still not optimal remains on amiodaronedrip. Plan is to transition to p.o. once patient comes off the vent 6. Anemia ? Secondary to chronic disorder monitoring H&H and transfuse if patient becomes symptomatic or hemoglobin falls below 7 7. Acute kidney injury ? Superimposed on chronic kidney disease stage III. Baseline creatinine 1.88 creatinine on admission was 2.04. Patient creatinine peaked at 2.57. Kidney ultrasound did not show any abnormalities. Consult placed to nephrology 8. Acute on chronic debility with recent mechanical fall - Patient lives alone at baseline but daughter lives close; Patient has had issues with movement since her fall 2 weeks ago; PT/OT is consulted and will work with patient more when she is extubated - Case management/social work consultation for assistance with discharge planning 9. Chronic hypoxic respiratory failure secondary to COPD -Baseline dependence on 4 L continuous. 10. History of stroke/TIAs ? Patient is on antiplatelet therapy with aspirin 11. Dyslipidemia ?Patient is on statin therapy, continued at home dose 12. Essential hypertension ? Patient blood pressure control remains stable 13. Diabetes mellitus type 2 ? Patient oral hypoglycemic agent held on admission placed on long-acting insulin with sliding scale coverage 14. Depression with anxiety ? Plan is to resume home meds once patient has been extubated 15. DVT prophylaxis ? Patient is on heparin Time spent in the patient's overall evaluation,decision-making process, review of diagnostic data, adjustment of management, discussion with other providers, nursing nursing and ancillary staff involved in patient's care documentation, 52 Minutes Charges/Coding Visit Charges Inpatient E&M: 15163 Subs Hosp L3 07/27/25 0757 <Electronically signed by Jonel Lorenzo MD> Cosigner Signature (if applicable): CC: ~ Signed [facility] Work Phone: Progress note Author William Chavez [facility] Note Date/Time July 27, 2025 8 :58am [facility] Medical Records Department [address] [place] [address] Progress Note - Integrated Pest Management Technician 07/27/25 0727 MR#: [id number] Acct: [id number] Name: WING LIN Rep #:[id number] : 1945 80 From: William Chavez DO PCP: LILI STOREY Status:ADM IN Location: ICU ICU03-1 Assessment & Plan Assessment/Plan (1) Acute on chronic respiratory failure with hypoxia and hypercapnia: PLAN: Plan RECOMMENDATIONS: 1. Proceed with a trial of extubation this morning. 2. Once extubated, wean supplemental oxygen to maintain saturations at or above90%. 3. Continue scheduled bronchodilators. Okay to stop corticosteroids at this time. 4. Antibiotics to complete 7 days of therapy. 5. Speech therapy to evaluate the patient once extubated. 6. Continue amiodarone. 7. Encourage incentive spirometer use and mobilize patient as tolerated. IMPRESSIONS: 1. Acute on chronic combined respiratory failure Most likely related to COPD exacerbation in the setting of aspiration pneumonia. The patient is at high risk for further aspiration events given her history of dysphagia and concern for achalasia. The patient underwent upper endoscopy on July 26 and is status post esophageal dilation due to stenosis. The patient has improved from a respiratory perspective with antimicrobials, bronchodilatorsand steroids. She completed a spontaneous breathing trial this morning and willtherefore be extubated. Once extubated, wean supplemental oxygen to maintain saturations at or above 90%. The patient will be continued on antibiotics to complete 7 days of therapy. Corticosteroids will be discontinued today. Recommend speech therapy evaluate the patient prior to advancement of diet, following extubation. 2. History of dysphagia/GERD/questionable achalasia and esophageal stenosis status post dilation Gastroenterology following to assist with medical management. 3. Atrial fibrillation with RVR Continue heparin infusion and amiodarone. Echocardiogram revealed intact, normal systolic function. 4. History of chronic kidney disease/anemia/allergic rhinitis/history of CVA/hypertension/diabetes mellitus/tobacco dependency Complicates care, management, recovery and prognosis. Continue supportive measures as noted above. PT/OT to work with the patient. TIME: 35 minutes of critical care time, independent of procedures, was spent addressing the patient's acute on chronic combined respiratory failure, history of dysphagia, atrial fibrillation with RVR, review of all data and collaborationwith the care team. Subjective Subjective The patient was seen and examined at the bedside this morning. Events from the last 24 hours have been reviewed. The patient is currently afebrile, hemodynamically stable and maintaining appropriate oxygen saturations on assist-control mode of mechanical ventilation with an FiO2 requirement of 30% and PEEP of 5. The patient tolerated endoscopic evaluation yesterday without issue. Jerilyn in atrial fibrillation with RVR. The patient is currently documented isabel overall net +1.6 L for the hospitalization. White blood cell count was notedto be 13,000. Hemoglobin and platelet count are stable. Creatinine is elevatedat 2.59. The patient was able to complete a spontaneous awakening trial this morning. She is alert and able to follow commands appropriately. Accordingly, the patient completed a spontaneous breathing trial without complication. Therefore, the patient was extubated. Objective Data Objective Data The patient's most recent lab work, culture data and imaging studies have all been personally reviewed. Surface echocardiogram demonstrated mild concentric LVH with an ejection fraction of 70% and stage I diastolic dysfunction. Infectious workup has been unrevealing to date. Vital Signs: Vital Signs Temp Pulse Resp BP Pulse Ox O2 Del Method O2 Flow Rate 98.7 F 121 H 18 149/101 H 94 Mechanical Ventilator 4 07/27/25 07:00 07/27/25 07:22 07/27/25 07:22 07/27/25 07:00 07/27/25 07:22 07/27/25 07:22 07/22/25 21:16 FiO2 30 07/27/25 07:22 Oxygen Flow Rate (L/min) 4 Oxygen Delivery Method Mechanical Ventilator Weight: 191 lb 9.307 oz Body Mass Index (BMI) 30.0 Intake & Output: Intake and Output for Last 24 Hours 07/25/25 07/26/25 07/27/25 23:59 23:59 23:59 Intake Total 1140.47 / 1199.87 1197.05 / 1212.25 815.37 / 815.37 Output Total 1200 / 1400 650 / 650 Balance -59.53 / -200.13 547.05 / 562.25 815.37 / 815.37 Lab / Micro Data Attestation: I reviewed the patient's lab results. 07/27/25 05:40 07/27/25 05:40 Labs: Laboratory Results - last 24 hr 07/26/25 09:24: POC Glucose 176 H 07/26/25 11:28: POC Glucose 174 H 07/26/25 17:42: POC Glucose 124 H 07/27/25 00:01: POC Glucose 51 L 07/27/25 00:45: POC Glucose 123 H 07/27/25 05:13: POC Glucose 53 L 07/27/25 05:40: WBC 12.9 H, RBC 3.20 L, Hgb 9.7 L, Hct 29.8 L, MCV 93.1, MCH 30.3, MCHC 32.6, RDW Std Deviation 46.5 H, RDW Coeff of Tessa 13.5, Plt Count 359,MPV 9.5, Neut % (Auto) Not Reportable, Absolute Neuts (auto) 9.5 H, Absolute Lymphs (auto) 2.30, Total Counted 100, Neutrophils % (Manual) 74 H, Lymphocytes % (Manual) 18 L, Monocytes % (Manual) 3, Metamyelocytes % 4 H, Myelocytes % 1 H,Diff Path Review May , Platelet Estimate ADEQUATE, RBC Morphology NORM C+C, APTT 25.8, Sodium 135, Potassium 3.9, Chloride 104, Carbon Dioxide 18.2 L, AnionGap 13, BUN 92 H, Creatinine 2.59 H, Estim Creat Clear Calc 19.94 L, Est GFR (MDRD) Non-Af 18 L, BUN/Creatinine Ratio 35.3 H, Glucose 179 H, Calcium 7.9 07/27/25 05:48: POC Glucose 147 H Micro: Microbiology 07/22/25 22:05 Sputum, Induced/Lukens Gram Stain - Final 07/22/25 22:05 Sputum, Induced/Lukens Respiratory Culture - Final Mixed normal respiratory michelle. No Streptococcus pneumoniae, beta-hemolytic Streptococcus or Staphylococcus aureus isolated. 07/22/25 12:32 Blood Culture (Wb) - Anticubital Left Blood Culture - Preliminary No growth in 48 hours. 07/22/25 12:32 Blood Culture (Wb) - Anticubital Right Blood Culture - Preliminary No growth in 48 hours. 07/22/25 13:09 Urine, Catheterized Urine Culture - Final Culture exhibits no growth. 07/22/25 20:49 Mucosa - Nasopharyngeal Respiratory Panel (PCR) - Final 07/22/25 12:30 Mucosa - Nose SARS-CoV-2, Influenza & RSV (PCR) - Final ABG Data ABG results: ABG 07/25/25 05:58 Specimen Type ART Sample Site R Radial pH 7.48 H Bicarbonate Actual 20.4 L Total CO2 21 Base Excess -3 L O2 Saturation 99 O2 % 30.0 ABG pCO2 27.1 L ABG pO2 118 H Miranda Test Positive Respiration Rate 16 O2 Delivery Device Adult Vent Vent Mode AC Tidal Volume 400.0 POC PEEP 5 Radiography Diagnostic Testing: Radiology Impression Chest X-Ray 07/25/25 05:05 IMPRESSION: Tubes and lines in position. There is cardiomegaly with central vascular congestion and congestive changes. Reading Location: [facility] Physical Exam Const Constitutional Narrative: Currently tolerating spontaneous mode of mechanical ventilation. General Appearance: patient mechanically ventilated HEENT normocephalic and head/scalp atraumatic Mouth: endotracheal tube in place and OG tube in place Eyes EOMs intact bilaterally and conjunctivae normal Neck supple General: trachea midline Chest inspection of chest normal Resp Auscultation: diminished lung sounds; Negative for rales, rhonchi or wheezes Cardio S1 normal heart sound and S2 normal heart sound Rate: tachycardic Rhythm: abnormal rhythm GI normal to inspection, nondistended, normoactive bowel sounds Extremity no clubbing, cyanosis or edema Skin no rashes or lesions noted Neuro Neuro Narrative: Alert and able to follow simple commands appropriately. Charges/Coding Procedures Hospitalists Procedures: 34506 Critical Care 1st Hr 07/27/25 0858 <Electronically signed by William Chavez DO> Cosigner Signature (if applicable): CC: ~ Signed [facility] Work Phone: progress note Author Doris Jeffries [facility] Note Date/Time July 28, 2025 1 2:13am [facility] Medical Records Department [address] [place] [address] Progress Note - Hospitalist 07/27/251919 MR#: [id number] Acct: [id number] Name: DELIAWING Rep #:[id number] : 1945 80 From: Doris Goel PCP: LILI STOREY Status:ADM IN Location: ICU ICU03-1 Hospitalist Note Due to increased incidences of hypoglycemia, changed fingerstick glucometer checks to q4h while strict NPO. Continue D5 1/2NS for IVF. 07/28/25 0013 <Electronically signed by Doris PEARSON> Cosigner Signature (if applicable): CC: ~ Signed [facility] Work Phone: progress note Author Jonel Lorenzo [facility] Note Date/Time July 28, 2025 9 :16am [facility] Medical Records Department [address] [place] [address] Progress Note - Hospitalist 07/28/25 0714 MR#: [id number] Acct: [id number] Name: DELIAWING Rep #:[id number] : 1945 80 From: Jonel Lorenzo MD PCP: LILI STOREY Status:ADM IN Location: ICU ICU03-1 Reason for Visit Chief Complaint: Worsening shortness of breath Subjective Subjective Patient was successfully weaned off the vent the day prior. Plan is for patientto undergo speech and swallow eval prior to resumption of oral diet Objective Data Objective Data Vital Signs: Vital Signs Temp Pulse Resp BP Pulse Ox O2 Del Method O2 Flow Rate 98.0 F 127 H 17 157/87 H 93 Nasal Cannula 4 07/28/25 02:00 07/28/25 06:00 07/28/25 06:00 07/28/25 06:00 07/28/25 06:00 07/28/25 06:00 07/28/25 06:00 FiO2 30 07/27/25 08:00 Oxygen Flow Rate (L/min) 4 Oxygen Delivery Method Nasal Cannula Weight: 86.2 kg Body Mass Index (BMI) 29.8 Intake & Output: Intake and Output for Last 24 Hours 07/26/25 07/27/25 07/28/25 23:59 23:59 23:59 Intake Total 1197.05 / 1212.25 1563.68 / 1563.68 Output Total 650 / 650 475 / 475 1999 Balance 547.05 / 562.25 1541.08 / 1541.08 -436.32 / -436.32 Lab / Micro Data 07/28/25 04:44 07/28/25 04:44 Labs: Laboratory Results - last 24 hr 07/27/25 05:40: Absolute Neuts (auto) 9.5 H, Absolute Lymphs (auto) 2.30, Total Counted 100, Neutrophils % (Manual) 74 H, Lymphocytes % (Manual) 18 L, Monocytes% (Manual) 3, Metamyelocytes % 4 H, Myelocytes % 1 H, Diff Path Review February,Platelet Estimate ADEQUATE, RBC Morphology NORM C+C 07/27/25 12:10: POC Glucose 57 L 07/27/25 13:00: APTT 33.4 07/27/25 17:37: POC Glucose 45 L 07/27/25 18:18: POC Glucose 101 07/27/25 20:00: APTT 61.3 H, Glucose 73 07/28/25 00:30: POC Glucose 81 07/28/25 04:44: WBC 19.3 H, RBC 3.43 L, Hgb 10.4 L, Hct 32.7 L, MCV 95.3, MCH 30.3, MCHC 31.8 L, RDW Std Deviation 47.8 H, RDW Coeff of Tessa 13.7, Plt Count 376, MPV 9.6, Neut % (Auto) Not Reportable, Absolute Neuts (auto) 17.0 H, Absolute Lymphs (auto) 0.97, Total Counted 100, Neutrophils % (Manual) 84 H, Band Neutrophils % 4, Lymphocytes % (Manual) 5 L, Monocytes % (Manual) 2, Eosinophils % (Manual) 1, Metamyelocytes % 2 H, Myelocytes % 2 H, Toxic Vacuolation 1+, Platelet Estimate ADEQUATE, Polychromasia 1+, Anisocytosis 1+, Ovalocytes 2+, APTT 95.2 H*, Sodium 134, Potassium 3.9, Chloride 104, Carbon Dioxide 15.3 L, Anion Gap 15, BUN 78 H, Creatinine 2.34 H, Estim Creat Clear Calc 22.07 L, Est GFR (MDRD) Non-Af 21 L, BUN/Creatinine Ratio 33.2 H, Glucose 214 H, Calcium 7.9 07/28/25 06:01: POC Glucose 114 H Micro: Microbiology 07/22/25 12:32 Blood Culture (Wb) - Anticubital Left Blood Culture - Final No growth in 5 days. 07/22/25 12:32 Blood Culture (Wb) - Anticubital Right Blood Culture - Final No growth in 5 days. 07/22/25 22:05 Sputum, Induced/Lukens Gram Stain - Final 07/22/25 22:05 Sputum, Induced/Lukens Respiratory Culture - Final Mixed normal respiratory michelle. No Streptococcus pneumoniae, beta-hemolytic Streptococcus or Staphylococcus aureus isolated. 07/22/25 13:09 Urine, Catheterized Urine Culture - Final Culture exhibits no growth. 07/22/25 20:49 Mucosa - Nasopharyngeal Respiratory Panel (PCR) - Final 07/22/25 12:30 Mucosa - Nose SARS-CoV-2, Influenza & RSV (PCR) - Final Physical Exam Narrative GENERAL: cooperative HEENT: Atraumatic; normocephalic EYES; Anicteric, Normal Conjunctiva NECK; supple, normal thyroid, RESPIRATORY: Diminished to auscultation CARDIOVASCULAR: Regular S1 S2, GI: soft, normoactive bowel sounds, : No Renal angle tenderness; EXTREMITIES: No edema, no clubbing, MUSCULOSKELETAL: no muscle wasting NEURO: Awake; no lateralizing signs. SKIN: Excoriations on lower extremities PSYCH; Flat affect Assessment & Plan Assessment/Plan (1) Acute on chronic respiratory failure with hypoxia and hypercapnia: (2) Dysphagia: (3) Esophageal dysmotility: (4) Paroxysmal atrial fibrillation with RVR: PLAN: Plan Patient is a 80-year-old lady who presented to the emergency department in respiratory distress. Was initially placed on BiPAP however clinical condition deteriorated resulting in patient being intubated and admitted to the intensive care unit. CT of the scan showed dilated esophagus with air-fluid levels GI subsequently consulted 1. Acute on chronic hypoxic and hypercapnic respiratory failure ? Multifactorial including aspiration pneumonia as well as congestive heart failure. Patient was initially managed with noninvasive ventilation BiPAP however respiratory status continued to deteriorate resulting in patient being intubated on 2025. ? 07/26/2025 patient remains awake on the vent with plans to undergo weaning trial following her EGD ? 07/27/2025; awake on the vent currently undergoing weaning trial ?07/28/2025; patient was assessed with a weaned off the vent the day prior. 2. Suspected aspiration pneumonia based on CT finding of severely dilated esophagus. CT again demonstrated airspace opacities in lower lungs consistent with pneumonia. Patient remains onZosyn 3. Dilated esophagus ? With concern for achalasia. CT obtained on 2025 demonstrated dilated esophagus with ingested material consistent with gastroesophageal reflux. Patient is on PPI consult placed to GI plan is for patient to undergo endoscopy with intervention by Dr. Nguyen on 07/25/2025 ? 07/26/2025; patient EGD scheduled for this a.m. ? 07/27/2025; patient underwent EGD findings and procedures performed as below Impressions : - Food in the esophagus. Removal was successful. - Benign-appearing esophageal stenosis. Dilated. - Abnormal esophageal motility, consistent with achalasia. - No gross lesions in the entire stomach. - Gastric stenosis was found at the pylorus. - No gross lesions in the duodenal bulb. 07/28/2025; patient scheduled to undergo speech and swallow eval 4. Acute congestive heart failure with preserved ejection fraction ? Patient was managed with diuretic therapy with furosemide echo ordered today show Mild concentric left ventricular hypertrophy. The left ventricular ejection fraction is 70 %. Stage 1 diastolic dysfunction. The left atrium is moderately enlarged. Mild mitral annular calcification. 5. New onset A-fib with RVR - Heart rates in the 140s to 160s patient was started on amiodarone drip. Patient was placed on systemic anticoagulation with heparin with plans to transition to apixaban on discharge ? 07/27/2025; patient heart rate control still not optimal remains on amiodaronedrip. Plan is to transition to p.o. once patient comes off the vent ? 07/28/2025; patient remains on amiodarone drip plan is to transition to p.o. following patient's speech and swallow eval 6. Anemia ? Secondary to chronic disorder monitoring H&H and transfuse if patient becomes symptomatic or hemoglobin falls below 7 7. Acute kidney injury ? Superimposed on chronic kidney disease stage III. Baseline creatinine 1.88 creatinine on admission was 2.04. Patient creatinine peaked at 2.57. Kidney ultrasound did not show any abnormalities. Consult placed to nephrology ? 07/28/2025; patient kidney function remains elevated 8. Acute on chronic debility with recent mechanical fall - Patient lives alone at baseline but daughter lives close; Patient has had issues with movement since her fall 2 weeks ago; PT/OT is consulted and will work with patient more when she is extubated - Case management/social work consultation for assistance with discharge planning 9. Chronic hypoxic respiratory failure secondary to COPD -Baseline dependence on 4 L continuous. 10. History of stroke/TIAs ? Patient is on antiplatelet therapy with aspirin 11. Dyslipidemia ?Patient is on statin therapy, continued at home dose 12. Essential hypertension ? Patient blood pressure control remains stable 13. Diabetes mellitus type 2 ? Patient oral hypoglycemic agent held on admission placed on long-acting insulin with sliding scale coverage 14. Depression with anxiety ? Plan is to resume home meds once patient has been extubated 15. DVT prophylaxis ? Patient is on heparin Time spent in the patient's overall evaluation,decision-making process, review of diagnostic data, adjustment of management, discussion with other providers, nursing nursing and ancillary staff involved in patient's care documentation, 50 Minutes Charges/Coding Visit Charges Inpatient E&M: 96595 Subs Hosp L3 07/28/25 0916 <Electronically signed by Jonel Lorenzo MD> Cosigner Signature (if applicable): CC: ~ Signed [facility] Work Phone: Progress note Author William Chavez [facility] Note Date/Time July 28, 2025 8 :34am [facility] Medical Records Department [address] [place] [address] Progress Note - Integrated Pest Management Technician 07/28/2530 MR#: [id number] Acct: [id number] Name: WING LIN Rep #:[id number] : 1945 80 From: William Chavez DO PCP: LILI STOREY Status:ADM IN Location: ICU ICU03-1 Assessment & Plan Assessment/Plan (1) Acute on chronic respiratory failure with hypoxia and hypercapnia: PLAN: Plan RECOMMENDATIONS: 1. Supplemental oxygen to maintain saturations at or above 90%. 2. Continue scheduled Atrovent. 3. Antimicrobials to complete 7 days of therapy. 4. Continue amiodarone and heparin. 5. Tentative plans for modified barium swallow today. 6. Dietary advancement per speech therapy. 7. Encourage incentive spirometer use and mobilize patient as tolerated. IMPRESSIONS: 1. Acute on chronic combined respiratory failure Improved. Most likely related to COPD exacerbation in the setting of aspirationpneumonia. The patient is at high risk for further aspiration events given her history of dysphagia and concern for achalasia. The patient underwent upper endoscopy on July 26 and is status post esophageal dilation due to stenosis. The patient has improved from a respiratory perspective with antimicrobials, bronchodilators and steroids. Accordingly, the patient was able to be extubatedon July 27. Plan to continue to wean supplemental oxygen to maintain saturations at or above 90%. She will be continued on antibiotics to complete 7days of therapy. Will defer dietary advancement to speech therapy, with plans for modified barium swallow to be completed. 2. History of dysphagia/GERD/questionable achalasia and esophageal stenosis status post dilation Gastroenterology following to assist with medical management. 3. Atrial fibrillation with RVR Continue heparin infusion and amiodarone. Echocardiogram revealed intact, normal systolic function. Once the patient is able to tolerate p.o. intake, beta- nancie can be introduced. 4. History of chronic kidney disease/anemia/allergic rhinitis/history of CVA/hypertension/diabetes mellitus/tobacco dependency Complicates care, management, recovery and prognosis. Continue supportive measures as noted above. PT/OT to work with the patient. This note was generated with [employer] dictation software. It may contain incorrectwords, spelling, and punctuation that were not noted in checking the note beforesigning. Subjective Subjective The patient was seen and examined at the bedside this morning. Events from the last 24 hours have been reviewed. The patient is currently afebrile, hemodynamically stable and maintaining appropriate oxygen saturations on 3 L/minvia nasal cannula. The patient remains in atrial fibrillation. Her blood cell count is elevated at 19,000 with a hemoglobin of 10.4 g/dL and platelet count of376,000. Creatinine is stable at 2.34. Objective Data Objective Data The patient's most recent lab work, culture data and imaging studies have all been personally reviewed. Surface echocardiogram demonstrated mild concentric LVH with an ejection fraction of 70% and stage I diastolic dysfunction. Infectious workup has been unrevealing to date. Vital Signs: Vital Signs Temp Pulse Resp BP Pulse Ox O2 Del Method O2 Flow Rate 98.0 F 127 H 17 157/87 H 93 Nasal Cannula 4 07/28/25 02:00 07/28/25 06:00 07/28/25 06:00 07/28/25 06:00 07/28/25 06:00 07/28/25 06:00 07/28/25 06:00 FiO2 30 07/27/25 08:00 Oxygen Flow Rate (L/min) 4 Oxygen Delivery Method Nasal Cannula Weight: 190 lb 0.615 oz Body Mass Index (BMI) 29.8 Intake & Output: Intake and Output for Last 24 Hours 07/26/25 07/27/25 07/28/25 23:59 23:59 23:59 Intake Total 1197.05 / 1212.25 1563.68 / 1563.68 Output Total 650 / 650 475 / 475 1999 / 1999 Balance 547.05 / 562.25 1541.08 / 1541.08 -436.32 / -436.32 Lab / Micro Data Attestation: I reviewed the patient's lab results. 07/28/25 04:44 07/28/25 04:44 Labs: Laboratory Results - last 24 hr 07/27/25 12:10: POC Glucose 57 L 07/27/25 13:00: APTT 33.4 07/27/25 17:37: POC Glucose 45 L 07/27/25 18:18: POC Glucose 101 07/27/25 20:00: APTT 61.3 H, Glucose 73 07/28/25 00:30: POC Glucose 81 07/28/25 04:44: WBC 19.3 H, RBC 3.43 L, Hgb 10.4 L, Hct 32.7 L, MCV 95.3, MCH 30.3, MCHC 31.8 L, RDW Std Deviation 47.8 H, RDW Coeff of Tessa 13.7, Plt Count 376, MPV 9.6, Neut % (Auto) Not Reportable, Absolute Neuts (auto) 17.0 H, Absolute Lymphs (auto) 0.97, Total Counted 100, Neutrophils % (Manual) 84 H, Band Neutrophils % 4, Lymphocytes % (Manual) 5 L, Monocytes % (Manual) 2, Eosinophils % (Manual) 1, Metamyelocytes % 2 H, Myelocytes % 2 H, Toxic Vacuolation 1+, Platelet Estimate ADEQUATE, Polychromasia 1+, Anisocytosis 1+, Ovalocytes 2+, APTT 95.2 H*, Sodium 134, Potassium 3.9, Chloride 104, Carbon Dioxide 15.3 L, Anion Gap 15, BUN 78 H, Creatinine 2.34 H, Estim Creat Clear Calc 22.07 L, Est GFR (MDRD) Non-Af 21 L, BUN/Creatinine Ratio 33.2 H, Glucose 214 H, Calcium 7.9 07/28/25 06:01: POC Glucose 114 H Micro: Microbiology 07/22/25 12:32 Blood Culture (Wb) - Anticubital Left Blood Culture - Final No growth in 5 days. 07/22/25 12:32 Blood Culture (Wb) - Anticubital Right Blood Culture - Final No growth in 5 days. 07/22/25 22:05 Sputum, Induced/Lukens Gram Stain - Final 07/22/25 22:05 Sputum, Induced/Lukens Respiratory Culture - Final Mixed normal respiratory michelle. No Streptococcus pneumoniae, beta-hemolytic Streptococcus or Staphylococcus aureus isolated. 07/22/25 13:09 Urine, Catheterized Urine Culture - Final Culture exhibits no growth. 07/22/25 20:49 Mucosa - Nasopharyngeal Respiratory Panel (PCR) - Final 07/22/25 12:30 Mucosa - Nose SARS-CoV-2, Influenza & RSV (PCR) - Final ABG Data ABG results: ABG 07/25/25 05:58 Specimen Type ART Sample Site R Radial pH 7.48 H Bicarbonate Actual 20.4 L Total CO2 21 Base Excess -3 L O2 Saturation 99 O2 % 30.0 ABG pCO2 27.1 L ABG pO2 118 H Miranda Test Positive Respiration Rate 16 O2 Delivery Device Adult Vent Vent Mode AC Tidal Volume 400.0 POC PEEP 5 Radiography Diagnostic Testing: Radiology Impression Chest X-Ray 07/25/25 05:05 IMPRESSION: Tubes and lines in position. There is cardiomegaly with central vascular congestion and congestive changes. Reading Location: [facility] Physical Exam Const alert and no apparent distress General Appearance: cooperative HEENT normocephalic and head/scalp atraumatic Eyes EOMs intact bilaterally and conjunctivae normal Neck supple General: trachea midline Chest inspection of chest normal Resp Auscultation: diminished lung sounds; Negative for rales, rhonchi or wheezes Cardio S1 normal heart sound and S2 normal heart sound Rate: tachycardic Rhythm: abnormal rhythm GI normal to inspection, nondistended, normoactive bowel sounds Extremity no clubbing, cyanosis or edema Skin no rashes or lesions noted Neuro CN's II-XII intact bilaterally and no focal motor deficits Psych Mood & Affect: flat affect Charges/Coding Visit Charges Inpatient E&M: 37902 Subs Hosp L3 07/28/25 0834 <Electronically signed by William Chavez DO> Cosigner Signature (if applicable): CC: ~ Signed [facility] Work Phone: Progress note Author Kamron Nguyen [facility] Note Date/Time July 28, 2025 6 :18pm [facility] Medical Records Department [address] [place] [address] Progress Note 07/28/25 1812 MR#: [id number] Acct: [id number] Name: WING LIN Rep #:[id number] : 1945 80 From: Kamron Nguyen DO PCP: LILI STOREY Status:ADM IN Location: ICU ICU03-1 Progress Note 80-year-old lady with a history of achalasia. She was recently admitted to the Intensive Care Unit (ICU) for respiratory distress caused by a solid food impaction in her esophagus. She was initially managed with non-invasive ventilation (BiPAP), but her condition worsened, necessitating intubation. A computed tomography (CT) scan revealed a dilated esophagus with air-fluid levels. * Intervention:?An upper endoscopy was performed to remove the impacted food. Her clinical condition improved, allowing for successful extubation. * Relevant History:?Post-extubation, she underwent a swallowing study which identified severe oropharyngeal and esophageal dysphagia with aspiration, placing her at high risk for aspiration pneumonia. * Nutrition:?She requires an alternative method of nutrition due to her inability to safely swallow food or liquids. Physical Exam Const alert and no apparent distress General Appearance: cooperative HEENT normocephalic and head/scalp atraumatic Eyes EOMs intact bilaterally and conjunctivae normal Neck supple General: trachea midline Chest inspection of chest normal Resp Auscultation: diminished lung sounds; Negative for rales, rhonchi or wheezes Cardio S1 normal heart sound and S2 normal heart sound Rate: tachycardic Rhythm: abnormal rhythm GI normal to inspection, nondistended, normoactive bowel sounds Extremity no clubbing, cyanosis or edema Skin no rashes or lesions noted Neuro CN's II-XII intact bilaterally and no focal motor deficits Psych Mood & Affect: flat affect Assessment & Plan Assessment/Plan (1) Esophageal dysmotility: (2) Acute on chronic respiratory failure with hypoxia and hypercapnia: (3) Dysphagia: PLAN: Assessment * Severe dysphagia with aspiration:?The patient's inability to safely manage her secretions and consume food and fluids orally places her at significant risk for aspiration pneumonia. The oropharyngeal and esophageal components of her dysphagia contribute to this risk. * Achalasia:?The underlying achalasia, which caused the esophageal food impaction and subsequent respiratory failure, remains a long-term condition requiring management. * Nutritional risk:?The patient cannot maintain adequate nutrition or hydration through oral intake alone, necessitating alternative nutritional support. * Decision for PEG tube:?The risk of repeated aspiration outweighs the benefits of attempting oral intake, making a non-oral route for nutrition and hydration medically necessary. A PEG tube is an appropriate option for long-term enteral feeding. Plan * Proceed with PEG tube placement:?Placement of a percutaneous endoscopic gastrostomy tube is recommended for providing long-term nutrition and hydration. She is already on Unasyn so she should not need any antibiotics. * Nutritional Consultation:?Consult with a registered dietitian to establish an appropriate feeding regimen and formula once the PEG tube is placed. * Patient and Family Education:?Educate the patient and her family on the purpose of the PEG tube, the placement procedure, and subsequent care. Emphasize the importance of following the feeding plan to prevent complications. * Ongoing care: * Continue to monitor her respiratory status and ensure proper oral hygiene to minimize the risk of aspiration pneumonia. * Further discussion regarding long-term management of her achalasia? Visit Charges Inpatient E&M: 01902 Subs Hosp L3 07/28/251817 <Electronically signed by Kamron Friend DO> Kamron Friend DO Cosigner Signature (if applicable): CC: ~ Signed [facility] Work Phone: Progress note Author Jonel Lorenzo [facility] Note Date/Time July 29, 2025 8 :20am [facility] Medical Records Department [address] [facility] [facility] [place] [address] Progress Note - Hospitalist 07/29/25816 MR#: [id number] Acct: [id number] Name: WING LIN Rep #:[id number] : 1945 80 From: Jonel Lorenzo MD PCP: LILI STOREY Status:ADM IN Location: ICU ICU03-1 Reason for Visit Chief Complaint: Worsening shortness of breath Subjective Subjective Patient did fill her speech and swallow eval. Dr. Nguyen reconciled. Plan is for patient to undergo PEG tube placement Objective Data Objective Data Vital Signs: Vital Signs Temp Pulse Resp BP Pulse Ox O2 Del Method O2 Flow Rate 98.2 F 114 H 15 150/92 H 94 Nasal Cannula 4 07/29/25 04:00 07/29/25 07:00 07/29/25 07:00 07/29/25 07:00 07/29/25 07:00 07/29/25 07:00 07/29/25 07:00 FiO2 30 07/27/25 08:00 Oxygen Flow Rate (L/min) 4 Oxygen Delivery Method Nasal Cannula Weight: 86.5 kg Body Mass Index (BMI) 29.8 Intake & Output: Intake and Output for Last 24 Hours 07/27/25 07/28/25 07/29/25 23:59 23:59 23:59 Intake Total 3046.38 / 3046.38 1263.32 / 1263.32 Output Total 475 / 475 3375 / 3375 1850 / 1850 Balance 1541.08 / 1541.08 -328.62 / -328.62 -586.68 / -586.68 Lab / Micro Data 07/29/25 04:50 07/29/25 04:50 Labs: Laboratory Results - last 24 hr 07/28/25 10:31: POC Glucose 139 H 07/28/25 13:30: APTT 169.4 H* 07/28/25 14:08: POC Glucose 144 H 07/28/25 14:58: APTT 34.8 07/28/25 17:41: POC Glucose 185 H 07/28/25 23:37: POC Glucose 122 H 07/29/25 04:50: WBC 13.6 H, RBC 3.17 L, Hgb 9.8 L, Hct 30.4 L, MCV 95.9, MCH 30.9, MCHC 32.2, RDW Std Deviation 47.9 H, RDW Coeff of Tessa 13.7, Plt Count 330,MPV 9.8, Neut % (Auto) Not Reportable, Absolute Neuts (auto) 10.2 H, Absolute Lymphs (auto) 1.64, Total Counted 100, Neutrophils % (Manual) 75 H, Lymphocytes % (Manual) 12 L, Monocytes % (Manual) 2, Eosinophils % (Manual) 3, Metamyelocytes % 1, Myelocytes % 6 H, Promyelocytes % 1 H, Platelet Estimate ADEQUATE, RBC Morphology NORM C+C, Sodium 140, Potassium 3.8, Chloride 110 H, Carbon Dioxide 19.3 L, Anion Gap 11, BUN 56 H, Creatinine 1.67 H, Estim Creat Clear Calc 30.81 L, Est GFR (MDRD) Non-Af 31 L, BUN/Creatinine Ratio 33.2 H, Glucose 215 H, Calcium 8.7 07/29/25 05:49: POC Glucose 129 H Micro: Microbiology 07/22/25 12:32 Blood Culture (Wb) - Anticubital Left Blood Culture - Final No growth in 5 days. 07/22/25 12:32 Blood Culture (Wb) - Anticubital Right Blood Culture - Final No growth in 5 days. 07/22/25 22:05 Sputum, Induced/Lukens Gram Stain - Final 07/22/25 22:05 Sputum, Induced/Lukens Respiratory Culture - Final Mixed normal respiratory michelle. No Streptococcus pneumoniae, beta-hemolytic Streptococcus or Staphylococcus aureus isolated. 07/22/25 13:09 Urine, Catheterized Urine Culture - Final Culture exhibits no growth. 07/22/25 20:49 Mucosa - Nasopharyngeal Respiratory Panel (PCR) - Final 07/22/25 12:30 Mucosa - Nose SARS-CoV-2, Influenza & RSV (PCR) - Final Radiography Diagnostic Testing: Radiology Impression Chest X-Ray 07/28/25 14:45 IMPRESSION: No pneumothorax following PICC line placement. Removal of endotracheal and nasogastric tubes. Reading Location: [facility] Physical Exam Narrative GENERAL: cooperative HEENT: Atraumatic; normocephalic EYES; Anicteric, Normal Conjunctiva NECK; supple, normal thyroid, RESPIRATORY: Diminished to auscultation CARDIOVASCULAR: Regular S1 S2, GI: soft, normoactive bowel sounds, : No Renal angle tenderness; EXTREMITIES: No edema, no clubbing, MUSCULOSKELETAL: no muscle wasting NEURO: Awake; no lateralizing signs. SKIN: Excoriations on lower extremities PSYCH; Flat affect Assessment & Plan Assessment/Plan (1) Acute on chronic respiratory failure with hypoxia and hypercapnia: (2) Dysphagia: (3) Esophageal dysmotility: (4) Paroxysmal atrial fibrillation with RVR: PLAN: Plan Patient is a 80-year-old lady who presented to the emergency department in respiratory distress. Was initially placed on BiPAP however clinical condition deteriorated resulting in patient being intubated and admitted to the intensive care unit. CT of the scan showed dilated esophagus with air-fluid levels GI subsequently consulted 1. Acute on chronic hypoxic and hypercapnic respiratory failure ? Multifactorial including aspiration pneumonia as well as congestive heart failure. Patient was initially managed with noninvasive ventilation BiPAP however respiratory status continued to deteriorate resulting in patient being intubated on 2025. ? 07/26/2025 patient remains awake on the vent with plans to undergo weaning trial following her EGD ? 07/27/2025; awake on the vent currently undergoing weaning trial ?07/28/2025; patient was successfully weaned off the vent the day prior. ? 07/29/2025; patient remains on nasal cannula 2. Suspected aspiration pneumonia based on CT finding of severely dilated esophagus. CT again demonstrated airspace opacities in lower lungs consistent with pneumonia. Patient remains onZosyn 3. Dilated esophagus ? With concern for achalasia. CT obtained on 2025 demonstrated dilated esophagus with ingested material consistent with gastroesophageal reflux. Patient is on PPI consult placed to GI plan is for patient to undergo endoscopy with intervention by Dr. Nguyen on 07/25/2025 ? 07/26/2025; patient EGD scheduled for this a.m. ? 07/27/2025; patient underwent EGD findings and procedures performed as below Impressions : - Food in the esophagus. Removal was successful. - Benign-appearing esophageal stenosis. Dilated. - Abnormal esophageal motility, consistent with achalasia. - No gross lesions in the entire stomach. - Gastric stenosis was found at the pylorus. - No gross lesions in the duodenal bulb. 07/28/2025; patient scheduled to undergo speech and swallow eval ? 07/29/2025; patient did feel her bedside swallow eval Dr. Nguyen recontacted plan is for patient to undergo PEG tube placement 4. Acute congestive heart failure with preserved ejection fraction ? Patient was managed with diuretic therapy with furosemide echo ordered today show Mild concentric left ventricular hypertrophy. The left ventricular ejection fraction is 70 %. Stage 1 diastolic dysfunction. The left atrium is moderately enlarged. Mild mitral annular calcification. 5. New onset A-fib with RVR - Heart rates in the 140s to 160s patient was started on amiodarone drip. Patient was placed on systemic anticoagulation with heparin with plans to transition to apixaban on discharge ? 07/27/2025; patient heart rate control still not optimal remains on amiodaronedrip. Plan is to transition to p.o. once patient comes off the vent ? 07/28/2025; patient remains on amiodarone drip plan is to transition to p.o. following patient's speech and swallow eval ? 07/29/2025; discontinued amiodarone drip patient started on p.o. amiodarone 20mg p.o. twice daily patient is on bisoprolol at night discontinued that started patient on metoprolol 25 mg twice daily 6. Anemia ? Secondary to chronic disorder monitoring H&H and transfuse if patient becomes symptomatic or hemoglobin falls below 7 7. Acute kidney injury ? Superimposed on chronic kidney disease stage III. Baseline creatinine 1.88 creatinine on admission was 2.04. Patient creatinine peaked at 2.57. Kidney ultrasound did not show any abnormalities. Consult placed to nephrology ? 07/28/2025; patient kidney function remains elevated 8. Acute on chronic debility with recent mechanical fall - Patient lives alone at baseline but daughter lives close; Patient has had issues with movement since her fall 2 weeks ago; PT/OT is consulted and will work with patient more when she is extubated - Case management/social work consultation for assistance with discharge planning 9. Chronic hypoxic respiratory failure secondary to COPD -Baseline dependence on 4 L continuous. 10. History of stroke/TIAs ? Patient is on antiplatelet therapy with aspirin 11. Dyslipidemia ?Patient is on statin therapy, continued at home dose 12. Essential hypertension ? Patient blood pressure control remains stable 13. Diabetes mellitus type 2 ? Patient oral hypoglycemic agent held on admission placed on long-acting insulin with sliding scale coverage 14. Depression with anxiety ? Plan is to resume home meds once patient has been extubated 15. DVT prophylaxis ? Patient is on heparin Time spent in the patient's overall evaluation,decision-making process, review of diagnostic data, adjustment of management, discussion with other providers, nursing nursing and ancillary staff involved in patient's care documentation, 36 Minutes Charges/Coding Visit Charges Inpatient E&M: 71529 Subs Hosp L2 07/29/25819 <Electronically signed by Jonel Lorenzo MD> Cosigner Signature (if applicable): CC: ~ Signed [facility] Work Phone: Progress note Author William Chavez [facility] Note Date/Time July 29, 2025 8 :54am [facility] Medical Records Department [address] [place] [address] Progress Note - Integrated Pest Management Technician 07/29/25829 MR#: [id number] Acct: [id number] Name: DELIAWING Rep #:[id number] : 1945 80 From: William Chavez DO PCP: LILI STOREY Status:ADM IN Location: ICU ICU03-1 Assessment & Plan Assessment/Plan (1) Acute on chronic respiratory failure with hypoxia and hypercapnia: PLAN: Plan RECOMMENDATIONS: 1. Supplemental oxygen to maintain saturations at or above 90%. 2. Continue scheduled Atrovent. 3. Proceed with PEG tube placement. 4. Continue amiodarone. Heparin on hold for possible procedure. 5. Encourage incentive spirometer use and mobilize patient as tolerated. 6. Will sign off from a critical care perspective. Please call with any additional questions. IMPRESSIONS: 1. Acute on chronic combined respiratory failure Improved. Most likely related to COPD exacerbation in the setting of aspirationpneumonia. The patient is at high risk for further aspiration events given her history of dysphagia and concern for achalasia. The patient underwent upper endoscopy on July 26 and is status post esophageal dilation due to stenosis. The patient has improved from a respiratory perspective with antimicrobials, bronchodilators and steroids. Accordingly, the patient was able to be extubatedon July 27. Plan to continue to wean supplemental oxygen to maintain saturations at or above 90%. She will be continued on antibiotics to complete 7days of therapy. Unfortunately, the patient failed her modified barium swallow and is at high risk for further aspiration events. Therefore, recommend proceeding with PEG tube placement to facilitate nutritional support. 2. History of dysphagia/GERD/questionable achalasia and esophageal stenosis status post dilation Gastroenterology following to assist with medical management. Tentative plans for PEG tube placement. 3. Atrial fibrillation with RVR Continue heparin infusion and amiodarone. Echocardiogram revealed intact, normal systolic function. Once the patient is able to tolerate p.o. intake, beta- nancie can be introduced. 4. History of chronic kidney disease/anemia/allergic rhinitis/history of CVA/hypertension/diabetes mellitus/tobacco dependency Complicates care, management, recovery and prognosis. Continue supportive measures as noted above. PT/OT to work with the patient. This note was generated with [employer] dictation software. It may contain incorrectwords, spelling, and punctuation that were not noted in checking the note beforesigning. Subjective Subjective The patient was seen and examined at the bedside this morning. Events from the last 24 hours have been reviewed. The patient is currently afebrile, hemodynamically stable and maintaining appropriate oxygen saturations on 4 L/minvia nasal cannula. Given the patient's results of her modified barium swallow with evidence of overt aspiration and recommendation for n.p.o., I did call and speak with gastroenterology regarding the feasibility of PEG tube placement. The patient remains in atrial fibrillation. She is documented to be overall net+1.5 L for the hospitalization. White blood cell count is mildly elevated at 13,000. Hemoglobin and platelet count are stable. Creatinine has improved at 1.67. Glucose levels have stabilized. Objective Data Objective Data The patient's most recent lab work, culture data and imaging studies have all been personally reviewed. Surface echocardiogram demonstrated mild concentric LVH with an ejection fraction of 70% and stage I diastolic dysfunction. Infectious workup has been unrevealing to date. Vital Signs: Vital Signs Temp Pulse Resp BP Pulse Ox O2 Del Method O2 Flow Rate 98.2 F 114 H 15 150/92 H 94 Nasal Cannula 4 07/29/25 04:00 07/29/25 07:00 07/29/25 07:00 07/29/25 07:00 07/29/25 07:00 07/29/25 07:00 07/29/25 07:00 FiO2 30 07/27/25 08:00 Oxygen Flow Rate (L/min) 4 Oxygen Delivery Method Nasal Cannula Weight: 190 lb 11.198 oz Body Mass Index (BMI) 29.8 Intake & Output: Intake and Output for Last 24 Hours 07/27/25 07/28/25 07/29/25 23:59 23:59 23:59 Intake Total 3046.38 / 3046.38 1308.41 / 1308.41 Output Total 475 / 475 3375 / 3375 1850 / 1850 Balance 1541.08 / 1541.08 -328.62 / -328.62 -541.59 / -541.59 Lab / Micro Data Attestation: I reviewed the patient's lab results. 07/29/25 04:50 07/29/25 04:50 Labs: Laboratory Results - last 24 hr 07/28/25 10:31: POC Glucose 139 H 07/28/25 13:30: APTT 169.4 H* 07/28/25 14:08: POC Glucose 144 H 07/28/25 14:58: APTT 34.8 07/28/25 17:41: POC Glucose 185 H 07/28/25 23:37: POC Glucose 122 H 07/29/25 04:50: WBC 13.6 H, RBC 3.17 L, Hgb 9.8 L, Hct 30.4 L, MCV 95.9, MCH 30.9, MCHC 32.2, RDW Std Deviation 47.9 H, RDW Coeff of Tessa 13.7, Plt Count 330,MPV 9.8, Neut % (Auto) Not Reportable, Absolute Neuts (auto) 10.2 H, Absolute Lymphs (auto) 1.64, Total Counted 100, Neutrophils % (Manual) 75 H, Lymphocytes % (Manual) 12 L, Monocytes % (Manual) 2, Eosinophils % (Manual) 3, Metamyelocytes % 1, Myelocytes % 6 H, Promyelocytes % 1 H, Platelet Estimate ADEQUATE, RBC Morphology NORM C+C, Sodium 140, Potassium 3.8, Chloride 110 H, Carbon Dioxide 19.3 L, Anion Gap 11, BUN 56 H, Creatinine 1.67 H, Estim Creat Clear Calc 30.81 L, Est GFR (MDRD) Non-Af 31 L, BUN/Creatinine Ratio 33.2 H, Glucose 215 H, Calcium 8.7 07/29/25 05:49: POC Glucose 129 H Micro: Microbiology 07/22/25 12:32 Blood Culture (Wb) - Anticubital Left Blood Culture - Final No growth in 5 days. 07/22/25 12:32 Blood Culture (Wb) - Anticubital Right Blood Culture - Final No growth in 5 days. 07/22/25 22:05 Sputum, Induced/Lukens Gram Stain - Final 07/22/25 22:05 Sputum, Induced/Lukens Respiratory Culture - Final Mixed normal respiratory michelle. No Streptococcus pneumoniae, beta-hemolytic Streptococcus or Staphylococcus aureus isolated. 07/22/25 13:09 Urine, Catheterized Urine Culture - Final Culture exhibits no growth. 07/22/25 20:49 Mucosa - Nasopharyngeal Respiratory Panel (PCR) - Final 07/22/25 12:30 Mucosa - Nose SARS-CoV-2, Influenza & RSV (PCR) - Final ABG Data ABG results: ABG 07/25/25 05:58 Specimen Type ART Sample Site R Radial pH 7.48 H Bicarbonate Actual 20.4 L Total CO2 21 Base Excess -3 L O2 Saturation 99 O2 % 30.0 ABG pCO2 27.1 L ABG pO2 118 H Miranda Test Positive Respiration Rate 16 O2 Delivery Device Adult Vent Vent Mode AC Tidal Volume 400.0 POC PEEP 5 Radiography Diagnostic Testing: Radiology Impression Chest X-Ray 07/28/25 14:45 IMPRESSION: No pneumothorax following PICC line placement. Removal of endotracheal and nasogastric tubes. Reading Location: [facility] Physical Exam Const alert and no apparent distress General Appearance: cooperative HEENT normocephalic and head/scalp atraumatic Eyes EOMs intact bilaterally and conjunctivae normal Neck supple General: trachea midline Chest inspection of chest normal Resp Auscultation: diminished lung sounds; Negative for rales, rhonchi or wheezes Cardio S1 normal heart sound and S2 normal heart sound Rate: tachycardic Rhythm: abnormal rhythm GI normal to inspection, nondistended, normoactive bowel sounds Extremity no clubbing, cyanosis or edema Skin no rashes or lesions noted Neuro CN's II-XII intact bilaterally and no focal motor deficits Psych Mood & Affect: flat affect Charges/Coding Visit Charges Inpatient E&M: 76638 Subs Hosp L2 07/29/25 0854 <Electronically signed by William Chavez DO> Cosigner Signature (if applicable): CC: ~ Signed [facility] Work Phone: Progress note Author [employer] Porter [facility] Note Date/Time July 30, 2025 1 2:14pm [facility] Medical Records Department [address] [place] [address] Progress Note - Hospitalist 07/30/25 1002 MR#: [id number] Acct: [id number] Name: WING LIN Rep #:[id number] : 1945 80 From: Gena Porter MD PCP: LILI STOREY Status:ADM IN Location: ICU ICU03-1 Reason for Visit Chief Complaint: Worsening shortness of breath Subjective Subjective Patient resting comfortably in chair, wakes up, still short of breath but reports it is at baseline, still having some cough with some sputum production, no she is at [facility] but when asked what year it was she repeated [facility] Objective Data Objective Data Vital Signs: Vital Signs Temp Pulse Resp BP Pulse Ox O2 Del Method O2 Flow Rate 97.5 F L 118 H 16 160/92 H 94 Nasal Cannula 4 07/30/25 02:00 07/30/25 06:35 07/30/25 06:35 07/30/25 02:00 07/30/25 06:35 07/30/25 06:35 07/30/25 06:35 FiO2 30 07/29/25 11:51 Oxygen Flow Rate (L/min) 4 Oxygen Delivery Method Nasal Cannula Weight: 84.7 kg Body Mass Index (BMI) 29.2 Intake & Output: Intake and Output for Last 24 Hours 07/28/25 07/29/25 07/30/25 23:59 23:59 23:59 Intake Total 3046.38 / 3046.38 2708.41 / 2708.41 872.5 / 872.5 Output Total 3375 / 3375 4101 / 4101 600 / 600 Balance -328.62 / -328.62 -1392.59 / -1392.59 272.5 / 272.5 Lab / Micro Data 07/29/25 04:50 07/29/25 04:50 Labs: Laboratory Results - last 24 hr 07/27/25 19:40: POC Glucose 73 L 07/27/25 19:50: POC Glucose 66 L 07/29/25 11:00: POC Glucose 156 H 07/29/25 17:04: POC Glucose 118 H 07/29/25 23:26: POC Glucose 135 H 07/30/25 05:52: POC Glucose 109 H Micro: Microbiology 07/22/25 12:32 Blood Culture (Wb) - Anticubital Left Blood Culture - Final No growth in 5 days. 07/22/25 12:32 Blood Culture (Wb) - Anticubital Right Blood Culture - Final No growth in 5 days. 07/22/25 22:05 Sputum, Induced/Lukens Gram Stain - Final 07/22/25 22:05 Sputum, Induced/Lukens Respiratory Culture - Final Mixed normal respiratory michelle. No Streptococcus pneumoniae, beta-hemolytic Streptococcus or Staphylococcus aureus isolated. 07/22/25 13:09 Urine, Catheterized Urine Culture - Final Culture exhibits no growth. 07/22/25 20:49 Mucosa - Nasopharyngeal Respiratory Panel (PCR) - Final 07/22/25 12:30 Mucosa - Nose SARS-CoV-2, Influenza & RSV (PCR) - Final Physical Exam Narrative General: Wakes up and answers questions though seems to be a little bit confused HEENT: Atraumatic, Eyes: Anicteric Neck: Supple Respiratory: Normal respiratory effort, diminished bilaterally Cardiovascular: Irregularly irregular, intermittently tachycardic GI: Soft, nontender, nondistended Extremities: No edema Musculoskeletal: Moving all extremities Neuro: No overt focal neurological deficits Skin: No rashes appreciated Psych: Cooperative Assessment & Plan Assessment/Plan (1) Acute on chronic respiratory failure with hypoxia and hypercapnia: PLAN: Plan 80-year-old female history of depression, GERD, diabetes, hypertension, CKD, COPD, CVA, chronic hypoxic respiratory failure on home O2 presented to [facility] ED 2025 with increasing shortness of breath. On arrival ABG showed pH 7.18, pCO2 58, pO2 60 on nasal cannula. She was subsequently placed on BiPAP and had CTA which showed no PE but did show cardiomegaly with bilateral pleural effusions and airspace opacities in lower lungs concerning for atelectasis versus pneumonia. Also showed dilated esophagus with ingested material consistent with GERD. Patient was given DuoNebs, IV Solu-Medrol, and a dose of IV Lasix and had improvement and was placed back on 4 L nasal cannula saturating in the mid 90s and hospitalist contacted for admission for concern for COPD and CHF exacerbations as well as possible dysphagia with aspiration pneumonia. Overnight however patient developed increased work of breathing again and patient placed back on BiPAP however continued to have increased work of breathing with stridorous breath sounds so patient was moved to the ICU and underwent endotracheal intubation. During intubation patient had copious secretions from her esophagus. # Acute hypoxic hypercapnic respiratory failure on chronic hypoxic respiratory failure suspected to be secondary to aspiration pneumonia - On arrival ABG showed pH 7.18, pCO2 58, pO2 60 on nasal cannula - CTA with bilateral pleural effusions and airspace opacities concerning for atelectasis versus pneumonia - Patient initially on BiPAP with improvement however patient was noted to have increased respiratory distress and required intubation 2025 with significant esophageal secretions noted during intubation - Suspect aspiration pneumonia - Patient placed on antibiotics - Ipratropium nebs -Slightly improved and was able to be extubated 07/27 - GI management for achalasia leading to aspiration as below # Dysphagia secondary to achalasia - Patient with concerns for dysphagia and scans showed esophageal contents on presentation -Additionally during intubation patient with significant esophageal secretions -GI consulted -Patient underwent EGD 07/26/2025 which showed food still in the esophagus with removal, esophageal stenosis which was dilated and abnormal esophageal motility consistent with achalasia, additionally gastric stenosis found at the pylorus -Despite dilation with EGD patient was still unable to manage secretions and maintain p.o. intake safely so patient had PEG tube placed 07/29/2025 -Nutrition consult # New onset with A-fib with RVR -Went into A-fib with RVR in the beginning of patient's hospitalization and she was started on amiodarone drip and anticoagulation -Echocardiogram had already been completed with stage I diastolic dysfunction, EF 70%, moderate large amount of left atrium with no significant valvular abnormalities -Patient transitioned to amiodarone due to and metoprolol and G-tube #Acute exacerbation of chronic heart failure with preserved ejection fraction -proBNP 5405 - CTA with bilateral pleural effusions - Patient received diuresis during hospitalization - Echocardiogram with stage I diastolic dysfunction and LVEF of 70 -Daily weights, I's and O's #Hx CVA - Patient to be switched to full dose anticoagulation given new onset A-fib # BENITO on CKD?BENITO resolved - Patient's baseline creatinine seems to be around 1.8, presentation was 2.04 however peaked at 2.59 on 07/27/2025 -Renal ultrasound obtained which showed bilateral generalized atrophy - This a.m. is 1.67 #Type 2 diabetes mellitus -Glucose checks and sliding scale insulin -Patient presently on D5, with lowest dose of sliding scale possible, patient has had some episodes of hypoglycemia, nutrition consult #Depression/anxiety -Continue home medications -May need to consider alternate psych regimen depending what will be able to be given down G-tube # Chronic hypoxic respiratory failure secondary to COPD -Patient presently on 4 L nasal cannula -Patient on ipratropium nebs and albuterol held due to patient's tachycardia #Hypertension - On beta-nancie and losartan # Debility -Will need SNF prior to discharge -Case management consult for discharge planning, SNF referrals have been made #DVT ppx: On full dose anticoagulation Gena Porter MD Time spent in the patient's overall evaluation, decision-making process, review of diagnostic data, adjustment of management, discussion with other providers, nursing and ancillary staff involved in patient's care documentation, 56 Minutes Charges/Coding Visit Charges Inpatient E&M: 27964 Subs Hosp L3 07/30/25 1214 <Electronically signed by Gena Porter MD> Cosigner Signature (if applicable): CC: ~ Signed [facility] Work Phone: Progress note Author Gena Porter [facility] Note Date/Time July 31, 2025 5 :39pm [facility] Medical Records Department [facility] [place] [address] Progress Note - Hospitalist 07/31/25 1520 MR#: [id number] Acct: [id number] Name: WING LIN Rep #:[id number] : 1945 80 From: Gena Porter MD PCP: LILI STOREY Status:ADM IN Location: [place] [address] Reason for Visit Chief Complaint: Worsening shortness of breath Subjective Subjective Beginning to feel better today, breathing at baseline, little bit more awake andalert, tolerating tube feeds at goal Objective Data Objective Data Vital Signs: Vital Signs Temp Pulse Resp BP Pulse Ox O2 Del Method O2 Flow Rate 98.2 F 109 H 16 118/84 H 97 Nasal Cannula 4 07/31/25 09:50 07/31/25 13:13 07/31/25 13:13 07/31/25 09:50 07/31/25 09:50 07/31/25 09:50 07/31/25 12:00 FiO2 30 07/29/25 11:51 Oxygen Flow Rate (L/min) 4 Oxygen Delivery Method Nasal Cannula Weight: 84.3 kg Body Mass Index (BMI) 29.1 Intake & Output: Intake and Output for Last 24 Hours 07/29/25 07/30/25 07/31/25 23:59 23:59 23:59 Intake Total 2708.41 / 2708.41 2032.75 / 2032.75 693.42 / 693.42 Output Total 4101 / 4101 1655 / 1655 250 / 250 Balance -1392.59 / -1392.59 377.75 / 377.75 443.42 / 443.42 Lab / Micro Data 07/31/25 05:23 07/31/25 05:23 Labs: Laboratory Results - last 24 hr 07/30/25 18:04: POC Glucose 150 H 07/30/25 23:25: POC Glucose 109 H 07/31/25 05:23: WBC 11.9 H, RBC 3.01 L, Hgb 9.2 L, Hct 29.4 L, MCV 97.7, MCH 30.6, MCHC 31.3 L, RDW Std Deviation 49.6 H, RDW Coeff of Tessa 14.3, Plt Count 317, MPV 10.0, Sodium 140, Potassium 4.1, Chloride 110 H, Carbon Dioxide 19.7 L,Anion Gap 11, BUN 29 H, Creatinine 1.44 H, Estim Creat Clear Calc 35.35 L, Est GFR (MDRD) Non- Af 37 L, BUN/Creatinine Ratio 20.2 H, Glucose 240 H, Calcium 8.4 07/31/25 05:55: POC Glucose 238 H 07/31/25 11:23: POC Glucose 228 H Micro: Microbiology 07/22/25 12:32 Blood Culture (Wb) - Anticubital Left Blood Culture - Final No growth in 5 days. 07/22/25 12:32 Blood Culture (Wb) - Anticubital Right Blood Culture - Final No growth in 5 days. 07/22/25 22:05 Sputum, Induced/Lukens Gram Stain - Final 07/22/25 22:05 Sputum, Induced/Lukens Respiratory Culture - Final Mixed normal respiratory michelle. No Streptococcus pneumoniae, beta-hemolytic Streptococcus or Staphylococcus aureus isolated. 07/22/25 13:09 Urine, Catheterized Urine Culture - Final Culture exhibits no growth. 07/22/25 20:49 Mucosa - Nasopharyngeal Respiratory Panel (PCR) - Final 07/22/25 12:30 Mucosa - Nose SARS-CoV-2, Influenza & RSV (PCR) - Final Physical Exam Narrative General: Alert, answers questions appropriately, no acute distress HEENT: Atraumatic, normocephalic Eyes: Anicteric, normal conjunctiva, extraocular movements grossly intact Neck: Supple Respiratory: Fairly normal respiratory effort, slight crackles at the bases Cardiovascular: Low-grade tachycardia, irregular GI: Soft, nontender, nondistended Extremities: No edema, does have slight draining area on medial malleolus without any pus or significant erythema or purulence to suggest underlying active infection Musculoskeletal: Moving all extremities Neuro: No overt focal neurological deficits Skin: Chronic changes on lower extremity and area on medial malleolus on the left ankle as above Psych: Cooperative Assessment & Plan Assessment/Plan (1) Acute on chronic respiratory failure with hypoxia and hypercapnia: PLAN: Plan 80-year-old female history of depression, GERD, diabetes, hypertension, CKD, COPD, CVA, chronic hypoxic respiratory failure on home O2 presented to [facility] ED 2025 with increasing shortness of breath. On arrival ABG showed pH 7.18, pCO2 58, pO2 60 on nasal cannula. She was subsequently placed on BiPAP and had CTA which showed no PE but did show cardiomegaly with bilateral pleural effusions and airspace opacities in lower lungs concerning for atelectasis versus pneumonia. Also showed dilated esophagus with ingested material consistent with GERD. Patient was given DuoNebs, IV Solu-Medrol, and a dose of IV Lasix and had improvement and was placed back on 4 L nasal cannula saturating in the mid 90s and hospitalist contacted for admission for concern for COPD and CHF exacerbations as well as possible dysphagia with aspiration pneumonia. Overnight however patient developed increased work of breathing again and patient placed back on BiPAP however continued to have increased work of breathing with stridorous breath sounds so patient was moved to the ICU and underwent endotracheal intubation. During intubation patient had copious secretions from her esophagus. # Acute hypoxic hypercapnic respiratory failure on chronic hypoxic respiratory failure suspected to be secondary to aspiration pneumonia - On arrival ABG showed pH 7.18, pCO2 58, pO2 60 on nasal cannula - CTA with bilateral pleural effusions and airspace opacities concerning for atelectasis versus pneumonia - Patient initially on BiPAP with improvement however patient was noted to have increased respiratory distress and required intubation 2025 with significant esophageal secretions noted during intubation - Suspect aspiration pneumonia - Patient placed on antibiotics - Ipratropium nebs -Slightly improved and was able to be extubated 07/27 - GI management for achalasia leading to aspiration as below -07/31: Patient 94% on 4 L nasal cannula, tolerating PEG tube with tube feeds atgoal, plan is for placement # Dysphagia secondary to achalasia - Patient with concerns for dysphagia and scans showed esophageal contents on presentation -Additionally during intubation patient with significant esophageal secretions -GI consulted -Patient underwent EGD 07/26/2025 which showed food still in the esophagus with removal, esophageal stenosis which was dilated and abnormal esophageal motility consistent with achalasia, additionally gastric stenosis found at the pylorus -Despite dilation with EGD patient was still unable to manage secretions and maintain p.o. intake safely so patient had PEG tube placed 07/29/2025 -Nutrition consult -07/31: Continue tube feeds, tolerating well at this time # New onset with A-fib with RVR -Went into A-fib with RVR in the beginning of patient's hospitalization and she was started on amiodarone drip and anticoagulation -Echocardiogram had already been completed with stage I diastolic dysfunction, EF 70%, moderate large amount of left atrium with no significant valvular abnormalities -Patient transitioned to amiodarone due to and metoprolol and G-tube -07/31: Did increase her metoprolol to 25 mg twice daily as she was still elevated around 110-120 at rest, does get more tachycardic with ambulation however patient is very deconditioned and feel this is physiologic tachycardia on top of her A-fib with baseline elevated rate, working on baseline rate and ifheart rate increases with ambulation but returns to acceptable range at rest canlikely keep medication the same, continue to monitor #Acute exacerbation of chronic heart failure with preserved ejection fraction?resolved -proBNP 5405 - CTA with bilateral pleural effusions - Patient received diuresis during hospitalization - Echocardiogram with stage I diastolic dysfunction and LVEF of 70 -Daily weights, I's and O's -07/31: Weight fairly stable at present, appears euvolemic, is not presently on any diuretics, continue to monitor volume status and adjust accordingly #Hx CVA - Patient to be switched to full dose anticoagulation given new onset A-fib -07/31: Patient on Eliquis, tolerating this well #Type 2 diabetes mellitus -Glucose checks and sliding scale insulin -Patient presently on D5, with lowest dose of sliding scale possible, patient has had some episodes of hypoglycemia, nutrition consult -07/31: Patient tolerating tube feeds, [id number] glucose 228, patient is on low-dose sliding scale but is easily become hypoglycemic, continues to have elevated sugars are up trends can increase sliding scale factor #Depression/anxiety -Continue home medications -May need to consider alternate psych regimen depending what will be able to be given down G-tube -07/31: Continue home Abilify and bupropion, patient has not been off of the Effexor as it has been on hold due to being n.p.o. # Chronic hypoxic respiratory failure secondary to COPD -Patient presently on 4 L nasal cannula -Patient on ipratropium nebs and albuterol held due to patient's tachycardia date saturating 94% on 4 L, patient feels breathing is at baseline, continue supportive care with ipratropium nebs #Hypertension - On beta-nancie and losartan -07/31: Most recent pressure 120/80, did increase metoprolol for heart rate, continue present management # Debility -Will need SNF prior to discharge -Case management consult for discharge planning, SNF referrals have been made -07/31: Discharge planning ongoing # BENITO on CKD?BENITO resolved - Patient's baseline creatinine seems to be around 1.8, presentation was 2.04 however peaked at 2.59 on 07/27/2025 -Renal ultrasound obtained which showed bilateral generalized atrophy - This a.m. is 1.67 -07/31: Continues to improve, creatinine 1.44 #DVT ppx: On full dose anticoagulation Gena Porter MD Charges/Coding Visit Charges Inpatient E&M: 88617 Subs Hosp L2 07/31/25 0791 <Electronically signed by Gena Porter MD> Cosigner Signature (if applicable): CC: ~ Signed [facility] Work Phone: Progress note Author Antoni Argueta [facility] Note Date/Time August 01, 2025 5 :51pm [facility] Medical Records Department [address] [place] [id number] Progress Note - Hospitalist 08/01/25 1232 MR#: [id number] Acct: [id number] Name: WING LIN Rep #:[id number] : 1945 80 From: Antoni luciano DO PCP: LILI STOREY Status:ADM IN Location: [place] [address] Reason for Visit Chief Complaint: Worsening shortness of breath Subjective Subjective Saw patient at bedside this morning, daughter present. Patient was mildly fatigued appearing but otherwise sitting back comfortably in bedside chair, conversing normally, in no acute distress. Her main concern today was about being able to eat and I noted to her that we need to await further speech therapy recommendations prior to trialing any diet for her. She was understanding of this. No other acute concerns this morning. Objective Data Objective Data Vital Signs: Vital Signs Temp Pulse Resp BP Pulse Ox O2 Del Method O2 Flow Rate 98.3 F 72 20 H 141/74 H 97 Nasal Cannula 4 08/01/25 10:00 08/01/25 10:56 08/01/25 10:56 08/01/25 10:03 08/01/25 10:45 08/01/25 10:56 08/01/25 10:56 FiO2 30 07/29/25 11:51 Oxygen Flow Rate (L/min) 4 Oxygen Delivery Method Nasal Cannula Weight: 83.6 kg Body Mass Index (BMI) 28.8 Intake & Output: Intake and Output for Last 24 Hours 07/30/25 07/31/25 08/01/25 23:59 23:59 23:59 Intake Total 2032.75 / 2032.75 1698.25 / 1698.25 100 / 100 Output Total 1655 / 1655 750 / 750 1025 / 1025 Balance 377.75 / 377.75 948.25 / 948.25 -925 / -925 Lab / Micro Data 08/01/25 04:59 08/01/25 04:59 Labs: Laboratory Results - last 24 hr 07/31/25 18:02: POC Glucose 192 H 07/31/25 23:37: POC Glucose 212 H 08/01/25 04:59: WBC 10.1, RBC 2.79 L, Hgb 8.5 L, Hct 27.5 L, MCV 98.6, MCH 30.5,MCHC 30.9 L, RDW Std Deviation 51.2 H, RDW Coeff of Tessa 14.5, Plt Count 273, MPV9.8, Sodium 140, Potassium 4.1, Chloride 109 H, Carbon Dioxide 21.6, Anion Gap 9, BUN 27 H, Creatinine 1.42 H, Estim Creat Clear Calc 35.84 L, Est GFR (MDRD) Non-Af 38 L, BUN/Creatinine Ratio 19.2, Glucose 262 H, Calcium 8.3 08/01/25 06:05: POC Glucose 256 H 08/01/25 11:56: POC Glucose 286 H Micro: Microbiology 07/22/25 12:32 Blood Culture (Wb) - Anticubital Left Blood Culture - Final No growth in 5 days. 07/22/25 12:32 Blood Culture (Wb) - Anticubital Right Blood Culture - Final No growth in 5 days. 07/22/25 22:05 Sputum, Induced/Lukens Gram Stain - Final 07/22/25 22:05 Sputum, Induced/Lukens Respiratory Culture - Final Mixed normal respiratory michelle. No Streptococcus pneumoniae, beta-hemolytic Streptococcus or Staphylococcus aureus isolated. 07/22/25 13:09 Urine, Catheterized Urine Culture - Final Culture exhibits no growth. 07/22/25 20:49 Mucosa - Nasopharyngeal Respiratory Panel (PCR) - Final 07/22/25 12:30 Mucosa - Nose SARS-CoV-2, Influenza & RSV (PCR) - Final Physical Exam Const alert, oriented x3, no apparent distress and average body habitus Constitutional Narrative: Pleasant elderly female, mildly fatigued appearing, otherwise sitting back comfortably in bed, conversing normally, in no acute distress. General Appearance: cooperative and comfortable HEENT normocephalic, head/scalp atraumatic, hearing grossly normal bilaterally, nasal mucous membranes and turbinates normal and moist oral mucous membranes Eyes PERRL, EOMs intact bilaterally and conjunctivae normal Neck full ROM Chest inspection of chest normal Resp normal respiratory effort, normal air movement, no use of accessory muscles and clear to auscultation bilaterally Cardio regular rate, regular rhythm, no murmurs and peripheral pulses 2+ throughout GI normal to inspection, nondistended, normoactive bowel sounds, soft to palpation,non-tender and non-distended GI Narrative: PEG tube in place, site appears clean and dry. Back/Spine normal ROM Extremity normal to inspection, full ROM and no pedal edema Skin no rashes or lesions noted Psych mental status grossly normal Assessment & Plan Assessment/Plan (1) Acute on chronic respiratory failure with hypoxia and hypercapnia: PLAN: Plan Patient is a 80-year-old female who presented to [facility] ED on 2025 with worsening shortness of breath. 1. 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 Integrated Pest Management Technician followed. On 4 L nasal cannula at baseline. Initial ABG with pH 7.18, pCO2 59, pO2 60 on 6 L nasal cannula. CTA chest with bilateral pleural effusions and opacities concerning for atelectasis versus pneumonia. Initially had improvement with BiPAP however was then noted to have increased respiratory distress and required intubation on the evening of admission. Significant esophageal secretions were noted during intubation. Patient was treated with IVantibiotics and scheduled DuoNebs with some improvement, was able to be extubated to nasal cannula on 07/27. Stable on home 4 L nasal cannula since 07/31. Continue home inhalers. 2. Dysphagia secondary to achalasia ? GI followed. Speech therapy following. Patient with concerns for dysphagia on admit and CT scan showed esophageal contents on presentation. Patient had significant esophageal secretions with intubation on admit as above. 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 Unfortunately despite dilation with EGD, patientwas still unable to manage secretions and maintain p.o. intake safely so PEG tube was placed on 07/29. Tube feeds increased to goal by 07/31 and patient tolerating without issue. Patient with some improvement with speech therapy, okay for honey thick liquids by chad with staff only on 08/01. Medically stable for discharge, will need further speech therapy at rehab facility. 3. New onset A-fib with RVR ? Patient went into A-fib with RVR early on in the hospitalization requiring amiodarone drip and anticoagulation. Echo showed stage I diastolic dysfunction,EF 70%, monitor enlargement of left atrium, no significant valvular abnormalities. Patient was transition to amiodarone and metoprolol through the G-tube. Heart rate slightly elevated to the 110s to low 120s on 07/31 so metoprolol increased to 25 mg twice daily, then further uptitrated to 50 mg twice daily on 08/01. Continue to monitor telemetry and titrate medications as needed. Continue Eliquis that was started during this hospitalization. 4. Acute on chronic HFpEF, resolved ? CTA chest on admit with bilateral pleural effusions and echo with stage I diastolic dysfunction as above. Diuresed well during hospitalization. Euvolemic as of 07/31, no need for further diuretics at this time. Continue to monitor. 5. Acute on chronic debility with recent mechanical fall ? PT/OT/case management following. Patient lives at home alone, daughter lives close by. Patient with significant deconditioning during this prolonged hospitalization. Will need SNF placement on discharge. Medically ready for discharge on 08/01, awaiting placement. 6. BENITO on CKD3b, resolved ? Baseline creatinine appears to be around 1.4-1.6. Creatinine peaked at 2.59 during hospitalization, improved back to baseline by 07/31. Chronic medical conditions: ? Type 2 diabetes mellitus: Has had issues with intermittent hypoglycemia duringhospitalization but blood sugars improved with tube feeds uptitrated to goal. Continue sliding scale insulin every 6 hours. Will plan to resume home glimepiride and pioglitazone on discharge. ? History of CVA, hypertension, hyperlipidemia: Continue losartan and metoprolol. On Eliquis as above. ? Anxiety/depression: Continue home venlafaxine and bupropion. ? Chronic anemia: Hemoglobin stable at baseline around 9 during hospitalization. DVT prophylaxis: Not indicated, on Eliquis CODE STATUS: Full code, verified Expected disposition: SNF, medically ready for discharge on 08/01, awaiting placement Total clinical time spent by myself addressing the patient's medical issues, reviewing all the data, and collaborating with patient's care team: 84 minutes. Charges/Coding Visit Charges Inpatient E&M: 93895 Subs Hosp L2 08/01/25 1751 <Electronically signed by Antoni Argueta DO> Cosigner Signature (if applicable): CC: ~ Signed [facility] Work Phone: Progress note Author Antoni [facility] Note Date/Time August 02, 2025 1 1:54am [facility] Medical Records Department [address] [facility] [place] [address] Progress Note - Hospitalist 08/02/25 1152 MR#: [id number] Acct: [id number] Name: WING LIN Rep #:[id number] : 1945 80 From: Antoni luciano DO PCP: LILI STOREY Status:ADM IN Location: [place] [address] Reason for Visit Chief Complaint: Worsening shortness of breath Subjective Subjective Saw patient at bedside this morning. Patient was sitting back comfortably in bed, conversing normally, in no acute distress. Patient with no new concerns today. Objective Data Objective Data Vital Signs: Vital Signs Temp Pulse Resp BP Pulse Ox O2 Del Method O2 Flow Rate 97.8 F 119 H 16 146/89 H 96 Nasal Cannula 3 08/02/25 08:57 08/02/25 09:04 08/02/25 08:57 08/02/25 09:04 08/02/25 08:58 08/02/25 08:58 08/02/25 08:58 FiO2 30 07/29/25 11:51 Oxygen Flow Rate (L/min) 3 Oxygen Delivery Method Nasal Cannula Weight: 84.2 kg Body Mass Index (BMI) 29.0 Intake & Output: Intake and Output for Last 24 Hours 07/31/25 08/01/25 08/02/25 23:59 23:59 23:59 Intake Total 1698.25 / 1698.25 5 / 2034 1194.17 / 1194.17 Output Total 750 / 750 1900 / 1900 700 / 700 Balance 948.25 / 948.25 135 / 135 494.17 / 494.17 Lab / Micro Data 08/02/25 04:59 08/02/25 04:59 Labs: Laboratory Results - last 24 hr 08/01/25 11:56: POC Glucose 286 H 08/01/25 15:57: POC Glucose 166 H 08/01/25 18:08: POC Glucose 244 H 08/01/25 23:19: POC Glucose 139 H 08/02/25 04:59: WBC 9.1, RBC 2.91 L, Hgb 8.9 L, Hct 29.0 L, MCV 99.7 H, MCH 30.6, MCHC 30.7 L, RDW Std Deviation 51.9 H, RDW Coeff of Tessa 14.6, Plt Count 251, MPV 10.1, Sodium 139, Potassium 4.2, Chloride 108, Carbon Dioxide 21.9, Anion Gap 10, BUN 26 H, Creatinine 1.40 H, Estim Creat Clear Calc 36.34 L, Est GFR (MDRD) Non-Af 38 L, BUN/Creatinine Ratio 18.5, Glucose 278 H, Calcium 8.4 08/02/25 05:35: POC Glucose 247 H Micro: Microbiology 07/22/25 12:32 Blood Culture (Wb) - Anticubital Left Blood Culture - Final No growth in 5 days. 07/22/25 12:32 Blood Culture (Wb) - Anticubital Right Blood Culture - Final No growth in 5 days. 07/22/25 22:05 Sputum, Induced/Lukens Gram Stain - Final 07/22/25 22:05 Sputum, Induced/Lukens Respiratory Culture - Final Mixed normal respiratory michelle. No Streptococcus pneumoniae, beta-hemolytic Streptococcus or Staphylococcus aureus isolated. 07/22/25 13:09 Urine, Catheterized Urine Culture - Final Culture exhibits no growth. 07/22/25 20:49 Mucosa - Nasopharyngeal Respiratory Panel (PCR) - Final 07/22/25 12:30 Mucosa - Nose SARS-CoV-2, Influenza & RSV (PCR) - Final Physical Exam Const alert, oriented x3, no apparent distress and average body habitus Constitutional Narrative: Pleasant elderly female, mildly fatigued appearing, otherwise sitting back comfortably in bed, conversing normally, in no acute distress. Stable. General Appearance: cooperative and comfortable HEENT normocephalic, head/scalp atraumatic, hearing grossly normal bilaterally, nasal mucous membranes and turbinates normal and moist oral mucous membranes Eyes PERRL, EOMs intact bilaterally and conjunctivae normal Neck full ROM Chest inspection of chest normal Resp normal respiratory effort, normal air movement, no use of accessory muscles and clear to auscultation bilaterally Cardio regular rate, regular rhythm, no murmurs and peripheral pulses 2+ throughout GI normal to inspection, nondistended, normoactive bowel sounds, soft to palpation,non-tender and non-distended GI Narrative: PEG tube in place, site appears clean and dry. Back/Spine normal ROM Extremity normal to inspection, full ROM and no pedal edema Skin no rashes or lesions noted Psych mental status grossly normal Assessment & Plan Assessment/Plan (1) Acute on chronic respiratory failure with hypoxia and hypercapnia: PLAN: Plan Patient is a 80-year-old female who presented to [facility] ED on 2025 with worsening shortness of breath. 1. 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 Integrated Pest Management Technician followed. On 4 L nasal cannula at baseline. Initial ABG with pH 7.18, pCO2 59, pO2 60 on 6 L nasal cannula. CTA chest with bilateral pleural effusions and opacities concerning for atelectasis versus pneumonia. Initially had improvement with BiPAP however was then noted to have increased respiratory distress and required intubation on the evening of admission. Significant esophageal secretions were noted during intubation. Patient was treated with IVantibiotics and scheduled DuoNebs with some improvement, was able to be extubated to nasal cannula on 07/27. Stable on home 4 L nasal cannula since 07/31. Continue home inhalers. 2. Dysphagia secondary to achalasia ? GI followed. Speech therapy following. Patient with concerns for dysphagia on admit and CT scan showed esophageal contents on presentation. Patient had significant esophageal secretions with intubation on admit as above. 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 Unfortunately despite dilation with EGD, patientwas still unable to manage secretions and maintain p.o. intake safely so PEG tube was placed on 07/29. Tube feeds increased to goal by 07/31 and patient tolerating without issue. Patient with some improvement with speech therapy, okay for honey thick liquids by chad with staff only on 08/01. Medically stable for discharge on 08/01, will need further speech therapy at rehab facility. 3. New onset A-fib with RVR ? Patient went into A-fib with RVR early on in the hospitalization requiring amiodarone drip and anticoagulation. Echo showed stage I diastolic dysfunction,EF 70%, monitor enlargement of left atrium, no significant valvular abnormalities. Patient was transition to amiodarone and metoprolol through the G-tube. Heart rate slightly elevated to the 110s to low 120s on 07/31 so metoprolol increased to 25 mg twice daily, then further uptitrated to 50 mg twice daily on 08/01. Continue to monitor telemetry and titrate medications as needed. Continue Eliquis that was started during this hospitalization. 4. Acute on chronic HFpEF, resolved ? CTA chest on admit with bilateral pleural effusions and echo with stage I diastolic dysfunction as above. Diuresed well during hospitalization. Euvolemic as of 07/31, no need for further diuretics at this time. Continue to monitor. 5. Acute on chronic debility with recent mechanical fall ? PT/OT/case management following. Patient lives at home alone, daughter lives close by. Patient with significant deconditioning during this prolonged hospitalization. Will need SNF placement on discharge. Medically ready for discharge on 08/01, awaiting placement. 6. BENITO on CKD3b, resolved ? Baseline creatinine appears to be around 1.4-1.6. Creatinine peaked at 2.59 during hospitalization, improved back to baseline by 07/31. Chronic medical conditions: ? Type 2 diabetes mellitus: Has had issues with intermittent hypoglycemia duringhospitalization but blood sugars improved with tube feeds uptitrated to goal. Continue sliding scale insulin every 6 hours. Will plan to resume home glimepiride and pioglitazone on discharge. ? History of CVA, hypertension, hyperlipidemia: Continue losartan and metoprolol. On Eliquis as above. ? Anxiety/depression: Continue home venlafaxine and bupropion. ? Chronic anemia: Hemoglobin stable at baseline around 9 during hospitalization. DVT prophylaxis: Not indicated, on Eliquis CODE STATUS: Full code, verified Expected disposition: SNF, medically ready for discharge on 08/01, awaiting placement Total clinical time spent by myself addressing the patient's medical issues, reviewing all the data, and collaborating with patient's care team: 37 minutes. Charges/Coding Visit Charges Inpatient E&M: 50545 Subs Hosp L2 08/02/25 1155 <Electronically signed by Antoni Argueta DO> Cosigner Signature (if applicable): CC: ~ Signed [facility] Work Phone: Progress note Author Antoni [facility] Note Date/Time August 05, 2025 3 :48pm [facility] Medical Records Department [address] [place] [id number] Progress Note - Hospitalist 08/03/25 1409 MR#: [id number] Acct: [id number] Name: WING LIN Rep #:[id number] : 1945 80 From: Antoni luciano DO PCP: LILI STOREY Status:ADM IN Location: [place] [address] Reason for Visit Chief Complaint: Worsening shortness of breath Subjective Subjective Saw patient at bedside this morning. Patient appeared similar today to previousdays, was sitting back comfortably in bedside chair and in no acute distress. No new concerns this morning. Objective Data Objective Data Vital Signs: Vital Signs Temp Pulse Resp BP Pulse Ox O2 Del Method O2 Flow Rate 97.3 F L 104 H 18 141/101 H 96 Nasal Cannula 3 08/03/25 09:10 08/03/25 13:36 08/03/25 13:36 08/03/25 09:10 08/03/25 09:10 08/03/25 09:10 08/03/25 09:10 FiO2 30 07/29/25 11:51 Oxygen Flow Rate (L/min) 3 Oxygen Delivery Method Nasal Cannula Weight: 83.2 kg Body Mass Index (BMI) 28.7 Intake & Output: Intake and Output for Last 24 Hours 08/01/25 08/02/25 08/03/25 23:59 23:59 23:59 Intake Total 2034 2417.50 / 2417.50 646.67 / 646.67 Output Total 1900 / 1900 1600 / 1600 Balance 135 / 135 817.50 / 817.50 646.67 / 646.67 Lab / Micro Data 08/02/25 04:59 08/02/25 04:59 Labs: Laboratory Results - last 24 hr 08/02/25 17:07: POC Glucose 153 H 08/03/25 00:12: POC Glucose 154 H 08/03/25 11:13: POC Glucose 221 H Micro: Microbiology 07/22/25 12:32 Blood Culture (Wb) - Anticubital Left Blood Culture - Final No growth in 5 days. 07/22/25 12:32 Blood Culture (Wb) - Anticubital Right Blood Culture - Final No growth in 5 days. 07/22/25 22:05 Sputum, Induced/Lukens Gram Stain - Final 07/22/25 22:05 Sputum, Induced/Lukens Respiratory Culture - Final Mixed normal respiratory michelle. No Streptococcus pneumoniae, beta-hemolytic Streptococcus or Staphylococcus aureus isolated. 07/22/25 13:09 Urine, Catheterized Urine Culture - Final Culture exhibits no growth. 07/22/25 20:49 Mucosa - Nasopharyngeal Respiratory Panel (PCR) - Final 07/22/25 12:30 Mucosa - Nose SARS-CoV-2, Influenza & RSV (PCR) - Final Physical Exam Const alert, oriented x3, no apparent distress and average body habitus Constitutional Narrative: Pleasant elderly female, mildly fatigued appearing, otherwise sitting back comfortably in bed, conversing normally, in no acute distress. Stable. General Appearance: cooperative and comfortable HEENT normocephalic, head/scalp atraumatic, hearing grossly normal bilaterally, nasal mucous membranes and turbinates normal and moist oral mucous membranes Eyes PERRL, EOMs intact bilaterally and conjunctivae normal Neck full ROM Chest inspection of chest normal Resp normal respiratory effort, normal air movement, no use of accessory muscles and clear to auscultation bilaterally Cardio regular rate, regular rhythm, no murmurs and peripheral pulses 2+ throughout GI normal to inspection, nondistended, normoactive bowel sounds, soft to palpation,non-tender and non-distended GI Narrative: PEG tube in place, site appears clean and dry. Back/Spine normal ROM Extremity normal to inspection, full ROM and no pedal edema Skin no rashes or lesions noted Psych mental status grossly normal Assessment & Plan Assessment/Plan (1) Acute on chronic respiratory failure with hypoxia and hypercapnia: PLAN: Plan Patient is a 80-year-old female who presented to [facility] ED on 2025 with worsening shortness of breath. 1. 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 Integrated Pest Management Technician followed. On 4 L nasal cannula at baseline. Initial ABG with pH 7.18, pCO2 59, pO2 60 on 6 L nasal cannula. CTA chest with bilateral pleural effusions and opacities concerning for atelectasis versus pneumonia. Initially had improvement with BiPAP however was then noted to have increased respiratory distress and required intubation on the evening of admission. Significant esophageal secretions were noted during intubation. Patient was treated with IVantibiotics and scheduled DuoNebs with some improvement, was able to be extubated to nasal cannula on 07/27. Stable on home 4 L nasal cannula since 07/31. Continue home inhalers. 2. Dysphagia secondary to achalasia ? GI followed. Speech therapy following. Patient with concerns for dysphagia on admit and CT scan showed esophageal contents on presentation. Patient had significant esophageal secretions with intubation on admit as above. 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 Unfortunately despite dilation with EGD, patientwas still unable to manage secretions and maintain p.o. intake safely so PEG tube was placed on 07/29. Tube feeds increased to goal by 07/31 and patient tolerating without issue. Patient with some improvement with speech therapy, okay for honey thick liquids by chad with staff only on 08/01. Medically stable for discharge on 08/01, will need further speech therapy at rehab facility. 3. New onset A-fib with RVR ? Patient went into A-fib with RVR early on in the hospitalization requiring amiodarone drip and anticoagulation. Echo showed stage I diastolic dysfunction,EF 70%, monitor enlargement of left atrium, no significant valvular abnormalities. Patient was transition to amiodarone and metoprolol through the G-tube. Heart rate slightly elevated to the 110s to low 120s on 07/31 so metoprolol increased to 25 mg twice daily, then further uptitrated to 50 mg twice daily on 08/01. Continue to monitor telemetry and titrate medications as needed. Continue Eliquis that was started during this hospitalization. 4. Acute on chronic HFpEF, resolved ? CTA chest on admit with bilateral pleural effusions and echo with stage I diastolic dysfunction as above. Diuresed well during hospitalization. Euvolemic as of 07/31, no need for further diuretics at this time. Continue to monitor. 5. Acute on chronic debility with recent mechanical fall ? PT/OT/case management following. Patient lives at home alone, daughter lives close by. Patient with significant deconditioning during this prolonged hospitalization. Will need SNF placement on discharge. Medically ready for discharge on 08/01, awaiting placement. 6. BENITO on CKD3b, resolved ? Baseline creatinine appears to be around 1.4-1.6. Creatinine peaked at 2.59 during hospitalization, improved back to baseline by 07/31. Chronic medical conditions: ? Type 2 diabetes mellitus: Has had issues with intermittent hypoglycemia duringhospitalization but blood sugars improved with tube feeds uptitrated to goal. Continue sliding scale insulin every 6 hours. Will plan to resume home glimepiride and pioglitazone on discharge. ? History of CVA, hypertension, hyperlipidemia: Continue losartan and metoprolol. On Eliquis as above. ? Anxiety/depression: Continue home venlafaxine and bupropion. ? Chronic anemia: Hemoglobin stable at baseline around 9 during hospitalization. DVT prophylaxis: Not indicated, on Eliquis CODE STATUS: Full code, verified Expected disposition: SNF, medically ready for discharge on 08/01, awaiting placement Total clinical time spent by myself addressing the patient's medical issues, reviewing all the data, and collaborating with patient's care team: 36 minutes. Charges/Coding Visit Charges Inpatient E&M: 75660 Subs Hosp L2 08/03/25 2012 <Electronically signed by Antoni Argueta DO> Cosigner Signature (if applicable): CC: ~ Signed [facility] Work Phone: Progress note Author Karlee Rodriguez [facility] Note Date/Time August 03, 2025 4 :13pm [facility] Medical Records Department [address] [place] [address] Progress Note - GI 08/03/25 1148 MR#: [id number] Acct: [id number] Name: WING LIN Rep #:[id number] : 1945 80 From: Karlee valle [employer]OP [employer]WER-C PCP: LILI STOREY Status:ADM IN Location: [place] [address] Subjective Subjective - TF at goal of 50ml/hr - denies any pain - c/o mild tenderness/discomfort at PEG site - VSS Objective Data Objective Data Vital Signs: Vital Signs Temp Pulse Resp BP Pulse Ox O2 Del Method O2 Flow Rate 97.3 F L 149 H 16 141/101 H 96 Nasal Cannula 3 08/03/25 09:10 08/03/25 09:57 08/03/25 09:10 08/03/25 09:10 08/03/25 09:10 08/03/25 09:10 08/03/25 09:10 FiO2 30 07/29/25 11:51 Oxygen Flow Rate (L/min) 3 Oxygen Delivery Method Nasal Cannula Weight: 183 lb 6.793 oz Body Mass Index (BMI) 28.7 Intake & Output: Intake and Output for Last 24 Hours 08/01/25 08/02/25 08/03/25 23:59 23:59 23:59 Intake Total 2034 / 2035 2417.50 / 2417.50 646.67 / 646.67 Output Total 1900 / 1900 1600 / 1600 Balance 135 / 135 817.50 / 817.50 646.67 / 646.67 Lab / Micro Data Attestation: I reviewed the patient's lab results. 08/02/25 04:59 08/02/25 04:59 Labs: Laboratory Results - last 24 hr 08/02/25 11:45: POC Glucose 308 H 08/02/25 17:07: POC Glucose 153 H 08/03/25 00:12: POC Glucose 154 H 08/03/25 11:13: POC Glucose 221 H Micro: Microbiology 07/22/25 12:32 Blood Culture (Wb) - Anticubital Left Blood Culture - Final No growth in 5 days. 07/22/25 12:32 Blood Culture (Wb) - Anticubital Right Blood Culture - Final No growth in 5 days. 07/22/25 22:05 Sputum, Induced/Lukens Gram Stain - Final 07/22/25 22:05 Sputum, Induced/Lukens Respiratory Culture - Final Mixed normal respiratory michelle. No Streptococcus pneumoniae, beta-hemolytic Streptococcus or Staphylococcus aureus isolated. 07/22/25 13:09 Urine, Catheterized Urine Culture - Final Culture exhibits no growth. 07/22/25 20:49 Mucosa - Nasopharyngeal Respiratory Panel (PCR) - Final 07/22/25 12:30 Mucosa - Nose SARS-CoV-2, Influenza & RSV (PCR) - Final Physical Exam Const alert and no apparent distress Constitutional Narrative: Pleasant General Appearance: cooperative and comfortable HEENT normocephalic Eyes PERRL Resp normal respiratory effort Resp Narrative: 3L NC, CTA Effort and Inspection: able to speak in complete sentences GI normal to inspection, nondistended, normoactive bowel sounds, soft to palpation and non-tender GI Narrative: Jevity 1.2 infusing via PEG at goal of 50ml/hr, PEG site C/D/I, no erythema or drainage, no pain with palpation, BS+ x4 Rectal Exam: deferred Extremity Extremity Narrative: RUE PICC with occlusive dressing C/D/I Skin General Skin Exam: ecchymosis Psych Appearance: grossly normal Attitude: calm Activity / Motor Behavior: appropriate eye contact Speech: normal speech Memory / Cognition: memory grossly intact Assessment & Plan Assessment/Plan (1) Achalasia: PLAN: Plan 80-year-old female with a history of dysphagia secondary to achalasia, recently underwent EGD revealing achalasia with esophageal and pyloric stenosis, refractory to endoscopic dilation, requiring enteral nutrition via PEG. PEG tube placement performed 07/29/2025, mild postprocedural discomfort, no evidenceof infection or complication. She reports mild discomfort at the PEG insertion site but denies abdominal pain, nausea, or vomiting. She is tolerating Jevity 1.5 at goal rate of 50 mL/hr. Chronic stable anemia (hemoglobin 8.9). Recommend continued routine follow-up for achalasia; patient is not a candidate for further definitive therapy due to poor oral intake and failed dilation. I have reviewed with Dr. Nguyen who advised possible outpatient esophageal manometry with consideration for Botox in the future. Note: Abdulaziz speech recognition critical care nurse specialist software was used to create portions of this document. Sound-alike and misspelled words, as well as other critical care nurse specialist errors may be contained in the documentation. 08/03/25 1613 <Electronically signed by Karlee PEARSON> Cosigner Signature (if applicable): CC: ~ Signed [facility] Work Phone: progress note Author Doris Jeffries [facility] Note Date/Time August 03, 2025 1 0:41pm [facility] Medical Records Department [address] [place] [address] Progress Note - Hospitalist 08/03/252239 MR#: [id number] Acct: [id number] Name: WING LIN Rep #:[id number] : 1945 80 From: Doris Lagos P-C PCP: LILI STOREY Status:ADM IN Location: [place] [address] Hospitalist Note Bupropion HCl changed from SR form to IR so that it may be crushed and given perG-tube. She was on SR 150mg PO BID, changed to IR 100mg GT TID, so that she continues to receive the same daily amount. 08/03/252240 <Electronically signed by Doris PEARSON> Cosigner Signature (if applicable): CC: ~ Signed [facility] Work Phone: Progress note Author Antoni Argueta [facility] Note Date/Time August 04, 2025 2 :10pm [facility] Medical Records Department [address] [place] [address] Progress Note - Hospitalist 08/04/25 1409 MR#: [id number] Acct: [id number] Name: WING LIN Rep #:[id number] : 1945 80 From: Antoni luciano DO PCP: LILI STOREY Status:ADM IN Location: [place] [address] Reason for Visit Chief Complaint: Worsening shortness of breath Subjective Subjective Saw patient at bedside this morning. Patient appeared similar today to previousdays, no new concerns this morning. Objective Data Objective Data Vital Signs: Vital Signs Temp Pulse Resp BP Pulse Ox O2 Del Method O2 Flow Rate 97.9 F 105 H 17 110/66 96 Nasal Cannula 3 08/04/25 08:54 08/04/25 09:02 08/04/25 08:54 08/04/25 08:54 08/04/25 08:54 08/04/25 09:19 08/04/25 11:30 FiO2 30 07/29/25 11:51 Oxygen Flow Rate (L/min) 3 Oxygen Delivery Method Nasal Cannula Weight: 83.3 kg Body Mass Index (BMI) 28.8 Intake & Output: Intake and Output for Last 24 Hours 08/02/25 08/03/25 08/04/25 23:59 23:59 23:59 Intake Total 2417.50 / 2417.50 1333.59 / 1333.59 634.00 / 634.00 Output Total 1600 / 1600 1100 / 1100 Balance 817.50 / 817.50 1333.59 / 1333.59 -466.00 / -466.00 Lab / Micro Data 08/04/25 04:56 08/04/25 04:56 Labs: Laboratory Results - last 24 hr 07/27/25 05:40: Diff Path Review Reviewed 08/03/25 06:43: POC Glucose 298 H 08/03/25 17:21: POC Glucose 289 H 08/04/25 00:30: POC Glucose 266 H 08/04/25 04:56: WBC 9.4, RBC 2.59 L, Hgb 7.9 L, Hct 25.5 L, MCV 98.5, MCH 30.5, MCHC 31.0 L, RDW Std Deviation 49.9 H, RDW Coeff of Tessa 14.3, Plt Count 227, MPV10.4, Sodium 138, Potassium 5.0, Chloride 103, Carbon Dioxide 26.2, Anion Gap 9,BUN 23 H, Creatinine 1.37 H, Estim Creat Clear Calc 36.94 L, Est GFR (MDRD) Non-Af 39 L, BUN/Creatinine Ratio 16.9, Glucose 248 H, Calcium 8.2 08/04/25 06:06: POC Glucose 279 H 08/04/25 11:54: POC Glucose 167 H Micro: Microbiology 07/22/25 12:32 Blood Culture (Wb) - Anticubital Left Blood Culture - Final No growth in 5 days. 07/22/25 12:32 Blood Culture (Wb) - Anticubital Right Blood Culture - Final No growth in 5 days. 07/22/25 22:05 Sputum, Induced/Lukens Gram Stain - Final 07/22/25 22:05 Sputum, Induced/Lukens Respiratory Culture - Final Mixed normal respiratory michelle. No Streptococcus pneumoniae, beta-hemolytic Streptococcus or Staphylococcus aureus isolated. 07/22/25 13:09 Urine, Catheterized Urine Culture - Final Culture exhibits no growth. 07/22/25 20:49 Mucosa - Nasopharyngeal Respiratory Panel (PCR) - Final 07/22/25 12:30 Mucosa - Nose SARS-CoV-2, Influenza & RSV (PCR) - Final Physical Exam Const alert, oriented x3, no apparent distress and average body habitus Constitutional Narrative: Pleasant elderly female, mildly fatigued appearing, otherwise sitting back comfortably in bed, conversing normally, in no acute distress. Stable. General Appearance: cooperative and comfortable HEENT normocephalic, head/scalp atraumatic, hearing grossly normal bilaterally, nasal mucous membranes and turbinates normal and moist oral mucous membranes Eyes PERRL, EOMs intact bilaterally and conjunctivae normal Neck full ROM Chest inspection of chest normal Resp normal respiratory effort, normal air movement, no use of accessory muscles and clear to auscultation bilaterally Cardio regular rate, regular rhythm, no murmurs and peripheral pulses 2+ throughout GI normal to inspection, nondistended, normoactive bowel sounds, soft to palpation,non-tender and non-distended GI Narrative: PEG tube in place, site appears clean and dry. Back/Spine normal ROM Extremity normal to inspection, full ROM and no pedal edema Skin no rashes or lesions noted Psych mental status grossly normal Assessment & Plan Assessment/Plan (1) Acute on chronic respiratory failure with hypoxia and hypercapnia: PLAN: Plan Patient is a 80-year-old female who presented to [facility] ED on 2025 with worsening shortness of breath. 1. 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 Integrated Pest Management Technician followed. On 4 L nasal cannula at baseline. Initial ABG with pH 7.18, pCO2 59, pO2 60 on 6 L nasal cannula. CTA chest with bilateral pleural effusions and opacities concerning for atelectasis versus pneumonia. Initially had improvement with BiPAP however was then noted to have increased respiratory distress and required intubation on the evening of admission. Significant esophageal secretions were noted during intubation. Patient was treated with IVantibiotics and scheduled DuoNebs with some improvement, was able to be extubated to nasal cannula on 07/27. Stable on home 4 L nasal cannula since 07/31. Continue home inhalers. 2. Dysphagia secondary to achalasia ? GI followed. Speech therapy following. Patient with concerns for dysphagia on admit and CT scan showed esophageal contents on presentation. Patient had significant esophageal secretions with intubation on admit as above. 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 Unfortunately despite dilation with EGD, patientwas still unable to manage secretions and maintain p.o. intake safely so PEG tube was placed on 07/29. Tube feeds increased to goal by 07/31 and patient tolerating without issue. Patient with some improvement with speech therapy, okay for honey thick liquids by chad with staff only on 08/01. Medically stable for discharge on 08/01, will need further speech therapy at rehab facility. 3. New onset A-fib with RVR ? Patient went into A-fib with RVR early on in the hospitalization requiring amiodarone drip and anticoagulation. Echo showed stage I diastolic dysfunction,EF 70%, monitor enlargement of left atrium, no significant valvular abnormalities. Patient was transition to amiodarone and metoprolol through the G-tube. Heart rate slightly elevated to the 110s to low 120s on 07/31 so metoprolol increased to 25 mg twice daily, then further uptitrated to 50 mg twice daily on 08/01. Continue to monitor telemetry and titrate medications as needed. Continue Eliquis that was started during this hospitalization. 4. Acute on chronic HFpEF, resolved ? CTA chest on admit with bilateral pleural effusions and echo with stage I diastolic dysfunction as above. Diuresed well during hospitalization. Euvolemic as of 07/31, no need for further diuretics at this time. Continue to monitor. 5. Acute on chronic debility with recent mechanical fall ? PT/OT/case management following. Patient lives at home alone, daughter lives close by. Patient with significant deconditioning during this prolonged hospitalization. Will need SNF placement on discharge. Medically ready for discharge on 08/01, awaiting placement. 6. BENITO on CKD3b, resolved ? Baseline creatinine appears to be around 1.4-1.6. Creatinine peaked at 2.59 during hospitalization, improved back to baseline by 07/31. Chronic medical conditions: ? Type 2 diabetes mellitus: Has had issues with intermittent hypoglycemia duringhospitalization but blood sugars improved with tube feeds uptitrated to goal. Continue sliding scale insulin every 6 hours. Will plan to resume home glimepiride and pioglitazone on discharge. ? History of CVA, hypertension, hyperlipidemia: Continue losartan and metoprolol. On Eliquis as above. ? Anxiety/depression: Continue home venlafaxine and bupropion. ? Chronic anemia: Hemoglobin stable at baseline around 9 during hospitalization. DVT prophylaxis: Not indicated, on Eliquis CODE STATUS: Full code, verified Expected disposition: SNF, medically ready for discharge on 08/01, awaiting placement Total clinical time spent by myself addressing the patient's medical issues, reviewing all the data, and collaborating with patient's care team: 36 minutes. Charges/Coding Visit Charges Inpatient E&M: 22224 Subs Hosp L2 08/04/25 1410 <Electronically signed by Antoni Argueta DO> Cosigner Signature (if applicable): CC: ~ Signed [facility] Work Phone: Reason for referral (narrative)No reason for referral information availableWCleveland Clinic [facility] Work Phone: Summary Purpose Family History No Family History Records Found Relationship Condition Age at Onset Recorded Date/T neil Unknown Family History?- Unknown December 28, 2016 6:57am Family History?Diabe alta, Heart Disease Unknown December 28, 2016 6:57am Relationship Condition Age at Onset Recorded Date/T neil Unknown Family History?- Unknown December 28, 2016 5:57am Family History?Diabe alta, Heart Disease Unknown December 28, 2016 5:57am Relationship Condition Age at Onset Recorded Date/T neil Not Specified Diabetes mellitus Unknown Cardiac disease Unknown Relationship Condition Age at Onset Recorded Date/T neil mother Diabetes mellitus Unknown Cardiac disease Unknown Hypertension Unknown father Diabetes mellitus Unknown Advance Directives No Advanced Directives Records Found Advance Directive Response Recorded Date/ Time Living Will Yes January 26, 2022 4:19pm Power of Refrigerator Room Clerk Yes January 26 4:19pm Advance Directive Response Recorded Date/ Time Living Will Yes January 26, 2022 7:14pm Power of Refrigerator Room Clerk Yes January 26 7:14pm Advance Directive Response Recorded Date/ Time Living Will Yes February 01, 2022 3:45pm Power of Refrigerator Room Clerk No February 01 3:45pm Name of Medical Power of Refrigerator Room Clerk Jony Curly lagos January 31, 2022 3:14pm Advance Directive Response Recorded Date/ Time Living Will Yes February 01, 2022 3:45pm Power of Refrigerator Room Clerk No February 01 3:45pm Advance Directive Response Recorded Date/ Time Living Will Yes February 01, 2022 2:45pm Power of Refrigerator Room Clerk No February 01 2:45pm Advance Directive Response Recorded Date/ Time Living Will Yes March 15, 2023 1 1:36am Power of Refrigerator Room Clerk No March 15, 2023 11:36am Advance Directive Response Recorded Date/ Time Name of Medical Power of Refrigerator Room Clerk michelle lewis July 28, 2023 7:17pm Living Will Yes July 28 7:17pm Power of Refrigerator Room Clerk Yes July 28, 2023 7:17pm Advance Directive Response Recorded Date/ Time Name of Medical Power of Refrigerator Room Clerk jony lin () July 28, 2023 10:45pm Living Will Yes July 28 10:45pm Power of Refrigerator Room Clerk Yes July 28, 2023 10:45pm Advance Directive Response Recorded Date/ Time Name of Medical Power of Refrigerator Room Clerk jony orvillenickyderek lagos () July 28, 2023 9:45pm Living Will Yes July 28 9:45pm Power of Refrigerator Room Clerk Yes July 28, 2023 9:45pm Advance Directive Response Recorded Date/ Time Do you have a Healthcare Power of Refrigerator Room Clerk? Yes 2025 6:33pm Name of Medical Power of Refrigerator Room Clerk cecile Alex 2025 6:33pm Chief Complaint and Reason for Visit Chief Complaint ANKLE FRACTURE Reason for Visit Ankle pain, left Closed left trimalleolar fracture Diabetes mellitus Chief Complaint ANKLE FRACTURE ANKLE FRACTURE ANKLE FRACTURE ANKLE FRACTURE ANKLE FRACTURE ANKLE FRACTURE ANKLE FRACTURE Reason for Visit Ankle pain, left Closed left trimalleolar fracture Hyperkalemia Trimalleolar fracture of ankle, closed Diabetes mellitus Hypertension Chief Complaint L ANKLE FRACTURE Reason for Visit Chronic kidney disea se, stage 3b Debility Depression Diabetes mellitus [id number] Gastroesophageal reflux disease Hyperlipidemia Insomnia Iron deficiency anemia Stroke Vitamin B12 deficiency Chronic obstructive pulmonary disease Acute kidney injury Ankle pain, left Hyperkalemia Trimalleolar fracture of ankle, closed Chief Complaint NICOTINE DEP Chief Complaint NICOTINE DEP E-ORDER Chief Complaint E-ORDER KNEE PAIN Chief Complaint KNEE PAIN Chief Complaint SEPSIS SECONDARY TO PNEUMONIA, COPD EXACERBATION Reason for Visit Acute kidney injury Community acquired pneumonia Diabetes mellitus Hypoxia Sepsis Acute exacerbation of chronic obstructive pulmonary disease Chief Complaint SEPSIS SECONDARY TO PNEUMONIA, COPD EXACERBATION SEPSIS SECONDARY TO PNEUMONIA, COPD EXACERBATION SEPSIS SECONDARY TO PNEUMONIA, COPD EXACERBATION Reason for Visit Acute kidney injury Community acquired pneumonia Diabetes mellitus Hypoxia Sepsis Acute exacerbation of chronic obstructive pulmonary disease Chief Complaint SEPSIS SECONDARY TO PNEUMONIA, COPD EXACERBATION SEPSIS SECONDARY TO PNEUMONIA, COPD EXACERBATION SEPSIS SECONDARY TO PNEUMONIA, COPD EXACERBATION SEPSIS SECONDARY TO PNEUMONIA, COPD EXACERBATION Reason for Visit Hypoxia Acute exacerbation of chronic obstructive pulmonary disease Acute kidney injury Community acquired pneumonia Sepsis Chief Complaint Admit Date CORRECTED ORDER ENTERED December 17, 2024 9:52am Chief Complaint Admit Date ACUTE RESPIRATORY FAILURE TO COPD/CHC EX ACERBATION 2025 5:16pm ACUTE RESPIRATORY FAILURE TO COPD/CHC EX ACERBATION 2025 7:36pm ACUTE RESPIRATORY FAILURE TO COPD/CHC EX ACERBATION July 23, 2025 6:52am ACUTE RESPIRATORY FAILURE TO COPD/CHC EX ACERBATION July 24, 2025 6:55am ACUTE RESPIRATORY FAILURE TO COPD/CHC EX ACERBATION July 25, 2025 7:28am ACUTE RESPIRATORY FAILURE TO COPD/CHC EX ACERBATION July 25, 2025 8:03am ACUTE RESPIRATORY FAILURE TO COPD/CHC EX ACERBATION July 25, 2025 5:24pm ACUTE RESPIRATORY FAILURE TO COPD/CHC EX ACERBATION July 26, 2025 7:49am ACUTE RESPIRATORY FAILURE TO COPD/CHC EX ACERBATION July 26, 2025 7:58am ACUTE RESPIRATORY FAILURE TO COPD/CHC EX ACERBATION July 27, 2025 7:22am ACUTE RESPIRATORY FAILURE TO COPD/CHC EX ACERBATION October 15th, 2025 7:27am ACUTE RESPIRATORY FAILURE TO COPD/CHC EX ACERBATION July 28, 2025 7:14am ACUTE RESPIRATORY FAILURE TO COPD/CHC EX ACERBATION July 28, 2025 7:30am ACUTE RESPIRATORY FAILURE TO COPD/CHC EX ACERBATION July 28, 2025 6:12pm ACUTE RESPIRATORY FAILURE TO COPD/CHC EX ACERBATION July 29, 2025 8:17am ACUTE RESPIRATORY FAILURE TO COPD/CHC EX ACERBATION July 29, 2025 8:30am ACUTE RESPIRATORY FAILURE TO COPD/CHC EX ACERBATION July 30, 2025 10:02am ACUTE RESPIRATORY FAILURE TO COPD/CHC EX ACERBATION July 31, 2025 3:20pm ACUTE RESPIRATORY FAILURE TO COPD/CHC EX ACERBATION August 01, 2025 12:32pm ACUTE RESPIRATORY FAILURE TO COPD/CHC EX ACERBATION August 02, 2025 11:52am ACUTE RESPIRATORY FAILURE TO COPD/CHC EX ACERBATION August 03, 2025 11:48am ACUTE RESPIRATORY FAILURE TO COPD/CHC EX ACERBATION August 03, 2025 2:09pm ACUTE RESPIRATORY FAILURE TO COPD/CHC EX ACERBATION August 04, 2025 2:09pm ACUTE RESPIRATORY FAILURE TO COPD/CHC EX ACERBATION August 05, 2025 10:08am Reason for Visit Admit Date Achalasia 2025 5 :16pm Dysphagia 2025 5 :16pm Esophageal dysmotility July 22 5:16pm Gastroesophageal reflux disease 2025 5:16pm Paroxysmal atrial fibrillation with RVR 2025 5:16pm Stroke 2025 5 :16pm Acute on chronic respiratory failure with hypoxia and hypercapnia 2025 5:16pm Additional Source Comments INFORMATION SOURCE (unrecogn ized section and content) DATE CREATED AUTHOR 04/08/2018 [facility] DATE CREATED AUTHOR AUTHOR'S ORGANIZ ATION 03/24/2023 [facility] ([place]) DATE CREATED AUTHOR AUTHOR'S ORGANIZ ATION 08/18/2025 [facility] DATE CREATED AUTHOR AUTHOR'S ORGANIZ ATION 08/22/2025 [facility] Goals (unrecognized section and content) Goals may be documented in a n alternate sectionGoals may be documented in an alternate sectionGoals may be documented in an alternate sectionGoals may be documented in an alternate sectionGoals may be documented in an alternate sectionGoals may be documented in an alternate sectionGoals may be documented in an alternate sectionGoals may be documented in an alternate sectionGoals may be documented in an alternate sectionGoals may be documented in an alternate sectionGoals may be documented in an alternate section No data available for this sectionGoals may be documented in an alternate sectionGoals may be documented in an alternate section No data available for this section No data available for this section No data available for this section Care Teams (unrecognized sec tion and content) Team Status: Active Member Role Status Dates Dr. Danilo Oneill DO Family Provider Active Dr. Danilo Oneill DO Primary Care Provider Active Team Status: Inactive Member Role Status Dates Dr. Danilo Oneill DO Primary Care Provider Active Dr. Jane Jay , DO Attending Provider, Referring P rovider Active Team Status: Inactive Member Role Status Dates Dr. Danilo Oneill DO Primary Care Provider Active Dr. Jane Jay , DO Attending Provider Active Team Status: Inactive Member Role Status Dates Dr. Danilo Oneill DO Primary Care Provider, Attendi ng Provider Active Team Status: Inactive Member Role Status Dates Dr. Danilo Oneill DO Primary Care Provider Active Dr. Marilou Brennan , DO Emergency Provider Active Team Status: Inactive Member Role Status Dates Dr. Danilo Oneill DO Primary Care Provider Active Dr. Marilou Brennan , DO Attending Provider, Emergency P rovider Active Team Status: Active Member Role Status Dates Dr. Danilo Oneill DO Primary Care Provider Active Dr. Tacho Moffett MD Emergency Provider Active Dr. Kavin Mcclain MD Admit Provider, Attending Pro vider Active Team Status: Active Member Role Status Dates Dr. Danilo Oneill DO Primary Care Provider Active Dr. Tacho Moffett MD Emergency Provider Active Dr. Kavin Mcclain MD Admit Provider, Attending Provider, Other Provider Active Dr. Antoni Argueta , DO Other Provider Active Team Status: Active Member Role Status Dates Dr. Danilo Oneill DO Primary Care Provider Active Dr. Tacho Moffett MD Emergency Provider Active Dr. Kavin Mcclain MD Admit Provider, Other Provide r Active Dr. Antoni Argueta , DO Attending Provider, Other Provider Active Team Status: Inactive Member Role Status Dates Dr. Danilo Oneill DO Primary Care Provider Active Dr. Tacho Moffett MD Emergency Provider Active Dr. Kavin Mcclain MD Admit Provider, Other Provide r Active Dr. Antoni Argueta DO Attending Provider Active Team Status: Active Member Role Status Dates Dr. Danilo Oneill DO Primary Care Provider Active Team Status: Inactive Member Role Status Dates Dr. Danilo Oneill DO Primary Care Provider Active Start: December 17, 2024 End: December 17, 2024 Dr. Jane Jay DO Attending Provider Active Start: December 17, 2024 End: December 17, 2024 Dr. Jane Jay DO Referring Provider Active Start: December 17, 2024 End: December 17, 2024 Team Status: Active Member Role Status Dates Dr. Danilo Oneill DO Primary Care Provider Active Start: December 24, 2024 Dr. Jane Jay DO Attending Provider Active Start: December 24, 2024 Dr. Jane Jay DO Referring Provider Active Start: December 24, 2024 Team Status: Inactive Member Role Status Dates Dr. Danilo Oneill DO Primary Care Provider Active Start: December 24, 2024 End: December 24, 2024 Dr. Jane Jay DO Attending Provider Active Start: December 24, 2024 End: December 24, 2024 Dr. Jane Jay DO Referring Provider Active Start: December 24, 2024 End: December 24, 2024 Team Status: Active Member Role/Relationship Status Dates LILI STOREY Primary care physician Active Team Status: Inactive Member Role/Relationship Status Dates Dr. Dulce Maria Raymond MD Emergency Departmen t Physician Active Start: 2025 End: August 05, 2025 LILI STOREY Primary care physician Active Start: 2025 End: August 05, 2025 Dr. Antoni Argueta DO Admitting physician Active Start: 2025 End: August 05, 2025 Dr. Antoni Argueta DO Attending physician Active Start: 2025 End: August 05, 2025 Dr. Antoni Argueta DO Nurse Practitioner Active Start: 2025 End: August 05, 2025 Dr. Bulmaro Gandara MD Nurse Practitioner Active Start: 2025 End: August 05, 2025 Dr. Kamron Nguyen , Nurse Practitioner Active Start: 2025 End: August 05, 2025 Doris Jeffries NP-C Nurse Practitioner Active S tart: 2025 End: August 05, 2025 Karlee Rodriguez NP-C Nurse Practitioner Active Start: 2025 End: August 05, 2025 GENEVA Stock Nurse Practitioner Active Start: 2025 End: August 05, 2025 Dr. Ying Jay , DO Nurse Practitioner Active S tart: 2025 End: August 05, 2025 Dr. Jonel Lorenzo MD Nurse Practitioner Active Start: 2025 End: August 05, 2025 Dr. Gena Porter MD Nurse Practitioner Active Start: 2025 End: August 05, 2025 Team Status: Active Member Role/Relationship Status Dates Dr. Dulce Maria Raymond MD Emergency Departmen t Physician Active Start: 2025 TAYLOR TAYLOR NP-C Primary care physician Active Start: 2025 Dr. Antoni Argueta , Admitting physician Activ e Start: 2025 Dr. Antoni Argueta , DO Referring Provider Active Start: 2025 Dr. Antoni Argueta , DO Nurse Practitioner Active Start: 2025 Dr. Bulamro Gandara MD Nurse Practitioner Active Start: 2025 Dr. Kamron Nguyen , DO Attending physician Active Start: 2025 Dr. Kamron Nguyen , DO Nurse Practitioner Active Start: 2025 Doris Jeffries NP-C Nurse Practitioner Active S tart: 2025 Karlee Rodriguez NP-C Nurse Practitioner Active Start: 2025 GENEVA Stock Nurse Practitioner Active Start: 2025 Dr. Dany Adamson MD Nurse Practitioner Active Start: 2025 Dr. Ryan Conway MD Nurse Practitioner Active Sta rt: 2025 Dr. Chema Caballero MD Nurse Practitioner Active Start: 2025 Dr. William Chavez , DO Nurse Practitioner Active S tart: 2025 Dr. Jonel Moya MD Nurse Practitioner Active Start: 2025 Dr. Lisa Willis , DO Nurse Practitioner Active S tart: 2025 Dr. Nima Yusuf MD Nurse Practitioner Active Start: 2025 Dr. Fernando Elaine MD Nurse Practitioner Active Start: 2025 Dr. Lowell Keating MD Nurse Practitioner Active Start: 2025 Dr. Jami Berrios MD Nurse Practitioner Active Start: 2025 Dr. Dayton Stock MD Nurse Practitioner Active S tart: 2025 Dr. Angel Fountain MD Nurse Practitioner Active St art: 2025 Dr. Barry Lo MD Nurse Practitioner Active Start: 2025 Dr. Austin Marie MD Nurse Practitioner Active S tart: 2025 Dr. Amanda Smith MD Nurse Practitioner Active Start: 2025 Dr. Bienvenido Gil MD Nurse Practitioner Active Start: 2025 Dr. Willis Vogel , DO Nurse Practitioner Active Start: 2025 Dr. Zeb Chavez MD Nurse Practitioner Active St art: 2025 Dr. Marcy Anton MD Nurse Practitioner Active Start: 2025 Dr. Catherine Radford MD Nurse Practitioner Active Start: 2025 Dr. Paulina Orlando , Nurse Practitioner Active Start: 2025 Dr. Benson Neff MD Nurse Practitioner Active Start: 2025 Dr. Deandre Nevarez MD Nurse Practitioner Active Start: 2025 Dr. Levon Cooper MD Nurse Practitioner Active Start: 2025 Dr. Pedro Mcmahon , Nurse Practitioner Active Start: 2025 Dr. Mirna Lao MD Nurse Practitioner Active St art: 2025 Dr. Yoan Anthony MD Nurse Practitioner Active Start: 2025 Dr. Jonathan Velez MD Nurse Practitioner Active Start: 2025 Dr. Anthony Odonnell DO Nurse Practitioner Active Start: 2025 Dr. Estuardo Alvarez MD Nurse Practitioner Active Start: 2025 Dr. Devendra Green MD Nurse Practitioner Active Start: 2025 Dr. Georges Duque MD Nurse Practitioner Active Start: 2025 Dr. Jonel Lorenzo MD Nurse Practitioner Active Start: 2025 Dr. Ying Jay , DO Nurse Practitioner Active S tart: 2025 Team Status: Active Member Role/Relationship Status Dates Dr. Dulce Maria Raymond MD Emergency Departmen t Physician Active Start: July 23, 2025 TAYLOR TAYLOR , LOOP SEWER-C Primary care physician Active Start: July 23, 2025 Dr. Antoni Argueta , DO Admitting physician Activ e Start: July 23, 2025 Dr. Antoni Argueta , DO Nurse Practitioner Active Start: July 23, 2025 Dr. Bulmaro Gandara MD Nurse Practitioner Active Start: July 23, 2025 Dr. Kamron Nguyen , DO Nurse Practitioner Active Start: July 23, 2025 Doris Jeffries NP-C Nurse Practitioner Active S tart: July 23, 2025 Karlee Rodriguez LOOP SEWER-C Nurse Practitioner Active Start: July 23, 2025 GENEVA Stock Nurse Practitioner Active Start: July 23, 2025 Dr. Dany Adamson MD Nurse Practitioner Active Start: July 23, 2025 Dr. Ryan oCnway MD Nurse Practitioner Active Sta rt: July 23, 2025 Dr. Chema Caballero MD Nurse Practitioner Active Start: July 23, 2025 Dr. William Chavez , DO Nurse Practitioner Active S tart: July 23, 2025 Dr. Jonel Moya MD Nurse Practitioner Active Start: July 23, 2025 Dr. Lisa Willis , DO Nurse Practitioner Active S tart: July 23, 2025 Dr. Nima Yusuf MD Nurse Practitioner Active Start: July 23, 2025 Dr. Fernando Elaine MD Nurse Practitioner Active Start: July 23, 2025 Dr. Lowell Keating MD Nurse Practitioner Active Start: July 23, 2025 Dr. Jami Berrios MD Nurse Practitioner Active Start: July 23, 2025 Dr. Dayton Stock MD Nurse Practitioner Active S tart: July 23, 2025 Dr. Angel Fountain MD Nurse Practitioner Active St art: July 23, 2025 Dr. Barry Lo MD Nurse Practitioner Active Start: July 23, 2025 Dr. Austin Marie MD Nurse Practitioner Active S tart: July 23, 2025 Dr. Amanda Smith MD Nurse Practitioner Active Start: July 23, 2025 Dr. Bienvenido Gil MD Nurse Practitioner Active Start: July 23, 2025 Dr. Willis Vogel , DO Nurse Practitioner Active Start: July 23, 2025 Dr. Zeb Chavez MD Nurse Practitioner Active St art: July 23, 2025 Dr. Marcy Anton MD Nurse Practitioner Active Start: July 23, 2025 Dr. Catherine Radford MD Nurse Practitioner Active Start: July 23, 2025 Dr. Paulina Orlando , DO Nurse Practitioner Active Start: July 23, 2025 Dr. Benson Neff MD Nurse Practitioner Active Start: July 23, 2025 Dr. Deandre Nevarez MD Nurse Practitioner Active Start: July 23, 2025 Dr. Levon Cooper MD Nurse Practitioner Active Start: July 23, 2025 Dr. Pedro Mcmahon , DO Nurse Practitioner Active Start: July 23, 2025 Dr. Mirna Lao MD Nurse Practitioner Active St art: July 23, 2025 Dr. Yoan Anthony MD Nurse Practitioner Active Start: July 23, 2025 Dr. Jonathan Velez MD Nurse Practitioner Active Start: July 23, 2025 Dr. Anthony Odonnell , Nurse Practitioner Active Start: July 23, 2025 Dr. Estuardo Alvarez MD Nurse Practitioner Active Start: July 23, 2025 Dr. Devendra Green MD Nurse Practitioner Active Start: July 23, 2025 Dr. Georges Duque MD Nurse Practitioner Active Start: July 23, 2025 Dr. Ying Jay , DO Attending physician Active Start: July 23, 2025 Dr. Ying Jay , DO Nurse Practitioner Active S tart: July 23, 2025 Team Status: Active Member Role/Relationship Status Dates LILI STOREY Primary care physician Active Start: July 23, 2025 Dr. Andreina Guardado MD Attending physician Active Start: July 23, 2025 Team Status: Active Member Role/Relationship Status Dates Dr. Dulce Maria Raymond MD Emergency Departmen t Physician Active Start: July 24, 2025 TAYLOR TAYLOR NP-C Primary care physician Active Start: July 24, 2025 Dr. Antoni Argueta , DO Admitting physician Activ e Start: July 24, 2025 Dr. Antoni Argueta , DO Nurse Practitioner Active Start: July 24, 2025 Dr. Bulmaro Gandara MD Nurse Practitioner Active Start: July 24, 2025 Dr. Kamron Nguyen , Nurse Practitioner Active Start: July 24, 2025 Doris Jeffries NP-C Nurse Practitioner Active S tart: July 24, 2025 Karlee Rodriguez NP-C Nurse Practitioner Active Start: July 24, 2025 GENEVA Stock Nurse Practitioner Active Start: July 24, 2025 Dr. Dany Adamson MD Nurse Practitioner Active Start: July 24, 2025 Dr. Ryan Conway MD Nurse Practitioner Active Sta rt: July 24, 2025 Dr. Chema Caballero MD Nurse Practitioner Active Start: July 24, 2025 Dr. William Chavez , DO Nurse Practitioner Active S tart: July 24, 2025 Dr. Jonel Moya MD Nurse Practitioner Active Start: July 24, 2025 Dr. Lisa Willis , DO Nurse Practitioner Active S tart: July 24, 2025 Dr. Nima Yusuf MD Nurse Practitioner Active Start: July 24, 2025 Dr. Fernando Elaine MD Nurse Practitioner Active Start: July 24, 2025 Dr. Lowell Keating MD Nurse Practitioner Active Start: July 24, 2025 Dr. Jami Berrios MD Nurse Practitioner Active Start: July 24, 2025 Dr. Dayton Stock MD Nurse Practitioner Active S tart: July 24, 2025 Dr. Angel Fountain MD Nurse Practitioner Active St art: July 24, 2025 Dr. Barry Lo MD Nurse Practitioner Active Start: July 24, 2025 Dr. Austin Marie MD Nurse Practitioner Active S tart: July 24, 2025 Dr. Amanda Smith MD Nurse Practitioner Active Start: July 24, 2025 Dr. Bienvenido Gil MD Nurse Practitioner Active Start: July 24, 2025 Dr. Willis Vogel , DO Nurse Practitioner Active Start: July 24, 2025 Dr. Zeb Chavez MD Nurse Practitioner Active St art: July 24, 2025 Dr. Marcy Anton MD Nurse Practitioner Active Start: July 24, 2025 Dr. Catherine Radford MD Nurse Practitioner Active Start: July 24, 2025 Dr. Paulina Orlando , DO Nurse Practitioner Active Start: July 24, 2025 Dr. Benson Neff MD Nurse Practitioner Active Start: July 24, 2025 Dr. Deandre Nevarez MD Nurse Practitioner Active Start: July 24, 2025 Dr. Levon Cooper MD Nurse Practitioner Active Start: July 24, 2025 Dr. Pedro Mcmahon , DO Nurse Practitioner Active Start: July 24, 2025 Dr. Mirna Lao MD Nurse Practitioner Active St art: July 24, 2025 Dr. Yoan Anthony MD Nurse Practitioner Active Start: July 24, 2025 Dr. Jonathan Velez MD Nurse Practitioner Active Start: July 24, 2025 Dr. Anthony Odonnell , DO Nurse Practitioner Active Start: July 24, 2025 Dr. Estuardo Alvarez MD Nurse Practitioner Active Start: July 24, 2025 Dr. Devendra Green MD Nurse Practitioner Active Start: July 24, 2025 Dr. Georges Duque MD Nurse Practitioner Active Start: July 24, 2025 Dr. Ying Jay , Attending physician Active Start: July 24, 2025 Dr. Ying Jay , Nurse Practitioner Active S tart: July 24, 2025 Team Status: Active Member Role/Relationship Status Dates Dr. Dulce Maria Raymond MD Emergency Departmen t Physician Active Start: July 25, 2025 TAYLOR TAYLOR NP-C Primary care physician Active Start: July 25, 2025 Dr. Antoni Argueta , Admitting physician Activ e Start: July 25, 2025 Dr. Antoni Argueta , DO Nurse Practitioner Active Start: July 25, 2025 Dr. Bulmaro Gandara MD Nurse Practitioner Active Start: July 25, 2025 Dr. Kamron Nugyen , Nurse Practitioner Active Start: July 25, 2025 LILI Roque Nurse Practitioner Active S tart: July 25, 2025 Karlee Rodriguez NP-C Nurse Practitioner Active Start: July 25, 2025 GENEVA Stock Nurse Practitioner Active Start: July 25, 2025 Dr. Dany Adamson MD Nurse Practitioner Active Start: July 25, 2025 Dr. Ryan Conway MD Nurse Practitioner Active Sta rt: July 25, 2025 Dr. Chema Caballero MD Nurse Practitioner Active Start: July 25, 2025 Dr. William Chavez , DO Attending physician Active Start: July 25, 2025 Dr. William Chavez , DO Nurse Practitioner Active S tart: July 25, 2025 Dr. Jonel Moya MD Nurse Practitioner Active Start: July 25, 2025 Dr. Lisa Willis , Nurse Practitioner Active S tart: July 25, 2025 Dr. Nima Yusuf MD Nurse Practitioner Active Start: July 25, 2025 Dr. Fernando Elaine MD Nurse Practitioner Active Start: July 25, 2025 Dr. Lowell Keating MD Nurse Practitioner Active Start: July 25, 2025 Dr. Jami Berrios MD Nurse Practitioner Active Start: July 25, 2025 Dr. Dayton Stock MD Nurse Practitioner Active S tart: July 25, 2025 Dr. Angel Fountain MD Nurse Practitioner Active St art: July 25, 2025 Dr. Barry Lo MD Nurse Practitioner Active Start: July 25, 2025 Dr. Austin Marie MD Nurse Practitioner Active S tart: July 25, 2025 Dr. Amanda Smith MD Nurse Practitioner Active Start: July 25, 2025 Dr. Bienvenido Gil MD Nurse Practitioner Active Start: July 25, 2025 Dr. Willis Vogel , Nurse Practitioner Active Start: July 25, 2025 Dr. Zeb Chavez MD Nurse Practitioner Active St art: July 25, 2025 Dr. Marcy Anton MD Nurse Practitioner Active Start: July 25, 2025 Dr. Catherine Radford MD Nurse Practitioner Active Start: July 25, 2025 Dr. Paulina Orlando , Nurse Practitioner Active Start: July 25, 2025 Dr. Benson Neff MD Nurse Practitioner Active Start: July 25, 2025 Dr. Deandre Nevarez MD Nurse Practitioner Active Start: July 25, 2025 Dr. Levon Cooper MD Nurse Practitioner Active Start: July 25, 2025 Dr. Pedro Mcmahon , DO Nurse Practitioner Active Start: July 25, 2025 Dr. Mirna Lao MD Nurse Practitioner Active St art: July 25, 2025 Dr. Yoan Anthony MD Nurse Practitioner Active Start: July 25, 2025 Dr. Jonathan Velez MD Nurse Practitioner Active Start: July 25, 2025 Dr. Anthony Odonnell , Nurse Practitioner Active Start: July 25, 2025 Dr. Estuardo Alvarez MD Nurse Practitioner Active Start: July 25, 2025 Dr. Devendra Green MD Nurse Practitioner Active Start: July 25, 2025 Dr. Georges Duque MD Nurse Practitioner Active Start: July 25, 2025 Dr. Jonel Lorenzo MD Referring Provider Active Start: July 25, 2025 Dr. Jonel Lorenzo MD Nurse Practitioner Active Start: July 25, 2025 Dr. Ying Jay DO Nurse Practitioner Active S tart: July 25, 2025 Team Status: Active Member Role/Relationship Status Dates Dr. Dulce Maria Raymond MD Emergency Departmen t Physician Active Start: July 25, 2025 TAYLOR TAYLOR NP-C Primary care physician Active Start: July 25, 2025 Dr. Antoni Argueta DO Admitting physician Activ e Start: July 25, 2025 Dr. Antoni Argueta , Nurse Practitioner Active Start: July 25, 2025 Dr. Bulmaro Gandara MD Nurse Practitioner Active Start: July 25, 2025 Dr. Kamron Nguyen , Nurse Practitioner Active Start: July 25, 2025 Doris Jeffries NP-C Nurse Practitioner Active S tart: July 25, 2025 Karlee Rodriguez NP-C Nurse Practitioner Active Start: July 25, 2025 GENEVA Stock Nurse Practitioner Active Start: July 25, 2025 Dr. Dany Adamson MD Nurse Practitioner Active Start: July 25, 2025 Dr. Ryan Conway MD Nurse Practitioner Active Sta rt: July 25, 2025 Dr. Chema Caballero MD Nurse Practitioner Active Start: July 25, 2025 Dr. William Chavez DO Nurse Practitioner Active S tart: July 25, 2025 Dr. Jonel Moya MD Nurse Practitioner Active Start: July 25, 2025 Dr. Lisa Willis , Nurse Practitioner Active S tart: July 25, 2025 Dr. Nima Yusuf MD Nurse Practitioner Active Start: July 25, 2025 Dr. Fernando Elaine MD Nurse Practitioner Active Start: July 25, 2025 Dr. Lowell Keating MD Nurse Practitioner Active Start: July 25, 2025 Dr. Jami Berrios MD Nurse Practitioner Active Start: July 25, 2025 Dr. Dayton Stock MD Nurse Practitioner Active S tart: July 25, 2025 Dr. Angel Fountain MD Nurse Practitioner Active St art: July 25, 2025 Dr. Barry Lo MD Nurse Practitioner Active Start: July 25, 2025 Dr. Austin Marie MD Nurse Practitioner Active S tart: July 25, 2025 Dr. Amanda Smith MD Nurse Practitioner Active Start: July 25, 2025 Dr. Bienvenido Gil MD Nurse Practitioner Active Start: July 25, 2025 Dr. Willis Vogel , Nurse Practitioner Active Start: July 25, 2025 Dr. Zeb Chavez MD Nurse Practitioner Active St art: July 25, 2025 Dr. Marcy Anton MD Nurse Practitioner Active Start: July 25, 2025 Dr. Catherine Radford MD Nurse Practitioner Active Start: July 25, 2025 Dr. Paulina Orlando , Nurse Practitioner Active Start: July 25, 2025 Dr. Benson Neff MD Nurse Practitioner Active Start: July 25, 2025 Dr. Deandre Nevarez MD Nurse Practitioner Active Start: July 25, 2025 Dr. Levon Cooper MD Nurse Practitioner Active Start: July 25, 2025 Dr. Pedro Mcmahon , Nurse Practitioner Active Start: July 25, 2025 Dr. Mirna Lao MD Nurse Practitioner Active St art: July 25, 2025 Dr. Yoan Anthony MD Nurse Practitioner Active Start: July 25, 2025 Dr. Jonathan Velez MD Nurse Practitioner Active Start: July 25, 2025 Dr. Anthony Odonnell , DO Nurse Practitioner Active Start: July 25, 2025 Dr. Estuardo Alvarez MD Nurse Practitioner Active Start: July 25, 2025 Dr. Devendra Green MD Nurse Practitioner Active Start: July 25, 2025 Dr. Georges Duque MD Nurse Practitioner Active Start: July 25, 2025 Dr. Jonel Lorenzo MD Attending physician Active Start: July 25, 2025 Dr. Jonel Lorenzo MD Nurse Practitioner Active Start: July 25, 2025 Dr. Ying Jay , DO Nurse Practitioner Active S tart: July 25, 2025 Team Status: Active Member Role/Relationship Status Dates Dr. Dulce Maria Raymond MD Emergency Departmen t Physician Active Start: July 25, 2025 TAYLOR TAYLOR NP-C Primary care physician Active Start: July 25, 2025 Dr. Antoni Argueta , DO Admitting physician Activ e Start: July 25, 2025 Dr. Antoni Argueta , DO Nurse Practitioner Active Start: July 25, 2025 Dr. Bulmaro Gandara MD Nurse Practitioner Active Start: July 25, 2025 Dr. Kamron Nguyen , Attending physician Active Start: July 25, 2025 Dr. Kamron Nguyen , DO Nurse Practitioner Active Start: July 25, 2025 Doris Jeffries NP-C Nurse Practitioner Active S tart: July 25, 2025 Karlee Rodriguez NP-C Nurse Practitioner Active Start: July 25, 2025 GENEVA Stock Nurse Practitioner Active Start: July 25, 2025 Dr. Dany Adamson MD Nurse Practitioner Active Start: July 25, 2025 Dr. Ryan Conway MD Nurse Practitioner Active Sta rt: July 25, 2025 Dr. Chema Caballero MD Nurse Practitioner Active Start: July 25, 2025 Dr. William Chavez , DO Nurse Practitioner Active S tart: July 25, 2025 Dr. Jonel Moya MD Nurse Practitioner Active Start: July 25, 2025 Dr. Lisa Willis , DO Nurse Practitioner Active S tart: July 25, 2025 Dr. Nima Yusuf MD Nurse Practitioner Active Start: July 25, 2025 Dr. Fernando Elaine MD Nurse Practitioner Active Start: July 25, 2025 Dr. Lowell Keating MD Nurse Practitioner Active Start: July 25, 2025 Dr. Jami Berrios MD Nurse Practitioner Active Start: July 25, 2025 Dr. Dayton Stock MD Nurse Practitioner Active S tart: July 25, 2025 Dr. Angel Fountain MD Nurse Practitioner Active St art: July 25, 2025 Dr. Barry Lo MD Nurse Practitioner Active Start: July 25, 2025 Dr. Austin Marie MD Nurse Practitioner Active S tart: July 25, 2025 Dr. Amanda Smith MD Nurse Practitioner Active Start: July 25, 2025 Dr. Bienvenido Gil MD Nurse Practitioner Active Start: July 25, 2025 Dr. Willis Vogel , DO Nurse Practitioner Active Start: July 25, 2025 Dr. Zeb Chavez MD Nurse Practitioner Active St art: July 25, 2025 Dr. Marcy Anton MD Nurse Practitioner Active Start: July 25, 2025 Dr. Catherine Radford MD Nurse Practitioner Active Start: July 25, 2025 Dr. Paulina Orlando , DO Nurse Practitioner Active Start: July 25, 2025 Dr. Benson Neff MD Nurse Practitioner Active Start: July 25, 2025 Dr. Deandre Nevarez MD Nurse Practitioner Active Start: July 25, 2025 Dr. Levon Cooper MD Nurse Practitioner Active Start: July 25, 2025 Dr. Pedro Mcmahon , DO Nurse Practitioner Active Start: July 25, 2025 Dr. Mirna Lao MD Nurse Practitioner Active St art: July 25, 2025 Dr. Yoan Anthony MD Nurse Practitioner Active Start: July 25, 2025 Dr. Jonathan Velez MD Nurse Practitioner Active Start: July 25, 2025 Dr. Anthony Odonnell , Nurse Practitioner Active Start: July 25, 2025 Dr. Estuardo Alvarez MD Nurse Practitioner Active Start: July 25, 2025 Dr. Devendra Green MD Nurse Practitioner Active Start: July 25, 2025 Dr. Georges Duque MD Nurse Practitioner Active Start: July 25, 2025 Dr. Jonel Lorenzo MD Nurse Practitioner Active Start: July 25, 2025 Dr. Ying Jay , DO Nurse Practitioner Active S tart: July 25, 2025 Team Status: Active Member Role/Relationship Status Dates Dr. Dulce Maria Raymond MD Emergency Departmen t Physician Active Start: July 26, 2025 TAYLOR TAYLOR , LOOP SEWER-C Primary care physician Active Start: July 26, 2025 Dr. Antoni Argueta , DO Admitting physician Activ e Start: July 26, 2025 Dr. Antoni Argueta , DO Nurse Practitioner Active Start: July 26, 2025 Dr. Bulmaro Gandara MD Nurse Practitioner Active Start: July 26, 2025 Dr. Kamron Nguyen , DO Nurse Practitioner Active Start: July 26, 2025 Doris Jeffries NP-C Nurse Practitioner Active S tart: July 26, 2025 Karlee Rodriguez LOOP SEWER-C Nurse Practitioner Active Start: July 26, 2025 GENEVA Stock Nurse Practitioner Active Start: July 26, 2025 Dr. Dany Adamson MD Nurse Practitioner Active Start: July 26, 2025 Dr. Ryan Conway MD Nurse Practitioner Active Sta rt: July 26, 2025 Dr. Chema Caballero MD Nurse Practitioner Active Start: July 26, 2025 Dr. William Chavez , Nurse Practitioner Active S tart: July 26, 2025 Dr. Jonel Moya MD Nurse Practitioner Active Start: July 26, 2025 Dr. Lisa Willis , Nurse Practitioner Active S tart: July 26, 2025 Dr. Nima Yusuf MD Nurse Practitioner Active Start: July 26, 2025 Dr. Fernando Elaine MD Nurse Practitioner Active Start: July 26, 2025 Dr. Lowell Keating MD Nurse Practitioner Active Start: July 26, 2025 Dr. Jami Berrios MD Nurse Practitioner Active Start: July 26, 2025 Dr. Dayton Stock MD Nurse Practitioner Active S tart: July 26, 2025 Dr. Angel Fountain MD Nurse Practitioner Active St art: July 26, 2025 Dr. Barry Lo MD Nurse Practitioner Active Start: July 26, 2025 Dr. Austin Marie MD Nurse Practitioner Active S tart: July 26, 2025 Dr. Amanda Smith MD Nurse Practitioner Active Start: July 26, 2025 Dr. Bienvenido Gil MD Nurse Practitioner Active Start: July 26, 2025 Dr. Willis Vogel , Nurse Practitioner Active Start: July 26, 2025 Dr. Zeb Chavez MD Nurse Practitioner Active St art: July 26, 2025 Dr. Marcy Anton MD Nurse Practitioner Active Start: July 26, 2025 Dr. Catherine Radford MD Nurse Practitioner Active Start: July 26, 2025 Dr. Paulina Orlando , Nurse Practitioner Active Start: July 26, 2025 Dr. Benson Neff MD Nurse Practitioner Active Start: July 26, 2025 Dr. Deandre Nevarez MD Nurse Practitioner Active Start: July 26, 2025 Dr. Levon Cooper MD Nurse Practitioner Active Start: July 26, 2025 Dr. Pedro Mcmahon , Nurse Practitioner Active Start: July 26, 2025 Dr. Mirna Lao MD Nurse Practitioner Active St art: July 26, 2025 Dr. Yoan Anthony MD Nurse Practitioner Active Start: July 26, 2025 Dr. Jonathan Velez MD Nurse Practitioner Active Start: July 26, 2025 Dr. Anthony Odonnell DO Nurse Practitioner Active Start: July 26, 2025 Dr. Estuardo Alvarez MD Nurse Practitioner Active Start: July 26, 2025 Dr. Devendra Green MD Nurse Practitioner Active Start: July 26, 2025 Dr. Georges Duque MD Nurse Practitioner Active Start: July 26, 2025 Dr. Jonel Lorenzo MD Attending physician Active Start: July 26, 2025 Dr. Jonel Lorenzo MD Nurse Practitioner Active Start: July 26, 2025 Dr. Ying Jay DO Nurse Practitioner Active S tart: July 26, 2025 Team Status: Active Member Role/Relationship Status Dates Dr. Dulce Maria Raymond MD Emergency Departmen t Physician Active Start: July 26, 2025 TAYLOR TAYLOR NP-C Primary care physician Active Start: July 26, 2025 Dr. Antoni Argueta , Admitting physician Activ e Start: July 26, 2025 Dr. Antoni Argueta , DO Nurse Practitioner Active Start: July 26, 2025 Dr. Bulmaro Gandara MD Nurse Practitioner Active Start: July 26, 2025 Dr. Kamron Nguyen , DO Nurse Practitioner Active Start: July 26, 2025 Doris Jeffries NP-C Nurse Practitioner Active S tart: July 26, 2025 Karlee Rodriguez LOOP SEWER-C Nurse Practitioner Active Start: July 26, 2025 GENEVA Stock Nurse Practitioner Active Start: July 26, 2025 Dr. Dany Adamson MD Nurse Practitioner Active Start: July 26, 2025 Dr. Ryan Conway MD Nurse Practitioner Active Sta rt: July 26, 2025 Dr. Chema Caballero MD Nurse Practitioner Active Start: July 26, 2025 Dr. William Chavez DO Attending physician Active Start: July 26, 2025 Dr. William Chavez , Nurse Practitioner Active S tart: July 26, 2025 Dr. Jonel Moya MD Nurse Practitioner Active Start: July 26, 2025 Dr. Lisa Willis , Nurse Practitioner Active S tart: July 26, 2025 Dr. Nima Yusuf MD Nurse Practitioner Active Start: July 26, 2025 Dr. Fernando Elaine MD Nurse Practitioner Active Start: July 26, 2025 Dr. Lowell Keating MD Nurse Practitioner Active Start: July 26, 2025 Dr. Jami Berrios MD Nurse Practitioner Active Start: July 26, 2025 Dr. Dayton Stock MD Nurse Practitioner Active S tart: July 26, 2025 Dr. Angel Fountain MD Nurse Practitioner Active St art: July 26, 2025 Dr. Barry Lo MD Nurse Practitioner Active Start: July 26, 2025 Dr. Austin Marie MD Nurse Practitioner Active S tart: July 26, 2025 Dr. Amanda Smith MD Nurse Practitioner Active Start: July 26, 2025 Dr. Bienvenido Gil MD Nurse Practitioner Active Start: July 26, 2025 Dr. Willis Vogel , Nurse Practitioner Active Start: July 26, 2025 Dr. Zeb Chavez MD Nurse Practitioner Active St art: July 26, 2025 Dr. Marcy Anton MD Nurse Practitioner Active Start: July 26, 2025 Dr. Catherine Radford MD Nurse Practitioner Active Start: July 26, 2025 Dr. Paulina Orlando , DO Nurse Practitioner Active Start: July 26, 2025 Dr. Benson Neff MD Nurse Practitioner Active Start: July 26, 2025 Dr. Deandre Nevarez MD Nurse Practitioner Active Start: July 26, 2025 Dr. Levon Cooper MD Nurse Practitioner Active Start: July 26, 2025 Dr. Pedro Mcmahon , DO Nurse Practitioner Active Start: July 26, 2025 Dr. Mirna Lao MD Nurse Practitioner Active St art: July 26, 2025 Dr. Yoan Anthony MD Nurse Practitioner Active Start: July 26, 2025 Dr. Jonathan Velez MD Nurse Practitioner Active Start: July 26, 2025 Dr. Anthony Odonnell , Nurse Practitioner Active Start: July 26, 2025 Dr. Estuardo Alvarez MD Nurse Practitioner Active Start: July 26, 2025 Dr. Devendra Green MD Nurse Practitioner Active Start: July 26, 2025 Dr. Georges Duque MD Nurse Practitioner Active Start: July 26, 2025 Dr. Jonel Lorenzo MD Referring Provider Active Start: July 26, 2025 Dr. Jonel Lorenzo MD Nurse Practitioner Active Start: July 26, 2025 Dr. Ying Jay , Nurse Practitioner Active S tart: July 26, 2025 Team Status: Active Member Role/Relationship Status Dates LILI STOREY Primary care physician Active Start: July 26, 2025 Dr. Kamron Nguyen , Attending physician Active Start: July 26, 2025 Team Status: Active Member Role/Relationship Status Dates Dr. Dulce Maria Raymond MD Emergency Departmen t Physician Active Start: July 27, 2025 MEJIA STOREYC Primary care physician Active Start: July 27, 2025 Dr. Antoni Argueta DO Admitting physician Activ e Start: July 27, 2025 Dr. Antoni Argueta , Nurse Practitioner Active Start: July 27, 2025 Dr. Bulmaro Gandara MD Nurse Practitioner Active Start: July 27, 2025 Dr. Kamron Nguyen , Nurse Practitioner Active Start: July 27, 2025 Doris Jeffries NP-C Nurse Practitioner Active S tart: July 27, 2025 Karlee Rodriguez LOOP SEWER-C Nurse Practitioner Active Start: July 27, 2025 GENEVA Stock Nurse Practitioner Active Start: July 27, 2025 Dr. Dany Adamson MD Nurse Practitioner Active Start: July 27, 2025 Dr. Ryan Conway MD Nurse Practitioner Active Sta rt: July 27, 2025 Dr. Chema Caballero MD Nurse Practitioner Active Start: July 27, 2025 Dr. William Chavez , DO Nurse Practitioner Active S tart: July 27, 2025 Dr. Jonel Moya MD Nurse Practitioner Active Start: July 27, 2025 Dr. Lisa Willis , Nurse Practitioner Active S tart: July 27, 2025 Dr. Nima Yusuf MD Nurse Practitioner Active Start: July 27, 2025 Dr. Fernando Elaine MD Nurse Practitioner Active Start: July 27, 2025 Dr. Lowell Keating MD Nurse Practitioner Active Start: July 27, 2025 Dr. Jami Berrios MD Nurse Practitioner Active Start: July 27, 2025 Dr. Dayton Stock MD Nurse Practitioner Active S tart: July 27, 2025 Dr. Angel Fountain MD Nurse Practitioner Active St art: July 27, 2025 Dr. Barry Lo MD Nurse Practitioner Active Start: July 27, 2025 Dr. Austin Marie MD Nurse Practitioner Active S tart: July 27, 2025 Dr. Amanda Smith MD Nurse Practitioner Active Start: July 27, 2025 Dr. Bienvenido Gil MD Nurse Practitioner Active Start: July 27, 2025 Dr. Willis Vogel , Nurse Practitioner Active Start: July 27, 2025 Dr. Zeb Chavez MD Nurse Practitioner Active St art: July 27, 2025 Dr. Marcy Anton MD Nurse Practitioner Active Start: July 27, 2025 Dr. Catherine Radford MD Nurse Practitioner Active Start: July 27, 2025 Dr. Paulina Orlando , DO Nurse Practitioner Active Start: July 27, 2025 Dr. Benson Neff MD Nurse Practitioner Active Start: July 27, 2025 Dr. Deandre Nevarez MD Nurse Practitioner Active Start: July 27, 2025 Dr. Levon Cooper MD Nurse Practitioner Active Start: July 27, 2025 Dr. Pedro Mcmahon , DO Nurse Practitioner Active Start: July 27, 2025 Dr. Mirna Lao MD Nurse Practitioner Active St art: July 27, 2025 Dr. Yoan Anthony MD Nurse Practitioner Active Start: July 27, 2025 Dr. Jonathan Velez MD Nurse Practitioner Active Start: July 27, 2025 Dr. Anthony Odonnell , Nurse Practitioner Active Start: July 27, 2025 Dr. Estuardo Alvarez MD Nurse Practitioner Active Start: July 27, 2025 Dr. Devendra Green MD Nurse Practitioner Active Start: July 27, 2025 Dr. Georges Duque MD Nurse Practitioner Active Start: July 27, 2025 Dr. Jonel Lorenzo MD Attending physician Active Start: July 27, 2025 Dr. Jonel Lorenzo MD Nurse Practitioner Active Start: July 27, 2025 Dr. Ying Jay , Nurse Practitioner Active S tart: July 27, 2025 Team Status: Active Member Role/Relationship Status Dates Dr. Dulce Maria Raymond MD Emergency Departmen t Physician Active Start: July 27, 2025 TAYLOR TAYLOR NP-Eddie Primary care physician Active Start: July 27, 2025 Dr. Antoni Argueta , Admitting physician Activ e Start: July 27, 2025 Dr. Antoni Argueta , DO Nurse Practitioner Active Start: July 27, 2025 Dr. Bulmaro Gandara MD Nurse Practitioner Active Start: July 27, 2025 Dr. Kamron Nguyen , Nurse Practitioner Active Start: July 27, 2025 LILI Roque Nurse Practitioner Active S tart: July 27, 2025 Karlee Rodriguez NP-C Nurse Practitioner Active Start: July 27, 2025 GENEVA Stock Nurse Practitioner Active Start: July 27, 2025 Dr. Dany Adamson MD Nurse Practitioner Active Start: July 27, 2025 Dr. Ryan Conway MD Nurse Practitioner Active Sta rt: July 27, 2025 Dr. Chema Caballero MD Nurse Practitioner Active Start: July 27, 2025 Dr. William Chavez , Attending physician Active Start: July 27, 2025 Dr. William Chavez , DO Nurse Practitioner Active S tart: July 27, 2025 Dr. Jonel Moya MD Nurse Practitioner Active Start: July 27, 2025 Dr. Lisa Willis , Nurse Practitioner Active S tart: July 27, 2025 Dr. Nima Yusuf MD Nurse Practitioner Active Start: July 27, 2025 Dr. Fernando Elaine MD Nurse Practitioner Active Start: July 27, 2025 Dr. Lowell Keating MD Nurse Practitioner Active Start: July 27, 2025 Dr. Jami Berrios MD Nurse Practitioner Active Start: July 27, 2025 Dr. Dayton Stock MD Nurse Practitioner Active S tart: July 27, 2025 Dr. Angel Fountain MD Nurse Practitioner Active St art: July 27, 2025 Dr. Barry Lo MD Nurse Practitioner Active Start: July 27, 2025 Dr. Austin Marie MD Nurse Practitioner Active S tart: July 27, 2025 Dr. Amanda Smith MD Nurse Practitioner Active Start: July 27, 2025 Dr. Bienvenido Gil MD Nurse Practitioner Active Start: July 27, 2025 Dr. Willis Vogel , Nurse Practitioner Active Start: July 27, 2025 Dr. Zeb Chavez MD Nurse Practitioner Active St art: July 27, 2025 Dr. Marcy Anton MD Nurse Practitioner Active Start: July 27, 2025 Dr. Catherine Radford MD Nurse Practitioner Active Start: July 27, 2025 Dr. Paulina Orlando , Nurse Practitioner Active Start: July 27, 2025 Dr. Benson Neff MD Nurse Practitioner Active Start: July 27, 2025 Dr. Deandre Nevarez MD Nurse Practitioner Active Start: July 27, 2025 Dr. Levon Cooper MD Nurse Practitioner Active Start: July 27, 2025 Dr. Pedro Mcmahon , DO Nurse Practitioner Active Start: July 27, 2025 Dr. Mirna Lao MD Nurse Practitioner Active St art: July 27, 2025 Dr. Yoan Anthony MD Nurse Practitioner Active Start: July 27, 2025 Dr. Jonathan Velez MD Nurse Practitioner Active Start: July 27, 2025 Dr. Anthony Odonnell , Nurse Practitioner Active Start: July 27, 2025 Dr. Estuardo Alvarez MD Nurse Practitioner Active Start: July 27, 2025 Dr. Devendra Green MD Nurse Practitioner Active Start: July 27, 2025 Dr. Georges Duque MD Nurse Practitioner Active Start: July 27, 2025 Dr. Jonel Lorenzo MD Referring Provider Active Start: July 27, 2025 Dr. Jonel Lorenzo MD Nurse Practitioner Active Start: July 27, 2025 Dr. Ying Jay DO Nurse Practitioner Active S tart: July 27, 2025 Team Status: Active Member Role/Relationship Status Dates Dr. Dulce Maria Raymond MD Emergency Departmen t Physician Active Start: July 28, 2025 TAYLOR TAYLOR NP-C Primary care physician Active Start: July 28, 2025 Dr. Antoni Argueta DO Admitting physician Activ e Start: July 28, 2025 Dr. Antoni Argueta , Nurse Practitioner Active Start: July 28, 2025 Dr. Bulmaro Gandara MD Nurse Practitioner Active Start: July 28, 2025 Dr. Kamron Nguyen , Nurse Practitioner Active Start: July 28, 2025 Doris Jeffries NP-C Nurse Practitioner Active S tart: July 28, 2025 Karlee Rodriguez NP-C Nurse Practitioner Active Start: July 28, 2025 GENEVA Stock Nurse Practitioner Active Start: July 28, 2025 Dr. Dany Adamson MD Nurse Practitioner Active Start: July 28, 2025 Dr. Ryan Conway MD Nurse Practitioner Active Sta rt: July 28, 2025 Dr. Chema Caballero MD Nurse Practitioner Active Start: July 28, 2025 Dr. William Chavez , Nurse Practitioner Active S tart: July 28, 2025 Dr. Jonel Moya MD Nurse Practitioner Active Start: July 28, 2025 Dr. Lisa Willis , Nurse Practitioner Active S tart: July 28, 2025 Dr. Nima Yusuf MD Nurse Practitioner Active Start: July 28, 2025 Dr. Fernando Elaine MD Nurse Practitioner Active Start: July 28, 2025 Dr. Lowell Keating MD Nurse Practitioner Active Start: July 28, 2025 Dr. Jami Berrios MD Nurse Practitioner Active Start: July 28, 2025 Dr. Dayton Stock MD Nurse Practitioner Active S tart: July 28, 2025 Dr. Angel Fountain MD Nurse Practitioner Active St art: July 28, 2025 Dr. Barry Lo MD Nurse Practitioner Active Start: July 28, 2025 Dr. Austin Marie MD Nurse Practitioner Active S tart: July 28, 2025 Dr. Amanda Smith MD Nurse Practitioner Active Start: July 28, 2025 Dr. Bienvenido Gil MD Nurse Practitioner Active Start: July 28, 2025 Dr. Willis Vogel , Nurse Practitioner Active Start: July 28, 2025 Dr. Zeb Chavez MD Nurse Practitioner Active St art: July 28, 2025 Dr. Marcy Anton MD Nurse Practitioner Active Start: July 28, 2025 Dr. Catherine Radford MD Nurse Practitioner Active Start: July 28, 2025 Dr. Paulina Orlando , DO Nurse Practitioner Active Start: July 28, 2025 Dr. Benson Neff MD Nurse Practitioner Active Start: July 28, 2025 Dr. Deandre Nevarez MD Nurse Practitioner Active Start: July 28, 2025 Dr. Levon Cooper MD Nurse Practitioner Active Start: July 28, 2025 Dr. Pedro Mcmahon , Nurse Practitioner Active Start: July 28, 2025 Dr. Mirna Lao MD Nurse Practitioner Active St art: July 28, 2025 Dr. Yoan Anthony MD Nurse Practitioner Active Start: July 28, 2025 Dr. Jonathan Velez MD Nurse Practitioner Active Start: July 28, 2025 Dr. Anthony Odonnell , Nurse Practitioner Active Start: July 28, 2025 Dr. Estuardo Alvarez MD Nurse Practitioner Active Start: July 28, 2025 Dr. Devendra Green MD Nurse Practitioner Active Start: July 28, 2025 Dr. Georges Duque MD Nurse Practitioner Active Start: July 28, 2025 Dr. Jonel Lorenzo MD Attending physician Active Start: July 28, 2025 Dr. Jonel Lorenzo MD Nurse Practitioner Active Start: July 28, 2025 Dr. Ying Jay , Nurse Practitioner Active S tart: July 28, 2025 Team Status: Active Member Role/Relationship Status Dates Dr. Dulce Maria Raymond MD Emergency Departmen t Physician Active Start: July 28, 2025 TAYLOR TAYLOR NP-C Primary care physician Active Start: July 28, 2025 Dr. Antoni Argueta DO Admitting physician Activ e Start: July 28, 2025 Dr. Antoni Argueta , Nurse Practitioner Active Start: July 28, 2025 Dr. Bulmaro Gandara MD Nurse Practitioner Active Start: July 28, 2025 Dr. Kamron Nguyen , Nurse Practitioner Active Start: July 28, 2025 Doris Jeffries NP-C Nurse Practitioner Active S tart: July 28, 2025 Karlee Rodriguez NP-C Nurse Practitioner Active Start: July 28, 2025 GENEVA Stock Nurse Practitioner Active Start: July 28, 2025 Dr. Dany Adamson MD Nurse Practitioner Active Start: July 28, 2025 Dr. Ryan Conway MD Nurse Practitioner Active Sta rt: July 28, 2025 Dr. Chema Caballero MD Nurse Practitioner Active Start: July 28, 2025 Dr. William Chavez DO Attending physician Active Start: July 28, 2025 Dr. William Chavez , Nurse Practitioner Active S tart: July 28, 2025 Dr. Jonel Moya MD Nurse Practitioner Active Start: July 28, 2025 Dr. Lisa Willis , Nurse Practitioner Active S tart: July 28, 2025 Dr. Nima Yusuf MD Nurse Practitioner Active Start: July 28, 2025 Dr. Fernando Elaine MD Nurse Practitioner Active Start: July 28, 2025 Dr. Lowell Keating MD Nurse Practitioner Active Start: July 28, 2025 Dr. Jami Berrios MD Nurse Practitioner Active Start: July 28, 2025 Dr. Dayton Stock MD Nurse Practitioner Active S tart: July 28, 2025 Dr. Angel Fountain MD Nurse Practitioner Active St art: July 28, 2025 Dr. Barry Lo MD Nurse Practitioner Active Start: July 28, 2025 Dr. Austin Marie MD Nurse Practitioner Active S tart: July 28, 2025 Dr. Amanda Smith MD Nurse Practitioner Active Start: July 28, 2025 Dr. Bienvenido Gil MD Nurse Practitioner Active Start: July 28, 2025 Dr. Willis Vogel , DO Nurse Practitioner Active Start: July 28, 2025 Dr. Zeb Chavez MD Nurse Practitioner Active St art: July 28, 2025 Dr. Marcy Anton MD Nurse Practitioner Active Start: July 28, 2025 Dr. Catherine Radford MD Nurse Practitioner Active Start: July 28, 2025 Dr. Paulina Orlando , DO Nurse Practitioner Active Start: July 28, 2025 Dr. Benson Neff MD Nurse Practitioner Active Start: July 28, 2025 Dr. Deandre Nevarez MD Nurse Practitioner Active Start: July 28, 2025 Dr. Levon Cooper MD Nurse Practitioner Active Start: July 28, 2025 Dr. Pedro Mcmahon , DO Nurse Practitioner Active Start: July 28, 2025 Dr. Mirna Lao MD Nurse Practitioner Active St art: July 28, 2025 Dr. Yoan Anthony MD Nurse Practitioner Active Start: July 28, 2025 Dr. Jonathan Velez MD Nurse Practitioner Active Start: July 28, 2025 Dr. Anthony Odonnell , DO Nurse Practitioner Active Start: July 28, 2025 Dr. Estuardo Alvarez MD Nurse Practitioner Active Start: July 28, 2025 Dr. Devendra Green MD Nurse Practitioner Active Start: July 28, 2025 Dr. Georges Duque MD Nurse Practitioner Active Start: July 28, 2025 Dr. Jonel Lorenzo MD Referring Provider Active Start: July 28, 2025 Dr. Jonel Lorenzo MD Nurse Practitioner Active Start: July 28, 2025 Dr. Ying Jay , DO Nurse Practitioner Active S tart: July 28, 2025 Team Status: Active Member Role/Relationship Status Dates Dr. Dulce Maria Raymond MD Emergency Departmen t Physician Active Start: July 28, 2025 TAYLOR TAYLOR , NANCY-C Primary care physician Active Start: July 28, 2025 Dr. Antoni Argueta , DO Admitting physician Activ e Start: July 28, 2025 Dr. Antoni Argueta , DO Nurse Practitioner Active Start: July 28, 2025 Dr. Bulmaro Gandara MD Nurse Practitioner Active Start: July 28, 2025 Dr. Kamron Nguyen , DO Attending physician Active Start: July 28, 2025 Dr. Kamron Nguyen , DO Nurse Practitioner Active Start: July 28, 2025 Doris Jeffries NP-C Nurse Practitioner Active S tart: July 28, 2025 Karlee Rodriguez NP-C Nurse Practitioner Active Start: July 28, 2025 GENEVA Stock Nurse Practitioner Active Start: July 28, 2025 Dr. Dany Adamson MD Nurse Practitioner Active Start: July 28, 2025 Dr. Ryan Conway MD Nurse Practitioner Active Sta rt: July 28, 2025 Dr. Chema Caballero MD Nurse Practitioner Active Start: July 28, 2025 Dr. William Chavez , Nurse Practitioner Active S tart: July 28, 2025 Dr. Jonel Moya MD Nurse Practitioner Active Start: July 28, 2025 Dr. Lisa Willis , DO Nurse Practitioner Active S tart: July 28, 2025 Dr. Nima Yusuf MD Nurse Practitioner Active Start: July 28, 2025 Dr. Fernando Elaine MD Nurse Practitioner Active Start: July 28, 2025 Dr. Lowell Keating MD Nurse Practitioner Active Start: July 28, 2025 Dr. Jami Berrios MD Nurse Practitioner Active Start: July 28, 2025 Dr. Dayton Stock MD Nurse Practitioner Active S tart: July 28, 2025 Dr. Angel Fountain MD Nurse Practitioner Active St art: July 28, 2025 Dr. Barry Lo MD Nurse Practitioner Active Start: July 28, 2025 Dr. Austin Marie MD Nurse Practitioner Active S tart: July 28, 2025 Dr. Amanda Smith MD Nurse Practitioner Active Start: July 28, 2025 Dr. Bienvenido Gil MD Nurse Practitioner Active Start: July 28, 2025 Dr. Willis Vogel , DO Nurse Practitioner Active Start: July 28, 2025 Dr. Zeb Chavez MD Nurse Practitioner Active St art: July 28, 2025 Dr. Marcy Anton MD Nurse Practitioner Active Start: July 28, 2025 Dr. Catherine Radford MD Nurse Practitioner Active Start: July 28, 2025 Dr. Paulina Orlando , DO Nurse Practitioner Active Start: July 28, 2025 Dr. Benson Neff MD Nurse Practitioner Active Start: July 28, 2025 Dr. Deandre Nevarez MD Nurse Practitioner Active Start: July 28, 2025 Dr. Levon Cooper MD Nurse Practitioner Active Start: July 28, 2025 Dr. Pedro Mcmahon , Nurse Practitioner Active Start: July 28, 2025 Dr. Mirna Lao MD Nurse Practitioner Active St art: July 28, 2025 Dr. Yoan Anthony MD Nurse Practitioner Active Start: July 28, 2025 Dr. Jonathan Velez MD Nurse Practitioner Active Start: July 28, 2025 Dr. Anthony Odonnell , Nurse Practitioner Active Start: July 28, 2025 Dr. Estuardo Alvarez MD Nurse Practitioner Active Start: July 28, 2025 Dr. Devendra Green MD Nurse Practitioner Active Start: July 28, 2025 Dr. Georges Duque MD Nurse Practitioner Active Start: July 28, 2025 Dr. Jonel Lorenzo MD Nurse Practitioner Active Start: July 28, 2025 Dr. Ying Jay , Nurse Practitioner Active S tart: July 28, 2025 Team Status: Active Member Role/Relationship Status Dates Dr. Dulce Maria Raymond MD Emergency Departmen t Physician Active Start: July 29, 2025 TAYLOR TAYLOR , NANCY-C Primary care physician Active Start: July 29, 2025 Dr. Antoni Argueta , DO Admitting physician Activ e Start: July 29, 2025 Dr. Antoni Argueta , DO Nurse Practitioner Active Start: July 29, 2025 Dr. Bulmaro Gandara MD Nurse Practitioner Active Start: July 29, 2025 Dr. Kamron Nguyen , DO Nurse Practitioner Active Start: July 29, 2025 Doris Jeffries , LOOP SEWER-C Nurse Practitioner Active S tart: July 29, 2025 Karlee Rodriguez , LOOP SEWER-C Nurse Practitioner Active Start: July 29, 2025 GENEVA Stock Nurse Practitioner Active Start: July 29, 2025 Dr. Dany Adamson MD Nurse Practitioner Active Start: July 29, 2025 Dr. Ryan Conway MD Nurse Practitioner Active Sta rt: July 29, 2025 Dr. Chema Caballero MD Nurse Practitioner Active Start: July 29, 2025 Dr. William Chavez , Nurse Practitioner Active S tart: July 29, 2025 Dr. Jonel Moya MD Nurse Practitioner Active Start: July 29, 2025 Dr. Lisa Willis , DO Nurse Practitioner Active S tart: July 29, 2025 Dr. Nima Yusuf MD Nurse Practitioner Active Start: July 29, 2025 Dr. Fernando Elaine MD Nurse Practitioner Active Start: July 29, 2025 Dr. Lowell Keating MD Nurse Practitioner Active Start: July 29, 2025 Dr. Jami Berrios MD Nurse Practitioner Active Start: July 29, 2025 Dr. Dayton Stock MD Nurse Practitioner Active S tart: July 29, 2025 Dr. Angel Fountain MD Nurse Practitioner Active St art: July 29, 2025 Dr. Barry Lo MD Nurse Practitioner Active Start: July 29, 2025 Dr. Austin Marie MD Nurse Practitioner Active S tart: July 29, 2025 Dr. Amanda Smith MD Nurse Practitioner Active Start: July 29, 2025 Dr. Bienvenido Gil MD Nurse Practitioner Active Start: July 29, 2025 Dr. Willis Vogel , Nurse Practitioner Active Start: July 29, 2025 Dr. Zeb Chavez MD Nurse Practitioner Active St art: July 29, 2025 Dr. Marcy Anton MD Nurse Practitioner Active Start: July 29, 2025 Dr. Catherine Radford MD Nurse Practitioner Active Start: July 29, 2025 Dr. Paulina Orlando , DO Nurse Practitioner Active Start: July 29, 2025 Dr. Benson Neff MD Nurse Practitioner Active Start: July 29, 2025 Dr. Deandre Nevarez MD Nurse Practitioner Active Start: July 29, 2025 Dr. Levon Cooper MD Nurse Practitioner Active Start: July 29, 2025 Dr. Pedro Mcmahon , DO Nurse Practitioner Active Start: July 29, 2025 Dr. Mirna Lao MD Nurse Practitioner Active St art: July 29, 2025 Dr. Yoan Anthony MD Nurse Practitioner Active Start: July 29, 2025 Dr. Jonathan Velez MD Nurse Practitioner Active Start: July 29, 2025 Dr. Anthony Odonnell , Nurse Practitioner Active Start: July 29, 2025 Dr. Estuardo Alvarez MD Nurse Practitioner Active Start: July 29, 2025 Dr. Devendra Green MD Nurse Practitioner Active Start: July 29, 2025 Dr. Georges Duque MD Nurse Practitioner Active Start: July 29, 2025 Dr. Jonel Lorenzo MD Attending physician Active Start: July 29, 2025 Dr. Jonel Lorenzo MD Nurse Practitioner Active Start: July 29, 2025 Dr. Ying Jya DO Nurse Practitioner Active S tart: July 29, 2025 Team Status: Active Member Role/Relationship Status Dates Dr. Dulce Maria Raymond MD Emergency Departmen t Physician Active Start: July 29, 2025 TAYLOR TAYLOR NP-C Primary care physician Active Start: July 29, 2025 Dr. Antoni Argueta DO Admitting physician Activ e Start: July 29, 2025 Dr. Antoni Argueta , Nurse Practitioner Active Start: July 29, 2025 Dr. Bulmaro Gandara MD Nurse Practitioner Active Start: July 29, 2025 Dr. Kamron Nguyen , Nurse Practitioner Active Start: July 29, 2025 LILI Roque Nurse Practitioner Active S tart: July 29, 2025 Karlee Michael , LOOP SEWER-C Nurse Practitioner Active Start: July 29, 2025 GENEVA Stock Nurse Practitioner Active Start: July 29, 2025 Dr. Dany Adamson MD Nurse Practitioner Active Start: July 29, 2025 Dr. Ryan Conway MD Nurse Practitioner Active Sta rt: July 29, 2025 Dr. Chema Caballero MD Nurse Practitioner Active Start: July 29, 2025 Dr. William Chavez , DO Attending physician Active Start: July 29, 2025 Dr. William Chavez , Nurse Practitioner Active S tart: July 29, 2025 Dr. Jonel Moya MD Nurse Practitioner Active Start: July 29, 2025 Dr. Lisa Willis , Nurse Practitioner Active S tart: July 29, 2025 Dr. Nima Yusuf MD Nurse Practitioner Active Start: July 29, 2025 Dr. Fernando Elaine MD Nurse Practitioner Active Start: July 29, 2025 Dr. Lowell Keating MD Nurse Practitioner Active Start: July 29, 2025 Dr. Jami Berrios MD Nurse Practitioner Active Start: July 29, 2025 Dr. Dayton Stock MD Nurse Practitioner Active S tart: July 29, 2025 Dr. Angel Fountain MD Nurse Practitioner Active St art: July 29, 2025 Dr. Barry Lo MD Nurse Practitioner Active Start: July 29, 2025 Dr. Austin Marie MD Nurse Practitioner Active S tart: July 29, 2025 Dr. Amanda Smith MD Nurse Practitioner Active Start: July 29, 2025 Dr. Bienvenido Gil MD Nurse Practitioner Active Start: July 29, 2025 Dr. Willis Vogel DO Nurse Practitioner Active Start: July 29, 2025 Dr. Zeb Chavez MD Nurse Practitioner Active St art: July 29, 2025 Dr. Marcy Anton MD Nurse Practitioner Active Start: July 29, 2025 Dr. Catherine Radford MD Nurse Practitioner Active Start: July 29, 2025 Dr. Paulina Orlando , Nurse Practitioner Active Start: July 29, 2025 Dr. Benson Neff MD Nurse Practitioner Active Start: July 29, 2025 Dr. Deandre Nevarez MD Nurse Practitioner Active Start: July 29, 2025 Dr. Levon Cooper MD Nurse Practitioner Active Start: July 29, 2025 Dr. Pedro Mcmahon , Nurse Practitioner Active Start: July 29, 2025 Dr. iMrna Lao MD Nurse Practitioner Active St art: July 29, 2025 Dr. Yoan Anthony MD Nurse Practitioner Active Start: July 29, 2025 Dr. Jonathan Velez MD Nurse Practitioner Active Start: July 29, 2025 Dr. Anthony Odonnell , Nurse Practitioner Active Start: July 29, 2025 Dr. Estuardo Alvarez MD Nurse Practitioner Active Start: July 29, 2025 Dr. Devendra Green MD Nurse Practitioner Active Start: July 29, 2025 Dr. Georges Duque MD Nurse Practitioner Active Start: July 29, 2025 Dr. Jonel Lorenzo MD Referring Provider Active Start: July 29, 2025 Dr. Jonel Lorenzo MD Nurse Practitioner Active Start: July 29, 2025 Dr. Yign Jay DO Nurse Practitioner Active S tart: July 29, 2025 Team Status: Active Member Role/Relationship Status Dates TAYLOR TAYLOR NP-Eddie Primary care physician Active Start: July 29, 2025 Dr. Kamron Nguyen DO Attending physician Active Start: July 29, 2025 Team Status: Active Member Role/Relationship Status Dates Dr. Dulce Maria Raymond MD Emergency Departmen t Physician Active Start: July 30, 2025 LILI STOREY Primary care physician Active Start: July 30, 2025 Dr. Antoni Argueta DO Admitting physician Active Start: July 30, 2025 Dr. Antoni Argueta DO Nurse Practitioner Active Start: July 30, 2025 Dr. Bulmaro Gandara MD Nurse Practitioner Active Start: July 30, 2025 Dr. Kamron Nguyen DO Nurse Practitioner Active Start: July 30, 2025 LILI Roque Nurse Practitioner Active S tart: July 30, 2025 Karlee Rodriguez NP-C Nurse Practitioner Active Start: July 30, 2025 GENEVA Stock Nurse Practitioner Active Start: July 30, 2025 Dr. Ying Jay DO Nurse Practitioner Active S tart: July 30, 2025 Dr. Gena Porter MD Attending physician Active Start: July 30, 2025 Dr. Gena Porter MD Nurse Practitioner Active Start: July 30, 2025 Dr. Jonel Lorenzo MD Nurse Practitioner Active Start: July 30, 2025 Team Status: Active Member Role/Relationship Status Dates Dr. Dulce Maria Raymond MD Emergency [facility] t Physician Active Start: July 31, 2025 TAYLOR TAYLOR NP-C Primary care physician Active Start: July 31, 2025 Dr. Antoni Argueta DO Admitting physician Active Start: July 31, 2025 Dr. Antoni Argueta DO Nurse Practitioner Active Start: July 31, 2025 Dr. Bulmaro Gandara MD Nurse Practitioner Active Start: July 31, 2025 Dr. Kamron Nguyen DO Nurse Practitioner Active Start: July 31, 2025 LILI Roque Nurse Practitioner Active S tart: July 31, 2025 LILI Brito Nurse Practitioner Active Start: July 31, 2025 GENEVA Stock Nurse Practitioner Active Start: July 31, 2025 Dr. Ying Jay DO Nurse Practitioner Active S tart: July 31, 2025 Dr. Gena Porter MD Attending physician Active Start: July 31, 2025 Dr. Gena Porter MD Nurse Practitioner Active Start: July 31, 2025 Dr. Jonel Lorenzo MD Nurse Practitioner Active Start: July 31, 2025 Team Status: Active Member Role/Relationship Status Dates Dr. Dulce Maria Raymond MD Emergency [facility] t Physician Active Start: August 01, 2025 TAYLOR TAYLOR NP-C Primary care physician Active Start: August 01, 2025 Dr. Antoni Argueta DO Admitting physician Active Start: August 01, 2025 Dr. Antoni Argueta DO Attending physician Active Start: August 01, 2025 Dr. Antoni Argueta DO Nurse Practitioner Active Start: August 01, 2025 Dr. Bulmaro Gandara MD Nurse Practitioner Active Start: August 01, 2025 Dr. Kamron Nguyen DO Nurse Practitioner Active Start: August 01, 2025 LILI Roque Nurse Practitioner Active S tart: August 01, 2025 MEJIA BritoC Nurse Practitioner Active Start: August 01, 2025 GENEVA Stock Nurse Practitioner Active Start: August 01, 2025 Dr. Ying Jay DO Nurse Practitioner Active S tart: August 01, 2025 Dr. Jonel Lorenzo MD Nurse Practitioner Active Start: August 01, 2025 Dr. Gena Porter MD Nurse Practitioner Active Start: August 01, 2025 Team Status: Active Member Role/Relationship Status Dates Dr. Dul[facility] Active Start: August 02, 2025 TAYLOR TAYLOR NP-C Primary care physician Active Start: August 02, 2025 Dr. Antoni Argueta DO Admitting physician Active Start: August 02, 2025 Dr. Antoni Argueta DO Attending physician Active Start: August 02, 2025 Dr. Antoni Argueta DO Nurse Practitioner Active Start: August 02, 2025 Dr. Bulmaro Gandara MD Nurse Practitioner Active Start: August 02, 2025 Dr. Kamron Nguyen DO Nurse Practitioner Active Start: August 02, 2025 LILI Roque Nurse Practitioner Active S tart: August 02, 2025 LILI Brito Nurse Practitioner Active Start: August 02, 2025 GENEVA Stock Nurse Practitioner Active Start: August 02, 2025 Dr. Ying Jay DO Nurse Practitioner Active S tart: August 02, 2025 Dr. Jonel Lorenzo MD Nurse Practitioner Active Start: August 02, 2025 Dr. Gena Porter MD Nurse Practitioner Active Start: August 02, 2025 Team Status: Active Member Role/Relationship Status Dates Dr. Dulce Maria Raymond [facility] Active Start: August 03, 2025 TAYLOR TAYLOR NP-C Primary care physician Active Start: August 03, 2025 Dr. Antoni Argueta DO Admitting physician Active Start: August 03, 2025 Dr. Antoni Argueta DO Nurse Practitioner Active Start: August 03, 2025 Dr. Bulmaro Gandara MD Nurse Practitioner Active Start: August 03, 2025 Dr. Kamron Nguyen DO Nurse Practitioner Active Start: August 03, 2025 LILI Roque Nurse Practitioner Active S tart: August 03, 2025 Karlee Michael , LOOP SEWER-C Attending physician Active Start: August 03, 2025 Karlee Rodriguez NP-C Nurse Practitioner Active Start: August 03, 2025 GENEVA Stock Nurse Practitioner Active Start: August 03, 2025 Dr. Ying Jay , DO Nurse Practitioner Active S tart: August 03, 2025 Dr. Jonel Lorenzo MD Nurse Practitioner Active Start: August 03, 2025 Dr. Gena Porter MD Nurse Practitioner Active Start: August 03, 2025 Team Status: Active Member Role/Relationship Status Dates Dr. Dulce [facility] Active Start: August 03, 2025 TAYLOR TAYLOR LOOP [employer]WER-C Primary care physician Active Start: August 03, 2025 Dr. Antoni Argueta , DO Admitting physician Active Start: August 03, 2025 Dr. Antoni Argueta , DO Attending physician Active Start: August 03, 2025 Dr. Antoni Argueta , DO Nurse Practitioner Active Start: August 03, 2025 Dr. Bulmaro Gandara MD Nurse Practitioner Active Start: August 03, 2025 Dr. Kamron Nguyen , DO Nurse Practitioner Active Start: August 03, 2025 MEJIA RoqueC Nurse Practitioner Active S tart: August 03, 2025 Karlee Rodriguez NP-C Nurse Practitioner Active Start: August 03, 2025 GENEVA Stock Nurse Practitioner Active Start: August 03, 2025 Dr. Ying Jay , Nurse Practitioner Active S tart: August 03, 2025 Dr. Jonel Lorenzo MD Nurse Practitioner Active Start: August 03, 2025 Dr. Gena Porter MD Nurse Practitioner Active Start: August 03, 2025 Team Status: Active Member Role/Relationship Status Dates Dr. Dulce Maria Raymond MD Emergency [facility] t Physician Active Start: August 04, 2025 TAYLOR TAYLOR LO[employer]WER-C Primary care physician Active Start: August 04, 2025 Dr. Antoni Argueta , Admitting physician Active Start: August 04, 2025 Dr. Antoni Argueta DO Attending physician Active Start: August 04, 2025 Dr. Antoni Argueta , DO Nurse Practitioner Active Start: August 04, 2025 Dr. Bulmaro Gandara MD Nurse Practitioner Active Start: August 04, 2025 Dr. Kamron Nguyen DO Nurse Practitioner Active Start: August 04, 2025 LILI Roque Nurse Practitioner Active S tart: August 04, 2025 LILI Brito Nurse Practitioner Active Start: August 04, 2025 GENEVA Stock Nurse Practitioner Active Start: August 04, 2025 Dr. Ying Jay DO Nurse Practitioner Active S tart: August 04, 2025 Dr. Jonel Lorenzo MD Nurse Practitioner Active Start: August 04, 2025 Dr. Gena Porter MD Nurse Practitioner Active Start: August 04, 2025 Team Status: Active Member Role/Relationship Status Dates Dr. Dulce Maria Raymond MD Emergency Departmen t Physician Active Start: August 05, 2025 LILI STOREY Primary care physician Active Start: August 05, 2025 Dr. Antoni Argueta DO Admitting physician Active Start: August 05, 2025 Dr. Antoni Argueta DO Attending physician Active Start: August 05, 2025 Dr. Antoni Argueta DO Nurse Practitioner Active Start: August 05, 2025 Dr. Bulmaro Gandara MD Nurse Practitioner Active Start: August 05, 2025 Dr. Kamron Nguyen DO Nurse Practitioner Active Start: August 05, 2025 LILI Roque Nurse Practitioner Active S tart: August 05, 2025 LILI Brito Nurse Practitioner Active Start: August 05, 2025 GENEVA Stock Nurse Practitioner Active Start: August 05, 2025 Dr. Ying Jay DO Nurse Practitioner Active S tart: August 05, 2025 Dr. Jonel Lorenzo MD Nurse Practitioner Active Start: August 05, 2025 Dr. Gena Porter MD Nurse Practitioner Active Start: August 05, 2025 FOR RECORDS PERTAINING TO PATIENTS WHO ARE [...] BE BASED ON THE PRIMARY CLINICAL RECORDS. [employer] [facility]. provides no warranty or guarantee of the accuracy or completeness of information in this document.
--- NOTE | 2025-08-23 01:39 | EX.ED.DYSGE1 ---
HPI History of Present Illness Chief Complaint: Shortness of Breath Informant: patient and SNF Narrative Narrative: Patient is a 80-year-old female with past medical history of COPD chronic kidney disease congestive heart failure hypertension hyperlipidemia and paroxysmal atrial fibrillation currently on Eliquis. Patient wears 4 L nasal cannula oxygen 05/05 secondary to her COPD. [facility] to the [facility] she had a bout today where her pulse ox dropped into the 60s and they also reports she has been having to have her oxygen level increased from her baseline of 4 with minimal improvement to her oxygen level. Therefore with the worsening pulse ox with minimal improvement with increase in the oxygen liters she was sent to the ER for evaluation. The patient reports feeling "congested" but overall states she feels at her baseline. [facility] Medical History Paroxysmal atrial fibrillation with RVR Stroke Gastroesophageal reflux disease Wears glasses Wears dentures Diabetes Walker as ambulation aid Arthritis Hepatitis High cholesterol Easy bruising Back pain Syncope Dietary restriction History of hiatal hernia Gastric reflux On home oxygen therapy Shortness of breath on exertion Leg cramps History of pain when walking History of edema History of irregular heartbeat CKD (chronic kidney disease), stage IV Chronic hypoxic respiratory failure, on home oxygen therapy Anxiety and depression Chronic obstructive pulmonary disease Iron deficiency anemia Hyperlipidemia Diabetes mellitus Former smoker Stroke/cerebrovascular accident Hypertension Emphysema of lung CKD stage 4 due to type 1 diabetes mellitus Home Medications Medication Instructions Recorded Last Taken Type cyanocobalamin (vitamin B-12) 1,000 mg PO DAILY supplement 12/27/16 07/28/23 History 1,000 mcg tablet (Vitamin B-12) lovastatin 40 mg tablet 40 mg PO QHS cholesterol 12/27/16 07/27/23 History montelukast 10 mg tablet 10 mg PO DAILY allergies 12/27/16 07/28/23 History trazodone 150 mg tablet 150 mg PO QHS insomnia 12/27/16 07/27/23 History albuterol sulfate 90 mcg/actuation 1 - 2 puff inhalation Q4H PRN PRN 12/30/16 01/19/20 Rx aerosol inhaler (Ventolin HFA) Sob &/Or Wheezing ##1 pioglitazone 30 mg tablet 30 mg PO DAILY@0800 diabetes 01/26/22 07/28/23 History aripiprazole 10 mg tablet 10 mg PO DAILY mood 02/29/24 Unknown History esomeprazole magnesium 40 mg 40 mg PO DAILY acid reflux 02/29/24 Unknown History capsule,delayed release losartan 50 mg tablet 50 mg PO DAILY #30 tabs 03/03/24 Unknown Rx cholecalciferol (vitamin D3) 125 125 mcg PO DAILY supplement 07/23/25 Unknown History mcg (5,000 unit) capsule IV with Additives 40 mls/hr GT 08/05/25 Unknown Rx amiodarone 200 mg tablet 200 mg G-tube BID 30 days #60 tabs 08/05/25 Unknown Rx apixaban 5 mg tablet (Eliquis) 5 mg G-tube BID 30 days #60 tabs 08/05/25 Unknown Rx metoprolol tartrate 50 mg tablet 50 mg G-tube BID 30 days #60 tabs 08/05/25 Unknown Rx acetaminophen 325 mg capsule 650 mg feeding tube Q6H PRN pain 08/19/25 Unknown History bupropion HCl 100 mg tablet 100 mg G-tube BID 08/19/25 Unknown History ipratropium bromide 17 2 puff inhalation 4X/DAY 08/19/25 Unknown History mcg/actuation HFA aerosol inhaler (Atrovent HFA) sodium chloride 1,000 mg soluble 1,000 mg feeding tube BID 08/19/25 Unknown History tablet BiPap See Rx Instructions .Route 08/23/25 Unknown Rx .COMPLEX #1 device ferrous sulfate 325 mg (65 mg 325 mg PO BID 08/23/25 Unknown History iron) tablet furosemide 20 mg tablet (Lasix) 20 mg PO QODAY 30 days #15 tabs 08/23/25 Unknown Rx insulin glargine 100 unit/mL 5 unit subcut DAILY 08/23/25 Unknown History subcutaneous solution (Lantus U-100 Insulin) insulin lispro 100 unit/mL 1 sliding scale dose subcut Q6H 08/23/25 Unknown History subcutaneous half-unit pen Allergy/AdvReac Type Severity Reaction Status Date / Time No Known Allergies Allergy Verified 08/23/25 00:25 Family History Mother Diabetes Heart disease Hypertension Father Diabetes Heart disease Hypertension Surgical History History of ERCP Hx laparoscopic cholecystectomy Status post open reduction with internal fixation (ORIF) of fracture of ankle Social History household members: spouse Smoking Status: Former smoker how long ago did patient quit smoking: Smoked 2 ppd until ~ 10 years ago since teen until quit. alcohol intake: never substance use type: does not use ROS ROS ED Constitutional Constitutional ED: Denies chills or fever(s) Eyes Eyes: Denies change in vision ENT ENT ED: Reports rhinorrhea Cardiovascular Cardiovascular: Denies chest pain, palpitations or racing heartbeat Respiratory/Chest Respiratory/Chest: Denies cough or dyspnea Gastrointestinal Gastrointestinal: Denies abdominal pain, diarrhea, nausea or vomiting Genitourinary Genitourinary ED: Denies dysuria Musculoskeletal Musculoskeletal: Denies back pain or myalgias Integumentary Denies rash Neurologic Neurologic: Denies headache(s) Hematologic/Lymphatic Hematologic/Lymphatic: Reports easy bleeding and easy bruising Allergic/Immunologic Allergic/Immunologic ED: Denies mouth swelling or tongue swelling EXAM Physical Exam Const Vital Signs: 08/23/25 00:25 08/23/25 00:25 08/23/25 00:30 Temperature 97.6 F L 97.6 F L Temperature Source Oral Oral Pulse Rate 79 80 Respiratory Rate 20 H 22 H Respiratory Effort Respiratory Depth Respiratory Pattern Blood Pressure 153/82 H 153/82 H Blood Pressure Mean 105 105 Pulse Ox 80 92 87 Oxygen Delivery Method Room Air Nasal Cannula Nasal Cannula Oxygen Flow Rate (L/min) 6 6 08/23/25 00:39 08/23/25 00:39 08/23/25 01:25 Temperature Temperature Source Pulse Rate 80 Respiratory Rate 18 Respiratory Effort Short of Breath Labored Respiratory Depth Shallow Respiratory Pattern Tachypnea Blood Pressure 173/78 H Blood Pressure Mean 109 Pulse Ox 96 95 Oxygen Delivery Method High Flow High Flow Nasal Cannula Oxygen Flow Rate (L/min) 6 6 8 08/23/25 01:30 08/23/25 01:51 08/23/25 02:00 Temperature 97.6 F L 97.9 F Temperature Source Oral Oral Pulse Rate 79 79 82 Respiratory Rate 18 21 H Respiratory Effort Respiratory Depth Respiratory Pattern Blood Pressure 173/78 H 173/78 H 169/77 H Blood Pressure Mean 109 107 Pulse Ox 96 93 Oxygen Delivery Method Nasal Cannula Nasal Cannula Oxygen Flow Rate (L/min) 8 5 08/23/25 03:00 Temperature 98.0 F Temperature Source Oral Pulse Rate 78 Respiratory Rate 18 Respiratory Effort Respiratory Depth Respiratory Pattern Blood Pressure 160/74 H Blood Pressure Mean 102 Pulse Ox 94 Oxygen Delivery Method High Flow Oxygen Flow Rate (L/min) 5 Positive well nourished, well developed and obese General Appearance ED: well developed Nutritional Appearance: obese HEENT Reports dry mucous membranes HEENT Narrative: Normocephalic atraumatic No tongue or lip swelling no oral lesions no airway edema or compromise There is cobblestoning noted in the posterior pharynx consistent with sinus drainage; no secondary findings to suggest infection Nasal mucosa is hyperemic and boggy Mucous membranes are dry and tacky Mouth ED: Yes dry mucous membranes Mouth: dry mucous membranes Eyes PERRL and EOMs intact bilaterally General Eye ED: Negative for scleral icterus Neck supple and no JVD Chest Wall palpation of chest normal Resp Resp Narrative: Patient has mild tachypnea. However no nasal flaring retractions or accessory muscle use Breath sounds are diminished throughout with faint rhonchi and crackles in the bilateral bases left greater than right Cardio regular rate and regular rhythm Rate: other Other Details: Radial and carotid pulses are equal and symmetric GI normal to inspection, nondistended, normoactive bowel sounds, non-tender, non-distended and no masses GI Narrative: PEG tube in place in the mid left upper abdomen. No surrounding soft tissue changes to suggest infection Abdomen is soft nontender nondistended with normal active bowel sounds No voluntary guarding or rigidity or pulsatile mass No fluid wave No peritoneal signs Auscultation: normoactive bowel sounds Palpation: soft Extremity Extremity Narrative: +1 pitting edema to the bilateral lower extremities that is equal and symmetric Negative Homans' sign bilaterally Neuro oriented x3 and CN's II-XII intact bilaterally Sensorium / Orientation: alert Psych mental status grossly normal Skin no rashes or lesions noted General Skin Exam: Negative for jaundice MDM MDM MDM Narrative Medical decision making narrative: Patient arrived to the ER mildly hypertensive but has a past medical history of this. Breathing rate was slightly fast but otherwise she was in no acute distress and her pulse ox was in the mid 90s on 6 L. With patient staying at a [facility] and feeling "stuffy" there is concern that her worsening shortness of breath could be from COVID influenza or RSV so a viral swab was obtained. She also has a history of acute blood loss anemia with concern for this once again a CBC was ordered. Secondary to her chronic kidney disease there is concern for acute on chronic kidney injury so a basic metabolic profile was obtained and a proBNP was ordered based on her history of CHF. Her labs showed chronic anemia at 9.7 but chart review reveals this is near baseline and is most likely about the cause of her shortness of breath. COVID influenza and RSV were negative. Creatinine is at her baseline which is approximately 1.2-1.3 going against acute on chronic kidney injury. Her proBNP has increased from 5000 in July to approximate 30,000 today. Her chest x-ray reveals cardiomegaly with increased pulmonary vascular congestion and left-sided pleural effusion which could also correlate with this value and her increased need for oxygenation. In the ER the patient has been satting in the mid 90s on 5 to 6 L. Review of her chart from the [facility] reveals that she is on multiple medications for her COPD but nothing for her CHF. Therefore the patient was treated with sublingual nitro to reduce preload captopril to reduce afterload and IV Lasix for diuresis. She did have 1 episode in the ER prior to treatment where her pulse ox decreased into the mid to high 60s for a few minutes which would correlate with the report from [facility] but then return to the mid 90s spontaneously. I did discuss the case with the hospitalist Dr. Lopez. He agrees that as the patient is in no acute distress and is only having intermittent bouts of dyspnea and is not on any medication to help control his CHF that this can be treated as an outpatient since she is only requiring a few liters above baseline. Therefore the patient will be placed on Lasix every other day to help control/reduce volume overload. She will also be prescribed BiPAP to wear at night to help prevent fluid reaccumulation. At this time as she is satting in the mid 90s on 5 L which is just slightly above her baseline and she has been given medication to help with diuresis I do not feel the need for further intervention. I also do not believe there is an infection/pneumonia in the left lower lobe and this is all fluid as she does not have a fever or leukocytosis or left shift. Therefore there is no need for antibiotics. The [facility] was informed of our plan of care and states that they can provide both the Lasix and BiPAP and therefore the patient is otherwise safe to be discharged back to the facility History & Record Review Discussion w/independent historian: Patient Additional record(s) reviewed:: Prior outpatient record, Prior ED visit and Prior labs Lab Data Attestation: I reviewed the patient's lab results. Labs: Laboratory Results - last 24 hr 08/23/25 00:34 WBC 10.0 RBC 3.23 L Hgb 9.7 L Hct 31.7 L MCV 98.1 MCH 30.0 MCHC 30.6 L RDW Std Deviation 55.2 H RDW Coeff of Tessa 15.5 H Plt Count 313 MPV 9.7 Immature Gran % (Auto) 2.200 H Neut % (Auto) 77.9 H Lymph % (Auto) 10.3 L [place] % (Auto) 6.6 Eos % (Auto) 2.2 Baso % (Auto) 0.8 Absolute Neuts (auto) 7.8 H Absolute Lymphs (auto) 1.03 Nucleated RBC % 0 Sodium 135 Potassium 4.5 Chloride 94 L Carbon Dioxide 31.8 Anion Gap 9 BUN 51 H Creatinine 1.34 H Estim Creat Clear Calc 38.93 L Est GFR (MDRD) Non-Af 40 L BUN/Creatinine Ratio 38.0 H Glucose 205 H [place]cium 9.1 [place] [address] H Radiography Diagnostic Testing: Clinical Impression(s) from Imaging Studies Chest X-Ray 08/23/25 00:58 IMPRESSION: Significant increase in pulmonary venous congestion. Significant increase in interstitial pulmonary congestion. Increased left pleural effusion. Increased passive atelectatic airspace disease of the left lower lobe. Right PICC line has been removed in the interim. Enlarged cardiac silhouette. Reading Location: [place] [id number] 1 view chest x-ray as interpreted by the emergency medicine physician reveals cardiomegaly with pulmonary vascular congestion and left-sided pleural effusion Management Discussion w/another healthcare provider: Hospitalist Discharge Plan Triage Chief Complaint: Shortness of Breath ED Provider: Austin Huber Dx/Rx/DC Orders Clinical Impression: Congestive heart failure (CHF), Pleural effusion, COPD (chronic obstructive pulmonary disease), Chronic anemia, Hypertension, Hyperlipidemia, Paroxysmal atrial fibrillation, Current use of skilled nursing anticoagulation Instructions: ED Heart Failure, Congestive (CHF) Prescriptions: New furosemide [Lasix] 20 mg tablet 20 mg PO QODAY 30 Days Qty: 15 2RF BiPap See Rx Instructions .ROUTE .COMPLEX Qty: 1 0RF Rx Instructions: BiPAP machine with accompanying hose and mask. Patient is to wear BiPAP at night at a value of 12/6 and 30% FiO2. Patient also can use the machine during the day as needed shortness of breath. No Action lovastatin 40 MG tablet 40 mg PO QHS Patient Comments: REDUCES CHOLESTEROL cyanocobalamin (vitamin B-12) [Vitamin B-12] 1,000 MCG tablet 1,000 mg PO DAILY Patient Comments: VITAMIN SUPPLEMENT trazodone 150 MG tablet 150 mg PO QHS Patient Comments: SLEEP montelukast 10 MG tablet 10 mg PO DAILY Patient Comments: ALLERGIES albuterol sulfate [Ventolin HFA] 1 INHALER inhaler 1 - 2 puff inhalation Q4H PRN PRN (Reason: Sob &/Or Wheezing) Qty: 1 0RF pioglitazone 30 MG tablet 30 mg PO DAILY@0800 esomeprazole magnesium 40 mg capsule,delayed release(DR/EC) 40 mg PO DAILY aripiprazole 10 mg tablet 10 mg PO DAILY losartan 50 mg tablet 50 mg PO DAILY Qty: 30 1RF cholecalciferol (vitamin D3) 125 mcg (5,000 unit) capsule 125 mcg PO DAILY amiodarone 200 mg Tablet 200 mg G-tube BID 30 Days Qty: 60 0RF metoprolol tartrate 50 mg Tablet 50 mg G-tube BID 30 Days Qty: 60 0RF Eliquis 5 mg Tablet 5 mg G-tube BID 30 Days Qty: 60 0RF IV with Additives Jevity 1.5 1000 ML 40 mls/hr GT Ordered By: Antoni Argueta DO Last Taken: Unknown sodium chloride 1,000 mg tablet,soluble 1,000 mg feeding tube BID acetaminophen 325 mg capsule 650 mg feeding tube Q6H PRN (Reason: pain) Atrovent HFA 17 mcg/actuation HFA aerosol inhaler 2 puff INHALATION 4X/DAY bupropion HCl 100 mg Tablet 100 mg G-tube BID ferrous sulfate 325 mg (65 mg iron) tablet 325 mg PO BID insulin glargine [Lantus U-100 Insulin] 100 unit/mL solution 5 unit subcut DAILY insulin lispro 100 unit/mL insulin pen, half-unit 1 sliding scale dose subcut Q6H Primary Care Provider: Jyotsna Blackwell Referrals: Jyotsna Blackwell MD [Primary Care Provider, Internal Medicine] Activity Restrictions/Additional Instructions: The patient's workup today revealed signs of worsening heart failure. Going to her med list at the nursing facility she is not on a diuretic nor does she have access to BiPAP. Despite the worsening CHF she is not in any respiratory distress and in the ER we are keeping her oxygen level above 90% at just 5 L of nasal cannula oxygen. Therefore I feel with the medication given in the ER which will provide diuresis the continuing diuretic prescribed and the fact she will not have access to BiPAP to wear at night that will force fluid out of her lungs there is no need to admit her to the hospital as she can receive essentially the same treatment at your facility. However if symptoms worsen or fail to respond to the provided treatment please return to the ER for repeat evaluation Print Language: [place] Disposition Disposition: Home, Self Care
[2025-08-23 01:40] LABS: BUN 51 mg/dL (4-19)
[2025-08-23] MEDS: Nitroglycerin SL (ED/IMG/CATH) 0.4 MG TABLET SL (01:51)
[2025-08-23 02:15] LABS: Anion Gap 9 (5-15); BUN/Creat Ratio 38.0 RATIO (10-20); Calcium,Total 9.1 mg/dL (7.6-11.0); Carbon Dioxide 31.8 mmol/L (21.0-32.0); Chloride 94 mmol/L (98-108); Estimated Creatinine Clearance 38.93 ml/min (50-250); Glucose 205 mg/dL (70-99); Potassium 4.5 mmol/L (3.3-5.1)
[2025-08-23 02:23] LABS: Pro- Brain NATRIURETIC PEPTIDE 30581 pg/mL (<=1800)
--- NOTE | 2025-08-23 03:15 | ED.RN ---
This RN called report at this time to Daniella, at [facility], to give discharge instructions and patient condition while at [facility]. All questions answered at this time.
== END 2025-08-23 03:43 | disposition home or self-care (01) ==
PROVIDERS: Emergency Provider Emergency Medicine; PCP Internal Medicine; Visit Provider Emergency Medicine
DX: I13.0 Hypertensive heart and chronic kidney disease with heart failure and stage 1 through stage 4 chronic kidney disease, or unspecified chronic kidney disease (principal); Z93.1 Gastrostomy status; I50.9 Heart failure, unspecified; J43.9 Emphysema, unspecified; I48.0 Paroxysmal atrial fibrillation; E11.22 Type 2 diabetes mellitus with diabetic chronic kidney disease; Z79.4 Long term (current) use of insulin; E78.5 Hyperlipidemia, unspecified; N18.9 Chronic kidney disease, unspecified; J90 Pleural effusion, not elsewhere classified; E66.9 Obesity, unspecified; Z79.51 Long term (current) use of inhaled steroids; Z79.01 Long term (current) use of anticoagulants; Z79.899 Other long term (current) drug therapy; Z86.73 Personal history of transient ischemic attack (TIA), and cerebral infarction without residual deficits; Z87.891 Personal history of nicotine dependence
CPT/HCPCS: 71045; 80048; 83880; 85025; 87631; 96374; 99285; A4216; J1938

== ENCOUNTER 2025-09-23 13:27 | Inpatient (IN) | payer MEDICARE, SELFPAY ==
[2025-09-23] VITALS (9 sets, daily range): BP systolic 136–173; BP diastolic 60–88; PULSE 64–74; RESP 14–20; TEMP 36.6–37; O2SAT 95–99; BMI 29.1; BMI 28.0
--- NOTE | 2025-09-23 14:21 | EX.ED.DYSGE1 ---
HPI History of Present Illness Chief Complaint: Hypoglycemia Informant: patient and family Onset/Context/Timing Onset: Today Context: Gradual Onset Timing: Continuous Current Severity: Moderate Maximum Severity: Moderate Narrative Narrative: 80-year-old diabetic female history of chronic kidney disease, chronic respiratory failure with COPD on 5 L oxygen and anemia. Today had low blood sugar this morning around 7 AM and was 34 then dropped to 24. They had her eat it went up to 98 and then back down to 70. She denies any recent illness. Had 1 episode of nausea and vomiting today. She has been eating normally she had 3 meals yesterday she did have breakfast this morning. In the last several months she developed pneumonia and was hospitalized and then recovered in our transitional care unit. Prior similar symptoms: Yes Recent Illness/Hospitalization: No PFSH PFSH Medical History Hx of insulin dependent diabetes mellitus Orthopedic hardware present Hardware complicating wound infection Ulcer of left lower extremity with muscle involvement without evidence of necrosis Paroxysmal atrial fibrillation with RVR Stroke Gastroesophageal reflux disease Wears glasses Wears dentures Diabetes Walker as ambulation aid Arthritis Hepatitis High cholesterol Easy bruising Back pain Syncope Dietary restriction History of hiatal hernia Gastric reflux On home oxygen therapy Shortness of breath on exertion Leg cramps History of pain when walking History of edema History of irregular heartbeat CKD (chronic kidney disease), stage IV Chronic hypoxic respiratory failure, on home oxygen therapy Anxiety and depression Chronic obstructive pulmonary disease Iron deficiency anemia Hyperlipidemia Diabetes mellitus Former smoker Stroke/cerebrovascular accident Hypertension Emphysema of lung CKD stage 4 due to type 1 diabetes mellitus Home Medications ?Medication ?Instructions ?Recorded ?Last Taken ?Type cyanocobalamin (vitamin B-12) 1,000 mg PO DAILY supplement 12/27/16 07/28/23 History 1,000 mcg tablet (Vitamin B-12) lovastatin 40 mg tablet 40 mg PO QHS cholesterol 12/27/16 07/27/23 History montelukast 10 mg tablet 10 mg PO DAILY allergies 12/27/16 07/28/23 History trazodone 150 mg tablet 150 mg PO QHS insomnia 12/27/16 07/27/23 History albuterol sulfate 90 mcg/actuation 1 - 2 puff inhalation Q4H PRN PRN 12/30/16 01/19/20 Rx aerosol inhaler (Ventolin HFA) Sob &/Or Wheezing ##1 pioglitazone 30 mg tablet 30 mg PO DAILY@0800 diabetes 01/26/22 07/28/23 History aripiprazole 10 mg tablet 10 mg PO DAILY mood 02/29/24 Unknown History esomeprazole magnesium 40 mg 40 mg PO DAILY acid reflux 02/29/24 Unknown History capsule,delayed release losartan 50 mg tablet 50 mg PO DAILY #30 tabs 03/03/24 Unknown Rx cholecalciferol (vitamin D3) 125 125 mcg PO DAILY supplement 07/23/25 Unknown History mcg (5,000 unit) capsule IV with Additives 40 mls/hr GT 08/05/25 Unknown Rx amiodarone 200 mg tablet 200 mg G-tube BID 30 days #60 tabs 08/05/25 Unknown Rx apixaban 5 mg tablet (Eliquis) 5 mg G-tube BID 30 days #60 tabs 08/05/25 Unknown Rx metoprolol tartrate 50 mg tablet 50 mg G-tube BID 30 days #60 tabs 08/05/25 Unknown Rx acetaminophen 325 mg capsule 650 mg feeding tube Q6H PRN pain 08/19/25 Unknown History bupropion HCl 100 mg tablet 100 mg G-tube BID 08/19/25 Unknown History ipratropium bromide 17 2 puff inhalation 4X/DAY 08/19/25 Unknown History mcg/actuation HFA aerosol inhaler (Atrovent HFA) sodium chloride 1,000 mg soluble 1,000 mg feeding tube BID 08/19/25 Unknown History tablet BiPap See Rx Instructions .Route 08/23/25 Unknown Rx .COMPLEX #1 device ferrous sulfate 325 mg (65 mg 325 mg PO BID 08/23/25 Unknown History iron) tablet furosemide 20 mg tablet (Lasix) 20 mg PO QODAY 30 days #15 tabs 08/23/25 Unknown Rx insulin glargine 100 unit/mL 5 unit subcut DAILY 08/23/25 Unknown History subcutaneous solution (Lantus U-100 Insulin) insulin lispro 100 unit/mL 1 sliding scale dose subcut Q6H 08/23/25 Unknown History subcutaneous half-unit pen aripiprazole 10 mg tablet (Abilify) 10 mg PO DAILY 09/22/25 Unknown History Allergy/AdvReac Type Severity Reaction Status Date / Time No Known Allergies Allergy Verified 09/23/25 13:28 Family History Mother Diabetes Heart disease Hypertension Father Diabetes Heart disease Hypertension Surgical History History of ERCP Hx laparoscopic cholecystectomy Status post open reduction with internal fixation (ORIF) of fracture of ankle Social History household members: spouse Smoking Status: Never smoker how long ago did patient quit smoking: Smoked 2 ppd until ~ 10 years ago since teen until quit. alcohol intake: never substance use type: does not use ROS ROS ED ROS Narrative Low blood sugar. Nausea and vomiting. Constitutional Constitutional ED: Denies chills or fever(s) Eyes Eyes: Denies blurry vision ENT ENT ED: Denies ear pain Cardiovascular Cardiovascular: Denies chest pain Respiratory/Chest Respiratory/Chest: Denies cough or dyspnea Gastrointestinal Gastrointestinal: Reports nausea and vomiting; Denies abdominal pain Genitourinary Genitourinary ED: Denies dysuria or hematuria Musculoskeletal Musculoskeletal: Denies arthralgias or back pain Integumentary Denies abscess or Abrasions Neurologic Neurologic: Denies headache(s) Psychiatric Psychiatric: Denies anxiety or depression Endocrine Endocrinology: Denies cold intolerance Hematologic/Lymphatic Hematologic/Lymphatic: Reports anemia Allergic/Immunologic Allergic/Immunologic ED: Denies mouth swelling, tongue swelling or urticaria EXAM Physical Exam Narrative Exam Narrative: Scenario feels any upright in bed vital signs are stable pulse ox 96% on 4 L she is typically on 4 to 5 L at home. No hypoxia on her oxygen. H EENT exam pupils round react light. Moist mucous memories. Neck nontender. Head no signs of trauma. Lungs clear to auscultation bilaterally. Heart regular rhythm no murmur rate about 65. Chest wall ribs nontender. Abdomen soft nontender. Moving all 4 extremities. Nontender. No deformity. Back nontender. Neurologically she is awake alert. Answering questions following commands. Const Vital Signs: 09/23/25 13:28 09/23/25 14:11 Temperature 98.6 F Temperature Source Oral Pulse Rate 64 Respiratory Rate 20 H Respiratory Effort Normal Non-Labored Respiratory Pattern Normal Blood Pressure 136/66 H Blood Pressure Mean 89 Pulse Ox 96 Oxygen Delivery Method Nasal Cannula Oxygen Flow Rate (L/min) 4 MDM MDM MDM Narrative Medical decision making narrative: Allergies female with with low blood sugar today. Currently is running 102 around 2:00. Screening labs will be obtained to look for cause for her hypoglycemia. She has chronic renal sufficiency. Her potassium was 5.8. She has been that high before. She will be given an aerosol treatment and IV fluids. Repeat exam around 4:42 PM patient is doing well. Resting comfortably in bed. She and I went over all of her test results. We are awaiting the formal UA. To be turned over to the afternoon physician to make final disposition. At this time I think she is okay to go home or I have her eat recheck her blood sugar and awaiting the formal UA. Afternoon physician and make disposition. Patient be fed we will recheck her blood sugar. History & Record Review Discussion w/independent historian: Patient and Family Additional record(s) reviewed:: Prior outpatient record, Prior ED visit and Prior labs Lab Data Attestation: I reviewed the patient's lab results. Lab results narrative: CBC shows a white count 9.2 H&H 11.7 and 30. Platelets 238. Electrolytes show a sodium of 135. Potassium 5.8. BUN and creatinine at 36 and 1.86. Glucose 74. Labs are consistent with prior. She is a chronic anemia and chronic renal insufficiency. UA is pending I will be checked out to the afternoon physician and checked prior to discharge. Labs: Laboratory Results - last 24 hr 09/23/25 09/23/25 13:59 14:28 WBC 9.2 RBC 3.13 L Hgb 9.7 L Hct 30.8 L MCV 98.4 MCH 31.0 MCHC 31.5 L RDW Std Deviation 53.3 H RDW Coeff of Tessa 14.9 H Plt Count 238 MPV 9.1 Immature Gran % (Auto) 0.400 Neut % (Auto) 86.4 H Lymph % (Auto) 7.6 L Overton % (Auto) 4.6 Eos % (Auto) 0.8 Baso % (Auto) 0.2 Absolute Neuts (auto) 8.0 H Absolute Lymphs (auto) 0.70 L Nucleated RBC % 0 Sodium 135 Potassium 5.8 H Chloride 98 Carbon Dioxide 26.0 Anion Gap 11 BUN 36 H Creatinine 1.86 H Est GFR (MDRD) Non-Af 27 L BUN/Creatinine Ratio 19.4 Glucose 74 Calcium 8.1 POC Glucose 102 Radiography Chest X-Ray - ED: 2 View, Read by Radiologist, Heart, Mediastinum, Bony Structures, Chronic Changes, CHF and Left Effusion Diagnostic Testing: Chest x-ray, 2 views, AP and lateral, interpreted by myself and the radiologist. Borderline cardiomegaly. Chronic changes. Left pleural effusion seen prior. Mild CHF. Discharge Plan Triage Chief Complaint: Hypoglycemia ED Provider: Torin Amato Dx/Rx/DC Orders Clinical Impression: Hypoglycemia, History of diabetes mellitus, Chronic kidney disease, Chronic hypoxemic respiratory failure, Chronic anemia Instructions: Hypoglycemia Tx Steps, ED Diabetic Insulin Reaction Prescriptions: No Action lovastatin 40 MG tablet 40 mg PO QHS Patient Comments: REDUCES CHOLESTEROL cyanocobalamin (vitamin B-12) [Vitamin B-12] 1,000 MCG tablet 1,000 mg PO DAILY Patient Comments: VITAMIN SUPPLEMENT trazodone 150 MG tablet 150 mg PO QHS Patient Comments: SLEEP montelukast 10 MG tablet 10 mg PO DAILY Patient Comments: ALLERGIES albuterol sulfate [Ventolin HFA] 1 INHALER inhaler 1 - 2 puff inhalation Q4H PRN PRN (Reason: Sob &/Or Wheezing) Qty: 1 0RF pioglitazone 30 MG tablet 30 mg PO DAILY@0800 esomeprazole magnesium 40 mg capsule,delayed release(DR/EC) 40 mg PO DAILY aripiprazole 10 mg tablet 10 mg PO DAILY losartan 50 mg tablet 50 mg PO DAILY Qty: 30 1RF aripiprazole [Abilify] 10 mg tablet 10 mg PO DAILY cholecalciferol (vitamin D3) 125 mcg (5,000 unit) capsule 125 mcg PO DAILY amiodarone 200 mg Tablet 200 mg G-tube BID 30 Days Qty: 60 0RF metoprolol tartrate 50 mg Tablet 50 mg G-tube BID 30 Days Qty: 60 0RF Eliquis 5 mg Tablet 5 mg G-tube BID 30 Days Qty: 60 0RF IV with Additives Jevity 1.5 1000 ML 40 mls/hr GT Ordered By: Antoni Argueta DO Last Taken: Unknown sodium chloride 1,000 mg tablet,soluble 1,000 mg feeding tube BID acetaminophen 325 mg capsule 650 mg feeding tube Q6H PRN (Reason: pain) Atrovent HFA 17 mcg/actuation HFA aerosol inhaler 2 puff INHALATION 4X/DAY bupropion HCl 100 mg Tablet 100 mg G-tube BID ferrous sulfate 325 mg (65 mg iron) tablet 325 mg PO BID insulin glargine [Lantus U-100 Insulin] 100 unit/mL solution 5 unit subcut DAILY insulin lispro 100 unit/mL insulin pen, half-unit 1 sliding scale dose subcut Q6H furosemide [Lasix] 20 mg tablet 20 mg PO QODAY 30 Days Qty: 15 2RF BiPap See Rx Instructions .ROUTE .COMPLEX Qty: 1 0RF Rx Instructions: BiPAP machine with accompanying hose and mask. Patient is to wear BiPAP at night at a value of 12/6 and 30% FiO2. Patient also can use the machine during the day as needed shortness of breath. Primary Care Provider: TAYLOR TAYLOR Referrals: TAYLOR TAYLOR NP-C [Primary Care Provider, Family Practice] - 3-5 Days Activity Restrictions/Additional Instructions: Follow-up with your primary care provider. Watch your blood sugars very closely. Make sure you check it the night before you go to bed. Better to let it run a little high than low. Especially before you go to bed. Return if feeling worse. Make sure you eat a snack before you go to sleep. Check your blood sugar first thing in the morning. Print Language: Japanese Disposition Disposition: Home, Self Care
[2025-09-23 14:35] LABS: Hematocrit 30.8 % (37-47); Hemoglobin 9.7 g/dL (12.0-15.0); Immature Granulocytes Count 0.040 X10^3/uL (0.0-0.0); Mean Corp Hgb Conc 31.5 g/dL (32-36); Mean Corpuscular Volume 98.4 fL (81-99); Mean Platelet Vol. 9.1 fl (6.2-12.0); NRBC Flagged by Analyzer 0 % (0-5); Platelet Count 238 K/mm3 (150-450); RBC Distribution Width CV 14.9 % (11.6-14.6); RBC Distribution Width SD 53.3 fl (35.1-43.9); Red Blood Count 3.13 M/mm3 (4.2-5.4); White Blood Count 9.2 K/mm3 (4.4-11.0)
[2025-09-23 14:59] LABS: Anion Gap 11 (5-15); BUN 36 mg/dL (4-19); BUN/Creat Ratio 19.4 RATIO (10-20); Calcium,Total 8.1 mg/dL (7.6-11.0); Carbon Dioxide 26.0 mmol/L (21.0-32.0); Chloride 98 mmol/L (98-108); Glucose 74 mg/dL (70-99); Potassium 5.8 mmol/L (3.3-5.1)
[2025-09-23 15:29] LABS: Mucous, Urine 0 SEEN /hpf (<or=2+); Squamous Epithelial Cells - UA 0 SEEN /hpf (5-10)
--- NOTE | 2025-09-23 15:30 | RAD_ITS ---
PROCEDURE: CHEST PA AND LATERAL 09/23/2025 REASON FOR EXAM: COUGH TECHNIQUE: Procedure Code: RADCXR Modality: DX Procedure: CHEST PA AND LATERAL COMPARISON: Portable chest, 08/23/2025. FINDINGS: There is chronic interstitial lung disease. There is cardiomegaly and pulmonary venous hypertension without congestive heart failure. There is a large left pleural effusion. There is left basilar atelectasis. RAD/Chest PA and Lateral IMPRESSION: There is chronic interstitial lung disease. There has been interval improvemen t in the patient's congestive heart failure with a residual left pleural effusion and left basilar atelectasis. Reading Location: [place] [id number]
[2025-09-23 15:34] LABS: Color, Urine Yellow (Yellow); Glucose, Dipstick Normal (Normal); Ketone-Dipstick Negative (Negative); Leukocyte Esterase-Dipstick 100 /ul (Negative); Nitrite-Dipstick Negative (Negative); Occult Blood-Urine 250 /ul (Negative); Protein-Dipstick 30 mg/dl (Negative); Specific Gravity, Urine 1.010 (1.002-1.030); Urine Bilirubin Dipstick Negative (Negative)
[2025-09-23] MEDS: 0.9% Normal Saline (1000mL) 1,000 ML 999 ML IV (16:04)
[2025-09-23 17:11] LABS: Red Blood Cells-Urine 10-25 SEEN /hpf (0-5)
[2025-09-23 18:27] LABS: Glucose 29 mg/dL (70-99)
--- NOTE | 2025-09-23 19:40 | PCM.HP.STD ---
HPI - General General Date of Admission: 09/23/25 Date of Service: 09/23/25 Chief Complaint: Low BS. HPI Narrative The patient is a 80 y/o F w/ PMHx: IDDM, PAF, Hx CVA, HTN, HLD, CKD stage II unclear subtype per GFR trending, Chronic normocytic anemia/iron-deficiency anemia, Anxiety and depression/mood disorder, GERD, YOKO on BiPAP, Chronic COPD with chronic hypoxic respiratory failure 5 L NC, Former tobacco use who initially presented earlier in the day on 09/23/2025 with history of low blood sugars starting at 7 AM dropping to 34 and then 24 prompting her to be given food with improvement up to 98 then back down again to 70 with 1 episode of nausea and emesis on day of presentation reportedly eating all of her normal meals however she has no several months developed pneumonia and was hospitalized and then recovered in the transitional care unit with no reported recent illnesses administered aerosol treatment and IV fluids for her hypokalemia with plan for continued blood sugar trending however blood sugars continue to remain low in the ED. Workup in the ED included T98.6, heart rate 64, BP 136/66, respiratory rate 20, 96% on 5 L nasal cannula with most recent repeat vitals heart rate 72, BP 173/88, respiratory rate 18, 97% on 5 L nasal cannula, CBC with WBC 9.2, hemoglobin 9.7, MCV 98.4, platelet 238 with left shift and lymphopenia, BMP with potassium 5.8, BUN/creatinine 36/1.86, GFR 27, initial glucose 74 with repeat check 29, chest x-ray with chronic interstitial lung disease with improvement from previous overload with residual left pleural effusion left basilar atelectasis, urinalysis noted be cloudy, protein 30, occult blood 250, leukocyte esterase 100, urine RBCs 10-25, urine WC 10-25 with urine bacteria 4+, urine culture pending per ED. In the ED patient was administered 1 L normal saline, calcium gluconate 1 g IV x 1, dextrose amp, DuoNeb therapy and eventually Levaquin 7 and 50 mg p.o. x 1. In the ED just following evaluation patient had onset of loose stools. [facility] Medical History Hx of insulin dependent diabetes mellitus Orthopedic hardware present Hardware complicating wound infection Ulcer of left lower extremity with muscle involvement without evidence of necrosis Paroxysmal atrial fibrillation with RVR Stroke Gastroesophageal reflux disease Wears glasses Wears dentures Diabetes Walker as ambulation aid Arthritis Hepatitis High cholesterol Easy bruising Back pain Syncope Dietary restriction History of hiatal hernia Gastric reflux On home oxygen therapy Shortness of breath on exertion Leg cramps History of pain when walking History of edema History of irregular heartbeat CKD (chronic kidney disease), stage IV Chronic hypoxic respiratory failure, on home oxygen therapy Anxiety and depression Chronic obstructive pulmonary disease Iron deficiency anemia Hyperlipidemia Diabetes mellitus Former smoker Stroke/cerebrovascular accident Hypertension Emphysema of lung CKD stage 4 due to type 1 diabetes mellitus Home Medications ?Medication ?Instructions ?Recorded ?Last Taken ?Type cyanocobalamin (vitamin B-12) 1,000 mg PO DAILY supplement 12/27/16 07/28/23 History 1,000 mcg tablet (Vitamin B-12) lovastatin 40 mg tablet 40 mg PO QHS cholesterol 12/27/16 07/27/23 History montelukast 10 mg tablet 10 mg PO DAILY allergies 12/27/16 07/28/23 History trazodone 150 mg tablet 150 mg PO QHS insomnia 12/27/16 07/27/23 History albuterol sulfate 90 mcg/actuation 1 - 2 puff inhalation Q4H PRN PRN 12/30/16 01/19/20 Rx aerosol inhaler (Ventolin HFA) Sob &/Or Wheezing ##1 pioglitazone 30 mg tablet 30 mg PO DAILY@0800 diabetes 01/26/22 07/28/23 History aripiprazole 10 mg tablet 10 mg PO DAILY mood 02/29/24 Unknown History esomeprazole magnesium 40 mg 40 mg PO DAILY acid reflux 02/29/24 Unknown History capsule,delayed release losartan 50 mg tablet 50 mg PO DAILY #30 tabs 03/03/24 Unknown Rx cholecalciferol (vitamin D3) 125 125 mcg PO DAILY supplement 07/23/25 Unknown History mcg (5,000 unit) capsule IV with Additives 40 mls/hr GT 08/05/25 Unknown Rx amiodarone 200 mg tablet 200 mg G-tube BID 30 days #60 tabs 08/05/25 Unknown Rx apixaban 5 mg tablet (Eliquis) 5 mg G-tube BID 30 days #60 tabs 08/05/25 Unknown Rx metoprolol tartrate 50 mg tablet 50 mg G-tube BID 30 days #60 tabs 08/05/25 Unknown Rx acetaminophen 325 mg capsule 650 mg feeding tube Q6H PRN pain 08/19/25 Unknown History bupropion HCl 100 mg tablet 100 mg G-tube BID 08/19/25 Unknown History ipratropium bromide 17 2 puff inhalation 4X/DAY 08/19/25 Unknown History mcg/actuation HFA aerosol inhaler (Atrovent HFA) sodium chloride 1,000 mg soluble 1,000 mg feeding tube BID 08/19/25 Unknown History tablet BiPap See Rx Instructions .Route 08/23/25 Unknown Rx .COMPLEX #1 device ferrous sulfate 325 mg (65 mg 325 mg PO BID 08/23/25 Unknown History iron) tablet furosemide 20 mg tablet (Lasix) 20 mg PO QODAY 30 days #15 tabs 08/23/25 Unknown Rx insulin glargine 100 unit/mL 5 unit subcut DAILY 08/23/25 Unknown History subcutaneous solution (Lantus U-100 Insulin) insulin lispro 100 unit/mL 1 sliding scale dose subcut Q6H 08/23/25 Unknown History subcutaneous half-unit pen aripiprazole 10 mg tablet (Abilify) 10 mg PO DAILY 09/22/25 Unknown History Allergy/AdvReac Type Severity Reaction Status Date / Time No Known Allergies Allergy Verified 09/23/25 13:28 Family History Mother Diabetes Heart disease Hypertension Father Diabetes Heart disease Hypertension Surgical History History of ERCP Hx laparoscopic cholecystectomy Status post open reduction with internal fixation (ORIF) of fracture of ankle Social History household members: spouse Smoking Status: Never smoker how long ago did patient quit smoking: Smoked 2 ppd until ~ 10 years ago since teen until quit. alcohol intake: never substance use type: does not use ROS ROS Narrative Admission Review of Systems: CONSTITUTIONAL: No weight loss, fever, chills, + weakness or fatigue. HEENT: Eyes: No visual loss, blurred vision, double vision or yellow sclerae. Ears, Nose, Throat: No hearing loss, sneezing, congestion, runny nose or sore throat. SKIN: No rash or itching, lesions except + chronic left lower extremity ulcers/wounds, occasional stage ecchymoses, abrasion. CARDIOVASCULAR: No chest pain, chest pressure or chest discomfort, palpitations, edema, orthopnea, syncopal events. RESPIRATORY: No shortness of breath, cough or sputum, wheezing, hemoptysis. GASTROINTESTINAL: + anorexia, nausea, vomiting, loose stools. No abdominal pain, melena, BRBPR. GENITOURINARY: + Mildly foul-smelling urine/mild increased frequency otherwise no reported dysuria, urgency or retention. NEUROLOGICAL: No headache, dizziness, syncope, paralysis, ataxia, numbness or tingling in the extremities, focal weakness, change in bowel or bladder control, seizure. MUSCULOSKELETAL: + muscle, back pain, joint pain or stiffness. HEMATOLOGIC: + Chronic anemia, easy bleeding/bruising. LYMPHATICS: No enlarged nodes. No history of splenectomy. PSYCHIATRIC: + History of anxiety and depression/mood disorder. ENDOCRINOLOGIC: No reports of sweating, cold or heat intolerance. No polyuria or polydipsia. + Recurrent low blood sugars. ALLERGIES: + Allergic rhinitis. Vital Signs Vital Signs Vital Signs: 09/23/25 13:28 09/23/25 14:11 09/23/25 15:29 Temperature 98.6 F Temperature Source Oral Pulse Rate 64 70 Respiratory Rate 20 H 18 Respiratory Effort Normal Non-Labored Respiratory Pattern Normal Blood Pressure 136/66 H 159/68 H Blood Pressure Mean 89 98 Pulse Ox 96 98 Oxygen Delivery Method Nasal Cannula Nasal Cannula Oxygen Flow Rate (L/min) 5 5 09/23/25 15:35 09/23/25 17:00 Temperature Temperature Source Pulse Rate 72 72 Respiratory Rate 16 18 Respiratory Effort Respiratory Pattern Blood Pressure 173/88 H Blood Pressure Mean 116 Pulse Ox 97 Oxygen Delivery Method Nasal Cannula Oxygen Flow Rate (L/min) 5 Weight Weight: 185 lb 13.595 oz Body Mass Index (BMI) 29.1 Physical Exam Narrative Physical Examination: General: Awake, alert, oriented x 3 and cooperative, laying in the ED bed, fatigued and ill-appearing. Skin: Normal color, normal turgor, no icterus, no cyanosis except occasional stage ecchymoses, abrasion, left lower extremity chronic ulcers. HEENT: AT/NC, EOMI, PERRLA, mildly dry MM, no carotid bruits, difficult to discern JVD given very thickened neck. Lungs: Diminished, greater bases, mildly increased respiratory rate but no distress, on supplemental chronic oxygen therapy, occasional expiratory wheeze, no appreciated rales or rhonchi. Heart: Regular rate and rhythm; no gallop, rub audible. Abdomen: Soft, obese, no marked suprapubic discomfort to palpation, abdomen NTTP, hyperactive BS, no obvious distention or HSM however habitus makes evaluation difficult. Extremities: No cyanosis, no clubbing, see skin, bilateral lower extremity chronic edema. Neurological: Patient awake, alert, oriented as noted, cognitive function intact; pupils equally reactive to light and accommodation, cranial nerves grossly normal, moving all 4 extremities, strength moderately to severely globally decreased secondary to acute presentation and underlying Avery's. Psychiatric: Affect appears flat, fatigued, ill-appearing, no acute evidence of depressive or anxiety feelings but does have underlying history. Results Lab / Micro Data 09/23/25 14:28 09/23/25 17:30 Labs: Laboratory Results - last 24 hr 09/23/25 13:59: POC Glucose 102 09/23/25 14:28: WBC 9.2, RBC 3.13 L, Hgb 9.7 L, Hct 30.8 L, MCV 98.4, MCH 31.0, MCHC 31.5 L, RDW Std Deviation 53.3 H, RDW Coeff of Tessa 14.9 H, Plt Count 238, MPV 9.1, Immature Gran % (Auto) 0.400, Neut % (Auto) 86.4 H, Lymph % (Auto) 7.6 L, Coal % (Auto) 4.6, Eos % (Auto) 0.8, Baso % (Auto) 0.2, Absolute Neuts (auto) 8.0 H, Absolute Lymphs (auto) 0.70 L, Nucleated RBC % 0, Sodium 135, Potassium 5.8 H, Chloride 98, Carbon Dioxide 26.0, Anion Gap 11, BUN 36 H, Creatinine 1.86 H, Est GFR (MDRD) Non-Af 27 L, BUN/Creatinine Ratio 19.4, Glucose 74, Calcium 8.1 09/23/25 15:25: Urine Color Yellow, Urine Clarity Sl. Cloudy, Urine pH 6.0, Ur Specific [place] 1.010, Urine Protein 30 H, Urine Glucose (UA) Normal, Urine Ketones Negative, Urine Occult Blood 250 H, Urine Nitrite Negative, Urine Bilirubin Negative, Urine Urobilinogen Normal, Ur Leukocyte Esterase 100 H, Urine RBC 10-25 SEEN, Urine WBC 10-25 SEEN, Ur Squamous Epith Cells 0 SEEN, Urine Bacteria 4+, Urine Mucus 0 SEEN 09/23/25 17:26: POC Glucose 24 L* 09/23/25 17:30: Glucose 29 L* 09/23/25 17:55: POC Glucose 40 L* 09/23/25 19:10: POC Glucose 122 H Imaging Radiology Impression Chest X-Ray 09/23/25 15:30 IMPRESSION: There is chronic interstitial lung disease. There has been interval improvement in the patient's congestive heart failure with a residual left pleural effusion and left basilar atelectasis. Reading Location: [place] [id number] Assessment & Plan Assessment/Plan (1) UTI (urinary tract infection): PLAN: Plan The patient is a 80 y/o F w/ PMHx: IDDM, PAF, Hx CVA, HTN, HLD, CKD stage II unclear subtype per GFR trending, Chronic normocytic anemia/iron-deficiency anemia, Anxiety and depression/mood disorder, GERD, YOKO on BiPAP, Chronic COPD with chronic hypoxic respiratory failure 5 L NC, Former tobacco use who initially presented earlier in the day on 09/23/2025 with history of low blood sugars starting at 7 AM dropping to 34 and then 24 prompting her to be given food with improvement up to 98 then back down again to 70 with 1 episode of nausea and emesis on day of presentation reportedly eating all of her normal meals however she has no several months developed pneumonia and was hospitalized and then recovered in the transitional care unit with no reported recent illnesses administered aerosol treatment and IV fluids for her hypokalemia with plan for continued blood sugar trending however blood sugars continue to remain low in the ED. #1. Acute Complicated Urinary Tract Infection: Will admit to the ICU given #2, UA upon ED evaluation remarkable, pending UCx, judiciously administer IVFs, monitor I/Os, continue IV cefepime w/ transition as able pending sensitivities and speciation. Bld cx x 2 obtained in the ED. Only record of urinary tract infection noted in the culture section/ with resistance to ampicillin, Unasyn, Ancef, Rocephin but sensitive to cefepime, ciprofloxacin, ertapenem, imipenem, Levaquin, nitrofurantoin, Zosyn as well as Bactrim. Patient also with loose stools in the ED, suspect likely related with complicated UTI but be cautious will obtain enteric and C. difficile. She does deny any recent antibiotic therapies. #2. Acute hypoglycemia, symptomatic likely secondary to #1: Admission glucose significantly low, initially 74 with repeat 29, will continue to closely monitor blood sugar serially, will continue dextrose drip supplementation and alter D10 component if necessary, will hold all diabetic regimen including insulin and oral therapy, maintain on fall and aspiration cautions, PT/OT/case management consulted for discharge planning. #3. Hyperkalemia: Admission potassium 5.8, not noted to be hemolyzed, will repeat BMP now and if still elevated will initiate hyperkalemic protocol and closely continue to trend BMP, maintain on telemetry, repeat serially as noted. #4. Acute renal insufficiency/elevated creatinine secondary to Chronic Kidney Disease Stage III, unclear subtype or GFR trend: Admission BUN/Cr 36/1.86, GFR 27 normally consistent with stage II, baseline renal function primarily 1.3-1.4, repeat BMP in AM. #5. Chronic COPD with allergic rhinitis with chronic hypoxic respiratory failure 5 L NC: Will maintain on home chronic supplementation, continue ATC duonebs, PRN albuterol, HOB, IS parameters, continue montelukast regimen. #6. Chronic normocytic anemia/iron deficiency anemia: Admission hemoglobin 9.7, MCV 98.4, baseline hemoglobin primarily more recently 7-9 range, stable, continue to trend, continue iron supplementation. #7. History CVA: Will continue Eliquis, not on statin therapy, attempted to clarify why, continue hypertensive regimen with alteration as noted with hold on nephrotoxic agents temporarily, holding all diabetic regimen given hypoglycemic presentation as noted. #8. Hypertension: Continue home regimen including metoprolol with hold parameters as needed, PRN hydralazine. Temporarily hold nephrotoxic medication given mild renal insufficiency, add back if improved in the AM. #9. Hyperlipidemia: Per current list not on statin therapy, no noted allergy, defer to outpatient. #10. Anxiety and depression/mood disorder: Will continue patient home regimen cautiously, hold for sedation especially given concurrent hypoglycemic presentation, regimen including trazodone, bupropion, Abilify. #11. PAF: Will continue patient home Eliquis, metoprolol and amiodarone regimen. #12. Former tobacco use: Encourage continued tobacco cessation. #13. GERD: Will continue patient on PPI. #14. Chronic left lower extremity ulcers: Following with wound care, recent transition to podiatry, will continue Aquacel Ag with twice daily dressings per most recent wound care note, wound RN consulted. #15. YOKO: BiPAP nightly. #16. DVT prophylaxis: Will continue patient on Eliquis regimen. #17. CODE status: Patient CRISTOBAL is Abi her daughter and living will is currently in place. Discussed CODE status at length including difference between FULL code, DNR-CCA and DNR-CC status. Following discussions about the differences in these status, requested DNR-CCA, no intubation. Clarified with examples and she does confirm no intubation status concurrently. Advanced Care Planning Face to Face Time: 16 minutes. Charges/Coding Visit Charges Inpatient E&M: 97722 Init Hosp L3 Procedures Hospitalists Procedures: 20366 Advncd Care Plan 30 Min
[2025-09-23] MEDS: Dextrose 5%/0.9% NaCl 1,000 ML 75 ML IV (20:12)
--- OUTSIDE RECORDS SUMMARY | 2025-09-23 20:49 | XMS RPT_ITS | CCD ---
Author Organization [facility] Care Team Providers Care Director Sales And Trade Marketing Name Role Phone BURKE GRAMAJO Unavailable Unavailable DANILO NOEILL Unavailable Unavailable DANILO ONEILL Unavailable Unavailable Dr. Danilo Oneill Primary Care Provider Dr. Nayan Veras Emergency Provider Dr. Todd Crump Admit Provider Dr. Todd Crump Referring Provider Dr. Todd Crump Other Provider Dr. Kavin Mcclain Attending Provider Dr. Kavin Mcclain Other Provider Anthony Hernandez Attending Provider Unavailable Dr. Bharati Kirkland Attending Provider Dr. Bharati Kirkland Other Provider Dustin AUTO HAULER, AUTO HAULER-C [place] Attending Provider DANILO ONEILL DO Attending Unavailable DANILO ONEILL DO Primary Care Unavailable Dr. Danilo Oneill Primary Care Provider Dr. Tacho Moffett Emergency Provider Dr. Kavin Mcclain Admit Provider Dr. Kavin Mcclain Attending Provider Dr. Kavin Mcclain Other Provider [phone] Dr. Antoni Argueta Other Provider Dr. Antoni Argueta Attending Provider Dr. Danilo Oneill Primary Care Provider Dr. Tacho Moffett Emergency Provider Dr. Kavin Mcclain Admit Provider Dr. Kavin Mcclain Attending Provider Dr. Kavin Mcclain Other Provider Dr. Anotni Argueta Other Provider [phone] Antoni Argueta Attending Provider [phone] DANILO ONEILL DO Primary Care Physician [phone] Dr. Danilo Oneill DO Primary Care Provider [phone] Dr. Jane Jay DO Attending Provider [phone] Dr. Jane Jay DO Referring Provider BRANDON MAINTENANCE ASSISTANT-GUN EXAMINER, TAYLOR Primary Care Physician Lauren MILLER, Dr. العراقي Emergency Department Physici an Unavailable BRANDON AUTO HAULER-C, TAYLOR Primary Care Physician Dr. Antoni Argueta DO Admitting Physician Dr. Antoni Argueta DO Attending Physician Dr. Antoni Argueta DO Nurse Practitioner Juliocesar MILLER, Dr. Chamberlain Nurse Practitioner Patrick BURROWS, Dr. Lundy Nurse Practitioner Mervin AUTO HAULER-C, Doris Nurse Practitioner Michael AUTO HAULER-C, Karlee Nurse Practitioner Shelby Green Nurse Practitioner Dr. Ying Jay DO Nurse Practitioner Maura MILLER, Dr. Remy Nurse Practitioner Robles Porter MD, Dr. Avery Nurse Practitioner Dr. Antoni Argueta DO Referring Provider Patrick BURROWS, Dr. Lundy Attending Physician Snow MILLER, Dr. Saenz Nurse Practitioner Zoraida MILLER, Dr. Davis Nurse Practitioner [phone] Federico MILLER, Dr. Bear Nurse Practitioner Scott DO, Dr. Thomas Nurse Practitioner Nita MILLER, Dr. Jonel Preston Nurse Practitioner [phone] Alba BURROWS, Dr. Gonzalez Nurse Practitioner Unavailab daisy Yusuf MD, Dr. Herring Nurse Practitioner Argentina MILLER, Dr. King Nurse Practitioner Un available Zuri MILLER, Dr. Etienne Nurse Practitioner Yash MILLER, Dr. Farrell Nurse Practitioner Montrell MILLER, Dr. Burris Nurse Practitioner [phone] Александр MILLER, Dr. Ortiz Nurse Practitioner [phone] Teresita MILLER, Dr. Reddy Nurse Practitioner Unavailable Frank MILLER, Dr. Avila Nurse Practitioner [phone] Sarah MILLER, Dr. Patel Nurse Practitioner [phone] Jeffery MILLER, Dr. Faria Nurse Practitioner Unavail able Lela BURROWS, Dr. Pedro Nurse Practitioner Unavailable Kathy MILLER, Dr. Carrington Nurse Practitioner Unavailabl bharat Anton MD, Dr. Vidal Nurse Practitioner Eduardo Radford MD, Dr. Alexander Nurse Practitioner [phone] Darion BURROWS, Dr. Gallardo Nurse Practitioner Unavail able Aishwarya MILLER, Dr. Knowles Nurse Practitioner [phone] Roque MILLER, Dr. Carrera Nurse Practitioner Allison MILLER, Dr. Dos Santos Nurse Practitioner [phone] Lisandro DO, Dr. Vasquez Nurse Practitioner Tashia MILLER, Dr. Bradley Nurse Practitioner [phone] Raj MILLER, Dr. Milton Nurse Practitioner Agustin MILLER, Dr. Castillo Nurse Practitioner Unavaila oswaldo Oodnnell DO, Dr. Cruz Nurse Practitioner [phone] Antonio MILLER, Dr. Marte Nurse Practitioner [phone], [address] Ramsay Nurse Practitioner Neto MILLER, Dr. Su Nurse Practitioner [phone] Pierre BURROWS, Dr. He Attending Physician Geo MILLER, Dr. Hdz Attending Physician Dr. William Chavez DO Attending Physician Maura MILLER, Dr. Remy Referring Provider Unavaila oswaldo Lorenzo MD, Dr. Remy Attending Physician Unavail steve Porter MD, Dr. Avery Attending Physician Michael AUTO HAULER-C, Karlee Attending Physician TAYLOR TAYLOR Primary Care Unavailable Gentry AUTO HAULER, Alida Referring Unavailable Gentry AUTO HAULER, Alida Attending Unavailable Danilo Oneill Primary Care Unavailable Jane Jay Referring Unavailable Jane Jay Attending Unavailable Danilo Oneill Primary Care Unavailable TAYLOR TAYLOR Attending Unavailable TAYLOR TAYLOR Referring Unavailable Bulmaro Gandara Consulting Unavailable Jonel Lorenzo Attending Unavailable TAYLOR TAYLOR Primary Care Unavailable Antoni Argueta Admitting Unavailable Patrick, Kamron Consulting Unavailable Doris Jeffries Consulting Unavailable Karlee Rodriguez Consulting Unavailable Shelby Dumont Consulting Unavailable Dany Adamson Consulting Unavailable Ryan Conway Consulting Unavailable Chema Caballero Consulting Unavailable William Chavez Consulting Unavailable Jonel Moya Consulting Unavailable Lisa Willis Consulting Unavailable Nima Yusuf Consulting Unavailable Fernando Elaine Consulting Unavailable Lowell Keating Consulting Unavailable Jami Berrios Consulting Unavailab le Montrell, [place] Consulting Unavailable Angel Fountain Consulting Unavailable Barry Lo Consulting UnavailAustin Becerril Consulting Unavailable Amanda Simth Consulting Unavailable Bienvenido Gil Consulting Unavailable Willis Vogel Consulting UnavailZeb Felipe Consulting Unavailable Desean, Vidal Consulting Unavailable Catherine Radford Consulting Unavailable Paulina Orlando Consulting Unavailable Benson Neff Consulting Unavailable Deandre Nevarez Consulting Unavailable Allison, Levon Consulting Unavailable Dhesi, Pedro Consulting Unavailable Mirna Lao Consulting Unavailable Raj, Soleyah Consulting Unavailable Jonathan Velez Consulting Unavailable Anthony Odonnell Consulting Unavailable Estuardo Alvarez Consulting Unavailable Devendra Green Consulting UnavailGeorges Holt Consulting Unavailable Antoni Argueta Consulting Unavailable Ying Jay Consulting Unavailable Jonel Lorenzo Consulting Unavailable Friend, Kamron Attending Unavailable Jonel Lorenzo Referring Unavailable BRANDON, TAYLOR Primary Care Unavailable Ying Jay Attending Unavailable Jonel Lorenzo Referring Unavailable William Chavez Attending Unavailable Jyotsna Ordonez Attending Unavailabl e BRANDON, TAYLOR Primary Care Unavailable Olelincolne Jyotsna BANG Attending Unavailabl e BRANDON, TAYLOR Primary Care Unavailable BRANDON, TAYLOR Primary Care Unavailable Jyotsna Ordonez Attending UnavailJonel Campoverde Referring Unavailable Friend, Kamron Attending Unavailable BRANDON, TAYLOR Primary Care Unavailable BRANDON, TAYLOR Primary Care Unavailable Andreina Guardado Attending Unavailable Antoni Argueta Attending Unavailable Gena Porter Consulting Unavailable Karlee Rodriguez Attending Unavailable Antoni Argueta Referring Unavailable Friend, Kamron Attending Unavailable Jane Jay Attending Unavailable Jane Jay Referring Unavailable Linda, Danilo Primary Care Unavailable BRANDON, TAYLOR Primary Care Unavailable Antoni Argueta Attending Unavailable Antoni Argueta Admitting Unavailable Bulmaro Gandara Consulting Unavailable Friend, Kamron Consulting Unavailable Doris Jeffries Consulting Unavailable Karlee Rodriguez Consulting Unavailable Shelby Dumont Consulting Unavailable Antoni Argueta Consulting Unavailable Ying Jay Consulting Unavailable Jonel Lorenzo Consulting Unavailable Gena Porter Consulting Unavailable Linda, Danilo Primary Care Unavailable BRANDONTAYLOR SIDDIQUI Attending Unavailable Jane Jay Attending Unavailable BRANDON, TAYLOR Primary Care Unavailable Gena Porter Attending Unavailable Austin Huber Attending Unavailable Oleghe, Efewongbe Primary Care Unavailable VINCENZO MILLER FACP, ALINA Morgan Admitting Unavail able CRISTINO SHEETS MD Consulting Unavailable DR BRENDA STEINER DO Attending Unavailable BRANDON MAINTENANCE ASSISTANT-GUN EXAMINER, TAYLOR Primary Care Unapascale TAYLOR MAINTENANCE ASSISTANT-GUN EXAMINER, TAYLOR Attending Unapascale TAYLOR MAINTENANCE ASSISTANT-GUN EXAMINER, TAYLOR Primary Care Tremaine HORNE MD, JAIR Consulting Unavailable BRITTANY BURROWS, DR GUTIERREZ Attending Unavailable BRITTANY BURROWS, DR GUTIERREZ Referring Unavailable MAGDALENA PETIT, SHUKRI Reyes Admitting Tremaine PETIT, TAYLOR Primary Care Tremaine leahy Medications Current Medications Medication Drug Class(es) Dates [...] wheezing, # 18 gram(s), 11 Refill(s), Pharmacy: [facility], COPD with exacerbation, 165, cm, 09/06/24 [...] wheezing, # 18 gram(s), 5 Refill(s), Pharmacy: [facility], COPD with exacerbation Start Date: 08/09/19 [...] qDay, # 90 tab(s), 1 Refill(s), Pharmacy: [facility], 163, cm, 05/16/25 10:49:00 EDT, Height, [...] qDay, # 90 tab(s), 1 Refill(s), Pharmacy: [facility], 163, cm, 05/16/25 10:49:00 EDT, Height, [...] qPM, # 90 tab(s), 1 Refill(s), Pharmacy: [facility], HTN (hypertension), 163, cm, 05/16/25 10:49:00 [...] E11.9, # 1 EA, 0 Refill(s), Pharmacy: [facility], DM (diabetes mellitus), 168, cm, 08/12/23 [...] E11.9, # 1 EA, 0 Refill(s), Pharmacy: [facility], DM (diabetes mellitus), 168, cm, 08/12/23 10:36:00 EDT, Height, 86.3, kg, 08/12/23 10:36:00 EDT, Dosing Weight Start Date: 09/10/23 Status: Ordered Breztri Aerosphere 160 mcg-9 mcg-4.8 mcg/inh inhalation aerosol (3 sources) Start: 05-16-2025 End: 11-07-2026 Breztri Aerosphere 160 mcg-9 mcg-4.8 mcg/inh inhalation aerosol Dose = 2 puff(s), Inhalation, BID, not to exceed 4 inhalations/day, # 10.7 gram(s), 5 Refill(s), Pharmacy: [facility], COPD (chronic obstructive pulmonary disease), 163, [...] BID, # 200 tab(s), 3 Refill(s), Pharmacy: [facility], 165, cm, 02/21/25 13:20:00 EDT, Height, [...] BID, # 200 tab(s), 3 Refill(s), Pharmacy: [facility], 167, cm, 12/02/23 15:42:00 EST, Height, kg, 12/02/23 15:42:00 EST, Dosing Weight Start Date: 12/02/23 Stop Date: 01/05/25 Status: Ordered cholecalciferol 0.125 mg ora l capsule (20 sources) Vitamin D Start: 07-23-2025 Start: 01-31-2022 End: 05-11-2024 DME MISCellaneous (4 sources) Start: 06-17-2024 DME MISCellane ous See Instructions, bilateral knee highcompression hose medium 20-30, # 1 EA, 0 Refill(s), Pharmacy: [facility], Peripheral edema, 165, cm, 06/17/24 13:29:00 EDT, Height, 78.2, kg, 06/17/24 13:29:00 EDT, Dosing Weight Start Date: 06/17/24 Status: Ordered Medication Dispense Status: Completed Quantity: 1.0 Unit: EA Total Allowed Fills: 1 Fills Dispensed: 0 Indications: Localized edema; Start: 06-17-2024 DME MISCellane ous See Instructions, bilateral knee highcompression hose medium 20-30, # 1 EA, 0 Refill(s), Pharmacy: [facility], Peripheral edema, 165, cm, 06/17/24 13:29:00 EDT, Height, 78.2, kg, 06/17/24 13:29:00 EDT, Dosing Weight Start Date: 06/17/24 Status: Ordered doxycycline hyclate 100 mg oral tablet (1 source) Tetracycline-class Drug Start: 06-17-2024 End: 07-01-2024 doxycycline hyclate 100 mg oral tablet Dose : 100 mg = 1 tab(s), Oral, BID, X 14 day(s), # 28 tab(s), 0 Refill(s), 07/01/24 2:08:00 PM EDT, Pharmacy: [facility], Diabetic ulcer of left ankle, 165, [...] qDay, # 90 cap(s), 1 Refill(s), Pharmacy: [facility], Hiatal hernia with GERD, 163, cm, [...] 07-23-2025 End: 08-05-2025 Start: 04-19-2021 End: 05-11-2024 Whtdeoinbqi-Qmcsmieso-Ozkutx er (18 sources) Anticholinergic, Corticosteroid, beta2-Adrenergic Agonist Start: 04-19-2021 Acnaifblnvq-Nihecuevl-Hlezos er (Trelegy Ellipta) 100-62.5-25 mcg blister with device Active 1 INH INHALATION DAILY April 19, 2021 6:00pm Start: 04-19-2021 End: 07-28-2023 Start: 04-19-2021 End: 07-28-2023 Rywzlkkvmjf-Nnbqennky-Tulcxh er (Trelegy Ellipta) 100-62.5-25 mcg blister with device Discontinued 1 NMA INHALATION DAILY April 19, 2021 12:00am July 28, 2023 7:59pm Start: 04-19-2021 End: 07-28-2023 Zxbtgoztgmv-Qtokgmbaf-Wkrosx er (Trelegy Ellipta) 100-62.5-25 mcg blister with device Discontinued 1 INH INHALATION DAILY April 18, 2021 11:00pm July 28, 2023 6:59pm Start: 04-19-2021 End: 07-28-2023 Zgaaggofmtc-Lttniovvt-Rvfhwb er (Trelegy Ellipta) 100-62.5-25 mcg blister with [...] BID, # 180 tab(s), 1 Refill(s), Pharmacy: [facility], 163, cm, 05/16/25 10:49:00 EDT, [...] QID, # 3 EA, 3 Refill(s), Pharmacy: [facility], 165, cm, 09/06/24 13:19:00 EST, Height, [...] Trelegy, # 1 EA, 5 Refill(s), Pharmacy: [facility], COPD (chronic obstructive pulmonary disease), 167, cm, 02/18/24 12:56:00 EDT, Height, kg, 02/18/24 12:56:00 EDT, Dosing Weight Start Date: 03/04/24 Status: Ordered losartan potassium 50 mg oral tablet (20 sources) Angiotensin 2 Receptor Nancie Start: 03-03-2024 End: 11-12-2025 losartan 50 mg oral tablet Dose : 50 mg = 1 tab(s), Oral, qDay, # 90 tab(s), 1 Refill(s), Pharmacy: [facility], HTN (hypertension), 163, cm, 05/16/25 10:49:00 [...] qHS, # 90 tab(s), 1 Refill(s), Pharmacy: [facility], 163, cm, 05/16/25 10:49:00 EDT, Height, [...] qDay, # 90 tab(s), 1 Refill(s), Pharmacy: [facility], 163, cm, 05/16/25 10:49:00 EDT, Height, [...] insulin, # 100 EA, 3 Refill(s), Pharmacy: [facility], DM (diabetes mellitus), 170.2, cm, 02/21/20 [...] insulin, # 100 EA, 3 Refill(s), Pharmacy: [facility], DM (diabetes mellitus), 170.2, cm, 02/21/20 [...] Daily, # 90 tab(s), 1 Refill(s), Pharmacy: [facility], 163, cm, 05/16/25 10:49:00 EDT, Height, [...] qHS, # 90 tab(s), 1 Refill(s), Pharmacy: [facility], 163, cm, 05/16/25 10:49:00 EDT, Height, [...] qDay, # 90 cap(s), 1 Refill(s), Pharmacy: [facility], 163, cm, 05/16/25 10:49:00 EDT, Height, [...] qDay, # 90 tab(s), 1 Refill(s), Pharmacy: [facility], 163, cm, 05/16/25 10:49:00 EDT, Height, kg, 05/16/25 10:49:00 EDT, Dosing Weight Start Date: 05/16/25 Stop Date: 11/12/25 Status: Ordered Medication Dispense Status: Completed Quantity: 90.0 Unit: tab(s) Total Allowed Fills: 2 Fills Dispensed: 0 Start: 05-31-2024 Vitamin B-12 1 000 mcg oral tablet Dose : 1,000 mcg = 1 tab(s), Oral, qDay, # 100 tab(s), 3 Refill(s), Pharmacy: [facility], 165, cm, 05/25/24 13:47:00 EDT, Height, [...] qDay, # 90 cap(s), 1 Refill(s), Pharmacy: [facility], Vitamin D deficiency, 163, cm, 05/16/25 [...] 1 Fills Dispensed: 0 Start: 08-05-2025 nystatin [id number] unt/ml topic al cream (3 sources) Polyene [...] Prednisone Active 40 MG PO DAILY 6 July 29, 2023 11:00pm Problems Active Problems [...] Anxiety disorder; Translations: [Anxiety disorder, unspecified] Onset: Chronic Biliary tract disease (6 sources) Common bile duct calculus; Translations: [Calculus of bile duct without cholangitis or cholecystitis without obstruction] 03-10-2024 Episodic Cardiac dysrhythmias (6 sources) Paroxysmal atrial fibrillation; Translations: [Paroxysmal atrial fibrillation with rapid ventricular response] Onset: 5 07-24-2025 Chronic Chronic kidney disease (20 sources) Chronic kidney disease stage 3B ; Translations: [Stage 3b chronic kidney disease] Onset: 5 Chronic Chronic kidney disease (1 source) Chronic [...] Translations: [Anemia in chronic kidney disease] Onset: 5 Chronic Deficiency and other anemia (16 sources) [...] Translations: [Essential (primary) hypertension] Onset: 5 Chronic Fluid and electrolyte disorders (20 sources) Hyponatremia; Translations: [Hypo-osmolality and hyponatremia] Onset: Episodic Fracture of lower limb (20 sources) Closed [...] site] 03-15-2023 Chronic Other aftercare (1 source) technician terminal and repeater (current) use of anticoagulants; Translations: [shelter (current) use of anticoagulants] Onset: 5 Episodic Other aftercare (1 source) technician terminal and repeater (current) use of oral hypoglycemic drugs; Translations: [technician terminal and repeater (current) use of oral hypoglycemic drugs] Onset: [...] sources) Body mass index 30+ - obesity 05-16-2025 Chronic Other nutritional; endocrine; and metabolic disorders [...] failure with hypoxia] Onset: 5 07-19-2020 Chronic Screening and history of mental health and substance abuse codes (20 sources) Ex-tobacco user; Translations: [Personal history of nicotine dependence] Onset: 5 07-19-2020 Episodic Septicemia (except in labor) (11 sources) Sepsis; [...] Classification Problem Date Documented Da te Episodic/Chronic Nutritional deficiencies (20 sources) Cobalamin deficiency; Translations: [Deficiency of other specified B group vitamins] Onset: 05-16-2025 Episodic Unclassified (1 source) ACCIDENTAL FALL//WRIST PAIN Onset: 04-12-2017 Unclassified (17 sources) fall with rib pain 01-17-2020 Results Test Name Value Interpretation Reference Range Facility Basic Metabolic Profile (BMP )on 08-23-2025 Chloride [Moles/Vol] 94 mmol/L Low 98-108 [facility] Comment on above: Performed By: #### L 100.0100, L503.7505, L500.2500 ####[facility] [address] [place], [address] GAP 9 Normal 5-15 [facility] Comment on above: Performed By: #### L 100.0100, L503.7505, L500.2500 ####[facility] [address] [place], [address] Potassium [Moles/Vol] 4.5 mmol/L Normal 3.3-5.1 [facility] Comment on above: Performed By: #### L 100.0100, L503.7505, L500.2500 ####[facility] [address] [place], [address] Sodium [Moles/Vol] 135 mmol/L Normal 133-145 [facility] Comment on above: Performed By: #### L 100.0100, L503.7505, L500.2500 ####[facility] [address] [place], [address] CBC W/Diff, Automatedon 08-13 Absolute Lymph 1.03 X10 3/uL Normal 0.83-4.51 [facility] Comment on above: Performed By: #### L 100.0100, L503.7505, L500.2500 ####[facility] [address] [place], [address] Absolute Neut 7.8 X10 3/uL High 2.0-7.7 [facility] Comment on above: Performed By: #### L 100.0100, L503.7505, L500.2500 ####[facility] [address] [place], [address] Basophils/100 WBC (Bld) 0.8 % Normal 0-1 [facility] Comment on above: Performed By: #### L 100.0100, L503.7505, L500.2500 ####[facility] [address] [place], [address] Eosinophils/100 WBC (Bld) 2.2 % Normal 0-5 [facility] Comment on above: Performed By: #### L 100.0100, L503.7505, L500.2500 ####[facility] [address] [place], [address] Erythrocyte distribution width (RBC) [Ratio] 15.5 % High 11.6-14.6 [facility] Comment on above: Performed By: #### L 100.0100, L503.7505, L500.2500 ####[facility] [address] [place], [address] Hematocrit (Bld) [Volume fraction] 31.7 % Low 37-47 [facility] Comment on above: Performed By: #### L 100.0100, L503.7505, L500.2500 ####[facility] [address] [place], [address] Hemoglobin (Bld) [Mass/Vol] 9.7 g/dL Low 12.0-15.0 [facility] Comment on above: Performed By: #### L 100.0100, L503.7505, L500.2500 ####[facility] [address] [place], [address] IG% 2.200 High 0.0-0.9 [facility] Comment on above: Result Comment: IG% - Immature Granulocytes (promyelocytes, myelocytes andmetamyelocytes) > 1% indicates that a LEFT SHIFT is Present. Performed By: #### L 100.0100, L503.7505, L500.2500 ####[facility] [address] [place], [address] Lymphocytes/100 WBC (Bld) 10.3 % Low 19-41 [facility] Comment on above: Performed By: #### L 100.0100, L503.7505, L500.2500 ####[facility] [address] [place], [address] MCH (RBC) [Entitic mass] 30.0 pg Normal 27.0-32.0 [facility] Comment on above: Performed By: #### L 100.0100, L503.7505, L500.2500 ####[facility] [address] [place], [address] MCHC (RBC) [Mass/Vol] 30.6 g/dL Low 32-36 [facility] Comment on above: Performed By: #### L 100.0100, L503.7505, L500.2500 ####[facility] [address] [place], [address] MCV (RBC) [Entitic vol] 98.1 fL Normal 81-99 [facility] Comment on above: Performed By: #### L 100.0100, L503.7505, L500.2500 ####[facility] [address] [place], [address] Monocytes/100 WBC (Bld) 6.6 % Normal 0-10 [facility] Comment on above: Performed By: #### L 100.0100, L503.7505, L500.2500 ####[facility] [address] [place], [address] Neutrophils/100 WBC (Bld) 77.9 % High 47-70 [facility] Comment on above: Performed By: #### L 100.0100, L503.7505, L500.2500 ####[facility] [address] [place], [address] Nucleated RBC (Bld) [#/Vol] 0 10*3/uL Normal 0-5 [facility] Comment on above: Performed By: #### L 100.0100, L503.7505, L500.2500 ####[facility] [address] [place], [address] Platelet mean volume (Bld) [Entitic vol] 9.7 fL Normal 6.2-12.0 [facility] Comment on above: Performed By: #### L 100.0100, L503.7505, L500.2500 ####[facility] [address] [place], [address] Platelets (Bld) [#/Vol] 313 10*3/uL Normal 150-450 [facility] Comment on above: Performed By: #### L 100.0100, L503.7505, L500.2500 ####[facility] [address] [place], [address] RBC (Bld) [#/Vol] 3.23 10*6/uL Low 4.2-5.4 [facility] Comment on above: Performed By: #### L 100.0100, L503.7505, L500.2500 ####[facility] [address] [place], [address] RDW SD 55.2 fl High 35.1-43.9 [facility] Comment on above: Performed By: #### L 100.0100, L503.7505, L500.2500 ####[facility] [address] [place], [address] WBC (Bld) [#/Vol] 10.0 10*3/uL Normal 4.4-11.0 [facility] Comment on above: Performed By: #### L 100.0100, L503.7505, L500.2500 ####[facility] [address] [place], [address] Chest 1 View (Portable)on Chest 1 View (Portable) Normal [facility] Emergency Department Summary on 08-23-2025 Emergency Department Summary Normal [facility] M100.678on 08-23-2025 M100.678 Pending SARS-CoV-2 (COVID 19) Negative INFLUENZA A Negative INFLUENZA B Negative RSV PCR Negative Normal [facility] Comment on above: Performed By: #### M 100.678 ####[facility] [address] [place], [address] Pro- Brain NATRIURETIC PEPTI Varghese 08-23-2025 Natriuretic peptide B (Bld) [Mass/Vol] 67463 pg/mL High <=1800 [facility] Comment on above: Result Comment: Hear t Failure Unlikely: < 300 pg/mLHeart Failure Likely< 50 Years: > 450 pg/mL50-75 Years: > 900 pg/mL>75 Years: > 1800 pg/mL AMENDED REPORT 08/23/25 0223 proBNP previously reported as: [id number] H pg/mLHeart Failure Unlikely: < 300 pg/mLHeart Failure Likely< 50 Years: > 450 pg/mL50-75 Years: > 900 pg/mL>75 Years: > 1800 pg/mL Performed By: #### L 100.0100, L503.7505, L500.2500 ####[facility] [address] [place], [address] BRCon 08-19-2025 RC Normal [facility] Comment on above: Result Comment: [id number] AP RC TRANSFUSED 08/19/25 [id number] AP RC TRANSFUSED 08/19/25 1023 Performed By: #### B JUDY, BTS ####[facility] [address] [place], [place], [address] Type AND Screenon 08-19-2025 ABO and Rh group Nom (Bld) Blood group A Rh(D) positive Normal [facility] Comment on above: Order Comment: [id number] Performed By: #### B JUDY, BTS ####[facility] [address] [place], [place], [address] .Auto Diffon 08-13-2025 Basophil, Absolute 0.0 10 3/mcL Normal 0.0-0.3 [facility] Comment on above: Performed By: #### M G, ANEU, CBC, BMP, ADIFF, GFR #### [address] [address] Basophils/100 WBC (Bld) 0.3 % Normal 0.0-2.5 [facility] Comment on above: Performed By: #### M G, ANEU, CBC, BMP, ADIFF, GFR #### [address] [address] Eosinophil, Absolute 0.1 10 3/mcL Normal 0.0-0.7 [facility] Comment on above: Performed By: #### M G, ANEU, CBC, BMP, ADIFF, GFR #### [address] [address] Eosinophils/100 WBC (Bld) 0.8 % Normal 0.0-6.0 [facility] Comment on above: Performed By: #### M G, ANEU, CBC, BMP, ADIFF, GFR #### [address] [address] Lymphocyte, Absolute 0.4 10 3/mcL Low 0.9-4.3 [facility] Comment on above: Performed By: #### M G, ANEU, CBC, BMP, ADIFF, GFR #### [address] [address] Lymphocytes/100 WBC (Bld) 4.5 % Low 20.0-40.0 [facility] Comment on above: Performed By: #### M G, ANEU, CBC, BMP, ADIFF, GFR #### [address] [address] Monocyte, Absolute 0.3 10 3/mcL Normal 0.1-1.4 [facility] Comment on above: Performed By: #### M G, ANEU, CBC, BMP, ADIFF, GFR #### [address] [address] Monocytes/100 WBC (Bld) 3.5 % Normal 2.0-13.0 [facility] Comment on above: Performed By: #### M G, ANEU, CBC, BMP, ADIFF, GFR #### [address] [address] Neutrophils/100 WBC (Bld) 90.9 % High 50.0-75.0 [facility] Comment on above: Performed By: #### M G, ANEU, CBC, BMP, ADIFF, GFR #### [address] [address] .GFRon 08-13-2025 Estimated Glomerular Filtration Rate 24 ml/min/1.73sqm Normal [facility] Comment on above: Result Comment: Stages [...] calculate the eGFR results. Performed By: #### M G, ANEU, CBC, BMP, ADIFF, GFR #### [address] [address] Estimated Glomerular Filtration Rate 24 ml/min/1.73sqm Normal [facility] Comment on above: Result Comment: Stages [...] calculate the eGFR results. Performed By: #### M G, ANEU, CBC, BMP, ADIFF, GFR #### [id number] [place], [place] [address] .NEUABSon 08-13-2025 Neutrophil, Absolute 7.9 10 3/mcL Normal 2.3-8.1 [facility] Comment on above: Performed By: #### M G, ANEU, CBC, BMP, ADIFF, GFR #### [id number] [place], [place] [address] BMPon 08-13-2025 BUN/Creatinine Ratio 37 ratio High 7-27 [facility] Comment on above: Performed By: #### M G, ANEU, CBC, BMP, ADIFF, GFR #### [id number] [place], [place] [address] Calcium [Mass/Vol] 8.4 mg/dL Normal 8.4-10.2 [facility] Comment on above: Performed By: #### M G, ANEU, CBC, BMP, ADIFF, GFR #### [address] [place], [place] [address] Chloride [Moles/Vol] 92 mmol/L Low 98-107 [facility] Comment on above: Performed By: #### M G, ANEU, CBC, BMP, ADIFF, GFR #### [address] [place], [place] [address] CO2 [Moles/Vol] 34 mmol/L High 23-31 [facility] Comment on above: Performed By: #### M G, ANEU, CBC, BMP, ADIFF, GFR #### [address] [address] Creatinine [Mass/Vol] 2.07 mg/dL High 0.51-0.95 [facility] Comment on above: Performed By: #### M G, ANEU, CBC, BMP, ADIFF, GFR #### [address] [address] Electrolyte Balance 4.0 mEq/L Normal 4.0-15.0 [facility] Comment on above: Performed By: #### M G, ANEU, CBC, BMP, ADIFF, GFR #### [address] [address] Glucose [Mass/Vol] 46 mg/dL Critically abnormal 83-110 [facility] Comment on above: Performed By: #### M G, ANEU, CBC, BMP, ADIFF, GFR #### [address] [address] Potassium [Moles/Vol] 3.1 mmol/L Low 3.5-5.1 [facility] Comment on above: Performed By: #### M G, ANEU, CBC, BMP, ADIFF, GFR #### [address] [address] Sodium [Moles/Vol] 130 mmol/L Low 136-145 [facility] Comment on above: Performed By: #### M G, ANEU, CBC, BMP, ADIFF, GFR #### [address] [address] Urea nitrogen [Mass/Vol] 76 mg/dL High 7-18 [facility] Comment on above: Performed By: #### M G, ANEU, CBC, BMP, ADIFF, GFR #### [address] [address] BUN/Creatinine Ratio 36 ratio High 7-27 [facility] Comment on above: Performed By: #### M G, ANEU, CBC, BMP, ADIFF, GFR #### [place] [address] Calcium [Mass/Vol] 8.6 mg/dL Normal 8.4-10.2 [facility] Comment on above: Performed By: #### M G, ANEU, CBC, BMP, ADIFF, GFR #### [place] [address] Chloride [Moles/Vol] 90 mmol/L Low 98-107 [facility] Comment on above: Performed By: #### M G, ANEU, CBC, BMP, ADIFF, GFR #### [place] [address] CO2 [Moles/Vol] 33 mmol/L High 23-31 [facility] Comment on above: Performed By: #### M G, ANEU, CBC, BMP, ADIFF, GFR #### [place] [address] Creatinine [Mass/Vol] 2.06 mg/dL High 0.51-0.95 [facility] Comment on above: Performed By: #### M G, ANEU, CBC, BMP, ADIFF, GFR #### [place] [address] Electrolyte Balance 6.0 mEq/L Normal 4.0-15.0 [facility] Comment on above: Performed By: #### M G, ANEU, CBC, BMP, ADIFF, GFR #### [place] [address] Glucose [Mass/Vol] 264 mg/dL High 83-110 [facility] Comment on above: Performed By: #### M G, ANEU, CBC, BMP, ADIFF, GFR #### [place] [address] Potassium [Moles/Vol] 3.7 mmol/L Normal 3.5-5.1 [facility] Comment on above: Performed By: #### M G, ANEU, CBC, BMP, ADIFF, GFR #### [place] [id number] Sodium [Moles/Vol] 129 mmol/L Low 136-145 [facility] Comment on above: Performed By: #### M G, ANEU, CBC, BMP, ADIFF, GFR #### [address] [address] Urea nitrogen [Mass/Vol] 75 mg/dL High 7-18 [facility] Comment on above: Performed By: #### M G, ANEU, CBC, BMP, ADIFF, GFR #### [address] [address] CBCon 08-13-2025 Erythrocyte distribution width (RBC) [Ratio] 14.5 % Normal 11.5-15.5 [facility] Comment on above: Performed By: #### M G, ANEU, CBC, BMP, ADIFF, GFR #### [place] [address] Hematocrit (Bld) [Volume fraction] 22.0 % Low 34.0-46.0 [facility] Comment on above: Performed By: #### M G, ANEU, CBC, BMP, ADIFF, GFR #### [place] [address] Hgb 7.4 G/dL Low 12.0-16.0 [facility] Comment on above: Performed By: #### M G, ANEU, CBC, BMP, ADIFF, GFR #### [place] [address] MCH (RBC) [Entitic mass] 31.4 pg Normal 27.0-33.0 [facility] Comment on above: Performed By: #### M G, ANEU, CBC, BMP, ADIFF, GFR #### [place] [address] MCHC 33.8 G/dL Normal 32.0-36.0 [facility] Comment on above: Performed By: #### M G, ANEU, CBC, BMP, ADIFF, GFR #### [place] [address] MCV (RBC) [Entitic vol] 92.9 fL Normal 80.0-99.0 [facility] Comment on above: Performed By: #### M G, ANEU, CBC, BMP, ADIFF, GFR #### [address] [address] Platelet 156 10 3/mcL Normal 150-450 [facility] Comment on above: Performed By: #### M G, ANEU, CBC, BMP, ADIFF, GFR #### [address] [address] Platelet mean volume (Bld) [Entitic vol] 9.2 fL Normal 6.6-10.5 [facility] Comment on above: Performed By: #### M G, ANEU, CBC, BMP, ADIFF, GFR #### [address] [address] RBC 2.37 10 6/mcL Low 4.10-5.30 [facility] Comment on above: Performed By: #### M G, ANEU, CBC, BMP, ADIFF, GFR #### [address] [address] WBC 8.7 10 3/mcL Normal 4.5-10.8 [facility] Comment on above: Performed By: #### M G, ANEU, CBC, BMP, ADIFF, GFR #### [address] [address] GLUon 08-13-2025 Glucose [Mass/Vol] 109 mg/dL Normal 83-110 [facility] Comment on above: Performed By: #### M G, ANEU, CBC, BMP, ADIFF, GFR #### [address] [address] LABORATORYOrdered By: Kayy Anderson on 08-13-2025 Blood Glucose Testing Reason Routine (08/13/25 4:50 PM) [facility] Work Phone: Glucose [Mass/Vol] 106 mg/dL Normal 82 - 115 mg/dL [facility] Work Phone: LABORATORYOrdered By: SYSTEM SYSTEM [...] Reason Symptoms of hypoglycemia (08/13/25 3:41 PM) [facility] Work Phone: Glucose [Mass/Vol] 109 mg/dL Normal 82 - 115 mg/dL [facility] Work Phone: Blood Glucose Testing Reason Routine (08/13/25 3:01 PM) [facility] Work Phone: Glucose [Mass/Vol] 143 mg/dL High 82 - 115 mg/dL [facility] Work Phone: MGon 08-13-2025 Magnesium [Mass/Vol] 2.6 mg/dL High 1.8-2.4 [facility] Comment on above: Performed By: #### M G, ANEU, CBC, BMP, ADIFF, GFR #### [address] [address] No Panel InformationOrdered By: Bree Uribe on 08-13-2025 Blood Glucose Interventions Administered agent to increase blood sugar, Notify physician (08/13/25 2:15 PM) [facility] Work Phone: .Auto Diffon 08-12-2025 Basophil, Absolute 0.0 10 3/mcL Normal 0.0-0.3 [facility] Comment on above: Performed By: #### M G, ANEU, CBC, BMP, ADIFF, GFR #### [address] [address] Basophils/100 WBC (Bld) 0.2 % Normal 0.0-2.5 [facility] Comment on above: Performed By: #### M G, ANEU, CBC, BMP, ADIFF, GFR #### [address] [address] Eosinophil, Absolute 0.2 10 3/mcL Normal 0.0-0.7 [facility] Comment on above: Performed By: #### M G, ANEU, CBC, BMP, ADIFF, GFR #### [address] [address] Eosinophils/100 WBC (Bld) 3.3 % Normal 0.0-6.0 [facility] Comment on above: Performed By: #### M G, ANEU, CBC, BMP, ADIFF, GFR #### [address] [address] Lymphocyte, Absolute 0.7 10 3/mcL Low 0.9-4.3 [facility] Comment on above: Performed By: #### M G, ANEU, CBC, BMP, ADIFF, GFR #### [address] [address] Lymphocytes/100 WBC (Bld) 9.4 % Low 20.0-40.0 [facility] Comment on above: Performed By: #### M G, ANEU, CBC, BMP, ADIFF, GFR #### [address] [address] Monocyte, Absolute 0.4 10 3/mcL Normal 0.1-1.4 [facility] Comment on above: Performed By: #### M G, ANEU, CBC, BMP, ADIFF, GFR #### [address] [address] Monocytes/100 WBC (Bld) 5.9 % Normal 2.0-13.0 [facility] Comment on above: Performed By: #### M G, ANEU, CBC, BMP, ADIFF, GFR #### [address] [address] Neutrophils/100 WBC (Bld) 81.2 % High 50.0-75.0 [facility] Comment on above: Performed By: #### M G, ANEU, CBC, BMP, ADIFF, GFR #### [address] [address] .GFRon 08-12-2025 Estimated Glomerular Filtration Rate 23 ml/min/1.73sqm Normal [facility] Comment on above: Result Comment: Stages [...] calculate the eGFR results. Performed By: #### M G, ANEU, CBC, BMP, ADIFF, GFR #### [address] [address] .NEUABSon 08-12-2025 Neutrophil, Absolute 5.8 10 3/mcL Normal 2.3-8.1 [facility] Comment on above: Performed By: #### M G, ANEU, CBC, BMP, ADIFF, GFR #### [address] [address] BGon 08-12-2025 Base excess Calc (Bld) [Moles/Vol] 2.4 mmol/L Normal [facility] Comment on above: Performed By: #### M G, ANEU, CBC, BMP, ADIFF, GFR #### [address] [address] CO2 [Moles/Vol] 29.3 mmol/L Normal 22.0-30.0 [facility] Comment on above: Performed By: #### M G, ANEU, CBC, BMP, ADIFF, GFR #### [address] [address] HCO3 (Bld) [Moles/Vol] 27.8 mmol/L Normal 21.0-29.0 [facility] Comment on above: Performed By: #### M G, ANEU, CBC, BMP, ADIFF, GFR #### [address] [address] Oxygen (Bld) [Partial pressure] 82.6 mm[Hg] Normal 74.0-108.0 [facility] Comment on above: Performed By: #### M G, ANEU, CBC, BMP, ADIFF, GFR #### [address] [address] Oxygen saturation in Blood 95.3 % Normal 92.0-96.0 [facility] Comment on above: Performed By: #### M G, ANEU, CBC, BMP, ADIFF, GFR #### [address] [address] pCO2 47.9 mmHg High 32.0-46.0 [facility] Comment on above: Performed By: #### M G, ANEU, CBC, BMP, ADIFF, GFR #### [address] [address] pH (Bld) 7.382 [pH] Normal 7.380-7.460 [facility] Comment on above: Performed By: #### M G, ANEU, CBC, BMP, ADIFF, GFR #### [address] [address] BMPon 08-12-2025 BUN/Creatinine Ratio 31 ratio High 05-08 [facility] Comment on above: Performed By: #### M G, ANEU, CBC, BMP, ADIFF, GFR #### [address] [address] Calcium [Mass/Vol] 8.3 mg/dL Low 8.4-10.2 [facility] Comment on above: Performed By: #### M G, ANEU, CBC, BMP, ADIFF, GFR #### [address] [address] Chloride [Moles/Vol] 91 mmol/L Low 98-107 [facility] Comment on above: Performed By: #### M G, ANEU, CBC, BMP, ADIFF, GFR #### [address] [address] CO2 [Moles/Vol] 34 mmol/L High 23-31 [facility] Comment on above: Performed By: #### M G, ANEU, CBC, BMP, ADIFF, GFR #### [address] [address] Creatinine [Mass/Vol] 2.12 mg/dL High 0.51-0.95 [facility] Comment on above: Performed By: #### M G, ANEU, CBC, BMP, ADIFF, GFR #### [address] [address] Electrolyte Balance 5.0 mEq/L Normal 4.0-15.0 [facility] Comment on above: Performed By: #### M G, ANEU, CBC, BMP, ADIFF, GFR #### [address] [address] Glucose [Mass/Vol] 168 mg/dL High 83-110 [facility] Comment on above: Performed By: #### M G, ANEU, CBC, BMP, ADIFF, GFR #### [address] [address] Potassium [Moles/Vol] 3.3 mmol/L Low 3.5-5.1 [facility] Comment on above: Performed By: #### M G, ANEU, CBC, BMP, ADIFF, GFR #### [address] [address] Sodium [Moles/Vol] 130 mmol/L Low 136-145 [facility] Comment on above: Performed By: #### M G, ANEU, CBC, BMP, ADIFF, GFR #### [address] [address] Urea nitrogen [Mass/Vol] 66 mg/dL High 7-18 [facility] Comment on above: Performed By: #### M G, ANEU, CBC, BMP, ADIFF, GFR #### [address] [address] CBCon 08-12-2025 Erythrocyte distribution width (RBC) [Ratio] 14.5 % Normal 11.5-15.5 [facility] Comment on above: Performed By: #### M G, ANEU, CBC, BMP, ADIFF, GFR #### [address] [address] Hematocrit (Bld) [Volume fraction] 21.6 % Low 34.0-46.0 [facility] Comment on above: Performed By: #### M G, ANEU, CBC, BMP, ADIFF, GFR #### [address] [address] Hgb 7.3 G/dL Low 12.0-16.0 [facility] Comment on above: Performed By: #### M G, ANEU, CBC, BMP, ADIFF, GFR #### [place] [address] MCH (RBC) [Entitic mass] 31.3 pg Normal 27.0-33.0 [facility] Comment on above: Performed By: #### M G, ANEU, CBC, BMP, ADIFF, GFR #### [place] [address] MCHC 33.6 G/dL Normal 32.0-36.0 [facility] Comment on above: Performed By: #### M G, ANEU, CBC, BMP, ADIFF, GFR #### [place] [address] MCV (RBC) [Entitic vol] 93.2 fL Normal 80.0-99.0 [facility] Comment on above: Performed By: #### M G, ANEU, CBC, BMP, ADIFF, GFR #### [address] [address] Platelet 151 10 3/mcL Normal 150-450 [facility] Comment on above: Performed By: #### M G, ANEU, CBC, BMP, ADIFF, GFR #### [address] [address] Platelet mean volume (Bld) [Entitic vol] 9.1 fL Normal 6.6-10.5 [facility] Comment on above: Performed By: #### M G, ANEU, CBC, BMP, ADIFF, GFR #### [address] [address] RBC 2.32 10 6/mcL Low 4.10-5.30 [facility] Comment on above: Performed By: #### M G, ANEU, CBC, BMP, ADIFF, GFR #### [facility] [address] [place], [place] [address] WBC 7.1 10 3/mcL Normal 4.5-10.8 [facility] Comment on above: Performed By: #### M G, ANEU, CBC, BMP, ADIFF, GFR #### [facility] [address] [place], [place] [address] LABORATORYOrdered By: Tomas Villa on 08-12-2025 Osmolality [...] 08-12-2025 Magnesium [Mass/Vol] 2.4 mg/dL Normal 1.8-2.4 [facility] Comment on above: Performed By: #### M G, ANEU, CBC, BMP, ADIFF, GFR #### [address] [address] NAURon 08-12-2025 Sodium [Moles/Vol] 38 mmol/L Normal [facility] Comment on above: Performed By: #### N AUR #### [address] [address] #### OSMOU #### [address] [address] OSMOSon 08-12-2025 Osmolality [Osmolality] 298 mosm/kg Normal 275-300 [facility] Comment on above: Performed By: #### M G, ANEU, CBC, BMP, ADIFF, GFR #### [address] [address] OSMOUon 08-12-2025 U Osmolality 320 mOsm/kg Low 390-1090 [facility] Comment on above: Performed By: #### N AUR #### [address] [address] #### OSMOU #### [address] [address] .Auto Diffon 08-11-2025 Basophil, Absolute 0.0 10 3/mcL Normal 0.0-0.3 [facility] Comment on above: Performed By: #### M G, ANEU, CBC, BMP, ADIFF, GFR #### [address] [address] Basophils/100 WBC (Bld) 0.3 % Normal 0.0-2.5 [facility] Comment on above: Performed By: #### M G, ANEU, CBC, BMP, ADIFF, GFR #### [address] [address] Eosinophil, Absolute 0.2 10 3/mcL Normal 0.0-0.7 [facility] Comment on above: Performed By: #### M G, ANEU, CBC, BMP, ADIFF, GFR #### [address] [address] Eosinophils/100 WBC (Bld) 3.2 % Normal 0.0-6.0 [facility] Comment on above: Performed By: #### M G, ANEU, CBC, BMP, ADIFF, GFR #### [address] [address] Lymphocyte, Absolute 0.6 10 3/mcL Low 0.9-4.3 [facility] Comment on above: Performed By: #### M G, ANEU, CBC, BMP, ADIFF, GFR #### [address] [address] Lymphocytes/100 WBC (Bld) 9.2 % Low 20.0-40.0 [facility] Comment on above: Performed By: #### M G, ANEU, CBC, BMP, ADIFF, GFR #### [address] [address] [place], [place] [address] Monocyte, Absolute 0.3 10 3/mcL Normal 0.1-1.4 [facility] Comment on above: Performed By: #### M G, ANEU, CBC, BMP, ADIFF, GFR #### [address] [address] Monocytes/100 WBC (Bld) 5.0 % Normal 2.0-13.0 [facility] Comment on above: Performed By: #### M G, ANEU, CBC, BMP, ADIFF, GFR #### [address] [address] Neutrophils/100 WBC (Bld) 82.3 % High 50.0-75.0 [facility] Comment on above: Performed By: #### M G, ANEU, CBC, BMP, ADIFF, GFR #### [address] [address] .GFRon 08-11-2025 Estimated Glomerular Filtration Rate 23 ml/min/1.73sqm Normal [facility] Comment on above: Result Comment: Stages [...] calculate the eGFR results. Performed By: #### M G, ANEU, CBC, BMP, ADIFF, GFR #### [address] [address] .NEUABSon 08-11-2025 Neutrophil, Absolute 5.7 10 3/mcL Normal 2.3-8.1 [facility] Comment on above: Performed By: #### M G, ANEU, CBC, BMP, ADIFF, GFR #### [address] [address] BMPon 08-11-2025 BUN/Creatinine Ratio 29 ratio High 7-27 [facility] Comment on above: Performed By: #### M G, ANEU, CBC, BMP, ADIFF, GFR #### [place] [address] Calcium [Mass/Vol] 8.3 mg/dL Low 8.4-10.2 [facility] Comment on above: Performed By: #### M G, ANEU, CBC, BMP, ADIFF, GFR #### [place] [address] Chloride [Moles/Vol] 92 mmol/L Low 98-107 [facility] Comment on above: Performed By: #### M G, ANEU, CBC, BMP, ADIFF, GFR #### [place] [address] CO2 [Moles/Vol] 34 mmol/L High 23-31 [facility] Comment on above: Performed By: #### M G, ANEU, CBC, BMP, ADIFF, GFR #### [address] [address] Creatinine [Mass/Vol] 2.11 mg/dL High 0.51-0.95 [facility] Comment on above: Performed By: #### M G, ANEU, CBC, BMP, ADIFF, GFR #### [place] [address] Electrolyte Balance 6.0 mEq/L Normal 4.0-15.0 [facility] Comment on above: Performed By: #### M G, ANEU, CBC, BMP, ADIFF, GFR #### [place] [id number] Glucose [Mass/Vol] 198 mg/dL High 83-110 [facility] Comment on above: Performed By: #### M G, ANEU, CBC, BMP, ADIFF, GFR #### [address] [address] Potassium [Moles/Vol] 3.7 mmol/L Normal 3.5-5.1 [facility] Comment on above: Performed By: #### M G, ANEU, CBC, BMP, ADIFF, GFR #### [address] [address] Sodium [Moles/Vol] 132 mmol/L Low 136-145 [facility] Comment on above: Performed By: #### M G, ANEU, CBC, BMP, ADIFF, GFR #### [place] [address] Urea nitrogen [Mass/Vol] 61 mg/dL High 7-18 [facility] Comment on above: Performed By: #### M G, ANEU, CBC, BMP, ADIFF, GFR #### [address] [address] CBCon 08-11-2025 Erythrocyte distribution width (RBC) [Ratio] 14.6 % Normal 11.5-15.5 [facility] Comment on above: Performed By: #### M G, ANEU, CBC, BMP, ADIFF, GFR #### [address] [address] Hematocrit (Bld) [Volume fraction] 22.2 % Low 34.0-46.0 [facility] Comment on above: Performed By: #### M G, ANEU, CBC, BMP, ADIFF, GFR #### [address] [address] Hgb 7.6 G/dL Low 12.0-16.0 [facility] Comment on above: Performed By: #### M G, ANEU, CBC, BMP, ADIFF, GFR #### [address] [address] MCH (RBC) [Entitic mass] 31.5 pg Normal 27.0-33.0 [facility] Comment on above: Performed By: #### M G, ANEU, CBC, BMP, ADIFF, GFR #### [address] [address] MCHC 34.0 G/dL Normal 32.0-36.0 [facility] Comment on above: Performed By: #### M G, ANEU, CBC, BMP, ADIFF, GFR #### [address] [address] MCV (RBC) [Entitic vol] 92.7 fL Normal 80.0-99.0 [facility] Comment on above: Performed By: #### M G, ANEU, CBC, BMP, ADIFF, GFR #### [address] [address] Platelet 147 10 3/mcL Low 150-450 [facility] Comment on above: Performed By: #### M G, ANEU, CBC, BMP, ADIFF, GFR #### [address] [address] Platelet mean volume (Bld) [Entitic vol] 9.1 fL Normal 6.6-10.5 [facility] Comment on above: Performed By: #### M G, ANEU, CBC, BMP, ADIFF, GFR #### [address] [address] RBC 2.40 10 6/mcL Low 4.10-5.30 [facility] Comment on above: Performed By: #### M G, ANEU, CBC, BMP, ADIFF, GFR #### [address] [address] WBC 6.9 10 3/mcL Normal 4.5-10.8 [facility] Comment on above: Performed By: #### M G, ANEU, CBC, BMP, ADIFF, GFR #### [address] [address] LABORATORYOrdered By: SYSTEM SYSTEM on 08-11-2025 Basophils [...] 08-11-2025 Magnesium [Mass/Vol] 2.5 mg/dL High 1.8-2.4 [facility] Comment on above: Performed By: #### M G, ANEU, CBC, BMP, ADIFF, GFR #### [place] [id number] [place], [place] [address] XR CHEST 1 VIEWon 08-11-2025 XR CHEST [...] 08/11/2025 6:01:57 AM Ordering Provider: SHUKRI DAVID Normal [facility] .Auto Diffon 08-10-2025 Basophil, Absolute 0.0 10 3/mcL Normal 0.0-0.3 [facility] Comment on above: Performed By: #### M G, ANEU, CBC, BMP, ADIFF, GFR #### [id number] [place], [place] [address] Basophils/100 WBC (Bld) 0.5 % Normal 0.0-2.5 [facility] Comment on above: Performed By: #### M G, ANEU, CBC, BMP, ADIFF, GFR #### [address] [address] Eosinophil, Absolute 0.2 10 3/mcL Normal 0.0-0.7 [facility] Comment on above: Performed By: #### M G, ANEU, CBC, BMP, ADIFF, GFR #### [address] [address] Eosinophils/100 WBC (Bld) 3.4 % Normal 0.0-6.0 [facility] Comment on above: Performed By: #### M G, ANEU, CBC, BMP, ADIFF, GFR #### [address] [address] Lymphocyte, Absolute 0.8 10 3/mcL Low 0.9-4.3 [facility] Comment on above: Performed By: #### M G, ANEU, CBC, BMP, ADIFF, GFR #### [address] [address] Lymphocytes/100 WBC (Bld) 13.3 % Low 20.0-40.0 [facility] Comment on above: Performed By: #### M G, ANEU, CBC, BMP, ADIFF, GFR #### [address] [address] Monocyte, Absolute 0.4 10 3/mcL Normal 0.1-1.4 [facility] Comment on above: Performed By: #### M G, ANEU, CBC, BMP, ADIFF, GFR #### [address] [address] Monocytes/100 WBC (Bld) 7.2 % Normal 2.0-13.0 [facility] Comment on above: Performed By: #### M G, ANEU, CBC, BMP, ADIFF, GFR #### [address] [address] Neutrophils/100 WBC (Bld) 75.6 % High 50.0-75.0 [facility] Comment on above: Performed By: #### M G, ANEU, CBC, BMP, ADIFF, GFR #### [address] [address] .GFRon 08-10-2025 Estimated Glomerular Filtration Rate 24 ml/min/1.73sqm Normal [facility] Comment on above: Result Comment: Stages [...] calculate the eGFR results. Performed By: #### Marino Xiong, ANEU, CBC, BMP, ADIFF, GFR #### [address] [address] .NEUABSon 08-10-2025 Neutrophil, Absolute 4.6 10 3/mcL Normal 2.3-8.1 [facility] Comment on above: Performed By: #### Marino Xiong, ANEU, CBC, BMP, ADIFF, GFR #### [id number] [place], [place] [address] BMPon 08-10-2025 BUN/Creatinine Ratio 23 ratio Normal 7-27 [facility] - [facility] Comment on above: Performed By: #### M Tyrese, ANEU, CBC, BMP, ADIFF, GFR #### [id number] [place], [place] [address] Calcium [Mass/Vol] 8.0 mg/dL Low 8.4-10.2 [facility] Comment on above: Performed By: #### M G, ANEU, CBC, BMP, ADIFF, GFR #### [id number] [place], [place] [address] Chloride [Moles/Vol] 93 mmol/L Low 98-107 [facility] Comment on above: Performed By: #### M G, ANEU, CBC, BMP, ADIFF, GFR #### [address] [address] CO2 [Moles/Vol] 35 mmol/L High 23-31 [facility] Comment on above: Performed By: #### M G, ANEU, CBC, BMP, ADIFF, GFR #### [address] [address] Creatinine [Mass/Vol] 2.08 mg/dL High 0.51-0.95 [facility] Comment on above: Performed By: #### M G, ANEU, CBC, BMP, ADIFF, GFR #### [address] [address] Electrolyte Balance 6.0 mEq/L Normal 4.0-15.0 [facility] Comment on above: Performed By: #### M G, ANEU, CBC, BMP, ADIFF, GFR #### [place] [address] Glucose [Mass/Vol] 146 mg/dL High 83-110 [facility] Comment on above: Performed By: #### M G, ANEU, CBC, BMP, ADIFF, GFR #### [address] [address] Potassium [Moles/Vol] 4.8 mmol/L Normal 3.5-5.1 [facility] Comment on above: Performed By: #### M G, ANEU, CBC, BMP, ADIFF, GFR #### [address] [address] Sodium [Moles/Vol] 134 mmol/L Low 136-145 [facility] Comment on above: Performed By: #### M G, ANEU, CBC, BMP, ADIFF, GFR #### [address] [address] Urea nitrogen [Mass/Vol] 48 mg/dL High 7-18 [facility] Comment on above: Performed By: #### M G, ANEU, CBC, BMP, ADIFF, GFR #### [address] [place] [address] CBCon 08-10-2025 Erythrocyte distribution width (RBC) [Ratio] 14.8 % Normal 11.5-15.5 [facility] Comment on above: Performed By: #### M G, ANEU, CBC, BMP, ADIFF, GFR #### [address] [address] Hematocrit (Bld) [Volume fraction] 22.0 % Low 34.0-46.0 [facility] Comment on above: Performed By: #### M G, ANEU, CBC, BMP, ADIFF, GFR #### [place] [address] Hgb 7.4 G/dL Low 12.0-16.0 [facility] Comment on above: Performed By: #### M G, ANEU, CBC, BMP, ADIFF, GFR #### [place] [address] MCH (RBC) [Entitic mass] 31.2 pg Normal 27.0-33.0 [facility] Comment on above: Performed By: #### M G, ANEU, CBC, BMP, ADIFF, GFR #### [place] [address] MCHC 33.4 G/dL Normal 32.0-36.0 [facility] Comment on above: Performed By: #### M G, ANEU, CBC, BMP, ADIFF, GFR #### [place] [address] MCV (RBC) [Entitic vol] 93.2 fL Normal 80.0-99.0 [facility] Comment on above: Performed By: #### M G, ANEU, CBC, BMP, ADIFF, GFR #### [address] [address] Platelet 134 10 3/mcL Low 150-450 [facility] Comment on above: Performed By: #### M G, ANEU, CBC, BMP, ADIFF, GFR #### [place] [id number] Platelet mean volume (Bld) [Entitic vol] 8.5 fL Normal 6.6-10.5 [facility] Comment on above: Performed By: #### M G, ANEU, CBC, BMP, ADIFF, GFR #### [address] [address] RBC 2.36 10 6/mcL Low 4.10-5.30 [facility] Comment on above: Performed By: #### M G, ANEU, CBC, BMP, ADIFF, GFR #### [address] [address] WBC 6.1 10 3/mcL Normal 4.5-10.8 [facility] Comment on above: Performed By: #### M G, ANEU, CBC, BMP, ADIFF, GFR #### [address] [address] Marti 08-10-2025 Ferritin [Mass/Vol] 338.0 ng/mL High 8.0-252.0 [facility] Comment on above: Performed By: #### M G, ANEU, CBC, BMP, ADIFF, GFR #### [address] [address] FESon 08-10-2025 Iron [Mass/Vol] 48 ug/dL Low 50-170 [facility] Comment on above: Performed By: #### R ETO, FES, FERR #### [place] [address] Iron Sat 25 % Normal [facility] Comment on above: Performed By: #### R ETO, FES, FERR #### [address] [address] TIBC 193 mcg/dL Low 250-450 [facility] Comment on above: Performed By: #### R ETO, FES, FERR #### [address] [address] LABORATORYOrdered By: Judson Cruz on 08-10-2025 Blood Glucose Interventions Administered agent to increase blood sugar (08/10/25 9:37 PM) [facility] Work Phone: Blood Glucose Interventions Administered food/juice (08/10/25 9:07 PM) [facility] Work Phone: LABORATORYOrdered By: SYSTEM SYSTEM [...] 08-10-2025 Magnesium [Mass/Vol] 1.3 mg/dL Low 1.8-2.4 [facility] Comment on above: Performed By: #### M G, ANEU, CBC, BMP, ADIFF, GFR #### [address] [address] RETO (AO)on 08-10-2025 Immature Retic Fraction 0.56 IRF High 0.20-0.46 [facility] Comment on above: Performed By: #### M G, ANEU, CBC, BMP, ADIFF, GFR #### [address] [address] Reticulocytes, Auto 3.1 % High 0.2-2.3 [facility] Comment on above: Performed By: #### M G, ANEU, CBC, BMP, ADIFF, GFR #### [address] [address] .Auto Diffon 08-09-2025 Basophil, Absolute 0.0 10 3/mcL Normal 0.0-0.3 [facility] Comment on above: Performed By: #### M G, ANEU, CBC, BMP, ADIFF, GFR #### [address] [address] Basophils/100 WBC (Bld) 0.5 % Normal 0.0-2.5 [facility] Comment on above: Performed By: #### M G, ANEU, CBC, BMP, ADIFF, GFR #### [address] [address] Eosinophil, Absolute 0.1 10 3/mcL Normal 0.0-0.7 [facility] Comment on above: Performed By: #### M G, ANEU, CBC, BMP, ADIFF, GFR #### [address] [address] Eosinophils/100 WBC (Bld) 1.4 % Normal 0.0-6.0 [facility] Comment on above: Performed By: #### M G, ANEU, CBC, BMP, ADIFF, GFR #### [address] [address] Lymphocyte, Absolute 0.8 10 3/mcL Low 0.9-4.3 [facility] Comment on above: Performed By: #### M G, ANEU, CBC, BMP, ADIFF, GFR #### [address] [address] Lymphocytes/100 WBC (Bld) 12.5 % Low 20.0-40.0 [facility] Comment on above: Performed By: #### M G, ANEU, CBC, BMP, ADIFF, GFR #### [address] [address] Monocyte, Absolute 0.5 10 3/mcL Normal 0.1-1.4 [facility] Comment on above: Performed By: #### M G, ANEU, CBC, BMP, ADIFF, GFR #### [address] [address] Monocytes/100 WBC (Bld) 7.8 % Normal 2.0-13.0 [facility] Comment on above: Performed By: #### M G, ANEU, CBC, BMP, ADIFF, GFR #### [address] [address] Neutrophils/100 WBC (Bld) 77.8 % High 50.0-75.0 [facility] Comment on above: Performed By: #### M G, ANEU, CBC, BMP, ADIFF, GFR #### [address] [address] Basophil, Absolute 0.0 10 3/mcL Normal 0.0-0.3 [facility] Comment on above: Performed By: #### M G, ANEU, CBC, BMP, ADIFF, GFR #### [address] [address] Basophils/100 WBC (Bld) 0.3 % Normal 0.0-2.5 [facility] Comment on above: Performed By: #### M G, ANEU, CBC, BMP, ADIFF, GFR #### [address] [address] Eosinophil, Absolute 0.1 10 3/mcL Normal 0.0-0.7 [facility] Comment on above: Performed By: #### M G, ANEU, CBC, BMP, ADIFF, GFR #### [address] [address] Eosinophils/100 WBC (Bld) 1.8 % Normal 0.0-6.0 [facility] Comment on above: Performed By: #### M G, ANEU, CBC, BMP, ADIFF, GFR #### [address] [address] Lymphocyte, Absolute 0.9 10 3/mcL Normal 0.9-4.3 [facility] Comment on above: Performed By: #### M G, ANEU, CBC, BMP, ADIFF, GFR #### [address] [address] Lymphocytes/100 WBC (Bld) 14.0 % Low 20.0-40.0 [facility] Comment on above: Performed By: #### M G, ANEU, CBC, BMP, ADIFF, GFR #### [address] [address] Monocyte, Absolute 0.6 10 3/mcL Normal 0.1-1.4 [facility] Comment on above: Performed By: #### M G, ANEU, CBC, BMP, ADIFF, GFR #### [address] [place], [place] [address] Monocytes/100 WBC (Bld) 8.6 % Normal 2.0-13.0 [facility] Comment on above: Performed By: #### M G, ANEU, CBC, BMP, ADIFF, GFR #### [address] [address] Neutrophils/100 WBC (Bld) 75.3 % High 50.0-75.0 [facility] Comment on above: Performed By: #### M G, ANEU, CBC, BMP, ADIFF, GFR #### [address] [address] .GFRon 08-09-2025 Estimated Glomerular Filtration Rate 25 ml/min/1.73sqm Normal [facility] Comment on above: Result Comment: Stages [...] calculate the eGFR results. Performed By: #### M G, ANEU, CBC, BMP, ADIFF, GFR #### [address] [place], [place] [address] .NEUABSon 08-09-2025 Neutrophil, Absolute 5.2 10 3/mcL Normal 2.3-8.1 [facility] Comment on above: Performed By: #### M G, ANEU, CBC, BMP, ADIFF, GFR #### [address] [place], [place] [address] Neutrophil, Absolute 4.9 10 3/mcL Normal 2.3-8.1 [facility] Comment on above: Performed By: #### M G, ANEU, CBC, BMP, ADIFF, GFR #### [address] [address] BMPon 08-09-2025 BUN/Creatinine Ratio 21 ratio Normal 7-27 [facility] Comment on above: Performed By: #### M G, ANEU, CBC, BMP, ADIFF, GFR #### [address] [address] Calcium [Mass/Vol] 8.3 mg/dL Low 8.4-10.2 [facility] Comment on above: Performed By: #### M G, ANEU, CBC, BMP, ADIFF, GFR #### [address] [address] Chloride [Moles/Vol] 98 mmol/L Normal 98-107 [facility] Comment on above: Performed By: #### M G, ANEU, CBC, BMP, ADIFF, GFR #### [address] [address] CO2 [Moles/Vol] 35 mmol/L High 23-31 [facility] Comment on above: Performed By: #### M G, ANEU, CBC, BMP, ADIFF, GFR #### [address] [address] Creatinine [Mass/Vol] 1.99 mg/dL High 0.51-0.95 [facility] Comment on above: Performed By: #### M G, ANEU, CBC, BMP, ADIFF, GFR #### [address] [address] Electrolyte Balance 3.0 mEq/L Low 4.0-15.0 [facility] Comment on above: Performed By: #### M G, ANEU, CBC, BMP, ADIFF, GFR #### [address] [address] Glucose [Mass/Vol] 46 mg/dL Critically abnormal 83-110 [facility] Comment on above: Performed By: #### M G, ANEU, CBC, BMP, ADIFF, GFR #### [address] [address] Potassium [Moles/Vol] 5.6 mmol/L High 3.5-5.1 [facility] Comment on above: Performed By: #### M G, ANEU, CBC, BMP, ADIFF, GFR #### [place] [address] Sodium [Moles/Vol] 136 mmol/L Normal 136-145 [facility] Comment on above: Performed By: #### M G, ANEU, CBC, BMP, ADIFF, GFR #### [place] [address] Urea nitrogen [Mass/Vol] 41 mg/dL High 7-18 [facility] Comment on above: Performed By: #### M G, ANEU, CBC, BMP, ADIFF, GFR #### [address] [address] CBCon 08-09-2025 Erythrocyte distribution width (RBC) [Ratio] 15.0 % Normal 11.5-15.5 [facility] Comment on above: Performed By: #### M G, ANEU, CBC, BMP, ADIFF, GFR #### [address] [address] Hematocrit (Bld) [Volume fraction] 24.4 % Low 34.0-46.0 [facility] Comment on above: Performed By: #### M G, ANEU, CBC, BMP, ADIFF, GFR #### [address] [address] Hgb 8.0 G/dL Low 12.0-16.0 [facility] Comment on above: Performed By: #### M G, ANEU, CBC, BMP, ADIFF, GFR #### [address] [address] MCH (RBC) [Entitic mass] 31.4 pg Normal 27.0-33.0 [facility] Comment on above: Performed By: #### M G, ANEU, CBC, BMP, ADIFF, GFR #### [address] [address] MCHC 32.8 G/dL Normal 32.0-36.0 [facility] Comment on above: Performed By: #### M G, ANEU, CBC, BMP, ADIFF, GFR #### [place] [id number] MCV (RBC) [Entitic vol] 95.7 fL Normal 80.0-99.0 [facility] Comment on above: Performed By: #### M G, ANEU, CBC, BMP, ADIFF, GFR #### [place] [address] Platelet 164 10 3/mcL Normal 150-450 [facility] Comment on above: Performed By: #### M G, ANEU, CBC, BMP, ADIFF, GFR #### [place] [address] Platelet mean volume (Bld) [Entitic vol] 9.0 fL Normal 6.6-10.5 [facility] Comment on above: Performed By: #### M G, ANEU, CBC, BMP, ADIFF, GFR #### [place] [id number] RBC 2.55 10 6/mcL Low 4.10-5.30 [facility] Comment on above: Performed By: #### M G, ANEU, CBC, BMP, ADIFF, GFR #### [place] [id number] WBC 6.7 10 3/mcL Normal 4.5-10.8 [facility] Comment on above: Performed By: #### M G, ANEU, CBC, BMP, ADIFF, GFR #### [place] [address] Erythrocyte distribution width (RBC) [Ratio] 15.0 % Normal 11.5-15.5 [facility] Comment on above: Performed By: #### M G, ANEU, CBC, BMP, ADIFF, GFR #### [address] [address] Hematocrit (Bld) [Volume fraction] 22.8 % Low 34.0-46.0 [facility] Comment on above: Performed By: #### M G, ANEU, CBC, BMP, ADIFF, GFR #### [address] [address] Hgb 7.6 G/dL Low 12.0-16.0 [facility] Comment on above: Performed By: #### M G, ANEU, CBC, BMP, ADIFF, GFR #### [address] [address] MCH (RBC) [Entitic mass] 31.2 pg Normal 27.0-33.0 [facility] Comment on above: Performed By: #### M G, ANEU, CBC, BMP, ADIFF, GFR #### [place] [address] MCHC 33.2 G/dL Normal 32.0-36.0 [facility] Comment on above: Performed By: #### M G, ANEU, CBC, BMP, ADIFF, GFR #### [place] [address] MCV (RBC) [Entitic vol] 94.0 fL Normal 80.0-99.0 [facility] Comment on above: Performed By: #### M G, ANEU, CBC, BMP, ADIFF, GFR #### [address] [address] Platelet 145 10 3/mcL Low 150-450 [facility] Comment on above: Performed By: #### M G, ANEU, CBC, BMP, ADIFF, GFR #### [place] [address] Platelet mean volume (Bld) [Entitic vol] 8.4 fL Normal 6.6-10.5 [facility] Comment on above: Performed By: #### M G, ANEU, CBC, BMP, ADIFF, GFR #### [address] [place] [address] RBC 2.42 10 6/mcL Low 4.10-5.30 [facility] Comment on above: Performed By: #### M G, ANEU, CBC, BMP, ADIFF, GFR #### [address] [place], [place] [address] WBC 6.5 10 3/mcL Normal 4.5-10.8 [facility] Comment on above: Performed By: #### M G, ANEU, CBC, BMP, ADIFF, GFR #### [address] [address] Hussain 08-09-2025 Potassium [Moles/Vol] 4.9 mmol/L Normal 3.5-5.1 [facility] Comment on above: Performed By: #### M G, ANEU, CBC, BMP, ADIFF, GFR #### [address] [address] Potassium [Moles/Vol] 5.9 mmol/L High 3.5-5.1 [facility] Comment on above: Performed By: #### M G, ANEU, CBC, BMP, ADIFF, GFR #### [address] [address] LABORATORYOrdered By: Lalito Agosto on 08-09-2025 Blood Glucose Testing Reason Routine (08/09/25 9:40 AM) [facility] Work Phone: Glucose [Mass/Vol] 124 mg/dL High 82 - 115 mg/dL [facility] Work Phone: Blood Glucose Testing Reason Routine (08/09/25 9:25 AM) [facility] Work Phone: Glucose [Mass/Vol] 135 mg/dL High 82 - 115 mg/dL [facility] Work Phone: Blood Glucose Testing Reason Routine (08/09/25 9:10 AM) [facility] Work Phone: Glucose [Mass/Vol] 131 mg/dL High 82 - 115 mg/dL [facility] Work Phone: LABORATORYOrdered By: Zachery Sandoval on 08-09-2025 Blood Glucose Interventions Administered agent to increase blood sugar (08/09/25 5:45 AM) [facility] Work Phone: LABORATORYOrdered By: SYSTEM SYSTEM [...] blood sugar, Notify physician (08/09/25 8:27 AM) [facility] Work Phone: PBNPon 08-09-2025 Natriuretic peptide B (Bld) [Mass/Vol] 4587 pg/mL High 0-450 [facility] Comment on above: Result Comment: NT-p roBNP results of less than 300 pg/mL effectively rules out acute congestive heart failure with 99% negative predictive value. Performed By: #### M G, ANEU, CBC, BMP, ADIFF, GFR #### [facility] [address] [place], [place] [address] XR CHEST 2 VIEWSon XR CHEST 2 [...] 9:16:33 AM Ordering Provider: SHUKRI DAVID RP Normal [facility] .GFRon 08-08-2025 Estimated Glomerular Filtration Rate 28 ml/min/1.73sqm Normal [facility] Comment on above: Result Comment: Stages [...] calculate the eGFR results. Performed By: #### M G, ANEU, CBC, BMP, ADIFF, GFR #### [address] [place], [place] [address] A1Con 08-08-2025 Glucose [Mass/Vol] 154 mg/dL Normal [facility] Comment on above: Result Comment: Diane mated Average Glucose calculated by equation ((28.7xA1C)-46.7) Estimated average glucose (eAG) is a calculated value from Hemoglobin A1C and is human resources representative of the average blood glucose level in the last 2-3 month period. Normal range: less than 114 mg/dL Performed By: #### A 1C #### [address] [place], [place] [address] HbA1c (Bld) [Mass fraction] 7.0 % High 4.3-6.4 [facility] Comment on above: Performed By: #### A 1C #### [address] [place], [place] [address] BMPon 08-08-2025 BUN/Creatinine Ratio 22 ratio Normal 05-08 [facility] Comment on above: Performed By: #### M G, ANEU, CBC, BMP, ADIFF, GFR #### [address] [place], [place] [address] Calcium [Mass/Vol] 8.6 mg/dL Normal 8.4-10.2 [facility] Comment on above: Performed By: #### M G, ANEU, CBC, BMP, ADIFF, GFR #### [address] [address] Chloride [Moles/Vol] 101 mmol/L Normal 98-107 [facility] Comment on above: Performed By: #### M G, ANEU, CBC, BMP, ADIFF, GFR #### [address] [address] CO2 [Moles/Vol] 34 mmol/L High 23-31 [facility] Comment on above: Performed By: #### M G, ANEU, CBC, BMP, ADIFF, GFR #### [address] [address] Creatinine [Mass/Vol] 1.79 mg/dL High 0.51-0.95 [facility] Comment on above: Performed By: #### M G, ANEU, CBC, BMP, ADIFF, GFR #### [place] [address] Electrolyte Balance 2.0 mEq/L Low 4.0-15.0 [facility] Comment on above: Performed By: #### M G, ANEU, CBC, BMP, ADIFF, GFR #### [place] [address] Glucose [Mass/Vol] 89 mg/dL Normal 83-110 [facility] Comment on above: Performed By: #### M G, ANEU, CBC, BMP, ADIFF, GFR #### [place] [address] Potassium [Moles/Vol] 6.0 mmol/L High 3.5-5.1 [facility] Comment on above: Performed By: #### M G, ANEU, CBC, BMP, ADIFF, GFR #### [place] [address] Sodium [Moles/Vol] 137 mmol/L Normal 136-145 [facility] Comment on above: Performed By: #### M G, ANEU, CBC, BMP, ADIFF, GFR #### [place] [address] Urea nitrogen [Mass/Vol] 40 mg/dL High 7-18 [facility] Comment on above: Performed By: #### M G, ANEU, CBC, BMP, ADIFF, GFR #### [facility] [address] [place], [place] [address] Basic Metabolic Profile (BMP )on 08-08-2025 BUN Normal 4-19 [facility] Comment on above: Result Comment: Canc elled via OM: Order cancelled - Patient discharged Performed By: #### L 500.2500 ####[facility] [address] [place], [address] BUN/CRE Normal 10-20 [facility] Comment on above: Result Comment: Canc elled via OM: Order cancelled - Patient discharged Performed By: #### L 500.2500 ####[facility] [address] [place], [address] Calcium Normal 7.6-11.0 [facility] Comment on above: Result Comment: Canc elled via OM: Order cancelled - Patient discharged Performed By: #### L 500.2500 ####[facility] [address] [place], [address] CL Normal 98-108 [facility] Comment on above: Result Comment: Canc elled via OM: Order cancelled - Patient discharged Performed By: #### L 500.2500 ####[facility] [address] [place], [address] CO2 Normal 21.0-32.0 [facility] Comment on above: Result Comment: Canc elled via OM: Order cancelled - Patient discharged Performed By: #### L 500.2500 ####[facility] [address] [place], [address] CREAT,SERUM Normal 0.70-1.20 [facility] Comment on above: Result Comment: Canc elled via OM: Order cancelled - Patient discharged Performed By: #### L 500.2500 ####[facility] [address] [place], [address] eGFR Normal >60 [facility] Comment on above: Result Comment: Canc elled via OM: Order cancelled - Patient discharged Performed By: #### L 500.2500 ####[facility] [address] [place], [address] GAP Normal 5-15 [facility] Comment on above: Result Comment: Canc elled via OM: Order cancelled - Patient discharged Performed By: #### L 500.2500 ####[facility] [address] [place], [address] GLU Normal 70-99 [facility] Comment on above: Result Comment: Canc elled via OM: Order cancelled - Patient discharged Performed By: #### L 500.2500 ####[facility] [address] [place], [address] Potassium Normal 3.3-5.1 [facility] Comment on above: Result Comment: Canc elled via OM: Order cancelled - Patient discharged Performed By: #### L 500.2500 ####[facility] [address] [place], [address] Basic Metabolic Profile (BMP) Normal 133-145 [facility] Comment on above: Result Comment: Canc elled via OM: Order cancelled - Patient discharged Performed By: #### L 500.2500 ####[facility] [address] [place], [address] CBC-Complete Blood Cnt No Di ffon 08-08-2025 HCT Normal 37-47 [facility] Comment on above: Result Comment: Canc elled via OM: Order cancelled - Patient discharged Performed By: #### L 100.0500 ####[facility] [address] [place], [address] HGB Normal 12.0-15.0 [facility] Comment on above: Result Comment: Canc elled via OM: Order cancelled - Patient discharged Performed By: #### L 100.0500 ####[facility] [address] [place], [address] MCH Normal 27.0-32.0 [facility] Comment on above: Result Comment: Canc elled via OM: Order cancelled - Patient discharged Performed By: #### L 100.0500 ####[facility] [address] [place], [address] MCHC Normal 32-36 [facility] Comment on above: Result Comment: Canc elled via OM: Order cancelled - Patient discharged Performed By: #### L 100.0500 ####[facility] [address] [place], [address] MCV Normal 81-99 [facility] Comment on above: Result Comment: Canc elled via OM: Order cancelled - Patient discharged Performed By: #### L 100.0500 ####[facility] [address] [place], [address] PLT Normal 150-450 [facility] Comment on above: Result Comment: Canc elled via OM: Order cancelled - Patient discharged Performed By: #### L 100.0500 ####[facility] [address] [place], [address] RBC Normal 4.2-5.4 [facility] Comment on above: Result Comment: Canc elled via OM: Order cancelled - Patient discharged Performed By: #### L 100.0500 ####[facility] [address] [place], [address] RDW CV Normal 11.6-14.6 [facility] Comment on above: Result Comment: Canc elled via OM: Order cancelled - Patient discharged Performed By: #### L 100.0500 ####[facility] [address] [place], [address] RDW SD Normal 35.1-43.9 [facility] Comment on above: Result Comment: Canc elled via OM: Order cancelled - Patient discharged Performed By: #### L 100.0500 ####[facility] [address] [place], [address] WBC Normal 4.4-11.0 [facility] Comment on above: Result Comment: Canc elled via OM: Order cancelled - Patient discharged Performed By: #### L 100.0500 ####[facility] [address] [place], [address] KOrdered By: SYSTEM SYSTEM o n 08-08-2025 Potassium [Moles/Vol] 5.7 mmol/L High 3.5-5.1 AO ADM SS Comment on above: Performed By: #### M G, ANEU, CBC, BMP, ADIFF, GFR #### [facility] [address], [place] [address] LABORATORYOrdered By: Zachery Sandoval on 08-08-2025 Blood Glucose Interventions Administered agent to increase blood sugar (08/08/25 10:57 PM) [facility] Work Phone: LABORATORYOrdered By: SYSTEM SYSTEM [...] calculated value from Hemoglobin A1C and is human resources representative of the average blood glucose level in the last 2-3 month period. Normal range: less than 114 mg/dL HbA1c (Bld) [Mass fraction] 7.0 % High 4.3 - 6.4 % AO ADM SS PBNPon 08-08-2025 Natriuretic peptide B (Bld) [Mass/Vol] 4604 pg/mL High 0-450 [facility] Comment on above: Result Comment: NT-p roBNP results of less than 300 pg/mL effectively rules out acute congestive heart failure with 99% negative predictive value. Performed By: #### M G, ANEU, CBC, BMP, ADIFF, GFR #### [facility] [address], [place] [address] XR CHEST 1 VIEWon 08-08-2025 XR CHEST [...] 08/08/2025 1:14:13 PM Ordering Provider: SHUKRI DAVID Normal [facility] Basic Metabolic Profile (BMP )on 08-06-2025 BUN Normal - [facility] Comment on above: Result Comment: Canc elled via OM: Order cancelled - Patient discharged Performed By: #### L 500.2500 ####[facility] [address] [place], [address] Result Comment: Canc elled via OM: MD Ordered Performed By: #### L 500.2500, L100.0500 ####[facility] [address] [place], [address] BUN/CRE Normal - [facility] Comment on above: Result Comment: Canc elled via OM: Order cancelled - Patient discharged Performed By: #### L 500.2500 ####[facility] [address] [place], [address] Result Comment: Canc elled via OM: MD Ordered Performed By: #### L 500.2500, L100.0500 ####[facility] [address] [place], [address] Calcium Normal 7.6-11.0 [facility] Comment on above: Result Comment: Canc elled via OM: Order cancelled - Patient discharged Performed By: #### L 500.2500 ####[facility] [address] [place], [address] Result Comment: Canc elled via OM: MD Ordered Performed By: #### L 500.2500, L100.0500 ####[facility] [address] [place], [address] CL Normal 98-108 [facility] Comment on above: Result Comment: Canc elled via OM: Order cancelled - Patient discharged Performed By: #### L 500.2500 ####[facility] [address] [place], [address] Result Comment: Canc elled via OM: MD Ordered Performed By: #### L 500.2500, L100.0500 ####[facility] [address] [place], [address] CO2 Normal 21.0-32.0 [facility] Comment on above: Result Comment: Canc elled via OM: Order cancelled - Patient discharged Performed By: #### L 500.2500 ####[facility] [address] [place], [address] Result Comment: Canc elled via OM: MD Ordered Performed By: #### L 500.2500, L100.0500 ####[facility] [address] [place], [address] CREAT,SERUM Normal 0.70-1.20 [facility] Comment on above: Result Comment: Canc elled via OM: Order cancelled - Patient discharged Performed By: #### L 500.2500 ####[facility] [address] [place], [address] Result Comment: Canc elled via OM: MD Ordered Performed By: #### L 500.2500, L100.0500 ####[facility] [address] [place], [address] eGFR Normal >60 [facility] Comment on above: Result Comment: Canc elled via OM: Order cancelled - Patient discharged Performed By: #### L 500.2500 ####[facility] [address] [place], [address] Result Comment: Canc elled via OM: MD Ordered Performed By: #### L 500.2500, L100.0500 ####[facility] [address] [place], [address] GAP Normal 5-15 [facility] Comment on above: Result Comment: Canc elled via OM: Order cancelled - Patient discharged Performed By: #### L 500.2500 ####[facility] [address] [place], [address] Result Comment: Canc elled via OM: MD Ordered Performed By: #### L 500.2500, L100.0500 ####[facility] [address] [place], [address] GLU Normal 70-99 [facility] Comment on above: Result Comment: Canc elled via OM: Order cancelled - Patient discharged Performed By: #### L 500.2500 ####[facility] [address] [place], [address] Result Comment: Canc elled via OM: MD Ordered Performed By: #### L 500.2500, L100.0500 ####[facility] [address] [place], [address] Potassium Normal 3.3-5.1 [facility] Comment on above: Result Comment: Canc elled via OM: Order cancelled - Patient discharged Performed By: #### L 500.2500 ####[facility] [address] [place], [address] Result Comment: Canc elled via OM: MD Ordered Performed By: #### L 500.2500, L100.0500 ####[facility] [address] [place], [address] Basic Metabolic Profile (BMP) Normal 133-145 [facility] Comment on above: Result Comment: Canc elled via OM: Order cancelled - Patient discharged Performed By: #### L 500.2500 ####[facility] [address] [place], [address] Result Comment: Canc elled via OM: MD Ordered Performed By: #### L 500.2500, L100.0500 ####[facility] [address] [place], [address] CBC-Complete Blood Cnt No Di ffon 08-06-2025 HCT Normal 37-47 [facility] Comment on above: Result Comment: Canc elled via OM: Order cancelled - Patient discharged Performed By: #### L 100.0500 ####[facility] [address] [place], [address] HGB Normal 12.0-15.0 [facility] Comment on above: Result Comment: Canc elled via OM: Order cancelled - Patient discharged Performed By: #### L 100.0500 ####[facility] [address] [place], [address] MCH Normal 27.0-32.0 [facility] Comment on above: Result Comment: Canc elled via OM: Order cancelled - Patient discharged Performed By: #### L 100.0500 ####[facility] [address] [place], [address] MCHC Normal 32-36 [facility] Comment on above: Result Comment: Canc elled via OM: Order cancelled - Patient discharged Performed By: #### L 100.0500 ####[facility] [address] [place], [address] MCV Normal 81-99 [facility] Comment on above: Result Comment: Canc elled via OM: Order cancelled - Patient discharged Performed By: #### L 100.0500 ####[facility] [address] [place], [address] PLT Normal 150-450 [facility] Comment on above: Result Comment: Canc elled via OM: Order cancelled - Patient discharged Performed By: #### L 100.0500 ####[facility] [address] [place], [address] RBC Normal 4.2-5.4 [facility] Comment on above: Result Comment: Canc elled via OM: Order cancelled - Patient discharged Performed By: #### L 100.0500 ####[facility] [address] [place], [address] RDW CV Normal 11.6-14.6 [facility] Comment on above: Result Comment: Canc elled via OM: Order cancelled - Patient discharged Performed By: #### L 100.0500 ####[facility] [address] [place], [address] RDW SD Normal 35.1-43.9 [facility] Comment on above: Result Comment: Canc elled via OM: Order cancelled - Patient discharged Performed By: #### L 100.0500 ####[facility] [address] [place], [address] WBC Normal 4.4-11.0 [facility] Comment on above: Result Comment: Canc elled via OM: Order cancelled - Patient discharged Performed By: #### L 100.0500 ####[facility] [address] [place], [address] HCT Normal 37-47 [facility] Comment on above: Result Comment: Canc elled via OM: MD Ordered Performed By: #### L 500.2500, L100.0500 ####[facility] [address], [address] HGB Normal 12.0-15.0 [facility] Comment on above: Result Comment: Canc elled via OM: MD Ordered Performed By: #### L 500.2500, L100.0500 ####[facility] [address] [place], [address] MCH Normal 27.0-32.0 [facility] Comment on above: Result Comment: Canc elled via OM: MD Ordered Performed By: #### L 500.2500, L100.0500 ####[facility] [address] [place], [address] MCHC Normal 32-36 [facility] Comment on above: Result Comment: Canc elled via OM: MD Ordered Performed By: #### L 500.2500, L100.0500 ####[facility] [address] [place], [address] MCV Normal 81-99 [facility] Comment on above: Result Comment: Canc elled via OM: MD Ordered Performed By: #### L 500.2500, L100.0500 ####[facility] [address] [place], [address] PLT Normal 150-450 [facility] Comment on above: Result Comment: Canc elled via OM: MD Ordered Performed By: #### L 500.2500, L100.0500 ####[facility] [address] [place], [address] RBC Normal 4.2-5.4 [facility] Comment on above: Result Comment: Canc elled via OM: MD Ordered Performed By: #### L 500.2500, L100.0500 ####[facility] [address] [place], [address] RDW CV Normal 11.6-14.6 [facility] Comment on above: Result Comment: Canc elled via OM: MD Ordered Performed By: #### L 500.2500, L100.0500 ####[facility] [address] [place], [address] RDW SD Normal 35.1-43.9 [facility] Comment on above: Result Comment: Canc elled via OM: MD Ordered Performed By: #### L 500.2500, L100.0500 ####[facility] [address] [place], [address] WBC Normal 4.4-11.0 [facility] Comment on above: Result Comment: Canc elled via OM: MD Ordered Performed By: #### L 500.2500, L100.0500 ####[facility] [address] [place], [address] Anion gap in Serum or Plasma Ordered By: Antoni Argueta on 08-05-2025 Anion gap [Moles/Vol] 7 mmol/L 02-24 [facility] BUN/creatinine ratioOrdered By: Antoni Argueta on 08-05-2025 Urea nitrogen/Creatinine [Mass ratio] 17.4 mg/mg 08-01 [facility] Basic Metabolic Profile (BMP )on 08-05-2025 BUN/CRE 17.4 RATIO Normal 08-01 [facility] Comment on above: Performed By: #### L 500.2500, L100.0500 ####[facility] [address] [place], [address] Calcium [Mass/Vol] 8.2 mg/dL Normal 7.6-11.0 [facility] Comment on above: Performed By: #### L 500.2500, L100.0500 ####[facility] [address] [place], [address] Chloride [Moles/Vol] 99 mmol/L Normal 98-108 [facility] Comment on above: Performed By: #### L 500.2500, L100.0500 ####[facility] [address] [place], [address] CO2 [Moles/Vol] 27.7 mmol/L Normal 21.0-32.0 [facility] Comment on above: Performed By: #### L 500.2500, L100.0500 ####[facility] [address] [place], [address] Creatinine [Mass/Vol] 1.60 mg/dL High 0.70-1.20 [facility] Comment on above: Performed By: #### L 500.2500, L100.0500 ####[facility] [address] [place], [address] ECRCL 31.72 ml/min Low 50-250 [facility] Comment on above: Performed By: #### L 500.2500, L100.0500 ####[facility] [address] [place], [address] GAP 7 Normal 5-15 [facility] Comment on above: Performed By: #### L 500.2500, L100.0500 ####[facility] [address] [place], [address] GFR/1.73 sq M.predicted among non-blacks MDRD (S/P/Bld) [Vol rate/Area] 33 mL/min/{1.73_m2} Low >60 [facility] Comment on above: Result Comment: mL/m in/1.73m2 CKD-EPI Creatinine Equation (2020) Performed By: #### L 500.2500, L100.0500 ####[facility] [address] [place], [address] Glucose [Mass/Vol] 270 mg/dL High 70-99 [facility] Comment on above: Performed By: #### L 500.2500, L100.0500 ####[facility] [address] [place], [address] Potassium [Moles/Vol] 5.5 mmol/L High 3.3-5.1 [facility] Comment on above: Performed By: #### L 500.2500, L100.0500 ####[facility] [address] [place], [address] Sodium [Moles/Vol] 134 mmol/L Normal 133-145 [facility] Comment on above: Performed By: #### L 500.2500, L100.0500 ####[facility] [address] [place], [address] Urea nitrogen [Mass/Vol] 28 mg/dL High 4-19 [facility] Comment on above: Performed By: #### L 500.2500, L100.0500 ####[facility] [address] [place], [address] BUN Normal 4-19 [facility] Comment on above: Result Comment: Canc elled via OM: MD Ordered Performed By: #### L 500.2500, L100.0500 ####[facility] [address] [place], [address] BUN/CRE Normal 10-20 [facility] Comment on above: Result Comment: Canc elled via OM: MD Ordered Performed By: #### L 500.2500, L100.0500 ####[facility] [address] [place], [address] Calcium Normal 7.6-11.0 [facility] Comment on above: Result Comment: Canc elled via OM: MD Ordered Performed By: #### L 500.2500, L100.0500 ####[facility] [address] [place], [address] CL Normal 98-108 [facility] Comment on above: Result Comment: Canc elled via OM: MD Ordered Performed By: #### L 500.2500, L100.0500 ####[facility] [address] [place], [address] CO2 Normal 21.0-32.0 [facility] Comment on above: Result Comment: Canc elled via OM: MD Ordered Performed By: #### L 500.2500, L100.0500 ####[facility] [address] [place], [address] CREAT,SERUM Normal 0.70-1.20 [facility] Comment on above: Result Comment: Canc elled via OM: MD Ordered Performed By: #### L 500.2500, L100.0500 ####[facility] [address] [place], [address] eGFR Normal >60 [facility] Comment on above: Result Comment: Canc elled via OM: MD Ordered Performed By: #### L 500.2500, L100.0500 ####[facility] [address] [place], [address] GAP Normal 5-15 [facility] Comment on above: Result Comment: Canc elled via OM: MD Ordered Performed By: #### L 500.2500, L100.0500 ####[facility] [address] [place], [address] GLU Normal 70-99 [facility] Comment on above: Result Comment: Canc elled via OM: MD Ordered Performed By: #### L 500.2500, L100.0500 ####[facility] [address] [place], [address] Potassium Normal 3.3-5.1 [facility] Comment on above: Result Comment: Canc elled via OM: MD Ordered Performed By: #### L 500.2500, L100.0500 ####[facility] [address] [place], [address] Basic Metabolic Profile (BMP) Normal 133-145 [facility] Comment on above: Result Comment: Estefani falcon via OM: Ordered Performed By: #### L 500.2500, L100.0500 ####[facility] [address] [place], [address] Bedside Glucoseon 08-05-2025 FINGERSTICK GLU 325 mg/dL High 74-106 [facility] Comment on above: Result Comment: RANDAL GEMENT OF PATIENT CARE PER NURSING PROTOCOL Performed By: #### L 501.080 ####[facility] [address] [place], [address] FINGERSTICK GLU 199 mg/dL High 74-106 [facility] Comment on above: Result Comment: RANDAL GEMENT OF PATIENT CARE PER NURSING PROTOCOL Performed By: #### L 501.080 ####[facility] [address] [place], [address] FINGERSTICK GLU 349 mg/dL High 74-106 [facility] Comment on above: Result Comment: RANDAL GEMENT OF PATIENT CARE PER NURSING PROTOCOL Performed By: #### L 501.080 ####[facility] [address] [place], [address] CBC-Complete Blood Cnt No Di ffon 08-05-2025 Erythrocyte distribution width (RBC) [Ratio] 14.3 % Normal 11.6-14.6 [facility] Comment on above: Performed By: #### L 500.2500, L100.0500 ####[facility] [address] [place], [address] Hematocrit (Bld) [Volume fraction] 26.2 % Low 37-47 [facility] Comment on above: Performed By: #### L 500.2500, L100.0500 ####[facility] [address] [place], [address] Hemoglobin (Bld) [Mass/Vol] 8.1 g/dL Low 12.0-15.0 [facility] Comment on above: Performed By: #### L 500.2500, L100.0500 ####[facility] [address] [place], [address] MCH (RBC) [Entitic mass] 30.3 pg Normal 27.0-32.0 [facility] Comment on above: Performed By: #### L 500.2500, L100.0500 ####[facility] [address] [place], [address] MCHC (RBC) [Mass/Vol] 30.9 g/dL Low 32-36 [facility] Comment on above: Performed By: #### L 500.2500, L100.0500 ####[facility] [address] [place], [address] MCV (RBC) [Entitic vol] 98.1 fL Normal 81-99 [facility] Comment on above: Performed By: #### L 500.2500, L100.0500 ####[facility] [address] [place], [address] Platelet mean volume (Bld) [Entitic vol] 10.2 fL Normal 6.2-12.0 [facility] Comment on above: Performed By: #### L 500.2500, L100.0500 ####[facility] [address] [place], [address] Platelets (Bld) [#/Vol] 211 10*3/uL Normal 150-450 [facility] Comment on above: Performed By: #### L 500.2500, L100.0500 ####[facility] [address] [place], [address] RBC (Bld) [#/Vol] 2.67 10*6/uL Low 4.2-5.4 [facility] Comment on above: Performed By: #### L 500.2500, L100.0500 ####[facility] [address] [place], [address] RDW SD 50.6 fl High 35.1-43.9 [facility] Comment on above: Performed By: #### L 500.2500, L100.0500 ####[facility] [address] [place], [address] WBC (Bld) [#/Vol] 8.8 10*3/uL Normal 4.4-11.0 [facility] Comment on above: Performed By: #### L 500.2500, L100.0500 ####[facility] [address] [place], [address] HCT Normal 37-47 [facility] Comment on above: Result Comment: Canc elled via OM: MD Ordered Performed By: #### L 500.2500, L100.0500 ####[facility] [address] [place], [address] HGB Normal 12.0-15.0 [facility] Comment on above: Result Comment: Canc elled via OM: MD Ordered Performed By: #### L 500.2500, L100.0500 ####[facility] [address] [place], [address] MCH Normal 27.0-32.0 [facility] Comment on above: Result Comment: Canc elled via OM: MD Ordered Performed By: #### L 500.2500, L100.0500 ####[facility] [address] [place], [address] MCHC Normal 32-36 [facility] Comment on above: Result Comment: Canc elled via OM: MD Ordered Performed By: #### L 500.2500, L100.0500 ####[facility] [address], [address] MCV Normal 81-99 [facility] Comment on above: Result Comment: Canc elled via OM: MD Ordered Performed By: #### L 500.2500, L100.0500 ####[facility] [address] [place], [address] PLT Normal 150-450 [facility] Comment on above: Result Comment: Canc elled via OM: MD Ordered Performed By: #### L 500.2500, L100.0500 ####[facility] [address] [place], [address] RBC Normal 4.2-5.4 [facility] Comment on above: Result Comment: Canc elled via OM: MD Ordered Performed By: #### L 500.2500, L100.0500 ####[facility] [address] [place], [address] RDW CV Normal 11.6-14.6 [facility] Comment on above: Result Comment: Canc elled via OM: MD Ordered Performed By: #### L 500.2500, L100.0500 ####[facility] [address] [place], [address] RDW SD Normal 35.1-43.9 [facility] Comment on above: Result Comment: Canc elled via OM: MD Ordered Performed By: #### L 500.2500, L100.0500 ####[facility] [address] [place], [address] WBC Normal 4.4-11.0 [facility] Comment on above: Result Comment: Canc elled via OM: MD Ordered Performed By: #### L 500.2500, L100.0500 ####[facility] [address] [place], [address] Carbon dioxide, total [Moles /volume] in Central venous bloodOrdered By: Antoni Argueta on 08-05-2025 CO2 [Moles/Vol] 27.7 mmol/L 21.0-32.0 [facility] Chloride assayOrdered By: Agus Argueta on 08-05-2025 Chloride [Moles/Vol] 99 mmol/L 98-108 [facility] Erythrocyte distribution wid th ratioOrdered By: Antoni Argueta on 08-05-2025 Erythrocyte distribution width (RBC) [Ratio] 14.3 % 11.6-14.6 [facility] Erythrocyte distribution wid th standard deviationOrdered By: Antoni Argueta on 08-05-2025 Erythrocyte distribution width (RBC) [Ratio] 50.6 fl High 35.1-43.9 [facility] Glomerular filtration rate ( GFR) estimation/1.73 sq m using serum, plasma, or whole bOrdered By: Antoni Argueta on 08-05-2025 GFR/1.73 sq M.predicted among non-blacks MDRD (S/P/Bld) [Vol rate/Area] 33 mL/min/{1.73_m2} Low >60 [facility] de[facility]dered By: Antoni Argueta on 08-05-2025 Glucose [Mass/Vol] 325 mg/dL High 74-106 [facility] Hematocrit Auto (Bld) [Volum e fraction]Ordered By: Antoni Argueta on 08-05-2025 Hematocrit (Bld) [Volume fraction] 26.2 % Low 37-47 [facility] Hemoglobin measurementOrdere d By: Antoni Argueta on 08-05-2025 Hemoglobin (Bld) [Mass/Vol] 8.1 g/dL Low 12.0-15.0 [facility] MCV (mean corpuscular volume ) determinationOrdered By: Antoni Argueta on 08-05-2025 MCV (RBC) [Entitic vol] 98.1 fL 81-99 [facility] Mean corpuscular hemoglobin (MCH) determinationOrdered By: Antoni Argueta on 08-05-2025 MCH (RBC) [Entitic mass] 30.3 pg 27.0-32.0 [facility] Platelet countOrdered By: Agus Argueta on 08-05-2025 Platelets (Bld) [#/Vol] 211 10*3/uL 150-450 [facility] Potassium measurement (mass/ volume)Ordered By: Antoni Argueta on 08-05-2025 Potassium (Unsp spec) [Mass/Vol] 5.5 mmol/L High 3.3-5.1 [facility] RBC Auto (Bld) [#/Vol]Ordere d By: Antoni Argueta on 08-05-2025 RBC (Bld) [#/Vol] 2.67 10*6/uL Low 4.2-5.4 [facility] Serum creatinine measurement (mass/volume)Ordered By: Antoni Argueta on 08-05-2025 Creatinine [Mass/Vol] 1.60 mg/dL High 0.70-1.20 [facility] Serum glucose measurement (m ass/volume)Ordered By: Antoni Argueta on 08-05-2025 Glucose [Mass/Vol] 270 mg/dL High 70-99 [facility] Serum or plasma calcium merritt urement (mass/volume)Ordered By: Antoni Argueta on 08-05-2025 Calcium [Mass/Vol] 8.2 mg/dL 7.6-11.0 [facility] Serum or plasma urea nitroge n measurement (mass/volume)Ordered By: Antoni Argueta on 08-05-2025 Urea nitrogen [Mass/Vol] 28 mg/dL High 4-19 [facility] Sodium levelOrdered By: Patrick Argueta on 08-05-2025 Sodium [Moles/Vol] 134 mmol/L 133-145 [facility] White blood cell (WBC) count Ordered By: Antoni Argueta on 08-05-2025 WBC (Bld) [#/Vol] 8.8 10*3/uL 4.4-11.0 [facility] Basic Metabolic Profile (BMP )on 08-04-2025 BUN/CRE 16.9 [facility] Normal - [facility] [place] Comment on above: Performed By: #### L 500.2500 ####[facility] [address] [place], [place], [phone] Calcium [Mass/Vol] 8.2 mg/dL Normal 7.6-11.0 [facility] Comment on above: Performed By: #### L 500.2500 ####[facility] [address] [place], [address] Chloride [Moles/Vol] 103 mmol/L Normal 98-108 [facility] Comment on above: Performed By: #### L 500.2500 ####[facility] [address] [place], [address] CO2 [Moles/Vol] 26.2 mmol/L Normal 21.0-32.0 [facility] Comment on above: Performed By: #### L 500.2500 ####[facility] [address] [place], [address] Creatinine [Mass/Vol] 1.37 mg/dL High 0.70-1.20 [facility] Comment on above: Performed By: #### L 500.2500 ####[facility] [address] [place], [address] ECRCL 36.94 ml/min Low 50-250 [facility] Comment on above: Performed By: #### L 500.2500 ####[facility] [address] [place], [address] GAP 9 Normal 5-15 [facility] Comment on above: Performed By: #### L 500.2500 ####[facility] [address] [place], [address] GFR/1.73 sq M.predicted among non-blacks MDRD (S/P/Bld) [Vol rate/Area] 39 mL/min/{1.73_m2} Low >60 [facility] Comment on above: Result Comment: mL/m in/1.73m2 CKD-EPI Creatinine Equation (2020) Performed By: #### L 500.2500 ####[facility] [address] [place], [address] Glucose [Mass/Vol] 248 mg/dL High 70-99 [facility] Comment on above: Performed By: #### L 500.2500 ####[facility] [address] [place], [address] Potassium [Moles/Vol] 5.0 mmol/L Normal 3.3-5.1 [facility] Comment on above: Performed By: #### L 500.2500 ####[facility] [address] [place], [address] Sodium [Moles/Vol] 138 mmol/L Normal 133-145 [facility] Comment on above: Performed By: #### L 500.2500 ####[facility] [address] [place], [address] Urea nitrogen [Mass/Vol] 23 mg/dL High 4-19 [facility] Comment on above: Performed By: #### L 500.2500 ####[facility] [address] [place], [address] BUN Normal 4-19 [facility] Comment on above: Result Comment: Canc elled via OM: MD Ordered Performed By: #### L 500.2500, L100.0500 ####[facility] [address] [place], [address] BUN/CRE Normal 10-20 [facility] Comment on above: Result Comment: Canc elled via OM: MD Ordered Performed By: #### L 500.2500, L100.0500 ####[facility] [address] [place], [address] Calcium Normal 7.6-11.0 [facility] Comment on above: Result Comment: Canc elled via OM: MD Ordered Performed By: #### L 500.2500, L100.0500 ####[facility] [address] [place], [address] CL Normal 98-108 [facility] Comment on above: Result Comment: Canc elled via OM: MD Ordered Performed By: #### L 500.2500, L100.0500 ####[facility] [address] [place], [address] CO2 Normal 21.0-32.0 [facility] Comment on above: Result Comment: Canc elled via OM: MD Ordered Performed By: #### L 500.2500, L100.0500 ####[facility] [address] [place], [address] CREAT,SERUM Normal 0.70-1.20 [facility] Comment on above: Result Comment: Canc elled via OM: MD Ordered Performed By: #### L 500.2500, L100.0500 ####[facility] [address] [place], [address] eGFR Normal >60 [facility] Comment on above: Result Comment: Canc elled via OM: MD Ordered Performed By: #### L 500.2500, L100.0500 ####[facility] [address] [place], [address] GAP Normal 5-15 [facility] Comment on above: Result Comment: Canc elled via OM: MD Ordered Performed By: #### L 500.2500, L100.0500 ####[facility] [address] [place], [address] GLU Normal 70-99 [facility] Comment on above: Result Comment: Canc elled via OM: MD Ordered Performed By: #### L 500.2500, L100.0500 ####[facility] [address] [place], [address] Potassium Normal 3.3-5.1 [facility] Comment on above: Result Comment: Canc elled via OM: MD Ordered Performed By: #### L 500.2500, L100.0500 ####[facility] [address] [place], [address] Basic Metabolic Profile (BMP) Normal 133-145 [facility] Comment on above: Result Comment: Canc elled via OM: MD Ordered Performed By: #### L 500.2500, L100.0500 ####[facility] [address] [place], [address] Bedside Glucoseon 08-04-2025 FINGERSTICK GLU 288 mg/dL High -106 [facility] Comment on above: Result Comment: RANDAL GEMENT OF PATIENT CARE PER NURSING PROTOCOL Performed By: #### L 501.080 ####[facility] [address] [place], [address] FINGERSTICK GLU 167 mg/dL [facility]106 [facility] Comment on above: Result Comment: RANDAL GEMENT OF PATIENT CARE PER NURSING PROTOCOL Performed By: #### L 501.080 ####[facility] [address] [place], [address] FINGERSTICK GLU 167 mg/dL [facility]106 [facility] Comment on above: Result Comment: RANDAL GEMENT OF PATIENT CARE PER NURSING PROTOCOL Performed By: #### L 501.080 ####[facility] [address] [place], [address] FINGERSTICK GLU 279 mg/dL [facility]106 [facility] Comment on above: Result Comment: RANDAL GEMENT OF PATIENT CARE PER NURSING PROTOCOL Performed By: #### L 501.080 ####[facility] [address] [place], [address] FINGERSTICK GLU 266 mg/dL High [address] [place] [address] Comment on above: Result Comment: RANDAL GEMENT OF PATIENT CARE PER NURSING PROTOCOL Performed By: #### L 501.080 ####[facility] [address] [place], [address] CBC-Complete Blood Cnt No Di ffon 08-04-2025 Erythrocyte distribution width (RBC) [Ratio] 14.3 % Normal 11.6-14.6 [facility] Comment on above: Performed By: #### L 100.0500 ####[facility] [address] [place], [address] Hematocrit (Bld) [Volume fraction] 25.5 % Low 37-47 [facility] Comment on above: Performed By: #### L 100.0500 ####[facility] [address] [place], [address] Hemoglobin (Bld) [Mass/Vol] 7.9 g/dL Low 12.0-15.0 [facility] Comment on above: Performed By: #### L 100.0500 ####[facility] [address] [place], [address] MCH (RBC) [Entitic mass] 30.5 pg Normal 27.0-32.0 [facility] Comment on above: Performed By: #### L 100.0500 ####[facility] [address] [place], [address] MCHC (RBC) [Mass/Vol] 31.0 g/dL Low 32-36 [facility] Comment on above: Performed By: #### L 100.0500 ####[facility] [address] [place], [address] MCV (RBC) [Entitic vol] 98.5 fL Normal 81-99 [facility] Comment on above: Performed By: #### L 100.0500 ####[facility] [address] [place], [address] Platelet mean volume (Bld) [Entitic vol] 10.4 fL Normal 6.2-12.0 [facility] Comment on above: Performed By: #### L 100.0500 ####[facility] [address] [place], [address] Platelets (Bld) [#/Vol] 227 10*3/uL Normal 150-450 [facility] Comment on above: Performed By: #### L 100.0500 ####[facility] [address] [place], [address] RBC (Bld) [#/Vol] 2.59 10*6/uL Low 4.2-5.4 [facility] Comment on above: Performed By: #### L 100.0500 ####[facility] [address] [place], [address] RDW SD 49.9 fl High 35.1-43.9 [facility] Comment on above: Performed By: #### L 100.0500 ####[facility] [address] [place], [address] WBC (Bld) [#/Vol] 9.4 10*3/uL Normal 4.4-11.0 [facility] Comment on above: Performed By: #### L 100.0500 ####[facility] [address] [place], [address] HCT Normal 37-47 [facility] Comment on above: Result Comment: Canc elled via OM: MD Ordered Performed By: #### L 500.2500, L100.0500 ####[facility] [address] [place], [address] HGB Normal 12.0-15.0 [facility] Comment on above: Result Comment: Canc elled via OM: MD Ordered Performed By: #### L 500.2500, L100.0500 ####[facility] [address] [place], [address] MCH Normal 27.0-32.0 [facility] Comment on above: Result Comment: Canc elled via OM: MD Ordered Performed By: #### L 500.2500, L100.0500 ####[facility] [address] [place], [address] MCHC Normal 32-36 [facility] Comment on above: Result Comment: Canc elled via OM: MD Ordered Performed By: #### L 500.2500, L100.0500 ####[facility] [address], [address] MCV Normal 81-99 [facility] Comment on above: Result Comment: Canc elled via OM: MD Ordered Performed By: #### L 500.2500, L100.0500 ####[facility] [address], [address] PLT Normal 150-450 [facility] Comment on above: Result Comment: Canc elled via OM: MD Ordered Performed By: #### L 500.2500, L100.0500 ####[facility] [address] [place], [address] RBC Normal 4.2-5.4 [facility] Comment on above: Result Comment: Canc elled via OM: MD Ordered Performed By: #### L 500.2500, L100.0500 ####[facility] [address] [place], [address] RDW CV Normal 11.6-14.6 [facility] Comment on above: Result Comment: Canc elled via OM: MD Ordered Performed By: #### L 500.2500, L100.0500 ####[facility] [address] [place], [address] RDW SD Normal 35.1-43.9 [facility] Comment on above: Result Comment: Canc elled via OM: MD Ordered Performed By: #### L 500.2500, L100.0500 ####[facility] [address] [place], [address] WBC Normal 4.4-11.0 [facility] Comment on above: Result Comment: Canc elled via OM: MD Ordered Performed By: #### L 500.2500, L100.0500 ####[facility] [address] [place], [address] Modified Barium Swallow Stud yon 08-04-2025 Modified Barium Swallow Study Normal [facility] Surgical pathology reportOrd ered By: Yasmin Tabares on 08-04-2025 Surgical pathology study [facility] Basic Metabolic Profile (BMP )on 08-03-2025 BUN Normal - [facility] Comment on above: Result Comment: Canc elled via OM: MD Ordered Performed By: #### L 500.2500, L100.0500 ####[facility] [address] [place], [address] BUN/CRE Normal - [facility] Comment on above: Result Comment: Canc elled via OM: MD Ordered Performed By: #### L 500.2500, L100.0500 ####[facility] [address] [place], [address] Calcium Normal 7.6-11.0 [facility] Comment on above: Result Comment: Canc elled via OM: MD Ordered Performed By: #### L 500.2500, L100.0500 ####[facility] [address] [place], [address] CL Normal 98-108 [facility] Comment on above: Result Comment: Canc elled via OM: MD Ordered Performed By: #### L 500.2500, L100.0500 ####[facility] [address] [place], [address] CO2 Normal 21.0-32.0 [facility] Comment on above: Result Comment: Canc elled via OM: MD Ordered Performed By: #### L 500.2500, L100.0500 ####[facility] [address] [place], [address] CREAT,SERUM Normal 0.70-1.20 [facility] Comment on above: Result Comment: Canc elled via OM: MD Ordered Performed By: #### L 500.2500, L100.0500 ####[facility] [address] [place], [address] eGFR Normal >60 [facility] Comment on above: Result Comment: Canc elled via OM: MD Ordered Performed By: #### L 500.2500, L100.0500 ####[facility] [address] [place], [address] GAP Normal 5-15 [facility] Comment on above: Result Comment: Canc elled via OM: MD Ordered Performed By: #### L 500.2500, L100.0500 ####[facility] [address] [place], [address] GLU Normal 70-99 [facility] Comment on above: Result Comment: Canc elled via OM: MD Ordered Performed By: #### L 500.2500, L100.0500 ####[facility] [address] [place], [address] Potassium Normal 3.3-5.1 [facility] Comment on above: Result Comment: Canc elled via OM: MD Ordered Performed By: #### L 500.2500, L100.0500 ####[facility] [address] [place], [address] Basic Metabolic Profile (BMP) Normal 133-145 [facility] Comment on above: Result Comment: Canc elled via OM: MD Ordered Performed By: #### L 500.2500, L100.0500 ####[facility] [address] [place], [address] Bedside Glucoseon 08-03-2025 FINGERSTICK GLU 289 mg/dL High 74-106 [facility] Comment on above: Result Comment: RANDAL GEMENT OF PATIENT CARE PER NURSING PROTOCOL Performed By: #### L 501.080 ####[facility] [address] [place], [address] FINGERSTICK GLU 298 mg/dL High 74-106 [facility] Comment on above: Result Comment: RANDAL GEMENT OF PATIENT CARE PER NURSING PROTOCOL Performed By: #### L 501.080 ####[facility] [address] [place], [address] FINGERSTICK GLU 221 mg/dL High 74-106 [facility] Comment on above: Result Comment: RANDAL GEMENT OF PATIENT CARE PER NURSING PROTOCOL Performed By: #### L 501.080 ####[facility] [address] [place], [address] FINGERSTICK GLU 154 mg/dL High 74-106 [facility] Comment on above: Result Comment: RANDAL GEMENT OF PATIENT CARE PER NURSING PROTOCOL Performed By: #### L 501.080 ####[facility] [address] [place], [address] CBC W/Diff, Automatedon 10- PATH REV Reviewed Normal [facility] Comment on above: Result Comment: SEE REPORT IN PATIENT'S EMR AMENDED REPORT 08/03/25 1419 PATH REV previously reported as: February Performed By: #### L 100.0100, L500.2500 ####[facility] [address] [place], [address] CBC-Complete Blood Cnt No Di ffon 08-03-2025 HCT Normal 37-47 [facility] Comment on above: Result Comment: Canc elled via OM: MD Ordered Performed By: #### L 500.2500, L100.0500 ####[facility] [address] [place], [address] HGB Normal 12.0-15.0 [facility] Comment on above: Result Comment: Canc elled via OM: MD Ordered Performed By: #### L 500.2500, L100.0500 ####[facility] [address] [place], [address] MCH Normal 27.0-32.0 [facility] Comment on above: Result Comment: Canc elled via OM: MD Ordered Performed By: #### L 500.2500, L100.0500 ####[facility] [address] [place], [address] MCHC Normal 32-36 [facility] Comment on above: Result Comment: Canc elled via OM: MD Ordered Performed By: #### L 500.2500, L100.0500 ####[facility] [address] [place], [address] MCV Normal 81-99 [facility] Comment on above: Result Comment: Canc elled via OM: MD Ordered Performed By: #### L 500.2500, L100.0500 ####[facility] [address] [place], [address] PLT Normal 150-450 [facility] Comment on above: Result Comment: Canc elled via OM: MD Ordered Performed By: #### L 500.2500, L100.0500 ####[facility] [address] [place], [address] RBC Normal 4.2-5.4 [facility] Comment on above: Result Comment: Canc elled via OM: MD Ordered Performed By: #### L 500.2500, L100.0500 ####[facility] [address] [place], [address] RDW CV Normal 11.6-14.6 [facility] Comment on above: Result Comment: Canc elled via OM: MD Ordered Performed By: #### L 500.2500, L100.0500 ####[facility] [address] [place], [address] RDW SD Normal 35.1-43.9 [facility] Comment on above: Result Comment: Canc elled via OM: MD Ordered Performed By: #### L 500.2500, L100.0500 ####[facility] [address] [place], [address] WBC Normal 4.4-11.0 [facility] Comment on above: Result Comment: Estefani falcon via OM: Ordered Performed By: #### L 500.2500, L100.0500 ####[facility] [address] [place], [address] MR/PN.GIon 08-03-2025 MR/PN.GI Normal [facility] Basic Metabolic Profile (BMP )on 08-02-2025 BUN/CRE 18.5 RATIO Normal 08-01 [facility] Comment on above: Performed By: #### L 500.2500 ####[facility] [address] [place], [address] Calcium [Mass/Vol] 8.4 mg/dL Normal 7.6-11.0 [facility] Comment on above: Performed By: #### L 500.2500 ####[facility] [address] [place], [address] Chloride [Moles/Vol] 108 mmol/L Normal 98-108 [facility] Comment on above: Performed By: #### L 500.2500 ####[facility] [address] [place], [address] CO2 [Moles/Vol] 21.9 mmol/L Normal 21.0-32.0 [facility] Comment on above: Performed By: #### L 500.2500 ####[facility] [address] [place], [address] Creatinine [Mass/Vol] 1.40 mg/dL High 0.70-1.20 [facility] Comment on above: Performed By: #### L 500.2500 ####[facility] [address] [place], [address] ECRCL 36.34 ml/min Low 50-250 [facility] Comment on above: Performed By: #### L 500.2500 ####[facility] [address] [place], [address] GAP 10 Normal 5-15 [facility] Comment on above: Performed By: #### L 500.2500 ####[facility] [address] [place], [address] GFR/1.73 sq M.predicted among non-blacks MDRD (S/P/Bld) [Vol rate/Area] 38 mL/min/{1.73_m2} Low >60 [facility] Comment on above: Result Comment: mL/m in/1.73m2 CKD-EPI Creatinine Equation (2020) Performed By: #### L 500.2500 ####[facility] [address] [place], [address] Glucose [Mass/Vol] 278 mg/dL High 70-99 [facility] Comment on above: Performed By: #### L 500.2500 ####[facility] [address] [place], [address] Potassium [Moles/Vol] 4.2 mmol/L Normal 3.3-5.1 [facility] Comment on above: Performed By: #### L 500.2500 ####[facility] [address] [place], [address] Sodium [Moles/Vol] 139 mmol/L Normal 133-145 [facility] Comment on above: Performed By: #### L 500.2500 ####[facility] [address] [place], [address] Urea nitrogen [Mass/Vol] 26 mg/dL High 4-19 [facility] Comment on above: Performed By: #### L 500.2500 ####[facility] [address] [place], [address] BUN Normal 4-19 [facility] Comment on above: Result Comment: Estefani falcon via OM: Ordered Performed By: #### L 100.0500, L500.2500 ####[facility] [address] [place], [address] BUN/CRE Normal 10-20 [facility] Comment on above: Result Comment: Canc elled via OM: MD Ordered Performed By: #### L 100.0500, L500.2500 ####[facility] [address] [place], [address] Calcium Normal 7.6-11.0 [facility] Comment on above: Result Comment: Canc elled via OM: MD Ordered Performed By: #### L 100.0500, L500.2500 ####[facility] [address] [place], [address] CL Normal 98-108 [facility] Comment on above: Result Comment: Canc elled via OM: MD Ordered Performed By: #### L 100.0500, L500.2500 ####[facility] [address] [place], [address] CO2 Normal 21.0-32.0 [facility] Comment on above: Result Comment: Canc elled via OM: MD Ordered Performed By: #### L 100.0500, L500.2500 ####[facility] [address] [place], [address] CREAT,SERUM Normal 0.70-1.20 [facility] Comment on above: Result Comment: Canc elled via OM: MD Ordered Performed By: #### L 100.0500, L500.2500 ####[facility] [address] [place], [address] eGFR Normal >60 [facility] Comment on above: Result Comment: Canc elled via OM: MD Ordered Performed By: #### L 100.0500, L500.2500 ####[facility] [address] [place], [address] GAP Normal 5-15 [facility] Comment on above: Result Comment: Canc elled via OM: MD Ordered Performed By: #### L 100.0500, L500.2500 ####[facility] [address] [place], [address] GLU Normal 70-99 [facility] Comment on above: Result Comment: Canc elled via OM: MD Ordered Performed By: #### L 100.0500, L500.2500 ####[facility] [address] [place], [address] Potassium Normal 3.3-5.1 [facility] Comment on above: Result Comment: Canc elled via OM: MD Ordered Performed By: #### L 100.0500, L500.2500 ####[facility] [address] [place], [address] Basic Metabolic Profile (BMP) Normal 133-145 [facility] Comment on above: Result Comment: Canc elled via OM: MD Ordered Performed By: #### L 100.0500, L500.2500 ####[facility] [address] [place], [address] Bedside Glucoseon 08-02-2025 FINGERSTICK GLU 153 mg/dL High 74-106 [facility] Comment on above: Result Comment: RANDAL GEMENT OF PATIENT CARE PER NURSING PROTOCOL Performed By: #### L 501.080 ####[facility] [address] [place], [address] FINGERSTICK GLU 308 mg/dL High 74-106 [facility] Comment on above: Result Comment: RANDAL GEMENT OF PATIENT CARE PER NURSING PROTOCOL Performed By: #### L 501.080 ####[facility] [address] [place], [address] FINGERSTICK GLU 247 mg/dL High 74-106 [facility] Comment on above: Result Comment: RANDAL GEMENT OF PATIENT CARE PER NURSING PROTOCOL Performed By: #### L 501.080 ####[facility] [address] [place], [address] FINGERSTICK GLU 139 mg/dL High 74-106 [facility] Comment on above: Result Comment: RANDAL CARTER OF PATIENT CARE PER NURSING PROTOCOL Performed By: #### L 501.080 ####[facility] [address] [place], [address] CBC-Complete Blood Cnt No Di ffon 08-02-2025 Erythrocyte distribution width (RBC) [Ratio] 14.6 % Normal 11.6-14.6 [facility] Comment on above: Performed By: #### L 100.0500 ####[facility] [address] [place], [address] Hematocrit (Bld) [Volume fraction] 29.0 % Low 37-47 [facility] Comment on above: Performed By: #### L 100.0500 ####[facility] [place] [address] [place], [address] Hemoglobin (Bld) [Mass/Vol] 8.9 g/dL Low 12.0-15.0 [facility] Comment on above: Performed By: #### L 100.0500 ####[facility] [address] [place], [address] MCH (RBC) [Entitic mass] 30.6 pg Normal 27.0-32.0 [facility] Comment on above: Performed By: #### L 100.0500 ####[facility] [address] [place], [address] MCHC (RBC) [Mass/Vol] 30.7 g/dL Low 32-36 [facility] Comment on above: Performed By: #### L 100.0500 ####[facility] [address] [place], [address] MCV (RBC) [Entitic vol] 99.7 fL High 81-99 [facility] Comment on above: Performed By: #### L 100.0500 ####[facility] [address] [place], [address] Platelet mean volume (Bld) [Entitic vol] 10.1 fL Normal 6.2-12.0 [facility] Comment on above: Performed By: #### L 100.0500 ####[facility] [address] [place], [address] Platelets (Bld) [#/Vol] 251 10*3/uL Normal 150-450 [facility] Comment on above: Performed By: #### L 100.0500 ####[facility] [address] [place], [address] RBC (Bld) [#/Vol] 2.91 10*6/uL Low 4.2-5.4 [facility] Comment on above: Performed By: #### L 100.0500 ####[facility] [address] [place], [address] RDW SD 51.9 fl High 35.1-43.9 [facility] Comment on above: Performed By: #### L 100.0500 ####[facility] [address] [place], [address] WBC (Bld) [#/Vol] 9.1 10*3/uL Normal 4.4-11.0 [facility] Comment on above: Performed By: #### L 100.0500 ####[facility] [address] [place], [address] HCT Normal 37-47 [facility] Comment on above: Result Comment: Estefnai elled via OM: MD Ordered Performed By: #### L 100.0500, L500.2500 ####[facility] [address] [place], [address] HGB Normal 12.0-15.0 [facility] Comment on above: Result Comment: Canc elled via OM: MD Ordered Performed By: #### L 100.0500, L500.2500 ####[facility] [address] [place], [address] MCH Normal 27.0-32.0 [facility] Comment on above: Result Comment: Canc elled via OM: MD Ordered Performed By: #### L 100.0500, L500.2500 ####[facility] [address] [place], [address] MCHC Normal 32-36 [facility] Comment on above: Result Comment: Canc elled via OM: MD Ordered Performed By: #### L 100.0500, L500.2500 ####[facility] [address] [place], [address] MCV Normal 81-99 [facility] Comment on above: Result Comment: Canc elled via OM: MD Ordered Performed By: #### L 100.0500, L500.2500 ####[facility] [address] [place], [address] PLT Normal 150-450 [facility] Comment on above: Result Comment: Canc elled via OM: MD Ordered Performed By: #### L 100.0500, L500.2500 ####[facility] [address] [place], [address] RBC Normal 4.2-5.4 [facility] Comment on above: Result Comment: Canc elled via OM: MD Ordered Performed By: #### L 100.0500, L500.2500 ####[facility] [address] [place], [address] RDW CV Normal 11.6-14.6 [facility] Comment on above: Result Comment: Canc elled via OM: MD Ordered Performed By: #### L 100.0500, L500.2500 ####[facility] [address] [place], [address] RDW SD Normal 35.1-43.9 [facility] Comment on above: Result Comment: Estefani falcon via OM: MD Ordered Performed By: #### L 100.0500, L500.2500 ####[facility] [address] [place], [address] WBC Normal 4.4-11.0 [facility] Comment on above: Result Comment: Estefani falcon via OM: MD Ordered Performed By: #### L 100.0500, L500.2500 ####[facility] [address] [place], [address] Basic Metabolic Profile (BMP )on 08-01-2025 BUN/CRE 19.2 RATIO Normal 08-01 [facility] Comment on above: Performed By: #### L 500.2500, L100.0500 ####[facility] [address] [place], [address] Calcium [Mass/Vol] 8.3 mg/dL Normal 7.6-11.0 [facility] Comment on above: Performed By: #### L 500.2500, L100.0500 ####[facility] [address] [place], [address] Chloride [Moles/Vol] 109 mmol/L High 98-108 [facility] Comment on above: Performed By: #### L 500.2500, L100.0500 ####[facility] [address] [place], [address] CO2 [Moles/Vol] 21.6 mmol/L Normal 21.0-32.0 [facility] Comment on above: Performed By: #### L 500.2500, L100.0500 ####[facility] [address] [place], [address] Creatinine [Mass/Vol] 1.42 mg/dL High 0.70-1.20 [facility] Comment on above: Performed By: #### L 500.2500, L100.0500 ####[facility] [address] [place], [address] ECRCL 35.84 ml/min Low 50-250 [facility] Comment on above: Performed By: #### L 500.2500, L100.0500 ####[facility] [address] [place], [address] GAP 9 Normal 5-15 [facility] Comment on above: Performed By: #### L 500.2500, L100.0500 ####[facility] [address] [place], [address] GFR/1.73 sq M.predicted among non-blacks MDRD (S/P/Bld) [Vol rate/Area] 38 mL/min/{1.73_m2} Low >60 [facility] Comment on above: Result Comment: mL/m in/1.73m2 CKD-EPI Creatinine Equation (2020) Performed By: #### L 500.2500, L100.0500 ####[facility] [address] [place], [address] Glucose [Mass/Vol] 262 mg/dL High 70-99 [facility] Comment on above: Performed By: #### L 500.2500, L100.0500 ####[facility] [address] [place], [address] Potassium [Moles/Vol] 4.1 mmol/L Normal 3.3-5.1 [facility] Comment on above: Performed By: #### L 500.2500, L100.0500 ####[facility] [address] [place], [address] Sodium [Moles/Vol] 140 mmol/L Normal 133-145 [facility] Comment on above: Performed By: #### L 500.2500, L100.0500 ####[facility] [address] [place], [address] Urea nitrogen [Mass/Vol] 27 mg/dL High 4-19 [facility] Comment on above: Performed By: #### L 500.2500, L100.0500 ####[facility] [address] [place], [address] Bedside Glucoseon 08-01-2025 FINGERSTICK GLU 244 mg/dL High 74-106 [facility] Comment on above: Result Comment: RANDAL GEMENT OF PATIENT CARE PER NURSING PROTOCOL Performed By: #### L 501.080 ####[facility] [address] [place], [address] FINGERSTICK GLU 166 mg/dL High 74-106 [facility] Comment on above: Result Comment: RANDAL GEMENT OF PATIENT CARE PER NURSING PROTOCOL Performed By: #### L 501.080 ####[facility] [address] [place], [address] FINGERSTICK GLU 286 mg/dL High 74-106 [facility] Comment on above: Result Comment: RANDAL GEMENT OF PATIENT CARE PER NURSING PROTOCOL Performed By: #### L 501.080 ####[facility] [address] [place], [address] FINGERSTICK GLU 256 mg/dL High 74-106 [facility] Comment on above: Result Comment: RANDAL GEMENT OF PATIENT CARE PER NURSING PROTOCOL Performed By: #### L 501.080 ####[facility] [address] [place], [address] FINGERSTICK GLU 212 mg/dL High 74-106 [facility] Comment on above: Result Comment: RANDAL GEMENT OF PATIENT CARE PER NURSING PROTOCOL Performed By: #### L 501.080 ####[facility] [address] [place], [address] CBC-Complete Blood Cnt No Di ffon 08-01-2025 Erythrocyte distribution width (RBC) [Ratio] 14.5 % Normal 11.6-14.6 [facility] Comment on above: Performed By: #### L 500.2500, L100.0500 ####[facility] [address] [place], [address] Hematocrit (Bld) [Volume fraction] 27.5 % Low 37-47 [facility] Comment on above: Performed By: #### L 500.2500, L100.0500 ####[facility] [address] [place], [address] Hemoglobin (Bld) [Mass/Vol] 8.5 g/dL Low 12.0-15.0 [facility] Comment on above: Performed By: #### L 500.2500, L100.0500 ####[facility] [address] [place], [address] MCH (RBC) [Entitic mass] 30.5 pg Normal 27.0-32.0 [facility] Comment on above: Performed By: #### L 500.2500, L100.0500 ####[facility] [address] [place], [address] MCHC (RBC) [Mass/Vol] 30.9 g/dL Low 32-36 [facility] Comment on above: Performed By: #### L 500.2500, L100.0500 ####[facility] [address] [place], [address] MCV (RBC) [Entitic vol] 98.6 fL Normal 81-99 [facility] Comment on above: Performed By: #### L 500.2500, L100.0500 ####[facility] [address] [place], [address] Platelet mean volume (Bld) [Entitic vol] 9.8 fL Normal 6.2-12.0 [facility] Comment on above: Performed By: #### L 500.2500, L100.0500 ####[facility] [address] [place], [address] Platelets (Bld) [#/Vol] 273 10*3/uL Normal 150-450 [facility] Comment on above: Performed By: #### L 500.2500, L100.0500 ####[facility] [address] [place], [address] RBC (Bld) [#/Vol] 2.79 10*6/uL Low 4.2-5.4 [facility] Comment on above: Performed By: #### L 500.2500, L100.0500 ####[facility] [address] [place], [address] RDW SD 51.2 fl High 35.1-43.9 [facility] Comment on above: Performed By: #### L 500.2500, L100.0500 ####[facility] [address] [place], [address] WBC (Bld) [#/Vol] 10.1 10*3/uL Normal 4.4-11.0 [facility] Comment on above: Performed By: #### L 500.2500, L100.0500 ####[facility] [address] [place], [address] Basic Metabolic Profile (BMP )on 07-31-2025 BUN/CRE 20.2 RATIO High 10-20 [facility] Comment on above: Performed By: #### L 100.0500, L500.2500 ####[facility] [address] [place], [address] Calcium [Mass/Vol] 8.4 mg/dL Normal 7.6-11.0 [facility] Comment on above: Performed By: #### L 100.0500, L500.2500 ####[facility] [address] [place], [address] Chloride [Moles/Vol] 110 mmol/L High 98-108 [facility] Comment on above: Performed By: #### L 100.0500, L500.2500 ####[facility] [address] [place], [address] CO2 [Moles/Vol] 19.7 mmol/L Low 21.0-32.0 [facility] Comment on above: Performed By: #### L 100.0500, L500.2500 ####[facility] [address] [place], [address] Creatinine [Mass/Vol] 1.44 mg/dL High 0.70-1.20 [facility] Comment on above: Performed By: #### L 100.0500, L500.2500 ####[facility] [address] [place], [address] ECRCL 35.35 ml/min Low 50-250 [facility] Comment on above: Performed By: #### L 100.0500, L500.2500 ####[facility] [address] [place], [address] GAP 11 Normal 5-15 [facility] Comment on above: Performed By: #### L 100.0500, L500.2500 ####[facility] [address] [place], [address] GFR/1.73 sq M.predicted among non-blacks MDRD (S/P/Bld) [Vol rate/Area] 37 mL/min/{1.73_m2} Low >60 [facility] Comment on above: Result Comment: mL/m in/1.73m2 CKD-EPI Creatinine Equation (2020) Performed By: #### L 100.0500, L500.2500 ####[facility] [address] [place], [address] Glucose [Mass/Vol] 240 mg/dL High 70-99 [facility] Comment on above: Performed By: #### L 100.0500, L500.2500 ####[facility] [address] [place], [address] Potassium [Moles/Vol] 4.1 mmol/L Normal 3.3-5.1 [facility] Comment on above: Performed By: #### L 100.0500, L500.2500 ####[facility] [address] [place], [address] Sodium [Moles/Vol] 140 mmol/L Normal 133-145 [facility] Comment on above: Performed By: #### L 100.0500, L500.2500 ####[facility] [address] [place], [address] Urea nitrogen [Mass/Vol] 29 mg/dL High 4-19 [facility] Comment on above: Performed By: #### L 100.0500, L500.2500 ####[facility] [address] [place], [address] Bedside Glucoseon 07-31-2025 FINGERSTICK GLU 192 mg/dL High 74-106 [facility] Comment on above: Result Comment: RANDAL GEMENT OF PATIENT CARE PER NURSING PROTOCOL Performed By: #### L 501.080 ####[facility] [address] [place], [address] FINGERSTICK GLU 228 mg/dL High 74-106 [facility] Comment on above: Result Comment: RANDAL GEMENT OF PATIENT CARE PER NURSING PROTOCOL Performed By: #### L 501.080 ####[facility] [address] [place], [address] FINGERSTICK GLU 238 mg/dL High 74-106 [facility] Comment on above: Result Comment: RANDAL GEMENT OF PATIENT CARE PER NURSING PROTOCOL Performed By: #### L 501.080 ####[facility] [address] [place], [address] CBC-Complete Blood Cnt No Di ffon 07-31-2025 Erythrocyte distribution width (RBC) [Ratio] 14.3 % Normal 11.6-14.6 [facility] Comment on above: Performed By: #### L 100.0500, L500.2500 ####[facility] [address] [place], [address] Hematocrit (Bld) [Volume fraction] 29.4 % Low 37-47 [facility] Comment on above: Performed By: #### L 100.0500, L500.2500 ####[facility] [address] [place], [address] Hemoglobin (Bld) [Mass/Vol] 9.2 g/dL Low 12.0-15.0 [facility] Comment on above: Performed By: #### L 100.0500, L500.2500 ####[facility] [address] [place], [address] MCH (RBC) [Entitic mass] 30.6 pg Normal 27.0-32.0 [facility] Comment on above: Performed By: #### L 100.0500, L500.2500 ####[facility] [address] [place], [address] MCHC (RBC) [Mass/Vol] 31.3 g/dL Low 32-36 [facility] Comment on above: Performed By: #### L 100.0500, L500.2500 ####[facility] [address] [place], [address] MCV (RBC) [Entitic vol] 97.7 fL Normal 81-99 [facility] Comment on above: Performed By: #### L 100.0500, L500.2500 ####[facility] [address] [place], [address] Platelet mean volume (Bld) [Entitic vol] 10.0 fL Normal 6.2-12.0 [facility] Comment on above: Performed By: #### L 100.0500, L500.2500 ####[facility] [address] [place], [address] Platelets (Bld) [#/Vol] 317 10*3/uL Normal 150-450 [facility] Comment on above: Performed By: #### L 100.0500, L500.2500 ####[facility] [address] [place], [address] RBC (Bld) [#/Vol] 3.01 10*6/uL Low 4.2-5.4 [facility] Comment on above: Performed By: #### L 100.0500, L500.2500 ####[facility] [address] [place], [address] RDW SD 49.6 fl High 35.1-43.9 [facility] Comment on above: Performed By: #### L 100.0500, L500.2500 ####[facility] [address] [place], [address] WBC (Bld) [#/Vol] 11.9 10*3/uL High 4.4-11.0 [facility] Comment on above: Performed By: #### L 100.0500, L500.2500 ####[facility] [address] [place], [address] Bedside Glucoseon 07-30-2025 FINGERSTICK GLU 109 mg/dL High 74-106 [facility] Comment on above: Result Comment: RANDAL GEMENT OF PATIENT CARE PER NURSING PROTOCOL Performed By: #### L 501.080 ####[facility] [address] [place], [address] FINGERSTICK GLU 150 mg/dL High 74-106 [facility] Comment on above: Result Comment: RANDAL GEMENT OF PATIENT CARE PER NURSING PROTOCOL Performed By: #### L 501.080 ####[facility] [address], [address] FINGERSTICK GLU 160 mg/dL High 74-106 [facility] Comment on above: Result Comment: RANDAL GEMENT OF PATIENT CARE PER NURSING PROTOCOL Performed By: #### L 501.080 ####[facility] [address] [place], [address] FINGERSTICK GLU 109 mg/dL High 74-106 [facility] Comment on above: Result Comment: RANDAL GEMENT OF PATIENT CARE PER NURSING PROTOCOL Performed By: #### L 501.080 ####[facility] [address] [place], [address] FINGERSTICK GLU 135 mg/dL High 74-106 [facility] Comment on above: Result Comment: RANDAL GEMENT OF PATIENT CARE PER NURSING PROTOCOL Performed By: #### L 501.080 ####[facility] [address] [place], [address] Absolute lymphocyte countOrd ered By: Doris Jeffries on 07-29-2025 Lymphocytes Auto (Unsp spec) [#/Vol] 1.64 10*3/uL 0.83-4.51 [facility] Basic Metabolic Profile (BMP )on 07-29-2025 BUN/CRE 33.2 RATIO High 10-20 [facility] Comment on above: Performed By: #### L 100.0100, L500.2500 ####[facility] [address] [place], [address] Calcium [Mass/Vol] 8.7 mg/dL Normal 7.6-11.0 [facility] Comment on above: Performed By: #### L 100.0100, L500.2500 ####[facility] [address] [place], [address] Chloride [Moles/Vol] 110 mmol/L High 98-108 [facility] Comment on above: Performed By: #### L 100.0100, L500.2500 ####[facility] [address] [place], [address] CO2 [Moles/Vol] 19.3 mmol/L Low 21.0-32.0 [facility] Comment on above: Performed By: #### L 100.0100, L500.2500 ####[facility] [address] [place], [address] Creatinine [Mass/Vol] 1.67 mg/dL High 0.70-1.20 [facility] Comment on above: Performed By: #### L 100.0100, L500.2500 ####[facility] [address] [place], [address] ECRCL 30.81 ml/min Low 50-250 [facility] Comment on above: Performed By: #### L 100.0100, L500.2500 ####[facility] [address] [place], [address] GAP 11 Normal 5-15 [facility] Comment on above: Performed By: #### L 100.0100, L500.2500 ####[facility] [address] [place], [address] GFR/1.73 sq M.predicted among non-blacks MDRD (S/P/Bld) [Vol rate/Area] 31 mL/min/{1.73_m2} Low >60 [facility] Comment on above: Result Comment: mL/m in/1.73m2 CKD-EPI Creatinine Equation (2020) Performed By: #### L 100.0100, L500.2500 ####[facility] [address] [place], [address] Glucose [Mass/Vol] 215 mg/dL High 70-99 [facility] Comment on above: Performed By: #### L 100.0100, L500.2500 ####[facility] [address] [place], [address] Potassium [Moles/Vol] 3.8 mmol/L Normal 3.3-5.1 [facility] Comment on above: Performed By: #### L 100.0100, L500.2500 ####[facility] [address] [place], [address] Sodium [Moles/Vol] 140 mmol/L Normal 133-145 [facility] Comment on above: Performed By: #### L 100.0100, L500.2500 ####[facility] [address] [place], [address] Urea nitrogen [Mass/Vol] 56 mg/dL High 4-19 [facility] Comment on above: Performed By: #### L 100.0100, L500.2500 ####[facility] [address] [place], [address] Bedside Glucoseon 07-29-2025 FINGERSTICK GLU 118 mg/dL High 74-106 [facility] Comment on above: Result Comment: RANDAL GEMENT OF PATIENT CARE PER NURSING PROTOCOL Performed By: #### L 501.080 ####[facility] [address] [place], [address] FINGERSTICK GLU 73 mg/dL Low 74-106 [facility] Comment on above: Result Comment: RANDAL GEMENT OF PATIENT CARE PER NURSING PROTOCOL Performed By: #### L 501.080 ####[facility] [address] [place], [address] FINGERSTICK GLU 66 mg/dL Low 74-106 [facility] Comment on above: Result Comment: RANDAL GEMENT OF PATIENT CARE PER NURSING PROTOCOL Performed By: #### L 501.080 ####[facility] [address] [place], [address] FINGERSTICK GLU 156 mg/dL High 74-106 [facility] Comment on above: Result Comment: RANDAL GEMENT OF PATIENT CARE PER NURSING PROTOCOL Performed By: #### L 501.080 ####[facility] [address] [place] [id number] FINGERSTICK GLU 167 mg/dL High 74-106 [facility] Comment on above: Result Comment: RANDAL GEMENT OF PATIENT CARE PER NURSING PROTOCOL Performed By: #### L 501.080 ####[facility] [address] [facility] [address] FINGERSTICK GLU 129 mg/dL High 74-106 [facility] Comment on above: Result Comment: RADNAL GEMENT OF PATIENT CARE PER NURSING PROTOCOL Performed By: #### L 501.080 ####[facility] [address] [place] [id number] FINGERSTICK GLU 122 mg/dL High 74-106 [facility] Comment on above: Result Comment: RANDAL GEMENT OF PATIENT CARE PER NURSING PROTOCOL Performed By: #### L 501.080 ####[facility] [address] [place] [address] Blood eosinophils/100 leukoc ytesOrdered By: Doris Jeffries on 07-29-2025 Eosinophils/100 WBC (Bld) 3 % 0-5 [facility] Blood lymphocytes/100 leukoc ytesOrdered By: Doris Jeffries on 07-29-2025 Lymphocytes/100 WBC (Bld) 12 % Low 19-41 [facility] Blood metamyelocytes/100 yadira kocytesOrdered By: Doris Jeffries on 07-29-2025 Metamyelocytes/100 WBC (Bld) 1 % 0-1 [facility] Blood monocytes/100 leukocyt esOrdered By: Doris Jeffries on 07-29-2025 Monocytes/100 WBC (Bld) 2 % 0-10 [facility] Blood promyelocytes/100 leuk ocytesOrdered By: Doris Jeffries on 07-29-2025 Promyelocytes/100 WBC (Bld) 1 % High 0-0 [facility] Blood segmented neutrophils/ 100 leukocytesOrdered By: Doris Jeffries on 10-17-2025 Segmented neutrophils/100 WBC (Bld) 75 % High 47-70 [facility] CBC W/Diff, Automatedon 10-1 Absolute Lymph 1.64 X10 3/uL Normal 0.83-4.51 [facility] Comment on above: Performed By: #### L 100.0100, L500.2500 ####[facility] [address] [place], [address] Absolute Neut 10.2 X10 3/uL High 2.0-7.7 [facility] Comment on above: Performed By: #### L 100.0100, L500.2500 ####[facility] [address] [place], [address] Eosinophils/100 WBC (Bld) 3 % Normal 0-5 [facility] Comment on above: Performed By: #### L 100.0100, L500.2500 ####[facility] [address] [place], [address] Lymphocytes (Bld) [#/Vol] 12 10*3/uL Low 19-41 [facility] Comment on above: Performed By: #### L 100.0100, L500.2500 ####[facility] [address] [place], [address] META 1 Normal 0-1 [facility] Comment on above: Performed By: #### L 100.0100, L500.2500 ####[facility] [address] [place], [address] Metamyelocytes/100 WBC (Bld) 6 % High 0-0 [facility] Comment on above: Performed By: #### L 100.0100, L500.2500 ####[facility] [address] [place], [address] MONOCYTE 2 Normal 0-10 [facility] Comment on above: Performed By: #### L 100.0100, L500.2500 ####[facility] [address] [place], [address] PLT EST ADEQUATE Normal ADEQ [facility] Comment on above: Performed By: #### L 100.0100, L500.2500 ####[facility] [address] [place], [address] PROMYELO 1 High 0-0 [facility] Comment on above: Performed By: #### L 100.0100, L500.2500 ####[facility] [address] [place], [address] RED CELL MORPH NORM C+C Normal NORM C C [facility] Comment on above: Performed By: #### L 100.0100, L500.2500 ####[facility] [address] [place], [address] SEGS 75 High 47-70 [facility] Comment on above: Performed By: #### L 100.0100, L500.2500 ####[facility] [address] [place], [address] TOTAL CELLS 100 Normal MANUAL DIFF [facility] Comment on above: Performed By: #### L 100.0100, L500.2500 ####[facility] [address] [place], [address] EGD Reporton 07-29-2025 EGD Report Normal [facility] Erythrocyte morphology asses smentOrdered By: Doris Jeffries on 07-29-2025 RBC morphology finding Nom (Bld) NORM C+C NORMAL NORM C&C [facility] MR/OP.PROVATon 07-29-2025 MR/OP.PROVAT Normal [facility] MR/POSTOP.ANEon 07-29-2025 MR/POSTOP.ANE Normal [facility] MR/GDXVHBAR6ty 07-29-2025 MR/POSTOPAN2 Normal [facility] MR/POSTOPAN2 Normal [facility] Platelet estimateOrdered By: Doris Jeffries on 07-29-2025 Platelets LM Ql (Bld) ADEQUATE ADEQ [facility] Total cell countOrdered By: Doris Jeffries on 07-29-2025 Cells counted Molgen (Bld/Tiss) [#] 100 MANUAL DIFF [facility] Activated partial thrombopla stin time (aPTT) in platelet poor plasma by coagulation aOrdered By: Jonel Lorenzo on 07-28-2025 aPTT Coag (PPP) [Time] 34.8 s 24.1-36.2 [facility] Basic Metabolic Profile (BMP )on 07-28-2025 BUN/CRE 33.2 RATIO High 08-01 [facility] Comment on above: Performed By: #### L 100.0100, L500.2500 ####[facility] [address] [place], [address] Calcium [Mass/Vol] 7.9 mg/dL Normal 7.6-11.0 [facility] Comment on above: Performed By: #### L 100.0100, L500.2500 ####[facility] [address], [address] Chloride [Moles/Vol] 104 mmol/L Normal 98-108 [facility] Comment on above: Performed By: #### L 100.0100, L500.2500 ####[facility] [address] [place], [address] CO2 [Moles/Vol] 15.3 mmol/L Low 21.0-32.0 [facility] Comment on above: Performed By: #### L 100.0100, L500.2500 ####[facility] [address] [place], [address] Creatinine [Mass/Vol] 2.34 mg/dL High 0.70-1.20 [facility] Comment on above: Performed By: #### L 100.0100, L500.2500 ####[facility] [address] [place], [address] ECRCL 22.07 ml/min Low 50-250 [facility] Comment on above: Performed By: #### L 100.0100, L500.2500 ####[facility] [address] [place], [address] GAP 15 Normal 5-15 [facility] Comment on above: Performed By: #### L 100.0100, L500.2500 ####[facility] [address] [place], [address] GFR/1.73 sq M.predicted among non-blacks MDRD (S/P/Bld) [Vol rate/Area] 21 mL/min/{1.73_m2} Low >60 [facility] Comment on above: Result Comment: mL/m in/1.73m2 CKD-EPI Creatinine Equation (2020) Performed By: #### L 100.0100, L500.2500 ####[facility] [address] [place], [address] Glucose [Mass/Vol] 214 mg/dL High 70-99 [facility] Comment on above: Performed By: #### L 100.0100, L500.2500 ####[facility] [address] [place], [address] Potassium [Moles/Vol] 3.9 mmol/L Normal 3.3-5.1 [facility] Comment on above: Performed By: #### L 100.0100, L500.2500 ####[facility] [address] [place], [address] Sodium [Moles/Vol] 134 mmol/L Normal 133-145 [facility] Comment on above: Performed By: #### L 100.0100, L500.2500 ####[facility] [address] [place], [address] Urea nitrogen [Mass/Vol] 78 mg/dL High 4-19 [facility] Comment on above: Performed By: #### L 100.0100, L500.2500 ####[facility] [address] [place], [address] Bedside Glucoseon 07-28-2025 FINGERSTICK GLU 185 mg/dL High 74-106 [facility] Comment on above: Result Comment: RANDAL GEMENT OF PATIENT CARE PER NURSING PROTOCOL Performed By: #### L 501.080 ####[facility] [address] [place], [address] FINGERSTICK GLU 144 mg/dL High 74-106 [facility] Comment on above: Result Comment: RANDAL GEMENT OF PATIENT CARE PER NURSING PROTOCOL Performed By: #### L 501.080 ####[facility] [address] [place], [address] FINGERSTICK GLU 139 mg/dL High 74-106 [facility] Comment on above: Result Comment: RANDAL GEMENT OF PATIENT CARE PER NURSING PROTOCOL Performed By: #### L 501.080 ####[facility] [address], [address] FINGERSTICK GLU 114 mg/dL High 74-106 [facility] Comment on above: Result Comment: RANDAL GEMENT OF PATIENT CARE PER NURSING PROTOCOL Performed By: #### L 501.080 ####[facility] [address] [place], [address] FINGERSTICK GLU 81 mg/dL Normal 74-106 [facility] Comment on above: Result Comment: RANDAL GEMENT OF PATIENT CARE PER NURSING PROTOCOL Performed By: #### L 501.080 ####[facility] [address] [place], [address] Blood band neutrophil count as percentage of total leukocytesOrdered By: Doris Jeffries on 07-28-2025 Band form neutrophils/100 WBC (Bld) 4 % 0-5 [facility] Blood polychromasia detectio n by light microscopyOrdered By: Doris Jeffries on 07-28-2025 Polychromasia LM Ql (Bld) 1+ [facility] Blood vacuolated neutrophils detection by light microscopyOrdered By: Doris Jeffries on 07-28-2025 Neutrophils.vacuolated LM Ql (Bld) 1+ [facility] CBC W/Diff, Automatedon 07-13 Anisocytosis Ql (Bld) 1+ Normal [facility] Comment on above: Performed By: #### L 100.0100, L500.2500 ####[facility] [address] [place], [address] OVALOCYTE 2+ Normal [facility] Comment on above: Performed By: #### L 100.0100, L500.2500 ####[facility] [address] [place], [address] PLT EST ADEQUATE Normal ADEQ [facility] Comment on above: Performed By: #### L 100.0100, L500.2500 ####[facility] [address] [place], [address] POLYCHROMASIA 1+ Normal [facility] Comment on above: Performed By: #### L 100.0100, L500.2500 ####[facility] [address] [place], [address] VACUOLATE CELLS 1+ Normal [facility] Comment on above: Performed By: #### L 100.0100, L500.2500 ####[facility] [address] [place], [address] Absolute Lymph 0.97 X10 3/uL Normal 0.83-4.51 [facility] Comment on above: Performed By: #### L 100.0100, L500.2500 ####[facility] [address] [place], [address] Absolute Neut 17.0 X10 3/uL High 2.0-7.7 [facility] Comment on above: Performed By: #### L 100.0100, L500.2500 ####[facility] [address] [place], [address] BAND 4 Normal 0-5 [facility] Comment on above: Performed By: #### L 100.0100, L500.2500 ####[facility] [address] [place], [address] Eosinophils/100 WBC (Bld) 1 % Normal 0-5 [facility] Comment on above: Performed By: #### L 100.0100, L500.2500 ####[facility] [address] [place], [address] Lymphocytes (Bld) [#/Vol] 5 10*3/uL Low 19-41 [facility] Comment on above: Performed By: #### L 100.0100, L500.2500 ####[facility] [address] [place], [address] META 2 High 0-1 [facility] Comment on above: Performed By: #### L 100.0100, L500.2500 ####[facility] [address] [place], [address] Metamyelocytes/100 WBC (Bld) 2 % High 0-0 [facility] Comment on above: Performed By: #### L 100.0100, L500.2500 ####[facility] [address] [place], [address] MONOCYTE 2 Normal 0-10 [facility] Comment on above: Performed By: #### L 100.0100, L500.2500 ####[facility] [address] [place], [address] SEGS 84 High 47-70 [facility] Comment on above: Performed By: #### L 100.0100, L500.2500 ####[facility] [address] [place], [address] TOTAL CELLS 100 Normal MANUAL DIFF [facility] Comment on above: Performed By: #### L 100.0100, L500.2500 ####[facility] [address] [place], [address] CXR for Line Placementon CXR for Line Placement Normal [facility] Modified Barium Swallow Stud yon 07-28-2025 Modified Barium Swallow Study Normal [facility] No Panel InformationOrdered By: Doris Jeffries on 07-28-2025 1+ [facility] Ovalocyte detectionOrdered B y: Doris Jeffries on 07-28-2025 Ovalocytes LM Ql (Bld) 2+ [facility] Partial Thromboplast Timeon 07-28-2025 aPTT Coag (Bld) [Time] 34.8 s Normal 24.1-36.2 [facility] Comment on above: Performed By: #### L 300.4310 ####[facility] [address] [place], [address] aPTT Coag (Bld) [Time] 169.4 s Invalid Interpretation Code 24.1-36.2 [facility] Comment on above: Result Comment: CRIT ICAL VALUE CALLED TO SHAINA BLUE (ICU)07/28/25 1453 Zeyad Mcdonald.RESULTS READ BACK BY SAME. Performed By: #### L 300.4310 ####[facility] [address] [place], [address] aPTT Coag (Bld) [Time] 95.2 s Invalid Interpretation Code 24.1-36.2 [facility] Comment on above: Result Comment: CRIT ICAL VALUE CALLED TO ASHTYN KAY07/28/25 0559 Julia Lee.RESULTS READ BACK BY SAME. Performed By: #### L 300.4310 ####[facility] [address] [place], [address] Basic Metabolic Profile (BMP )on 07-27-2025 BUN/CRE 35.3 RATIO High 08-01 [facility] Comment on above: Performed By: #### L 100.0100, L500.2500 ####[facility] [address] [place], [address] Calcium [Mass/Vol] 7.9 mg/dL Normal 7.6-11.0 [facility] Comment on above: Performed By: #### L 100.0100, L500.2500 ####[facility] [address] [place], [address] Chloride [Moles/Vol] 104 mmol/L Normal 98-108 [facility] Comment on above: Performed By: #### L 100.0100, L500.2500 ####[facility] [address] [place], [address] CO2 [Moles/Vol] 18.2 mmol/L Low 21.0-32.0 [facility] Comment on above: Performed By: #### L 100.0100, L500.2500 ####[facility] [address] [place], [address] Creatinine [Mass/Vol] 2.59 mg/dL High 0.70-1.20 [facility] Comment on above: Performed By: #### L 100.0100, L500.2500 ####[facility] [address] [place], [address] ECRCL 19.94 ml/min Low 50-250 [facility] Comment on above: Performed By: #### L 100.0100, L500.2500 ####[facility] [address] [place], [address] GAP 13 Normal 5-15 [facility] Comment on above: Performed By: #### L 100.0100, L500.2500 ####[facility] [address] [place], [address] GFR/1.73 sq M.predicted among non-blacks MDRD (S/P/Bld) [Vol rate/Area] 18 mL/min/{1.73_m2} Low >60 [facility] Comment on above: Result Comment: mL/m in/1.73m2 CKD-EPI Creatinine Equation (2020) Performed By: #### L 100.0100, L500.2500 ####[facility] [address] [place], [address] Glucose [Mass/Vol] 179 mg/dL High 70-99 [facility] Comment on above: Performed By: #### L 100.0100, L500.2500 ####[facility] [address] [place], [address] Potassium [Moles/Vol] 3.9 mmol/L Normal 3.3-5.1 [facility] Comment on above: Performed By: #### L 100.0100, L500.2500 ####[facility] [address] [place], [address] Sodium [Moles/Vol] 135 mmol/L Normal 133-145 [facility] Comment on above: Performed By: #### L 100.0100, L500.2500 ####[facility] [address] [place], [address] Urea nitrogen [Mass/Vol] 92 mg/dL High 4-19 [facility] Comment on above: Performed By: #### L 100.0100, L500.2500 ####[facility] [address] [place], [address] Bedside Glucoseon 07-27-2025 FINGERSTICK GLU 101 mg/dL Normal 74-106 [facility] Comment on above: Result Comment: RANDAL GEMENT OF PATIENT CARE PER NURSING PROTOCOL Performed By: #### L 501.080 ####[facility] [address] [place], [address] FINGERSTICK GLU 45 mg/dL Low 74-106 [facility] Comment on above: Result Comment: RANDAL GEMENT OF PATIENT CARE PER NURSING PROTOCOL Performed By: #### L 501.080 ####[facility] [address] [place], [address] FINGERSTICK GLU 57 mg/dL Low 74-106 [facility] Comment on above: Result Comment: RANDAL GEMENT OF PATIENT CARE PER NURSING PROTOCOL Performed By: #### L 501.080 ####[facility] [address] [place], [address] FINGERSTICK GLU 147 mg/dL High 74-106 [facility] Comment on above: Result Comment: RANDAL GEMENT OF PATIENT CARE PER NURSING PROTOCOL Performed By: #### L 501.080 ####[facility] [address] [place], [address] FINGERSTICK GLU 53 mg/dL Low 74-106 [facility] Comment on above: Result Comment: RANDAL GEMENT OF PATIENT CARE PER NURSING PROTOCOL Performed By: #### L 501.080 ####[facility] [address] [place], [address] FINGERSTICK GLU 123 mg/dL High 74-106 [facility] Comment on above: Result Comment: RANDAL GEMENT OF PATIENT CARE PER NURSING PROTOCOL Performed By: #### L 501.080 ####[facility] [address] [place], [address] FINGERSTICK GLU 51 mg/dL Low 74-106 [facility] Comment on above: Result Comment: RANDAL GEMENT OF PATIENT CARE PER NURSING PROTOCOL Performed By: #### L 501.080 ####[facility] [address] [place], [address] Culture, Blood (WB)on 2024 CUB Blood cultures x2, from two different sites No growth in 5 days. Normal [facility] Comment on above: Performed By: #### L 501.4021, M200.1000, L503.7505, L503.6005 ####[facility] [address] [place], [address] Glucoseon 07-27-2025 Glucose [Mass/Vol] 73 mg/dL Normal 70-99 [facility] Comment on above: Performed By: #### L 501.0100 ####[facility] [address] [place], [address] Partial Thromboplast Timeon 07-27-2025 aPTT Coag (Bld) [Time] 61.3 s High 24.1-36.2 [facility] Comment on above: Performed By: #### L 300.4310 ####[facility] [address] [place], [address] aPTT Coag (Bld) [Time] 33.4 s Normal 24.1-36.2 [facility] Comment on above: Performed By: #### L 300.4310 ####[facility] [address] [place], [address] aPTT Coag (Bld) [Time] 25.8 s Normal 24.1-36.2 [facility] Comment on above: Performed By: #### L 300.4310 ####[facility] [address] [place], [address] Review by pathologistOrdered By: Doris Jeffries on 07-27-2025 Pathologist review Deven (Unsp spec) [Interp] Reviewed [facility] Basic Metabolic Profile (BMP )on 07-26-2025 BUN/CRE 34.4 RATIO High 10-20 [facility] Comment on above: Performed By: #### L 500.2500 ####[facility] [address] [place], [address] Calcium [Mass/Vol] 7.9 mg/dL Normal 7.6-11.0 [facility] Comment on above: Performed By: #### L 500.2500 ####[facility] [address] [place], [address] Chloride [Moles/Vol] 106 mmol/L Normal 98-108 [facility] Comment on above: Performed By: #### L 500.2500 ####[facility] [address] [place], [address] CO2 [Moles/Vol] 17.7 mmol/L Low 21.0-32.0 [facility] Comment on above: Performed By: #### L 500.2500 ####[facility] [address] [place], [address] Creatinine [Mass/Vol] 2.42 mg/dL High 0.70-1.20 [facility] Comment on above: Performed By: #### L 500.2500 ####[facility] [address], [address] ECRCL 21.15 ml/min Low 50-250 [facility] Comment on above: Performed By: #### L 500.2500 ####[facility] [address] [place], [address] GAP 14 Normal 5-15 [facility] Comment on above: Performed By: #### L 500.2500 ####[facility] [address] [place], [address] GFR/1.73 sq M.predicted among non-blacks MDRD (S/P/Bld) [Vol rate/Area] 20 mL/min/{1.73_m2} Low >60 [facility] Comment on above: Result Comment: mL/m in/1.73m2 CKD-EPI Creatinine Equation (2020) Performed By: #### L 500.2500 ####[facility] [address] [place], [address] Glucose [Mass/Vol] 185 mg/dL High 70-99 [facility] Comment on above: Performed By: #### L 500.2500 ####[facility] [address] [place], [address] Potassium [Moles/Vol] 4.7 mmol/L Normal 3.3-5.1 [facility] Comment on above: Performed By: #### L 500.2500 ####[facility] [address] [place], [address] Sodium [Moles/Vol] 138 mmol/L Normal 133-145 [facility] Comment on above: Performed By: #### L 500.2500 ####[facility] [address] [place], [address] Urea nitrogen [Mass/Vol] 83 mg/dL High 4-19 [facility] Comment on above: Performed By: #### L 500.2500 ####[facility] [address] [place], [address] BUN Normal -19 [facility] Comment on above: Result Comment: DUPL ICATE ORDER Performed By: #### L 500.2500 ####[facility] [address] [place], [address] BUN/CRE Normal 10-20 [facility] Comment on above: Result Comment: DUPL ICATE ORDER Performed By: #### L 500.2500 ####[facility] [address] [place], [address] Calcium Normal 7.6-11.0 [facility] Comment on above: Result Comment: DUPL ICATE ORDER Performed By: #### L 500.2500 ####[facility] [address] [place], [address] CL Normal 98-108 [facility] Comment on above: Result Comment: DUPL ICATE ORDER Performed By: #### L 500.2500 ####[facility] [address] [place], [address] CO2 Normal 21.0-32.0 [facility] Comment on above: Result Comment: DUPL ICATE ORDER Performed By: #### L 500.2500 ####[facility] [address] [place], [address] CREAT,SERUM Normal 0.70-1.20 [facility] Comment on above: Result Comment: DUPL ICATE ORDER Performed By: #### L 500.2500 ####[facility] [address] [place], [address] eGFR Normal >60 [facility] Comment on above: Result Comment: DUPL ICATE ORDER Performed By: #### L 500.2500 ####[facility] [address] [place], [address] GAP Normal 5-15 [facility] Comment on above: Result Comment: DUPL ICATE ORDER Performed By: #### L 500.2500 ####[facility] [address] [place], [address] GLU Normal 70-99 [facility] Comment on above: Result Comment: DUPL ICATE ORDER Performed By: #### L 500.2500 ####[facility] [address] [place], [address] Potassium Normal 3.3-5.1 [facility] Comment on above: Result Comment: DUPL ICATE ORDER Performed By: #### L 500.2500 ####[facility] [address] [place], [address] Basic Metabolic Profile (BMP) Normal 133-145 [facility] Comment on above: Result Comment: DUPL ICATE ORDER Performed By: #### L 500.2500 ####[facility] [address] [place], [address] Bedside Glucoseon 07-26-2025 FINGERSTICK GLU 124 mg/dL High 74-106 [facility] Comment on above: Result Comment: RANDAL RAUL OF PATIENT CARE PER NURSING PROTOCOL Performed By: #### L 501.080 ####[facility] [address] [place], [address] FINGERSTICK GLU 174 mg/dL High 74-106 [facility] Comment on above: Result Comment: RANDAL GEMENT OF PATIENT CARE PER NURSING PROTOCOL Performed By: #### L 501.080 ####[facility] [address] [place], [address] FINGERSTICK GLU 176 mg/dL High -106 [facility] Comment on above: Result Comment: RANDAL GEMENT OF PATIENT CARE PER NURSING PROTOCOL Performed By: #### L 501.080 ####[facility] [address] [place], [address] FINGERSTICK GLU 183 mg/dL High -106 [facility] Comment on above: Result Comment: RANDAL GEMENT OF PATIENT CARE PER NURSING PROTOCOL Performed By: #### L 501.080 ####[facility] [address] [place], [address] FINGERSTICK GLU 163 mg/dL High [address] [place] [address] Comment on above: Result Comment: RANDAL GEMENT OF PATIENT CARE PER NURSING PROTOCOL Performed By: #### L 501.080 ####[facility] [address] [place], [address] CBC W/Diff, Automatedon 10-1 Anisocytosis Ql (Bld) 1+ Normal [facility] Comment on above: Performed By: #### L 100.0100 ####[facility] [address] [place], [address] OVALOCYTE 2+ Normal [facility] Comment on above: Performed By: #### L 100.0100 ####[facility] [address] [place], [address] PLT EST ADEQUATE Normal ADEQ [facility] Comment on above: Performed By: #### L 100.0100 ####[facility] [address] [place], [address] TEAR DROP RARE Normal [facility] Comment on above: Performed By: #### L 100.0100 ####[facility] [address] [place], [address] Absolute Lymph 0.93 X10 3/uL Normal 0.83-4.51 [facility] Comment on above: Performed By: #### L 100.0100 ####[facility] [address] [place], [address] Absolute Neut 9.9 X10 3/uL High 2.0-7.7 [facility] Comment on above: Performed By: #### L 100.0100 ####[facility] [address] [place], [address] Lymphocytes (Bld) [#/Vol] 8 10*3/uL Low 19-41 [facility] Comment on above: Performed By: #### L 100.0100 ####[facility] [address] [place], [address] META 1 Normal 0-1 [facility] Comment on above: Performed By: #### L 100.0100 ####[facility] [address] [place], [address] Metamyelocytes/100 WBC (Bld) 1 % High 0-0 [facility] Comment on above: Performed By: #### L 100.0100 ####[facility] [address] [place], [address] MONOCYTE 5 Normal 0-10 [facility] Comment on above: Performed By: #### L 100.0100 ####[facility] [address] [place], [address] SEGS 85 High 47-70 [facility] Comment on above: Performed By: #### L 100.0100 ####[facility] [address] [place], [place], [address] TOTAL CELLS 100 Normal MANUAL DIFF [facility] Comment on above: Performed By: #### L 100.0100 ####[facility] [address] [place], [place], [address] EGD Reporton 07-26-2025 EGD Report Normal [facility] Electrocardiogram reportOrde red By: Mauricio Garcia on 07-26-2025 EKG study [facility] Other Phone: MR/OP.PROVATon 07-26-2025 MR/OP.PROVAT Normal [facility] Partial Thromboplast Timeon 07-26-2025 aPTT Coag (Bld) [Time] 93.9 s Invalid Interpretation Code 24.1-36.2 [facility] Comment on above: Result Comment: CRIT ICAL VALUE CALLED TO JANIA RYANE1 0611 Julia Lee.RESULTS READ BACK BY SAME. Performed By: #### L 300.4314 ####[facility] [address] [place], [place], [address] Surgery Specimen Level Aide 07-26-2025 Surgery Specimen Level IV Normal [facility] Comment on above: Performed By: #### P SUIV ####[facility] [address] [place], [place], [address] Teardrop cell detectionOrder ed By: Kamron Nguyen on 07-26-2025 Dacrocytes LM Ql (Bld) RARE [facility] Assessment of wrist artery p atency prior to arterial punctureOrdered By: Ying Jay on 07-25-2025 Arterial patency Wrist artery --pre arterial puncture Positive [facility] Automated lymphocyte count a s percentage of total leukocytesOrdered By: Georges Duque on 07-25-2025 Lymphocytes/100 WBC Auto (Unsp spec) 3.5 % Low 19-41 [facility] Basophil percentageOrdered B y: Georges Duque on 07-25-2025 Basophils/100 WBC (Bld) 0.1 % 0-1 [facility] Bedside Glucoseon 07-25-2025 FINGERSTICK GLU 141 mg/dL High 74-106 [facility] Comment on above: Result Comment: RANDAL GEMENT OF PATIENT CARE PER NURSING PROTOCOL Performed By: #### L 501.080 ####[facility] [address] [place], [address] FINGERSTICK GLU 156 mg/dL High 74-106 [facility] Comment on above: Result Comment: RANDAL GEMENT OF PATIENT CARE PER NURSING PROTOCOL Performed By: #### L 501.080 ####[facility] [address] [place], [address] FINGERSTICK GLU 157 mg/dL High 74-106 [facility] Comment on above: Result Comment: RANDAL GEMENT OF PATIENT CARE PER NURSING PROTOCOL Performed By: #### L 501.080 ####[facility] [address] [place], [address] Bilirubin, totalOrdered By: Georges Duque on 07-25-2025 Bilirubin [Mass/Vol] 0.19 mg/dL 0.00-1.30 [facility] Blood Gases by [facility] 025 MIRANDA TEST Positive Normal [facility] Comment on above: Performed By: #### L 9000.0800 ####[facility] [address] [place], [address] Base excess Calc (Bld) [Moles/Vol] -3 mmol/L Low -2 to +2 [facility] Comment on above: Performed By: #### L 9000.0800 ####[facility] [address] [place], [address] Blood Gas Type ART Normal [facility] Comment on above: Performed By: #### L 9000.0800 ####[facility] [address] [place], [address] CO2 [Moles/Vol] 21 mmol/L Normal [facility] Comment on above: Performed By: #### L 9000.0800 ####[facility] [address] [place], [address] FI02 30.0 Normal [facility] Comment on above: Performed By: #### L 8999.08 ####[facility] [address] [place], [address] HCO3 (Bld) [Moles/Vol] 20.4 mmol/L Low 22-26 [facility] Comment on above: Performed By: #### L 8999.0800 ####[facility] [address] [place], [address] Mode AC Normal [facility] Comment on above: Performed By: #### L 8999.08 ####[facility] [address] [place], [address] O2 Delivery Dev Adult Vent Normal [facility] Comment on above: Performed By: #### L 8999.08 ####[facility] [address] [place], [address] pCO2 27.1 mmHg Low 35-45 [facility] Comment on above: Performed By: #### L 8999.08 ####[facility] [address] [place], [address] PEEP 5 Normal [facility] Comment on above: Performed By: #### L 8999.0800 ####[facility] [address] [place], [address] pH (Bld) 7.48 [pH] High 7.35-7.45 [facility] Comment on above: Performed By: #### L 8999.0800 ####[facility] [address] [place], [address] PO2 118 mmHG High 75-100 [facility] Comment on above: Performed By: #### L 8999.0800 ####[facility] [address] [place], [address] RR 16 Normal [facility] Comment on above: Performed By: #### L 9000.0800 ####[facility] [address] [place], [address] SITE R Radial Normal [facility] Comment on above: Performed By: #### L 9000.0800 ####[facility] [address] [place], [address] SO2 99 Normal 95-99 [facility] Comment on above: Performed By: #### L 9000.0800 ####[facility] [address] [place], [address] Vt 400.0 mL Normal [facility] Comment on above: Performed By: #### L 9000.0800 ####[facility] [address] [place], [address] Blood base excess determinat ionOrdered By: Ying Jay on 07-25-2025 Base excess Calc (BldV) [Moles/Vol] -3 mmol/L Low -2-2 [facility] Blood bicarbonate measuremen tOrdered By: Ying Jay on 07-25-2025 HCO3 (Bld) [Moles/Vol] 20.4 mmol/L Low 22-26 [facility] CBC W/Diff, Automatedon 07-13 Absolute Neut Normal 2.0-7.7 [facility] Comment on above: Result Comment: DUPL ICATE- SEE H28 Performed By: #### L 100.0100 ####[facility] [address] [place], [address] HCT Normal 37-47 [facility] Comment on above: Result Comment: DUPL ICATE- SEE H28 Performed By: #### L 100.0100 ####[facility] [address] [place], [address] HGB Normal 12.0-15.0 [facility] Comment on above: Result Comment: DUPL ICATE- SEE H28 Performed By: #### L 100.0100 ####[facility] [address] [place], [address] MCH Normal 27.0-32.0 [facility] Comment on above: Result Comment: DUPL ICATE- SEE H28 Performed By: #### L 100.0100 ####[facility] [address] [place], [address] MCHC Normal 32-36 [facility] Comment on above: Result Comment: DUPL ICATE- SEE H28 Performed By: #### L 100.0100 ####[facility] [address] [place], [address] MCV Normal 81-99 [facility] Comment on above: Result Comment: DUPL ICATE- SEE H28 Performed By: #### L 100.0100 ####[facility] [address] [place], [address] NEUT% Normal 47-70 [facility] Comment on above: Result Comment: DUPL ICATE- SEE H28 Performed By: #### L 100.0100 ####[facility] [address] [place], [address] PLT Normal 150-450 [facility] Comment on above: Result Comment: DUPL ICATE- SEE H28 Performed By: #### L 100.0100 ####[facility] [address] [place], [address] RBC Normal 4.2-5.4 [facility] Comment on above: Result Comment: DUPL ICATE- SEE H28 Performed By: #### L 100.0100 ####[facility] [address] [place], [address] RDW CV Normal 11.6-14.6 [facility] Comment on above: Result Comment: DUPL ICATE- SEE H28 Performed By: #### L 100.0100 ####[facility] [address] [place], [address] RDW SD Normal 35.1-43.9 [facility] Comment on above: Result Comment: DUPL ICATE- SEE H28 Performed By: #### L 100.0100 ####[facility] [address] [place], [address] WBC Normal 4.4-11.0 [facility] Comment on above: Result Comment: DUPL ICATE- SEE H28 Performed By: #### L 100.0100 ####[facility] [address] [place], [address] Absolute Lymph 0.47 X10 3/uL Low 0.83-4.51 [facility] Comment on above: Performed By: #### L 500.4050, L100.0100 ####[facility] [address] [place], [address] Absolute Neut 12.5 X10 3/uL High 2.0-7.7 [facility] Comment on above: Performed By: #### L 500.4050, L100.0100 ####[facility] [address] [place], [address] Basophils/100 WBC (Bld) 0.1 % Normal 0-1 [facility] Comment on above: Performed By: #### L 500.4050, L100.0100 ####[facility] [address] [place], [address] Eosinophils/100 WBC (Bld) 0.0 % Normal 0-5 [facility] Comment on above: Performed By: #### L 500.4050, L100.0100 ####[facility] [address] [place], [address] Erythrocyte distribution width (RBC) [Ratio] 13.5 % Normal 11.6-14.6 [facility] Comment on above: Performed By: #### L 500.4050, L100.0100 ####[facility] [address] [place], [address] Hematocrit (Bld) [Volume fraction] 26.3 % Low 37-47 [facility] Comment on above: Performed By: #### L 500.4050, L100.0100 ####[facility] [address] [place], [address] Hemoglobin (Bld) [Mass/Vol] 8.5 g/dL Low 12.0-15.0 [facility] Comment on above: Performed By: #### L 500.4050, L100.0100 ####[facility] [address] [place], [address] IG% 1.500 High 0.0-0.9 [facility] Comment on above: Result Comment: IG% - Immature Granulocytes (promyelocytes, myelocytes andmetamyelocytes) > 1% indicates that a LEFT SHIFT is Present. Performed By: #### L 500.4050, L100.0100 ####[facility] [address] [place], [address] Lymphocytes/100 WBC (Bld) 3.5 % Low 19-41 [facility] Comment on above: Performed By: #### L 500.4050, L100.0100 ####[facility] [address] [place], [address] MCH (RBC) [Entitic mass] 30.0 pg Normal 27.0-32.0 [facility] Comment on above: Performed By: #### L 500.4050, L100.0100 ####[facility] [address] [place], [address] MCHC (RBC) [Mass/Vol] 32.3 g/dL Normal 32-36 [facility] Comment on above: Performed By: #### L 500.4050, L100.0100 ####[facility] [address] [place], [address] MCV (RBC) [Entitic vol] 92.9 fL Normal 81-99 [facility] Comment on above: Performed By: #### L 500.4050, L100.0100 ####[facility] [address], [address] Monocytes/100 WBC (Bld) 2.4 % Normal 0-10 [facility] Comment on above: Performed By: #### L 500.4050, L100.0100 ####[facility] [address] [place], [address] Neutrophils/100 WBC (Bld) 92.5 % High 47-70 [facility] Comment on above: Performed By: #### L 500.4050, L100.0100 ####[facility] [address] [place], [address] Nucleated RBC (Bld) [#/Vol] 0.1 10*3/uL Normal 0-5 [facility] Comment on above: Performed By: #### L 500.4050, L100.0100 ####[facility] [address] [place], [address] Platelet mean volume (Bld) [Entitic vol] 9.8 fL Normal 6.2-12.0 [facility] Comment on above: Performed By: #### L 500.4050, L100.0100 ####[facility] [address] [place], [address] Platelets (Bld) [#/Vol] 300 10*3/uL Normal 150-450 [facility] Comment on above: Performed By: #### L 500.4050, L100.0100 ####[facility] [address] [place], [address] RBC (Bld) [#/Vol] 2.83 10*6/uL Low 4.2-5.4 [facility] Comment on above: Performed By: #### L 500.4050, L100.0100 ####[facility] [address] [place], [address] RDW SD 46.2 fl High 35.1-43.9 [facility] Comment on above: Performed By: #### L 500.4050, L100.0100 ####[facility] [address] [place], [address] WBC (Bld) [#/Vol] 13.5 10*3/uL High 4.4-11.0 [facility] Comment on above: Performed By: #### L 500.4050, L100.0100 ####[facility] [address] [place], [address] Chest 1 View (Portable)on Chest 1 View (Portable) Normal [facility] Comprehensive Metabolic Prof ilon 07-25-2025 Albumin [Mass/Vol] 2.7 g/dL Low 3.4-4.8 [facility] Comment on above: Performed By: #### L 500.4050, L100.0100 ####[facility] [address] [place], [address] Albumin/Globulin [Mass ratio] 0.8 {ratio} Low 0.9-2.4 [facility] Comment on above: Performed By: #### L 500.4050, L100.0100 ####[facility] [address] [place], [address] ALK PHOS 103 U/L Normal 35-104 [facility] Comment on above: Performed By: #### L 500.4050, L100.0100 ####[facility] [address] [place], [address] ALT [Catalytic activity/Vol] 32 U/L Normal <=34 [facility] Comment on above: Performed By: #### L 500.4050, L100.0100 ####[facility] [address] [place], [address] AST [Catalytic activity/Vol] 34 U/L High <=31 [facility] Comment on above: Performed By: #### L 500.4050, L100.0100 ####[facility] [address] [place], [address] Bilirubin [Mass/Vol] 0.19 mg/dL Normal 0.00-1.30 [facility] Comment on above: Performed By: #### L 500.4050, L100.0100 ####[facility] [address] [place], [address] BUN/CRE 32.4 RATIO High 10-20 [facility] Comment on above: Performed By: #### L 500.4050, L100.0100 ####[facility] [address] [place], [address] Calcium [Mass/Vol] 8.4 mg/dL Normal 7.6-11.0 [facility] Comment on above: Performed By: #### L 500.4050, L100.0100 ####[facility] [address] [place], [address] Chloride [Moles/Vol] 105 mmol/L Normal 98-108 [facility] Comment on above: Performed By: #### L 500.4050, L100.0100 ####[facility] [address] [place], [address] CO2 [Moles/Vol] 18.8 mmol/L Low 21.0-32.0 [facility] Comment on above: Performed By: #### L 500.4050, L100.0100 ####[facility] [address] [place], [address] Creatinine [Mass/Vol] 2.48 mg/dL High 0.70-1.20 [facility] Comment on above: Performed By: #### L 500.4050, L100.0100 ####[facility] [address] [place], [address] ECRCL 20.58 ml/min Low 50-250 [facility] Comment on above: Performed By: #### L 500.4050, L100.0100 ####[facility] [address] [place], [address] GAP 13 Normal 5-15 [facility] Comment on above: Performed By: #### L 500.4050, L100.0100 ####[facility] [address] [place], [address] GFR/1.73 sq M.predicted among non-blacks MDRD (S/P/Bld) [Vol rate/Area] 19 mL/min/{1.73_m2} Low >60 [facility] Comment on above: Result Comment: mL/m in/1.73m2 CKD-EPI Creatinine Equation (2020) Performed By: #### L 500.4050, L100.0100 ####[facility] [address] [place], [address] Globulin (S) [Mass/Vol] 3.4 g/dL Normal 2.2-4.2 [facility] Comment on above: Performed By: #### L 500.4050, L100.0100 ####[facility] [address] [place], [address] Glucose [Mass/Vol] 189 mg/dL High 70-99 [facility] Comment on above: Performed By: #### L 500.4050, L100.0100 ####[facility] [address] [place], [address] Potassium [Moles/Vol] 4.7 mmol/L Normal 3.3-5.1 [facility] Comment on above: Result Comment: Hemo lysis present, Results??could be affected.?? Performed By: #### L 500.4050, L100.0100 ####[facility] [address] [place], [address] Sodium [Moles/Vol] 136 mmol/L Normal 133-145 [facility] Comment on above: Performed By: #### L 500.4050, L100.0100 ####[facility] [address] [place], [address] T PROT 6.1 g/dL Normal 5.9-8.4 [facility] Comment on above: Performed By: #### L 500.4050, L100.0100 ####[facility] [address] [place], [address] Urea nitrogen [Mass/Vol] 80 mg/dL High 4-19 [facility] Comment on above: Performed By: #### L 500.4050, L100.0100 ####[facility] [address] [place], [address] Eosinophil percentageOrdered By: Georges Duque on 07-25-2025 Eosinophils/100 WBC (Bld) 0.0 % 0-5 [facility] Immature granulocytes/100 WB C Auto (Bld)Ordered By: Georges Duque on 07-25-2025 Immature granulocytes/100 WBC (Bld) 1.500 % High 0.0-0.9 [facility] Measurement, pHOrdered By: Catia Jay on 07-25-2025 pH (Unsp spec) 7.48 [pH] High 7.35-7.45 [facility] Monocyte percentageOrdered B y: Georges Duque on 07-25-2025 Monocytes/100 WBC (Bld) 2.4 % 0-10 [facility] No Panel InformationOrdered By: Ying Jay on 07-25-2025 ART [facility] R Radial [facility] AC [facility] Adult Vent [facility] 400.0 mL [facility] 16 [facility] 5 [facility] No Panel InformationOrdered By: Georges Duque on 07-25-2025 34 U/L High <32 [facility] Partial Thromboplast Timeon 07-25-2025 aPTT Coag (Bld) [Time] 73.9 s High 24.1-36.2 [facility] Comment on above: Performed By: #### L 300.4310 ####[facility] [address] [place], [address] aPTT Coag (Bld) [Time] 63.1 s High 24.1-36.2 [facility] Comment on above: Performed By: #### L 300.4310 ####[facility] [address] [place], [address] aPTT Coag (Bld) [Time] 99.9 s Invalid Interpretation Code 24.1-36.2 [facility] Comment on above: Result Comment: CRIT ICAL VALUE CALLED TO [id number]/13/25 0206 Kraig Chapin.RESULTS READ BACK BY SAME. Performed By: #### L 300.4310 ####[facility] [address] [place], [address] Serum globulin measurementOr dered By: Georges Duque on 07-25-2025 Globulin (S) [Mass/Vol] 3.4 g/dL 2.2-4.2 [facility] Serum or plasma alanine mcgraw otransferase (ALT) measurementOrdered By: Georges Duque on 07-25-2025 ALT [Catalytic activity/Vol] 32 U/L <35 [facility] Serum or plasma albumin merritt urement (mass/volume)Ordered By: Georges Duque on 07-25-2025 Albumin [Mass/Vol] 2.7 g/dL Low 3.4-4.8 [facility] Serum or plasma albumin/glob ulin mass ratioOrdered By: Georges Duque on 07-25-2025 Albumin/Globulin [Mass ratio] 0.8 {ratio} Low 0.9-2.4 [facility] Serum or plasma alkaline fallon sphatase measurementOrdered By: Georges Duque on 07-25-2025 ALP [Catalytic activity/Vol] 103 U/L 35-104 [facility] Total carbon dioxide measure mentOrdered By: Ying Jay on 07-25-2025 CO2 [Moles/Vol] 21 mmol/L [facility] Total proteinOrdered By: Jose rodriguez Neto on 07-25-2025 Protein [Mass/Vol] 6.1 g/dL 5.9-8.4 [facility] 12 Lead EKGon 07-24-2025 12 Lead EKG Normal [facility] Bedside Glucoseon 07-24-2025 FINGERSTICK GLU 172 mg/dL High [address] [facility] Comment on above: Result Comment: RANDAL GEMENT OF PATIENT CARE PER NURSING PROTOCOL Performed By: #### L 501.080 ####[facility] [address] [facility] [address] FINGERSTICK GLU 228 mg/dL [facility]106 [facility] Comment on above: Result Comment: RANDAL GEMENT OF PATIENT CARE PER NURSING PROTOCOL Performed By: #### L 501.080 ####[facility] [address] [facility] [address] FINGERSTICK GLU 194 mg/dL High [address] [place] [address] Comment on above: Result Comment: RANDAL GEMENT OF PATIENT CARE PER NURSING PROTOCOL Performed By: #### L 501.080 ####[facility] [address] [place], [address] FINGERSTICK GLU 189 mg/dL [facility]106 [facility] Comment on above: Result Comment: RANDAL GEMENT OF PATIENT CARE PER NURSING PROTOCOL Performed By: #### L 501.080 ####[facility] [address] [place], [address] CBC W/Diff, Automatedon 10-10 14-2024 Absolute Lymph 0.32 X10 3/uL Low 0.83-4.51 [facility] Comment on above: Performed By: #### L 100.0100, L100.1300 ####[facility] [address] [place], [address] Absolute Neut 13.8 X10 3/uL High 2.0-7.7 [facility] Comment on above: Performed By: #### L 100.0100, L100.1300 ####[facility] [address] [place], [address] Basophils/100 WBC (Bld) 0.1 % Normal 0-1 [facility] Comment on above: Performed By: #### L 100.0100, L100.1300 ####[facility] [address] [place], [address] Eosinophils/100 WBC (Bld) 0.0 % Normal 0-5 [facility] Comment on above: Performed By: #### L 100.0100, L100.1300 ####[facility] [address] [place], [address] Erythrocyte distribution width (RBC) [Ratio] 13.6 % Normal 11.6-14.6 [facility] Comment on above: Performed By: #### L 100.0100, L100.1300 ####[facility] [address] [place], [address] Hematocrit (Bld) [Volume fraction] 25.6 % Low 37-47 [facility] Comment on above: Performed By: #### L 100.0100, L100.1300 ####[facility] [address] [place], [address] IG% 0.700 Normal 0.0-0.9 [facility] Comment on above: Result Comment: IG% - Immature Granulocytes (promyelocytes, myelocytes andmetamyelocytes) > 1% indicates that a LEFT SHIFT is Present. Performed By: #### L 100.0100, L100.1300 ####[facility] [address] [place], [address] Lymphocytes/100 WBC (Bld) 2.2 % Low 19-41 [facility] Comment on above: Performed By: #### L 100.0100, L100.1300 ####[facility] [address] [place], [address] MCH (RBC) [Entitic mass] 31.6 pg Normal 27.0-32.0 [facility] Comment on above: Performed By: #### L 100.0100, L100.1300 ####[facility] [address] [place], [address] MCHC (RBC) [Mass/Vol] 33.6 g/dL Normal 32-36 [facility] Comment on above: Performed By: #### L 100.0100, L100.1300 ####[facility] [address] [place], [address] MCV (RBC) [Entitic vol] 94.1 fL Normal 81-99 [facility] Comment on above: Performed By: #### L 100.0100, L100.1300 ####[facility] [address] [place], [address] Monocytes/100 WBC (Bld) 2.2 % Normal 0-10 [facility] Comment on above: Performed By: #### L 100.0100, L100.1300 ####[facility] [address] [place], [address] Neutrophils/100 WBC (Bld) 94.8 % High 47-70 [facility] Comment on above: Performed By: #### L 100.0100, L100.1300 ####[facility] [address] [place], [address] Nucleated RBC (Bld) [#/Vol] 0.1 10*3/uL Normal 0-5 [facility] Comment on above: Performed By: #### L 100.0100, L100.1300 ####[facility] [address] [place], [address] Platelet mean volume (Bld) [Entitic vol] 10.1 fL Normal 6.2-12.0 [facility] Comment on above: Performed By: #### L 100.0100, L100.1300 ####[facility] [address] [place], [address] Platelets (Bld) [#/Vol] 267 10*3/uL Normal 150-450 [facility] Comment on above: Performed By: #### L 100.0100, L100.1300 ####[facility] [address] [place], [address] RBC (Bld) [#/Vol] 2.72 10*6/uL Low 4.2-5.4 [facility] Comment on above: Performed By: #### L 100.0100, L100.1300 ####[facility] [address] [place], [address] RDW SD 46.6 fl High 35.1-43.9 [facility] Comment on above: Performed By: #### L 100.0100, L100.1300 ####[facility] [address] [place], [address] WBC (Bld) [#/Vol] 14.6 10*3/uL High 4.4-11.0 [facility] Comment on above: Performed By: #### L 100.0100, L100.1300 ####[facility] [address] [place], [address] Absolute Neut Normal 2.0-7.7 [facility] Comment on above: Order Comment: Comme nts: If not done in prior 24 hours Result Comment: ADDE D TO ORDER 1012 H49 Performed By: #### L 100.0100, L300.4310, L300.3900 ####[facility] [address] [place], [address] HCT Normal 37-47 [facility] Comment on above: Order Comment: Comme nts: If not done in prior 24 hours Result Comment: ADDE D TO ORDER 1012 H49 Performed By: #### L 100.0100, L300.4310, L300.3900 ####[facility] [address] [place], [address] HGB Normal 12.0-15.0 [facility] Comment on above: Order Comment: Comme nts: If not done in prior 24 hours Result Comment: ADDE D TO ORDER 1012 H49 Performed By: #### L 100.0100, L300.4310, L300.3900 ####[facility] [address] [place], [address] MCH Normal 27.0-32.0 [facility] Comment on above: Order Comment: Comme nts: If not done in prior 24 hours Result Comment: ADDE D TO ORDER 1012 H49 Performed By: #### L 100.0100, L300.4310, L300.3900 ####[facility] [address] [place], [address] MCHC Normal 32-36 [facility] Comment on above: Order Comment: Comme nts: If not done in prior 24 hours Result Comment: ADDE D TO ORDER 1012 H49 Performed By: #### L 100.0100, L300.4310, L300.3900 ####[facility] [address] [place], [address] MCV Normal 81-99 [facility] Comment on above: Order Comment: Comme nts: If not done in prior 24 hours Result Comment: ADDE D TO ORDER 1012 H49 Performed By: #### L 100.0100, L300.4310, L300.3900 ####[facility] [address] [place], [address] NEUT% Normal 47-70 [facility] Comment on above: Order Comment: Comme nts: If not done in prior 24 hours Result Comment: ADDE D TO ORDER 1012 H49 Performed By: #### L 100.0100, L300.4310, L300.3900 ####[facility] [address] [place], [address] PLT Normal 150-450 [facility] Comment on above: Order Comment: Comme nts: If not done in prior 24 hours Result Comment: ADDE D TO ORDER 1012 H49 Performed By: #### L 100.0100, L300.4310, L300.3900 ####[facility] [address] [place], [address] RBC Normal 4.2-5.4 [facility] Comment on above: Order Comment: Comme nts: If not done in prior 24 hours Result Comment: ADDE D TO ORDER 1012 H49 Performed By: #### L 100.0100, L300.4310, L300.3900 ####[facility] [address] [place], [address] RDW CV Normal 11.6-14.6 [facility] Comment on above: Order Comment: Comme nts: If not done in prior 24 hours Result Comment: ADDE D TO ORDER 1012 H49 Performed By: #### L 100.0100, L300.4310, L300.3900 ####[facility] [address] [place], [address] RDW SD Normal 35.1-43.9 [facility] Comment on above: Order Comment: Comme nts: If not done in prior 24 hours Result Comment: ADDE D TO ORDER 1012 H49 Performed By: #### L 100.0100, L300.4310, L300.3900 ####[facility] [address] [place], [address] WBC Normal 4.4-11.0 [facility] Comment on above: Order Comment: Comme nts: If not done in prior 24 hours Result Comment: ADDE D TO ORDER 1012 H49 Performed By: #### L 100.0100, L300.4310, L300.3900 ####[facility] [address] [place], [address] Absolute Lymph 0.30 X10 3/uL Low 0.83-4.51 [facility] Comment on above: Performed By: #### L 501.2300, L501.5200, L500.4050, L100.0100 ####[facility] [address] [place], [address] Absolute Neut 14.3 X10 3/uL High 2.0-7.7 [facility] Comment on above: Performed By: #### L 501.2300, L501.5200, L500.4050, L100.0100 ####[facility] [address] [place], [address] Basophils/100 WBC (Bld) 0.1 % Normal 0-1 [facility] Comment on above: Performed By: #### L 501.2300, L501.5200, L500.4050, L100.0100 ####[facility] [address] [place], [address] Eosinophils/100 WBC (Bld) 0.0 % Normal 0-5 [facility] Comment on above: Performed By: #### L 501.2300, L501.5200, L500.4050, L100.0100 ####[facility] [address] [place], [address] Erythrocyte distribution width (RBC) [Ratio] 13.4 % Normal 11.6-14.6 [facility] Comment on above: Performed By: #### L 501.2300, L501.5200, L500.4050, L100.0100 ####[facility] [address] [place], [address] Hematocrit (Bld) [Volume fraction] 25.1 % Low 37-47 [facility] Comment on above: Performed By: #### L 501.2300, L501.5200, L500.4050, L100.0100 ####[facility] [address] [place], [address] Hemoglobin (Bld) [Mass/Vol] 8.2 g/dL Low 12.0-15.0 [facility] Comment on above: Performed By: #### L 501.2300, L501.5200, L500.4050, L100.0100 ####[facility] [address] [place], [address] IG% 1.100 High 0.0-0.9 [facility] Comment on above: Result Comment: IG% - Immature Granulocytes (promyelocytes, myelocytes andmetamyelocytes) > 1% indicates that a LEFT SHIFT is Present. Performed By: #### L 501.2300, L501.5200, L500.4050, L100.0100 ####[facility] [address] [place], [address] Lymphocytes/100 WBC (Bld) 2.0 % Low 19-41 [facility] Comment on above: Performed By: #### L 501.2300, L501.5200, L500.4050, L100.0100 ####[facility] [address] [place], [address] MCH (RBC) [Entitic mass] 30.4 pg Normal 27.0-32.0 [facility] Comment on above: Performed By: #### L 501.2300, L501.5200, L500.4050, L100.0100 ####[facility] [address] [place], [address] MCHC (RBC) [Mass/Vol] 32.7 g/dL Normal 32-36 [facility] Comment on above: Performed By: #### L 501.2300, L501.5200, L500.4050, L100.0100 ####[facility] [address] [place], [address] MCV (RBC) [Entitic vol] 93.0 fL Normal 81-99 [facility] Comment on above: Performed By: #### L 501.2300, L501.5200, L500.4050, L100.0100 ####[facility] [address] [place], [address] Monocytes/100 WBC (Bld) 2.5 % Normal 0-10 [facility] Comment on above: Performed By: #### L 501.2300, L501.5200, L500.4050, L100.0100 ####[facility] [address] [place], [address] Neutrophils/100 WBC (Bld) 94.3 % High 47-70 [facility] Comment on above: Performed By: #### L 501.2300, L501.5200, L500.4050, L100.0100 ####[facility] [address] [place], [address] Nucleated RBC (Bld) [#/Vol] 0 10*3/uL Normal 0-5 [facility] Comment on above: Performed By: #### L 501.2300, L501.5200, L500.4050, L100.0100 ####[facility] [address] [place], [address] Platelet mean volume (Bld) [Entitic vol] 9.7 fL Normal 6.2-12.0 [facility] Comment on above: Performed By: #### L 501.2300, L501.5200, L500.4050, L100.0100 ####[facility] [address] [place], [address] Platelets (Bld) [#/Vol] 254 10*3/uL Normal 150-450 [facility] Comment on above: Performed By: #### L 501.2300, L501.5200, L500.4050, L100.0100 ####[facility] [address] [place], [address] RBC (Bld) [#/Vol] 2.70 10*6/uL Low 4.2-5.4 [facility] Comment on above: Performed By: #### L 501.2300, L501.5200, L500.4050, L100.0100 ####[facility] [address] [place], [address] RDW SD 45.9 fl High 35.1-43.9 [facility] Comment on above: Performed By: #### L 501.2300, L501.5200, L500.4050, L100.0100 ####[facility] [address] [place], [address] WBC (Bld) [#/Vol] 15.2 10*3/uL High 4.4-11.0 [facility] Comment on above: Performed By: #### L 501.2300, L501.5200, L500.4050, L100.0100 ####[facility] [address] [place], [address] [facility] Albumin [Mass/Vol] 2.7 g/dL Low 3.4-4.8 [facility] Comment on above: Performed By: #### L 501.2300, L501.5200, L500.4050, L100.0100 ####[facility] [address], [address] Albumin/Globulin [Mass ratio] 0.8 {ratio} Low 0.9-2.4 [facility] Comment on above: Performed By: #### L 501.2300, L501.5200, L500.4050, L100.0100 ####[facility] [address], [address] ALK PHOS 101 U/L Normal 35-104 [facility] Comment on above: Performed By: #### L 501.2300, L501.5200, L500.4050, L100.0100 ####[facility] [address] [place], [address] ALT [Catalytic activity/Vol] 39 U/L High <=34 [facility] Comment on above: Performed By: #### L 501.2300, L501.5200, L500.4050, L100.0100 ####[facility] [address] [place], [address] AST [Catalytic activity/Vol] 56 U/L High <=31 [facility] Comment on above: Performed By: #### L 501.2300, L501.5200, L500.4050, L100.0100 ####[facility] [address] [place], [address] Bilirubin [Mass/Vol] 0.20 mg/dL Normal 0.00-1.30 [facility] Comment on above: Performed By: #### L 501.2300, L501.5200, L500.4050, L100.0100 ####[facility] [address] [place], [address] BUN/CRE 27.3 RATIO High 10-20 [facility] Comment on above: Performed By: #### L 501.2300, L501.5200, L500.4050, L100.0100 ####[facility] [address] [place], [address] Calcium [Mass/Vol] 8.5 mg/dL Normal 7.6-11.0 [facility] Comment on above: Performed By: #### L 501.2300, L501.5200, L500.4050, L100.0100 ####[facility] [address] [place], [address] Chloride [Moles/Vol] 104 mmol/L Normal 98-108 [facility] Comment on above: Performed By: #### L 501.2300, L501.5200, L500.4050, L100.0100 ####[facility] [address] [place], [address] CO2 [Moles/Vol] 17.5 mmol/L Low 21.0-32.0 [facility] Comment on above: Performed By: #### L 501.2300, L501.5200, L500.4050, L100.0100 ####[facility] [address] [place], [address] Creatinine [Mass/Vol] 2.57 mg/dL High 0.70-1.20 [facility] Comment on above: Performed By: #### L 501.2300, L501.5200, L500.4050, L100.0100 ####[facility] [address] [place], [address] ECRCL 19.66 ml/min Low 50-250 [facility] Comment on above: Performed By: #### L 501.2300, L501.5200, L500.4050, L100.0100 ####[facility] [address] [place], [address] GAP 16 High 5-15 [facility] Comment on above: Performed By: #### L 501.2300, L501.5200, L500.4050, L100.0100 ####[facility] [address] [place], [address] GFR/1.73 sq M.predicted among non-blacks MDRD (S/P/Bld) [Vol rate/Area] 18 mL/min/{1.73_m2} Low >60 [facility] Comment on above: Result Comment: mL/m in/1.73m2 CKD-EPI Creatinine Equation (2020) Performed By: #### L 501.2300, L501.5200, L500.4050, L100.0100 ####[facility] [address] [place], [address] Globulin (S) [Mass/Vol] 3.5 g/dL Normal 2.2-4.2 [facility] Comment on above: Performed By: #### L 501.2300, L501.5200, L500.4050, L100.0100 ####[facility] [address] [place], [address] Glucose [Mass/Vol] 241 mg/dL High 70-99 [facility] Comment on above: Performed By: #### L 501.2300, L501.5200, L500.4050, L100.0100 ####[facility] [address] [place], [address] Potassium [Moles/Vol] 4.4 mmol/L Normal 3.3-5.1 [facility] Comment on above: Performed By: #### L 501.2300, L501.5200, L500.4050, L100.0100 ####[facility] [address] [place], [address] Sodium [Moles/Vol] 137 mmol/L Normal 133-145 [facility] Comment on above: Performed By: #### L 501.2300, L501.5200, L500.4050, L100.0100 ####[facility] [address] [place], [address] T PROT 6.2 g/dL Normal 5.9-8.4 [facility] Comment on above: Performed By: #### L 501.2300, L501.5200, L500.4050, L100.0100 ####[facility] [address] [place], [address] Urea nitrogen [Mass/Vol] 70 mg/dL High 4-19 [facility] Comment on above: Performed By: #### L 501.2300, L501.5200, L500.4050, L100.0100 ####[facility] [address] [place], [address] Hemoglobinon 07-24-2025 Hemoglobin (Bld) [Mass/Vol] 8.5 g/dL Low 12.0-15.0 [facility] Comment on above: Performed By: #### L 100.0100, L100.1300 ####[facility] [address] [place], [address] Magnesiumon 07-24-2025 Magnesium [Mass/Vol] 1.9 mg/dL Normal 1.5-2.2 [facility] Comment on above: Performed By: #### L 501.2300, L501.5200, L500.4050, L100.0100 ####[facility] [address] [place], [address] Magnesium measurement (mass/ volume)Ordered By: Yign Jay on 07-24-2025 Magnesium (Unsp spec) [Mass/Vol] 1.9 mg/dL 1.5-2.2 [facility] Partial Thromboplast Timeon 07-24-2025 aPTT Coag (Bld) [Time] 144.6 s Invalid Interpretation Code 24.1-36.2 [facility] Comment on above: Result Comment: CRIT ICAL VALUE CALLED TO MISAEL CORREIA07/24/252014 Lisy Dunn.RESULTS READ BACK BY SAME. Performed By: #### L 300.4310 ####[facility] [address] [place], [address] aPTT Coag (Bld) [Time] 28.4 s Normal 24.1-36.2 [facility] Comment on above: Order Comment: Comme nts: If not done in prior 24 hours Performed By: #### L 100.0100, L300.4310, L300.3900 ####[facility] [address] [place], [address] Phosphoruson 07-24-2025 Phosphate [Mass/Vol] 5.0 mg/dL High 2.7-4.5 [facility] Comment on above: Performed By: #### L 501.2300, L501.5200, L500.4050, L100.0100 ####[facility] [address] [place], [address] Prothrombin Time w/INRon INR Coag (PPP) [Relative time] 1.1 {INR} Normal [facility] Comment on above: Order Comment: Comme nts: If not done in prior 24 hours Performed By: #### L 100.0100, L300.4310, L300.3900 ####[facility] [address] [place], [address] PT Coag (PPP) [Time] 14.7 s Normal 11.7-14.9 [facility] Comment on above: Order Comment: Comme nts: If not done in prior 24 hours Performed By: #### L 100.0100, L300.4310, L300.3900 ####[facility] [address] [place], [address] Prothrombin timeOrdered By: Ying Jay on 07-24-2025 PT Coag (PPP) [Time] 14.7 s 11.7-14.9 [facility] Basic Metabolic Profile (BMP )on 07-23-2025 BUN/CRE 26.7 RATIO High 10-20 [facility] Comment on above: Performed By: #### L 100.0500, L500.2500 ####[facility] [address] [place], [address] Calcium [Mass/Vol] 8.7 mg/dL Normal 7.6-11.0 [facility] Comment on above: Performed By: #### L 100.0500, L500.2500 ####[facility] [address] [place], [address] Chloride [Moles/Vol] 100 mmol/L Normal 98-108 [facility] Comment on above: Performed By: #### L 100.0500, L500.2500 ####[facility] [address] [place], [address] CO2 [Moles/Vol] 17.6 mmol/L Low 21.0-32.0 [facility] Comment on above: Performed By: #### L 100.0500, L500.2500 ####[facility] [address] [place], [address] Creatinine [Mass/Vol] 2.18 mg/dL High 0.70-1.20 [facility] Comment on above: Performed By: #### L 100.0500, L500.2500 ####[facility] [address] [place], [address] ECRCL 23.18 ml/min Low 50-250 [facility] Comment on above: Performed By: #### L 100.0500, L500.2500 ####[facility] [address] [place], [address] GAP 16 High 5-15 [facility] Comment on above: Performed By: #### L 100.0500, L500.2500 ####[facility] [address] [place], [address] GFR/1.73 sq M.predicted among non-blacks MDRD (S/P/Bld) [Vol rate/Area] 22 mL/min/{1.73_m2} Low >60 [facility] Comment on above: Result Comment: mL/m in/1.73m2 CKD-EPI Creatinine Equation (2020) Performed By: #### L 100.0500, L500.2500 ####[facility] [address] [place], [address] Glucose [Mass/Vol] 362 mg/dL High 70-99 [facility] Comment on above: Performed By: #### L 100.0500, L500.2500 ####[facility] [address] [place], [address] Potassium [Moles/Vol] 5.0 mmol/L Normal 3.3-5.1 [facility] Comment on above: Performed By: #### L 100.0500, L500.2500 ####[facility] [address] [place], [address] Sodium [Moles/Vol] 134 mmol/L Normal 133-145 [facility] Comment on above: Performed By: #### L 100.0500, L500.2500 ####[facility] [address] [place], [address] Urea nitrogen [Mass/Vol] 58 mg/dL High 4-19 [facility] Comment on above: Performed By: #### L 100.0500, L500.2500 ####[facility] [address] [place], [address] Bedside Glucoseon 07-23-2025 FINGERSTICK GLU 276 mg/dL High 74-106 [facility] Comment on above: Result Comment: RANDAL CARTER OF PATIENT CARE PER NURSING PROTOCOL Performed By: #### L 501.080 ####[facility] [address] [place], [address] FINGERSTICK GLU 246 mg/dL High 74-106 [facility] Comment on above: Result Comment: RANDAL GEMENT OF PATIENT CARE PER NURSING PROTOCOL Performed By: #### L 501.080 ####[facility] [address] [place], [address] FINGERSTICK GLU 313 mg/dL High 74-106 [facility] Comment on above: Result Comment: RANDAL GEMENT OF PATIENT CARE PER NURSING PROTOCOL Performed By: #### L 501.080 ####[facility] [address] [place], [address] FINGERSTICK GLU 320 mg/dL High 74-106 [facility] Comment on above: Result Comment: RANDAL GEMENT OF PATIENT CARE PER NURSING PROTOCOL Performed By: #### L 501.080 ####[facility] [address] [place], [address] [facility] 07-23- 025 Base excess Calc (Bld) [Moles/Vol] -4 mmol/L Low -2 to +2 [facility] Comment on above: Performed By: #### L 9000.0800 ####[facility] [address] [place], [address] Blood Gas Type ART Normal [facility] Comment on above: Performed By: #### L 9000.0800 ####[facility] [address] [place], [address] CO2 [Moles/Vol] 23 mmol/L Normal [facility] Comment on above: Performed By: #### L 9000.0800 ####[facility] [address] [place], [address] FI02 30.0 Normal [facility] Comment on above: Performed By: #### L 9000.0800 ####[facility] [address] [place], [address] HCO3 (Bld) [Moles/Vol] 22.0 mmol/L Normal 22-26 [facility] Comment on above: Performed By: #### L 9000.0800 ####[facility] [address] [place], [address] Mode AC Normal [facility] Comment on above: Performed By: #### L 9000.0800 ####[facility] [address] [place], [address] O2 Delivery Dev Adult Vent Normal [facility] Comment on above: Performed By: #### L 9000.0800 ####[facility] [address] [place], [address] pCO2 39.2 mmHg Normal 35-45 [facility] Comment on above: Performed By: #### L 9000.0800 ####[facility] [address] [place], [address] PEEP 5 Normal [facility] Comment on above: Performed By: #### L 9000.0800 ####[facility] [address] [place], [address] pH (Bld) 7.36 [pH] Normal 7.35-7.45 [facility] Comment on above: Performed By: #### L 9000.0800 ####[facility] [address] [place], [address] PO2 84 mmHG Normal 75-100 [facility] Comment on above: Performed By: #### L 9000.0800 ####[facility] [address] [place], [address] RR 16 Normal [facility] Comment on above: Performed By: #### L 9000.0800 ####[facility] [address] [place], [address] SITE L Radial Normal [facility] Comment on above: Performed By: #### L 9000.0800 ####[facility] [address] [place], [address] SO2 96 Normal 95-99 [facility] Comment on above: Performed By: #### L 9000.0800 ####[facility] [address] [place], [address] Vt 400.0 mL Normal [facility] Comment on above: Performed By: #### L 9000.0800 ####[facility] [address] [place], [address] CBC-Complete Blood Cnt No Di ffon 07-23-2025 Erythrocyte distribution width (RBC) [Ratio] 13.5 % Normal 11.6-14.6 [facility] Comment on above: Performed By: #### L 100.0500, L500.2500 ####[facility] [address] [place], [address] Hematocrit (Bld) [Volume fraction] 29.4 % Low 37-47 [facility] Comment on above: Performed By: #### L 100.0500, L500.2500 ####[facility] [address] [place], [address] Hemoglobin (Bld) [Mass/Vol] 9.4 g/dL Low 12.0-15.0 [facility] Comment on above: Performed By: #### L 100.0500, L500.2500 ####[facility] [address] [place], [address] MCH (RBC) [Entitic mass] 30.4 pg Normal 27.0-32.0 [facility] Comment on above: Performed By: #### L 100.0500, L500.2500 ####[facility] [address] [place], [address] MCHC (RBC) [Mass/Vol] 32.0 g/dL Normal 32-36 [facility] Comment on above: Performed By: #### L 100.0500, L500.2500 ####[facility] [address] [place], [address] MCV (RBC) [Entitic vol] 95.1 fL Normal 81-99 [facility] Comment on above: Performed By: #### L 100.0500, L500.2500 ####[facility] [address] [place], [address] Platelet mean volume (Bld) [Entitic vol] 9.6 fL Normal 6.2-12.0 [facility] Comment on above: Performed By: #### L 100.0500, L500.2500 ####[facility] [address] [place], [address] Platelets (Bld) [#/Vol] 254 10*3/uL Normal 150-450 [facility] Comment on above: Performed By: #### L 100.0500, L500.2500 ####[facility] [address] [place], [address] RBC (Bld) [#/Vol] 3.09 10*6/uL Low 4.2-5.4 [facility] Comment on above: Performed By: #### L 100.0500, L500.2500 ####[facility] [address] [place], [address] RDW SD 46.9 fl High 35.1-43.9 [facility] Comment on above: Performed By: #### L 100.0500, L500.2500 ####[facility] [address] [place], [address] WBC (Bld) [#/Vol] 15.9 10*3/uL High 4.4-11.0 [facility] Comment on above: Performed By: #### L 100.0500, L500.2500 ####[facility] [address] [place], [address] CPK Total, Creatine Kinaseon 07-23-2025 CPK TOTAL 33 U/L Normal 24-195 [facility] Comment on above: Order Comment: Comme nts: DC when propofol is d/c'd Performed By: #### L 501.5000, L501.3620 ####[facility] [address] [place], [address] Consultation - Intensiviston 07-23-2025 Consultation - Recruiting Operations Consultant Normal [facility] Echocardiogram study reportO rdered By: Andreina Guardado on 07-23-2025 Study report [facility] Work Phone: Kidney and Bladderon 025 Kidney and Bladder Normal [facility] RESPIRATORY PANEL MOLECULARo n 07-23-2025 RP PANEL Normal [facility] Comment on above: Performed By: #### M 100.638 ####[facility] [address] [place], [address] Respiratory Cultureon 2024 RESPC Mixed normal respiratory michelle. No Streptococcus pneumoniae, beta-hemolytic Streptococcus or Staphylococcus aureus isolated. Normal [facility] Comment on above: Performed By: #### M 100.2400, M100.2000 ####[facility] [address] [place], [address] Serum or plasma creatine kin ase activityOrdered By: Antoni Argueta on 07-23-2025 CK [Catalytic activity/Vol] 33 U/L 24- [facility] Triglycerideson 07-23-2025 Triglyceride [Mass/Vol] 78 mg/dL Normal [facility] Comment on above: Order Comment: Comme nts: DC when propofol is d/c'dDC when propofol is d/c'd Result Comment: The drugs N-Acetylcysteine and Metamizole may falselydepress this assay.Normal range: <150 mg/dLBorderline High: 150-199 mg/dLHigh: 200-499 mg/dLVery High: >500 mg/dL Performed By: #### L 501.5000, L501.3620 ####[facility] [address] [place], [address] Urine Cultureon 07-23-2025 URC Culture exhibits no growth. Normal [facility] Comment on above: Performed By: #### M 100.2200 ####[facility] [address] [place], [address] Bilirubin Test strip Ql (U)O rdered By: Dulce Maria Raymond on 2025 Bilirubin Ql (U) Negative Negative [facility] Blood Gases by CPSon 025 MIRANDA TEST N/A Normal [facility] Comment on above: Performed By: #### L 9000.0800 ####[facility] [address] [place], [address] Base excess Calc (Bld) [Moles/Vol] -4 mmol/L Low -2 to +2 [facility] Comment on above: Performed By: #### L 9000.0800 ####[facility] [address] [place], [address] Blood Gas Type ART Normal [facility] Comment on above: Performed By: #### L 9000.0800 ####[facility] [address] [place], [address] CO2 [Moles/Vol] 21 mmol/L Normal [facility] Comment on above: Performed By: #### L 9000.0800 ####[facility] [address] [place], [address] FI02 50.0 Normal [facility] Comment on above: Performed By: #### L 9000.0800 ####[facility] [address] [place], [address] HCO3 (Bld) [Moles/Vol] 20.4 mmol/L Low 22-26 [facility] Comment on above: Performed By: #### L 9000.0800 ####[facility] [address] [place], [address] Mode AC Normal [facility] Comment on above: Performed By: #### L 9000.0800 ####[facility] [address] [place], [address] O2 Delivery Dev Adult Vent Normal [facility] Comment on above: Performed By: #### L 9000.0800 ####[facility] [address] [place], [address] pCO2 32.4 mmHg Low 35-45 [facility] Comment on above: Performed By: #### L 9000.0800 ####[facility] [address] [place], [address] PEEP 10 Normal [facility] Comment on above: Performed By: #### L 9000.0800 ####[facility] [address] [place], [address] pH (Bld) 7.41 [pH] Normal 7.35-7.45 [facility] Comment on above: Performed By: #### L 9000.0800 ####[facility] [address] [place], [address] PO2 151 mmHG High 75-100 [facility] Comment on above: Performed By: #### L 9000.0800 ####[facility] [address] [place], [address] RR 16 Normal [facility] Comment on above: Performed By: #### L 9000.0800 ####[facility] [address] [place], [address] SITE L Radial Normal [facility] Comment on above: Performed By: #### L 9000.0800 ####[facility] [address] [place], [address] SO2 99 Normal 95-99 [facility] Comment on above: Performed By: #### L 8999.08 ####[facility] [address] [place], [address] Vt 400.0 mL Normal [facility] Comment on above: Performed By: #### L 8999.0800 ####[facility] [address] [place], [address] [facility] Comment on above: Performed By: #### L 8999.0800 ####[facility] [address] [place], [address] Base excess Calc (Bld) [Moles/Vol] -6 mmol/L Low -2 to +2 [facility] Comment on above: Performed By: #### L 8999.08 ####[facility] [address] [place], [address] Blood Gas Type ART Normal [facility] Comment on above: Performed By: #### L 8999.08 ####[facility] [address] [place], [address] CO2 [Moles/Vol] 21 mmol/L Normal [facility] Comment on above: Performed By: #### L 8999.08 ####[facility] [address] [place], [address] Comment 15 6 Normal [facility] Comment on above: Performed By: #### L 8999.08 ####[facility] [address] [place], [address] FI02 40.0 Normal [facility] Comment on above: Performed By: #### L 8999.0800 ####[facility] [address] [place], [address] HCO3 (Bld) [Moles/Vol] 20.0 mmol/L Low 22-26 [facility] Comment on above: Performed By: #### L 9000.0800 ####[facility] [address] [place], [address] Mode Not entered Normal [facility] Comment on above: Performed By: #### L 0.0800 ####[facility] [address] [place], [address] O2 Delivery Dev BiPAP Normal [facility] Comment on above: Performed By: #### L 9000.0800 ####[facility] [address] [place], [address] pCO2 39.6 mmHg Normal 35-45 [facility] Comment on above: Performed By: #### L 0.0800 ####[facility] [address] [place], [address] pH (Bld) 7.31 [pH] Low 7.35-7.45 [facility] Comment on above: Performed By: #### L 9000.0800 ####[facility] [address] [place], [address] PO2 82 mmHG Normal 75-100 [facility] Comment on above: Performed By: #### L 9000.0800 ####[facility] [address] [place], [address] SITE R Brach Normal [facility] Comment on above: Performed By: #### L 9000.0800 ####[facility] [address] [place], [address] SO2 95 Normal 95-99 [facility] Comment on above: Performed By: #### L 9000.0800 ####[facility] [address] [place], [address] Blood cultureOrdered By: Chinyere Raymond on 2025 Bacteria identified Cx Nom (Bld) No growth in 5 days. [facility] CBC W/Diff, Automatedon - 0-2024 Absolute Lymph 0.75 X10 3/uL Low 0.83-4.51 [facility] Comment on above: Performed By: #### L 500.4050, L100.0100 ####[facility] [address] [place], [address] Absolute Neut 14.8 X10 3/uL High 2.0-7.7 [facility] Comment on above: Performed By: #### L 500.4050, L100.0100 ####[facility] [address] [place], [address] Basophils/100 WBC (Bld) 0.2 % Normal 0-1 [facility] Comment on above: Performed By: #### L 500.4050, L100.0100 ####[facility] [address] [place], [address] Eosinophils/100 WBC (Bld) 0.4 % Normal 0-5 [facility] Comment on above: Performed By: #### L 500.4050, L100.0100 ####[facility] [address] [place], [address] Erythrocyte distribution width (RBC) [Ratio] 13.5 % Normal 11.6-14.6 [facility] Comment on above: Performed By: #### L 500.4050, L100.0100 ####[facility] [address] [place], [address] Hematocrit (Bld) [Volume fraction] 28.8 % Low 37-47 [facility] Comment on above: Performed By: #### L 500.4050, L100.0100 ####[facility] [address] [place], [address] Hemoglobin (Bld) [Mass/Vol] 9.1 g/dL Low 12.0-15.0 [facility] Comment on above: Performed By: #### L 500.4050, L100.0100 ####[facility] [address] [place], [address] IG% 1.000 High 0.0-0.9 [facility] Comment on above: Result Comment: IG% - Immature Granulocytes (promyelocytes, myelocytes andmetamyelocytes) > 1% indicates that a LEFT SHIFT is Present. Performed By: #### L 500.4050, L100.0100 ####[facility] [address] [place], [address] Lymphocytes/100 WBC (Bld) 4.4 % Low 19-41 [facility] Comment on above: Performed By: #### L 500.4050, L100.0100 ####[facility] [address] [place], [address] MCH (RBC) [Entitic mass] 31.4 pg Normal 27.0-32.0 [facility] Comment on above: Performed By: #### L 500.4050, L100.0100 ####[facility] [address] [place], [address] MCHC (RBC) [Mass/Vol] 31.6 g/dL Low 32-36 [facility] Comment on above: Performed By: #### L 500.4050, L100.0100 ####[facility] [address] [place], [address] MCV (RBC) [Entitic vol] 99.3 fL High 81-99 [facility] Comment on above: Performed By: #### L 500.4050, L100.0100 ####[facility] [address] [place], [address] Monocytes/100 WBC (Bld) 6.7 % Normal 0-10 [facility] Comment on above: Performed By: #### L 500.4050, L100.0100 ####[facility] [address] [place], [address] Neutrophils/100 WBC (Bld) 87.3 % High 47-70 [facility] Comment on above: Performed By: #### L 500.4050, L100.0100 ####[facility] [address] [place], [address] Nucleated RBC (Bld) [#/Vol] 0 10*3/uL Normal 0-5 [facility] Comment on above: Performed By: #### L 500.4050, L100.0100 ####[facility] [address] [place], [address] Platelet mean volume (Bld) [Entitic vol] 9.4 fL Normal 6.2-12.0 [facility] Comment on above: Performed By: #### L 500.4050, L100.0100 ####[facility] [address] [place], [address] Platelets (Bld) [#/Vol] 230 10*3/uL Normal 150-450 [facility] Comment on above: Performed By: #### L 500.4050, L100.0100 ####[facility] [address] [place], [address] RBC (Bld) [#/Vol] 2.90 10*6/uL Low 4.2-5.4 [facility] Comment on above: Performed By: #### L 500.4050, L100.0100 ####[facility] [address] [place], [address] RDW SD 49.3 fl High 35.1-43.9 [facility] Comment on above: Performed By: #### L 500.4050, L100.0100 ####[facility] [address] [place], [address] WBC (Bld) [#/Vol] 17.0 10*3/uL High 4.4-11.0 [facility] Comment on above: Performed By: #### L 500.4050, L100.0100 ####[facility] [address] [place], [address] CTA Chest W/WO Contraston CTA Chest W/WO Contrast Normal [facility] Chest 1 View (Portable)on Chest 1 View (Portable) Normal [facility] Chest 1 View (Portable) Normal [facility] Chest 1 View (Portable) Normal [facility] Comprehensive Metabolic Prof ilon 2025 Albumin [Mass/Vol] 3.3 g/dL Low 3.4-4.8 [facility] Comment on above: Performed By: #### L 500.4050, L100.0100 ####[facility] [address] [place], [address] Albumin/Globulin [Mass ratio] 0.8 {ratio} Low 0.9-2.4 [facility] Comment on above: Performed By: #### L 500.4050, L100.0100 ####[facility] [address] [place], [address] ALK PHOS 132 U/L High 35-104 [facility] Comment on above: Performed By: #### L 500.4050, L100.0100 ####[facility] [address] [place], [address] ALT [Catalytic activity/Vol] 30 U/L Normal <=34 [facility] Comment on above: Performed By: #### L 500.4050, L100.0100 ####[facility] [address] [place], [address] AST [Catalytic activity/Vol] 55 U/L High <=31 [facility] Comment on above: Performed By: #### L 500.4050, L100.0100 ####[facility] [address] [place], [address] Bilirubin [Mass/Vol] 0.40 mg/dL Normal 0.00-1.30 [facility] Comment on above: Performed By: #### L 500.4050, L100.0100 ####[facility] [address] [place], [address] BUN/CRE 24.5 RATIO High 10-20 [facility] Comment on above: Performed By: #### L 500.4050, L100.0100 ####[facility] [address] [place], [address] Calcium [Mass/Vol] 8.6 mg/dL Normal 7.6-11.0 [facility] Comment on above: Performed By: #### L 500.4050, L100.0100 ####[facility] [address] [place], [address] Chloride [Moles/Vol] 102 mmol/L Normal 98-108 [facility] Comment on above: Performed By: #### L 500.4050, L100.0100 ####[facility] [address] [place], [address] CO2 [Moles/Vol] 19.0 mmol/L Low 21.0-32.0 [facility] Comment on above: Performed By: #### L 500.4050, L100.0100 ####[facility] [address] [place], [address] Creatinine [Mass/Vol] 2.04 mg/dL High 0.70-1.20 [facility] Comment on above: Performed By: #### L 500.4050, L100.0100 ####[facility] [address] [place], [address] ECRCL 24.23 ml/min Low 50-250 [facility] Comment on above: Performed By: #### L 500.4050, L100.0100 ####[facility] [address] [place], [address] GAP 12 Normal 5-15 [facility] Comment on above: Performed By: #### L 500.4050, L100.0100 ####[facility] [address] [place], [address] GFR/1.73 sq M.predicted among non-blacks MDRD (S/P/Bld) [Vol rate/Area] 24 mL/min/{1.73_m2} Low >60 [facility] Comment on above: Result Comment: mL/m in/1.73m2 CKD-EPI Creatinine Equation (2020) Performed By: #### L 500.4050, L100.0100 ####[facility] [address] [place], [address] Globulin (S) [Mass/Vol] 3.9 g/dL Normal 2.2-4.2 [facility] Comment on above: Performed By: #### L 500.4050, L100.0100 ####[facility] [address] [place], [address] Glucose [Mass/Vol] 232 mg/dL High 70-99 [facility] Comment on above: Performed By: #### L 500.4050, L100.0100 ####[facility] [address] [place], [address] Potassium [Moles/Vol] 5.4 mmol/L High 3.3-5.1 [facility] Comment on above: Performed By: #### L 500.4050, L100.0100 ####[facility] [address] [place], [address] Sodium [Moles/Vol] 133 mmol/L Normal 133-145 [facility] Comment on above: Performed By: #### L 500.4050, L100.0100 ####[facility] [address] [place], [address] T PROT 7.1 g/dL Normal 5.9-8.4 [facility] Comment on above: Performed By: #### L 500.4050, L100.0100 ####[facility] [address] [place], [address] Urea nitrogen [Mass/Vol] 50 mg/dL High 4-19 [facility] Comment on above: Performed By: #### L 500.4050, L100.0100 ####[facility] [address] [place], [address] Echo Complete W/ Contraston 2025 Echo Complete W/ Contrast Normal [facility] Emergency Department Summary on 2025 Emergency Department Summary Normal [facility] Gram stainOrdered By: Keturah Luis on 2025 Microscopic observation Gram stain Nom (Unsp spec) [facility] H AND P Exam - Hospitaliston 2025 H&P Exam - Hospitalist Normal [facility] Hemoglobin A1con 2025 HbA1c (Bld) [Mass fraction] 6.4 % High <=5.6 [facility] Comment on above: Result Comment: Norm al < 5.7 % Prediabetic 5.7 - 6.4 % Diabetic >or= 6.5 % Please note range changes. Performed By: #### L 501.9985 ####[facility] [address] [place], [address] Hemoglobin A1c percentageOrd ered By: Antoni Argueta on 2025 HbA1c (Bld) [Mass fraction] 6.4 % High <5.7 [facility] Influenza virus A and B and SARS-CoV-2 (COVID-19) and Respiratory syncytial virus RNAOrdered By: Dulce Maria Raymond on 2025 SARS-CoV-2 (COVID-19) RNA KISHORE+probe Ql (Unsp spec) [facility] Ketones Test strip Ql (U)Ord ered By: Dulce Maria Raymond on 2025 Ketones Ql (U) Negative Negative [facility] L501.4021on 2025 Trop T High Sen 40 ng/L High <=14 [facility] Comment on above: Performed By: #### L 501.4021, M200.1000, L503.7505, L503.6005 ####[facility] [address] [place], [place], [address] L509.7001on 2025 Procalcitonin 0.68 ng/mL High <=0.10 [facility] Comment on above: Result Comment: Inte rpretation:<0.10-0.25 [...] the patient. Performed By: #### L 509.7001 ####[facility] [address] [place], [place], [address] Lactic Acidon 2025 Lactate [Moles/Vol] mmol/L Normal 0.0-2.0 [facility] Comment on above: Order Comment: Y Performed By: #### L 501.4021, M200.1000, L503.7505, L503.6005 ####[facility] [address] [place], [address] M100.678on 2025 M100.678 Pending SARS-CoV-2 (COVID 19) Negative INFLUENZA A Negative INFLUENZA B Negative RSV PCR Negative Normal [facility] Comment on above: Performed By: #### M 100.678 ####[facility] [address] [place], [address] MR/CON.PCM.GIon 2025 MR/CON.PCM.GI Normal [facility] Microbial respiratory cultur eOrdered By: Antoni Argueta on 2025 Microorganism identified Cx Nom (Unsp spec) or Staphylococcus aureus isolated. [facility] Mucus LM Ql (Urine sed)Order ed By: Dulce Maria Raymond on 2025 Mucus Ql (Urine sed) 0 SEEN /hpf [facility] Natriuretic peptide.B prohor mago N-Terminal [Mass/volume] in Serum or PlasmaOrdered By: Dulce Maria Raymond on 2025 Natriuretic peptide.B prohormone N-Terminal [Mass/Vol] 5405 pg/mL High <1800 [facility] Nitrite Test strip Ql (U)Ord ered By: Dulce Maria Raymond on 2025 Nitrite Ql (U) Negative Negative [facility] No Panel InformationOrdered By: Dulce Maria Raymond on 2025 [address] [facility] [address] RAYMOND [facility] Yes [facility] Pro- Brain NATRIURETIC PEPTI Varghese 2025 Natriuretic peptide B (Bld) [Mass/Vol] 5405 pg/mL High <=1800 [facility] Comment on above: Result Comment: Hear t Failure Unlikely: < 300 pg/mLHeart Failure Likely< 50 Years: > 450 pg/mL50-75 Years: > 900 pg/mL>75 Years: > 1800 pg/mL Performed By: #### L 501.4021, M200.1000, L503.7505, L503.6005 ####[facility] [address] [place], [address] Procalcitonin [Mass/volume] in Serum or Plasma by ImmunoassayOrdered By: Antoni Argueta on 2025 Procalcitonin IA [Mass/Vol] 0.68 ng/mL High <0.11 [facility] Procedure Reporton Procedure Report Normal [facility] Protein Test strip Ql (U)Ord ered By: Dulce Maria Raymond on 2025 Protein Ql (U) 100 mg/dl High Negative [facility] Respiratory pathogens detect ion panel by molecular detection methodOrdered By: Antoni Argueta on 2025 Respiratory pathogens DNA and RNA panel KISHORE+probe (Resp) [facility] Soft Tissue Neck WITH Contra ston 2025 Soft Tissue Neck WITH Contrast Normal [facility] Squamous epithelial cells de tection in urine sediment by light microscopyOrdered By: Dulce Maria Raymond on 2025 Epithelial cells.squamous LM Ql (Urine sed) 0 SEEN /hpf 10 [facility] Troponin T HS 2 HRon 025 Trop T High Sen 39 ng/L High <=14 [facility] Comment on above: Performed By: #### L 499.0042 ####[facility] [address] [place], [address] Troponin T HS 4 HRon 025 Trop T High Sen 38 ng/L High <=14 [facility] Comment on above: Performed By: #### L 499.0043 ####[facility] [address] [place], [address] Troponin T.cardiac [Mass/vol ume] in Serum or Plasma by High sensitivity methodOrdered By: Dulce Maria Raymond on 2025 Troponin T.cardiac High sensitivity method [Mass/Vol] 38 ng/L High <14 [facility] Troponin T.cardiac High sensitivity method [Mass/Vol] 39 ng/L High <14 [facility] Troponin T.cardiac High sensitivity method [Mass/Vol] 40 ng/L High <14 [facility] Urinalysis, Completeon 07-22 BACTERIA 0 SEEN Normal None Seen [facility] Comment on above: Order Comment: NICKIE TER SPECIMEN Performed By: #### L 400.0001 ####[facility] [address] [place], [address] EPI,SQUAMOUS 0 SEEN Normal 5-10 [facility] Comment on above: Order Comment: NICKIE TER SPECIMEN Performed By: #### L 400.0001 ####[facility] [address] [place], [address] Mucus Ql (Urine sed) 0 SEEN Normal [facility] Comment on above: Order Comment: NICKIE TER SPECIMEN Performed By: #### L 400.0001 ####[facility] [address] [place], [address] RBC 0 SEEN Normal 0-5 [facility] Comment on above: Order Comment: NICKIE TER SPECIMEN Performed By: #### L 400.0001 ####[facility] [address] [place], [address] WBC 0 SEEN Normal 0-5 [facility] Comment on above: Order Comment: NICKIE TER SPECIMEN Performed By: #### L 400.0001 ####[facility] [address] [place], [address] Urine clarityOrdered By: Chinyere Raymond on 2025 Clarity (U) Clear Clear [facility] Urine color determinationOrd ered By: Dulce Maria Raymond on 2025 Color (U) Yellow Yellow [facility] Urine cultureOrdered By: Chinyere Raymond on 2025 Bacteria identified Cx Nom (U) Culture exhibits no growth. [facility] Urine glucose detectionOrder ed By: Dulce Maria Raymond on 2025 Glucose Ql (U) Normal mg/dl Normal [facility] Urine leukocyte esterase det ection by dipstickOrdered By: Dulce Maria Raymond on 2025 Leukocyte esterase Test strip Ql (U) 25 /ul High Negative [facility] Urine pHOrdered By: Dulce Maria marlow on 2025 pH (U) 6.0 [pH] 5.0 - 8.0 [facility] Urine sediment bacteria coun t by microscopy (number/high power field)Ordered By: Dulce Maria Raymond on 2025 Bacteria LM.HPF (Urine sed) [#/Area] 0 /[HPF] None Seen [facility] Urine specific gravity measu rementOrdered By: Dulce Maria Raymond on 2025 Specific gravity (U) [Rel density] 1.015 1.002-1.030 [facility] Urine urobilinogen measureme ntOrdered By: Dulce Maria Raymond on 2025 Urobilinogen Ql (U) 1 mg/dl High Normal [facility] White blood cell countOrdere d By: Dulce Maria Raymond on 2025 White blood cell count 0 SEEN /hpf 0-5 [facility] BD BONE DENSITY DEXA AXIAL S [...] T-scores are at or below -2.5. The OF f/k/a NOF recommends that FDA-approved medical therapies [...] 05/23/2025 2:24:13 PM Ordering Provider: TAYLOR TAYLOR [facility] Anion gap in Serum or Plasma Ordered By: Jane Jay on 12-24-2024 Anion gap [Moles/Vol] 13 mmol/L 02-24 [facility] BUN/creatinine ratioOrdered By: Jane Jay on 12-24-2024 Urea nitrogen/Creatinine [Mass ratio] 16.1 mg/mg 08-01 [facility] Basic Metabolic Profile (BMP )on 12-24-2024 BUN/CRE 16.1 RATIO Normal 08-01 [facility] Comment on above: Performed By: #### L 500.2500, L509.1000 ####[facility] [address] [place], [address] GAP 13 Normal 02-24 [facility] Comment on above: Performed By: #### L 500.2500, L509.1000 ####[facility] [address] [place], [address] GFR/1.73 sq M.predicted among non-blacks MDRD (S/P/Bld) [Vol rate/Area] 27 mL/min/{1.73_m2} Low >60 [facility] Comment on above: Result Comment: mL/m in/1.73m2 CKD-EPI Creatinine Equation (2020) Performed By: #### L 500.2500, L509.1000 ####[facility] [address] [place], [address] Carbon dioxide, total [Moles /volume] in Central venous bloodOrdered By: Jane Jay on 12-24-2024 CO2 [Moles/Vol] 21.7 mmol/L Normal 21.0-32.0 [facility] Comment on above: Performed By: #### L 500.2500, L509.1000 ####[facility] [address] [place], [address] Chloride assayOrdered By: Kelli Jay on 12-24-2024 Chloride [Moles/Vol] 105 mmol/L Normal 98-108 [facility] Comment on above: Performed By: #### L 500.2500, L509.1000 ####[facility] [address] [place], [address] GFR/1.73 sq M.predicted jessi g non-blacks MDRD (S/P/Bld) [Vol rate/Area]Ordered By: Jane Jay on 12-24-2024 Estimated GFR (MDRD) Non-Af Amer 27 Low >60 [facility] Comment on above: mL/min/1.73m2 CKD-EP I Creatinine Equation (2020) PTH intactOrdered By: Laith Jay on 12-24-2024 Parathyroid Hormone (Intact) 172 pg/mL High 11- [facility] PTHINon 12-24-2024 PTH 172 pg/mL High [facility] Comment on above: Performed By: #### L 500.2500, L509.1000 ####[facility] [address] [place], [address] Potassium measurement (mass/ volume)Ordered By: Jane Jay on 12-24-2024 Potassium [Moles/Vol] 4.8 mmol/L Normal 3.3-5.1 [facility] Comment on above: Performed By: #### L 500.2500, L509.1000 ####[facility] [address] [place], [address] Serum creatinine measurement (mass/volume)Ordered By: Jane Jay on 12-24-2024 Creatinine [Mass/Vol] 1.88 mg/dL High 0.70-1.20 [facility] Comment on above: Performed By: #### L 500.2500, L509.1000 ####[facility] [address] [place], [address] Serum glucose measurement (m ass/volume)Ordered By: Jane Jay on 12-24-2024 Glucose [Mass/Vol] 131 mg/dL High 70-99 [facility] Comment on above: Performed By: #### L 500.2500, L509.1000 ####[facility] [address] [place], [address] Serum or plasma calcium merritt urement (mass/volume)Ordered By: Jane Jay on 12-24-2024 Calcium [Mass/Vol] 8.9 mg/dL Normal 7.6-11.0 [facility] Comment on above: Performed By: #### L 500.2500, L509.1000 ####[facility] [address] [place], [address] Serum or plasma urea nitroge n measurement (mass/volume)Ordered By: Jane Jay on 12-24-2024 Urea nitrogen [Mass/Vol] 30 mg/dL High 4-19 [facility] Comment on above: Performed By: #### L 500.2500, L509.1000 ####[facility] [address] [place], [address] Sodium levelOrdered By: Connie Jay on 12-24-2024 Sodium [Moles/Vol] 140 mmol/L Normal 133-145 [facility] Comment on above: Performed By: #### L 500.2500, L509.1000 ####[facility] [address] [place], [address] Albumin DL <= 20 mg/L (U) [M ass/Vol]Ordered By: Jane Jay on 12-17-2024 Urine Random Microalbumin 147.0 mg/L NO RANGE EST. [facility] Anion gap in Serum or Plasma Ordered By: Jane Jay on 12-17-2024 Anion gap [Moles/Vol] 13 mmol/L 5-15 [facility] BUN/creatinine ratioOrdered By: Jane Jay on 12-17-2024 Urea nitrogen/Creatinine [Mass ratio] 17.9 mg/mg 10-20 [facility] CBC-Complete Blood Cnt No Di ffon 12-17-2024 Erythrocyte distribution width (RBC) [Ratio] 13.8 % Normal 11.6-14.6 [facility] Comment on above: Performed By: #### L 500.3600, L100.0500, L502.0250 ####[facility] [address] [place], [address] Hematocrit (Bld) [Volume fraction] 29.7 % Low 37-47 [facility] Comment on above: Performed By: #### L 500.3600, L100.0500, L502.0250 ####[facility] [address] [place], [address] Hemoglobin (Bld) [Mass/Vol] 9.3 g/dL Low 12.0-15.0 [facility] Comment on above: Performed By: #### L 500.3600, L100.0500, L502.0250 ####[facility] [address] [place], [address] MCH (RBC) [Entitic mass] 31.6 pg Normal 27.0-32.0 [facility] Comment on above: Performed By: #### L 500.3600, L100.0500, L502.0250 ####[facility] [address] [place], [address] MCHC (RBC) [Mass/Vol] 31.3 g/dL Low 32-36 [facility] Comment on above: Performed By: #### L 500.3600, L100.0500, L502.0250 ####[facility] [address] [place], [address] MCV (RBC) [Entitic vol] 101.0 fL High 81-99 [facility] Comment on above: Performed By: #### L 500.3600, L100.0500, L502.0250 ####[facility] [address] [place], [address] Platelet mean volume (Bld) [Entitic vol] 9.4 fL Normal 6.2-12.0 [facility] Comment on above: Performed By: #### L 500.3600, L100.0500, L502.0250 ####[facility] [address] [place], [address] Platelets (Bld) [#/Vol] 215 10*3/uL Normal 150-450 [facility] Comment on above: Performed By: #### L 500.3600, L100.0500, L502.0250 ####[facility] [address] [place], [address] RBC (Bld) [#/Vol] 2.94 10*6/uL Low 4.2-5.4 [facility] Comment on above: Performed By: #### L 500.3600, L100.0500, L502.0250 ####[facility] [address] [place], [address] RDW SD 50.9 fl High 35.1-43.9 [facility] Comment on above: Performed By: #### L 500.3600, L100.0500, L502.0250 ####[facility] [address] [place], [address] WBC (Bld) [#/Vol] 7.1 10*3/uL Normal 4.4-11.0 [facility] Comment on above: Performed By: #### L 500.3600, L100.0500, L502.0250 ####[facility] [address] [place], [address] Carbon dioxide, total [Moles /volume] in Central venous bloodOrdered By: Jane Jay on 12-17-2024 CO2 [Moles/Vol] 21.0 mmol/L 21.0-32.0 [facility] Chloride assayOrdered By: Kelli Jay on 12-17-2024 Chloride [Moles/Vol] 106 mmol/L 98-108 [facility] Creatinine Unsp time (U) [Ma ss/Vol]Ordered By: Jane Jay on 12-17-2024 Creatinine (U) [Mass/Vol] 45.90 mg/dL 28-217 [facility] Erythrocyte distribution wid th ratioOrdered By: Jane Jay on 12-17-2024 Erythrocyte distribution width (RBC) [Ratio] 13.8 % 11.6-14.6 [facility] Erythrocyte distribution wid th standard deviationOrdered By: Jane Jay on 12-17-2024 Erythrocyte distribution width (RBC) [Entitic vol] 50.9 fL High 35.1-43.9 [facility] GFR/1.73 sq M.predicted jessi g non-blacks MDRD (S/P/Bld) [Vol rate/Area]Ordered By: Jane Jay on 12-17-2024 Estimated GFR (MDRD) Non-Af Amer 27 Low >60 [facility] Comment on above: mL/min/1.73m2 CKD-EP I Creatinine Equation (2020) Hematocrit Auto (Bld) [Volum e fraction]Ordered By: Jane Jay on 12-17-2024 Hematocrit (Bld) [Volume fraction] 29.7 % Low 37-47 [facility] Hemoglobin measurementOrdere d By: Jane Jay on 12-17-2024 Hemoglobin (Bld) [Mass/Vol] 9.3 g/dL Low 12.0-15.0 [facility] MCV (mean corpuscular volume ) determinationOrdered By: Jane Jay on 12-17-2024 MCV (RBC) [Entitic vol] 101.0 fL High 81-99 [facility] Mean corpuscular hemoglobin (MCH) determinationOrdered By: Jane Jay on 12-17-2024 MCH (RBC) [Entitic mass] 31.6 pg 27.0-32.0 [facility] Mean corpuscular hemoglobin concentration (MCHC) determinationOrdered By: Jane Jay on 12-17-2024 MCHC (RBC) [Mass/Vol] 31.3 g/dL Low 32-36 [facility] Mean platelet volume determi nationOrdered By: Jane Jay on 12-17-2024 Platelet mean volume (Bld) [Entitic vol] 9.4 fL 6.2-12.0 [facility] Microalb:Creat Ratio,Random URon 12-17-2024 Creatinine [Mass/Vol] 45.90 mg/dL Normal 28-217 [facility] Comment on above: Performed By: #### L 500.3600, L100.0500, L502.0250 ####[facility] [address] [place], [address] MALB:CREAT 3202.6 mg/g CRE Normal [facility] Comment on above: Performed By: #### L 500.3600, L100.0500, L502.0250 ####[facility] [address] [place], [address] MICROALBUMIN,UR 147.0 mg/L Normal NO RANGE EST. [facility] Comment on above: Performed By: #### L 500.3600, L100.0500, L502.0250 ####[facility] [address] [place], [address] Microalbumin/creat ratio urO rdered By: Jane Jay on 12-17-2024 Urine Microalbumin/Creatinine Ratio 3202.6 mg/g CRE [facility] Platelet countOrdered By: Kelli Jay on 12-17-2024 Platelets (Bld) [#/Vol] 215 10*3/uL 150-450 [facility] Potassium (Unsp spec) [Mass/ Vol]Ordered By: Jane Jay on 12-17-2024 Potassium [Moles/Vol] 5.6 mmol/L High 3.3-5.1 [facility] RBC Auto (Bld) [#/Vol]Ordere remington By: Jane Pierre on 12-17-2024 RBC (Bld) [#/Vol] 2.94 10*6/uL Low 4.2-5.4 [facility] Renal Profileon 12-17-2024 Albumin [Mass/Vol] 3.8 g/dL Normal 3.4-4.8 [facility] Comment on above: Performed By: #### L 500.3600, L100.0500, L502.0250 ####[facility] [address] [place], [address] BUN/CRE 17.9 RATIO Normal 10-20 [facility] Comment on above: Performed By: #### L 500.3600, L100.0500, L502.0250 ####[facility] [address] [place], [address] Calcium [Mass/Vol] 9.2 mg/dL Normal 7.6-11.0 [facility] Comment on above: Performed By: #### L 500.3600, L100.0500, L502.0250 ####[facility] [address] [place], [address] Chloride [Moles/Vol] 106 mmol/L Normal 98-108 [facility] Comment on above: Performed By: #### L 500.3600, L100.0500, L502.0250 ####[facility] [address] [place], [address] CO2 [Moles/Vol] 21.0 mmol/L Normal 21.0-32.0 [facility] Comment on above: Performed By: #### L 500.3600, L100.0500, L502.0250 ####[facility] [address] [place], [address] Creatinine [Mass/Vol] 1.88 mg/dL High 0.70-1.20 [facility] Comment on above: Performed By: #### L 500.3600, L100.0500, L502.0250 ####[facility] [address] [place], [address] GAP 13 Normal 5-15 [facility] Comment on above: Performed By: #### L 500.3600, L100.0500, L502.0250 ####[facility] [address] [place], [address] GFR/1.73 sq M.predicted among non-blacks MDRD (S/P/Bld) [Vol rate/Area] 27 mL/min/{1.73_m2} Low >60 [facility] Comment on above: Result Comment: mL/m in/1.73m2 CKD-EPI Creatinine Equation (2020) Performed By: #### L 500.3600, L100.0500, L502.0250 ####[facility] [address] [place], [address] Glucose [Mass/Vol] 112 mg/dL High 70-99 [facility] Comment on above: Performed By: #### L 500.3600, L100.0500, L502.0250 ####[facility] [address] [place], [address] Phosphate [Mass/Vol] 3.8 mg/dL Normal 2.7-4.5 [facility] Comment on above: Performed By: #### L 500.3600, L100.0500, L502.0250 ####[facility] [address] [place], [address] Potassium [Moles/Vol] 5.6 mmol/L High 3.3-5.1 [facility] Comment on above: Performed By: #### L 500.3600, L100.0500, L502.0250 ####[facility] [address] [place], [address] Sodium [Moles/Vol] 141 mmol/L Normal 133-145 [facility] Comment on above: Performed By: #### L 500.3600, L100.0500, L502.0250 ####[facility] [address] [place], [address] Urea nitrogen [Mass/Vol] 34 mg/dL High - [facility] Comment on above: Performed By: #### L 500.3600, L100.0500, L502.0250 ####[facility] [address] [place], [address] Serum creatinine measurement (mass/volume)Ordered By: Jane Jay on 12-17-2024 Creatinine [Mass/Vol] 1.88 mg/dL High 0.70-1.20 [facility] Serum glucose measurement (m ass/volume)Ordered By: Jane Jay on 12-17-2024 Glucose [Mass/Vol] 112 mg/dL High 70-99 [facility] Serum or plasma albumin merritt urement (mass/volume)Ordered By: Jane Jay on 12-17-2024 Albumin [Mass/Vol] 3.8 g/dL 3.4-4.8 [facility] Serum or plasma calcium merritt urement (mass/volume)Ordered By: Jane Jay on 12-17-2024 Calcium [Mass/Vol] 9.2 mg/dL 7.6-11.0 [facility] Serum or plasma urea nitroge n measurement (mass/volume)Ordered By: Jane Jay on 12-17-2024 Urea nitrogen [Mass/Vol] 34 mg/dL High - [facility] Serum phosphorus measurement Ordered By: Jane Jay on 12-17-2024 Phosphorus Level 3.8 mg/dL 2.7-4.5 [facility] Sodium levelOrdered By: Connie Jay on 12-17-2024 Sodium [Moles/Vol] 141 mmol/L 133-145 [facility] White blood cell (WBC) count Ordered By: Jane Jay on 12-17-2024 WBC (Bld) [#/Vol] 7.1 10*3/uL 4.4-11.0 [facility] OXACILLIN:SUSC:PT:ISOLATE:OR DQN:MICon 06-17-2024 Oxacillin WILMAN [Susc] Few Staphylococcus aureus [facility] Work Phone: Oxacillin WILMAN [Susc]on 06-17 GS No organisms seen. [facility] Work Phone: Staphylococcus aureus Staphylococcus aureus [facility] Work Phone: Basophil percentageOrdered B y: Jane Jay on 11-18-2023 Hemoglobin (Bld) [Mass/Vol] 8.8 g/dL 12.0-15.0 [facility] WBC (Bld) [#/Vol] 6.6 10*3/uL 4.4-11.0 [facility] Determination of erythrocyte mean corpuscular volume (MCV)Ordered By: Jane Jay on 11-18-2023 MCV (RBC) [Entitic vol] 100.7 fL 81-99 [facility] Erythrocyte distribution wid th ratioOrdered By: Jane Jay on 11-18-2023 Erythrocyte distribution width (RBC) [Ratio] 15.1 % 11.6-14.6 [facility] Erythrocyte distribution wid th standard deviationOrdered By: Jane Jay on 11-18-2023 Erythrocyte distribution width (RBC) [Entitic vol] 55.8 fL 35.1-43.9 [facility] Hematocrit Auto (Bld) [Volum e fraction]Ordered By: Jane Jay on 11-18-2023 Hematocrit (Bld) [Volume fraction] 30.5 % 37-47 [facility] Laboratory - Hematology and Cell countsOrdered By: Jane Jay on 11-18-2023 MCH (RBC) [Entitic mass] 29.0 pg 27.0-32.0 [facility] MCHC (RBC) [Mass/Vol] 28.9 g/dL 32-36 [facility] Platelet mean volume (Bld) [Entitic vol] 11.1 fL 6.2-12.0 [facility] Platelets (Bld) [#/Vol] 145 10*3/uL 150-450 [facility] No Panel InformationOrdered By: Jane Jay on 11-18-2023 Parathyroid Hormone (Intact) 111.4 pg/mL 18.4-80.1 [facility] Vitamin D 25-Hydroxy 63.5 ng/mL [facility] Comment on above: Vitamin D 25(OH) Sta tus Range Deficiency <20 ng/mL (50nmol/L) Insufficiency 20 - 30 ng/mL (50 - 75 nmol/L) Sufficiency 30 - 100 ng/mL (75 - 250 nmol/L) Toxicity >100 ng/mL (>250 nmol/L) RBC Auto (Bld) [#/Vol]Ordere d By: Jane Jay on 11-18-2023 RBC (Bld) [#/Vol] 3.03 10*6/uL 4.2-5.4 [facility] Basophil percentageOrdered B y: Jane Jay on 11-11-2023 Chloride [Moles/Vol] 109 mmol/L 98-107 [facility] Glucose [Mass/Vol] 133 mg/dL 74-106 [facility] Comment on above: Fasting Glucose resu lt greater than or equal to 126 mg/dL suggests DIABETES MELLITUS per A.D.A. criteria. Potassium [Moles/Vol] 5.3 mmol/L 3.5-5.1 [facility] Comment on above: Slight Hemolysis, Re sult may be falsely increased. Sodium [Moles/Vol] 137 mmol/L 136-145 [facility] Laboratory - Chemistry and C hemistry - challengeOrdered By: Jane Jay on 11-11-2023 CO2 [Moles/Vol] 25.0 mmol/L 21.0-32.0 [facility] Urea nitrogen/Creatinine [Mass ratio] 16.6 mg/mg 10-20 [facility] No Panel InformationOrdered By: Jane Jay on 11-11-2023 Estimated GFR (MDRD) Amer 43 mL/min >60 [facility] Comment on above: GFR Calc Estimated GFR (MDRD) Non-Af Amer 36 mL/min >60 [facility] Comment on above: Non- GFR Calc Serum or plasma calcium merritt urement (mass/volume)Ordered By: Jane Jay on 11-11-2023 Calcium [Mass/Vol] 9.1 mg/dL 8.5-10.1 [facility] Serum or plasma creatinine m easurement (mass/volume)Ordered By: Jane Jay on 11-11-2023 Creatinine [Mass/Vol] 1.51 mg/dL 0.55-1.02 [facility] Comment on above: The validity of the calculated GFR & GFRAA in patients over 70 years has not been determined. Clinical correlation is essential. Serum or plasma urea nitroge n measurement (mass/volume)Ordered By: Jane Jay on 11-11-2023 Urea nitrogen [Mass/Vol] 25 mg/dL 7-18 [facility] Thin prep Papanicolaou smear with manual screeningOrdered By: Jane Jay on 11-11-2023 Thin prep Papanicolaou smear with manual screening 3 5-15 [facility] Basophil percentageOrdered B y: Antoni Argueta on 07-30-2023 Chloride [Moles/Vol] 105 mmol/L 98-107 [facility] Glucose [Mass/Vol] 216 mg/dL 74-106 [facility] Comment on above: Glucose result great er than or equal to 200 mg/dLsuggests DIABETES MELLITUS per A.D.A. criteria. Potassium [Moles/Vol] 4.9 mmol/L 3.5-5.1 [facility] Sodium [Moles/Vol] 134 mmol/L 136-145 [facility] WBC (Bld) [#/Vol] 13.7 10*3/uL 4.4-11.0 [facility] Blood erythrocytes count (nu mber/volume)Ordered By: Antoni Argueta on 07-30-2023 RBC (Bld) [#/Vol] 3.77 10*6/uL 4.2-5.4 [facility] Blood hemoglobin measurement (mass/volume)Ordered By: Antoni Argueta on 07-30-2023 Hemoglobin (Bld) [Mass/Vol] 11.2 g/dL 12.0-15.0 [facility] Blood platelet mean volumeOr dered By: Antoni Argueta on 07-30-2023 Platelet mean volume (Bld) [Entitic vol] 10.3 fL 6.2-12.0 [facility] Determination of erythrocyte mean corpuscular volume (MCV)Ordered By: Antoni Argueta on 07-30-2023 MCV (RBC) [Entitic vol] 97.1 fL 81-99 [facility] Glucose Glucometer (BldC) [M ass/Vol]Ordered By: Antoni Argueta on 07-30-2023 Glucose [Mass/Vol] 222 mg/dL 74-106 [facility] Comment on above: MANAGEMENT OF PATIEN T CARE PER NURSING PROTOCOL Hematocrit Auto (Bld) [Volum e fraction]Ordered By: Antoni Argueta on 07-30-2023 Hematocrit (Bld) [Volume fraction] 36.6 % 37-47 [facility] Laboratory - Chemistry and C hemistry - challengeOrdered By: Antoni Argueta on 07-30-2023 CO2 [Moles/Vol] 21.0 mmol/L 21.0-32.0 [facility] Urea nitrogen/Creatinine [Mass ratio] 20.1 mg/mg 10-20 [facility] Laboratory - Hematology and Cell countsOrdered By: Antoni Argueta on 07-30-2023 Erythrocyte distribution width (RBC) [Entitic vol] 53.1 fL 35.1-43.9 [facility] Erythrocyte distribution width (RBC) [Ratio] 14.9 % 11.6-14.6 [facility] MCH (RBC) [Entitic mass] 29.7 pg 27.0-32.0 [facility] MCHC Auto (RBC) [Mass/Vol]Or dered By: Antoni Argueta on 07-30-2023 MCHC (RBC) [Mass/Vol] 30.6 g/dL 32-36 [facility] No Panel InformationOrdered By: Antoni Argueta on 07-30-2023 Estimated Creatinine Clearance Calc 24.90 ml/min [facility] Estimated GFR (MDRD) Amer 34 mL/min >60 [facility] Comment on above: GFR Calc Estimated GFR (MDRD) Non-Af Amer 28 mL/min >60 [facility] Comment on above: Non- GFR Calc Platelets bldOrdered By: Sita Argueta on 07-30-2023 Platelets (Bld) [#/Vol] 273 10*3/uL 150-450 [facility] Serum or plasma calcium merritt urement (mass/volume)Ordered By: Antoni Argueta on 07-30-2023 Calcium [Mass/Vol] 8.1 mg/dL 8.5-10.1 [facility] Serum or plasma creatinine m easurement (mass/volume)Ordered By: Antoni Argueta on 07-30-2023 Creatinine [Mass/Vol] 1.84 mg/dL 0.55-1.02 [facility] Comment on above: The validity of the calculated GFR & GFRAA in patients over 70 years has not been determined. Clinical correlation is essential. Serum or plasma urea nitroge n measurement (mass/volume)Ordered By: Antoni Argueta on 07-30-2023 Urea nitrogen [Mass/Vol] 37 mg/dL -18 [facility] Thin prep Papanicolaou smear with manual screeningOrdered By: Antoni Argueta on 07-30-2023 Thin prep Papanicolaou smear with manual screening 8 5-15 [facility] Absolute lymphocyte countOrd ered By: Kavin Mcclain on 07-29-2023 Lymphocytes Auto (Unsp spec) [#/Vol] 0.43 10*3/uL 0.83-4.51 [facility] Bacteria identified Cx Nom ( Wound)Ordered By: Kavin Mcclain on 07-29-2023 Wound Culture Staphylococcus aureus [facility] Basophil percentageOrdered B y: Kavin Mcclain on 07-29-2023 Basophils/100 WBC (Bld) 0.1 % 0-1 [facility] Eosinophils/100 WBC (Bld) 0.0 % 0-5 [facility] Neutrophils (Bld) [#/Vol] 14.5 10*3/uL 2.0-7.7 [facility] Neutrophils/100 WBC (Bld) 93.1 % 47-70 [facility] Basophil percentageOrdered B y: Tacho Moffett on 07-29-2023 Lactate [Moles/Vol] 1.5 mmol/L 0.4-2.0 [facility] Blood lymphocytes/100 leukoc ytesOrdered By: Kavin Mcclain on 07-29-2023 Lymphocytes/100 WBC (Bld) 2.8 % 19-41 [facility] Blood monocytes/100 leukocyt esOrdered By: Kavin Mcclain on 07-29-2023 Monocytes/100 WBC (Bld) 3.3 % 0-10 [facility] Gram stain for investigation of transfusion reactionOrdered By: Kavin Mcclain on 07-29-2023 Microscopic observation Gram stain Nom (Unsp spec) [facility] Laboratory - Hematology and Cell countsOrdered By: Kavin Mcclain on 07-29-2023 Immature granulocytes/100 WBC (Bld) 0.700 % 0.0-0.9 [facility] Comment on above: IG% - Immature Granu locytes (promyelocytes, myelocytes and metamyelocytes) > 1% indicates that a LEFT SHIFT is Present. Nucleated RBC/100 WBC (Bld) [Ratio] 0 % 0-5 [facility] Absolute lymphocyte countOrd ered By: Carlyn aSlmon on 07-28-2023 Lymphocytes Auto (Unsp spec) [#/Vol] 0.69 10*3/uL 0.83-4.51 [facility] Amorphous sediment detection in urine sediment by light microscopyOrdered By: Carlyn Salmon on 07-28-2023 Amorphous sediment LM Ql (Urine sed) 1+ [facility] Assessment of wrist artery p atency prior to arterial punctureOrdered By: Tacho Moffett on 07-28-2023 Arterial patency Wrist artery --pre arterial puncture Positive [facility] Base excessOrdered By: Tacho Moffett on 07-28-2023 Base excess Calc (BldV) [Moles/Vol] -7 mmol/L -2-2 [facility] Basophil percentageOrdered B y: Tacho Moffett on 07-28-2023 Basophil percentage 17.4 mmol/L 22-26 [facility] Basophils/100 WBC (Bld) 92 % 95-99 [facility] Lactate [Moles/Vol] 2.0 mmol/L 0.4-2.0 [facility] Comment on above: Critical Result(s) C alled at: 20:41:18 07/28/2023 by: Majo Salazar. Results read back by same. Basophil percentageOrdered B y: Carlyn Salmon on 07-28-2023 Basophil percentage 0-5 SEEN /hpf 0-5 [facility] Basophils/100 WBC (Bld) 0.3 % 0-1 [facility] Chloride [Moles/Vol] 98 mmol/L 98-107 [facility] Eosinophils/100 WBC (Bld) 0.1 % 0-5 [facility] Glucose [Mass/Vol] 260 mg/dL 74-106 [facility] Comment on above: Glucose result great er than or equal to 200 mg/dLsuggests DIABETES MELLITUS per A.D.A. criteria. Neutrophils (Bld) [#/Vol] 12.7 10*3/uL 2.0-7.7 [facility] Neutrophils/100 WBC (Bld) 87.7 % 47-70 [facility] Potassium [Moles/Vol] 5.6 mmol/L 3.5-5.1 [facility] Sodium [Moles/Vol] 130 mmol/L 136-145 [facility] WBC (Bld) [#/Vol] 14.6 10*3/uL 4.4-11.0 [facility] Bilirubin Test strip Ql (U)O rdered By: Carlyn Salmon on 07-28-2023 Bilirubin Ql (U) 1 mg/dL Negative [facility] Comment on above: COLOR OF URINE MAY A FFECT DIPSTICK RESULTS. Blood erythrocytes count (nu mber/volume)Ordered By: Carlyn Salmon on 07-28-2023 RBC (Bld) [#/Vol] 4.25 10*6/uL 4.2-5.4 [facility] Blood hemoglobin measurement (mass/volume)Ordered By: Calryn Salmon on 07-28-2023 Hemoglobin (Bld) [Mass/Vol] 12.7 g/dL 12.0-15.0 [facility] Blood lymphocytes/100 leukoc ytesOrdered By: Carlyn Salmon on 07-28-2023 Lymphocytes/100 WBC (Bld) 4.7 % 19-41 [facility] Blood monocytes/100 leukocyt esOrdered By: Carlyn Salmon on 07-28-2023 Monocytes/100 WBC (Bld) 6.7 % 0-10 [facility] Blood platelet mean volumeOr dered By: Carlyn Salmon on 07-28-2023 Platelet mean volume (Bld) [Entitic vol] 10.3 fL 6.2-12.0 [facility] CO2 (BldA) [Partial pressure ]Ordered By: Tacho Moffett on 07-28-2023 CO2 (Bld) [Partial pressure] 28.4 mm[Hg] 35-45 [facility] Determination of erythrocyte mean corpuscular volume (MCV)Ordered By: Carlyn Salmon on 07-28-2023 MCV (RBC) [Entitic vol] 99.8 fL 81-99 [facility] Glucose Glucometer (BldC) [M ass/Vol]Ordered By: ED PROVIDER on 07-28-2023 Glucose [Mass/Vol] 241 mg/dL 74-106 [facility] Comment on above: MANAGEMENT OF PATIEN T CARE PER NURSING PROTOCOL Hematocrit Auto (Bld) [Volum e fraction]Ordered By: Carlyn Salmon on 07-28-2023 Hematocrit (Bld) [Volume fraction] 42.4 % 37-47 [facility] Influenza virus A and B and SARS-CoV-2 (COVID-19) Ag panel - Upper respiratory specimOrdered By: Carlyn Salmon on 07-28-2023 SARS-CoV-2 (COVID-19) RNA KISHORE+probe Ql (Resp) [facility] Ketones Test strip Ql (U)Ord ered By: Carlyn Salmon on 07-28-2023 Ketones Ql (U) 5 mg/dl Negative [facility] Laboratory - Chemistry and C hemistry - challengeOrdered By: Carlyn Salmon on 07-28-2023 CO2 [Moles/Vol] 21.0 mmol/L 21.0-32.0 [facility] Urea nitrogen/Creatinine [Mass ratio] 12.6 mg/mg 10-20 [facility] Laboratory - Hematology and Cell countsOrdered By: Carlyn Salmon on 07-28-2023 Erythrocyte distribution width (RBC) [Entitic vol] 54.9 fL 35.1-43.9 [facility] Erythrocyte distribution width (RBC) [Ratio] 14.9 % 11.6-14.6 [facility] Immature granulocytes/100 WBC (Bld) 0.500 % 0.0-0.9 [facility] Comment on above: IG% - Immature Granu locytes (promyelocytes, myelocytes and metamyelocytes) > 1% indicates that a LEFT SHIFT is Present. MCH (RBC) [Entitic mass] 29.9 pg 27.0-32.0 [facility] Nucleated RBC/100 WBC (Bld) [Ratio] 0 % 0-5 [facility] Laboratory - Microbiology an d Antimicrobial susceptibilityOrdered By: Tacho Moffett on 07-28-2023 Bacteria identified Cx Nom (Bld) No growth in 5 days. [facility] MCHC Auto (RBC) [Mass/Vol]Or dered By: Carlyn Salmon on 07-28-2023 MCHC (RBC) [Mass/Vol] 30.0 g/dL 32-36 [facility] Mucus LM Ql (Urine sed)Order ed By: Carlyn Salmon on 07-28-2023 Mucus Ql (Urine sed) 0 SEEN /hpf [facility] Nitrite Test strip Ql (U)Ord ered By: Carlyn Salmon on 07-28-2023 Nitrite Ql (U) Negative Negative [facility] No Panel InformationOrdered By: Kavin Mcclain on 07-28-2023 Streptococcus pneumoniae Antigen (M [facility] Streptococcus pneumoniae Antigen (M [facility] No Panel InformationOrdered By: Tacho Moffett on 07-28-2023 Blood Gas Sample Site L Radial [facility] Blood Gas Specimen Type ART [facility] Blood Gas Total CO2 18 mmol/L [facility] Blood Gas Vent Mode Not entered [facility] Oxygen Delivery Device Cannula [facility] No Panel InformationOrdered By: Carlyn Salmon on 07-28-2023 Estimated Creatinine Clearance Calc 19.09 ml/min [facility] Estimated GFR (MDRD) Amer 26 mL/min >60 [facility] Comment on above: GFR Calc Estimated GFR (MDRD) Non-Af Amer 22 mL/min >60 [facility] Comment on above: Non- GFR Calc Troponin I High Sensitivity 23 pg/mL 3.0-54.0 [facility] Comment on above: Please Note: [place] t Units and Gender Specific Reference Ranges. For more information see Policy Stat Procedure [place] High Sensitivity Troponin (TNIH) and attachments. Oxygen (BldA) [Partial press ure]Ordered By: Tacho Moffett on 07-28-2023 Oxygen (Bld) [Partial pressure] 61 mmHG 75-100 [facility] Platelets bldOrdered By: Honey Salmon on 07-28-2023 Platelets (Bld) [#/Vol] 354 10*3/uL 150-450 [facility] Protein Test strip Ql (U)Ord ered By: Carlyn Salmon on 07-28-2023 Protein Ql (U) 500 mg/dl Negative [facility] Serum or plasma calcium merritt urement (mass/volume)Ordered By: Carlyn Salmon on 07-28-2023 Calcium [Mass/Vol] 8.5 mg/dL 8.5-10.1 [facility] Serum or plasma creatinine m easurement (mass/volume)Ordered By: Carlyn Salmon on 07-28-2023 Creatinine [Mass/Vol] 2.31 mg/dL 0.55-1.02 [facility] Comment on above: The validity of the calculated GFR & GFRAA in patients over 70 years has not been determined. Clinical correlation is essential. Serum or plasma urea nitroge n measurement (mass/volume)Ordered By: Carlyn Salmon on 07-28-2023 Urea nitrogen [Mass/Vol] 29 mg/dL 7-18 [facility] Squamous epithelial cells de tection in urine sediment by light microscopyOrdered By: Carlyn Salmon on 07-28-2023 Epithelial cells.squamous LM Ql (Urine sed) 0 SEEN /hpf 5-10 [facility] Thin prep Papanicolaou smear with manual screeningOrdered By: Carlyn Salmon on 07-28-2023 Thin prep Papanicolaou smear with manual screening 11 5-15 [facility] Upper respiratory specimen i nfluenza A virus, influenza B virus, and severe acute respiratory syndromOrdered By: Carlyn Salmon on 07-28-2023 Upper respiratory specimen influenza A virus, influenza B virus, and severe acute respiratory syndrom [facility] Urine Legionella pneumophila antigen detectionOrdered By: Kavin Mcclain on 07-28-2023 L. pneumophila Ag Ql (U) [facility] L. pneumophila Ag Ql (U) [facility] Urine blood detectionOrdered By: Carlyn Salmon on 07-28-2023 RBC Ql (U) 50 /ul Negative [facility] RBC Ql (U) 0-5 SEEN /hpf 0-5 [facility] Urine clarityOrdered By: Honey Salmon on 07-28-2023 Clarity (U) Sl. Cloudy Clear [facility] Urine color determinationOrd ered By: Carlyn Salmon on 07-28-2023 Color (U) Yellow Yellow [facility] Urine glucose detectionOrder ed By: Carlyn Salmon on 07-28-2023 Glucose Ql (U) Normal mg/dl Normal [facility] Urine leukocyte esterase det ection by dipstickOrdered By: Carlyn Salmon on 07-28-2023 Leukocyte esterase Test strip Ql (U) 25 /ul Negative [facility] Urine pHOrdered By: Carlyn de la garza on 07-28-2023 pH (U) 5.0 [pH] 5.0 - 8.0 [facility] Urine sediment bacteria coun t by microscopy (number/high power field)Ordered By: Carlyn Salmon on 07-28-2023 Bacteria LM.HPF (Urine sed) [#/Area] 0 /[HPF] None Seen [facility] Urine specific gravity measu rementOrdered By: Carlyn Salmon on 07-28-2023 Specific gravity (U) [Rel density] 1.020 1.002-1.030 [facility] Urobilinogen Auto test strip Ql (U)Ordered By: Carlyn Salmon on 07-28-2023 Urobilinogen Ql (U) 4 mg/dl Normal [facility] pH measurementOrdered By: Salinas Ballard on 07-28-2023 pH (Unsp spec) 7.40 [pH] 7.35-7.45 [facility] Basophil percentageOrdered B y: Jane Jay on 06-30-2023 Basophil percentage 4.1 mg/dL 2.5-4.9 [facility] Chloride [Moles/Vol] 104 mmol/L 98-107 [facility] Glucose [Mass/Vol] 132 mg/dL 74-106 [facility] Comment on above: Fasting Glucose resu lt greater than or equal to 126 mg/dL suggests DIABETES MELLITUS per A.D.A. criteria. Potassium [Moles/Vol] 4.8 mmol/L 3.5-5.1 [facility] Sodium [Moles/Vol] 138 mmol/L 136-145 [facility] Laboratory - Chemistry and C hemistry - challengeOrdered By: Jane Jay on 06-30-2023 CO2 [Moles/Vol] 27.0 mmol/L 21.0-32.0 [facility] Urea nitrogen/Creatinine [Mass ratio] 14.1 mg/mg 10-20 [facility] No Panel InformationOrdered By: Jane Jay on 06-30-2023 Estimated GFR (MDRD) Amer 38 mL/min >60 [facility] Comment on above: GFR Calc Estimated GFR (MDRD) Non-Af Amer 31 mL/min >60 [facility] Comment on above: Non- GFR Calc Parathyroid Hormone (Intact) 268.6 pg/mL 18.4-80.1 [facility] Vitamin D 25-Hydroxy 30.2 ng/mL [facility] Comment on above: Vitamin D 25(OH) Sta tus Range Deficiency <20 ng/mL (50nmol/L) Insufficiency 20 - 30 ng/mL (50 - 75 nmol/L) Sufficiency 30 - 100 ng/mL (75 - 250 nmol/L) Toxicity >100 ng/mL (>250 nmol/L) Serum or plasma albumin merritt urement (mass/volume)Ordered By: Jane Jay on 06-30-2023 Albumin [Mass/Vol] 2.8 g/dL 3.2-5.0 [facility] Serum or plasma calcium merritt urement (mass/volume)Ordered By: Jane Jay on 06-30-2023 Calcium [Mass/Vol] 8.9 mg/dL 8.5-10.1 [facility] Serum or plasma creatinine m easurement (mass/volume)Ordered By: Jane Jay on 06-30-2023 Creatinine [Mass/Vol] 1.70 mg/dL 0.55-1.02 [facility] Comment on above: The validity of the calculated GFR & GFRAA in patients over 70 years has not been determined. Clinical correlation is essential. Serum or plasma urea nitroge n measurement (mass/volume)Ordered By: Jane Jay on 06-30-2023 Urea nitrogen [Mass/Vol] 24 mg/dL 04-29 [facility] Urine creatinine measurement (mass/volume)Ordered By: Jane Jay on 06-30-2023 Creatinine (U) [Mass/Vol] 33.00 mg/dL NO RANGE EST. [facility] Urine protein measurement (m ass/volume)Ordered By: Jane Jay on 06-30-2023 Protein (U) [Mass/Vol] 81.6 mg/dL 0.0-11.8 [facility] Urine protein/creatinine mas s ratioOrdered By: Jane Jay on 06-30-2023 Protein/Creatinine (U) [Mass ratio] 2473 mg/g CRE 0-200 [facility] Basophil percentageOrdered B y: Dr. Jay on 01-07-2023 Potassium [Moles/Vol] 5.3 mmol/L 3.5-5.1 [facility] Basophil percentageOrdered B y: Dr. Jay on 12-30-2022 Basophil percentage 3.9 mg/dL 2.5-4.9 [facility] Chloride [Moles/Vol] 105 mmol/L 98-107 [facility] Glucose [Mass/Vol] 167 mg/dL 74-106 [facility] Comment on above: Fasting Glucose resu lt greater than or equal to 126 mg/dL suggests DIABETES MELLITUS per A.D.A. criteria. Potassium [Moles/Vol] 5.4 mmol/L 3.5-5.1 [facility] Sodium [Moles/Vol] 137 mmol/L 136-145 [facility] WBC (Bld) [#/Vol] 12.1 10*3/uL 4.4-11.0 [facility] Blood erythrocytes count (nu mber/volume)Ordered By: Dr. Jay on 12-30-2022 RBC (Bld) [#/Vol] 3.71 10*6/uL 4.2-5.4 [facility] Blood hemoglobin measurement (mass/volume)Ordered By: Dr. Jay on 12-30-2022 Hemoglobin (Bld) [Mass/Vol] 11.2 g/dL 12.0-15.0 [facility] Blood platelet mean volumeOr dered By: Dr. Jay on 12-30-2022 Platelet mean volume (Bld) [Entitic vol] 9.5 fL 6.2-12.0 [facility] Determination of erythrocyte mean corpuscular volume (MCV)Ordered By: Dr. Jay on 12-30-2022 MCV (RBC) [Entitic vol] 99.5 fL 81-99 [facility] Hematocrit Auto (Bld) [Volum e fraction]Ordered By: Dr. Jay on 12-30-2022 Hematocrit (Bld) [Volume fraction] 36.9 % 37-47 [facility] Laboratory - Chemistry and C hemistry - challengeOrdered By: Dr. Jay on 12-30-2022 CO2 [Moles/Vol] 25.0 mmol/L 21.0-32.0 [facility] Urea nitrogen/Creatinine [Mass ratio] 16.5 mg/mg 10-20 [facility] Laboratory - Hematology and Cell countsOrdered By: Dr. Jay on 12-30-2022 Erythrocyte distribution width (RBC) [Entitic vol] 47.5 fL 35.1-43.9 [facility] Erythrocyte distribution width (RBC) [Ratio] 13.1 % 11.6-14.6 [facility] MCH (RBC) [Entitic mass] 30.2 pg 27.0-32.0 [facility] MCHC Auto (RBC) [Mass/Vol]Or dered By: Dr. Jay on 12-30-2022 MCHC (RBC) [Mass/Vol] 30.4 g/dL 32-36 [facility] No Panel InformationOrdered By: Dr. Jay on 12-30-2022 Estimated GFR (MDRD) Amer 33 mL/min >60 [facility] Comment on above: GFR Calc Estimated GFR (MDRD) Non-Af Amer 28 mL/min >60 [facility] Comment on above: Non- GFR Calc Platelets bldOrdered By: Dr. Jay on 12-30-2022 Platelets (Bld) [#/Vol] 343 10*3/uL 150-450 [facility] Serum or plasma albumin merritt urement (mass/volume)Ordered By: Dr. Jay on 12-30-2022 Albumin [Mass/Vol] 2.6 g/dL 3.2-5.0 [facility] Serum or plasma calcium merritt urement (mass/volume)Ordered By: Dr. Jay on 12-30-2022 Calcium [Mass/Vol] 9.0 mg/dL 8.5-10.1 [facility] Serum or plasma creatinine m easurement (mass/volume)Ordered By: Dr. Jay on 12-30-2022 Creatinine [Mass/Vol] 1.88 mg/dL 0.55-1.02 [facility] Comment on above: The validity of the calculated GFR & GFRAA in patients over 70 years has not been determined. Clinical correlation is essential. Serum or plasma urea nitroge n measurement (mass/volume)Ordered By: Dr. Jay on 12-30-2022 Urea nitrogen [Mass/Vol] 31 mg/dL 7-18 [facility] Basophil percentageOrdered B y: Dr. Jay on 09-17-2022 Chloride [Moles/Vol] 107 mmol/L 98-107 [facility] Glucose [Mass/Vol] 228 mg/dL 74-106 [facility] Comment on above: Glucose result great er than or equal to 200 mg/dLsuggests DIABETES MELLITUS per A.D.A. criteria. Potassium [Moles/Vol] 4.2 mmol/L 3.5-5.1 [facility] Sodium [Moles/Vol] 138 mmol/L 136-145 [facility] Laboratory - Chemistry and C hemistry - challengeOrdered By: Dr. Jay on 09-17-2022 CO2 [Moles/Vol] 28.0 mmol/L 21.0-32.0 [facility] Urea nitrogen/Creatinine [Mass ratio] 15.7 mg/mg 10- [facility] No Panel InformationOrdered By: Dr. Jay on 09-17-2022 Estimated GFR (MDRD) Amer 34 mL/min >60 [facility] Comment on above: GFR Calc Estimated GFR (MDRD) Non-Af Amer 28 mL/min >60 [facility] Comment on above: Non- GFR Calc Serum or plasma calcium merritt urement (mass/volume)Ordered By: Dr. Jay on 09-17-2022 Calcium [Mass/Vol] 8.6 mg/dL 8.5-10.1 [facility] Serum or plasma creatinine m easurement (mass/volume)Ordered By: Dr. Jay on 09-17-2022 Creatinine [Mass/Vol] 1.85 mg/dL 0.55-1.02 [facility] Comment on above: The validity of the calculated GFR & GFRAA in patients over 70 years has not been determined. Clinical correlation is essential. Serum or plasma urea nitroge n measurement (mass/volume)Ordered By: Dr. Jay on 09-17-2022 Urea nitrogen [Mass/Vol] 29 mg/dL 7-18 [facility] Thin prep Papanicolaou smear with manual screeningOrdered By: Dr. Jay on 09-17-2022 Thin prep Papanicolaou smear with manual screening 3 5-15 [facility] Basophil percentageOrdered B y: Dr. Jay on 09-10-2022 Basophil percentage 4.4 mg/dL 2.5-4.9 [facility] Chloride [Moles/Vol] 107 mmol/L 98-107 [facility] Glucose [Mass/Vol] 112 mg/dL 74-106 [facility] Comment on above: Fasting Glucose resu lt from 100 to 125 mg/dL suggests IMPAIRED HOMEOSTASIS per A.D.A. criteria. Potassium [Moles/Vol] 5.6 mmol/L 3.5-5.1 [facility] Sodium [Moles/Vol] 138 mmol/L 136-145 [facility] WBC (Bld) [#/Vol] 8.1 10*3/uL 4.4-11.0 [facility] Blood erythrocytes count (nu mber/volume)Ordered By: Dr. Jay on 09-10-2022 RBC (Bld) [#/Vol] 3.54 10*6/uL 4.2-5.4 [facility] Blood hemoglobin measurement (mass/volume)Ordered By: Dr. Jay on 09-10-2022 Hemoglobin (Bld) [Mass/Vol] 11.0 g/dL 12.0-15.0 [facility] Blood platelet mean volumeOr dered By: Dr. Jay on 09-10-2022 Platelet mean volume (Bld) [Entitic vol] 10.4 fL 6.2-12.0 [facility] Determination of erythrocyte mean corpuscular volume (MCV)Ordered By: Dr. Jay on 09-10-2022 MCV (RBC) [Entitic vol] 102.0 fL 81-99 [facility] Hematocrit Auto (Bld) [Volum e fraction]Ordered By: Dr. Jay on 09-10-2022 Hematocrit (Bld) [Volume fraction] 36.1 % 37-47 [facility] Laboratory - Chemistry and C hemistry - challengeOrdered By: Dr. Jay on 09-10-2022 CO2 [Moles/Vol] 25.0 mmol/L 21.0-32.0 [facility] Urea nitrogen/Creatinine [Mass ratio] 18.6 mg/mg 10-20 [facility] Laboratory - Hematology and Cell countsOrdered By: Dr. Jay on 09-10-2022 Erythrocyte distribution width (RBC) [Entitic vol] 57.9 fL 35.1-43.9 [facility] Erythrocyte distribution width (RBC) [Ratio] 15.3 % 11.6-14.6 [facility] MCH (RBC) [Entitic mass] 31.1 pg 27.0-32.0 [facility] MCHC Auto (RBC) [Mass/Vol]Or dered By: Dr. Jay on 09-10-2022 MCHC (RBC) [Mass/Vol] 30.5 g/dL 32-36 [facility] No Panel InformationOrdered By: Dr. Jay on 09-10-2022 Estimated GFR (MDRD) Amer 35 mL/min >60 [facility] Comment on above: GFR Calc Estimated GFR (MDRD) Non-Af Amer 29 mL/min >60 [facility] Comment on above: Non- GFR Calc Parathyroid Hormone (Intact) 275.1 pg/mL 18.4-80.1 [facility] Platelets bldOrdered By: Dr. Jay on 09-10-2022 Platelets (Bld) [#/Vol] 178 10*3/uL 150-450 [facility] Serum or plasma albumin merritt urement (mass/volume)Ordered By: Dr. Jay on 09-10-2022 Albumin [Mass/Vol] 3.0 g/dL 3.2-5.0 [facility] Serum or plasma calcium merritt urement (mass/volume)Ordered By: Dr. Jay on 09-10-2022 Calcium [Mass/Vol] 8.5 mg/dL 8.5-10.1 [facility] Serum or plasma creatinine m easurement (mass/volume)Ordered By: Dr. Jay on 09-10-2022 Creatinine [Mass/Vol] 1.83 mg/dL 0.55-1.02 [facility] Comment on above: The validity of the calculated GFR & GFRAA in patients over 70 years has not been determined. Clinical correlation is essential. Serum or plasma urea nitroge n measurement (mass/volume)Ordered By: Dr. Jay on 09-10-2022 Urea nitrogen [Mass/Vol] 34 mg/dL 7-18 [facility] Urine creatinine measurement (mass/volume)Ordered By: Dr. Jay on 09-10-2022 Creatinine (U) [Mass/Vol] 26.70 mg/dL NO RANGE EST. [facility] Urine protein measurement (m ass/volume)Ordered By: Dr. Jay on 09-10-2022 Protein (U) [Mass/Vol] 58.5 mg/dL 0.0-11.8 [facility] Urine protein/creatinine mas s ratioOrdered By: Dr. Jay on 09-10-2022 Protein/Creatinine (U) [Mass ratio] 2191 mg/g CRE 0-200 [facility] Basophil percentageon 2021 Chloride [Moles/Vol] 104 mmol/L 98-107 [facility] Work Phone: Glucose [Mass/Vol] 120 mg/dL 74-106 [facility] Work Phone: Comment on above: Fasting Glucose resu lt from 100 to 125 mg/dL suggests IMPAIRED HOMEOSTASIS per A.D.A. criteria. Potassium [Moles/Vol] 5.5 mmol/L 3.5-5.1 [facility] Work Phone: [phone] Sodium [Moles/Vol] 137 mmol/L 136-145 [facility] Work Phone: [phone] Laboratory - Chemistry and C hemistry - challengeon 06-11-2022 CO2 [Moles/Vol] 25.0 mmol/L 21.0-32.0 [facility] Work Phone: [phone] Urea nitrogen/Creatinine [Mass ratio] 15.1 mg/mg 10-20 [facility] Work Phone: No Panel Informationon 08-30 -2022 Estimated GFR (MDRD) Amer 35 mL/min >60 [facility] Work Phone: Comment on above: GFR Calc Estimated GFR (MDRD) Non-Af Amer 29 mL/min >60 [facility] Work Phone: Comment on above: Non- GFR Calc Serum or plasma calcium merritt urement (mass/volume)on 06-11-2022 Calcium [Mass/Vol] 8.9 mg/dL 8.5-10.1 [facility] Work Phone: Serum or plasma creatinine m easurement (mass/volume)on 06-11-2022 Creatinine [Mass/Vol] 1.79 mg/dL 0.55-1.02 [facility] Work Phone: Comment on above: The validity of the calculated GFR & GFRAA in patients over 70 years has not been determined. Clinical correlation is essential. Serum or plasma urea nitroge n measurement (mass/volume)on 06-11-2022 Urea nitrogen [Mass/Vol] 27 mg/dL 7-18 [facility] Work Phone: Thin prep Papanicolaou smear with manual screeningon 06-11-2022 Thin prep Papanicolaou smear with manual screening 8 5-15 [facility] Work Phone: Basophil percentageon 2021 Basophil percentage 3.7 mg/dL 2.5-4.9 [facility] Work Phone: Chloride [Moles/Vol] 107 mmol/L 98-107 [facility] Work Phone: Glucose [Mass/Vol] 113 mg/dL 74-106 [facility] Work Phone: Comment on above: Fasting Glucose resu lt from 100 to 125 mg/dL suggests IMPAIRED HOMEOSTASIS per A.D.A. criteria. Potassium [Moles/Vol] 5.2 mmol/L 3.5-5.1 [facility] Work Phone: Sodium [Moles/Vol] 139 mmol/L 136-145 [facility] Work Phone: WBC (Bld) [#/Vol] 8.1 10*3/uL 4.4-11.0 [facility] Work Phone: [phone] Blood erythrocytes count (nu mber/volume)on 05-28-2022 RBC (Bld) [#/Vol] 4.03 10*6/uL 4.2-5.4 [facility] Work Phone: [phone] Blood hemoglobin measurement (mass/volume)on 05-28-2022 Hemoglobin (Bld) [Mass/Vol] 12.1 g/dL 12.0-15.0 [facility] Work Phone: [phone] Blood platelet mean volumeon 05-28-2022 Platelet mean volume (Bld) [Entitic vol] 11.1 fL 6.2-12.0 [facility] Work Phone: [phone] Determination of erythrocyte mean corpuscular volume (MCV)on 05-28-2022 MCV (RBC) [Entitic vol] 102.0 fL 81-99 [facility] Work Phone: [phone] Hematocrit Auto (Bld) [Volum e fraction]on 05-28-2022 Hematocrit (Bld) [Volume fraction] 41.1 % 37-47 [facility] Work Phone: [phone] Laboratory - Chemistry and C hemistry - challengeon 05-28-2022 CO2 [Moles/Vol] 23.0 mmol/L 21.0-32.0 [facility] Work Phone: [phone] Urea nitrogen/Creatinine [Mass ratio] 14.4 mg/mg 10-20 [facility] Work Phone: [phone] Laboratory - Hematology and Cell countson 05-28-2022 Erythrocyte distribution width (RBC) [Entitic vol] 54.4 fL 35.1-43.9 [facility] Work Phone: [phone] Erythrocyte distribution width (RBC) [Ratio] 14.5 % 11.6-14.6 [facility] Work Phone: [phone] MCH (RBC) [Entitic mass] 30.0 pg 27.0-32.0 [facility] Work Phone: MCHC Auto (RBC) [Mass/Vol]on 05-28-2022 MCHC (RBC) [Mass/Vol] 29.4 g/dL 32-36 [facility] Work Phone: No Panel Informationon 05-28 Estimated GFR (MDRD) Amer 35 mL/min >60 [facility] Work Phone: Comment on above: GFR Calc Estimated GFR (MDRD) Non-Af Amer 29 mL/min >60 [facility] Work Phone: Comment on above: Non- GFR Calc Parathyroid Hormone (Intact) 198.8 pg/mL 18.4-80.1 [facility] Work Phone: Platelets bldon 05-28-2022 Platelets (Bld) [#/Vol] 190 10*3/uL 150-450 [facility] Work Phone: Serum or plasma albumin merritt urement (mass/volume)on 05-28-2022 Albumin [Mass/Vol] 3.1 g/dL 3.2-5.0 [facility] Work Phone: Serum or plasma calcium merritt urement (mass/volume)on 05-28-2022 Calcium [Mass/Vol] 8.7 mg/dL 8.5-10.1 [facility] Work Phone: Serum or plasma creatinine m easurement (mass/volume)on 05-28-2022 Creatinine [Mass/Vol] 1.80 mg/dL 0.55-1.02 [facility] Work Phone: Comment on above: The validity of the calculated GFR & GFRAA in patients over 70 years has not been determined. Clinical correlation is essential. Serum or plasma urea nitroge n measurement (mass/volume)on 05-28-2022 Urea nitrogen [Mass/Vol] 26 mg/dL 7-18 [facility] Work Phone: Glucose Glucometer (BldC) [M ass/Vol]on 02-16-2022 Glucose [Mass/Vol] 197 mg/dL 74-106 [facility] Work Phone: Comment on above: MANAGEMENT OF PATIEN T CARE PER NURSING PROTOCOL Absolute lymphocyte counton 02-15-2022 Lymphocytes Auto (Unsp spec) [#/Vol] 1.11 10*3/uL 0.83-4.51 [facility] Work Phone: Basophil percentageon 2021 Basophils/100 WBC (Bld) 0.4 % 0-1 [facility] Work Phone: Chloride [Moles/Vol] 103 mmol/L 98-107 [facility] Work Phone: Eosinophils/100 WBC (Bld) 2.7 % 0-5 [facility] Work Phone: Glucose [Mass/Vol] 165 mg/dL 74-106 [facility] Work Phone: Comment on above: Fasting Glucose resu lt greater than or equal to 126 mg/dL suggests DIABETES MELLITUS per A.D.A. criteria. Neutrophils (Bld) [#/Vol] 5.1 10*3/uL 2.0-7.7 [facility] Work Phone: Neutrophils/100 WBC (Bld) 69.7 % 47-70 [facility] Work Phone: Potassium [Moles/Vol] 5.0 mmol/L 3.5-5.1 [facility] Work Phone: Sodium [Moles/Vol] 136 mmol/L 136-145 [facility] Work Phone: WBC (Bld) [#/Vol] 7.3 10*3/uL 4.4-11.0 [facility] Work Phone: Blood erythrocytes count (nu mber/volume)on 02-15-2022 RBC (Bld) [#/Vol] 2.84 10*6/uL 4.2-5.4 [facility] Work Phone: Blood hemoglobin measurement (mass/volume)on 02-15-2022 Hemoglobin (Bld) [Mass/Vol] 8.6 g/dL 12.0-15.0 [facility] Work Phone: Blood lymphocytes/100 leukoc yteson 02-15-2022 Lymphocytes/100 WBC (Bld) 15.2 % 19-41 [facility] Work Phone: Blood monocytes/100 leukocyt eson 02-15-2022 Monocytes/100 WBC (Bld) 11.0 % 0-10 [facility] Work Phone: Blood platelet mean volumeon 02-15-2022 Platelet mean volume (Bld) [Entitic vol] 10.0 fL 6.2-12.0 [facility] Work Phone: Determination of erythrocyte mean corpuscular volume (MCV)on 02-15-2022 MCV (RBC) [Entitic vol] 100.0 fL 81-99 [facility] Work Phone: [phone] Hematocrit Auto (Bld) [Volum e fraction]on 02-15-2022 Hematocrit (Bld) [Volume fraction] 28.4 % 37-47 [facility] Work Phone: Laboratory - Chemistry and C hemistry - challengeon 02-15-2022 CO2 [Moles/Vol] 29.0 mmol/L 21.0-32.0 [facility] Work Phone: Urea nitrogen/Creatinine [Mass ratio] 19.6 mg/mg 10-20 [facility] Work Phone: [phone] Laboratory - Hematology and Cell countson 02-15-2022 Erythrocyte distribution width (RBC) [Entitic vol] 48.4 fL 35.1-43.9 [facility] Work Phone: [phone] Erythrocyte distribution width (RBC) [Ratio] 13.2 % 11.6-14.6 [facility] Work Phone: Immature granulocytes/100 WBC (Bld) 1.000 % 0.0-0.9 [facility] Work Phone: Comment on above: IG% - Immature Granu locytes (promyelocytes, myelocytes and metamyelocytes) > 1% indicates that a LEFT SHIFT is Present. MCH (RBC) [Entitic mass] 30.3 pg 27.0-32.0 [facility] Work Phone: Nucleated RBC/100 WBC (Bld) [Ratio] 0 % 0-5 [facility] Work Phone: MCHC Auto (RBC) [Mass/Vol]on 02-15-2022 MCHC (RBC) [Mass/Vol] 30.3 g/dL 32-36 [facility] Work Phone: No Panel Informationon 02-15 Estimated Creatinine Clearance Calc 28.14 ml/min [facility] Work Phone: Estimated GFR (MDRD) Amer 38 mL/min >60 [facility] Work Phone: Comment on above: GFR Calc Estimated GFR (MDRD) Non-Af Amer 32 mL/min >60 [facility] Work Phone: Comment on above: Non- GFR Calc Platelets bldon 02-15-2022 Platelets (Bld) [#/Vol] 309 10*3/uL 150-450 [facility] Work Phone: Serum or plasma calcium merritt urement (mass/volume)on 02-15-2022 Calcium [Mass/Vol] 8.2 mg/dL 8.5-10.1 [facility] Work Phone: Serum or plasma creatinine m easurement (mass/volume)on 02-15-2022 Creatinine [Mass/Vol] 1.68 mg/dL 0.55-1.02 [facility] Work Phone: Comment on above: The validity of the calculated GFR & GFRAA in patients over 70 years has not been determined. Clinical correlation is essential. Serum or plasma urea nitroge n measurement (mass/volume)on 02-15-2022 Urea nitrogen [Mass/Vol] 33 mg/dL 7-18 [facility] Work Phone: Thin prep Papanicolaou smear with manual screeningon 02-15-2022 Thin prep Papanicolaou smear with manual screening 4 5-15 [facility] Work Phone: Basophil percentageon 2021 Chloride [Moles/Vol] 104 mmol/L 98-107 [facility] Work Phone: Glucose [Mass/Vol] 148 mg/dL 74-106 [facility] Work Phone: Comment on above: Fasting Glucose resu lt greater than or equal to 126 mg/dL suggests DIABETES MELLITUS per A.D.A. criteria. Potassium [Moles/Vol] 4.4 mmol/L 3.5-5.1 [facility] Work Phone: Sodium [Moles/Vol] 136 mmol/L 136-145 [facility] Work Phone: Glucose Glucometer (BldC) [M ass/Vol]on 01-31-2022 Glucose [Mass/Vol] 309 mg/dL 74-106 [facility] Work Phone: Comment on above: MANAGEMENT OF PATIEN T CARE PER NURSING PROTOCOL Laboratory - Chemistry and C hemistry - challengeon 01-31-2022 CO2 [Moles/Vol] 27.0 mmol/L 21.0-32.0 [facility] Work Phone: Urea nitrogen/Creatinine [Mass ratio] 21.3 mg/mg 10-20 [facility] Work Phone: No Panel Informationon 01-31 Estimated Creatinine Clearance Calc 27.17 ml/min [facility] Work Phone: Estimated GFR (MDRD) Amer 37 mL/min >60 [facility] Work Phone: Comment on above: GFR Calc Estimated GFR (MDRD) Non-Af Amer 30 mL/min >60 [facility] Work Phone: Comment on above: Non- GFR Calc Serum or plasma calcium merritt urement (mass/volume)on 01-31-2022 Calcium [Mass/Vol] 8.3 mg/dL 8.5-10.1 [facility] Work Phone: Serum or plasma creatinine m easurement (mass/volume)on 01-31-2022 Creatinine [Mass/Vol] 1.74 mg/dL 0.55-1.02 [facility] Work Phone: Comment on above: The validity of the calculated GFR & GFRAA in patients over 70 years has not been determined. Clinical correlation is essential. Serum or plasma urea nitroge n measurement (mass/volume)on 01-31-2022 Urea nitrogen [Mass/Vol] 37 mg/dL 7-18 [facility] Work Phone: Thin prep Papanicolaou smear with manual screeningon 01-31-2022 Thin prep Papanicolaou smear with manual screening 5 5-15 [facility] Work Phone: Absolute lymphocyte counton 01-28-2022 Lymphocytes Auto (Unsp spec) [#/Vol] 0.94 10*3/uL 0.83-4.51 [facility] Work Phone: Basophil percentageon 2021 Basophils/100 WBC (Bld) 0.4 % 0-1 [facility] Work Phone: Eosinophils/100 WBC (Bld) 0.9 % 0-5 [facility] Work Phone: Neutrophils (Bld) [#/Vol] 6.1 10*3/uL 2.0-7.7 [facility] Work Phone: Neutrophils/100 WBC (Bld) 76.3 % 47-70 [facility] Work Phone: WBC (Bld) [#/Vol] 7.9 10*3/uL 4.4-11.0 [facility] Work Phone: Blood erythrocytes count (nu mber/volume)on 01-28-2022 RBC (Bld) [#/Vol] 3.39 10*6/uL 4.2-5.4 [facility] Work Phone: Blood hemoglobin measurement (mass/volume)on 01-28-2022 Hemoglobin (Bld) [Mass/Vol] 10.4 g/dL 12.0-15.0 [facility] Work Phone: [phone] Blood lymphocytes/100 leukoc yteson 01-28-2022 Lymphocytes/100 WBC (Bld) 11.9 % 19-41 [facility] Work Phone: [phone] Blood monocytes/100 leukocyt eson 01-28-2022 Monocytes/100 WBC (Bld) 10.1 % 0-10 [facility] Work Phone: [phone] Blood platelet mean volumeon 01-28-2022 Platelet mean volume (Bld) [Entitic vol] 10.0 fL 6.2-12.0 [facility] Work Phone: [phone] Determination of erythrocyte mean corpuscular volume (MCV)on 01-28-2022 MCV (RBC) [Entitic vol] 101.5 fL 81-99 [facility] Work Phone: [phone] Hematocrit Auto (Bld) [Volum e fraction]on 01-28-2022 Hematocrit (Bld) [Volume fraction] 34.4 % 37-47 [facility] Work Phone: [phone] Laboratory - Hematology and Cell countson 01-28-2022 Erythrocyte distribution width (RBC) [Entitic vol] 51.7 fL 35.1-43.9 [facility] Work Phone: [phone] Erythrocyte distribution width (RBC) [Ratio] 14.1 % 11.6-14.6 [facility] Work Phone: [phone] Immature granulocytes/100 WBC (Bld) 0.400 % 0.0-0.9 [facility] Work Phone: [phone] Comment on above: IG% - Immature Granu locytes (promyelocytes, myelocytes and metamyelocytes) > 1% indicates that a LEFT SHIFT is Present. MCH (RBC) [Entitic mass] 30.7 pg 27.0-32.0 [facility] Work Phone: [phone] Nucleated RBC/100 WBC (Bld) [Ratio] 0 % 0-5 [facility] Work Phone: [phone] MCHC Auto (RBC) [Mass/Vol]on 01-28-2022 MCHC (RBC) [Mass/Vol] 30.2 g/dL 32-36 [facility] Work Phone: Platelets bldon 01-28-2022 Platelets (Bld) [#/Vol] 220 10*3/uL 150-450 [facility] Work Phone: No Panel Informationon 01-27 Vitamin D 25-Hydroxy 26.6 ng/mL [facility] Work Phone: Comment on above: Vitamin D 25(OH) Sta tus Range Deficiency <20 ng/mL (50nmol/L) Insufficiency 20 - 30 ng/mL (50 - 75 nmol/L) Sufficiency 30 - 100 ng/mL (75 - 250 nmol/L) Toxicity >100 ng/mL (>250 nmol/L) Whole blood hemoglobin A1c/t otal hemoglobin ratio (mass fraction)on 01-27-2022 HbA1c (Bld) [Mass fraction] 7.0 % 3.8-5.6 [facility] Work Phone: Comment on above: Normal < 5.7 % Predi abetic 5.7 - 6.4 % Diabetic >or= 6.5 % Please note range changes. Absolute lymphocyte counton 01-26-2022 Lymphocytes Auto (Unsp spec) [#/Vol] 0.68 10*3/uL 0.83-4.51 [facility] Work Phone: Basophil percentageon 2021 Basophils/100 WBC (Bld) 0.3 % 0-1 [facility] Work Phone: Bilirubin [Mass/Vol] 0.50 mg/dL 0.20-1.00 [facility] Work Phone: Comment on above: For patients on eltr ombopag therapy, use of Dimension [place] TBIL is not recommended. Chloride [Moles/Vol] 103 mmol/L 98-107 [facility] Work Phone: Eosinophils/100 WBC (Bld) 1.3 % 0-5 [facility] Work Phone: Glucose [Mass/Vol] 277 mg/dL 74-106 [facility] Work Phone: Comment on above: Glucose result great er than or equal to 200 mg/dLsuggests DIABETES MELLITUS per A.D.A. criteria. Neutrophils (Bld) [#/Vol] 5.8 10*3/uL 2.0-7.7 [facility] Work Phone: Neutrophils/100 WBC (Bld) 80.8 % 47-70 [facility] Work Phone: [phone] Potassium [Moles/Vol] 5.3 mmol/L 3.5-5.1 [facility] Work Phone: Protein [Mass/Vol] 7.8 g/dL 6.4-8.2 [facility] Work Phone: [phone] Sodium [Moles/Vol] 135 mmol/L 136-145 [facility] Work Phone: [phone] WBC (Bld) [#/Vol] 7.2 10*3/uL 4.4-11.0 [facility] Work Phone: [phone] Blood erythrocytes count (nu mber/volume)on 01-26-2022 RBC (Bld) [#/Vol] 3.81 10*6/uL 4.2-5.4 [facility]: [phone] Blood hemoglobin measurement (mass/volume)on 01-26-2022 Hemoglobin (Bld) [Mass/Vol] 12.0 g/dL 12.0-15.0 [facility] Work Phone: [phone] Blood lymphocytes/100 leukoc yteson 01-26-2022 Lymphocytes/100 WBC (Bld) 9.5 % 19-41 [facility] Work Phone: [phone] Blood monocytes/100 leukocyt eson 01-26-2022 Monocytes/100 WBC (Bld) 7.5 % 0-10 [facility] Work Phone: [phone] Blood platelet mean volumeon 01-26-2022 Platelet mean volume (Bld) [Entitic vol] 9.9 fL 6.2-12.0 [facility] Work Phone: Determination of erythrocyte mean corpuscular volume (MCV)on 01-26-2022 MCV (RBC) [Entitic vol] 99.2 fL 81-99 [facility] Work Phone: [phone] Hematocrit Auto (Bld) [Volum e fraction]on 01-26-2022 Hematocrit (Bld) [Volume fraction] 37.8 % 37-47 [facility] Work Phone: [phone] Laboratory - Chemistry and C hemistry - challengeon 01-26-2022 ALP [Catalytic activity/Vol] 107 U/L 45-117 [facility] Work Phone: [phone] ALT [Catalytic activity/Vol] 13 U/L 13-56 [facility] Work Phone: [phone] CO2 [Moles/Vol] 27.0 mmol/L 21.0-32.0 [facility] Work Phone: [phone] Globulin (S) [Mass/Vol] 4.8 g/dL 2.2-4.2 [facility] Work Phone: [phone] Urea nitrogen/Creatinine [Mass ratio] 17.1 mg/mg 10-20 [facility] Work Phone: [phone] Laboratory - Hematology and Cell countson 01-26-2022 Erythrocyte distribution width (RBC) [Entitic vol] 50.8 fL 35.1-43.9 [facility] Work Phone: [phone] Erythrocyte distribution width (RBC) [Ratio] 14.1 % 11.6-14.6 [facility] Work Phone: [phone] Immature granulocytes/100 WBC (Bld) 0.600 % 0.0-0.9 [facility] Work Phone: [phone] Comment on above: IG% - Immature Granu locytes (promyelocytes, myelocytes and metamyelocytes) > 1% indicates that a LEFT SHIFT is Present. MCH (RBC) [Entitic mass] 31.5 pg 27.0-32.0 [facility] Work Phone: [phone] Nucleated RBC/100 WBC (Bld) [Ratio] 0 % 0-5 [facility] Work Phone: MCHC Auto (RBC) [Mass/Vol]on 01-26-2022 MCHC (RBC) [Mass/Vol] 31.7 g/dL 32-36 [facility] Work Phone: No Panel Informationon 01-26 Estimated Creatinine Clearance Calc 23.06 ml/min [facility] Work Phone: [phone] Estimated GFR (MDRD) Amer 30 mL/min >60 [facility] Work Phone: Comment on above: GFR Calc Estimated GFR (MDRD) Non-Af Amer 25 mL/min >60 [facility] Work Phone: Comment on above: Non- GFR Calc Platelets bldon 01-26-2022 Platelets (Bld) [#/Vol] 235 10*3/uL 150-450 [facility] Work Phone: Serum or plasma albumin merritt urement (mass/volume)on 01-26-2022 Albumin [Mass/Vol] 3.0 g/dL 3.2-5.0 [facility] Work Phone: Serum or plasma albumin/glob ulin mass ratioon 01-26-2022 Albumin/Globulin [Mass ratio] 0.6 {ratio} 0.9-2.4 [facility] Work Phone: [phone] Serum or plasma calcium merritt urement (mass/volume)on 01-26-2022 Calcium [Mass/Vol] 8.4 mg/dL 8.5-10.1 [facility] Work Phone: [phone] Serum or plasma creatinine m easurement (mass/volume)on 01-26-2022 Creatinine [Mass/Vol] 2.05 mg/dL 0.55-1.02 [facility] Work Phone: Comment on above: The validity of the calculated GFR & GFRAA in patients over 70 years has not been determined. Clinical correlation is essential. Serum or plasma urea nitroge n measurement (mass/volume)on 01-26-2022 Urea nitrogen [Mass/Vol] 35 mg/dL 7-18 [facility] Work Phone: Thin prep Papanicolaou smear with manual screeningon 01-26-2022 Thin prep Papanicolaou smear with manual screening 14 U/L 15-37 [facility] Work Phone: Thin prep Papanicolaou smear with manual screening 5 5-15 [facility] Work Phone: [facility] Note on 04-12-2017 [facility] Note Normal [facility] Patient Summary Documentson 04-12-2017 Patient Summary Documents Normal [facility] XR WRIST COMPLETE LEFTon XR WRIST COMPLETE [...] Clinical correlation will be required. That at [place] elbow or something all that was noted that the second remains Interpreted By: Kavya De La Rosareliminary Report By: Mariam Winters DOElectronically Signed By: Kavya De La Rosa MD Dictated Date: 04/12/2017 4:19:13 PM Prelim Date: 04/12/2017 4:21:34 PM Sign Date: 04/12/2017 4:32:05 PM Normal [facility] Vital Signs Date Time Vital Sign Value Performing Clinician Facility 08-13-2025 16:49-0400 Body temperature 97.52 [degF] SHUKRI DAVID APRN-GUN EXAMINER [facility] 08-13-2025 16:49-0400 Diastolic Blood Pressure Non-Invasive 41 mm[Hg] SHUKRI PETIT [facility] 08-13-2025 16:49-0400 Heart rate 66 /min SHUKRILORIE MELENDEZGINA MAINTENANCE ASSISTANT-GUN EXAMINER [facility] 08-13-2025 16:49-0400 Reason For Taking VItal Signs SHUKRILORIE MELENDEZGINA MAINTENANCE ASSISTANT-GUN EXAMINER [facility] 08-13-2025 16:49-0400 Respiratory rate 16 /min SHUKRILORIE MELENDEZGINA MAINTENANCE ASSISTANT-GUN EXAMINER [facility] 08-13-2025 16:49-0400 Systolic Blood Pressure Non-Invasive 138 mm[Hg] SHUKRILORIE MELENDEZNEN MAINTENANCE ASSISTANT-GUN EXAMINER [facility] 08-13-2025 16:04-0400 Diastolic Blood Pressure Non-Invasive 41 mm[Hg] SHUKRI NORARANJANN MAINTENANCE ASSISTANT-GUN EXAMINER [facility] 08-13-2025 16:04-0400 Systolic Blood Pressure Non-Invasive 138 mm[Hg] SHUKRILORIE MELENDEZRANJANN MAINTENANCE ASSISTANT-GUN EXAMINER [facility] 08-13-2025 15:10-0400 Body weight 85.3 kg SHUKRILORIE MELENDEZNEN MAINTENANCE ASSISTANT-GUN EXAMINER [facility] 08-13-2025 14:27-0400 Heart rate 67 /min SHUKRILORIE MELENDEZRANJANN MAINTENANCE ASSISTANT-GUN EXAMINER [facility] 08-13-2025 14:27-0400 Respiratory rate 16 /min SHUKRILORIE MELENDEZNEN MAINTENANCE ASSISTANT-GUN EXAMINER [facility] 08-13-2025 10:02-0400 Heart rate 70 /min SHUKRI NORANEN MAINTENANCE ASSISTANT-GUN EXAMINER [facility] 08-13-2025 10:02-0400 Respiratory rate 16 /min SHUKRI KENNEN MAINTENANCE ASSISTANT-GUN EXAMINER [facility] 08-13-2025 09:23-0400 Heart rate 70 /min SHUKRI DAVID APRN-GUN EXAMINER [facility] 08-13-2025 07:09-0400 Body temperature 98.6 [degF] SHUKRI DAVID APRN-GUN EXAMINER [facility] 08-13-2025 07:09-0400 Diastolic Blood Pressure Non-Invasive 59 mm[Hg] SHUKRI DAVID APRN-GUN EXAMINER [facility] 08-13-2025 07:09-0400 Reason For Taking VItal Signs SHUKRI DAVID APRN-GUN EXAMINER [facility] 08-13-2025 07:09-0400 Systolic Blood Pressure Non-Invasive 142 mm[Hg] SHUKRI DAVID APRN-GUN EXAMINER [facility] 08-13-2025 03:50-0400 Body temperature 98.42 [degF] SHUKRI DAVID APRN-GUN EXAMINER [facility] 08-13-2025 03:50-0400 Reason For Taking VItal Signs SHUKRI DAVID APRN-GUN EXAMINER [facility] 08-12-2025 17:25-0400 Heart rate 78 /min SHUKRI DAVID APRN-GUN EXAMINER [facility] 08-12-2025 11:02-0400 SaO2% (BldA) [Mass fraction] 95.3 % SHUKRI DAVID APRN-GUN EXAMINER [facility] 08-12-2025 09:19-0400 Heart rate 70 /min SHUKRI DAVID APRN-GUN EXAMINER [facility] 08-12-2025 08:09-0400 Heart rate 70 /min SHUKRI DAVID MAINTENANCE ASSISTANT-GUN EXAMINER [facility] 08-12-2025 03:13-0400 Heart rate 69 /min SHUKRI DAVID MAINTENANCE ASSISTANT-GUN EXAMINER [facility] 08-11-2025 22:31-0400 Heart rate 70 /min SHUKRI DAVID MAINTENANCE ASSISTANT-GUN EXAMINER [facility] 08-09-2025 16:08-0400 Blood Pressure Location SHUKRI DAVID MAINTENANCE ASSISTANT-GUN EXAMINER [facility] 08-09-2025 16:08-0400 Blood Pressure Method SHUKRI DAVID MAINTENANCE ASSISTANT-GUN EXAMINER [facility] 08-09-2025 10:23-0400 Body height 170.2 cm SHUKRI DAVID MAINTENANCE ASSISTANT-GUN EXAMINER [facility] 08-09-2025 10:23-0400 Body weight 28.34 kg/m2 SHUKRI DAVID MAINTENANCE ASSISTANT-GUN EXAMINER [facility] 08-09-2025 10:23-0400 Body weight 82.1 kg SHUKRI DAVID MAINTENANCE ASSISTANT-GUN EXAMINER [facility] 08-09-2025 08:43-0400 Heart rate 82 /min ALINA LOYA MD FACP [facility] 08-09-2025 07:32-0400 Body temperature 97.88 [degF] ALINA LOYA MD FACP [facility] 08-09-2025 07:32-0400 Diastolic Blood Pressure Non-Invasive 48 mm[Hg] ALINA LOYA MD FACP [facility] 08-09-2025 07:32-0400 Heart rate 78 /min ALINA LOYA MD FACP [facility] 08-09-2025 07:32-0400 Reason For Taking VItal Signs ALINA LOYA MD FACP [facility] 08-09-2025 07:32-0400 Respiratory rate 18 /min ALINA LOYA MD FACP [facility] 08-09-2025 07:32-0400 Systolic Blood Pressure Non-Invasive 134 mm[Hg] ALINA LOYA MD FACP [facility] 08-09-2025 06:41-0400 Heart rate 80 /min ALINA LOYA MD FACP [facility] 08-09-2025 06:41-0400 Respiratory rate 18 /min ALINA LOYA MD FACP [facility] 08-08-2025 23:09-0400 Heart rate 78 /min ALINA LOYA MD FACP [facility] 08-08-2025 19:54-0400 Body temperature 97.7 [degF] ALINA LOYA MD FACP [facility] 08-08-2025 19:54-0400 Diastolic Blood Pressure Non-Invasive 62 mm[Hg] ALINA LOYA MD FACP [facility] 08-08-2025 19:54-0400 Heart rate 73 /min ALINA LOYA MD FACP [facility] 08-08-2025 19:54-0400 Reason For Taking VItal Signs ALINA LOYA MD FACP [facility] 08-08-2025 19:54-0400 Respiratory rate 20 /min ALINA LOYA MD FACP [facility] 08-08-2025 19:54-0400 Systolic Blood Pressure Non-Invasive 119 mm[Hg] ALINA LOYA MD FACP [facility] 08-08-2025 16:59-0400 Heart rate 81 /min ALINA LOYA MD FACP [facility] 08-08-2025 16:51-0400 Diastolic Blood Pressure Non-Invasive 73 mm[Hg] ALINA LOYA MD FACP [facility] 08-08-2025 16:51-0400 Systolic Blood Pressure Non-Invasive 116 mm[Hg] ALINA LOYA MD FACP [facility] 08-08-2025 09:44-0400 Heart rate 86 /min ALINA LOYA MD FACP [facility] 08-08-2025 07:56-0400 Body temperature 99.14 [degF] ALINA LOYA MD FACP [facility] 08-08-2025 07:56-0400 Reason For Taking VItal Signs ALINA LOYA MD FACP [facility] 08-08-2025 07:49-0400 Body weight 80.2 kg ALINA LOYA MD FACP [facility] 08-06-2025 18:16-0400 Body temperature 98.42 [degF] ALINA LOYA MD FACP [facility] 08-05-2025 16:32-0400 Body height 170.2 cm ALINA LOYA MD FACP [facility] 08-05-2025 16:32-0400 Body weight 59.1 kg ALINA LOYA MD [facility] 08-05-2025 16:32-0400 Body weight 20.4 kg/m2 ALINA LOYA MD [facility] 08-05-2025 12:14-0400 Body temperature 98 [degF] Dr. Dulce Maria Raymond MD [facility] 08-05-2025 12:14-0400 Diastolic blood pressure 79 mm[Hg] Dr. Dulce Maria Raymond MD [facility] 08-05-2025 12:14-0400 Heart rate 102 /min Dr. Dulce Maria Raymond MD [facility] 08-05-2025 12:14-0400 Inhaled oxygen flow rate 3 L/min Dr. Dulce Maria Raymond MD [facility] 08-05-2025 12:14-0400 Respiratory rate 16 /min Dr. Dulce Maria Raymond MD [facility] 08-05-2025 12:14-0400 SaO2% (BldA) [Mass fraction] 92 % Dr. Dulce Maria Raymond MD [facility] 08-05-2025 12:14-0400 Systolic blood pressure 135 mm[Hg] Dr. Dulce Maria Raymond MD [facility] 08-05-2025 06:00-0400 Body mass index (BMI) [Ratio] 28.9 kg/m2 Dr. Dulce Maria Raymond MD [facility] 08-05-2025 06:00-0400 Body weight 83.[address] Dulce Maria Raymond MD [facility] 08-03-2025 15:11-0400 Body height 170.[address] Dulce Maria Raymond MD [facility] 07-29-2025 11:51-0400 Inhaled oxygen concentration 30 % Dr. Dulce Maria Raymond MD [facility] 07-30-2023 15:11-0400 Body temperature 98.2 [degF] Dr. Danilo Oneill Work Phone: [facility] 07-30-2023 15:11-0400 Diastolic blood pressure 80 mm[Hg] Dr. Danilo Oneill Work Phone: [facility] 07-30-2023 15:11-0400 Heart rate 102 /min Dr. Danilo Oneill Work Phone: [facility] 07-30-2023 15:11-0400 Inhaled oxygen flow rate 3 L/min Dr. Danilo Oneill Work Phone: [facility] 07-30-2023 15:11-0400 Respiratory rate 18 /min Dr. Danilo Oneill Work Phone: [facility] 07-30-2023 15:11-0400 SaO2% (BldA) [Mass fraction] 95 % Dr. Danilo Oneill Work Phone: [facility] 07-30-2023 15:11-0400 Systolic blood pressure 143 mm[Hg] Dr. Danilo Oneill Work Phone: [facility] 07-29-2023 15:21-0400 Inhaled oxygen concentration 94 % Dr. Danilo Oneill Work Phone: [facility] 07-29-2023 10:02-0400 Body height 170.[address] Danilo Oneill Work Phone: [facility] 07-29-2023 10:02-0400 Body weight 90.[address] Danilo Oneill Work Phone: [facility] 07-28-2023 22:45-0400 Body mass index (BMI) [Ratio] 31.2 kg/m2 Dr. Danilo Oneill Work Phone: [facility] 07-28-2023 22:10-0400 SaO2% (BldA) [Mass fraction] 88 % [facility] 07-28-2023 22:00-0400 Diastolic blood pressure 78 mm[Hg] [facility] 07-28-2023 22:00-0400 Systolic blood pressure 127 mm[Hg] [facility] 07-28-2023 21:40-0400 Heart rate 132 /min [facility] 07-28-2023 21:40-0400 Respiratory rate 21 /min [facility] 07-28-2023 20:29-0400 Inhaled oxygen flow rate 4 L/min [facility] 07-28-2023 20:00-0400 Body temperature 100.3 [degF] [facility] 07-28-2023 19:11-0400 Body height 170 cm [facility] 07-28-2023 19:11-0400 Body mass index (BMI) [Ratio] 31.7 kg/m2 [facility] 07-28-2023 19:11-0400 Body weight 91.8 kg [facility] 03-15-2023 12:44-0400 Body mass index (BMI) [Ratio] 33.3 kg/m2 [facility] 03-15-2023 12:44-0400 Body weight 96.4 kg [facility] 03-15-2023 11:31-0400 Body height 170.18 cm [facility] 03-15-2023 11:31-0400 Body temperature 98.1 [degF] [facility] 03-15-2023 11:31-0400 Diastolic blood pressure 90 mm[Hg] [facility] 03-15-2023 11:31-0400 Heart rate 90 /min [facility] 03-15-2023 11:31-0400 Respiratory rate 18 /min [facility] 03-15-2023 11:31-0400 SaO2% (BldA) [Mass fraction] 82 % [facility] 03-15-2023 11:31-0400 Systolic blood pressure 105 mm[Hg] [facility] 02-16-2022 07:09-0400 Body temperature 98.5 [degF] [facility] Work Phone: 02-16-2022 07:09-0400 Diastolic blood pressure 59 mm[Hg] [facility] Work Phone: 02-16-2022 07:09-0400 Heart rate 73 /min [facility] Work Phone: 02-16-2022 07:09-0400 Inhaled oxygen flow rate 3 L/min [facility] Work Phone: 02-16-2022 07:09-0400 Respiratory rate 18 /min [facility] Work Phone: 02-16-2022 07:09-0400 SaO2% (BldA) [Mass fraction] 93 % [facility] Work Phone: 02-16-2022 07:09-0400 Systolic blood pressure 143 mm[Hg] [facility] Work Phone: 02-13-2022 13:37-0400 Body height 170.18 cm [facility] Work Phone: 02-13-2022 13:37-0400 Body weight 94.34 kg [facility] Work Phone: 01-31-2022 15:14-0400 Body mass index (BMI) [Ratio] 32.8 kg/m2 [facility] Work Phone: 01-31-2022 14:14-0400 Body temperature 98.1 [degF] Dr. Danilo Oneill Work Phone: [facility] Work Phone: 01-31-2022 14:14-0400 Diastolic blood pressure 56 mm[Hg] Dr. Danilo Oneill Work Phone: [facility] Work Phone: 01-31-2022 14:14-0400 Heart rate 99 /min Dr. Danilo Oneill Work Phone: [facility] Work Phone: 01-31-2022 14:14-0400 Respiratory rate 18 /min Dr. Danilo Oneill Work Phone: [facility] Work Phone: 01-31-2022 14:14-0400 SaO2% (BldA) [Mass fraction] 93 % Dr. Danilo Oneill Work Phone: [facility] Work Phone: 01-31-2022 14:14-0400 Systolic blood pressure 136 mm[Hg] Dr. Danilo Oneill Work Phone: [facility] Work Phone: 01-29-2022 06:56-0400 Body height 170.[address] Danilo Oneill Work Phone: [facility] Work Phone: 01-29-2022 06:56-0400 Body mass index (BMI) [Ratio] 32.3 kg/m2 Dr. Danilo Oneill Work Phone: [facility] Work Phone: 01-29-2022 06:56-0400 Body weight 93.[address] Danilo Oneill Work Phone: [facility] Work Phone: 01-26-2022 18:50-0400 Body temperature 97 [degF] [facility] Work Phone: 01-26-2022 18:50-0400 Diastolic blood pressure 62 mm[Hg] [facility] Work Phone: 01-26-2022 18:50-0400 Heart rate 80 /min [facility] Work Phone: 01-26-2022 18:50-0400 Respiratory rate 17 /min [facility] Work Phone: 01-26-2022 18:50-0400 SaO2% (BldA) [Mass fraction] 98 % [facility] Work Phone: 01-26-2022 18:50-0400 Systolic blood pressure 153 mm[Hg] [facility] Work Phone: 01-26-2022 16:01-0400 Body height 170.18 cm [facility] Work Phone: 01-26-2022 16:01-0400 Body mass index (BMI) [Ratio] 33.5 kg/m2 [facility] Work Phone: 01-26-2022 16:01-0400 Body weight 97 kg [facility] Work Phone: Encounters Encounter Date Encounter Type Care Provider Facility Start: 08-23-2025 End: 08-23-2025 Emergency department patient visit Austin Huber Facility:[facility] Start: 08-22-2025 ambulatory Jyotsna BANG Fa cility:[facility] Start: 08-19-2025 End: 08-19-2025 ambulatory TAYLOR TAYLOR Facility:[facility] Start: 08-18-2025 ambulatory Eflety Blackwell OLS Fa cility:[facility] Start: 08-15-2025 ambulatory TAYLOR TAYLOR Facilit y:[facility] Start: 08-10-2025 ambulatory Jane Jay Facility: [facility] Start: 08-09-2025 End: 08-13-2025 Evaluation and management of inpatient SHUKRI DAVID MAINTENANCE ASSISTANT-GUN EXAMINER [facility] Start: 08-05-2025 End: 08-09-2025 Evaluation and management of inpatient ALINA LOYA MD FACP [facility] Start: 08-05-2025 Dr. Antoni Argueta formerly [facility] Work Phone: Start: 08-04-2025 Dr. Antoni Argueta formerly [facility] Work Phone: Start: 08-03-2025 Dr. Antoni Argueta formerly [facility] Work Phone: Start: 08-03-2025 Karlee Rodriguez NP-C - [facility] Start: 08-02-2025 Dr. Antoni Argueta formerly [facility] Work Phone: Start: 08-01-2025 Dr. Antoni Argueta formerly [facility] Work Phone: Start: 07-31-2025 Dr. Gena Porter MD - [facility] Work Phone: Start: 07-30-2025 Dr. Gena Porter MD -[facility] Work Phone: Start: 07-29-2025 ambulatory Kamrondemond Nguyen Facility :[facility] Start: 07-29-2025 Kamrondemond Nguyen DO -[facility] Start: 07-29-2025 Dr. William Chavez DO -[facility] Start: 07-28-2025 Kamrongalileo Nguyen DO -[facility] Start: 07-28-2025 Dr. William Chavez DO -[facility] Start: 07-27-2025 Dr. William Chavez DO -[facility] Start: 07-26-2025 ambulatory Jonel Lorenzo Facility:[facility] Start: 07-26-2025 Kamrondemond Nguyen DO -[facility] Start: 07-26-2025 Dr. William Chavez DO -[facility] Start: 07-25-2025 Kamrondemond Nguyen DO -[facility] Start: 07-25-2025 Dr. Jonel Lorenzo MD -[facility] Work Phone: Start: 07-24-2025 Dr. Ying Jay DO -[facility] Work Phone: Start: 07-23-2025 ambulatory TAYLOR TAYLOR Facilit y:[facility] Start: 07-23-2025 Dr. Andreina Guardado MD -[facility] Start: 2025 Kamrondemond Nguyen DO -[facility] Start: 2025 ambulatory [facility] Facility: [facility] Start: 2025 End: 08-05-2025 Evaluation and management of inpatient Dr. Dulce Maria Raymond MD -Progressive Care Unit Start: 2025 End: 08-05-2025 Dr. Antoni Argueta DO -[facility] Unit Work Phone: Start: 06-11-2025 ambulatory [facility] Facility :[facility] Start: 05-23-2025 End: 05-23-2025 ambulatory TAYLOR TAYLOR MAINTENANCE ASSISTANT-GUN EXAMINER Facility:[facility] Start: 05-23-2025 End: 05-23-2025 Patient encounter procedure TAYLOR TAYLOR MAINTENANCE ASSISTANT-GUN EXAMINER [facility] Start: 05-16-2025 ambulatory [facility] Facility :[facility] Start: 12-24-2024 End: 12-24-[address] Danilo Oneill DO Work Phone: [facility] Work Phone: Start: 12-24-2024 End: 12-24-[address] Jane Jay DO -Laboratory Work Phone: Start: 12-24-2024 End: 12-24-2024 ambulatory [facility] Facility:[facility] Start: 12-17-2024 End: 12-17-[address] Danilo Oneill DO Work Phone: [facility] Work Phone: Start: 12-17-2024 End: 12-17-[address] Jane Jay DO -Laboratory Work Phone: Start: 12-17-2024 End: 12-17-2024 ambulatory Jane Jay Facility:[facility] Start: 06-17-2024 End: 06-21-2024 Outreach Lab TAYLOR TAYLOR MAINTENANCE ASSISTANT-GUN EXAMINER [facility] Start: 11-18-2023 End: 11-18-[address] Danilo Oneill Work Phone: [facility] Work Phone: Start: 11-18-2023 End: 11-18-[address] Danilo Oneill Work Phone: [facility]-Laboratory, Phy Office 3rd Ner Start: 11-11-2023 End: 11-11-[address] Danilo Oneill Work Phone: [facility] Work Phone: Start: 11-11-2023 End: 11-11-[address] Danilo Oneill Work Phone: [facility] Work Phone: Start: 07-30-2023 Non-patient / Non-visit Dr. Veronica Oneill Work Phone: [facility] Work Phone: Start: 07-29-2023 Non-patient / Non-visit Dr. Veronica Oneill Work Phone: [facility] Work Phone: Start: 07-28-2023 Non-patient / Non-visit Dr. Veronica Oneill Work Phone: [facility] Work Phone: Start: 07-28-2023 End: 07-30-2023 Evaluation and management of inpatient [facility]Pro[facility] Work Phone: Start: 06-30-2023 End: 06-30-2023 ambulatory [facility] Work Phone: Start: 06-30-2023 End: 06-30-2023 Patient encounter procedure [facility] Work Phone: Start: 03-15-2023 End: 03-15-2023 Emergency department patient visit [facility] Start: 01-07-2023 End: 01-07-2023 ambulatory [facility] Work Phone: Start: 01-07-2023 End: 01-07-2023 Patient encounter procedure [facility] Start: 12-30-2022 End: 12-30-2022 ambulatory [facility] Work Phone: Start: 12-30-2022 End: 12-30-2022 Patient encounter procedure [facility] Start: 10-21-2022 End: 10-21-2022 ambulatory [facility] Work Phone: Start: 10-21-2022 End: 10-21-2022 Patient encounter procedure [facility] Start: 09-24-2022 ambulatory DANILO ONEILL DO Facil ity:A Start: 09-17-2022 End: 09-17-2022 ambulatory [facility] Work Phone: Start: 09-17-2022 End: 09-17-2022 Patient encounter procedure [facility]Laboratory, Phy Office 3rd Flr Start: 09-10-2022 End: 09-10-2022 ambulatory [facility] Work Phone: Start: 09-10-2022 End: 09-10-2022 Patient encounter procedure [facility] Start: 06-11-2022 End: 06-11-2022 ambulatory [facility] Work Phone: Start: 06-11-2022 End: 06-11-2022 Patient encounter procedure [facility] Start: 05-28-2022 End: 05-28-2022 Patient encounter procedure [facility] Start: 01-31-2022 End: 02-16-2022 Evaluation and management of inpatient [facility]Transitional Care Unit Start: 01-31-2022 Non-patient / Non-visit Dr. Veronica Oneill Work Phone: [facility] Start: 01-30-2022 Non-patient / Non-visit Dr. Veronica Oneill Work Phone: [facility] Start: 01-29-2022 Non-patient / Non-visit Dr. Veronica Oneill Work Phone: [facility] Start: 01-28-2022 Non-patient / Non-visit Dr. Veronica Oneill Work Phone: [facility] Start: 01-27-2022 Non-patient / Non-visit Dr. Veronica Oneill Work Phone: [facility] Start: 01-26-2022 Non-patient / Non-visit Dr. Veronica Oneill Work Phone: [facility] Start: 01-26-2022 End: 01-31-2022 Evaluation and management of inpatient [facility] 3 Start: 04-12-2017 End: 04-12-2017 Emergency department patient visit BURKE GRAMAJO Facility:[facility] Procedures Date Procedure Procedure Detail Performing [...] Start: 07-25-[address] Dulce Maria Raymond MD Start: 07-25-2025 Plain chest X-ray [...] MD Start: 07-23-[address] Dulce Maira carvalho MD Start: 2025 Plain chest X-ray Dr. [...] cholecystectomy Statu s post cholecystectomy TAYLOR TAYLOR MAINTENANCE ASSISTANT-GUN EXAMINER History of cholecystectomy Hx la paroscopic cholecystectomy Dr. Danilo Oneill DO Work Phone: Viral antigen assay Plan of Treatment Date Care Activity Detail Author Start: 08-05-2025 Patient discharge [facility] Start: 08-04-2025 Introduction of urinary catheter [facility] Start: 08-04-2025 [facility] Start: 08-01-2025 [facility] Start: 07-30-2025 Patient referral to dietitian [facility] Start: 07-30-2025 [facility] Start: 07-29-2025 Following clinical pathway protocol [facility] Start: 07-29-2025 Care planning and problem solving actions [facility] Start: 07-29-2025 Implementation of planned interventions [facility] Start: 07-29-2025 Notification of physician [facility] Start: 07-28-2025 End: 07-29-2025 [facility] Start: 07-28-2025 Care planning and problem solving actions [facility] Start: 07-28-2025 Care planning and problem solving actions [facility] Start: 07-28-2025 [facility] Start: 07-25-2025 Application of intermittent pneumatic compression device [facility] Start: 07-25-2025 [facility] Start: 07-23-2025 End: 07-24-2025 [facility] Start: 07-23-2025 Respiratory therapy [facility] Start: 07-23-2025 Care planning and problem solving actions [facility] Start: 2025 Determination of Palumbo Agitation Sedation Scale (RASS) score with assessment for d [facility] Start: 2025 Elevation of head of bed [facility] Start: 2025 Mouth care [facility] Start: 2025 Respiratory therapy [facility] Start: 2025 Tracheostomy care [facility] Start: 2025 Trial for daily interruption of sedation during mechanically assisted ventilation [facility] Start: 2025 End: 2025 [facility] Start: 2025 Care regimes management [facility] Start: 2025 End: 2025 Notification of physician [facility] Start: 2025 End: 2025 Following clinical pathway protocol [facility] Start: 2025 Ambulation without limitation [facility] Start: 2025 Assessment of risk of venous thromboembolism [facility] Start: 2025 Inhalation therapy procedure [facility] Start: 2025 Insertion of catheter into peripheral vein [facility] Start: 2025 Measuring intake and output [facility] Start: 2025 Oxygen therapy [facility] Start: 2025 Providing care according to standard [facility] Start: 2025 Referral for physical therapy [facility] Start: 2025 Referral to gastroenterology service [facility] Start: 2025 Referral to occupational therapist [facility] Start: 2025 Referral to service [facility] Start: 2025 Speech therapy assessment [facility] Start: 2025 [facility] Start: 2025 Admission procedure [facility] Start: 2025 End: 2025 [facility] Start: 07-30-2023 Patient discharge [facility] Start: 07-29-2023 Referral to service [facility] Start: 07-29-2023 Microbial culture, routine Wound Culture [facility] Start: 07-29-2023 Wound care [facility] Start: 07-29-2023 Referral to service [facility] Start: 07-29-2023 Verification routine [facility] Start: 07-29-2023 Bacteria identified in Sputum by Culture [facility] Start: 07-29-2023 Referral to occupational therapist [facility] Start: 07-29-2023 Referral to service [facility] Start: 07-29-2023 Consultation for treatment [facility] Start: 07-29-2023 [facility] Start: 07-28-2023 Following clinical pathway protocol [facility] Start: 07-28-2023 Assessment of risk of venous thromboembolism [facility] Start: 07-28-2023 Cardiac monitoring [facility] Start: 07-28-2023 Care regimes management [facility] Start: 07-28-2023 Catheterization of vein [facility] Start: 07-28-2023 Inhalation therapy procedure [facility] Start: 07-28-2023 Insertion of catheter into peripheral vein [facility] Start: 07-28-2023 Notification of physician [facility] Start: 07-28-2023 Oxygen therapy [facility] Start: 07-28-2023 Providing care according to standard [facility] Start: 07-28-2023 Provision of activity privileges [facility] Start: 07-28-2023 Referral to service [facility] Start: 07-28-2023 [facility] Start: 07-28-2023 Verification routine [facility] Start: 07-28-2023 Admission procedure [facility] Start: 07-28-2023 Hospital admission, emergency, from emergency room, medical nature [facility] Start: 07-28-2023 End: 07-28-2023 Blood culture [facility] Start: 07-28-2023 Streptococcus pneumoniae antigen assay [facility] Start: 07-28-2023 [facility] Start: 07-28-2023 Bacteria identified in Blood by Culture Blood Culture [facility] Start: 07-28-2023 Legionella Antigen Legionella Antigen [facility] Start: 07-28-2023 Streptococcus pneumoniae Antigen (M Streptococcus pneumoniae Antigen (M [facility] Start: 07-28-2023 Patient referral to dietitian [facility] Start: 02-16-2022 Development of care plan [facility] Work Phone: Start: 02-16-2022 Patient discharge [facility] Work Phone: Start: 02-15-2022 [facility] Work Phone: Start: 02-09-2022 [facility] Work Phone: Start: 02-01-2022 Development of care plan [facility] Work Phone: Start: 02-01-2022 Developing a treatment plan [facility] Work Phone: Start: 01-31-2022 Referral to blender helper [facility] Work Phone: Start: 01-31-2022 Oxygen therapy [facility] Work Phone: Start: 01-31-2022 Following clinical pathway protocol [facility] Work Phone: Start: 01-31-2022 Admission procedure [facility] Work Phone: Start: 01-31-2022 Measuring intake and output [facility] Work Phone: Start: 01-31-2022 Patient referral to dietitian [facility] Work Phone: Start: 01-31-2022 Referral to occupational therapist [facility] Work Phone: Start: 01-31-2022 Referral to service [facility] Work Phone: Start: 01-31-2022 Vital signs measurements [facility] Work Phone: Start: 01-31-2022 End: 01-31-2022 [facility] Work Phone: Legionella pneumophi la Ag [Presence] in Urine [facility] Patient Education [facility] Work Phone: Patient referral [facility] Work Phone: Immunizations Immunization Date Immunization Notes Care Provider [facility] 08-06-2025 influenza, high dose seasonal, preservative-free ALINA LOYA MD FAC [facility] 07-24-2023 influenza virus vacc ine, unspecified formulation TAYLOR BRANDON MAINTENANCE ASSISTANT-GUN EXAMINER [facility] 07-24-2023 RSV vaccine, preF A- preF B, recombinant TAYLOR BRANDON MAINTENANCE ASSISTANT-GUN EXAMINER [facility] 08-06-2022 influenza virus vacc ine, unspecified formulation TAYLOR BRANDON MAINTENANCE ASSISTANT-GUN EXAMINER [facility] 02-05-2022 Covid (Pfizer) [facility] Comment on above: Result Comment: 2022: [id number] 07-14-2021 Covid (Pfizer) [facility] 07-14-2021 influenza virus vacc ine, unspecified formulation TAYLOR BRANDON MAINTENANCE ASSISTANT-GUN EXAMINER [facility] 07-14-2021 Influenza, high dose seasonal Dr. Danilo Oneill DO Work Phone: [facility] 07-14-2021 influenza, high dose seasonal, preservative-free [facility] 07-14-2021 Dr. Dulce Maria Raymnod MD [facility] 01-09-2021 Covid (Pfizer) [facility] 12-19-2020 Covid (Pfizer) [facility] Comment on above: Result Comment: 2020: [id number] 08-05-2018 influenza virus vacc ine, unspecified formulation TAYLOR BRANDON MAINTENANCE ASSISTANT-GUN EXAMINER [facility] 07-02-2017 influenza virus vacc ine, unspecified formulation TAYLOR BRANDON MAINTENANCE ASSISTANT-GUN EXAMINER [facility] 04-12-2017 tetanus toxoid, redu wiliam diphtheria toxoid, and acellular pertussis vaccine, adsorbed TAYLOR BRANDON MAINTENANCE ASSISTANT-GUN EXAMINER [facility] 10-13-2016 influenza virus vacc ine, unspecified formulation TAYLOR BRANDON MAINTENANCE ASSISTANT-GUN EXAMINER [facility] 08-22-2016 influenza virus vacc ine, unspecified formulation TAYLOR BRANDON MAINTENANCE ASSISTANT-GUN EXAMINER [facility] 07-15-2016 Influenza virus vaccine [facility] 07-15-2016 Dr. Dulce Maria Raymond MD [facility] 10-13-2015 tetanus toxoid, redu wiliam diphtheria toxoid, and acellular pertussis vaccine, adsorbed [facility] 07-10-2015 influenza virus vacc ine, unspecified formulation TAYLOR BRANDON MAINTENANCE ASSISTANT-GUN EXAMINER [facility] 07-20-2014 influenza virus vacc ine, unspecified formulation TAYLOR BRANDON MAINTENANCE ASSISTANT-GUN EXAMINER [facility] 10-13-2013 pneumococcal polysaccharide vaccine, 23 valent [facility] 10-13-2012 influenza virus vacc ine, unspecified formulation TAYLOR BRANDON MAINTENANCE ASSISTANT-GUN EXAMINER [facility] 10-13-2011 pneumococcal conjuga te vaccine, 13 [facility] 09-25-2009 novel influenza-H1N1 -09, preservative-free, injectable [facility] Payers Date Payer Category Payer Medicare [id number] 2024 Self-pay [id number] 2024 Private Health Insurance [id number] 2022 Private Health Insurance [facility] [id number] 2017 Private Health Insurance [id number] 2011 Medicare [id number] 1945 Unknown [id number] 2.16.8 40.1.401573.3.579.2.627 1945 Unknown [id number] 2.16. 840.1.113425.3.579.2.627 1945 Unknown [id number] 2.16. 840.1.424952.3.579.2.627 1945 Unknown [id number] 2.16. 840.1.328094.3.579.2.627 Unknown [id number] 2.16.8 40.1.811337.3.579.2.462 Unknown [id number] 2.16.8 40.1.224203.3.579.2.462 Unknown [id number] 2.16.8 40.1.901338.3.579.2.462 Unknown [id number] 2.16.8 40.1.766408.3.579.2.462 Unknown [id number] 2.16.8 40.1.651623.3.579.2.462 Unknown [id number] 2.16.8 40.1.591132.3.579.2.462 Unknown [id number] 2.16.8 40.1.448500.3.579.2.462 Unknown [id number] 2.16.8 40.1.592972.3.579.2.462 Unknown [id number] 2.16.8 40.1.430402.3.579.2.462 Unknown [id number] 2.16.8 40.1.008457.3.579.2.462 Unknown [id number] 2.16.8 40.1.234792.3.579.2.462 Unknown [id number] 2.16.8 40.1.905748.3.579.2.462 Unknown [id number] 2.16.8 40.1.171684.3.579.2.462 Unknown [id number] 2.16.8 40.1.663374.3.579.2.462 Unknown [id number] 2.16.8 40.1.128749.3.579.2.462 Unknown [id number] 2.16.8 40.1.096683.3.579.2.462 Unknown [id number] 2.16.8 40.1.943391.3.579.2.462 Unknown [id number] 2.16.8 40.1.406298.3.579.2.462 Unknown [id number] 2.16.8 40.1.662473.3.579.2.462 Unknown [id number] 2.16.8 40.1.160363.3.579.2.462 Unknown [id number] 2.16.8 40.1.140887.3.579.2.462 Unknown [id number] 2.16.8 40.1.063140.3.579.2.462 Unknown [id number] 2.16.8 40.1.592250.3.579.2.462 Unknown [id number] 2.16.8 40.1.216570.3.579.2.462 Unknown [id number] 2.16.8 40.1.735645.3.579.2.462 Unknown [id number] 2.16.8 40.1.908265.3.579.2.462 Unknown [id number] 2.16.8 40.1.264435.3.579.2.462 Unknown [id number] 2.16.8 40.1.223300.3.579.2.462 Unknown [id number] 2.16.8 40.1.544669.3.579.2.462 Unknown [id number] 2.16.8 40.1.283441.3.579.2.462 Unknown [id number] 2.16.8 40.1.131372.3.579.2.462 Unknown [id number] 2.16.8 40.1.345489.3.579.2.462 Unknown [id number] 2.16.8 40.1.784879.3.579.2.462 Unknown [id number] 2.16.8 40.1.671829.3.579.2.462 Unknown [id number] 2.16.8 40.1.034334.3.579.2.462 Unknown [id number] 2.16.8 40.1.512684.3.579.2.462 Unknown [id number] 2.16.8 40.1.057197.3.579.2.462 Unknown [id number] 2.16.8 40.1.778946.3.579.2.462 Social History Date Type Detail Facility Start: 01-26-2022 End: 07-28-2023 Tobacco smoking status NHIS Unknown if ever smoked [facility] Start: 07-19-2020 None [facility] Start: 07-19-2020 With Family [facility] Start: 02-27-2021 Non-smoker [facility] Start: 1945 Sex Assigned At Female [facility] Start: 11-11-2023 End: 08-05-2025 Tobacco smoking status Ex-smoker (finding) [facility] Start: 04-07-2019 End: 12-30-2024 Sex Female (finding) [facility] Sexual Orientation [facility] Sex [facility] Sexual Sexually active: No. [facility] Start: 08-05-2025 End: 08-09-2025 Not applicable (qualifier value) [facility] Medical Equipment Procedure Code Equipment Code Equipment Original Text Equipment Identifier Dates Total cholecystectomy with exploration of common bile duct ()[id number] FDA Start: 03-02-2024 ORIF, ankle 1.35 MM KWIRE FDA Start: 01-29-2022 ORIF, ankle 3.5 LOCKING FDA Start: 01-29-2022 ORIF, ankle 3.5 LOCKING FDA Start: 01-29-2022 ORIF, ankle 3.5 LOCKING FDA Start: 01-29-2022 ORIF, ankle 3.5 LOCKING FDA Start: 01-29-2022 ORIF, ankle 6 HOLE DISTAL FIBULA LOCKING FDA Start: 01-29-2022 ORIF, ankle ()[id number] FDA Start: 01-29-2022 ORIF, ankle 1.35 MM [...] Start: 01-29-2022 ERCP (endoscopic retrograde cholangiopancreatograph y) ([id number]) ()[id number] FDA Start: 03-01-2024 ERCP (endoscopic retrograde cholangiopancreatograph y) ()[id number] FDA Start: 03-01-2024 EGD, with monitored anesthesia care ()[id number] FDA Start: 07-29-2025 See Instructions , Dispense One Touch glucose test strips, #200, use 1 strip twice daily as directed to test blood sugar. Diagnosis: E11.9, # 200 EA, 3 Refill(s), Pharmacy: [facility], DM (diabetes mellitus), 165, cm, 05/25/24 13:47:00 EDT, Height, 75.2, kg, 05/25/24 13:47:00 EDT, Dosing Weight Start: 05-31-2024 See Instructions , Dispense One Touch glucose test strips, #200, use 1 strip twice daily as directed to test blood sugar. Diagnosis: E11.9, # 200 EA, 3 Refill(s), Pharmacy: [facility], DM (diabetes mellitus), 165, cm, 05/25/24 13:47:00 EDT, Height, 75.2, kg, 05/25/24 13:47:00 EDT, Dosing Weight Start: 05-31-2024 See Instructions , Dispense One Touch glucose test strips, #200, use 1 strip twice daily as directed to test blood sugar. Diagnosis: E11.9, # 200 EA, 3 Refill(s), Pharmacy: [facility], DM (diabetes mellitus), 163, cm, 05/16/25 10:49:00 EDT, Height, 83, kg, 05/16/25 10:49:00 EDT, Dosing Weight Start: 05-26-2025 See Instructions , Dispense One Touch glucose test strips, #200, use 1 strip twice daily as directed to test blood sugar. Diagnosis: E11.9, # 200 EA, 3 Refill(s), Pharmacy: [facility], DM (diabetes mellitus), 163, cm, 05/16/25 10:49:00 EDT, Height, 83, kg, 05/16/25 10:49:00 EDT, Dosing Weight Start: 05-26-2025 Goals Date Patient Goal Desired Activity /State Functional Status Date Assessment Result Facility 08-13-2025 Functional Status Other: 7AM-5PM [facility] 08-13-2025 Functional Status Returned to bed [facility] 08-13-2025 Functional Status [facility] 08-13-2025 [facility] 08-13-2025 Functional Status Room check performed [facility] 08-13-2025 Functional Status [facility] 08-13-2025 Functional Status [facility] 08-12-2025 Functional Status Yes [facility] 08-12-2025 [facility] 08-12-2025 Functional Status [facility] 08-12-2025 [facility] 08-12-2025 Functional Status [facility] 08-11-2025 Functional Status [facility] 08-11-2025 [facility] 08-11-2025 Functional Status Supervised [facility] 08-11-2025 Functional Status Front wheeled [facility] 08-10-2025 Functional Status Assistive Device [facility] 08-10-2025 Functional Status Enrico Machado [facility] 08-09-2025 Functional Status Positioning Repositione d back [facility] 08-09-2025 Functional Status 1st floor bedr oom, 1st floor bathroom [facility] 08-09-2025 Functional Status Sensory Deficits None [facility] 08-09-2025 Functional Status Maintained Enrico Machado [facility] 08-09-2025 Functional Status Identified as high risk, Fall ID band on, Room located near nursing station, Bed alert on, Door open, Non-Slip footwear [facility] 08-09-2025 [facility] 08-09-2025 Functional Status Enrico Machado [facility] 08-08-2025 Functional Status Enrico Machado [facility] 08-08-2025 Functional Status Enrico Machado [facility] 08-08-2025 Functional Status Mod A Enrico Machado [facility] 08-08-2025 Functional Status OT Toilet Transfers Mod A [facility] 08-08-2025 [facility] 08-08-2025 Functional Status Enrico Machado [facility] 08-08-2025 [facility] 08-08-2025 Functional Status Enrico Machado [facility] 08-08-2025 Functional Status Mod A Enrico Machado [facility] 08-07-2025 Functional Status Enrico Machado [facility] 08-07-2025 Functional Status Enrico Machado [facility] 08-07-2025 [facility] 08-07-2025 Functional Status One assist Enrico Machado [facility] 08-07-2025 [facility] 08-06-2025 Functional Status Single level h ome, 1st floor bedroom, 1st floor bathroom, 1st floor laundry [facility] 08-06-2025 Functional Status Enrico Machado [facility] 08-05-2025 Functional Status Enrico Machado [facility] 08-05-2025 Functional status With Assist of 1 [facility] Work Phone: 08-03-2025 Functional status Ambulates [facility] Work Phone: 07-30-2023 Functional status Ambulates;Nagi r;Bathroom Privilege [facility] Work Phone: 02-16-2022 Functional status Activity Abili ty With Assist of 1 [facility] Work Phone: 02-14-2022 Functional status Patient Activity Bedres t [facility] Work Phone: 01-31-2022 Functional status Bedrest [facility] Work Phone: Mental Status Date Assessment Result [facility] 08-12-2025 Mental Status Oriented x 4 [facility] 08-12-2025 Mental Status [facility] 08-12-2025 Mental Status [facility] 08-11-2025 Mental Status [facility] 08-09-2025 Mental Status Oriented x 4 [facility] 08-08-2025 Mental Status [facility] 08-08-2025 Mental Status [facility] 08-07-2025 Mental Status [facility] 08-06-2025 Mental Status [facility] 08-06-2025 [facility] 08-05-2025 Cognitive function Voice/Name [facility] Work Phone: 07-30-2023 Cognitive function Voice/Name [facility] Work Phone: 02-16-2022 Cognitive function Voice/Name [facility] Work Phone: 01-31-2022 Cognitive function Voice/Name Eva Morgan [facility] Work Phone: Clinical Notes 07-28-2023 to 08-13-2025 [...] 09/29/2006 Document Revised: 09/11/2018 Document Reviewed: 11/01/2017 fl3ur Patient Education 2019 [employer]. [facility] 08-13-2025 Note Discharge Instructions Thank you for allowing [facility] to assist you with your healthcare needs. The following is important discharge information regarding your hospital visit. Your Care Team [facility] Your Diagnosis Achalasia Acute exacerbation [...] Contact Information StatusPC OV 11/14/2025 11:00 AM ROSALINDA TAYLOR TAYLOR TRAE-DIANA [facility] Terry Confirmed The Following Activity and Diet Have [...] -- BMP, Hyponatremia, hypokalemia, Results Notify to: [facility] provider, Obtain BMP 08/15/25 and 08/18/25, 08/13/25 [...] -- BMP, Hyponatremia, hypokalemia, Results Notify to: [facility] provider, Obtain BMP 08/15/25 and 08/18/25, 08/13/25 [...] 301-350-6 units 350-400-8 units >400, Call provider 08/13 4units @ 1200 New sodium chloride (Hypertonic [...] Once a day Duration: 08/13 9:17AM Unchanged DME (Blood Glucose Test [...] 09/29/2006 Document Revised: 09/11/2018 Document Reviewed: 11/01/2017 Elsevier Patient Education 2020 [employer]. Additional Information VACCINATE! IT SAVES LIVES! Members of the community who have not yet received the COVID-19 vaccine and would like to receive it can visit one of [facility] vaccine clinics. There are many vaccine clinic locations within the [facility]. For locations and available times, please visit [email or web address].o hio.gov/. It is important to note that some COVID mobile vaccine clinics are held outdoors and may be canceled in rainy or stormy conditions. To learn more about pediatric vaccinations (ages 5-11), we invite you to visit the [employer] webpage. [email or web address].remoceans.org/p [email or web address]-Zbzxw-Hktffijzwlm-Freq chlavj-[email or web address]-[email or web address].html To learn more about the COVID-19 vaccine, we invite you to visit the CDC website for a list of frequently asked questions.https://www.cdc.gov/co ronavirus/2019-ncov/vaccines/faq .html [employer] Patient Portal Access Instructions: Stay connected with your healthcare team and access your personal medical information anytime with the [employer] Patient Portal. Please follow the directions below to create your [employer] account: 1.Access the email account you provided upon registration to the hospital/physician office.2.Look for an invitation email from [facility].3.Open the email and access the invitation link: Accept Invitation to [employer].4.Fill in the required magaña to create your account. To access your account, visit [employer]Yext or scan the QR code above. Click the blue button labeled Access Patient Portal and then log in with the username [...] you will allow to register [facility] for access to your information. You can also access the [facility] on the [facility] liv. Simply click on Patient Portal and then log into your account. If you would like to receive a full copy of your medical records, please contact the [facility] Medical Records Department by calling [phone], Friday through Friday between 8 a.m. and [...] Call your local pharmacy or go to [email or web address] to find one close to you.3.Make use of household items: Use cat litter or old coffee grounds to dispose medications if other options are not available. Mix your drugs with these household products, seal them in an airtight container and throw it into the garbage. Call [facility]: [phone] to be sure your drugs can be [...] aware that I should contact my doctor. Patient/Computer Laboratory Technician Signature: Date/Time: Relationship to Patient: Witness Name/Signature: Date/Time: [facility] 08-12-2025 Note Date of Service 08/12/2025 [...] today. Patient did get precert today for [facility] but, due to electrolyte abnormalities, [...] for SNF. Patient has been accepted at [facility] and pre-CERT has been obtained. Precert good [...] by CARLYN MURCIA on 08/12/2025 05:28 PM [facility] 08-11-2025 Note Date of Service 08/11/2025 Chief Complaint multiple Subjective Patient seen and evaluated this morning while resting in her chair. She is very sleepy but awakens easily to her name. She states that she is feeling well this morning. She does not have any complaints but is not overly talkative. Patient aware that we are awaiting a precert for [facility]. She should be ready for discharge there [...] for SNF. Patient has been accepted at [facility] and pre-CERT has been started. DVT prophylaxis: [...] by CARLYN MURCIA on 08/11/2025 12:07 PM [facility] 08-11-2025 Note Exam Date Time Procedure Performing Provider Status 08/11/25 5:52 AM XR Chest 1 View JOHNATHAN EDWARDS MD; Auth (Verified) [id number] ORIGINAL EXAMINATION: ONE XRAY VIEW OF THE [...] 6:01:57 AM Ordering Provider: SHUKRI DAVID RP [facility]10-29-2025 Note Date of Service 08/10/2025 Chief [...] chronic anemia, former smoker. Patient presented to [facility] ED 2025 with increasing dyspnea, fall. She [...] Patient was medically optimized and discharged to [facility] on 08/05/2025. Patient was having coarse [...] to 8 units nightly. Hold off on restarting oral agents at this time. Hyperkalemia-Lokelma 10 g [...] for SNF. Patient has been accepted at [facility] and pre-CERT has been started. DVT prophylaxis: [...] by SHUKRI DAVID on 08/10/2025 04:43 PM [facility]10-29-2025 Palliative care Consult note Date of Service 08/10/25 Palliative care consulted as a screen. Chart reviewed. Patient admitted to hospital for BENITO, hypoglycemia, and hyperkalemia. Pt is a DNRDNI. She lives in [place]. The patient does appear to benefit from palliative care at d/c as she has COPD and chronic hypoxic respiratory failure. Since she lives in [place], I would consult [facility] palliative care if the patient is interested in palliative care. Will cancel the screen. Digitally Signed by OLGA THAKKAR on 08/10/2025 09:05 AM [facility]10-28-2025 Note Date of Service 08/09/25 History [...] chronic anemia, former smoker. Patient presented to [facility] ED 2025 with increasing dyspnea, fall. She [...] Patient was medically optimized and discharged to [facility] on 08/05/2025. Patient was having coarse [...] ., 02/21/2025 Living situation: Home/Independent., 11/11/2023 Primary Personal Security Specialist: self, lives with elderly . Spouse Name: [...] mRNA (tozinameran) vaccine: 30 unknown unit (12/19/20) tetanus/diphtheria/pertussMUL.ORD![id number]: 0.5 mL (04/12/17) tetanus/diphtheria/pertussMUL.ORD![id number]: 0 unknown unit (10/13/15) Code Status Code Status - Ordered -- 08/09/25 11:08:00 EDT, DNRCC-Arrest Do Not Intubate, Constant Order Digitally Signed by SHUKRI DAVID on 08/09/2025 06:51 PM Digitally Signed by BRENDA STEINER DO on 08/10/2025 11:36 AM [facility]10-28-2025 Evaluation + Plan noteExtracted from: Title:History and Physical Author:SHUKRI DAVID Date:08/09/25 1. Acute exacerbation of chr onic [...] Appointment Date:11/14/2025 11:00:00 AM Scheduled Provider:TAYLOR TAYLOR Location:[facility] Appointment Type:PC OV Future Scheduled Tests Laboratory* Vitamin B12 Level 11/16/25 * A1C Hemoglobin 11/16/25 * Complete Blood Count 11/16/25 * Lipid Profile 11/16/25 * Albumin/Creatinine Ratio, Random Urine 11/16/25 * Vitamin D Level 11/16/25 * Complete Metabolic Panel 11/16/25 Radiology* CT Low Dose Lung Cancer Screening (LDCT) 05/16/25 [facility] 10-28-2025 Hospital Discharge instructions Patient Education 08/09/2025 09:00:43 Weakness, Gsod-ow-Biil Weakness Weakness is a lack of strength. [...] about working with a physical therapist or technical trainer to help you get stronger. General instructions Take mrzw-shs-kcbmotv and prescription medicines only as told by [...] 09/11/2009 Document Revised: 05/05/2019 Document Reviewed: 05/05/2019 fl3ur Patient Education 2020 [employer]. Follow Up Care 08/05/2025 11:29:17 With:TAYLOR TAYLOR APRN-GUN EXAMINER Address: [address] [facility] [address] [place] [address]- [phone] When: Unknown [facility] 10-28-2025 Pastoral care Progress note Pastoral Care Note Entered On: 08/09/2025 9:24 EDT Performed On: 08/09/2025 9:22 EDT by Pfahler, Ray Pastoral Care Spiritual Care Visit Initiated by : Emergency Care Attendant Type of Pastoral Visit : Initial visit [...] by Janak Lopez on 08/09/2025 09:22 AM [facility]10-28-2025 Note Discharge Instructions Thank you for allowing [facility] to assist you with your healthcare needs. [...] OV 11/14/2025 11:00 AM EST TAYLOR TAYLOR [facility] Confirmed Follow Up Appointments Follow Up with TAYLOR TAYLOR Where:[address] [place] [address]- [phone] The Following Activity and Diet Have Been [...] about working with a physical therapist or technical trainer to help you get stronger. General instructions Take qmlp-nub-wuzcfgf and prescription medicines only as told by [...] 09/11/2009 Document Revised: 05/05/2019 Document Reviewed: 05/05/2019 [employer]ur Patient Education 2020 [employer] Additional Information VACCINATE! IT SAVES LIVES! Members of the community who have not yet received the COVID-19 vaccine and would like to receive it can visit one of [facility] vaccine clinics. There are many vaccine clinic locations within the [facility]. For locations and available times, please visit [email or web address]/. It is important to note that some COVID mobile vaccine clinics are held outdoors and may be canceled in rainy or stormy conditions. To learn more about pediatric vaccinations (ages 5-11), we invite you to visit the [facility] webpage. https://www.[facility].org/pages/7363-Yysof-Eaxjbvigcot-Cjalwhfxuy-Mrsce-Vdt stions.htmlTo learn more about the COVID-19 vaccine, we invite you to visit the CDC website for a list of frequently asked questions.https://www.cdc.gov/coronavirus/2019-ncov/vaccines/faq.html [facility] Patient Portal Access Instructions: Stay connected with your healthcare team and access your personal medical information anytime with the [facility] Patient Portal. Please follow the directions below to create your [employer] account: 1.Access the email account you provided upon registration to the hospital/physician office.2.Look for an invitation email from [facility].3.Open the email and access the invitation link: AcceptInvitation to [facility].4.Fill in the required magaña to create your account. To access your account, visit OggiFinogi/Yext or scan the QR code above. Click the [place] [employer] labeled Access Patient Portal and then log in with the username [...] who you will allowto register on the [facility] Patient Portal for access to your information. You can also access the [employer] Patient Portal on the [employer]where liv. Simply click on Patient Portal and then log into your account. If you would like to receive a full copy of your medical records, please contact the [facility] Medical Records Department by calling [phone], Friday through Friday between 8 a.m. and [...] Call your local pharmacy or go to [email or web address]/[email or web address] to find one close to you.3.Make use of household items: Use cat litter or old coffee grounds to dispose medications if other options arenot available. Mix your drugs with these household products, seal them in an airtight container andthrow it into the garbage. Call [facility]: [phone] to be sure your drugs can be [...] CHART COPY. Signatures Patient Education Materials Weakness, Xxry-my-Zcsb Medication Leaflets My discharge plan and instructions have been reviewed and explained to me and I,WING LIN understand my current condition and have read and understand these discharge instructions. I have received a written copy of the plan/instructions. If I have questions, I am aware that I should contact my doctor. Patient/Computer Laboratory Technician Signature: Date/Time: Relationship to Patient: Witness Name/Signature: Date/Time: [facility]10-28-2025 Note* Exam Date Time Procedure Performing Provider Status 08/09/25 9:00 AM XR Chest 2 Views KAVYA KOEHLER MD; [facility] (Verified) [id number] ORIGINAL HISTORY: CHF COMPARISON: Previous day FINDINGS: [...] 9:16:33 AM Ordering Provider: SHUKRI DAVID RP [facility]10-27-2025 Note Date of Service 08/08/2025 Chief Complaint Asthenia Subjective 80-year-old female with a significant past medical history of COPD with chronic hypoxic respiratoryfailure requiring home O2 at 4 L nasal cannula at baseline, heart failure with preserved ejection fraction, chronic kidney disease stage IIIb, type 2 diabetes mellitus, stroke, hypertension, hyperlipidemia, anxiety, depression, chronic anemia, former smoker. Patient presented to [facility] ED 2025 with increasing dyspnea, fall. She [...] Patient was medically optimized and discharged to [facility] on 08/05/2025. Patient is on baseline dose of oxygen. Initially lungs were clear to auscultation and diminished. She was noted to have coarse crackles and then fine crackles today. Patient states she is unable to bring up any sputum. Previous imaging reviewed from [facility]. X-ray chest on 08/28 showed subsegmental atelectasis [...] has been consulted. Prior to discharge from [facility] patient was evaluated by speech therapy with [...] may include grammatical and/or spelling errors. CPT: 02328 Time Spent 42 minutes Digitally Signed by SHUKRI DAVID on 08/08/2025 03:34 PM [facility]10-27-2025 Note* Exam Date Time Procedure Performing Provider Status 08/08/25 11:37 AM XR Chest 1 View EFREM RODRIGUEZ MD; [facility] (Verified) [id number] ORIGINAL EXAMINATION: ONE XRAY VIEW OF THE [...] 08/08/2025 1:14:13 PM Ordering Provider: SHUKRI DAVID [facility]10-27-2025 Nurse Progress note Speech therapy consult called. Digitally Signed by Doris Agosto RN on 08/08/2025 11:07 AM [facility]10-27-2025 Pastoral care Progress note Pastoral Care Note Entered On: 08/08/2025 9:43 EDT Performed On: 08/08/2025 9:43 EDT by Janak Lopez [facility] Spiritual Care Intervention : Patient Asleep Janak Lopez - 08/08/2025 9:43 EDT Digitally Signed by Janak Lopez on 08/08/2025 09:43 AM [facility]10-25-2025 Nurse Progress note PT'S FAMILY EXPRESSED THAT THE PT. WAS ALLOWED TO HAVE HONEY THICKENED LIQUIDS AT [facility]. THE MAINTENANCE ASSISTANT AGREED THAT THIS WOULD BE ALLOWED. THIS NURSE PROVIDED COFFEE HONEY THICKENED LIQUIDS TO THE PATIENT AND EXPLAINED THAT SHE SHOULD TAKE SPOONFULS INSTEAD OF SIPS. PT. TOOK SPONNFULS INSTRUCTED. WILL CONTINUE TO MONITOR. Digitally Signed by Bree Uribe RN on 08/06/2025 01:29 PM [facility]10-24-2025 Note Date of Service 08/05/2025 Chief [...] chronic anemia, former smoker, that presented to [facility] emergency department on 2025 with worsening shortness [...] Patient was medically optimized and discharged to [facility] on 08/05/2025. Patient evaluated bedside, she [...] nontoxic in appearance, no acute distress. SKIN: Marcellus, warm, dry. HEAD: Normocephalic, atraumatic. ENT: Pupils [...] she was cleared by speech therapy at [facility] for honeythick liquids by [facility] with staff only on 08/01/2025 essentially for comfort. Will consult speech therapy for further recommendations. Appreciate their input. 5. Achalasia of esophagus As stated above. 6. New onset atrial fibrillation Rates are well-controlled. She denies chest pain, palpitations, or shortness of breath. Echocardiogram at [facility] showed stage I diastolic dysfunction with LVEF [...] Exercise Home/Environment Living situation: Home/Independent. Lives In: [facility] home. Current Home Treatments Oxygen therapy. Financial concerns: No. Spouse Name: ., 02/21/2025 Living situation: Home/Independent., 11/11/2023 Primary Personal Security Specialist: self, lives with elderly . Spouse Name: [...] mRNA (tozinameran) vaccine: 30 unknown unit (12/19/20) tetanus/diphtheria/pertussMUL.ORD!h09812: 0.5 mL (04/12/17) tetanus/diphtheria/pertussMUL.ORD!h62788: 0 unknown unit (10/13/15) Code Status Code Status - Ordered -- 08/05/25 18:03:00 EDT, Full Code, Constant Order Digitally Signed by DUNCAN SADLER on 08/05/2025 09:08 PM [facility]10-24-20[facility] Procedure [facility]10-24-2025 Evaluation + Plan noteExtracted from: Title:History and Physical Author:DUNCAN SADLER Date:08/05/25 1. Asthenia Acute, secondary to prolonged [...] she was cleared by speech therapy at [facility] for honey thick liquids by chad with staff only on 08/01/2025 essentially for comfort. Will consult speech therapy for further recommendations. Appreciate their input. 5. Achalasia of esophagus As stated above. 6. New onset atrial fibrillation Rates are well-controlled. She denies chest pain, palpitations, or shortness of breath. Echocardiogram at [facility] showed stage I diastolic dysfunction with LVEF [...] Appointment Date:11/14/2025 11:00:00 AM Scheduled Provider:TAYLOR TAYLOR Location:[facility] Appointment Type:PC OV Future Scheduled Tests Laboratory* Vitamin B12 Level 11/16/25 * A1C Hemoglobin 11/16/25 * Complete Blood Count 11/16/25 * Lipid Profile 11/16/25 * Albumin/Creatinine Ratio, Random Urine 11/16/25 * Vitamin D Level 11/16/25 * Complete Metabolic Panel 11/16/25 Radiology* CT Low Dose Lung Cancer Screening (LDCT) 05/16/25 [facility] 10-24-2025 [facility]10-23-2025 Procedure [facility]10-16-2025 Procedure [facility]10-16-2025 Radiology Diagnostic study [facility]10-13-2025 Radiology Diagnostic study [facility] 07-24-2025 NoteAcceptable Specimen? Acceptable Specimen(Evaluation not needed) Gram Stain 4+ Gram positive cocci 2+ Gram negative cocco bacillus No White Blood CellsKettering Health DaytonComment on above:Performed By: #### M100.2400, M100.1999 ####[facility] [address] [place], [phone] Radiology Diagnostic study note [facility]10-10-2025 [facility] Radiology Diagnostic study [facility]10-10-2025 [facility]-10-2025 Radiology Diagnostic study [facility]10-10-2025 Radiology Diagnostic study [facility]10-10-2025 History and physical note Author Antoni Argueta [facility] Note Date/Time 2025 9 :08pm [facility] Medical Records Department [address] [place] [address] H&P Exam - Hospitalist 07/22/25 1411 MR#: [id number] Acct: [id number] Name: WING LIN Rep #:[id number] : 1945 80 From: Antoni luciano DO PCP: LILI STOREY Status:ADM IN Location: [place] [address]- 1 HPI - General General Date of Admission: 07/22/25 Date of Service: 07/22/25 Chief Complaint: Worsening shortness of breath HPI Narrative WING LIN, is a 80 F who presented to [facility] on 2025 with worsening shortness of [...] concerns currently. Willbe admitted for further management. [facility] Medical History (Updated 07/22/25 @ 21:08 by [...] mg chewable tablet 81 mg PO DAILY@0800 [facility] health 12/27/16 07/28/23 History bupropion HCl 150 [...] 87.3 H, Lymph % (Auto) 4.4 L, Evans % (Auto) 6.7, Eos % (Auto) 0.4, [...] Clarity Clear, Urine pH 6.0, Ur Specific [place] 1.015, Urine Protein 100 H, Urine Glucose [...] base. Tortuous calcific aortic atherosclerosis. Reading Location: [facility] Assessment & Plan Assessment/Plan (1) Acute on chronic respiratory failure with hypoxia and hypercapnia: PLAN: Plan Patient is a 80-year-old female who presented to [facility] ED on 2025 with worsening shortness of [...] 84 minutes. Charges/Coding Visit Charges Inpatient E&M: 62585 Init Hosp L3 07/22/252107 <Electronically signed by Antoni Argueta DO> Cosigner Signature (if applicable): CC: LILI TAYLOR; Dr. Antoni Argueta DO~ Signed [facility] Work Phone: [phone]) 909-531610-10-2025 Discharge summary Author Dulce Maria Raymond [facility] Note Date/Time July 23, 2025 7 :16am [facility] Medical Records Department [address] [place] [address] Emergency Department Summary 07/22/25 MR#: [id number] Acct: [id number] Name: WING LIN Rep #:[id number] : 1945 80 From: Dulce Maria Raymond [...] improvement and then placed her on CPAP. [facility] Medical History Wears glasses Wears dentures Diabetes [...] 87.3 H Lymph % (Auto) 4.4 L Evans % (Auto) 6.7 Eos % (Auto) 0.4 [...] Clarity Clear Urine pH 6.0 Ur Specific [place] 1.015 Urine Protein 100 H Urine Glucose [...] (Auto) Neut % (Auto) Lymph % (Auto) Evans % (Auto) Eos % (Auto) Baso % [...] Color Urine Clarity Urine pH Ur Specific [place] Urine Protein Urine Glucose (UA) Urine Ketones [...] base. Tortuous calcific aortic atherosclerosis. Reading Location: [facility] Chest CTA 07/22/25 14:28 IMPRESSION: Cardiomegaly and bilateral pleural effusions may be suggestive of CHF. Airspaceopacities in the lower lungs may represent atelectasis or pneumonia. Dilated esophagus with ingested material consistent with gastroesophageal reflux. Follow-up with outpatient barium swallow can be helpful for further evaluation. No evidence of pulmonary embolism. Reading Location: [facility] Soft Tissue Neck CT 07/22/25 14:28 IMPRESSION: [...] Multiple small subcentimeter thyroid nodules/cysts. Reading Location: [facility] Discharge Plan Disposition Disposition: Acute Care Hospital [facility] Discharge Date/Time: 07/22/25 18:31 What to do if you have Problems For any increased pain, shortness of breath, bleeding, nausea or vomiting, chestpain, or any unexpected problems, contact your Primary Care Provider. Call [facility] ([phone]) or report to the closest Emergency Room. Call 911 if necessary. 07/23/25 0716 <Electronically signed by Dulce Maria Raymond MD> Cosigner Signature (if applicable): CC: LILI TAYLOR ~ Signed [facility] Work Phone: [phone]) 785-583610-10-2025 Radiology Diagnostic study [facility]08-11-2025 Note* Exam Date Time Procedure Performing Provider Status 05/23/25 11:38 AM BD Bone Density DEXA Axial Skeleton MEGAN RAINEY MD; Auth (Verified) [id number] ORIGINAL EXAMINATION: BONE DENSITOMETRY 05/23/2025 11:40 am [...] Date: 05/23/2025 2:24:13 PM Ordering Provider: TAYLOR [facility]10-18-2023 Discharge summary [facility] July 30, 2023 1:15pm Note Date/Time July 30, 2023 1 :11pm [facility] Medical Records Department [address] [place] [address] Instructions for Home/Discharge Instructions 07/30/23 1311 MR#: [id number] Acct: [id number] Name: WING LIN Rep #:[id number] : 1945 78 From: Antoni luciano DO [...] MD; Dr. Danilo Oneill DO ~ Signed [facility] Work Phone: 1(756) 634-377010-17-2023 Progress note Author Antoni [facility] July 29, 2023 5:38pm Note Date/Time July 29, 2023 5 :02pm [facility] Medical Records Department [address] [place] [address] Progress Note - Hospitalist 07/29/23 1659 MR#: [id number] Acct: [id number] Name: WING LIN Rep #:[id number] : 1945 78 From: Antoni luciano DO PCP: Dr. Danilo Oneill DO Status:ADM IN Location: [place] [address] Reason for Visit Reason for Visit: Diagnoses [...] (Auto) 87.7 H, Lymph % (Auto) 4.7L, Evans % (Auto) 6.7, Eos % (Auto) 0.1, [...] Sl. Cloudy, Urine pH 5.0, Ur Specific [place] 1.020, Urine Protein 500 H, Urine Glucose [...] 93.1 H, Lymph % (Auto) 2.8 L, Evans % (Auto) 3.3, Eos % (Auto) 0.0, [...] Phong Franco DO at 20:29 EDT , Physical Exam [...] diabetes, hypertension and anxiety/depression who presented to [facility] ED on 07/28/2023 with significant hypoxia. 1. [...] patient to go home on discharge with [facility] home health care. Palliative care consult also [...] 35 minutes. Charges/Coding Visit Charges Inpatient E&M: 83208 Subs Hosp L2 07/29/23 1738 <Electronically signed by Antoni Argueta DO> Cosigner Signature (if applicable): CC: ~ Signed [facility] Work Phone: [phone] 190-248110-17-2023 History and physical note Author Kavin Mcclain [facility] July 29, 2023 10:01am Note Date/Time July 28, 2023 9 :39pm [facility] Medical Records Department [address] [facility] [place] [address] H&P Exam - Hospitalist 07/28/232137 MR#: [id number] Acct: [id number] Name: WING LIN Rep #:[id number] : 1945 78 From: Kavin Mcclain MD PCP: Dr. Danilo Oneill DO Status:ADM IN Location: [facility] [id number]- 1 HPI - General General Date of [...] The emergency department chest x-ray showed infiltrates. [facility] Medical History Anxiety CKD (chronic kidney disease) [...] (Auto) 87.7 H, Lymph % (Auto) 4.7L, Evans % (Auto) 6.7, Eos % (Auto) 0.1, [...] Sl. Cloudy, Urine pH 5.0, Ur Specific [place] 1.020, Urine Protein 500 H, Urine Glucose [...] Phong Franco DO at 20:29 EDT , Assessment & [...] Diabetes mellitus type: type 2 Diabetes mellitus alf insulin use: without halfway use Diabetes mellitus complication status: with hyperglycemia [...] ordered. Give Solu-Medrol by squad. Solu-Medrol IV pczzdd-stu-srbfs ordered. Mucinex ordered Chronic respiratory failure Mildly [...] 70 minutes. Charges/Coding Visit Charges Inpatient E&M: 00308 Init Hosp L3 07/29/23 1001 <Electronically signed by Kavin Mcclain MD> Cosigner Signature (if applicable): CC: Dr. Kavin Mcclain MD; Dr. Danilo Oneill, DO~ Signed [facility] Work Phone: [phone]) 852-688810-16-2023 Discharge summary Author Tacho Moffett [facility] July 28, 2023 9:41pm Note Date/Time July 28, 2023 7 :28pm [facility] Medical Records Department [address] [place] [address] Emergency Department Summary 07/28/23 MR#: [id number] Acct: [id number] Name: WING LIN Rep #:[id number] : 1945 78 From: Carlyn BEAN PCP: Dr. Danilo Oneill, Status:REG ER Location: ED HPI <GENEVA Dueks - Last Filed: 07/28/23 20:46> History of [...] stating she seems more confused than usual. PFS <GENEVA Dukes - Last Filed: 07/28/23 20:46> [facility] Medical History (Updated 07/28/23 @ 21:41 by [...] Oxygen Delivery Method Oxygen Flow Rate (L/min) [facility] <GENEVA Dukes - Last Filed: 07/28/23 20:46> [facility] Narrative Medical decision making narrative: History [...] 87.7 H Lymph % (Auto) 4.7 L Evans % (Auto) 6.7 Eos % (Auto) 0.1 [...] Sl. Cloudy Urine pH 5.0 Ur Specific [place] 1.020 Urine Protein 500 H Urine Glucose [...] (Auto) Neut % (Auto) Lymph % (Auto) Evans % (Auto) Eos % (Auto) Baso % (Auto) Absolute Neuts (auto) Absolute Lymphs (auto) Nucleated RBC % Sodium Potassium Chloride Carbon Dioxide Anion Gap BUN Creatinine Estim Creat Clear Calc Est GFR (MDRD) Af Amer Est GFR (MDRD) Non-Af BUN/Creatinine Ratio Glucose Lactic Acid 2.0 Calcium Troponin I High Sens Urine Color Urine Clarity Urine pH Ur Specific [place] Urine Protein Urine Glucose (UA) Urine Ketones [...] Moffett MD - Last Filed: 07/28/23 21:41> [facility] MDM Narrative Medical decision making narrative: I [...] 87.7 H Lymph % (Auto) 4.7 L Evans % (Auto) 6.7 Eos % (Auto) 0.1 [...] Sl. Cloudy Urine pH 5.0 Ur Specific [place] 1.020 Urine Protein 500 H Urine Glucose [...] MCHC RDW Std Deviation RDW Coeff of Tsesa Plt Count MPV Immature Gran % (Auto) Neut % (Auto) Lymph % (Auto) Evans % (Auto) Eos % (Auto) Baso % (Auto) Absolute Neuts (auto) Absolute Lymphs (auto) Nucleated RBC % Sodium Potassium Chloride Carbon Dioxide Anion Gap BUN Creatinine Estim Creat Clear Calc Est GFR (MDRD) Af Amer Est GFR (MDRD) Non-Af BUN/Creatinine Ratio Glucose Lactic Acid 2.0 Calcium Troponin I High Sens Urine Color Urine Clarity Urine pH Ur Specific [place] Urine Protein Urine Glucose (UA) Urine Ketones [...] your Primary Care Provider. Call [facility] ([phone]) or report to the closest Emergency Room. Call 911 if necessary. 07/28/232045 <Electronically signed by Carlyn BEAN> Cosigner Signature (if applicable): 07/28/232140 <Electronically signed by Tacho Moffett MD> CC: Dr. Danilo Oneill DO ~ Signed [facility] Work Phone: 1(144) 501-849310-16-2023 Discharge summary Author Tacho Moffett [facility] July 28, 2023 9:41pm Note Date/Time July 28, 2023 7 :28pm [facility] Medical Records Department [address] [place] [address] Emergency Department Summary 07/28/23 MR#: [id number] Acct: [id number] Name: WING LIN Rep #:[id number] : 1945 78 From: Carlyn BEAN PCP: Dr. Danilo Oneill, DO Status:REG ER Location: ED HPI <GENEVA [...] <GENEVA Dukes - Last Filed: 07/28/23 20:46> [facility] Medical History (Updated 07/28/23 @ 21:41 by [...] <GENEVA Dukes - Last Filed: 07/28/23 20:46> MDM MDM Narrative Medical decision making narrative: History gathered [...] 87.7 H Lymph % (Auto) 4.7 L Evans % (Auto) 6.7 Eos % (Auto) 0.1 [...] Sl. Cloudy Urine pH 5.0 Ur Specific [place] 1.020 Urine Protein 500 H Urine Glucose [...] (Auto) Neut % (Auto) Lymph % (Auto) Evans % (Auto) Eos % (Auto) Baso % (Auto) Absolute Neuts (auto) Absolute Lymphs (auto) Nucleated RBC % Sodium Potassium Chloride Carbon Dioxide Anion Gap BUN Creatinine Estim Creat Clear Calc Est GFR (MDRD) Af Amer Est GFR (MDRD) Non-Af BUN/Creatinine Ratio Glucose Lactic Acid 2.0 Calcium Troponin I High Sens Urine Color Urine Clarity Urine pH Ur Specific [place] Urine Protein Urine Glucose (UA) Urine Ketones [...] Phong Franco DO at 20:29 EDT , <Dr. Tacho Moffett MD - Last Filed: 07/28/23 21:41> [facility] MDM Narrative Medical decision making narrative: I [...] 87.7 H Lymph % (Auto) 4.7 L Evans % (Auto) 6.7 Eos % (Auto) 0.1 [...] Sl. Cloudy Urine pH 5.0 Ur Specific [place] 1.020 Urine Protein 500 H Urine Glucose [...] (Auto) Neut % (Auto) Lymph % (Auto) Evans % (Auto) Eos % (Auto) Baso % (Auto) Absolute Neuts (auto) Absolute Lymphs (auto) Nucleated RBC % Sodium Potassium Chloride Carbon Dioxide Anion Gap BUN Creatinine Estim Creat Clear Calc Est GFR (MDRD) Af Amer Est GFR (MDRD) Non-Af BUN/Creatinine Ratio Glucose Lactic Acid 2.0 Calcium Troponin I High Sens Urine Color Urine Clarity Urine pH Ur Specific [place] Urine Protein Urine Glucose (UA) Urine Ketones [...] your Primary Care Provider. Call [facility] ([phone]) or report to the closest Emergency Room. Call 911 if necessary. 07/28/232045 <Electronically signed by Carlyn BEAN> Cosigner Signature (if applicable): 07/28/232140 <Electronically signed by Tacho Moffett MD> CC: Dr. Danilo Oneill, DO ~ Signed [facility] Work Phone: Consult note Author Kamron Friend [facility] Note Date/Time July 25, 2025 8 :34am [facility] Medical Records Department [address] [place] [address] Consultation - GI 07/22/251935 MR#: [id number] Acct: [id number] Name: WING LIN Rep #:[id number] : 1945 80 From: Kamron Nguyen DO [...] for infiltrates and can reveal dilated esophagus. [facility] Medical History (Updated 07/22/25 @ 19:39 by [...] mg chewable tablet 81 mg PO DAILY@0800 [facility] t health 12/27/16 07/28/23 History bupropion HCl [...] tab PO Q12H PRN diogo k pain 10/16/23 10/16/23 History mg tablet aripiprazole 10 mg tablet [...] 87.3 H, Lymph % (Auto) 4.4 L, Evans % (Auto) 6.7, Eos % (Auto) 0.4, [...] Clarity Clear, Urine pH 6.0, Ur Specific [place] 1.015, Urine Protein 100 H, Urine Glucose [...] base. Tortuous calcific aortic atherosclerosis. Reading Location[facility] Chest CTA 07/22/25 14:28 IMPRESSION: Cardiomegaly and bilateral pleural effusions may be suggestive of CHF. Airspaceopacities in the lower lungs may represent atelectasis or pneumonia. Dilated esophagus with ingested material consistent with gastroesophageal reflux. Follow-up with outpatient barium swallow can be helpful for further evaluation. No evidence of pulmonary embolism. Reading Location: [id number] Soft Tissue Neck CT 07/22/25 14:28 IMPRESSION: [...] Multiple small subcentimeter thyroid nodules/cysts. Reading Location: [id number] Assessment & Plan Assessment/Plan (1) Gastroesophageal reflux [...] dysphagia persists. Charges/Coding Visit Charges Inpatient E&M: 45019 Init Hosp L3 07/25/25 0834 <Electronically signed by Kamron Friend DO> Cosigner Signature (if applicable): CC: NANCY-Eddie TAYLOR~ Signed [facility] Work Phone: Consult note Author Deandre Nevarez [facility] Note Date/Time July 23, 2025 5 :47am [facility] Medical Records Department [address] [place] [address] Consultation - Recruiting Operations Consultant 07/23/25 0526 MR#: [id number] Acct: [id number] Name: WING LIN Rep #:[id number] : 1945 80 From: Deandre Nevarez MD [...] CHF, CKD, CVA, DM, HTN, HLD, Anxiety/depression. [facility] Medical History Wears glasses Wears dentures Diabetes [...] 10 Mg Tablet PO Not Given QHS REG Bisoprolol Fumarate 5 mg 07/23/25 17:00 Bisoprolol Fumarate 5 Mg Tablet PO [facility] Bupropion HCl 150 mg 07/22/25 22:00 07/23/25 00:12 Bupropion (Sr) 150 Mg Tablet.Sa PO Not Given BID [facility] Chlorhexidine Gluconate 15 ml 07/22/25 22:00 07/22/25 [...] mls @ 15 mls/hr 07/22/25 18:33 IV .[id number] PRN Saline Flush Sodium Chloride 250 mls @ 15 mls/hr 07/22/25 18:33 IV .[id number] PRN Additional IVPB Infusion Piperacillin Sod/Tazobactam 50 [...] Sod Succ 40 Mg/Ml Vial IV Q8 [facility] Montelukast Sodium 10 mg 07/23/25 10:00 Montelukast [...] Venlafaxine Xr 150 Mg Capsule PO DAILY REG Physical Exam Narrative PHYSICAL EXAMINATION General: no [...] 87.3 H, Lymph % (Auto) 4.4 L, Evans % (Auto) 6.7, Eos % (Auto) 0.4, [...] 0.40, AST 55 H, ALT 30, Alkaline Yziaarvacfn326 H, Troponin T High Sens 40 H, NT pro BNP II 5405 H, Total Protein 7.1, Albumin 3.3 L, Globulin 3.9, Albumin/Globulin Ratio 0.8 L 07/22/25 13:09: Urine Color Yellow, Urine Clarity Clear, Urine pH 6.0, Ur Specific [place] 1.015, Urine Protein 100 H, Urine Glucose [...] base. Tortuous calcific aortic atherosclerosis. Reading Location: [facility] Chest CTA 07/22/25 14:28 IMPRESSION: Cardiomegaly and bilateral pleural effusions may be suggestive of CHF. Airspaceopacities in the lower lungs may represent atelectasis or pneumonia. Dilated esophagus with ingested material consistent with gastroesophageal reflux. Follow-up with outpatient barium swallow can be helpful for further evaluation. No evidence of pulmonary embolism. Reading Location: [id number]-[id number]-RY Soft Tissue Neck CT 07/22/25 14:28 IMPRESSION: [...] Multiple small subcentimeter thyroid nodules/cysts. Reading Location: [id number] Chest X-Ray 07/22/25 22:05 IMPRESSION: As above. Reading Location: [id number]-[id number]-AZ Chest X-Ray 07/22/25 23:10 IMPRESSION: Improperly positioned orogastric tube. Reading Location: [id number] Assessment and Plan . Assessment and plan: [...] this encounter was done via Telemedicine 07/23/25 0501 <Electronically signed by Deandre Nevarez MD> Cosigner Signature (if applicable): CC: LILI TAYLOR~ Signed [facility] Work Phone: Consult note Author Santos Leonard [facility] Note Date/Time August 05, 2025 3 :48pm [facility] Medical Records Department [address] [place] [address] Pre-Anesthesia Evaluation 07/29/25 1151 MR#: [id number] Acct: [id number] Name: CARLITOBENJAMINCANDIWING Rep #:[id number] : 1945 80 From: Santos Leonard MD PCP: LILI STOREY Status:ADM IN Y Race: C Location: ICU ICU03 -1 ASA Classification* ASA Classification ASA Classification: [...] Procedure(s): peg Anesthesia History Anesthesia History - grinder operator external tool: Anesthesia History - grinder operator external tool Hx Hospitalization Yes: 02/202405/25/24 09:56 Any Problems [...] take am of surgery PONV PONV - grinder operator external tool: PONV - grinder operator external tool Female HX of Motion Sickness HX of N/V After Surgery Non-Smoker Duration of Surgery greater than 60 minutes Number of Risk Factors PONV Score Height & Weight Height & Weight: Anesthesia: Height & Weight Height 5 ft 7 in 07/29/25 10:16 Weight: 86.5 kg 07/29/25 10:16 Body Mass Index (BMI) 29.8 07/29/25 05:57 Respiratory Assessment Respiratory Assessment - grinder operator external tool: Respiratory Tract Infection Hx - grinder operator external tool Hx Respiratory Tract Infection No 05/25/24 09:56 STOP Sleep Apnea STOP Sleep Apnea - grinder operator external tool: STOP Sleep Apnea - grinder operator external tool Hx Hypertension Yes: CONTROLLED WITH MED 07/27/25 [...] Tobacco Use History Tobacco Use History - grinder operator external tool: Tobacco Use History - grinder operator external tool Tobacco Use Non-smoker 02/27/21 07:36 Smoking Status Former smoker 07/22/25 18:33 Hx Tobacco Use No 07/22/25 18:33 Years Smoking Packs Smoked per Day Smoking Cessation Date was No - quit smoking greater 07/22/25 18:33 within the last 15 years than 15 years ago Hx Smoking Cessation Date 10/13/12 07/22/25 18:33 Hx Smoking Cessation No 07/22/25 18:33 Counseling Hematologic Medial History Hematologic Hx - grinder operator external tool: Hematologic Medical Hx - documentation analyst Hx of Blood Transfusion No 07/22/25 18:33 [...] confused, unrespo /Reproduction History /Reproductive History - grinder operator external tool: /Reproductive Hx- grinder operator external tool Hx Now Gestational Age (in weeks): EDC: [...] 200 Mg Tablet PO Not Given BID REG Aripiprazole 10 mg 07/23/25 10:00 07/29/25 10:27 Aripiprazole 10 Mg Tablet PO Not Given DAILY REG Protocol Atorvastatin Calcium 10 mg 07/22/25 22:00 07/28/25 21:25 Atorvastatin Calcium 10 Mg Tablet PO Not Given QHS REG Bupropion HCl 150 mg 07/22/25 22:00 07/29/25 08:51 Bupropion (Sr) 150 Mg Tablet.Sa PO Not Given BID REG Chlorhexidine Gluconate 1 each 07/25/25 10:00 07/29/25 10:27 Chlorhexidine Gluc 2% Cloth 1 Each [place] TOPICAL 1 each DAILY REG Administration Cholecalciferol 125 mcg 07/24/25 10:00 07/29/25 08:51 Cholecalciferol (Vit D3) 125 Mcg Capsule (5,000 Units) PO Not Given DAILY REG Cyanocobalamin 1,000 mcg 07/23/25 10:00 07/29/25 08:51 Cyanocobalamin 500 Mcg Tablet PO Not Given DAILY REG Fentanyl Citrate 50 mcg 07/22/25 21:59 Fentanyl 100 Mcg/2 Ml Ampul IV Q2H PRN PRN Pain >/= 4/10 or CPOT>/= 3/8 Ferrous Sulfate 325 mg 07/23/25 12:00 07/29/25 11:22 Ferrous Sulfate 325 Mg Tablet PO Not Given 1200,1700 REG Glucagon 1 mg 07/22/25 21:04 Glucagon 1 [...] mls/hr 07/22/25 18:33 07/28/25 06:13 IV Infused .[id number] PRN Infusion Saline Flush Sodium Chloride 250 mls @ 15 mls/hr 07/22/25 18:33 IV .[id number] PRN Additional IVPB Infusion Dextrose 250 mls [...] 07/27/25 14:05 07/29/25 11:29 IV 0 mls/hr .[id number] REG Infusion Sodium Chloride 1,000 mls @ 15 mls/hr 07/29/25 11:40 07/29/25 11:50 IV 15 mls/hr .Q48H REG Administration Insulin Human Lispro 0 unit 07/23/25 12:00 07/29/25 11:25 Insulin Lispro 100 Unit/Ml Insuln.Pen SC 3 u Q6 REG Administration Protocol Ipratropium [place] 0.5 mg 07/24/25 12:00 07/29/25 06:52 Ipratropium [...] [facility] Nystatin 1 applic 07/22/25 22:00 07/29/25 08:52 [...] 150 Mg Capsule PO Not Given DAILY REG PFSH Medical History Wears glasses Wears dentures Diabetes [...] diabetes 4 Unknown History OXYGEN - Supplemental ([facility] hypoxia 07/23/25 Unknown Hi story INFORMATIONAL USE [...] MD Cosigner Signature: Date CC: ~ Signed [facility] Work Phone: Consult note Author Darwin Amador [facility] Note Date/Time August 05, 2025 3 :48pm [facility] Medical Records Department [facility] [place] [address] Anesthesia Postop Eval I 07/29/25 1238 MR#: [id number] Acct: [id number] Name: WING LIN Rep #:[id number] : 1945 80 From: Darwin ASENCIO PCP: LILI STOREY Status:ADM IN Y Race: C Location: ICU ICU Anesthesia: Postop Eval I Current Vital Signs [...] by Darwin Amador CRNA> Date _ Darwin Amador CRNA Cosigner Signature: Date CC: ~ Signed [facility] Work Phone: Consult note Author Darwin [facility] Note Date/Time August 05, 2025 3 :48pm [facility] Medical Records Department [address] [place] [address] Anesthesia Postop Eval II 07/29/25 1254 MR#: [id number] Acct: [id number] Name: WING LIN Rep #:[id number] : 1945 80 From: Darwin ASENCIO PCP: LILI STOREY Status:ADM IN Y Race: C Location: ICU ICU Anesthesia Postop Eval I Sum Postop Eval Completion status Anesthesia document: Postop Eval 1 completed: Yes Anesthesia Postop Eval I Summary Anesthesia Postop Eval I Summary: Anesthesia Postop Eval I: Assessment Summary Airway patent Yes 07/29/25 12:38 RAISE DRILL OPERATOR.MDOT Spontaneous unlabored Yes 07/29/25 12:38 RAISE DRILL OPERATOR.MDOT respirations Mental status Awake,Calm 07/29/25 12:38 RAISE DRILL OPERATOR.MDOT nausea No 07/29/25 12:38 RAISE DRILL OPERATOR.MDOT Vomiting No 07/29/25 12:38 RAISE DRILL OPERATOR.MDOT Anesthesia Postop Eval I: Fluid Summary Crystalloid volume administer 400 07/29/25 12:38 RAISE DRILL OPERATOR.MDOT (ml) Colloids volume administered ( ml) Blood Product volume administered (ml) Total IV fluid infused 400 07/29/25 12:38 RAISE DRILL OPERATOR.MDOT Anesthesia Postop Eval I: Summary Notes Anesthesia Complication No 07/29/25 12:38 RAISE DRILL OPERATOR.MDOT Anesthesia Complication Comment: Post-operative progress note Anesthesia: Postop Eval II Evaluation Mental status: Awake and Calm Pain Level: 0 nausea: No Vomiting: No Complications Anesthesia Complication: No 07/29/25 1254 <Electronically signed by Darwin Amador CRNA> Date _ Darwin Amador CRNA Cosigner Signature: Date CC: ~ Signed [facility] Work Phone: Consult note Author Santos Leonard [facility] Note Date/Time August 05, 2025 3 :48pm [facility] Medical Records Department [address] [place] [address] Anesthesia Postop Eval II 07/29/25 1316 MR#: [id number] Acct: [id number] Name: ORVILLEWING MANRIQUEZ Rep #:[id number] : 1945 80 From: Santos Leonard MD PCP: LILI STOREY Status:ADM IN Y Race: C Location: ICU ICU03 -1 Anesthesia Postop Eval I Sum Postop Eval Completion status Anesthesia document: Postop Eval 1 completed: Yes Anesthesia Postop Eval I Summary Anesthesia Postop Eval I Summary: Anesthesia Postop Eval I: Assessment Summary Airway patent Yes 07/29/25 12:38 RAISE DRILL OPERATOR.MDOT Spontaneous unlabored Yes 07/29/25 12:38 RAISE DRILL OPERATOR.MDOT respirations Mental status Awake,Calm 07/29/25 12:54 RAISE DRILL OPERATOR.MDOT nausea No 07/29/25 12:54 RAISE DRILL OPERATOR.MDOT Vomiting No 07/29/25 12:54 RAISE DRILL OPERATOR.MDOT Anesthesia Postop Eval I: Fluid Summary Crystalloid volume administer 400 07/29/25 12:38 RAISE DRILL OPERATOR.MDOT (ml) Colloids volume administered ( ml) Blood Product volume administered (ml) Total IV fluid infused 400 07/29/25 12:38 RAISE DRILL OPERATOR.MDOT Anesthesia Postop Eval I: Summary Notes Anesthesia Complication No 07/29/25 12:54 RAISE DRILL OPERATOR.MDOT Anesthesia Complication Comment: Post-operative progress note Anesthesia: Postop Eval II Evaluation Mental status: Awake Pain Level: 0 nausea: No Vomiting: No 07/29/25 1316 <Electronically signed by Santos Leonard MD> Date _ Santos Leonard MD Cosigner Signature: Date CC: ~ Signed [facility] Work Phone: Consult note Author Leonidas Amezcua [facility] Note Date/Time August 05, 2025 3 :48pm [facility] Medical Records Department [address] [place] [address] Counseling Note - Pharmacy 08/05/25 1114 MR#: [id number] Acct: [id number] Name: WING LIN Rep #:[id number] : 1945 80 From: Leonidas Amezcua PCP: LILI STOREY Status:ADM IN Y Location: [place] [address]- 1 Pharmacy [place] Med Reconciliation Pharmacy Service has performed discharge [...] PO BID diabetes 05/11/24 OXYGEN - Supplemental ([facility] INFORMATIONAL USE ONLY) hypoxia 07/23/25 cholecalciferol (vitamin [...] 08/05/25 08/05/25 1114 <Electronically signed by Leonidas carvalho> Date _ Leonidas Gottlieb Signature (if applicable): Date ___ CC: ~ Signed [facility] Work Phone: Discharge summary Author Antoni [facility] Note Date/Time August 05, 2025 1 0:18am [facility] Medical Records Department [address] [place] [address] Transfer to [facility] MR#: [id number] Acct: [id number] Name: WING LIN Rep #:[id number] : 1945 80 From: Antoni luciano DO PCP: LILI STOREY Status:ADM IN Certification of patient admission REQUIRED AT TIME OF ADMISSION. I CERTIFY THAT POST-HOSPITAL ECF SERVICES ARE REQUIRED TO BE GIVEN ON AN IN-PATIENT BASIS BECAUSE OF THE ABOVE NAMED PATIENT'S NEED FOR CUSTODIAL CARE ON A CONTINUING BASIS FOR THE CONDITION(S) FOR WHICH HE/SHE WAS RECEIVING IN-PATIENT HOSPITAL SERVICES PRIOR TO HIS/HER TRANSFER TO THE F. 08/05/25 1018<Electronically signed by Antoni Argueta DO> Diet Diet Order/Speech Therapy: INPATIENT Hospital Diet / Speech Therapy Order(s) 08/04/25 14:12 Diet: Full Liquid Liquid Consistency:: [place]/Mildly Thick Speech Therapy Comments: Direct supervision for [...] is a 80-year-old female who presented to [facility] ED on 2025 with worsening shortness of breath. Hospital course as noted below. Patient discharged to SNF in stable condition on 08/05. 1. 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 Recruiting Operations Consultant followed. On 4 L nasal cannula at [...] advanced diet as tolerated to cardiac per PANEL FITTER recommendations. 2. Increase goal rate of Jevity [...] DAILY Qty: 30 1RF OXYGEN - Supplemental ([facility] INFORMATIONAL USE ONLY) Patient Comments: per CM [...] in before D/C Order can be placed): Intermediate Facility 08/05/25 1018 <Electronically signed by Antoni Argueta DO> Cosigner Signature (if applicable): CC: LILI Jeffries; LILI TAYLOR; MEJIAC Karlee Rodriguez; Dr. Antoni Argueta DO; Dr. Jonel Lorenzo MD; Dr. Ying Jay DO; Dr. Gena Porter MD; Dr. Bulmaro Gandara MD; GENEVA Stock; Kamron Nguyen, ~ [facility] Work Phone: Discharge summary Author Antoni Argueta [facility] Note Date/Time August 05, 2025 2 :02pm [facility] Medical Records Department [address] [place] [address] Discharge Summary 08/05/25 1020 MR#: [id number] Acct: [id number] Name: WING LIN Rep #:[id number] : 1945 80 From: Antoni Menjivar rosalba BURROWS PCP: LILI STOREY Status:ADM IN [facility] Date of Admission: 07/22/25 Date of Discharge: 08/05/25 Primary Care Physician: LILI STOREY Consultations 07/22/25 18:32 Consult: Gastroenterology Routine Consulting Provider: [facility] Reason for Consult: dysphagia, fluid/air-filled dilation of esophagus on CT, achalasia? EMERGENT Consult: No MD Notified: Yes Date Notified: 07/22/25 Time Notified: 18:35 Method of Notification: Text 07/22/25 22:10 Consult: Recruiting Operations Consultant / Pulmonary Medicine Routine Consulting Provider: Intensivists/Pulmonary Med Reason for Consult: acute respiratory failure EMERGENT Consult: No MD Notified: Yes Date Notified: 07/22/25 Time Notified: [...] PO BID diabetes 05/11/24 OXYGEN - Supplemental ([facility] INFORMATIONAL USE ONLY) hypoxia 07/23/25 cholecalciferol (vitamin [...] is a 80-year-old female who presented to [facility] ED on 2025 with worsening shortness of breath. Hospital course as noted below. Patient discharged to SNF in stable condition on 08/05. 1. 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 Recruiting Operations Consultant followed. On 4 L nasal cannula at [...] DAILY Qty: 30 1RF OXYGEN - Supplemental ([facility] INFORMATIONAL USE ONLY) Patient Comments: per CM noted, AYDE through [facility], current orders are 4 l/m [...] Danilo Oneill DO [Non-Staff, Family Practice] TAYLOR TAYLOR, AUTO HAULER-C [Primary Care Provider, Family Practice] Disposition Disposition (needs filled in before D/C Order can be placed): Intermediate Facility Charges/Coding Visit Charges Inpatient E&M: 25868 Disch Hosp >30min 08/05/25 1402 <Electronically signed by Antoni Argueta DO> Cosigner Signature (if applicable): CC: AUTO HAULERNirmala TAYLOR; Dr. Antoni Argueta DO~ Signed [facility] Work Phone: evaluation + Plan note Future Appointments Appointment Date:06/30/2024 01:00:00 PM Scheduled Provider:TAYLOR TAYLOR Location:[facility] Appointment Type: OV Appointment Date:08/24/2024 01:30:00 PM Scheduled Provider:DANILO ONEILL DO Location:[facility] Appointment Type: OV [facility] Evaluation + Plan note Future Appointments [...] Low Dose Lung Cancer Screening (LDCT) 05/16/25 [facility] evaluation note* Diagnosis Onset Date Resolution Status Ankle pain, left acute Closed left trimalleolar fracture acute Diabetes mellitus chronic [facility] Work Phone: evaluation note* Diagnosis Onset Date Resolution Status Ankle pain, left acute Closed left trimalleolar fracture acute Hyperkalemia acute Trimalleolar fracture of ankle, closed acute Diabetes mellitus chronic Hypertension chronic [facility] Work Phone: Evaluation note* Diagnosis Onset Date Resolution Status Chronic kidney disease, stage 3b acute Debility acute Depression acute Diabetes mellitus acute [id number] acute Gastroesophageal reflux disease acute Hyperlipidemia acute Insomnia acute Iron deficiency anemia acute Stroke acute Vitamin B12 deficiency acute Chronic obstructive pulmonary disease chronic Acute kidney injury resolved Ankle pain, left resolved Hyperkalemia resolved Trimalleolar fracture of ankle, closed resolved [facility] Work Phone: Evaluation noteNo assessment information available [facility] Work Phone: Evaluation note* Diagnosis Onset Date Resolution Status Acute kidney injury acute Community acquired pneumonia acute Diabetes mellitus acute Hypoxia acute Sepsis acute Acute exacerbation of chroni c obstructive pulmonary disease chronic [facility] Work Phone: Evaluation note* Diagnosis Onset Date Resolution Status Hypoxia acute Acute exacerbation of chroni c obstructive pulmonary disease resolved Acute kidney injury resolved Community acquired pneumonia resolved Sepsis resolved [facility] Work Phone: Evaluation note* Diagnosis Onset Date Resolution Status Admit Date Achalasia acute 2025 5:16pm Dysphagia acute 2025 5:16pm Esophageal dysmotility acute Oc tob2024 5:16pm Gastroesophageal reflux disease acut e 2025 5:16pm Paroxysmal atrial fibrillati on with RVR acute July 22 5:16pm Stroke acute 2025 5:16pm Acute on chronic respiratory failure with hypoxia and hypercapnia chronic July 22 5:16pm [facility] Work Phone: Hospital course Narrative No data available for this section [facility] Work Phone: Hospital Discharge instructions Additional Instructions Rest, ice, elevate your leg to decrease swelling. You can keep it compressed with Jorge Luis bandage. Follow-up with your orthopedic doctor and take your pain meds at home.[facility] Work Phone: Hospital Discharge instructions No data available for this section [facility] Hospital Discharge instructionsAdditional Instructions Date of Discharge: [facility] Work Phone: Progress note No data available for this section [facility] Procvwfc note Author Antoni Argueta [facility] Note Date/Time 2025 1 0:10pm [facility] Medical Records Department [address] [place] [address] Progress Note - Hospitalist 07/22/252204 MR#: [id number] Acct: [id number] Name: WING LIN Rep #:[id number] : 1945 80 From: Antoni luciano DO [...] Cosigner Signature (if applicable): CC: ~ Signed [facility] Work Phone: Prodcuab note Author Doris Jeffries [facility] Note Date/Time 2025 1 1:35pm [facility] Medical Records Department [address] [place] [address] Progress Note - Hospitalist 07/22/252330 MR#: [id number] Acct: [id number] Name: VERONACANDIWING Rep #:[id number] : 1945 80 From: Doris Lagos PNirmala PCP: LILI STOREY Status:ADM IN Location: ICU [...] this time. 07/22/252334 <Electronically signed by Doris PEARSON> Cosigner Signature (if applicable): CC: ~ Signed [facility] Work Phone: Progress note Author Ying Jay [facility] Note Date/Time July 23, 2025 1 1:24am [facility] Medical Records Department [address] [place] [address] Progress Note - Hospitalist 07/23/25 0652 MR#: [id number] Acct: [id number] Name: DELIAWING Rep #:[id number] : 1945 80 From: Ying Jay DO [...] 87.3 H, Lymph % (Auto) 4.4 L, Evans % (Auto) 6.7, Eos % (Auto) 0.4, [...] 0.40, AST 55 H, ALT 30, Alkaline Liaaggdmdmp437 H, Troponin T High Sens 40 H, NT pro BNP II 5405 H, Total Protein 7.1, Albumin 3.3 L, Globulin 3.9, Albumin/Globulin Ratio 0.8 L 07/22/25 13:09: Urine Color Yellow, Urine Clarity Clear, Urine pH 6.0, Ur Specific [place] 1.015, Urine Protein 100 H, Urine Glucose [...] base. Tortuous calcific aortic atherosclerosis. Reading Location: [facility] Chest CTA 07/22/25 14:28 IMPRESSION: Cardiomegaly and bilateral pleural effusions may be suggestive of CHF. Airspaceopacities in the lower lungs may represent atelectasis or pneumonia. Dilated esophagus with ingested material consistent with gastroesophageal reflux. Follow-up with outpatient barium swallow can be helpful for further evaluation. No evidence of pulmonary embolism. Reading Location: UIX-LPEAO-DP Soft Tissue Neck CT 07/22/25 14:28 IMPRESSION: [...] Multiple small subcentimeter thyroid nodules/cysts. Reading Location: [id number]-TNYOATR-JT Chest X-Ray 07/22/25 22:05 IMPRESSION: As above. Reading Location: [id number] Chest X-Ray 07/22/25 23:10 IMPRESSION: Improperly positioned orogastric tube. Reading Location: [id number] Physical Exam Const no apparent distress Constitutional [...] steroid use so we will add basal tetgbex59 units - continue sliding scale but increase to high-dose sliding scale - Accu-Cheks and SSI ordered every 6 for now Depression/anxiety - Continue home medications History of tobacco abuse - Remote - Continue ongoing cessation DVT prophylaxis - Continue subcu heparin CODE STATUS - Full Code Charges/Coding Visit Charges Inpatient E&M: 99590 Subs Hosp L2 07/23/25 1124 <Electronically signed by Ying Jay DO> Cosigner Signature (if applicable): CC: ~ Signed [facility] Work Phone: Progress note Author Georges Duque [facility] Note Date/Time July 23, 2025 1 :29pm [facility] Medical Records Department [address] [place] [address] Progress Note - Recruiting Operations Consultant 07/23/25 1327 MR#: [id number] Acct: [id number] Name: WING LIN Rep #:[id number] : 1945 80 From: Georges Arcos PCP: [...] 10 Mg Tablet PO Not Given QHS REG Bisoprolol Fumarate 5 mg 07/23/25 17:00 Bisoprolol Fumarate 5 Mg Tablet PO [facility] Bupropion HCl 150 mg 07/22/25 22:00 07/23/25 10:22 Bupropion (Sr) 150 Mg Tablet.Sa PO Not Given BID [facility] Chlorhexidine Gluconate 15 ml 07/22/25 22:00 07/23/25 08:27 Chlorhexidine 15 Ml PO 15 ml BID [facility] Administration Cholecalciferol 125 mcg 07/24/25 10:00 Cholecalciferol [...] PO Not Given 1200,1700 [facility] Furosemide 40 mg 07/22/25 18:32 07/23/25 10:23 [...] mls @ 15 mls/hr 07/22/25 18:33 IV .[id number] PRN Saline Flush Sodium Chloride 250 mls @ 15 mls/hr 07/22/25 18:33 IV .[id number] PRN Additional IVPB Infusion Piperacillin Sod/Tazobactam 50 [...] 100 Unit/Ml Pen SC 15 unit DAILY REG Administration Insulin Human Lispro 0 unit 07/23/25 12:00 07/23/25 12:21 Insulin Lispro 100 Unit/Ml Insuln.Pen SC Not Given Q6 REG Protocol Losartan Potassium 50 mg 07/23/25 10:00 07/23/25 10:20 Losartan Potassium 50 Mg Tablet PO Not Given DAILY REG Protocol Methylprednisolone Sodium Succinate 40 mg 07/23/25 06:00 07/23/25 06:13 Methylprednisolone Sod Succ 40 Mg/Ml Vial IV 40 mg Q8 REG Administration Montelukast Sodium 10 mg 07/23/25 10:00 [...] Clarity Clear, Urine pH 6.0, Ur Specific [place] 1.015, Urine Protein 100 H, Urine Glucose [...] No evidence of pulmonary embolism. Reading Location: [facility] Soft Tissue Neck CT 07/22/25 14:28 IMPRESSION: [...] Multiple small subcentimeter thyroid nodules/cysts. Reading Location: [facility] Echocardiogram 07/22/25 17:21 Interpretation Summary Technically difficult study. Mild concentric left ventricular hypertrophy. The left ventricular ejection fraction is 70 %. Stage 1 diastolic dysfunction. The left atrium is moderately enlarged. Mild mitral annular calcification. Ordering Physician: Antoni Argueta Performed By: Philippe Dias RCS Chest X-Ray 07/22/25 22:05 IMPRESSION: As above. Reading Location: [facility] Chest X-Ray 07/22/25 23:10 IMPRESSION: Improperly positioned orogastric tube. Reading Location: [address] Assessment and Plan . Assessment and [...] Cosigner Signature (if applicable): CC: ~ Signed [facility] Work Phone: Progress note Author Ying Jay [facility] Note Date/Time July 24, 2025 1 2:19pm [facility] Medical Records Department [address] [place] [address] Progress Note - Hospitalist 07/24/2555 MR#: [id number] Acct: [id number] Name: WING LIN Rep #:[id number] : 1945 80 From: Ying Jay DO [...] 674.04 171.8 / 171.8 Output Total 2049 350 / 350 Balance 419.85 / [...] 94.3 H, Lymph % (Auto) 2.0 L, Evans % (Auto) 2.5, Eos % (Auto) 0.0, [...] Bilateral renal atrophy. No hydronephrosis. Reading Location: [facility] Physical Exam Const no apparent distress and [...] ultimately will need to be transition to [facility] -Hemoglobin is stable but will monitor - [...] Full Code Charges/Coding Visit Charges Inpatient E&M: 97814 Subs Hosp L3 07/24/25 1219 <Electronically signed by Ying Jay DO> Cosigner Signature (if applicable): CC: ~ Signed [facility] Work Phone: Progress note Author Georges Duque [facility] Note Date/Time July 24, 2025 1 2:05pm [facility] Medical Records Department [address] [place] [address] Progress Note - Recruiting Operations Consultant 07/24/25 1033 MR#: [id number] Acct: [id number] Name: CARLITOBENJAMINCANIDWING Rep #:[id number] : 1945 80 From: Georges Arcos PCP: [...] / 674.04 327.0 / 327.0 Output Total 925 / 2050 1125 / 2050 350 / 350 Balance -527.16 / -1375.96 [...] REG Administration Aripiprazole 10 mg 07/23/25 10:00 07/24/25 08:56 Aripiprazole 10 Mg Tablet PO Not Given DAILY REG Protocol Aspirin 81 mg 07/23/25 08:00 07/24/25 [...] Chlorhexidine 15 Ml PO 15 ml BID [facility] Administration Cholecalciferol 125 mcg 07/24/25 10:00 07/24/25 [...] mls @ 15 mls/hr 07/22/25 18:33 IV .[id number] PRN Saline Flush Sodium Chloride 250 mls @ 15 mls/hr 07/22/25 18:33 IV .[id number] PRN Additional IVPB Infusion Piperacillin Sod/Tazobactam 50 [...] SC 3 u Q6 REG Administration Protocol Losartan Potassium 50 mg 07/23/25 10:00 07/24/25 08:56 Losartan Potassium 50 Mg Tablet PO Not Given DAILY REG Protocol Methylprednisolone Sodium Succinate 40 mg 07/23/25 06:00 07/24/25 05:55 Methylprednisolone Sod Succ 40 Mg/Ml Vial IV 40 mg Q8 REG Administration Montelukast Sodium 10 mg 07/23/25 10:00 [...] 94.3 H, Lymph % (Auto) 2.0 L, Evans % (Auto) 2.5, Eos % (Auto) 0.0, [...] Bilateral renal atrophy. No hydronephrosis. Reading Location: [facility] Assessment and Plan . Assessment and plan: [...] Cosigner Signature (if applicable): CC: ~ Signed [facility] Work Phone: Progress note Author William Chavez [facility] Note Date/Time July 25, 2025 1 0:26am [facility] Medical Records Department [address] [place] [address] Progress Note - Recruiting Operations Consultant 07/25/25 0728 MR#: [id number] Acct: [id number] Name: CARLITOBENJAMINCANDIWING Rep #:[id number] : 1945 80 From: William Chavez DO [...] 23:59 23:59 Intake Total 656.64 / 674.04 2048.19 / 2065.59 428.14 / 428.14 Output Total 2049 / 2049 735 / 735 700 / 700 [...] (Auto) 94.8 H, Lymph % (Auto) 2.2L, Evans % (Auto) 2.2, Eos % (Auto) 0.0, [...] 92.5 H, Lymph % (Auto) 3.5 L, Evans % (Auto) 2.4, Eos % (Auto) 0.0, [...] vascular congestion and congestive changes. Reading Location[facility] Physical Exam Const Constitutional Narrative: Intubated, sedated [...] sedated on vent Charges/Coding Procedures Hospitalists Procedures: 60506 Critical Care 1st Hr 07/25/25 1026 <Electronically signed by William Chavez DO> Cosigner Signature (if applicable): CC: ~ Signed [facility] Work Phone: Progress note Author Jnoel Lorenzo [facility] Note Date/Time July 25, 2025 9 :32am [facility] Medical Records Department [address] [place] [address] [place] [address] Progress Note - Hospitalist 07/25/25 0803 MR#: [id number] Acct: [id number] Name: WING LIN Rep #:[id number] : 1945 80 From: Jonel Lorenzo MD [...] 23:59 23:59 Intake Total 656.64 / 674.04 2048.19 / 2065.59 428.14 / 428.14 Output Total 2049 / 2049 735 / 735 700 / 700 [...] (Auto) 94.8 H, Lymph % (Auto) 2.2L, Evans % (Auto) 2.2, Eos % (Auto) 0.0, [...] 92.5 H, Lymph % (Auto) 3.5 L, Evans % (Auto) 2.4, Eos % (Auto) 0.0, [...] vascular congestion and congestive changes. Reading Location: [facility] Physical Exam Narrative GENERAL: Sedated on the [...] 55 Minutes Charges/Coding Visit Charges Inpatient E&M: 22997 Subs Hosp L3 07/25/25 0932 <Electronically signed by Jonel Lorenzo MD> Cosigner Signature (if applicable): CC: ~ Signed [facility] Work Phone: Progress note Author Kamron Nguyen [facility] Note Date/Time July 25, 2025 5 :28pm [facility] Medical Records Department [address] [place] [address] Progress Note 07/25/25 1724 MR#: [id number] Acct: [id number] Name: WING LIN Rep #:[id number] : 1945 80 From: Kamron Nguyen DO [...] * Continue current ventilator settings as per waste picker. 2. Gastroenterology: * Upper Endoscopy:?Scheduled for tomorrow to determine the cause of the fluid- filled esophagus and rule out obstruction, motility disorders, or mass. 3. Cardiology/Hematology: * Heparin Management:?Hold heparin drip 6 hours before the procedure, per protocol for intravenous unfractionated heparin. * Restart heparin drip post-procedure, as directed by the cardiology service, once hemostasis is ensured. Visit Charges Inpatient E&M: 80340 Subs Hosp 07/25/25 5628 <Electronically signed by Kamron Nguyen DO> Kamron Nguyen DO Cosigner Signature (if applicable): CC: ~ Signed [facility] Work Phone: Progress note Author Jonel Haddadbharat [facility] Note Date/Time July 26, 2025 9 :04am [facility] Medical Records Department [address] [place] [address] Progress Note - Hospitalist 07/26/25 0749 MR#: [id number] Acct: [id number] Name: WING LIN Rep #:[id number] : 1945 80 From: Jonel Lorenzo MD PCP: TAYLOR TAYLOR AUTO HAULERNirmala Status:ADM IN Location: ICU ICU03-1 Reason for [...] 50 Minutes Charges/Coding Visit Charges Inpatient E&M: 19560 Subs Hosp L3 07/26/25 0904 <Electronically signed by Jonel Lorenzo MD> Cosigner Signature (if applicable): CC: ~ Signed [facility] Work Phone: Progress note Author William Chavez [facility] Note Date/Time July 26, 2025 1 0:09am [facility] Medical Records Department [address] [place] [address] Progress Note - Recruiting Operations Consultant 07/26/25 0758 MR#: [id number] Acct: [id number] Name: WING LIN Rep #:[id number] : 1945 80 From: William Chavez DO [...] Location: [facility] Physical Exam Const Constitutional Narrative: Intubated, sedated [...] sedated on vent Charges/Coding Procedures Hospitalists Procedures: 65924 Critical Care 1st Hr 07/26/25 1009 <Electronically signed by William Chavez DO> Cosigner Signature (if applicable): CC: ~ Signed [facility] Work Phone: Progress note Author Jonel Lorenzo [facility] Note Date/Time July 27, 2025 7 :57am [facility] Medical Records Department [address] [place] [address] Progress Note - Hospitalist 07/27/25721 MR#: [id number] Acct: [id number] Name: WING LIN Rep #:[id number] : 1945 80 From: Jonel Lorenzo MD [...] 52 Minutes Charges/Coding Visit Charges Inpatient E&M: 86665 Subs Hosp L3 07/27/25 0757 <Electronically signed by Jonel Lorenzo MD> Cosigner Signature (if applicable): CC: ~ Signed [facility] Work Phone: Progress note Author William Chavez [facility] Note Date/Time July 27, 2025 8 :58am [facility] Medical Records Department [address] [place], [place] [address] [address] Progress Note - Recruiting Operations Consultant 07/27/25 0727 MR#: [id number] Acct: [id number] Name: WING LIN Rep #:[id number] : 1945 80 From: William Chavez DO [...] patient tolerated endoscopic evaluation yesterday without issue. Jaimeemains in atrial fibrillation with RVR. The patient [...] vascular congestion and congestive changes. Reading Location: [facility] Physical Exam Const Constitutional Narrative: Currently tolerating [...] simple commands appropriately. Charges/Coding Procedures Hospitalists Procedures: 92704 Critical Care 1st Hr 07/27/25 0858 <Electronically signed by William Chavez DO> Cosigner Signature (if applicable): CC: ~ Signed [facility] Work Phone: Progress note Author Doris Jeffries [facility] Note Date/Time July 28, 2025 1 2:13am [facility] Medical Records Department [address] [place] [address] Progress Note - Hospitalist 07/27/251919 MR#: [id number] Acct: [id number] Name: WING LIN Rep #:[id number] : 1945 80 From: Doris Lagos P-C PCP: LILI STOREY Status:ADM IN Location: ICU ICU03-1 Hospitalist Note Due to increased incidences of hypoglycemia, changed fingerstick glucometer checks to q4h while strict NPO. Continue D5 1/2NS for IVF. 07/28/25 0013 <Electronically signed by Doris PEARSON> Cosigner Signature (if applicable): CC: ~ Signed [facility] Work Phone: Progress note Author Jonel Lorenzo [facility] Note Date/Time July 28, 2025 9 :16am [facility] Medical Records Department [address] [place] [address] Progress Note - Hospitalist 07/28/25 0714 MR#: [id number] Acct: [id number] Name: WING LIN Rep #:[id number] : 1945 80 From: Jonel Lorenzo MD [...] 50 Minutes Charges/Coding Visit Charges Inpatient E&M: 58468 Subs Hosp L3 07/28/25 0916 <Electronically signed by Jonel Lorenzo MD> Cosigner Signature (if applicable): CC: ~ Signed [facility] Work Phone: Progress note Author William Chavez [facility] Note Date/Time July 28, 2025 8 :[address] [place] [address] System Medical Records Department [address] [place] [address] Progress Note - Recruiting Operations Consultant 07/28/25 0730 MR#: [id number] Acct: [id number] Name: WING LIN Rep #:[id number] : 1945 80 From: William Chavez DO [...] the patient. This note was generated with [employer]OUND[employer] dictation software. It may contain incorrectwords, spelling, [...] changes. Reading Location: [facility] Physical Exam Const alert and no apparent [...] flat affect Charges/Coding Visit Charges Inpatient E&M: 63965 Subs Hosp L3 07/28/25 0834 <Electronically signed by William Chavez DO> Cosigner Signature (if applicable): CC: ~ Signed [facility] Work Phone: Progress note Author Kamron Nguyen [facility] Note Date/Time July 28, 2025 6 :18pm [facility] Medical Records Department [address] [place] [address] Progress Note 07/28/25 181 MR#: [id number] Acct: [id number] Name: WING LIN Rep #:[id number] : 1945 80 From: Kamron Nguyen DO [...] of her achalasia? Visit Charges Inpatient E&M: 07352 [facility] Hosp 07/28/251817 <Electronically signed by Kamron Nguyen DO> Kamron Nguyen DO Cosigner Signature (if applicable): CC: ~ Signed [facility] Work Phone: Progress note Author Jonel Lorenzo [facility] Note Date/Time July 29, 2025 8 :20am [facility] Medical Records Department [address] [place] [address] Progress Note - Hospitalist 07/29/25 0817 MR#: [id number] Acct: [id number] Name: DELIAWING Rep #:[id number] : 1945 80 From: Jonel Lorenzo MD PCP: LILI STOREY Status:ADM IN Location: ICU ICU03-1 Reason for Visit Chief Complaint: Worsening shortness of breath Subjective Subjective Patient did fill her speech and swallow eval. Dr. Friend reconciled. Plan is for patient to undergo [...] of endotracheal and nasogastric tubes. Reading Location: [facility] Physical Exam Narrative GENERAL: cooperative HEENT: [...] 36 Minutes Charges/Coding Visit Charges Inpatient E&M: 64062 Subs Hosp L2 07/29/25819 <Electronically signed by Jonel Lorenzo MD> Cosigner Signature (if applicable): CC: ~ Signed [facility] Work Phone: Progress note Author William Chavez [facility] Note Date/Time July 29, 2025 8 :54am [facility] Medical Records Department [address] [place] [address] Progress Note - Recruiting Operations Consultant 07/29/25829 MR#: [id number] Acct: [id number] Name: WING LIN Rep #:[id number] : 1945 80 From: William Chavez DO [...] the patient. This note was generated with [employer] dictation software. It may contain incorrectwords, spelling, [...] of endotracheal and nasogastric tubes. Reading Location: [facility] Physical Exam Const alert and no [...] flat affect Charges/Coding Visit Charges Inpatient E&M: 25935 Subs Hosp L2 07/29/25 0805 <Electronically signed by William Chavez DO> Cosigner Signature (if applicable): CC: ~ Signed [facility] Work Phone: Progress note Author Gena Porter [facility] Note Date/Time July 30, 2025 1 2:14pm [facility] Medical Records Department [address] [place] [address] Progress Note - Hospitalist 07/30/25 1002 MR#: [id number] Acct: [id number] Name: WING LIN Rep #:[id number] : 1945 80 From: Gena Porter MD PCP: LILI STOREY Status:ADM IN Location: ICU ICU03-1 Reason for Visit Chief Complaint: Worsening shortness of breath Subjective Subjective Patient resting comfortably in chair, wakes up, still short of breath but reports it is at baseline, still having some cough with some sputum production, no she is at [facility] but when asked what year it was she repeated [facility] Objective Data Objective Data Vital Signs: [...] respiratory failure on home O2 presented to [facility] ED 2025 with increasing shortness of breath. [...] 56 Minutes Charges/Coding Visit Charges Inpatient E&M: 45463 Subs Hosp L3 07/30/25 1214 <Electronically signed by Gena Porter MD> Cosigner Signature (if applicable): CC: ~ Signed [facility] Work Phone: Progress note Author Gena Porter [facility] Note Date/Time July 31, 2025 5 :39pm [facility] Medical Records Department [address] [place] [address] Progress Note - Hospitalist 07/31/25 1520 MR#: [id number] Acct: [id number] Name: WING LIN Rep #:[id number] : 1945 80 From: Gena Porter MD PCP: LILI STOREY Status:ADM IN Location: [place] [address]- 1 Reason for Visit Chief Complaint: Worsening shortness of breath Subjective Subjective Beginning to feel better today, breathing at baseline, little bit more awake andalert, tolerating tube feeds at goal Objective Data Objective Data Vital Signs: Vital Signs Temp Pulse Resp BP Pulse Ox O2 Del Method O2 Flow Rate 98.2 F 109 H 16 118/84 H 97 Nasal Cannula 4 1019/25 09:50 07/31/25 13:13 07/31/25 13:13 07/31/25 09:50 [...] respiratory failure on home O2 presented to [facility] ED 2025 with increasing shortness of breath. [...] heart failure with preserved ejection fraction?resolved -proBNP 8223 - CTA with bilateral pleural effusions - [...] nutrition consult -07/31: Patient tolerating tube feeds, [id number] glucose 228, patient is on low-dose sliding [...] Porter MD Charges/Coding Visit Charges Inpatient E&M: 36256 Subs Hosp L2 07/31/25 1677 <Electronically signed by Gena Porter MD> Cosigner Signature (if applicable): CC: ~ Signed [facility] Work Phone: Progress note Author Antoni Argueta [facility] Note Date/Time August 01, 2025 5 :51pm [facility] Medical Records Department [address] [place] [address] Progress Note - Hospitalist 08/01/25 1232 MR#: [id number] Acct: [id number] Name: WING LIN Rep #:[id number] : 1945 80 From: Antoni luciano DO PCP: LILI STOREY Status:ADM IN Location: [place] [address] Reason for Visit Chief Complaint: Worsening shortness [...] is a 80-year-old female who presented to [facility] ED on 2025 with worsening shortness of breath. 1. 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 Recruiting Operations Consultant followed. On 4 L nasal cannula at [...] 84 minutes. Charges/Coding Visit Charges Inpatient E&M: 09255 Subs Hosp L2 08/01/25 9712 <Electronically signed by Antoni Argueta DO> Cosigner Signature (if applicable): CC: ~ Signed [facility] Work Phone: Progress note Author Antoni lexi [facility] Note Date/Time August 02, 2025 1 1:54am [facility] Medical Records Department [address] [place] [address] Progress Note - Hospitalist 08/02/25 1152 MR#: [id number] Acct: [id number] Name: WING LIN Rep #:[id number] : 1945 80 From: Antoni luciano DO PCP: LILI STOREY Status:ADM IN Location: [place] [address] Reason for Visit Chief Complaint: Worsening shortness [...] 23:59 23:59 Intake Total 1698.25 / 1698.25 2035 / 2035 1194.17 / 1194.17 Output Total 750 / [...] is a 80-year-old female who presented to [facility] ED on 2025 with worsening shortness of breath. 1. 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 Recruiting Operations Consultant followed. On 4 L nasal cannula at [...] 37 minutes. Charges/Coding Visit Charges Inpatient E&M: 50238 Subs Hosp L2 08/02/25 8282 <Electronically signed by Antoni Argueta DO> Cosigner Signature (if applicable): CC: ~ Signed [facility] Work Phone: Progress note Author Antoni lexi [facility] Note Date/Time August 05, 2025 3 :48pm [facility] Medical Records Department [address] [place] [address] Progress Note - Hospitalist 08/03/25 1409 MR#: [id number] Acct: [id number] Name: WING LIN Rep #:[id number] : 1945 80 From: Antoni luciano DO PCP: LILI STOREY Status:ADM IN Location: [place] [address] Reason for Visit Chief Complaint: Worsening shortness [...] is a 80-year-old female who presented to [facility] ED on 2025 with worsening shortness of breath. 1. 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 Recruiting Operations Consultant followed. On 4 L nasal cannula at [...] 36 minutes. Charges/Coding Visit Charges Inpatient E&M: 14874 Subs Hosp L2 08/03/25 1409 <Electronically signed by Antoni Argueta DO> Cosigner Signature (if applicable): CC: ~ Signed [facility] Work Phone: Progress note Author Karlee Rodriguez [facility] Note Date/Time August 03, 2025 4 :13pm [facility] Medical Records Department [address] [place] [address] Progress Note - GI 08/03/25 1148 MR#: [id number] Acct: [id number] Name: WING LIN Rep #:[id number] : 1945 80 From: Karlee valle NP-C PCP: LILI STOREY Status:ADM IN Location: [place] [address]- 1 Subjective Subjective - TF at goal of [...] 23:59 23:59 23:59 Intake Total 2034 / 2034 2417.50 / 2417.50 646.67 / 646.67 [...] consideration for Botox in the future. Note: [employer] speech recognition immunology specialist software was used to create portions of this document. Sound-alike and misspelled words, as well as other immunology specialist errors may be contained in the documentation. 08/03/25 1613 <Electronically signed by Karlee PEARSON> Cosigner Signature (if applicable): CC: ~ Signed [facility] Work Phone: Progress note Author Doris Jeffries [facility] Note Date/Time August 03, 2025 1 0:41pm [facility] Medical Records Department [address] [place] [address] Progress Note - Hospitalist 08/03/251 MR#: [id number] Acct: [id number] Name: WING LIN Rep #:[id number] : 1945 80 From: Doris Goel PCP: LILI STOREY Status:ADM IN Location: [place] [address] Hospitalist Note Bupropion HCl changed from SR form to IR so that it may be crushed and given perG-tube. She was on SR 150mg PO BID, changed to IR 100mg GT TID, so that she continues to receive the same daily amount. 08/03/252240 <Electronically signed by Doris PEARSON> Cosigner Signature (if applicable): CC: ~ Signed [facility] Work Phone: Progress note Author [facility]i [facility] Note Date/Time August 04, 2025 2 :10pm [facility] Medical Records Department [address] [place] [address] Progress Note - Hospitalist 08/04/25 1409 MR#: [id number] Acct: [id number] Name: WING LIN Rep #:[id number] : 1945 80 From: Antoni luciano DO PCP: LILI STOREY Status:ADM IN Location: [place] [address] Reason for Visit Chief Complaint: Worsening shortness [...] is a 80-year-old female who presented to [facility] ED on 2025 with worsening shortness of breath. 1. 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 Recruiting Operations Consultant followed. On 4 L nasal cannula at [...] 36 minutes. Charges/Coding Visit Charges Inpatient E&M: 74004 Subs Hosp L2 08/04/25 1410 <Electronically signed by Antoni Argueta DO> Cosigner Signature (if applicable): CC: ~ Signed [facility] Work Phone: Reason for referral (narrative)[facility] for [facility] Work Phone: Summary Purpose Family History [...] Yes January 26, 2022 4:19pm Power of Automatic Coin Machine Mechanic Yes January 26 4:19pm Advance Directive Response Recorded Date/ Time Living Will Yes January 26, 2022 7:14pm Power of Automatic Coin Machine Mechanic Yes January 26 7:14pm Advance Directive Response Recorded Date/ Time Living Will Yes February 01, 2022 3:45pm Power of Automatic Coin Machine Mechanic No February 01 3:45pm Name of Medical Power of Automatic Coin Machine Mechanic Jony Curly lagos January 31, 2022 3:14pm Advance Directive Response Recorded Date/ Time Living Will Yes February 01, 2022 3:45pm Power of Automatic Coin Machine Mechanic No February 01 3:45pm Advance Directive Response Recorded Date/ Time Living Will Yes February 01, 2022 2:45pm Power of Automatic Coin Machine Mechanic No February 01 2:45pm Advance Directive Response Recorded Date/ Time Living Will Yes March 15, 2023 1 1:36am Power of Automatic Coin Machine Mechanic No March 15, 2023 11:36am Advance Directive Response Recorded Date/ Time Name of Medical Power of Automatic Coin Machine Mechanic michelle lewis July 28, 2023 7:17pm Living Will Yes July 28 7:17pm Power of Automatic Coin Machine Mechanic Yes July 28, 2023 7:17pm Advance Directive Response Recorded Date/ Time Name of Medical Power of Automatic Coin Machine Mechanic jony [email or web address] () July 28, 2023 10:45pm Living Will Yes July 28 10:45pm Power of Automatic Coin Machine Mechanic Yes July 28, 2023 10:45pm Advance Directive Response Recorded Date/ Time Name of Medical Power of Automatic Coin Machine Mechanic jony lagos () July 28, 2023 9:45pm Living Will Yes July 28 9:45pm Power of Automatic Coin Machine Mechanic Yes July 28, 2023 9:45pm Advance Directive Response Recorded Date/ Time Do you have a Healthcare Power of Automatic Coin Machine Mechanic? Yes 2025 6:33pm Name of Medical Power of Automatic Coin Machine Mechanic cecile Alex 2025 6:33pm Chief Complaint and [...] se, stage 3b Debility Depression Diabetes mellitus [id number] Gastroesophageal reflux disease Hyperlipidemia Insomnia Iron deficiency [...] TO COPD/CHC EX ACERBATION July 27, 2025 7:27am ACUTE RESPIRATORY FAILURE TO COPD/CHC [...] section and content) DATE CREATED AUTHOR 04/08/2018 [facility] DATE CREATED AUTHOR AUTHOR'S ORGANIZ ATION 03/24/2023 [facility] ([place]) DATE CREATED AUTHOR AUTHOR'S ORGANIZ ATION 08/24/2025 [facility] DATE CREATED AUTHOR AUTHOR'S ORGANIZ ATION 08/25/2025 [facility] Goals (unrecognized section and content) Goals may [...] Oneill DO Family Provider Active Dr. Danilo Linda , DO Primary Care Provider Active Team Status: Inactive Member Role Status Dates Dr. Danilo Oneill , DO Primary Care Provider Active Dr. Jane Jay , DO Attending Provider, Referring P rovider Active Team Status: Inactive Member Role Status Dates Dr. Danilo Oneill , DO Primary Care Provider Active Dr. Jane Jay , DO Attending Provider Active Team Status: Inactive Member Role Status Dates Dr. Danilo Oneill , DO Primary Care Provider, Attendi ng Provider Active Team Status: Inactive Member Role Status Dates Dr. Danilo Oneill , DO Primary Care Provider Active Dr. Marilou [...] Active Dr. Antoni Argueta , DO Attending Provider Active Team Status: Active Member Role Status Dates Dr. Danilo Oneill DO Primary Care Provider Active Team Status: Inactive Member Role Status Dates Dr. Danilo Oneill DO Primary Care Provider Active Start: December 17, 2024 End: December 17, 2024 Dr. Jane Jay DO Attending Provider Active Start: December 17, 2024 End: December 17, 2024 Dr. Jane Jay , DO Referring Provider Active Start: December 17, [...] Active Member Role/Relationship Status Dates TAYLOR TAYLOR NP-C Primary care physician Active Team Status: Inactive Member Role/Relationship Status Dates Dr. Dulce [facility] Active Start: 2025 End: August 05, 2025 TAYLOR TAYLOR NP-C Primary care physician Active Start: 2025 End: [...] End: August 05, 2025 Dr. Kamron Nguyen DO Nurse Practitioner Active Start: 2025 End: August 05, 2025 Doris Jeffries AUTO HAULER-C Nurse Practitioner Active S tart: 2025 End: August 05, 2025 Karlee Rodriguez NP-C Nurse Practitioner Active Start: 2025 End: August 05, 2025 GENEVA Stock Nurse Practitioner Active Start: 2025 End: August 05, 2025 Dr. Ying Jay DO Nurse Practitioner Active S tart: 2025 [...] Start: 2025 Dr. Antoni Argueta , DO Admitting physician Activ e Start: 2025 Dr. Antoni Argueta , DO Referring Provider Active Start: 2025 Dr. Antoni Argueta , Nurse Practitioner Active Start: 2025 Dr. Bulmaro Gandara MD Nurse Practitioner Active Start: 2025 Dr. Kamron Nguyen , Attending physician Active Start: 2025 Dr. Kamron Nguyen DO Nurse Practitioner Active Start: 2025 Doris Jeffries NP-C Nurse Practitioner Active S tart: 2025 Karlee Rodriguez AUTO HAULER-C Nurse Practitioner Active Start: 2025 GENEVA Stock Nurse Practitioner Active Start: 2025 Dr. Dany Adamson MD Nurse Practitioner Active Start: 2025 Dr. Ryan Conway MD Nurse Practitioner Active Sta rt: 2025 Dr. Chema Caballero MD Nurse Practitioner Active Start: 2025 Dr. William Chavez , Nurse Practitioner Active S tart: 2025 Dr. Jonel Moya MD Nurse Practitioner Active Start: 2025 Dr. Lisa Willis , Nurse Practitioner Active S tart: 2025 Dr. [...] Active Start: 2025 Dr. Pedro Mcmahon , DO Nurse Practitioner Active Start: 2025 Dr. Mirna Lao MD Nurse Practitioner Active St art: 2025 Dr. Yoan Anthony MD Nurse Practitioner Active Start: 2025 Dr. Jonathan Velez MD Nurse Practitioner Active Start: 2025 Dr. Anthony Odonnell , DO Nurse Practitioner Active Start: 2025 Dr. Estuardo Alvarez MD Nurse Practitioner Active Start: 2025 Dr. Devendra Green MD Nurse Practitioner Active Start: 2025 Dr. Georges Duque MD Nurse Practitioner Active Start: 2025 Dr. Jonel Lorenzo MD Nurse Practitioner Active Start: 2025 Dr. Ying Jay , Nurse Practitioner Active S tart: 2025 Team Status: Active Member Role/Relationship Status Dates Dr. Dulce Maria Raymond MD Emergency Departmen t Physician Active Start: July 23, 2025 TAYLOR TAYLOR NP-C Primary care physician Active Start: July 23, 2025 Dr. Antoni Argueta DO Admitting physician Activ e Start: July 23, 2025 Dr. Antoni Argueta , Nurse Practitioner Active Start: July 23, 2025 Dr. Bulmaro Gandara MD Nurse Practitioner Active Start: July 23, 2025 Dr. Kamron Nguyen , DO Nurse Practitioner Active Start: July 23, 2025 Doris Jeffries , NANCY-C Nurse Practitioner Active S tart: July 23, 2025 Karlee Rodriguez NP-C Nurse Practitioner Active Start: July 23, 2025 GENEVA Stock Nurse Practitioner Active Start: July 23, 2025 Dr. Dany Adamson MD Nurse Practitioner Active Start: July 23, 2025 Dr. Ryan Conway MD Nurse Practitioner [...] Active Start: July 23, 2025 Dr. Bienvenido Gli MD Nurse Practitioner Active Start: July 23, 2025 Dr. Willis Vogel , Nurse Practitioner Active Start: July 23, 2025 Dr. Zeb Chavez MD Nurse Practitioner Active St art: July 23, 2025 Dr. Marcy Anton MD Nurse Practitioner Active Start: July 23, 2025 Dr. Catherine Radford MD Nurse Practitioner Active Start: July 23, 2025 Dr. Paulina Orlando , Nurse Practitioner Active Start: July 23, 2025 Dr. Benson Neff MD Nurse Practitioner Active Start: July 23, 2025 Dr. Deandre Nevarez MD Nurse Practitioner Active Start: July 23, 2025 Dr. Levon Cooper MD Nurse Practitioner Active Start: July 23, 2025 Dr. Pedro Mcmahon , Nurse Practitioner Active Start: July 23, [...] July 23, 2025 Dr. Ying Jay , Attending physician Active Start: July 23, 2025 Dr. Ying Jay , Nurse Practitioner Active S tart: July 23, 2025 Team Status: Active Member Role/Relationship Status Dates LILI STOREY Primary care physician Active Start: July 23, 2025 Dr. Andreina Guardado MD Attending physician Active Start: July 23, 2025 Team Status: Active Member Role/Relationship Status Dates Dr. Dulce Maria Raymond MD Emergency Departmen t Physician Active Start: July 24, 2025 LILI STOREY Primary care physician Active Start: July 24, 2025 Dr. Antoni Argueta DO Admitting physician Activ e Start: July 24, 2025 Dr. Antoni Argueta , Nurse Practitioner Active Start: July 24, 2025 Dr. Bulmaro Gandara MD Nurse Practitioner Active Start: July 24, 2025 Dr. Kamron Nguyen , Nurse Practitioner Active Start: July 24, 2025 LILI Roque Nurse Practitioner Active S tart: July 24, 2025 MEJIA BritoC Nurse Practitioner Active Start: July 24, 2025 [...] July 24, 2025 Dr. Willis Vogel , Nurse Practitioner Active Start: July 24, 2025 Dr. Zeb Chavez MD Nurse Practitioner Active St art: July 24, 2025 Dr. Marcy Anton MD Nurse Practitioner Active Start: July 24, 2025 Dr. Catherine Radford MD Nurse Practitioner Active Start: July 24, 2025 Dr. Paulina Orlando , Nurse Practitioner Active Start: July 24, 2025 Dr. Benson Neff MD Nurse Practitioner Active Start: July 24, 2025 Dr. Deandre Nevarez MD Nurse Practitioner Active Start: July 24, 2025 Dr. Levon Cooper MD Nurse Practitioner Active Start: July 24, 2025 Dr. Pedro Mcmahon , Nurse Practitioner Active Start: July 24, 2025 Dr. Mirna Lao MD Nurse Practitioner Active St art: July 24, 2025 Dr. Yoan Anthony MD Nurse Practitioner Active Start: July 24, 2025 Dr. Jonathan Velez MD Nurse Practitioner Active Start: July 24, 2025 Dr. Anthony Odonnell , Nurse Practitioner Active Start: July 24, 2025 Dr. Estuardo Alvarez MD Nurse Practitioner Active Start: July 24, 2025 Dr. Devendra Green MD Nurse Practitioner Active Start: July 24, 2025 Dr. Georges Duque MD Nurse Practitioner Active Start: July 24, 2025 Dr. Ying Jay , Attending physician Active Start: July 24, 2025 Dr. Ying Jay , DO Nurse [...] July 25, 2025 Dr. William Chavez , Attending physician Active Start: July 25, 2025 Dr. William Chavez , Nurse Practitioner [...] July 25, 2025 Dr. Ying Jay , Nurse Practitioner Active S tart: July 25, 2025 Team Status: Active Member Role/Relationship Status Dates Dr. Dulce [facility] Active Start: July 25, 2025 [...] S tart: July 25, 2025 Karlee Rodriguez AUTO HAULER-C Nurse Practitioner Active Start: July 25, 2025 GENEVA Stock Nurse Practitioner Active Start: July 25, 2025 Dr. Dany Adamson MD Nurse Practitioner Active Start: July 25, 2025 Dr. Ryan Conway MD Nurse Practitioner Active Sta rt: July 25, 2025 Dr. Chema Caballero MD Nurse Practitioner Active Start: July 25, 2025 Dr. William Chavez , Nurse Practitioner [...] July 25, 2025 Dr. William Chavez , Nurse Practitioner [...] t Physician Active Start: July 26, 2025 LILI STOREY Primary care physician Active Start: July 26, 2025 Dr. Antoni Argueta DO Admitting physician Activ e Start: July 26, 2025 Dr. Antoni Argueta , Nurse Practitioner Active Start: July 26, 2025 Dr. Bulmaro Gandara MD Nurse Practitioner Active Start: July 26, 2025 Dr. Kamron Nguyen , DO Nurse Practitioner Active Start: July 26, 2025 Doris Jeffries , AUTO HAULER-C Nurse Practitioner Active S tart: July 26, 2025 Karlee Rodriguez , AUTO HAULER-C Nurse Practitioner Active Start: July 26, 2025 GENEVA Stock Nurse Practitioner Active Start: July 26, 2025 Dr. Dany Adamson MD Nurse Practitioner Active Start: July 26, 2025 Dr. Ryan Conway MD Nurse Practitioner Active Sta rt: July 26, 2025 Dr. Chema Caballero MD Nurse Practitioner Active Start: July 26, 2025 Dr. William Chavez , DO Nurse Practitioner Active S tart: July 26, 2025 Dr. Jonel Moya MD Nurse Practitioner Active Start: July 26, 2025 Dr. Lisa Willis , DO Nurse [...] Active Start: July 26, 2025 Dr. Georges uDque MD Nurse Practitioner Active Start: July 26, [...] Start: July 26, 2025 Dr. Antoni Argueta DO Admitting physician Activ e Start: July 26, 2025 Dr. Antoni Argueta , Nurse Practitioner Active Start: July 26, 2025 Dr. Bulmaro Gandara MD Nurse Practitioner Active Start: July 26, 2025 Dr. Kamron Nguyen , Nurse Practitioner Active Start: July 26, 2025 Doris Jeffries NP-C Nurse Practitioner Active S tart: July 26, 2025 Karlee Rodriguez NP-C Nurse Practitioner Active Start: July 26, 2025 GENEVA Stock Nurse Practitioner Active Start: July 26, 2025 Dr. Dany Adamson MD Nurse Practitioner Active Start: July 26, 2025 Dr. Ryan Conway MD Nurse Practitioner Active Sta rt: July 26, 2025 Dr. Chema Caballero MD Nurse Practitioner Active Start: July 26, 2025 Dr. William Chavez , Attending physician Active Start: July 26, 2025 Dr. William Chavez , DO Nurse [...] Active Member Role/Relationship Status Dates TAYLOR TAYLOR NP-C Primary care physician Active Start: July 26, 2025 Dr. Kamron Nguyen , Attending physician Active Start: July 26, 2025 Team Status: Active Member Role/Relationship Status Dates Dr. Dulce Maria Raymond MD Emergency Departmen t Physician Active Start: July 27, 2025 TAYLOR TAYLOR NP-C Primary care physician Active Start: July 27, 2025 Dr. Antoni Argueta DO Admitting physician Activ e Start: July 27, 2025 Dr. Antoni Argueta , Nurse Practitioner Active Start: July 27, 2025 Dr. Bulmaro Gandara MD Nurse Practitioner Active Start: July 27, 2025 Dr. Kamron Nguyen DO Nurse Practitioner Active Start: July 27, [...] Active Start: July 27, 2025 Dr. William Brown , DO Nurse Practitioner Active S tart: July 27, 2025 Dr. Jonel Moya MD Nurse Practitioner Active Start: July 27, 2025 Dr. Lisa Willis , DO Nurse [...] July 27, 2025 Dr. Willis Vogel , DO Nurse [...] July 27, 2025 Dr. Anthony Odonnell , DO Nurse [...] July 27, 2025 Dr. Ying Jay , DO Nurse Practitioner Active S tart: July 27, 2025 Team Status: Active Member Role/Relationship Status Dates Dr. Dulce Maria Raymond MD Emergency Departmen t Physician Active Start: July 27, 2025 TAYLOR TAYLOR NP-C Primary care physician Active Start: July 27, [...] Start: July 27, 2025 Dr. William Chavez DO Attending physician Active Start: July 27, 2025 Dr. William Chavez , Nurse Practitioner [...] July 27, 2025 Dr. Willis Vogel , DO Nurse [...] July 27, 2025 Dr. Pedro Mcmahon , Nurse Practitioner Active Start: July 27, 2025 Dr. Mirna Lao MD Nurse Practitioner Active St art: July 27, 2025 Dr. Yoan Anthony MD Nurse Practitioner Active Start: July 27, 2025 Dr. Jonathan Velez MD Nurse Practitioner Active Start: July 27, 2025 Dr. Anthony Odonnell , DO Nurse [...] July 27, 2025 Dr. Ying Jay , DO Nurse [...] Practitioner Active Start: July 28, 2025 Dr. Fernnado Elaine MD Nurse Practitioner Active Start: July [...] July 28, 2025 Dr. William Chavez , Attending physician Active Start: July 28, 2025 Dr. William Chavez , Nurse Practitioner Active S tart: July 28, 2025 Dr. Jonel Moya MD Nurse Practitioner Active Start: July 28, 2025 Dr. Lisa Willis , Nurse Practitioner Active S tart: July 28, 2025 Dr. Nima Yusuf MD Nurse Practitioner Active Start: July 28, 2025 Dr. eFrnando Elaine MD Nurse Practitioner Active Start: July [...] July 28, 2025 Dr. Paulina Orlando , Nurse Practitioner Active Start: July 28, [...] Start: July 28, 2025 Dr. Ying Jay DO Nurse Practitioner Active S tart: July 28, 2025 Team Status: Active Member Role/Relationship Status Dates Dr. Dulce Maria Raymond MD Emergency Departmen t Physician Active Start: July 28, 2025 TAYLOR TAYLOR NP-Eddie Primary care physician Active Start: July 28, 2025 Dr. Antoni Argueta DO Admitting physician Activ e Start: July 28, 2025 Dr. Antoni Argueta DO Nurse Practitioner Active Start: July 28, 2025 Dr. Bulmaro Gandara MD Nurse Practitioner Active Start: July 28, 2025 Dr. Kamron Friend , DO Attending physician Active Start: July 28, 2025 Dr. Kamron Nguyen , DO Nurse Practitioner Active Start: July 28, 2025 Doris Jeffries , AUTO HAULER-C Nurse Practitioner Active S tart: July 28, 2025 Karlee Rodriguez AUTO HAULER-C Nurse Practitioner Active Start: July 28, 2025 [...] Start: July 28, 2025 Dr. Ying Jay DO Nurse Practitioner [...] Nurse Practitioner Active Start: July 29, 2025 MEJIA RoqueC Nurse Practitioner Active S tart: July 29, 2025 Karlee Rodriguez NP-C Nurse Practitioner Active Start: July 29, 2025 GENEVA Stock Nurse Practitioner Active Start: July 29, 2025 Dr. Dany Adamson MD Nurse Practitioner Active Start: July 29, 2025 Dr. Ryan Conway MD Nurse Practitioner Active Sta rt: July 29, 2025 Dr. Chema Caballero MD Nurse Practitioner Active Start: July 29, 2025 Dr. William Chavez , DO Nurse [...] Active Start: July 29, 2025 Dr. Ying Jay , Nurse Practitioner Active S tart: July 29, 2025 Team Status: Active Member Role/Relationship Status Dates Dr. Dulce Maria Raymond MD Emergency Departmen t Physician Active Start: July 29, 2025 TAYLOR TAYLOR AUTO HAULER-C Primary care physician Active Start: July 29, 2025 Dr. Antoni Argueta DO Admitting physician Activ e Start: July 29, 2025 Dr. Antoni Argueta , Nurse Practitioner Active Start: July 29, 2025 Dr. Bulmaro Gandara MD Nurse Practitioner Active Start: July 29, 2025 Dr. Kamron Nguyen , Nurse Practitioner Active Start: July 29, 2025 Doris Jeffries NP-C Nurse Practitioner Active S tart: July 29, 2025 Karlee Rodriguez AUTO HAULER-C Nurse Practitioner Active Start: July 29, 2025 GENEVA Stock Nurse Practitioner Active Start: July 29, 2025 Dr. Dany Adamson MD Nurse Practitioner Active Start: July 29, 2025 Dr. Ryan Conway MD Nurse Practitioner Active Sta rt: July 29, 2025 Dr. Chema Caballero MD Nurse Practitioner Active Start: July 29, 2025 Dr. William Chavez DO Attending physician Active Start: July 29, 2025 Dr. iWlliam Chavez , Nurse Practitioner Active S tart: [...] S tart: July 29, 2025 Dr. Angel Founatin MD Nurse Practitioner Active St art: July 29, 2025 Dr. Barry Lo MD Nurse Practitioner Active Start: July 29, 2025 Dr. Austin Marie MD Nurse Practitioner Active S tart: July 29, 2025 Dr. Amanda Smith MD Nurse Practitioner Active Start: July 29, 2025 Dr. Bienvenido Gil MD Nurse Practitioner Active Start: July 29, 2025 Dr. Willis Vogel , DO Nurse [...] Active Start: July 29, 2025 Dr. Ying Jay DO Nurse Practitioner Active S tart: July 29, 2025 Team Status: Active Member Role/Relationship Status Dates TAYLOR TAYLOR AUTO HAULER-C Primary care physician Active Start: July 29, 2025 Dr. Kamron Nguyen DO Attending physician Active Start: July 29, 2025 Team Status: Active Member Role/Relationship Status Dates Dr. Dulce Maria Raymond MD Emergency [facility] Physician Active Start: July 30, 2025 TAYLOR TAYLOR AUTO HAULER-C Primary care physician Active Start: July 30, 2025 Dr. Antoni Argueta DO Admitting physician Active Start: July 30, 2025 Dr. Antoni Argueta DO Nurse Practitioner Active Start: July 30, 2025 Dr. Bulmaro Gandara MD Nurse Practitioner Active Start: July 30, 2025 Dr. Kamron Nguyen DO Nurse Practitioner Active Start: July 30, 2025 LILI Roque Nurse Practitioner Active S tart: July 30, 2025 LILI Brito Nurse Practitioner Active Start: July 30, 2025 [...] Dates Dr. Dulce Maria Raymond MD Emergency [facility] t Physician Active Start: July 31, 2025 TAYLOR TAYLOR AUTO HAULER-C Primary care physician Active Start: July 31, [...] Dates Dr. Dulce [facility] Active Start: August 01, 2025 TAYOLR TAYLOR AUTO HAULER-C Primary care physician Active Start: August 01, [...] Practitioner Active S tart: August 01, 2025 LILI Brito Nurse Practitioner Active Start: August 01, 2025 GENEVA Stock Nurse Practitioner Active Start: August 01, 2025 Dr. Ying Jay DO Nurse Practitioner Active S tart: August 01, 2025 Dr. Jonel Lorenzo MD Nurse Practitioner Active Start: August 01, 2025 Dr. Gena Porter MD Nurse Practitioner Active Start: August 01, 2025 Team Status: Active Member Role/Relationship Status Dates Dr. Dulce [facility] Active Start: August 02, 2025 TAYLOR TAYLOR AUTO HAULER-C Primary care physician Active Start: August 02, 2025 Dr. Antoni Argueta DO Admitting physician Active Start: August 02, 2025 Dr. Antoni Argueta DO Attending physician Active Start: August 02, 2025 Dr. Antoni Argueta DO Nurse Practitioner Active Start: August 02, 2025 Dr. Bulmaro Gandara MD Nurse Practitioner Active Start: August 02, 2025 Dr. Kamron Nguyen , DO Nurse Practitioner Active Start: August 02, 2025 MEJIA RoqueC Nurse Practitioner Active S tart: August 02, 2025 MEJIA BritoC Nurse Practitioner Active Start: August 02, 2025 GENEVA Stock Nurse Practitioner Active Start: August 02, 2025 Dr. Ying Jay DO Nurse Practitioner Active S tart: August 02, 2025 Dr. Jonel Lorenzo MD Nurse Practitioner Active Start: August 02, 2025 Dr. Gena Porter MD Nurse Practitioner Active Start: August 02, 2025 Team Status: Active Member Role/Relationship Status Dates Dr. Dulce Maria Raymond [facility] Active Start: August 03, 2025 TAYLOR TAYLOR NP-C Primary care physician Active Start: August 03, 2025 Dr. Antoni Argueta , Admitting physician Active Start: August 03, 2025 Dr. Antoni Argueta DO Nurse Practitioner Active Start: August 03, 2025 Dr. Bulmaro Gandara MD Nurse Practitioner Active Start: August 03, 2025 Dr. Kamron Nguyne , DO Nurse Practitioner Active Start: August 03, 2025 MEJIA RoqueC Nurse Practitioner Active S tart: August 03, 2025 LILI Brito Attending physician Active Start: August 03, 2025 Karlee Rodriguez NP-C Nurse Practitioner Active Start: August 03, 2025 GENEVA Stock Nurse Practitioner Active Start: August 03, 2025 Dr. Ying Jay DO Nurse Practitioner Active S tart: August 03, 2025 Dr. Jonel Lorenzo MD Nurse Practitioner Active Start: August 03, 2025 Dr. Gena Porter MD Nurse Practitioner Active Start: August 03, 2025 Team Status: Active Member Role/Relationship Status Dates Dr. Dulce [facility] Active Start: August 03, 2025 TAYLOR TAYLOR NP-C Primary care physician Active Start: August 03, 2025 Dr. Antoni Argueta DO Admitting physician Active Start: August 03, 2025 Dr. Antoni Argueta DO Attending physician Active Start: August 03, 2025 Dr. Antoni Argueta DO Nurse Practitioner Active Start: August 03, 2025 Dr. Bulmaro Gandara MD Nurse Practitioner Active Start: August 03, 2025 Dr. Kamron Nguyen DO Nurse Practitioner Active Start: August 03, 2025 Doris Jeffries NP-C Nurse Practitioner Active S tart: August 03, 2025 MEJIA BritoC Nurse Practitioner Active Start: August 03, 2025 GENEVA Stock Nurse Practitioner Active Start: August 03, 2025 Dr. Ying Jay DO Nurse Practitioner Active S tart: August 03, 2025 Dr. Jonel Lorenzo MD Nurse Practitioner Active Start: August 03, 2025 Dr. Gena Porter MD Nurse Practitioner Active Start: August 03, 2025 Team Status: Active Member Role/Relationship Status Dates Dr. Dulce [facility] Active Start: August 04, 2025 LILI STOREY Primary care physician Active Start: August 04, 2025 Dr. Antoni Argueta DO Admitting physician Active Start: August 04, 2025 Dr. Antoni Argueta DO Attending physician Active Start: August 04, 2025 Dr. Antoni Argueta DO Nurse Practitioner Active Start: August 04, 2025 Dr. Bulmaro Gandara MD Nurse Practitioner Active Start: August 04, 2025 Dr. Kamron Nguyen DO Nurse Practitioner Active Start: August 04, 2025 Doris Jeffries NP-C Nurse Practitioner Active S tart: August 04, 2025 MEJIA BritoC Nurse Practitioner Active Start: August 04, 2025 [...] Start: August 05, 2025 Dr. Antoni Argueta , Admitting physician Active Start: August 05, 2025 Dr. Antoni Argueta , Attending physician Active Start: August 05, 2025 Dr. Antoni Argueta , Nurse Practitioner Active Start: August 05, 2025 Dr. Bulmaro Gandara MD Nurse Practitioner Active Start: August 05, 2025 Dr. Kamron Nguyen , Nurse Practitioner Active Start: August 05, 2025 Doris Jeffries NP-C Nurse Practitioner Active S tart: August 05, 2025 Karlee Rodriguez NP-C Nurse Practitioner Active Start: August 05, 2025 GENEVA Stock Nurse Practitioner Active Start: August 05, 2025 Dr. Ying Jay , Nurse Practitioner Active S tart: August 05, [...] BE BASED ON THE PRIMARY CLINICAL RECORDS. [employer] provides no warranty or guarantee of the accuracy or completeness of information in this document.
[2025-09-23] MEDS: Dextrose 5%/0.9% NaCl 1,000 ML 60 ML IV (21:26)
[2025-09-23 22:22] LABS: Anion Gap 9 (5-15); BUN 36 mg/dL (4-19); BUN/Creat Ratio 20.9 RATIO (10-20); Calcium,Total 8.4 mg/dL (7.6-11.0); Carbon Dioxide 25.2 mmol/L (21.0-32.0); Chloride 101 mmol/L (98-108); Estimated Creatinine Clearance 28.94 ml/min (50-250); Glucose 93 mg/dL (70-99); Magnesium 1.5 mg/dL (1.5-2.2); Potassium 5.1 mmol/L (3.3-5.1)
[2025-09-23] MEDS: Cefepime HCl 2 GM in 0.9% Normal Saline (100mL MB+) 100 ML IV (23:25)
[2025-09-23] MEDS: APIXABAN 5 MG TABLET PO (23:32)
[2025-09-24] VITALS (23 sets, daily range): BP systolic 106–159; BP diastolic 49–123; PULSE 65–79; RESP 14–21; TEMP 36.3–37.2; O2SAT 90–100; BMI 28.7
[2025-09-24 06:17] LABS: Hematocrit 29.2 % (37-47); Hemoglobin 8.7 g/dL (12.0-15.0); Immature Granulocytes Count 0.050 X10^3/uL (0.0-0.0); Mean Corp Hgb Conc 29.8 g/dL (32-36); Mean Corpuscular Volume 101.0 fL (81-99); Mean Platelet Vol. 9.5 fl (6.2-12.0); NRBC Flagged by Analyzer 0 % (0-5); Platelet Count 199 K/mm3 (150-450); RBC Distribution Width CV 14.7 % (11.6-14.6); RBC Distribution Width SD 54.0 fl (35.1-43.9); Red Blood Count 2.89 M/mm3 (4.2-5.4); White Blood Count 9.2 K/mm3 (4.4-11.0)
[2025-09-24 06:46] LABS: AST(SGOT) 15 U/L (<=31); Alanine Aminotransfer ALT/SGPT 6 U/L (<=34); Albumin, Serum 2.8 g/dL (3.4-4.8); Alkaline Phosphatase 71 U/L (35-104); Anion Gap 11 (5-15); BUN 35 mg/dL (4-19); BUN/Creat Ratio 19.6 RATIO (10-20); Calcium,Total 8.0 mg/dL (7.6-11.0); Carbon Dioxide 23.2 mmol/L (21.0-32.0); Chloride 103 mmol/L (98-108); Estimated Creatinine Clearance 28.45 ml/min (50-250); Globulin 3.2 g/dL (2.2-4.2); Glucose 77 mg/dL (70-99); Potassium 5.1 mmol/L (3.3-5.1)
[2025-09-24] MEDS: APIXABAN 5 MG TABLET PO ×2 (10:58→23:37)
--- NOTE | 2025-09-24 11:38 | PCM.PN.HOSP ---
Reason for Visit Chief Complaint: Low BS. Subjective Subjective Feeling ok. Denies complaints. Objective Data Objective Data Vital Signs: Vital Signs Temp Pulse Resp BP Pulse Ox O2 Del Method O2 Flow Rate 36.3 C L 75 18 152/72 H 99 Nasal Cannula 4 09/24/25 08:15 09/24/25 10:59 09/24/25 10:36 09/24/25 08:15 09/24/25 08:15 09/24/25 08:15 09/24/25 08:15 Oxygen Flow Rate (L/min) 4 Oxygen Delivery Method Nasal Cannula Weight: 83.2 kg Body Mass Index (BMI) 28.7 Intake & Output: Intake and Output for Last 24 Hours 09/22/25 09/23/25 09/24/25 23:59 23:59 23:59 Intake Total 1342.5 / 1342.5 220 / 220 Balance 1342.5 / 1342.5 220 / 220 Lab / Micro Data 09/24/25 05:54 09/24/25 05:54 Labs: Laboratory Results - last 24 hr 09/23/25 13:59: POC Glucose 102 09/23/25 14:28: WBC 9.2, RBC 3.13 L, Hgb 9.7 L, Hct 30.8 L, MCV 98.4, MCH 31.0, MCHC 31.5 L, RDW Std Deviation 53.3 H, RDW Coeff of Tessa 14.9 H, Plt Count 238, MPV 9.1, Immature Gran % (Auto) 0.400, Neut % (Auto) 86.4 H, Lymph % (Auto) 7.6 L, Rogers % (Auto) 4.6, Eos % (Auto) 0.8, Baso % (Auto) 0.2, Absolute Neuts (auto) 8.0 H, Absolute Lymphs (auto) 0.70 L, Nucleated RBC % 0, Sodium 135, Potassium 5.8 H, Chloride 98, Carbon Dioxide 26.0, Anion Gap 11, BUN 36 H, Creatinine 1.86 H, Est GFR (MDRD) Non-Af 27 L, BUN/Creatinine Ratio 19.4, Glucose 74, Calcium 8.1 09/23/25 15:25: Urine Color Yellow, Urine Clarity Sl. Cloudy, Urine pH 6.0, Ur Specific [place] 1.010, Urine Protein 30 H, Urine Glucose (UA) Normal, Urine Ketones Negative, Urine Occult Blood 250 H, Urine Nitrite Negative, Urine Bilirubin Negative, Urine Urobilinogen Normal, Ur Leukocyte Esterase 100 H, Urine RBC 10-25 SEEN, Urine WBC 10-25 SEEN, Ur Squamous Epith Cells 0 SEEN, Urine Bacteria 4+, Urine Mucus 0 SEEN 09/23/25 17:26: POC Glucose 24 L* 09/23/25 17:30: Glucose 29 L* 09/23/25 17:55: POC Glucose 40 L* 09/23/25 19:10: POC Glucose 122 H 09/23/25 20:32: POC Glucose 97 09/23/25 21:14: POC Glucose 102 09/23/25 21:47: Sodium 135, Potassium 5.1, Chloride 101, Carbon Dioxide 25.2, Anion Gap 9, BUN 36 H, Creatinine 1.73 H, Estim Creat Clear Calc 28.94 L, Est GFR (MDRD) Non-Af 30 L, BUN/Creatinine Ratio 20.9 H, Glucose 93, Calcium 8.4, Magnesium 1.5 09/23/25 23:24: POC Glucose 107 H 09/24/25 01:13: POC Glucose 101 09/24/25 03:03: POC Glucose 97 09/24/25 05:08: POC Glucose 87 09/24/25 05:54: WBC 9.2, RBC 2.89 L, Hgb 8.7 L, Hct 29.2 L, MCV 101.0 H, MCH 30.1, MCHC 29.8 L D, RDW Std Deviation 54.0 H, RDW Coeff of Tessa 14.7 H, Plt Count 199, MPV 9.5, Immature Gran % (Auto) 0.500, Neut % (Auto) 80.5 H, Lymph % (Auto) 10.4 L, Rogers % (Auto) 7.0, Eos % (Auto) 1.4, Baso % (Auto) 0.2, Absolute Neuts (auto) 7.4, Absolute Lymphs (auto) 0.95, Nucleated RBC % 0, Sodium 137, Potassium 5.1, Chloride 103, Carbon Dioxide 23.2, Anion Gap 11, BUN 35 H, Creatinine 1.76 H, Estim Creat Clear Calc 28.45 L, Est GFR (MDRD) Non-Af 29 L, BUN/Creatinine Ratio 19.6, Glucose 77, Calcium 8.0, Total Bilirubin 0.16, AST 15, ALT 6, Alkaline Phosphatase 71, Total Protein 6.0, Albumin 2.8 L, Globulin 3.2, Albumin/Globulin Ratio 0.9, TSH 6.900 H 09/24/25 06:55: POC Glucose 59 L 09/24/25 07:28: POC Glucose 81 09/24/25 08:15: POC Glucose 87 09/24/25 09:59: POC Glucose 121 H Micro: Microbiology 09/23/25 15:25 Urine Catheter - Catheter Urine Culture - Preliminary Presumptive E. coli Radiography Diagnostic Testing: Radiology Impression Chest X-Ray 09/23/25 15:30 IMPRESSION: There is chronic interstitial lung disease. There has been interval improvement in the patient's congestive heart failure with a residual left pleural effusion and left basilar atelectasis. Reading Location: [place] [id number] Physical Exam Const alert and no apparent distress HEENT head/scalp atraumatic and moist oral mucous membranes Resp normal respiratory effort, no retractions, no use of accessory muscles and clear to auscultation bilaterally Cardio regular rate, regular rhythm and S1 normal heart sound GI normal to inspection, nondistended, normoactive bowel sounds and soft to palpation Extremity Extremity Narrative: superficial ulcerations on left ankle w/o surrounding erythema. Assessment & Plan Assessment/Plan (1) UTI (urinary tract infection): PLAN: Plan UTI prelim culture w E. coli on cefepime now Acute hypoglycemia iatrogenic in patient with infection pioglitazone held. glargine held. Hyperkalemia resolved. monitor. Chronic medical conditions: Chronic COPD with allergic rhinitis with chronic hypoxic respiratory failure 5 L NC: Will maintain on home chronic supplementation, continue ATC duonebs, PRN albuterol, HOB, IS parameters, continue montelukast regimen. Chronic normocytic anemia/iron deficiency anemia: Admission hemoglobin 9.7, MCV 98.4, baseline hemoglobin primarily more recently 7-9 range, stable, continue to trend, continue iron supplementation. History CVA: Will continue Eliquis, not on statin therapy, attempted to clarify why, continue hypertensive regimen with alteration as noted with hold on nephrotoxic agents temporarily, holding all diabetic regimen given hypoglycemic presentation as noted. Hypertension: Continue home regimen including metoprolol with hold parameters as needed, PRN hydralazine. Temporarily hold nephrotoxic medication given mild renal insufficiency, add back if improved in the AM. Hyperlipidemia: Per current list not on statin therapy, no noted allergy, defer to outpatient. Anxiety and depression/mood disorder: Will continue patient home regimen cautiously, hold for sedation especially given concurrent hypoglycemic presentation, regimen including trazodone, bupropion, Abilify. PAF: Will continue patient home Eliquis, metoprolol and amiodarone regimen. GERD: Will continue patient on PPI. Chronic left lower extremity ulcers: Following with wound care, recent transition to podiatry, will continue Aquacel Ag with twice daily dressings per most recent wound care note, wound RN consulted. Direct visualization showed that if superficial do not. Be infected. Did have culture that was showing staph species. This is likely colonization and does not warrant treatment with antibiotics at this time. YOKO: BiPAP nightly. DVT prophylaxis: Will continue patient on Eliquis regimen. Charges/Coding Visit Charges Inpatient E&M: 35538 Subs Hosp L2
--- NOTE | 2025-09-24 14:12 | CASEMGMT ---
MIRZA HODGES Assessment Face to Face with patient for initial transition planning/care coordination assessment. Pt is A&Ox2 at this time and requests this ghost writer to call the pt's dtr. TC to the pts HCPOA (Dtr Abi). Abi states that she is agreeable to answering this writers questions for assessment. Care providers, pharmacy, and demographics verified. Admitting dx: UTI, Hypoglycemia LACE Strata: 3 PCP: Tra [facility]ina Specialists: Pierre (Nephro), Cardiology in [place] but cannot recall the name. Preferred Pharmacy: [facility] Insurance: [employer] Prescription Benefit: Yes LNOK: Abi (Dtr), Barbie (Dtr) Living Arrangements: Pt lives in a 2 story home with a FFSU and a ramp to enter ADLs/IADLs: Abi states that she has to help the pt at home and that the pt is also active with skilled HHC. See below. Transportation: Abi DME: Home oxygen through [facility]. CM to call on Friday for current order verification. Abi states that the pt has a cane, multiple portable tanks (one is here in the hospital), pulse ox, inhaler, and nebulizer. Abi states that the pt has a BGM with sufficient testing supplies. BSC. Shower chair. Cane. FWW. WC. Wound supplies provided by the HHC Agency. HHC/SNF: Hx at [facility]. Abi states that the pt is active with [facility] skilled [facility] and that they help with the pt's ankle wound. Referral sent to [facility] via [facility] to confirm the pt is active with them. Awaiting return response. Pt?s goal: TBD Plan: TBD. Anticipate SNF vs Home with [facility] and updated O2 needs. At this time, Abi states that it is too early to tell what the pt will need or want at the time of DC. current 6-Click score is 12.PT is pending. CM to follow up on Friday for safe DC planning. Abi denies further questions or concerns at this time. Yasir Duran RN, CM
[2025-09-24] MEDS: Cefepime HCl 2 GM in 0.9% Normal Saline (100mL MB+) 100 ML IV (23:37)
[2025-09-25] VITALS (10 sets, daily range): BP systolic 130–159; BP diastolic 56–74; PULSE 66–70; RESP 14–20; TEMP 36.6–36.8; O2SAT 59–98; BMI 28.7
--- NOTE | 2025-09-25 06:55 | CPS ---
Found patient sleeping with Nasal Cannula out of her nose. SpO2 was 59%, placed back on cannula at 4 lpm, patient recovered over several minutes.
--- NOTE | 2025-09-25 09:06 | PN.HOSP_ITS ---
Reason for Visit Chief Complaint: Low BS. Subjective Subjective Feeling well. No events. Objective Data Objective Data Vital Signs: Vital Signs Temp Pulse Resp BP Pulse Ox O2 Del Method O2 Flow Rate 36.8 C 70 20 H 150/56 H 95 Nasal Cannula 4 09/25/25 03:34 09/25/25 06:53 09/25/25 06:53 09/25/25 03:34 09/25/25 06:56 09/25/25 06:56 09/25/25 06:56 Oxygen Flow Rate (L/min) 4 Oxygen Delivery Method Nasal Cannula Weight: 83.1 kg Body Mass Index (BMI) 28.7 Intake & Output: Intake and Output for Last 24 Hours 09/23/25 09/24/25 09/25/25 23:59 23:59 23:59 Intake Total 1342.5 / 1342.5 1939 200 / 200 Balance 1342.5 / 1342.5 1939 200 / 200 Lab / Micro Data 09/24/25 05:54 09/24/25 05:54 Labs: Laboratory Results - last 24 hr 09/24/25 09:59: POC Glucose 121 H 09/24/25 14:06: POC Glucose 144 H 09/24/25 16:54: POC Glucose 102 09/24/25 23:30: POC Glucose 146 H 09/25/25 06:19: POC Glucose 165 H Micro: Microbiology 09/23/25 15:25 Urine Catheter - Catheter Urine Culture - Final Presumptive E. coli Physical Exam Const alert and no apparent distress HEENT head/scalp atraumatic and moist oral mucous membranes Resp normal respiratory effort, no retractions, no use of accessory muscles and clear to auscultation bilaterally Cardio regular rate, regular rhythm, S1 normal heart sound and S2 normal heart sound Assessment & Plan Assessment/Plan (1) UTI (urinary tract infection): PLAN: Plan UTI * UCx showing lopez-sensitive E. coli. * Will de-escalate antibiotics to ceftriaxone Acute hypoglycemia * Resolved. Iatrogenic in patient with infection * pioglitazone held. glargine held. * a1c from 08/15/2025 was 6.4 Hyperkalemia * resolved. monitor. Chronic medical conditions: * Chronic COPD with allergic rhinitis with chronic hypoxic respiratory failure 5 L NC: Will maintain on home chronic supplementation, continue ATC duonebs, PRN albuterol, HOB, IS parameters, continue montelukast regimen. * Chronic normocytic anemia/iron deficiency anemia: Admission hemoglobin 9.7, MCV 98.4, baseline hemoglobin primarily more recently 7-9 range, stable, continue to trend, continue iron supplementation. * History CVA: Will continue Eliquis, not on statin therapy, attempted to clarify why, continue hypertensive regimen with alteration as noted with hold on nephrotoxic agents temporarily, holding all diabetic regimen given hypoglycemic presentation as noted. * Hypertension: Continue home regimen including metoprolol with hold parameters as needed, PRN hydralazine. Temporarily hold nephrotoxic medication given mild renal insufficiency, add back if improved in the AM. * Hyperlipidemia: Per current list not on statin therapy, no noted allergy, defer to outpatient. * Anxiety and depression/mood disorder: Will continue patient home regimen cautiously, hold for sedation especially given concurrent hypoglycemic presentation, regimen including trazodone, bupropion, Abilify. * PAF: Will continue patient home Eliquis, metoprolol and amiodarone regimen. * GERD: Will continue patient on PPI. * Chronic left lower extremity ulcers: Following with wound care, recent transition to podiatry, will continue Aquacel Ag with twice daily dressings per most recent wound care note, wound RN consulted. Direct visualization showed that if superficial do not. Be infected. Did have culture that was showing staph species. This is likely colonization and does not warrant treatment with antibiotics at this time. * YOKO: BiPAP nightly. DVT prophylaxis: Will continue patient on Eliquis regimen. Disposition: To be determined. SNF versus home health care Charges/Coding Visit Charges Inpatient E&M: 36689 Subs Hosp L2
[2025-09-25] MEDS: Ensure Plus High Protein 120 ML LIQUID PO ×3 (09:11→16:40)
[2025-09-25] MEDS: APIXABAN 5 MG TABLET PO ×2 (09:11→21:57)
[2025-09-25] MEDS: Cefepime HCl 2 GM in 0.9% Normal Saline (100mL MB+) 100 ML IV (21:52)
[2025-09-25] MEDS: Insulin Glargine-YFGN 100 UNIT/ML Pen 10 UNIT SC (21:52)
[2025-09-26] VITALS (9 sets, daily range): BP systolic 142–154; BP diastolic 53–62; PULSE 62–67; RESP 14–18; TEMP 36.4–36.7; O2SAT 84–100; BMI 28.5
[2025-09-26] MEDS: APIXABAN 5 MG TABLET PO ×2 (09:30→20:06)
[2025-09-26] MEDS: Ensure Plus High Protein 120 ML LIQUID PO ×3 (09:32→17:19)
--- NOTE | 2025-09-26 10:06 | PN.HOSP_ITS ---
Reason for Visit Chief Complaint: Low BS. Subjective Subjective Patient is a 80-year-old female who presented to the emergency department with low blood glucose and foul-smelling urine was found to have UTI on admission Objective Data Objective Data Vital Signs: Vital Signs Temp Pulse Resp BP Pulse Ox O2 Del Method O2 Flow Rate 98.0 F 66 16 142/62 H 94 Nasal Cannula 4 09/26/25 09:00 09/26/25 09:31 09/26/25 09:00 09/26/25 09:00 09/26/25 09:00 09/26/25 09:45 09/26/25 09:45 Oxygen Flow Rate (L/min) 4 Oxygen Delivery Method Nasal Cannula Weight: 82.8 kg Body Mass Index (BMI) 28.5 Intake & Output: Intake and Output for Last 24 Hours 09/24/25 09/25/25 09/26/25 23:59 23:59 23:59 Intake Total 1939 200 / 200 100 / 100 Balance 1939 200 / 200 100 / 100 Lab / Micro Data 09/24/25 05:54 09/24/25 05:54 Labs: Laboratory Results - last 24 hr 09/25/25 16:38: POC Glucose 371 H 09/25/25 16:39: POC Glucose 373 H 09/25/25 21:39: POC Glucose 342 H 09/26/25 01:21: POC Glucose 154 H 09/26/25 06:19: POC Glucose 145 H Micro: Microbiology 09/23/25 15:25 Urine Catheter - Catheter Urine Culture - Final Presumptive E. coli Physical Exam Narrative GENERAL: cooperative HEENT: Atraumatic; normocephalic EYES; Anicteric, Normal Conjunctiva NECK; supple, normal thyroid, RESPIRATORY: Diminished to auscultation CARDIOVASCULAR: Regular S1 S2, GI: soft, normoactive bowel sounds, : No Renal angle tenderness; EXTREMITIES: Chronic wound involving the left lower extremity MUSCULOSKELETAL: no muscle wasting NEURO: Awake; no lateralizing signs. SKIN: No Rash PSYCH; Flat affect Assessment & Plan Assessment/Plan (1) UTI (urinary tract infection): PLAN: Plan Patient is a 80-year-old female who presented to the emergency department with low blood glucose and foul-smelling urine was found to have UTI on admission 1. Acute cystitis with pansensitive E. coli ? Patient management broad-spectrum antibiotic therapy de-escalated to ceftriaxone 2. Hypoglycemia ? Patient long-acting insulin held on admission, placed on Accu-Cheks AC and at bedtime with sliding scale coverage 3. Diabetes mellitus type 2 ? Patient presented with hypoglycemia her long-acting insulin as well as oral agents held placed on Accu-Cheks AC and at bedtime with sliding scale, 4. Physical deconditioning ? Requested for PT OT eval and social worker health services to assist with discharge planning 5. COPD ? Not in exacerbation Marilyn treatment as needed 6. Allergic rhinitis 7. Hypertension ? Blood pressure controlled, home medications continued with dose adjustment as needed 8. Hyperkalemia ? Resolved 9. Dyslipidemia ?Patient is on statin therapy, continued at home dose 10. Paroxysmal atrial fibrillation ? Rate controlled on metoprolol and amiodarone and on systemic anticoagulation with apixaban 11. Chronic left lower extremity ulcer ? Patient was seen in consultation by wound care nurse plan is for patient to follow-up at the wound care center for subsequent care 12. Obstructive sleep apnea ? Consistent use of PAP therapy encouraged Time spent in the patient's overall evaluation,decision-making process, review of diagnostic data, adjustment of management, discussion with other providers, nursing nursing and ancillary staff involved in patient's care documentation,38 Minutes Charges/Coding Visit Charges Inpatient E&M: 78673 Subs Hosp L2
--- NOTE | 2025-09-26 15:59 | WOUNDNOTE ---
wound photo: left medial ankle
--- NOTE | 2025-09-26 15:59 | WOUNDNOTE ---
wound photo: left lateral lower leg/ankle
[2025-09-26] MEDS: Insulin Glargine-YFGN 100 UNIT/ML Pen 10 UNIT SC (20:15)
[2025-09-26] MEDS: Senna/Docusate Sodium 1 Tablet 2 TABLET PO (20:57)
[2025-09-27] VITALS (11 sets, daily range): BP systolic 136–166; BP diastolic 57–75; PULSE 65–72; RESP 16–18; TEMP 35.8–36.6; O2SAT 84–100; BMI 29.0
--- NOTE | 2025-09-27 07:43 | PCM.PN.HOSP ---
Reason for Visit Chief Complaint: Low BS. Subjective Subjective Patient seen plan is for patient to be assessed for home oxygen prior to patient being discharged Objective Data Objective Data Vital Signs: Vital Signs Temp Pulse Resp BP Pulse Ox O2 Del Method O2 Flow Rate 97.8 F 69 18 166/75 H 93 Nasal Cannula 5 09/27/25 02:40 09/27/25 07:01 09/27/25 07:01 09/27/25 02:40 09/27/25 07:01 09/27/25 07:01 09/27/25 07:01 Oxygen Flow Rate (L/min) 5 Oxygen Delivery Method Nasal Cannula Weight: 83.9 kg Body Mass Index (BMI) 29.0 Intake & Output: Intake and Output for Last 24 Hours 09/25/25 09/26/25 09/27/25 23:59 23:59 23:59 Intake Total 200 / 200 750 / 750 Balance 200 / 200 750 / 750 Lab / Micro Data 09/24/25 05:54 09/24/25 05:54 Labs: Laboratory Results - last 24 hr 09/26/25 11:47: POC Glucose 242 H 09/26/25 16:53: POC Glucose 227 H 09/26/25 20:14: POC Glucose 167 H 09/27/25 06:42: POC Glucose 134 H Micro: Microbiology 09/23/25 15:25 Urine Catheter - Catheter Urine Culture - Final Presumptive E. coli Physical Exam Narrative GENERAL: cooperative HEENT: Atraumatic; normocephalic EYES; Anicteric, Normal Conjunctiva NECK; supple, normal thyroid, RESPIRATORY: Diminished to auscultation CARDIOVASCULAR: Regular S1 S2, GI: soft, normoactive bowel sounds, : No Renal angle tenderness; EXTREMITIES: Chronic wound involving the left lower extremity MUSCULOSKELETAL: no muscle wasting NEURO: Awake; no lateralizing signs. SKIN: No Rash PSYCH; Flat affect Assessment & Plan Assessment/Plan (1) UTI (urinary tract infection): PLAN: Plan Patient is a 80-year-old female who presented to the emergency department with low blood glucose and foul-smelling urine was found to have UTI on admission 1. Acute cystitis with pansensitive E. coli ? Patient management broad-spectrum antibiotic therapy de-escalated to ceftriaxone 2. Hypoglycemia ? Patient long-acting insulin held on admission, placed on Accu-Cheks AC and at bedtime with sliding scale coverage 3. Diabetes mellitus type 2 ? Patient presented with hypoglycemia her long-acting insulin as well as oral agents held placed on Accu-Cheks AC and at bedtime with sliding scale, 4. Physical deconditioning ? Requested for PT OT eval and social work assistant to assist with discharge planning 5. Chronic hypoxic respiratory failure secondary to COPD ? Not in exacerbation Marilyn treatment as needed ? 09/27/2025; plan is for patient to be assessed for oxygen needs prior to making discharge decision 6. Allergic rhinitis ? Patient is on montelukast 7. Hypertension ? Blood pressure controlled, home medications continued with dose adjustment as needed 8. Hyperkalemia ? Resolved 9. Dyslipidemia ?Patient is on statin therapy, continued at home dose 10. Paroxysmal atrial fibrillation ? Rate controlled on metoprolol and amiodarone and on systemic anticoagulation with apixaban 11. Chronic left lower extremity ulcer ? Patient was seen in consultation by wound care nurse plan is for patient to follow-up at the wound care center for subsequent care 12. Obstructive sleep apnea ? Consistent use of PAP therapy encouraged Charges/Coding Visit Charges Inpatient E&M: 39201 Subs Hosp L2
[2025-09-27] MEDS: Ensure Plus High Protein 120 ML LIQUID PO ×3 (09:24→17:01)
[2025-09-27] MEDS: Senna/Docusate Sodium 1 Tablet 2 TABLET PO ×2 (09:25→21:54)
[2025-09-27] MEDS: APIXABAN 5 MG TABLET PO ×2 (09:26→21:54)
[2025-09-27] MEDS: Insulin Glargine-YFGN 100 UNIT/ML Pen 10 UNIT SC (21:56)
[2025-09-28] VITALS (9 sets, daily range): BP systolic 131–155; BP diastolic 53–64; PULSE 64–70; RESP 16–18; TEMP 35.8–37; O2SAT 92–100; BMI 29.1
--- NOTE | 2025-09-28 10:31 | PN.HOSP_ITS ---
Reason for Visit Chief Complaint: Low BS. Subjective Subjective Seen still remains dyspneic at rest.. Ordered chest x-ray, proBNP to evaluate patient persistent hypoxia Objective Data Objective Data Vital Signs: Vital Signs Temp Pulse Resp BP Pulse Ox O2 Del Method O2 Flow Rate 96.4 F L 65 16 155/57 H 94 Nasal Cannula 4 09/28/25 04:20 09/28/25 06:39 09/28/25 06:39 09/28/25 04:20 09/28/25 06:39 09/28/25 07:44 09/28/25 07:44 Oxygen Flow Rate (L/min) 4 Oxygen Delivery Method Nasal Cannula Weight: 84.4 kg Body Mass Index (BMI) 29.1 Intake & Output: Intake and Output for Last 24 Hours 09/26/25 09/27/25 09/28/25 23:59 23:59 23:59 Intake Total 750 / 750 1010 / 1310 500 / 500 Balance 750 / 750 1010 / 1310 500 / 500 Lab / Micro Data 09/24/25 05:54 09/24/25 05:54 Labs: Laboratory Results - last 24 hr 09/27/25 11:19: POC Glucose 246 H 09/27/25 16:57: POC Glucose 181 H 09/27/25 21:51: POC Glucose 185 H 09/28/25 06:37: POC Glucose 125 H Micro: Microbiology 09/23/25 15:25 Urine Catheter - Catheter Urine Culture - Final Presumptive E. coli Physical Exam Narrative GENERAL: cooperative HEENT: Atraumatic; normocephalic EYES; Anicteric, Normal Conjunctiva NECK; supple, normal thyroid, RESPIRATORY: Diminished to auscultation CARDIOVASCULAR: Regular S1 S2, GI: soft, normoactive bowel sounds, : No Renal angle tenderness; EXTREMITIES: Chronic wound involving the left lower extremity MUSCULOSKELETAL: no muscle wasting NEURO: Awake; no lateralizing signs. SKIN: No Rash PSYCH; Flat affect Assessment & Plan Assessment/Plan (1) UTI (urinary tract infection): PLAN: Plan Patient is a 80-year-old female who presented to the emergency department with low blood glucose and foul-smelling urine was found to have UTI on admission 1. Acute cystitis with pansensitive E. coli ? Patient management broad-spectrum antibiotic therapy de-escalated to ceftriaxone 2. Hypoglycemia ? Patient long-acting insulin held on admission, placed on Accu-Cheks AC and at bedtime with sliding scale coverage 3. Diabetes mellitus type 2 ? Patient presented with hypoglycemia her long-acting insulin as well as oral agents held placed on Accu-Cheks AC and at bedtime with sliding scale, 4. Physical deconditioning ? Requested for PT OT eval and secondary social studies teacher to assist with discharge planning 5. Acute on chronic chronic hypoxic respiratory failure secondary to COPD ? Not in exacerbation bronchodilator treatment as needed ? 09/27/2025; plan is for patient to be assessed for oxygen needs prior to making discharge decision ? 09/28/2025; patient remains significantly dyspneic requiring almost up to 8 to 9 L with ambulation. Subsequently ordered proBNP chest x-ray to evaluate patient persistent hypoxia 6. Allergic rhinitis ? Patient is on montelukast 7. Hypertension ? Blood pressure controlled, home medications continued with dose adjustment as needed 8. Hyperkalemia ? Resolved 9. Dyslipidemia ?Patient is on statin therapy, continued at home dose 10. Paroxysmal atrial fibrillation ? Rate controlled on metoprolol and amiodarone and on systemic anticoagulation with apixaban 11. Chronic left lower extremity ulcer ? Patient was seen in consultation by wound care nurse plan is for patient to follow-up at the wound care center for subsequent care 12. Obstructive sleep apnea ? Consistent use of PAP therapy encouraged Time spent in the patient's overall evaluation,decision-making process, review of diagnostic data, adjustment of management, discussion with other providers, nursing nursing and ancillary staff involved in patient's care documentation, 38 Minutes Charges/Coding Visit Charges Inpatient E&M: 95272 [facility] Hosp L2
[2025-09-28] MEDS: APIXABAN 5 MG TABLET PO ×2 (10:58→20:54)
[2025-09-28] MEDS: Senna/Docusate Sodium 1 Tablet 2 TABLET PO ×2 (10:59→20:55)
[2025-09-28] MEDS: Ensure Plus High Protein 120 ML LIQUID PO (11:01)
[2025-09-28 11:10] LABS: Hematocrit 27.3 % (37-47); Hemoglobin 8.4 g/dL (12.0-15.0); Mean Corp Hgb Conc 30.8 g/dL (32-36); Mean Corpuscular Volume 99.3 fL (81-99); Mean Platelet Vol. 9.4 fl (6.2-12.0); Platelet Count 187 K/mm3 (150-450); RBC Distribution Width CV 14.6 % (11.6-14.6); RBC Distribution Width SD 52.8 fl (35.1-43.9); Red Blood Count 2.75 M/mm3 (4.2-5.4); White Blood Count 7.7 K/mm3 (4.4-11.0)
[2025-09-28 12:06] LABS: Pro- Brain NATRIURETIC PEPTIDE 6492 pg/mL (<=1800)
[2025-09-28 12:12] LABS: AST(SGOT) 14 U/L (<=31); Alanine Aminotransfer ALT/SGPT 7 U/L (<=34); Albumin, Serum 3.1 g/dL (3.4-4.8); Alkaline Phosphatase 63 U/L (35-104); Anion Gap 8 (5-15); BUN 55 mg/dL (4-19); BUN/Creat Ratio 34.1 RATIO (10-20); Calcium,Total 9.0 mg/dL (7.6-11.0); Carbon Dioxide 25.6 mmol/L (21.0-32.0); Chloride 101 mmol/L (98-108); Estimated Creatinine Clearance 31.83 ml/min (50-250); Globulin 3.4 g/dL (2.2-4.2); Glucose 280 mg/dL (70-99); Magnesium 1.8 mg/dL (1.5-2.2); Potassium 5.0 mmol/L (3.3-5.1)
--- NOTE | 2025-09-28 14:18 | RAD_ITS ---
PROCEDURE: CHEST PA AND LATERAL 09/28/2025 REASON FOR EXAM: DYSPNEA TECHNIQUE: Procedure Code: RADCXR Modality: DX Procedure: CHEST PA AND LATERAL COMPARISON: September 23, 2025. FINDINGS: Hardware: EKG electrodes are seen. Heart: Cardiomegaly. Mediastinum: Atherosclerotic calcification of the aortic arch. Lungs: Increasing left pleural effusion with left basilar atelectasis and/or infiltrate. Superimposed CHF. Bones: Degenerative changes are identified within the thoracic spine. RAD/Chest PA and Lateral IMPRESSION: CHF. Enlarging left pleural effusion with left basilar atelectasis and/or infiltrate . Reading Location: [id number]
[2025-09-29] VITALS (15 sets, daily range): BP systolic 133–179; BP diastolic 56–70; PULSE 62–76; RESP 16–20; TEMP 36.1–37; O2SAT 75–99; BMI 28.4
[2025-09-29 07:25] LABS: Hematocrit 28.4 % (37-47); Hemoglobin 8.7 g/dL (12.0-15.0); Immature Granulocytes Count 0.040 X10^3/uL (0.0-0.0); Mean Corp Hgb Conc 30.6 g/dL (32-36); Mean Corpuscular Volume 98.6 fL (81-99); Mean Platelet Vol. 9.7 fl (6.2-12.0); NRBC Flagged by Analyzer 0 % (0-5); Platelet Count 196 K/mm3 (150-450); RBC Distribution Width CV 14.5 % (11.6-14.6); RBC Distribution Width SD 52.2 fl (35.1-43.9); Red Blood Count 2.88 M/mm3 (4.2-5.4); White Blood Count 7.2 K/mm3 (4.4-11.0)
[2025-09-29 07:44] LABS: Anion Gap 8 (5-15); BUN 53 mg/dL (4-19); BUN/Creat Ratio 28.2 RATIO (10-20); Calcium,Total 8.8 mg/dL (7.6-11.0); Carbon Dioxide 27.6 mmol/L (21.0-32.0); Chloride 99 mmol/L (98-108); Estimated Creatinine Clearance 27.07 ml/min (50-250); Glucose 217 mg/dL (70-99); Potassium 5.1 mmol/L (3.3-5.1)
[2025-09-29] MEDS: APIXABAN 5 MG TABLET PO ×2 (09:26→21:36)
[2025-09-29] MEDS: Senna/Docusate Sodium 1 Tablet 2 TABLET PO ×2 (09:27→21:38)
--- NOTE | 2025-09-29 10:13 | PN.HOSP_ITS ---
Reason for Visit Chief Complaint: Low BS. Subjective Subjective . Did obtain chest x-ray given patient persistent hypoxia. Imaging studies did show Enlarging left pleural effusion with left basilar atelectasis and/or infiltrate.. Patient was also found to have markedly elevated proBNP patient subsequently started on diuretic therapy Objective Data Objective Data Vital Signs: Vital Signs Temp Pulse Resp BP Pulse Ox O2 Del Method O2 Flow Rate 98.4 F 73 16 133/56 H 97 Nasal Cannula 4 09/29/25 07:43 09/29/25 09:26 09/29/25 08:25 09/29/25 07:43 09/29/25 07:43 09/29/25 08:25 09/29/25 08:25 Oxygen Flow Rate (L/min) 4 Oxygen Delivery Method Nasal Cannula Weight: 82.4 kg Body Mass Index (BMI) 28.4 Intake & Output: Intake and Output for Last 24 Hours 09/27/25 09/28/25 09/29/25 23:59 23:59 23:59 Intake Total 1010 / 1310 1550 / 2050 500 / 500 Output Total 1000 / 1000 Balance 1010 / 1310 1550 / 1250 -500 / -500 Lab / Micro Data 09/29/25 06:37 09/29/25 06:37 Labs: Laboratory Results - last 24 hr 09/28/25 10:55: WBC 7.7, RBC 2.75 L, Hgb 8.4 L, Hct 27.3 L, MCV 99.3 H, MCH 30.5, MCHC 30.8 L, RDW Std Deviation 52.8 H, RDW Coeff of Tessa 14.6, Plt Count 187, MPV 9.4, Sodium 134, Potassium 5.0, Chloride 101, Carbon Dioxide 25.6, Anion Gap 8, BUN 55 H, Creatinine 1.60 H, Estim Creat Clear Calc 31.83 L, Est GFR (MDRD) Non-Af 33 L, BUN/Creatinine Ratio 34.1 H, Glucose 280 H, Calcium 9.0, Phosphorus 3.1, Magnesium 1.8, Total Bilirubin 0.17, AST 14, ALT 7, Alkaline Phosphatase 63, NT pro BNP II 6492 H, Total Protein 6.5, Albumin 3.1 L, Globulin 3.4, Albumin/Globulin Ratio 0.9 09/28/25 11:08: POC Glucose 280 H 09/28/25 16:44: POC Glucose 203 H 09/28/25 21:00: POC Glucose 130 H 09/29/25 06:29: POC Glucose 210 H 09/29/25 06:37: WBC 7.2, RBC 2.88 L, Hgb 8.7 L, Hct 28.4 L, MCV 98.6, MCH 30.2, MCHC 30.6 L, RDW Std Deviation 52.2 H, RDW Coeff of Tessa 14.5, Plt Count 196, MPV 9.7, Immature Gran % (Auto) 0.600, Neut % (Auto) 75.4 H, Lymph % (Auto) 13.3 L, Noble % (Auto) 7.6, Eos % (Auto) 2.8, Baso % (Auto) 0.3, Absolute Neuts (auto) 5.4, Absolute Lymphs (auto) 0.96, Nucleated RBC % 0, Sodium 135, Potassium 5.1, Chloride 99, Carbon Dioxide 27.6, Anion Gap 8, BUN 53 H, Creatinine 1.86 H, E stim Creat Clear Calc 27.07 L, Est GFR (MDRD) Non-Af 27 L, BUN/Creatinine Ratio 28.2 H, Glucose 217 H, Calcium 8.8 Micro: Microbiology 09/23/25 15:25 Urine Catheter - Catheter Urine Culture - Final Presumptive E. coli Radiography Diagnostic Testing: Radiology Impression Chest X-Ray 09/28/25 14:18 IMPRESSION: CHF. Enlarging left pleural effusion with left basilar atelectasis and/or infiltrate. Reading Location: [facility] Physical Exam Narrative GENERAL: cooperative HEENT: Atraumatic; normocephalic EYES; Anicteric, Normal Conjunctiva NECK; supple, normal thyroid, RESPIRATORY: Diminished to auscultation CARDIOVASCULAR: Regular S1 S2, GI: soft, normoactive bowel sounds, : No Renal angle tenderness; EXTREMITIES: Chronic wound involving the left lower extremity MUSCULOSKELETAL: no muscle wasting NEURO: Awake; no lateralizing signs. SKIN: No Rash PSYCH; Flat affect Assessment & Plan Assessment/Plan (1) UTI (urinary tract infection): PLAN: Plan Patient is a 80-year-old female who presented to the emergency department with low blood glucose and foul-smelling urine was found to have UTI on admission 1. Acute cystitis with pansensitive E. coli ? Patient management broad-spectrum antibiotic therapy de-escalated to ceftriaxone ? 09/29/2025; discontinued ceftriaxone patient started on cefdinir 2. Hypoglycemia ? Patient long-acting insulin held on admission, placed on Accu-Cheks AC and at bedtime with sliding scale coverage 3. Diabetes mellitus type 2 ? Patient presented with hypoglycemia her long-acting insulin as well as oral agents held placed on Accu-Cheks AC and at bedtime with sliding scale, 4. Physical deconditioning ? Requested for PT OT eval and director of social services to assist with discharge planning 5. Acute on chronic chronic hypoxic respiratory failure secondary to COPD ? Not in exacerbation bronchodilator treatment as needed ? 09/27/2025; plan is for patient to be assessed for oxygen needs prior to making discharge decision ? 09/28/2025; patient remains significantly dyspneic requiring almost up to 8 to 9 L with ambulation. Subsequently ordered proBNP chest x-ray to evaluate patient persistent hypoxia ? 09/29/2025 chest x-ray did show Enlarging left pleural effusion with left basilar atelectasis and/or infiltrate. 6. Acute on chronic congestive heart failure with preserved ejection fraction 2D echo from 07/22/2025 did show Mild concentric left ventricular hypertrophy. The left ventricular ejection fraction is 70 %. Stage 1 diastolic dysfunction. The left atrium is moderately enlarged. Mild mitral annular calcification. P atient was started on Lasix placed on strict input and output with daily weights and low-sodium diet. Responding to treatment 7. Anemia ? Secondary to chronic disorder monitoring H&H and transfuse if patient becomes symptomatic or hemoglobin falls below 7 8. Hyperkalemia ? Resolved 9. Dyslipidemia ?Patient is on statin therapy, continued at home dose 10. Paroxysmal atrial fibrillation ? Rate controlled on metoprolol and amiodarone and on systemic anticoagulation with apixaban 11. Chronic left lower extremity ulcer ? Patient was seen in consultation by wound care nurse plan is for patient to follow-up at the wound care center for subsequent care 12. Obstructive sleep apnea ? Consistent use of PAP therapy encouraged 13. Allergic rhinitis ? Patient is on montelukast 14. Hypertension ? Blood pressure controlled, home medications continued with dose adjustment as needed Time spent in the patient's overall evaluation,decision-making process, review of diagnostic data, adjustment of management, discussion with other providers, nursing nursing and ancillary staff involved in patient's care documentation, 40 Minutes Charges/Coding Visit Charges Inpatient E&M: 29463 Subs Hosp L2
--- NOTE | 2025-09-29 11:58 | CT_ITS ---
PROCEDURE: CHEST WITHOUT CONTRAST 09/29/2025 REASON FOR EXAM: PLUERAL EFFUSION TECHNIQUE: CT chest was performed without IV contrast. Multiplanar reformats were generated. One or more dose reduction techniques were used (e.g., Automated exposure control, adjustment of the mA and/or kV according to patient size, use of iterative reconstruction technique RADIATION DOSE SUMMARY: CTDlvol: 14.57 mGy DLP: 629.79 mGycm COMPARISON: 07/22/2025 FINDINGS: Note that evaluation of the vasculature, ninfa, and soft tissues is limited in the absence of IV contrast. Heart/pericardium: Severe three-vessel coronary atherosclerosis and/or stents. Trace to mild aortic and mitral annular calcification. Mildly hypodense blood pool, suggesting anemia. Aorta: [id number] calcific atherosclerosis. Pulmonary arteries: Enlarged central pulmonary arteries may suggest pulmonary arterial hypertension.. Lymph nodes: Mediastinal lymphadenopathy. Reference precarinal node, 17 mm short axis. Reference subcarinal node, 23 mm short axis.. Reference AP window node, 20 mm short axis. Borderline RIGHT supraclavicular node, 10 mm short axis. Lungs/pleura: Moderate LEFT pleural effusion. Adjacent airspace disease may reflect compressive atelectasis and/or pneumonia. Emphysema.. 14 x 7 mm irregular nodular opacity LEFT upper lobe (series 2, image 70). Airways: Unremarkable. Chest wall: Subcentimeter LEFT lobe thyroid nodule. Atrophic RIGHT lobe of the thyroid. Upper abdomen: Suboptimally evaluated. Atherosclerosis. Percutaneous gastrostomy. Musculoskeletal: Demineralization. Similar L1 compression deformity. Mild degenerative findings. Cervicothoracic dextroscoliosis may be positional. Old LEFT rib fractures. Other: Included face and neck not well evaluated due to large field of view, oblique positioning, and partial visualization. Absence of all maxillary and mandibular teeth. CT/Chest without Contrast IMPRESSION: 1. Moderate LEFT pleural effusion. Adjacent airspace disease may reflect compr essive atelectasis and/or pneumonia. 2. Mediastinal lymphadenopathy, nonspecific and potentially reactive in the abs ence of known malignancy. Borderline RIGHT supraclavicular node. Correlate with medical history and follow-up as indicate d. 3. Emphysema with irregular LEFT upper lobe nodule 10.5 mm average axial diamet er. Recommend CT chest in 3 months, outpatient PET/CT, or outpatient tissue sampling per the Fleischner guidelines for pulmona ry nodule follow-up, presuming no history of known malignancy or immunosuppression in which case these guidelines cannot be applie d. 4. Additional description as above. Reading Location: [id number]
[2025-09-29] MEDS: Ensure Plus High Protein 120 ML LIQUID PO ×2 (13:54→17:18)
[2025-09-29] MEDS: Insulin Glargine-YFGN 100 UNIT/ML Pen 10 UNIT SC (21:48)
[2025-09-30] VITALS (10 sets, daily range): BP systolic 145–152; BP diastolic 58–70; PULSE 64–82; RESP 16–20; TEMP 36.4–36.7; O2SAT 94–100; BMI 28.1
[2025-09-30 07:06] LABS: Hematocrit 27.7 % (37-47); Hemoglobin 8.5 g/dL (12.0-15.0); Immature Granulocytes Count 0.050 X10^3/uL (0.0-0.0); Mean Corp Hgb Conc 30.7 g/dL (32-36); Mean Corpuscular Volume 97.5 fL (81-99); Mean Platelet Vol. 9.7 fl (6.2-12.0); NRBC Flagged by Analyzer 0 % (0-5); Platelet Count 206 K/mm3 (150-450); RBC Distribution Width CV 14.0 % (11.6-14.6); RBC Distribution Width SD 50.0 fl (35.1-43.9); Red Blood Count 2.84 M/mm3 (4.2-5.4); White Blood Count 9.4 K/mm3 (4.4-11.0)
[2025-09-30 07:37] LABS: Anion Gap 9 (5-15); BUN 61 mg/dL (4-19); BUN/Creat Ratio 27.3 RATIO (10-20); Calcium,Total 8.8 mg/dL (7.6-11.0); Carbon Dioxide 29.0 mmol/L (21.0-32.0); Chloride 95 mmol/L (98-108); Estimated Creatinine Clearance 22.38 ml/min (50-250); Glucose 260 mg/dL (70-99); Potassium 4.5 mmol/L (3.3-5.1)
--- NOTE | 2025-09-30 07:47 | PCM.PN.HOSP ---
Reason for Visit Chief Complaint: Low BS. Subjective Subjective Patient seen oxygen requirement remains high currently on 5 L, CT of the chest obtained in January for subsequent evaluation demonstrated moderate left-sided pleural effusion and order was placed for patient to undergo CT-guided thoracentesis Objective Data Objective Data Vital Signs: Vital Signs Temp Pulse Resp BP Pulse Ox O2 Del Method O2 Flow Rate 98.0 F 69 16 147/64 H 94 Nasal Cannula 5 09/30/25 02:30 09/30/25 06:31 09/30/25 06:31 09/30/25 02:30 09/30/25 06:31 09/30/25 06:31 09/30/25 06:31 Oxygen Flow Rate (L/min) 5 Oxygen Delivery Method Nasal Cannula Weight: 81.6 kg Body Mass Index (BMI) 28.1 Intake & Output: Intake and Output for Last 24 Hours 09/28/25 09/29/25 09/30/25 23:59 23:59 23:59 Intake Total 1550 / 2050 900 / 1500 600 / 600 Output Total 1350 / 1350 450 / 450 Balance 1550 / 1250 -450 / 150 150 / 150 Lab / Micro Data 09/30/25 06:36 09/30/25 06:36 Labs: Laboratory Results - last 24 hr 09/29/25 11:17: POC Glucose 253 H 09/29/25 16:27: POC Glucose 354 H 09/29/25 21:45: POC Glucose 377 H 09/30/25 06:01: POC Glucose 239 H 09/30/25 06:36: WBC 9.4, RBC 2.84 L, Hgb 8.5 L, Hct 27.7 L, MCV 97.5, MCH 29.9, MCHC 30.7 L, RDW Std Deviation 50.0 H, RDW Coeff of Tessa 14.0, Plt Count 206, MPV 9.7, Immature Gran % (Auto) 0.500, Neut % (Auto) 85.4 H, Lymph % (Auto) 9.2 L, Cooper % (Auto) 4.8, Eos % (Auto) 0.0, Baso % (Auto) 0.1, Absolute Neuts (auto) 8.0 H, Absolute Lymphs (auto) 0.87, Nucleated RBC % 0, Sodium 134, Potassium 4.5, Chloride 95 L, Carbon Dioxide 29.0, Anion Gap 9, BUN 61 H, Creatinine 2.24 H, Estim Creat Clear Calc 22.38 L, Est GFR (MDRD) Non-Af 22 L, BUN/Creatinine Ratio 27.3 H, Glucose 260 H, Calcium 8.8 Micro: Microbiology 09/23/25 15:25 Urine Catheter - Catheter Urine Culture - Final Presumptive E. coli Radiography Diagnostic Testing: Radiology Impression Chest CT 09/29/25 11:58 IMPRESSION: 1. Moderate LEFT pleural effusion. Adjacent airspace disease may reflect compressive atelectasis and/or pneumonia. 2. Mediastinal lymphadenopathy, nonspecific and potentially reactive in the absence of known malignancy. Borderline RIGHT supraclavicular node. Correlate with medical history and follow-up as indicated. 3. Emphysema with irregular LEFT upper lobe nodule 10.5 mm average axial diameter. Recommend CT chest in 3 months, outpatient PET/CT, or outpatient tissue sampling per the Fleischner guidelines for pulmonary nodule follow-up, presuming no history of known malignancy or immunosuppression in which case these guidelines cannot be applied. 4. Additional description as above. Reading Location: [facility] Physical Exam Narrative GENERAL: cooperative HEENT: Atraumatic; normocephalic EYES; Anicteric, Normal Conjunctiva NECK; supple, normal thyroid, RESPIRATORY: Diminished to auscultation CARDIOVASCULAR: Regular S1 S2, GI: soft, normoactive bowel sounds, : No Renal angle tenderness; EXTREMITIES: Chronic wound involving the left lower extremity MUSCULOSKELETAL: no muscle wasting NEURO: Awake; no lateralizing signs. SKIN: No Rash PSYCH; Flat affect Assessment & Plan Assessment/Plan (1) UTI (urinary tract infection): PLAN: Plan Patient is a 80-year-old female who presented to the emergency department with low blood glucose and foul-smelling urine was found to have UTI on admission 1. Acute cystitis with pansensitive E. coli ? Patient management broad-spectrum antibiotic therapy de-escalated to ceftriaxone ? 09/29/2025; discontinued ceftriaxone patient started on cefdinir 2. Hypoglycemia ? Patient long-acting insulin held on admission, placed on Accu-Cheks AC and at bedtime with sliding scale coverage 3. Diabetes mellitus type 2 ? Patient presented with hypoglycemia her long-acting insulin as well as oral agents held placed on Accu-Cheks AC and at bedtime with sliding scale, 4. Physical deconditioning ? Requested for PT OT eval and manager social responsibility to assist with discharge planning 5. Acute on chronic chronic hypoxic respiratory failure secondary to COPD ? Not in exacerbation bronchodilator treatment as needed ? 09/27/2025; plan is for patient to be assessed for oxygen needs prior to making discharge decision ? 09/28/2025; patient remains significantly dyspneic requiring almost up to 8 to 9 L with ambulation. Subsequently ordered proBNP chest x-ray to evaluate patient persistent hypoxia ? 09/29/2025 chest x-ray did show Enlarging left pleural effusion with left basilar atelectasis and/or infiltrate. ? 09/30/2025 Patient seen oxygen requirement remains high currently on 5 L, CT of the chest obtained in January for subsequent evaluation demonstrated moderate left-sided pleural effusion and order was placed for patient to undergo CT-guided thoracentesis 6. Acute on chronic congestive heart failure with preserved ejection fraction 2D echo from 07/22/2025 did show Mild concentric left ventricular hypertrophy. The left ventricular ejection fraction is 70 %. Stage 1 diastolic dysfunction. The left atrium is moderately enlarged. Mild mitral annular calcification. Patient was started on Lasix placed on strict input and output with daily weights and low-sodium diet. Responding to treatment 7. Moderate left-sided pleural effusion ? CT obtained demonstrated moderate left-sided pleural effusion with adjacent airspace disease compressive atelectasis versus pneumonia. An order was given for patient to undergo CT-guided thoracocentesis 8. Abnormal CT CT of the chest obtained on 09/29/2025 as part of evaluation of patient persistent hypoxia demonstrated 1. Moderate LEFT pleural effusion. Adjacent airspace disease may reflect compressive atelectasis and/or pneumonia. 2. Mediastinal lymphadenopathy, nonspecific and potentially reactive in the absence of known malignancy. Borderline RIGHT supraclavicular node. Correlate with medical history and follow-up as indicated. 3. Emphysema with irregular LEFT upper lobe nodule 10.5 mm average axial diameter. Recommend CT chest in 3 months, outpatient PET/CT, or outpatient tissue sampling per the Fleischner guidelines for pulmonary nodule follow-up, presuming no history of known malignancy or immunosuppression in which case these guidelines cannot be applied. ? Patient to undergo CT-guided thoracocentesis as discussed above. Patient was also informed of the result with plans for patient to undergo repeat CT of the chest in 3 months regarding the lymphadenopathy 9. Anemia ? Secondary to chronic disorder monitoring H&H and transfuse if patient becomes symptomatic or hemoglobin falls below 7 10. Hyperkalemia ? Resolved 11. Dyslipidemia ?Patient is on statin therapy, continued at home dose 12. Paroxysmal atrial fibrillation ? Rate controlled on metoprolol and amiodarone and on systemic anticoagulation with apixaban 13 Chronic left lower extremity ulcer ? Patient was seen in consultation by wound care nurse plan is for patient to follow-up at the wound care center for subsequent care 14. Obstructive sleep apnea ? Consistent use of PAP therapy encouraged 15. Allergic rhinitis ? Patient is on montelukast 16. Hypertension ? Blood pressure controlled, home medications continued with dose adjustment as needed 17. DVT prophylaxis ? Patient is on apixaban Time spent in the patient's overall evaluation,decision-making process, review of diagnostic data, adjustment of management, discussion with other providers, nursing nursing and ancillary staff involved in patient's care documentation, 45 Minutes Charges/Coding Visit Charges Inpatient E&M: 62209 Subs Hosp L2
[2025-09-30 08:34] LABS: LDH 152 U/L (84-246)
[2025-09-30] MEDS: APIXABAN 5 MG TABLET PO ×2 (08:46→21:55)
[2025-09-30] MEDS: Senna/Docusate Sodium 1 Tablet 2 TABLET PO ×2 (08:48→21:54)
[2025-09-30] MEDS: Ensure Plus High Protein 120 ML LIQUID PO (08:53)
--- NOTE | 2025-09-30 14:13 | CASEMGMT ---
MIRZA HODGES updated by nursing that patient will be here through the weekend and getting thoracentesis on Friday as she was on . MIRZA HODGES updated [facility]. MIRZA HODGES in to discuss discharge planning with patient. Patent did well with therapy and plan is to return home with resumption of [facility], will monitor for increase in home oxygen at discharge. MIRZA HODGES called daughter Abi and updated regarding discharge plan and that patient be here through the weekend.
[2025-09-30] MEDS: Insulin Glargine-YFGN 100 UNIT/ML Pen 10 UNIT SC (21:52)
[2025-10-01] VITALS (13 sets, daily range): BP systolic 141–157; BP diastolic 55–63; PULSE 60–70; RESP 16–20; TEMP 36.1–36.8; O2SAT 78–98; BMI 28.0
[2025-10-01 06:32] LABS: Hematocrit 27.5 % (37-47); Hemoglobin 8.6 g/dL (12.0-15.0); Immature Granulocytes Count 0.050 X10^3/uL (0.0-0.0); Mean Corp Hgb Conc 31.3 g/dL (32-36); Mean Corpuscular Volume 95.5 fL (81-99); Mean Platelet Vol. 10.0 fl (6.2-12.0); NRBC Flagged by Analyzer 0 % (0-5); Platelet Count 207 K/mm3 (150-450); RBC Distribution Width CV 13.8 % (11.6-14.6); RBC Distribution Width SD 48.3 fl (35.1-43.9); Red Blood Count 2.88 M/mm3 (4.2-5.4); White Blood Count 9.5 K/mm3 (4.4-11.0)
[2025-10-01 06:59] LABS: Anion Gap 10 (5-15); BUN 72 mg/dL (4-19); BUN/Creat Ratio 33.3 RATIO (10-20); Calcium,Total 8.8 mg/dL (7.6-11.0); Carbon Dioxide 28.8 mmol/L (21.0-32.0); Chloride 95 mmol/L (98-108); Estimated Creatinine Clearance 23.29 ml/min (50-250); Glucose 231 mg/dL (70-99); Potassium 4.5 mmol/L (3.3-5.1)
[2025-10-01] MEDS: Senna/Docusate Sodium 1 Tablet 2 TABLET PO ×2 (10:33→22:45)
--- NOTE | 2025-10-01 11:11 | PCM.PN.HOSP ---
Reason for Visit Chief Complaint: Low BS. Subjective Subjective Plan was for patient to have undergone ultrasound-guided thoracocentesis as part of management of her pleural effusion contributing to her significant dyspnea however with patient being on apixaban the procedure was postponed to 10/03/2025 Objective Data Objective Data Vital Signs: Vital Signs Temp Pulse Resp BP Pulse Ox O2 Del Method O2 Flow Rate 98.3 F 64 18 141/55 H 88 Nasal Cannula 4 10/01/25 09:30 10/01/25 11:04 10/01/25 11:04 10/01/25 10:36 10/01/25 09:57 10/01/25 09:30 10/01/25 10:32 Oxygen Flow Rate (L/min) 4 Oxygen Delivery Method Nasal Cannula Weight: 81.4 kg Body Mass Index (BMI) 28.0 Intake & Output: Intake and Output for Last 24 Hours 09/29/25 09/30/25 10/01/25 23:59 23:59 23:59 Intake Total 900 / 1500 1640 / 1640 Output Total 1350 / 1350 1850 / 1850 650 / 650 Balance -450 / 150 -210 / -210 -650 / -650 Lab / Micro Data 10/01/25 05:15 10/01/25 05:15 Labs: Laboratory Results - last 24 hr 09/30/25 12:00: POC Glucose 244 H 09/30/25 16:24: POC Glucose 458 H* 09/30/25 21:51: POC Glucose 228 H 10/01/25 05:15: WBC 9.5, RBC 2.88 L, Hgb 8.6 L, Hct 27.5 L, MCV 95.5, MCH 29.9, MCHC 31.3 L, RDW Std Deviation 48.3 H, RDW Coeff of Tessa 13.8, Plt Count 207, MPV 10.0, Immature Gran % (Auto) 0.500, Neut % (Auto) 86.3 H, Lymph % (Auto) 9.3 L, [place]field % (Auto) 3.8, Eos % (Auto) 0.0, Baso % (Auto) 0.1, Absolute Neuts (auto) 8.2 H, Absolute Lymphs (auto) 0.88, Nucleated RBC % 0, Sodium 133, Potassium 4.5, Chloride 95 L, Carbon Dioxide 28.8, Anion Gap 10, BUN 72 H, Creatinine 2.15 H, Estim Creat Clear Calc 23.29 L, Est GFR (MDRD) Non-Af 23 L, BUN/Creatinine Ratio 33.3 H, Glucose 231 H, Calcium 8.8 10/01/25 06:20: POC Glucose 214 H Micro: Microbiology 09/23/25 15:25 Urine Catheter - Catheter Urine Culture - Final Presumptive E. coli Physical Exam Narrative GENERAL: cooperative HEENT: Atraumatic; normocephalic EYES; Anicteric, Normal Conjunctiva NECK; supple, normal thyroid, RESPIRATORY: Diminished to auscultation CARDIOVASCULAR: Regular S1 S2, GI: soft, normoactive bowel sounds, : No Renal angle tenderness; EXTREMITIES: Chronic wound involving the left lower extremity MUSCULOSKELETAL: no muscle wasting NEURO: Awake; no lateralizing signs. SKIN: No Rash PSYCH; Flat affect Assessment & Plan Assessment/Plan (1) UTI (urinary tract infection): PLAN: Plan Patient is a 80-year-old female who presented to the emergency department with low blood glucose and foul-smelling urine was found to have UTI on admission 1. Acute cystitis with pansensitive E. coli ? Patient management broad-spectrum antibiotic therapy de-escalated to ceftriaxone ? 09/29/2025; discontinued ceftriaxone patient started on cefdinir 2. Hypoglycemia ? Patient long-acting insulin held on admission, placed on Accu-Cheks AC and at bedtime with sliding scale coverage 3. Diabetes mellitus type 2 ? Patient presented with hypoglycemia her long-acting insulin as well as oral agents held placed on Accu-Cheks AC and at bedtime with sliding scale, 4. Physical deconditioning ? Requested for PT OT eval and social welfare administrator to assist with discharge planning 5. Acute on chronic chronic hypoxic respiratory failure secondary to COPD ? Not in exacerbation bronchodilator treatment as needed ? 09/27/2025; plan is for patient to be assessed for oxygen needs prior to making discharge decision ? 09/28/2025; patient remains significantly dyspneic requiring almost up to 8 to 9 L with ambulation. Subsequently ordered proBNP chest x-ray to evaluate patient persistent hypoxia ? 09/29/2025 chest x-ray did show Enlarging left pleural effusion with left basilar atelectasis and/or infiltrate. ? 09/30/2025 Patient seen oxygen requirement remains high currently on 5 L, CT of the chest obtained in January for subsequent evaluation demonstrated moderate left-sided pleural effusion and order was placed for patient to undergo CT-guided thoracentesis 6. Acute on chronic congestive heart failure with preserved ejection fraction 2D echo from 07/22/2025 did show Mild concentric left ventricular hypertrophy. The left ventricular ejection fraction is 70 %. Stage 1 diastolic dysfunction. The left atrium is moderately enlarged. Mild mitral annular calcification. Patient was started on Lasix placed on strict input and output with daily weights and low-sodium diet. Responding to treatment 7. Moderate left-sided pleural effusion ? CT obtained demonstrated moderate left-sided pleural effusion with adjacent airspace disease compressive atelectasis versus pneumonia. An order was given for patient to undergo CT-guided thoracocentesis ? 10/01/2025; patient ultrasound-guided thoracocentesis postponed to 10/03/2025 after patient apixaban has been held for at least 4 doses. Patient clinical condition has however improved repeated checks x-ray to see if patient warrants undergoing CT-guided thoracentesis 8. Abnormal CT CT of the chest obtained on 09/29/2025 as part of evaluation of patient persistent hypoxia demonstrated 1. Moderate LEFT pleural effusion. Adjacent airspace disease may reflect compressive atelectasis and/or pneumonia. 2. Mediastinal lymphadenopathy, nonspecific and potentially reactive in the absence of known malignancy. Borderline RIGHT supraclavicular node. Correlate with medical history and follow-up as indicated. 3. Emphysema with irregular LEFT upper lobe nodule 10.5 mm average axial diameter. Recommend CT chest in 3 months, outpatient PET/CT, or outpatient tissue sampling per the Fleischner guidelines for pulmonary nodule follow-up, presuming no history of known malignancy or immunosuppression in which case these guidelines cannot be applied. ? Patient to undergo CT-guided thoracocentesis as discussed above. Patient was also informed of the result with plans for patient to undergo repeat CT of the chest in 3 months regarding the lymphadenopathy 9. Anemia ? Secondary to chronic disorder monitoring H&H and transfuse if patient becomes symptomatic or hemoglobin falls below 7 10. Hyperkalemia ? Resolved 11. Dyslipidemia ?Patient is on statin therapy, continued at home dose 12. Paroxysmal atrial fibrillation ? Rate controlled on metoprolol and amiodarone and on systemic anticoagulation with apixaban 13 Chronic left lower extremity ulcer ? Patient was seen in consultation by wound care nurse plan is for patient to follow-up at the wound care center for subsequent care 14. Obstructive sleep apnea ? Consistent use of PAP therapy encouraged 15. Allergic rhinitis ? Patient is on montelukast 16. Hypertension ? Blood pressure controlled, home medications continued with dose adjustment as needed 17. DVT prophylaxis ? Patient is on apixaban Time spent in the patient's overall evaluation,decision-making process, review of diagnostic data, adjustment of management, discussion with other providers, nursing nursing and ancillary staff involved in patient's care documentation, 38 Minutes Charges/Coding Visit Charges Inpatient E&M: 92754 Subs Hosp L2
[2025-10-01] MEDS: Ensure Plus High Protein 120 ML LIQUID PO (11:50)
--- NOTE | 2025-10-01 13:29 | RAD_ITS ---
EXAM: XR Chest, 1 View CLINICAL INDICATION: DYSPNEA TECHNIQUE: Frontal view of the chest. COMPARISON: No relevant prior studies available. FINDINGS: LUNGS AND PLEURAL SPACES: Left basilar atelectasis or pneumonia. Left pleural effusion. HEART: Cardiomegaly with mild congestion. MEDIASTINUM: Unremarkable. Normal mediastinal contour. BONES/JOINTS: Unremarkable. No acute fracture. RAD/Chest PA and Lateral IMPRESSION: 1. Left basilar atelectasis or pneumonia. 2. Cardiomegaly with mild congestion. 3. Left pleural effusion. Reading Location: [id number]
[2025-10-01] MEDS: Insulin Glargine-YFGN 100 UNIT/ML Pen 10 UNIT SC (22:45)
[2025-10-02] VITALS (9 sets, daily range): BP systolic 143–158; BP diastolic 58–61; PULSE 65–69; RESP 16–18; TEMP 36.6–36.7; O2SAT 94–99; BMI 28.2
--- NOTE | 2025-10-02 09:08 | PCM.PN.HOSP ---
Reason for Visit Chief Complaint: Low BS. Subjective Subjective Attempted discharge patient the day prior was once again unsuccessful. Chest x-ray demonstrated left basilar atelectasis/pneumonia as well as cardiomegaly with mild congestion and left pleural effusion. Patient is scheduled to undergo ultrasound-guided thoracentesis on 10/03/2025 Objective Data Objective Data Vital Signs: Vital Signs Temp Pulse Resp BP Pulse Ox O2 Del Method O2 Flow Rate 97.9 F 65 16 158/61 H 94 Nasal Cannula 4 10/02/25 03:47 10/02/25 07:11 10/02/25 07:11 10/02/25 03:47 10/02/25 07:11 10/02/25 07:11 10/02/25 07:11 Oxygen Flow Rate (L/min) 4 Oxygen Delivery Method Nasal Cannula Weight: 81.8 kg Body Mass Index (BMI) 28.2 Intake & Output: Intake and Output for Last 24 Hours 09/30/25 10/01/25 10/02/25 23:59 23:59 23:59 Intake Total 1640 / 1640 600 / 600 Output Total 1850 / 1850 1350 / 1350 Balance -210 / -210 -750 / -750 Lab / Micro Data 10/01/25 05:15 10/01/25 05:15 Labs: Laboratory Results - last 24 hr 10/01/25 11:43: POC Glucose 217 H 10/01/25 16:30: POC Glucose 384 H 10/01/25 22:38: POC Glucose 414 H 10/02/25 06:36: POC Glucose 250 H Micro: Microbiology 09/23/25 15:25 Urine Catheter - Catheter Urine Culture - Final Presumptive E. coli Radiography Diagnostic Testing: Radiology Impression Chest X-Ray 10/01/25 13:29 IMPRESSION: 1. Left basilar atelectasis or pneumonia. 2. Cardiomegaly with mild congestion. 3. Left pleural effusion. Reading Location: [facility] Physical Exam Narrative GENERAL: cooperative HEENT: Atraumatic; normocephalic EYES; Anicteric, Normal Conjunctiva NECK; supple, normal thyroid, RESPIRATORY: Diminished to auscultation CARDIOVASCULAR: Regular S1 S2, GI: soft, normoactive bowel sounds, : No Renal angle tenderness; EXTREMITIES: Chronic wound involving the left lower extremity MUSCULOSKELETAL: no muscle wasting NEURO: Awake; no lateralizing signs. SKIN: No Rash PSYCH; Flat affect Const alert and no apparent distress HEENT head/scalp atraumatic and moist oral mucous membranes Resp normal respiratory effort, no retractions, no use of accessory muscles and clear to auscultation bilaterally Cardio regular rate, regular rhythm, S1 normal heart sound and S2 normal heart sound GI normal to inspection, nondistended, normoactive bowel sounds and soft to palpation Extremity Extremity Narrative: superficial ulcerations on left ankle w/o surrounding erythema. Assessment & Plan Assessment/Plan (1) UTI (urinary tract infection): PLAN: Plan Patient is a 80-year-old female who presented to the emergency department with low blood glucose and foul-smelling urine was found to have UTI on admission 1. Acute on chronic chronic hypoxic respiratory failure secondary to COPD ? Not in exacerbation bronchodilator treatment as needed ? 09/27/2025; plan is for patient to be assessed for oxygen needs prior to making discharge decision ? 09/28/2025; patient remains significantly dyspneic requiring almost up to 8 to 9 L with ambulation. Subsequently ordered proBNP chest x-ray to evaluate patient persistent hypoxia ? 09/29/2025 chest x-ray did show Enlarging left pleural effusion with left basilar atelectasis and/or infiltrate. ? 09/30/2025 Patient seen oxygen requirement remains high currently on 5 L, CT of the chest obtained in January for subsequent evaluation demonstrated moderate left-sided pleural effusion and order was placed for patient to undergo CT-guided thoracentesis ? 10/02/2025;Attempt at dischargethe day prior was once again unsuccessful. Checks x-ray demonstrated left basilar atelectasis/pneumonia as well as cardiomegaly with mild congestion and left pleural effusion. Patient is scheduled to undergo ultrasound-guided thoracentesis on 10/03/2025 2. Acute on chronic congestive heart failure with preserved ejection fraction 2D echo from 07/22/2025 did show Mild concentric left ventricular hypertrophy. The left ventricular ejection fraction is 70 %. Stage 1 diastolic dysfunction. The left atrium is moderately enlarged. Mild mitral annular calcification. Patient was started on Lasix placed on strict input and output with daily weights and low-sodium diet. Responding to treatment 2. Moderate left-sided pleural effusion ? CT obtained demonstrated moderate left-sided pleural effusion with adjacent airspace disease compressive atelectasis versus pneumonia. An order was given for patient to undergo CT-guided thoracocentesis ? 10/01/2025; patient ultrasound-guided thoracocentesis postponed to 10/03/2025 after patient apixaban has been held for at least 4 doses. Patient clinical condition has however improved repeated checks x-ray to see if patient warrants undergoing CT-guided thoracentesis 4. Abnormal CT CT of the chest obtained on 09/29/2025 as part of evaluation of patient persistent hypoxia demonstrated 1. Moderate LEFT pleural effusion. Adjacent airspace disease may reflect compressive atelectasis and/or pneumonia. 2. Mediastinal lymphadenopathy, nonspecific and potentially reactive in the absence of known malignancy. Borderline RIGHT supraclavicular node. Correlate with medical history and follow-up as indicated. 3. Emphysema with irregular LEFT upper lobe nodule 10.5 mm average axial diameter. Recommend CT chest in 3 months, outpatient PET/CT, or outpatient tissue sampling per the Fleischner guidelines for pulmonary nodule follow-up, presuming no history of known malignancy or immunosuppression in which case these guidelines cannot be applied. -Patient to undergo CT-guided thoracocentesis as discussed above. Patient was also informed of the result with plans for patient to undergo repeat CT of the chest in 3 months regarding the lymphadenopathy 5. Acute cystitis with pansensitive E. coli ? Patient management broad-spectrum antibiotic therapy de-escalated to ceftriaxone ? 09/29/2025; discontinued ceftriaxone patient started on cefdinir 6. Hypoglycemia ? Patient long-acting insulin held on admission, placed on Accu-Cheks AC and at bedtime with sliding scale coverage 7. Diabetes mellitus type 2 ? Patient presented with hypoglycemia her long-acting insulin as well as oral agents held placed on Accu-Cheks AC and at bedtime with sliding scale, 8. Physical deconditioning ? Requested for PT OT eval and director of social services to assist with discharge planning 9. Anemia ? Secondary to chronic disorder monitoring H&H and transfuse if patient becomes symptomatic or hemoglobin falls below 7 10. Hyperkalemia ? Resolved 11. Dyslipidemia ?Patient is on statin therapy, continued at home dose 12. Paroxysmal atrial fibrillation ? Rate controlled on metoprolol and amiodarone and on systemic anticoagulation with apixaban 13 Chronic left lower extremity ulcer ? Patient was seen in consultation by wound care nurse plan is for patient to follow-up at the wound care center for subsequent care 14. Obstructive sleep apnea ? Consistent use of PAP therapy encouraged 15. Allergic rhinitis ? Patient is on montelukast 16. Hypertension ? Blood pressure controlled, home medications continued with dose adjustment as needed 17. DVT prophylaxis ? Patient is on apixaban Time spent in the patient's overall evaluation,decision-making process, review of diagnostic data, adjustment of management, discussion with other providers, nursing nursing and ancillary staff involved in patient's care documentation, 36 Minutes Charges/Coding Visit Charges Inpatient E&M: 77382 Subs Hosp L2
[2025-10-02] MEDS: Senna/Docusate Sodium 1 Tablet 2 TABLET PO ×2 (10:04→21:03)
[2025-10-02] MEDS: 0.9% Saline Lock 10 ML Syringe IV (10:07)
[2025-10-02] MEDS: Ensure Plus High Protein 120 ML LIQUID PO (10:12)
[2025-10-02] MEDS: Insulin Glargine-YFGN 100 UNIT/ML Pen 10 UNIT SC (21:04)
[2025-10-03] VITALS (14 sets, daily range): BP systolic 137–183; BP diastolic 55–79; PULSE 59–68; RESP 14–20; TEMP 36.4–36.6; O2SAT 94–100; BMI 27.7
[2025-10-03] MEDS: 0.9% Saline Lock 10 ML Syringe IV (03:00)
--- NOTE | 2025-10-03 06:00 | US_ITS ---
PROCEDURE: THORACENTESIS W US 10/03/2025 REASON FOR EXAM: LEFT-SIDED PLEURAL EFFUSION Diagnostic thoracentesis. TECHNIQUE: THORACENTESIS W US COMPARISON: PA and lateral chest dated 10/01/2025. FINDINGS: Informed consent was obtained by the nurse practitioner, Deana Padron. The patient was prepped and draped in the usual sterile fashion. Anesthetic: Lidocaine 2% was utilized for local anesthesia. Catheter: 5F, 10 cm in length ONE 1 STEP Centesis Catheter. Drained fluid: 910 mL. Fluid color: Yellow. Fluid clarity: Cloudy. Fluid disposition: Sent to laboratory for appropriate testing. US/Thoracentesis W US IMPRESSION: Successful diagnostic left thoracentesis. Reading Location: [place] [address]
--- NOTE | 2025-10-03 07:20 | PN.HOSP_ITS ---
Reason for Visit Chief Complaint: Low BS. Subjective Subjective Patient seen appears comfortable at rest. Plan is for patient to undergo ultrasound-guided thoracocentesis. Patient will be assessed for possible discharge following the procedure with a 6-minute oxygen walk as well as chest x-ray Objective Data Objective Data Vital Signs: Vital Signs Temp Pulse Resp BP Pulse Ox O2 Del Method O2 Flow Rate 97.6 F L 59 L 16 159/62 H 100 Nasal Cannula 2 10/03/25 02:58 10/03/25 02:58 10/03/25 02:58 10/03/25 02:58 10/03/25 02:58 10/03/25 02:58 10/03/25 02:58 Oxygen Flow Rate (L/min) 2 Oxygen Delivery Method Nasal Cannula Weight: 80.4 kg Body Mass Index (BMI) 27.7 Intake & Output: Intake and Output for Last 24 Hours 10/01/25 10/02/25 10/03/25 23:59 23:59 23:59 Intake Total 600 / 600 600 / 600 Output Total 1350 / 1350 Balance -750 / -750 600 / 600 Lab / Micro Data 10/01/25 05:15 10/01/25 05:15 Labs: Laboratory Results - last 24 hr 10/02/25 11:28: POC Glucose 243 H 10/02/25 16:25: POC Glucose 360 H 10/02/25 21:00: POC Glucose 338 H 10/03/25 06:07: POC Glucose 225 H Micro: Microbiology 09/23/25 15:25 Urine Catheter - Catheter Urine Culture - Final Presumptive E. coli Physical Exam Narrative GENERAL: cooperative HEENT: Atraumatic; normocephalic EYES; Anicteric, Normal Conjunctiva NECK; supple, normal thyroid, RESPIRATORY: Diminished to auscultation CARDIOVASCULAR: Regular S1 S2, GI: soft, normoactive bowel sounds, : No Renal angle tenderness; EXTREMITIES: Chronic wound involving the left lower extremity MUSCULOSKELETAL: no muscle wasting NEURO: Awake; no lateralizing signs. SKIN: No Rash PSYCH; Flat affect Assessment & Plan Assessment/Plan (1) UTI (urinary tract infection): PLAN: Plan Patient is a 80-year-old female who presented to the emergency department with low blood glucose and foul-smelling urine was found to have UTI on admission 1. Acute on chronic chronic hypoxic respiratory failure secondary to COPD ? Not in exacerbation bronchodilator treatment as needed ? 09/27/2025; plan is for patient to be assessed for oxygen needs prior to making discharge decision ? 09/28/2025; patient remains significantly dyspneic requiring almost up to 8 to 9 L with ambulation. Subsequently ordered proBNP chest x-ray to evaluate patient persistent hypoxia ? 09/29/2025 chest x-ray did show Enlarging left pleural effusion with left basilar atelectasis and/or infiltrate. ? 09/30/2025 Patient seen oxygen requirement remains high currently on 5 L, CT of the chest obtained in January for subsequent evaluation demonstrated moderate left-sided pleural effusion and order was placed for patient to undergo CT- guided thoracentesis ? 10/02/2025;Attempt at dischargethe day prior was once again unsuccessful. Checks x-ray demonstrated left basilar atelectasis/pneumonia as well as cardiomegaly with mild congestion and left pleural effusion. Patient is scheduled to undergo ultrasound-guided thoracentesis on 10/03/2025 ? 10/02/2025;Plan is for patient to undergo ultrasound-guided thoracocentesis. Patient will be assessed for possible discharge following the procedure with a 6-minute oxygen walk as well as chest x-ray 2. Acute on chronic congestive heart failure with preserved ejection fraction 2D echo from 07/22/2025 did show Mild concentric left ventricular hypertrophy. The left ventricular ejection fraction is 70 %. Stage 1 diastolic dysfunction. The left atrium is moderately enlarged. Mild mitral annular calcification. P atient was started on Lasix placed on strict input and output with daily weights and low-sodium diet. Responding to treatment 2. Moderate left-sided pleural effusion ? CT obtained demonstrated moderate left-sided pleural effusion with adjacent airspace disease compressive atelectasis versus pneumonia. An order was given for patient to undergo CT-guided thoracocentesis ? 10/01/2025; patient ultrasound-guided thoracocentesis postponed to 10/03/2025 after patient apixaban has been held for at least 4 doses. Patient clinical condition has however improved repeated checks x-ray to see if patient warrants undergoing CT-guided thoracentesis 4. Abnormal CT CT of the chest obtained on 09/29/2025 as part of evaluation of patient persistent hypoxia demonstrated 1. Moderate LEFT pleural effusion. Adjacent airspace disease may reflect compressive atelectasis and/or pneumonia. 2. Mediastinal lymphadenopathy, nonspecific and potentially reactive in the absence of known malignancy. Borderline RIGHT supraclavicular node. Correlate with medical history and follow-up as indicated. 3. Emphysema with irregular LEFT upper lobe nodule 10.5 mm average axial diameter. Recommend CT chest in 3 months, outpatient PET/CT, or outpatient tissue sampling per the Fleischner guidelines for pulmonary nodule follow-up, presuming no history of known malignancy or immunosuppression in which case these guidelines cannot be applied . -Patient to undergo CT-guided thoracocentesis as discussed above. Patient was also informed of the result with plans for patient to undergo repeat CT of the chest in 3 months regarding the lymphadenopathy 5. Acute cystitis with pansensitive E. coli ? Patient management broad-spectrum antibiotic therapy de-escalated to ceftriaxone ? 09/29/2025; discontinued ceftriaxone patient started on cefdinir 6. Hypoglycemia ? Patient long-acting insulin held on admission, placed on Accu-Cheks AC and at bedtime with sliding scale coverage 7. Diabetes mellitus type 2 ? Patient presented with hypoglycemia her long-acting insulin as well as oral agents held placed on Accu-Cheks AC and at bedtime with sliding scale, 8. Physical deconditioning ? Requested for PT OT eval and social media community manager to assist with discharge planning 9. Anemia ? Secondary to chronic disorder monitoring H&H and transfuse if patient becomes symptomatic or hemoglobin falls below 7 10. Hyperkalemia ? Resolved 11. Dyslipidemia ?Patient is on statin therapy, continued at home dose 12. Paroxysmal atrial fibrillation ? Rate controlled on metoprolol and amiodarone and on systemic anticoagulation with apixaban 13 Chronic left lower extremity ulcer ? Patient was seen in consultation by wound care nurse plan is for patient to follow-up at the wound care center for subsequent care 14. Obstructive sleep apnea ? Consistent use of PAP therapy encouraged 15. Allergic rhinitis ? Patient is on montelukast 16. Hypertension ? Blood pressure controlled, home medications continued with dose adjustment as needed 17. DVT prophylaxis ? Patient is on apixaban Time spent in the patient's overall evaluation,decision-making process, review of diagnostic data, adjustment of management, discussion with other providers, nursing nursing and ancillary staff involved in patient's care documentation, 35 Minutes Charges/Coding Visit Charges Inpatient E&M: 71357 Subs Hosp L2
[2025-10-03] MEDS: Ensure Plus High Protein 120 ML LIQUID PO ×2 (08:39→11:35)
[2025-10-03] MEDS: Senna/Docusate Sodium 1 Tablet 2 TABLET PO ×2 (08:42→22:16)
[2025-10-03] MEDS: Lidocaine 2% (20 ml mdv) 20 ML Vial INFILT (10:04)
--- NOTE | 2025-10-03 10:11 | FLU_PTH ---
PATIENT: WING LIN LOC: [facility] U#:[id number] AGE/SX: 80/F ROOM: [facility] RE09/23/[address]: Dr. Jonel Lorenzo MD : 1945 BED: 1 DIS: 10/04/2025 SPEC #: [id number] RECD: 10/03/25 10:24 STATUS: MARK REGeremias #: [id number] WILLIAM: 10/03/25 10:[address]: Jonel Lorenzo DEPT: CYTOLOGY RECD BY: Jerardo Ashley ENTERED: 10/03/25 12:03 SP TYPE: Fluid OTHR DR: MD Dr. Santos Bonilla, DO TAYLOR TAYLOR, [employer] DEVELOPER-C Tissues: A - Pleural fluid, NOS Procedures: Special Stain Group II Surgery Specimen Level IV Cytospin Fluid HEADER OPERATION: US guided thoracentesis, left PRE-OP DIAGNOSIS: Pleural effusion TISSUE SUBMITTED: A. Thoracentesis fluid DIAGNOSIS CYTOLOGY A. Left pleural effusion, thoracentesis (cytospin, cellblock): - No malignant cells identified. CYTOLOGY STUDY Slides are reviewed. CYTOLOGY GROSS A. Received is 83 ml of cloudy orange red fluid labeled with the patient's name and and designated per the requisition as Thoracentesis fluid. Submitted for cytology and cell block preparation. 10/03/2025 CPT: 09588, 39695
--- NOTE | 2025-10-03 10:20 | RAD_ITS ---
PROCEDURE: CHEST INSP/EXP 2 VIEW 10/03/2025 REASON FOR EXAM: POST THORACENTESIS TECHNIQUE: Procedure Code: [id number] Modality: DX Procedure: CHEST INSP/EXP 2 VIEW COMPARISON: October 01, 2025 FINDINGS: Portable AP upright inspiration and expiration views were provided. Pleural fluid volume on the left has decreased following thoracentesis. No significant pneumothorax is seen. Continued subsegmental atelectasis left lung base. The appearance of the heart and mediastinum is unchanged. RAD/Chest Insp/Exp 2 View IMPRESSION: No pneumothorax status post thoracentesis. Decreased pleural fluid volume. At electasis left lung base. Reading Location: [id number]
--- NOTE | 2025-10-03 10:21 | PCM.OPRPT ---
Procedures Radiology Radiology US Procedures: 88335 Thoracentesis Operative Report (Standard) Operative Information Date of Procedure: 10/03/25 Pre-Operative Diagnosis: Left pleural effusion Post-Operative Diagnosis: Left pleural effusion Surgery/Procedure Performed: Ultrasound-guided thoracentesis administrative specialist: No Type of Anesthesia: Local Procedure Start Time: 09:56 Procedure Stop Time: 10:18 Select all DRAINS/GRAFTS/IMPLANTS that apply: None Estimated Blood Loss: 0 Specimen collected: Yes Description of specimen(s) removed: 100 mL of cloudy yellow fluid Description of surgery: PROCEDURE: Ultrasound Guided Thoracentesis, left ORDERING PROVIDER: Dr. Lorenzo INDICATION: Female, 80 years old. Left pleural effusion. PROVIDER: MARISABEL Patterson PROCEDURE: The risks, benefits, and alternatives to the procedure were explained to the patient. The specific risks of bleeding, infection, and pneumothorax requiring chest tube insertion were discussed and accepted. Her Eliquis has been on hold x 4 doses. Written informed consent was obtained. The patient was placed in the sitting, upright position. Ultrasonographic evaluation of the bilateral lower pleural spaces was carried out. An adequate pocket was identified in the left lower pleural space. The overlying skin was prepped with chlorhexidine and draped in sterile fashion. 2 % lidocaine was administered subcutaneously for local anesthesia. Under ultrasound guidance, a 5-[place] thoracentesis needle/catheter system was advanced into the left posterior lower pleural fluid collection. 910 ml of cloudy yellow colored fluid was drained. A sample was sent to the lab for diagnostic purposes. The catheter was removed, and a sterile dressing was applied. The patient tolerated the procedure well without any immediate complications. A chest x-ray was ordered. There was no evidence of pneumothorax. Patient was transported back to her her inpatient room. IMPRESSION: Successful ultrasound guided thoracentesis of left pleural effusion. Surgical Findings: None Complications Complications: No
[2025-10-03 11:10] LABS: Body Fluid Mononuclear WBC # 0.229 10^3/uL; Body Fluid Mononuclear WBC % 80.3 %; Body Fluid Polynuclear WBC # 0.056 10^3/uL; Body Fluid Polynuclear WBC % 19.7 %; Red Cell Count/Body Fluid 0.006 10^6/ul; White Blood Count/Body Fluid 0.285 10^3/uL
[2025-10-03 11:26] LABS: Appearance/Body Fluid CLOUDY; Auto B Fluid Analyzer BKGD Ct COUNTS W/IN LIMITS (W/IN LIMITS); Color/Body Fluid LT YEL; Source- Body Fluid THORACENTESIS
[2025-10-03 11:47] LABS: Neutrophil (Segs) 29 %
[2025-10-03 11:52] LABS: Body Fluid QC Type(s) BF1Q
[2025-10-03 11:55] LABS: Glucose, Body Fluid 220 mg/dL (Not Establ.)
[2025-10-03 14:43] LABS: Pathologist Comment/Body Fluid Reviewed
[2025-10-03] MEDS: Glucerna Shake 120 ML LIQUID PO (16:57)
[2025-10-03] MEDS: APIXABAN 5 MG TABLET PO (22:16)
[2025-10-03] MEDS: Insulin Glargine-YFGN 100 UNIT/ML Pen 10 UNIT SC (22:18)
[2025-10-04 01:49] VITALS: BMI 27.8
[2025-10-04 05:42] VITALS: BP 161/68; PULSE 64; RESP 18; TEMP 36.3; O2SAT 100
--- NOTE | 2025-10-04 07:23 | PCM.PN.HOSP ---
Reason for Visit Chief Complaint: Low BS. Subjective Subjective Patient seen was assessed for home oxygen did require 5 L flow with activity and 4 at rest. Patient will be discharged home Objective Data Objective Data Vital Signs: Vital Signs Temp Pulse Resp BP Pulse Ox O2 Del Method O2 Flow Rate 97.4 F L 64 18 161/68 H 100 Nasal Cannula 4 10/04/25 05:42 10/04/25 05:42 10/04/25 05:42 10/04/25 05:42 10/04/25 05:42 10/04/25 05:42 10/04/25 05:42 Oxygen Flow Rate (L/min) 4 Oxygen Delivery Method Nasal Cannula Weight: 80.6 kg Body Mass Index (BMI) 27.8 Intake & Output: Intake and Output for Last 24 Hours 10/02/25 10/03/25 10/04/25 23:59 23:59 23:59 Intake Total 600 / 600 1040 / 1400 360 / 360 Output Total 910 / 910 Balance 600 / 600 130 / 490 360 / 360 Lab / Micro Data 10/04/25 09:03 10/04/25 09:03 Labs: Laboratory Results - last 24 hr 09/30/25 10:11: Fluid Glucose 220, Fluid LDH 84 10/03/25 10:11: Fluid Source THORACENTESIS, Fluid Color LT YEL, Fluid Appearance CLOUDY, Fluid WBC 0.285, Fluid RBC 0.006, Fluid Tot Cell Count 0.396 H, Fld Polynuclear WBCs # 0.056, Fld Polynuclear WBCs % 19.7, Fluid Mononuclear WBCs 0.229, Fld Mononuclear WBCs % 80.3, Fluid Neutrophils 29, Fluid Lymphocytes 32, Fluid Monocytes 6, Fluid Macrophages 25, Fld Mesothelial Cells 8, Fl Pathologist Comment Reviewed, Fluid Comment 2 SEE COMMENT 10/03/25 11:38: POC Glucose 223 H 10/03/25 16:50: POC Glucose 447 H 10/03/25 22:09: POC Glucose 287 H 10/04/25 05:50: POC Glucose 130 H Micro: Microbiology 09/23/25 15:25 Urine Catheter - Catheter Urine Culture - Final Presumptive E. coli Radiography Diagnostic Testing: Radiology Impression Chest X-Ray 10/03/25 10:20 IMPRESSION: No pneumothorax status post thoracentesis. Decreased pleural fluid volume. Atelectasis left lung base. Reading Location: [facility] Physical Exam Narrative GENERAL: cooperative HEENT: Atraumatic; normocephalic EYES; Anicteric, Normal Conjunctiva NECK; supple, normal thyroid, RESPIRATORY: Diminished to auscultation CARDIOVASCULAR: Regular S1 S2, GI: soft, normoactive bowel sounds, : No Renal angle tenderness; EXTREMITIES: Chronic wound involving the left lower extremity MUSCULOSKELETAL: no muscle wasting NEURO: Awake; no lateralizing signs. SKIN: No Rash PSYCH; Flat affect Assessment & Plan Assessment/Plan (1) UTI (urinary tract infection): PLAN: Plan Patient is a 80-year-old female who presented to the emergency department with low blood glucose and foul-smelling urine was found to have UTI on admission 1. Acute on chronic chronic hypoxic respiratory failure secondary to COPD ? Not in exacerbation bronchodilator treatment as needed ? 09/27/2025; plan is for patient to be assessed for oxygen needs prior to making discharge decision ? 09/28/2025; patient remains significantly dyspneic requiring almost up to 8 to 9 L with ambulation. Subsequently ordered proBNP chest x-ray to evaluate patient persistent hypoxia ? 09/29/2025 chest x-ray did show Enlarging left pleural effusion with left basilar atelectasis and/or infiltrate. ? 09/30/2025 Patient seen oxygen requirement remains high currently on 5 L, CT of the chest obtained in January for subsequent evaluation demonstrated moderate left-sided pleural effusion and order was placed for patient to undergo CT-guided thoracentesis ? 10/02/2025;Attempt at dischargethe day prior was once again unsuccessful. Checks x-ray demonstrated left basilar atelectasis/pneumonia as well as cardiomegaly with mild congestion and left pleural effusion. Patient is scheduled to undergo ultrasound-guided thoracentesis on 10/03/2025 ? 10/03/2025;Plan is for patient to undergo ultrasound-guided thoracocentesis. Patient will be assessed for possible discharge following the procedure with a 6-minute oxygen walk as well as chest x-ray 10/04/2025; patient underwent ultrasound-guided thoracentesis by interventional radiology with 19 mL of cloudy fluid taken off.. Per lights criteria patient fluid analysis was consistent with transudate possibly from CHF.Patient seen was assessed for home oxygen did require 5 L flow with activity and 4 at rest. Patient will be discharged home Patient seen was assessed for home oxygen did require 5 L flow with activity and 4 at rest. Patient will be discharged home 2. Acute on chronic congestive heart failure with preserved ejection fraction 2D echo from 07/22/2025 did show Mild concentric left ventricular hypertrophy. The left ventricular ejection fraction is 70 %. Stage 1 diastolic dysfunction. The left atrium is moderately enlarged. Mild mitral annular calcification. Patient was started on Lasix placed on strict input and output with daily weights and low-sodium diet. Responding to treatment 2. Moderate left-sided pleural effusion ? CT obtained demonstrated moderate left-sided pleural effusion with adjacent airspace disease compressive atelectasis versus pneumonia. An order was given for patient to undergo CT-guided thoracocentesis ? 10/01/2025; patient ultrasound-guided thoracocentesis postponed to 10/03/2025 after patient apixaban has been held for at least 4 doses. Patient clinical condition has however improved repeated checks x-ray to see if patient warrants undergoing CT-guided thoracentesis 4. Abnormal CT CT of the chest obtained on 09/29/2025 as part of evaluation of patient persistent hypoxia demonstrated 1. Moderate LEFT pleural effusion. Adjacent airspace disease may reflect compressive atelectasis and/or pneumonia. 2. Mediastinal lymphadenopathy, nonspecific and potentially reactive in the absence of known malignancy. Borderline RIGHT supraclavicular node. Correlate with medical history and follow-up as indicated. 3. Emphysema with irregular LEFT upper lobe nodule 10.5 mm average axial diameter. Recommend CT chest in 3 months, outpatient PET/CT, or outpatient tissue sampling per the Fleischner guidelines for pulmonary nodule follow-up, presuming no history of known malignancy or immunosuppression in which case these guidelines cannot be applied. -Patient to undergo CT-guided thoracocentesis as discussed above. Patient was also informed of the result with plans for patient to undergo repeat CT of the chest in 3 months regarding the lymphadenopathy 5. Acute cystitis with pansensitive E. coli ? Patient management broad-spectrum antibiotic therapy de-escalated to ceftriaxone ? 09/29/2025; discontinued ceftriaxone patient started on cefdinir 6. Hypoglycemia ? Patient long-acting insulin held on admission, placed on Accu-Cheks AC and at bedtime with sliding scale coverage 7. Diabetes mellitus type 2 ? Patient presented with hypoglycemia her long-acting insulin as well as oral agents held placed on Accu-Cheks AC and at bedtime with sliding scale, 8. Physical deconditioning ? Requested for PT OT eval and social worker masters to assist with discharge planning 9. Anemia ? Secondary to chronic disorder monitoring H&H and transfuse if patient becomes symptomatic or hemoglobin falls below 7 10. Hyperkalemia ? Resolved 11. Dyslipidemia ?Patient is on statin therapy, continued at home dose 12. Paroxysmal atrial fibrillation ? Rate controlled on metoprolol and amiodarone and on systemic anticoagulation with apixaban 13 Chronic left lower extremity ulcer ? Patient was seen in consultation by wound care nurse plan is for patient to follow-up at the wound care center for subsequent care 14. Obstructive sleep apnea ? Consistent use of PAP therapy encouraged 15. Allergic rhinitis ? Patient is on montelukast 16. Hypertension ? Blood pressure controlled, home medications continued with dose adjustment as needed 17. DVT prophylaxis ? Patient is on apixaban Time spent in the patient's overall evaluation,decision-making process, review of diagnostic data, adjustment of management, discussion with other providers, nursing nursing and ancillary staff involved in patient's care documentation, 35 Minutes
[2025-10-04 07:29] VITALS: PULSE 65; RESP 16; O2SAT 97
[2025-10-04 08:28] VITALS: O2SAT 88; O2SAT 89; O2SAT 97
--- NOTE | 2025-10-04 08:58 | WOUNDNOTE ---
wound photo: left lower leg
--- NOTE | 2025-10-04 08:58 | WOUNDNOTE ---
wound photo: left lower leg
--- NOTE | 2025-10-04 08:59 | WOUNDNOTE ---
wound photo: left lower leg
[2025-10-04 09:20] LABS: Hematocrit 31.3 % (37-47); Hemoglobin 9.9 g/dL (12.0-15.0); Immature Granulocytes Count 0.090 X10^3/uL (0.0-0.0); Mean Corp Hgb Conc 31.6 g/dL (32-36); Mean Corpuscular Volume 94.8 fL (81-99); Mean Platelet Vol. 9.5 fl (6.2-12.0); NRBC Flagged by Analyzer 0 % (0-5); Platelet Count 273 K/mm3 (150-450); RBC Distribution Width CV 13.9 % (11.6-14.6); RBC Distribution Width SD 48.4 fl (35.1-43.9); Red Blood Count 3.30 M/mm3 (4.2-5.4); White Blood Count 12.2 K/mm3 (4.4-11.0)
[2025-10-04 09:30] VITALS: BP 135/69; PULSE 66; RESP 14; TEMP 36.4; O2SAT 100
[2025-10-04] MEDS: APIXABAN 5 MG TABLET PO (09:32)
[2025-10-04 09:33] VITALS: BP 135/69; PULSE 66
[2025-10-04] MEDS: Senna/Docusate Sodium 1 Tablet 2 TABLET PO (09:34)
[2025-10-04 09:38] LABS: Anion Gap 11 (7-18); BUN 83 mg/dL (4-19); BUN/Creat Ratio 48.9 RATIO (10-20); Calcium,Total 9.0 mg/dL (7.6-11.0); Carbon Dioxide 27.8 mmol/L (20.0-29.0); Chloride 94 mmol/L (96-106); Estimated Creatinine Clearance 29.31 ml/min (50-250); Glucose 90 mg/dL (70-99); Magnesium 1.8 mg/dL (1.5-2.2); Potassium 4.8 mmol/L (3.5-5.1)
--- NOTE | 2025-10-04 09:50 | PCM.DC.SUM ---
Providers Date of Admission: 09/23/25 Date of Discharge: 10/04/25 Primary Care Physician: LILI STOREY Consultations 09/23/25 21:14 Consult: Onc/Wound/plastic finisher Routine Comment: Reason for Consult:: LLE ulcers Reason For Visit: UTI, HYPOGLYCEMIA Diagnosis Discharge Diagnosis (1) UTI (urinary tract infection): Status: Acute Code(s): N39.0 - Urinary tract infection, site not specified Plan Patient is a 80-year-old female who presented to the emergency department with low blood glucose and foul-smelling urine was found to have UTI on admission 1. Acute on chronic chronic hypoxic respiratory failure secondary to COPD ? Not in exacerbation bronchodilator treatment as needed ? 09/27/2025; plan is for patient to be assessed for oxygen needs prior to making discharge decision ? 09/28/2025; patient remains significantly dyspneic requiring almost up to 8 to 9 L with ambulation. Subsequently ordered proBNP chest x-ray to evaluate patient persistent hypoxia ? 09/29/2025 chest x-ray did show Enlarging left pleural effusion with left basilar atelectasis and/or infiltrate. ? 09/30/2025 Patient seen oxygen requirement remains high currently on 5 L, CT of the chest obtained in January for subsequent evaluation demonstrated moderate left-sided pleural effusion and order was placed for patient to undergo CT-guided thoracentesis ? 10/02/2025;Attempt at dischargethe day prior was once again unsuccessful. Checks x-ray demonstrated left basilar atelectasis/pneumonia as well as cardiomegaly with mild congestion and left pleural effusion. Patient is scheduled to undergo ultrasound-guided thoracentesis on 10/03/2025 ? 10/03/2025;Plan is for patient to undergo ultrasound-guided thoracocentesis. Patient will be assessed for possible discharge following the procedure with a 6-minute oxygen walk as well as chest x-ray 10/04/2025; patient underwent ultrasound-guided thoracentesis by interventional radiology with 19 mL of cloudy fluid taken off.. Per lights criteria patient fluid analysis was consistent with transudate possibly from CHF.Patient seen was assessed for home oxygen did require 5 L flow with activity and 4 at rest. Patient will be discharged home Patient seen was assessed for home oxygen did require 5 L flow with activity and 4 at rest. Patient will be discharged home 2. Acute on chronic congestive heart failure with preserved ejection fraction 2D echo from 07/22/2025 did show Mild concentric left ventricular hypertrophy. The left ventricular ejection fraction is 70 %. Stage 1 diastolic dysfunction. The left atrium is moderately enlarged. Mild mitral annular calcification. Patient was started on Lasix placed on strict input and output with daily weights and low-sodium diet. Responding to treatment 2. Moderate left-sided pleural effusion ? CT obtained demonstrated moderate left-sided pleural effusion with adjacent airspace disease compressive atelectasis versus pneumonia. An order was given for patient to undergo CT-guided thoracocentesis ? 10/01/2025; patient ultrasound-guided thoracocentesis postponed to 10/03/2025 after patient apixaban has been held for at least 4 doses. Patient clinical condition has however improved repeated checks x-ray to see if patient warrants undergoing CT-guided thoracentesis 4. Abnormal CT CT of the chest obtained on 09/29/2025 as part of evaluation of patient persistent hypoxia demonstrated 1. Moderate LEFT pleural effusion. Adjacent airspace disease may reflect compressive atelectasis and/or pneumonia. 2. Mediastinal lymphadenopathy, nonspecific and potentially reactive in the absence of known malignancy. Borderline RIGHT supraclavicular node. Correlate with medical history and follow-up as indicated. 3. Emphysema with irregular LEFT upper lobe nodule 10.5 mm average axial diameter. Recommend CT chest in 3 months, outpatient PET/CT, or outpatient tissue sampling per the Fleischner guidelines for pulmonary nodule follow-up, presuming no history of known malignancy or immunosuppression in which case these guidelines cannot be applied. -Patient to undergo CT-guided thoracocentesis as discussed above. Patient was also informed of the result with plans for patient to undergo repeat CT of the chest in 3 months regarding the lymphadenopathy 5. Acute cystitis with pansensitive E. coli ? Patient management broad-spectrum antibiotic therapy de-escalated to ceftriaxone ? 09/29/2025; discontinued ceftriaxone patient started on cefdinir 6. Hypoglycemia ? Patient long-acting insulin held on admission, placed on Accu-Cheks AC and at bedtime with sliding scale coverage 7. Diabetes mellitus type 2 ? Patient presented with hypoglycemia her long-acting insulin as well as oral agents held placed on Accu-Cheks AC and at bedtime with sliding scale, 8. Physical deconditioning ? Requested for PT OT eval and medical social consultant to assist with discharge planning 9. Anemia ? Secondary to chronic disorder monitoring H&H and transfuse if patient becomes symptomatic or hemoglobin falls below 7 10. Hyperkalemia ? Resolved 11. Dyslipidemia ?Patient is on statin therapy, continued at home dose 12. Paroxysmal atrial fibrillation ? Rate controlled on metoprolol and amiodarone and on systemic anticoagulation with apixaban 13 Chronic left lower extremity ulcer ? Patient was seen in consultation by wound care nurse plan is for patient to follow-up at the wound care center for subsequent care 14. Obstructive sleep apnea ? Consistent use of PAP therapy encouraged 15. Allergic rhinitis ? Patient is on montelukast 16. Hypertension ? Blood pressure controlled, home medications continued with dose adjustment as needed 17. DVT prophylaxis ? Patient is on apixaban Time spent in the patient's overall evaluation,decision-making process, review of diagnostic data, adjustment of management, discussion with other providers, nursing nursing and ancillary staff involved in patient's care documentation, 35 Minutes Medications at Discharge Home Medications cyanocobalamin (vitamin B-12) 1,000 mcg tablet (Vitamin B-12) 1,000 mg PO DAILY supplement 12/27/16 lovastatin 40 mg tablet 40 mg PO QHS cholesterol 12/27/16 montelukast 10 mg tablet 10 mg PO DAILY allergies 12/27/16 trazodone 150 mg tablet 150 mg PO QHS insomnia 12/27/16 albuterol sulfate 90 mcg/actuation aerosol inhaler (Ventolin HFA) 1 - 2 puff inhalation Q4H PRN PRN Sob &/Or Wheezing ##1 12/30/16 pioglitazone 30 mg tablet 30 mg PO DAILY@0800 diabetes 01/26/22 aripiprazole 10 mg tablet 10 mg PO DAILY mood 02/29/24 esomeprazole magnesium 40 mg capsule,delayed release 40 mg PO DAILY acid reflux 02/29/24 losartan 50 mg tablet 50 mg PO DAILY #30 tabs 03/03/24 cholecalciferol (vitamin D3) 125 mcg (5,000 unit) capsule 125 mcg PO DAILY supplement 07/23/25 IV with Additives 40 mls/hr GT 08/05/25 amiodarone 200 mg tablet 200 mg G-tube BID 30 days #60 tabs 08/05/25 apixaban 5 mg tablet (Eliquis) 5 mg G-tube BID 30 days #60 tabs 08/05/25 metoprolol tartrate 50 mg tablet 50 mg G-tube BID 30 days #60 tabs 08/05/25 acetaminophen 325 mg capsule 650 mg feeding tube Q6H PRN pain 08/19/25 bupropion HCl 100 mg tablet 100 mg G-tube BID mood 08/19/25 ipratropium bromide 17 mcg/actuation HFA aerosol inhaler (Atrovent HFA) 2 puff inhalation 4X/DAY inhaler 08/19/25 sodium chloride 1,000 mg soluble tablet 1,000 mg feeding tube BID supplement 08/19/25 BiPap See Rx Instructions .Route .COMPLEX #1 device 08/23/25 ferrous sulfate 325 mg (65 mg iron) tablet 325 mg PO BID supplement 08/23/25 insulin glargine 100 unit/mL subcutaneous solution (Lantus U-100 Insulin) 5 unit subcut DAILY insulin 08/23/25 insulin lispro 100 unit/mL subcutaneous half-unit pen 1 sliding scale dose subcut Q6H insulin 08/23/25 aripiprazole 10 mg tablet (Abilify) 10 mg PO DAILY mood 09/22/25 OXYGEN - Supplemental ([facility] INFORMATIONAL USE ONLY) hypoxia 09/24/25 furosemide 40 mg tablet 40 mg PO DAILY #60 tabs 10/04/25 guaifenesin 1,200 mg tablet, extended release 12 hr (Mucus Relief ER) 1,200 mg PO BID #30 tabs 10/04/25 Physical Exam Narrative GENERAL: cooperative HEENT: Atraumatic; normocephalic EYES; Anicteric, Normal Conjunctiva NECK; supple, normal thyroid, RESPIRATORY: Diminished to auscultation CARDIOVASCULAR: Regular S1 S2, GI: soft, normoactive bowel sounds, : No Renal angle tenderness; EXTREMITIES: Chronic wound involving the left lower extremity MUSCULOSKELETAL: no muscle wasting NEURO: Awake; no lateralizing signs. SKIN: No Rash PSYCH; Flat affect Weight / BMI Weight Weight: 80.6 kg Body Mass Index (BMI) 27.8 ABG / Lab / Microbiology Data 10/04/25 09:03 10/04/25 09:03 Laboratory: Laboratory Results - last 24 hr 09/30/25 10:11: Fluid Glucose 220, Fluid LDH 84 10/03/25 10:11: Fluid Source THORACENTESIS, Fluid Color LT YEL, Fluid Appearance CLOUDY, Fluid WBC 0.285, Fluid RBC 0.006, Fluid Tot Cell Count 0.396 H, Fld Polynuclear WBCs # 0.056, Fld Polynuclear WBCs % 19.7, Fluid Mononuclear WBCs 0.229, Fld Mononuclear WBCs % 80.3, Fluid Neutrophils 29, Fluid Lymphocytes 32, Fluid Monocytes 6, Fluid Macrophages 25, Fld Mesothelial Cells 8, Fl Pathologist Comment Reviewed, Fluid Comment 2 SEE COMMENT 10/03/25 11:38: POC Glucose 223 H 10/03/25 16:50: POC Glucose 447 H 10/03/25 22:09: POC Glucose 287 H 10/04/25 05:50: POC Glucose 130 H 10/04/25 08:05: POC Glucose 99 10/04/25 09:03: WBC 12.2 H, RBC 3.30 L, Hgb 9.9 L, Hct 31.3 L, MCV 94.8, MCH 30.0, MCHC 31.6 L, RDW Std Deviation 48.4 H, RDW Coeff of Tessa 13.9, Plt Count 273, MPV 9.5, Immature Gran % (Auto) 0.700, Neut % (Auto) 79.0 H, Lymph % (Auto) 12.7 L, [place] % (Auto) 7.2, Eos % (Auto) 0.2, Baso % (Auto) 0.2, Absolute Neuts (auto) 9.6 H, Absolute Lymphs (auto) 1.55, Nucleated RBC % 0, Sodium 134 L, Potassium 4.8, Chloride 94 L, Carbon Dioxide 27.8, Anion Gap 11, BUN 83 H, Creatinine 1.70 H, Estim Creat Clear Calc 29.31 L, Est GFR (MDRD) Non-Af 30 L, BUN/Creatinine Ratio 48.9 H, Glucose 90, Calcium 9.0, Phosphorus 2.8, Magnesium 1.8 Microbiology: Microbiology 09/23/25 15:25 Urine Catheter - Catheter Urine Culture - Final Presumptive E. coli Radiography Diagnostic Testing: Radiology Impression Chest X-Ray 10/03/25 10:20 IMPRESSION: No pneumothorax status post thoracentesis. Decreased pleural fluid volume. Atelectasis left lung base. Reading Location: [id number] Instructions DC O2, CPAP, BIPAP Needs Home O2 Discharge instructions: Yes Type of respiratory needs?: Oxygen Oxygen frequency: At rest (4) and With Ambulation Oxygen liters per minute during Ambulation: 5 DC home with Oxygen: Yes Home O2 MD Review: I have reviewed the oxygen testing, and the patient qualifies for home oxygen equipment and portability. The patient is mobile in the home and the community. Meaningful Use Info Meaningful Use Meaningful Use Diagnoses (Choose all that apply): CHF CHF MONICA/ARB ordered at discharge?: Yes Documented LVEF (%): 70 Discharge Plan Admission Admit Date/Time: 09/23/25 19:57 Attending Provider: Jonel Lorenzo Primary Care Provider: TAYLOR TAYLOR Consulting Providers: Marsha Rodríguez; Santos Martínez Instructions Patient Instructions: Urinary Tract Infections in Women, Hypoglycemia Tx Steps, ED Diabetic Insulin Reaction Additional Instructions / Restrictions: Follow-up with your primary care provider. Take all of your antibiotics. You are given your first dose here in the emergency department. Watch your blood sugars very closely. Make sure you check it the night before you go to bed. Better to let it run a little high than low. Especially before you go to bed. Return if feeling worse. Make sure you eat a snack before you go to sleep. Check your blood sugar first thing in the morning. Discharge Orders/Prescriptions Prescriptions: New furosemide 40 mg Tablet 40 mg PO DAILY Qty: 60 0RF guaifenesin [Mucus Relief ER] 1,200 mg Tablet Extended Release 12hr 1,200 mg PO BID Qty: 30 0RF Continued lovastatin 40 MG tablet 40 mg PO QHS Patient Comments: REDUCES CHOLESTEROL cyanocobalamin (vitamin B-12) [Vitamin B-12] 1,000 MCG tablet 1,000 mg PO DAILY Patient Comments: VITAMIN SUPPLEMENT trazodone 150 MG tablet 150 mg PO QHS Patient Comments: SLEEP montelukast 10 MG tablet 10 mg PO DAILY Patient Comments: ALLERGIES albuterol sulfate [Ventolin HFA] 1 INHALER inhaler 1 - 2 puff inhalation Q4H PRN PRN (Reason: Sob &/Or Wheezing) Qty: 1 0RF pioglitazone 30 MG tablet 30 mg PO DAILY@0800 esomeprazole magnesium 40 mg capsule,delayed release(DR/EC) 40 mg PO DAILY aripiprazole 10 mg tablet 10 mg PO DAILY losartan 50 mg tablet 50 mg PO DAILY Qty: 30 1RF aripiprazole [Abilify] 10 mg tablet 10 mg PO DAILY OXYGEN - Supplemental ([facility] INFORMATIONAL USE ONLY) Patient Comments: pt states she uses 5L @ home and gets it through [facility] cholecalciferol (vitamin D3) 125 mcg (5,000 unit) capsule 125 mcg PO DAILY amiodarone 200 mg Tablet 200 mg G-tube BID 30 Days Qty: 60 0RF metoprolol tartrate 50 mg Tablet 50 mg G-tube BID 30 Days Qty: 60 0RF Eliquis 5 mg Tablet 5 mg G-tube BID 30 Days Qty: 60 0RF IV with Additives Jevity 1.5 1000 ML 40 mls/hr GT Ordered By: Antoni Argueta DO Last Taken: Unknown sodium chloride 1,000 mg tablet,soluble 1,000 mg feeding tube BID acetaminophen 325 mg capsule 650 mg feeding tube Q6H PRN (Reason: pain) Atrovent HFA 17 mcg/actuation HFA aerosol inhaler 2 puff INHALATION 4X/DAY bupropion HCl 100 mg Tablet 100 mg G-tube BID ferrous sulfate 325 mg (65 mg iron) tablet 325 mg PO BID insulin glargine [Lantus U-100 Insulin] 100 unit/mL solution 5 unit subcut DAILY insulin lispro 100 unit/mL insulin pen, half-unit 1 sliding scale dose subcut Q6H BiPap See Rx Instructions .ROUTE .COMPLEX Qty: 1 0RF Rx Instructions: BiPAP machine with accompanying hose and mask. Patient is to wear BiPAP at night at a value of 12/6 and 30% FiO2. Patient also can use the machine during the day as needed shortness of breath. Discontinued furosemide [Lasix] 20 mg tablet 20 mg PO QODAY 30 Days Qty: 15 2RF doxycycline monohydrate 100 mg capsule 100 mg PO BID Qty: 20 0RF Referrals / Follow Up: TAYLOR TAYLOR [employer] [Primary Care Provider, Family Practice] - Within 1 Week Disposition Disposition (needs filled in before D/C Order can be placed): Home Health Service Charges/Coding Visit Charges Inpatient E&M: 64491 Disch Hosp >30min
[2025-10-04 10:01] VITALS: BP 135/69; PULSE 66; RESP 14; TEMP 36.4; O2SAT 100
--- NOTE | 2025-10-04 10:37 | CASEMGMT ---
Discharge Planning DC Summary sent via [facility] to [facility]. Maylin Lang, CANDY Planning Asst.
--- NOTE | 2025-10-04 10:47 | CASEMGMT ---
Addendum entered by Silvina Whiting 10/04/25 11:18: Updated O2 script sent to [facility] via [employer]. Original Note: MIRZA HODGES NOTE: Discharge order is in. Home o2 testing has been completed. Pt qualifies for O2 @ 4 L/M @ rest (pt's baseline) & now 5 L/M w/exertion. Discharge plan has been updated. Pt to resume w/[facility] @ dc. [facility] assistant, to notify them pt is discharging home today. MIRZA HODGES to room. Pt resting in bed. She states feels ready to discharge today, stating her daughter will be taking her home. She would like her daughter present when discharge instructions are reviewed. RNAni, made aware. Pt has portable O2 tank in her room to dc home on. She was made aware she is now to 4 L/M @ rest and 5 L/M w/exertion and voices understanding. She denies having any further discharge needs or concerns. Suzette CONDEN MIRZA HODGES
[2025-10-04] MEDS: Glucerna Shake 120 ML LIQUID PO (10:52)
--- NOTE | 2025-10-04 11:40 | PHA.DC.MC.R ---
Pharmacy [facility] Counseling Pharmacy Service has performed discharge medication reconciliation and counseling for this patient. The patient's discharge medication list was reviewed for discrepancies and discrepancies were resolved. The patient was counseled on the following discharge medications and changes in medications for homegoing were reviewed. The Reason for Use, instructions for use, and potential side effects were reviewed for all new medications. The patient's questions regarding all of their medications were answered. 1. Furosemide 40 mg PO daily 2. Guaifenesin 1200 mg PO BID The patient was able to verbally demonstrate an understanding of their discharge medications. Medications at Discharge Home Medications cyanocobalamin (vitamin B-12) 1,000 mcg tablet (Vitamin B-12) 1,000 mg PO DAILY supplement 12/27/16 lovastatin 40 mg tablet 40 mg PO QHS cholesterol 12/27/16 montelukast 10 mg tablet 10 mg PO DAILY allergies 12/27/16 trazodone 150 mg tablet 150 mg PO QHS insomnia 12/27/16 albuterol sulfate 90 mcg/actuation aerosol inhaler (Ventolin HFA) 1 - 2 puff inhalation Q4H PRN PRN Sob &/Or Wheezing ##1 12/30/16 pioglitazone 30 mg tablet 30 mg PO DAILY@0800 diabetes 01/26/22 aripiprazole 10 mg tablet 10 mg PO DAILY mood 02/29/24 esomeprazole magnesium 40 mg capsule,delayed release 40 mg PO DAILY acid reflux 02/29/24 losartan 50 mg tablet 50 mg PO DAILY #30 tabs 03/03/24 cholecalciferol (vitamin D3) 125 mcg (5,000 unit) capsule 125 mcg PO DAILY supplement 07/23/25 IV with Additives 40 mls/hr GT 08/05/25 amiodarone 200 mg tablet 200 mg G-tube BID 30 days #60 tabs 08/05/25 apixaban 5 mg tablet (Eliquis) 5 mg G-tube BID 30 days #60 tabs 08/05/25 metoprolol tartrate 50 mg tablet 50 mg G-tube BID 30 days #60 tabs 08/05/25 acetaminophen 325 mg capsule 650 mg feeding tube Q6H PRN pain 08/19/25 bupropion HCl 100 mg tablet 100 mg G-tube BID mood 08/19/25 ipratropium bromide 17 mcg/actuation HFA aerosol inhaler (Atrovent HFA) 2 puff inhalation 4X/DAY inhaler 08/19/25 sodium chloride 1,000 mg soluble tablet 1,000 mg feeding tube BID supplement 08/19/25 BiPap See Rx Instructions .Route .COMPLEX #1 device 08/23/25 ferrous sulfate 325 mg (65 mg iron) tablet 325 mg PO BID supplement 08/23/25 insulin glargine 100 unit/mL subcutaneous solution (Lantus U-100 Insulin) 5 unit subcut DAILY insulin 08/23/25 insulin lispro 100 unit/mL subcutaneous half-unit pen 1 sliding scale dose subcut Q6H insulin 08/23/25 aripiprazole 10 mg tablet (Abilify) 10 mg PO DAILY mood 09/22/25 OXYGEN - Supplemental ([facility] INFORMATIONAL USE ONLY) hypoxia 09/24/25 furosemide 40 mg tablet 40 mg PO DAILY #60 tabs 10/04/25 guaifenesin 1,200 mg tablet, extended release 12 hr (Mucus Relief ER) 1,200 mg PO BID #30 tabs 10/04/25
== END 2025-10-04 12:30 | disposition home health service (06) | DRG 189 ==
LOC: ED 16:50 → PCU 20:45
PROVIDERS: Surgery; Admitting Provider Family Medicine; Emergency Provider Emergency Medicine; PCP Nurse Practitioner Family; Visit Provider Internal Medicine
DX: J96.21 Acute and chronic respiratory failure with hypoxia (principal); I50.33 Acute on chronic diastolic (congestive) heart failure; L97.929 Non-pressure chronic ulcer of unspecified part of left lower leg with unspecified severity; J90 Pleural effusion, not elsewhere classified; I13.0 Hypertensive heart and chronic kidney disease with heart failure and stage 1 through stage 4 chronic kidney disease, or unspecified chronic kidney disease; N30.00 Acute cystitis without hematuria; D63.8 Anemia in other chronic diseases classified elsewhere; E11.22 Type 2 diabetes mellitus with diabetic chronic kidney disease; N18.30 Chronic kidney disease, stage 3 unspecified; J43.9 Emphysema, unspecified; F32.A Depression, unspecified; I48.0 Paroxysmal atrial fibrillation; D50.9 Iron deficiency anemia, unspecified; E11.649 Type 2 diabetes mellitus with hypoglycemia without coma; E87.5 Hyperkalemia; E78.5 Hyperlipidemia, unspecified; G47.33 Obstructive sleep apnea (adult) (pediatric); J30.9 Allergic rhinitis, unspecified; Z79.4 Long term (current) use of insulin; K21.9 Gastro-esophageal reflux disease without esophagitis; F41.9 Anxiety disorder, unspecified; E11.622 Type 2 diabetes mellitus with other skin ulcer; B96.20 Unspecified Escherichia coli [E. coli] as the cause of diseases classified elsewhere; Z87.891 Personal history of nicotine dependence; Z86.73 Personal history of transient ischemic attack (TIA), and cerebral infarction without residual deficits; Z79.51 Long term (current) use of inhaled steroids; Z79.899 Other long term (current) drug therapy; Z79.01 Long term (current) use of anticoagulants
CPT/HCPCS: 11043; 32555; 36415; 71046; 71250; 73590; 73610; 80048; 80053; 81001; 82945; 82947; 82962; 83615; 83735; 83880; 84100; 84443; 85025; 85027; 85652; 86140; 87070; 87075; 87077; 87086; 87088; 87186; 87205; 88108; 88305; 88313; 89050; 94640; 94668; 94762; 97116; 97162; 97164; 97166; 97168; 97530; 97535; 97802; 97803; 99213; 99285; P9612; Q9967; A4216; G0463; J0612; J1938; J2405